=== PATIENT | female | born 1955 | race Two or more races ===

== ENCOUNTER 2024-12-07 12:51 | Inpatient (IN) | payer MEDICARE, MEDICAID, SELFPAY ==
[2024-12-07] VITALS (9 sets, daily range): BP systolic 133–169; BP diastolic 74–96; PULSE 74–108; RESP 17–24; TEMP 36.2–36.8; O2SAT 92–96
--- NOTE | 2024-12-07 13:01 | EKG_ITS ---
[facility] (Formerly [facility]) Test Date: 2024-12-07 Pat Name: ORESTES YEPEZ Department: Room: - Gender: Female Pediatric Physical Therapist: : 1955 Requested By: José Miguel العراقي Order Number: [id number] Reading MD: José Miguel العراقي Measurements Intervals Dexter Rate: 96 P: 35 IA: 149 QRS: 15 QRSD: 80 T: 29 QT: 346 QTc: 439 Interpretive Statements SINUS RHYTHM No previous ECG available for comparison /store/S0/[id number]/ecg/[id number].pdf
--- NOTE | 2024-12-07 13:01 | XR_ITS ---
Examination: AP chest single view Technique: AP portable semiupright chest single view Date and time: December 07, 2024 1325 hrs. Comparison November 24, 2024 Indications: Shortness of breath coughing beginning 2 days ago. Findings: Mild prominence left ventricle Ectatic thoracic aorta. Minor atelectasis right base. No pneumonia or pulmonary edema Tracheostomy tube tip 5 cm above cele Impression: No pneumonia or pulmonary edema
[2024-12-07] MEDS: SODIUM CHLORIDE 0.9% 1000 ML 1,000 ML 100 ML IV (13:11)
[2024-12-07 13:19] LABS: Basophils % (Auto) 0 % (0-2.5); Eosinophils # (Auto) 0.2 Thou/mm3 (0.0-0.5); Eosinophils % (Auto) 2 % (0-10); Hematocrit 31.1 % (36.0-46.0); Hemoglobin 10.7 g/dL (12.0-16.0); Immature Granulocytes % (Auto) 0 % (0-0); Immature Granulocytes Auto 0.02 Thou/mm3 (0.00-0.00); Lymphocytes % (Auto) 23 % (10-50); Mean Corpuscular HGB Conc 34.4 g/dl (31.0-37.0); Mean Corpuscular Hemoglobin 29.2 pg (25.0-35.0); Mean Corpuscular Volume 85 fL (80-100); Monocytes # (Auto) 0.9 Thou/mm3 (0.0-0.8); Monocytes % (Auto) 10 % (0-12); Neutrophils # (Auto) 5.7 Thou/mm3 (1.8-7.7); Neutrophils % (Auto) 65 % (37-80); Nucleated Red Blood Cell % 0 /100 WBC (0); Platelet Count 269 Thou/mm3 (140-440); RDW Standard Deviation 41.2 fL (36.4-46.3); Red Blood Count 3.67 Miln/mm3 (4.00-5.20); White Blood Count 8.8 Thou/mm3 (3.6-11.0)
[2024-12-07] MEDS: TRANEXAMIC ACID 1,000 MG IVPB 1,000 MG/100 ML BAG 200 MG IV ×2 (13:28→16:14)
--- NOTE | 2024-12-07 13:28 | PC.NURSE ---
Verified with Dr. Chappell to give Tranexamic now not as a PRN for trach bleed.
[2024-12-07 13:29] LABS: Partial Thromboplastin Time 21.4 Seconds (22.0-36.0); Prothrombin Time 11.3 Seconds (9.0-12.2)
[2024-12-07 13:30] LABS: Alanine Aminotransferase 40 U/L (10-49); Albumin/Globulin Ratio 1.3 (1.2-2.2); Alkaline Phosphatase 168 U/L (46-116); Anion Gap 8 (7-16); BUN/Creatinine Ratio 30 Ratio (12-20); Bilirubin,Total 0.3 mg/dL (0.3-1.2); Blood Urea Nitrogen 12 mg/dL (9-23); Calcium 9.5 mg/dL (8.3-10.6); Calcium (Corrected) 9.5 mg/dL (8.5-10.1); Carbon Dioxide 29.4 mMol/L (20.0-31.0); Chloride 97 mMol/L (98-107); Creatinine (Component) 0.4 mg/dL (0.6-1.3); Glucose 109 mg/dL (74-106); Osmolality,Calculated 268 (275-295); Potassium 4.3 mMol/L (3.4-5.1); Sodium 134 mMol/L (136-145); Troponin I < 0.020 ng/mL (0.0-0.045); eGFR > 60 See Note
--- NOTE | 2024-12-07 15:14 | PD.EDADULT ---
ED General RME/HPI General Chief complaint: General Adult/Misc Complain Stated complaint: BLEEDING FROM TRACH AREA SINCE LAST NIGHT Time Seen by Provider: 12/07/24 12:56 Arrival date/time: 12/07/24 12:51 Limitations: no limitations RME / HPI RME / HPI narrative: 69 year old female with history of ICH, seizures, hypertension, chronic respiratory failure, s/p tracheostomy and vent dependant, s/p PEG tube presents to the ED brought in by from the subacute unit within this facility for evaluation of bleeding from tracheostomy beginning last night. No other complaints reported. Related Data Home Medications ?Medication ?Instructions ?Recorded ?Confirmed acetaminophen 325 mg tablet 650 mg G-tube Q6HR PRN Pain 11/10/24 12/08/24 albuterol sulfate 90 mcg/actuation 3 puff INH Q4HRRT PRN Shortness Of 11/10/24 12/08/24 aerosol inhaler (Ventolin HFA) Breath Or Wheeze bisacodyl 10 mg rectal suppository 10 mg MN PRN PRN No BM Per Bowel 11/10/24 12/08/24 (Dulcolax (bisacodyl)) Management Protocol carbamide peroxide 6.5 % ear drops 5 drp otic (ear) Q60D 11/10/24 12/08/24 (Ear Wax Removal Drops) carbamide peroxide 6.5 % ear drops 5 drp otic (ear) Q60D 11/10/24 12/08/24 (Ear Wax Removal Drops) carbamide peroxide 6.5 % ear drops 5 drp otic (ear) Q61D 11/10/24 12/08/24 (Ear Wax Removal Drops) carbamide peroxide 6.5 % ear drops 5 drp otic (ear) Q61D 11/10/24 12/08/24 (Ear Wax Removal Drops) carbamide peroxide 6.5 % ear drops 5 drp otic (ear) Q61D 11/10/24 12/08/24 (Ear Wax Removal Drops) carbamide peroxide 6.5 % ear drops 5 drp otic (ear) Q61D 11/10/24 12/08/24 (Ear Wax Removal Drops) carbamide peroxide 6.5 % ear drops 5 drp otic (ear) Q61D 11/10/24 12/08/24 (Ear Wax Removal Drops) esomeprazole magnesium 40 mg 40 mg G-tube DAILY 11/10/24 12/08/24 capsule,delayed release ipratropium bromide 17 3 puff INH Q4HR PRN Shortness Of 11/10/24 12/08/24 mcg/actuation HFA aerosol inhaler Breath Or Wheeze (Atrovent HFA) lorazepam 2 mg/mL injection 2 mg IVP [id number] PRN Seizure 11/10/24 12/08/24 solution Activity losartan 100 mg tablet 100 mg G-tube HS 11/10/24 12/08/24 magnesium hydroxide 400 mg/5 mL 30 ml G-tube PRN PRN No Bowel 11/10/24 12/08/24 oral suspension (Milk of Magnesia) Movement [id number]-vatbqulr-[id number] 1 ea G-tube QDAY 11/10/24 12/08/24 fumarate 7.5 mg-folic acid 400 mcg tablet sennosides 8.6 mg tablet (Senna 17.2 mg G-tube HS 11/10/24 12/08/24 Laxative) sodium chloride 1,000 mg soluble 1,000 mg G-tube BID 11/10/24 12/08/24 tablet sodium di- and 250 mg G-tube QDAY 11/10/24 12/08/24 monophosphate-potassium phos monobasic 250 mg tablet (Phospha Neutral) sodium phosphates 19 gram-7 133 ml MN PER ORDER PRN Bowel 11/10/24 12/08/24 gram/118 mL enema (Fleet Enema) Management Proocol Previous Rx's ?Medication ?Instructions ?Recorded gentamicin 0.3 % eye drops 1 drp ophthalmic (eye) QID 11/22/24 irritation vs infection 30 days albuterol sulfate 2.5 mg/3 mL 2.5 mg (3 mL) INH Q8HRRT 365 days 11/30/24 (0.083 %) solution for nebulization #1,128 mL Allergies Allergy/AdvReac Type Severity Reaction Status Date / Time No Known Allergies Allergy Verified 10/04/20 09:14 Review of Systems Review of Systems ROS Unobtainable: unobtainable due to medical condition Past Medical History Past Medical History NEUROLOGIC: Positive Neurological Disorders, Cerebrovascular Accident and Seizures CARDIAC: Positive Cardiac Disorders and Hypertension GASTROINTESTINAL: Positive Gastrointestinal Disorders and Gastroesophageal Reflux Disease MUSCULOSKELETAL: Positive Musculoskeletal Disorders ENT: Positive Ear Infection (left otitis externa and mild left otitis media) OTHER HISTORY: Positive Hospitalization Surgical History SURGICAL: Positive Abdominal Surgery and Tracheostomy Social History SMOKING STATUS: Never smoker SECOND HAND EXPOSURE: No ED Exam General Limitations: Present no limitations General appearance: Present other (chronically ill appearing, contracted) Head Head exam: Present atraumatic, normocephalic and normal inspection Eye Eye exam: Present normal appearance, PERRL and EOMI ENT ENT exam: Present normal exam, normal oropharynx and mucous membranes moist Neck Neck exam: Present full ROM and other (tracheostomy in place ) Chest Chest inspection: Present normal inspection and symmetric chest wall rise Respiratory Respiratory exam: Present normal lung sounds bilaterally Cardiovascular Cardiovascular exam: Present regular rate, normal rhythm and normal heart sounds Abdominal Exam Abdominal exam: Present soft, normal bowel sounds and other (PEG in place ) Extremities Exam Extremities exam: Present other (contracted ) Back Exam Back exam: Present normal inspection and full ROM Skin Skin exam: Present warm, dry, intact and normal color Course Quality Measures none Orders Category Date Time Status COVID-19 Screening Questionnaire NOW Care 12/07/24 16:48 Active Superintendent Logging NOW Care 12/07/24 13:01 Active Continuous Pulse Oximetry NOW Care 12/07/24 13:01 Completed Decision to Admit X1 Care 12/07/24 16:48 Completed EKG (ED ONLY) *Do not use* NOW Care 12/07/24 13:01 Completed Insert IV NOW Care 12/07/24 13:01 Active Consult to Pulmonology Stat Cons 12/07/24 16:48 Ordered Referral Respiratory Therapy Stat Cons 12/07/24 13:01 Active EKG (ED Only) Stat Exams 12/07/24 13:01 Draft XR chest 1V portable Stat Exams 12/07/24 13:01 Completed CBC Stat Lab 12/07/24 13:00 Completed Comprehensive Metabolic Panel Stat Lab 12/07/24 13:00 Completed Partial Thromboplastin Time Stat Lab 12/07/24 13:00 Completed Prothrombin Time with INR Stat Lab 12/07/24 13:00 Completed Troponin I Stat Lab 12/07/24 13:00 Completed Urinalysis Stat Lab 12/07/24 17:45 Completed Sodium Chloride 0.9% 1000 ml [Ns] 1,000 ml Med 12/07/24 13:01 Discontinued IV 100 mls/hr Tranexamic Acid 1,000 mg Ivpb [Tranexamic Acid Ivpb] Med 12/07/24 13:02 Discontinued 1,000 mg in 100 ml IV [id number] Oxygen Delivery NOW RT 12/07/24 13:01 Active Vital Signs Vital signs: Vital Signs Temperature 97.9 F 12/07/24 12:53 Pulse Rate 108 H 12/07/24 12:53 Respiratory Rate 20 12/07/24 12:53 Blood Pressure 148/90 H 12/07/24 12:53 Pulse Oximetry (%) 95 12/07/24 12:53 Oxygen Delivery Method Blow-by 12/07/24 12:53 Critical Care Time Critical Care Time Critical Care Time: Yes Total Critical Care Time (min.): 60 Attestation: The high probability of sudden, clinically significant deterioration in the patient's condition required the highest level of my preparedness to intervene urgently. The services I provided to this patient were to treat and/or prevent clinically significant deterioration. Services included the following: chart data review, reviewing nursing notes and/or old charts, documentation time, clinical documentation consultant collaboration regarding findings and treatment options, medication orders and management, direct patient care, vital sign assessments and ordering, interpreting and reviewing diagnostic studies and lab tests. Aggregate critical care time includes only time during which I was engaged in work directly related to the patient's care, as described above, whether at bedside or elsewhere in the Emergency Department. It did not include time spent performing other reported procedures or the services of residents, students, nurses or physician assistants. Discharge Plan Plan Patient Disposition: Admit Acute Care w/in Hospital Problem List Clinical Impression: Hemoptysis, Chronic respiratory failure requiring continuous mechanical ventilation through tracheostomy [facility] Narrative [facility] hospital course: IMireya am scribing for and in the presence of Dr. Chappell. Clinical Information Provided by other: History obtained by nursing staff at [facility] Medical Records Reviewed [facility] (I reviewed progress note from Dr. Kenney at 12/03/2024 ) Meds/Rx Considered, not Ordered None Labs/Rad/Tests considered, not Ordered None Chronic Illness/Social Conditions which may negatively complicate care or outcome(s)-explain: Cognitively impaired and senior care/debilitated EKG Interpretation EKG #1: Date/time of EK12/07/24 13:59 EKG interpretation: Sinus rhythm, rate 96, no STEMI, MN 149ms, QRS 80ms, QT/QTc 346/400ms. Lab Interpretation Labs: interpreted by nc Lab(s) interpretation(s): No leukocytosis Imaging Imaging interpretation: interpreted by nc Radiology reports / interpretation(s): Ordering Physician: José Miguel Chappell MD Date of Service: 12/07/24 Procedure(s): XR chest 1V portable Accession Number(s): [id number] cc: José Miguel Chappell MD; Jose Antonio Proctor MD~ Examination: AP chest single view Technique: AP portable semiupright chest single view Date and time: December 07, 2024 1325 hrs. Comparison November 24, 2024 Indications: Shortness of breath coughing beginning 2 days ago. Findings: Mild prominence left ventricle Ectatic thoracic aorta. Minor atelectasis right base. No pneumonia or pulmonary edema Tracheostomy tube tip 5 cm above cele Impression: No pneumonia or pulmonary edema Dictated By: Jose Antonio Proctor MD Signed By: <Electronically signed by Jose Antonio Proctor MD in OV> 12/07/24 1524 Medication Administration(s) Medication Administration History Clotrimazole (Clotrimazole Cr 1% 30 Gm Tube) 0 gm TOP BID PENDING SALE TO [facility] Stop: 01/06/25 20:59 Last Admin: 12/08/24 08:11 Dose: 1 appln Documented By: Admin: 12/07/24 21:13 Dose: 1 gram Documented By: BD Comments: MULTI USE TOPICAL CREAM Sodium Chloride (Ns) 1,000 mls @ 75 mls/hr IV .[id number] POLLO Stop: 01/06/25 17:20 Last Admin: 12/08/24 02:16 Dose: 75 mls/hr Documented By: [facility] Admin: 12/07/24 21:09 Dose: Not Given Documented By: BD Non-Admin Reason: Duplicate Medication on eMAR Fluconazole (Diflucan/Ns Ivpb) 200 mg in 100 mls @ 100 mls/hr IV QDAY POLLO Stop: 12/14/24 17:21 Last Admin: 12/08/24 08:10 Dose: 100 mls/hr Documented By: Infusion: 12/07/24 21:08 Dose: Infused Documented By: Admin: 12/07/24 19:49 Dose: 100 mls/hr Documented By: BD Lorazepam (Lorazepam 2 Mg/Ml Vial) 2 mg IVP Q5MIN PRN PRN Reason: Seizure Activity Stop: 12/12/24 17:32 Losartan Potassium (Losartan Potassium 25 Mg Tablet) 100 mg GT DAILY PENDING SALE TO [facility] Stop: 01/06/25 17:29 Last Admin: 12/08/24 08:10 Dose: 100 mg Documented By: Admin: 12/07/24 19:49 Dose: 100 mg Documented By: BD Moxifloxacin HCl (Moxifloxacin Op Day 0.5% 3 Ml Btl) 1 drop BOTH EYES QID PENDING SALE TO [facility] Stop: 01/06/25 20:59 Last Admin: 12/08/24 05:06 Dose: 1 drop Documented By: Admin: 12/07/24 21:12 Dose: 1 drop Documented By: GUY Pantoprazole Sodium (Pantoprazole Inj 40 Mg Vial) 40 mg IVP QDAY PENDING SALE TO [facility] Stop: 01/07/25 08:59 Last Admin: 12/08/24 08:10 Dose: 40 mg Documented By: DEBRA Discontinued Medications Tranexamic Acid (Tranexamic Acid Ivpb) 1,000 mg in 100 mls @ 200 mls/hr IV PRNMRX1 PRN PRN Reason: BLEEDING Last Infusion: 12/07/24 16:44 Dose: Infused Documented By: Admin: 12/07/24 16:14 Dose: 200 mls/hr Documented By: Infusion: 12/07/24 15:27 Dose: Infused Documented By: Admin: 12/07/24 13:28 Dose: 200 mls/hr Documented By: SARKIS Sodium Chloride (Ns) 1,000 mls @ 100 mls/hr IV .Q10H ONE Stop: 12/07/24 23:00 Last Infusion: 12/08/24 02:21 Dose: Infused Documented By: Infusion: 12/07/24 19:37 Dose: 75 mls/hr Documented By: Admin: 12/07/24 13:11 Dose: 100 mls/hr Documented By: SARKIS See above Consultations/Discussions re: Management Consult #1: Date/time: 12/07/24 4:43 pm Physician, specialty, service, details: I spoke with link knitting machine operator Dr. Mullins. Discussed patients PMHx, HPI, ED course, exam findings, labs, and radiology results. States she will perform a bronchoscopy tomorrow and agrees to consult. Consult #2: Date/time: 12/07/24 4:48 pm Physician, specialty, service, details: I spoke with resident working with Dr. Rey. Discussed patients PMHx, HPI, ED course, exam findings, labs, and radiology results. The hospitalist agree to accept the patient for admission. Diagnosis Most likely dx, and/or detailed dx discussion: Hemoptysis Chronic respiratory failure Trach with ventilator dependance Dispositon Disposition: Admit
--- NOTE | 2024-12-07 16:17 | PC.NURSE ---
Verified with pharmacy and Dr. Chappell patient okay to receive second gram of Tranexamic for PRN order. Patient still having some bleeding to trach.
--- NOTE | 2024-12-07 17:29 | PD.RESHP ---
Documentation for date of: 12/07/24 HPI History of Present Illness History of present illness: 65-year-old female with past medical history of seizures, intracerebral hemorrhage, chronic respiratory failure s/p trach & PEG, hypertension who was brought to the ED from subacute facility after intermittent bleeding was noted through tracheostomy since yesterday. Today blood amount increased so she was brought to the ED. ED course: On arrival patients BP: 148/90, HR 108, Rest of vitals within normal limits. Patient's baseline hemoglobin appears to be around 13, today 10.7. Rest unremarkable. While on the ED patient had 100 cc of blood suctioned. She received 2gr of TXA and 1L NS. ED consulted auto wash buffer Dr Mullins, who recommended bronchoscopy tomorrow. Review of Systems Review of Systems ROS Unobtainable: unobtainable due to mental status Exam Vital Signs Temp Pulse Resp BP Pulse Ox O2 Del Method O2 Flow Rate 97.8 F 78 18 165/96 H 92 L Blow-by 8 12/07/24 15:04 12/07/24 16:19 12/07/24 16:19 12/07/24 15:04 12/07/24 16:19 12/07/24 13:00 12/07/24 16:19 FiO2 30 12/07/24 16:19 Narrative Exam GENERAL:Contracted, chronically ill appearing, trach/peg, in no acute distress HEENT: Normocephalic, edentulous, Entropion OD, OU conjunctival erythema and purulent discharge, OU cornal opacity NECK: Supple without adenopathy. Tracheostomy tube in place blood noted. Nontender, carotid pulse 2+ bilaterally without bruits, no JVD.? CHEST: Heart rate and rythm normal, no murmurs, gallops auscultated. S1 & 2 normal insensity. Nontender on palpation, no deformity and no crepitus. LUNGS: Coarse breath sounds bilaterally. No intercostal subcostal retraction. Blow by ABDOMEN: Soft,symmetric ,Gastric tube in place. No abnormal masses palpated.? No pulsatile masses or bruits.? Bowel sounds are normoactive in all 4 quadrants. EXTREMITIES: Contracted SKIN: erythematous rash noted on right nsolabial fold Results: Labs 12/08/24 05:15 12/08/24 05:15 Labs: Short CBC 12/07/24 Range/Units 13:00 WBC 8.8 (3.6-11.0) Thou/mm3 Hgb 10.7 L (12.0-16.0) g/dL Hct 31.1 L (36.0-46.0) % Plt Count 269 D (140-440) Thou/mm3 BMP 12/07/24 13:00 Sodium 134 L Potassium 4.3 Chloride 97 L Carbon Dioxide 29.4 BUN 12 Creatinine 0.4 L Glucose 109 H Calcium 9.5 Cardiac Enzymes 12/07/24 Range/Units 13:00 Troponin I < 0.020 (0.0-0.045) ng/mL Liver Function 12/07/24 Range/Units 13:00 Total Bilirubin 0.3 (0.3-1.2) mg/dL ALT 40 (10-49) U/L Alkaline Phosphatase 168 H (46-116) U/L Albumin 4.0 (3.4-4.8) gm/dL Quality Measures Quality Measures none Advance care planning discussed with:: other Medications Home Medications and Allergies Home Medications ?Medication ?Instructions ?Recorded ?Confirmed ?Type acetaminophen 325 mg tablet 650 mg G-tube Q6HR PRN Pain 11/10/24 12/08/24 History albuterol sulfate 90 mcg/actuation 3 puff INH Q4HRRT PRN Shortness Of 11/10/24 12/08/24 History aerosol inhaler (Ventolin HFA) Breath Or Wheeze bisacodyl 10 mg rectal suppository 10 mg MI PRN PRN No BM Per Bowel 11/10/24 12/08/24 History (Dulcolax (bisacodyl)) Management Protocol carbamide peroxide 6.5 % ear drops 5 drp otic (ear) Q60D 11/10/24 12/08/24 History (Ear Wax Removal Drops) carbamide peroxide 6.5 % ear drops 5 drp otic (ear) Q60D 11/10/24 12/08/24 History (Ear Wax Removal Drops) carbamide peroxide 6.5 % ear drops 5 drp otic (ear) Q61D 11/10/24 12/08/24 History (Ear Wax Removal Drops) carbamide peroxide 6.5 % ear drops 5 drp otic (ear) Q61D 11/10/24 12/08/24 History (Ear Wax Removal Drops) carbamide peroxide 6.5 % ear drops 5 drp otic (ear) Q61D 11/10/24 12/08/24 History (Ear Wax Removal Drops) carbamide peroxide 6.5 % ear drops 5 drp otic (ear) Q61D 11/10/24 12/08/24 History (Ear Wax Removal Drops) carbamide peroxide 6.5 % ear drops 5 drp otic (ear) Q61D 11/10/24 12/08/24 History (Ear Wax Removal Drops) esomeprazole magnesium 40 mg 40 mg G-tube DAILY 11/10/24 12/08/24 History capsule,delayed release ipratropium bromide 17 3 puff INH Q4HR PRN Shortness Of 11/10/24 12/08/24 History mcg/actuation HFA aerosol inhaler Breath Or Wheeze (Atrovent HFA) lorazepam 2 mg/mL injection 2 mg IVP PRNMRX1 PRN Seizure 11/10/24 12/08/24 History solution Activity losartan 100 mg tablet 100 mg G-tube HS 11/10/24 12/08/24 History magnesium hydroxide 400 mg/5 mL 30 ml G-tube PRN PRN No Bowel 11/10/24 12/08/24 History oral suspension (Milk of Magnesia) Movement vyzdazhnlkzy-ehuwcwyd-hzdj 1 ea G-tube QDAY 11/10/24 12/08/24 History fumarate 7.5 mg-folic acid 400 mcg tablet sennosides 8.6 mg tablet (Senna 17.2 mg G-tube HS 11/10/24 12/08/24 History Laxative) sodium chloride 1,000 mg soluble 1,000 mg G-tube BID 11/10/24 12/08/24 History tablet sodium di- and 250 mg G-tube QDAY 11/10/24 12/08/24 History monophosphate-potassium phos monobasic 250 mg tablet (Phospha Neutral) sodium phosphates 19 gram-7 133 ml MI PER ORDER PRN Bowel 11/10/24 12/08/24 History gram/118 mL enema (Fleet Enema) Management Proocol Allergies Allergy/AdvReac Type Severity Reaction Status Date / Time No Known Allergies Allergy Verified 10/04/20 09:14 Visit Medications Clotrimazole (Clotrimazole Cr 1% 30 Gm Tube) 0 gm TOP BID POLLO Stop: 01/06/25 20:59 Sodium Chloride (Ns) 1,000 mls @ 75 mls/hr IV .[id number] POLLO Stop: 01/06/25 17:20 Fluconazole (Diflucan/Ns Ivpb) 200 mg in 100 mls @ 100 mls/hr IV QDAY POLLO Stop: 12/14/24 17:21 Losartan Potassium (Losartan Potassium 25 Mg Tablet) 100 mg GT DAILY POLLO Stop: 01/06/25 17:29 Moxifloxacin HCl (Moxifloxacin Op Day 0.5% 3 Ml Btl) 1 drop BOTH EYES QID POLLO Stop: 01/06/25 20:59 Pantoprazole Sodium (Pantoprazole Inj 40 Mg Vial) 40 mg IVP QDAY POLLO Stop: 01/07/25 08:59 Discontinued Medications Tranexamic Acid (Tranexamic Acid Ivpb) 1,000 mg in 100 mls @ 200 mls/hr IV [id number] PRN PRN Reason: BLEEDING Last Infusion: 12/07/24 16:44 Dose: Infused Sodium Chloride (Ns) 1,000 mls @ 100 mls/hr IV .Q10H ONE Stop: 12/07/24 23:00 Last Admin: 12/07/24 13:11 Dose: 100 mls/hr Assessment & Plan Plan 65-year-old female with past medical history of seizures, intracerebral hemorrhage, chronic respiratory failure s/p trach & PEG, hypertension who was brought to the ED from subacute facility after intermittent bleeding was noted through tracheostomy since yesterday. Today blood amount increased so she was brought to the ED. ED course: On arrival patients BP: 148/90, HR 108, Rest of vitals within normal limits. Patient's baseline hemoglobin appears to be around 13, today 10.7. Rest unremarkable. While on the ED patient had 100 cc of blood suctioned. She received 2gr of TXA and 1L NS. ED consulted auto wash buffer Dr Mullins, who recommended bronchoscopy tomorrow. #Acute blood loss anemia #Bleeding through tracheostomy -Patient's baseline hemoglobin appears to be 13 (last august 2024), today 10.7 -Intermittent bleeding noted through tracheostomy -100 cc drainage while on the ED -Source unclear at this time -While on the ED, patient received 2gr TXA + 1L NS -ED consulted auto wash buffer Dr Mullins, who recommended bronchoscopy tomorrow #OU conjunctival erythema and purulent discharge #OD entroprion -Moxifloxacin OU QID #Facial fungal dermatitis -On nasolabial fold -Topical clotrimazole -IV Fluconazole 200 daily #Hypertension -Resumed patients losartan 100 mg daily GT #History of seizures -Only medication on file is lorazepam prn, we will obtain further records to clarify if patient is on antiseizure medications or just PRN Disposition: Patient admitted to telemetry fro management of acute blood loss anemia, bleeding though tracheostomy Diet and fluids:NPO. NS 75 cc/hr DVT prophylaxis:Holding chemical prophylaxis in the setting of acute blood loss GI prophylaxis:Pantoprazole CODE STATUS:FULL CODE Burt:N/A Lines:Peripheral Patient's care discussed with attending physician, Dr Krissy Sandoval MD PGY3 Attending Provider Attestation/Addendum I attest that I was physically present for the evaluation, physical examination, lab and imaging review of the patient with the residents. I discussed the case with the residents and agree with the findings and plans of care as documented above. Patient is a seizure, intracranial hemorrhage, chronic respiratory failure status post tracheostomy and PEG tube, hypertension who presented to the ED from subacute facility after having bleeding from tracheostomy site. In the ED, patient was mildly hypertensive, tachycardic but rest of the vitals were within normal limits. Saturating well on blow-by. She received 2 g of tranexamic acid and 1 L normal saline in the ED. suctioning was done, which had 100 cc of blood produced. On exam contracted, had blood-tinged fluid suctioned from the tracheostomy tube to low intermittent suction. Noted to have erythema and scaling around her face. ED had consulted with the auto wash buffer, who plans to perform bronchoscopy tomorrow. After examination of the patient and review of the clinical data I feel that this patient needs admission to the hospital for further treatment/evaluation of bleeding from the tracheostomy site, anemia. Stevan Rey MD
[2024-12-07 18:43] LABS: Collection Type, Urine Clean Catch; Squamous Epithelial Cell,Urine 0 /hpf (0-5)
[2024-12-07 18:54] LABS: Bacteria,Urine 2+; Bilirubin,Urine Negative (Negative); Blood,Urine Negative (Negative); Clarity,Urine Clear (Clear/Hazy); Color,Urine Lt-Yellow (Lt Yel-Yel); Glucose, Urine Negative (Negative); Ketones,Urine Negative (Negative); Leukocyte Esterase,Urine Positive (Negative); Nitrite,Urine Negative (Negative); PH,Urine 7.5 (5.0-7.0); Protein,Urine Negative (Neg - Trace); RBC,Urine 1 /hpf (0-3); Specific Gravity,Urine 1.011 (1.001-1.035); Urobilinogen,Urine Negative mg/dL (0.0-1.0); WBC,Urine 21 /hpf (0-5)
[2024-12-07] MEDS: LOSARTAN POTASSIUM 25 MG TABLET 100 MG GT (19:49)
[2024-12-07] MEDS: FLUCONAZOLE/NS 200 MG IVPB 200 MG/100 ML BAG 100 MG IV (19:49)
[2024-12-07] MEDS: MOXIFLOXACIN OP SOL 0.5% 3 ML BTL 1 DROP BOTH EYES (21:12)
[2024-12-07] MEDS: CLOTRIMAZOLE CR 1% 30 GM TUBE TOP (21:13)
[2024-12-08] VITALS (67 sets, daily range): BP systolic 101–180; BP diastolic 69–110; PULSE 71–143; RESP 16–150; TEMP 36–37.1; O2SAT 73–100; BMI 25.2
[2024-12-08] MEDS: SODIUM CHLORIDE 0.9% 1000 ML 1,000 ML 75 ML IV ×2 (02:16→17:42)
[2024-12-08] MEDS: MOXIFLOXACIN OP SOL 0.5% 3 ML BTL 1 DROP BOTH EYES ×4 (05:06→21:32)
[2024-12-08 05:53] LABS: Basophils % (Auto) 0 % (0-2.5); Eosinophils # (Auto) 0.1 Thou/mm3 (0.0-0.5); Eosinophils % (Auto) 2 % (0-10); Hematocrit 31.6 % (36.0-46.0); Hemoglobin 10.9 g/dL (12.0-16.0); Immature Granulocytes % (Auto) 0 % (0-0); Lymphocytes # (Auto) 1.4 Thou/mm3 (1.0-4.8); Lymphocytes % (Auto) 19 % (10-50); Mean Corpuscular HGB Conc 34.5 g/dl (31.0-37.0); Mean Corpuscular Hemoglobin 29.3 pg (25.0-35.0); Mean Corpuscular Volume 85 fL (80-100); Monocytes # (Auto) 0.7 Thou/mm3 (0.0-0.8); Monocytes % (Auto) 9 % (0-12); Neutrophils # (Auto) 5.2 Thou/mm3 (1.8-7.7); Neutrophils % (Auto) 70 % (37-80); Nucleated Red Blood Cell % 0 /100 WBC (0); Platelet Count 324 Thou/mm3 (140-440); RDW Standard Deviation 41.7 fL (36.4-46.3); Red Blood Count 3.72 Miln/mm3 (4.00-5.20); White Blood Count 7.5 Thou/mm3 (3.6-11.0)
[2024-12-08 06:21] LABS: Anion Gap 7 (7-16); BUN/Creatinine Ratio 20 Ratio (12-20); Blood Urea Nitrogen 8 mg/dL (9-23); Calcium 9.2 mg/dL (8.3-10.6); Carbon Dioxide 26.9 mMol/L (20.0-31.0); Chloride 97 mMol/L (98-107); Creatinine (Component) 0.4 mg/dL (0.6-1.3); Glucose 96 mg/dL (74-106); Magnesium 1.8 mg/dL (1.6-2.6); Osmolality,Calculated 260 (275-295); Phosphorous 3.3 mg/dL (2.4-5.1); Potassium 4.1 mMol/L (3.4-5.1); Sodium 131 mMol/L (136-145); Thyroid Stimulating Hormone 1.12 uIU/mL (0.55-4.78); eGFR > 60 See Note
[2024-12-08] MEDS: FLUCONAZOLE/NS 200 MG IVPB 200 MG/100 ML BAG 100 MG IV (08:10)
[2024-12-08] MEDS: LOSARTAN POTASSIUM 25 MG TABLET 100 MG GT (08:10)
[2024-12-08] MEDS: PANTOPRAZOLE INJ 40 MG VIAL IVP (08:10)
[2024-12-08] MEDS: CLOTRIMAZOLE CR 1% 30 GM TUBE TOP ×2 (08:11→21:33)
--- NOTE | 2024-12-08 09:44 | PD.RESPRO ---
Documentation for date of: 12/08/24 Subjective Subjective Interval history: No acute overnight events reported. Patient seen and examined at bedside this morning. Per daughter patient had a hemorrhagic stroke in 2012 which resulted in patient to be vent dependent and has been at [facility] subacute since 2012, per daughter patient was able to communicate and participate in activities at the subacute however late 2023 patient meningitis and since August 2024 patient is no longer able to communicate or respond to verbal stimuli. Patient underwent bronchoscopy which showed friable mucosa and large areas of submucosal hemorrhage and the bleeding stopped with cold saline. Morning labs showed sodium of 131 however patient's tube feeds were on hold due to scheduled bronchoscopy, will resume tube feeds and continue to monitor labs. Patient's daughter is at bedside and is updated with current management and plan. Patient will likely be discharged back to subacute tomorrow. Exam Vital Signs Temp Pulse Resp BP Pulse Ox O2 Del Method O2 Flow Rate 97.2 F 80 23 H 156/97 H 98 Blow-by 8 12/08/24 08:00 12/08/24 08:10 12/08/24 08:00 12/08/24 08:10 12/08/24 08:00 12/08/24 08:00 12/08/24 08:00 FiO2 30 12/07/24 18:39 Narrative Exam GENERAL:Contracted, chronically ill appearing, trach/peg, grimaces to painful stimuli only. HEENT: Normocephalic, edentulous, Entropion OD, OU conjunctiva erythema and purulent discharge, OU cornal opacity NECK: Supple without adenopathy. Tracheostomy tube with erythema noted on the skin around the trach tube. Nontender, carotid pulse 2+ bilaterally without bruits, no JVD.? CHEST: Heart rate and rythm normal, no murmurs, gallops auscultated. S1 & 2 normal insensity. Nontender on palpation, no deformity and no crepitus. LUNGS: Coarse breath sounds bilaterally. No intercostal subcostal retraction. Blow by ABDOMEN: Soft,symmetric ,Gastric tube in place. No abnormal masses palpated.? No pulsatile masses or bruits.? Bowel sounds are normoactive in all 4 quadrants. EXTREMITIES: Contracted upper and lower extremities SKIN: erythematous rash noted on right nasolabial fold Objective Labs 12/09/24 04:26 12/09/24 04:26 Labs: Laboratory Results - last 24 hr 12/07/24 12/07/24 12/08/24 13:00 17:45 05:15 WBC 8.8 7.5 RBC 3.67 L 3.72 L Hgb 10.7 L 10.9 L Hct 31.1 L 31.6 L MCV 85 85 MCH 29.2 29.3 MCHC 34.4 34.5 RDW Std Deviation 41.2 41.7 Plt Count 269 D 324 D Neut % (Auto) 65 70 Lymph % (Auto) 23 19 [place] % (Auto) 10 9 Eos % (Auto) 2 2 Baso % (Auto) 0 0 Neut # (Auto) 5.7 5.2 Lymph # (Auto) 2.0 1.4 [place] # (Auto) 0.9 H 0.7 Eos # (Auto) 0.2 0.1 Baso # (Auto) 0.0 0.0 Immature Gran # (Auto) 0.02 H 0.00 Absolute Nucleated RBC 0.00 0.00 Immature Gran % 0 0 Nucleated RBC % 0 0 PT 11.3 INR 1.0 APTT 21.4 L Sodium 134 L 131 L Potassium 4.3 4.1 Chloride 97 L 97 L Carbon Dioxide 29.4 26.9 Anion Gap 8 7 BUN 12 8 L Creatinine 0.4 L 0.4 L Estim Creat Clear Calc Not Performed. Not Performed. eGFR > 60 > 60 BUN/Creatinine Ratio 30 H 20 Glucose 109 H 96 Calculated Osmolality 268 L 260 L Calcium 9.5 9.2 Corrected Calcium 9.5 Phosphorus 3.3 Magnesium 1.8 Total Bilirubin 0.3 ALT 40 Alkaline Phosphatase 168 H Troponin I < 0.020 Total Protein 7.0 Albumin 4.0 Globulin 3.0 Albumin/Globulin Ratio 1.3 TSH 1.12 Ur Collection Type Clean Catch Urine Color Lt-Yellow Urine Clarity Clear Urine pH 7.5 H Ur Specific [place] 1.011 Urine Protein Negative Urine Glucose (UA) Negative Urine Ketones Negative Urine Blood Negative Urine Nitrite Negative Urine Bilirubin Negative Urine Urobilinogen (Auto) Negative Ur Leukocyte Esterase Positive Urine RBC 1 Urine WBC 21 H Ur Squamous Epith Cells 0 Urine Bacteria 2+ A Quality Measures Quality Measures none Advance care planning discussed with:: patient Assessment & Plan Assessment Current Active Medications: Generic Name Dose Route Start Last Admin Trade Name Freq PRN Reason Stop Dose Admin Clotrimazole 0 gm 12/07/24 21:00 12/08/24 08:11 Clotrimazole Cr 1% 30 Gm Tube TOP 01/06/25 20:59 1 appln BID POLLO Administration Sodium Chloride 1,000 mls @ 75 mls/hr 12/07/24 17:21 12/08/24 02:16 Ns IV 01/06/25 17:20 75 mls/hr .[id number] POLLO Administration Fluconazole 200 mg in 100 mls @ 100 mls/hr 12/07/24 17:22 12/08/24 08:10 Diflucan/Ns Ivpb IV 12/14/24 17:21 100 mls/hr QDAY POLLO Administration Lorazepam 2 mg 12/07/24 17:33 Lorazepam 2 Mg/Ml Vial IVP 12/12/24 17:32 Q5MIN PRN Seizure Activity Losartan Potassium 100 mg 12/07/24 17:30 12/08/24 08:10 Losartan Potassium 25 Mg Tablet GT 01/06/25 17:29 100 mg DAILY POLLO Administration Moxifloxacin HCl 1 drop 12/07/24 21:00 12/08/24 05:06 Moxifloxacin Op Day 0.5% 3 Ml Btl BOTH EYES 01/06/25 20:59 1 drop QID POLLO Administration Pantoprazole Sodium 40 mg 12/08/24 09:00 12/08/24 08:10 Pantoprazole Inj 40 Mg Vial IVP 01/07/25 08:59 40 mg QDAY POLLO Administration Plan 65-year-old female with past medical history of seizures, intracerebral hemorrhage, chronic respiratory failure s/p trach & PEG, hypertension who was brought to the ED from subacute facility after intermittent bleeding was noted through tracheostomy since yesterday. Today blood amount increased so she was brought to the ED. ED course: On arrival patients BP: 148/90, HR 108, Rest of vitals within normal limits. Patient's baseline hemoglobin appears to be around 13, today 10.7. Rest unremarkable. While on the ED patient had 100 cc of blood suctioned. She received 2gr of TXA and 1L NS. ED consulted aeronautics commission director Dr Mullins, who recommended bronchoscopy tomorrow. #Acute blood loss anemia #Bleeding through tracheostomy s/p broncoscopy -Patient's baseline hemoglobin appears to be 13 (last august 2024), today 10.7 -Intermittent bleeding noted through tracheostomy, there was 100cc of bloody output in the ED -100 cc drainage while on the ED -Source unclear at this time -While on the ED, patient received 2gr TXA + 1L NS -ED consulted aeronautics commission director Dr Mullins, Patient underwent bronchoscopy on 12/08 which showed friable mucosa with large areas of submucosal hemorrhage. The bleeding was stopped with cold saline. #OU conjunctival erythema and purulent discharge #OD entroprion -Moxifloxacin OU QID #Facial fungal dermatitis -On nasolabial fold -Topical clotrimazole -IV Fluconazole 200 daily #Pyuria #Bacteriuria - Unable to determine if patient is symptomatic or not due to patient's mental status -Will order urine cultures and inform the subacute if positive IV antibiotics can be given in the subacute. #Primary Hypertension -Resumed patients losartan 100 mg daily GT #History of seizures -Only medication on file is lorazepam prn -No record of antiepileptic medications Disposition: Patient admitted to telemetry for management of acute blood loss anemia, bleeding through tracheostomy Diet and fluids: tube feeds resumed DVT prophylaxis:Holding chemical prophylaxis in the setting of acute blood loss GI prophylaxis: Pantoprazole CODE STATUS:FULL CODE Assessment and plan discussed with my attending physician Dr. Krissy Saucedo (PGY-1)- Internal medicine resident Attending Provider Attestation/Addendum I attest that I was physically present for the evaluation, physical examination, lab and imaging review of the patient with the residents. I discussed the case with the residents and agree with the findings and plans of care as documented above. Stevan Rey MD
--- NOTE | 2024-12-08 09:52 | PC.SS ---
Follow up note: Pt is from [facility]. Pt has trach and peg. Dr. Mullins will be consulted. Possible Bronchoscopy.
[2024-12-08] MEDS: MIDAZOLAM INJ 1 MG/ML VIAL 2 ML 2 MG IVP (12:03)
--- NOTE | 2024-12-08 13:08 | ESCONSULT_ITS ---
HPI Data of Consult Patient: new to practice Requesting Physician: Stevan Rey MD Admitting Provider: Stevan Rey MD Attending Provider: Stevan Rey MD Primary Care Provider: Physician No Primary/Family Consult Narrative Reason for consult: bronchoscopy History of present illness: 65-year-old female with past medical history of seizures, intracerebral hemorrhage, chronic respiratory failure s/p trach & PEG, hypertension who was brought to the ED from subacute facility after intermittent bleeding was noted through tracheostomy for the past 2 days. In the ED, on arrival patients BP: 148/90, HR 108, Rest of vitals within normal limits. Patient's baseline hemoglobin appears to be around 13, today 10.7. Rest unremarkable. While on the ED patient had 100 cc of blood suctioned. She received 2gr of TXA and 1L NS. ED consulted tapper helper, who recommended bronchoscopy for today. 12/08/2024: Patient seen and examined. Patient's mentation is at baseline. Patient has tracheostomy in place. Patient is comfortable laying down. ET tube has residual blood. Labs and imaging were reviewed. Scheduled bronchoscopy for today. cc:: cc: Stevan Rey MD Exam Vital Signs Temp Pulse Resp BP Pulse Ox O2 Del Method O2 Flow Rate 96.8 F 76 16 130/96 H 98 Blow-by 11 12/08/24 12:00 12/08/24 12:12/08/24 12:12/08/24 12:00 12/08/24 12:00 12/08/24 12:00 12/08/24 12:00 FiO2 30 12/07/24 18:39 Narrative Exam GENERAL:Contracted, chronically ill appearing, trach/peg, grimaces to painful stimuli only. HEENT: Normocephalic, edentulous, eyelid discharge, OU cornal opacity NECK: Supple without adenopathy. Tracheostomy tube with erythema noted on the skin around the trach tube. Nontender, carotid pulse 2+ bilaterally without bruits, no JVD.? CHEST: Heart rate and rythm normal, no murmurs, gallops auscultated. S1 & 2 normal insensity. Nontender on palpation, no deformity and no crepitus. LUNGS: Coarse breath sounds bilaterally. No intercostal subcostal retraction. Blow by ABDOMEN: Soft,symmetric ,Gastric tube in place. No abnormal masses palpated.? No pulsatile masses or bruits.? Bowel sounds are normoactive in all 4 quadrants. EXTREMITIES: Contracted upper and lower extremities SKIN: erythematous rash noted on right nasolabial fold Results Labs 12/09/24 04:26 12/09/24 04:26 Labs: Short CBC 12/07/24 12/08/24 Range/Units 13:00 05:15 WBC 8.8 7.5 (3.6-11.0) Thou/mm3 Hgb 10.7 L 10.9 L (12.0-16.0) g/dL Hct 31.1 L 31.6 L (36.0-46.0) % Plt Count 269 D 324 D (140-440) Thou/mm3 BMP 12/07/24 12/08/24 13:00 05:15 Sodium 134 L 131 L Potassium 4.3 4.1 Chloride 97 L 97 L Carbon Dioxide 29.4 26.9 BUN 12 8 L Creatinine 0.4 L 0.4 L Glucose 109 H 96 Calcium 9.5 9.2 Cardiac Enzymes 12/07/24 Range/Units 13:00 Troponin I < 0.020 (0.0-0.045) ng/mL Liver Function 12/07/24 Range/Units 13:00 Total Bilirubin 0.3 (0.3-1.2) mg/dL ALT 40 (10-49) U/L Alkaline Phosphatase 168 H (46-116) U/L Albumin 4.0 (3.4-4.8) gm/dL Urine 12/07/24 Range/Units 17:45 Urine Color Lt-Yellow (Lt Yel-Yel) Urine Clarity Clear (Clear/Hazy) Urine pH 7.5 H (5.0-7.0) Ur Specific [place] 1.011 (1.001-1.035) Urine Protein Negative (Neg - Trace) Urine Glucose (UA) Negative (Negative) Quality Measures Quality Measures none Advance care planning discussed with:: other Medications Home Medications and Allergies Home Medications ?Medication ?Instructions ?Recorded ?Confirmed ?Type acetaminophen 325 mg tablet 650 mg G-tube Q6HR PRN Xavier n 11/10/24 12/08/24 History albuterol sulfate 90 mcg/actuation 3 puff INH Q4HRRT P RN Shortness Of 11/10/24 12/08/24 History aerosol inhaler (Ventolin HFA) Breath Or Wheeze bisacodyl 10 mg rectal suppository 10 mg AR PRN PRN No BM Per Bowel 11/10/24 12/08/24 History (Dulcolax (bisacodyl)) Management Protocol carbamide peroxide 6.5 % ear drops 5 drp otic (ear) Q6 0D 11/10/24 12/08/24 History (Ear Wax Removal Drops) carbamide peroxide 6.5 % ear drops 5 drp otic (ear) Q6 0D 11/10/24 12/08/24 History (Ear Wax Removal Drops) carbamide peroxide 6.5 % ear drops 5 drp otic (ear) Q6 1D 11/10/24 12/08/24 History (Ear Wax Removal Drops) carbamide peroxide 6.5 % ear drops 5 drp otic (ear) Q6 1D 11/10/24 12/08/24 History (Ear Wax Removal Drops) carbamide peroxide 6.5 % ear drops 5 drp otic (ear) Q6 1D 11/10/24 12/08/24 History (Ear Wax Removal Drops) carbamide peroxide 6.5 % ear drops 5 drp otic (ear) Q6 1D 11/10/24 12/08/24 History (Ear Wax Removal Drops) carbamide peroxide 6.5 % ear drops 5 drp otic (ear) Q6 1D 11/10/24 12/08/24 History (Ear Wax Removal Drops) esomeprazole magnesium 40 mg 40 mg G-tube DAILY 12/08/24 History capsule,delayed release ipratropium bromide 17 3 puff INH Q4HR PRN Shortnes s Of 11/10/24 12/08/24 History mcg/actuation HFA aerosol inhaler Breath Or Wheeze (Atrovent HFA) lorazepam 2 mg/mL injection 2 mg IVP [id number] PRN Seizu re 11/10/24 12/08/24 History solution Activity losartan 100 mg tablet 100 mg G-tube HS 11/10/24 History magnesium hydroxide 400 mg/5 mL 30 ml G-tube PRN PRN N o Bowel 11/10/24 12/08/24 History oral suspension (Milk of Magnesia) Movement okriggyyklre-kujlbbry-cucl 1 ea G-tube QDAY 11/10/24 0 12/08/24 History fumarate 7.5 mg-folic acid 400 mcg tablet sennosides 8.6 mg tablet (Senna 17.2 mg G-tube HS 10/3012/08/24 History Laxative) sodium chloride 1,000 mg soluble 1,000 mg G-tube BID 0 11/10/24 12/08/24 History tablet sodium di- and 250 mg G-tube QDAY 11/10/24 12/08/24 History monophosphate-potassium phos monobasic 250 mg tablet (Phospha Neutral) sodium phosphates 19 gram-7 133 ml AR PER ORDER PRN Jamie wel 11/10/24 12/08/24 History gram/118 mL enema (Fleet Enema) Management Proocol Allergies Allergy/AdvReac Type Severity Reaction Status Date / Time No Known Allergies Allergy Verified 10/04/20 09:14 Visit Medications Clotrimazole (Clotrimazole Cr 1% 30 Gm Tube) 0 gm TOP BID POLLO Stop: 01/06/25 20:59 Last Admin: 12/08/24 08:11 Dose: 1 appln Sodium Chloride (Ns) 1,000 mls @ 75 mls/hr IV .[id number] POLLO Stop: 01/06/25 17:20 Last Admin: 12/08/24 02:16 Dose: 75 mls/hr Fluconazole (Diflucan/Ns Ivpb) 200 mg in 100 mls @ 100 mls/hr IV QDAY POLLO Stop: 12/14/24 17:21 Last Admin: 12/08/24 08:10 Dose: 100 mls/hr Lorazepam (Lorazepam 2 Mg/Ml Vial) 2 mg IVP Q5MIN PRN PRN Reason: Seizure Activity Stop: 12/12/24 17:32 Losartan Potassium (Losartan Potassium 25 Mg Tablet) 100 mg GT DAILY POLLO Stop: 01/06/25 17:29 Last Admin: 12/08/24 08:10 Dose: 100 mg Moxifloxacin HCl (Moxifloxacin Op Day 0.5% 3 Ml Btl) 1 drop BOTH EYES QID POLLO Stop: 01/06/25 20:59 Last Admin: 12/08/24 12:17 Dose: 1 drop Pantoprazole Sodium (Pantoprazole Inj 40 Mg Vial) 40 mg IVP QDAY POLLO Stop: 01/07/25 08:59 Last Admin: 12/08/24 08:10 Dose: 40 mg Discontinued Medications Tranexamic Acid (Tranexamic Acid Ivpb) 1,000 mg in 100 mls @ 200 mls/hr IV [id number] PRN PRN Reason: BLEEDING Last Infusion: 12/07/24 16:44 Dose: Infused Sodium Chloride (Ns) 1,000 mls @ 100 mls/hr IV .Q10H ONE Stop: 12/07/24 23:00 Last Infusion: 12/08/24 02:21 Dose: Infused Lidocaine HCl (Lidocaine Hcl 1% 20 Ml Vial) 10 ml INFL X1 ONE Stop: 12/08/24 11:28 Midazolam HCl (Midazolam Inj 1 Mg/Ml Vial 2 Ml) 2 mg IVP X1 ONE Stop: 12/08/24 11:58 Last Admin: 12/08/24 12:03 Dose: 2 mg Assessment & Plan Plan Summary:65-year-old female with past medical history of seizures, intracerebral hemorrhage, chronic respiratory failure s/p trach & PEG, hypertension who was brought to the ED from subacute facility after intermittent bleeding was noted through tracheostomy. Tranfered to the ICU for bronchoscopy. Assessment and plan: LENS MOUNTER: #History of seizures Plan: Lorazepam as needed Cardio: No acute problems Pulm: #Acute hemoptysis #Chronic respiratory failure on mechanical ventilation via tracheostomy etiology of the hemoptysis remains unclear, from the initial bronchoscopy showed submucosal hemorrhage. Differential diagnoses include bronchiectasis which are known to cause submucosal plexus hemorrhages, mycetoma's which are usually due to Aspergillus, pneumonia is also a cause of submucosal hemorrhage specifically in the presence of staph. Etiology of patient's chronic ventilator is due to a intracranial hemorrhage. Patient came in due to bleeding through tracheostomy tube. Transferred to the ICU for bronchoscopy Plan: - Bronchoscopy planned - Please see bronchoscopy note for further details GI: PEG tube placement, no acute problems Renal: No acute problems Endo: No acute problems Heme: # Blood loss anemia, acute There is decrease in hemoglobin from baseline likely secondary to bleeding secondary to hemoptysis Plan: - Monitor CBC ID: #[id number] Urinalysis consistent with UTI unable to assess if the patient symptomatic due to mental status. Plan: Pending urine culture #Facial fungal dermatitis Plan: -Topical clotrimazole -IV Fluconazole 200 daily Skin/MSK: #Facial dermatitis Plan: See above ICU Health maintenance: Mechanical ventilation: ACVC Sedation: none FEN: PEG tube feeds DVT ppx: hold due to hemoptysis GI ppx: none Burt: yes IV lines: 2 Central line: 0 Arterial line:0 Code status: full code Dispo: upgraded to icu for hemoptysis - Patient's care was discussed with my attending physician, Dr. Harpreet Roy MD Internal Medicine PGY-3 Attending Provider Attestation/Addendum Patient seen and examined with resident, agree with above. In brief this is a 69-year-old female admitted from the ER for hemoptysis. ICU consult was requested for bronchoscopy. She has a history of chronic respiratory failure and is normally on blow-by. She has recently been noted to have some blood- tinged secretions and in the ER some frankly bloody sputum. On exam she appears chronically ill, contracted, trach in place, lungs are clear. Consent has been obtained for a bronchoscopy later in the day. case d/w ICU team d/w floor team labs, imaging, records reviewed ~45min required for eval, exam, review, intervention, discussion and formulation of POC for this pt
--- NOTE | 2024-12-08 13:21 | PC.DIETICIAN ---
Nutrition prescription Promote with Fiber at 25 ml/hr via PEG tube by pump. Advance 10 ml every 8 hrs to goal rate of 45 ml/hr x 24 hrs. If no IV fluids, water flushes of 30 ml/hr (or per MD).
[2024-12-08] MEDS: MIDAZOLAM INJ 1 MG/ML VIAL 2 ML IVP (13:41)
[2024-12-08] MEDS: METOPROLOL TARTRATE INJ 1 MG/ML AMP 5 ML 5 MG IVP (13:41)
[2024-12-08] MEDS: LIDOCAINE HCL 1% 20 ML VIAL 10 ML INFL (13:42)
--- NOTE | 2024-12-08 13:47 | PC.SS ---
Pt is from [facility]. Pt is lethargic. SS spoke to Naya from [facility] regarding patient's d/c plan. Patient's dtr, Homa Griffiths and son, Rick Jacobsen are patient's emergency contacts. Pt is total Care and bedbound. Pt has trach and peg. Pt will return to [facility] upon dc. Per Naya, pt is currently on bedhold and pt only requires a PASRR after 7 day bed hold. DC Plan: Return to [facility] Next of Kin: Homa Griffiths, dtr, phone# [phone] or Rick Jacobsen, son, phone# [phone] PCP: Dr. Gonsalez
--- NOTE | 2024-12-08 13:53 | PC.NURSE ---
Bedside bronch. done in the ICU. Pt tolerated well.
--- NOTE | 2024-12-08 13:57 | ESOP_ITS ---
Procedures Procedure Date / Time 12/08/24 3227 Bronchoscopy Bronscopy indication(s): hemoptysis Informed consent obtained from: surrogate Time out done and the following verified: correct patient, side and site, proc edure and patient position Oxygen delivery: 100% FIO2 Trachea: mid appears normal and distal appears normal Radha: sharp in angle RUL & subsegmental branches: other (scattered secretions streaked with blood, few scattered submucosal hemorrhage) RML & subsegmental branches: mucosa appears normal RLL & subsegmental branches: mucosa appears normal GINGER & subsegmental branches: other (tissue very friable in appearance, bleeding with lavage noted, cold saline used for vasoconstriction and bleeding stopped, large areas of submucosal hemorrhage) LLL & subsegmental branches: other (few petechiae noted) Patient tolerated procedure: other (pt initially on blow by and placed on 15lts for procedure however desatted to 88%. Pt was then transferred to ICU to be placed on vent with 100% FiO2 delivery for bronchoscopy, tolerated well at that point) Complications: No
--- NOTE | 2024-12-08 14:14 | PC.RT ---
dr Bennett started bronch around 12 but pts sats went down to 88% so we stopped and placed pt on vent and started bronch again on vent.
--- NOTE | 2024-12-08 16:00 | PC.NURSE ---
Pt having blood come out of trach. Dr. Wilkins and Dr. Rey at bedside. Consulted Dr. Mullins and repeat bronch done emergent. Pt desating oxygen 70s and bronch discontinued and pt transferred to icu for ventilation support and repeat bronch in morning.
--- NOTE | 2024-12-08 18:06 | EVENTNT_ITS ---
Documentation for date of: 12/08/24 Event Note Event Note: Patient had another episode of bleeding inside the tracheostomy tube. Patient is also tachypneic and appears in distress. Suctioning produced bright red blood in small amount. Discussed with the Diesel Power Mechanic, Patient received racemic Epinephrine, also underwent bronchoscopy, no bleeding source was identified. Patient will be transferred to ICU for close monitoring on mechanical ventilator. Stevan Rey MD
[2024-12-08] MEDS: EPINEPHrine RT SOL 0.5 ML NEBU INH (19:32)
[2024-12-08] MEDS: SODIUM CHLORIDE RT SOL 0.9% 3 ML NEBU INH (19:32)
[2024-12-09] VITALS (119 sets, daily range): BP systolic 91–174; BP diastolic 56–131; PULSE 76–107; RESP 3–36; TEMP 36.3–37; O2SAT 90–100; BMI 25.4
[2024-12-09 05:08] LABS: Basophils % (Auto) 0 % (0-2.5); Eosinophils % (Auto) 0 % (0-10); Hemoglobin 10.2 g/dL (12.0-16.0); Immature Granulocytes % (Auto) 1 % (0-0); Lymphocytes # (Auto) 1.3 Thou/mm3 (1.0-4.8); Lymphocytes % (Auto) 7 % (10-50); Mean Corpuscular HGB Conc 32.9 g/dl (31.0-37.0); Mean Corpuscular Volume 88 fL (80-100); Monocytes # (Auto) 0.8 Thou/mm3 (0.0-0.8); Monocytes % (Auto) 4 % (0-12); Neutrophils # (Auto) 16.7 Thou/mm3 (1.8-7.7); Neutrophils % (Auto) 88 % (37-80); Nucleated Red Blood Cell # 0.02 Thou/mm3 (0.00-0.00); Nucleated Red Blood Cell % 0 /100 WBC (0); Platelet Count 331 Thou/mm3 (140-440); RDW Standard Deviation 43.5 fL (36.4-46.3); Red Blood Count 3.52 Miln/mm3 (4.00-5.20)
[2024-12-09 05:24] LABS: Anion Gap 12 (7-16); BUN/Creatinine Ratio 26 Ratio (12-20); Blood Urea Nitrogen 13 mg/dL (9-23); Calcium 8.7 mg/dL (8.3-10.6); Carbon Dioxide 24.9 mMol/L (20.0-31.0); Chloride 98 mMol/L (98-107); Creatinine (Component) 0.5 mg/dL (0.6-1.3); Estimated Creatinine Clearance 77.5 mL/min (>60); Glucose 87 mg/dL (74-106); Magnesium 1.8 mg/dL (1.6-2.6); Osmolality,Calculated 269 (275-295); Phosphorous 3.5 mg/dL (2.4-5.1); Potassium 3.8 mMol/L (3.4-5.1); Sodium 135 mMol/L (136-145); eGFR > 60 See Note
[2024-12-09] MEDS: MOXIFLOXACIN OP SOL 0.5% 3 ML BTL 1 DROP BOTH EYES ×4 (05:42→20:07)
[2024-12-09] MEDS: EPINEPHrine INJ 0.1 MG/ML SYRINGE 10ML 0.2 MG IVP (07:10)
[2024-12-09] MEDS: MIDAZOLAM INJ 1 MG/ML VIAL 2 ML 2 MG IVP (07:31)
[2024-12-09] MEDS: LIDOCAINE INJ PF 2% 5 ML VIAL INFL (07:31)
--- NOTE | 2024-12-09 08:26 | ESPR_ITS ---
Documentation for date of: 12/09/24 Subjective Subjective Interval history: 65-year-old female with past medical history of seizures, intracerebral hemorrhage, chronic respiratory failure s/p trach & PEG, hypertension who was brought to the ED from subacute facility after intermittent bleeding was noted through tracheostomy for the past 2 days. In the ED, on arrival patients BP: 148/90, HR 108, Rest of vitals within normal limits. Patient's baseline hemoglobin appears to be around 13, today 10.7. Rest unremarkable. While on the ED patient had 100 cc of blood suctioned. She received 2gr of TXA and 1L NS. ED consulted sleeve maker, who recommended bronchoscopy for today. 12/08/2024: Patient seen and examined. Patient's mentation is at baseline. Patient has tracheostomy in place. Patient is comfortable laying down. ET tube has residual blood. Labs and imaging were reviewed. Scheduled bronchoscopy for today. 12/09/2024: Overnight patient got racemic epinephrine nebulized x 1. This morning patient nonverbal and on ventilator spontaneous 10/100%. She had repeat bronchoscopy which showed mild bleeding left upper lobe, cold saline and 2 mL liquid epinephrine were applied to achieve hemostasis. Hb decreased to 10.2 from 10.9, WBC increased to 19 from 7.5. Will wean patient off of vent today and switch to blow-by. Once no further episodes of hemoptysis will downgrade to telemetry later in the day. Exam Vital Signs Temp Pulse Resp BP Pulse Ox O2 Del Method O2 Flow Rate 98.4 F 100 27 H 174/80 H 100 Mechanical Ventilation 11 12/09/24 04:00 12/09/24 07:36 12/08/24 22:00 12/09/24 07:36 12/09/24 07:36 12/09/24 07:00 12/08/24 16:00 FiO2 100 12/09/24 07:36 Narrative Exam GENERAL:Contracted, chronically ill appearing, trach/peg, grimaces to painful stimuli only. HEENT: Normocephalic, edentulous, eyelid discharge, OU cornal opacity NECK: Supple without adenopathy. Tracheostomy tube with erythema noted on the skin around the trach tube. Nontender, carotid pulse 2+ bilaterally without bruits, no JVD.? CHEST: Heart rate and rythm normal, no murmurs, gallops auscultated. S1 & 2 normal insensity. Nontender on palpation, no deformity and no crepitus. LUNGS: Coarse breath sounds bilaterally. No intercostal subcostal retraction. Blow by ABDOMEN: Soft,symmetric ,Gastric tube in place. No abnormal masses palpated.? No pulsatile masses or bruits.? Bowel sounds are normoactive in all 4 quadrants. EXTREMITIES: Contracted upper and lower extremities SKIN: erythematous rash noted on right nasolabial fold Objective Labs 12/09/24 04:26 12/09/24 04:26 Labs: Laboratory Results - last 24 hr 12/09/24 04:26 WBC 19.0 H D RBC 3.52 L Hgb 10.2 L Hct 31.0 L MCV 88 MCH 29.0 MCHC 32.9 RDW Std Deviation 43.5 Plt Count 331 Neut % (Auto) 88 H Lymph % (Auto) 7 L [place] % (Auto) 4 Eos % (Auto) 0 Baso % (Auto) 0 Neut # (Auto) 16.7 H Lymph # (Auto) 1.3 [place] # (Auto) 0.8 Eos # (Auto) 0.0 Baso # (Auto) 0.0 Immature Gran # (Auto) 0.10 H Absolute Nucleated RBC 0.02 H Immature Gran % 1 H Nucleated RBC % 0 Sodium 135 L Potassium 3.8 Chloride 98 Carbon Dioxide 24.9 Anion Gap 12 BUN 13 Creatinine 0.5 L Estim Creat Clear Calc 77.5 eGFR > 60 BUN/Creatinine Ratio 26 H Glucose 87 Calculated Osmolality 269 L Calcium 8.7 Phosphorus 3.5 Magnesium 1.8 Quality Measures Quality Measures none Advance care planning discussed with:: other Assessment & Plan Assessment Current Active Medications: Generic Name Dose Route Start Last Admin Trade Name Freq PRN Reason Stop Dose Admin Clotrimazole 0 gm 12/07/24 21:00 12/08/24 21:33 Clotrimazole Cr 1% 30 Gm Tube TOP 01/06/25 20:59 1 appln BID POLLO Administration Sodium Chloride 1,000 mls @ 75 mls/hr 12/07/24 17:21 12/08/24 17:42 Ns IV 01/06/25 17:20 75 mls/hr .[id number] POLLO Administration Fluconazole 200 mg in 100 mls @ 100 mls/hr 12/07/24 17:22 12/08/24 08:10 Diflucan/Ns Ivpb IV 12/14/24 17:21 100 mls/hr QDAY POLLO Administration Lorazepam 2 mg 12/07/24 17:33 Lorazepam 2 Mg/Ml Vial IVP 12/12/24 17:32 Q5MIN PRN Seizure Activity Losartan Potassium 100 mg 12/07/24 17:30 12/08/24 08:10 Losartan Potassium 25 Mg Tablet GT 01/06/25 17:29 100 mg DAILY POLLO Administration Moxifloxacin HCl 1 drop 12/07/24 21:00 12/09/24 05:42 Moxifloxacin Op Day 0.5% 3 Ml Btl BOTH EYES 01/06/25 20:59 1 drop QID POLLO Administration Pantoprazole Sodium 40 mg 12/08/24 09:00 12/08/24 08:10 Pantoprazole Inj 40 Mg Vial IVP 01/07/25 08:59 40 mg QDAY POLLO Administration Sodium Chloride 3 ml 12/08/24 16:49 12/08/24 19:32 Sodium Chloride Rt Day 0.9% 3 Ml Nebu INH 01/07/25 16:48 3 ml PRN PRN Administration SOLN Plan Summary:65-year-old female with past medical history of seizures, intracerebral hemorrhage, chronic respiratory failure s/p trach & PEG, hypertension who was brought to the ED from subacute facility after intermittent bleeding was noted through tracheostomy. Tranfered to the ICU for bronchoscopy. 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 Rx: Will wean patient off of vent today and switch to blow-by. Once no further episodes of hemoptysis will downgrade to telemetry later in the day. GI: PEG tube placement, no acute problems Renal: No acute problems Endo: No acute problems Heme: # Blood loss anemia - stable, acute There is decrease in hemoglobin from baseline likely secondary to bleeding secondary to hemoptysis Plan: - Monitor CBC #Leukocytosis DDx : Likely reactive from bronchoscopy Dx : WBC 7.5 ---> 19 Rx: monitor cbc ID: #[id number] Urinalysis consistent with UTI unable to assess if the patient symptomatic due to mental status. Plan: Pending urine culture #Facial fungal dermatitis Plan: -Topical clotrimazole -IV Fluconazole 200 daily Skin/MSK: #Facial dermatitis Plan: See above ICU Health maintenance: Dispo: Once stable on blow-by for downgrade to telemetry today Diet: NPO DVT ppx: None GI ppx: Protonix 40mg qD Mechanical ventilattion: No Sedation: No IV lines: 2 pIV Central line: No Arterial line: No Burt: No Code status: FULL CODE Plan of care discussed with Attending Dr. Mullins and PGY 3 Dr. Kirill Robertson MD PGY 1 Disclaimer: This note was dictated by speech recognition. Minor errors in water resource engineer may be present due to voice recognition software.
[2024-12-09] MEDS: PANTOPRAZOLE INJ 40 MG VIAL IVP (09:41)
[2024-12-09] MEDS: FLUCONAZOLE/NS 200 MG IVPB 200 MG/100 ML BAG 100 MG IV (09:41)
[2024-12-09] MEDS: LOSARTAN POTASSIUM 25 MG TABLET 100 MG GT (09:41)
[2024-12-09] MEDS: CLOTRIMAZOLE CR 1% 30 GM TUBE TOP ×2 (09:46→20:08)
--- NOTE | 2024-12-09 13:45 | ESPR_ITS ---
Documentation for date of: 12/09/24 Subjective Subjective Interval history: This is a 69-year-old female with a history of ICH and seizures who is status post trach and PEG and a resident of [facility] admitted for evaluation of hemoptysis. On the floor yesterday she had 2 separate episodes with casie blood noted in her trach tubing as well as a few clots. After the first episode a bronchoscopy was performed and an area of bleed was noted on the left upper lobe which was lavaged with cold saline and stopped bleeding. However later in the afternoon she had a repeat episode at that time decision was made to bring her to the ICU for closer evaluation and monitoring. Overnight the patient received 1 round of racemic epi nebulized. She had no additional bleeding overnight. A repeat bronc was performed this morning. An area of submucosal hemorrhage was noted on the left upper lobe with a small amount of bleeding. Cold saline was used to lavage this and then 2 mL of epi were placed for hemostasis. No further bleeding was noted. Patient rosaura stable Critical Care Note Critical care time (min.): 0 Exam Vital Signs Temp Pulse Resp BP Pulse Ox O2 Del Method O2 Flow Rate 97.7 F 88 18 110/71 94 L Mechanical Ventilation 10 12/09/24 08:00 12/09/24 11:36 12/09/24 11:36 12/09/24 09:41 12/09/24 11:36 12/09/24 08:00 12/09/24 11:36 FiO2 35 12/09/24 11:36 Narrative Exam General-no acute distress, chronically ill, contracted, status post trach HEENT-bilateral crusting of her eyes, oral mucosa is hydrated, trach in place Chest-lungs clear to auscultations bilaterally, heart rate and rhythmic, no bruits murmurs Abdomen-soft, nontender, no rebound or guarding Extremities-minimal edema, contracted, no mottling, no clubbing, pulses present Physical Exam Completion Physical Exam Complete?: Yes Objective - Surgical Instrument Repair Specialist Labs 12/09/24 04:26 12/09/24 04:26 Labs: Laboratory Results - last 24 hr 12/09/24 04:26 WBC 19.0 H D RBC 3.52 L Hgb 10.2 L Hct 31.0 L MCV 88 MCH 29.0 MCHC 32.9 RDW Std Deviation 43.5 Plt Count 331 Neut % (Auto) 88 H Lymph % (Auto) 7 L [place] % (Auto) 4 Eos % (Auto) 0 Baso % (Auto) 0 Neut # (Auto) 16.7 H Lymph # (Auto) 1.3 [place] # (Auto) 0.8 Eos # (Auto) 0.0 Baso # (Auto) 0.0 Immature Gran # (Auto) 0.10 H Absolute Nucleated RBC 0.02 H Immature Gran % 1 H Nucleated RBC % 0 Sodium 135 L Potassium 3.8 Chloride 98 Carbon Dioxide 24.9 Anion Gap 12 BUN 13 Creatinine 0.5 L Estim Creat Clear Calc 77.5 eGFR > 60 BUN/Creatinine Ratio 26 H Glucose 87 Calculated Osmolality 269 L Calcium 8.7 Phosphorus 3.5 Magnesium 1.8 Assessment & Plan Additional Plan Additional Plan: In summary is a 69-year-old female admitted to the ICU for hemoptysis a/p Hemoptysis- found to have a small area of submucosal hemorrage on the L which was lavaged with cold saline and finally with 2ml of 1:[id number] epi with hemostasis achieved - check chest CT chronic resp failure- chronic trach on blow by at baseline - doing well - on vent for bronch and able to be taken off after Leukocytosis- likely reactive in nature Anemia- near baseline case d/w ICU Team d/w floor team labs, imaging, records reviewed ~38min required for eval, exam, review , intervention, discussion and formulation of POC for this pt Provider Notation Provider Notation: Although this document has been carefully reviewed, there may still be some phonetic and other typographical errors. These errors are purely grammatical due to imperfections in the software program and should not be construed in any way to compromise the substance of the patient's medical care during this visit. Thank you for the opportunity and privilege in assisting you with this patient's care and management.
--- NOTE | 2024-12-09 13:45 | ESOP_ITS ---
Procedures Procedure Date / Time 12/09/24 4927 Bronchoscopy Bronscopy indication(s): hemoptysis Informed consent obtained from: surrogate Time out done and the following verified: correct patient, side and site, proc edure and patient position Oxygen delivery: 100% FIO2 Trachea: mid appears normal and distal appears normal Radha: sharp in angle RUL & subsegmental branches: other RML & subsegmental branches: mucosa appears normal RLL & subsegmental branches: mucosa appears normal GINGER & subsegmental branches: other (Area of submucosal hemorrhage with some bleeding, this was again lavaged with iced saline, 2 mL of 1:10,000 concentration of epinephrine utilized for hemostasis) LLL & subsegmental branches: mucosa appears normal Patient tolerated procedure: well Complications: No
--- NOTE | 2024-12-09 14:23 | XR_ITS ---
Examination: CT chest, without intravenous contrast. Sagittal and coronal 2-D reconstructions. Exam date and time: December 09, 2024 at 2024 hours INDICATION: Hemoptysis today CTDI:vol (mGy) 18.32 DLP: (mGycm) 579 Technique: Multiple 3.0 mm axial sections of the chest to been obtained. Bone and lung density settings are obtained. Sagittal and coronal 2-D reconstructions have been obtained. Low dose protocols were performed. One or more of the following dose reduction techniques were used; automated exposure control, adjustment of the mA and/or KV according to patient size, use of iterative reconstruction technique. Findings: Tracheal tube tip 2.7 cm above cele Thoracic calcification no aneurysmal dilatation Pulmonary artery segments are not enlarged No paratracheal tracheobronchial or bronchopulmonary adenopathy Diffuse soft opacities throughout the lungs consistent with pneumonia, most prominent pneumonia right base No pulmonary edema No visualized liver or splenic lesion Contracted gallbladder with gallstones No pancreatic mass Bilateral 1 to 2 mm renal calculi Gastrostomy tube tip in the duodenum IMPRESSION: Diffuse bilateral pneumonia, most prominent at right base
--- NOTE | 2024-12-09 16:49 | PC.SS ---
Update: Patient in possession of Trach/PEG tube. Patient on blow-by. Plan is to resume feedings today. Patient is not receiving pressor support. Possible downgrade from ICU today to Tele floor.
--- NOTE | 2024-12-09 17:31 | PD.RESPRO ---
Documentation for date of: 12/09/24 Subjective Subjective Interval history: No acute overnight events reported however yesterday late in the evening patient had bleeding through the trach tube therefore french folder Dr. Mullins decided to upgrade the patient to ICU for closer monitoring and will repeat bronchoscopy this a.m. Patient underwent bronchoscopy this morning and received 2 racemic epinephrine. Close monitoring was provided in the ICU patient is stable to be downgraded to the floor team. Labs are reviewed. Will continue to monitor for any bloody output through the trach tube. Exam Vital Signs Temp Pulse Resp BP Pulse Ox O2 Del Method O2 Flow Rate 98.2 F 101 H 28 H 128/85 H 96 Blow-by 10 12/09/24 16:00 12/09/24 17:00 12/09/24 17:00 12/09/24 17:00 12/09/24 17:00 12/09/24 17:00 12/09/24 16:00 FiO2 35 12/09/24 12:00 Narrative Exam GENERAL:Contracted, chronically ill appearing, trach/peg, grimaces to painful stimuli only. HEENT: Normocephalic, edentulous, Entropion OD, OU conjunctiva erythema and purulent discharge, OU cornal opacity NECK: Supple without adenopathy. Tracheostomy tube with erythema noted on the skin around the trach tube. Nontender, carotid pulse 2+ bilaterally without bruits, no JVD.? CHEST: Heart rate and rythm normal, no murmurs, gallops auscultated. S1 & 2 normal insensity. Nontender on palpation, no deformity and no crepitus. LUNGS: Coarse breath sounds bilaterally. No intercostal subcostal retraction. Blow by ABDOMEN: Soft,symmetric ,Gastric tube in place. No abnormal masses palpated.? No pulsatile masses or bruits.? Bowel sounds are normoactive in all 4 quadrants. EXTREMITIES: Contracted upper and lower extremities SKIN: erythematous rash noted on right nasolabial fold Objective Labs 12/09/24 04:26 12/09/24 04:26 Labs: Laboratory Results - last 24 hr 12/09/24 04:26 WBC 19.0 H D RBC 3.52 L Hgb 10.2 L Hct 31.0 L MCV 88 MCH 29.0 MCHC 32.9 RDW Std Deviation 43.5 Plt Count 331 Neut % (Auto) 88 H Lymph % (Auto) 7 L [place] % (Auto) 4 Eos % (Auto) 0 Baso % (Auto) 0 Neut # (Auto) 16.7 H Lymph # (Auto) 1.3 [place] # (Auto) 0.8 Eos # (Auto) 0.0 Baso # (Auto) 0.0 Immature Gran # (Auto) 0.10 H Absolute Nucleated RBC 0.02 H Immature Gran % 1 H Nucleated RBC % 0 Sodium 135 L Potassium 3.8 Chloride 98 Carbon Dioxide 24.9 Anion Gap 12 BUN 13 Creatinine 0.5 L Estim Creat Clear Calc 77.5 eGFR > 60 BUN/Creatinine Ratio 26 H Glucose 87 Calculated Osmolality 269 L Calcium 8.7 Phosphorus 3.5 Magnesium 1.8 Quality Measures Quality Measures none Advance care planning discussed with:: other Assessment & Plan Assessment Current Active Medications: Generic Name Dose Route Start Last Admin Trade Name Freq PRN Reason Stop Dose Admin Clotrimazole 0 gm 12/07/24 21:00 12/09/24 09:46 Clotrimazole Cr 1% 30 Gm Tube TOP 01/06/25 20:59 1 appln BID POLLO Administration Sodium Chloride 1,000 mls @ 75 mls/hr 12/07/24 17:21 12/09/24 09:09 Ns IV 01/06/25 17:20 Not Given .[id number] POLLO Fluconazole 200 mg in 100 mls @ 100 mls/hr 12/07/24 17:22 12/09/24 09:41 Diflucan/Ns Ivpb IV 12/14/24 17:21 100 mls/hr QDAY POLLO Administration Lorazepam 2 mg 12/07/24 17:33 Lorazepam 2 Mg/Ml Vial IVP 12/12/24 17:32 Q5MIN PRN Seizure Activity Losartan Potassium 100 mg 12/07/24 17:30 12/09/24 09:41 Losartan Potassium 25 Mg Tablet GT 01/06/25 17:29 100 mg DAILY POLLO Administration Moxifloxacin HCl 1 drop 12/07/24 21:00 12/09/24 11:51 Moxifloxacin Op Day 0.5% 3 Ml Btl BOTH EYES 01/06/25 20:59 1 drop QID POLLO Administration Pantoprazole Sodium 40 mg 12/08/24 09:00 12/09/24 09:41 Pantoprazole Inj 40 Mg Vial IVP 01/07/25 08:59 40 mg QDAY POLLO Administration Sodium Chloride 3 ml 12/08/24 16:49 12/08/24 19:32 Sodium Chloride Rt Day 0.9% 3 Ml Nebu INH 01/07/25 16:48 3 ml PRN PRN Administration SOLN Plan 65-year-old female with past medical history of seizures, intracerebral hemorrhage, chronic respiratory failure s/p trach & PEG, hypertension who was brought to the ED from subacute facility after intermittent bleeding was noted through tracheostomy since yesterday. Today blood amount increased so she was brought to the ED. ED course: On arrival patients BP: 148/90, HR 108, Rest of vitals within normal limits. Patient's baseline hemoglobin appears to be around 13, today 10.7. Rest unremarkable. While on the ED patient had 100 cc of blood suctioned. She received 2gr of TXA and 1L NS. ED consulted french folder Dr Mullins, who recommended bronchoscopy tomorrow. #Acute blood loss anemia #Bleeding through tracheostomy s/p broncoscopy -Patient's baseline hemoglobin appears to be 13 (last august 2024), today 10.7 -Intermittent bleeding noted through tracheostomy, there was 100cc of bloody output in the ED -100 cc drainage while on the ED -Source unclear at this time -While on the ED, patient received 2gr TXA + 1L NS -ED consulted french folder Dr Mullins, Patient underwent bronchoscopy on 12/08 which showed friable mucosa with large areas of submucosal hemorrhage. The bleeding was stopped with cold saline. -Repeat bronchoscopy done 12/09, areas of submucosal hemorrhage with some bleeding notediced saline and epinephrine was used for hemostasis #OU conjunctival erythema and purulent discharge #OD entroprion -Moxifloxacin OU QID #Facial fungal dermatitis #vaginal Candidiasis -On nasolabial fold -Topical clotrimazole -IV Fluconazole 200 daily give 12/07-12/09 #Pyuria #Bacteriuria - Unable to determine if patient is symptomatic or not due to patient's mental status -Urine cultures ordered and will inform the subacute if positive IV antibiotics can be given in the subacute. #Primary Hypertension -Resumed patients losartan 100 mg daily GT #History of seizures -Only medication on file is lorazepam prn -No record of antiepileptic medications Disposition: Patient admitted to telemetry for management of acute blood loss anemia, bleeding through tracheostomy Diet and fluids: tube feeds resumed DVT prophylaxis:Holding chemical prophylaxis in the setting of acute blood loss GI prophylaxis: Pantoprazole CODE STATUS:FULL CODE Assessment and plan discussed with my attending physician Dr. Krissy Saucedo (PGY-1)- Internal medicine resident Attending Provider Attestation/Addendum I attest that I was physically present for the evaluation, physical examination, lab and imaging review of the patient with the residents. I discussed the case with the residents and agree with the findings and plans of care as documented above. Stevan Rey MD
[2024-12-10] VITALS (40 sets, daily range): BP systolic 98–194; BP diastolic 60–108; PULSE 70–120; RESP 15–42; TEMP 36.3–37.1; O2SAT 79–100; BMI 25.2
[2024-12-10] MEDS: MOXIFLOXACIN OP SOL 0.5% 3 ML BTL 1 DROP BOTH EYES ×4 (05:09→20:08)
[2024-12-10 06:00] LABS: Basophils % (Auto) 0 % (0-2.5); Eosinophils # (Auto) 0.2 Thou/mm3 (0.0-0.5); Eosinophils % (Auto) 2 % (0-10); Hematocrit 29.2 % (36.0-46.0); Hemoglobin 9.9 g/dL (12.0-16.0); Immature Granulocytes % (Auto) 0 % (0-0); Immature Granulocytes Auto 0.02 Thou/mm3 (0.00-0.00); Lymphocytes # (Auto) 1.2 Thou/mm3 (1.0-4.8); Lymphocytes % (Auto) 12 % (10-50); Mean Corpuscular HGB Conc 33.9 g/dl (31.0-37.0); Mean Corpuscular Hemoglobin 28.9 pg (25.0-35.0); Mean Corpuscular Volume 85 fL (80-100); Monocytes # (Auto) 0.7 Thou/mm3 (0.0-0.8); Monocytes % (Auto) 7 % (0-12); Neutrophils # (Auto) 7.9 Thou/mm3 (1.8-7.7); Neutrophils % (Auto) 79 % (37-80); Nucleated Red Blood Cell % 0 /100 WBC (0); Platelet Count 323 Thou/mm3 (140-440); RDW Standard Deviation 42.4 fL (36.4-46.3); Red Blood Count 3.42 Miln/mm3 (4.00-5.20); White Blood Count 10.1 Thou/mm3 (3.6-11.0)
[2024-12-10 06:17] LABS: Anion Gap 10 (7-16); BUN/Creatinine Ratio 33 Ratio (12-20); Blood Urea Nitrogen 13 mg/dL (9-23); Calcium 9.1 mg/dL (8.3-10.6); Carbon Dioxide 27.6 mMol/L (20.0-31.0); Chloride 96 mMol/L (98-107); Creatinine (Component) 0.4 mg/dL (0.6-1.3); Estimated Creatinine Clearance 96.8 mL/min (>60); Glucose 102 mg/dL (74-106); Magnesium 1.6 mg/dL (1.6-2.6); Osmolality,Calculated 268 (275-295); Phosphorous 2.7 mg/dL (2.4-5.1); Potassium 3.8 mMol/L (3.4-5.1); Sodium 134 mMol/L (136-145); eGFR > 60 See Note
[2024-12-10] MEDS: LOSARTAN POTASSIUM 25 MG TABLET 100 MG GT (08:39)
[2024-12-10] MEDS: POTASSIUM CHLORIDE 10% 20 MEQ/15 ML UDC GT (08:39)
[2024-12-10] MEDS: Magnesium Sulfate 4 GM Ivpb 4 GM/50 ML BAG IV (08:39)
[2024-12-10] MEDS: CLOTRIMAZOLE CR 1% 30 GM TUBE TOP ×2 (08:40→20:07)
[2024-12-10] MEDS: PANTOPRAZOLE INJ 40 MG VIAL IVP (08:40)
--- NOTE | 2024-12-10 10:11 | PC.SS ---
Addendum entered by Jing Smith 12/10/24 11:38: SS was informed by bedside nurse, Prerna pt was transferred to ICU. Original Note: Follow up note: SS has informed Jess from [facility] pt will be returning today and per Naya, Nurse Staff Industrial pt does not require PASRR assessment due to still bedhold (bedhold for 7 days)
--- NOTE | 2024-12-10 11:49 | PD.INTPROC ---
Procedures Procedure Date / Time 12/10/24 1149 Bronchoscopy Bronscopy indication(s): hemoptysis Informed consent obtained from: proc. done emergently Time out done and the following verified: correct patient, side and site, procedure and patient position Oxygen delivery: 100% FIO2 Trachea: mid appears normal and distal appears normal Radha: sharp in angle RUL & subsegmental branches: inflammation RML & subsegmental branches: mucosa appears normal RLL & subsegmental branches: mucosa appears normal GINGER & subsegmental branches: other (again noted area of submucosa hemorrhage and poss erosion but no active brisk bleeding at this time) LLL & subsegmental branches: mucosa appears normal Patient tolerated procedure: well Complications: No Procedure comment: blood suctioned from the airway however no brisk bleeding noted, no definite source however L side is suspected, mucosa is friable
--- NOTE | 2024-12-10 11:51 | ESCONSULT_ITS ---
HPI Data of Consult Patient: known to practice within the last 3 years Consult date: 12/10/24 Requesting Physician: Peter Buckley MD Admitting Provider: Stevan Rey MD Attending Provider: Peter Buckley MD Primary Care Provider: Physician No Primary/Family Consult Narrative Reason for consult: Hemoptysis History of present illness: 65-year-old female with past medical history of seizures, intracerebral hemorrhage, chronic respiratory failure s/p trach & PEG, hypertension who was brought to the ED from subacute facility after intermittent bleeding was noted through tracheostomy for the past 2 days. In the ED, on arrival patients BP: 148/90, HR 108, Rest of vitals within normal limits. Patient's baseline hemoglobin appears to be around 13, today 10.7. Rest unremarkable. While on the ED patient had 100 cc of blood suctioned. She received 2gr of TXA and 1L NS. ED consulted digital cartographic technician, who recommended bronchoscopy for today. 12/10/2024: Patient seen and examined. Patient's mentation is at baseline. Patient has tracheostomy in place. Patient is comfortable laying down. ET tube has residual blood and blood on suctioning. Labs and imaging were reviewed. Scheduled bronchoscopy for today. cc:: cc: Peter Buckley MD Review of Systems Review of Systems ROS Unobtainable: unobtainable due to medical condition Exam Vital Signs Temp Pulse Resp BP Pulse Ox O2 Del Method O2 Flow Rate 97.8 F 96 28 H 152/85 H 100 Blow-by 10 12/10/24 08:00 12/10/24 11:46 12/10/24 08:00 12/10/24 08:39 12/10/24 11:46 12/10/24 08:00 12/10/24 08:00 FiO2 50 12/10/24 11:46 Narrative Exam GENERAL:Contracted, chronically ill appearing, trach/peg, grimaces to painful stimuli only. HEENT: Normocephalic, edentulous, eyelid discharge, OU cornal opacity NECK: Supple without adenopathy. Tracheostomy tube with erythema noted on the skin around the trach tube. Nontender, carotid pulse 2+ bilaterally without bruits, no JVD.? CHEST: Heart rate and rythm normal, no murmurs, gallops auscultated. S1 & 2 normal insensity. Nontender on palpation, no deformity and no crepitus. LUNGS: Coarse breath sounds bilaterally. No intercostal subcostal retraction. Blow by ABDOMEN: Soft,symmetric ,Gastric tube in place. No abnormal masses palpated.? No pulsatile masses or bruits.? Bowel sounds are normoactive in all 4 quadrants. EXTREMITIES: Contracted upper and lower extremities SKIN: erythematous rash noted on right nasolabial fold Results Labs 12/10/24 04:49 12/10/24 04:49 Labs: Short CBC 12/10/24 Range/Units 04:49 WBC 10.1 D (3.6-11.0) Thou/mm3 Hgb 9.9 L (12.0-16.0) g/dL Hct 29.2 L (36.0-46.0) % Plt Count 323 (140-440) Thou/mm3 BMP 12/10/24 04:49 Sodium 134 L Potassium 3.8 Chloride 96 L Carbon Dioxide 27.6 BUN 13 Creatinine 0.4 L Glucose 102 Calcium 9.1 Quality Measures Quality Measures none Advance care planning discussed with:: patient Medications Home Medications and Allergies Home Medications ?Medication ?Instructions ?Recorded ?Confirmed ?Type acetaminophen 325 mg tablet 650 mg G-tube Q6HR PRN Xavier n 11/10/24 12/08/24 History albuterol sulfate 90 mcg/actuation 3 puff INH Q4HRRT P RN Shortness Of 11/10/24 12/08/24 History aerosol inhaler (Ventolin HFA) Breath Or Wheeze bisacodyl 10 mg rectal suppository 10 mg AR PRN PRN No BM Per Bowel 11/10/24 12/08/24 History (Dulcolax (bisacodyl)) Management Protocol carbamide peroxide 6.5 % ear drops 5 drp otic (ear) Q6 0D 11/10/24 12/08/24 History (Ear Wax Removal Drops) carbamide peroxide 6.5 % ear drops 5 drp otic (ear) Q6 0D 11/10/24 12/08/24 History (Ear Wax Removal Drops) carbamide peroxide 6.5 % ear drops 5 drp otic (ear) Q6 1D 11/10/24 12/08/24 History (Ear Wax Removal Drops) carbamide peroxide 6.5 % ear drops 5 drp otic (ear) Q6 1D 11/10/24 12/08/24 History (Ear Wax Removal Drops) carbamide peroxide 6.5 % ear drops 5 drp otic (ear) Q6 1D 11/10/24 12/08/24 History (Ear Wax Removal Drops) carbamide peroxide 6.5 % ear drops 5 drp otic (ear) Q6 1D 11/10/24 12/08/24 History (Ear Wax Removal Drops) carbamide peroxide 6.5 % ear drops 5 drp otic (ear) Q6 1D 11/10/24 12/08/24 History (Ear Wax Removal Drops) esomeprazole magnesium 40 mg 40 mg G-tube DAILY 12/08/24 History capsule,delayed release ipratropium bromide 17 3 puff INH Q4HR PRN Shortnes s Of 11/10/24 12/08/24 History mcg/actuation HFA aerosol inhaler Breath Or Wheeze (Atrovent HFA) lorazepam 2 mg/mL injection 2 mg IVP [id number] PRN Seizu re 11/10/24 12/08/24 History solution Activity losartan 100 mg tablet 100 mg G-tube HS 11/10/24 History magnesium hydroxide 400 mg/5 mL 30 ml G-tube PRN PRN N o Bowel 11/10/24 12/08/24 History oral suspension (Milk of Magnesia) Movement [id number] 1 ea G-tube QDAY 11/10/24 0 12/08/24 History fumarate 7.5 mg-folic acid 400 mcg tablet sennosides 8.6 mg tablet (Senna 17.2 mg G-tube HS 10/3012/08/24 History Laxative) sodium chloride 1,000 mg soluble 1,000 mg G-tube BID 0 11/10/24 12/08/24 History tablet sodium di- and 250 mg G-tube QDAY 11/10/24 12/08/24 History monophosphate-potassium phos monobasic 250 mg tablet (Phospha Neutral) sodium phosphates 19 gram-7 133 ml AR PER ORDER PRN Jamie wel 11/10/24 12/08/24 History gram/118 mL enema (Fleet Enema) Management Proocol Allergies Allergy/AdvReac Type Severity Reaction Status Date / Time No Known Allergies Allergy Verified 10/04/20 09:14 Visit Medications Clotrimazole (Clotrimazole Cr 1% 30 Gm Tube) 0 gm TOP BID [facility] Stop: 01/06/25 20:59 Last Admin: 12/10/24 08:40 Dose: 1 appln Lorazepam (Lorazepam 2 Mg/Ml Vial) 2 mg IVP Q5MIN PRN PRN Reason: Seizure Activity Stop: 12/12/24 17:32 Losartan Potassium (Losartan Potassium 25 Mg Tablet) 100 mg GT DAILY POLLO Stop: 01/06/25 17:29 Last Admin: 12/10/24 08:39 Dose: 100 mg Moxifloxacin HCl (Moxifloxacin Op Day 0.5% 3 Ml Btl) 1 drop BOTH EYES QID POLLO Stop: 01/06/25 20:59 Last Admin: 12/10/24 05:09 Dose: 1 drop Pantoprazole Sodium (Pantoprazole Inj 40 Mg Vial) 40 mg IVP QDAY POLLO Stop: 01/07/25 08:59 Last Admin: 12/10/24 08:40 Dose: 40 mg Sodium Chloride (Sodium Chloride Rt Day 0.9% 3 Ml Nebu) 3 ml INH PRN PRN PRN Reason: SOLN Stop: 01/07/25 16:48 Last Admin: 12/08/24 19:32 Dose: 3 ml Discontinued Medications Epinephrine (Epinephrine Rt Day 0.5 Ml Nebu) 0.5 ml INH X1 ONE Stop: 12/08/24 16:50 Last Admin: 12/08/24 19:32 Dose: 0.5 ml Epinephrine HCl (Epinephrine Inj 0.1 Mg/Ml Syringe 10ml) 2 mg IVP X1 ONE Stop: 12/09/24 08:52 Last Admin: 12/09/24 08:54 Dose: Not Given Epinephrine HCl (Epinephrine Inj 0.1 Mg/Ml Syringe 10ml) 0.2 mg IVP X1 ONE Stop: 12/09/24 08:54 Last Admin: 12/09/24 07:10 Dose: 0.2 mg Tranexamic Acid (Tranexamic Acid Ivpb) 1,000 mg in 100 mls @ 200 mls/hr IV PRNMRX1 PRN PRN Reason: BLEEDING Last Infusion: 12/07/24 16:44 Dose: Infused Sodium Chloride (Ns) 1,000 mls @ 100 mls/hr IV .Q10H ONE Stop: 12/07/24 23:00 Last Infusion: 12/08/24 02:21 Dose: Infused Sodium Chloride (Ns) 1,000 mls @ 75 mls/hr IV .[id number] [facility] Stop: 01/06/25 17:20 Last Admin: 12/09/24 09:09 Dose: Not Given Fluconazole (Diflucan/Ns Ivpb) 200 mg in 100 mls @ 100 mls/hr IV QDAY [facility] Stop: 12/14/24 17:21 Last Admin: 12/09/24 09:41 Dose: 100 mls/hr Magnesium Sulfate (Magnesium Sulfate Ivpb) 4 gm in 50 mls @ 12.5 mls/hr IV X1 ONE Stop: 12/10/24 11:47 Last Admin: 12/10/24 08:39 Dose: 12.5 mls/hr Labetalol HCl (Labetalol Inj 5 Mg/Ml Vial 20 Ml) 5 mg IVP X1 ONE Stop: 12/10/24 11:47 Lidocaine HCl (Lidocaine Hcl 1% 20 Ml Vial) 10 ml INFL X1 ONE Stop: 12/08/24 11:28 Last Admin: 12/08/24 13:42 Dose: 10 ml Lidocaine HCl (Lidocaine Inj Pf 2% 5 Ml Vial) 5 ml INFL X1 ONE Stop: 12/09/24 07:11 Last Admin: 12/09/24 07:31 Dose: 5 ml Lidocaine HCl (Lidocaine Inj Pf 2% 5 Ml Vial) 5 ml EPID X1 ONE Stop: 12/10/24 11:24 Lidocaine HCl (Lidocaine Inj Pf 2% 5 Ml Vial) 5 ml INFL X1 ONE Stop: 12/10/24 11:24 Lorazepam (Lorazepam 2 Mg/Ml Vial) 2 mg IVP X1 ONE Stop: 12/09/24 07:11 Last Admin: 12/09/24 07:33 Dose: Not Given Metoprolol Tartrate (Metoprolol Tartrate Inj 1 Mg/Ml Amp 5 Ml) 5 mg IVP X1 ONE Stop: 12/08/24 13:40 Last Admin: 12/08/24 13:41 Dose: 5 mg Midazolam HCl (Midazolam Inj 1 Mg/Ml Vial 2 Ml) 2 mg IVP X1 ONE Stop: 12/08/24 11:58 Last Admin: 12/08/24 12:03 Dose: 2 mg Midazolam HCl (Midazolam Inj 1 Mg/Ml Vial 2 Ml) 1 mg IVP X1 ONE Stop: 12/08/24 13:40 Last Admin: 12/08/24 13:41 Dose: 1 mg Midazolam HCl (Midazolam Inj 1 Mg/Ml Vial 2 Ml) 2 mg IVP X1 ONE Stop: 12/09/24 07:30 Last Admin: 12/09/24 07:31 Dose: 2 mg Potassium Chloride (Potassium Chloride 10% 20 Meq/15 Ml Udc) 20 meq GT X1 ONE Stop: 12/10/24 07:49 Last Admin: 12/10/24 08:39 Dose: 20 meq Tranexamic Acid (Tranexamic Acid Inj 1,000 Mg/10 Ml Vial) 500 mg INH X1 ONE Stop: 12/10/24 10:16 Assessment & Plan Plan Summary:65-year-old female with past medical history of seizures, intracerebral hemorrhage, chronic respiratory failure s/p trach & PEG, hypertension who was brought to the ED from subacute facility after intermittent bleeding was noted through tracheostomy. Tranfered to the ICU for bronchoscopy. 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 Rx: If any further episodes of bleeding for Nebulized racemic epinephrine x 1. ELMER screen, ANCA screen, antiphospholipid screen, C3, C4, IgA and immunoglobulin panel ordered. Rx: Follow-up on autoimmune and antibody screen. GI: PEG tub insitu Rx: Continue tube feeds as per risk control director instructions Renal: No acute problems Endo: No acute problems Heme: Blood loss anemia - stable, acute DDx:There is decrease in hemoglobin from baseline likely secondary to bleeding secondary to hemoptysis Dx: Hb 10.2 --> 9.9 Leukocytosis DDx : Likely reactive from bronchoscopy Dx : WBC 19 ---> 10.1 Rx: monitor cbc ID: UTI Urinalysis consistent with UTI unable to assess if the patient symptomatic due to mental status. Plan: Pending urine culture Facial fungal dermatitis Plan: -Topical clotrimazole Skin/MSK: Facial dermatitis Plan: See above ICU Health maintenance: Dispo: Admit to ICU for monitoring of hemoptysis and possible further bronchoscopy Diet: Tube Feeds DVT ppx: SCDs GI ppx: Protonix 40mg qD Mechanical ventilattion: Yes. Spont 10/35% Sedation: No IV lines: 2 pIV Central line: No Arterial line: No Burt: No Code status: FULL CODE Plan of care discussed with Attending Dr. Mullins and PGY 3 Dr. Kirill Robertson MD PGY 1
[2024-12-10] MEDS: LABETALOL INJ 5 MG/ML VIAL 20 ML IVP (12:02)
[2024-12-10] MEDS: LIDOCAINE HCL 1% 20 ML VIAL 10 ML INFL (12:06)
--- NOTE | 2024-12-10 13:48 | ESPR_ITS ---
<Statement entered by Peter Buckley MD - 12/19/24 14:58> I reviewed above note and agree with findings and plans. I have also personally examined the patient with medicine team and went over assessment and plan with medical team including grinder set up operator internal and resident physician. Documentation for date of: 12/10/24 Subjective Subjective Interval history: No acute overnight events reported. Patient seen and examined at bedside this morning, patient is on blow-by however there is 160 cc of bloody output noted in the canister. No blood is noted at the trach tube however when RT evaluated and suctioned no blood was expelled but few minutes later patient started having bloody output out of the trach tube. Chief Lock Tender Operator Dr. Mullins decided to upgrade the patient to ICU for repeat bronchoscopy and close monitoring. Exam Vital Signs Temp Pulse Resp BP Pulse Ox O2 Del Method O2 Flow Rate 97.8 F 103 H 28 H 153/93 H 100 Blow-by 10 12/10/24 08:00 12/10/24 12:02 12/10/24 08:00 12/10/24 12:02 12/10/24 11:46 12/10/24 08:00 12/10/24 08:00 FiO2 50 12/10/24 11:46 Narrative Exam GENERAL:Contracted, chronically ill appearing, trach/peg, grimaces to painful stimuli only. HEENT: Normocephalic, edentulous, Entropion OD, OU conjunctiva erythema and purulent discharge, OU cornal opacity NECK: Supple without adenopathy. Tracheostomy tube with erythema noted on the skin around the trach tube. Nontender, carotid pulse 2+ bilaterally without bruits, no JVD.? CHEST: Heart rate and rythm normal, no murmurs, gallops auscultated. S1 & 2 normal insensity. Nontender on palpation, no deformity and no crepitus. LUNGS: Coarse breath sounds bilaterally. No intercostal subcostal retraction. Blow by ABDOMEN: Soft,symmetric ,Gastric tube in place. No abnormal masses palpated.? No pulsatile masses or bruits.? Bowel sounds are normoactive in all 4 quadrants. EXTREMITIES: Contracted upper and lower extremities SKIN: erythematous rash noted on right nasolabial fold - improved Objective Labs 12/10/24 04:49 12/10/24 04:49 Labs: Laboratory Results - last 24 hr 12/10/24 04:49 WBC 10.1 D RBC 3.42 L Hgb 9.9 L Hct 29.2 L MCV 85 MCH 28.9 MCHC 33.9 RDW Std Deviation 42.4 Plt Count 323 Neut % (Auto) 79 Lymph % (Auto) 12 [place] % (Auto) 7 Eos % (Auto) 2 Baso % (Auto) 0 Neut # (Auto) 7.9 H Lymph # (Auto) 1.2 [place] # (Auto) 0.7 Eos # (Auto) 0.2 Baso # (Auto) 0.0 Immature Gran # (Auto) 0.02 H Absolute Nucleated RBC 0.00 Immature Gran % 0 Nucleated RBC % 0 Sodium 134 L Potassium 3.8 Chloride 96 L Carbon Dioxide 27.6 Anion Gap 10 BUN 13 Creatinine 0.4 L Estim Creat Clear Calc 96.8 eGFR > 60 BUN/Creatinine Ratio 33 H Glucose 102 Calculated Osmolality 268 L Calcium 9.1 Phosphorus 2.7 Magnesium 1.6 Quality Measures Quality Measures none Advance care planning discussed with:: patient Assessment & Plan Assessment Current Active Medications: Generic Name Dose Route Start Last Admin Trade Name Freq PRN Reason Stop Dose Admin Clotrimazole 0 gm 12/07/24 21:00 12/10/24 08:40 Clotrimazole Cr 1% 30 Gm Tube TOP 01/06/25 20:59 1 appln BID POLLO Administration Lorazepam 2 mg 12/07/24 17:33 Lorazepam 2 Mg/Ml Vial IVP 12/12/24 17:32 Q5MIN PRN Seizure Activity Losartan Potassium 100 mg 12/07/24 17:30 12/10/24 08:39 Losartan Potassium 25 Mg Tablet GT 01/06/25 17:29 100 mg DAILY POLLO Administration Moxifloxacin HCl 1 drop 12/07/24 21:00 12/10/24 12:03 Moxifloxacin Op Day 0.5% 3 Ml Btl BOTH EYES 01/06/25 20:59 1 drop QID POLLO Administration Pantoprazole Sodium 40 mg 12/08/24 09:00 12/10/24 08:40 Pantoprazole Inj 40 Mg Vial IVP 01/07/25 08:59 40 mg QDAY POLLO Administration Sodium Chloride 3 ml 12/08/24 16:49 12/08/24 19:32 Sodium Chloride Rt Day 0.9% 3 Ml Nebu INH 01/07/25 16:48 3 ml PRN PRN Administration SOLN Plan 65-year-old female with past medical history of seizures, intracerebral hemorrhage, chronic respiratory failure s/p trach & PEG, hypertension who was brought to the ED from subacute facility after intermittent bleeding was noted through tracheostomy since yesterday. Today blood amount increased so she was brought to the ED. ED course: On arrival patients BP: 148/90, HR 108, Rest of vitals within normal limits. Patient's baseline hemoglobin appears to be around 13, today 10.7. Rest unremarkable. While on the ED patient had 100 cc of blood suctioned. She received 2gr of TXA and 1L NS. ED consulted manager pool Dr Mullins, is consulted and following the patient closely. #Acute blood loss anemia #Bleeding through tracheostomy s/p broncoscopy -Patient's baseline hemoglobin appears to be 13 (last august 2024), today 10.7 -Intermittent bleeding noted through tracheostomy, there was 100cc of bloody output in the ED -100 cc drainage while on the ED -Source unclear at this time -While on the ED, patient received 2gr TXA + 1L NS -ED consulted manager pool Dr Mullins, Patient underwent bronchoscopy on 12/08 which showed friable mucosa with large areas of submucosal hemorrhage. The bleeding was stopped with cold saline. -Repeat bronchoscopy done on 12/09 & 12/10, areas of submucosal hemorrhage with some bleeding noted iced saline and epinephrine was used for homeostasis #OU conjunctival erythema and purulent discharge #OD entroprion -Moxifloxacin OU QID #Facial fungal dermatitis #vaginal Candidiasis -On nasolabial fold -Topical clotrimazole -IV Fluconazole 200 daily give 12/07-12/09 #Pyuria #Bacteriuria - Unable to determine if patient is symptomatic or not due to patient's mental status -Urine cultures ordered and will inform the subacute if positive IV antibiotics can be given in the subacute. #Primary Hypertension -Resumed patients losartan 100 mg daily GT #History of seizures -Only medication on file is lorazepam prn -No record of antiepileptic medications Disposition: Patient admitted to telemetry for management of acute blood loss anemia, bleeding through tracheostomy Diet and fluids: tube feeds resumed DVT prophylaxis:Holding chemical prophylaxis in the setting of acute blood loss GI prophylaxis: Pantoprazole CODE STATUS:FULL CODE Assessment and plan discussed with my attending physician Dr. Ina Saucedo (PGY-1)- Internal medicine resident
--- NOTE | 2024-12-10 16:55 | PD.RESDS ---
Planned Discharge Date 12/10/24 DS: Providers Provider Date of admission: 12/07/24 17:16 Primary care physician: Physician No Primary/Family Admitting Provider: Stevan Rey MD Attending Provider on Admission: Peter Buckley MD Consults: 12/07/24 13:01 Referral Respiratory Therapy Stat Comment: 12/07/24 16:48 Consult to Pulmonology Stat Comment: PT WITH BLEEDING IN TUBING FROM TRACH Consulting Provider: Columba Mullins 12/08/24 08:34 Consult to Christmas Bell Ringer Routine Comment: hemoptysis Consulting Provider: Columba Mullins Attending Provider on DC: Sal Saucedo MD Discharging Provider: Sal Saucedo MD DS: Diagnosis Problem List Completed Was Problem List Reviewed/Reconciled?: Yes Hospital Course Hospital Course Hospital course: No acute overnight events reported. Patient seen and examined at bedside this morning, patient is on blow-by however there is 160 cc of bloody output noted in the canister. No blood is noted at the trach tube however when RT evaluated and suctioned no blood was expelled but few minutes later patient started having bloody output out of the trach tube. Christmas Bell Ringer Dr. Mullins decided to upgrade the patient to ICU for repeat bronchoscopy and close monitoring. 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 acetaminophen 325 mg Tablet 650 mg G-tube Q6HR PRN (Reason: Pain) Label Comments: Not to exceed 3 grams of Tylenol in 24 hours from all sources lorazepam 2 mg/mL Solution 2 mg IVP PRNMRX1 PRN (Reason: Seizure Activity) Rx Instructions: Ativan 2mg/ml IM for seizure, if seizure persists admister second dose of Ativan 2mg/ml IM. If Ativan is not effective send resident to ER for further evaluation and notify MD. magnesium hydroxide [Milk of Magnesia] 400 mg/5 mL Suspension 30 ml G-tube PRN PRN (Reason: No Bowel Movement) Label Comments: CONC:400MG/5ML Rx Instructions: Give 2400mg/30ml PGT on the 5th shift if no BM bisacodyl [Dulcolax (bisacodyl)] 10 mg Suppository 10 mg IN PRN PRN (Reason: No BM Per Bowel Management Protocol) Rx Instructions: Administer as needed on 6th shift, if MOM ineffective. esomeprazole magnesium 40 mg Capsule,Delayed Release(Dr/Ec) 40 mg G-tube DAILY Label Comments: for GERD Fleet Enema 19-7 gram/118 mL Enema 133 ml IN PER ORDER PRN (Reason: Bowel Management Proocol) Label Comments: If Dulcolax is ineffective on 3rd day / 7th shift, give Fleets enema per Bowel Management Protocol. Notify MD if no results from Enema. Ear Wax Removal Drops 6.5 % Drops 5 drp otic (ear) Q61D Rx Instructions: 5 drops per ear at first med pass of shift. Then irrigate ears with NS at next med pass of each shift x 4 days for wax build up. *Start on the of the month, every two months. Ear Wax Removal Drops 6.5 % Drops 5 drp otic (ear) Q61D Rx Instructions: 5 drops per ear at first med pass of shift. Then irrigate ears with NS at next med pass of each shift x 4 days for wax build up. *Start on the of the month, every two months. Ear Wax Removal Drops 6.5 % Drops 5 drp otic (ear) Q61D Label Comments: 5 drops per ear at first med pass of shift. Then irrigate ears with NS at next med pass of each shift x 4 days for wax build up. *Start on the of the month, every two months. Ear Wax Removal Drops 6.5 % Drops 5 drp otic (ear) Q60D Rx Instructions: 5 drops per ear at first med pass of shift. Then irrigate ears with NS at next med pass of each shift x 4 days for wax build up. *Start on the of the month, every two months. Ear Wax Removal Drops 6.5 % Drops 5 drp otic (ear) Q60D Rx Instructions: 5 drops per ear at first med pass of shift. Then irrigate ears with NS at next med pass of each shift x 4 days for wax build up. *Start on the of the month, every two months. Ear Wax Removal Drops 6.5 % Drops 5 drp otic (ear) Q61D Label Comments: 5 drops per ear at first med pass of shift. Then irrigate ears with NS at next med pass of each shift x 4 days for wax build up. *Start on the of the month, every two months. Ear Wax Removal Drops 6.5 % Drops 5 drp otic (ear) Q61D Label Comments: 5 drops per ear at first med pass of shift. Then irrigate ears with NS at next med pass of each shift x 4 days for wax build up. *Start on the of the month, every two months. Phospha 250 Neutral 250 mg Tablet 250 mg G-tube QDAY Label Comments: for supplement albuterol sulfate [Ventolin HFA] 90 mcg/actuation Hfa Aerosol Inhaler 3 puff INH Q4HRRT PRN (Reason: Shortness Of Breath Or Wheeze) losartan 100 mg Tablet 100 mg G-tube HS Label Comments: for HTN BBW Rx Instructions: Hold if SBP<110 Atrovent HFA 17 mcg/actuation Hfa Aerosol Inhaler 3 puff INH Q4HR PRN (Reason: Shortness Of Breath Or Wheeze) sodium chloride 1,000 mg Tablet,Soluble 1,000 mg G-tube BID Label Comments: For Hyponatremia [id number] fum-folic ac 7.5 mg iron-400 mcg Tablet 1 ea G-tube QDAY Label Comments: for supplement gentamicin 0.3 % drops 1 drp ophthalmic (eye) QID 30 Days 0RF Label Comments: Gentamycin drops, one drop to each eye four times a day for irritation vs infection albuterol sulfate 2.5 mg /3 mL (0.083 %) solution for nebulization 2.5 mg INH Q8HRRT 376 Days Qty: 1128 0RF Referrals: No Primary/Family,Physician [Primary Care Provider] - Patient/Caregiver Discharge Instructions Print Language: Italian Stand Alone Forms: Sally Award Info., Patient Portal Info Letter
[2024-12-11] VITALS (29 sets, daily range): BP systolic 123–193; BP diastolic 65–117; PULSE 63–108; RESP 14–31; TEMP 36.1–37; O2SAT 91–100
[2024-12-11] MEDS: EPINEPHrine RT SOL 0.5 ML NEBU INH (05:37)
[2024-12-11] MEDS: SODIUM CHLORIDE RT SOL 0.9% 3 ML NEBU INH (05:37)
[2024-12-11] MEDS: MOXIFLOXACIN OP SOL 0.5% 3 ML BTL 1 DROP BOTH EYES ×3 (05:58→21:14)
--- NOTE | 2024-12-11 07:03 | ESPR_ITS ---
<Statement entered by Sania Guajardo MD - 12/12/24 09:15> TOTAL TIME: 45MINUTES ON DIRECT MEDICAL CARE, MANAGEMENT - COORDINATION AND COUNSELING > 50% OF TOTAL TIME I saw and evaluated the patient. I reviewed the resident?s note and agree with findings and plan as documented in the resident?s note. improved - no further sigificant hemoptysis no bronch indicated on trach collar no fevers okay to transfer to tele Documentation for date of: 12/11/24 Subjective Subjective Interval history: 65-year-old female with past medical history of seizures, intracerebral hemorrhage, chronic respiratory failure s/p trach & PEG, hypertension who was brought to the ED from subacute facility after intermittent bleeding was noted through tracheostomy for the past 2 days. In the ED, on arrival patients BP: 148/90, HR 108, Rest of vitals within normal limits. Patient's baseline hemoglobin appears to be around 13, today 10.7. Rest unremarkable. While on the ED patient had 100 cc of blood suctioned. She received 2gr of TXA and 1L NS. ED consulted photography instructor, who recommended bronchoscopy for today. 12/10/2024: Patient seen and examined. Patient's mentation is at baseline. Patient has tracheostomy in place. Patient is comfortable laying down. ET tube has residual blood and blood on suctioning. Labs and imaging were reviewed. Scheduled bronchoscopy for today. 12/11/2024: Overnight patient got one round of nebulized racemic epinephrine at 5:30 AM. Patient nonverbal at baseline, laying comfortably in bed. ET tube has clear secretions. Hb stable at 9.9, Na decreased to 134 from 135. Will hold off on repeat invasive procedures for now to give the bronchus time to heal. Patient clinically stable for downgrade to the floor. Exam Vital Signs Temp Pulse Resp BP Pulse Ox O2 Del Method O2 Flow Rate 97.8 F 79 20 150/78 H 94 L Blow-by 8 12/11/24 04:00 12/11/24 06:18 12/11/24 06:18 12/11/24 06:00 12/11/24 06:18 12/10/24 16:00 12/11/24 06:18 FiO2 30 12/11/24 06:18 Narrative Exam GENERAL:Contracted, chronically ill appearing, trach/peg, grimaces to painful stimuli only. HEENT: Normocephalic, edentulous, eyelid discharge, OU cornal opacity. injected sclera NECK: Supple without adenopathy. Tracheostomy tube with erythema noted on the skin around the trach tube. Nontender, carotid pulse 2+ bilaterally without bruits, no JVD.? CHEST: Heart rate and rythm normal, no murmurs, gallops auscultated. S1 & 2 normal insensity. Nontender on palpation, no deformity and no crepitus. LUNGS: Coarse breath sounds bilaterally. No intercostal subcostal retraction. Blow by ABDOMEN: Soft,symmetric ,Gastric tube in place. No abnormal masses palpated.? No pulsatile masses or bruits.? Bowel sounds are normoactive in all 4 quadrants. EXTREMITIES: Contracted upper and lower extremities SKIN: erythematous rash noted on right nasolabial fold Objective Labs 12/10/24 04:49 12/10/24 04:49 Quality Measures Quality Measures none Advance care planning discussed with:: other Assessment & Plan Assessment Current Active Medications: Generic Name Dose Route Start Last Admin Trade Name Freq PRN Reason Stop Dose Admin Clotrimazole 0 gm 12/07/24 21:00 12/10/24 20:07 Clotrimazole Cr 1% 30 Gm Tube TOP 01/06/25 20:59 1 appln BID POLLO Administration Lorazepam 2 mg 12/07/24 17:33 Lorazepam 2 Mg/Ml Vial IVP 12/12/24 17:32 Q5MIN PRN Seizure Activity Losartan Potassium 100 mg 12/07/24 17:30 12/10/24 08:39 Losartan Potassium 25 Mg Tablet GT 01/06/25 17:29 100 mg DAILY POLLO Administration Moxifloxacin HCl 1 drop 12/07/24 21:00 12/11/24 05:58 Moxifloxacin Op Day 0.5% 3 Ml Btl BOTH EYES 01/06/25 20:59 1 drop QID POLLO Administration Pantoprazole Sodium 40 mg 12/08/24 09:00 12/10/24 08:40 Pantoprazole Inj 40 Mg Vial IVP 01/07/25 08:59 40 mg QDAY POLLO Administration Sodium Chloride 3 ml 12/08/24 16:49 12/11/24 05:37 Sodium Chloride Rt Day 0.9% 3 Ml Nebu INH 01/07/25 16:48 3 ml PRN PRN Administration SOLN Sodium Chloride 3 ml 12/11/24 05:25 Sodium Chloride Rt Day 0.9% 3 Ml Nebu INH 01/10/25 05:24 PRN PRN SOLN Plan Summary:65-year-old female with past medical history of seizures, intracerebral hemorrhage, chronic respiratory failure s/p trach & PEG, hypertension who was brought to the ED from subacute facility after intermittent bleeding was noted through tracheostomy. Tranfered to the ICU for bronchoscopy. 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 Nebulized racemic epinephrine x1 at 5:30 Rx: To avoid any further invasive procedures at this point to give lungs time to heal. Clinically stable for downgrade to the floor RRx: Follow-up on autoimmune and antibody screen. GI: PEG tub insitu Rx: Continue tube feeds as per strip winder instructions Renal: No acute problems Endo: No acute problems Heme: Blood loss anemia - stable, acute DDx:There is decrease in hemoglobin from baseline likely secondary to bleeding secondary to hemoptysis Dx: Hb 9.9--> 9.9 ID: Asymptomatic Basteruria Urinalysis consistent with UTI unable to assess if the patient symptomatic due to mental status. Facial fungal dermatitis Plan: -Topical clotrimazole Ventilator associated Pneumonia RX: Completed course of antibiotics Skin/MSK: Facial dermatitis Plan: See above ICU Health maintenance: Dispo: Patient clinically stable for downgrade to the floor Diet: Tube Feeds DVT ppx: SCDs GI ppx: Protonix 40mg qD Mechanical ventilattion: No Sedation: No IV lines: 2 pIV Central line: No Arterial line: No Burt: No Code status: FULL CODE Plan of care discussed with Attending Dr. Guajardo and PGY 2 Dr. Austin Robertson MD PGY 1 Disclaimer: This note was dictated by speech recognition. Minor errors in stenographic court reporter may be present due to voice recognition software.
[2024-12-11] MEDS: LOSARTAN POTASSIUM 25 MG TABLET 100 MG GT (08:41)
[2024-12-11] MEDS: PANTOPRAZOLE INJ 40 MG VIAL IVP (08:41)
[2024-12-11] MEDS: CLOTRIMAZOLE CR 1% 30 GM TUBE TOP ×2 (08:42→21:07)
--- NOTE | 2024-12-11 11:40 | ESPR_ITS ---
<Statement entered by Peter Buckley MD - 12/23/24 08:53> I reviewed above note and agree with findings and plans. I have also personally examined the patient with medicine team and went over assessment and plan with medical team including technical internship and resident physician. Documentation for date of: 12/11/24 Subjective Subjective Interval history: Pt is ICU downgrade. Patient has undergone 3 bronchoscopies since admission. Per box packer recommendations include avoiding deep suctioning, no more bronchoscopies needed and if patient continues to bleed we will consider inhaled TXA. Patient tube feeds are resumed at goal rate. Vitals are stable and labs are reviewed patient is downgraded to telemetry. Exam Vital Signs Temp Pulse Resp BP Pulse Ox O2 Del Method O2 Flow Rate 98.2 F 84 25 H 168/90 H 98 Blow-by 8 12/11/24 08:00 12/11/24 09:00 12/11/24 09:00 12/11/24 09:00 12/11/24 09:00 12/10/24 16:00 12/11/24 06:18 FiO2 30 12/11/24 08:00 Narrative Exam GENERAL:Contracted, chronically ill appearing, trach/peg, grimaces to painful stimuli only. HEENT: Normocephalic, edentulous, Entropion OD, OU conjunctiva erythema and purulent discharge, OU cornal opacity NECK: Supple without adenopathy. Tracheostomy tube with erythema noted on the skin around the trach tube. Nontender, carotid pulse 2+ bilaterally without bruits, no JVD.? CHEST: Heart rate and rythm normal, no murmurs, gallops auscultated. S1 & 2 normal insensity. Nontender on palpation, no deformity and no crepitus. LUNGS: Coarse breath sounds bilaterally. No intercostal subcostal retraction. Blow by ABDOMEN: Soft,symmetric ,Gastric tube in place. No abnormal masses palpated.? No pulsatile masses or bruits.? Bowel sounds are normoactive in all 4 quadrants. EXTREMITIES: Contracted upper and lower extremities SKIN: erythematous rash noted on right nasolabial fold - improved Objective Labs 12/10/24 04:49 12/10/24 04:49 Quality Measures Quality Measures none Advance care planning discussed with:: child Assessment & Plan Assessment Current Active Medications: Generic Name Dose Route Start Last Admin Trade Name Freq PRN Reason Stop Dose Admin Clotrimazole 0 gm 12/07/24 21:00 12/11/24 08:42 Clotrimazole Cr 1% 30 Gm Tube TOP 01/06/25 20:59 1 appln BID POLLO Administration Lorazepam 2 mg 12/07/24 17:33 Lorazepam 2 Mg/Ml Vial IVP 12/12/24 17:32 Q5MIN PRN Seizure Activity Losartan Potassium 100 mg 12/07/24 17:30 12/11/24 08:41 Losartan Potassium 25 Mg Tablet GT 01/06/25 17:29 100 mg DAILY POLLO Administration Moxifloxacin HCl 1 drop 12/07/24 21:00 12/11/24 05:58 Moxifloxacin Op Day 0.5% 3 Ml Btl BOTH EYES 01/06/25 20:59 1 drop QID POLLO Administration Pantoprazole Sodium 40 mg 12/08/24 09:00 12/11/24 08:41 Pantoprazole Inj 40 Mg Vial IVP 01/07/25 08:59 40 mg QDAY POLLO Administration Sodium Chloride 3 ml 12/11/24 05:25 Sodium Chloride Rt Day 0.9% 3 Ml Nebu INH 01/10/25 05:24 PRN PRN SOLN Plan 65-year-old female with past medical history of seizures, intracerebral hemorrhage, chronic respiratory failure s/p trach & PEG, hypertension who was brought to the ED from subacute facility after intermittent bleeding was noted through tracheostomy since yesterday. Today blood amount increased so she was brought to the ED. ED course: On arrival patients BP: 148/90, HR 108, Rest of vitals within normal limits. Patient's baseline hemoglobin appears to be around 13, today 10.7. Rest unremarkable. While on the ED patient had 100 cc of blood suctioned. She received 2gr of TXA and 1L NS. ED consulted box packer Dr Mullins, is consulted and following the patient closely. #Acute blood loss anemia #Bleeding through tracheostomy s/p broncoscopy -Patient's baseline hemoglobin appears to be 13 (last august 2024), today 10.7 -Intermittent bleeding noted through tracheostomy, there was 100cc of bloody output in the ED -100 cc drainage while on the ED -Source unclear at this time -While on the ED, patient received 2gr TXA + 1L NS -ED consulted box packer Dr Mullins, Patient underwent bronchoscopy on 12/08 which showed friable mucosa with large areas of submucosal hemorrhage. The bleeding was stopped with cold saline. -Repeat bronchoscopy done on 12/09 & 12/10, areas of submucosal hemorrhage with some bleeding noted iced saline and epinephrine was used for homeostasis #OU conjunctival erythema and purulent discharge #OD entroprion -Moxifloxacin OU QID #Facial fungal dermatitis #vaginal Candidiasis -On nasolabial fold -Topical clotrimazole -IV Fluconazole 200 daily give 12/07-12/09 #Pyuria #Bacteriuria - Unable to determine if patient is symptomatic or not due to patient's mental status -Urine cultures ordered and will inform the subacute if positive IV antibiotics can be given in the subacute. #Primary Hypertension -Resumed patients losartan 100 mg daily GT #History of seizures -Only medication on file is lorazepam prn -No record of antiepileptic medications Disposition: Patient admitted to telemetry for management of acute blood loss anemia, bleeding through tracheostomy Diet and fluids: tube feeds resumed DVT prophylaxis:Holding chemical prophylaxis in the setting of acute blood loss GI prophylaxis: Pantoprazole CODE STATUS:FULL CODE Assessment and plan discussed with my attending physician Dr. Ina Saucedo (PGY-1)- Internal medicine resident
--- NOTE | 2024-12-11 15:18 | PC.SS ---
Goals of care discussion scheduled for 02:30 pm tomorrow. Discussion to be held via phone. TOWER LOADER OPERATOR spoke to patient's daughter, Homa Griffiths ([phone]). Daughter available after 02:30 pm tomorrow. TOWER LOADER OPERATOR informed resident of scheduled time for discussion.
--- NOTE | 2024-12-11 15:24 | PC.SS ---
Update: Patient Trach/PEG. Patient on blow by. Feedings in place. Patient not receiving pressor support. Patient is afebrile. Patient is not receiving any IV antibiotics. Goals of care to be scheduled.
[2024-12-11 15:56] LABS: Hematocrit 29.3 % (36.0-46.0)
[2024-12-11] MEDS: TRANEXAMIC ACID INJ 1,000 MG/10 ML VIAL 500 MG INH ×2 (17:09→21:30)
[2024-12-12] VITALS (12 sets, daily range): BP systolic 129–160; BP diastolic 87–98; PULSE 73–93; RESP 19–29; TEMP 35.9–36.8; O2SAT 91–100; BMI 24.0
[2024-12-12] MEDS: MOXIFLOXACIN OP SOL 0.5% 3 ML BTL 1 DROP BOTH EYES ×4 (05:34→20:40)
[2024-12-12] MEDS: TRANEXAMIC ACID INJ 1,000 MG/10 ML VIAL 500 MG INH ×3 (07:22→18:22)
[2024-12-12] MEDS: PANTOPRAZOLE INJ 40 MG VIAL IVP (08:40)
[2024-12-12] MEDS: LOSARTAN POTASSIUM 25 MG TABLET 100 MG GT (08:41)
[2024-12-12] MEDS: CLOTRIMAZOLE CR 1% 30 GM TUBE TOP ×2 (08:43→20:40)
--- NOTE | 2024-12-12 08:56 | PC.SS ---
Follow up note: Still bleeding for trach. Pt willl return to [facility] upon dc.
--- NOTE | 2024-12-12 09:06 | PD.RESPRO ---
Documentation for date of: 12/12/24 Subjective Subjective Interval history: It was reported patient had excessive bleeding through her trach tube yesterday evening and patient was given inhaled TXA. Patient seen and examined at bedside this morning. Patient was noted to have small amount of bleeding through her trach tube. Nursing staff is informed regarding avoiding excessive suctioning causing exacerbated bleeding. Will hold the goals of care discussion with daughter tomorrow. With patient's family request aggressive treatment patient may need transfer to tertiary center for interventional water quality tester to find source of bleeding. Will continue to monitor closely. Vitals are otherwise stable and hemoglobin is also stable. Exam Vital Signs Temp Pulse Resp BP Pulse Ox O2 Del Method O2 Flow Rate 98.3 F 78 26 H 152/92 H 94 L Blow-by 10 12/12/24 08:00 12/12/24 08:41 12/12/24 08:00 12/12/24 08:41 12/12/24 08:00 12/12/24 08:00 12/12/24 08:00 FiO2 50 12/12/24 08:00 Narrative Exam GENERAL:Contracted, chronically ill appearing, trach/peg, grimaces to painful stimuli only. HEENT: Normocephalic, edentulous, Entropion OD, OU conjunctiva erythema and purulent discharge, OU cornal opacity NECK: Supple without adenopathy. Tracheostomy tube with erythema noted on the skin around the trach tube. Nontender, carotid pulse 2+ bilaterally without bruits, no JVD.? CHEST: Heart rate and rythm normal, no murmurs, gallops auscultated. S1 & 2 normal insensity. Nontender on palpation, no deformity and no crepitus. LUNGS: Coarse breath sounds bilaterally. No intercostal subcostal retraction. Blow by ABDOMEN: Soft,symmetric ,Gastric tube in place. No abnormal masses palpated.? No pulsatile masses or bruits.? Bowel sounds are normoactive in all 4 quadrants. EXTREMITIES: Contracted upper and lower extremities SKIN: erythematous rash noted on right nasolabial fold - improved Objective Labs 12/13/24 08:57 12/13/24 08:57 Labs: Laboratory Results - last 24 hr 12/11/24 15:38 Hgb 10.0 L Hct 29.3 L Blood Type B Positive Antibody Screen NEGATIVE Blood Bank Wristband ID Yes Quality Measures Quality Measures none Advance care planning discussed with:: child Assessment & Plan Assessment Current Active Medications: Generic Name Dose Route Start Last Admin Trade Name Freq PRN Reason Stop Dose Admin Clotrimazole 0 gm 12/07/24 21:00 12/12/24 08:43 Clotrimazole Cr 1% 30 Gm Tube TOP 01/06/25 20:59 1 applicatio BID POLLO Administration Lorazepam 2 mg 12/07/24 17:33 Lorazepam 2 Mg/Ml Vial IVP 12/12/24 17:32 Q5MIN PRN Seizure Activity Losartan Potassium 100 mg 12/07/24 17:30 12/12/24 08:41 Losartan Potassium 25 Mg Tablet GT 01/06/25 17:29 100 mg DAILY POLLO Administration Moxifloxacin HCl 1 drop 12/07/24 21:00 12/12/24 05:34 Moxifloxacin Op Day 0.5% 3 Ml Btl BOTH EYES 01/06/25 20:59 1 drop QID POLLO Administration Pantoprazole Sodium 40 mg 12/08/24 09:00 12/12/24 08:40 Pantoprazole Inj 40 Mg Vial IVP 01/07/25 08:59 40 mg QDAY POLLO Administration Sodium Chloride 3 ml 12/11/24 05:25 Sodium Chloride Rt Day 0.9% 3 Ml Nebu INH 01/10/25 05:24 PRN PRN SOLN Tranexamic Acid 500 mg 12/11/24 15:30 12/12/24 07:22 Tranexamic Acid Inj 1,000 Mg/10 Ml Vial INH 12/14/24 15:29 500 mg TID POLLO Administration Plan 65-year-old female with past medical history of seizures, intracerebral hemorrhage, chronic respiratory failure s/p trach & PEG, hypertension who was brought to the ED from subacute facility after intermittent bleeding was noted through tracheostomy since yesterday. Today blood amount increased so she was brought to the ED. ED course: On arrival patients BP: 148/90, HR 108, Rest of vitals within normal limits. Patient's baseline hemoglobin appears to be around 13, today 10.7. Rest unremarkable. While on the ED patient had 100 cc of blood suctioned. She received 2gr of TXA and 1L NS. ED consulted human resources partner Dr Mullins, is consulted and following the patient closely. #Acute blood loss anemia #Bleeding through tracheostomy s/p broncoscopy -Patient's baseline hemoglobin appears to be 13 (last august 2024), today 10.7 -Intermittent bleeding noted through tracheostomy, there was 100cc of bloody output in the ED -100 cc drainage while on the ED -Source unclear at this time -While on the ED, patient received 2gr TXA + 1L NS -ED consulted human resources partner Dr Mullins, Patient underwent bronchoscopy on 12/08 which showed friable mucosa with large areas of submucosal hemorrhage. The bleeding was stopped with cold saline. -Repeat bronchoscopy done on 12/09 & 12/10, areas of submucosal hemorrhage with some bleeding noted iced saline and epinephrine was used for homeostasis #OU conjunctival erythema and purulent discharge #OD entroprion -Moxifloxacin OU QID #Facial fungal dermatitis #vaginal Candidiasis -On nasolabial fold -Topical clotrimazole -IV Fluconazole 200 daily give 12/07-12/09 #Pyuria #Bacteriuria - Unable to determine if patient is symptomatic or not due to patient's mental status -Urine cultures ordered and will inform the subacute if positive IV antibiotics can be given in the subacute. #Primary Hypertension -Resumed patients losartan 100 mg daily GT #History of seizures -Only medication on file is lorazepam prn -No record of antiepileptic medications Disposition: Patient admitted to telemetry for management of acute blood loss anemia, bleeding through tracheostomy Diet and fluids: tube feeds resumed DVT prophylaxis:Holding chemical prophylaxis in the setting of acute blood loss GI prophylaxis: Pantoprazole CODE STATUS:FULL CODE Assessment and plan discussed with my attending physician Dr. Juan Saucedo (PGY-1)- Internal medicine resident Attending Provider Attestation/Addendum Face to face evaluation was performed by me. I have personally seen and examined the patient. I discussed the assessment and plan with the entire medicine team. I reviewed available medical records, imaging studies, laboratory results. I agree with the above subjective data, objective findings, assessment and plan except as corrected by me or noted below #Acute blood loss anemia #Bleeding through tracheostomy s/p broncoscopy #OU conjunctival erythema and purulent discharge #OD entroprion - Continue supportive care, IV drop antibiotics. Discharge planning. Plan to meet with family further goals of care discussions. Continue inhaled tranexamic acid?total of less than 5 days course should be used at that time. Patient had few bronchoscopies in-house, if she rebleeds she will probably need to be transferred to outside facility unless family wants more comfort approach and no escalation of care. More than > 30 minutes spent on the encounter
[2024-12-12 09:41] LABS: Basophils % (Auto) 1 % (0-2.5); Eosinophils # (Auto) 0.2 Thou/mm3 (0.0-0.5); Eosinophils % (Auto) 3 % (0-10); Hematocrit 30.8 % (36.0-46.0); Hemoglobin 10.5 g/dL (12.0-16.0); Immature Granulocytes % (Auto) 0 % (0-0); Immature Granulocytes Auto 0.01 Thou/mm3 (0.00-0.00); Lymphocytes # (Auto) 1.5 Thou/mm3 (1.0-4.8); Lymphocytes % (Auto) 22 % (10-50); Mean Corpuscular HGB Conc 34.1 g/dl (31.0-37.0); Mean Corpuscular Hemoglobin 29.7 pg (25.0-35.0); Mean Corpuscular Volume 87 fL (80-100); Monocytes # (Auto) 0.9 Thou/mm3 (0.0-0.8); Monocytes % (Auto) 13 % (0-12); Neutrophils # (Auto) 4.4 Thou/mm3 (1.8-7.7); Neutrophils % (Auto) 62 % (37-80); Nucleated Red Blood Cell % 0 /100 WBC (0); Platelet Count 352 Thou/mm3 (140-440); RDW Standard Deviation 42.1 fL (36.4-46.3); Red Blood Count 3.54 Miln/mm3 (4.00-5.20); White Blood Count 7.1 Thou/mm3 (3.6-11.0)
--- NOTE | 2024-12-12 15:21 | PC.NURSE ---
Dr. Saucedo aware pt. has not had BM since 12/09/24. states i will order something.
[2024-12-13] VITALS (7 sets, daily range): BP systolic 122–149; BP diastolic 86–96; PULSE 88–123; RESP 22–26; TEMP 36.1–36.2; O2SAT 93–98; BMI 26.2
[2024-12-13] MEDS: MOXIFLOXACIN OP SOL 0.5% 3 ML BTL 1 DROP BOTH EYES ×2 (05:07→12:14)
[2024-12-13] MEDS: TRANEXAMIC ACID INJ 1,000 MG/10 ML VIAL 500 MG INH (06:28)
[2024-12-13] MEDS: SENNA/DOCUSATE SOD 1 TAB TABLET PO (09:17)
[2024-12-13] MEDS: LANSOPRAZOLE 30 MG TAB.RAP.DR GT (09:17)
[2024-12-13] MEDS: LOSARTAN POTASSIUM 25 MG TABLET 100 MG GT (09:17)
[2024-12-13] MEDS: CLOTRIMAZOLE CR 1% 30 GM TUBE TOP (09:18)
[2024-12-13 09:34] LABS: Basophils # (Auto) 0.1 Thou/mm3 (0.0-0.2); Basophils % (Auto) 1 % (0-2.5); Eosinophils # (Auto) 0.2 Thou/mm3 (0.0-0.5); Eosinophils % (Auto) 2 % (0-10); Hemoglobin 11.3 g/dL (12.0-16.0); Immature Granulocytes % (Auto) 0 % (0-0); Immature Granulocytes Auto 0.02 Thou/mm3 (0.00-0.00); Lymphocytes # (Auto) 1.5 Thou/mm3 (1.0-4.8); Lymphocytes % (Auto) 15 % (10-50); Mean Corpuscular HGB Conc 34.2 g/dl (31.0-37.0); Mean Corpuscular Hemoglobin 29.3 pg (25.0-35.0); Mean Corpuscular Volume 86 fL (80-100); Monocytes % (Auto) 10 % (0-12); Neutrophils # (Auto) 7.1 Thou/mm3 (1.8-7.7); Neutrophils % (Auto) 72 % (37-80); Nucleated Red Blood Cell % 0 /100 WBC (0); Platelet Count 399 Thou/mm3 (140-440); RDW Standard Deviation 40.2 fL (36.4-46.3); Red Blood Count 3.86 Miln/mm3 (4.00-5.20); White Blood Count 9.8 Thou/mm3 (3.6-11.0)
[2024-12-13 09:53] LABS: Anion Gap 8 (7-16); BUN/Creatinine Ratio 20 Ratio (12-20); Blood Urea Nitrogen 10 mg/dL (9-23); Calcium 9.5 mg/dL (8.3-10.6); Carbon Dioxide 29.6 mMol/L (20.0-31.0); Chloride 89 mMol/L (98-107); Creatinine (Component) 0.5 mg/dL (0.6-1.3); Estimated Creatinine Clearance 79.1 mL/min (>60); Glucose 130 mg/dL (74-106); Magnesium 1.7 mg/dL (1.6-2.6); Osmolality,Calculated 256 (275-295); Potassium 4.5 mMol/L (3.4-5.1); Sodium 127 mMol/L (136-145); eGFR > 60 See Note
--- NOTE | 2024-12-13 12:07 | PC.SS ---
SS informed by Dr. Wilkins patient will be ready for discharge today. SS contacted [facility] Subacute, TIFFANIE Moss stated patient can return as long as patient has not exceeded 7day bed hold. Patient was admitted 12/07/24. TIFFANIE Moss agreed patient can be accepted at 1400. Nurse to Nurse report ext. [phone] provided. TIFFANIE Reynolds and FANNY Felix informed.
--- NOTE | 2024-12-13 14:24 | ESDS_ITS ---
Planned Discharge Date 12/13/24 DS: Providers Provider Date of admission: 12/07/24 17:16 Primary care physician: Physician No Primary/Family Admitting Provider: Stevan Rey MD Attending Provider on Admission: Peter Buckley MD Consults: 12/07/24 13:01 Referral Respiratory Therapy Stat Comment: 12/07/24 16:48 Consult to Pulmonology Stat Comment: PT WITH BLEEDING IN TUBING FROM TRACH Consulting Provider: Columba Mullins 12/08/24 08:34 Consult to Sales And Marketing Manager Routine Comment: hemoptysis Consulting Provider: Columba Mullins Attending Provider on DC: James Martinez MD Discharging Provider: Socorro Wilkins MD DS: Diagnosis Problem List Completed Was Problem List Reviewed/Reconciled?: Yes Hospital Course Hospital Course Hospital course: Reason for hospitalization: Bleeding from tracheostomy 65-year-old female with past medical history of seizures, intracerebral hemorrhage, chronic respiratory failure s/p trach & PEG, hypertension who was brought to the ED from [facility] subacute after intermittent bleeding was noted through tracheostomy 12/07/2024. Patient's baseline hemoglobin appears to be around 13, on admission 10.7. She received TXA and bleed stopped for 18 hours, however recurred. ED consulted special education paraeducator Dr. Mullins, was consulted and followed the patient closely. Bronchoscopy was performed on 12/08, 12/09, and 12/10. Areas of submucosal hemorrhage were mostly noted in the left upper lobe, some in the right upper. Cold saline and epi solution was used to achieve hemostasis. Patient did not have any new bleeding for more than 24 hours. Goals of care discussion was held with patient's daughter and code status for changed from Full Code to DNR. Selective treatments in case of intervention needed, no transf er desired for higher level care should patient need surgical intervention. POLST form signed and placed in chart. Patient stable for discharge back to subacute. Discharge Recommendations: -Continue inhaled tranexamic acid 500 mg three times daily for 1 more day -Patient is confirmed to be DNR, POLST form has been signed and placed in chart Hospital Diagnoses: #Acute blood loss anemia #Bleeding through tracheostomy s/p bronchoscopy #OU conjunctival erythema and purulent discharge #OD entroprion #Facial fungal dermatitis #vaginal candidiasis #Pyuria #Bacteriuria #Primary hypertension #History of seizures Patient plan of care was discussed with the attending physician, Dr. Martinez. Socorro Wilkins, PGY-2 Time Spent with Patient Time attestation: Total time spent providing and/or coordinating discharge services: Time spent: Greater than 30 minutes Quality: Stroke Pt Provided Written Stroke Discharge Instructions: No (s/s) Exam Vital Signs Temp Pulse Resp BP Pulse Ox O2 Del Method O2 Flow Rate 97.2 F 113 H 24 H 149/96 H 95 Blow-by 8 12/13/24 08:00 12/13/24 09:17 12/13/24 08:00 12/13/24 09:17 12/13/24 08:00 12/13/24 08:00 12/13/24 08:00 FiO2 40 12/13/24 08:00 Narrative Exam GENERAL:Contracted, chronically ill appearing, trach/peg, grimaces to painful stimuli only. HEENT: Normocephalic, edentulous, Entropion OD, OU conjunctiva erythema and purulent discharge, OU cornal opacity NECK: Supple without adenopathy. Tracheostomy tube with erythema noted on the skin around the trach tube. Nontender, carotid pulse 2+ bilaterally without bruits, no JVD.? CHEST: Heart rate and rythm normal, no murmurs, gallops auscultated. S1 & 2 normal insensity. Nontender on palpation, no deformity and no crepitus. LUNGS: Coarse breath sounds bilaterally. No intercostal subcostal retraction. Blow by ABDOMEN: Soft,symmetric ,Gastric tube in place. No abnormal masses palpated.? No pulsatile masses or bruits.? Bowel sounds are normoactive in all 4 quadrants. EXTREMITIES: Contracted upper and lower extremities SKIN: erythematous rash noted on right nasolabial fold - improved Discharge Plan Plan Patient Disposition: Xfer [employer] Acute w/in Hosp Patient condition on transfer: Stable Care Plan Goals: Discharge Recommendations: -Continue inhaled tranexamic acid 500 mg three times daily for 1 more day -Patient is confirmed to be DNR, POLST form has been signed and placed in chart Prescriptions/Referrals Prescriptions/Med Rec: Continued sennosides [Senna Laxative] 8.6 mg Tablet 17.2 mg G-tube HS Label Comments: for constipation Rx Instructions: Hold for loose stools. acetaminophen 325 mg Tablet 650 mg G-tube Q6HR PRN (Reason: Pain) Label Comments: Not to exceed 3 grams of Tylenol in 24 hours from all sources magnesium hydroxide [Milk of Magnesia] 400 mg/5 mL Suspension 30 ml G-tube PRN PRN (Reason: No Bowel Movement) Label Comments: CONC:400MG/5ML Rx Instructions: Give 2400mg/30ml PGT on the 5th shift if no BM bisacodyl [Dulcolax (bisacodyl)] 10 mg Suppository [address] PRN PRN (Reason: No BM Per Bowel Management Protocol) Rx Instructions: Administer as needed on 6th shift, if MOM ineffective. esomeprazole magnesium 40 mg Capsule,Delayed Release(Dr/Ec) 40 mg G-tube DAILY Label Comments: for GERD Ear Wax Removal Drops 6.5 % Drops 5 drp otic (ear) Q60D Rx Instructions: 5 drops per ear at first med pass of shift. Then irrigate ears with NS at next med pass of each shift x 4 days for wax build up. *Start on the of the month, every two months. Phospha 250 Neutral 250 mg Tablet 250 mg G-tube QDAY Label Comments: for supplement losartan 100 mg Tablet 100 mg G-tube HS Label Comments: for HTN BBW Rx Instructions: Hold if SBP<110 Atrovent HFA 17 mcg/actuation Hfa Aerosol Inhaler 3 puff INH Q4HR PRN (Reason: Shortness Of Breath Or Wheeze) sodium chloride 1,000 mg Tablet,Soluble 1,000 mg G-tube BID Label Comments: For Hyponatremia hemcoxrl-[id number] fum-folic ac 7.5 mg iron-400 mcg Tablet 1 ea G-tube QDAY Label Comments: for supplement gentamicin 0.3 % drops 1 drp ophthalmic (eye) QID 30 Days 0RF Label Comments: Gentamycin drops, one drop to each eye four times a day for irritation vs infection Discontinued Fleet Enema 19-7 gram/118 mL Enema [address] PER ORDER PRN (Reason: Bowel Management Proocol) Label Comments: If Dulcolax is ineffective on 3rd day / 7th shift, give Fleets enema per Bowel Management Protocol. Notify MD if no results from Enema. Ear Wax Removal Drops 6.5 % Drops 5 drp otic (ear) Q61D Rx Instructions: 5 drops per ear at first med pass of shift. Then irrigate ears with NS at next med pass of each shift x 4 days for wax build up. *Start on the of the month, every two months. Ear Wax Removal Drops 6.5 % Drops 5 drp otic (ear) Q61D Rx Instructions: 5 drops per ear at first med pass of shift. Then irrigate ears with NS at next med pass of each shift x 4 days for wax build up. *Start on the of the month, every two months. Ear Wax Removal Drops 6.5 % Drops 5 drp otic (ear) Q61D Label Comments: 5 drops per ear at first med pass of shift. Then irrigate ears with NS at next med pass of each shift x 4 days for wax build up. *Start on the of the month, every two months. Ear Wax Removal Drops 6.5 % Drops 5 drp otic (ear) Q60D Rx Instructions: 5 drops per ear at first med pass of shift. Then irrigate ears with NS at next med pass of each shift x 4 days for wax build up. *Start on the of the month, every two months. Ear Wax Removal Drops 6.5 % Drops 5 drp otic (ear) Q61D Label Comments: 5 drops per ear at first med pass of shift. Then irrigate ears with NS at next med pass of each shift x 4 days for wax build up. *Start on the of the month, every two months. Ear Wax Removal Drops 6.5 % Drops 5 drp otic (ear) Q61D Label Comments: 5 drops per ear at first med pass of shift. Then irrigate ears with NS at next med pass of each shift x 4 days for wax build up. *Start on the of the month, every two months. No Action lorazepam 2 mg/mL solution 2 mg IM PRN PRN (Reason: Seizure Activity) 365 Days 0RF Rx Instructions: Ativan 2mg/ml IM for seizure, if seizure persists admister second dose of Ativan 2mg/ml IM. If Ativan is not effective send resident to ER for further evaluation and notify MD. albuterol sulfate 2.5 mg /3 mL (0.083 %) solution for nebulization 2.5 mg INH Q6HRRT PRN (Reason: SHORTNESS OF BREATH OR WHEEZE) 30 Days 0RF Referrals: No Primary/Family,Physician [Primary Care Provider] - Patient/Caregiver Discharge Instructions Print Language: Luxembourger Stand Alone Forms: Sally Award Info., Patient Portal Info Letter Discharge Order Discharge Orders: Discharge (Routine); Ordered 12/13/24 Ordered By: Socorro Wilkins Quality Discharge Quality Measures none MD Attestestation MD Attestation Face to face evaluation was performed by me. I have personally seen and examined the patient. I discussed the assessment and plan with the entire medicine team. I reviewed available medical records, imaging studies, laboratory results. I agree with the above subjective data, objective findings, assessment and plan except as corrected by me or noted below Discussed with family?daughter at bedside, who also communicated with her brother. Goals of care?CODE STATUS to be changed to DNR with selective therapy including continuation of tube feeds and okay with antibiotics blood draws and transfusion if needed. But overall leaning towards more comfort. I also briefly discussed with her hospice as well. #Acute blood loss anemia #Bleeding through tracheostomy s/p broncoscopy #OU conjunctival erythema and purulent discharge #OD entroprion More than > 30 minutes spent on the encounter
[2024-12-15 07:16] LABS: ANA Pattern CYTOPLASMIC; ANA Screen, IFA POSITIVE (NEGATIVE); ANA Titer 1:40 titer
[2024-12-18 23:33] LABS: Cardiolipin Ab IgA <2.0 APL-U/mL; Cardiolipin Ab IgG <2.0 GPL-U/mL; Immunoglobulin G 1626 mg/dL (600-1540)
[2024-12-19 06:06] LABS: ANCA Screen NEGATIVE (NEGATIVE); B2-Glycoprotein I Ab IgA <2.0 U/mL; B2-Glycoprotein I Ab IgG <2.0 U/mL; B2-Glycoprotein I Ab IgM <2.0 U/mL; Cardiolipin Ab IgM <2.0 MPL-U/mL; Complement Component C3* 153 mg/dL (83-193); Complement Component C4c* 22 mg/dL (15-57); Immunoglobulin M 72 mg/dL (50-300); Myeloperoxidase Ab <1.0 AI (<1.0); Phos.Serine Ab IgG <9 U (< OR = 30); Phos.Serine Ab IgM 10 U (< OR = 30); Proteinase-3 Ab <1.0 AI (<1.0)
[2024-12-24 08:18] LABS: Immunoglobulin A SEE SEP RPT
== END 2024-12-13 14:38 | disposition skilled nursing facility (03) | DRG 205 ==
LOC: SERX 17:14 → SERHOLD 17:27 → S2NX 22:09 → S2SX 12-08 18:20 → S2NX 12-10 08:44 → S2SX 12-10 13:59 → S2NX 12-10 14:00
PROVIDERS: Student in an Organized Health Care Education/Training Program; Admitting Provider Student in an Organized Health Care Education/Training Program; Emergency Provider Family Medicine; Visit Provider Internal Medicine
DX: J95.01 Hemorrhage from tracheostomy stoma (principal); G03.9 Meningitis, unspecified; D62 Acute posthemorrhagic anemia; J95.851 Ventilator associated pneumonia; J96.10 Chronic respiratory failure, unspecified whether with hypoxia or hypercapnia; N39.0 Urinary tract infection, site not specified; R04.2 Hemoptysis; Z99.11 Dependence on respirator [ventilator] status; I10 Essential (primary) hypertension; Z93.1 Gastrostomy status; B36.9 Superficial mycosis, unspecified; G40.909 Epilepsy, unspecified, not intractable, without status epilepticus; B37.31 Acute candidiasis of vulva and vagina; Y84.8 Other medical procedures as the cause of abnormal reaction of the patient, or of later complication, without mention of misadventure at the time of the procedure; Z93.0 Tracheostomy status; L30.9 Dermatitis, unspecified; Z79.899 Other long term (current) drug therapy
CPT/HCPCS: 36415; 71045; 71250; 80048; 80053; 81001; 82784; 83735; 84100; 84443; 84484; 85014; 85018; 85025; 85610; 85730; 86021; 86036; 86038; 86039; 86146; 86147; 86148; 86160; 86850; 86900; 86901; 87081; 87086; 93005; 94002; 94003; 94640; 94664; 96365; 96366; 96367; 99291; J0171; J1450; J2250; J2470; J3475; J3490; J7030; A9270; J1920

== ENCOUNTER 2025-03-27 12:47 | Inpatient (IN) | payer MEDICARE, MEDICAID, SELFPAY ==
[2025-03-27] VITALS (11 sets, daily range): BP systolic 75–158; BP diastolic 50–96; PULSE 74–126; RESP 20–35; TEMP 37.3–38; O2SAT 89–100; BMI 22.2
--- NOTE | 2025-03-27 13:05 | PC.NURSE ---
Patient presents to ED with gurney from subacute area with c/o desat to 50% and placed on BVM, SOB x3 days, patient is nonverbal with tracheostomy on blow by 15L with sat at 89%, ST 115 on CM. Per staff software engineer CXR is pna. Call light is within reach. MD at bedside evaluating patient.
--- NOTE | 2025-03-27 13:16 | XR_ITS ---
Examination: AP chest single view Technique one AP portable semiupright chest single view Date and time: March 27, 2025, 1339 hours, comparison 03/26/2025 INDICATIONS: Sepsis alert FINDINGS: Significant diffuse left lung and right lung pneumonia Normal heart size Tracheostomy tube 4.6 cm above cele Normal heart size IMPRESSION: Significant bilateral pneumonia
--- NOTE | 2025-03-27 13:16 | EKG_ITS ---
[facility] Test Date: 2025-03-27 Pat Name: ORESTES YEPEZ Department: Room: - Gender: Female Atmospheric Technician: : 1955 Requested By: Lisa Reyes Order Number: [id number] Reading MD: Lisa Reyes Measurements Intervals [place] Rate: 112 P: MS: QRS: 5 QRSD: 67 T: 0 QT: 320 QTc: 438 Interpretive Statements SUPRAVENTRICULAR TACHYCARDIA MODERATE ST DEPRESSION [0.05+ mV ST DEPRESSION] Compared to ECG 12/07/2024 13:59:53 ST (T wave) deviation now present Sinus rhythm no longer present /store/S0/[id number].pdf
[2025-03-27 13:25] LABS: Basophils # (Auto) 0.0 Thou/mm3 (0.0-0.2); Basophils % (Auto) 0 % (0-2.5); Eosinophils # (Auto) 0.1 Thou/mm3 (0.0-0.5); Eosinophils % (Auto) 1 % (0-10); Hematocrit 35.2 % (36.0-46.0); Hemoglobin 10.5 g/dL (12.0-16.0); Immature Granulocytes Auto 0.03 Thou/mm3 (0.00-0.00); Lymphocytes # (Auto) 1.8 Thou/mm3 (1.0-4.8); Lymphocytes % (Auto) 19 % (10-50); Mean Corpuscular HGB Conc 29.8 g/dl (31.0-37.0); Mean Corpuscular Hemoglobin 26.4 pg (25.0-35.0); Mean Corpuscular Volume 88 fL (80-100); Monocytes # (Auto) 0.8 Thou/mm3 (0.0-0.8); Monocytes % (Auto) 8 % (0-12); Neutrophils # (Auto) 7.0 Thou/mm3 (1.8-7.7); Neutrophils % (Auto) 72 % (37-80); Nucleated Red Blood Cell # 0.00 Thou/mm3 (0.00-0.00); Nucleated Red Blood Cell % 0 /100 WBC (0); Platelet Count 260 Thou/mm3 (140-440); RDW Standard Deviation 51.3 fL (36.4-46.3); Red Blood Count 3.98 Miln/mm3 (4.00-5.20); White Blood Count 9.7 Thou/mm3 (3.6-11.0)
[2025-03-27 13:31] LABS: Lactate (Lactic Acid) 1.1 mMol/L (0.4-2.0)
[2025-03-27 13:42] LABS: INR 1.0 (0.9-1.3); Partial Thromboplastin Time 25.2 Seconds (22.0-36.0); Prothrombin Time 11.3 Seconds (9.0-12.2)
[2025-03-27 13:53] LABS: Alanine Aminotransferase 47 U/L (10-49); Albumin, Serum 3.9 gm/dL (3.4-4.8); Albumin/Globulin Ratio 1.1 (1.2-2.2); Alkaline Phosphatase 191 U/L (46-116); Anion Gap 11 (7-16); Aspartate Amino Transferase 36 U/L (0-34); BUN/Creatinine Ratio 28 Ratio (12-20); Bilirubin,Total 0.4 mg/dL (0.3-1.2); Blood Urea Nitrogen 17 mg/dL (9-23); Calcium 9.3 mg/dL (8.3-10.6); Calcium (Corrected) 9.4 mg/dL (8.5-10.1); Carbon Dioxide 35.4 mMol/L (20.0-31.0); Chloride 109 mMol/L (98-107); Creatinine (Component) 0.6 mg/dL (0.6-1.3); Estimated Creatinine Clearance 78.6 mL/min (>60); Globulin 3.5 gm/dL (2.3-3.5); Glucose 165 mg/dL (74-106); Osmolality,Calculated 312 (275-295); Potassium 3.0 mMol/L (3.4-5.1); Procalcitonin 0.10 ng/ml (0.0-0.49); Sodium 155 mMol/L (136-145); Total Protein 7.4 gm/dL (5.7-8.2); eGFR > 60 See Note
[2025-03-27] MEDS: cefTRIAXone/D5w 1gm IV premix 1 GM/50 ML BAG IV (13:56)
--- NOTE | 2025-03-27 14:10 | PD.EDSOB ---
ED SOB =RME/HPI General Chief Complaint: Shortness of Breath/Dyspnea Stated Complaint: SHORTNESS OF BREATH Time Seen by Provider: 03/27/25 13:06 Arrival date/time: 03/27/25 12:47 Limitations: no limitations RME / HPI RME / HPI Narrative: 69 year old female with history of seizures, intracerebral hemorrhage, hypertension, chronic respiratory failure, s/p tracheostomy, failure to thrive, s/p PEG presents to the ED brought from subacute unit within this facility for evaluation of shortness of breath and increased secretions beginning yesterday and worsening today. Per RN, patient had a chest xray performed yesterday showing pneumonia. However, has yet to be started on antibiotics. No fevers reported. Related Data Previous Rx's ?Medication ?Instructions ?Recorded acetaminophen 325 mg tablet 650 mg (2 x 325 mg) G-tube Q6HR 02/17/25 PRN Pain 713 days bisacodyl 10 mg rectal suppository 10 mg MN PRN PRN No BM Per Bowel 02/17/25 (Dulcolax (bisacodyl)) Management Protocol 943 days esomeprazole magnesium 40 mg 40 mg G-tube DAILY 940 days #940 02/17/25 capsule,delayed release caps ipratropium bromide 17 3 puff INH Q4HR PRN Shortness Of 02/17/25 mcg/actuation HFA aerosol inhaler Breath Or Wheeze 750 days (Atrovent HFA) losartan 100 mg tablet 100 mg G-tube HS 942 days #943 tabs 02/17/25 magnesium hydroxide 400 mg/5 mL 30 ml G-tube PRN PRN No Bowel 02/17/25 oral suspension (Milk of Magnesia) Movement 941 days [id number] 1 ea G-tube QDAY 943 days #943 tabs 02/17/25 fumarate 7.5 mg-folic acid 400 mcg tablet sennosides 8.6 mg tablet (Senna 17.2 mg (2 x 8.6 mg) G-tube HS 942 02/17/25 Laxative) days #1,886 tabs sodium chloride 1,000 mg soluble 1,000 mg G-tube BID 942 days #943 02/17/25 tablet tabs sodium di- and 250 mg G-tube QDAY 943 days 02/17/25 monophosphate-potassium phos monobasic 250 mg tablet (Phospha Neutral) fludrocortisone 0.1 mg tablet 0.1 mg G-tube 2100 Hyponatremia 30 02/22/25 days #228 tabs carbamide peroxide 6.5 % ear drops 5 drp otic (ear) Q61D 343 days 03/01/25 (Ear Wax Removal Drops) carbamide peroxide 6.5 % ear drops 5 drp otic (ear) Q61D 343 days 03/01/25 (Ear Wax Removal Drops) carbamide peroxide 6.5 % ear drops 5 drp otic (ear) Q61D 344 days 03/01/25 (Ear Wax Removal Drops) carbamide peroxide 6.5 % ear drops 5 drp otic (ear) Q61D 344 days 03/01/25 (Ear Wax Removal Drops) carbamide peroxide 6.5 % ear drops 5 drp otic (ear) Q61D 345 days 03/01/25 (Ear Wax Removal Drops) carbamide peroxide 6.5 % ear drops 5 drp otic (ear) Q61D 345 days 03/01/25 (Ear Wax Removal Drops) carbamide peroxide 6.5 % ear drops 5 drp otic (ear) Q61D 346 days 03/01/25 (Ear Wax Removal Drops) carbamide peroxide 6.5 % ear drops 5 drp otic (ear) Q61D 346 days 03/01/25 (Ear Wax Removal Drops) lorazepam 2 mg/mL injection 2 mg IM PRN PRN Seizure Activity 03/14/25 solution 365 days #1 vial albuterol sulfate 2.5 mg/3 mL 2.5 mg (3 mL) INH Q6HRRT PRN 03/21/25 (0.083 %) solution for nebulization Wheezing/SOB 345 days Allergies Allergy/AdvReac Type Severity Reaction Status Date / Time No Known Allergies Allergy Verified 03/27/25 13:04 Review of Systems Review of Systems ROS Unobtainable: unobtainable due to medical condition Past Medical History Past Medical History NEUROLOGIC: Positive Neurological Disorders, Cerebrovascular Accident, Seizures and Epilepsy CARDIAC: Positive Cardiac Disorders and Hypertension RESPIRATORY: Positive Respiratory Disorders GASTROINTESTINAL: Positive Gastrointestinal Disorders and Gastroesophageal Reflux Disease MUSCULOSKELETAL: Positive Musculoskeletal Disorders OTHER HISTORY: Positive Hospitalization Surgical History SURGICAL: Positive Abdominal Surgery and Tracheostomy Social History SMOKING STATUS: Unknown if ever smoked SECOND HAND EXPOSURE: No ED Exam General Limitations: Present no limitations General appearance: Present other (chronically ill appearing with acute decompensation, tachypneic, responds to painful stimuli, does not follow commands ) Head Head exam: Present atraumatic Eye Eye exam: Present normal appearance ENT ENT exam: Present normal exam, normal oropharynx and mucous membranes moist Neck Neck exam: Present full ROM and other (tracheostomy noted ) Chest Chest inspection: Present normal inspection and symmetric chest wall rise Respiratory Respiratory exam: Present normal lung sounds bilaterally Cardiovascular Cardiovascular exam: Present regular rate, normal rhythm and normal heart sounds Abdominal Exam Abdominal exam: Present soft, normal bowel sounds and other (PEG tube noted ) Extremities Exam Extremities exam: Absent pedal edema Neurological Exam Neurological exam: Present other ( responds to painful stimuli, does not follow commands ) Psychiatric Psychiatric exam: Present normal affect and normal mood Skin Skin exam: Present warm, dry, intact and normal color Course Quality Measures Current suspected stage: sepsis Possible source: pulmonary Blood cultures ordered: completed in ED Antibiotic ordered: Yes Pertinent labs: 03/27/25 12:55 Lactic Acid 1.1 mMol/L (0.4-2.0) Procalcitonin 0.10 ng/ml (0.0-0.49) sepsis Orders Category Date Time Status Bedside Blood Glucose NOW Care 03/27/25 13:16 Active Funding Coordinator Q4H START 00 Care 03/27/25 13:16 Active Insert IV NOW Care 03/27/25 13:16 Active Strict Intake and Output Routine Care 03/27/25 13:16 Ordered XR chest 1V SEPSIS PROTOCOL Stat Exams 03/27/25 13:16 Completed Blood Culture (Lab) Stat Lab 03/27/25 12:55 Received CBC Stat Lab 03/27/25 12:55 Completed Comprehensive Metabolic Panel Stat Lab 03/27/25 12:55 Completed Lactate (Lactic Acid) Stat Lab 03/27/25 12:55 Completed Partial Thromboplastin Time Stat Lab 03/27/25 12:55 Completed Procalcitonin Stat Lab 03/27/25 12:55 Completed Prothrombin Time with INR Stat Lab 03/27/25 12:55 Completed Urinalysis Stat Lab 03/27/25 14:02 Completed Urine Culture Stat Lab 03/27/25 14:02 Received Azithromycin Inj [Zithromax Inj] 500 mg Med 03/27/25 13:22 Discontinued Sodium Chloride 0.9% 250 ml [Ns] 250 ml IV STAT Cefepime Inj [Maxipime Inj] 1 gm Med 03/28/25 06:00 Discontinued SODIUM CHLORIDE 0.9% (Popper) [Ns 0.9% (P)] 50 ml IV Q8HR Potassium Chloride [K-Dur] Med 03/27/25 14:35 Discontinued 40 meq PO X1 ONE Ringers Lactated 1000 ml [Lactated Ringers] 1,000 ml Med 03/27/25 14:34 Discontinued IV 999 mls/hr cefTRIAXone/D5w 1gm IV premix [Rocephin/D5w 1gm IV Med 03/27/25 13:16 Discontinued premix] 1 gm in 50 ml IV STAT EKG (RT) Stat RT 03/27/25 13:16 Draft Oxygen Delivery NOW RT 03/27/25 13:16 Active Tracheostomy Tube Management NEEDED RT 03/27/25 13:23 Active Vital Signs Vital signs: Vital Signs Temperature 100.4 F 03/27/25 13:23 Pulse Rate 110 H 03/27/25 13:23 Respiratory Rate 34 H 03/27/25 13:23 Blood Pressure 158/96 H 03/27/25 13:23 Pulse Oximetry (%) 89 L 03/27/25 13:23 Oxygen Delivery Method Blow-by 03/27/25 13:23 Oxygen Flow Rate 10 03/27/25 13:23 Shortness of Breath / Dyspnea MDM Narrative MDM Narrative:: Patient is a 69-year-old female is in the emergency department with concerns for increased work of breathing. Patient is coming from postacute, she is trach and PEG tube dependent. Presented febrile tachycardic and tachypneic. Ordered sepsis order set provided broad-spectrum antibiotics. Will be judicious with fluids given concern for possible fluid overload. Labs with evidence of hemoglobin 10.5, appears to be at patient's baseline. Patient with hyponatremia sodium 155, potassium 3 will replete. Patient chloride 109, bicarb is 35.4. Patient without any significant transaminitis procalcitonin not elevated. Urinalysis without clear evidence of infection. Per chart review patient has a history of intracranial hemorrhage, chronic hyponatremia and epilepsy. Chest x-ray with significant bilateral pneumonia. Given patient with pneumonia, and sepsis will consult the hospital service for admission. Patient data External records reviewed:: [facility] previous records Clinical information provided by:: patient Social determinants that could affect healthcare access:: other (specify) (trache/peg) Patient has the following chronic illnesses:: see mdm How is presenting disease/condition affected by chronic disease/condition?: exacerbated by Evaluation data The following diagnostics were reviewed and interpreted by me:: lab results, radiology exam(s) and EKG tracing(s) Lab and/or radiology exams considered but not ordered:: None Interpretation Summary: See MDM Medications / Prescriptions Medications or Prescriptions considered but not ordered:: None Medication administrations:: Medication Administration History Acetaminophen (Acetaminophen 325 Mg Tablet) 650 mg PO Q6H PRN PRN Reason: Fever >101.5 Stop: 04/26/25 15:01 Acetaminophen (Acetaminophen 325 Mg Tablet) 650 mg PO Q6H PRN PRN Reason: PAIN SCALE 1-3 (mild Stop: 04/26/25 15:01 Albuterol/Ipratropium (Albuterol/Ipratropium (Duoneb) Rt Day 3 Ml Nebu) 3 ml INH Q4HR PRN PRN Reason: Resp distress Stop: 04/26/25 15:42 Dextrose (Dextrose 50%-Water Inj 50 Ml Syringe) 25 ml IV Q15MIN PRN PRN Reason: BG 50-70 responsive npo pt Stop: 04/26/25 16:52 Dextrose (Dextrose 50%-Water Inj 50 Ml Syringe) 50 ml IV Q15MIN PRN PRN Reason: BG <50 OR BG <70 & pt unresponsive Stop: 04/26/25 16:52 Glucagon (Glucagon Inj 1 Mg Vial) 1 mg IM Q15MIN PRN PRN Reason: BG <70, and no IV access Heparin Sodium (Porcine) (Heparin Sod Inj 5000 Unit/Ml Vial) 5,000 unit SC Q12HR [facility] Stop: 04/10/25 20:59 Cefepime HCl 2 gm/ Sodium (Chloride) 50 mls @ 100 mls/hr IV Q8HR [facility] Stop: 04/04/25 05:59 Dextrose/Sodium Chloride (D5-1/4ns) 500 mls @ 85 mls/hr IV .Q5H53M POLLO Stop: 04/26/25 15:53 Ondansetron HCl (Ondansetron Inj 2 Mg/Ml Inj 2 Ml) 4 mg IVP Q6H PRN; Protocol PRN Reason: NAUSEA OR VOMITING Stop: 04/26/25 15:01 Oxycodone/Acetaminophen (Oxycodone/Apap 5/325 Tablet) 1 tab PO Q6H PRN PRN Reason: PAIN SCALE 4-6 (Moderate Stop: 04/01/25 15:01 Pantoprazole Sodium (Pantoprazole 40 Mg Tablet) 40 mg PO DAILY POLLO Stop: 04/27/25 08:59 Sennosides (Sennosides Syrup 8.8 Mg/5 Ml Udc) 8.8 mg GT HS POLLO; Protocol Stop: 04/26/25 20:59 Discontinued Medications Ceftriaxone Sodium/Dextrose (Rocephin/D5w 1gm Iv Premix) 1 gm in 50 mls @ 100 mls/hr IV STAT STA Stop: 03/27/25 13:45 Last Infusion: 03/27/25 14:20 Dose: Infused Documented By: Admin: 03/27/25 13:56 Dose: 100 mls/hr Documented By: CULLEN Azithromycin 500 mg/ Sodium (Chloride) 250 mls @ 250 mls/hr IV STAT STA Stop: 03/27/25 14:21 Last Infusion: 03/27/25 15:50 Dose: Infused Documented By: Admin: 03/27/25 14:23 Dose: 250 mls/hr Documented By: CULLEN Lactated Ringer's (Lactated Ringers) 1,000 mls @ 999 mls/hr IV .Q1H1M ONE Stop: 03/27/25 15:34 Last Infusion: 03/27/25 15:54 Dose: Infused Documented By: Admin: 03/27/25 14:51 Dose: 999 mls/hr Documented By: LEXI Cefepime HCl 1 gm/ Sodium (Chloride) 50 mls @ 100 mls/hr IV Q8HR POLLO Stop: 04/04/25 05:59 Dextrose/Sodium Chloride (D5-1/4ns) 500 mls @ 100 mls/hr IV .Q5H POLLO Stop: 04/26/25 15:29 Lactated Ringer's (Lactated Ringers) 1,000 mls @ 999 mls/hr IV .Q1H1M ONE Stop: 03/27/25 18:23 Last Admin: 03/27/25 18:25 Dose: 999 mls/hr Documented By: CULLEN Lactated Ringer's (Lactated Ringers) 1,000 mls @ 999 mls/hr IV .Q1H1M ONE Stop: 03/27/25 18:23 Last Admin: 03/27/25 18:29 Dose: 999 mls/hr Documented By: CULLEN Potassium Chloride (Potassium Chloride 20 Meq Tabcr) 40 meq PO X1 ONE Stop: 03/27/25 14:36 Potassium Chloride (Potassium Chloride 20 Meq Tabcr) 40 meq PO X1 ONE Stop: 03/27/25 15:59 Sodium Chloride (Sodium Chloride Rt 10% 15 Ml Nebu) 5 ml INH X1 ONE Stop: 03/27/25 16:38 See above Consultations Consultation(s) initiated? (list below): Yes Consultation #1 (Physician, Specialty, Details): See MDM Diagnosis Shortness of Breath Differential Diagnosis: other (See MDM ) Most likely diagnosis given after review of the tests above:: Pneumonia sepsis Admission Indicated Admission indicated?: indicated Admission Request Was there a request for admission?: Yes Admission Attestation Admission request attestation: Discussed case with [] from Hospitalist service regarding admission. Discussed patients ED course, exam findings, labs, and radiology results. The Hospitalist [agrees,declines] to accept the patient for admission. Disposition Plan Disposition Plan: Admit Critical Care Time Critical Care Time Critical Care Time: Yes Total Critical Care Time (min.): 35 Attestation: The high probability of sudden, clinically significant deterioration in the patient's condition required the highest level of my preparedness to intervene urgently. The services I provided to this patient were to treat and/or prevent clinically significant deterioration. Services included the following: chart data review, reviewing nursing notes and/or old charts, documentation time, territory sales consultant collaboration regarding findings and treatment options, medication orders and management, direct patient care, vital sign assessments and ordering, interpreting and reviewing diagnostic studies and lab tests. Aggregate critical care time includes only time during which I was engaged in work directly related to the patient's care, as described above, whether at bedside or elsewhere in the Emergency Department. It did not include time spent performing other reported procedures or the services of residents, students, nurses or physician assistants. Discharge Plan Plan Patient Disposition: Admit Acute Care w/in Hospital Problem List Clinical Impression: Pneumonia, Sepsis
[2025-03-27 14:11] LABS: Collection Type, Urine Clean Catch; Squamous Epithelial Cell,Urine 0 /hpf (0-5)
[2025-03-27] MEDS: AZITHROMYCIN INJ 500 MG in SODIUM CHLORIDE 0.9% 250 ML 250 ML 250 MG IV (14:23)
[2025-03-27 14:24] LABS: Bacteria,Urine 1+; Bilirubin,Urine Negative (Negative); Blood,Urine Negative (Negative); Clarity,Urine Clear (Clear/Hazy); Color,Urine Yellow (Lt Yel-Yel); Glucose, Urine Negative (Negative); Ketones,Urine Negative (Negative); Leukocyte Esterase,Urine Negative (Negative); Nitrite,Urine Negative (Negative); PH,Urine 7.0 (5.0-7.0); Protein,Urine Trace (Neg - Trace); RBC,Urine 4 /hpf (0-3); Specific Gravity,Urine 1.014 (1.001-1.035); Urobilinogen,Urine Negative mg/dL (0.0-1.0); WBC,Urine 2 /hpf (0-5)
[2025-03-27] MEDS: RINGERS LACTATED 1000 ML 1,000 ML 999 ML IV ×3 (14:51→18:29)
--- NOTE | 2025-03-27 15:58 | PD.HHHP ---
Documentation for date of: 03/27/25 HPI - Hospitalist History of Present Illness History of present illness: CC: Increased work of breathing HPI: Patient is a 69-year-old female with significant past medical history of chronic respiratory failure with trach and PEG and G-tube, ICH, TBI, essential hypertension, seizure disorder, GERD, chronic hyponatremia who presented to the ED with reports of respiratory distress. All reports were from nursing staff and subacute as well as from ED staff as the patient was not able to convey her symptomatology or subjective complaints. Of note the patient does have a POLST form limiting treatment options, the patient is DNR In the ED, patient was hypertensive with initial BP of 158/96, tachycardic with a rate of 110, tachypneic with a respiratory rate of 34, febrile with a Tmax of 100.4 and hypoxic, patient's SpO2 was 87% at the time of my visit on blow-by. Significant labs include a normal WBC, hemoglobin 10.5, sodium of 155, potassium 3, chloride 109, bicarb 35.4, glucose 165, calculated osmolality at 312, AST of 36, other liver enzymes normal, alk phos 191, Pro-Singh negative, UA demonstrating 4+ RBCs and 1+ bacteria although WBCs are 8 2. EKG was a poor study, per my read appears sinus tachycardia with a rate of approximately 112. Chest x-ray demonstrating bilateral pneumonia. ROS: Unable to obtain PAST MEDICAL HISTORY: See HPI ALLERGIES none documented MEDICATIONS: Per subacute records however pending final reconciliation Acetaminophen 650 mg G-tube every 6 hours as needed Dulcolax 10 mg TN as needed Esomeprazole 40 mg capsule 40 mg G-tube daily Ipratropium bromide 3 puffs inhaled every 4 hours as needed K-Phos 250 mg G-tube daily Losartan 100 mg G-tube nightly Milk of mag 30 mL G-tube as needed Multivitamin per G-tube, 1 daily Senna 17.2 mg G-tube nightly Sodium chloride tablets 1000 mg G-tube twice daily FAMILY HISTORY: Noncontributory SOCIAL HISTORY: From [facility] subacute facility, Dr. Kenney is the overseeing physician. Meds Home Medications and Allergies Allergies Allergy/AdvReac Type Severity Reaction Status Date / Time No Known Allergies Allergy Verified 03/27/25 13:04 Exam Vital Signs Temp Pulse Resp BP Pulse Ox O2 Del Method O2 Flow Rate 100.4 F 112 H 34 H 158/96 H 93 L Blow-by 10 03/27/25 13:23 03/27/25 13:24 03/27/25 13:24 03/27/25 13:23 03/27/25 13:24 03/27/25 13:23 03/27/25 13:24 FiO2 50 03/27/25 13:24 Narrative GENERAL APPEARANCE: Some respiratory distress, discomfort HEENT: Normocephalic, atraumatic, extraocular movements intact. Pupils: Equal reacting to light and accommodation NECK: Supple, trach collar in place, copious secretions in tracheostomy tube CARDIOVASULAR: Tachycardic, rate 128 time of bedside visit LUNGS/CHEST: Coarse bilaterally ABDOMEN: G-tube in place, soft, nontender x 4 quadrants no pulsatile masses. No rebound, rigidity, or guarding. EXTREMITIES: Normal inspection and palpation. No edema, clubbing or cyanosis. SKIN: Warm and dry without rashes. Normal inspection. MUSCULOSKELETAL: No cervical, thoracic, lumbar or midline bony tenderness. Normal inspection. NEURO: Alert, awake, in moderate distress, not able to answer specific questions Results - Hospitalist Labs Diagrams: 03/27/25 12:55 03/27/25 12:55 Labs: Short CBC 03/27/25 Range/Units 12:55 WBC 9.7 (3.6-11.0) Thou/mm3 Hgb 10.5 L (12.0-16.0) g/dL Hct 35.2 L (36.0-46.0) % Plt Count 260 D (140-440) Thou/mm3 BMP 03/27/25 12:55 Sodium 155 H Potassium 3.0 L Chloride 109 H Carbon Dioxide 35.4 H BUN 17 Creatinine 0.6 Glucose 165 H Calcium 9.3 Liver Function 03/27/25 Range/Units 12:55 Total Bilirubin 0.4 (0.3-1.2) mg/dL AST 36 H (0-34) U/L ALT 47 (10-49) U/L Alkaline Phosphatase 191 H (46-116) U/L Albumin 3.9 (3.4-4.8) gm/dL Urine 03/27/25 Range/Units 14:02 Urine Color Yellow (Lt Yel-Yel) Urine Clarity Clear (Clear/Hazy) Urine pH 7.0 (5.0-7.0) Ur Specific [place] 1.014 (1.001-1.035) Urine Protein Trace (Neg - Trace) Urine Glucose (UA) Negative (Negative) Assessment & Plan -Hospitalist Patient Synopsis The patient is a six 9-year-old female with a significant past medical history of chronic respiratory failure, trach, PEG and G-tube, intracranial hemorrhage, TBI, essential hypertension, seizure disorder, GERD, chronic hyponatremia on salt tabs and fludrocortisone who presented to the ED with reports of increased work of breathing and respiratory distress. Patient is from [facility] subacute, Dr. Kenney oversees this patient. ASSESSMENT: #Sepsis secondary to HAP/VAP, likely secondary to gram-negative organisms, recent history of MDR flavobacte odoratu in 10/2024, and Pseudomonas in 08/2024, both sensitive to cefepime #Acute hypoxic respiratory failure, SpO2 87% on blow-by #Bilateral pneumonia, HAP/VAP as stated above #Hypernatremia, sodium 155 on admission, free water deficit 2.8 L #Anemia, etiology unknown likely chronic disease #Metabolic alkalosis #Sinus tachycardia in setting of infection #Hypokalemia, potassium 3 on arrival #Mild elevated liver enzyme, AST 36 Chronic: #trach/PEG dependent #G-tube, per subacute on Jevity 1.5, 35 mL/h for 22 hours/day. Due to patient's chronic hyponatremia, the facility does not give more than 500 mL of NS via the G-tube per day. #History of ICH and TBI #Essential hypertension #Seizure disorder, unspecified #GERD on PPI #Chronic hyponatremia on fludrocortisone 0.1 mg daily and salt tabs 1000 mg twice daily #Elevated Alk Phos PLAN: - Start broad-spectrum antibiotics, cefepime 2 g every 8 hours for HAP/VAP - Sputum cultures from ET tube ordered - Start D51/4NS at 80 mL/h for hypernatremia, may convert to FWF tomorrow, Na check q4h - ABG ordered - Blood cultures drawn and pending in ED - Iron panel ordered - Cocci/Legionella ordered although lower suspicion for these - Daily labs ordered - Pain control on board with acetaminophen as needed - Replete electrolytes as needed - Restart home meds as appropriate Antimicrobials: Cefepime 2 g every 8 hours: start 03/27 Fluids: D51/4NS 80ml/hr Feeding: G-tube, Jevity 1.5, 35 mL/h for 22 hours/day Analgesic: Tylenol Sedation: None Thromboprophylaxis: Heparin 5000u q12 Ulcer PPx: Protonix 40 mg daily GT Glycemic Cntrl: None for now, Accu-Cheks every 6 hours Bowel Regime: Senna via GT Indwelling Catheter: None CODE STAUS: DNR per POLST form DISPO: Likely in 2 to 3 days pending clinical improvement back to [facility] subacute facility Quality Measures Quality Measures VTE prophylaxis Advance care planning discussed with:: other (POLST FORM)
[2025-03-27 16:23] LABS: Base Excess 5 (-3-3); HCO3 35 mEq/L (20-26); Inspired Oxygen, FIO2 70 %; O2 Saturation 93 % (91-98); PCO2 85 mmHg (32.0-48.0); PO2 79 mmHg (83-108); pH, Arterial 7.23 (7.35-7.45)
[2025-03-27 16:24] LABS: Allen Test Performed/OK; Puncture Site Right Radial
[2025-03-27 17:15] LABS: Iron 59 mcg/dL (50-170); Percent Iron Saturation 19 % (20-55); Total Iron Binding Capacity 297 mcg/dL (250-425); Unsaturated Iron Binding 238 (225-295)
--- NOTE | 2025-03-27 17:26 | PC.NURSE ---
DR GAINES AT BEDSIDE EVALUATING PATIENT, NOTED BP 73/50 VERBAL ORDER FOR LR 1000ML BOLUS TO BE GIVEN.
[2025-03-27 18:18] LABS: Sodium 154 mMol/L (136-145)
[2025-03-27 18:42] LABS: Base Excess, Venous 11 (-3-3); O2 Saturation, Venous 96 % (96-97); PCO2, Venous 37 mmHg (36-56); PO2, Venous 60 mmHg (15-58); pH, Venous 7.57 (7.33-7.66)
[2025-03-27] MEDS: HEPARIN SOD INJ 5000 UNIT/ML VIAL SC (22:41)
[2025-03-28] VITALS (12 sets, daily range): BP systolic 75–161; BP diastolic 50–96; PULSE 56–110; RESP 17–30; TEMP 36.1–36.3; O2SAT 92–100; BMI 21.5
[2025-03-28 06:20] LABS: Basophils # (Auto) 0.0 Thou/mm3 (0.0-0.2); Basophils % (Auto) 1 % (0-2.5); Eosinophils # (Auto) 0.2 Thou/mm3 (0.0-0.5); Eosinophils % (Auto) 3 % (0-10); Hematocrit 28.3 % (36.0-46.0); Immature Granulocytes Auto 0.01 Thou/mm3 (0.00-0.00); Lymphocytes # (Auto) 2.3 Thou/mm3 (1.0-4.8); Lymphocytes % (Auto) 36 % (10-50); Mean Corpuscular HGB Conc 30.4 g/dl (31.0-37.0); Mean Corpuscular Hemoglobin 26.8 pg (25.0-35.0); Mean Corpuscular Volume 88 fL (80-100); Monocytes # (Auto) 0.6 Thou/mm3 (0.0-0.8); Monocytes % (Auto) 10 % (0-12); Neutrophils # (Auto) 3.2 Thou/mm3 (1.8-7.7); Neutrophils % (Auto) 51 % (37-80); Nucleated Red Blood Cell # 0.00 Thou/mm3 (0.00-0.00); Nucleated Red Blood Cell % 0 /100 WBC (0); Platelet Count 209 Thou/mm3 (140-440); RDW Standard Deviation 51.6 fL (36.4-46.3); Red Blood Count 3.21 Miln/mm3 (4.00-5.20); White Blood Count 6.4 Thou/mm3 (3.6-11.0)
[2025-03-28 06:21] LABS: Hemoglobin 8.6 g/dL (12.0-16.0)
[2025-03-28 06:36] LABS: Anion Gap 7 (7-16); BUN/Creatinine Ratio 28 Ratio (12-20); Blood Urea Nitrogen 14 mg/dL (9-23); Calcium 8.8 mg/dL (8.3-10.6); Carbon Dioxide 30.9 mMol/L (20.0-31.0); Chloride 110 mMol/L (98-107); Creatinine (Component) 0.5 mg/dL (0.6-1.3); Estimated Creatinine Clearance 94.3 mL/min (>60); Glucose 108 mg/dL (74-106); Magnesium 2.2 mg/dL (1.6-2.6); Osmolality,Calculated 295 (275-295); Potassium 3.7 mMol/L (3.4-5.1); Sodium 148 mMol/L (136-145); eGFR > 60 See Note
[2025-03-28] MEDS: CEFEPIME INJ 2 GM in SODIUM CHLORIDE 0.9% (Popper) 50 ML IV ×3 (08:33→21:47)
[2025-03-28] MEDS: HEPARIN SOD INJ 5000 UNIT/ML VIAL SC ×2 (08:35→20:35)
--- NOTE | 2025-03-28 09:27 | PD.RESPRO ---
Documentation for date of: 03/28/25 Subjective Subjective Interval history: Overnight events: No acute events overnight. Patient was seen and examined at bedside. AM vitals and labs reviewed. Patient appears to be doing much better today. Continues to be on mechanical ventilation. Discussed with daughter regarding the patient's history, the daughter noted that the patient had a possible intracerebral hemorrhage while using the bathroom in 2012, which resulted in the patient falling and hitting her head, which led to her traumatic brain injury. This event resulted in the patient requiring tracheostomy tube. Since then, the patient has been requiring subacute care. When she was first placed at subacute, the patient was doing much better and much more interactive, however this has since slowly worsened over time. Hemoglobin 8.6, sodium 148, potassium 3.7 Continue cefepime for suspected pneumonia. Sputum culture is pending. Dietitian referral ordered. Repeat VBG ordered. Will continue with 1 more liter of D5 quarter NS, reevaluate sodium afterwards, and then potentially resume free water flushes. Review of systems otherwise negative except for what is mentioned above. Exam Vital Signs Temp Pulse Resp BP Pulse Ox O2 Del Method O2 Flow Rate 96.9 F 110 H 21 H 117/96 H 92 L Mechanical Ventilation 10 03/28/25 08:00 03/28/25 08:00 03/28/25 08:00 03/28/25 08:00 03/28/25 08:00 03/28/25 08:00 03/28/25 08:00 FiO2 30 03/28/25 08:00 Narrative Exam Physical Exam: General: Awake, no acute distress. Mostly non-interactive. On mechanical ventilation. Skin: Warm, dry, intact. Head: Normocephalic, atraumatic. Eye: Normal conjunctiva, PERRL. Cardiovascular: Regular rate and rhythm, no murmur, +S1/S2. Respiratory: Mechanical breath sounds on auscultation, respirations unlabored, no crackles, no wheezing. Gastrointestinal: Soft, nontender, non-distended. No guarding or rebound tenderness. GT in place. Extremities: No edema, no cyanosis, no clubbing. Toes contractured bilaterally. Neuro: Non-verbal, minimal movement of upper extremities, no movement lower extremities. No overt cerebellar signs/incoordination. Objective Labs 03/28/25 05:12 03/28/25 14:03 Labs: Laboratory Results - last 24 hr 03/27/25 03/27/25 03/27/25 12:55 14:02 16:17 WBC 9.7 RBC 3.98 L Hgb 10.5 L Hct 35.2 L MCV 88 MCH 26.4 MCHC 29.8 L RDW Std Deviation 51.3 H Plt Count 260 D Neut % (Auto) 72 Lymph % (Auto) 19 [place] % (Auto) 8 Eos % (Auto) 1 Baso % (Auto) 0 Neut # (Auto) 7.0 Lymph # (Auto) 1.8 [place] # (Auto) 0.8 Eos # (Auto) 0.1 Baso # (Auto) 0.0 Immature Gran # (Auto) 0.03 H Absolute Nucleated RBC 0.00 Immature Gran % 0 Nucleated RBC % 0 PT 11.3 INR 1.0 APTT 25.2 Puncture Site Right Radial ABG pH 7.23 L ABG pCO2 85 H* ABG pO2 79 L ABG HCO3 35 H ABG O2 Saturation 93 ABG Base Excess 5 H VBG pH VBG pCO2 VBG pO2 VBG O2 Sat (Ale[place]) VBG Base Excess FiO2 70 Sodium 155 H Potassium 3.0 L Chloride 109 H Carbon Dioxide 35.4 H Anion Gap 11 BUN 17 Creatinine 0.6 Estim Creat Clear Calc 78.6 eGFR > 60 BUN/Creatinine Ratio 28 H Glucose 165 H Calculated Osmolality 312 H Lactic Acid 1.1 Calcium 9.3 Corrected Calcium 9.4 Magnesium Iron 59 TIBC 297 Iron Saturation 19 L Unsat Iron Binding 238 Total Bilirubin 0.4 AST 36 H ALT 47 Alkaline Phosphatase 191 H Total Protein 7.4 Albumin 3.9 Globulin 3.5 Albumin/Globulin Ratio 1.1 L Procalcitonin 0.10 Ur Collection Type Clean Catch Urine Color Yellow Urine Clarity Clear Urine pH 7.0 Ur Specific [place] 1.014 Urine Protein Trace Urine Glucose (UA) Negative Urine Ketones Negative Urine Blood Negative Urine Nitrite Negative Urine Bilirubin Negative Urine Urobilinogen (Auto) Negative Ur Leukocyte Esterase Negative Urine RBC 4 H Urine WBC 2 Ur Squamous Epith Cells 0 Urine Bacteria 1+ A 03/27/25 03/28/25 17:21 05:12 WBC 6.4 RBC 3.21 L Hgb 8.6 L Hct 28.3 L MCV 88 MCH 26.8 MCHC 30.4 L RDW Std Deviation 51.6 H Plt Count 209 D Neut % (Auto) 51 Lymph % (Auto) 36 [place] % (Auto) 10 Eos % (Auto) 3 Baso % (Auto) 1 Neut # (Auto) 3.2 Lymph # (Auto) 2.3 [place] # (Auto) 0.6 Eos # (Auto) 0.2 Baso # (Auto) 0.0 Immature Gran # (Auto) 0.01 H Absolute Nucleated RBC 0.00 Immature Gran % 0 Nucleated RBC % 0 PT INR APTT Puncture Site ABG pH ABG pCO2 ABG pO2 ABG HCO3 ABG O2 Saturation ABG Base Excess VBG pH 7.57 VBG pCO2 37 VBG pO2 60 H VBG O2 Sat (Ale[place]) 96 VBG Base Excess 11 H FiO2 Sodium 154 H 148 H Potassium 3.7 D Chloride 110 H Carbon Dioxide 30.9 Anion Gap 7 BUN 14 Creatinine 0.5 L Estim Creat Clear Calc 94.3 eGFR > 60 BUN/Creatinine Ratio 28 H Glucose 108 H D Calculated Osmolality 295 Lactic Acid Calcium 8.8 Corrected Calcium Magnesium 2.2 Iron TIBC Iron Saturation Unsat Iron Binding Total Bilirubin AST ALT Alkaline Phosphatase Total Protein Albumin Globulin Albumin/Globulin Ratio Procalcitonin Ur Collection Type Urine Color Urine Clarity Urine pH Ur Specific [place] Urine Protein Urine Glucose (UA) Urine Ketones Urine Blood Urine Nitrite Urine Bilirubin Urine Urobilinogen (Auto) Ur Leukocyte Esterase Urine RBC Urine WBC Ur Squamous Epith Cells Urine Bacteria ABG Interpretation ABG results: 03/27/25 03/27/25 16:17 17:21 ABG pH 7.23 L ABG pCO2 85 H* ABG pO2 79 L ABG HCO3 35 H ABG O2 Saturation 93 ABG Base Excess 5 H VBG pH 7.57 VBG pCO2 37 VBG pO2 60 H VBG Base Excess 11 H Quality Measures Quality Measures sepsis Current suspected stage: ruled out (Sepsis suspected initially, but ruled out due to no end organ damage) Possible source: pulmonary Blood cultures ordered: completed in ED Antibiotic ordered: Yes Advance care planning discussed with:: patient and child Assessment & Plan Assessment Current Active Medications: Generic Name Dose Route Start Last Admin Trade Name Freq PRN Reason Stop Dose Admin Acetaminophen 650 mg 03/27/25 15:02 Acetaminophen 325 Mg Tablet PO 04/26/25 15:01 Q6H PRN Fever >101.5 Acetaminophen 650 mg 03/27/25 15:02 Acetaminophen 325 Mg Tablet PO 04/26/25 15:01 Q6H PRN PAIN SCALE 1-3 (mild Albuterol/Ipratropium 3 ml 03/27/25 15:43 Albuterol/Ipratropium (Duoneb) Rt Day 3 Ml Nebu INH 04/26/25 15:42 Q4HR PRN Resp distress Dextrose 25 ml 03/27/25 16:53 Dextrose 50%-Water Inj 50 Ml Syringe IV 04/26/25 16:52 Q15MIN PRN BG 50-70 responsive npo pt Dextrose 50 ml 03/27/25 16:53 Dextrose 50%-Water Inj 50 Ml Syringe IV 04/26/25 16:52 Q15MIN PRN BG <50 OR BG <70 & pt unresponsive Glucagon 1 mg 03/27/25 16:53 Glucagon Inj 1 Mg Vial IM Q15MIN PRN BG <70, and no IV access Heparin Sodium (Porcine) 5,000 unit 03/27/25 21:00 03/28/25 08:35 Heparin Sod Inj 5000 Unit/Ml Vial SC 04/10/25 20:59 5,000 unit Q12HR POLLO Administration Dextrose/Sodium Chloride 1,000 mls @ 85 mls/hr 03/27/25 20:15 03/28/25 09:24 D5-1/4ns IV 04/26/25 20:14 Not Given .[id number] POLLO Cefepime HCl 2 gm/ Sodium 50 mls @ 100 mls/hr 03/28/25 08:15 03/28/25 08:33 Chloride IV 04/04/25 08:14 100 mls/hr Q8HR POLLO Administration Ondansetron HCl 4 mg 03/27/25 15:02 Ondansetron Inj 2 Mg/Ml Inj 2 Ml IVP 04/26/25 15:01 Q6H PRN NAUSEA OR VOMITING Protocol Oxycodone/Acetaminophen 1 tab 03/27/25 15:02 Oxycodone/Apap 5/325 Tablet PO 04/01/25 15:01 Q6H PRN PAIN SCALE 4-6 (Moderate Pantoprazole Sodium 40 mg 03/28/25 09:00 Pantoprazole Inj 40 Mg Vial IVP 04/27/25 08:59 QDAY POLLO Sennosides 8.8 mg 03/27/25 21:00 03/27/25 21:00 Sennosides Syrup 8.8 Mg/5 Ml [facility] [place] 04/26/25 20:59 Not Given HS [facility] Protocol Plan This patient is a 69-year-old female with past medical history of chronic respiratory failure s/p trach, s/p PEG tube and G-tube, ICH in 2012 which led to a fall back resulted in TBI, seizure disorder, GERD, and chronic hyponatremia on salt tablets and fludrocortisone who presented to [facility] ED from subacute on 03/27 due to increased work of breathing and respiratory distress. Patient was admitted for management of acute hypercapnic and hypoxic respiratory failure. #Acute hypercapnic respiratory failure and #Acute hypoxic respiratory failure 2/2 #HAP/VAP, bilateral Patient presented with increased work of breathing and was found to have SpO2 of 87% on blow-by during admission. Initial ABG showed pCO2 85, which quickly corrected on repeat VBG to 37 after starting the patient on mechanical ventilation. This respiratory failure is likely secondary to hospital/ventilator associated pneumonia as she was found to have significant bilateral pneumonia on chest x-ray 03/27. Sepsis is ruled out given lack of endorgan damage. Plan: Continue cefepime 2 g every 8 hours (03/28??) Blood cultures collected 03/27, pending Sputum culture collected 03/27, pending Cocci serology ordered, pending Legionella urine antigen ordered, pending Repeat VBG ordered 03/28, resulted as pCO2 32 #Hypernatremia, resolving #Chronic hyponatremia Patient had sodium of 135 on admission with a free water deficit of 2.8 L. The patient is normally in chronic hyponatremia as she is very sensitive to free water flushes. Exact etiology of her hyponatremia is unclear, however it is likely related to her HAP/VAP. Possible infection related SIADH. Patient responded well with 3 L of LR in the ED followed by 1 L D5W, lowering sodium to 148. Plan: Additional 1 L of D5W, will reassess sodium afterwards to potentially resume free water flushes Sodium check every 4 hours Continue to monitor, replete as necessary #History of ICH, leading to TBI #Chronic respiratory failure s/p trach Patient has a history of intracerebral hemorrhage back in 2012, which led to a fall, resulting in a traumatic brain injury. The traumatic brain injury resulted in chronic respiratory failure, requiring the patient to be status post tracheostomy tube. Patient is managed in subacute since. Plan: Continue to monitor Continue mechanical ventilation, transition to blow-by as tolerated #History of seizure disorder, unspecified Patient is noted to have a history of seizure disorder per chart review. Patient has been prescribed breakthrough seizure medication, however does not seem to be on any sort of antiseizure medication. Plan: Pending official med rec #GERD, on PPI Patient is noted to have a history of GERD and takes esomeprazole in subacute. Plan: Pantoprazole 40 mg IVP daily DVT Prophylaxis: Heparin GI Prophylaxis: Protonix Bowel: Senna syrup Diet: Jevity Burt: Yes Lines: Peripheral IV, Trach, PEG, GT Antibiotics: Cefepime Code Status: FULL Reason for Hospitalization: AHRF Other Barriers to Discharge: Hypernatremia Patient plan of care was discussed with attending physician Dr. Lala Ram, PGY1 Attending Provider Attestation/Addendum I have discussed and was present for the essential components of the history, physical examination, diagnosis, and treatment plan with the resident. I agree with the patient's care as documented by the resident and amended herein by me. Zachariah Reeves DO. Although this document has been carefully reviewed, there may still be some phonetic and other typographical errors. These errors are purely grammatical due to imperfections in the software program and should not be construed in any way to compromise the substance of the patient's medical care during this visit.
[2025-03-28] MEDS: ACETAMINOPHEN 325 MG TABLET 650 MG PO (10:36)
[2025-03-28 10:54] LABS: Base Excess, Venous 6 (-3-3); O2 Saturation, Venous 101 % (96-97); PCO2, Venous 32 mmHg (36-56); PO2, Venous 171 mmHg (15-58); pH, Venous 7.55 (7.33-7.66)
[2025-03-28 14:34] LABS: Sodium 143 mMol/L (136-145)
[2025-03-28 15:03] LABS: Cocci Serology, IgM Negative (Negative)
[2025-03-28 17:39] LABS: Sodium 144 mMol/L (136-145)
[2025-03-29] VITALS (14 sets, daily range): BP systolic 123–161; BP diastolic 85–98; PULSE 62–91; RESP 18–20; TEMP 36–36.2; O2SAT 95–99
[2025-03-29] MEDS: CEFEPIME INJ 2 GM in SODIUM CHLORIDE 0.9% (Popper) 50 ML IV ×3 (05:03→22:11)
[2025-03-29 05:19] LABS: Basophils # (Auto) 0.0 Thou/mm3 (0.0-0.2); Basophils % (Auto) 1 % (0-2.5); Eosinophils # (Auto) 0.2 Thou/mm3 (0.0-0.5); Eosinophils % (Auto) 3 % (0-10); Hematocrit 31.2 % (36.0-46.0); Hemoglobin 9.6 g/dL (12.0-16.0); Immature Granulocytes Auto 0.02 Thou/mm3 (0.00-0.00); Lymphocytes # (Auto) 1.6 Thou/mm3 (1.0-4.8); Lymphocytes % (Auto) 24 % (10-50); Mean Corpuscular HGB Conc 30.8 g/dl (31.0-37.0); Mean Corpuscular Hemoglobin 26.6 pg (25.0-35.0); Mean Corpuscular Volume 86 fL (80-100); Monocytes # (Auto) 0.7 Thou/mm3 (0.0-0.8); Monocytes % (Auto) 10 % (0-12); Neutrophils # (Auto) 4.2 Thou/mm3 (1.8-7.7); Neutrophils % (Auto) 62 % (37-80); Nucleated Red Blood Cell # 0.00 Thou/mm3 (0.00-0.00); Nucleated Red Blood Cell % 0 /100 WBC (0); Platelet Count 226 Thou/mm3 (140-440); RDW Standard Deviation 50.8 fL (36.4-46.3); Red Blood Count 3.61 Miln/mm3 (4.00-5.20); White Blood Count 6.7 Thou/mm3 (3.6-11.0)
[2025-03-29 05:40] LABS: Anion Gap 12 (7-16); BUN/Creatinine Ratio 20 Ratio (12-20); Blood Urea Nitrogen 10 mg/dL (9-23); Calcium 9.4 mg/dL (8.3-10.6); Carbon Dioxide 26.9 mMol/L (20.0-31.0); Chloride 106 mMol/L (98-107); Creatinine (Component) 0.5 mg/dL (0.6-1.3); Estimated Creatinine Clearance 94.3 mL/min (>60); Glucose 112 mg/dL (74-106); Osmolality,Calculated 288 (275-295); Potassium 3.4 mMol/L (3.4-5.1); Sodium 145 mMol/L (136-145); eGFR > 60 See Note
[2025-03-29] MEDS: HEPARIN SOD INJ 5000 UNIT/ML VIAL SC ×2 (08:05→22:12)
--- NOTE | 2025-03-29 11:58 | PD.RESPRO ---
Documentation for date of: 03/29/25 Subjective Subjective Interval history: Overnight events: No acute events overnight. Patient was seen and examined at bedside. AM vitals and labs reviewed. Patient did not appear to be in any acute distress at this time. Patient not very interactive today. Respiratory status continues to be well on mechanical ventilation. Hemoglobin 9.6, sodium 145 Urine cultures grew Klebsiella, pending sputum culture. Continue cefepime as Klebsiella in urine is sensitive, and still pending sputum culture. Will discuss with dietary regarding potential free water flushes for the patient tomorrow. Will hold off on frequent sodium checks for now. Review of systems otherwise negative except for what is mentioned above. Exam Vital Signs Temp Pulse Resp BP Pulse Ox O2 Del Method O2 Flow Rate 97.1 F 87 20 152/97 H 98 Mechanical Ventilation 10 03/29/25 08:00 03/29/25 11:50 03/29/25 08:00 03/29/25 08:00 03/29/25 11:50 03/29/25 08:00 03/29/25 08:00 FiO2 30 03/29/25 11:50 Narrative Exam Physical Exam: General: Asleep, no acute distress. Non-interactive. On mechanical ventilation. Skin: Warm, dry, intact. Head: Normocephalic, atraumatic. Eye: Normal conjunctiva, PERRL. Cardiovascular: Regular rate and rhythm, no murmur, +S1/S2. Respiratory: Mechanical breath sounds on auscultation, respirations unlabored, no crackles, no wheezing. Gastrointestinal: Soft, nontender, non-distended. No guarding or rebound tenderness. GT in place. Extremities: No edema, no cyanosis, no clubbing. Toes contractured bilaterally. Neuro: Non-verbal, minimal movement of upper extremities, no movement lower extremities. No overt cerebellar signs/incoordination. Objective Labs 03/29/25 04:41 03/29/25 04:41 Labs: Laboratory Results - last 24 hr 03/27/25 03/28/25 03/28/25 17:21 14:03 17:12 WBC RBC Hgb Hct MCV MCH MCHC RDW Std Deviation Plt Count Neut % (Auto) Lymph % (Auto) [place] % (Auto) Eos % (Auto) Baso % (Auto) Neut # (Auto) Lymph # (Auto) [place] # (Auto) Eos # (Auto) Baso # (Auto) Immature Gran # (Auto) Absolute Nucleated RBC Immature Gran % Nucleated RBC % Sodium 143 144 Potassium Chloride Carbon Dioxide Anion Gap BUN Creatinine Estim Creat Clear Calc eGFR BUN/Creatinine Ratio Glucose Calculated Osmolality Calcium Coccidioides IgM Ab Negative 03/29/25 04:41 WBC 6.7 RBC 3.61 L Hgb 9.6 L Hct 31.2 L MCV 86 MCH 26.6 MCHC 30.8 L RDW Std Deviation 50.8 H Plt Count 226 Neut % (Auto) 62 Lymph % (Auto) 24 [place] % (Auto) 10 Eos % (Auto) 3 Baso % (Auto) 1 Neut # (Auto) 4.2 Lymph # (Auto) 1.6 [place] # (Auto) 0.7 Eos # (Auto) 0.2 Baso # (Auto) 0.0 Immature Gran # (Auto) 0.02 H Absolute Nucleated RBC 0.00 Immature Gran % 0 Nucleated RBC % 0 Sodium 145 Potassium 3.4 Chloride 106 Carbon Dioxide 26.9 Anion Gap 12 BUN 10 Creatinine 0.5 L Estim Creat Clear Calc 94.3 eGFR > 60 BUN/Creatinine Ratio 20 Glucose 112 H Calculated Osmolality 288 Calcium 9.4 Coccidioides IgM Ab ABG Interpretation ABG results: 03/27/25 03/27/25 03/28/25 16:17 17:21 10:45 ABG pH 7.23 L ABG pCO2 85 H* ABG pO2 79 L ABG HCO3 35 H ABG O2 Saturation 93 ABG Base Excess 5 H VBG pH 7.57 7.55 VBG pCO2 37 32 L VBG pO2 60 H 171 H D VBG Base Excess 11 H 6 H Quality Measures Quality Measures sepsis Current suspected stage: ruled out Possible source: pulmonary Blood cultures ordered: completed in ED Antibiotic ordered: Yes Advance care planning discussed with:: patient Assessment & Plan Assessment Current Active Medications: Generic Name Dose Route Start Last Admin Trade Name Freq PRN Reason Stop Dose Admin Acetaminophen 650 mg 03/27/25 15:02 Acetaminophen 325 Mg Tablet PO 04/26/25 15:01 Q6H PRN Fever >101.5 Acetaminophen 650 mg 03/27/25 15:02 03/28/25 10:36 Acetaminophen 325 Mg Tablet PO 04/26/25 15:01 650 mg Q6H PRN Administration PAIN SCALE 1-3 (mild Albuterol/Ipratropium 3 ml 03/27/25 15:43 Albuterol/Ipratropium (Duoneb) Rt Day 3 Ml Nebu INH 04/26/25 15:42 Q4HR PRN Resp distress Dextrose 25 ml 03/27/25 16:53 Dextrose 50%-Water Inj 50 Ml Syringe IV 04/26/25 16:52 Q15MIN PRN BG 50-70 responsive npo pt Dextrose 50 ml 03/27/25 16:53 Dextrose 50%-Water Inj 50 Ml Syringe IV 04/26/25 16:52 Q15MIN PRN BG <50 OR BG <70 & pt unresponsive Glucagon 1 mg 03/27/25 16:53 Glucagon Inj 1 Mg Vial IM Q15MIN PRN BG <70, and no IV access Heparin Sodium (Porcine) 5,000 unit 03/27/25 21:00 03/29/25 08:05 Heparin Sod Inj 5000 Unit/Ml Vial SC 04/10/25 20:59 5,000 unit Q12HR POLLO Administration Cefepime HCl 2 gm/ Sodium 50 mls @ 100 mls/hr 03/28/25 08:15 03/29/25 05:03 Chloride IV 04/04/25 08:14 100 mls/hr Q8HR POLLO Administration Ondansetron HCl 4 mg 03/27/25 15:02 Ondansetron Inj 2 Mg/Ml Inj 2 Ml IVP 04/26/25 15:01 Q6H PRN NAUSEA OR VOMITING Protocol Oxycodone/Acetaminophen 1 tab 03/27/25 15:02 Oxycodone/Apap 5/325 Tablet PO 04/01/25 15:01 Q6H PRN PAIN SCALE 4-6 (Moderate Pantoprazole Sodium 40 mg 03/28/25 09:00 03/29/25 08:05 Pantoprazole Inj 40 Mg Vial IVP 04/27/25 08:59 40 mg QDAY POLLO Administration Sennosides 8.8 mg 03/27/25 21:00 03/28/25 20:34 Sennosides Syrup 8.8 Mg/5 Ml Udc GT 04/26/25 20:59 Not Given HS POLLO Protocol Plan This patient is a 69-year-old female with past medical history of chronic respiratory failure s/p trach, s/p PEG tube and G-tube, ICH in 2012 which 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 Patient was admitted for management of acute hypercapnic and hypoxic respiratory failure. #Acute hypercapnic respiratory failure and #Acute hypoxic respiratory failure 2/2 #HAP/VAP, bilateral #Urinary tract infection, Klebsiella Patient presented with increased work of breathing and was found to have SpO2 of 87% on blow-by during admission. Initial ABG showed pCO2 85, which quickly corrected on repeat VBG to 37 after starting the patient on mechanical ventilation. This respiratory failure is likely secondary to hospital/ventilator associated pneumonia as she was found to have significant bilateral pneumonia on chest x-ray 03/27. Sepsis is ruled out given lack of endorgan damage. Diagnostics: Urine culture collected 03/27, grew Klebsiella pneumonia Blood cultures collected 03/27, no growth after 48 hours Repeat VBG ordered 03/28, resulted as pCO2 32 Plan: Continue cefepime 2 g every 8 hours (03/28??) Sputum culture collected 03/27, pending Cocci serology ordered, pending Legionella urine antigen ordered, pending #Hypernatremia, resolved #Chronic hyponatremia Patient had sodium of 135 on admission with a free water deficit of 2.8 L. The patient is normally in chronic hyponatremia as she is very sensitive to free water flushes. Exact etiology of her hyponatremia is unclear, however it is likely related to her HAP/VAP. Possible infection related SIADH. Patient responded well with 3 L of LR in the ED followed by 1 L D5W, lowering sodium to 148. Patient noted to have sodium within normal limits on 03/29. Plan: Will discuss with dietary regarding free water flushes with tube feeds as patient does have history of chronic hyponatremia with free water flushes in subacute Continue to monitor, replete as necessary #History of ICH, leading to TBI #Chronic respiratory failure s/p trach Patient has a history of intracerebral hemorrhage back in 2012, which led to a fall, resulting in a traumatic brain injury. The traumatic brain injury resulted in chronic respiratory failure, requiring the patient to be status post tracheostomy tube. Patient is managed in subacute since. Plan: Continue to monitor Continue mechanical ventilation, transition to blow-by as tolerated #History of seizure disorder, unspecified Patient is noted to have a history of seizure disorder per chart review. Patient has been prescribed breakthrough seizure medication, however does not seem to be on any sort of antiseizure medication. Plan: Pending official med rec #GERD, on PPI Patient is noted to have a history of GERD and takes esomeprazole in subacute. Plan: Pantoprazole 40 mg IVP daily DVT Prophylaxis: Heparin GI Prophylaxis: Protonix Bowel: Senna syrup Diet: Jevity Burt: Yes Lines: Peripheral IV, Trach, PEG, GT Antibiotics: Cefepime Code Status: FULL Reason for Hospitalization: AHRF Other Barriers to Discharge: Sputum culture Patient plan of care was discussed with attending physician Dr. Lala Ram, PGY1 Attending Provider Attestation/Addendum I have discussed and was present for the essential components of the history, physical examination, diagnosis, and treatment plan with the resident. I agree with the patient's care as documented by the resident and amended herein by me. Zachariah Reeves DO. Although this document has been carefully reviewed, there may still be some phonetic and other typographical errors. These errors are purely grammatical due to imperfections in the software program and should not be construed in any way to compromise the substance of the patient's medical care during this visit.
[2025-03-29] MEDS: ACETAMINOPHEN 325 MG TABLET 650 MG PO (16:32)
[2025-03-29] MEDS: LOSARTAN POTASSIUM 25 MG TABLET 100 MG GT (18:23)
[2025-03-29] MEDS: SENNOSIDES SYRUP 8.8 MG/5 ML UDC GT (22:11)
[2025-03-30] VITALS (14 sets, daily range): BP systolic 111–145; BP diastolic 77–92; PULSE 62–92; RESP 18–21; TEMP 36.1–36.7; O2SAT 97–99
[2025-03-30] MEDS: CEFEPIME INJ 2 GM in SODIUM CHLORIDE 0.9% (Popper) 50 ML IV ×3 (05:16→21:01)
[2025-03-30 05:51] LABS: Basophils # (Auto) 0.1 Thou/mm3 (0.0-0.2); Basophils % (Auto) 1 % (0-2.5); Eosinophils # (Auto) 0.2 Thou/mm3 (0.0-0.5); Eosinophils % (Auto) 3 % (0-10); Hematocrit 30.4 % (36.0-46.0); Hemoglobin 9.7 g/dL (12.0-16.0); Immature Granulocytes Auto 0.01 Thou/mm3 (0.00-0.00); Lymphocytes # (Auto) 1.4 Thou/mm3 (1.0-4.8); Lymphocytes % (Auto) 24 % (10-50); Mean Corpuscular HGB Conc 31.9 g/dl (31.0-37.0); Mean Corpuscular Hemoglobin 26.9 pg (25.0-35.0); Mean Corpuscular Volume 84 fL (80-100); Monocytes # (Auto) 0.5 Thou/mm3 (0.0-0.8); Monocytes % (Auto) 9 % (0-12); Neutrophils # (Auto) 3.7 Thou/mm3 (1.8-7.7); Neutrophils % (Auto) 63 % (37-80); Nucleated Red Blood Cell # 0.00 Thou/mm3 (0.00-0.00); Nucleated Red Blood Cell % 0 /100 WBC (0); Platelet Count 215 Thou/mm3 (140-440); RDW Standard Deviation 49.4 fL (36.4-46.3); Red Blood Count 3.60 Miln/mm3 (4.00-5.20); White Blood Count 5.9 Thou/mm3 (3.6-11.0)
[2025-03-30 06:11] LABS: Anion Gap 11 (7-16); BUN/Creatinine Ratio 25 Ratio (12-20); Blood Urea Nitrogen 15 mg/dL (9-23); Calcium 9.3 mg/dL (8.3-10.6); Carbon Dioxide 27.7 mMol/L (20.0-31.0); Chloride 106 mMol/L (98-107); Creatinine (Component) 0.6 mg/dL (0.6-1.3); Estimated Creatinine Clearance 78.6 mL/min (>60); Glucose 127 mg/dL (74-106); Osmolality,Calculated 291 (275-295); Potassium 2.9 mMol/L (3.4-5.1); Sodium 145 mMol/L (136-145); eGFR > 60 See Note
[2025-03-30] MEDS: POTASSIUM CHLORIDE 10% 20 MEQ/15 ML UDC 40 MEQ GT (08:06)
[2025-03-30] MEDS: HEPARIN SOD INJ 5000 UNIT/ML VIAL SC ×2 (08:06→21:02)
--- NOTE | 2025-03-30 09:12 | PC.SS ---
Follow up note: On ventilator. On IV antibiotic. Pt will return to [facility] upon dc.
[2025-03-30] MEDS: POTASSIUM CHLORIDE 10% 20 MEQ/15 ML UDC GT (10:18)
--- NOTE | 2025-03-30 11:32 | ESPR_ITS ---
<Statement entered by Scot Mendoza MD - 03/31/25 17:09> I have personally seen and examined the patient, agree with residents assessment and plan Patient plan of care was discussed with the attending physician, Dr. Lala Mendoza, PGY2 Documentation for date of: 03/30/25 Subjective Subjective Interval history: Overnight events: No acute events overnight. Patient was seen and examined at bedside. AM vitals and labs reviewed. Patient did not appear to be in any acute distress at this time. Continuing to breathe comfortably on mechanical ventilation. Losartan 100 mg daily was resumed overnight. Potassium 2.9 Pending sputum culture results. Continue cefepime until 04/03 to complete 7-day course. Will discuss with dietary regarding free water flushes. Will attempt to wean off mechanical ventilation to resume blow-by. Expected discharge within the next 24 hours. Review of systems otherwise negative except for what is mentioned above. Exam Vital Signs Temp Pulse Resp BP Pulse Ox O2 Del Method O2 Flow Rate 97.5 F 71 20 111/79 99 Mechanical Ventilation 10 03/30/25 08:00 03/30/25 08:00 03/30/25 08:00 03/30/25 08:00 03/30/25 08:00 03/30/25 08:00 03/29/25 16:00 FiO2 30 03/30/25 08:00 Narrative Exam Physical Exam: General: Asleep, no acute distress. Non-interactive. On mechanical ventilation. Skin: Warm, dry, intact. Head: Normocephalic, atraumatic. Eye: Normal conjunctiva, PERRL. Cardiovascular: Regular rate and rhythm, no murmur, +S1/S2. Respiratory: Mechanical breath sounds on auscultation, respirations unlabored, no crackles, no wheezing. Gastrointestinal: Soft, nontender, non-distended. No guarding or rebound tenderness. GT in place. Extremities: No edema, no cyanosis, no clubbing. Toes contractured bilaterally. Neuro: Non-verbal, minimal movement of upper extremities, no movement lower extremities. No overt cerebellar signs/incoordination. Objective Labs 03/31/25 04:35 03/31/25 04:35 Labs: Laboratory Results - last 24 hr 03/30/25 04:30 WBC 5.9 RBC 3.60 L Hgb 9.7 L Hct 30.4 L MCV 84 MCH 26.9 MCHC 31.9 RDW Std Deviation 49.4 H Plt Count 215 Neut % (Auto) 63 Lymph % (Auto) 24 [place] % (Auto) 9 Eos % (Auto) 3 Baso % (Auto) 1 Neut # (Auto) 3.7 Lymph # (Auto) 1.4 [place] # (Auto) 0.5 Eos # (Auto) 0.2 Baso # (Auto) 0.1 Immature Gran # (Auto) 0.01 H Absolute Nucleated RBC 0.00 Immature Gran % 0 Nucleated RBC % 0 Sodium 145 Potassium 2.9 L D Chloride 106 Carbon Dioxide 27.7 Anion Gap 11 BUN 15 Creatinine 0.6 Estim Creat Clear Calc 78.6 eGFR > 60 BUN/Creatinine Ratio 25 H Glucose 127 H Calculated Osmolality 291 Calcium 9.3 ABG Interpretation ABG results: 03/27/25 03/27/25 03/28/25 16:17 17:21 10:45 ABG pH 7.23 L ABG pCO2 85 H* ABG pO2 79 L ABG HCO3 35 H ABG O2 Saturation 93 ABG Base Excess 5 H VBG pH 7.57 7.55 VBG pCO2 37 32 L VBG pO2 60 H 171 H D VBG Base Excess 11 H 6 H Quality Measures Quality Measures sepsis Current suspected stage: ruled out Possible source: pulmonary Blood cultures ordered: completed in ED Antibiotic ordered: Yes Advance care planning discussed with:: patient Assessment & Plan Assessment Current Active Medications: Generic Name Dose Route Start Last Admin Trade Name Freq PRN Reason Stop Dose Admin Acetaminophen 650 mg 03/27/25 15:02 Acetaminophen 325 Mg Tablet PO 04/26/25 15:01 Q6H PRN Fever >101.5 Acetaminophen 650 mg 03/27/25 15:02 03/29/25 16:32 Acetaminophen 325 Mg Tablet PO 04/26/25 15:01 650 mg Q6H PRN Administration PAIN SCALE 1-3 (mild Albuterol/Ipratropium 3 ml 03/27/25 15:43 Albuterol/Ipratropium (Duoneb) Rt Day 3 Ml Nebu INH 04/26/25 15:42 Q4HR PRN Resp distress Dextrose 25 ml 03/27/25 16:53 Dextrose 50%-Water Inj 50 Ml Syringe IV 04/26/25 16:52 Q15MIN PRN BG 50-70 responsive npo pt Dextrose 50 ml 03/27/25 16:53 Dextrose 50%-Water Inj 50 Ml Syringe IV 04/26/25 16:52 Q15MIN PRN BG <50 OR BG <70 & pt unresponsive Glucagon 1 mg 03/27/25 16:53 Glucagon Inj 1 Mg Vial IM Q15MIN PRN BG <70, and no IV access Heparin Sodium (Porcine) 5,000 unit 03/27/25 21:00 03/30/25 08:06 Heparin Sod Inj 5000 Unit/Ml Vial SC 04/10/25 20:59 5,000 unit Q12HR POLLO Administration Cefepime HCl 2 gm/ Sodium 50 mls @ 100 mls/hr 03/28/25 08:15 03/30/25 05:16 Chloride IV 04/04/25 08:14 100 mls/hr Q8HR POLLO Administration Losartan Potassium 100 mg 03/30/25 21:00 Losartan Potassium 25 Mg Tablet GT 04/29/25 20:59 HS POLLO Ondansetron HCl 4 mg 03/27/25 15:02 Ondansetron Inj 2 Mg/Ml Inj 2 Ml IVP 04/26/25 15:01 Q6H PRN NAUSEA OR VOMITING Protocol Oxycodone/Acetaminophen 1 tab 03/27/25 15:02 Oxycodone/Apap 5/325 Tablet PO 04/01/25 15:01 Q6H PRN PAIN SCALE 4-6 (Moderate Pantoprazole Sodium 40 mg 03/28/25 09:00 03/30/25 08:06 Pantoprazole Inj 40 Mg Vial IVP 04/27/25 08:59 40 mg QDAY POLLO Administration Sennosides 8.8 mg 03/27/25 21:00 03/29/25 22:11 Sennosides Syrup 8.8 Mg/5 Ml Udc GT 04/26/25 20:59 8.8 mg HS POLLO Administration Protocol Plan This patient is a 69-year-old female with past medical history of chronic respiratory failure s/p trach, s/p PEG tube and G-tube, ICH in 2012 which led to a fall back resulted in TBI, seizure disorder, GERD, and chronic hyponatremia on salt tablets and fludrocortisone who presented to [facility] ED from subacute on 03/27 due to increased work of breathing and respiratory distress. Patient was admitted for management of acute hypercapnic and hypoxic respiratory failure. #HAP/VAP, bilateral #Acute hypoxic & hypercapnic respiratory failure and #Urinary tract infection, Klebsiella Patient presented with increased work of breathing and was found to have SpO2 of 87% on blow-by during admission. Initial ABG showed pCO2 85, which quickly corrected on repeat VBG to 37 after starting the patient on mechanical ventilation. This respiratory failure is likely secondary to hospital/ventilator associated pneumonia as she was found to have significant bilateral pneumonia on chest x-ray 03/27. Sepsis is ruled out given lack of endorgan damage. Diagnostics: Urine culture collected 03/27, grew Klebsiella pneumonia Blood cultures collected 03/27, no growth after 48 hours Repeat VBG ordered 03/28, resulted as pCO2 32 Plan: Continue cefepime 2 g every 8 hours (03/28?04/03) Sputum culture collected 03/27, pending Cocci serology ordered, pending Legionella urine antigen ordered, pending #Hypernatremia, resolved #Chronic hyponatremia Patient had sodium of 135 on admission with a free water deficit of 2.8 L. The patient is normally in chronic hyponatremia as she is very sensitive to free water flushes. Exact etiology of her hyponatremia is unclear, however it is likely related to her HAP/VAP. Possible infection related SIADH. Patient responded well with 3 L of LR in the ED followed by 1 L D5W, lowering sodium to 148. Patient noted to have sodium within normal limits on 03/29. Plan: Will discuss with dietary regarding free water flushes with tube feeds as patient does have history of chronic hyponatremia with free water flushes in subacute Continue to monitor, replete as necessary #History of ICH, leading to TBI #Chronic respiratory failure s/p trach Patient has a history of intracerebral hemorrhage back in 2012, which led to a fall, resulting in a traumatic brain injury. The traumatic brain injury resulted in chronic respiratory failure, requiring the patient to be status post tracheostomy tube. Patient is managed in subacute since. Plan: Continue to monitor Continue mechanical ventilation, transition to blow-by as tolerated #History of seizure disorder, unspecified Patient is noted to have a history of seizure disorder per chart review. Patient has been prescribed breakthrough seizure medication, however does not seem to be on any sort of antiseizure medication. Plan: Patient to follow up with outpatient neurology #GERD, on PPI Patient is noted to have a history of GERD and takes esomeprazole in subacute. Plan: Pantoprazole 40 mg IVP daily DVT Prophylaxis: Heparin GI Prophylaxis: Protonix Bowel: Senna syrup Diet: Jevity Burt: Yes Lines: Peripheral IV, Trach, PEG, GT Antibiotics: Cefepime Code Status: FULL Reason for Hospitalization: AHRF Other Barriers to Discharge: Sputum culture Patient plan of care was discussed with attending physician Dr. Reeves and senior resident Dr. Mendoza (PGY-2) Steve Ram, PGY1 Attending Provider Attestation/Addendum I have discussed and was present for the essential components of the history, physical examination, diagnosis, and treatment plan with the resident. I agree with the patient's care as documented by the resident and amended herein by me. Zachariah Reeves DO. Although this document has been carefully reviewed, there may still be some phonetic and other typographical errors. These errors are purely grammatical due to imperfections in the software program and should not be construed in any way to compromise the substance of the patient's medical care during this visit.
[2025-03-30 14:49] LABS: Cocci Serology, IgG Negative (Negative)
--- NOTE | 2025-03-30 16:11 | PC.SS ---
Pt is from [facility]. SS spoke to Mark from [facility] regarding patient's d/c plan. Pt is alert/peg/trach. Pt was admitted for VAP. Pt is bedbound. Pt is total care and maximum assists. Per Jess, patient's dtr, Homa Griffiths is her medical decision maker. Per Jess, pt is not on ventilator in subacute. Pt will return to [facility] upon dc. Pt is followed by Dr. Gonsalez. D/C plan: Return to [facility] Next of Kin: Homa Griffiths, daughter, phone# [phone] PCP: Dr. Gonsalez Address: Correct on facesheet
[2025-03-30] MEDS: SENNOSIDES SYRUP 8.8 MG/5 ML UDC GT (21:01)
[2025-03-30] MEDS: LOSARTAN POTASSIUM 25 MG TABLET 100 MG GT (21:01)
[2025-03-31] VITALS (15 sets, daily range): BP systolic 115–156; BP diastolic 76–98; PULSE 66–94; RESP 14–22; TEMP 35.9–36.9; O2SAT 94–99; BMI 21.4
[2025-03-31] MEDS: CEFEPIME INJ 2 GM in SODIUM CHLORIDE 0.9% (Popper) 50 ML IV ×3 (05:00→21:02)
[2025-03-31 05:37] LABS: Basophils # (Auto) 0.0 Thou/mm3 (0.0-0.2); Basophils % (Auto) 1 % (0-2.5); Eosinophils # (Auto) 0.2 Thou/mm3 (0.0-0.5); Eosinophils % (Auto) 4 % (0-10); Hematocrit 30.6 % (36.0-46.0); Hemoglobin 9.5 g/dL (12.0-16.0); Immature Granulocytes Auto 0.02 Thou/mm3 (0.00-0.00); Lymphocytes # (Auto) 1.3 Thou/mm3 (1.0-4.8); Lymphocytes % (Auto) 23 % (10-50); Mean Corpuscular HGB Conc 31.0 g/dl (31.0-37.0); Mean Corpuscular Hemoglobin 26.9 pg (25.0-35.0); Mean Corpuscular Volume 87 fL (80-100); Monocytes # (Auto) 0.6 Thou/mm3 (0.0-0.8); Monocytes % (Auto) 10 % (0-12); Neutrophils # (Auto) 3.7 Thou/mm3 (1.8-7.7); Neutrophils % (Auto) 62 % (37-80); Nucleated Red Blood Cell # 0.00 Thou/mm3 (0.00-0.00); Nucleated Red Blood Cell % 0 /100 WBC (0); Platelet Count 193 Thou/mm3 (140-440); RDW Standard Deviation 50.9 fL (36.4-46.3); Red Blood Count 3.53 Miln/mm3 (4.00-5.20); White Blood Count 5.9 Thou/mm3 (3.6-11.0)
[2025-03-31 06:04] LABS: Anion Gap 9 (7-16); BUN/Creatinine Ratio 34 Ratio (12-20); Blood Urea Nitrogen 17 mg/dL (9-23); Calcium 9.3 mg/dL (8.3-10.6); Carbon Dioxide 25.8 mMol/L (20.0-31.0); Chloride 107 mMol/L (98-107); Creatinine (Component) 0.5 mg/dL (0.6-1.3); Estimated Creatinine Clearance 94.3 mL/min (>60); Glucose 98 mg/dL (74-106); Osmolality,Calculated 284 (275-295); Potassium 4.1 mMol/L (3.4-5.1); Sodium 142 mMol/L (136-145); eGFR > 60 See Note
[2025-03-31] MEDS: HEPARIN SOD INJ 5000 UNIT/ML VIAL SC ×2 (08:00→20:57)
--- NOTE | 2025-03-31 09:43 | PC.SS ---
SS has communicated with Jess from [facility] to inform her pt is returning to Subacute today. Jess provided Oralia's ext [phone] for report. Bedside nurseMitzi is aware and ext provided. SNF packet has been prepared and is on patient's chart. [facility]aseebr[facility]oma is aware. Resident team is aware to contact Dr. Gonsalez about pt returning to [facility] and if he is ok with returning then [facility] will accept pt back.
--- NOTE | 2025-03-31 11:32 | ESPR_ITS ---
<Statement entered by Scot Mendoza MD - 03/31/25 18:45> I have personally seen and examined the patient, agree with residents assessment and plan Patient plan of care was discussed with the attending physician, Dr. Lala Mendoza, PGY2 Documentation for date of: 03/31/25 Subjective Subjective Interval history: Overnight events: No acute events overnight. Patient was seen and examined at bedside. AM vitals and labs reviewed. Patient was transition to blow-by yesterday. Patient seems to be in significant respiratory distress this morning on blow-by. However, patient was saturating well on blow-by. RT was called and patient was transition back to mechanical ventilation, which significantly improved her overall presentation. Hemoglobin 9.5, sodium 142 Sputum culture collected 03/27, grew Klebsiella pneumonia, Providencia stuartii, and Group g streptococcus Will continue patient on mechanical ventilation with goals of transitioning patient back to blow-by as tolerated. Will continue cefepime for now. Patient started on 35 cc/h of free water flushes. Will continue to monitor sodium, possibly transition to 35 cc/h of normal saline if sodium drops too low. Expected to discharge within the next 24 hours. Review of systems otherwise negative except for what is mentioned above. Exam Vital Signs Temp Pulse Resp BP Pulse Ox O2 Del Method O2 Flow Rate 97.0 F 66 16 136/80 H 98 Mechanical Ventilation 8 03/31/25 08:00 03/31/25 08:00 03/31/25 08:00 03/31/25 08:00 03/31/25 08:00 03/31/25 08:00 03/31/25 08:00 FiO2 30 03/31/25 08:00 Narrative Exam Physical Exam: General: Acute distress. Non-interactive. On blow-by ventilation. Skin: Warm, dry, intact. Head: Normocephalic, atraumatic. Eye: Normal conjunctiva, PERRL. Cardiovascular: Regular rate and rhythm, no murmur, +S1/S2. Respiratory: Harsh breath sounds on auscultation, respirations labored, no crackles, no wheezing. Gastrointestinal: Soft, nontender, non-distended. No guarding or rebound tenderness. GT in place. Extremities: No edema, no cyanosis, no clubbing. Toes contractured bilaterally. Neuro: Non-verbal, minimal movement of upper extremities, no movement lower extremities. No overt cerebellar signs/incoordination. Objective Labs 04/01/25 08:58 04/01/25 08:58 Labs: Laboratory Results - last 24 hr 03/27/25 03/31/25 17:21 04:35 WBC 5.9 RBC 3.53 L Hgb 9.5 L Hct 30.6 L MCV 87 MCH 26.9 MCHC 31.0 RDW Std Deviation 50.9 H Plt Count 193 Neut % (Auto) 62 Lymph % (Auto) 23 [place] % (Auto) 10 Eos % (Auto) 4 Baso % (Auto) 1 Neut # (Auto) 3.7 Lymph # (Auto) 1.3 [place] # (Auto) 0.6 Eos # (Auto) 0.2 Baso # (Auto) 0.0 Immature Gran # (Auto) 0.02 H Absolute Nucleated RBC 0.00 Immature Gran % 0 Nucleated RBC % 0 Sodium 142 Potassium 4.1 D Chloride 107 Carbon Dioxide 25.8 Anion Gap 9 BUN 17 Creatinine 0.5 L Estim Creat Clear Calc 94.3 eGFR > 60 BUN/Creatinine Ratio 34 H Glucose 98 Calculated Osmolality 284 Calcium 9.3 Coccidioides IgG Ab Negative ABG Interpretation ABG results: 03/27/25 03/27/25 03/28/25 16:17 17:21 10:45 ABG pH 7.23 L ABG pCO2 85 H* ABG pO2 79 L ABG HCO3 35 H ABG O2 Saturation 93 ABG Base Excess 5 H VBG pH 7.57 7.55 VBG pCO2 37 32 L VBG pO2 60 H 171 H D VBG Base Excess 11 H 6 H Quality Measures Quality Measures sepsis Current suspected stage: ruled out Possible source: pulmonary Blood cultures ordered: completed in ED Antibiotic ordered: Yes Advance care planning discussed with:: patient Assessment & Plan Assessment Current Active Medications: Generic Name Dose Route Start Last Admin Trade Name Freq PRN Reason Stop Dose Admin Acetaminophen 650 mg 03/27/25 15:02 Acetaminophen 325 Mg Tablet PO 04/26/25 15:01 Q6H PRN Fever >101.5 Acetaminophen 650 mg 03/27/25 15:02 03/29/25 16:32 Acetaminophen 325 Mg Tablet PO 04/26/25 15:01 650 mg Q6H PRN Administration PAIN SCALE 1-3 (mild Albuterol/Ipratropium 3 ml 03/27/25 15:43 Albuterol/Ipratropium (Duoneb) Rt Day 3 Ml Nebu INH 04/26/25 15:42 Q4HR PRN Resp distress Dextrose 25 ml 03/27/25 16:53 Dextrose 50%-Water Inj 50 Ml Syringe IV 04/26/25 16:52 Q15MIN PRN BG 50-70 responsive npo pt Dextrose 50 ml 03/27/25 16:53 Dextrose 50%-Water Inj 50 Ml Syringe IV 04/26/25 16:52 Q15MIN PRN BG <50 OR BG <70 & pt unresponsive Glucagon 1 mg 03/27/25 16:53 Glucagon Inj 1 Mg Vial IM Q15MIN PRN BG <70, and no IV access Heparin Sodium (Porcine) 5,000 unit 03/27/25 21:00 03/31/25 08:00 Heparin Sod Inj 5000 Unit/Ml Vial SC 04/10/25 20:59 5,000 unit Q12HR POLLO Administration Cefepime HCl 2 gm/ Sodium 50 mls @ 100 mls/hr 03/28/25 08:15 03/31/25 05:00 Chloride IV 04/04/25 08:14 100 mls/hr Q8HR POLLO Administration Losartan Potassium 100 mg 03/30/25 21:00 03/30/25 21:01 Losartan Potassium 25 Mg Tablet GT 04/29/25 20:59 100 mg HS POLLO Administration Ondansetron HCl 4 mg 03/27/25 15:02 Ondansetron Inj 2 Mg/Ml Inj 2 Ml IVP 04/26/25 15:01 Q6H PRN NAUSEA OR VOMITING Protocol Oxycodone/Acetaminophen 1 tab 03/27/25 15:02 Oxycodone/Apap 5/325 Tablet PO 04/01/25 15:01 Q6H PRN PAIN SCALE 4-6 (Moderate Pantoprazole Sodium 40 mg 03/28/25 09:00 03/31/25 08:00 Pantoprazole Inj 40 Mg Vial IVP 04/27/25 08:59 40 mg QDAY POLLO Administration Sennosides 8.8 mg 03/27/25 21:00 03/30/25 21:01 Sennosides Syrup 8.8 Mg/5 Ml Udc GT 04/26/25 20:59 8.8 mg HS POLLO Administration Protocol Plan This patient is a 69-year-old female with past medical history of chronic respiratory failure s/p trach, s/p PEG tube and G-tube, ICH in 2012 which 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 Patient was admitted for management of acute hypercapnic and hypoxic respiratory failure. #Acute hypercapnic respiratory failure and #Acute hypoxic respiratory failure 2/2 #HAP/VAP, bilateral #Urinary tract infection, Klebsiella Patient presented with increased work of breathing and was found to have SpO2 of 87% on blow-by during admission. Initial ABG showed pCO2 85, which quickly corrected on repeat VBG to 37 after starting the patient on mechanical ventilation. This respiratory failure is likely secondary to hospital/ventilator associated pneumonia as she was found to have significant bilateral pneumonia on chest x-ray 03/27. Sepsis is ruled out given lack of endorgan damage. Diagnostics: Urine culture collected 03/27, grew Klebsiella pneumonia Blood cultures collected 03/27, no growth after 48 hours Repeat VBG ordered 03/28, resulted as pCO2 32 Cocci serology ordered, negative Sputum culture collected 03/27, grew Klebsiella pneumonia, Providencia stuartii, and Group g streptococcus Plan: Continue cefepime 2 g every 8 hours (03/28?04/03) Legionella urine antigen ordered, pending #Hypernatremia, resolved #Chronic hyponatremia Patient had sodium of 135 on admission with a free water deficit of 2.8 L. The patient is normally in chronic hyponatremia as she is very sensitive to free water flushes. Exact etiology of her hyponatremia is unclear, however it is likely related to her HAP/VAP. Possible infection related SIADH. Patient responded well with 3 L of LR in the ED followed by 1 L D5W, lowering sodium to 148. Patient noted to have sodium within normal limits on 03/29. Plan: Patient started on 35 cc/h of free water flushes, will continue to monitor sodium, possibly transition to 35 cc/h of normal saline if sodium drops too low Continue to monitor, replete as necessary #History of ICH, leading to TBI #Chronic respiratory failure s/p trach Patient has a history of intracerebral hemorrhage back in 2012, which led to a fall, resulting in a traumatic brain injury. The traumatic brain injury resulted in chronic respiratory failure, requiring the patient to be status post tracheostomy tube. Patient is managed in subacute since. Plan: Continue to monitor Continue mechanical ventilation, transition to blow-by as tolerated #History of seizure disorder, unspecified Patient is noted to have a history of seizure disorder per chart review. Patient has been prescribed breakthrough seizure medication, however does not seem to be on any sort of antiseizure medication. Plan: Patient to follow up with outpatient neurology #GERD, on PPI Patient is noted to have a history of GERD and takes esomeprazole in subacute. Plan: Pantoprazole 40 mg IVP daily DVT Prophylaxis: Heparin GI Prophylaxis: Protonix Bowel: Senna syrup Diet: Jevity Burt: Yes Lines: Peripheral IV, Trach, PEG, GT Antibiotics: Cefepime Code Status: FULL Reason for Hospitalization: AHRF Other Barriers to Discharge: Sputum culture Patient plan of care was discussed with attending physician Dr. Reeves and senior resident Dr. Mendoza (PGY-2) Steve Ram, PGY1 Attending Provider Attestation/Addendum I have discussed and was present for the essential components of the history, physical examination, diagnosis, and treatment plan with the resident. I agree with the patient's care as documented by the resident and amended herein by me. Zachariah Reeves DO. Although this document has been carefully reviewed, there may still be some phonetic and other typographical errors. These errors are purely grammatical due to imperfections in the software program and should not be construed in any way to compromise the substance of the patient's medical care during this visit.
[2025-03-31] MEDS: LOSARTAN POTASSIUM 25 MG TABLET 100 MG GT (20:57)
[2025-04-01] VITALS (8 sets, daily range): BP systolic 113–138; BP diastolic 73–88; PULSE 59–84; RESP 13–18; TEMP 36–36.4; O2SAT 97–99; BMI 22.5
--- NOTE | 2025-04-01 02:36 | PC.NURSE ---
[facility] downtime occurred on 04/01/25 from 0200 to 0235.
[2025-04-01] MEDS: CEFEPIME INJ 2 GM in SODIUM CHLORIDE 0.9% (Popper) 50 ML IV ×2 (05:20→14:02)
[2025-04-01] MEDS: HEPARIN SOD INJ 5000 UNIT/ML VIAL SC (09:01)
--- NOTE | 2025-04-01 09:23 | PC.SS ---
Follow up note: Pt is on ventilator. On IV antibiotic. Pt is on 1 mitten restraint. SS has spoke to Jess from [facility] to inform her pt possibly will be returning to Subacute today. Physician residents are aware to speak with Dr. Gonsalez before sending pt to [facility].
[2025-04-01 09:33] LABS: Basophils # (Auto) 0.0 Thou/mm3 (0.0-0.2); Basophils % (Auto) 1 % (0-2.5); Eosinophils # (Auto) 0.2 Thou/mm3 (0.0-0.5); Eosinophils % (Auto) 4 % (0-10); Hematocrit 28.4 % (36.0-46.0); Hemoglobin 8.9 g/dL (12.0-16.0); Immature Granulocytes Auto 0.01 Thou/mm3 (0.00-0.00); Lymphocytes # (Auto) 1.2 Thou/mm3 (1.0-4.8); Lymphocytes % (Auto) 20 % (10-50); Mean Corpuscular HGB Conc 31.3 g/dl (31.0-37.0); Mean Corpuscular Hemoglobin 27.0 pg (25.0-35.0); Mean Corpuscular Volume 86 fL (80-100); Monocytes # (Auto) 0.6 Thou/mm3 (0.0-0.8); Monocytes % (Auto) 11 % (0-12); Neutrophils # (Auto) 3.8 Thou/mm3 (1.8-7.7); Neutrophils % (Auto) 64 % (37-80); Nucleated Red Blood Cell # 0.00 Thou/mm3 (0.00-0.00); Nucleated Red Blood Cell % 0 /100 WBC (0); Platelet Count 211 Thou/mm3 (140-440); RDW Standard Deviation 52.4 fL (36.4-46.3); Red Blood Count 3.30 Miln/mm3 (4.00-5.20); White Blood Count 5.9 Thou/mm3 (3.6-11.0)
[2025-04-01 10:03] LABS: Alanine Aminotransferase 31 U/L (10-49); Albumin, Serum 3.4 gm/dL (3.4-4.8); Albumin/Globulin Ratio 1.1 (1.2-2.2); Alkaline Phosphatase 161 U/L (46-116); Anion Gap 8 (7-16); Aspartate Amino Transferase 14 U/L (0-34); BUN/Creatinine Ratio 33 Ratio (12-20); Bilirubin,Total 0.3 mg/dL (0.3-1.2); Blood Urea Nitrogen 13 mg/dL (9-23); Calcium 9.1 mg/dL (8.3-10.6); Calcium (Corrected) 9.6 mg/dL (8.5-10.1); Carbon Dioxide 27.3 mMol/L (20.0-31.0); Chloride 104 mMol/L (98-107); Creatinine (Component) 0.4 mg/dL (0.6-1.3); Estimated Creatinine Clearance 117.9 mL/min (>60); Globulin 3.0 gm/dL (2.3-3.5); Glucose 129 mg/dL (74-106); Osmolality,Calculated 279 (275-295); Potassium 4.2 mMol/L (3.4-5.1); Sodium 139 mMol/L (136-145); Total Protein 6.4 gm/dL (5.7-8.2); eGFR > 60 See Note
--- NOTE | 2025-04-01 13:51 | ESDS_ITS ---
Planned Discharge Date 04/01/25 DS: Providers Provider Date of admission: 03/27/25 15:02 Primary care physician: Physician No Primary/Family Admitting Provider: Jake Reeves DO Attending Provider on Admission: Jake Reeves DO Consults: 03/28/25 08:00 Referral Registered Dietitian Routine Comment: Attending Provider on DC: Peter Buckley MD Discharging Provider: Peter Buckley MD DS: Diagnosis Problem List Completed Was Problem List Reviewed/Reconciled?: Yes Hospital Course Hospital Course Hospital course: 69-year-old female with a significant past medical history of chronic respiratory failure, trach, PEG and G-tube, intracranial hemorrhage, TBI, essential hypertension, seizure disorder, GERD, chronic hyponatremia on salt tabs and fludrocortisone who presented to the ED with reports of increased work of breathing and respiratory distress. Patient was admitted for management of acute hypercapnic and hypoxic respiratory failure secondary to HAP/VAP. In the ED, patient was hypertensive with initial BP of 158/96, tachycardic with a rate of 110, tachypneic with a respiratory rate of 34, febrile with a T of 100.4 and hypoxic, SpO2 87%. Significant labs include a normal WBC, hemoglobin 10.5, sodium of 155, potassium 3, chloride 109, bicarb 35.4, glucose 165, calculated osmolality at 312, AST of 36, other liver enzymes normal, alk phos 19 1, Pro-Singh negative, UA demonstrating 4+ RBCs and 1+ bacteria although WBCs are 8 2. Chest x-ray demonstrated bilateral pneumonia. Hospital course: Sepsis was ruled out given lack of endorgan damage. Urine culture collected 03/27, grew Klebsiella pneumonia, blood cultures negative, sputum culture collected 03/27, grew Klebsiella pneumonia, Providencia stuartii, and Group g streptococcus. Patient was on cefepime 2 g every 8 hours (03/28?04/03). Legionella urine antigen ordered, pending at time of discharge. At time of discharge to subacute, patient was stable and continued on mechanical vent ilator. Discharge instructions: - Please continue IV cefepime 2 g every 8 hours for ventilator associated pneumonia for 2 days, ending 04/03/25. - Please leave patient on mechanical ventilation and wean off to blow-by after completion of antibiotic regimen - Please continue all other home medications - If symptoms worsen or if patient develops new desaturation event, fever greater than 101.5 ?F - please refer back to the ED immediately Admission diagnoses: #Acute hypoxic and hypercapnic respiratory failure 2/2 #HAP/VAP, bilateral #Urinary tract infection, Klebsiella #Hypernatremia, resolved #Hx of Chronic hyponatremia #History of ICH, leading to TBI #Hx of chronic respiratory failure s/p trach #History of seizure disorder, unspecified #GERD, on PPI Case discussed with my attending Dr. Ina Ruby MD PGY-1 Time Spent with Patient Time attestation: Total time spent providing and/or coordinating discharge services: Time spent: Greater than 30 minutes Exam Vital Signs Temp Pulse Resp BP Pulse Ox O2 Del Method O2 Flow Rate 97.3 F 62 16 135/73 H 98 Mechanical Ventilation 8 04/01/25 12:00 04/01/25 12:59 04/01/25 12:00 04/01/25 12:00 04/01/25 12:59 04/01/25 12:00 04/01/25 12:00 FiO2 30 04/01/25 12:59 Narrative Exam General: Not in acute distress. Non-interactive. On mechanical vent. Skin: Warm, dry, intact. Head: Normocephalic, atraumatic. Eye: Normal conjunctiva, PERRL. CVS: Regular rate and rhythm, no murmur, +S1/S2. RESP: Decreased air entry bilat. No crackles, no wheezing. GI: Soft, nontender, non-distended. No guarding or rebound tenderness. GT in place. Extremities: No edema, no cyanosis, no clubbing. Toes contractured bilaterally. Neuro: Non-verbal, minimal movement of upper extremities, no movement lower extremities. No overt cerebellar signs/incoordination. Discharge Plan Plan Patient Disposition: Xfer Other Disposition Comment: Subacute Care Plan Goals: Please continue IV cefepime 2 g every 8 hours for ventilator associated pneumonia for 2 days, ending 04/03/25. Please leave patient on mechanical ventilation and wean off to blow-by after completion of antibiotic regimen Please continue all other home medications If symptoms worsen or if patient develops new desaturation event, fever greater than 101.5 ?F - please refer back to the ED immediately Prescriptions/Referrals Prescriptions/Med Rec: New cefepime 2 gram recon soln 2 g IV Q8H 2 Days Continued sennosides [Senna Laxative] 8.6 mg tablet 17.2 mg G-tube HS 942 Days Qty: 1886 0RF Label Comments: for constipation Rx Instructions: Hold for loose stools. acetaminophen 325 mg tablet 650 mg G-tube Q6HR PRN (Reason: Pain) 713 Days 0RF Label Comments: Not to exceed 3 grams of Tylenol in 24 hours from all sources magnesium hydroxide [Milk of Magnesia] 400 mg/5 mL suspension 30 ml G-tube PRN PRN (Reason: No Bowel Movement) 941 Days 0RF Label Comments: CONC:400MG/5ML Rx Instructions: Give 2400mg/30ml PGT on the 5th shift if no BM bisacodyl [Dulcolax (bisacodyl)] 10 mg suppository 10 mg CA PRN PRN (Reason: No BM Per Bowel Management Protocol) 943 Days 0RF Rx Instructions: Administer as needed on 6th shift, if MOM ineffective. esomeprazole magnesium 40 mg capsule,delayed release(DR/EC) 40 mg G-tube DAILY 940 Days Qty: 940 0RF Label Comments: for GERD Phospha 250 Neutral 250 mg tablet 250 mg G-tube QDAY 943 Days 0RF Label Comments: for supplement losartan 100 mg tablet 100 mg G-tube HS 942 Days Qty: 943 0RF Label Comments: for HTN BBW Rx Instructions: Hold if SBP<110 Atrovent HFA 17 mcg/actuation HFA aerosol inhaler 3 puff INH Q4HR PRN (Reason: Shortness Of Breath Or Wheeze) 750 Days 0RF sodium chloride 1,000 mg tablet,soluble 1,000 mg G-tube BID 942 Days Qty: 943 0RF Label Comments: For Hyponatremia [id number] fum-folic ac 7.5 mg iron-400 mcg tablet 1 ea G-tube QDAY 943 Days Qty: 943 0RF Label Comments: for supplement Ear Wax Removal Drops 6.5 % drops 5 drp otic (ear) Q61D 346 Days 11RF Label Comments: 5 drops per ear at first med pass of shift. Then irrigate ears with NS at next med pass of each shift x 4 days for wax build up. fludrocortisone 0.1 mg tablet 0.1 mg G-tube 2100 225 Days Qty: 228 12RF Label Comments: Give one tab PGT daily. at night time no re-eval needed lorazepam 2 mg/mL solution 2 mg IM PRN PRN (Reason: Seizure Activity) 30 Days Qty: 1 0RF Rx Instructions: Ativan 2mg/ml IM for seizure, if seizure persists admister second dose of Ativan 2mg/ml IM. If Ativan is not effective send resident to ER for further evaluation and notify MD. albuterol sulfate 2.5 mg /3 mL (0.083 %) solution for nebulization 2.5 mg INH Q6HRRT PRN (Reason: Wheezing/SOB) 345 Days 0RF Discontinued Ear Wax Removal Drops 6.5 % drops 5 drp otic (ear) Q61D 346 Days 11RF Rx Instructions: 5 drops per ear at first med pass of shift. Then irrigate ears with NS at next med pass of each shift x 4 days for wax build up. *Start on the of the month, every two months. Ear Wax Removal Drops 6.5 % drops 5 drp otic (ear) Q61D 345 Days 11RF Label Comments: 5 drops per ear at first med pass of shift. Then irrigate ears with NS at next med pass of each shift x 4 days for wax build up. Ear Wax Removal Drops 6.5 % drops 5 drp otic (ear) Q61D 345 Days 11RF Rx Instructions: 5 drops per ear at first med pass of shift. Then irrigate ears with NS at next med pass of each shift x 4 days for wax build up. *Start on the of the month, every two months. Ear Wax Removal Drops 6.5 % drops 5 drp otic (ear) Q61D 344 Days 11RF Label Comments: 5 drops per ear at first med pass of shift. Then irrigate ears with NS at next med pass of each shift x 4 days for wax build up. Ear Wax Removal Drops 6.5 % drops 5 drp otic (ear) Q61D 344 Days 11RF Rx Instructions: 5 drops per ear at first med pass of shift. Then irrigate ears with NS at next med pass of each shift x 4 days for wax build up. *Start on the of the month, every two months. Ear Wax Removal Drops 6.5 % drops 5 drp otic (ear) Q61D 343 Days 11RF Label Comments: 5 drops per ear at first med pass of shift. Then irrigate ears with NS at next med pass of each shift x 4 days for wax build up. Ear Wax Removal Drops 6.5 % drops 5 drp otic (ear) Q61D 343 Days 11RF Label Comments: 5 drops per ear at first med pass of shift. Then irrigate ears with NS at next med pass of each shift x 4 days for wax build up. No Action cefepime 1 gram recon soln 2 g IV Q8HR 2 Days Qty: 6 0RF Rx Instructions: x 2 days for Pneumonia Referrals: No Primary/Family,Physician [Primary Care Provider] Patient/Caregiver Discharge Instructions Print Language: Lithuanian Stand Alone Forms: Sally Award Info., Patient Portal Info Letter Discharge Order Discharge Orders: Discharge (Routine); Ordered 04/01/25 Ordered By: Manuel Ruby Quality Discharge Quality Measures VTE prophylaxis
--- NOTE | 2025-04-01 14:13 | PC.NURSE ---
Report given to Sol in subacute.
== END 2025-04-01 15:45 | disposition skilled nursing facility (03) | DRG 208 ==
LOC: SERX 15:02 → SERHOLD 15:44 → S2NX 23:36
PROVIDERS: Admitting Provider Student in an Organized Health Care Education/Training Program; Emergency Provider Emergency Medicine; Visit Provider Student in an Organized Health Care Education/Training Program
DX: J95.851 Ventilator associated pneumonia (principal); J96.21 Acute and chronic respiratory failure with hypoxia; J96.22 Acute and chronic respiratory failure with hypercapnia; E87.0 Hyperosmolality and hypernatremia; E87.3 Alkalosis; E87.1 Hypo-osmolality and hyponatremia; N39.0 Urinary tract infection, site not specified; D63.8 Anemia in other chronic diseases classified elsewhere; E87.6 Hypokalemia; R74.8 Abnormal levels of other serum enzymes; I10 Essential (primary) hypertension; K21.9 Gastro-esophageal reflux disease without esophagitis; G40.909 Epilepsy, unspecified, not intractable, without status epilepticus; Y95 Nosocomial condition; Z93.1 Gastrostomy status; B96.1 Klebsiella pneumoniae [K. pneumoniae] as the cause of diseases classified elsewhere; Z66 Do not resuscitate; Z79.899 Other long term (current) drug therapy; Z93.0 Tracheostomy status; Z79.52 Long term (current) use of systemic steroids; Y84.8 Other medical procedures as the cause of abnormal reaction of the patient, or of later complication, without mention of misadventure at the time of the procedure
CPT/HCPCS: 36415; 36600; 71045; 80048; 80053; 81001; 82803; 83540; 83550; 83605; 83735; 84145; 84295; 85025; 85610; 85730; 86331; 86635; 87040; 87077; 87081; 87086; 87186; 87205; 87449; 93005; 94002; 94003; 94664; 96361; 96365; 96366; 99285; J0456; J0692; J0696; J1644; J2470; J7042; J7050; J7120; A9270

== ENCOUNTER 2025-04-02 07:25 | Inpatient (IN) | payer MEDICARE, MEDICAID, SELFPAY ==
[2025-04-02] VITALS (14 sets, daily range): BP systolic 97–200; BP diastolic 51–146; PULSE 67–134; RESP 25–45; TEMP 35.9–36.9; O2SAT 100
--- NOTE | 2025-04-02 07:36 | PC.NURSE ---
Pt. here to room 4 from sub acute, pt. RR 44, RT bedside and states that in report pt. has been breathing this rapidly since the evening. Pt. is trached and on a vent. Pt. has a feeding tube that is turned off at this time. 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 was sent to subacute from floor yesterday after being admitted for PNA. Rectal temp done, pt. cleaned, brief changed, pt. had loose brown BM in brief. Partial linen change done. Pt. breathing shallow and fast.
--- NOTE | 2025-04-02 07:42 | PC.NURSE ---
Pt brought in from subacute due to increased: RR, work of breathing, and heart rate. PT was discharged from acute care yesterday after being treated for bilat pneumonia. Pt currently on ventilator, with excessive saliva coming from mouth, suctioning mouth frequently to keep clear
--- NOTE | 2025-04-02 07:43 | EKG_ITS ---
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
--- NOTE | 2025-04-02 07:43 | XR_ITS ---
Examination: AP chest single view TECHNIQUE: AP portable semiupright chest single view Date and time: April 02, 2025 0816 hours, comparison March 27, 2025. INDICATION: Shortness of breath today. FINDINGS: Atelectasis versus early pneumonia both lung bases Normal heart size Prominent osteopenia. Tracheostomy tube tip 5.6 cm above cele IMPRESSION: Atelectasis versus early pneumonia both bases, clinical correlation advised
--- NOTE | 2025-04-02 07:49 | PD.EDSOB ---
ED SOB =RME/HPI General Chief Complaint: Shortness of Breath/Dyspnea Stated Complaint: INCREASED RESPIRATORY Time Seen by Provider: 04/02/25 07:39 Arrival date/time: 04/02/25 07:25 RME / HPI RME / HPI Narrative: 69-year-old female brought in from subacute to emergency department for further evaluation of respiratory distress noted this morning. Patient was recently on hospital for pneumonia and respiratory distress. Was discharged on mechanical ventilator to trach to be weaned off to blow-by. No other information available from patient at this time. Related Data Previous Rx's ?Medication ?Instructions ?Recorded acetaminophen 325 mg tablet 650 mg (2 x 325 mg) G-tube Q6HR 02/17/25 PRN Pain 713 days bisacodyl 10 mg rectal suppository 10 mg SD PRN PRN No BM Per Bowel 02/17/25 (Dulcolax (bisacodyl)) Management Protocol 943 days esomeprazole magnesium 40 mg 40 mg G-tube DAILY 940 days #940 02/17/25 capsule,delayed release caps ipratropium bromide 17 3 puff INH Q4HR PRN Shortness Of 02/17/25 mcg/actuation HFA aerosol inhaler Breath Or Wheeze 750 days (Atrovent HFA) losartan 100 mg tablet 100 mg G-tube HS 942 days #943 tabs 02/17/25 magnesium hydroxide 400 mg/5 mL 30 ml G-tube PRN PRN No Bowel 02/17/25 oral suspension (Milk of Magnesia) Movement 941 days ofzuwlovlmxn-[id number]-fett 1 ea G-tube QDAY 943 days #943 tabs 02/17/25 fumarate 7.5 mg-folic acid 400 mcg tablet sennosides 8.6 mg tablet (Senna 17.2 mg (2 x 8.6 mg) G-tube HS 942 02/17/25 Laxative) days #1,886 tabs sodium chloride 1,000 mg soluble 1,000 mg G-tube BID 942 days #943 02/17/25 tablet tabs sodium di- and 250 mg G-tube QDAY 943 days 02/17/25 monophosphate-potassium phos monobasic 250 mg tablet (Phospha Neutral) fludrocortisone 0.1 mg tablet 0.1 mg G-tube 2100 Hyponatremia 30 02/22/25 days #228 tabs lorazepam 2 mg/mL injection 2 mg IM PRN PRN Seizure Activity 03/14/25 solution 365 days #1 vial carbamide peroxide 6.5 % ear drops 5 drp otic (ear) Q61D 346 days 03/20/25 (Ear Wax Removal Drops) albuterol sulfate 2.5 mg/3 mL 2.5 mg (3 mL) INH Q6HRRT PRN 03/21/25 (0.083 %) solution for nebulization Wheezing/SOB 345 days cefepime 1 gram solution for 2 g IV Q8HR for Pneumonia 2 days 04/01/25 injection #6 ea cefepime 2 gram solution for 2 g IV Q8H 2 days 04/01/25 injection Allergies Allergy/AdvReac Type Severity Reaction Status Date / Time No Known Allergies Allergy Verified 03/27/25 13:04 Review of Systems Review of Systems ROS Unobtainable: unobtainable due to medical condition Past Medical History Past Medical History NEUROLOGIC: Positive Neurological Disorders, Cerebrovascular Accident, Seizures and Epilepsy CARDIAC: Positive Cardiac Disorders and Hypertension GASTROINTESTINAL: Positive Gastrointestinal Disorders and Gastroesophageal Reflux Disease MUSCULOSKELETAL: Positive Musculoskeletal Disorders ENT: Positive Ear Infection OTHER HISTORY: Positive Hospitalization Surgical History SURGICAL: Positive Abdominal Surgery and Tracheostomy Social History SMOKING STATUS: Unknown if ever smoked SECOND HAND EXPOSURE: No ED Exam Narrative Physical exam: Constitutional: Awake, lethargic, chronically ill-appearing, in acute distress. HEENT: Normocephalic, atraumatic Neck: Supple, trach in place. CV: Tachycardic rate and regular rhythm Lungs: Generally clear though diminished bilaterally, significant respiratory distress with tachypnea?respiratory rate in the 30s. Sats in the high 90s. Abd: Soft, NT, ND, no HSM noted to palpation Skin: Warm, dry, intact Course Course Course Narrative: 1126h: I spoke with hospitalist team B for admission. Quality Measures Current suspected stage: sepsis Possible source: pulmonary Blood cultures ordered: completed in ED Antibiotic ordered: Yes sepsis Orders Category Date Time Status CT Screening NOW Care 04/02/25 09:08 Active Sed [employer] NOW Care 04/02/25 07:43 Active Continuous Pulse Oximetry NOW Care 04/02/25 07:43 Completed EKG (ED ONLY) *Do not use* NOW Care 04/02/25 07:43 Completed Insert IV STAT Care 04/02/25 07:[address] angio chest Stat Exams 04/02/25 09:08 Completed EKG (ED Only) Stat Exams 04/02/25 07:43 Draft XR chest 1V portable Stat Exams 04/02/25 07:43 Completed Arterial Blood Gas Stat Lab 04/02/25 08:05 Completed B-Type Natriuretic Peptide Stat Lab 04/02/25 07:45 Completed Blood Culture (Lab) Stat Lab 04/02/25 07:40 Received CBC Stat Lab 04/02/25 08:37 Completed Comprehensive Metabolic Panel Stat Lab 04/02/25 07:45 Completed D-Dimer Stat Lab 04/02/25 07:45 Completed Magnesium Stat Lab 04/02/25 07:45 Completed Partial Thromboplastin Time Stat Lab 04/02/25 07:45 Completed Prothrombin Time with INR Stat Lab 04/02/25 07:45 Completed Troponin I Stat Lab 04/02/25 07:45 Completed Urinalysis Stat Lab 04/02/25 07:51 Completed Labetalol IV [Trandate IV] Med 04/02/25 07:47 Discontinued 20 mg IVP X1 ONE Midazolam Inj [Versed Inj] Med 04/02/25 07:57 Discontinued 1 mg IVP X1 ONE Ringers Lactated 1000 ml [Lactated Ringers] 1,000 ml Med 04/02/25 07:47 Discontinued IV 999 mls/hr fentaNYL INJ [Sublimaze Inj] Med 04/02/25 07:57 Discontinued 50 mcg IVP X1 ONE Oxygen Delivery NOW RT 04/02/25 07:43 Active Vital Signs Vital signs: Vital Signs Temperature 98.4 F 04/02/25 07:29 Pulse Rate 133 H 04/02/25 07:29 Respiratory Rate 39 H 04/02/25 07:29 Blood Pressure 200/112 H 04/02/25 07:29 Pulse Oximetry (%) 100 04/02/25 07:29 Oxygen Delivery Method Mechanical Ventilation 04/02/25 07:29 Fraction of Inspired Oxygen 44 04/02/25 07:29 Shortness of Breath / Dyspnea Patient data External records reviewed:: [facility] previous records Clinical information provided by:: other (specify) (RN) Social determinants that could affect healthcare access:: housing (subacute resident ) Patient has the following chronic illnesses:: seizures, intracerebral hemorrhage, hypertension, chronic respiratory failure, s/p tracheostomy, failure to thrive, s/p PEG How is presenting disease/condition affected by chronic disease/condition?: exacerbated by Evaluation data The following diagnostics were reviewed and interpreted by me:: lab results, radiology exam(s) and EKG tracing(s) Lab and/or radiology exams considered but not ordered:: None Interpretation Summary: Ordering Physician: Sanna Mullins MD Date of Service: 04/02/25 Procedure(s): XR chest 1V portable Accession Number(s): [id number] cc: Jose Antonio Procotr MD; Sanna Mullins MD; Ra Gonsalez MD~ Examination: AP chest single view TECHNIQUE: AP portable semiupright chest single view Date and time: April 02, 2025 0816 hours, comparison March 27, 2025. INDICATION: Shortness of breath today. FINDINGS: Atelectasis versus early pneumonia both lung bases Normal heart size Prominent osteopenia. Tracheostomy tube tip 5.6 cm above cele IMPRESSION: Atelectasis versus early pneumonia both bases, clinical correlation advised Dictated By: Jose Antonio Proctor MD Signed By: <Electronically signed by Jose Antonio Proctor MD in OV> 04/02/25 0858 Medications / Prescriptions Medications or Prescriptions considered but not ordered:: None Medication administrations:: Medication Administration History Acetaminophen (Acetaminophen 325 Mg Tablet) 650 mg NG Q6HR PRN PRN Reason: Pain 1-3 and/or Fever >100.1 Stop: 05/02/25 15:54 Albuterol/Ipratropium (Albuterol/Ipratropium (Duoneb) Rt Day 3 Ml Nebu) 3 ml INH Q6HRRT PRN PRN Reason: Respiratory Distress Stop: 05/02/25 18:59 Diazepam (Diazepam Inj 5 Mg/Ml Vial 2 Ml) 5 mg IV PRN PRN PRN Reason: Seizure Activity Stop: 04/07/25 16:11 Fludrocortisone Acetate (Fludrocortisone Acetate 0.1 Mg Tablet) 0.1 mg GT 2100 POLLO Stop: 05/02/25 20:59 Heparin Sodium (Porcine) (Heparin Sod Inj 5000 Unit/Ml Vial) 5,000 unit SC Q12HR POLLO Stop: 04/16/25 20:59 Cefepime HCl 2 gm/ Sodium (Chloride) 50 mls @ 100 mls/hr IV Q8HR POLLO Stop: 04/09/25 15:53 Last Admin: 04/02/25 16:44 Dose: 100 mls/hr Documented By: SC Lansoprazole (Lansoprazole 30 Mg Tab.Rap.Dr) 30 mg GT DAILY POLLO Stop: 05/03/25 08:59 Losartan Potassium (Losartan Potassium 25 Mg Tablet) 100 mg GT HS [facility] Stop: 05/02/25 20:59 Multivitamins/Minerals (Multivitamin 15 Ml Udc) 15 ml GT QDAY POLLO Stop: 05/03/25 08:59 Ondansetron HCl (Ondansetron Inj 2 Mg/Ml Inj 2 Ml) 4 mg IVP Q6HR PRN; Protocol PRN Reason: NAUSEA OR VOMITING Stop: 05/02/25 15:53 Sennosides (Senna Tablet) 1 tab GT HS [facility]; Protocol Stop: 05/02/25 20:59 Discontinued Medications Albuterol (Albuterol Rt 2.5 Mg/3 Ml Nebu) 2.5 mg INH Q6HRRT PRN PRN Reason: Wheezing/SOB Stop: 05/02/25 15:54 Albuterol (Albuterol Rt 2.5 Mg/0.5 Ml Nebu) 2.5 mg INH Q6HRRT PRN PRN Reason: Wheezing/SOB Stop: 05/02/25 15:54 Fentanyl Citrate (Fentanyl Cit Inj 50 Mcg/Ml Amp 2ml) 50 mcg IVP X1 ONE Stop: 04/02/25 07:58 Last Admin: 04/02/25 09:15 Dose: 50 mcg Documented By: ED Lactated Ringer's (Lactated Ringers) 1,000 mls @ 999 mls/hr IV .Q1H1M ONE Stop: 04/02/25 08:47 Last Infusion: 04/02/25 10:00 Dose: Infused Documented By: Admin: 04/02/25 07:54 Dose: 999 mls/hr Documented By: CS Ipratropium Kila (Ipratropium Kila Hfa 12.9 Gm Inh) 3 puff INH Q4HR PRN PRN Reason: SHORTNESS OF BREATH OR WHEEZE Stop: 05/02/25 15:54 Labetalol HCl (Labetalol Inj 5 Mg/Ml Vial 20 Ml) 20 mg IVP X1 ONE Stop: 04/02/25 07:48 Last Admin: 04/02/25 07:56 Dose: 20 mg Documented By: CS Midazolam HCl (Midazolam Inj 1 Mg/Ml Vial 2 Ml) 1 mg IVP X1 ONE Stop: 04/02/25 07:58 Last Admin: 04/02/25 09:18 Dose: 1 mg Documented By: ED Sodium Chloride (Sodium Chloride 1 Gm Tablet) 1 gm GT BID POLLO Stop: 05/02/25 20:59 See above Consultations Consultation(s) initiated? (list below): Yes Consultation #1 (Physician, Specialty, Details): See course note Diagnosis Shortness of Breath Differential Diagnosis: acute exacerbation of chronic obstructive airways disease, congestive heart failure and community acquired pneumonia Most likely diagnosis given after review of the tests above:: Hypercapnic respiratory failure Admission Indicated Admission indicated?: indicated Admission Request Was there a request for admission?: Yes Admission Attestation Admission request attestation: Discussed case with [] from Hospitalist service regarding admission. Discussed patients ED course, exam findings, labs, and radiology results. The Hospitalist [agrees,declines] to accept the patient for admission. Disposition Plan Disposition Plan: Admit Discharge Plan Plan Patient Disposition: Admit Acute Care w/in Hospital Problem List Clinical Impression: Hypercapnic respiratory failure
[2025-04-02] MEDS: RINGERS LACTATED 1000 ML 1,000 ML 999 ML IV (07:54)
[2025-04-02] MEDS: LABETALOL INJ 5 MG/ML VIAL 20 ML 20 MG IVP (07:56)
[2025-04-02 07:57] LABS: Collection Type, Urine Clean Catch
[2025-04-02 08:12] LABS: Base Excess -1 (-3-3); HCO3 31 mEq/L (20-26); Inspired Oxygen, FIO2 45 %; O2 Saturation 92 % (91-98); PO2 84 mmHg (83-108)
[2025-04-02 08:13] LABS: Bilirubin,Urine Negative (Negative); Blood,Urine Negative (Negative); Clarity,Urine Clear (Clear/Hazy); Color,Urine Colorless (Lt Yel-Yel); Glucose, Urine Trace (Negative); Ketones,Urine Negative (Negative); Leukocyte Esterase,Urine Negative (Negative); Nitrite,Urine Negative (Negative); PH,Urine 6.5 (5.0-7.0); Protein,Urine Negative (Neg - Trace); RBC,Urine < 1 /hpf (0-3); Specific Gravity,Urine 1.009 (1.001-1.035); Squamous Epithelial Cell,Urine < 1 /hpf (0-5); Urobilinogen,Urine Negative mg/dL (0.0-1.0); WBC,Urine < 1 /hpf (0-5)
[2025-04-02 08:15] LABS: PCO2 100 mmHg (32.0-48.0); Puncture Site Right Radial; pH, Arterial 7.10 (7.35-7.45)
[2025-04-02 08:16] LABS: Allen Test Performed/OK
[2025-04-02 08:17] LABS: B-Type Natriuretic Peptide 181 pg/mL (0-100)
[2025-04-02 08:20] LABS: Alanine Aminotransferase 41 U/L (10-49); Albumin, Serum 4.5 gm/dL (3.4-4.8); Albumin/Globulin Ratio 1.2 (1.2-2.2); Alkaline Phosphatase 209 U/L (46-116); Anion Gap 6 (7-16); Aspartate Amino Transferase 41 U/L (0-34); BUN/Creatinine Ratio 24 Ratio (12-20); Bilirubin,Total 0.2 mg/dL (0.3-1.2); Blood Urea Nitrogen 12 mg/dL (9-23); Calcium 8.6 mg/dL (8.3-10.6); Calcium (Corrected) 8.6 mg/dL (8.5-10.1); Carbon Dioxide 29.2 mMol/L (20.0-31.0); Chloride 101 mMol/L (98-107); Creatinine (Component) 0.5 mg/dL (0.6-1.3); Globulin 3.8 gm/dL (2.3-3.5); Glucose 193 mg/dL (74-106); Magnesium 1.9 mg/dL (1.6-2.6); Osmolality,Calculated 276 (275-295); Potassium 4.6 mMol/L (3.4-5.1); Sodium 136 mMol/L (136-145); Total Protein 8.3 gm/dL (5.7-8.2); Troponin I 0.021 ng/mL (0.0-0.045); eGFR > 60 See Note
[2025-04-02 08:31] LABS: INR 1.0 (0.9-1.3); Partial Thromboplastin Time 25.0 Seconds (22.0-36.0); Prothrombin Time 10.5 Seconds (9.0-12.2)
[2025-04-02 08:44] LABS: Basophils # (Auto) 0.0 Thou/mm3 (0.0-0.2); Basophils % (Auto) 0 % (0-2.5); Eosinophils # (Auto) 0.1 Thou/mm3 (0.0-0.5); Eosinophils % (Auto) 0 % (0-10); Hematocrit 30.8 % (36.0-46.0); Hemoglobin 9.7 g/dL (12.0-16.0); Immature Granulocytes Auto 0.05 Thou/mm3 (0.00-0.00); Lymphocytes # (Auto) 0.4 Thou/mm3 (1.0-4.8); Lymphocytes % (Auto) 3 % (10-50); Mean Corpuscular HGB Conc 31.5 g/dl (31.0-37.0); Mean Corpuscular Hemoglobin 27.5 pg (25.0-35.0); Mean Corpuscular Volume 87 fL (80-100); Monocytes # (Auto) 1.0 Thou/mm3 (0.0-0.8); Monocytes % (Auto) 8 % (0-12); Neutrophils # (Auto) 11.2 Thou/mm3 (1.8-7.7); Neutrophils % (Auto) 88 % (37-80); Nucleated Red Blood Cell # 0.00 Thou/mm3 (0.00-0.00); Nucleated Red Blood Cell % 0 /100 WBC (0); Platelet Count 250 Thou/mm3 (140-440); RDW Standard Deviation 51.8 fL (36.4-46.3); Red Blood Count 3.53 Miln/mm3 (4.00-5.20); White Blood Count 12.7 Thou/mm3 (3.6-11.0)
[2025-04-02 09:05] LABS: D-Dimer 2070 ng/mL (<600)
--- NOTE | 2025-04-02 09:08 | XR_ITS ---
Examination: CTA chest with intravenous contrast 2-D reconstructions 3-D reconstructions, vascular Date and time of exam: April 02, 2025, 1251 hours INDICATIONS: Tachycardia tachypnea shortness of breath today CTDI: vol (mGy) 24.8 DLP: (mGycm) 549 Technique: Multiple axial sections of the thorax have been obtained. 3 mm slice thickness, from below the hemidiaphragms to above the apices of the lungs. Mediastinal and lung density settings have been obtained. 2-D sagittal and coronal reconstructions. 3-D angiographic renderings, 3-D volume renderings, 3D post processing, vascular maximum intensity projections obtained. Contrast administered is 100 cc Isovue-370. Low dose protocols were performed. One or more of the following dose reduction techniques were used; automated exposure control, adjustment of the mA and/or KV according to patient size, use of iterative reconstruction technique. Findings: Endotracheal tube satisfactory position Thoracic aortic calcification No pulmonary artery filling defects Prominent pneumonia in the right lower lobe No visualized liver or splenic lesion Liver is irregular in contour Contracted gallbladder Gastrostomy tube in the duodenum No bowel obstruction IMPRESSION: Negative for pulmonary artery emboli Prominent pneumonia right lower lobe
[2025-04-02] MEDS: fentaNYL CIT INJ 50 mCg/ML AMP 2ML IVP (09:15)
[2025-04-02] MEDS: MIDAZOLAM INJ 1 MG/ML VIAL 2 ML IVP (09:18)
--- NOTE | 2025-04-02 10:00 | PC.NURSE ---
Pt.'s daughter Homa Griffiths is bedside talking with pt.
--- NOTE | 2025-04-02 11:35 | ECHO_ITS ---
Transthoracic Echo Report Ht (in): 60 Wt (lb): 138 Exam Location: [facility] Status: Emergency Rn Clinical Resource: Nicole Breaux Indications: Procedure Performed: BP: 139 / 84 HR: 82 MEASUREMENTS (Male / Female) Normal Values 2D ECHO LV Diastolic Diameter PLAX 4.3 cm 4.2 - 5.9 / 3.9 - 5.3 cm LV Systolic Diameter PLAX 3.4 cm IVS Diastolic Thickness 0.8 cm 0.6 - 1.0 / 0.6 - 0.9 cm LVPW Diastolic Thickness 1.0 cm 0.6 - 1.0 / 0.6 - 0.9 cm LV Relative Wall Thickness 0.4 LVOT Diameter 1.8 cm LA Volume Index 31.6 cm?/m? 16 - 28 cm?/m? Ascending Aorta Diameter 2.6 cm M-MODE AV Cusp Separation MM 1.1 cm DOPPLER AV Peak Velocity 136.0 cm/s AV Peak Gradient 7.4 mmHg AV Mean Gradient 3.0 mmHg AV Velocity Time Integral 28.4 cm LVOT Peak Velocity 91.6 cm/s LVOT Peak Gradient 3.4 mmHg LVOT Velocity Time Integral 19.8 cm LVOT Cardiac Index 2509.7 cm?/min?m? AV Area Cont Eq vti 1.8 cm? AV Area Cont Eq pk 1.7 cm? MV Area PHT 4.4 cm? Mitral E Point Velocity 82.0 cm/s Mitral A Point Velocity 81.5 cm/s Mitral E to A Ratio 1.0 LV E' Lateral Velocity 6.0 cm/s Mitral E to LV E' Lateral Ratio 13.7 LV E' Septal Velocity 3.6 cm/s Mitral E to LV E' Septal Ratio 22.8 TR Peak Velocity 214.0 cm/s TR Peak Gradient 18.3 mmHg PV Peak Velocity 70.6 cm/s PV Peak Gradient 2.0 mmHg FINDINGS Left Ventricle Mild LVH. Normal left ventricular size, systolic function with no obvious regional wall motion abnormalities. Normal left ventricular diastolic filling pattern for age. The ejection fraction is visually estimated at 50-55 %. Right Ventricle The right ventricle is normal in size and systolic function. The estimated right ventricular systolic pressure,33 mmHg with RAP 8. Mild HTN Left Atrium The left atrial cavity size is mildly increased. Right Atrium The right atrium is normal by two-dimensional imaging, color flow and Doppler imaging with no structural abnormalities, no thrombus formation present. Atrial Septum The interatrial septum appears normal with no evidence of a shunt. Aorta The aorta is normal by two-dimensional, color flow and Doppler interrogation. Mitral Valve The mitral valve is normal by two-dimensional, color flow and Doppler interrogation. There is no significant mitral valve regurgitation, stenosis or prolapse. Moderate mitral regurgitation. Aortic Valve The aortic valve is trileaflet and normal by two-dimensional, color flow and Doppler interrogation. There is no significant aortic valve regurgitation. Tricuspid Valve The tricuspid valve is normal by two-dimensional, color flow and Doppler interrogation. There is mild tricuspid valve regurgitation. Pulmonic Valve The pulmonic valve is not well visualized. There is no significant pulmonic valve regurgitation. Vessels IVC not well visualized Pericardium The pericardium is normal by two-dimensional imaging. There is no significant pericardial effusion. Other Findings TDS due to trachea tube and patient crying. CONCLUSIONS TDS due to trachea tube and patient crying. Indication: AHRF Mid LVH. Normal left ventricular size and function. Normal diastology. EF estimated 50-55% Normal right ventricular size and function. Mild dilated LA Mild mitral regurgitation. Mild tricuspid regurgitation Katelyn Menezes (Electronically Signed) Final Date: 03 April 2025 17:49
[2025-04-02 12:03] LABS: Allen Test Performed/OK; Base Excess 2 (-3-3); HCO3 29 mEq/L (20-26); Inspired Oxygen, FIO2 45 %; O2 Saturation 101 % (91-98); PCO2 54 mmHg (32.0-48.0); PO2 182 mmHg (83-108); Puncture Site Right Radial; pH, Arterial 7.33 (7.35-7.45)
--- NOTE | 2025-04-02 13:30 | ESHP_ITS ---
<Statement entered by Peter Buckley MD - 04/10/25 08:17> I reviewed above note and agree with findings and plans. I have also personally examined the patient with medicine team and went over assessment and plan with medical team including internal medicine specialist and resident physician. <Statement entered by Marino Norton MD - 04/02/25 16:00> Patient seen and assessed in hospital bed at this current baseline; moreover, repeat ABGs show improvement in pCO2 and pH levels. Patient is coming back from subacute due to episode of hypertensive urgency, tachypnea, tachycardia and a desaturation event as per ED provider. CTA of the chest was ordered to rule out secondary condition and there is no sign of PE at this time. Patient does have pneumonia which she was discharged back to subacute to complete IV cefepime course. CT of the chest shows persistent pneumonia but chest x-ray shows improvement from prior discharge. Will continue IV cefepime and monitor patient for any acute changes. I have personally seen and examined the patient. I agree with the resident's assessment and plan as documented below. Marino Norton DO PGY-2 Internal Medicine - [facility] Documentation for date of: 04/02/25 HPI History of Present Illness History of present illness: 69-year-old female with PHx of chronic respiratory failure with tracheotomy and PEG and G-tube, ICH, TBI, essential hypertension, seizure disorder, GERD, chronic hyponatremia who presented to the ED with reports of respiratory distress noted this morning. All reports were from nursing staff and subacute as well as from ED staff as the patient not able to verbalize. Patient was recently admitted acute hypoxic hypercapnic respiratory failure secondary to HAP/VAP and was discharged yesterday. In the ED, patient was hypertensive with initial BP of 200/11, tachycardic with a rate of 133, tachypneic with a respiratory rate of 39, afebrile with T 98.4, SpO2 was 100% on mechanical vent. Significant labs include a leukocytosis 12.7, hemoglobin 9.7, sodium of 136, potassium 4.6, chloride 101, bicarb 29.2, glucose 193, T bili 0.2, AST of 41, alk phos 209, UA neg. EKG sinus tachycardia with a rate of approximately 112. Chest x-ray shows stelectasis versus early pneumonia both lung bases. CTA ruled out PE showed prominent pneumonia right lower lobe. UA negative. Initial ABG showed pH 7.1, pCO2 100, PaO2 84 however repeat ABG showed pH 7.3, pCO2 54, pO2 182 on FiO2 45. In ED patient received 1 L of LR, labetalol 20 mg x 1, fentanyl 50 mcg x 1, midazolam 1 mg x 1. PHx: As stated above. Allergies: No known drug allergies Social history: [facility] subacute facility, Dr Gonsalez is the overseeing physician Family history: Noncontributory Patient admitted for acute hypoxic hypercapnic respiratory failure secondary to ongoing ventilator associated pneumonia and hypertensive urgency. Review of Systems Review of Systems Narrative Review of Systems: All systems reviewed negative unless stated otherwise above. Exam Vital Signs Temp Pulse Resp BP Pulse Ox O2 Del Method FiO2 98.4 F 82 31 H 107/51 L 100 Mechanical Ventilation 45 04/02/25 07:29 04/02/25 10:15 04/02/25 10:15 04/02/25 09:15 04/02/25 10:15 04/02/25 10:15 04/02/25 10:15 Narrative Exam General: Not in acute distress. Non-interactive. On mechanical vent. Skin: Warm, dry, intact. Head: Normocephalic, atraumatic. Eye: Normal conjunctiva, PERRL. CVS: Regular rate and rhythm, no murmur, +S1/S2. RESP: Decreased air entry bilat. No crackles, no wheezing. GI: Soft, nontender, non-distended. No guarding or rebound tenderness. GT in place. Extremities: No edema, no cyanosis, no clubbing. Toes contractured bilaterally. Neuro: Non-verbal, minimal movement of upper extremities, no movement lower extremities. No overt cerebellar signs/incoordination. Results: Labs 04/02/25 08:37 04/02/25 07:45 Labs: Short CBC 04/02/25 Range/Units 08:37 WBC 12.7 H D (3.6-11.0) Thou/mm3 Hgb 9.7 L (12.0-16.0) g/dL Hct 30.8 L (36.0-46.0) % Plt Count 250 D (140-440) Thou/mm3 BMP 04/02/25 07:45 Sodium 136 Potassium 4.6 Chloride 101 Carbon Dioxide 29.2 BUN 12 Creatinine 0.5 L Glucose 193 H D Calcium 8.6 Cardiac Enzymes 04/02/25 Range/Units 07:45 Troponin I 0.021 (0.0-0.045) ng/mL Liver Function 04/02/25 Range/Units 07:45 Total Bilirubin 0.2 L (0.3-1.2) mg/dL AST 41 H (0-34) U/L ALT 41 (10-49) U/L Alkaline Phosphatase 209 H D (46-116) U/L Albumin 4.5 D (3.4-4.8) gm/dL Urine 04/02/25 Range/Units 07:51 Urine Color Colorless A (Lt Yel-Yel) Urine Clarity Clear (Clear/Hazy) Urine pH 6.5 (5.0-7.0) Ur Specific Jewell 1.009 (1.001-1.035) Urine Protein Negative (Neg - Trace) Urine Glucose (UA) Trace (Negative) ABG Interpretation ABG results: 04/02/25 04/02/25 08:05 11:57 ABG pH 7.10 L* 7.33 L D ABG pCO2 100 H* 54 H D ABG pO2 84 182 H D ABG HCO3 31 H 29 H ABG O2 Saturation 92 101 H ABG Base Excess -1 2 Quality Measures Quality Measures VTE prophylaxis Advance care planning discussed with:: patient Medications Home Medications and Allergies Allergies Allergy/AdvReac Type Severity Reaction Status Date / Time No Known Allergies Allergy Verified 03/27/25 13:04 Visit Medications Heparin Sodium (Porcine) (Heparin Sod Inj 5000 Unit/Ml Vial) 5,000 unit SC Q12HR POLLO Stop: 04/16/25 20:59 Discontinued Medications Fentanyl Citrate (Fentanyl Cit Inj 50 Mcg/Ml Amp 2ml) 50 mcg IVP X1 ONE Stop: 04/02/25 07:58 Last Admin: 04/02/25 09:15 Dose: 50 mcg Lactated Ringer's (Lactated Ringers) 1,000 mls @ 999 mls/hr IV .Q1H1M ONE Stop: 04/02/25 08:47 Last Infusion: 04/02/25 10:00 Dose: Infused Labetalol HCl (Labetalol Inj 5 Mg/Ml Vial 20 Ml) 20 mg IVP X1 ONE Stop: 04/02/25 07:48 Last Admin: 04/02/25 07:56 Dose: 20 mg Midazolam HCl (Midazolam Inj 1 Mg/Ml Vial 2 Ml) 1 mg IVP X1 ONE Stop: 04/02/25 07:58 Last Admin: 04/02/25 09:18 Dose: 1 mg Assessment & Plan Plan 69-year-old female with PHx of chronic respiratory failure with tracheotomy and PEG and G-tube, ICH, TBI, essential hypertension, seizure disorder, GERD, chronic hyponatremia who presented to the ED from subacute with reports of respiratory distress noted this morning. All reports were from nursing staff and subacute as well as from ED staff as the patient not able to verbalize. Patient admitted due to acute hypoxic hypercapnic respiratory failure secondary to ongoing VAP and hypertensive urgency. #Acute hypoxic hypercapnic respiratory failure 2/2 to VAP #PE ruled out Patient has pneumonia which she was discharged with on cefepime course yesterday. However chest x-ray today shows improvement from discharge CTA was negative for PE Initial ABG showed pH 7.1, pCO2 100, PaO2 84 however repeat ABG showed pH 7.3, pCO2 54, pO2 182 on FiO2 45 WBC 12.7 Temperature 98.4 on admission Plan ? Continue cefepime IV every 8 hours ? Patient continues to be on mechanical ventilation ? Follow blood cultures #Hypertensive urgency #History of essential hypertension Patient presented with blood pressure of 200/112 Patient has history of hypertension, losartan home dose 100 mg daily via G-tube Patient received labetalol 20 mg IV x 1 in ED and BP improved Plan ?Continue home medication #History of ICH, leading to TBI #Chronic respiratory failure s/p trach Patient has a history of intracerebral hemorrhage back in 2012, which led to a fall, resulting in a traumatic brain injury. The traumatic brain injury resulted in chronic respiratory failure, requiring the patient to be status post tracheostomy tube. Patient is managed in subacute since. Plan: Continue to monitor Continue mechanical ventilation, transition to blow-by as tolerated #History of seizure disorder, unspecified Patient is noted to have a history of seizure disorder per chart review. Patient has been prescribed breakthrough seizure medication, however does not seem to be on any sort of antiseizure medication. Plan: - Patient to follow up with outpatient neurology - Diazepam 5 mg IV as needed #GERD, on PPI Patient is noted to have a history of GERD and takes esomeprazole in subacute. Plan: - Lansoprazole 30 mg GT daily Health Maintenance: Diet: Promote 1.0 Singh with fiber GI prophylaxis: Lansoprazole 30 mg GT DVT prophylaxis: Heparin 5000 units every 12 hours Antibiotics: Cefepime CODE STATUS: FULL Disposition: TELE Case discussed with my attending Dr. Buckley , and senior resident, Dr. Errol Ruby MD PGY-1
--- NOTE | 2025-04-02 14:29 | PC.NURSE ---
pt arrived to floor
[2025-04-02] MEDS: CEFEPIME INJ 2 GM in SODIUM CHLORIDE 0.9% (Popper) 50 ML IV ×2 (16:44→21:46)
--- NOTE | 2025-04-02 17:40 | PC.NURSE ---
Called Md Rendon to notify that promote feeding with fiber not available, per change order to just promote
[2025-04-02] MEDS: ACETAMINOPHEN 325 MG TABLET 650 MG NG (21:47)
[2025-04-02] MEDS: LOSARTAN POTASSIUM 25 MG TABLET 100 MG GT (21:47)
[2025-04-02] MEDS: FLUDROCORTISONE ACETATE 0.1 MG TABLET GT (21:47)
[2025-04-02] MEDS: HEPARIN SOD INJ 5000 UNIT/ML VIAL SC (21:49)
[2025-04-02] MEDS: ALBUTEROL/IPRATROPIUM (Duoneb) RT SOL 3 ML NEBU INH (23:00)
[2025-04-03] VITALS (15 sets, daily range): BP systolic 117–152; BP diastolic 70–100; PULSE 54–84; RESP 17–40; TEMP 35.9–36.4; O2SAT 100; BMI 20.4
[2025-04-03] MEDS: CEFEPIME INJ 2 GM in SODIUM CHLORIDE 0.9% (Popper) 50 ML IV ×3 (05:37→22:02)
[2025-04-03] MEDS: ACETAMINOPHEN 325 MG TABLET 650 MG NG (05:37)
[2025-04-03 05:58] LABS: Basophils # (Auto) 0.0 Thou/mm3 (0.0-0.2); Basophils % (Auto) 1 % (0-2.5); Eosinophils # (Auto) 0.2 Thou/mm3 (0.0-0.5); Eosinophils % (Auto) 4 % (0-10); Hematocrit 27.6 % (36.0-46.0); Immature Granulocytes Auto 0.02 Thou/mm3 (0.00-0.00); Lymphocytes # (Auto) 1.2 Thou/mm3 (1.0-4.8); Lymphocytes % (Auto) 20 % (10-50); Mean Corpuscular HGB Conc 30.8 g/dl (31.0-37.0); Mean Corpuscular Hemoglobin 27.0 pg (25.0-35.0); Mean Corpuscular Volume 88 fL (80-100); Monocytes # (Auto) 0.7 Thou/mm3 (0.0-0.8); Monocytes % (Auto) 11 % (0-12); Neutrophils # (Auto) 4.0 Thou/mm3 (1.8-7.7); Neutrophils % (Auto) 65 % (37-80); Nucleated Red Blood Cell # 0.00 Thou/mm3 (0.00-0.00); Nucleated Red Blood Cell % 0 /100 WBC (0); Platelet Count 220 Thou/mm3 (140-440); RDW Standard Deviation 52.9 fL (36.4-46.3); Red Blood Count 3.15 Miln/mm3 (4.00-5.20); White Blood Count 6.2 Thou/mm3 (3.6-11.0)
[2025-04-03 06:02] LABS: Hemoglobin 8.5 g/dL (12.0-16.0)
[2025-04-03 06:16] LABS: Anion Gap 7 (7-16); BUN/Creatinine Ratio 40 Ratio (12-20); Blood Urea Nitrogen 16 mg/dL (9-23); Calcium 8.9 mg/dL (8.3-10.6); Carbon Dioxide 30.1 mMol/L (20.0-31.0); Chloride 101 mMol/L (98-107); Creatinine (Component) 0.4 mg/dL (0.6-1.3); Glucose 98 mg/dL (74-106); Magnesium 2.2 mg/dL (1.6-2.6); Osmolality,Calculated 276 (275-295); Phosphorous 3.7 mg/dL (2.4-5.1); Potassium 4.5 mMol/L (3.4-5.1); Sodium 138 mMol/L (136-145); eGFR > 60 See Note
--- NOTE | 2025-04-03 08:55 | PC.SS ---
Follow up note: Pending ECHO. On IV antibiotic. Pt will return home upon dc.
[2025-04-03] MEDS: HEPARIN SOD INJ 5000 UNIT/ML VIAL SC ×2 (09:44→22:00)
[2025-04-03] MEDS: LANSOPRAZOLE 30 MG TAB.RAP.DR GT (09:44)
[2025-04-03] MEDS: MULTIVITAMIN 15 ML UDC GT (09:44)
--- NOTE | 2025-04-03 10:15 | CHAP ---
Patient was visited by the Spiritual Care Volunteer who prayed for them. (Volunteer was in the hospital from 09:30-10:15).
[2025-04-03 10:19] LABS: Base Excess 4 (-3-3); HCO3 30 mEq/L (20-26); Inspired Oxygen, FIO2 40 %; O2 Saturation 100 % (91-98); PCO2 56 mmHg (32.0-48.0); PO2 172 mmHg (83-108); pH, Arterial 7.34 (7.35-7.45)
[2025-04-03 10:20] LABS: Allen Test Performed/OK; Puncture Site Left Radial
--- NOTE | 2025-04-03 11:51 | XR_ITS ---
Examination: AP chest single view TECHNIQUE: AP portable semiupright chest single view Date and time: April 03, 2025, 1158 hours, comparison April 02, 2025 INDICATIONS: Tachypnea today FINDINGS: Reduced inspiratory. Normal heart size Atelectasis versus early pneumonia left base No pulmonary edema Tracheostomy tube tip 3.8 cm above cele IMPRESSION: Atelectasis versus early pneumonia left base
[2025-04-03] MEDS: HYDROmorphone INJ 2 MG/ML VIAL 0.25 MG IVP (12:41)
--- NOTE | 2025-04-03 13:22 | ESPR_ITS ---
<Statement entered by Peter Buckley MD - 04/10/25 08:18> I reviewed above note and agree with findings and plans. I have also personally examined the patient with medicine team and went over assessment and plan with medical team including international marketing specialist and resident physician. <Statement entered by Marino Norton MD - 04/03/25 15:36> Patient seen and examined in hospital bed exhibiting signs of respiratory distress. Patient continues to be treated with IV cefepime for ventilator associated pneumonia; however, initial desaturation event in the ED which showed signs of acidemia secondary to respiratory acidosis has largely been resolved. Repeat ABG shows a pH of 7.34 with a pCO2 of mildly elevated. Will initiate increased chest physiotherapy, mucolytics and frequent suctioning as the patient's condition is likely secondary to mucous plugging and high burden of secretions from being on ventilator. Repeat chest x-ray did not show any new findings other than the left base pneumonia. Will continue monitoring overnight but expect discharge within the next 24 hours back to subacute center. I have personally seen and examined the patient. I agree with the resident's assessment and plan as documented below. Marino Norton DO PGY-2 Internal Medicine - [facility] Documentation for date of: 04/03/25 Subjective Subjective Interval history: Patient seen at bedside. No acute overnight events. Patient was agitated overnight. He came to the daughter today she feels that the patient is at her baseline of interaction. Exam Vital Signs Temp Pulse Resp BP Pulse Ox O2 Del Method FiO2 96.9 F 84 40 H 148/93 H 100 Mechanical Ventilation 40 04/03/25 08:00 04/03/25 12:38 04/03/25 08:00 04/03/25 08:00 04/03/25 12:38 04/03/25 08:00 04/03/25 12:38 Narrative Exam General: Not in acute distress. Non-interactive. On mechanical vent. Skin: Warm, dry, intact. Head: Normocephalic, atraumatic. Eye: Normal conjunctiva, PERRL. CVS: Regular rate and rhythm, no murmur, +S1/S2. RESP: Decreased air entry bilat. No crackles, no wheezing. GI: Soft, nontender, non-distended. No guarding or rebound tenderness. GT in place. Extremities: No edema, no cyanosis, no clubbing. Toes contractured bilaterally. Neuro: Non-verbal, minimal movement of upper extremities, no movement lower extremities. No overt cerebellar signs/incoordination. Objective Labs 04/03/25 05:23 04/03/25 05:23 Labs: Laboratory Results - last 24 hr 04/03/25 04/03/25 05:23 10:12 WBC 6.2 D RBC 3.15 L Hgb 8.5 L Hct 27.6 L MCV 88 MCH 27.0 MCHC 30.8 L RDW Std Deviation 52.9 H Plt Count 220 D Neut % (Auto) 65 Lymph % (Auto) 20 Edmunds % (Auto) 11 Eos % (Auto) 4 Baso % (Auto) 1 Neut # (Auto) 4.0 Lymph # (Auto) 1.2 Edmunds # (Auto) 0.7 Eos # (Auto) 0.2 Baso # (Auto) 0.0 Immature Gran # (Auto) 0.02 H Absolute Nucleated RBC 0.00 Immature Gran % 0 Nucleated RBC % 0 Puncture Site Left Radial ABG pH 7.34 L ABG pCO2 56 H ABG pO2 172 H ABG HCO3 30 H ABG O2 Saturation 100 H ABG Base Excess 4 H FiO2 40 Sodium 138 Potassium 4.5 Chloride 101 Carbon Dioxide 30.1 Anion Gap 7 BUN 16 Creatinine 0.4 L Estim Creat Clear Calc Not Performed. eGFR > 60 BUN/Creatinine Ratio 40 H Glucose 98 D Calculated Osmolality 276 Calcium 8.9 Phosphorus 3.7 Magnesium 2.2 ABG Interpretation ABG results: 04/02/25 04/02/25 04/03/25 08:05 11:57 10:12 ABG pH 7.10 L* 7.33 L D 7.34 L ABG pCO2 100 H* 54 H D 56 H ABG pO2 84 182 H D 172 H ABG HCO3 31 H 29 H 30 H ABG O2 Saturation 92 101 H 100 H ABG Base Excess -1 2 4 H Quality Measures Quality Measures VTE prophylaxis Advance care planning discussed with:: patient Assessment & Plan Assessment Current Active Medications: Generic Name Dose Route Start Last Admin Trade Name Freq PRN Reason Stop Dose Admin Acetaminophen 650 mg 04/02/25 15:55 04/03/25 05:37 Acetaminophen 325 Mg Tablet NG 05/02/25 15:54 650 mg Q6HR PRN Administration Pain 1-3 and/or Fever >100.1 Acetylcysteine 3 ml 04/03/25 15:00 Acetylcysteine Rt Day 10% 4 Ml Nebu INH 05/03/25 14:59 Q4HRRT POLLO Albuterol/Ipratropium 3 ml 04/03/25 15:00 Albuterol/Ipratropium (Duoneb) Rt Day 3 Ml Nebu INH 05/03/25 14:59 Q4HRRT POLLO Diazepam 5 mg 04/02/25 16:12 Diazepam Inj 5 Mg/Ml Vial 2 Ml IV 04/07/25 16:11 PRN PRN Seizure Activity Fludrocortisone Acetate 0.1 mg 04/02/25 21:00 04/02/25 21:47 Fludrocortisone Acetate 0.1 Mg Tablet GT 05/02/25 20:59 0.1 mg 2100 POLLO Administration Gabapentin 300 mg 04/03/25 10:00 Gabapentin 300 Mg Capsule PO 05/03/25 09:59 TID POLLO Heparin Sodium (Porcine) 5,000 unit 04/02/25 21:00 04/03/25 09:44 Heparin Sod Inj 5000 Unit/Ml Vial SC 04/16/25 20:59 5,000 unit Q12HR POLLO Administration Cefepime HCl 2 gm/ Sodium 50 mls @ 100 mls/hr 04/02/25 15:54 04/03/25 05:37 Chloride IV 04/09/25 15:53 100 mls/hr Q8HR POLLO Administration Lansoprazole 30 mg 04/03/25 09:00 04/03/25 09:44 Lansoprazole 30 Mg Tab. GT 05/03/25 08:59 30 mg DAILY POLLO Administration Losartan Potassium 100 mg 04/02/25 21:00 04/02/25 21:47 Losartan Potassium 25 Mg Tablet GT 05/02/25 20:59 100 mg HS POLLO Administration Multivitamins/Minerals 15 ml 04/03/25 09:00 04/03/25 09:44 Multivitamin 15 Ml Udc GT 05/03/25 08:59 15 ml QDAY POLLO Administration Ondansetron HCl 4 mg 04/02/25 15:54 Ondansetron Inj 2 Mg/Ml Inj 2 Ml IVP 05/02/25 15:53 Q6HR PRN NAUSEA OR VOMITING Protocol Sennosides 1 tab 04/02/25 21:00 04/02/25 21:47 Senna Tablet GT 05/02/25 20:59 1 tab HS POLLO Administration Protocol Plan 69-year-old female with PHx of chronic respiratory failure with tracheotomy and PEG and G-tube, ICH, TBI, essential hypertension, seizure disorder, GERD, chronic hyponatremia who presented to the ED from subacute with reports of respiratory distress noted this morning. All reports were from nursing staff and subacute as well as from ED staff as the patient not able to verbalize. Patient admitted due to acute hypoxic hypercapnic respiratory failure secondary to ongoing VAP and hypertensive urgency. #Acute hypoxic hypercapnic respiratory failure 2/ to VAP #PE ruled out Patient has pneumonia which she was discharged with on cefepime course yesterday. Repeat chest x-ray today unchanged from yesterday ABG today showed pH 7.34, pCO2 56, pO2 172 on FiO2 40 WBC improved to 6.2 BNP mildly elevated at 182, no pedal edema on physical exam, JVP difficult to assess Patient could have had a mucous plug that might explain the elevated pCO2, as no hx of COPD Plan ? Continue cefepime IV every 8 hours (03/27 - ? Acetylcysteine 10% solution every 4 hours to thin mucus in the lungs ? Patient continues to be on mechanical ventilation, RT following ? Follow blood cultures ? Echo taken today to rule out cardiac cause ? Nursing to continue doing suctioning ? Chest physiotherapy to aid with mucus clearance #Tachypnea May be related to underlying uncontrolled pain, anxiety Respiratory rate has been in the 30s and 40s Plan ?Started on gabapentin 300 mg 3 times daily ?Hydromorphone IV 0.25 mg x 1 given #Hypertensive urgency, resolved #History of essential hypertension Patient presented with blood pressure of 200/112. Patient has history of hypertension, losartan home dose 100 mg daily via G-tube Patient received labetalol 20 mg IV x 1 in ED and BP improved Plan ?Continue home medication #History of ICH, leading to TBI #Chronic respiratory failure s/p trach Patient has a history of intracerebral hemorrhage back in 2012, which led to a fall, resulting in a traumatic brain injury. The traumatic brain injury resulted in chronic respiratory failure, requiring the patient to be status post tracheostomy tube. Patient is managed in subacute since. Plan: Continue to monitor Continue mechanical ventilation, transition to blow-by as tolerated #History of seizure disorder, unspecified Patient is noted to have a history of seizure disorder per chart review. Patient has been prescribed breakthrough seizure medication, however does not seem to be on any sort of antiseizure medication. Plan: - Patient to follow up with outpatient neurology - Diazepam 5 mg IV as needed #GERD, on PPI Patient is noted to have a history of GERD and takes esomeprazole in subacute. Plan: - Lansoprazole 30 mg GT daily Health Maintenance: Diet: Jevity 1.5 GI prophylaxis: Lansoprazole 30 mg GT DVT prophylaxis: Heparin 5000 units every 12 hours Antibiotics: Cefepime CODE STATUS: FULL Disposition: TELE Case discussed with my attending Dr. Buckley, and senior resident, Dr. Errol Ruby MD PGY-1
[2025-04-03] MEDS: GABAPENTIN 300 MG CAPSULE PO ×2 (14:10→22:03)
[2025-04-03] MEDS: ACETYLCYSTEINE RT SOL 10% 4 ML NEBU 3 ML INH ×3 (14:35→22:22)
[2025-04-03] MEDS: ALBUTEROL/IPRATROPIUM (Duoneb) RT SOL 3 ML NEBU INH ×3 (14:35→22:22)
--- NOTE | 2025-04-03 14:59 | PC.DIETICIAN ---
Nutrition prescription Jevity 1.5 at 25 ml/hr via PEG tube by pump. Advance to goal rate of 32 ml/hr x 24 hrs if tolerated for 8 hrs. If no IV fluids, water flushes of 30 ml/hr (or per MD).
--- NOTE | 2025-04-03 15:11 | PC.SS ---
Pt is from [facility]. Pt is alert but unresponsive. Pt was admitted for AHRF. SS spoke to Zee from [facility] who states patient's medical decision maker is her daughter, Homa Griffiths. Patient's contact formation is correct on facesheet. Pt is on peg/trach/ventilator. Pt is total care and transfers with lift into a Kaleigh chair. Pt will return to [facility] upon dc. D/C plan: Return [facility] Next of Kin: Homa Griffiths, dtr, phone# [phone] PCP: Dr. Gonsalez Address: Correct on facesheet
[2025-04-03] MEDS: FLUDROCORTISONE ACETATE 0.1 MG TABLET GT (22:00)
[2025-04-03] MEDS: DIAZEPAM INJ 5 MG/ML VIAL 2 ML IV (22:03)
[2025-04-04] VITALS (19 sets, daily range): BP systolic 72–150; BP diastolic 44–102; PULSE 77–135; RESP 16–47; TEMP 35.9–36.4; O2SAT 93–100; BMI 21.4
[2025-04-04] MEDS: ALBUTEROL/IPRATROPIUM (Duoneb) RT SOL 3 ML NEBU INH ×6 (02:12→22:22)
[2025-04-04] MEDS: ACETYLCYSTEINE RT SOL 10% 4 ML NEBU 3 ML INH ×6 (02:12→22:21)
[2025-04-04] MEDS: CEFEPIME INJ 2 GM in SODIUM CHLORIDE 0.9% (Popper) 50 ML IV ×3 (05:28→22:12)
[2025-04-04] MEDS: GABAPENTIN 300 MG CAPSULE PO ×3 (05:30→22:12)
[2025-04-04 05:44] LABS: Basophils # (Auto) 0.0 Thou/mm3 (0.0-0.2); Basophils % (Auto) 1 % (0-2.5); Eosinophils # (Auto) 0.2 Thou/mm3 (0.0-0.5); Eosinophils % (Auto) 2 % (0-10); Hematocrit 29.3 % (36.0-46.0); Hemoglobin 9.1 g/dL (12.0-16.0); Immature Granulocytes Auto 0.01 Thou/mm3 (0.00-0.00); Lymphocytes # (Auto) 1.2 Thou/mm3 (1.0-4.8); Lymphocytes % (Auto) 19 % (10-50); Mean Corpuscular HGB Conc 31.1 g/dl (31.0-37.0); Mean Corpuscular Hemoglobin 27.4 pg (25.0-35.0); Mean Corpuscular Volume 88 fL (80-100); Monocytes # (Auto) 0.7 Thou/mm3 (0.0-0.8); Monocytes % (Auto) 10 % (0-12); Neutrophils # (Auto) 4.4 Thou/mm3 (1.8-7.7); Neutrophils % (Auto) 68 % (37-80); Nucleated Red Blood Cell # 0.00 Thou/mm3 (0.00-0.00); Nucleated Red Blood Cell % 0 /100 WBC (0); Platelet Count 219 Thou/mm3 (140-440); RDW Standard Deviation 53.9 fL (36.4-46.3); Red Blood Count 3.32 Miln/mm3 (4.00-5.20); White Blood Count 6.5 Thou/mm3 (3.6-11.0)
[2025-04-04 06:19] LABS: Anion Gap 9 (7-16); BUN/Creatinine Ratio 35 Ratio (12-20); Blood Urea Nitrogen 14 mg/dL (9-23); Calcium 8.8 mg/dL (8.3-10.6); Carbon Dioxide 30.4 mMol/L (20.0-31.0); Chloride 100 mMol/L (98-107); Creatinine (Component) 0.4 mg/dL (0.6-1.3); Estimated Creatinine Clearance 117.9 mL/min (>60); Glucose 129 mg/dL (74-106); Osmolality,Calculated 280 (275-295); Potassium 4.4 mMol/L (3.4-5.1); Sodium 139 mMol/L (136-145); eGFR > 60 See Note
[2025-04-04] MEDS: MULTIVITAMIN 15 ML UDC GT (08:11)
[2025-04-04] MEDS: HEPARIN SOD INJ 5000 UNIT/ML VIAL SC ×2 (08:11→20:27)
[2025-04-04] MEDS: LANSOPRAZOLE 30 MG TAB.RAP.DR GT (08:11)
--- NOTE | 2025-04-04 12:07 | ESPR_ITS ---
<Statement entered by Patsy Sears MD - 04/04/25 12:18> I discussed with and supervised the policy intern physician who took care of this patient. I personally saw and examined the patient and discussed the assessment and plan with the entire medicine team, including my attending , I agree with the assessment and plan as documented below Patsy Sears M.D. PGY-3 Disclaimer: Despite multiple revisions, due to the dictation software being used, the document bellow may not be free of grammatical errors including phonetic/typographic errors. However, this does not deter from our commitment to providing health care in the patient's best interest in mind. Documentation for date of: 04/04/25 Subjective Subjective Interval history: Patient seen at bedside. No acute overnight events. Patient was agitated overnight and settled with TV being turned on. No concerns from nursing staff regarding worsening resp status, or any new symptoms. Exam Vital Signs Temp Pulse Resp BP Pulse Ox O2 Del Method FiO2 97.4 F 100 36 H 128/76 100 Mechanical Ventilation 40 04/04/25 12:00 04/04/25 12:00 04/04/25 12:00 04/04/25 12:00 04/04/25 12:00 04/04/25 12:00 04/04/25 10:34 Narrative Exam General: Not in acute distress. Non-interactive. On mechanical vent. Skin: Warm, dry, intact. Head: Normocephalic, atraumatic. Eye: Normal conjunctiva, PERRL. CVS: Regular rate and rhythm, no murmur, +S1/S2. RESP: Decreased air entry bilat. No crackles, no wheezing. GI: Soft, nontender, non-distended. No guarding or rebound tenderness. GT in place. Extremities: No edema, no cyanosis, no clubbing. Toes contractured bilaterally. Neuro: Non-verbal, minimal movement of upper extremities, no movement lower extremities. No overt cerebellar signs/incoordination. Objective Labs 04/04/25 05:05 04/04/25 05:05 Labs: Laboratory Results - last 24 hr 04/04/25 05:05 WBC 6.5 RBC 3.32 L Hgb 9.1 L Hct 29.3 L MCV 88 MCH 27.4 MCHC 31.1 RDW Std Deviation 53.9 H Plt Count 219 Neut % (Auto) 68 Lymph % (Auto) 19 [place] % (Auto) 10 Eos % (Auto) 2 Baso % (Auto) 1 Neut # (Auto) 4.4 Lymph # (Auto) 1.2 [place] # (Auto) 0.7 Eos # (Auto) 0.2 Baso # (Auto) 0.0 Immature Gran # (Auto) 0.01 H Absolute Nucleated RBC 0.00 Immature Gran % 0 Nucleated RBC % 0 Sodium 139 Potassium 4.4 Chloride 100 Carbon Dioxide 30.4 Anion Gap 9 BUN 14 Creatinine 0.4 L Estim Creat Clear Calc 117.9 eGFR > 60 BUN/Creatinine Ratio 35 H Glucose 129 H Calculated Osmolality 280 Calcium 8.8 ABG Interpretation ABG results: 04/02/25 04/02/25 04/03/25 08:05 11:57 10:12 ABG pH 7.10 L* 7.33 L D 7.34 L ABG pCO2 100 H* 54 H D 56 H ABG pO2 84 182 H D 172 H ABG HCO3 31 H 29 H 30 H ABG O2 Saturation 92 101 H 100 H ABG Base Excess -1 2 4 H Quality Measures Quality Measures VTE prophylaxis Advance care planning discussed with:: patient Assessment & Plan Assessment Current Active Medications: Generic Name Dose Route Start Last Admin Trade Name Freq PRN Reason Stop Dose Admin Acetaminophen 650 mg 04/02/25 15:55 04/03/25 05:37 Acetaminophen 325 Mg Tablet NG 05/02/25 15:54 650 mg Q6HR PRN Administration Pain 1-3 and/or Fever >100.1 Acetylcysteine 3 ml 04/03/25 15:00 04/04/25 10:30 Acetylcysteine Rt Day 10% 4 Ml Nebu INH 05/03/25 14:59 3 ml Q4HRRT POLLO Administration Albuterol/Ipratropium 3 ml 04/03/25 15:00 04/04/25 10:30 Albuterol/Ipratropium (Duoneb) Rt Day 3 Ml Nebu INH 05/03/25 14:59 3 ml Q4HRRT POLLO Administration Diazepam 5 mg 04/02/25 16:12 04/03/25 22:03 Diazepam Inj 5 Mg/Ml Vial 2 Ml IV 04/07/25 16:11 5 mg PRN PRN Administration Seizure Activity Fludrocortisone Acetate 0.1 mg 04/02/25 21:00 04/03/25 22:00 Fludrocortisone Acetate 0.1 Mg Tablet GT 05/02/25 20:59 0.1 mg 2100 POLLO Administration Gabapentin 300 mg 04/03/25 10:00 04/04/25 05:30 Gabapentin 300 Mg Capsule PO 05/03/25 09:59 300 mg TID POLLO Administration Heparin Sodium (Porcine) 5,000 unit 04/02/25 21:00 04/04/25 08:11 Heparin Sod Inj 5000 Unit/Ml Vial SC 04/16/25 20:59 5,000 unit Q12HR POLLO Administration Cefepime HCl 2 gm/ Sodium 50 mls @ 100 mls/hr 04/02/25 15:54 04/04/25 05:28 Chloride IV 04/09/25 15:53 100 mls/hr Q8HR POLLO Administration Lansoprazole 30 mg 04/03/25 09:00 04/04/25 08:11 Lansoprazole 30 Mg Tab. GT 05/03/25 08:59 30 mg DAILY POLLO Administration Losartan Potassium 100 mg 04/02/25 21:00 04/03/25 22:02 Losartan Potassium 25 Mg Tablet GT 05/02/25 20:59 Not Given HS POLLO Multivitamins/Minerals 15 ml 04/03/25 09:00 04/04/25 08:11 Multivitamin 15 Ml Udc GT 05/03/25 08:59 15 ml QDAY POLLO Administration Ondansetron HCl 4 mg 04/02/25 15:54 Ondansetron Inj 2 Mg/Ml Inj 2 Ml IVP 05/02/25 15:53 Q6HR PRN NAUSEA OR VOMITING Protocol Sennosides 1 tab 04/02/25 21:00 04/03/25 22:02 Senna Tablet GT 05/02/25 20:59 1 tab HS POLLO Administration Protocol Plan 69-year-old female with PHx of chronic respiratory failure with tracheotomy and PEG and G-tube, ICH, TBI, essential hypertension, seizure disorder, GERD, chronic hyponatremia who presented to the ED from subacute with reports of respiratory distress noted this morning. All reports were from nursing staff and subacute as well as from ED staff as the patient not able to verbalize. Patient admitted due to acute hypoxic hypercapnic respiratory failure secondary to ongoing VAP and hypertensive urgency. #Acute hypoxic hypercapnic respiratory failure 2/2 to VAP, improving #PE ruled out Patient has pneumonia which she was discharged with on cefepime course 04/01 Repeat chest x-ray 04/03 unchanged from 04/02 ABG 04/03 showed pH 7.34, pCO2 56, pO2 172 on FiO2 40 WBC WNL BNP mildly elevated at 182, no pedal edema on physical exam, JVP difficult to assess Patient could have had a mucous plug that might explain the elevated pCO2, as no hx of COPD Blood cultures neg after 48 hrs ECHO 04/03 shows normal LVF with EF 50-55% Plan ? Continue cefepime IV every 8 hours (03/27 - 04/04) - 10-day course ? Acetylcysteine 10% solution every 4 hours to thin mucus in the lungs ? Patient continues to be on mechanical ventilation, RT following ? Nursing to continue doing suctioning ? Chest physiotherapy to aid with mucus clearance #Tachypnea May be related to underlying uncontrolled pain, anxiety Respiratory rate has been in the 30s and 40s Plan ? Started on gabapentin 300 mg 3 times daily #Hypertensive urgency, resolved #History of essential hypertension Patient presented with blood pressure of 200/112. Patient has history of hypertension, losartan home dose 100 mg daily via G-tube Patient received labetalol 20 mg IV x 1 in ED and BP improved Plan ? Continue home medication #History of ICH, leading to TBI #Chronic respiratory failure s/p trach Patient has a history of intracerebral hemorrhage back in 2012, which led to a fall, resulting in a traumatic brain injury. The traumatic brain injury resulted in chronic respiratory failure, requiring the patient to be status post tracheostomy tube. Patient is managed in subacute since. Plan: Continue to monitor Continue mechanical ventilation, transition to blow-by as tolerated #History of seizure disorder, unspecified Patient is noted to have a history of seizure disorder per chart review. Patient has been prescribed breakthrough seizure medication, however does not seem to be on any sort of antiseizure medication. Plan: - Patient to follow up with outpatient neurology - Diazepam 5 mg IV as needed #GERD, on PPI Patient is noted to have a history of GERD and takes esomeprazole in subacute. Plan: - Lansoprazole 30 mg GT daily Health Maintenance: Diet: Jevity 1.5 GI prophylaxis: Lansoprazole 30 mg GT DVT prophylaxis: Heparin 5000 units every 12 hours Antibiotics: Cefepime CODE STATUS: FULL Disposition: TELE Case discussed with my attending Dr. Rey, and senior resident, Dr. Lanny Ruby MD PGY-1 Attending Provider Attestation/Addendum I attest that I was physically present for the evaluation, physical examination, lab and imaging review of the patient with the residents. I discussed the case with the residents and agree with the findings and plans of care as documented above. Patient seen and examined at bedside this morning. Appears comfortable. Vitals are stable except for tachypnea which seem to be improving compared to yesterday. WBC count has been stable. Rest of the labs are also stable. Blood culture has been negative for more than 48 hours. Continues to be on Mucomyst and chest physiotherapy along with IV cefepime. Awaiting placement back to subacute. Stevan Rey MD
[2025-04-04] MEDS: ACETAMINOPHEN 325 MG TABLET 650 MG NG ×2 (13:30→23:45)
[2025-04-04] MEDS: HYDROmorphone INJ 2 MG/ML VIAL 0.25 MG IVP (14:26)
[2025-04-04] MEDS: SODIUM CHLORIDE 0.9% 500 ML 500 ML 999 ML IV (16:24)
[2025-04-04] MEDS: NALOXONE INJ 1 MG/ML SYRINGE 2 ML IV (16:25)
--- NOTE | 2025-04-04 16:28 | PD.RESEVENT ---
Documentation for date of: 04/04/25 Event Note Event Note: Rapid Response was called to room 264 at for hypotension (72/45 mmHg) and unresponsiveness. The patient was assessed and found to be sedated, difficult to arouse, and displayed constricted pupils, consistent with opioid-induced respiratory depression following the administration of Dilaudid (0.25 mg IV) at approximately 14:30 for pain; heart and lung sounds were normal, and capillary refill was prompt. The patient was immediately given Narcan 1 mg IV push, resulting in an improvement in blood pressure to 104/63 mmHg and a gradual return to baseline mental status and activity. A 250 mL normal saline bolus was administered, followed by an order for 250 mL NS to run at 75 mL/hr, and labs (CMP and Lactate) were ordered. Patient was assessed with my attending Dr. Krissy Ruby MD PGY-1
[2025-04-04 16:35] LABS: Lactate (Lactic Acid) 1.5 mMol/L (0.4-2.0)
--- NOTE | 2025-04-04 17:10 | XR_ITS ---
Examination: AP chest single view Technique one AP portable semiupright chest single view Date and time: April 04, 2025, 1714 hrs., Comparison April 03, 2025 Indications: Respiratory distress today. Findings: Mild enlargement cardiac contour Moderate vascular congestion. Atelectasis versus pneumonia right base Tracheostomy tube tip 4.7 cm above cele Impression: Early heart failure Atelectasis versus pneumonia right base, clinical correlation advised.
[2025-04-04 17:25] LABS: Alanine Aminotransferase 23 U/L (10-49); Albumin, Serum 3.6 gm/dL (3.4-4.8); Albumin/Globulin Ratio 1.2 (1.2-2.2); Alkaline Phosphatase 164 U/L (46-116); Anion Gap 7 (7-16); Aspartate Amino Transferase 28 U/L (0-34); BUN/Creatinine Ratio 24 Ratio (12-20); Bilirubin,Total 0.2 mg/dL (0.3-1.2); Blood Urea Nitrogen 12 mg/dL (9-23); Calcium 8.6 mg/dL (8.3-10.6); Calcium (Corrected) 8.9 mg/dL (8.5-10.1); Carbon Dioxide 30.2 mMol/L (20.0-31.0); Chloride 102 mMol/L (98-107); Creatinine (Component) 0.5 mg/dL (0.6-1.3); Estimated Creatinine Clearance 94.3 mL/min (>60); Globulin 3.1 gm/dL (2.3-3.5); Glucose 137 mg/dL (74-106); Osmolality,Calculated 279 (275-295); Potassium 4.8 mMol/L (3.4-5.1); Sodium 139 mMol/L (136-145); Total Protein 6.7 gm/dL (5.7-8.2); eGFR > 60 See Note
[2025-04-04] MEDS: DIAZEPAM INJ 5 MG/ML VIAL 2 ML 2.5 MG IV (17:56)
[2025-04-04] MEDS: VANCOMYCIN/WATER 1250 MG IVPB 250 ML 120 MG IV (18:37)
--- NOTE | 2025-04-04 20:11 | PD.RESEVENT ---
Documentation for date of: 04/04/25 Event Note Event Note: Rapid response was called at 20:04 for tachycardia. Vital signs: Afebrile, BP 146/95, RR 30, 100% spO2 on AC/VC RR 25, PEEP 5, FiO2 40, Ppeak 47.6, Pplat 33.8. Blood glucose 159. Given Valium 2.5 mg PO IV x1. Magnesium sulfate 2 gm IV x1. Ordered CBC, CMP, lactic, VBG, CXR. Changed vent settings to SMV, RR 12, PEEP 5, PS 16, FiO2 40. Plan discussed with Dr. Dumont, Dr. Avila, and Dr. Feliciano. Steffi Harrell MD PGY1
--- NOTE | 2025-04-04 20:13 | XR_ITS ---
Examination: AP chest single view Technique one AP portable upright chest single view Date and time: April 04, 2025, 2019 hrs., Comparison April 04, [id number] hrs. Indications: Rule out mucous plug, congestion today. Findings: Pneumonia right base obscuring detail right hemidiaphragm The film is rotated RPO with the tracheal tube projecting over the right lung Normal heart size Mild vascular congestion Prominent osteopenia Impression: Right base pneumonia
[2025-04-04] MEDS: DIAZEPAM INJ 5 MG/ML VIAL 2 ML 2.5 MG IVP ×2 (20:19→23:26)
[2025-04-04] MEDS: Magnesium Sulfate 2 GM Ivpb 2 GM/50 ML BAG IV (20:20)
[2025-04-04] MEDS: FLUDROCORTISONE ACETATE 0.1 MG TABLET GT (20:27)
[2025-04-04] MEDS: LOSARTAN POTASSIUM 25 MG TABLET 100 MG GT (20:27)
[2025-04-04 20:33] LABS: Basophils # (Auto) 0.0 Thou/mm3 (0.0-0.2); Basophils % (Auto) 0 % (0-2.5); Eosinophils # (Auto) 0.1 Thou/mm3 (0.0-0.5); Eosinophils % (Auto) 1 % (0-10); Hematocrit 31.2 % (36.0-46.0); Hemoglobin 9.4 g/dL (12.0-16.0); Immature Granulocytes Auto 0.05 Thou/mm3 (0.00-0.00); Lactate (Lactic Acid) 1.1 mMol/L (0.4-2.0); Lymphocytes # (Auto) 0.9 Thou/mm3 (1.0-4.8); Lymphocytes % (Auto) 8 % (10-50); Mean Corpuscular HGB Conc 30.1 g/dl (31.0-37.0); Mean Corpuscular Hemoglobin 26.8 pg (25.0-35.0); Mean Corpuscular Volume 89 fL (80-100); Monocytes # (Auto) 0.9 Thou/mm3 (0.0-0.8); Monocytes % (Auto) 8 % (0-12); Neutrophils # (Auto) 9.6 Thou/mm3 (1.8-7.7); Neutrophils % (Auto) 83 % (37-80); Nucleated Red Blood Cell # 0.00 Thou/mm3 (0.00-0.00); Nucleated Red Blood Cell % 0 /100 WBC (0); Platelet Count 86 Thou/mm3 (140-440); RDW Standard Deviation 54.9 fL (36.4-46.3); Red Blood Count 3.51 Miln/mm3 (4.00-5.20); White Blood Count 11.5 Thou/mm3 (3.6-11.0)
[2025-04-04 20:34] LABS: Base Excess, Venous 4 (-3-3); O2 Saturation, Venous 100 % (96-97); PCO2, Venous 43 mmHg (36-56); PO2, Venous 123 mmHg (15-58); pH, Venous 7.43 (7.33-7.66)
[2025-04-04 20:55] LABS: Alanine Aminotransferase 25 U/L (10-49); Albumin, Serum 4.1 gm/dL (3.4-4.8); Albumin/Globulin Ratio 1.2 (1.2-2.2); Alkaline Phosphatase 183 U/L (46-116); Anion Gap 10 (7-16); Aspartate Amino Transferase 37 U/L (0-34); BUN/Creatinine Ratio 14 Ratio (12-20); Bilirubin,Total 0.2 mg/dL (0.3-1.2); Blood Urea Nitrogen 7 mg/dL (9-23); Calcium 9.1 mg/dL (8.3-10.6); Calcium (Corrected) 9.1 mg/dL (8.5-10.1); Carbon Dioxide 23.6 mMol/L (20.0-31.0); Chloride 101 mMol/L (98-107); Creatinine (Component) 0.5 mg/dL (0.6-1.3); Estimated Creatinine Clearance 94.3 mL/min (>60); Globulin 3.5 gm/dL (2.3-3.5); Glucose 138 mg/dL (74-106); Osmolality,Calculated 270 (275-295); Potassium 5.2 mMol/L (3.4-5.1); Sodium 135 mMol/L (136-145); Total Protein 7.6 gm/dL (5.7-8.2); eGFR > 60 See Note
--- NOTE | 2025-04-04 21:19 | PC.RT ---
Responded to rapid pt RR 40s, DR. Tim Cline at bedside assessing pt, vent settings change to ps 15/5 fio2 40% RR not improving at 20:28 vent settings were changed to AC SIMV 450, RR12, 5+ ps 16, fio2 40% RR in the 40s labored, abd breathing, Per DR. cline okay with settings post pt given meds RR improved to 20s RR23, vt 430, ve 11.3 1:2.8 pip 18, mean 10 pt tolerating settings.
[2025-04-05] VITALS (16 sets, daily range): BP systolic 86–116; BP diastolic 57–69; PULSE 65–131; RESP 13–29; TEMP 35.8–36.1; O2SAT 98–100
--- NOTE | 2025-04-05 01:28 | PC.RT ---
Pt placed on PS per dr dumont. pt bucking vent and r/r 45 and climbing. pt placed on PS and r/r dropped to 18/20 and HR also decreased. Pt shu mode well. RT will cont to monitor pt t/o the rest of the night and make vent changes as tolerated and ok'd by Dr Dumont. RN Hope aware of changes.
[2025-04-05] MEDS: ALBUTEROL/IPRATROPIUM (Duoneb) RT SOL 3 ML NEBU INH ×7 (02:41→23:41)
[2025-04-05] MEDS: ACETYLCYSTEINE RT SOL 10% 4 ML NEBU 3 ML INH ×4 (02:41→23:40)
[2025-04-05 05:50] LABS: Basophils # (Auto) 0.0 Thou/mm3 (0.0-0.2); Basophils % (Auto) 0 % (0-2.5); Eosinophils # (Auto) 0.1 Thou/mm3 (0.0-0.5); Eosinophils % (Auto) 1 % (0-10); Hematocrit 28.1 % (36.0-46.0); Immature Granulocytes Auto 0.04 Thou/mm3 (0.00-0.00); Lymphocytes # (Auto) 1.3 Thou/mm3 (1.0-4.8); Lymphocytes % (Auto) 12 % (10-50); Mean Corpuscular HGB Conc 30.6 g/dl (31.0-37.0); Mean Corpuscular Hemoglobin 26.8 pg (25.0-35.0); Mean Corpuscular Volume 88 fL (80-100); Monocytes # (Auto) 0.9 Thou/mm3 (0.0-0.8); Monocytes % (Auto) 8 % (0-12); Neutrophils # (Auto) 9.1 Thou/mm3 (1.8-7.7); Neutrophils % (Auto) 80 % (37-80); Nucleated Red Blood Cell # 0.00 Thou/mm3 (0.00-0.00); Nucleated Red Blood Cell % 0 /100 WBC (0); Platelet Count 176 Thou/mm3 (140-440); RDW Standard Deviation 54.3 fL (36.4-46.3); Red Blood Count 3.21 Miln/mm3 (4.00-5.20); White Blood Count 11.4 Thou/mm3 (3.6-11.0)
[2025-04-05 05:51] LABS: Hemoglobin 8.6 g/dL (12.0-16.0)
[2025-04-05 06:04] LABS: Anion Gap 6 (7-16); BUN/Creatinine Ratio 22 Ratio (12-20); Blood Urea Nitrogen 11 mg/dL (9-23); Calcium 8.7 mg/dL (8.3-10.6); Carbon Dioxide 29.7 mMol/L (20.0-31.0); Chloride 101 mMol/L (98-107); Creatinine (Component) 0.5 mg/dL (0.6-1.3); Estimated Creatinine Clearance 94.3 mL/min (>60); Glucose 98 mg/dL (74-106); Osmolality,Calculated 273 (275-295); Potassium 4.6 mMol/L (3.4-5.1); Sodium 137 mMol/L (136-145); eGFR > 60 See Note
[2025-04-05] MEDS: GABAPENTIN 300 MG CAPSULE PO ×3 (06:17→21:38)
[2025-04-05] MEDS: CEFEPIME INJ 2 GM in SODIUM CHLORIDE 0.9% (Popper) 50 ML IV (06:17)
[2025-04-05] MEDS: SODIUM CHLORIDE 0.9% 500 ML 500 ML 999 ML IV (08:11)
[2025-04-05] MEDS: LANSOPRAZOLE 30 MG TAB.RAP.DR GT (08:12)
[2025-04-05] MEDS: MULTIVITAMIN 15 ML UDC GT (08:12)
[2025-04-05] MEDS: HEPARIN SOD INJ 5000 UNIT/ML VIAL SC ×2 (08:12→21:38)
[2025-04-05] MEDS: VANCOMYCIN/D5W 1,250 MG IVPB 250 ML 120 MG IV ×2 (09:16→21:38)
[2025-04-05] MEDS: PIPER/TAZO 3.375 GM PREMIX 3.375 GM/50 ML BAG IV ×3 (10:38→21:38)
[2025-04-05] MEDS: POLYETHYLENE GLYCOL 17 GM PACKET GT (10:39)
--- NOTE | 2025-04-05 12:15 | EVENTNT_ITS ---
Documentation for date of: 04/05/25 Event Note Event Note: A Goals of Care discussion was held with the patient's daughter at 2 PM in Room 264. The daughter expressed understanding of the patient's complex medical history, including the tracheostomy, PEG, and G-tube, and the resulting high risk for recurrent aspiration and severe pneumonia. The daughter was informed about the patient's increased clinical instability, specifically noting two Rapid Response Team calls in the last 24 hours. When asked about preferences for future deterioration, she explicitly stated that the patient is not to receive ICU-level care and that she would decline intubation. She voiced agreement with the medical team's current plan and confirmed she will defer to the team's judgment regarding all subsequent management decisions. She will speak with Dr. Gonsalez[facility] about the patient's care. Case discussed with my attending Dr. Rey, and senior resident, Dr. Orion Ruby MD PGY-1
--- NOTE | 2025-04-05 12:15 | ESPR_ITS ---
<Statement entered by Patsy Sears MD - 04/05/25 16:01> Rapid Response was called overnight due to the patient being tachypneic, agitated, and breathing over the ventilator. Vent settings were adjusted. Repeat chest X-ray showed right lower lobe pneumonia. Antibiotics were broadened to Zosyn. Blood culture grew GPC in 1 of 2 bottles. Vancomycin was added. Repeat blood cultures have been sent. Losartan was held due to low blood pressure. Patient received 500 mL normal saline bolus. Continue Zosyn and vancomycin. Goals of Care: Team Spoke with patient?s daughter regarding poor prognosis. She does not want ICU care or aggressive treatment, but wants to continue pneumonia treatment, chest physiotherapy, and breathing treatments. Plan: Continue current treatment Follow up blood cultures Respect goals of care I discussed with and supervised the improvement intern physician who took care of this patient. I personally saw and examined the patient and discussed the assessment and plan with the entire medicine team, including my attending , I agree with the assessment and plan as documented below Patsy Sears M.D. PGY-3 Disclaimer: Despite multiple revisions, due to the dictation software being used, the document bellow may not be free of grammatical errors including phonetic/typographic errors. However, this does not deter from our commitment to providing health care in the patient's best interest in mind. Documentation for date of: 04/05/25 Subjective Subjective Interval history: Patient seen at bedside. Patient had 2 rapid response calls in past 24hrs, see relevant event notes. Goals of care discussion was had with family today regarding patient's poor prognosis and daughter mention they would not like would not want ICU level care but wants to continue with pneumonia treatment chest physiotherapy and breathing treatment. Exam Vital Signs Temp Pulse Resp BP Pulse Ox O2 Del Method FiO2 96.8 F 71 13 98/69 100 Mechanical Ventilation 35 04/05/25 08:00 04/05/25 10:40 04/05/25 10:40 04/05/25 08:00 04/05/25 10:40 04/05/25 08:00 04/05/25 10:40 Narrative Exam General: Not in acute distress. Non-interactive. On mechanical vent. Skin: Warm, dry, intact. Head: Normocephalic, atraumatic. Eye: Normal conjunctiva, PERRL. CVS: Regular rate and rhythm, no murmur, +S1/S2. RESP: Decreased air entry bilat. No crackles, no wheezing. GI: Soft, nontender, non-distended. No guarding or rebound tenderness. GT in place. Extremities: No edema, no cyanosis, no clubbing. Toes contractured bilaterally. Neuro: Non-verbal, minimal movement of upper extremities, no movement lower extremities. No overt cerebellar signs/incoordination. Objective Labs 04/05/25 05:35 04/05/25 05:35 Labs: Laboratory Results - last 24 hr 04/04/25 04/04/25 04/04/25 16:15 16:45 20:20 WBC 11.5 H D RBC 3.51 L Hgb 9.4 L Hct 31.2 L MCV 89 MCH 26.8 MCHC 30.1 L RDW Std Deviation 54.9 H Plt Count 86 L D Neut % (Auto) 83 H Lymph % (Auto) 8 L [place] % (Auto) 8 Eos % (Auto) 1 Baso % (Auto) 0 Neut # (Auto) 9.6 H Lymph # (Auto) 0.9 L [place] # (Auto) 0.9 H Eos # (Auto) 0.1 Baso # (Auto) 0.0 Immature Gran # (Auto) 0.05 H Absolute Nucleated RBC 0.00 Immature Gran % 0 Nucleated RBC % 0 VBG pH 7.43 VBG pCO2 43 VBG pO2 123 H VBG O2 Sat ([place]) 100 H VBG Base Excess 4 H Sodium 139 135 L Potassium 4.8 5.2 H Chloride 102 101 Carbon Dioxide 30.2 23.6 Anion Gap 7 10 BUN 12 7 L Creatinine 0.5 L 0.5 L Estim Creat Clear Calc 94.3 94.3 eGFR > 60 > 60 BUN/Creatinine Ratio 24 H 14 Glucose 137 H 138 H Calculated Osmolality 279 270 L Lactic Acid 1.5 1.1 Calcium 8.6 9.1 Corrected Calcium 8.9 9.1 Total Bilirubin 0.2 L 0.2 L AST 28 37 H ALT 23 25 Alkaline Phosphatase 164 H D 183 H Total Protein 6.7 7.6 Albumin 3.6 D 4.1 D Globulin 3.1 3.5 Albumin/Globulin Ratio 1.2 1.2 04/05/25 05:35 WBC 11.4 H RBC 3.21 L Hgb 8.6 L Hct 28.1 L MCV 88 MCH 26.8 MCHC 30.6 L RDW Std Deviation 54.3 H Plt Count 176 D Neut % (Auto) 80 Lymph % (Auto) 12 [place] % (Auto) 8 Eos % (Auto) 1 Baso % (Auto) 0 Neut # (Auto) 9.1 H Lymph # (Auto) 1.3 [place] # (Auto) 0.9 H Eos # (Auto) 0.1 Baso # (Auto) 0.0 Immature Gran # (Auto) 0.04 H Absolute Nucleated RBC 0.00 Immature Gran % 0 Nucleated RBC % 0 VBG pH VBG pCO2 VBG pO2 VBG O2 Sat ([place]) VBG Base Excess Sodium 137 Potassium 4.6 D Chloride 101 Carbon Dioxide 29.7 Anion Gap 6 L BUN 11 Creatinine 0.5 L Estim Creat Clear Calc 94.3 eGFR > 60 BUN/Creatinine Ratio 22 H Glucose 98 Calculated Osmolality 273 L Lactic Acid Calcium 8.7 Corrected Calcium Total Bilirubin AST ALT Alkaline Phosphatase Total Protein Albumin Globulin Albumin/Globulin Ratio ABG Interpretation ABG results: 04/02/25 04/02/25 04/03/25 08:05 11:57 10:12 ABG pH 7.10 L* 7.33 L D 7.34 L ABG pCO2 100 H* 54 H D 56 H ABG pO2 84 182 H D 172 H ABG HCO3 31 H 29 H 30 H ABG O2 Saturation 92 101 H 100 H ABG Base Excess -1 2 4 H VBG pH VBG pCO2 VBG pO2 VBG Base Excess 04/04/25 20:20 ABG pH ABG pCO2 ABG pO2 ABG HCO3 ABG O2 Saturation ABG Base Excess VBG pH 7.43 VBG pCO2 43 VBG pO2 123 H VBG Base Excess 4 H Quality Measures Quality Measures VTE prophylaxis Advance care planning discussed with:: patient Assessment & Plan Assessment Current Active Medications: Generic Name Dose Route Start Last Admin Trade Name Freq PRN Reason Stop Dose Admin Acetaminophen 650 mg 04/02/25 15:55 04/04/25 23:45 Acetaminophen 325 Mg Tablet NG 05/02/25 15:54 650 mg Q6HR PRN Administration Pain 1-3 and/or Fever >100.1 Acetylcysteine 3 ml 04/05/25 15:00 Acetylcysteine Rt Day 10% 4 Ml Nebu INH 05/05/25 14:59 Q8HRRT POLLO Albuterol/Ipratropium 3 ml 04/03/25 15:00 04/05/25 10:39 Albuterol/Ipratropium (Duoneb) Rt Day 3 Ml Nebu INH 05/03/25 14:59 3 ml Q4HRRT POLLO Administration Albuterol/Ipratropium 3 ml 04/05/25 01:12 Albuterol/Ipratropium (Duoneb) Rt Day 3 Ml Nebu INH 05/05/25 01:11 Q2HR PRN SHORTNESS OF BREATH OR WHEEZE Diazepam 5 mg 04/02/25 16:12 04/03/25 22:03 Diazepam Inj 5 Mg/Ml Vial 2 Ml IV 04/07/25 16:11 5 mg PRN PRN Administration Seizure Activity Fludrocortisone Acetate 0.1 mg 04/02/25 21:00 04/04/25 20:27 Fludrocortisone Acetate 0.1 Mg Tablet GT 05/02/25 20:59 0.1 mg 2100 POLLO Administration Gabapentin 300 mg 04/03/25 10:00 04/05/25 06:17 Gabapentin 300 Mg Capsule PO 05/03/25 09:59 300 mg TID POLLO Administration Heparin Sodium (Porcine) 5,000 unit 04/02/25 21:00 04/05/25 08:12 Heparin Sod Inj 5000 Unit/Ml Vial SC 04/16/25 20:59 5,000 unit Q12HR POLLO Administration Vancomycin HCl/Dextrose 250 mls @ 120 mls/hr 04/05/25 10:00 04/05/25 09:16 Vancomycin/D5w 1,250 Mg Ivpb IV 04/12/25 09:59 120 mls/hr Q12H POLLO Administration Protocol Piperacillin/Tazobactam/Dextrose 3.375 gm in 50 mls @ 12.5 mls/hr 04/05/25 14:00 Zosyn IV 04/12/25 13:59 Q8HR POLLO Protocol Lansoprazole 30 mg 04/03/25 09:00 04/05/25 08:12 Lansoprazole 30 Mg Tab.Rap.Dr [place] 05/03/25 08:59 30 mg DAILY POLLO Administration Losartan Potassium 100 mg 04/02/25 21:00 04/04/25 20:27 Losartan Potassium 25 Mg Tablet GT 05/02/25 20:59 100 mg On Hold: 04/05/25 07:34 HS POLLO Administration Magnesium Hydroxide 30 ml 04/05/25 09:37 Milk Of Magnesia Susp 30 Ml Udc GT 05/05/25 09:36 PRN PRN NO BOWEL MOVEMENT Protocol Multivitamins/Minerals 15 ml 04/03/25 09:00 04/05/25 08:12 Multivitamin 15 Ml Udc GT 05/03/25 08:59 15 ml QDAY POLLO Administration Ondansetron HCl 4 mg 04/02/25 15:54 Ondansetron Inj 2 Mg/Ml Inj 2 Ml IVP 05/02/25 15:53 Q6HR PRN NAUSEA OR VOMITING Protocol Pharmacy Consult 1 each 04/04/25 17:30 Vancomycin Pharmacy To Dose 1 Each Each IV 05/04/25 17:29 QDAY PRN PROTOCOL Quetiapine Fumarate 25 mg 04/05/25 09:00 04/05/25 08:12 Quetiapine Fumarate 25 Mg Tablet GT 05/05/25 08:59 25 mg QDAY POLLO Administration Sennosides 1 tab 04/02/25 21:00 04/04/25 20:28 Senna Tablet GT 05/02/25 20:59 1 tab HS POLLO Administration Protocol Plan 69-year-old female with PHx of chronic respiratory failure with tracheotomy and PEG and G-tube, ICH, TBI, essential hypertension, seizure disorder, GERD, chronic hyponatremia who presented to the ED from subacute with reports of respiratory distress noted this morning. All reports were from nursing staff and subacute as well as from ED staff as the patient not able to verbalize. Patient admitted due to acute hypoxic hypercapnic respiratory failure secondary to ongoing VAP and hypertensive urgency. #Acute hypoxic hypercapnic respiratory failure 2/2 to VAP #PE ruled out ABG 04/03 showed pH 7.34, pCO2 56, pO2 172 on FiO2 40 Patient likely has mucous plug that might explain the elevated pCO2, as no hx of COPD Patient has ventilator assoc pneumonia which she was discharged with on cefepime course on 04/01 Repeat chest x-ray 04/04 shows right base pneumonia (from prev L base pneumonia) WBC elevated to 11.4 Blood cultures 04/02 show 1/2 GPC bacteremia, pending speciation Plan ? Abx switched to Vancomycin and Zosyn ? Acetylcysteine 10% solution every 4 hours to thin mucus in the lungs ? Patient continues to be on mechanical ventilation, RT following ? Nursing to continue doing suctioning ? Chest physiotherapy to aid with mucus clearance #Agitation May be related to underlying uncontrolled pain, anxiety Plan ? Started on gabapentin 300 mg 3 times daily ?Started on Seroquel 25 mg daily #Hypertensive urgency, resolved #History of essential hypertension Patient presented with blood pressure of 200/112. Patient has history of hypertension, losartan home dose 100 mg daily via G-tube Patient received labetalol 20 mg IV x 1 in ED and BP improved Plan ? Blood pressure low today so holding home losartan #History of ICH, leading to TBI #Chronic respiratory failure s/p trach Patient has a history of intracerebral hemorrhage back in 2012, which led to a fall, resulting in a traumatic brain injury. The traumatic brain injury resulted in chronic respiratory failure, requiring the patient to be status post tracheostomy tube. Patient is managed in subacute since. Plan: Continue to monitor Continue mechanical ventilation, transition to blow-by as tolerated #History of seizure disorder, unspecified Patient is noted to have a history of seizure disorder per chart review. Patient has been prescribed breakthrough seizure medication, however does not seem to be on any sort of antiseizure medication. Plan: - Patient to follow up with outpatient neurology - Diazepam 5 mg IV as needed #GERD, on PPI Patient is noted to have a history of GERD and takes esomeprazole in subacute. Plan: - Lansoprazole 30 mg GT daily Health Maintenance: Diet: Jevity 1.5 GI prophylaxis: Lansoprazole 30 mg GT DVT prophylaxis: Heparin 5000 units every 12 hours Antibiotics: Cefepime CODE STATUS: FULL Disposition: TELE Case discussed with my attending Dr. Rey, and senior resident, Dr. Lanny Ruby MD PGY-1 Attending Provider Attestation/Addendum I attest that I was physically present for the evaluation, physical examination, lab and imaging review of the patient with the residents. I discussed the case with the residents and agree with the findings and plans of care as documented above. Patient seen and examined at bedside she had a rapid called overnight due to agitation, tachycardia. Received multiple doses of benzodiazepines. Also noted to have uptrending WBC. With worsening tachycardia, tachypnea and WBC count along with new right base pneumonia on chest x-ray, suspicion for new hospital- acquired pneumonia, possible aspiration event. Also grew GPC on blood culture. We will broaden her antibiotics with IV vancomycin and Zosyn. Obtain new blood culture and continue to monitor closely. Stevan Rey MD
--- NOTE | 2025-04-05 13:51 | PC.SS ---
SS follow up note: Patient will discharge back to [facility]Subacute.
[2025-04-05] MEDS: FLUDROCORTISONE ACETATE 0.1 MG TABLET GT (21:38)
[2025-04-05] MEDS: DIAZEPAM INJ 5 MG/ML VIAL 2 ML IV (22:49)
[2025-04-06] VITALS (15 sets, daily range): BP systolic 94–171; BP diastolic 62–89; PULSE 66–120; RESP 17–32; TEMP 35.9–36.1; O2SAT 95–100; BMI 21.7
--- NOTE | 2025-04-06 00:26 | XR_ITS ---
Examination: AP chest single view Technique one AP portable semiupright chest single view Date and time: April 06, 2025, 0044 hrs., Comparison April 04, 2025 Indications: Respiratory distress today. Findings: Significant bibasilar pneumonia with moderate to large bilateral pleural effusions Mild enlargement left ventricle with prominent vascular congestion Tracheostomy tube tip 20 mm above cele Impression: Significant bibasilar pneumonia Mild heart failure
[2025-04-06 00:50] LABS: Base Excess 0 (-3-3); HCO3 31 mEq/L (20-26); O2 Saturation 99 % (91-98); PCO2 90 mmHg (32.0-48.0); PO2 144 mmHg (83-108)
[2025-04-06 00:53] LABS: Allen Test Not Performed; Inspired Oxygen, FIO2 50 %; Puncture Site Left Radial; pH, Arterial 7.14 (7.35-7.45)
[2025-04-06] MEDS: ACETAMINOPHEN 325 MG TABLET 650 MG NG (01:14)
[2025-04-06] MEDS: ALBUTEROL/IPRATROPIUM (Duoneb) RT SOL 3 ML NEBU INH ×7 (02:42→22:55)
[2025-04-06 02:53] LABS: Base Excess 2 (-3-3); HCO3 30 mEq/L (20-26); Inspired Oxygen, FIO2 50 %; O2 Saturation 101 % (91-98); PCO2 65 mmHg (32.0-48.0); PO2 392 mmHg (83-108); pH, Arterial 7.27 (7.35-7.45)
[2025-04-06 02:54] LABS: Allen Test Performed/OK; Puncture Site Left Radial
[2025-04-06] MEDS: DIAZEPAM INJ 5 MG/ML VIAL 2 ML IVP (03:45)
--- NOTE | 2025-04-06 04:05 | XR_ITS ---
Examination: Abdomen AP single view Technique: AP portable supine abdomen, single view Exam date and time: April 06, 2025, 0501 hrs. Indications: Constipation this week. Findings: Moderate to large amounts of stool throughout the colon. No obstruction Tube overlies the gastric contour No free air Severe osteopenia Heavy soft tissue vascular calcification Impression: Moderate to large amounts of stool throughout the colon
[2025-04-06] MEDS: PIPER/TAZO 3.375 GM PREMIX 3.375 GM/50 ML BAG IV ×3 (05:01→22:12)
[2025-04-06] MEDS: GABAPENTIN 300 MG CAPSULE PO ×3 (05:01→22:12)
[2025-04-06 05:42] LABS: Basophils # (Auto) 0.0 Thou/mm3 (0.0-0.2); Basophils % (Auto) 0 % (0-2.5); Eosinophils # (Auto) 0.0 Thou/mm3 (0.0-0.5); Eosinophils % (Auto) 0 % (0-10); Hematocrit 26.1 % (36.0-46.0); Immature Granulocytes Auto 0.04 Thou/mm3 (0.00-0.00); Lymphocytes # (Auto) 0.6 Thou/mm3 (1.0-4.8); Lymphocytes % (Auto) 7 % (10-50); Mean Corpuscular HGB Conc 31.0 g/dl (31.0-37.0); Mean Corpuscular Hemoglobin 27.1 pg (25.0-35.0); Mean Corpuscular Volume 87 fL (80-100); Monocytes # (Auto) 0.6 Thou/mm3 (0.0-0.8); Monocytes % (Auto) 7 % (0-12); Neutrophils # (Auto) 7.0 Thou/mm3 (1.8-7.7); Neutrophils % (Auto) 85 % (37-80); Nucleated Red Blood Cell # 0.00 Thou/mm3 (0.00-0.00); Nucleated Red Blood Cell % 0 /100 WBC (0); Platelet Count 206 Thou/mm3 (140-440); RDW Standard Deviation 52.8 fL (36.4-46.3); Red Blood Count 2.99 Miln/mm3 (4.00-5.20); White Blood Count 8.2 Thou/mm3 (3.6-11.0)
[2025-04-06 06:08] LABS: Hemoglobin 8.1 g/dL (12.0-16.0)
[2025-04-06 06:23] LABS: Alanine Aminotransferase 18 U/L (10-49); Albumin, Serum 3.3 gm/dL (3.4-4.8); Albumin/Globulin Ratio 1.1 (1.2-2.2); Alkaline Phosphatase 155 U/L (46-116); Anion Gap 7 (7-16); Aspartate Amino Transferase 22 U/L (0-34); BUN/Creatinine Ratio 16 Ratio (12-20); Bilirubin,Total 0.2 mg/dL (0.3-1.2); Blood Urea Nitrogen 8 mg/dL (9-23); Calcium 8.6 mg/dL (8.3-10.6); Calcium (Corrected) 9.2 mg/dL (8.5-10.1); Carbon Dioxide 29.5 mMol/L (20.0-31.0); Chloride 99 mMol/L (98-107); Creatinine (Component) 0.5 mg/dL (0.6-1.3); Estimated Creatinine Clearance 94.3 mL/min (>60); Globulin 3.0 gm/dL (2.3-3.5); Glucose 152 mg/dL (74-106); Osmolality,Calculated 271 (275-295); Potassium 4.6 mMol/L (3.4-5.1); Sodium 135 mMol/L (136-145); Total Protein 6.3 gm/dL (5.7-8.2); eGFR > 60 See Note
[2025-04-06] MEDS: ACETYLCYSTEINE RT SOL 10% 4 ML NEBU 3 ML INH ×3 (08:46→22:55)
--- NOTE | 2025-04-06 09:12 | PC.SS ---
Follow up note: On IV antibiotic. Still treating pneumonia. Pt will return to [facility] upon dc.
[2025-04-06] MEDS: LANSOPRAZOLE 30 MG TAB.RAP.DR GT (09:24)
[2025-04-06] MEDS: MULTIVITAMIN 15 ML UDC GT (09:24)
[2025-04-06] MEDS: HEPARIN SOD INJ 5000 UNIT/ML VIAL SC ×2 (09:24→20:33)
--- NOTE | 2025-04-06 09:36 | XR_ITS ---
Examination: CT chest, without intravenous contrast. Sagittal and coronal 2-D reconstructions. Exam date and time: April 06, 2025, 1449 hours, comparison April 02, 2025 INDICATIONS: Worsening respiratory distress arrhythmia today CTDI:vol (mGy) 18.8 DLP: (mGycm) 552 Technique: Multiple 3.0 mm axial sections of the chest to been obtained. Bone and lung density settings are obtained. Sagittal and coronal 2-D reconstructions have been obtained. Low dose protocols were performed. One or more of the following dose reduction techniques were used; automated exposure control, adjustment of the mA and/or KV according to patient size, use of iterative reconstruction technique. Findings: Tracheostomy tube tip 4 cm above cele Thoracic aortic calcification no aneurysmal dilatation Pulmonary artery segments are not enlarged. Mild enlargement left ventricle left atrium Prominent pneumonia right lower lobe No visualized liver or splenic lesion Tiny 1 to 2 mm bilateral renal calculi IMPRESSION: Prominent right lower lobe pneumonia
[2025-04-06 09:54] LABS: Vancomycin,Trough 24.2 mcg/mL (5.0-10.0)
[2025-04-06 10:17] LABS: Base Excess 5 (-3-3); HCO3 32 mEq/L (20-26); Inspired Oxygen, FIO2 70 %; O2 Saturation 101 % (91-98); PCO2 67 mmHg (32.0-48.0); PO2 317 mmHg (83-108); pH, Arterial 7.29 (7.35-7.45)
[2025-04-06 10:19] LABS: Allen Test Performed/OK; Puncture Site Right Radial
--- NOTE | 2025-04-06 10:46 | PD.RESHP ---
Documentation for date of: 04/06/25 HPI History of Present Illness History of present illness: General [facility] GI Exam Vital Signs Temp Pulse Resp BP Pulse Ox O2 Del Method FiO2 96.6 F L 66 30 H 116/68 95 Mechanical Ventilation 70 04/06/25 08:00 04/06/25 08:47 04/06/25 08:47 04/06/25 08:00 04/06/25 08:47 04/06/25 08:00 04/06/25 08:47 Results: Labs 04/06/25 05:22 04/06/25 05:22 Labs: Short CBC 04/06/25 Range/Units 05:22 WBC 8.2 (3.6-11.0) Thou/mm3 Hgb 8.1 L (12.0-16.0) g/dL Hct 26.1 L (36.0-46.0) % Plt Count 206 D (140-440) Thou/mm3 BMP 04/06/25 05:22 Sodium 135 L Potassium 4.6 Chloride 99 Carbon Dioxide 29.5 BUN 8 L Creatinine 0.5 L Glucose 152 H D Calcium 8.6 Liver Function 04/06/25 Range/Units 05:22 Total Bilirubin 0.2 L (0.3-1.2) mg/dL AST 22 (0-34) U/L ALT 18 (10-49) U/L Alkaline Phosphatase 155 H D (46-116) U/L Albumin 3.3 L D (3.4-4.8) gm/dL ABG Interpretation ABG results: 04/02/25 04/02/25 04/03/25 08:05 11:57 10:12 ABG pH 7.10 L* 7.33 L D 7.34 L ABG pCO2 100 H* 54 H D 56 H ABG pO2 84 182 H D 172 H ABG HCO3 31 H 29 H 30 H ABG O2 Saturation 92 101 H 100 H ABG Base Excess -1 2 4 H VBG pH VBG pCO2 VBG pO2 VBG Base Excess 04/04/25 04/06/25 04/06/25 20:20 00:44 02:47 ABG pH 7.14 L* D 7.27 L D ABG pCO2 90 H* D 65 H D ABG pO2 144 H D 392 H D ABG HCO3 31 H 30 H ABG O2 Saturation 99 H 101 H ABG Base Excess 0 2 VBG pH 7.43 VBG pCO2 43 VBG pO2 123 H VBG Base Excess 4 H 04/06/25 10:05 ABG pH 7.29 L ABG pCO2 67 H ABG pO2 317 H D ABG HCO3 32 H ABG O2 Saturation 101 H ABG Base Excess 5 H VBG pH VBG pCO2 VBG pO2 VBG Base Excess Quality Measures Quality Measures VTE prophylaxis Medications Home Medications and Allergies Home Medications ?Medication ?Instructions ?Recorded ?Confirmed ?Type cefepime 1 gram solution for 2 g IV Q8HR for Pneumonia 04/03/25 04/02/25 History injection Allergies Allergy/AdvReac Type Severity Reaction Status Date / Time No Known Allergies Allergy Verified 03/27/25 13:04 Visit Medications Acetaminophen (Acetaminophen 325 Mg Tablet) 650 mg NG Q6HR PRN PRN Reason: Pain 1-3 and/or Fever >100.1 Stop: 05/02/25 15:54 Last Admin: 04/06/25 01:14 Dose: 650 mg Acetylcysteine (Acetylcysteine Rt Day 10% 4 Ml Nebu) 3 ml INH Q8HRRT [facility] Stop: 05/05/25 14:59 Last Admin: 04/06/25 08:46 Dose: 3 ml Albuterol/Ipratropium (Albuterol/Ipratropium (Duoneb) Rt Day 3 Ml Nebu) 3 ml INH Q4HRRT [facility] Stop: 05/03/25 14:59 Last Admin: 04/06/25 06:14 Dose: 3 ml Albuterol/Ipratropium (Albuterol/Ipratropium (Duoneb) Rt Day 3 Ml Nebu) 3 ml INH Q2HR PRN PRN Reason: SHORTNESS OF BREATH OR WHEEZE Stop: 05/05/25 01:11 Last Admin: 04/06/25 08:46 Dose: 3 ml Bisacodyl (Bisacodyl 10 Mg Supp) 10 mg RI PRN PRN; Protocol PRN Reason: No BM Per Bowel Management Protocol Fludrocortisone Acetate (Fludrocortisone Acetate 0.1 Mg Tablet) 0.1 mg GT 2100 [facility] Stop: 05/02/25 20:59 Last Admin: 04/05/25 21:38 Dose: 0.1 mg Gabapentin (Gabapentin 300 Mg Capsule) 300 mg PO TID [facility] Stop: 05/03/25 09:59 Last Admin: 04/06/25 05:01 Dose: 300 mg Heparin Sodium (Porcine) (Heparin Sod Inj 5000 Unit/Ml Vial) 5,000 unit SC Q12HR POLLO Stop: 04/16/25 20:59 Last Admin: 04/06/25 09:24 Dose: 5,000 unit Piperacillin/Tazobactam/Dextrose (Zosyn) 3.375 gm in 50 mls @ 12.5 mls/hr IV Q8HR [facility]; Protocol Stop: 04/12/25 13:59 Last Admin: 04/06/25 05:01 Dose: 12.5 mls/hr Vancomycin/Sodium Chloride (Vancomycin/Ns 1 Gm Ivpb) 200 mls @ 120 mls/hr IV BID@1000,2200 [facility]; Protocol Stop: 04/13/25 21:59 Lansoprazole (Lansoprazole 30 Mg Tab.Rap.Dr) 30 mg GT DAILY [facility] Stop: 05/03/25 08:59 Last Admin: 04/06/25 09:24 Dose: 30 mg Losartan Potassium (Losartan Potassium 25 Mg Tablet) 100 mg GT [facility] On Hold: 04/05/25 07:34 Stop: 05/02/25 20:59 Last Admin: 04/04/25 20:27 Dose: 100 mg Magnesium Hydroxide (Milk Of Magnesia Susp 30 Ml Udc) 30 ml GT PRN PRN; Protocol PRN Reason: NO BOWEL MOVEMENT Stop: 05/05/25 09:36 Multivitamins/Minerals (Multivitamin 15 Ml Udc) 15 ml GT QDAY [facility] Stop: 05/03/25 08:59 Last Admin: 04/06/25 09:24 Dose: 15 ml Ondansetron HCl (Ondansetron Inj 2 Mg/Ml Inj 2 Ml) 4 mg IVP Q6HR PRN; Protocol PRN Reason: NAUSEA OR VOMITING Stop: 05/02/25 15:53 Pharmacy Consult (Vancomycin Pharmacy To Dose 1 Each Each) 1 each IV QDAY PRN PRN Reason: PROTOCOL Stop: 05/04/25 17:29 Quetiapine Fumarate (Quetiapine Fumarate 25 Mg Tablet) 25 mg GT BID [facility] Stop: 05/06/25 20:59 Sennosides (Senna Tablet) 1 tab GT [facility]; Protocol Stop: 05/02/25 20:59 Last Admin: 04/05/25 21:38 Dose: 1 tab Discontinued Medications Acetylcysteine (Acetylcysteine Rt Day 10% 4 Ml Nebu) 3 ml INH Q4HRRT POLLO Stop: 05/03/25 14:59 Last Admin: 04/05/25 06:53 Dose: 3 ml Albuterol (Albuterol Rt 2.5 Mg/3 Ml Nebu) 2.5 mg INH Q6HRRT PRN PRN Reason: Wheezing/SOB Stop: 05/02/25 15:54 Albuterol (Albuterol Rt 2.5 Mg/0.5 Ml Nebu) 2.5 mg INH Q6HRRT PRN PRN Reason: Wheezing/SOB Stop: 05/02/25 15:54 Albuterol/Ipratropium (Albuterol/Ipratropium (Duoneb) Rt Day 3 Ml Nebu) 3 ml INH Q6HRRT PRN PRN Reason: Respiratory Distress Stop: 05/02/25 18:59 Last Admin: 04/02/25 23:00 Dose: 3 ml Diazepam (Diazepam Inj 5 Mg/Ml Vial 2 Ml) 5 mg IV PRN PRN PRN Reason: Seizure Activity Stop: 04/07/25 16:11 Last Admin: 04/03/25 22:03 Dose: 5 mg Diazepam (Diazepam Inj 5 Mg/Ml Vial 2 Ml) 5 mg IV X1 ONE Stop: 04/04/25 17:24 Last Admin: 04/04/25 17:51 Dose: Not Given Diazepam (Diazepam Inj 5 Mg/Ml Vial 2 Ml) 2.5 mg IV X1 ONE Stop: 04/04/25 17:46 Last Admin: 04/04/25 17:56 Dose: 2.5 mg Diazepam (Diazepam Inj 5 Mg/Ml Vial 2 Ml) 2.5 mg IVP X1 ONE Stop: 04/04/25 20:10 Last Admin: 04/04/25 20:19 Dose: 2.5 mg Diazepam (Diazepam Inj 5 Mg/Ml Vial 2 Ml) 2.5 mg IVP X1 ONE Stop: 04/04/25 22:57 Last Admin: 04/04/25 23:26 Dose: 2.5 mg Diazepam (Diazepam Inj 5 Mg/Ml Vial 2 Ml) 5 mg IV PRN PRN PRN Reason: AGITATION Stop: 04/07/25 16:11 Diazepam (Diazepam Inj 5 Mg/Ml Vial 2 Ml) 5 mg IV X1 ONE Stop: 04/05/25 22:31 Last Admin: 04/05/25 22:49 Dose: 5 mg Diazepam (Diazepam Inj 5 Mg/Ml Vial 2 Ml) 5 mg IVP X1 ONE Stop: 04/06/25 03:40 Last Admin: 04/06/25 03:45 Dose: 5 mg Fentanyl Citrate (Fentanyl Cit Inj 50 Mcg/Ml Amp 2ml) 50 mcg IVP X1 ONE Stop: 04/02/25 07:58 Last Admin: 04/02/25 09:15 Dose: 50 mcg Hydromorphone HCl (Hydromorphone Inj 2 Mg/Ml Vial) 0.25 mg IVP X1 ONE Stop: 04/03/25 11:52 Last Admin: 04/03/25 12:41 Dose: 0.25 mg Hydromorphone HCl (Hydromorphone Inj 2 Mg/Ml Vial) 0.25 mg IVP X1 ONE Stop: 04/04/25 14:21 Last Admin: 04/04/25 14:26 Dose: 0.25 mg Lactated Ringer's (Lactated Ringers) 1,000 mls @ 999 mls/hr IV .Q1H1M ONE Stop: 04/02/25 08:47 Last Infusion: 04/02/25 10:00 Dose: Infused Cefepime HCl 2 gm/ Sodium (Chloride) 50 mls @ 100 mls/hr IV Q8HR POLLO Stop: 04/09/25 15:53 Last Admin: 04/05/25 06:17 Dose: 100 mls/hr Sodium Chloride (Ns) 500 mls @ 999 mls/hr IV .Q31M ONE Stop: 04/04/25 16:36 Last Admin: 04/04/25 16:24 Dose: 999 mls/hr Vancomycin HCl/Dextrose (Vancomycin/D5w 1,250 Mg Ivpb) 250 mls @ 120 mls/hr IV X1 ONE Stop: 04/04/25 20:04 Vancomycin HCl/Dextrose (Vancomycin/D5w 1,250 Mg Ivpb) 250 mls @ 120 mls/hr IV Q12H POLLO; Protocol Stop: 04/12/25 09:59 Last Admin: 04/05/25 21:38 Dose: 120 mls/hr Vancomycin HCl (Vancomycin/Water 1250 Mg Ivpb) 250 mls @ 120 mls/hr IV X1 ONE Stop: 04/04/25 20:04 Last Admin: 04/04/25 18:37 Dose: 120 mls/hr Magnesium Sulfate (Magnesium Sulfate Ivpb) 2 gm in 50 mls @ 25 mls/hr IV X1 ONE Stop: 04/04/25 22:09 Last Admin: 04/04/25 20:20 Dose: 25 mls/hr Sodium Chloride (Ns) 500 mls @ 999 mls/hr IV .Q31M ONE Stop: 04/05/25 08:04 Last Admin: 04/05/25 08:11 Dose: 999 mls/hr Piperacillin/Tazobactam/Dextrose (Zosyn) 3.375 gm in 50 mls @ 100 mls/hr IV X1 ONE; Protocol Stop: 04/05/25 10:14 Last Admin: 04/05/25 10:38 Dose: 100 mls/hr Ipratropium [place] (Ipratropium [place] Hfa 12.9 Gm Inh) 3 puff INH Q4HR PRN PRN Reason: SHORTNESS OF BREATH OR WHEEZE Stop: 05/02/25 15:54 Labetalol HCl (Labetalol Inj 5 Mg/Ml Vial 20 Ml) 20 mg IVP X1 ONE Stop: 04/02/25 07:48 Last Admin: 04/02/25 07:56 Dose: 20 mg Midazolam HCl (Midazolam Inj 1 Mg/Ml Vial 2 Ml) 1 mg IVP X1 ONE Stop: 04/02/25 07:58 Last Admin: 04/02/25 09:18 Dose: 1 mg Naloxone HCl (Naloxone Inj 1 Mg/Ml Syringe 2 Ml) 1 mg IV X1 ONE Stop: 04/04/25 16:10 Last Admin: 04/04/25 16:25 Dose: 1 mg Polyethylene Glycol (Polyethylene Glycol 17 Gm Packet) 17 gm GT X1 ONE Stop: 04/05/25 09:38 Last Admin: 04/05/25 10:39 Dose: 17 gm Quetiapine Fumarate (Quetiapine Fumarate 25 Mg Tablet) 25 mg GT QDAY POLLO Stop: 05/05/25 08:59 Last Admin: 04/06/25 09:24 Dose: 25 mg Quetiapine Fumarate (Quetiapine Fumarate 25 Mg Tablet) 25 mg PO X1 ONE Stop: 04/06/25 00:44 Last Admin: 04/06/25 01:14 Dose: 25 mg Sodium Chloride (Sodium Chloride 1 Gm Tablet) 1 gm GT BID POLLO Stop: 05/02/25 20:59
--- NOTE | 2025-04-06 11:50 | PD.RESPRO ---
Documentation for date of: 04/06/25 Subjective Subjective Interval history: Patient seen at bedside. Patient was agitated overnight and fighting the vent per night residents. Seroquel 25mg x1 was given and diazepam 5mg x2 were given and patient settled down. Water enema given and patient had a bowel movement overnight. Exam Vital Signs Temp Pulse Resp BP Pulse Ox O2 Del Method FiO2 96.6 F L 66 30 H 116/68 95 Mechanical Ventilation 70 04/06/25 08:00 04/06/25 08:47 04/06/25 08:47 04/06/25 08:00 04/06/25 08:47 04/06/25 08:00 04/06/25 08:47 Narrative Exam General: Not in acute distress. Non-interactive. On mechanical vent. Skin: Warm, dry, intact. Head: Normocephalic, atraumatic. Eye: Normal conjunctiva, PERRL. CVS: Regular rate and rhythm, no murmur, +S1/S2. RESP: Decreased air entry bilat. No crackles, Wheezing present. GI: Soft, nontender, non-distended. No guarding or rebound tenderness. GT in place. Extremities: No edema, no cyanosis, no clubbing. Toes contractured bilaterally. Neuro: Non-verbal, minimal movement of upper extremities, no movement lower extremities. No overt cerebellar signs/incoordination. Objective Labs 04/06/25 05:22 04/06/25 05:22 Labs: Laboratory Results - last 24 hr 04/06/25 04/06/25 04/06/25 00:44 02:47 05:22 WBC 8.2 RBC 2.99 L Hgb 8.1 L Hct 26.1 L MCV 87 MCH 27.1 MCHC 31.0 RDW Std Deviation 52.8 H Plt Count 206 D Neut % (Auto) 85 H Lymph % (Auto) 7 L [place] % (Auto) 7 Eos % (Auto) 0 Baso % (Auto) 0 Neut # (Auto) 7.0 Lymph # (Auto) 0.6 L [place] # (Auto) 0.6 Eos # (Auto) 0.0 Baso # (Auto) 0.0 Immature Gran # (Auto) 0.04 H Absolute Nucleated RBC 0.00 Immature Gran % 1 H Nucleated RBC % 0 Puncture Site Left Radial Left Radial ABG pH 7.14 L* D 7.27 L D ABG pCO2 90 H* D 65 H D ABG pO2 144 H D 392 H D ABG HCO3 31 H 30 H ABG O2 Saturation 99 H 101 H ABG Base Excess 0 2 FiO2 50 50 Sodium 135 L Potassium 4.6 Chloride 99 Carbon Dioxide 29.5 Anion Gap 7 BUN 8 L Creatinine 0.5 L Estim Creat Clear Calc 94.3 eGFR > 60 BUN/Creatinine Ratio 16 Glucose 152 H D Calculated Osmolality 271 L Calcium 8.6 Corrected Calcium 9.2 Total Bilirubin 0.2 L AST 22 ALT 18 Alkaline Phosphatase 155 H D Total Protein 6.3 Albumin 3.3 L D Globulin 3.0 Albumin/Globulin Ratio 1.1 L Vancomycin Trough 04/06/25 04/06/25 09:18 10:05 WBC RBC Hgb Hct MCV MCH MCHC RDW Std Deviation Plt Count Neut % (Auto) Lymph % (Auto) [place] % (Auto) Eos % (Auto) Baso % (Auto) Neut # (Auto) Lymph # (Auto) [place] # (Auto) Eos # (Auto) Baso # (Auto) Immature Gran # (Auto) Absolute Nucleated RBC Immature Gran % Nucleated RBC % Puncture Site Right Radial ABG pH 7.29 L ABG pCO2 67 H ABG pO2 317 H D ABG HCO3 32 H ABG O2 Saturation 101 H ABG Base Excess 5 H FiO2 70 Sodium Potassium Chloride Carbon Dioxide Anion Gap BUN Creatinine Estim Creat Clear Calc eGFR BUN/Creatinine Ratio Glucose Calculated Osmolality Calcium Corrected Calcium Total Bilirubin AST ALT Alkaline Phosphatase Total Protein Albumin Globulin Albumin/Globulin Ratio Vancomycin Trough 24.2 H* ABG Interpretation ABG results: 04/02/25 04/02/25 04/03/25 08:05 11:57 10:12 ABG pH 7.10 L* 7.33 L D 7.34 L ABG pCO2 100 H* 54 H D 56 H ABG pO2 84 182 H D 172 H ABG HCO3 31 H 29 H 30 H ABG O2 Saturation 92 101 H 100 H ABG Base Excess -1 2 4 H VBG pH VBG pCO2 VBG pO2 VBG Base Excess 04/04/25 04/06/25 04/06/25 20:20 00:44 02:47 ABG pH 7.14 L* D 7.27 L D ABG pCO2 90 H* D 65 H D ABG pO2 144 H D 392 H D ABG HCO3 31 H 30 H ABG O2 Saturation 99 H 101 H ABG Base Excess 0 2 VBG pH 7.43 VBG pCO2 43 VBG pO2 123 H VBG Base Excess 4 H 04/06/25 10:05 ABG pH 7.29 L ABG pCO2 67 H ABG pO2 317 H D ABG HCO3 32 H ABG O2 Saturation 101 H ABG Base Excess 5 H VBG pH VBG pCO2 VBG pO2 VBG Base Excess Quality Measures Quality Measures VTE prophylaxis Advance care planning discussed with:: patient Assessment & Plan Assessment Current Active Medications: Generic Name Dose Route Start Last Admin Trade Name Freq PRN Reason Stop Dose Admin Acetaminophen 650 mg 04/02/25 15:55 04/06/25 01:14 Acetaminophen 325 Mg Tablet NG 05/02/25 15:54 650 mg Q6HR PRN Administration Pain 1-3 and/or Fever >100.1 Acetylcysteine 3 ml 04/05/25 15:00 04/06/25 08:46 Acetylcysteine Rt Day 10% 4 Ml Nebu INH 05/05/25 14:59 3 ml Q8HRRT POLLO Administration Albuterol/Ipratropium 3 ml 04/03/25 15:00 04/06/25 11:45 Albuterol/Ipratropium (Duoneb) Rt Day 3 Ml Nebu INH 05/03/25 14:59 3 ml Q4HRRT POLLO Administration Albuterol/Ipratropium 3 ml 04/05/25 01:12 04/06/25 08:46 Albuterol/Ipratropium (Duoneb) Rt Day 3 Ml Nebu INH 05/05/25 01:11 3 ml Q2HR PRN Administration SHORTNESS OF BREATH OR WHEEZE Bisacodyl 10 mg 04/06/25 09:58 Bisacodyl 10 Mg Supp WI PRN PRN No BM Per Bowel Management Protocol Protocol Fludrocortisone Acetate 0.1 mg 04/02/25 21:00 04/05/25 21:38 Fludrocortisone Acetate 0.1 Mg Tablet GT 05/02/25 20:59 0.1 mg 2100 POLLO Administration Gabapentin 300 mg 04/03/25 10:00 04/06/25 05:01 Gabapentin 300 Mg Capsule PO 05/03/25 09:59 300 mg TID POLLO Administration Heparin Sodium (Porcine) 5,000 unit 04/02/25 21:00 04/06/25 09:24 Heparin Sod Inj 5000 Unit/Ml Vial SC 04/16/25 20:59 5,000 unit Q12HR POLLO Administration Piperacillin/Tazobactam/Dextrose 3.375 gm in 50 mls @ 12.5 mls/hr 04/05/25 14:00 04/06/25 05:01 Zosyn IV 04/12/25 13:59 12.5 mls/hr Q8HR POLLO Administration Protocol Vancomycin/Sodium Chloride 200 mls @ 120 mls/hr 04/06/25 22:00 Vancomycin/Ns 1 Gm Ivpb IV 04/13/25 21:59 BID@1000,2200 POLLO Protocol Lansoprazole 30 mg 04/03/25 09:00 04/06/25 09:24 Lansoprazole 30 Mg Tab GT 05/03/25 08:59 30 mg DAILY POLLO Administration Losartan Potassium 100 mg 04/02/25 21:00 04/04/25 20:27 Losartan Potassium 25 Mg Tablet GT 05/02/25 20:59 100 mg On Hold: 04/05/25 07:34 HS POLLO Administration Magnesium Hydroxide 30 ml 04/05/25 09:37 Milk Of Magnesia Susp 30 Ml Udc GT 05/05/25 09:36 PRN PRN NO BOWEL MOVEMENT Protocol Multivitamins/Minerals 15 ml 04/03/25 09:00 04/06/25 09:24 Multivitamin 15 Ml Udc GT 05/03/25 08:59 15 ml QDAY POLLO Administration Ondansetron HCl 4 mg 04/02/25 15:54 Ondansetron Inj 2 Mg/Ml Inj 2 Ml IVP 05/02/25 15:53 Q6HR PRN NAUSEA OR VOMITING Protocol Pharmacy Consult 1 each 04/04/25 17:30 Vancomycin Pharmacy To Dose 1 Each Each IV 05/04/25 17:29 QDAY PRN PROTOCOL Quetiapine Fumarate 25 mg 04/06/25 21:00 Quetiapine Fumarate 25 Mg Tablet GT 05/06/25 20:59 BID POLLO Sennosides 1 tab 04/02/25 21:00 04/05/25 21:38 Senna Tablet GT 05/02/25 20:59 1 tab HS POLLO Administration Protocol Plan 69-year-old female with PHx of chronic respiratory failure with tracheotomy and PEG and G-tube, ICH, TBI, essential hypertension, seizure disorder, GERD, chronic hyponatremia who presented to the ED from subacute with reports of respiratory distress noted this morning. All reports were from nursing staff and subacute as well as from ED staff as the patient not able to verbalize. Patient admitted due to acute hypoxic hypercapnic respiratory failure secondary to ongoing VAP and hypertensive urgency. #Acute hypoxic hypercapnic respiratory failure 2/2 to VAP #PE ruled out ABG 04/03 showed pH 7.34, pCO2 56, pO2 172 on FiO2 40 Patient likely has mucous plug that might explain the elevated pCO2, as no hx of COPD Patient has ventilator assoc pneumonia which she was discharged with on cefepime course on 04/01 Repeat chest x-ray 04/04 shows right base pneumonia (from prev L base pneumonia) WBC elevated to 11.4 Blood cultures 04/02 show 1/2 GPC bacteremia, pending speciation Blood cultures 04/05 neg after 24hrs Plan ? Ordered chest CT ? Cont'd Vancomycin and Zosyn (04/05- ? Acetylcysteine 10% solution every 4 hours to thin mucus in the lungs ? Patient continues to be on mechanical ventilation, RT following ? Nursing to continue doing suctioning ? Chest physiotherapy to aid with mucus clearance #Agitation May be related to underlying uncontrolled pain, anxiety Plan ? Started on gabapentin 300 mg 3 times daily ? Changed to Seroquel 25 mg BID #Constipation ?Start bowel regimen #Hypertensive urgency, resolved #History of essential hypertension Patient presented with blood pressure of 200/112. Patient has history of hypertension, losartan home dose 100 mg daily via G-tube Patient received labetalol 20 mg IV x 1 in ED and BP improved Plan ? Blood pressure labile so continue holding home losartan #History of ICH, leading to TBI #Chronic respiratory failure s/p trach Patient has a history of intracerebral hemorrhage back in 2012, which led to a fall, resulting in a traumatic brain injury. The traumatic brain injury resulted in chronic respiratory failure, requiring the patient to be status post tracheostomy tube. Patient is managed in subacute since. Plan: Continue to monitor Continue mechanical ventilation, transition to blow-by as tolerated #History of seizure disorder, unspecified Patient is noted to have a history of seizure disorder per chart review. Patient has been prescribed breakthrough seizure medication, however does not seem to be on any sort of antiseizure medication. Plan: - Patient to follow up with outpatient neurology - Diazepam 5 mg IV as needed #GERD, on PPI Patient is noted to have a history of GERD and takes esomeprazole in subacute. Plan: - Lansoprazole 30 mg GT daily Health Maintenance: Diet: Jevity 1.5 GI prophylaxis: Lansoprazole 30 mg GT DVT prophylaxis: Heparin 5000 units every 12 hours Antibiotics: Cefepime CODE STATUS: FULL Disposition: TELE Case discussed with my attending Dr. Rey, and senior resident, Dr. Catarina Ruby MD PGY-1 Attending Provider Attestation/Addendum I attest that I was physically present for the evaluation, physical examination, lab and imaging review of the patient with the residents. I discussed the case with the residents and agree with the findings and plans of care as documented above. Patient seen and examined at bedside this morning. Appears comfortable. Noted to have improvement in tachycardia but continues to be mildly tachypneic. Continues to be on mechanical ventilator. WBC count has improved compared to yesterday, 8.2 today. Rest of the lab results are also stable. Blood culture grew GPC resembling staph, awaiting final culture results and sensitivity. Follow-up blood culture from 04/05/2025 has been negative for 24 hours. Overnight, patient became agitated and received extra dose of Seroquel along with diazepam. We will increase her Seroquel dosing to 25 mg twice daily. Patient also received enema yesterday with a bowel movement following. We will adjust her bowel regimen. Obtained bladder scan, patient had 459 cc of urine, evacuated with In-N-Out catheter. We will continue with broad-spectrum IV antibiotic and obtain chest CT. Stevan Rey MD
[2025-04-06] MEDS: Milk Of Magnesia Susp 30 ML UDC GT (13:56)
--- NOTE | 2025-04-06 15:10 | PC.CC ---
Request from Dr. Miles for DM education on this IDDM patient with knowledge gaps. Met w/ patient and friends/family at bedside. Patient states she uses 20 units of a long-acting insulin pen every morning as well as metformin. She states that prior to this hospitalization she was avoiding sugary drinks per the advice of friends but did not receive any education on DM nutrition. She did s/w RD earlier and has no outstanding questions on nutrition. She reports that the RN at her MD's office applies a CGM every 2 weeks, but the one she was recently wearing fell off and she did not go into the office due to not feeling well. She reports she does not have a fingerstick glucometer but would like one, as her CGM often reads high . Her son has helped her apply a CGM once, but it did not stay on, and she is strongly prefers to continue having her MD's office apply them. She is not interested in learning how to apply her own CGM and declines PharmD assisting her. Discussed the addition of mealtime insulin to her DM plan and patient was amenable. Advised patient not to use mealtime insulin at breakfast as patient reported she typically does not eat much. Strongly advised patient to prime her insulin pen as her mealtime insulin dose is small to ensure correct dosing. Emphasized importance of adherence to long acting insulin. Discussed S/Sx hypoglycemia, CGM alarms and next steps. Recommended patient contact MD to discuss and adjust her insulin regimen if she receives more than one hypoglycemia alarm or high sugar alert. Discussed next steps for high blood sugar readings. Encouraged patient to incorporate productive physical activity and strength training to better improve glucose control. Pertinent questions were asked and answered. Discussed w/ Dr. Ru Christianson and requested glucometer, test strips, lancets and pen needles reflecting QID injections.
[2025-04-06] MEDS: FLUDROCORTISONE ACETATE 0.1 MG TABLET GT (20:34)
[2025-04-06] MEDS: VANCOMYCIN/NS 1 GM IVPB 200 ML IV (22:12)
[2025-04-07] VITALS (14 sets, daily range): BP systolic 75–109; BP diastolic 46–78; PULSE 68–82; RESP 14–30; TEMP 35.9–36.1; O2SAT 100
[2025-04-07] MEDS: ALBUTEROL/IPRATROPIUM (Duoneb) RT SOL 3 ML NEBU INH ×6 (03:02→22:14)
[2025-04-07] MEDS: PIPER/TAZO 3.375 GM PREMIX 3.375 GM/50 ML BAG IV ×2 (05:21→21:46)
[2025-04-07] MEDS: GABAPENTIN 300 MG CAPSULE PO ×3 (05:22→21:47)
[2025-04-07 05:26] LABS: Basophils # (Auto) 0.0 Thou/mm3 (0.0-0.2); Basophils % (Auto) 0 % (0-2.5); Eosinophils # (Auto) 0.1 Thou/mm3 (0.0-0.5); Eosinophils % (Auto) 2 % (0-10); Hematocrit 24.1 % (36.0-46.0); Immature Granulocytes Auto 0.01 Thou/mm3 (0.00-0.00); Lymphocytes # (Auto) 0.9 Thou/mm3 (1.0-4.8); Lymphocytes % (Auto) 19 % (10-50); Mean Corpuscular HGB Conc 32.0 g/dl (31.0-37.0); Mean Corpuscular Hemoglobin 27.7 pg (25.0-35.0); Mean Corpuscular Volume 87 fL (80-100); Monocytes # (Auto) 0.4 Thou/mm3 (0.0-0.8); Monocytes % (Auto) 10 % (0-12); Neutrophils # (Auto) 3.1 Thou/mm3 (1.8-7.7); Neutrophils % (Auto) 69 % (37-80); Nucleated Red Blood Cell # 0.00 Thou/mm3 (0.00-0.00); Nucleated Red Blood Cell % 0 /100 WBC (0); Platelet Count 185 Thou/mm3 (140-440); RDW Standard Deviation 52.6 fL (36.4-46.3); Red Blood Count 2.78 Miln/mm3 (4.00-5.20); White Blood Count 4.5 Thou/mm3 (3.6-11.0)
[2025-04-07 06:02] LABS: Alanine Aminotransferase 19 U/L (10-49); Albumin, Serum 3.1 gm/dL (3.4-4.8); Albumin/Globulin Ratio 1.1 (1.2-2.2); Alkaline Phosphatase 132 U/L (46-116); Anion Gap 6 (7-16); Aspartate Amino Transferase 19 U/L (0-34); BUN/Creatinine Ratio 20 Ratio (12-20); Bilirubin,Total 0.2 mg/dL (0.3-1.2); Blood Urea Nitrogen 8 mg/dL (9-23); Calcium 8.9 mg/dL (8.3-10.6); Calcium (Corrected) 9.6 mg/dL (8.5-10.1); Carbon Dioxide 33.2 mMol/L (20.0-31.0); Chloride 100 mMol/L (98-107); Creatinine (Component) 0.4 mg/dL (0.6-1.3); Estimated Creatinine Clearance 117.9 mL/min (>60); Globulin 2.9 gm/dL (2.3-3.5); Glucose 101 mg/dL (74-106); Osmolality,Calculated 275 (275-295); Potassium 4.2 mMol/L (3.4-5.1); Sodium 139 mMol/L (136-145); Total Protein 6.0 gm/dL (5.7-8.2); eGFR > 60 See Note
[2025-04-07 06:03] LABS: Hemoglobin 7.7 g/dL (12.0-16.0)
[2025-04-07] MEDS: ACETYLCYSTEINE RT SOL 10% 4 ML NEBU 3 ML INH ×3 (07:18→22:14)
[2025-04-07] MEDS: MULTIVITAMIN 15 ML UDC GT (09:17)
[2025-04-07] MEDS: VANCOMYCIN/NS 1 GM IVPB 200 ML IV (09:17)
[2025-04-07] MEDS: LANSOPRAZOLE 30 MG TAB.RAP.DR GT (09:17)
[2025-04-07] MEDS: HEPARIN SOD INJ 5000 UNIT/ML VIAL SC ×2 (09:25→21:55)
--- NOTE | 2025-04-07 11:47 | PC.SS ---
SS spoke to Zee from [facility] who states she has contacted Dr. Gonsalez and they can receive pt today. has provided bedside nurseNikki with ext [phone] to give report. SNF has been prepared and placed on chart. Bedside nurseNikki is aware. Migration Agent is aware. [facility] is aware. Bedside nurse is aware [facility] is ready to receive pt as soon as possible.
--- NOTE | 2025-04-07 12:16 | ESDS_ITS ---
Planned Discharge Date 04/07/25 DS: Providers Provider Date of admission: 04/02/25 11:34 Primary care physician: Ra Gonsalez MD Admitting Provider: Peter Buckley MD Attending Provider on Admission: Stevan Rey MD Attending Provider on DC: Marino Norton MD Discharging Provider: Marino Norton MD DS: Diagnosis Problem List Completed Was Problem List Reviewed/Reconciled?: Yes Hospital Course Hospital Course Hospital course: 69-year-old female with past medical history of chronic respiratory failure with tracheotomy, PEG tube placement secondary to intracranial hemorrhage, TBI and essential hypertension, seizure disorder presented to the ED from subacute on 04/02 with respiratory distress. In the ED, patient was hypertensive urgency with tachycardia, tachypnea with a respiratory rate of 39, afebrile satting 100 on mechanical ventilation with increased need of FiO2. Labs are significant for mild leukocytosis, normocytic anemia. EKG showed sinus tachycardia, chest x-ray showed atelectasis versus early pneumonia. CTA of the chest ordered to rule out PE did not show any PE but did show prominent pneumonia in the right lower lobe. Initial ABG showed a pH of 7.1 which improved to a pH of 7.3 without any changes made to the ventilator settings. Patient was admitted for acute on chronic hypoxic/hypercapnic respiratory failure secondary to ventilator associated pneumonia, aspirations and hypertensive urgency. During hospitalization, patient had multiple rapid responses with the first being for hypotension which was secondary to administration of Dilaudid for pain management, which was reversed with Narcan. Patient also had a rapid response for tachycardia likely secondary to vent asynchrony but which changed the vent settings improved. Goals of care discussions were had with the patient's family who deferred discussions with head of subacute. Patient's family is understanding that patient's condition is poor and they would want to avoid invasive treatment modalities such as upgrading patient to ICU. Patient will be discharged back to subacute with further goals of care discussions to be had with subacute facility head. Continue home medication as prescribed Continue IV Zosyn 3.375g Q8H for an additional 7 additional days for ventilator- associated pneumonia and chronic aspiration Patient started on gabapentin 300 3 times daily We would recommend to continue chest physiotherapy due to high burden of hypersecretion, as may be Mucomyst treatment and subacute Follow-up with primary care physician in 1 to 2 weeks Return to ED if symptoms worsens Hospital Diagnosis: #Acute hypoxic hypercapnic respiratory failure 2/2 to VAP #Constipation #Hypertensive urgency, resolved #History of essential hypertension #History of ICH, leading to TBI #Chronic respiratory failure s/p trach #History of seizure disorder, unspecified #GERD, on PPI Marino Norton DO PGY-2 Internal Medicine - [facility] Status at Discharge Overall status at discharge: patient is progressing back to baseline Time Spent with Patient Time attestation: Total time spent providing and/or coordinating discharge services: 45 minutes Time spent: Greater than 30 minutes Exam Vital Signs Temp Pulse Resp BP Pulse Ox O2 Del Method FiO2 96.8 F 77 30 H 104/78 100 Mechanical Ventilation 40 04/07/25 08:00 04/07/25 11:01 04/07/25 11:01 04/07/25 08:00 04/07/25 11:01 04/07/25 08:00 04/07/25 11:01 Narrative Exam General: Not in acute distress. Non-interactive. On mechanical vent. Skin: Warm, dry, intact. Head: Normocephalic, atraumatic. Eye: Normal conjunctiva, PERRL. CVS: Regular rate and rhythm, no murmur, +S1/S2. RESP: Decreased air entry bilat. No crackles GI: Soft, nontender, non-distended. No guarding or rebound tenderness. GT in place. Extremities: No edema, no cyanosis, no clubbing. Toes contractured bilaterally. Neuro: Non-verbal, minimal movement of upper extremities, no movement lower extremities. No overt cerebellar signs/incoordination. Discharge Plan Plan Patient Disposition: Xfer Skilled Nsg Fac (SNF) Care Plan Goals: Continue home medication as prescribed Continue IV Zosyn 3.375g Q8H for an additional 7 additional days for ventilator- associated pneumonia and chronic aspiration Patient started on gabapentin 300 3 times daily We would recommend to continue chest physiotherapy due to high burden of hypersecretion, as may be Mucomyst treatment and subacute Follow-up with primary care physician in 1 to 2 weeks Return to ED if symptoms worsens Prescriptions/Referrals Prescriptions/Med Rec: New gabapentin 300 mg Capsule 300 mg PO TID 14 Days Qty: 42 0RF quetiapine 25 mg Tablet 25 mg G-tube BID 30 Days Qty: 60 0RF Zosyn in dextrose (iso-osm) 3.375 gram/50 mL Piggyback 3.375 g IV Q8HR 7 Days Qty: 1200 0RF Continued sennosides [Senna Laxative] 8.6 mg tablet 17.2 mg G-tube HS 942 Days Qty: 1886 0RF Label Comments: for constipation Rx Instructions: Hold for loose stools. acetaminophen 325 mg tablet 650 mg G-tube Q6HR PRN (Reason: Pain) 713 Days 0RF Label Comments: Not to exceed 3 grams of Tylenol in 24 hours from all sources magnesium hydroxide [Milk of Magnesia] 400 mg/5 mL suspension 30 ml G-tube PRN PRN (Reason: No Bowel Movement) 941 Days 0RF Label Comments: CONC:400MG/5ML Rx Instructions: Give 2400mg/30ml PGT on the 5th shift if no BM bisacodyl [Dulcolax (bisacodyl)] 10 mg suppository [address] PRN PRN (Reason: No BM Per Bowel Management Protocol) 943 Days 0RF Rx Instructions: Administer as needed on 6th shift, if MOM ineffective. esomeprazole magnesium 40 mg capsule,delayed release(DR/EC) 40 mg G-tube DAILY 940 Days Qty: 940 0RF Label Comments: for GERD Phospha 250 Neutral 250 mg tablet 250 mg G-tube QDAY 943 Days 0RF Label Comments: for supplement losartan 100 mg tablet 100 mg G-tube HS 942 Days Qty: 943 0RF Label Comments: for HTN BBW Rx Instructions: Hold if SBP<110 Atrovent HFA 17 mcg/actuation HFA aerosol inhaler 3 puff INH Q4HR PRN (Reason: Shortness Of Breath Or Wheeze) 750 Days 0RF sodium chloride 1,000 mg tablet,soluble 1,000 mg G-tube BID 942 Days Qty: 943 0RF Label Comments: For Hyponatremia [id number] fum-folic ac 7.5 mg iron-400 mcg tablet 1 ea G-tube QDAY 943 Days Qty: 943 0RF Label Comments: for supplement Ear Wax Removal Drops 6.5 % drops 5 drp otic (ear) Q61D 346 Days 11RF Label Comments: 5 drops per ear at first med pass of shift. Then irrigate ears with NS at next med pass of each shift x 4 days for wax build up. fludrocortisone 0.1 mg tablet 0.1 mg G-tube 2100 225 Days Qty: 228 12RF Label Comments: Give one tab PGT daily. at night time no re-eval needed lorazepam 2 mg/mL solution 2 mg IM PRN PRN (Reason: Seizure Activity) 30 Days Qty: 1 0RF Rx Instructions: Ativan 2mg/ml IM for seizure, if seizure persists admister second dose of Ativan 2mg/ml IM. If Ativan is not effective send resident to ER for further evaluation and notify MD. albuterol sulfate 2.5 mg /3 mL (0.083 %) solution for nebulization 2.5 mg INH Q6HRRT PRN (Reason: Wheezing/SOB) 345 Days 0RF Discontinued cefepime 1 gram Recon Soln 2 g IV Q8HR Rx Instructions: x 2 days for Pneumonia cefepime 2 gram recon soln 2 g IV Q8H 2 Days Referrals: Ra Gonsalez MD [Primary Care Provider, Pulmonology] Patient/Caregiver Discharge Instructions Print Language: Botswanan Stand Alone Forms: Sally Award Info., Patient Portal Info Letter Discharge Order Discharge Orders: Discharge (Routine); Ordered 04/07/25 Ordered By: Marino Norton Quality Discharge Quality Measures VTE prophylaxis Attestestation Attestation I attest that I was physically present for the evaluation, physical examination, lab and imaging review of the patient with the residents. I discussed the case with the residents and agree with the findings and plans of care as documented above. Patient seen and examined at bedside this morning. Appears comfortable, saturating well on mechanical ventilator, FiO2 40. Vital signs are stable except for tachypnea. Lab results are stable as well. Family at bedside updated about patient's current condition and management plans. Stevan Rey MD
[2025-04-07] MEDS: Milk Of Magnesia Susp 30 ML UDC GT (12:46)
--- NOTE | 2025-04-07 15:00 | XR_ITS ---
Examination: Abdomen AP single view Technique: AP portable supine abdomen, single view Exam date and time: April 07, 2025, 1511 hours, comparison April 06, 2025 INDICATIONS: Abdominal distention today. FINDINGS: A tube overlies the gastric air bubble Nonobstructive bowel gas pattern. No free air. Severe osteopenia Mild narrowing hip joints IMPRESSION: Nonobstructive bowel gas pattern
--- NOTE | 2025-04-07 15:11 | PC.SS ---
Pt is waiting for bowel movement.
[2025-04-07] MEDS: FLUDROCORTISONE ACETATE 0.1 MG TABLET GT (21:47)
[2025-04-08] VITALS (8 sets, daily range): BP systolic 97–138; BP diastolic 63–98; PULSE 56–89; RESP 9–30; TEMP 36.1–37; O2SAT 99–100
[2025-04-08] MEDS: ALBUTEROL/IPRATROPIUM (Duoneb) RT SOL 3 ML NEBU INH ×3 (02:07→11:08)
[2025-04-08] MEDS: PIPER/TAZO 3.375 GM PREMIX 3.375 GM/50 ML BAG IV (05:08)
[2025-04-08] MEDS: GABAPENTIN 300 MG CAPSULE PO (05:08)
[2025-04-08 06:06] LABS: Basophils # (Auto) 0.0 Thou/mm3 (0.0-0.2); Basophils % (Auto) 1 % (0-2.5); Eosinophils # (Auto) 0.1 Thou/mm3 (0.0-0.5); Eosinophils % (Auto) 2 % (0-10); Hematocrit 27.6 % (36.0-46.0); Immature Granulocytes Auto 0.00 Thou/mm3 (0.00-0.00); Lymphocytes # (Auto) 0.7 Thou/mm3 (1.0-4.8); Lymphocytes % (Auto) 19 % (10-50); Mean Corpuscular HGB Conc 31.5 g/dl (31.0-37.0); Mean Corpuscular Hemoglobin 27.4 pg (25.0-35.0); Mean Corpuscular Volume 87 fL (80-100); Monocytes # (Auto) 0.4 Thou/mm3 (0.0-0.8); Monocytes % (Auto) 10 % (0-12); Neutrophils # (Auto) 2.6 Thou/mm3 (1.8-7.7); Neutrophils % (Auto) 69 % (37-80); Nucleated Red Blood Cell # 0.00 Thou/mm3 (0.00-0.00); Nucleated Red Blood Cell % 0 /100 WBC (0); Platelet Count 183 Thou/mm3 (140-440); RDW Standard Deviation 54.4 fL (36.4-46.3); Red Blood Count 3.17 Miln/mm3 (4.00-5.20); White Blood Count 3.8 Thou/mm3 (3.6-11.0)
[2025-04-08 06:23] LABS: Hemoglobin 8.7 g/dL (12.0-16.0)
[2025-04-08] MEDS: ACETYLCYSTEINE RT SOL 10% 4 ML NEBU 3 ML INH (06:24)
[2025-04-08] MEDS: Milk Of Magnesia Susp 30 ML UDC GT (06:24)
[2025-04-08 06:30] LABS: Alanine Aminotransferase 22 U/L (10-49); Albumin, Serum 3.4 gm/dL (3.4-4.8); Albumin/Globulin Ratio 1.1 (1.2-2.2); Alkaline Phosphatase 138 U/L (46-116); Anion Gap 8 (7-16); Aspartate Amino Transferase 30 U/L (0-34); BUN/Creatinine Ratio 16 Ratio (12-20); Bilirubin,Total 0.2 mg/dL (0.3-1.2); Blood Urea Nitrogen 8 mg/dL (9-23); Calcium 9.1 mg/dL (8.3-10.6); Calcium (Corrected) 9.6 mg/dL (8.5-10.1); Carbon Dioxide 34.2 mMol/L (20.0-31.0); Chloride 102 mMol/L (98-107); Creatinine (Component) 0.5 mg/dL (0.6-1.3); Estimated Creatinine Clearance 94.3 mL/min (>60); Globulin 3.0 gm/dL (2.3-3.5); Glucose 81 mg/dL (74-106); Osmolality,Calculated 284 (275-295); Potassium 4.2 mMol/L (3.4-5.1); Sodium 144 mMol/L (136-145); Total Protein 6.4 gm/dL (5.7-8.2); eGFR > 60 See Note
[2025-04-08] MEDS: LANSOPRAZOLE 30 MG TAB.RAP.DR GT (08:13)
[2025-04-08] MEDS: MULTIVITAMIN 15 ML UDC GT (08:13)
[2025-04-08] MEDS: HEPARIN SOD INJ 5000 UNIT/ML VIAL SC (08:13)
--- NOTE | 2025-04-08 08:38 | PC.SS ---
Follow up note: Pt is waiting for bowel movement. SS spoke to Zee from [facility] who provided number for report ext [phone], Bakari Horton. SS provided number to bedside nurse, Nikki. Pt will return to [facility] upon dc.
--- NOTE | 2025-04-08 11:15 | PC.NURSE ---
REPORT GIVEN TO MURALI MORENO AT 1105 FOR DISCHARGE TO SNF/SUBACUTE. RN INFORMED IV LEFT IN RIGHT UPPER ARM FOR IV ABX PRESCRIBED. QUESTIONS AND CONCERNS ADDRESSED.RN CALLING DR. MARY FOR FURTHER QUESTIONS AND CONCERNS. 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
--- NOTE | 2025-04-08 11:25 | ESPR_ITS ---
Documentation for date of: 04/08/25 Subjective Subjective Interval history: Patient was discharged to subacute facility today Exam Vital Signs Temp Pulse Resp BP Pulse Ox O2 Del Method FiO2 96.9 F 67 30 H 138/98 H 100 Mechanical Ventilation 40 04/08/25 08:00 04/08/25 11:09 04/08/25 11:09 04/08/25 08:00 04/08/25 11:09 04/08/25 08:00 04/08/25 11:09 Narrative Exam General: Not in acute distress. Non-interactive. On mechanical vent. Skin: Warm, dry, intact. Head: Normocephalic, atraumatic. Eye: Normal conjunctiva, PERRL. CVS: Regular rate and rhythm, no murmur, +S1/S2. RESP: Decreased air entry bilat. No crackles GI: Soft, nontender, non-distended. No guarding or rebound tenderness. GT in place. Extremities: No edema, no cyanosis, no clubbing. Toes contractured bilaterally. Neuro: Non-verbal, minimal movement of upper extremities, no movement lower extremities. No overt cerebellar signs/incoordination. Objective Labs 04/08/25 05:25 04/08/25 05:25 Labs: Laboratory Results - last 24 hr 04/08/25 05:25 WBC 3.8 RBC 3.17 L Hgb 8.7 L Hct 27.6 L MCV 87 MCH 27.4 MCHC 31.5 RDW Std Deviation 54.4 H Plt Count 183 Neut % (Auto) 69 Lymph % (Auto) 19 Bowman % (Auto) 10 Eos % (Auto) 2 Baso % (Auto) 1 Neut # (Auto) 2.6 Lymph # (Auto) 0.7 L Bowman # (Auto) 0.4 Eos # (Auto) 0.1 Baso # (Auto) 0.0 Immature Gran # (Auto) 0.00 Absolute Nucleated RBC 0.00 Immature Gran % 0 Nucleated RBC % 0 Sodium 144 Potassium 4.2 Chloride 102 Carbon Dioxide 34.2 H Anion Gap 8 BUN 8 L Creatinine 0.5 L Estim Creat Clear Calc 94.3 eGFR > 60 BUN/Creatinine Ratio 16 Glucose 81 Calculated Osmolality 284 Calcium 9.1 Corrected Calcium 9.6 Total Bilirubin 0.2 L AST 30 ALT 22 Alkaline Phosphatase 138 H Total Protein 6.4 Albumin 3.4 Globulin 3.0 Albumin/Globulin Ratio 1.1 L ABG Interpretation ABG results: 04/02/25 04/02/25 04/03/25 08:05 11:57 10:12 ABG pH 7.10 L* 7.33 L D 7.34 L ABG pCO2 100 H* 54 H D 56 H ABG pO2 84 182 H D 172 H ABG HCO3 31 H 29 H 30 H ABG O2 Saturation 92 101 H 100 H ABG Base Excess -1 2 4 H VBG pH VBG pCO2 VBG pO2 VBG Base Excess 04/04/25 04/06/25 04/06/25 20:20 00:44 02:47 ABG pH 7.14 L* D 7.27 L D ABG pCO2 90 H* D 65 H D ABG pO2 144 H D 392 H D ABG HCO3 31 H 30 H ABG O2 Saturation 99 H 101 H ABG Base Excess 0 2 VBG pH 7.43 VBG pCO2 43 VBG pO2 123 H VBG Base Excess 4 H 04/06/25 10:05 ABG pH 7.29 L ABG pCO2 67 H ABG pO2 317 H D ABG HCO3 32 H ABG O2 Saturation 101 H ABG Base Excess 5 H VBG pH VBG pCO2 VBG pO2 VBG Base Excess Quality Measures Quality Measures VTE prophylaxis Advance care planning discussed with:: child Assessment & Plan Assessment Current Active Medications: Generic Name Dose Route Start Last Admin Trade Name Freq PRN Reason Stop Dose Admin Acetaminophen 650 mg 04/02/25 15:55 04/06/25 01:14 Acetaminophen 325 Mg Tablet NG 05/02/25 15:54 650 mg Q6HR PRN Administration Pain 1-3 and/or Fever >100.1 Acetylcysteine 3 ml 04/05/25 15:00 04/08/25 06:24 Acetylcysteine Rt Day 10% 4 Ml Nebu INH 05/05/25 14:59 3 ml Q8HRRT POLLO Administration Albuterol/Ipratropium 3 ml 04/03/25 15:00 04/08/25 11:08 Albuterol/Ipratropium (Duoneb) Rt Day 3 Ml Nebu INH 05/03/25 14:59 3 ml Q4HRRT POLLO Administration Albuterol/Ipratropium 3 ml 04/05/25 01:12 04/06/25 08:46 Albuterol/Ipratropium (Duoneb) Rt Day 3 Ml Nebu INH 05/05/25 01:11 3 ml Q2HR PRN Administration SHORTNESS OF BREATH OR WHEEZE Fludrocortisone Acetate 0.1 mg 04/02/25 21:00 04/07/25 21:47 Fludrocortisone Acetate 0.1 Mg Tablet GT 05/02/25 20:59 0.1 mg 2100 POLLO Administration Gabapentin 300 mg 04/03/25 10:00 04/08/25 05:08 Gabapentin 300 Mg Capsule PO 05/03/25 09:59 300 mg TID POLLO Administration Heparin Sodium (Porcine) 5,000 unit 04/02/25 21:00 04/08/25 08:13 Heparin Sod Inj 5000 Unit/Ml Vial SC 04/16/25 20:59 5,000 unit Q12HR POLLO Administration Piperacillin/Tazobactam/Dextrose 3.375 gm in 50 mls @ 12.5 mls/hr 04/05/25 14:00 04/08/25 05:08 Zosyn IV 04/12/25 13:59 12.5 mls/hr Q8HR POLLO Administration Protocol Lansoprazole 30 mg 04/03/25 09:00 04/08/25 08:13 Lansoprazole 30 Mg Tab.Rap. GT 05/03/25 08:59 30 mg DAILY POLLO Administration Losartan Potassium 100 mg 04/02/25 21:00 04/04/25 20:27 Losartan Potassium 25 Mg Tablet GT 05/02/25 20:59 100 mg On Hold: 04/05/25 07:34 HS POLLO Administration Magnesium Hydroxide 30 ml 04/07/25 09:20 04/08/25 06:24 Milk Of Magnesia Susp 30 Ml Udc GT 05/05/25 09:36 30 ml Q2D PRN Administration NO BOWEL MOVEMENT Protocol Multivitamins/Minerals 15 ml 04/03/25 09:00 04/08/25 08:13 Multivitamin 15 Ml Udc GT 05/03/25 08:59 15 ml QDAY POLLO Administration Ondansetron HCl 4 mg 04/02/25 15:54 Ondansetron Inj 2 Mg/Ml Inj 2 Ml IVP 05/02/25 15:53 Q6HR PRN NAUSEA OR VOMITING Protocol Quetiapine Fumarate 25 mg 04/06/25 21:00 04/08/25 08:13 Quetiapine Fumarate 25 Mg Tablet GT 05/06/25 20:59 25 mg BID POLLO Administration Sennosides 1 tab 04/02/25 21:00 04/07/25 21:47 Senna Tablet GT 05/02/25 20:59 1 tab HS POLLO Administration Protocol Plan Patient was discharged to subacute facility today Hospital course: 69-year-old female with past medical history of chronic respiratory failure with tracheotomy, PEG tube placement secondary to intracranial hemorrhage, TBI and essential hypertension, seizure disorder presented to the ED from subacute on 04/02 with respiratory distress. In the ED, patient was hypertensive urgency with tachycardia, tachypnea with a respiratory rate of 39, afebrile satting 100 on mechanical ventilation with increased need of FiO2. Labs are significant for mild leukocytosis, normocytic anemia. EKG showed sinus tachycardia, chest x-ray showed atelectasis versus early pneumonia. CTA of the chest ordered to rule out PE did not show any PE but did show prominent pneumonia in the right lower lobe. Initial ABG showed a pH of 7.1 which improved to a pH of 7.3 without any changes made to the ventilator settings. Patient was admitted for acute on chronic hypoxic/hypercapnic respiratory failure secondary to ventilator associated pneumonia, aspirations and hypertensive urgency. During hospitalization, patient had multiple rapid responses with the first being for hypotension which was secondary to administration of Dilaudid for pain management, which was reversed with Narcan. Patient also had a rapid response for tachycardia likely secondary to vent asynchrony but which changed the vent settings improved. Goals of care discussions were had with the patient's family who deferred discussions with head of subacute. Patient's family is understanding that patient's condition is poor and they would want to avoid invasive treatment modalities such as upgrading patient to ICU. Patient will be discharged back to subacute with further goals of care discussions to be had with subacute facility head. Continue home medication as prescribed Continue IV Zosyn 3.375g Q8H for an additional 7 additional days for ventilator- associated pneumonia and chronic aspiration Patient started on gabapentin 300 3 times daily We would recommend to continue chest physiotherapy due to high burden of hypersecretion, as may be Mucomyst treatment and subacute Follow-up with primary care physician in 1 to 2 weeks Return to ED if symptoms worsens Hospital Diagnosis: #Acute hypoxic hypercapnic respiratory failure 2/2 to VAP #Constipation #Hypertensive urgency, resolved #History of essential hypertension #History of ICH, 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 Krissy Ruby MD PGY-1 Attending Provider Attestation/Addendum I attest that I was physically present for the evaluation, physical examination, lab and imaging review of the patient with the residents. I discussed the case with the residents and agree with the findings and plans of care as documented above. Stevan Rey MD
--- NOTE | 2025-04-08 12:28 | PC.NURSE ---
RECONCILIATION ACCOUNTANT CALLED MURALI RN AT 1225 TO CHECK STATUS OF TRANSFER. RN WAITING FOR CALL BACK FROM DR. MARY BEFORE ACCEPTING PT BACK TO SNF/SUBACUTE
== END 2025-04-08 13:53 | disposition skilled nursing facility (03) | DRG 208 ==
LOC: SERX 08:01 → SERHOLD 12:15 → S2NX 04-03 05:53
PROVIDERS: Student in an Organized Health Care Education/Training Program; Admitting Provider Internal Medicine; Emergency Provider Family Medicine; PCP Specialist; Visit Provider Student in an Organized Health Care Education/Training Program
DX: J95.851 Ventilator associated pneumonia (principal); J96.21 Acute and chronic respiratory failure with hypoxia; J96.22 Acute and chronic respiratory failure with hypercapnia; E87.1 Hypo-osmolality and hyponatremia; K21.9 Gastro-esophageal reflux disease without esophagitis; I10 Essential (primary) hypertension; G40.909 Epilepsy, unspecified, not intractable, without status epilepticus; Z93.0 Tracheostomy status; Z93.1 Gastrostomy status; I16.0 Hypertensive urgency; I95.9 Hypotension, unspecified; K59.00 Constipation, unspecified; R00.0 Tachycardia, unspecified; T40.2X5A Adverse effect of other opioids, initial encounter; Z79.899 Other long term (current) drug therapy; Y84.8 Other medical procedures as the cause of abnormal reaction of the patient, or of later complication, without mention of misadventure at the time of the procedure; Z88.8 Allergy status to other drugs, medicaments and biological substances
CPT/HCPCS: 36415; 36600; 71045; 71250; 71275; 74018; 80048; 80053; 80202; 81001; 82803; 83605; 83735; 83880; 84100; 84484; 85025; 85379; 85610; 85730; 87040; 87077; 87081; 87811; 93005; 93306; 94003; 94640; 94667; 94762; 96361; 96372; 96374; 96375; 99284; A4649; A9270; J0692; J1171; J1644; J2250; J2312; J2543; J3010; J3360; J3372; J3373; J3475; J3490; J7050; J7120; J7999; Q9967; J1920

== ENCOUNTER → 2025-04-27 13:54 | Inpatient (IN) | payer MEDICARE, MEDICAID, SELFPAY ==
[2023-03-02] VITALS (7 sets, daily range): BP systolic 99–151; BP diastolic 60–92; PULSE 57–79; RESP 18–20; TEMP 36–36.1; O2SAT 92–96
[2023-03-02 07:05] LABS: Albumin, Serum 4.4 gm/dL (3.4-4.8); Anion Gap 8 (7-16); BUN/Creatinine Ratio 43 Ratio (12-20); Blood Urea Nitrogen 17 mg/dL (9-23); Calcium 9.6 mg/dL (8.3-10.6); Calcium (Corrected) 9.6 mg/dL (8.5-10.1); Carbon Dioxide 27.1 mMol/L (20.0-31.0); Chloride 96 mMol/L (98-107); Creatinine (Component) 0.4 mg/dL (0.6-1.3); Estimated Creatinine Clearance 104.6 mL/min (>60); Glucose 82 mg/dL (74-106); Osmolality,Calculated 263 (275-295); Phosphorous 3.7 mg/dL (2.4-5.1); Potassium 4.4 mMol/L (3.4-5.1); Sodium 131 mMol/L (136-145); eGFR > 60 See Note
[2023-03-02] MEDS: SOD PHOS DI, MONO/K PHOS MONO 250 MG TABLET GT (09:29)
[2023-03-02] MEDS: MULTIVIT-MIN/IRON FUM/FOLIC AC 1 EACH TABLET GT (09:30)
[2023-03-02] MEDS: SODIUM CHLORIDE TAB 1,000 MG TABLET.SOL 1000 MG GT ×2 (09:31→21:05)
--- NOTE | 2023-03-02 13:45 | PC.NURSE ---
Called Dr Gonsalez, verbally reported resident's Renal panel result. Sodium level 131, currently on sodium chloride 1 gram BID and NS flush 450ml q shift. Order received from Dr Gonsalez to increase Gtube flush to 500 ml NS q shift noted and carried out.
--- NOTE | 2023-03-02 14:28 | PC.SS ---
Room visit: Resident is laying in bed with TV on with head of the bed elevated with call light properly placed. Resident is well groomed not showing any signs of distress. Resident has no changes in mood or behavior, resident to remain in current care as there is no changes in care or condition. Resident will continue to receive daily room visits from [facility] and will be offered any support needed.
[2023-03-02] MEDS: SENNOSIDES 8.6 MG TABLET 17.2 MG GT (21:05)
[2023-03-03] VITALS (7 sets, daily range): BP systolic 111–152; BP diastolic 76–86; PULSE 60–68; RESP 18; TEMP 36–36.3; O2SAT 93–97
[2023-03-03 06:09] LABS: Basophils # (Auto) 0.0 Thou/mm3 (0.0-0.2); Basophils % (Auto) 0 % (0-2.5); Eosinophils # (Auto) 0.1 Thou/mm3 (0.0-0.5); Eosinophils % (Auto) 1 % (0-10); Hematocrit 34.6 % (36.0-46.0); Hemoglobin 12.1 g/dL (12.0-16.0); Immature Granulocytes Auto 0.01 Thou/mm3 (0.00-0.00); Lymphocytes # (Auto) 1.9 Thou/mm3 (1.0-4.8); Lymphocytes % (Auto) 22 % (10-50); Mean Corpuscular HGB Conc 35.0 g/dl (31.0-37.0); Mean Corpuscular Hemoglobin 30.2 pg (25.0-35.0); Mean Corpuscular Volume 86 fL (80-100); Monocytes # (Auto) 0.8 Thou/mm3 (0.0-0.8); Monocytes % (Auto) 9 % (0-12); Neutrophils # (Auto) 6.2 Thou/mm3 (1.8-7.7); Neutrophils % (Auto) 69 % (37-80); Nucleated Red Blood Cell # 0.00 Thou/mm3 (0.00-0.00); Nucleated Red Blood Cell % 0 /100 WBC (0); Platelet Count 176 Thou/mm3 (140-440); RDW Standard Deviation 41.9 fL (36.4-46.3); Red Blood Count 4.01 Miln/mm3 (4.00-5.20); White Blood Count 9.0 Thou/mm3 (3.6-11.0)
[2023-03-03] MEDS: SODIUM CHLORIDE TAB 1,000 MG TABLET.SOL 1000 MG GT ×2 (09:03→20:10)
[2023-03-03] MEDS: MULTIVIT-MIN/IRON FUM/FOLIC AC 1 EACH TABLET GT (09:03)
[2023-03-03] MEDS: SOD PHOS DI, MONO/K PHOS MONO 250 MG TABLET GT (09:04)
[2023-03-03] MEDS: LOSARTAN 100 MG TABLET GT (20:09)
[2023-03-03] MEDS: SENNOSIDES 8.6 MG TABLET 17.2 MG GT (20:10)
[2023-03-04] VITALS: BP 134/86; PULSE 60; RESP 20; TEMP 36.1
[2023-03-04 06:00] VITALS: BP 138/81; PULSE 63; RESP 18; TEMP 36.3; O2SAT 95
[2023-03-04 06:43] VITALS: PULSE 63; RESP 18; O2SAT 97
[2023-03-04] MEDS: SOD PHOS DI, MONO/K PHOS MONO 250 MG TABLET GT (09:19)
[2023-03-04] MEDS: MULTIVIT-MIN/IRON FUM/FOLIC AC 1 EACH TABLET GT (09:19)
[2023-03-04] MEDS: SODIUM CHLORIDE TAB 1,000 MG TABLET.SOL 1000 MG GT ×2 (09:20→20:23)
[2023-03-04 12:00] VITALS: BP 120/80; PULSE 77; RESP 19; TEMP 36.3; O2SAT 97
[2023-03-04 17:59] VITALS: BP 169/78; PULSE 80; RESP 19; TEMP 36.2
[2023-03-04 20:22] VITALS: BP 155/83; PULSE 87
[2023-03-04] MEDS: LOSARTAN 100 MG TABLET GT (20:22)
[2023-03-04] MEDS: SENNOSIDES 8.6 MG TABLET 17.2 MG GT (20:23)
[2023-03-05] VITALS (7 sets, daily range): BP systolic 140–158; BP diastolic 79–93; PULSE 55–70; RESP 16–20; TEMP 36.1–36.4; O2SAT 95–98
[2023-03-05] MEDS: SOD PHOS DI, MONO/K PHOS MONO 250 MG TABLET GT (09:16)
[2023-03-05] MEDS: ESOMEPRAZOLE 40 MG GT (09:16)
[2023-03-05] MEDS: MULTIVIT-MIN/IRON FUM/FOLIC AC 1 EACH TABLET GT (09:17)
[2023-03-05] MEDS: SODIUM CHLORIDE TAB 1,000 MG TABLET.SOL 1000 MG GT ×2 (09:17→21:26)
--- NOTE | 2023-03-05 09:20 | PD.SAPROG ---
Progress Note - SubAcute SUBJECTIVE Fever:: none GI:: none Shortness of Breath:: none GI:: no complaints Pain:: none OBJECTIVE Most recent vital signs: Last Vital Signs Temp 96.9 F 03/11/23 05:51 Pulse 67 03/11/23 05:51 Resp 18 03/11/23 05:51 BP 128/89 H 03/11/23 05:51 Pulse Ox 96 03/11/23 05:51 O2 Del Method Blow-by 03/07/23 17:39 O2 Flow Rate 6 03/10/23 18:30 FiO2 28 03/10/23 18:30 Neurological:: alert Speech:: nods head, mouths words (sometimes) and appropriate Answers questions:: sometimes Respiratory:: shallow breathing Cardiovascular: RRR Abdomen: soft and nontender Extremities:: deformities Decubitus:: none Tracheostomy:: to blow by Feeding per:: G tube Complaints:: none ASSESSMENT & PLAN Assessment: pt comfortable, dependant for care; Diagnosis and treatment reviewed and continued Plan: Current treatment to continue
[2023-03-05] MEDS: LOSARTAN 100 MG TABLET GT (21:10)
[2023-03-05] MEDS: SENNOSIDES 8.6 MG TABLET 17.2 MG GT (21:24)
[2023-03-06] VITALS (7 sets, daily range): BP systolic 115–167; BP diastolic 70–92; PULSE 50–61; RESP 16–20; TEMP 36.2–36.3; O2SAT 95–96
[2023-03-06] MEDS: ESOMEPRAZOLE 40 MG GT (09:14)
[2023-03-06] MEDS: SODIUM CHLORIDE TAB 1,000 MG TABLET.SOL 1000 MG GT ×2 (09:15→20:29)
[2023-03-06] MEDS: MULTIVIT-MIN/IRON FUM/FOLIC AC 1 EACH TABLET GT (09:15)
[2023-03-06] MEDS: SOD PHOS DI, MONO/K PHOS MONO 250 MG TABLET GT (09:15)
[2023-03-06] MEDS: LOSARTAN 100 MG TABLET GT (20:28)
[2023-03-06] MEDS: SENNOSIDES 8.6 MG TABLET 17.2 MG GT (20:28)
[2023-03-07] VITALS (8 sets, daily range): BP systolic 94–172; BP diastolic 68–80; PULSE 55–67; RESP 16–18; TEMP 36–36.2; O2SAT 96–98
[2023-03-07] MEDS: SOD PHOS DI, MONO/K PHOS MONO 250 MG TABLET GT (09:28)
[2023-03-07] MEDS: ESOMEPRAZOLE 40 MG GT (09:28)
[2023-03-07] MEDS: MULTIVIT-MIN/IRON FUM/FOLIC AC 1 EACH TABLET GT (09:28)
[2023-03-07] MEDS: SODIUM CHLORIDE TAB 1,000 MG TABLET.SOL 1000 MG GT ×2 (09:28→20:17)
[2023-03-07] MEDS: SENNOSIDES 8.6 MG TABLET 17.2 MG GT (20:17)
[2023-03-07] MEDS: LOSARTAN 100 MG TABLET GT (20:17)
[2023-03-08] VITALS (8 sets, daily range): BP systolic 113–162; BP diastolic 79–86; PULSE 55–71; RESP 16–20; TEMP 36.1; O2SAT 95–98
[2023-03-08] MEDS: ESOMEPRAZOLE 40 MG GT (08:01)
[2023-03-08] MEDS: SOD PHOS DI, MONO/K PHOS MONO 250 MG TABLET GT (08:01)
[2023-03-08] MEDS: MULTIVIT-MIN/IRON FUM/FOLIC AC 1 EACH TABLET GT (08:02)
[2023-03-08] MEDS: SODIUM CHLORIDE TAB 1,000 MG TABLET.SOL 1000 MG GT ×2 (08:02→20:30)
[2023-03-08] MEDS: LOSARTAN 100 MG TABLET GT (20:29)
[2023-03-08] MEDS: SENNOSIDES 8.6 MG TABLET 17.2 MG GT (20:30)
[2023-03-09] VITALS (7 sets, daily range): BP systolic 118–166; BP diastolic 74–86; PULSE 55–93; RESP 16–20; TEMP 36.1–36.2; O2SAT 95–98
[2023-03-09] MEDS: ESOMEPRAZOLE 40 MG GT (09:10)
[2023-03-09] MEDS: SODIUM CHLORIDE TAB 1,000 MG TABLET.SOL 1000 MG GT ×2 (09:11→20:28)
[2023-03-09] MEDS: SOD PHOS DI, MONO/K PHOS MONO 250 MG TABLET GT (09:11)
[2023-03-09] MEDS: MULTIVIT-MIN/IRON FUM/FOLIC AC 1 EACH TABLET GT (09:11)
--- NOTE | 2023-03-09 15:55 | PC.SS ---
Room visit: Resident is laying in bed with head of the bed elevated with call light properly placed. Resident is well groomed not showing any signs of distress. Resident continues to receive daily room visit from this SSD. Resident has no changes in mood or behavior, resident to remain in current care as there is no changes in care or condition.
[2023-03-09] MEDS: LOSARTAN 100 MG TABLET GT (20:26)
[2023-03-09] MEDS: SENNOSIDES 8.6 MG TABLET 17.2 MG GT (20:28)
[2023-03-10] VITALS (8 sets, daily range): BP systolic 121–176; BP diastolic 78–83; PULSE 52–61; RESP 16–19; TEMP 36.1; O2SAT 92–98
[2023-03-10] MEDS: SOD PHOS DI, MONO/K PHOS MONO 250 MG TABLET GT (08:07)
[2023-03-10] MEDS: SODIUM CHLORIDE TAB 1,000 MG TABLET.SOL 1000 MG GT ×2 (08:07→20:14)
[2023-03-10] MEDS: ESOMEPRAZOLE 40 MG GT (08:07)
[2023-03-10] MEDS: MULTIVIT-MIN/IRON FUM/FOLIC AC 1 EACH TABLET GT (08:07)
[2023-03-10] MEDS: SENNOSIDES 8.6 MG TABLET 17.2 MG GT (20:13)
[2023-03-10] MEDS: LOSARTAN 100 MG TABLET GT (20:13)
[2023-03-11] VITALS (8 sets, daily range): BP systolic 128–162; BP diastolic 81–95; PULSE 49–69; RESP 18; TEMP 36.1; O2SAT 96–98
[2023-03-11] MEDS: ESOMEPRAZOLE 40 MG GT (08:24)
[2023-03-11] MEDS: SODIUM CHLORIDE TAB 1,000 MG TABLET.SOL 1000 MG GT ×2 (08:25→20:51)
[2023-03-11] MEDS: MULTIVIT-MIN/IRON FUM/FOLIC AC 1 EACH TABLET GT (08:25)
[2023-03-11] MEDS: SOD PHOS DI, MONO/K PHOS MONO 250 MG TABLET GT (08:25)
[2023-03-11] MEDS: LOSARTAN 100 MG TABLET GT (20:50)
[2023-03-11] MEDS: SENNOSIDES 8.6 MG TABLET 17.2 MG GT (20:51)
[2023-03-11] MEDS: MAGNESIUM HYDROXIDE 30 ML ORAL SUSP ML GT (20:52)
[2023-03-12] VITALS (7 sets, daily range): BP systolic 131–146; BP diastolic 78–92; PULSE 51–64; RESP 17–18; TEMP 35.9–36.2; O2SAT 92–97
[2023-03-12] MEDS: SODIUM CHLORIDE TAB 1,000 MG TABLET.SOL 1000 MG GT ×2 (08:36→20:31)
[2023-03-12] MEDS: ESOMEPRAZOLE 40 MG GT (08:36)
[2023-03-12] MEDS: MULTIVIT-MIN/IRON FUM/FOLIC AC 1 EACH TABLET GT (08:36)
[2023-03-12] MEDS: SOD PHOS DI, MONO/K PHOS MONO 250 MG TABLET GT (08:36)
[2023-03-12] MEDS: LOSARTAN 100 MG TABLET GT (20:28)
[2023-03-12] MEDS: SENNOSIDES 8.6 MG TABLET 17.2 MG GT (20:31)
[2023-03-13] VITALS (12 sets, daily range): BP systolic 113–151; BP diastolic 60–87; PULSE 58–91; RESP 16–20; TEMP 36–36.2; O2SAT 93–98
[2023-03-13] MEDS: MULTIVIT-MIN/IRON FUM/FOLIC AC 1 EACH TABLET GT (08:37)
[2023-03-13] MEDS: SOD PHOS DI, MONO/K PHOS MONO 250 MG TABLET GT (08:37)
[2023-03-13] MEDS: ESOMEPRAZOLE 40 MG GT (08:37)
[2023-03-13] MEDS: SODIUM CHLORIDE TAB 1,000 MG TABLET.SOL 1000 MG GT ×2 (08:38→20:19)
[2023-03-13] MEDS: SENNOSIDES 8.6 MG TABLET 17.2 MG GT (20:18)
[2023-03-13] MEDS: LOSARTAN 100 MG TABLET GT (20:18)
--- NOTE | 2023-03-13 22:12 | PD.SAPROG ---
Progress Note - SubAcute SUBJECTIVE Fever:: none GI:: none Shortness of Breath:: none GI:: no complaints Pain:: none OBJECTIVE Most recent vital signs: Last Vital Signs Temp 96.8 F 03/13/23 17:30 Pulse 80 03/13/23 20:18 Resp 18 03/13/23 17:30 BP 141/84 H 03/13/23 20:18 Pulse Ox 93 L 03/13/23 17:30 O2 Del Method Blow-by 03/11/23 17:49 O2 Flow Rate 6 03/13/23 14:03 FiO2 28 03/13/23 14:03 Neurological:: alert Speech:: nods head, mouths words (sometimes) and appropriate Answers questions:: sometimes Respiratory:: shallow breathing Cardiovascular: RRR Abdomen: soft and nontender Extremities:: deformities Decubitus:: none Tracheostomy:: to blow by Feeding per:: G tube Complaints:: none ASSESSMENT & PLAN Assessment: pt comfortable, dependant for care; Diagnosis and treatment reviewed and continued Plan: Current treatment to continue
[2023-03-14] VITALS (7 sets, daily range): BP systolic 132–180; BP diastolic 77–97; PULSE 57–75; RESP 16–20; TEMP 36.1–36.6; O2SAT 95–99
[2023-03-14] MEDS: SOD PHOS DI, MONO/K PHOS MONO 250 MG TABLET GT (08:04)
[2023-03-14] MEDS: SODIUM CHLORIDE TAB 1,000 MG TABLET.SOL 1000 MG GT ×2 (08:04→20:39)
[2023-03-14] MEDS: ESOMEPRAZOLE 40 MG GT (08:04)
[2023-03-14] MEDS: MULTIVIT-MIN/IRON FUM/FOLIC AC 1 EACH TABLET GT (08:05)
[2023-03-14] MEDS: LOSARTAN 100 MG TABLET GT (20:38)
[2023-03-14] MEDS: SENNOSIDES 8.6 MG TABLET 17.2 MG GT (20:39)
[2023-03-15] VITALS (7 sets, daily range): BP systolic 124–180; BP diastolic 75–92; PULSE 64–105; RESP 16–19; TEMP 36.1–36.4; O2SAT 92–100
[2023-03-15] MEDS: MULTIVIT-MIN/IRON FUM/FOLIC AC 1 EACH TABLET GT (08:25)
[2023-03-15] MEDS: SOD PHOS DI, MONO/K PHOS MONO 250 MG TABLET GT (08:25)
[2023-03-15] MEDS: ESOMEPRAZOLE 40 MG GT (08:25)
[2023-03-15] MEDS: SODIUM CHLORIDE TAB 1,000 MG TABLET.SOL 1000 MG GT ×2 (08:25→20:34)
--- NOTE | 2023-03-15 12:07 | CHAP ---
11:00 AM Visited by spiritual care volunteer Provided prayer for Patient.
--- NOTE | 2023-03-15 12:34 | PC.SS ---
Room visit: Resident is laying in bed with head of the bed elevated. Resident has TV on with call light properly placed, showing no signs of distress or changes in mood or behavior. Resident has no changes in care or condition, resident will remain in current care and will continue to be evaluated as appropriate fro DC to lower level of care. Resident will continue to receive daily room visits from staff.
[2023-03-15] MEDS: LOSARTAN 100 MG TABLET GT (20:34)
[2023-03-15] MEDS: SENNOSIDES 8.6 MG TABLET 17.2 MG GT (20:34)
[2023-03-16] VITALS (7 sets, daily range): BP systolic 91–123; BP diastolic 65–85; PULSE 51–65; RESP 16–18; TEMP 36.1; O2SAT 95–99
[2023-03-16] MEDS: ESOMEPRAZOLE 40 MG GT (08:03)
[2023-03-16] MEDS: SOD PHOS DI, MONO/K PHOS MONO 250 MG TABLET GT (08:04)
[2023-03-16] MEDS: MULTIVIT-MIN/IRON FUM/FOLIC AC 1 EACH TABLET GT (08:04)
[2023-03-16] MEDS: SODIUM CHLORIDE TAB 1,000 MG TABLET.SOL 1000 MG GT ×2 (08:05→20:10)
--- NOTE | 2023-03-16 14:05 | PC.NURSE ---
Received bed bath this shift. Shu well. Eucerin cream applied per md order. Trach care performed, shu well.
--- NOTE | 2023-03-16 14:08 | PC.NURSE ---
Received bed bath this shift. Shu well. Lubiderm cream applied per md order. Trach care performed, shu well.
[2023-03-16] MEDS: LOSARTAN 100 MG TABLET GT (20:09)
[2023-03-16] MEDS: SENNOSIDES 8.6 MG TABLET 17.2 MG GT (20:10)
[2023-03-17] VITALS: BP 160/74; PULSE 56; RESP 18; TEMP 36.1
[2023-03-17 06:15] VITALS: PULSE 49; RESP 16; O2SAT 99
[2023-03-17] MEDS: MAGNESIUM HYDROXIDE 30 ML ORAL SUSP ML GT (06:28)
[2023-03-17] MEDS: ESOMEPRAZOLE 40 MG GT (08:34)
[2023-03-17] MEDS: SODIUM CHLORIDE TAB 1,000 MG TABLET.SOL 1000 MG GT ×2 (08:35→20:29)
[2023-03-17] MEDS: SOD PHOS DI, MONO/K PHOS MONO 250 MG TABLET GT (08:35)
[2023-03-17] MEDS: MULTIVIT-MIN/IRON FUM/FOLIC AC 1 EACH TABLET GT (08:35)
[2023-03-17 11:47] VITALS: BP 100/68; PULSE 51; RESP 18; TEMP 35.9
[2023-03-17 17:54] VITALS: BP 142/94; PULSE 69; RESP 17; TEMP 36.3; O2SAT 100
[2023-03-17 19:14] VITALS: PULSE 52; RESP 16; O2SAT 96
[2023-03-17 20:28] VITALS: BP 132/82; PULSE 61
[2023-03-17] MEDS: LOSARTAN 100 MG TABLET GT (20:28)
[2023-03-17] MEDS: SENNOSIDES 8.6 MG TABLET 17.2 MG GT (20:29)
--- NOTE | 2023-03-17 22:23 | PD.SAPROG ---
Progress Note - SubAcute SUBJECTIVE Fever:: none GI:: none Shortness of Breath:: none GI:: no complaints Pain:: none OBJECTIVE Most recent vital signs: Last Vital Signs Temp 97.3 F 03/17/23 17:54 Pulse 61 03/17/23 20:28 Resp 16 03/17/23 19:14 BP 132/82 H 03/17/23 20:28 Pulse Ox 96 03/17/23 19:14 O2 Del Method Blow-by 03/15/23 00:00 O2 Flow Rate 6 03/17/23 19:14 FiO2 28 03/17/23 19:14 Neurological:: alert Speech:: nods head, mouths words (sometimes) and appropriate Answers questions:: sometimes Respiratory:: shallow breathing Cardiovascular: RRR Abdomen: soft and nontender Extremities:: deformities Decubitus:: none Tracheostomy:: to blow by Feeding per:: G tube Complaints:: none ASSESSMENT & PLAN Assessment: pt comfortable, dependant for care; Diagnosis and treatment reviewed and continued Plan: Current treatment to continue
[2023-03-18] VITALS (7 sets, daily range): BP systolic 104–160; BP diastolic 77–92; PULSE 45–68; RESP 16–22; TEMP 36–36.3; O2SAT 96–98
[2023-03-18] MEDS: ESOMEPRAZOLE 40 MG GT (08:19)
[2023-03-18] MEDS: SOD PHOS DI, MONO/K PHOS MONO 250 MG TABLET GT (08:20)
[2023-03-18] MEDS: SODIUM CHLORIDE TAB 1,000 MG TABLET.SOL 1000 MG GT ×2 (08:20→21:09)
[2023-03-18] MEDS: MULTIVIT-MIN/IRON FUM/FOLIC AC 1 EACH TABLET GT (08:20)
--- NOTE | 2023-03-18 10:23 | CHAP ---
Patient was visited by the Spiritual Care Volunteer who also prayed with them. (Volunteer was in the hospital from 09:12-10:30).
[2023-03-18] MEDS: LOSARTAN 100 MG TABLET GT (21:08)
[2023-03-18] MEDS: SENNOSIDES 8.6 MG TABLET 17.2 MG GT (21:09)
[2023-03-19] VITALS (8 sets, daily range): BP systolic 115–179; BP diastolic 76–98; PULSE 52–80; RESP 16–24; TEMP 36.1–36.4; O2SAT 93–100
[2023-03-19] MEDS: SOD PHOS DI, MONO/K PHOS MONO 250 MG TABLET GT (08:20)
[2023-03-19] MEDS: SODIUM CHLORIDE TAB 1,000 MG TABLET.SOL 1000 MG GT ×2 (08:20→20:31)
[2023-03-19] MEDS: ESOMEPRAZOLE 40 MG GT (08:20)
[2023-03-19] MEDS: MULTIVIT-MIN/IRON FUM/FOLIC AC 1 EACH TABLET GT (08:20)
[2023-03-19] MEDS: LOSARTAN 100 MG TABLET GT (20:30)
[2023-03-19] MEDS: SENNOSIDES 8.6 MG TABLET 17.2 MG GT (20:31)
[2023-03-20] VITALS (7 sets, daily range): BP systolic 122–172; BP diastolic 70–97; PULSE 58–83; RESP 18–20; TEMP 35.6–36.4; O2SAT 94–97
[2023-03-20] MEDS: ESOMEPRAZOLE 40 MG GT (08:31)
[2023-03-20] MEDS: SOD PHOS DI, MONO/K PHOS MONO 250 MG TABLET GT (08:32)
[2023-03-20] MEDS: MULTIVIT-MIN/IRON FUM/FOLIC AC 1 EACH TABLET GT (08:32)
[2023-03-20] MEDS: SODIUM CHLORIDE TAB 1,000 MG TABLET.SOL 1000 MG GT ×2 (08:33→20:36)
[2023-03-20] MEDS: SENNOSIDES 8.6 MG TABLET 17.2 MG GT (20:36)
[2023-03-20] MEDS: LOSARTAN 100 MG TABLET GT (20:36)
[2023-03-21] VITALS (7 sets, daily range): BP systolic 99–162; BP diastolic 61–85; PULSE 51–70; RESP 16–18; TEMP 35.9–36.3; O2SAT 96–99
[2023-03-21] MEDS: MULTIVIT-MIN/IRON FUM/FOLIC AC 1 EACH TABLET GT (08:39)
[2023-03-21] MEDS: ESOMEPRAZOLE 40 MG GT (08:39)
[2023-03-21] MEDS: CARBAMIDE PEROXIDE OTIC SOL 15 ML BTL 5 DROP BOTH EARS (08:39)
[2023-03-21] MEDS: SOD PHOS DI, MONO/K PHOS MONO 250 MG TABLET GT (08:39)
[2023-03-21] MEDS: SODIUM CHLORIDE TAB 1,000 MG TABLET.SOL 1000 MG GT ×2 (08:40→21:14)
--- NOTE | 2023-03-21 11:15 | PD.SAPROG ---
Progress Note - SubAcute SUBJECTIVE Fever:: none GI:: none Shortness of Breath:: none GI:: no complaints Pain:: none OBJECTIVE Most recent vital signs: Last Vital Signs Temp 96.7 F L 03/23/23 06:00 Pulse 58 L 03/23/23 06:00 Resp 18 03/23/23 06:00 BP 133/89 H 03/23/23 06:00 Pulse Ox 97 03/23/23 06:00 O2 Del Method Blow-by 03/21/23 18:00 O2 Flow Rate 6 03/22/23 18:15 FiO2 28 03/22/23 18:15 Neurological:: alert Speech:: nods head, mouths words (sometimes) and appropriate Answers questions:: sometimes Respiratory:: shallow breathing Cardiovascular: RRR Abdomen: soft and nontender Extremities:: deformities Decubitus:: none Tracheostomy:: to blow by Feeding per:: G tube Complaints:: none ASSESSMENT & PLAN Assessment: pt comfortable, dependant for care; Diagnosis and treatment reviewed and continued Plan: Current treatment to continue
[2023-03-21] MEDS: LOSARTAN 100 MG TABLET GT (21:14)
[2023-03-21] MEDS: SENNOSIDES 8.6 MG TABLET 17.2 MG GT (21:14)
[2023-03-22] VITALS (7 sets, daily range): BP systolic 97–156; BP diastolic 52–92; PULSE 55–70; RESP 16–18; TEMP 36.1–36.3; O2SAT 95–99
[2023-03-22] MEDS: MULTIVIT-MIN/IRON FUM/FOLIC AC 1 EACH TABLET GT (08:40)
[2023-03-22] MEDS: ESOMEPRAZOLE 40 MG GT (08:40)
[2023-03-22] MEDS: CARBAMIDE PEROXIDE OTIC SOL 15 ML BTL 5 DROP BOTH EARS (08:40)
[2023-03-22] MEDS: SOD PHOS DI, MONO/K PHOS MONO 250 MG TABLET GT (08:40)
[2023-03-22] MEDS: SODIUM CHLORIDE TAB 1,000 MG TABLET.SOL 1000 MG GT ×2 (08:41→21:15)
--- NOTE | 2023-03-22 18:01 | CHAP ---
11:30 AM Visited by spiritual care volunteer Provided prayer for Patient.
[2023-03-22] MEDS: LOSARTAN 100 MG TABLET GT (21:14)
[2023-03-22] MEDS: SENNOSIDES 8.6 MG TABLET 17.2 MG GT (21:14)
[2023-03-22] MEDS: MAGNESIUM HYDROXIDE 30 ML ORAL SUSP ML GT (21:15)
[2023-03-23] VITALS (8 sets, daily range): BP systolic 123–139; BP diastolic 73–98; PULSE 58–85; RESP 16–20; TEMP 35.9–36.2; O2SAT 95–98
[2023-03-23] MEDS: CARBAMIDE PEROXIDE OTIC SOL 15 ML BTL 5 DROP BOTH EARS (08:17)
[2023-03-23] MEDS: ESOMEPRAZOLE 40 MG GT (08:18)
[2023-03-23] MEDS: SOD PHOS DI, MONO/K PHOS MONO 250 MG TABLET GT (08:18)
[2023-03-23] MEDS: MULTIVIT-MIN/IRON FUM/FOLIC AC 1 EACH TABLET GT (08:18)
[2023-03-23] MEDS: SODIUM CHLORIDE TAB 1,000 MG TABLET.SOL 1000 MG GT ×2 (08:19→21:21)
--- NOTE | 2023-03-23 14:38 | PC.SS ---
Room visit: Resident is seen laying in bed with head of the bed elevated, resident has call light properly placed with no signs of distress. Resident is well groomed and appears comfortable. Resident continues to receive daily room visits, she is not showing any changes in mood or behavior. Resident will continue to receive room visits from staff and be offered support as she will accept.
[2023-03-23] MEDS: LOSARTAN 100 MG TABLET GT (21:20)
[2023-03-23] MEDS: SENNOSIDES 8.6 MG TABLET 17.2 MG GT (21:21)
[2023-03-24] VITALS (7 sets, daily range): BP systolic 109–177; BP diastolic 69–94; PULSE 54–90; RESP 17–20; TEMP 36.1–36.2; O2SAT 96–97
[2023-03-24] MEDS: ACETAMINOPHEN 325 MG TABLET 650 MG GT ×2 (06:00→21:30)
[2023-03-24] MEDS: CARBAMIDE PEROXIDE OTIC SOL 15 ML BTL 5 DROP BOTH EARS (09:33)
[2023-03-24] MEDS: ESOMEPRAZOLE 40 MG GT (09:34)
[2023-03-24] MEDS: SOD PHOS DI, MONO/K PHOS MONO 250 MG TABLET GT (09:34)
[2023-03-24] MEDS: SODIUM CHLORIDE TAB 1,000 MG TABLET.SOL 1000 MG GT ×2 (09:35→21:30)
[2023-03-24] MEDS: MULTIVIT-MIN/IRON FUM/FOLIC AC 1 EACH TABLET GT (09:35)
[2023-03-24] MEDS: LOSARTAN 100 MG TABLET GT (21:30)
[2023-03-24] MEDS: SENNOSIDES 8.6 MG TABLET 17.2 MG GT (21:30)
[2023-03-25] VITALS (8 sets, daily range): BP systolic 131–176; BP diastolic 84–92; PULSE 55–68; RESP 16–22; TEMP 35.9–36.6; O2SAT 94–99
[2023-03-25] MEDS: SODIUM CHLORIDE TAB 1,000 MG TABLET.SOL 1000 MG GT ×2 (08:40→20:33)
[2023-03-25] MEDS: SOD PHOS DI, MONO/K PHOS MONO 250 MG TABLET GT (08:40)
[2023-03-25] MEDS: MULTIVIT-MIN/IRON FUM/FOLIC AC 1 EACH TABLET GT (08:40)
[2023-03-25] MEDS: ESOMEPRAZOLE 40 MG GT (08:40)
--- NOTE | 2023-03-25 10:20 | CHAP ---
Patient was visited by the Spiritual Care Volunteer who prayed for them. (Volunteer was in the hospital from 08:36-10:20)
[2023-03-25] MEDS: LOSARTAN 100 MG TABLET GT (20:32)
[2023-03-25] MEDS: SENNOSIDES 8.6 MG TABLET 17.2 MG GT (20:33)
--- NOTE | 2023-03-25 23:02 | PD.SAPROG ---
Progress Note - SubAcute SUBJECTIVE Fever:: none GI:: none Shortness of Breath:: none GI:: no complaints Pain:: none OBJECTIVE Most recent vital signs: Last Vital Signs Temp 97.6 F 03/25/23 17:52 Pulse 68 03/25/23 20:32 Resp 20 03/25/23 17:52 BP 145/89 H 03/25/23 20:32 Pulse Ox 94 L 03/25/23 17:52 O2 Del Method Blow-by 03/25/23 17:52 O2 Flow Rate 6 03/25/23 09:00 FiO2 28 03/25/23 09:00 Neurological:: alert Speech:: nods head, mouths words (sometimes) and appropriate Answers questions:: sometimes Respiratory:: shallow breathing Cardiovascular: RRR Abdomen: soft and nontender Extremities:: deformities Decubitus:: none Tracheostomy:: to blow by Feeding per:: G tube Complaints:: none ASSESSMENT & PLAN Assessment: pt comfortable, dependant for care; Diagnosis and treatment reviewed and continued Plan: Current treatment to continue
[2023-03-26] VITALS (7 sets, daily range): BP systolic 126–164; BP diastolic 67–85; PULSE 55–71; RESP 16–20; TEMP 36.1; O2SAT 97–99
[2023-03-26] MEDS: SOD PHOS DI, MONO/K PHOS MONO 250 MG TABLET GT (08:46)
[2023-03-26] MEDS: ESOMEPRAZOLE 40 MG GT (08:46)
[2023-03-26] MEDS: MULTIVIT-MIN/IRON FUM/FOLIC AC 1 EACH TABLET GT (08:46)
[2023-03-26] MEDS: SODIUM CHLORIDE TAB 1,000 MG TABLET.SOL 1000 MG GT ×2 (08:47→21:11)
[2023-03-26] MEDS: LOSARTAN 100 MG TABLET GT (21:11)
[2023-03-26] MEDS: SENNOSIDES 8.6 MG TABLET 17.2 MG GT (21:11)
[2023-03-27] VITALS (7 sets, daily range): BP systolic 113–150; BP diastolic 69–85; PULSE 53–71; RESP 16–18; TEMP 36.1–36.2; O2SAT 93–98
[2023-03-27] MEDS: ESOMEPRAZOLE 40 MG GT (08:43)
[2023-03-27] MEDS: SODIUM CHLORIDE TAB 1,000 MG TABLET.SOL 1000 MG GT ×2 (08:44→21:17)
[2023-03-27] MEDS: MULTIVIT-MIN/IRON FUM/FOLIC AC 1 EACH TABLET GT (08:44)
[2023-03-27] MEDS: SOD PHOS DI, MONO/K PHOS MONO 250 MG TABLET GT (08:44)
[2023-03-27] MEDS: LOSARTAN 100 MG TABLET GT (21:16)
[2023-03-27] MEDS: SENNOSIDES 8.6 MG TABLET 17.2 MG GT (21:17)
[2023-03-28] VITALS (8 sets, daily range): BP systolic 121–162; BP diastolic 73–91; PULSE 46–66; RESP 16–21; TEMP 36.1–36.4; O2SAT 95–99
[2023-03-28] MEDS: MULTIVIT-MIN/IRON FUM/FOLIC AC 1 EACH TABLET GT (08:54)
[2023-03-28] MEDS: SODIUM CHLORIDE TAB 1,000 MG TABLET.SOL 1000 MG GT ×2 (08:54→20:55)
[2023-03-28] MEDS: SOD PHOS DI, MONO/K PHOS MONO 250 MG TABLET GT (08:54)
[2023-03-28] MEDS: ESOMEPRAZOLE 40 MG GT (08:54)
[2023-03-28] MEDS: SENNOSIDES 8.6 MG TABLET 17.2 MG GT (20:54)
[2023-03-28] MEDS: LOSARTAN 100 MG TABLET GT (20:54)
[2023-03-29] VITALS (9 sets, daily range): BP systolic 109–165; BP diastolic 74–90; PULSE 53–70; RESP 16–19; TEMP 36.1–36.3; O2SAT 96–99
[2023-03-29] MEDS: ESOMEPRAZOLE 40 MG GT (08:28)
[2023-03-29] MEDS: SODIUM CHLORIDE TAB 1,000 MG TABLET.SOL 1000 MG GT ×2 (08:29→08:40)
[2023-03-29] MEDS: SOD PHOS DI, MONO/K PHOS MONO 250 MG TABLET GT (08:29)
[2023-03-29] MEDS: MULTIVIT-MIN/IRON FUM/FOLIC AC 1 EACH TABLET GT (08:29)
--- NOTE | 2023-03-29 12:05 | PD.SAPROG ---
Progress Note - SubAcute SUBJECTIVE Fever:: none GI:: none Shortness of Breath:: none GI:: no complaints Pain:: none OBJECTIVE Most recent vital signs: Last Vital Signs Temp 96.7 F L 04/01/23 11:44 Pulse 78 04/01/23 11:44 Resp 17 04/01/23 11:44 BP 124/85 H 04/01/23 11:44 Pulse Ox 96 04/01/23 06:23 O2 Del Method Blow-by 03/31/23 18:00 O2 Flow Rate 6 04/01/23 06:23 FiO2 28 04/01/23 06:23 Neurological:: alert Speech:: nods head, mouths words (sometimes) and appropriate Answers questions:: sometimes Respiratory:: shallow breathing Cardiovascular: RRR Abdomen: soft and nontender Extremities:: deformities Decubitus:: none Tracheostomy:: to blow by Feeding per:: G tube Complaints:: none ASSESSMENT & PLAN Assessment: pt comfortable, dependant for care; Diagnosis and treatment reviewed and continued Plan: Current treatment to continue
--- NOTE | 2023-03-29 13:51 | CHAP ---
11:00 AM Visited by spiritual care volunteer Provided prayer for Patient.
[2023-03-29] MEDS: LOSARTAN 100 MG TABLET GT (20:14)
[2023-03-29] MEDS: SENNOSIDES 8.6 MG TABLET 17.2 MG GT (20:15)
[2023-03-30 05:55] VITALS: PULSE 62; RESP 18; O2SAT 98
[2023-03-30 05:57] VITALS: BP 128/87; PULSE 54; RESP 16; TEMP 36.1; O2SAT 96
[2023-03-30] MEDS: SOD PHOS DI, MONO/K PHOS MONO 250 MG TABLET GT (08:50)
[2023-03-30] MEDS: ESOMEPRAZOLE 40 MG GT (08:50)
[2023-03-30] MEDS: SODIUM CHLORIDE TAB 1,000 MG TABLET.SOL 1000 MG GT ×2 (08:51→20:34)
[2023-03-30] MEDS: MULTIVIT-MIN/IRON FUM/FOLIC AC 1 EACH TABLET GT (08:51)
[2023-03-30 12:00] VITALS: BP 175/87; PULSE 57; RESP 18; TEMP 36.1
--- NOTE | 2023-03-30 15:46 | PC.SS ---
Room visit: Resident is laying in bed with head of the bed elevated light properly placed. Resident is well groomed with no signs of distress. Resident currently has no changes in care or condition, resident will remain in current care as resident is not ready to DC to SNF or lower level of care. Resident will have daily room visits from [facility].
--- NOTE | 2023-03-30 15:57 | PC.NURSE ---
Resident received shower and tolerated well. Trach care provided. Redness/MAD noted to right abdominal fold. RN made aware. No s/s of pain or discomfort noted.
[2023-03-30 17:46] VITALS: BP 179/84; PULSE 65; RESP 18; TEMP 36; O2SAT 96
[2023-03-30 18:45] VITALS: PULSE 65; RESP 18; O2SAT 97
[2023-03-30 20:33] VITALS: BP 156/83; PULSE 74
[2023-03-30] MEDS: LOSARTAN 100 MG TABLET GT (20:33)
[2023-03-30] MEDS: SENNOSIDES 8.6 MG TABLET 17.2 MG GT (20:33)
[2023-03-31] VITALS (7 sets, daily range): BP systolic 123–157; BP diastolic 84–103; PULSE 59–80; RESP 18; TEMP 36–36.1; O2SAT 94–98
[2023-03-31] MEDS: SOD PHOS DI, MONO/K PHOS MONO 250 MG TABLET GT (09:24)
[2023-03-31] MEDS: SODIUM CHLORIDE TAB 1,000 MG TABLET.SOL 1000 MG GT ×2 (09:24→20:28)
[2023-03-31] MEDS: ESOMEPRAZOLE 40 MG GT (09:24)
[2023-03-31] MEDS: MULTIVIT-MIN/IRON FUM/FOLIC AC 1 EACH TABLET GT (09:24)
[2023-03-31] MEDS: SENNOSIDES 8.6 MG TABLET 17.2 MG GT (20:28)
[2023-03-31] MEDS: LOSARTAN 100 MG TABLET GT (20:28)
[2023-04-01] VITALS (7 sets, daily range): BP systolic 106–170; BP diastolic 63–90; PULSE 56–90; RESP 17–20; TEMP 35.9–36.4; O2SAT 95–96
[2023-04-01 06:18] LABS: Albumin, Serum 4.3 gm/dL (3.4-4.8); Anion Gap 5 (7-16); BUN/Creatinine Ratio 43 Ratio (12-20); Blood Urea Nitrogen 13 mg/dL (9-23); Calcium 9.8 mg/dL (8.3-10.6); Calcium (Corrected) 9.8 mg/dL (8.5-10.1); Carbon Dioxide 29.7 mMol/L (20.0-31.0); Chloride 93 mMol/L (98-107); Creatinine (Component) 0.3 mg/dL (0.6-1.3); Estimated Creatinine Clearance 138.0 mL/min (>60); Glucose 87 mg/dL (74-106); Osmolality,Calculated 256 (275-295); Phosphorous 3.2 mg/dL (2.4-5.1); Potassium 4.2 mMol/L (3.4-5.1); Sodium 128 mMol/L (136-145); eGFR > 60 See Note
[2023-04-01] MEDS: MULTIVIT-MIN/IRON FUM/FOLIC AC 1 EACH TABLET GT (09:21)
[2023-04-01] MEDS: SOD PHOS DI, MONO/K PHOS MONO 250 MG TABLET GT (09:21)
[2023-04-01] MEDS: ESOMEPRAZOLE 40 MG GT (09:21)
[2023-04-01] MEDS: SODIUM CHLORIDE TAB 1,000 MG TABLET.SOL 1000 MG GT ×2 (09:22→21:26)
--- NOTE | 2023-04-01 10:15 | CHAP ---
Patient was visited by the Spiritual Care Volunteers who also prayed for them. (Volunteers were in the hospital from 09:20-10:15).
--- NOTE | 2023-04-01 13:19 | PC.NURSE ---
Notified and read report to MD regarding resident low sodium levels. Patient currently on sodium supplements and strict intake and out put. receiving NS flushes only. Instruction is for pt to received strictly NS no water. Will carry out order. Pt remains with no appearent distress. Will continue to monitor.
[2023-04-01] MEDS: MAGNESIUM HYDROXIDE 30 ML ORAL SUSP ML GT (17:48)
[2023-04-01] MEDS: LOSARTAN 100 MG TABLET GT (21:25)
[2023-04-01] MEDS: SENNOSIDES 8.6 MG TABLET 17.2 MG GT (21:26)
[2023-04-02] VITALS (10 sets, daily range): BP systolic 109–153; BP diastolic 63–86; PULSE 72–84; RESP 16–20; TEMP 35.8–36.1; O2SAT 94–98
[2023-04-02] MEDS: MULTIVIT-MIN/IRON FUM/FOLIC AC 1 EACH TABLET GT (09:00)
[2023-04-02] MEDS: SODIUM CHLORIDE TAB 1,000 MG TABLET.SOL 1000 MG GT ×2 (09:00→21:40)
[2023-04-02] MEDS: ESOMEPRAZOLE 40 MG GT (10:00)
[2023-04-02] MEDS: SOD PHOS DI, MONO/K PHOS MONO 250 MG TABLET GT (10:00)
[2023-04-02] MEDS: SENNOSIDES 8.6 MG TABLET 17.2 MG GT (21:40)
[2023-04-02] MEDS: LOSARTAN 100 MG TABLET GT (21:41)
[2023-04-03] VITALS: BP 115/74; PULSE 67; RESP 19; TEMP 36.1
[2023-04-03 06:00] VITALS: BP 176/84; PULSE 67; RESP 20; TEMP 36.3; O2SAT 97
[2023-04-03 07:19] VITALS: PULSE 62; RESP 18; O2SAT 95
[2023-04-03] MEDS: MULTIVIT-MIN/IRON FUM/FOLIC AC 1 EACH TABLET GT (09:33)
[2023-04-03] MEDS: SOD PHOS DI, MONO/K PHOS MONO 250 MG TABLET GT (09:33)
[2023-04-03] MEDS: SODIUM CHLORIDE TAB 1,000 MG TABLET.SOL 1000 MG GT ×2 (09:33→21:27)
[2023-04-03] MEDS: ESOMEPRAZOLE 40 MG GT (09:33)
[2023-04-03 12:00] VITALS: BP 148/78; PULSE 52; RESP 20; TEMP 36
[2023-04-03 18:00] VITALS: BP 154/78; PULSE 51; RESP 19; TEMP 36.1; O2SAT 100
[2023-04-03 21:26] VITALS: BP 152/79; PULSE 60
[2023-04-03] MEDS: LOSARTAN 100 MG TABLET GT (21:26)
[2023-04-03] MEDS: SENNOSIDES 8.6 MG TABLET 17.2 MG GT (21:27)
[2023-04-04] VITALS (7 sets, daily range): BP systolic 103–164; BP diastolic 76–94; PULSE 55–76; RESP 16–19; TEMP 35.9–36.3; O2SAT 95–99
[2023-04-04] MEDS: ESOMEPRAZOLE 40 MG GT (09:54)
[2023-04-04] MEDS: MULTIVIT-MIN/IRON FUM/FOLIC AC 1 EACH TABLET GT (09:55)
[2023-04-04] MEDS: SODIUM CHLORIDE TAB 1,000 MG TABLET.SOL 1000 MG GT ×2 (09:55→20:48)
[2023-04-04] MEDS: SOD PHOS DI, MONO/K PHOS MONO 250 MG TABLET GT (09:55)
[2023-04-04] MEDS: LOSARTAN 100 MG TABLET GT (20:47)
[2023-04-04] MEDS: SENNOSIDES 8.6 MG TABLET 17.2 MG GT (21:59)
--- NOTE | 2023-04-04 22:51 | PD.SAPROG ---
Progress Note - SubAcute SUBJECTIVE Fever:: none GI:: none Shortness of Breath:: none GI:: no complaints Pain:: none OBJECTIVE Most recent vital signs: Last Vital Signs Temp 97.0 F 04/08/23 18:00 Pulse 64 04/08/23 21:14 Resp 18 04/08/23 18:00 BP 167/94 H 04/08/23 21:14 Pulse Ox 96 04/08/23 18:00 O2 Del Method Blow-by 04/08/23 06:00 O2 Flow Rate 6 04/08/23 09:00 FiO2 28 04/08/23 09:00 Neurological:: alert Speech:: nods head, mouths words (sometimes) and appropriate Answers questions:: sometimes Respiratory:: shallow breathing Cardiovascular: RRR Abdomen: soft and nontender Extremities:: deformities Decubitus:: none Tracheostomy:: to blow by Feeding per:: G tube Complaints:: none ASSESSMENT & PLAN Assessment: pt comfortable, dependant for care; Diagnosis and treatment reviewed and continued Plan: Current treatment to continue
[2023-04-05] VITALS (7 sets, daily range): BP systolic 135–162; BP diastolic 78–90; PULSE 62–81; RESP 17–18; TEMP 35.9–36.2; O2SAT 95–98
[2023-04-05] MEDS: ESOMEPRAZOLE 40 MG GT (08:57)
[2023-04-05] MEDS: MULTIVIT-MIN/IRON FUM/FOLIC AC 1 EACH TABLET GT (08:58)
[2023-04-05] MEDS: SOD PHOS DI, MONO/K PHOS MONO 250 MG TABLET GT (08:58)
[2023-04-05] MEDS: SODIUM CHLORIDE TAB 1,000 MG TABLET.SOL 1000 MG GT ×2 (08:58→20:43)
[2023-04-05] MEDS: MAGNESIUM HYDROXIDE 30 ML ORAL SUSP ML GT (10:21)
[2023-04-05] MEDS: LOSARTAN 100 MG TABLET GT (20:42)
[2023-04-05] MEDS: SENNOSIDES 8.6 MG TABLET 17.2 MG GT (20:43)
[2023-04-06] VITALS (7 sets, daily range): BP systolic 131–184; BP diastolic 60–97; PULSE 58–67; RESP 15–20; TEMP 36–36.6; O2SAT 94–98
[2023-04-06] MEDS: ESOMEPRAZOLE 40 MG GT (08:17)
[2023-04-06] MEDS: MULTIVIT-MIN/IRON FUM/FOLIC AC 1 EACH TABLET GT (08:20)
[2023-04-06] MEDS: SOD PHOS DI, MONO/K PHOS MONO 250 MG TABLET GT (08:20)
[2023-04-06] MEDS: SODIUM CHLORIDE TAB 1,000 MG TABLET.SOL 1000 MG GT ×2 (08:21→20:39)
--- NOTE | 2023-04-06 15:46 | PC.SS ---
Room visit: Resident is laying in bed with head of the bed elevated with call light properly placed. Resident is well groomed with no signs of distress. Resident continues to get daily room visits, not showing any changes in mood or behavior. Resident will remain in current care as there are no changes in care or condition. Resident will continue to be evaluated as appropriate for DC to lower level of care.
[2023-04-06] MEDS: LOSARTAN 100 MG TABLET GT (20:38)
[2023-04-06] MEDS: SENNOSIDES 8.6 MG TABLET 17.2 MG GT (20:38)
[2023-04-07] VITALS (7 sets, daily range): BP systolic 120–169; BP diastolic 80–92; PULSE 62–80; RESP 16–20; TEMP 36–36.1; O2SAT 97–99
[2023-04-07] MEDS: MULTIVIT-MIN/IRON FUM/FOLIC AC 1 EACH TABLET GT (10:08)
[2023-04-07] MEDS: SOD PHOS DI, MONO/K PHOS MONO 250 MG TABLET GT (10:08)
[2023-04-07] MEDS: SODIUM CHLORIDE TAB 1,000 MG TABLET.SOL 1000 MG GT ×2 (10:08→20:54)
[2023-04-07] MEDS: ESOMEPRAZOLE 40 MG GT (10:08)
[2023-04-07] MEDS: LOSARTAN 100 MG TABLET GT (20:53)
[2023-04-07] MEDS: SENNOSIDES 8.6 MG TABLET 17.2 MG GT (20:54)
[2023-04-08] VITALS (9 sets, daily range): BP systolic 127–167; BP diastolic 81–94; PULSE 60–66; RESP 18–20; TEMP 36–36.2; O2SAT 96–98
[2023-04-08] MEDS: SOD PHOS DI, MONO/K PHOS MONO 250 MG TABLET GT (09:38)
[2023-04-08] MEDS: ESOMEPRAZOLE 40 MG GT (09:38)
[2023-04-08] MEDS: MULTIVIT-MIN/IRON FUM/FOLIC AC 1 EACH TABLET GT (09:39)
[2023-04-08] MEDS: SODIUM CHLORIDE TAB 1,000 MG TABLET.SOL 1000 MG GT ×2 (09:39→21:15)
[2023-04-08] MEDS: LOSARTAN 100 MG TABLET GT (21:14)
[2023-04-08] MEDS: SENNOSIDES 8.6 MG TABLET 17.2 MG GT (21:15)
[2023-04-09] VITALS (7 sets, daily range): BP systolic 104–133; BP diastolic 69–83; PULSE 59–72; RESP 16–18; TEMP 35.9–36.2; O2SAT 94–99
[2023-04-09] MEDS: SOD PHOS DI, MONO/K PHOS MONO 250 MG TABLET GT (09:44)
[2023-04-09] MEDS: ESOMEPRAZOLE 40 MG GT (09:44)
[2023-04-09] MEDS: MULTIVIT-MIN/IRON FUM/FOLIC AC 1 EACH TABLET GT (09:44)
[2023-04-09] MEDS: SODIUM CHLORIDE TAB 1,000 MG TABLET.SOL 1000 MG GT ×2 (09:45→20:59)
[2023-04-09] MEDS: SENNOSIDES 8.6 MG TABLET 17.2 MG GT (20:58)
[2023-04-09] MEDS: LOSARTAN 100 MG TABLET GT (20:58)
[2023-04-10] VITALS (7 sets, daily range): BP systolic 97–153; BP diastolic 62–92; PULSE 47–76; RESP 16–18; TEMP 35.7–35.8; O2SAT 92–97
[2023-04-10] MEDS: ESOMEPRAZOLE 40 MG GT (08:55)
[2023-04-10] MEDS: MULTIVIT-MIN/IRON FUM/FOLIC AC 1 EACH TABLET GT (08:56)
[2023-04-10] MEDS: SOD PHOS DI, MONO/K PHOS MONO 250 MG TABLET GT (08:56)
[2023-04-10] MEDS: SODIUM CHLORIDE TAB 1,000 MG TABLET.SOL 1000 MG GT ×2 (08:56→20:30)
[2023-04-10] MEDS: LOSARTAN 100 MG TABLET GT (20:29)
[2023-04-10] MEDS: SENNOSIDES 8.6 MG TABLET 17.2 MG GT (20:30)
[2023-04-11] VITALS (7 sets, daily range): BP systolic 142–161; BP diastolic 78–95; PULSE 57–78; RESP 16–19; TEMP 35.6–36.1; O2SAT 96–98
[2023-04-11] MEDS: SOD PHOS DI, MONO/K PHOS MONO 250 MG TABLET GT (08:45)
[2023-04-11] MEDS: ESOMEPRAZOLE 40 MG GT (08:45)
[2023-04-11] MEDS: SODIUM CHLORIDE TAB 1,000 MG TABLET.SOL 1000 MG GT ×2 (08:45→21:07)
--- NOTE | 2023-04-11 11:59 | PC.SS ---
Room visit: Resident is laying in bed with head of the bed elevated with call light properly placed with no signs of distress. Resident is well groomed and appears comfortable. Resident will continue to receive daily room visits as there are no changes in care or condition.
[2023-04-11] MEDS: LOSARTAN 100 MG TABLET GT (21:06)
[2023-04-11] MEDS: SENNOSIDES 8.6 MG TABLET 17.2 MG GT (21:07)
[2023-04-12] VITALS: BP 183/77; PULSE 72; RESP 17; TEMP 36.1
[2023-04-12 06:00] VITALS: BP 179/78; PULSE 78; RESP 18; TEMP 36.1; O2SAT 97
[2023-04-12] MEDS: SOD PHOS DI, MONO/K PHOS MONO 250 MG TABLET GT (09:46)
[2023-04-12] MEDS: ESOMEPRAZOLE 40 MG GT (09:46)
[2023-04-12] MEDS: MULTIVIT-MIN/IRON FUM/FOLIC AC 1 EACH TABLET GT (09:46)
[2023-04-12] MEDS: SODIUM CHLORIDE TAB 1,000 MG TABLET.SOL 1000 MG GT ×2 (09:47→21:20)
[2023-04-12 12:00] VITALS: BP 161/78; PULSE 72; PULSE 83; RESP 16; RESP 20; TEMP 36.1; O2SAT 95
--- NOTE | 2023-04-12 12:46 | CHAP ---
The Spiritual Care Volunteer prayed a silent prayer for her. (Volunteer was in the hospital from 10:30-12:46).
[2023-04-12 17:47] VITALS: BP 165/85; PULSE 83; RESP 18; TEMP 36.1; O2SAT 98
[2023-04-12 20:19] VITALS: PULSE 59; RESP 16; RESP 18; O2SAT 95
[2023-04-12 21:20] VITALS: BP 148/86; PULSE 80
[2023-04-12] MEDS: SENNOSIDES 8.6 MG TABLET 17.2 MG GT (21:20)
[2023-04-12] MEDS: LOSARTAN 100 MG TABLET GT (21:20)
--- NOTE | 2023-04-12 21:37 | PD.SAPROG ---
Progress Note - SubAcute SUBJECTIVE Fever:: none GI:: none Shortness of Breath:: none GI:: no complaints Pain:: none OBJECTIVE Most recent vital signs: Last Vital Signs Temp 96.9 F 04/12/23 17:47 Pulse 80 04/12/23 21:20 Resp 18 04/12/23 17:47 BP 148/86 H 04/12/23 21:20 Pulse Ox 98 04/12/23 17:47 O2 Del Method Blow-by 04/12/23 17:47 O2 Flow Rate 6 04/12/23 12:00 FiO2 28 04/12/23 12:00 Neurological:: alert Speech:: nods head, mouths words (sometimes) and appropriate Answers questions:: sometimes Respiratory:: shallow breathing Cardiovascular: RRR Abdomen: soft and nontender Extremities:: deformities Decubitus:: none Tracheostomy:: to blow by Feeding per:: G tube Complaints:: none ASSESSMENT & PLAN Assessment: pt comfortable, dependant for care; Diagnosis and treatment reviewed and continued Plan: Current treatment to continue
[2023-04-13] VITALS (7 sets, daily range): BP systolic 129–167; BP diastolic 77–98; PULSE 68–86; RESP 16–118; TEMP 36–36.4; O2SAT 93–98
[2023-04-13] MEDS: ESOMEPRAZOLE 40 MG GT (09:19)
[2023-04-13] MEDS: MULTIVIT-MIN/IRON FUM/FOLIC AC 1 EACH TABLET GT (09:19)
[2023-04-13] MEDS: SODIUM CHLORIDE TAB 1,000 MG TABLET.SOL 1000 MG GT ×2 (09:19→20:49)
[2023-04-13] MEDS: SOD PHOS DI, MONO/K PHOS MONO 250 MG TABLET GT (09:19)
[2023-04-13 10:34] LABS: Anion Gap 5 (7-16); BUN/Creatinine Ratio 38 Ratio (12-20); Blood Urea Nitrogen 15 mg/dL (9-23); Calcium 10.0 mg/dL (8.3-10.6); Carbon Dioxide 29.7 mMol/L (20.0-31.0); Chloride 98 mMol/L (98-107); Creatinine (Component) 0.4 mg/dL (0.6-1.3); Estimated Creatinine Clearance 103.5 mL/min (>60); Glucose 110 mg/dL (74-106); Osmolality,Calculated 268 (275-295); Potassium 4.1 mMol/L (3.4-5.1); Sodium 133 mMol/L (136-145); eGFR > 60 See Note
--- NOTE | 2023-04-13 13:10 | PC.NURSE ---
Called Dr triana , verbally reported resident's BMP results. Sodium level 33, currently on sodium chloride 1 gm BID and NS 500 ml max q shift. Order received to repeat BMP in one week
[2023-04-13] MEDS: LOSARTAN 100 MG TABLET GT (20:48)
[2023-04-13] MEDS: SENNOSIDES 8.6 MG TABLET 17.2 MG GT (20:49)
[2023-04-13] MEDS: MAGNESIUM HYDROXIDE 30 ML ORAL SUSP ML GT (21:01)
[2023-04-14] VITALS (7 sets, daily range): BP systolic 119–168; BP diastolic 70–88; PULSE 60–82; RESP 16–20; TEMP 35–36.3; O2SAT 92–97
[2023-04-14] MEDS: ESOMEPRAZOLE 40 MG GT (09:49)
[2023-04-14] MEDS: MULTIVIT-MIN/IRON FUM/FOLIC AC 1 EACH TABLET GT (09:49)
[2023-04-14] MEDS: SOD PHOS DI, MONO/K PHOS MONO 250 MG TABLET GT (09:49)
[2023-04-14] MEDS: SODIUM CHLORIDE TAB 1,000 MG TABLET.SOL 1000 MG GT ×2 (09:50→21:12)
[2023-04-14] MEDS: LOSARTAN 100 MG TABLET GT (21:11)
[2023-04-14] MEDS: SENNOSIDES 8.6 MG TABLET 17.2 MG GT (21:12)
[2023-04-15] VITALS (7 sets, daily range): BP systolic 114–159; BP diastolic 77–89; PULSE 65–95; RESP 16–18; TEMP 35.9–36.2; O2SAT 94–97
[2023-04-15] MEDS: SOD PHOS DI, MONO/K PHOS MONO 250 MG TABLET GT (08:24)
[2023-04-15] MEDS: ESOMEPRAZOLE 40 MG GT (08:24)
[2023-04-15] MEDS: MULTIVIT-MIN/IRON FUM/FOLIC AC 1 EACH TABLET GT (08:24)
[2023-04-15] MEDS: SODIUM CHLORIDE TAB 1,000 MG TABLET.SOL 1000 MG GT ×2 (08:25→21:14)
--- NOTE | 2023-04-15 10:18 | CHAP ---
Patient was visited by the Spiritual Care Volunteer who prayed for them. (Volunteer was in the hospital from 09:04-10:18).
[2023-04-15] MEDS: LOSARTAN 100 MG TABLET GT (21:14)
[2023-04-15] MEDS: SENNOSIDES 8.6 MG TABLET 17.2 MG GT (21:14)
[2023-04-16] VITALS (8 sets, daily range): BP systolic 103–149; BP diastolic 73–91; PULSE 70–87; RESP 16–20; TEMP 35.8–36.6; O2SAT 94–97
[2023-04-16] MEDS: ESOMEPRAZOLE 40 MG GT (09:52)
[2023-04-16] MEDS: MULTIVIT-MIN/IRON FUM/FOLIC AC 1 EACH TABLET GT (09:52)
[2023-04-16] MEDS: SOD PHOS DI, MONO/K PHOS MONO 250 MG TABLET GT (09:52)
[2023-04-16] MEDS: SODIUM CHLORIDE TAB 1,000 MG TABLET.SOL 1000 MG GT ×2 (09:53→21:10)
--- NOTE | 2023-04-16 11:45 | PD.SAPROG ---
Progress Note - SubAcute SUBJECTIVE Fever:: none GI:: none Shortness of Breath:: none GI:: no complaints Pain:: none OBJECTIVE Most recent vital signs: Last Vital Signs Temp 96.8 F 04/17/23 00:00 Pulse 79 04/17/23 00:00 Resp 18 04/17/23 00:00 BP 154/83 H 04/17/23 00:00 Pulse Ox 94 L 04/16/23 19:45 O2 Del Method Blow-by 04/15/23 06:00 O2 Flow Rate 6 04/16/23 19:45 FiO2 28 04/16/23 19:45 Neurological:: alert Speech:: nods head, mouths words (sometimes) and appropriate Answers questions:: sometimes Respiratory:: shallow breathing Cardiovascular: RRR Abdomen: soft and nontender Extremities:: deformities Decubitus:: none Tracheostomy:: to blow by Feeding per:: G tube Complaints:: none ASSESSMENT & PLAN Assessment: pt comfortable, dependant for care; Diagnosis and treatment reviewed and continued Plan: Current treatment to continue
[2023-04-16] MEDS: LOSARTAN 100 MG TABLET GT (20:21)
[2023-04-16] MEDS: SENNOSIDES 8.6 MG TABLET 17.2 MG GT (20:21)
[2023-04-17] VITALS (9 sets, daily range): BP systolic 123–154; BP diastolic 75–97; PULSE 72–86; RESP 16–20; TEMP 36–36.5; O2SAT 94–96
[2023-04-17] MEDS: ESOMEPRAZOLE 40 MG GT (08:46)
[2023-04-17] MEDS: MULTIVIT-MIN/IRON FUM/FOLIC AC 1 EACH TABLET GT (08:46)
[2023-04-17] MEDS: SOD PHOS DI, MONO/K PHOS MONO 250 MG TABLET GT (08:46)
[2023-04-17] MEDS: SODIUM CHLORIDE TAB 1,000 MG TABLET.SOL 1000 MG GT ×2 (08:46→20:45)
[2023-04-17] MEDS: LOSARTAN 100 MG TABLET GT (20:44)
[2023-04-17] MEDS: SENNOSIDES 8.6 MG TABLET 17.2 MG GT (20:44)
[2023-04-17] MEDS: MAGNESIUM HYDROXIDE 30 ML ORAL SUSP ML GT (23:00)
[2023-04-18] VITALS (7 sets, daily range): BP systolic 126–181; BP diastolic 75–93; PULSE 60–85; RESP 16–20; TEMP 36–36.7; O2SAT 93–97
[2023-04-18] MEDS: MULTIVIT-MIN/IRON FUM/FOLIC AC 1 EACH TABLET GT (09:14)
[2023-04-18] MEDS: ESOMEPRAZOLE 40 MG GT (09:14)
[2023-04-18] MEDS: SOD PHOS DI, MONO/K PHOS MONO 250 MG TABLET GT (09:14)
[2023-04-18] MEDS: SODIUM CHLORIDE TAB 1,000 MG TABLET.SOL 1000 MG GT ×2 (09:15→20:51)
[2023-04-18] MEDS: SENNOSIDES 8.6 MG TABLET 17.2 MG GT (20:51)
[2023-04-18] MEDS: LOSARTAN 100 MG TABLET GT (20:51)
[2023-04-19] VITALS (7 sets, daily range): BP systolic 134–181; BP diastolic 84–94; PULSE 63–80; RESP 16–21; TEMP 36.1–36.4; O2SAT 94–97
[2023-04-19] MEDS: ESOMEPRAZOLE 40 MG GT (09:15)
[2023-04-19] MEDS: SOD PHOS DI, MONO/K PHOS MONO 250 MG TABLET GT (09:16)
[2023-04-19] MEDS: SODIUM CHLORIDE TAB 1,000 MG TABLET.SOL 1000 MG GT ×2 (09:16→20:44)
[2023-04-19] MEDS: MULTIVIT-MIN/IRON FUM/FOLIC AC 1 EACH TABLET GT (09:16)
[2023-04-19] MEDS: LOSARTAN 100 MG TABLET GT (20:43)
[2023-04-19] MEDS: SENNOSIDES 8.6 MG TABLET 17.2 MG GT (20:44)
[2023-04-20] VITALS (7 sets, daily range): BP systolic 122–193; BP diastolic 74–94; PULSE 66–93; RESP 16–20; TEMP 36.1–36.6; O2SAT 93–98
[2023-04-20 09:08] LABS: Anion Gap 4 (7-16); BUN/Creatinine Ratio 45 Ratio (12-20); Blood Urea Nitrogen 18 mg/dL (9-23); Calcium 9.8 mg/dL (8.3-10.6); Carbon Dioxide 28.3 mMol/L (20.0-31.0); Chloride 101 mMol/L (98-107); Creatinine (Component) 0.4 mg/dL (0.6-1.3); Estimated Creatinine Clearance 104.0 mL/min (>60); Glucose 111 mg/dL (74-106); Osmolality,Calculated 269 (275-295); Potassium 4.1 mMol/L (3.4-5.1); Sodium 133 mMol/L (136-145); eGFR > 60 See Note
[2023-04-20] MEDS: ESOMEPRAZOLE 40 MG GT (09:08)
[2023-04-20] MEDS: SOD PHOS DI, MONO/K PHOS MONO 250 MG TABLET GT (09:08)
[2023-04-20] MEDS: SODIUM CHLORIDE TAB 1,000 MG TABLET.SOL 1000 MG GT ×2 (09:09→20:41)
[2023-04-20] MEDS: MULTIVIT-MIN/IRON FUM/FOLIC AC 1 EACH TABLET GT (09:09)
--- NOTE | 2023-04-20 10:22 | PC.NURSE ---
Addendum entered by oSl Caldwell RN 04/20/23 11:08: Dr gonsalez called back made aware of the BVMP results, with order received to repeat BMP in 3 days. Original Note: BMP was done today. No changes on resident's sodium level still at 133. Resident remains stable. On NS GT flush of 500 ml max q shift and on NaCl 1 gm BID. Tried to call Dr Gonsalez but unable to get hold of him. Let message on his voicemail to call us back.
--- NOTE | 2023-04-20 13:54 | PC.SS ---
Room visit: Resident is laying in bed with head of the bed elevated with call light properly placed. Resident is well groomed with no signs of distress. Resident mood is adequate with no changes. Resident continues to receive daily room visits and will be monitored for any changes in care or condition. Plan is for resident to remain in current care as resident remains total care unable to make needs known.
--- NOTE | 2023-04-20 13:55 | CHAP ---
Patient was visited by the Spiritual Care Volunteer who prayed for him. (Volunteer was in the hospital from 10:20-11:20; 12:45-13:55).
[2023-04-20] MEDS: LOSARTAN 100 MG TABLET GT (20:40)
[2023-04-20] MEDS: SENNOSIDES 8.6 MG TABLET 17.2 MG GT (20:41)
--- NOTE | 2023-04-20 22:57 | PD.SAPROG ---
Progress Note - SubAcute SUBJECTIVE Fever:: none GI:: none Shortness of Breath:: none GI:: no complaints Pain:: none OBJECTIVE Most recent vital signs: Last Vital Signs Temp 96.9 F 04/20/23 17:34 Pulse 81 04/20/23 21:12 Resp 18 04/20/23 21:12 BP 169/76 H 04/20/23 20:40 Pulse Ox 93 L 04/20/23 21:12 O2 Del Method Blow-by 04/15/23 06:00 O2 Flow Rate 6 04/20/23 21:12 FiO2 28 04/20/23 21:12 Neurological:: alert Speech:: nods head, mouths words (sometimes) and appropriate Answers questions:: sometimes Respiratory:: shallow breathing Cardiovascular: RRR Abdomen: soft and nontender Extremities:: deformities Decubitus:: none Tracheostomy:: to blow by Feeding per:: G tube Complaints:: none ASSESSMENT & PLAN Assessment: pt comfortable, dependant for care; Diagnosis and treatment reviewed and continued Plan: Current treatment to continue
[2023-04-21] VITALS (7 sets, daily range): BP systolic 120–170; BP diastolic 86–92; PULSE 61–87; RESP 16–18; TEMP 36–36.3; O2SAT 94–96
[2023-04-21] MEDS: MULTIVIT-MIN/IRON FUM/FOLIC AC 1 EACH TABLET GT (09:20)
[2023-04-21] MEDS: SOD PHOS DI, MONO/K PHOS MONO 250 MG TABLET GT (09:20)
[2023-04-21] MEDS: ESOMEPRAZOLE 40 MG GT (09:20)
[2023-04-21] MEDS: SODIUM CHLORIDE TAB 1,000 MG TABLET.SOL 1000 MG GT ×2 (09:21→20:45)
[2023-04-21] MEDS: MAGNESIUM HYDROXIDE 30 ML ORAL SUSP ML GT (09:21)
[2023-04-21] MEDS: SENNOSIDES 8.6 MG TABLET 17.2 MG GT (20:44)
[2023-04-21] MEDS: LOSARTAN 100 MG TABLET GT (20:44)
[2023-04-21] MEDS: ACETAMINOPHEN 325 MG TABLET 650 MG GT (20:45)
[2023-04-22] VITALS (9 sets, daily range): BP systolic 107–174; BP diastolic 68–97; PULSE 74–98; RESP 18–22; TEMP 35.8–36.2; O2SAT 92–95
[2023-04-22] MEDS: SODIUM CHLORIDE TAB 1,000 MG TABLET.SOL 1000 MG GT ×2 (09:20→20:45)
[2023-04-22] MEDS: SOD PHOS DI, MONO/K PHOS MONO 250 MG TABLET GT (09:20)
[2023-04-22] MEDS: ESOMEPRAZOLE 40 MG GT (09:20)
[2023-04-22] MEDS: MULTIVIT-MIN/IRON FUM/FOLIC AC 1 EACH TABLET GT (09:20)
[2023-04-22] MEDS: SENNOSIDES 8.6 MG TABLET 17.2 MG GT (20:45)
[2023-04-22] MEDS: LOSARTAN 100 MG TABLET GT (20:45)
[2023-04-23] VITALS (9 sets, daily range): BP systolic 122–173; BP diastolic 72–89; PULSE 72–103; RESP 18–20; TEMP 35.9–36.6; O2SAT 93–96
[2023-04-23] MEDS: SOD PHOS DI, MONO/K PHOS MONO 250 MG TABLET GT (08:48)
[2023-04-23] MEDS: ESOMEPRAZOLE 40 MG GT (08:48)
[2023-04-23] MEDS: SODIUM CHLORIDE TAB 1,000 MG TABLET.SOL 1000 MG GT ×2 (08:49→20:16)
[2023-04-23] MEDS: MULTIVIT-MIN/IRON FUM/FOLIC AC 1 EACH TABLET GT (08:49)
[2023-04-23 11:16] LABS: Anion Gap 7 (7-16); BUN/Creatinine Ratio 40 Ratio (12-20); Blood Urea Nitrogen 16 mg/dL (9-23); Calcium 9.7 mg/dL (8.3-10.6); Carbon Dioxide 27.8 mMol/L (20.0-31.0); Chloride 101 mMol/L (98-107); Creatinine (Component) 0.4 mg/dL (0.6-1.3); Estimated Creatinine Clearance 104.0 mL/min (>60); Glucose 110 mg/dL (74-106); Osmolality,Calculated 274 (275-295); Potassium 4.4 mMol/L (3.4-5.1); Sodium 136 mMol/L (136-145); eGFR > 60 See Note
[2023-04-23] MEDS: LOSARTAN 100 MG TABLET GT (20:16)
[2023-04-23] MEDS: SENNOSIDES 8.6 MG TABLET 17.2 MG GT (20:16)
[2023-04-23] MEDS: ACETAMINOPHEN 325 MG TABLET 650 MG GT (23:40)
[2023-04-24] VITALS (8 sets, daily range): BP systolic 129–160; BP diastolic 68–90; PULSE 53–108; RESP 17–20; TEMP 36.1–36.4; O2SAT 92–97
[2023-04-24] MEDS: MULTIVIT-MIN/IRON FUM/FOLIC AC 1 EACH TABLET GT (08:08)
[2023-04-24] MEDS: SOD PHOS DI, MONO/K PHOS MONO 250 MG TABLET GT (08:08)
[2023-04-24] MEDS: SODIUM CHLORIDE TAB 1,000 MG TABLET.SOL 1000 MG GT ×2 (08:08→20:43)
[2023-04-24] MEDS: ACETAMINOPHEN 325 MG TABLET 650 MG GT (08:08)
[2023-04-24] MEDS: ESOMEPRAZOLE 40 MG GT (08:08)
[2023-04-24] MEDS: LOSARTAN 100 MG TABLET GT (20:42)
[2023-04-24] MEDS: SENNOSIDES 8.6 MG TABLET 17.2 MG GT (20:43)
--- NOTE | 2023-04-24 22:26 | PD.SAPROG ---
Progress Note - SubAcute SUBJECTIVE Fever:: none GI:: none Shortness of Breath:: none GI:: no complaints Pain:: none OBJECTIVE Most recent vital signs: Last Vital Signs Temp 97.4 F 04/24/23 22:00 Pulse 90 04/24/23 22:00 Resp 20 04/24/23 22:00 BP 135/90 H 04/24/23 22:00 Pulse Ox 94 L 04/24/23 19:03 O2 Del Method Blow-by 04/23/23 17:43 O2 Flow Rate 6 04/24/23 19:03 FiO2 28 04/24/23 19:03 Neurological:: alert Speech:: nods head, mouths words (sometimes) and appropriate Answers questions:: sometimes Respiratory:: shallow breathing Cardiovascular: RRR Abdomen: soft and nontender Extremities:: deformities Decubitus:: none Tracheostomy:: to blow by Feeding per:: G tube Complaints:: none ASSESSMENT & PLAN Assessment: pt comfortable, dependant for care; Diagnosis and treatment reviewed and continued Plan: Current treatment to continue
[2023-04-25] VITALS (9 sets, daily range): BP systolic 107–177; BP diastolic 59–95; PULSE 68–90; RESP 17–22; TEMP 35.9–36.6; O2SAT 94–98
[2023-04-25] MEDS: ESOMEPRAZOLE 40 MG GT (09:26)
[2023-04-25] MEDS: MULTIVIT-MIN/IRON FUM/FOLIC AC 1 EACH TABLET GT (09:26)
[2023-04-25] MEDS: SODIUM CHLORIDE TAB 1,000 MG TABLET.SOL 1000 MG GT ×2 (09:26→20:39)
[2023-04-25] MEDS: SOD PHOS DI, MONO/K PHOS MONO 250 MG TABLET GT (09:26)
--- NOTE | 2023-04-25 17:42 | PC.CWCCOMPLE ---
Glass Calibrator Pharmacist MRR
[2023-04-25] MEDS: LOSARTAN 100 MG TABLET GT (20:37)
[2023-04-25] MEDS: SENNOSIDES 8.6 MG TABLET 17.2 MG GT (20:38)
[2023-04-25] MEDS: ACETAMINOPHEN 325 MG TABLET 650 MG GT (23:13)
[2023-04-26] VITALS (8 sets, daily range): BP systolic 123–158; BP diastolic 80–88; PULSE 54–79; RESP 16–19; TEMP 36–36.4; O2SAT 96–99
[2023-04-26] MEDS: ESOMEPRAZOLE 40 MG GT (08:41)
[2023-04-26] MEDS: MULTIVIT-MIN/IRON FUM/FOLIC AC 1 EACH TABLET GT (08:41)
[2023-04-26] MEDS: SODIUM CHLORIDE TAB 1,000 MG TABLET.SOL 1000 MG GT ×2 (08:41→20:41)
[2023-04-26] MEDS: SOD PHOS DI, MONO/K PHOS MONO 250 MG TABLET GT (08:41)
--- NOTE | 2023-04-26 14:39 | CHAP ---
11:00 AM visited by spiritual care volunteer. Patient sleeping peacefully. She provided a silent prayer by patient bed .
[2023-04-26] MEDS: SENNOSIDES 8.6 MG TABLET 17.2 MG GT (20:40)
[2023-04-26] MEDS: LOSARTAN 100 MG TABLET GT (20:40)
[2023-04-27] VITALS (10 sets, daily range): BP systolic 116–178; BP diastolic 65–90; PULSE 64–106; RESP 16–19; TEMP 36–36.3; O2SAT 93–99
[2023-04-27] MEDS: ESOMEPRAZOLE 40 MG GT (08:54)
[2023-04-27] MEDS: MULTIVIT-MIN/IRON FUM/FOLIC AC 1 EACH TABLET GT (08:54)
[2023-04-27] MEDS: SOD PHOS DI, MONO/K PHOS MONO 250 MG TABLET GT (08:54)
[2023-04-27] MEDS: SODIUM CHLORIDE TAB 1,000 MG TABLET.SOL 1000 MG GT ×2 (08:54→20:11)
--- NOTE | 2023-04-27 14:29 | PC.SS ---
Room change: Resident was seen in activities via bed. Resident is well groomed showing no signs of distress. Resident enjoys engaging with staff, she is showing no changes in mood or behavior. Resident will remain in current care as she has no changes in care or condition. She will continue have daily room visits and will be monitored for any changes.
--- NOTE | 2023-04-27 15:15 | PC.SS ---
Room visit: Resident is laying in bed with head of the bed elevated with call light properly placed. Resident is not showing any changes in mood or behavior. Resident will remain in current care as there are no changes in care or condition, resident will continue to be evaluated as appropriate for DC to lower level of care. This SSD will continue to make daily contact and offer support as needed.
--- NOTE | 2023-04-27 15:15 | PC.SS ---
Room Change: Resident moved from room 119B to room 117B, this SSD called and notified resident daughter. No questions or concerns at this time.
[2023-04-27] MEDS: LOSARTAN 100 MG TABLET GT (20:10)
[2023-04-27] MEDS: SENNOSIDES 8.6 MG TABLET 17.2 MG GT (20:11)
[2023-04-28] VITALS (7 sets, daily range): BP systolic 119–164; BP diastolic 74–84; PULSE 66–71; RESP 18–19; TEMP 35.6–36.5; O2SAT 96–98
[2023-04-28] MEDS: ESOMEPRAZOLE 40 MG GT (09:26)
[2023-04-28] MEDS: SOD PHOS DI, MONO/K PHOS MONO 250 MG TABLET GT (09:26)
[2023-04-28] MEDS: MULTIVIT-MIN/IRON FUM/FOLIC AC 1 EACH TABLET GT (09:26)
[2023-04-28] MEDS: SODIUM CHLORIDE TAB 1,000 MG TABLET.SOL 1000 MG GT ×2 (09:27→20:18)
[2023-04-28] MEDS: LOSARTAN 100 MG TABLET GT (20:17)
[2023-04-28] MEDS: SENNOSIDES 8.6 MG TABLET 17.2 MG GT (20:18)
--- NOTE | 2023-04-28 22:53 | PD.SAPROG ---
Progress Note - SubAcute SUBJECTIVE Fever:: none GI:: none Shortness of Breath:: none GI:: no complaints Pain:: none OBJECTIVE Most recent vital signs: Last Vital Signs Temp 97.6 F 04/30/23 22:00 Pulse 78 04/30/23 22:00 Resp 20 04/30/23 22:00 BP 128/78 04/30/23 22:00 Pulse Ox 95 04/30/23 17:49 O2 Del Method Blow-by 04/30/23 17:49 O2 Flow Rate 6 04/30/23 19:20 FiO2 28 04/30/23 19:20 Neurological:: alert Speech:: nods head, mouths words (sometimes) and appropriate Answers questions:: sometimes Respiratory:: shallow breathing Cardiovascular: RRR Abdomen: soft and nontender Extremities:: deformities Decubitus:: none Tracheostomy:: to blow by Feeding per:: G tube Complaints:: none ASSESSMENT & PLAN Assessment: pt comfortable, dependant for care; Diagnosis and treatment reviewed and continued Plan: Current treatment to continue
[2023-04-29] VITALS (11 sets, daily range): BP systolic 116–156; BP diastolic 77–91; PULSE 60–116; RESP 17–22; TEMP 35.7–37.7; O2SAT 97–99
[2023-04-29] MEDS: SODIUM CHLORIDE TAB 1,000 MG TABLET.SOL 1000 MG GT ×2 (09:50→20:20)
[2023-04-29] MEDS: SOD PHOS DI, MONO/K PHOS MONO 250 MG TABLET GT (09:51)
[2023-04-29] MEDS: ESOMEPRAZOLE 40 MG GT (09:51)
[2023-04-29] MEDS: MULTIVIT-MIN/IRON FUM/FOLIC AC 1 EACH TABLET GT (09:51)
[2023-04-29] MEDS: ACETAMINOPHEN 325 MG TABLET 650 MG GT (09:52)
[2023-04-29] MEDS: SENNOSIDES 8.6 MG TABLET 17.2 MG GT (20:20)
[2023-04-29] MEDS: LOSARTAN 100 MG TABLET GT (20:20)
[2023-04-30] VITALS (8 sets, daily range): BP systolic 126–150; BP diastolic 67–86; PULSE 78–95; RESP 17–20; TEMP 35.9–36.4; O2SAT 95–99
[2023-04-30] MEDS: SOD PHOS DI, MONO/K PHOS MONO 250 MG TABLET GT (09:41)
[2023-04-30] MEDS: ESOMEPRAZOLE 40 MG GT (09:41)
[2023-04-30] MEDS: MULTIVIT-MIN/IRON FUM/FOLIC AC 1 EACH TABLET GT (09:42)
[2023-04-30] MEDS: SODIUM CHLORIDE TAB 1,000 MG TABLET.SOL 1000 MG GT ×2 (09:42→20:04)
--- NOTE | 2023-04-30 11:03 | PC.SS ---
Room visit: This SSD followed up with resident regarding room change, resident is able to answer with head nod to simple yes/no questions. Resident asked if she was ok in new room with a new roommate, she nodded her head yes. Resident and previous roommate both moved in 117 with a new roommate. Resident is not showing any changes in mood or behavior. She continues to come out of room for activities and continues to get room visits. No concerns from [facility] regarding room change.
--- NOTE | 2023-04-30 17:30 | PC.NURSE ---
Staffs went to resident's room at around 14:20 for the afternoon rounds and noted that resident's trach was out still attached to trach collar. Resident remains stable, alert and responsive. Respiration even and unlabored. RT was called and inserted resident's trach without difficulty and suctioned PRN. Denies any pain or discomfort. V/S as follows: 127/76, 83, 18, 97.6, O2 sat 95%. Notified Dr Gonsalez , no new orders made. Tried to call resident's son Rick but unable to get hold of him. Left message on his voicemail.
--- NOTE | 2023-04-30 17:54 | PC.NURSE ---
Staffs went to resident's room at around 16:20 for the afternoon rounds and noted that resident's trach was out, still connected to trach collar. Resident remains stable, alert and responsive. Respiration even and unlabored. RT was called and inserted resident's trach without difficulty and suctioned PRN. Denies any pain or discomfort. V/S as follows: 127/76, 83, 18, 97.6, O2 sat 95%. Notified Dr triana, no new orders made. Tried to call resident's son Rick but unable to get hold of him. Left message on his voice mail
[2023-04-30] MEDS: LOSARTAN 100 MG TABLET GT (20:03)
[2023-04-30] MEDS: SENNOSIDES 8.6 MG TABLET 17.2 MG GT (20:04)
--- NOTE | 2023-04-30 22:53 | ESPR_ITS ---
Progress Note - SubAcute SUBJECTIVE Fever:: none GI:: none Shortness of Breath:: none GI:: no complaints Pain:: none OBJECTIVE Most recent vital signs: Last Vital Signs Temp 97.6 F 04/30/23 22:00 Pulse 78 04/30/23 22:00 Resp 20 04/30/23 22:00 BP 128/78 04/30/23 22:00 Pulse Ox 95 04/30/23 17:49 O2 Del Method Blow-by 04/30/23 17:49 O2 Flow Rate 6 04/30/23 19:20 FiO2 28 04/30/23 19:20 Neurological:: alert Speech:: nods head, mouths words (sometimes) and appropriate Answers questions:: sometimes Respiratory:: shallow breathing Cardiovascular: RRR Abdomen: soft and nontender Extremities:: deformities Decubitus:: none Tracheostomy:: to blow by Feeding per:: G tube Complaints:: none ASSESSMENT & PLAN Assessment: pt comfortable, dependant for care; Tracheostomy was displaced accidently by pt and was successfully replaced by management technician. Diagnosis and treatment reviewed and continued Plan: Current treatment to continue
[2023-05-01] VITALS (8 sets, daily range): BP systolic 109–156; BP diastolic 67–90; PULSE 66–86; RESP 18–20; TEMP 36.1–36.6; O2SAT 96–98
[2023-05-01 06:31] LABS: Albumin, Serum 4.0 gm/dL (3.4-4.8); Anion Gap 6 (7-16); BUN/Creatinine Ratio 40 Ratio (12-20); Blood Urea Nitrogen 20 mg/dL (9-23); Calcium 9.6 mg/dL (8.3-10.6); Calcium (Corrected) 9.6 mg/dL (8.5-10.1); Carbon Dioxide 28.0 mMol/L (20.0-31.0); Chloride 105 mMol/L (98-107); Creatinine (Component) 0.5 mg/dL (0.6-1.3); Estimated Creatinine Clearance 83.2 mL/min (>60); Glucose 120 mg/dL (74-106); Osmolality,Calculated 281 (275-295); Phosphorous 4.1 mg/dL (2.4-5.1); Potassium 4.5 mMol/L (3.4-5.1); Sodium 139 mMol/L (136-145); eGFR > 60 See Note
[2023-05-01] MEDS: MULTIVIT-MIN/IRON FUM/FOLIC AC 1 EACH TABLET GT (09:23)
[2023-05-01] MEDS: SOD PHOS DI, MONO/K PHOS MONO 250 MG TABLET GT (09:23)
[2023-05-01] MEDS: ESOMEPRAZOLE 40 MG GT (09:23)
[2023-05-01] MEDS: SODIUM CHLORIDE TAB 1,000 MG TABLET.SOL 1000 MG GT ×2 (09:24→20:05)
--- NOTE | 2023-05-01 11:13 | PC.SS ---
This SSD follow up with resident regarding room change, Lic nurse and TICKET WORKER both in room during follow up. Both deny resident being unhappy or sad with room change. Lic stated she asked resident if she is happy and like the room she said resident nodded head yes. Both lic and TICKET WORKER said both resident and her previous roommate are in the same room together and still see each other and and both attend activities together. Resident currently is asleep, she appears comfortable and is well groomed showing no changes in mood or behavior. This SSD will follow up with resident and continue to monitor any changes in mood or behavior related to room change.
[2023-05-01] MEDS: LOSARTAN 100 MG TABLET GT (20:05)
[2023-05-01] MEDS: SENNOSIDES 8.6 MG TABLET 17.2 MG GT (20:05)
[2023-05-02] VITALS (8 sets, daily range): BP systolic 138–177; BP diastolic 75–90; PULSE 71–82; RESP 18–20; TEMP 36.1–36.6; O2SAT 97–98
[2023-05-02] MEDS: ESOMEPRAZOLE 40 MG GT (09:24)
[2023-05-02] MEDS: SOD PHOS DI, MONO/K PHOS MONO 250 MG TABLET GT (09:24)
[2023-05-02] MEDS: SODIUM CHLORIDE TAB 1,000 MG TABLET.SOL 1000 MG GT ×2 (09:25→20:30)
[2023-05-02] MEDS: MULTIVIT-MIN/IRON FUM/FOLIC AC 1 EACH TABLET GT (09:25)
[2023-05-02] MEDS: LOSARTAN 100 MG TABLET GT (20:27)
[2023-05-02] MEDS: SENNOSIDES 8.6 MG TABLET 17.2 MG GT (20:30)
[2023-05-03] VITALS (7 sets, daily range): BP systolic 114–161; BP diastolic 74–89; PULSE 66–85; RESP 14–20; TEMP 36–36.5; O2SAT 94–99
[2023-05-03] MEDS: SODIUM CHLORIDE TAB 1,000 MG TABLET.SOL 1000 MG GT ×2 (09:11→20:25)
[2023-05-03] MEDS: ESOMEPRAZOLE 40 MG GT (09:11)
[2023-05-03] MEDS: MULTIVIT-MIN/IRON FUM/FOLIC AC 1 EACH TABLET GT (09:11)
[2023-05-03] MEDS: SOD PHOS DI, MONO/K PHOS MONO 250 MG TABLET GT (09:11)
--- NOTE | 2023-05-03 14:03 | CHAP ---
11:00 AM Visited by spiritual care volunteer Provided prayer for Patient.
[2023-05-03] MEDS: LOSARTAN 100 MG TABLET GT (20:24)
[2023-05-03] MEDS: SENNOSIDES 8.6 MG TABLET 17.2 MG GT (20:24)
[2023-05-04 06:00] VITALS: BP 128/84; PULSE 77; RESP 19; TEMP 36.3; O2SAT 95
[2023-05-04 07:40] VITALS: PULSE 72; RESP 18; O2SAT 95
[2023-05-04] MEDS: SODIUM CHLORIDE TAB 1,000 MG TABLET.SOL 1000 MG GT ×2 (08:07→21:30)
[2023-05-04] MEDS: MULTIVIT-MIN/IRON FUM/FOLIC AC 1 EACH TABLET GT (08:07)
[2023-05-04] MEDS: SOD PHOS DI, MONO/K PHOS MONO 250 MG TABLET GT (08:07)
[2023-05-04] MEDS: ESOMEPRAZOLE 40 MG GT (08:07)
[2023-05-04 12:00] VITALS: BP 158/58; PULSE 68; RESP 17; TEMP 36.5
--- NOTE | 2023-05-04 14:34 | PC.SS ---
Resident is laying in bed with head of the bed elevated with call light properly placed. Resident is well groomed showing no signs of distress. Resident will remain in current care as there are no changes in care or condition. Resident will continue to receive daily room visits to monitor moods and behavior.
[2023-05-04 18:00] VITALS: BP 136/81; PULSE 80; RESP 18; TEMP 36.2
[2023-05-04 19:11] VITALS: PULSE 61; RESP 18; O2SAT 96
[2023-05-04 21:29] VITALS: BP 138/79; PULSE 82
[2023-05-04] MEDS: LOSARTAN 100 MG TABLET GT (21:29)
[2023-05-04] MEDS: SENNOSIDES 8.6 MG TABLET 17.2 MG GT (21:30)
[2023-05-04] MEDS: MAGNESIUM HYDROXIDE 30 ML ORAL SUSP ML GT (21:32)
[2023-05-05] VITALS (7 sets, daily range): BP systolic 136–181; BP diastolic 76–89; PULSE 68–86; RESP 16–20; TEMP 36–36.4; O2SAT 94–97
[2023-05-05] MEDS: ESOMEPRAZOLE 40 MG GT (08:59)
[2023-05-05] MEDS: SOD PHOS DI, MONO/K PHOS MONO 250 MG TABLET GT (08:59)
[2023-05-05] MEDS: SODIUM CHLORIDE TAB 1,000 MG TABLET.SOL 1000 MG GT ×2 (08:59→20:12)
[2023-05-05] MEDS: MULTIVIT-MIN/IRON FUM/FOLIC AC 1 EACH TABLET GT (08:59)
[2023-05-05] MEDS: LOSARTAN 100 MG TABLET GT (20:12)
[2023-05-05] MEDS: SENNOSIDES 8.6 MG TABLET 17.2 MG GT (20:12)
--- NOTE | 2023-05-05 20:37 | PD.SAPROG ---
Progress Note - SubAcute SUBJECTIVE Fever:: none GI:: none Shortness of Breath:: none GI:: no complaints Pain:: none OBJECTIVE Most recent vital signs: Last Vital Signs Temp 96.8 F 05/05/23 18:00 Pulse 77 05/05/23 20:12 Resp 16 05/05/23 18:00 BP 158/89 H 05/05/23 20:12 Pulse Ox 94 L 05/05/23 18:00 O2 Del Method Blow-by 05/03/23 05:30 O2 Flow Rate 6 05/05/23 07:43 FiO2 28 05/05/23 07:43 Neurological:: alert Speech:: nods head, mouths words (sometimes) and appropriate Answers questions:: sometimes Respiratory:: shallow breathing Cardiovascular: RRR Abdomen: soft and nontender Extremities:: deformities Decubitus:: none Tracheostomy:: to blow by Feeding per:: G tube Complaints:: none ASSESSMENT & PLAN Assessment: pt comfortable, dependant for care; treatment reviewed and continued Plan: Current treatment to continue
[2023-05-06] VITALS (7 sets, daily range): BP systolic 116–178; BP diastolic 71–87; PULSE 60–72; RESP 17–19; TEMP 35.8–36.4; O2SAT 93–97
[2023-05-06] MEDS: MULTIVIT-MIN/IRON FUM/FOLIC AC 1 EACH TABLET GT (09:18)
[2023-05-06] MEDS: SOD PHOS DI, MONO/K PHOS MONO 250 MG TABLET GT (09:18)
[2023-05-06] MEDS: SODIUM CHLORIDE TAB 1,000 MG TABLET.SOL 1000 MG GT ×2 (09:18→20:28)
[2023-05-06] MEDS: ESOMEPRAZOLE 40 MG GT (09:18)
--- NOTE | 2023-05-06 12:43 | CHAP ---
Patient was visited by the Spiritual Care Volunteer who prayed for them outside of room. (Volunteer was in the hospital from 11:05-12:43)
[2023-05-06] MEDS: LOSARTAN 100 MG TABLET GT (20:26)
[2023-05-06] MEDS: SENNOSIDES 8.6 MG TABLET 17.2 MG GT (20:28)
[2023-05-07] VITALS: BP 156/86; PULSE 74; RESP 19; TEMP 36
[2023-05-07 06:00] VITALS: BP 146/85; PULSE 65; RESP 20; TEMP 36.1; O2SAT 97
[2023-05-07 08:10] VITALS: PULSE 61; RESP 18; O2SAT 98
[2023-05-07] MEDS: ESOMEPRAZOLE 40 MG GT (08:18)
[2023-05-07] MEDS: MULTIVIT-MIN/IRON FUM/FOLIC AC 1 EACH TABLET GT (08:19)
[2023-05-07] MEDS: SOD PHOS DI, MONO/K PHOS MONO 250 MG TABLET GT (08:19)
[2023-05-07] MEDS: SODIUM CHLORIDE TAB 1,000 MG TABLET.SOL 1000 MG GT ×2 (08:20→20:38)
[2023-05-07 12:00] VITALS: BP 131/75; PULSE 65; RESP 16; TEMP 36
[2023-05-07] MEDS: FLU VACC QS 2023-24 (6 MOS UP) 60 MCG/0.5 ML VIAL IMi (12:32)
[2023-05-07 17:00] VITALS: BP 130/80; PULSE 58; RESP 16; TEMP 36.1
[2023-05-07 20:38] VITALS: BP 148/83; PULSE 65
[2023-05-07] MEDS: LOSARTAN 100 MG TABLET GT (20:38)
[2023-05-07] MEDS: SENNOSIDES 8.6 MG TABLET 17.2 MG GT (20:38)
[2023-05-08] VITALS (8 sets, daily range): BP systolic 106–130; BP diastolic 66–88; PULSE 58–82; RESP 18–19; TEMP 35.9–36.3; O2SAT 93–98
--- NOTE | 2023-05-08 06:06 | PC.NURSE ---
S/p influenza vaccine, no dealyed adverse reactions noted.
[2023-05-08] MEDS: ESOMEPRAZOLE 40 MG GT (08:34)
[2023-05-08] MEDS: SODIUM CHLORIDE TAB 1,000 MG TABLET.SOL 1000 MG GT ×2 (08:34→20:38)
[2023-05-08] MEDS: MULTIVIT-MIN/IRON FUM/FOLIC AC 1 EACH TABLET GT (08:34)
[2023-05-08] MEDS: SOD PHOS DI, MONO/K PHOS MONO 250 MG TABLET GT (08:34)
[2023-05-08] MEDS: LOSARTAN 100 MG TABLET GT (20:37)
[2023-05-08] MEDS: SENNOSIDES 8.6 MG TABLET 17.2 MG GT (20:38)
[2023-05-09] VITALS (8 sets, daily range): BP systolic 123–150; BP diastolic 72–86; PULSE 51–84; RESP 16–19; TEMP 36.1–36.4; O2SAT 97–98
[2023-05-09] MEDS: SODIUM CHLORIDE TAB 1,000 MG TABLET.SOL 1000 MG GT ×2 (08:15→20:45)
[2023-05-09] MEDS: SOD PHOS DI, MONO/K PHOS MONO 250 MG TABLET GT (08:15)
[2023-05-09] MEDS: MULTIVIT-MIN/IRON FUM/FOLIC AC 1 EACH TABLET GT (08:15)
[2023-05-09] MEDS: ESOMEPRAZOLE 40 MG GT (08:15)
[2023-05-09] MEDS: LOSARTAN 100 MG TABLET GT (20:44)
[2023-05-09] MEDS: SENNOSIDES 8.6 MG TABLET 17.2 MG GT (20:45)
--- NOTE | 2023-05-09 22:34 | PD.SAPROG ---
Progress Note - SubAcute SUBJECTIVE Fever:: none GI:: none Shortness of Breath:: none GI:: no complaints Pain:: none OBJECTIVE Most recent vital signs: Last Vital Signs Temp 97.1 F 05/09/23 17:54 Pulse 65 05/09/23 20:44 Resp 18 05/09/23 19:20 BP 123/84 05/09/23 20:44 Pulse Ox 98 05/09/23 19:20 O2 Del Method Blow-by 05/09/23 05:23 O2 Flow Rate 6 05/09/23 19:20 FiO2 28 05/09/23 19:20 Neurological:: alert Speech:: nods head, mouths words (sometimes) and appropriate Answers questions:: sometimes Respiratory:: shallow breathing Cardiovascular: RRR Abdomen: soft and nontender Extremities:: deformities Decubitus:: none Tracheostomy:: to blow by Feeding per:: G tube Complaints:: none ASSESSMENT & PLAN Assessment: pt comfortable, dependant for care; treatment reviewed and continued Plan: Current treatment to continue
[2023-05-10 05:32] VITALS: BP 117/71; PULSE 57; RESP 18; TEMP 36.5; O2SAT 98
[2023-05-10] MEDS: MULTIVIT-MIN/IRON FUM/FOLIC AC 1 EACH TABLET GT (08:06)
[2023-05-10] MEDS: SODIUM CHLORIDE TAB 1,000 MG TABLET.SOL 1000 MG GT ×2 (08:06→20:46)
[2023-05-10] MEDS: SOD PHOS DI, MONO/K PHOS MONO 250 MG TABLET GT (08:06)
[2023-05-10] MEDS: ESOMEPRAZOLE 40 MG GT (08:06)
[2023-05-10 12:00] VITALS: BP 162/81; PULSE 64; RESP 20; TEMP 35.9
--- NOTE | 2023-05-10 13:47 | CHAP ---
11:00 AM Visited by spiritual care volunteer Provided prayer for Patient.
[2023-05-10 18:00] VITALS: BP 152/87; PULSE 92; RESP 18; TEMP 36.1; O2SAT 93
[2023-05-10 20:45] VITALS: BP 141/86; PULSE 80
[2023-05-10] MEDS: LOSARTAN 100 MG TABLET GT (20:45)
[2023-05-10] MEDS: SENNOSIDES 8.6 MG TABLET 17.2 MG GT (20:46)
[2023-05-11] VITALS (7 sets, daily range): BP systolic 114–144; BP diastolic 62–83; PULSE 55–72; RESP 16–20; TEMP 36.1–36.5; O2SAT 94–98
[2023-05-11] MEDS: MULTIVIT-MIN/IRON FUM/FOLIC AC 1 EACH TABLET GT (08:01)
[2023-05-11] MEDS: SODIUM CHLORIDE TAB 1,000 MG TABLET.SOL 1000 MG GT ×2 (08:01→20:48)
[2023-05-11] MEDS: SOD PHOS DI, MONO/K PHOS MONO 250 MG TABLET GT (08:01)
[2023-05-11] MEDS: ESOMEPRAZOLE 40 MG GT (08:01)
[2023-05-11] MEDS: LOSARTAN 100 MG TABLET GT (20:22)
[2023-05-11] MEDS: SENNOSIDES 8.6 MG TABLET 17.2 MG GT (20:43)
[2023-05-12] VITALS (8 sets, daily range): BP systolic 99–163; BP diastolic 69–84; PULSE 56–82; RESP 16–20; TEMP 36.2–36.4; O2SAT 95–99
[2023-05-12] MEDS: MULTIVIT-MIN/IRON FUM/FOLIC AC 1 EACH TABLET GT (09:44)
[2023-05-12] MEDS: SODIUM CHLORIDE TAB 1,000 MG TABLET.SOL 1000 MG GT ×2 (09:44→20:18)
[2023-05-12] MEDS: ESOMEPRAZOLE 40 MG GT (09:44)
[2023-05-12] MEDS: SOD PHOS DI, MONO/K PHOS MONO 250 MG TABLET GT (09:44)
[2023-05-12] MEDS: LOSARTAN 100 MG TABLET GT (20:17)
[2023-05-12] MEDS: SENNOSIDES 8.6 MG TABLET 17.2 MG GT (20:18)
[2023-05-13 05:23] VITALS: BP 101/71; PULSE 64; RESP 18; TEMP 36.4; O2SAT 97
[2023-05-13 05:50] VITALS: PULSE 76; RESP 20; O2SAT 95
[2023-05-13] MEDS: MULTIVIT-MIN/IRON FUM/FOLIC AC 1 EACH TABLET GT (09:50)
[2023-05-13] MEDS: SODIUM CHLORIDE TAB 1,000 MG TABLET.SOL 1000 MG GT ×2 (09:50→20:08)
[2023-05-13] MEDS: ESOMEPRAZOLE 40 MG GT (09:50)
[2023-05-13] MEDS: SOD PHOS DI, MONO/K PHOS MONO 250 MG TABLET GT (09:50)
--- NOTE | 2023-05-13 10:45 | CHAP ---
Patient was visited by the Spiritual Care Volunteer who prayed for them outside the room. (Volunteer was in the hospital 09:50-10:45)
[2023-05-13 12:00] VITALS: BP 155/68; PULSE 59; RESP 16; TEMP 35.7
--- NOTE | 2023-05-13 17:13 | PD.SAPROG ---
Progress Note - SubAcute SUBJECTIVE Fever:: none GI:: none Shortness of Breath:: none GI:: no complaints Pain:: none OBJECTIVE Most recent vital signs: Last Vital Signs Temp 96.3 F L 05/13/23 12:00 Pulse 59 L 05/13/23 12:00 Resp 16 05/13/23 12:00 BP 155/68 H 05/13/23 12:00 Pulse Ox 95 05/13/23 05:50 O2 Del Method Blow-by 05/13/23 05:23 O2 Flow Rate 6 05/13/23 05:50 FiO2 28 05/13/23 05:50 Neurological:: alert Speech:: nods head, mouths words (sometimes) and appropriate Answers questions:: sometimes Respiratory:: shallow breathing Cardiovascular: RRR Abdomen: soft and nontender Extremities:: deformities Decubitus:: none Tracheostomy:: to blow by Feeding per:: G tube Complaints:: none ASSESSMENT & PLAN Assessment: pt comfortable, dependant for care; treatment reviewed and continued Plan: Current treatment to continue
[2023-05-13 18:00] VITALS: BP 171/79; PULSE 59; RESP 17; TEMP 35.7; O2SAT 100
[2023-05-13 20:07] VITALS: BP 139/80; PULSE 64
[2023-05-13] MEDS: LOSARTAN 100 MG TABLET GT (20:07)
[2023-05-13] MEDS: SENNOSIDES 8.6 MG TABLET 17.2 MG GT (20:08)
[2023-05-13 21:35] VITALS: PULSE 89; RESP 20; O2SAT 98
[2023-05-14] VITALS (9 sets, daily range): BP systolic 99–150; BP diastolic 60–88; PULSE 61–77; RESP 16–20; TEMP 35.9–36.2; O2SAT 95–99
[2023-05-14] MEDS: ESOMEPRAZOLE 40 MG GT (08:18)
[2023-05-14] MEDS: SOD PHOS DI, MONO/K PHOS MONO 250 MG TABLET GT (08:18)
[2023-05-14] MEDS: MULTIVIT-MIN/IRON FUM/FOLIC AC 1 EACH TABLET GT (08:18)
[2023-05-14] MEDS: SODIUM CHLORIDE TAB 1,000 MG TABLET.SOL 1000 MG GT ×2 (08:18→20:27)
[2023-05-14] MEDS: MAGNESIUM HYDROXIDE 30 ML ORAL SUSP ML GT (09:30)
[2023-05-14] MEDS: LOSARTAN 100 MG TABLET GT (20:26)
[2023-05-14] MEDS: SENNOSIDES 8.6 MG TABLET 17.2 MG GT (20:27)
[2023-05-15 06:00] VITALS: BP 147/78; PULSE 68; PULSE 72; RESP 16; RESP 20; TEMP 36; O2SAT 97; O2SAT 98
[2023-05-15] MEDS: SOD PHOS DI, MONO/K PHOS MONO 250 MG TABLET GT (09:32)
[2023-05-15] MEDS: ESOMEPRAZOLE 40 MG GT (09:32)
[2023-05-15] MEDS: MULTIVIT-MIN/IRON FUM/FOLIC AC 1 EACH TABLET GT (09:32)
[2023-05-15] MEDS: SODIUM CHLORIDE TAB 1,000 MG TABLET.SOL 1000 MG GT ×2 (09:32→21:15)
[2023-05-15 12:00] VITALS: BP 167/79; PULSE 68; RESP 18; TEMP 36.2
[2023-05-15 18:00] VITALS: BP 169/95; PULSE 70; RESP 18; TEMP 35.9; O2SAT 95
[2023-05-15 19:30] VITALS: PULSE 64; RESP 20; O2SAT 95
[2023-05-15 20:00] VITALS: PULSE 68; RESP 17; O2SAT 95
[2023-05-15 21:14] VITALS: BP 113/71; PULSE 68
[2023-05-15] MEDS: LOSARTAN 100 MG TABLET GT (21:14)
[2023-05-16] VITALS: BP 162/82; PULSE 72; RESP 17; TEMP 36.1
[2023-05-16 05:59] VITALS: BP 144/75; PULSE 63; RESP 17; TEMP 35.7; O2SAT 93
[2023-05-16 08:05] VITALS: PULSE 77; RESP 18; RESP 20; O2SAT 96
[2023-05-16] MEDS: MULTIVIT-MIN/IRON FUM/FOLIC AC 1 EACH TABLET GT (09:03)
[2023-05-16] MEDS: SODIUM CHLORIDE TAB 1,000 MG TABLET.SOL 1000 MG GT ×2 (09:03→20:21)
[2023-05-16] MEDS: ESOMEPRAZOLE 40 MG GT (09:03)
[2023-05-16] MEDS: SOD PHOS DI, MONO/K PHOS MONO 250 MG TABLET GT (09:03)
[2023-05-16] MEDS: ACETAMINOPHEN 325 MG TABLET 650 MG GT (09:05)
--- NOTE | 2023-05-16 10:30 | PC.SS ---
This SSD witnessed resident using her right hand on her left wrist, she was seen twisting her L wrist then seen with her R index finger pulling her L hand fingers open and scratching her L palm. Resident was asked if she had pain, she nodded her head yes. This SSD informed community relations representative and charge nurse of the observation and resident nodding head yes to pain on L hand and wrist.
[2023-05-16 12:00] VITALS: BP 144/87; PULSE 61; RESP 18; TEMP 36.1
[2023-05-16 18:00] VITALS: BP 152/88; PULSE 72; RESP 19; TEMP 36.2
[2023-05-16 20:21] VITALS: BP 145/87; PULSE 56
[2023-05-16] MEDS: SENNOSIDES 8.6 MG TABLET 17.2 MG GT (20:21)
[2023-05-16] MEDS: LOSARTAN 100 MG TABLET GT (20:21)
[2023-05-17] VITALS (7 sets, daily range): BP systolic 98–151; BP diastolic 72–83; PULSE 55–79; RESP 17–20; TEMP 36–36.3; O2SAT 97–99
[2023-05-17] MEDS: ACETAMINOPHEN 325 MG TABLET 650 MG GT (00:21)
[2023-05-17] MEDS: ESOMEPRAZOLE 40 MG GT (09:22)
[2023-05-17] MEDS: SOD PHOS DI, MONO/K PHOS MONO 250 MG TABLET GT (09:22)
[2023-05-17] MEDS: MULTIVIT-MIN/IRON FUM/FOLIC AC 1 EACH TABLET GT (09:23)
[2023-05-17] MEDS: SODIUM CHLORIDE TAB 1,000 MG TABLET.SOL 1000 MG GT ×2 (09:23→20:16)
--- NOTE | 2023-05-17 13:21 | CHAP ---
10:30 AM Visited by spiritual care volunteer provided prayer for Patient
[2023-05-17] MEDS: LOSARTAN 100 MG TABLET GT (20:15)
[2023-05-17] MEDS: SENNOSIDES 8.6 MG TABLET 17.2 MG GT (20:16)
--- NOTE | 2023-05-17 21:52 | PD.SAPROG ---
Progress Note - SubAcute SUBJECTIVE Fever:: none GI:: none Shortness of Breath:: none GI:: no complaints Pain:: none OBJECTIVE Most recent vital signs: Last Vital Signs Temp 97 F 05/17/23 17:39 Pulse 60 05/17/23 20:15 Resp 19 05/17/23 17:39 BP 149/82 H 05/17/23 20:15 Pulse Ox 98 05/17/23 17:39 O2 Del Method Blow-by 05/17/23 05:57 O2 Flow Rate 6 05/17/23 06:00 FiO2 28 05/17/23 06:00 Neurological:: alert Speech:: nods head, mouths words (sometimes) and appropriate Answers questions:: sometimes Respiratory:: shallow breathing Cardiovascular: RRR Abdomen: soft and nontender Extremities:: deformities Decubitus:: none Tracheostomy:: to blow by Feeding per:: G tube Complaints:: none ASSESSMENT & PLAN Assessment: pt comfortable, dependant for care; treatment reviewed and continued Plan: Current treatment to continue
[2023-05-18] VITALS: BP 157/87; PULSE 66; PULSE 76; RESP 19; RESP 20; TEMP 36.8; O2SAT 97
[2023-05-18 06:00] VITALS: PULSE 55; RESP 18; O2SAT 95
[2023-05-18] MEDS: ESOMEPRAZOLE 40 MG GT (09:26)
[2023-05-18] MEDS: MULTIVIT-MIN/IRON FUM/FOLIC AC 1 EACH TABLET GT (09:28)
[2023-05-18] MEDS: SOD PHOS DI, MONO/K PHOS MONO 250 MG TABLET GT (09:28)
[2023-05-18] MEDS: SODIUM CHLORIDE TAB 1,000 MG TABLET.SOL 1000 MG GT ×2 (09:28→20:51)
[2023-05-18 11:54] VITALS: BP 130/82; PULSE 59; RESP 20; TEMP 35.9
--- NOTE | 2023-05-18 12:08 | PC.SS ---
Room visit: Resident has no changes in care or condition, she remains in current care as she is not appropriate for DC to lower level of care. Resident has a heavy and complicate care regimen requires 24 hour care with max assist, [place] and family is unable to care for her at home. All needs for LTC to be met in facility. Resident will have daily room support visits.
--- NOTE | 2023-05-18 16:53 | PC.SS ---
Room visit: Resident is laying in bed with head of the bed elevated with call light properly placed with no signs of distress. Resident mood and behavior is adequate, no changes. Resident will remain in current care as this resident is total care and requires 24 hour care. Resident will have all needs met by staff and will be offered daily room visits for any support needed.
[2023-05-18 17:51] VITALS: BP 157/89; PULSE 62; RESP 18; TEMP 35.9; O2SAT 95
[2023-05-18 19:30] VITALS: PULSE 62; RESP 18; O2SAT 96
[2023-05-18 20:50] VITALS: BP 104/57; PULSE 61
[2023-05-18] MEDS: SENNOSIDES 8.6 MG TABLET 17.2 MG GT (20:50)
[2023-05-19] VITALS (7 sets, daily range): BP systolic 124–151; BP diastolic 71–87; PULSE 48–68; RESP 17–20; TEMP 35.9–36.1; O2SAT 96–98
[2023-05-19] MEDS: ESOMEPRAZOLE 40 MG GT (09:30)
[2023-05-19] MEDS: SOD PHOS DI, MONO/K PHOS MONO 250 MG TABLET GT (09:30)
[2023-05-19] MEDS: SODIUM CHLORIDE TAB 1,000 MG TABLET.SOL 1000 MG GT ×2 (09:31→20:19)
[2023-05-19] MEDS: MULTIVIT-MIN/IRON FUM/FOLIC AC 1 EACH TABLET GT (09:31)
[2023-05-19] MEDS: LOSARTAN 100 MG TABLET GT (20:18)
[2023-05-19] MEDS: SENNOSIDES 8.6 MG TABLET 17.2 MG GT (20:19)
[2023-05-20] VITALS: BP 150/67; PULSE 55; RESP 20; TEMP 36.2
[2023-05-20 06:00] VITALS: BP 155/64; PULSE 60; PULSE 64; RESP 16; RESP 18; TEMP 36.1; O2SAT 95; O2SAT 97
[2023-05-20] MEDS: MULTIVIT-MIN/IRON FUM/FOLIC AC 1 EACH TABLET GT (09:00)
[2023-05-20] MEDS: SOD PHOS DI, MONO/K PHOS MONO 250 MG TABLET GT (09:00)
[2023-05-20] MEDS: SODIUM CHLORIDE TAB 1,000 MG TABLET.SOL 1000 MG GT ×2 (09:00→21:17)
[2023-05-20] MEDS: ESOMEPRAZOLE 40 MG GT (09:00)
[2023-05-20 11:21] VITALS: BP 137/80; PULSE 60; RESP 19; TEMP 35.9
--- NOTE | 2023-05-20 11:45 | CHAP ---
Patient was prayed for outside of room by the Spiritual Care Volunteer. (Volunteer was in the hospital from 10:24-11:45).
[2023-05-20 17:38] VITALS: BP 129/78; PULSE 67; RESP 18; TEMP 35.9; O2SAT 96
[2023-05-20 21:17] VITALS: BP 148/78; PULSE 72
[2023-05-20] MEDS: LOSARTAN 100 MG TABLET GT (21:17)
[2023-05-20] MEDS: SENNOSIDES 8.6 MG TABLET 17.2 MG GT (21:17)
[2023-05-21] VITALS: BP 145/68; PULSE 66; PULSE 78; RESP 18; TEMP 36.1; O2SAT 97
[2023-05-21 06:00] VITALS: BP 140/83; PULSE 62; PULSE 66; RESP 18; RESP 19; TEMP 36; O2SAT 97; O2SAT 98
[2023-05-21] MEDS: SODIUM CHLORIDE TAB 1,000 MG TABLET.SOL 1000 MG GT ×2 (08:05→20:22)
[2023-05-21] MEDS: ESOMEPRAZOLE 40 MG GT (08:05)
[2023-05-21] MEDS: MULTIVIT-MIN/IRON FUM/FOLIC AC 1 EACH TABLET GT (08:05)
[2023-05-21] MEDS: SOD PHOS DI, MONO/K PHOS MONO 250 MG TABLET GT (08:05)
[2023-05-21] MEDS: CARBAMIDE PEROXIDE OTIC SOL 15 ML BTL 5 DROP BOTH EARS ×2 (09:00→20:21)
[2023-05-21 12:00] VITALS: BP 159/91; PULSE 74; RESP 19; TEMP 36
--- NOTE | 2023-05-21 16:35 | PD.SAPROG ---
Progress Note - SubAcute SUBJECTIVE Fever:: none GI:: none Shortness of Breath:: none GI:: no complaints Pain:: none OBJECTIVE Most recent vital signs: Last Vital Signs Temp 97.4 F 05/22/23 06:00 Pulse 79 05/22/23 06:00 Resp 19 05/22/23 06:00 BP 130/84 05/22/23 06:00 Pulse Ox 96 05/22/23 06:00 O2 Del Method Blow-by 05/21/23 18:00 O2 Flow Rate 6 05/21/23 19:40 FiO2 28 05/21/23 19:40 Neurological:: alert Speech:: nods head, mouths words (sometimes) and appropriate Answers questions:: sometimes Respiratory:: shallow breathing Cardiovascular: RRR Abdomen: soft and nontender Extremities:: deformities Decubitus:: none Tracheostomy:: to blow by Feeding per:: G tube Complaints:: none ASSESSMENT & PLAN Assessment: pt comfortable, dependant for care; treatment reviewed and continued Plan: Current treatment to continue
[2023-05-21 18:00] VITALS: BP 159/83; PULSE 73; RESP 16; TEMP 36.1; O2SAT 95
[2023-05-21 19:40] VITALS: PULSE 89; RESP 18; O2SAT 92
[2023-05-21 20:22] VITALS: BP 160/70; PULSE 59
[2023-05-21] MEDS: LOSARTAN 100 MG TABLET GT (20:22)
[2023-05-21] MEDS: SENNOSIDES 8.6 MG TABLET 17.2 MG GT (20:22)
[2023-05-22] VITALS (8 sets, daily range): BP systolic 126–164; BP diastolic 75–86; PULSE 59–79; RESP 18–19; TEMP 36–36.3; O2SAT 94–96
[2023-05-22] MEDS: CARBAMIDE PEROXIDE OTIC SOL 15 ML BTL 5 DROP BOTH EARS ×2 (09:28→21:09)
[2023-05-22] MEDS: SOD PHOS DI, MONO/K PHOS MONO 250 MG TABLET GT (09:30)
[2023-05-22] MEDS: ESOMEPRAZOLE 40 MG GT (09:30)
[2023-05-22] MEDS: MULTIVIT-MIN/IRON FUM/FOLIC AC 1 EACH TABLET GT (09:30)
[2023-05-22] MEDS: SODIUM CHLORIDE TAB 1,000 MG TABLET.SOL 1000 MG GT ×2 (09:30→21:10)
[2023-05-22] MEDS: LOSARTAN 100 MG TABLET GT (21:09)
[2023-05-22] MEDS: SENNOSIDES 8.6 MG TABLET 17.2 MG GT (21:10)
[2023-05-23] VITALS (8 sets, daily range): BP systolic 112–147; BP diastolic 74–84; PULSE 52–62; RESP 16–20; TEMP 36.1–36.4; O2SAT 93–97
[2023-05-23] MEDS: ESOMEPRAZOLE 40 MG GT (09:53)
[2023-05-23] MEDS: SOD PHOS DI, MONO/K PHOS MONO 250 MG TABLET GT (09:53)
[2023-05-23] MEDS: SODIUM CHLORIDE TAB 1,000 MG TABLET.SOL 1000 MG GT ×2 (09:53→21:00)
[2023-05-23] MEDS: MULTIVIT-MIN/IRON FUM/FOLIC AC 1 EACH TABLET GT (09:53)
[2023-05-23] MEDS: CARBAMIDE PEROXIDE OTIC SOL 15 ML BTL 5 DROP BOTH EARS (09:53)
--- NOTE | 2023-05-23 14:18 | PC.SS ---
Room visit: Resident is laying in bed with head of the bed elevated, resident has call light properly placed with no no signs of distress. Resident will remain in current care as there are no changes in care or condition. Resident is total care, all needs to be met in facility for LTC. Resident is unable to return home due to family unable to care for at home. Resident will continue to have daily room visit and will be offered support visit as needed.
[2023-05-23] MEDS: LOSARTAN 100 MG TABLET GT (21:00)
[2023-05-23] MEDS: SENNOSIDES 8.6 MG TABLET 17.2 MG GT (21:00)
[2023-05-24 05:40] VITALS: BP 127/87; PULSE 47; RESP 18; TEMP 36.3; O2SAT 99
[2023-05-24 07:33] VITALS: PULSE 47; RESP 18; O2SAT 98
[2023-05-24] MEDS: ESOMEPRAZOLE 40 MG GT (09:31)
[2023-05-24] MEDS: SODIUM CHLORIDE TAB 1,000 MG TABLET.SOL 1000 MG GT ×2 (09:32→20:22)
[2023-05-24] MEDS: MULTIVIT-MIN/IRON FUM/FOLIC AC 1 EACH TABLET GT (09:32)
[2023-05-24] MEDS: SOD PHOS DI, MONO/K PHOS MONO 250 MG TABLET GT (09:32)
[2023-05-24 12:00] VITALS: BP 160/77; PULSE 55; RESP 18; TEMP 36
[2023-05-24 17:39] VITALS: BP 169/79; PULSE 54; RESP 17; TEMP 36.3; O2SAT 94
--- NOTE | 2023-05-24 18:10 | PC.NURSE ---
1650 found trach out, RN notified who inserted trach without difficulty, no resp distress noted, VS BP169/79, P 54,Resp 17, Temp 97.4, O2 sat 94% on 6L 28%, mitten restraint reapplied to right hand, continue to monitor
--- NOTE | 2023-05-24 18:25 | PC.NURSE ---
Notified Dr hudson made him aware out. No new orders made. called resident's daughter Luis Manuel and made aware. Resident remains stable and alert.
[2023-05-24 20:11] VITALS: BP 169/79; PULSE 51
[2023-05-24] MEDS: LOSARTAN 100 MG TABLET GT (20:11)
[2023-05-24] MEDS: SENNOSIDES 8.6 MG TABLET 17.2 MG GT (20:22)
[2023-05-24 20:45] VITALS: PULSE 58; RESP 16; O2SAT 96
[2023-05-25] VITALS (8 sets, daily range): BP systolic 119–161; BP diastolic 77–91; PULSE 53–83; RESP 16–20; TEMP 36–36.4; O2SAT 94–97
[2023-05-25] MEDS: CARBAMIDE PEROXIDE OTIC SOL 15 ML BTL 5 DROP BOTH EARS (00:51)
[2023-05-25] MEDS: ESOMEPRAZOLE 40 MG GT (08:02)
[2023-05-25] MEDS: SODIUM CHLORIDE TAB 1,000 MG TABLET.SOL 1000 MG GT ×2 (08:02→20:35)
[2023-05-25] MEDS: SOD PHOS DI, MONO/K PHOS MONO 250 MG TABLET GT (08:02)
[2023-05-25] MEDS: MULTIVIT-MIN/IRON FUM/FOLIC AC 1 EACH TABLET GT (08:02)
--- NOTE | 2023-05-25 14:00 | PD.SAPROG ---
Progress Note - SubAcute SUBJECTIVE Fever:: none GI:: none Shortness of Breath:: none GI:: no complaints Pain:: none OBJECTIVE Most recent vital signs: Last Vital Signs Temp 96.9 F 05/27/23 05:50 Pulse 66 05/27/23 06:20 Resp 16 05/27/23 06:20 BP 139/89 H 05/27/23 05:50 Pulse Ox 96 05/27/23 06:20 O2 Del Method Blow-by 05/27/23 05:50 O2 Flow Rate 6 05/27/23 06:20 FiO2 28 05/27/23 06:20 Neurological:: alert Speech:: nods head, mouths words (sometimes) and appropriate Answers questions:: sometimes Respiratory:: shallow breathing Cardiovascular: RRR Abdomen: soft and nontender Extremities:: deformities Decubitus:: none Tracheostomy:: to blow by Feeding per:: G tube Complaints:: none ASSESSMENT & PLAN Assessment: pt comfortable, dependant for care; treatment reviewed and continued Plan: Current treatment to continue
[2023-05-25] MEDS: LOSARTAN 100 MG TABLET GT (20:34)
[2023-05-25] MEDS: SENNOSIDES 8.6 MG TABLET 17.2 MG GT (20:35)
[2023-05-26 05:54] VITALS: BP 129/82; PULSE 77; RESP 19; TEMP 36.1; O2SAT 95
[2023-05-26 06:10] VITALS: PULSE 59; RESP 16; O2SAT 96
[2023-05-26] MEDS: ESOMEPRAZOLE 40 MG GT (08:00)
[2023-05-26] MEDS: SOD PHOS DI, MONO/K PHOS MONO 250 MG TABLET GT (08:00)
[2023-05-26] MEDS: MULTIVIT-MIN/IRON FUM/FOLIC AC 1 EACH TABLET GT (08:00)
[2023-05-26] MEDS: SODIUM CHLORIDE TAB 1,000 MG TABLET.SOL 1000 MG GT ×2 (08:01→20:55)
[2023-05-26 11:38] VITALS: BP 156/81; PULSE 59; RESP 18; TEMP 36.3
[2023-05-26 17:39] VITALS: BP 175/80; PULSE 60; RESP 19; TEMP 36.4; O2SAT 98
[2023-05-26 20:30] VITALS: PULSE 75; RESP 16; O2SAT 95
[2023-05-26 20:55] VITALS: BP 184/93; PULSE 69
[2023-05-26] MEDS: SENNOSIDES 8.6 MG TABLET 17.2 MG GT (20:55)
[2023-05-26] MEDS: LOSARTAN 100 MG TABLET GT (20:55)
[2023-05-27] VITALS (7 sets, daily range): BP systolic 128–152; BP diastolic 81–89; PULSE 59–87; RESP 16–20; TEMP 36.1–36.2; O2SAT 71–99
[2023-05-27] MEDS: SOD PHOS DI, MONO/K PHOS MONO 250 MG TABLET GT (07:43)
[2023-05-27] MEDS: ESOMEPRAZOLE 40 MG GT (07:43)
[2023-05-27] MEDS: SODIUM CHLORIDE TAB 1,000 MG TABLET.SOL 1000 MG GT ×2 (07:44→20:13)
[2023-05-27] MEDS: MULTIVIT-MIN/IRON FUM/FOLIC AC 1 EACH TABLET GT (07:44)
--- NOTE | 2023-05-27 10:29 | CHAP ---
Patient was visited by the Spiritual Care Volunteer who prayed for them. (Volunteer was in the hospital from 09:00-10:29).
[2023-05-27] MEDS: SENNOSIDES 8.6 MG TABLET 17.2 MG GT (20:13)
[2023-05-27] MEDS: LOSARTAN 100 MG TABLET GT (20:13)
[2023-05-28] VITALS (7 sets, daily range): BP systolic 107–160; BP diastolic 69–90; PULSE 59–83; RESP 17–20; TEMP 36.1–36.4; O2SAT 96–98
[2023-05-28] MEDS: MULTIVIT-MIN/IRON FUM/FOLIC AC 1 EACH TABLET GT (08:10)
[2023-05-28] MEDS: ESOMEPRAZOLE 40 MG GT (08:10)
[2023-05-28] MEDS: SOD PHOS DI, MONO/K PHOS MONO 250 MG TABLET GT (08:10)
[2023-05-28] MEDS: SODIUM CHLORIDE TAB 1,000 MG TABLET.SOL 1000 MG GT ×2 (08:10→20:22)
[2023-05-28] MEDS: MAGNESIUM HYDROXIDE 30 ML ORAL SUSP ML GT (13:21)
[2023-05-28] MEDS: SENNOSIDES 8.6 MG TABLET 17.2 MG GT (20:22)
[2023-05-28] MEDS: LOSARTAN 100 MG TABLET GT (20:22)
[2023-05-29] VITALS (7 sets, daily range): BP systolic 108–136; BP diastolic 67–82; PULSE 64–79; RESP 17–19; TEMP 36.1–36.7; O2SAT 96–98
[2023-05-29] MEDS: MULTIVIT-MIN/IRON FUM/FOLIC AC 1 EACH TABLET GT (09:00)
[2023-05-29] MEDS: ESOMEPRAZOLE 40 MG GT (09:00)
[2023-05-29] MEDS: SOD PHOS DI, MONO/K PHOS MONO 250 MG TABLET GT (09:00)
[2023-05-29] MEDS: SODIUM CHLORIDE TAB 1,000 MG TABLET.SOL 1000 MG GT ×2 (09:00→20:29)
--- NOTE | 2023-05-29 16:15 | PD.SAPROG ---
Progress Note - SubAcute SUBJECTIVE Fever:: none GI:: none Shortness of Breath:: none GI:: no complaints Pain:: none OBJECTIVE Most recent vital signs: Last Vital Signs Temp 97.0 F 05/29/23 12:00 Pulse 69 05/29/23 12:00 Resp 19 05/29/23 12:00 BP 122/73 05/29/23 12:00 Pulse Ox 98 05/29/23 06:10 O2 Del Method Blow-by 05/28/23 17:17 O2 Flow Rate 6 05/29/23 06:10 FiO2 28 05/29/23 06:10 Neurological:: alert Speech:: nods head, mouths words (sometimes) and appropriate Answers questions:: sometimes Respiratory:: shallow breathing Cardiovascular: RRR Abdomen: soft and nontender Extremities:: deformities Decubitus:: none Tracheostomy:: to blow by Feeding per:: G tube Complaints:: none ASSESSMENT & PLAN Assessment: pt comfortable, dependant for care; treatment reviewed and continued Plan: Current treatment to continue
[2023-05-29] MEDS: LOSARTAN 100 MG TABLET GT (20:28)
[2023-05-29] MEDS: SENNOSIDES 8.6 MG TABLET 17.2 MG GT (20:29)
[2023-05-30] VITALS (7 sets, daily range): BP systolic 94–171; BP diastolic 59–92; PULSE 45–81; RESP 16–20; TEMP 36.1–36.3; O2SAT 96–98
[2023-05-30] MEDS: ESOMEPRAZOLE 40 MG GT (09:41)
[2023-05-30] MEDS: MULTIVIT-MIN/IRON FUM/FOLIC AC 1 EACH TABLET GT (09:41)
[2023-05-30] MEDS: SODIUM CHLORIDE TAB 1,000 MG TABLET.SOL 1000 MG GT ×2 (09:41→20:06)
[2023-05-30] MEDS: SOD PHOS DI, MONO/K PHOS MONO 250 MG TABLET GT (09:41)
[2023-05-30] MEDS: LOSARTAN 100 MG TABLET GT (20:05)
[2023-05-30] MEDS: SENNOSIDES 8.6 MG TABLET 17.2 MG GT (20:06)
--- NOTE | 2023-05-30 22:05 | PC.CWCCOMPLE ---
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
[2023-05-31 05:53] VITALS: BP 164/77; PULSE 50; RESP 18; TEMP 36.1; O2SAT 91
[2023-05-31 06:00] VITALS: PULSE 77; PULSE 78; RESP 18; O2SAT 96; O2SAT 97
[2023-05-31 07:51] LABS: Albumin, Serum 4.1 gm/dL (3.4-4.8); Anion Gap 7 (7-16); BUN/Creatinine Ratio 45 Ratio (12-20); Blood Urea Nitrogen 18 mg/dL (9-23); Calcium 9.8 mg/dL (8.3-10.6); Calcium (Corrected) 9.8 mg/dL (8.5-10.1); Carbon Dioxide 28.5 mMol/L (20.0-31.0); Chloride 101 mMol/L (98-107); Creatinine (Component) 0.4 mg/dL (0.6-1.3); Estimated Creatinine Clearance 102.3 mL/min (>60); Glucose 89 mg/dL (74-106); Osmolality,Calculated 272 (275-295); Phosphorous 4.0 mg/dL (2.4-5.1); Potassium 4.3 mMol/L (3.4-5.1); Sodium 136 mMol/L (136-145); eGFR > 60 See Note
--- NOTE | 2023-05-31 09:51 | PD.SAPROG ---
Progress Note - SubAcute SUBJECTIVE Fever:: none GI:: none Shortness of Breath:: none GI:: no complaints Pain:: none OBJECTIVE Most recent vital signs: Last Vital Signs Temp 97.0 F 05/31/23 05:53 Pulse 77 05/31/23 06:00 Resp 18 05/31/23 06:00 BP 164/77 H 05/31/23 05:53 Pulse Ox 96 05/31/23 06:00 O2 Del Method Blow-by 05/30/23 06:00 O2 Flow Rate 6 05/31/23 06:00 FiO2 28 05/31/23 06:00 Neurological:: alert Speech:: nods head, mouths words (sometimes) and appropriate Answers questions:: sometimes Respiratory:: shallow breathing Cardiovascular: RRR Abdomen: soft and nontender Extremities:: deformities Decubitus:: none Tracheostomy:: to blow by Feeding per:: G tube Complaints:: none ASSESSMENT & PLAN Assessment: pt comfortable, dependant for care; treatment reviewed and continued Plan: Current treatment to continue
[2023-05-31] MEDS: ESOMEPRAZOLE 40 MG GT (10:34)
[2023-05-31] MEDS: MULTIVIT-MIN/IRON FUM/FOLIC AC 1 EACH TABLET GT (10:35)
[2023-05-31] MEDS: SOD PHOS DI, MONO/K PHOS MONO 250 MG TABLET GT (10:35)
[2023-05-31] MEDS: SODIUM CHLORIDE TAB 1,000 MG TABLET.SOL 1000 MG GT ×2 (10:36→20:22)
[2023-05-31 12:00] VITALS: BP 134/76; PULSE 72; RESP 19; TEMP 36.1
--- NOTE | 2023-05-31 14:41 | PC.NURSE ---
CMP results are in, made aware, no new orders at this time.
[2023-05-31 18:00] VITALS: BP 138/78; PULSE 74; RESP 19; TEMP 36.1
[2023-05-31 19:00] VITALS: PULSE 69; RESP 18; RESP 20; O2SAT 96
[2023-05-31 20:21] VITALS: BP 166/79; PULSE 61
[2023-05-31] MEDS: LOSARTAN 100 MG TABLET GT (20:21)
[2023-05-31] MEDS: SENNOSIDES 8.6 MG TABLET 17.2 MG GT (20:22)
[2023-05-31] MEDS: MAGNESIUM HYDROXIDE 30 ML ORAL SUSP ML GT (23:10)
[2023-06-01] VITALS (8 sets, daily range): BP systolic 113–173; BP diastolic 67–92; PULSE 55–67; RESP 16–19; TEMP 36.1–36.4; O2SAT 96–97
[2023-06-01] MEDS: SODIUM CHLORIDE TAB 1,000 MG TABLET.SOL 1000 MG GT ×2 (09:00→20:11)
[2023-06-01] MEDS: MULTIVIT-MIN/IRON FUM/FOLIC AC 1 EACH TABLET GT (09:00)
[2023-06-01] MEDS: ESOMEPRAZOLE 40 MG GT (09:00)
[2023-06-01] MEDS: SOD PHOS DI, MONO/K PHOS MONO 250 MG TABLET GT (09:00)
--- NOTE | 2023-06-01 15:01 | PC.SS ---
Resident is laying in bed with head of the bed elevated with call light properly placed with no signs of distress. Resident is well groomed and appears comfortable. Resident is total care unable to make needs known, due to heavy care regimen family is unable to care for resident at home. Resident has no changes in care or condition, resident to remain in current care and continue to be evaluated as appropriate for DC to lower level of care.
[2023-06-01] MEDS: LOSARTAN 100 MG TABLET GT (20:10)
[2023-06-01] MEDS: SENNOSIDES 8.6 MG TABLET 17.2 MG GT (20:11)
[2023-06-02] VITALS (7 sets, daily range): BP systolic 120–143; BP diastolic 74–90; PULSE 53–68; RESP 16–18; TEMP 35.9–36.1; O2SAT 96–98
[2023-06-02] MEDS: ESOMEPRAZOLE 40 MG GT (08:28)
[2023-06-02] MEDS: SODIUM CHLORIDE TAB 1,000 MG TABLET.SOL 1000 MG GT ×2 (08:29→20:54)
[2023-06-02] MEDS: SOD PHOS DI, MONO/K PHOS MONO 250 MG TABLET GT (08:29)
[2023-06-02] MEDS: MULTIVIT-MIN/IRON FUM/FOLIC AC 1 EACH TABLET GT (08:29)
[2023-06-02] MEDS: LOSARTAN 100 MG TABLET GT (20:52)
[2023-06-02] MEDS: SENNOSIDES 8.6 MG TABLET 17.2 MG GT (20:53)
[2023-06-03 05:48] VITALS: BP 145/90; PULSE 57; RESP 18; TEMP 36.2; O2SAT 96
[2023-06-03 06:50] VITALS: PULSE 50; PULSE 51; RESP 18; O2SAT 96; O2SAT 98
[2023-06-03] MEDS: SOD PHOS DI, MONO/K PHOS MONO 250 MG TABLET GT (09:01)
[2023-06-03] MEDS: MULTIVIT-MIN/IRON FUM/FOLIC AC 1 EACH TABLET GT (09:01)
[2023-06-03] MEDS: ESOMEPRAZOLE 40 MG GT (09:01)
[2023-06-03] MEDS: SODIUM CHLORIDE TAB 1,000 MG TABLET.SOL 1000 MG GT ×2 (09:01→20:08)
--- NOTE | 2023-06-03 10:44 | CHAP ---
Patient was visited by the Spiritual Care Volunteer who prayed for them. (Volunteer was in [facility] from 9:35-10:44).
[2023-06-03 12:00] VITALS: BP 156/84; PULSE 53; RESP 18; TEMP 36.2
--- NOTE | 2023-06-03 12:55 | CHAP ---
Patient was visited by the Spiritual Care Volunteer who prayed for them. (Volunteer was in [facility] from 10:15-12:55).
[2023-06-03 17:22] VITALS: BP 167/60; PULSE 63; RESP 18; TEMP 36.2; O2SAT 96
[2023-06-03 20:07] VITALS: BP 143/79; PULSE 65
[2023-06-03] MEDS: LOSARTAN 100 MG TABLET GT (20:07)
[2023-06-03] MEDS: SENNOSIDES 8.6 MG TABLET 17.2 MG GT (20:07)
[2023-06-04] VITALS (7 sets, daily range): BP systolic 105–163; BP diastolic 70–88; PULSE 48–63; RESP 17–20; TEMP 36.1–36.2; O2SAT 95–97
[2023-06-04] MEDS: SOD PHOS DI, MONO/K PHOS MONO 250 MG TABLET GT (09:07)
[2023-06-04] MEDS: ESOMEPRAZOLE 40 MG GT (09:07)
[2023-06-04] MEDS: MULTIVIT-MIN/IRON FUM/FOLIC AC 1 EACH TABLET GT (09:08)
[2023-06-04] MEDS: SODIUM CHLORIDE TAB 1,000 MG TABLET.SOL 1000 MG GT ×2 (09:08→20:19)
--- NOTE | 2023-06-04 18:21 | PD.SAPROG ---
Progress Note - SubAcute SUBJECTIVE Fever:: none GI:: none Shortness of Breath:: none GI:: no complaints Pain:: none OBJECTIVE Most recent vital signs: Last Vital Signs Temp 96.9 F 06/04/23 17:39 Pulse 62 06/04/23 17:39 Resp 18 06/04/23 17:39 BP 159/88 H 06/04/23 17:39 Pulse Ox 97 06/04/23 17:39 O2 Del Method Blow-by 06/04/23 06:00 O2 Flow Rate 6 06/04/23 07:50 FiO2 28 06/04/23 07:50 Neurological:: alert Speech:: nods head, mouths words (sometimes) and appropriate Answers questions:: sometimes Respiratory:: shallow breathing Cardiovascular: RRR Abdomen: soft and nontender Extremities:: deformities Decubitus:: none Tracheostomy:: to blow by Feeding per:: G tube Complaints:: none ASSESSMENT & PLAN Assessment: pt comfortable, dependant for care; treatment reviewed and continued Plan: Current treatment to continue
[2023-06-04] MEDS: SENNOSIDES 8.6 MG TABLET 17.2 MG GT (20:18)
[2023-06-04] MEDS: LOSARTAN 100 MG TABLET GT (20:18)
[2023-06-05] VITALS (7 sets, daily range): BP systolic 106–128; BP diastolic 75–89; PULSE 51–77; RESP 18–20; TEMP 36.1–36.3; O2SAT 95–98
[2023-06-05] MEDS: SODIUM CHLORIDE TAB 1,000 MG TABLET.SOL 1000 MG GT ×2 (09:49→20:03)
[2023-06-05] MEDS: MULTIVIT-MIN/IRON FUM/FOLIC AC 1 EACH TABLET GT (09:49)
[2023-06-05] MEDS: SOD PHOS DI, MONO/K PHOS MONO 250 MG TABLET GT (09:49)
[2023-06-05] MEDS: ESOMEPRAZOLE 40 MG GT (09:49)
[2023-06-05] MEDS: LOSARTAN 100 MG TABLET GT (20:01)
[2023-06-05] MEDS: SENNOSIDES 8.6 MG TABLET 17.2 MG GT (20:02)
[2023-06-06] VITALS (7 sets, daily range): BP systolic 99–168; BP diastolic 55–83; PULSE 50–65; RESP 16–20; TEMP 36–36.3; O2SAT 95–99
[2023-06-06] MEDS: MULTIVIT-MIN/IRON FUM/FOLIC AC 1 EACH TABLET GT (09:00)
[2023-06-06] MEDS: ESOMEPRAZOLE 40 MG GT (09:00)
[2023-06-06] MEDS: SOD PHOS DI, MONO/K PHOS MONO 250 MG TABLET GT (09:00)
[2023-06-06] MEDS: SODIUM CHLORIDE TAB 1,000 MG TABLET.SOL 1000 MG GT ×2 (09:20→20:43)
[2023-06-06] MEDS: MAGNESIUM HYDROXIDE 30 ML ORAL SUSP ML GT (10:00)
[2023-06-06] MEDS: SENNOSIDES 8.6 MG TABLET 17.2 MG GT (20:43)
[2023-06-06] MEDS: LOSARTAN 100 MG TABLET GT (20:43)
[2023-06-07] VITALS (8 sets, daily range): BP systolic 112–127; BP diastolic 67–88; PULSE 58–76; RESP 17–19; TEMP 36.1; O2SAT 93–97
--- NOTE | 2023-06-07 14:38 | CHAP ---
10:30 AM Visited by spiritual care volunteer Provided prayer for Patient.
[2023-06-07] MEDS: SODIUM CHLORIDE TAB 1,000 MG TABLET.SOL 1000 MG GT (20:18)
[2023-06-07] MEDS: SENNOSIDES 8.6 MG TABLET 17.2 MG GT (21:14)
[2023-06-07] MEDS: LOSARTAN 100 MG TABLET GT (21:14)
[2023-06-08] VITALS: BP 117/77; PULSE 67; RESP 18; TEMP 36.1
[2023-06-08 06:00] VITALS: BP 132/82; PULSE 53; PULSE 57; RESP 18; TEMP 36.1; O2SAT 95; O2SAT 97
[2023-06-08] MEDS: MULTIVIT-MIN/IRON FUM/FOLIC AC 1 EACH TABLET GT (09:40)
[2023-06-08] MEDS: SODIUM CHLORIDE TAB 1,000 MG TABLET.SOL 1000 MG GT ×2 (09:40→20:18)
[2023-06-08] MEDS: ESOMEPRAZOLE 40 MG GT (09:40)
[2023-06-08] MEDS: SOD PHOS DI, MONO/K PHOS MONO 250 MG TABLET GT (09:40)
--- NOTE | 2023-06-08 16:23 | PC.SS ---
Room visit: Resident is laying in bed with head of the bed elevated with call light properly placed with no stefani of distress. Resident has no changes in care or condition, resident will remain in current care due to heavy and complicated care regimen. Family visits but unable to care for resident at home. SSD will continue to monitor resident for any changes in mood or behavior.
[2023-06-08 17:51] VITALS: BP 153/81; PULSE 54; RESP 20; TEMP 36.1; O2SAT 98
[2023-06-08 19:36] VITALS: PULSE 59; RESP 18; O2SAT 96
[2023-06-08 20:19] VITALS: BP 153/81; PULSE 66
[2023-06-08] MEDS: LOSARTAN 100 MG TABLET GT (20:19)
[2023-06-08] MEDS: SENNOSIDES 8.6 MG TABLET 17.2 MG GT (20:19)
[2023-06-08] MEDS: MAGNESIUM HYDROXIDE 30 ML ORAL SUSP ML GT (21:35)
--- NOTE | 2023-06-08 21:41 | PD.SAPROG ---
Progress Note - SubAcute SUBJECTIVE Fever:: none GI:: none Shortness of Breath:: none GI:: no complaints Pain:: none OBJECTIVE Most recent vital signs: Last Vital Signs Temp 97.0 F 06/08/23 17:51 Pulse 66 06/08/23 20:19 Resp 20 06/08/23 17:51 BP 153/81 H 06/08/23 20:19 Pulse Ox 98 06/08/23 17:51 O2 Del Method Blow-by 06/08/23 06:00 O2 Flow Rate 6 06/08/23 06:00 FiO2 28 06/08/23 06:00 Neurological:: alert Speech:: nods head, mouths words (sometimes) and appropriate Answers questions:: sometimes Respiratory:: shallow breathing Cardiovascular: RRR Abdomen: soft and nontender Extremities:: deformities Decubitus:: none Tracheostomy:: to blow by Feeding per:: G tube Complaints:: none ASSESSMENT & PLAN Assessment: pt comfortable, dependant for care; treatment reviewed and continued Plan: Current treatment to continue
[2023-06-09] VITALS (8 sets, daily range): BP systolic 122–171; BP diastolic 71–84; PULSE 55–73; RESP 17–19; TEMP 36–36.6; O2SAT 96–98
[2023-06-09] MEDS: MULTIVIT-MIN/IRON FUM/FOLIC AC 1 EACH TABLET GT (09:18)
[2023-06-09] MEDS: SODIUM CHLORIDE TAB 1,000 MG TABLET.SOL 1000 MG GT ×2 (09:18→20:54)
[2023-06-09] MEDS: ESOMEPRAZOLE 40 MG GT (09:18)
[2023-06-09] MEDS: SOD PHOS DI, MONO/K PHOS MONO 250 MG TABLET GT (09:18)
[2023-06-09] MEDS: LOSARTAN 100 MG TABLET GT (20:54)
[2023-06-09] MEDS: SENNOSIDES 8.6 MG TABLET 17.2 MG GT (20:55)
[2023-06-10] VITALS: BP 100/58; PULSE 88; RESP 18; TEMP 36.6
[2023-06-10 06:00] VITALS: BP 106/68; PULSE 75; RESP 18; TEMP 36.6; O2SAT 94
[2023-06-10 08:11] VITALS: PULSE 57; RESP 18; O2SAT 96
[2023-06-10] MEDS: ESOMEPRAZOLE 40 MG GT (08:12)
[2023-06-10] MEDS: MULTIVIT-MIN/IRON FUM/FOLIC AC 1 EACH TABLET GT (08:13)
[2023-06-10] MEDS: SODIUM CHLORIDE TAB 1,000 MG TABLET.SOL 1000 MG GT ×2 (08:13→21:54)
[2023-06-10] MEDS: SOD PHOS DI, MONO/K PHOS MONO 250 MG TABLET GT (08:13)
[2023-06-10 12:00] VITALS: BP 146/80; PULSE 56; RESP 17; TEMP 36.3; O2SAT 98
[2023-06-10 18:00] VITALS: BP 130/82; PULSE 59; RESP 17; TEMP 36.1
[2023-06-10 21:54] VITALS: BP 132/77; PULSE 78
[2023-06-10] MEDS: SENNOSIDES 8.6 MG TABLET 17.2 MG GT (21:54)
[2023-06-10] MEDS: LOSARTAN 100 MG TABLET GT (21:54)
[2023-06-11] VITALS (8 sets, daily range): BP systolic 104–135; BP diastolic 69–78; PULSE 56–64; RESP 18–19; TEMP 36.1–36.4; O2SAT 95–97
[2023-06-11] MEDS: ESOMEPRAZOLE 40 MG GT (09:05)
[2023-06-11] MEDS: SOD PHOS DI, MONO/K PHOS MONO 250 MG TABLET GT (09:05)
[2023-06-11] MEDS: MULTIVIT-MIN/IRON FUM/FOLIC AC 1 EACH TABLET GT (09:06)
[2023-06-11] MEDS: SODIUM CHLORIDE TAB 1,000 MG TABLET.SOL 1000 MG GT ×2 (09:06→20:15)
[2023-06-11] MEDS: MAGNESIUM HYDROXIDE 30 ML ORAL SUSP ML GT (20:14)
[2023-06-11] MEDS: LOSARTAN 100 MG TABLET GT (20:15)
[2023-06-11] MEDS: SENNOSIDES 8.6 MG TABLET 17.2 MG GT (20:15)
[2023-06-12] VITALS (7 sets, daily range): BP systolic 116–136; BP diastolic 76–92; PULSE 50–79; RESP 18–19; TEMP 36.1–36.3; O2SAT 94–98
[2023-06-12] MEDS: MULTIVIT-MIN/IRON FUM/FOLIC AC 1 EACH TABLET GT (08:06)
[2023-06-12] MEDS: SODIUM CHLORIDE TAB 1,000 MG TABLET.SOL 1000 MG GT ×2 (08:06→20:13)
[2023-06-12] MEDS: ESOMEPRAZOLE 40 MG GT (08:06)
[2023-06-12] MEDS: SOD PHOS DI, MONO/K PHOS MONO 250 MG TABLET GT (08:06)
[2023-06-12] MEDS: LOSARTAN 100 MG TABLET GT (20:12)
[2023-06-12] MEDS: SENNOSIDES 8.6 MG TABLET 17.2 MG GT (20:13)
--- NOTE | 2023-06-12 21:14 | PD.SAPROG ---
Progress Note - SubAcute SUBJECTIVE Fever:: none GI:: none Shortness of Breath:: none GI:: no complaints Pain:: none OBJECTIVE Most recent vital signs: Last Vital Signs Temp 96.9 F 06/12/23 18:00 Pulse 77 06/12/23 20:12 Resp 18 06/12/23 18:00 BP 133/84 H 06/12/23 20:12 Pulse Ox 97 06/12/23 18:00 O2 Del Method Blow-by 06/12/23 04:51 O2 Flow Rate 6 06/12/23 13:39 FiO2 28 06/12/23 13:39 Neurological:: alert Speech:: nods head, mouths words (sometimes) and appropriate Answers questions:: sometimes Respiratory:: shallow breathing Cardiovascular: RRR Abdomen: soft and nontender Extremities:: deformities Decubitus:: none Tracheostomy:: to blow by Feeding per:: G tube Complaints:: none ASSESSMENT & PLAN Assessment: pt comfortable, dependant for care; treatment reviewed and continued Plan: Current treatment to continue
[2023-06-13] VITALS (8 sets, daily range): BP systolic 104–126; BP diastolic 59–86; PULSE 51–63; RESP 18–20; TEMP 36–36.3; O2SAT 96–97
[2023-06-13] MEDS: SOD PHOS DI, MONO/K PHOS MONO 250 MG TABLET GT (08:04)
[2023-06-13] MEDS: MULTIVIT-MIN/IRON FUM/FOLIC AC 1 EACH TABLET GT (08:04)
[2023-06-13] MEDS: SODIUM CHLORIDE TAB 1,000 MG TABLET.SOL 1000 MG GT ×2 (08:04→21:16)
[2023-06-13] MEDS: ESOMEPRAZOLE 40 MG GT (08:04)
--- NOTE | 2023-06-13 13:19 | CHAP ---
During my visit I Prayed and talk with patient.
[2023-06-13] MEDS: LOSARTAN 100 MG TABLET GT (21:15)
[2023-06-13] MEDS: SENNOSIDES 8.6 MG TABLET 17.2 MG GT (21:16)
[2023-06-14] VITALS (7 sets, daily range): BP systolic 90–155; BP diastolic 65–81; PULSE 47–81; RESP 16–19; TEMP 36–36.4; O2SAT 95–97
[2023-06-14] MEDS: SOD PHOS DI, MONO/K PHOS MONO 250 MG TABLET GT (09:34)
[2023-06-14] MEDS: ESOMEPRAZOLE 40 MG GT (09:34)
[2023-06-14] MEDS: SODIUM CHLORIDE TAB 1,000 MG TABLET.SOL 1000 MG GT (09:35)
[2023-06-14] MEDS: MULTIVIT-MIN/IRON FUM/FOLIC AC 1 EACH TABLET GT (09:35)
--- NOTE | 2023-06-14 13:41 | CHAP ---
11:00 AM Visited by spiritual care volunteer Provided prayer for Patient.
[2023-06-14] MEDS: LOSARTAN 100 MG TABLET GT (21:31)
[2023-06-14] MEDS: SENNOSIDES 8.6 MG TABLET 17.2 MG GT (21:32)
[2023-06-14] MEDS: MAGNESIUM HYDROXIDE 30 ML ORAL SUSP ML GT (21:33)
[2023-06-15] VITALS (7 sets, daily range): BP systolic 110–148; BP diastolic 71–97; PULSE 53–78; RESP 18–19; TEMP 36.1; O2SAT 95–97
[2023-06-15] MEDS: ESOMEPRAZOLE 40 MG GT (08:04)
[2023-06-15] MEDS: SOD PHOS DI, MONO/K PHOS MONO 250 MG TABLET GT (08:04)
[2023-06-15] MEDS: MULTIVIT-MIN/IRON FUM/FOLIC AC 1 EACH TABLET GT (08:04)
[2023-06-15] MEDS: SODIUM CHLORIDE TAB 1,000 MG TABLET.SOL 1000 MG GT ×2 (08:05→20:37)
--- NOTE | 2023-06-15 10:44 | PC.SS ---
Room visit: Resident is laying in bed with head of the bed elevated with call light properly placed with no signs of distress. Resident will remain in current care as there are no changes in care or condition. This SSD will continue to make daily contact with resident and offer emotional support.
[2023-06-15] MEDS: LOSARTAN 100 MG TABLET GT (20:37)
[2023-06-15] MEDS: SENNOSIDES 8.6 MG TABLET 17.2 MG GT (20:38)
[2023-06-16] VITALS (7 sets, daily range): BP systolic 104–139; BP diastolic 68–86; PULSE 52–63; RESP 16–22; TEMP 36–36.1; O2SAT 96–97
[2023-06-16] MEDS: ESOMEPRAZOLE 40 MG GT (08:09)
[2023-06-16] MEDS: SOD PHOS DI, MONO/K PHOS MONO 250 MG TABLET GT (08:09)
[2023-06-16] MEDS: MULTIVIT-MIN/IRON FUM/FOLIC AC 1 EACH TABLET GT (08:09)
[2023-06-16] MEDS: SODIUM CHLORIDE TAB 1,000 MG TABLET.SOL 1000 MG GT ×2 (08:10→20:09)
[2023-06-16] MEDS: LOSARTAN 100 MG TABLET GT (20:09)
[2023-06-16] MEDS: SENNOSIDES 8.6 MG TABLET 17.2 MG GT (20:10)
--- NOTE | 2023-06-16 20:44 | PD.SAPROG ---
Progress Note - SubAcute SUBJECTIVE Fever:: none GI:: none Shortness of Breath:: none GI:: no complaints Pain:: none OBJECTIVE Most recent vital signs: Last Vital Signs Temp 96.8 F 06/16/23 17:43 Pulse 63 06/16/23 20:09 Resp 16 06/16/23 19:30 BP 136/79 H 06/16/23 20:09 Pulse Ox 96 06/16/23 19:30 O2 Del Method Blow-by 06/16/23 06:00 O2 Flow Rate 6 06/16/23 19:30 FiO2 28 06/16/23 19:30 Neurological:: alert Speech:: nods head, mouths words (sometimes) and appropriate Answers questions:: sometimes Respiratory:: shallow breathing Cardiovascular: RRR Abdomen: soft and nontender Extremities:: deformities Decubitus:: none Tracheostomy:: to blow by Feeding per:: G tube Complaints:: none ASSESSMENT & PLAN Assessment: pt comfortable, dependant for care; treatment reviewed and continued Plan: Current treatment to continue
[2023-06-17] VITALS: BP 116/70; PULSE 61; RESP 20; TEMP 36.1
[2023-06-17 06:00] VITALS: BP 129/85; PULSE 64; RESP 20; TEMP 36.3; O2SAT 96
[2023-06-17 06:50] VITALS: PULSE 57; RESP 18; O2SAT 96
[2023-06-17] MEDS: SOD PHOS DI, MONO/K PHOS MONO 250 MG TABLET GT (08:15)
[2023-06-17] MEDS: SODIUM CHLORIDE TAB 1,000 MG TABLET.SOL 1000 MG GT ×2 (08:15→20:06)
[2023-06-17] MEDS: MULTIVIT-MIN/IRON FUM/FOLIC AC 1 EACH TABLET GT (08:15)
[2023-06-17] MEDS: ESOMEPRAZOLE 40 MG GT (08:15)
[2023-06-17 11:45] VITALS: BP 124/82; PULSE 68; RESP 18; TEMP 36
--- NOTE | 2023-06-17 12:51 | CHAP ---
Patient was visited by the Spiritual Care Volunteer who prayed outside room. (Volunteer was in the hospital from 10:32-12:51)
[2023-06-17 17:27] VITALS: BP 137/85; PULSE 65; RESP 19; TEMP 36.2; O2SAT 96
[2023-06-17 20:06] VITALS: BP 163/90; PULSE 63
[2023-06-17] MEDS: SENNOSIDES 8.6 MG TABLET 17.2 MG GT (20:06)
[2023-06-17] MEDS: LOSARTAN 100 MG TABLET GT (20:06)
[2023-06-18] VITALS (7 sets, daily range): BP systolic 119–151; BP diastolic 69–89; PULSE 52–93; RESP 18–20; TEMP 36.1–36.4; O2SAT 96–98
[2023-06-18] MEDS: ESOMEPRAZOLE 40 MG GT (08:04)
[2023-06-18] MEDS: SOD PHOS DI, MONO/K PHOS MONO 250 MG TABLET GT (08:04)
[2023-06-18] MEDS: MULTIVIT-MIN/IRON FUM/FOLIC AC 1 EACH TABLET GT (08:05)
[2023-06-18] MEDS: SODIUM CHLORIDE TAB 1,000 MG TABLET.SOL 1000 MG GT ×2 (08:05→20:16)
[2023-06-18] MEDS: LOSARTAN 100 MG TABLET GT (20:14)
[2023-06-18] MEDS: SENNOSIDES 8.6 MG TABLET 17.2 MG GT (20:15)
[2023-06-19] VITALS: BP 125/79; PULSE 58; RESP 18; TEMP 36.3
[2023-06-19 06:00] VITALS: BP 101/67; PULSE 61; RESP 20; TEMP 36.2; O2SAT 96
[2023-06-19 06:40] VITALS: PULSE 68; RESP 20; O2SAT 98
[2023-06-19] MEDS: MULTIVIT-MIN/IRON FUM/FOLIC AC 1 EACH TABLET GT (08:10)
[2023-06-19] MEDS: ESOMEPRAZOLE 40 MG GT (08:10)
[2023-06-19] MEDS: SOD PHOS DI, MONO/K PHOS MONO 250 MG TABLET GT (08:10)
[2023-06-19] MEDS: SODIUM CHLORIDE TAB 1,000 MG TABLET.SOL 1000 MG GT ×2 (08:11→20:49)
[2023-06-19 12:00] VITALS: BP 164/66; PULSE 57; RESP 17; TEMP 36.2; O2SAT 97
[2023-06-19 18:00] VITALS: BP 116/79; PULSE 59; RESP 19; TEMP 36.5; O2SAT 97
[2023-06-19 20:48] VITALS: BP 155/80; PULSE 58
[2023-06-19] MEDS: LOSARTAN 100 MG TABLET GT (20:48)
[2023-06-19] MEDS: SENNOSIDES 8.6 MG TABLET 17.2 MG GT (20:48)
--- NOTE | 2023-06-19 22:39 | PC.NURSE ---
Been changed last sunday and sunday. - as referred to senior RN.
[2023-06-20] VITALS (8 sets, daily range): BP systolic 101–155; BP diastolic 67–89; PULSE 55–68; RESP 17–20; TEMP 36.2–36.5; O2SAT 95–99
[2023-06-20] MEDS: SOD PHOS DI, MONO/K PHOS MONO 250 MG TABLET GT (08:07)
[2023-06-20] MEDS: ESOMEPRAZOLE 40 MG GT (08:07)
[2023-06-20] MEDS: MULTIVIT-MIN/IRON FUM/FOLIC AC 1 EACH TABLET GT (08:07)
[2023-06-20] MEDS: SODIUM CHLORIDE TAB 1,000 MG TABLET.SOL 1000 MG GT ×2 (08:07→20:24)
[2023-06-20] MEDS: LOSARTAN 100 MG TABLET GT (20:23)
[2023-06-20] MEDS: SENNOSIDES 8.6 MG TABLET 17.2 MG GT (20:24)
--- NOTE | 2023-06-20 21:54 | PD.SAPROG ---
Progress Note - SubAcute SUBJECTIVE Fever:: none GI:: none Shortness of Breath:: none GI:: no complaints Pain:: none OBJECTIVE Most recent vital signs: Last Vital Signs Temp 97.1 F 06/20/23 17:34 Pulse 55 L 06/20/23 20:23 Resp 20 06/20/23 17:35 BP 155/73 H 06/20/23 20:23 Pulse Ox 95 06/20/23 17:35 O2 Del Method Blow-by 06/20/23 06:00 O2 Flow Rate 6 06/20/23 17:35 FiO2 28 06/20/23 17:35 Neurological:: alert Speech:: nods head, mouths words (sometimes) and appropriate Answers questions:: sometimes Respiratory:: shallow breathing Cardiovascular: RRR Abdomen: soft and nontender Extremities:: deformities Decubitus:: none Tracheostomy:: to blow by Feeding per:: G tube Complaints:: none ASSESSMENT & PLAN Assessment: pt comfortable, dependant for care; treatment reviewed and continued Plan: Current treatment to continue
[2023-06-21] VITALS (7 sets, daily range): BP systolic 100–142; BP diastolic 69–86; PULSE 52–66; RESP 17–20; TEMP 36.1–36.6; O2SAT 96–98
[2023-06-21] MEDS: SOD PHOS DI, MONO/K PHOS MONO 250 MG TABLET GT (08:03)
[2023-06-21] MEDS: MULTIVIT-MIN/IRON FUM/FOLIC AC 1 EACH TABLET GT (08:03)
[2023-06-21] MEDS: ESOMEPRAZOLE 40 MG GT (08:03)
[2023-06-21] MEDS: SODIUM CHLORIDE TAB 1,000 MG TABLET.SOL 1000 MG GT ×2 (08:04→20:13)
--- NOTE | 2023-06-21 14:33 | CHAP ---
10:00 AM Visited by spiritual care volunteer Provided prayer for Patient.
[2023-06-21] MEDS: LOSARTAN 100 MG TABLET GT (20:12)
[2023-06-21] MEDS: SENNOSIDES 8.6 MG TABLET 17.2 MG GT (20:13)
[2023-06-22] VITALS (7 sets, daily range): BP systolic 121–150; BP diastolic 79–93; PULSE 53–81; RESP 18–20; TEMP 36–36.3; O2SAT 94–100
[2023-06-22] MEDS: MULTIVIT-MIN/IRON FUM/FOLIC AC 1 EACH TABLET GT (08:11)
[2023-06-22] MEDS: SOD PHOS DI, MONO/K PHOS MONO 250 MG TABLET GT (08:11)
[2023-06-22] MEDS: ESOMEPRAZOLE 40 MG GT (08:11)
[2023-06-22] MEDS: SODIUM CHLORIDE TAB 1,000 MG TABLET.SOL 1000 MG GT ×2 (08:12→20:51)
--- NOTE | 2023-06-22 12:29 | PC.SS ---
Room visit: Resident is laying in bed watching TV with call light properly placed with no signs of distress. Resident is well groomed appears to be in good spirits with no changes in mood or behavior. Resident will remain in current care as there are no changes in care or condition. SSD will continue to make daily contact with resident and offer support as needed.
[2023-06-22] MEDS: LOSARTAN 100 MG TABLET GT (20:50)
[2023-06-22] MEDS: SENNOSIDES 8.6 MG TABLET 17.2 MG GT (20:51)
[2023-06-23] VITALS: BP 138/90; PULSE 67; RESP 18; TEMP 36.4
[2023-06-23 05:45] VITALS: PULSE 67; RESP 18; O2SAT 97
[2023-06-23 05:50] VITALS: BP 140/83; PULSE 65; RESP 18; TEMP 36.1
[2023-06-23] MEDS: SODIUM CHLORIDE TAB 1,000 MG TABLET.SOL 1000 MG GT ×2 (08:11→21:15)
[2023-06-23] MEDS: SOD PHOS DI, MONO/K PHOS MONO 250 MG TABLET GT (08:11)
[2023-06-23] MEDS: ESOMEPRAZOLE 40 MG GT (08:11)
[2023-06-23] MEDS: MULTIVIT-MIN/IRON FUM/FOLIC AC 1 EACH TABLET GT (08:11)
[2023-06-23] MEDS: MAGNESIUM HYDROXIDE 30 ML ORAL SUSP ML GT (08:18)
[2023-06-23 12:00] VITALS: BP 149/80; PULSE 60; RESP 18; TEMP 36.2; O2SAT 100
[2023-06-23 18:00] VITALS: BP 138/68; PULSE 68; PULSE 73; RESP 18; TEMP 36.5; O2SAT 96
[2023-06-23 21:15] VITALS: BP 131/81; PULSE 69
[2023-06-23] MEDS: LOSARTAN 100 MG TABLET GT (21:15)
[2023-06-23] MEDS: SENNOSIDES 8.6 MG TABLET 17.2 MG GT (21:15)
[2023-06-24] VITALS: BP 99/70; PULSE 55; RESP 18; TEMP 36.1
[2023-06-24 06:00] VITALS: BP 116/81; PULSE 58; RESP 18; TEMP 36.2; O2SAT 98
[2023-06-24 07:15] VITALS: PULSE 70; RESP 18; O2SAT 97
[2023-06-24] MEDS: ESOMEPRAZOLE 40 MG GT (08:12)
[2023-06-24] MEDS: SOD PHOS DI, MONO/K PHOS MONO 250 MG TABLET GT (08:12)
[2023-06-24] MEDS: MULTIVIT-MIN/IRON FUM/FOLIC AC 1 EACH TABLET GT (08:13)
[2023-06-24] MEDS: SODIUM CHLORIDE TAB 1,000 MG TABLET.SOL 1000 MG GT ×2 (08:13→20:10)
[2023-06-24 12:00] VITALS: BP 136/84; PULSE 50; RESP 18; TEMP 36.1
[2023-06-24 17:12] VITALS: BP 137/86; PULSE 56; RESP 18; TEMP 36; O2SAT 95
[2023-06-24 20:10] VITALS: BP 141/80; PULSE 60
[2023-06-24] MEDS: SENNOSIDES 8.6 MG TABLET 17.2 MG GT (20:10)
[2023-06-24] MEDS: LOSARTAN 100 MG TABLET GT (20:10)
--- NOTE | 2023-06-24 22:19 | PD.SAPROG ---
Progress Note - SubAcute SUBJECTIVE Fever:: none GI:: none Shortness of Breath:: none GI:: no complaints Pain:: none OBJECTIVE Most recent vital signs: Last Vital Signs Temp 96.8 F 06/24/23 17:12 Pulse 60 06/24/23 20:10 Resp 18 06/24/23 17:12 BP 141/80 H 06/24/23 20:10 Pulse Ox 95 06/24/23 17:12 O2 Del Method Blow-by 06/24/23 06:00 O2 Flow Rate 6 06/24/23 07:15 FiO2 28 06/24/23 07:15 Neurological:: alert Speech:: nods head, mouths words (sometimes) and appropriate Answers questions:: sometimes Respiratory:: shallow breathing Cardiovascular: RRR Abdomen: soft and nontender Extremities:: deformities Decubitus:: none Tracheostomy:: to blow by Feeding per:: G tube Complaints:: none ASSESSMENT & PLAN Assessment: pt comfortable, dependant for care; treatment reviewed and continued Plan: Current treatment to continue
[2023-06-25] VITALS: BP 148/84; PULSE 64; RESP 18; TEMP 36.3
[2023-06-25 06:00] VITALS: BP 142/83; PULSE 59; PULSE 66; RESP 18; TEMP 36.4; O2SAT 97; O2SAT 98
[2023-06-25] MEDS: SOD PHOS DI, MONO/K PHOS MONO 250 MG TABLET GT (09:34)
[2023-06-25] MEDS: ESOMEPRAZOLE 40 MG GT (09:34)
[2023-06-25] MEDS: MULTIVIT-MIN/IRON FUM/FOLIC AC 1 EACH TABLET GT (09:35)
[2023-06-25] MEDS: SODIUM CHLORIDE TAB 1,000 MG TABLET.SOL 1000 MG GT ×2 (09:35→20:08)
[2023-06-25 12:00] VITALS: BP 123/82; PULSE 58; RESP 19; TEMP 36.4; O2SAT 98
[2023-06-25 18:00] VITALS: BP 166/83; PULSE 60; RESP 18; TEMP 36.6
[2023-06-25 20:07] VITALS: BP 143/86; PULSE 62
[2023-06-25] MEDS: SENNOSIDES 8.6 MG TABLET 17.2 MG GT (20:07)
[2023-06-25] MEDS: LOSARTAN 100 MG TABLET GT (20:07)
[2023-06-26] VITALS (7 sets, daily range): BP systolic 98–143; BP diastolic 63–90; PULSE 51–73; RESP 18–20; TEMP 36.2–36.3; O2SAT 95–98
[2023-06-26] MEDS: ESOMEPRAZOLE 40 MG GT (08:07)
[2023-06-26] MEDS: SODIUM CHLORIDE TAB 1,000 MG TABLET.SOL 1000 MG GT ×2 (08:07→20:07)
[2023-06-26] MEDS: SOD PHOS DI, MONO/K PHOS MONO 250 MG TABLET GT (08:07)
[2023-06-26] MEDS: MULTIVIT-MIN/IRON FUM/FOLIC AC 1 EACH TABLET GT (08:07)
[2023-06-26] MEDS: MAGNESIUM HYDROXIDE 30 ML ORAL SUSP ML GT (18:59)
[2023-06-26] MEDS: LOSARTAN 100 MG TABLET GT (20:06)
[2023-06-26] MEDS: SENNOSIDES 8.6 MG TABLET 17.2 MG GT (20:06)
[2023-06-27] VITALS (7 sets, daily range): BP systolic 120–169; BP diastolic 77–90; PULSE 54–69; RESP 18–20; TEMP 36.2–36.6; O2SAT 96–98
[2023-06-27] MEDS: ESOMEPRAZOLE 40 MG GT (08:08)
[2023-06-27] MEDS: MULTIVIT-MIN/IRON FUM/FOLIC AC 1 EACH TABLET GT (08:08)
[2023-06-27] MEDS: SODIUM CHLORIDE TAB 1,000 MG TABLET.SOL 1000 MG GT ×2 (08:08→20:25)
[2023-06-27] MEDS: SOD PHOS DI, MONO/K PHOS MONO 250 MG TABLET GT (08:08)
[2023-06-27] MEDS: LOSARTAN 100 MG TABLET GT (20:23)
[2023-06-27] MEDS: SENNOSIDES 8.6 MG TABLET 17.2 MG GT (20:25)
[2023-06-28] VITALS (7 sets, daily range): BP systolic 134–179; BP diastolic 61–93; PULSE 59–78; RESP 18; TEMP 36.1–36.4; O2SAT 96–99
[2023-06-28] MEDS: SODIUM CHLORIDE TAB 1,000 MG TABLET.SOL 1000 MG GT ×2 (08:02→21:18)
[2023-06-28] MEDS: MULTIVIT-MIN/IRON FUM/FOLIC AC 1 EACH TABLET GT (08:02)
[2023-06-28] MEDS: SOD PHOS DI, MONO/K PHOS MONO 250 MG TABLET GT (08:02)
[2023-06-28] MEDS: ESOMEPRAZOLE 40 MG GT (08:02)
--- NOTE | 2023-06-28 15:00 | PD.SAPROG ---
Progress Note - SubAcute SUBJECTIVE Fever:: none GI:: none Shortness of Breath:: none GI:: no complaints Pain:: none OBJECTIVE Most recent vital signs: Last Vital Signs Temp 97.0 F 07/02/23 05:46 Pulse 66 07/02/23 05:46 Resp 18 07/02/23 05:46 BP 104/65 07/02/23 05:46 Pulse Ox 96 07/02/23 04:10 O2 Del Method Blow-by 07/01/23 06:00 O2 Flow Rate 6 07/02/23 04:10 FiO2 28 07/02/23 04:10 Neurological:: alert Speech:: nods head, mouths words (sometimes) and appropriate Answers questions:: sometimes Respiratory:: shallow breathing Cardiovascular: RRR Abdomen: soft and nontender Extremities:: deformities Decubitus:: none Tracheostomy:: to blow by Feeding per:: G tube Complaints:: none ASSESSMENT & PLAN Assessment: pt comfortable, dependant for care; treatment reviewed and continued Plan: Current treatment to continue
[2023-06-28] MEDS: SENNOSIDES 8.6 MG TABLET 17.2 MG GT (21:18)
[2023-06-28] MEDS: LOSARTAN 100 MG TABLET GT (21:18)
[2023-06-29] VITALS (7 sets, daily range): BP systolic 107–155; BP diastolic 71–93; PULSE 63–93; RESP 16–20; TEMP 36.2–36.4; O2SAT 94–99
[2023-06-29] MEDS: ESOMEPRAZOLE 40 MG GT (07:59)
[2023-06-29] MEDS: SODIUM CHLORIDE TAB 1,000 MG TABLET.SOL 1000 MG GT ×2 (08:00→20:13)
[2023-06-29] MEDS: MULTIVIT-MIN/IRON FUM/FOLIC AC 1 EACH TABLET GT (08:00)
[2023-06-29] MEDS: SOD PHOS DI, MONO/K PHOS MONO 250 MG TABLET GT (08:00)
--- NOTE | 2023-06-29 14:44 | PC.SS ---
Room visit: Resident is laying in bed with head of the bed elevated with call light properly placed. Resident has no changes in care or condition she will remain in current care and will have all needs met for subacute care. This SSD will make daily contact with resident and will monitor for any changes in care or condition.
[2023-06-29] MEDS: SENNOSIDES 8.6 MG TABLET 17.2 MG GT (20:13)
[2023-06-30] VITALS (7 sets, daily range): BP systolic 110–149; BP diastolic 77–82; PULSE 60–85; RESP 18; TEMP 36.1–36.2; O2SAT 95–97
[2023-06-30] MEDS: MULTIVIT-MIN/IRON FUM/FOLIC AC 1 EACH TABLET GT (08:19)
[2023-06-30] MEDS: ESOMEPRAZOLE 40 MG GT (08:19)
[2023-06-30] MEDS: SOD PHOS DI, MONO/K PHOS MONO 250 MG TABLET GT (08:19)
[2023-06-30] MEDS: SODIUM CHLORIDE TAB 1,000 MG TABLET.SOL 1000 MG GT ×2 (08:19→20:54)
[2023-06-30] MEDS: LOSARTAN 100 MG TABLET GT (20:53)
[2023-06-30] MEDS: SENNOSIDES 8.6 MG TABLET 17.2 MG GT (20:54)
[2023-07-01] VITALS: BP 138/76; PULSE 71; RESP 18; TEMP 36
[2023-07-01 06:00] VITALS: BP 138/68; PULSE 69; RESP 19; TEMP 35.9; O2SAT 95
[2023-07-01 06:45] VITALS: PULSE 74; RESP 18; O2SAT 96
[2023-07-01] MEDS: ESOMEPRAZOLE 40 MG GT (08:13)
[2023-07-01] MEDS: SODIUM CHLORIDE TAB 1,000 MG TABLET.SOL 1000 MG GT ×2 (08:14→20:18)
[2023-07-01] MEDS: SOD PHOS DI, MONO/K PHOS MONO 250 MG TABLET GT (08:14)
[2023-07-01] MEDS: MULTIVIT-MIN/IRON FUM/FOLIC AC 1 EACH TABLET GT (08:14)
[2023-07-01 11:21] VITALS: BP 135/88; PULSE 75; RESP 19; TEMP 36.4; O2SAT 99
[2023-07-01 16:43] VITALS: BP 148/91; PULSE 76; RESP 19; TEMP 36.3
[2023-07-01 20:17] VITALS: BP 146/89; PULSE 76
[2023-07-01] MEDS: LOSARTAN 100 MG TABLET GT (20:17)
[2023-07-01] MEDS: SENNOSIDES 8.6 MG TABLET 17.2 MG GT (20:18)
[2023-07-02 04:10] VITALS: PULSE 78; RESP 18; O2SAT 96
[2023-07-02 05:46] VITALS: BP 104/65; PULSE 66; RESP 18; TEMP 36.1
[2023-07-02 05:55] VITALS: PULSE 68; RESP 18; O2SAT 97
[2023-07-02] MEDS: SOD PHOS DI, MONO/K PHOS MONO 250 MG TABLET GT (08:04)
[2023-07-02] MEDS: ESOMEPRAZOLE 40 MG GT (08:04)
[2023-07-02] MEDS: MULTIVIT-MIN/IRON FUM/FOLIC AC 1 EACH TABLET GT (08:05)
[2023-07-02] MEDS: SODIUM CHLORIDE TAB 1,000 MG TABLET.SOL 1000 MG GT ×2 (08:05→20:05)
[2023-07-02 12:00] VITALS: BP 145/83; PULSE 79; RESP 20; TEMP 36.3; O2SAT 99
[2023-07-02 17:39] VITALS: BP 127/75; PULSE 59; RESP 19; TEMP 36.3
[2023-07-02 20:04] VITALS: BP 133/81; PULSE 60
[2023-07-02] MEDS: LOSARTAN 100 MG TABLET GT (20:04)
[2023-07-02] MEDS: SENNOSIDES 8.6 MG TABLET 17.2 MG GT (20:05)
[2023-07-03] VITALS (7 sets, daily range): BP systolic 103–130; BP diastolic 75–84; PULSE 52–74; RESP 16–19; TEMP 36.1; O2SAT 96–99
[2023-07-03 07:24] LABS: Albumin, Serum 4.2 gm/dL (3.4-4.8); Anion Gap 6 (7-16); BUN/Creatinine Ratio 40 Ratio (12-20); Blood Urea Nitrogen 16 mg/dL (9-23); Calcium 9.8 mg/dL (8.3-10.6); Calcium (Corrected) 9.8 mg/dL (8.5-10.1); Carbon Dioxide 27.1 mMol/L (20.0-31.0); Chloride 102 mMol/L (98-107); Creatinine (Component) 0.4 mg/dL (0.6-1.3); Estimated Creatinine Clearance 102.9 mL/min (>60); Glucose 90 mg/dL (74-106); Osmolality,Calculated 271 (275-295); Phosphorous 4.7 mg/dL (2.4-5.1); Potassium 4.2 mMol/L (3.4-5.1); Sodium 135 mMol/L (136-145); eGFR > 60 See Note
[2023-07-03] MEDS: MULTIVIT-MIN/IRON FUM/FOLIC AC 1 EACH TABLET GT (08:12)
[2023-07-03] MEDS: ESOMEPRAZOLE 40 MG GT (08:12)
[2023-07-03] MEDS: SOD PHOS DI, MONO/K PHOS MONO 250 MG TABLET GT (08:12)
[2023-07-03] MEDS: SODIUM CHLORIDE TAB 1,000 MG TABLET.SOL 1000 MG GT ×2 (08:12→20:15)
--- NOTE | 2023-07-03 14:23 | PC.NURSE ---
Received renal panel result, sodium level was 135 no new order received.
[2023-07-03] MEDS: LOSARTAN 100 MG TABLET GT (20:14)
[2023-07-03] MEDS: SENNOSIDES 8.6 MG TABLET 17.2 MG GT (20:15)
[2023-07-03] MEDS: MAGNESIUM HYDROXIDE 30 ML ORAL SUSP ML GT (20:15)
[2023-07-04] VITALS (7 sets, daily range): BP systolic 103–164; BP diastolic 71–87; PULSE 52–64; RESP 18–20; TEMP 36–36.7; O2SAT 95–98
[2023-07-04] MEDS: SODIUM CHLORIDE TAB 1,000 MG TABLET.SOL 1000 MG GT ×2 (08:29→20:47)
[2023-07-04] MEDS: SOD PHOS DI, MONO/K PHOS MONO 250 MG TABLET GT (08:29)
[2023-07-04] MEDS: ESOMEPRAZOLE 40 MG GT (08:29)
[2023-07-04] MEDS: MULTIVIT-MIN/IRON FUM/FOLIC AC 1 EACH TABLET GT (08:29)
[2023-07-04] MEDS: LOSARTAN 100 MG TABLET GT (20:46)
[2023-07-04] MEDS: SENNOSIDES 8.6 MG TABLET 17.2 MG GT (20:47)
[2023-07-05] VITALS: BP 111/72; PULSE 59; RESP 18; TEMP 36.3; O2SAT 96
[2023-07-05 06:00] VITALS: BP 134/84; PULSE 59; PULSE 70; RESP 18; RESP 20; TEMP 36.4; O2SAT 96; O2SAT 98
[2023-07-05] MEDS: MULTIVIT-MIN/IRON FUM/FOLIC AC 1 EACH TABLET GT (09:00)
[2023-07-05] MEDS: SOD PHOS DI, MONO/K PHOS MONO 250 MG TABLET GT (09:00)
[2023-07-05] MEDS: ESOMEPRAZOLE 40 MG GT (09:00)
[2023-07-05] MEDS: SODIUM CHLORIDE TAB 1,000 MG TABLET.SOL 1000 MG GT ×2 (09:00→20:31)
[2023-07-05 11:38] VITALS: BP 139/72; PULSE 60; RESP 18; TEMP 36.5
--- NOTE | 2023-07-05 13:24 | CHAP ---
11:00 AM Visited by spiritual care volunteer Provided prayer for Patient.
--- NOTE | 2023-07-05 14:25 | PD.SAPROG ---
Progress Note - SubAcute SUBJECTIVE Fever:: none GI:: none Shortness of Breath:: none GI:: no complaints Pain:: none OBJECTIVE Most recent vital signs: Last Vital Signs Temp 97.4 F 07/06/23 00:00 Pulse 65 07/06/23 00:00 Resp 18 07/06/23 00:00 BP 114/70 07/06/23 00:00 Pulse Ox 98 07/05/23 06:00 O2 Del Method Blow-by 07/05/23 06:00 O2 Flow Rate 6 07/05/23 06:00 FiO2 28 07/05/23 06:00 Neurological:: alert Speech:: nods head, mouths words (sometimes) and appropriate Answers questions:: sometimes Respiratory:: shallow breathing Cardiovascular: RRR Abdomen: soft and nontender Extremities:: deformities Decubitus:: none Tracheostomy:: to blow by Feeding per:: G tube Complaints:: none ASSESSMENT & PLAN Assessment: pt comfortable, dependant for care; treatment reviewed and continued Plan: Current treatment to continue
[2023-07-05 17:47] VITALS: BP 149/88; PULSE 77; RESP 19; TEMP 36.3
[2023-07-05 20:30] VITALS: BP 149/88; PULSE 77
[2023-07-05] MEDS: LOSARTAN 100 MG TABLET GT (20:30)
[2023-07-05] MEDS: SENNOSIDES 8.6 MG TABLET 17.2 MG GT (20:31)
[2023-07-06] VITALS (8 sets, daily range): BP systolic 114–169; BP diastolic 70–83; PULSE 55–74; RESP 18–19; TEMP 36.2–36.6; O2SAT 94–96
[2023-07-06] MEDS: SOD PHOS DI, MONO/K PHOS MONO 250 MG TABLET GT (08:14)
[2023-07-06] MEDS: MULTIVIT-MIN/IRON FUM/FOLIC AC 1 EACH TABLET GT (08:14)
[2023-07-06] MEDS: SODIUM CHLORIDE TAB 1,000 MG TABLET.SOL 1000 MG GT ×2 (08:14→20:15)
[2023-07-06] MEDS: ESOMEPRAZOLE 40 MG GT (08:14)
[2023-07-06] MEDS: LOSARTAN 100 MG TABLET GT (20:15)
[2023-07-06] MEDS: SENNOSIDES 8.6 MG TABLET 17.2 MG GT (20:15)
[2023-07-07] VITALS (8 sets, daily range): BP systolic 118–160; BP diastolic 67–93; PULSE 51–74; RESP 16–20; TEMP 36.1–36.6; O2SAT 94–96
[2023-07-07] MEDS: MULTIVIT-MIN/IRON FUM/FOLIC AC 1 EACH TABLET GT (08:08)
[2023-07-07] MEDS: SOD PHOS DI, MONO/K PHOS MONO 250 MG TABLET GT (08:08)
[2023-07-07] MEDS: ESOMEPRAZOLE 40 MG GT (08:08)
[2023-07-07] MEDS: SODIUM CHLORIDE TAB 1,000 MG TABLET.SOL 1000 MG GT ×2 (08:08→20:32)
[2023-07-07] MEDS: SENNOSIDES 8.6 MG TABLET 17.2 MG GT (20:32)
[2023-07-07] MEDS: LOSARTAN 100 MG TABLET GT (20:32)
[2023-07-08] VITALS (9 sets, daily range): BP systolic 110–141; BP diastolic 62–88; PULSE 60–84; RESP 18–20; TEMP 36.2–36.6; O2SAT 94–96
[2023-07-08] MEDS: MAGNESIUM HYDROXIDE 30 ML ORAL SUSP ML GT (08:11)
[2023-07-08] MEDS: SOD PHOS DI, MONO/K PHOS MONO 250 MG TABLET GT (08:12)
[2023-07-08] MEDS: ESOMEPRAZOLE 40 MG GT (08:12)
[2023-07-08] MEDS: MULTIVIT-MIN/IRON FUM/FOLIC AC 1 EACH TABLET GT (08:12)
[2023-07-08] MEDS: SODIUM CHLORIDE TAB 1,000 MG TABLET.SOL 1000 MG GT ×2 (08:12→21:31)
[2023-07-08] MEDS: LOSARTAN 100 MG TABLET GT (21:31)
[2023-07-08] MEDS: SENNOSIDES 8.6 MG TABLET 17.2 MG GT (21:31)
[2023-07-09] VITALS (7 sets, daily range): BP systolic 125–140; BP diastolic 78–86; PULSE 55–64; RESP 18–20; TEMP 36.1–36.4; O2SAT 94–96
[2023-07-09] MEDS: SOD PHOS DI, MONO/K PHOS MONO 250 MG TABLET GT (08:04)
[2023-07-09] MEDS: MULTIVIT-MIN/IRON FUM/FOLIC AC 1 EACH TABLET GT (08:04)
[2023-07-09] MEDS: ESOMEPRAZOLE 40 MG GT (08:04)
[2023-07-09] MEDS: SODIUM CHLORIDE TAB 1,000 MG TABLET.SOL 1000 MG GT ×2 (08:04→20:29)
--- NOTE | 2023-07-09 11:44 | PD.SAPROG ---
Progress Note - SubAcute SUBJECTIVE Fever:: none GI:: none Shortness of Breath:: none GI:: no complaints Pain:: none OBJECTIVE Most recent vital signs: Last Vital Signs Temp 97.6 F 07/09/23 11:36 Pulse 55 L 07/09/23 11:36 Resp 18 07/09/23 11:36 BP 135/80 H 07/09/23 11:36 Pulse Ox 96 07/09/23 07:25 O2 Del Method Blow-by 07/07/23 17:35 O2 Flow Rate 6 07/09/23 07:25 FiO2 28 07/09/23 07:25 Neurological:: alert Speech:: nods head, mouths words (sometimes) and appropriate Answers questions:: sometimes Respiratory:: shallow breathing Cardiovascular: RRR Abdomen: soft and nontender Extremities:: deformities Decubitus:: none Tracheostomy:: to blow by Feeding per:: G tube Complaints:: none ASSESSMENT & PLAN Assessment: pt comfortable, dependant for care; treatment reviewed and continued Plan: Current treatment to continue
[2023-07-09] MEDS: LOSARTAN 100 MG TABLET GT (20:28)
[2023-07-09] MEDS: SENNOSIDES 8.6 MG TABLET 17.2 MG GT (20:29)
[2023-07-10] VITALS (7 sets, daily range): BP systolic 121–162; BP diastolic 76–87; PULSE 53–69; RESP 16–20; TEMP 36–36.6; O2SAT 95–98
[2023-07-10] MEDS: ESOMEPRAZOLE 40 MG GT (08:21)
[2023-07-10] MEDS: SOD PHOS DI, MONO/K PHOS MONO 250 MG TABLET GT (08:21)
[2023-07-10] MEDS: MULTIVIT-MIN/IRON FUM/FOLIC AC 1 EACH TABLET GT (08:21)
[2023-07-10] MEDS: SODIUM CHLORIDE TAB 1,000 MG TABLET.SOL 1000 MG GT ×2 (08:21→21:14)
[2023-07-10] MEDS: LOSARTAN 100 MG TABLET GT (21:14)
[2023-07-10] MEDS: SENNOSIDES 8.6 MG TABLET 17.2 MG GT (21:14)
[2023-07-11] VITALS (7 sets, daily range): BP systolic 99–155; BP diastolic 67–90; PULSE 54–95; RESP 14–19; TEMP 36.1–36.3; O2SAT 95–99
[2023-07-11] MEDS: ESOMEPRAZOLE 40 MG GT (08:34)
[2023-07-11] MEDS: MULTIVIT-MIN/IRON FUM/FOLIC AC 1 EACH TABLET GT (08:35)
[2023-07-11] MEDS: SOD PHOS DI, MONO/K PHOS MONO 250 MG TABLET GT (08:35)
[2023-07-11] MEDS: SODIUM CHLORIDE TAB 1,000 MG TABLET.SOL 1000 MG GT ×2 (08:36→21:14)
[2023-07-11] MEDS: MAGNESIUM HYDROXIDE 30 ML ORAL SUSP ML GT (09:08)
[2023-07-11] MEDS: LOSARTAN 100 MG TABLET GT (21:14)
[2023-07-11] MEDS: SENNOSIDES 8.6 MG TABLET 17.2 MG GT (21:15)
[2023-07-12] VITALS (7 sets, daily range): BP systolic 104–145; BP diastolic 73–89; PULSE 60–79; RESP 16–18; TEMP 36.3–36.4; O2SAT 96–98
[2023-07-12] MEDS: SOD PHOS DI, MONO/K PHOS MONO 250 MG TABLET GT (08:08)
[2023-07-12] MEDS: ESOMEPRAZOLE 40 MG GT (08:08)
[2023-07-12] MEDS: SODIUM CHLORIDE TAB 1,000 MG TABLET.SOL 1000 MG GT ×2 (08:09→20:45)
[2023-07-12] MEDS: MULTIVIT-MIN/IRON FUM/FOLIC AC 1 EACH TABLET GT (08:09)
--- NOTE | 2023-07-12 13:08 | CHAP ---
11:00 AM Visited by spiritual care volunteer Provided prayer for Patient.
[2023-07-12] MEDS: SENNOSIDES 8.6 MG TABLET 17.2 MG GT (20:44)
[2023-07-12] MEDS: LOSARTAN 100 MG TABLET GT (20:45)
[2023-07-13] VITALS (7 sets, daily range): BP systolic 117–156; BP diastolic 79–90; PULSE 59–75; RESP 16–19; TEMP 36.2–36.8; O2SAT 94–98
[2023-07-13] MEDS: ESOMEPRAZOLE 40 MG GT (08:01)
[2023-07-13] MEDS: MULTIVIT-MIN/IRON FUM/FOLIC AC 1 EACH TABLET GT (08:01)
[2023-07-13] MEDS: SOD PHOS DI, MONO/K PHOS MONO 250 MG TABLET GT (08:01)
[2023-07-13] MEDS: SODIUM CHLORIDE TAB 1,000 MG TABLET.SOL 1000 MG GT ×2 (08:01→20:05)
--- NOTE | 2023-07-13 11:25 | CHAP ---
Patient was visited by the Spiritual Care Volunteer who prayed for them. (Volunteer was in the hospital from 9:40-11:25).
--- NOTE | 2023-07-13 13:50 | PD.SAPROG ---
Progress Note - SubAcute SUBJECTIVE Fever:: none GI:: none Shortness of Breath:: none GI:: no complaints Pain:: none OBJECTIVE Most recent vital signs: Last Vital Signs Temp 97.6 F 07/17/23 06:00 Pulse 73 07/17/23 06:00 Resp 19 07/17/23 06:00 BP 141/83 H 07/17/23 06:00 Pulse Ox 96 07/17/23 06:00 O2 Del Method Blow-by 07/17/23 06:00 O2 Flow Rate 6 07/17/23 06:00 FiO2 28 07/17/23 06:00 Neurological:: alert Speech:: nods head, mouths words (sometimes) and appropriate Answers questions:: sometimes Respiratory:: shallow breathing Cardiovascular: RRR Abdomen: soft and nontender Extremities:: deformities Decubitus:: none Tracheostomy:: to blow by Feeding per:: G tube Complaints:: none ASSESSMENT & PLAN Assessment: pt comfortable, dependant for care; treatment reviewed and continued Plan: Current treatment to continue
--- NOTE | 2023-07-13 14:51 | PC.SS ---
Room Visit: Resident is laying in bed with head of the bed elevated with call light properly placed. Resident is well groomed, in good spirits showing no changes in mood or behavior. Resident will remain in current care as she is total care unable to makes needs known. Resident will remain in current care and will have all needs met for subacute care.
[2023-07-13] MEDS: LOSARTAN 100 MG TABLET GT (20:05)
[2023-07-13] MEDS: SENNOSIDES 8.6 MG TABLET 17.2 MG GT (20:05)
[2023-07-14] VITALS (7 sets, daily range): BP systolic 101–152; BP diastolic 65–87; PULSE 54–83; RESP 18–20; TEMP 36.3–36.9; O2SAT 97–100
[2023-07-14] MEDS: MULTIVIT-MIN/IRON FUM/FOLIC AC 1 EACH TABLET GT (08:09)
[2023-07-14] MEDS: SOD PHOS DI, MONO/K PHOS MONO 250 MG TABLET GT (08:09)
[2023-07-14] MEDS: ESOMEPRAZOLE 40 MG GT (08:09)
[2023-07-14] MEDS: SODIUM CHLORIDE TAB 1,000 MG TABLET.SOL 1000 MG GT ×2 (08:09→20:49)
[2023-07-14] MEDS: SENNOSIDES 8.6 MG TABLET 17.2 MG GT (20:49)
[2023-07-14] MEDS: LOSARTAN 100 MG TABLET GT (20:49)
[2023-07-15] VITALS (7 sets, daily range): BP systolic 105–168; BP diastolic 68–87; PULSE 55–77; RESP 18; TEMP 36.3–36.5; O2SAT 96–98
[2023-07-15] MEDS: SODIUM CHLORIDE TAB 1,000 MG TABLET.SOL 1000 MG GT ×2 (08:02→21:44)
[2023-07-15] MEDS: ESOMEPRAZOLE 40 MG GT (08:02)
[2023-07-15] MEDS: SOD PHOS DI, MONO/K PHOS MONO 250 MG TABLET GT (08:02)
[2023-07-15] MEDS: MULTIVIT-MIN/IRON FUM/FOLIC AC 1 EACH TABLET GT (08:02)
[2023-07-15] MEDS: SENNOSIDES 8.6 MG TABLET 17.2 MG GT (21:43)
[2023-07-15] MEDS: LOSARTAN 100 MG TABLET GT (21:47)
[2023-07-15] MEDS: MAGNESIUM HYDROXIDE 30 ML ORAL SUSP ML GT (21:48)
[2023-07-16] VITALS (7 sets, daily range): BP systolic 108–145; BP diastolic 71–93; PULSE 61–81; RESP 18; TEMP 36.3–36.6; O2SAT 94–99
[2023-07-16] MEDS: SOD PHOS DI, MONO/K PHOS MONO 250 MG TABLET GT (08:28)
[2023-07-16] MEDS: MULTIVIT-MIN/IRON FUM/FOLIC AC 1 EACH TABLET GT (08:28)
[2023-07-16] MEDS: ESOMEPRAZOLE 40 MG GT (08:28)
[2023-07-16] MEDS: SODIUM CHLORIDE TAB 1,000 MG TABLET.SOL 1000 MG GT ×2 (08:28→20:33)
[2023-07-16] MEDS: LOSARTAN 100 MG TABLET GT (20:32)
[2023-07-16] MEDS: SENNOSIDES 8.6 MG TABLET 17.2 MG GT (20:32)
[2023-07-17] VITALS (9 sets, daily range): BP systolic 123–160; BP diastolic 68–92; PULSE 57–81; RESP 14–19; TEMP 36.1–36.4; O2SAT 95–97
[2023-07-17] MEDS: ESOMEPRAZOLE 40 MG GT (09:25)
[2023-07-17] MEDS: SODIUM CHLORIDE TAB 1,000 MG TABLET.SOL 1000 MG GT ×2 (09:25→20:19)
[2023-07-17] MEDS: MULTIVIT-MIN/IRON FUM/FOLIC AC 1 EACH TABLET GT (09:25)
[2023-07-17] MEDS: SOD PHOS DI, MONO/K PHOS MONO 250 MG TABLET GT (09:25)
--- NOTE | 2023-07-17 11:53 | PC.SS ---
Resident seen by public health registrar/Dr. Berry for routine toe nail care, no new orders or recommendations at this time. Resident will continue current care.
[2023-07-17] MEDS: LOSARTAN 100 MG TABLET GT (20:17)
[2023-07-17] MEDS: SENNOSIDES 8.6 MG TABLET 17.2 MG GT (20:19)
[2023-07-18] VITALS (7 sets, daily range): BP systolic 122–169; BP diastolic 74–83; PULSE 60–72; RESP 16–20; TEMP 36.3–36.6; O2SAT 96–97
[2023-07-18] MEDS: ESOMEPRAZOLE 40 MG GT (08:29)
[2023-07-18] MEDS: SOD PHOS DI, MONO/K PHOS MONO 250 MG TABLET GT (08:29)
[2023-07-18] MEDS: MULTIVIT-MIN/IRON FUM/FOLIC AC 1 EACH TABLET GT (08:29)
[2023-07-18] MEDS: SODIUM CHLORIDE TAB 1,000 MG TABLET.SOL 1000 MG GT ×2 (08:29→20:30)
--- NOTE | 2023-07-18 15:57 | PC.NURSE ---
Resident received complete bed bath with linen change provided. Resident tolerated well.
[2023-07-18] MEDS: LOSARTAN 100 MG TABLET GT (20:29)
[2023-07-18] MEDS: SENNOSIDES 8.6 MG TABLET 17.2 MG GT (20:30)
[2023-07-19] VITALS (7 sets, daily range): BP systolic 101–164; BP diastolic 64–87; PULSE 60–66; RESP 18–20; TEMP 36.2–36.4; O2SAT 96–98
[2023-07-19] MEDS: ESOMEPRAZOLE 40 MG GT (08:18)
[2023-07-19] MEDS: SODIUM CHLORIDE TAB 1,000 MG TABLET.SOL 1000 MG GT ×2 (08:18→20:20)
[2023-07-19] MEDS: MULTIVIT-MIN/IRON FUM/FOLIC AC 1 EACH TABLET GT (08:18)
[2023-07-19] MEDS: SOD PHOS DI, MONO/K PHOS MONO 250 MG TABLET GT (08:18)
--- NOTE | 2023-07-19 12:56 | CHAP ---
11:00 AM Visited by spiritual care volunteer Provided prayer for Patient.
[2023-07-19] MEDS: LOSARTAN 100 MG TABLET GT (20:18)
[2023-07-19] MEDS: SENNOSIDES 8.6 MG TABLET 17.2 MG GT (20:19)
[2023-07-20] VITALS (7 sets, daily range): BP systolic 117–161; BP diastolic 75–89; PULSE 56–98; RESP 16–20; TEMP 36.4–36.9; O2SAT 95–97
[2023-07-20] MEDS: MULTIVIT-MIN/IRON FUM/FOLIC AC 1 EACH TABLET GT (08:29)
[2023-07-20] MEDS: SOD PHOS DI, MONO/K PHOS MONO 250 MG TABLET GT (08:29)
[2023-07-20] MEDS: SODIUM CHLORIDE TAB 1,000 MG TABLET.SOL 1000 MG GT ×2 (08:29→22:29)
[2023-07-20] MEDS: ESOMEPRAZOLE 40 MG GT (08:29)
--- NOTE | 2023-07-20 10:54 | CHAP ---
Spiritual Care Volunteer prayed for patient. (Volunteer was in the hospital from 09:38-12:50).
--- NOTE | 2023-07-20 15:13 | PC.SS ---
Room visit: Resident is laying in bed with head of the bed elevated, resident is well groomed with call light properly placed with no signs of distress. Resident currently does not have any care or condition, resident will remain in current care. SSD to continue to make daily contact with resident and monitor mood and behavior for any changes.
[2023-07-20] MEDS: LOSARTAN 100 MG TABLET GT (22:28)
[2023-07-20] MEDS: SENNOSIDES 8.6 MG TABLET 17.2 MG GT (22:29)
[2023-07-21] VITALS (7 sets, daily range): BP systolic 107–124; BP diastolic 70–78; PULSE 59–89; RESP 17–20; TEMP 35.9–37; O2SAT 93–99
[2023-07-21] MEDS: ESOMEPRAZOLE 40 MG GT (09:46)
[2023-07-21] MEDS: MULTIVIT-MIN/IRON FUM/FOLIC AC 1 EACH TABLET GT (09:47)
[2023-07-21] MEDS: SODIUM CHLORIDE TAB 1,000 MG TABLET.SOL 1000 MG GT ×2 (09:47→20:08)
[2023-07-21] MEDS: SOD PHOS DI, MONO/K PHOS MONO 250 MG TABLET GT (09:47)
[2023-07-21] MEDS: LOSARTAN 100 MG TABLET GT (20:07)
[2023-07-21] MEDS: SENNOSIDES 8.6 MG TABLET 17.2 MG GT (20:08)
--- NOTE | 2023-07-21 23:41 | PD.SAPROG ---
Progress Note - SubAcute SUBJECTIVE Fever:: none GI:: none Shortness of Breath:: none GI:: no complaints Pain:: none OBJECTIVE Most recent vital signs: Last Vital Signs Temp 96.6 F L 07/21/23 18:00 Pulse 74 07/21/23 20:07 Resp 18 07/21/23 18:00 BP 120/74 07/21/23 20:07 Pulse Ox 94 L 07/21/23 18:00 O2 Del Method Blow-by 07/20/23 17:49 O2 Flow Rate 6 07/21/23 07:55 FiO2 28 07/21/23 07:55 Neurological:: alert Speech:: nods head, mouths words (sometimes) and appropriate Answers questions:: sometimes Respiratory:: shallow breathing Cardiovascular: RRR Abdomen: soft and nontender Extremities:: deformities Decubitus:: none Tracheostomy:: to blow by Feeding per:: G tube Complaints:: none ASSESSMENT & PLAN Assessment: pt comfortable, dependant for care; treatment reviewed and continued Plan: Current treatment to continue
[2023-07-22] VITALS (8 sets, daily range): BP systolic 118–153; BP diastolic 69–82; PULSE 66–80; RESP 18–20; TEMP 36.1–36.6; O2SAT 94–97
[2023-07-22] MEDS: CARBAMIDE PEROXIDE OTIC SOL 15 ML BTL 5 DROP BOTH EARS (08:47)
[2023-07-22] MEDS: SODIUM CHLORIDE TAB 1,000 MG TABLET.SOL 1000 MG GT ×2 (08:47→20:19)
[2023-07-22] MEDS: SOD PHOS DI, MONO/K PHOS MONO 250 MG TABLET GT (08:47)
[2023-07-22] MEDS: MULTIVIT-MIN/IRON FUM/FOLIC AC 1 EACH TABLET GT (08:47)
[2023-07-22] MEDS: ESOMEPRAZOLE 40 MG GT (08:47)
[2023-07-22] MEDS: LOSARTAN 100 MG TABLET GT (20:17)
[2023-07-22] MEDS: SENNOSIDES 8.6 MG TABLET 17.2 MG GT (20:18)
[2023-07-23 05:48] VITALS: BP 124/74; PULSE 71; RESP 18; TEMP 36.2; O2SAT 98
[2023-07-23 07:51] VITALS: PULSE 62; RESP 18; O2SAT 94; O2SAT 95
[2023-07-23] MEDS: MULTIVIT-MIN/IRON FUM/FOLIC AC 1 EACH TABLET GT (08:20)
[2023-07-23] MEDS: ESOMEPRAZOLE 40 MG GT (08:20)
[2023-07-23] MEDS: SOD PHOS DI, MONO/K PHOS MONO 250 MG TABLET GT (08:20)
[2023-07-23] MEDS: SODIUM CHLORIDE TAB 1,000 MG TABLET.SOL 1000 MG GT ×2 (08:20→20:38)
[2023-07-23 12:00] VITALS: BP 169/98; PULSE 73; RESP 16; TEMP 36.1
[2023-07-23 17:25] VITALS: BP 101/68; PULSE 60; RESP 18; TEMP 36
[2023-07-23 19:10] VITALS: PULSE 74; RESP 18; O2SAT 95
[2023-07-23 20:37] VITALS: BP 139/84; PULSE 78
[2023-07-23] MEDS: LOSARTAN 100 MG TABLET GT (20:37)
[2023-07-23] MEDS: SENNOSIDES 8.6 MG TABLET 17.2 MG GT (20:38)
[2023-07-24] VITALS (7 sets, daily range): BP systolic 135–169; BP diastolic 69–83; PULSE 41–61; RESP 18–19; TEMP 36.1; O2SAT 97–98
[2023-07-24] MEDS: ESOMEPRAZOLE 40 MG GT (09:24)
[2023-07-24] MEDS: MULTIVIT-MIN/IRON FUM/FOLIC AC 1 EACH TABLET GT (09:25)
[2023-07-24] MEDS: SODIUM CHLORIDE TAB 1,000 MG TABLET.SOL 1000 MG GT ×2 (09:25→20:08)
[2023-07-24] MEDS: SOD PHOS DI, MONO/K PHOS MONO 250 MG TABLET GT (09:25)
--- NOTE | 2023-07-24 10:30 | PC.NURSE ---
Resident did not go to tank processor activities as it was cancelled by Manager [employer].
[2023-07-24] MEDS: LOSARTAN 100 MG TABLET GT (20:07)
[2023-07-24] MEDS: SENNOSIDES 8.6 MG TABLET 17.2 MG GT (20:08)
[2023-07-25] VITALS (7 sets, daily range): BP systolic 118–142; BP diastolic 69–82; PULSE 59–84; RESP 16–20; TEMP 35.8–36.4; O2SAT 92–99
[2023-07-25] MEDS: ESOMEPRAZOLE 40 MG GT (09:31)
[2023-07-25] MEDS: SOD PHOS DI, MONO/K PHOS MONO 250 MG TABLET GT (09:32)
[2023-07-25] MEDS: SODIUM CHLORIDE TAB 1,000 MG TABLET.SOL 1000 MG GT (09:33)
[2023-07-25] MEDS: MULTIVIT-MIN/IRON FUM/FOLIC AC 1 EACH TABLET GT (09:33)
--- NOTE | 2023-07-25 20:47 | PD.SAPROG ---
Progress Note - SubAcute SUBJECTIVE Fever:: none GI:: none Shortness of Breath:: none GI:: no complaints Pain:: none OBJECTIVE Most recent vital signs: Last Vital Signs Temp 96.4 F L 07/25/23 05:55 Pulse 68 07/25/23 06:00 Resp 16 07/25/23 06:00 BP 129/80 07/25/23 05:55 Pulse Ox 92 L 07/25/23 06:00 O2 Del Method Blow-by 07/25/23 05:55 O2 Flow Rate 6 07/25/23 06:00 FiO2 28 07/25/23 06:00 Neurological:: alert Speech:: nods head, mouths words (sometimes) and appropriate Answers questions:: sometimes Respiratory:: shallow breathing Cardiovascular: RRR Abdomen: soft and nontender Extremities:: deformities Decubitus:: none Tracheostomy:: to blow by Feeding per:: G tube Complaints:: none ASSESSMENT & PLAN Assessment: pt comfortable, dependant for care; treatment reviewed and continued Plan: Current treatment to continue
[2023-07-26] VITALS (7 sets, daily range): BP systolic 118–148; BP diastolic 75–83; PULSE 66–89; RESP 16–18; TEMP 36.2–36.7; O2SAT 95–99
[2023-07-26] MEDS: SODIUM CHLORIDE TAB 1,000 MG TABLET.SOL 1000 MG GT ×2 (09:57→21:33)
[2023-07-26] MEDS: MULTIVIT-MIN/IRON FUM/FOLIC AC 1 EACH TABLET GT (09:58)
[2023-07-26] MEDS: SOD PHOS DI, MONO/K PHOS MONO 250 MG TABLET GT (09:58)
[2023-07-26] MEDS: ESOMEPRAZOLE 40 MG GT (09:58)
--- NOTE | 2023-07-26 13:29 | CHAP ---
11:00 AM Visited by spiritual care volunteer Provided prayer for Patient.
[2023-07-26] MEDS: LOSARTAN 100 MG TABLET GT (21:32)
[2023-07-26] MEDS: SENNOSIDES 8.6 MG TABLET 17.2 MG GT (21:33)
[2023-07-27] VITALS: BP 121/79; PULSE 80; RESP 20; TEMP 36.6
[2023-07-27 05:54] VITALS: BP 128/74; PULSE 80; RESP 18; TEMP 36.5; O2SAT 97
[2023-07-27 06:00] VITALS: PULSE 61; RESP 18; O2SAT 98
[2023-07-27] MEDS: SODIUM CHLORIDE TAB 1,000 MG TABLET.SOL 1000 MG GT ×2 (08:04→21:07)
[2023-07-27] MEDS: ESOMEPRAZOLE 40 MG GT (08:05)
[2023-07-27] MEDS: MULTIVIT-MIN/IRON FUM/FOLIC AC 1 EACH TABLET GT (08:05)
[2023-07-27] MEDS: SOD PHOS DI, MONO/K PHOS MONO 250 MG TABLET GT (08:05)
[2023-07-27 11:58] VITALS: BP 156/95; PULSE 70; RESP 18; TEMP 36.5
[2023-07-27 17:38] VITALS: BP 144/73; PULSE 54; RESP 18; TEMP 36.5; O2SAT 97
[2023-07-27 21:06] VITALS: BP 139/78; PULSE 74
[2023-07-27] MEDS: LOSARTAN 100 MG TABLET GT (21:06)
[2023-07-27] MEDS: SENNOSIDES 8.6 MG TABLET 17.2 MG GT (21:07)
[2023-07-27] MEDS: MAGNESIUM HYDROXIDE 30 ML ORAL SUSP ML GT (21:14)
[2023-07-28] VITALS (7 sets, daily range): BP systolic 112–151; BP diastolic 74–81; PULSE 52–69; RESP 16–18; TEMP 36.2–36.3; O2SAT 94–97
[2023-07-28] MEDS: SODIUM CHLORIDE TAB 1,000 MG TABLET.SOL 1000 MG GT ×2 (08:02→21:23)
[2023-07-28] MEDS: SOD PHOS DI, MONO/K PHOS MONO 250 MG TABLET GT (08:02)
[2023-07-28] MEDS: MULTIVIT-MIN/IRON FUM/FOLIC AC 1 EACH TABLET GT (08:02)
[2023-07-28] MEDS: ESOMEPRAZOLE 40 MG GT (08:02)
[2023-07-28] MEDS: LOSARTAN 100 MG TABLET GT (21:22)
[2023-07-28] MEDS: SENNOSIDES 8.6 MG TABLET 17.2 MG GT (21:23)
[2023-07-28] MEDS: MAGNESIUM HYDROXIDE 30 ML ORAL SUSP ML GT (21:23)
[2023-07-29] VITALS (8 sets, daily range): BP systolic 109–163; BP diastolic 72–86; PULSE 19–65; RESP 16–24; TEMP 36.1–36.4; O2SAT 94–98
[2023-07-29] MEDS: ESOMEPRAZOLE 40 MG GT (08:07)
[2023-07-29] MEDS: SODIUM CHLORIDE TAB 1,000 MG TABLET.SOL 1000 MG GT ×2 (08:07→20:10)
[2023-07-29] MEDS: MULTIVIT-MIN/IRON FUM/FOLIC AC 1 EACH TABLET GT (08:08)
[2023-07-29] MEDS: SOD PHOS DI, MONO/K PHOS MONO 250 MG TABLET GT (08:08)
--- NOTE | 2023-07-29 15:48 | PD.SAPROG ---
Progress Note - SubAcute SUBJECTIVE Fever:: none GI:: none Shortness of Breath:: none GI:: no complaints Pain:: none OBJECTIVE Most recent vital signs: Last Vital Signs Temp 97.5 F 07/29/23 11:27 Pulse 19 L 07/29/23 11:27 Resp 19 07/29/23 11:27 BP 163/86 H 07/29/23 11:27 Pulse Ox 94 L 07/29/23 07:07 O2 Del Method Blow-by 07/26/23 17:26 O2 Flow Rate 6 07/29/23 07:07 FiO2 07/29/23 07:07 Neurological:: alert Speech:: nods head, mouths words (sometimes) and appropriate Answers questions:: sometimes Respiratory:: shallow breathing Cardiovascular: RRR Abdomen: soft and nontender Extremities:: deformities Decubitus:: none Tracheostomy:: to blow by Feeding per:: G tube Complaints:: none ASSESSMENT & PLAN Assessment: pt comfortable, dependant for care; treatment reviewed and continued Plan: Current treatment to continue
[2023-07-29] MEDS: LOSARTAN 100 MG TABLET GT (20:09)
[2023-07-29] MEDS: SENNOSIDES 8.6 MG TABLET 17.2 MG GT (20:10)
[2023-07-30] VITALS: BP 120/77; PULSE 53; RESP 16; TEMP 36.4
[2023-07-30 05:50] VITALS: BP 135/84; PULSE 64; RESP 18; TEMP 36.3; O2SAT 95
[2023-07-30 07:10] VITALS: PULSE 59; RESP 16; O2SAT 96
[2023-07-30] MEDS: ESOMEPRAZOLE 40 MG GT (09:34)
[2023-07-30] MEDS: SODIUM CHLORIDE TAB 1,000 MG TABLET.SOL 1000 MG GT ×2 (09:34→21:34)
[2023-07-30] MEDS: SOD PHOS DI, MONO/K PHOS MONO 250 MG TABLET GT (09:34)
[2023-07-30] MEDS: MULTIVIT-MIN/IRON FUM/FOLIC AC 1 EACH TABLET GT (09:35)
--- NOTE | 2023-07-30 10:51 | CHAP ---
Addendum entered by Steve Vázquez 07/30/23 10:52: [Patient was visited by the Spiritual [employer] Volunteer on 07/27/23 (not the ) Original Note: Patient was visited by the Spiritual Care Volunteer who prayed for them. (Volunteer was in the sub acute C 10:00-11:00)
--- NOTE | 2023-07-30 11:09 | PC.CWCCOMPLE ---
Hog Worker Pharmacist monthly MRR
[2023-07-30 11:54] VITALS: BP 181/83; PULSE 78; RESP 18; TEMP 36.3
[2023-07-30 18:00] VITALS: BP 160/83; PULSE 63; RESP 18; TEMP 36.1; O2SAT 97
[2023-07-30 21:34] VITALS: BP 138/79; PULSE 87
[2023-07-30] MEDS: SENNOSIDES 8.6 MG TABLET 17.2 MG GT (21:34)
[2023-07-30] MEDS: LOSARTAN 100 MG TABLET GT (21:34)
[2023-07-31] VITALS (7 sets, daily range): BP systolic 121–143; BP diastolic 84–95; PULSE 56–88; RESP 16–20; TEMP 36.1–36.4; O2SAT 93–98
[2023-07-31] MEDS: SODIUM CHLORIDE TAB 1,000 MG TABLET.SOL 1000 MG GT ×2 (08:05→20:24)
[2023-07-31] MEDS: MULTIVIT-MIN/IRON FUM/FOLIC AC 1 EACH TABLET GT (08:06)
[2023-07-31] MEDS: SOD PHOS DI, MONO/K PHOS MONO 250 MG TABLET GT (08:06)
[2023-07-31] MEDS: ESOMEPRAZOLE 40 MG GT (08:06)
--- NOTE | 2023-07-31 08:51 | PC.NURSE ---
Addendum entered by Julianne Coe RN 07/31/23 12:32: PATIENT HAD ANOTHER EMESIS AT ABOUT 10AM. FEEDING N HELD FOR 4 HRS NO FURTHER EMESIS. FEEDING RESUMED AND WILL MONITOR CLOSELY FOR ANY FURTHER EMESIS Original Note: PATIENT HAS HAD A COUPLE OF EMESIS, PEG FEEDING HELD AT THIS TIME. NO ANTIEMETIC ON MED PROFILE. V/S 97.9, 88, 20 92% 131/97. DR MARY CALLED AND INFORMED. STATED TO KEEP HER NPO FOR 4HRS AND WILL REEVALUATE THIS AFTERNOON WHEN HE COMES IN.
--- NOTE | 2023-07-31 13:50 | PD.SAPROG ---
Progress Note - SubAcute SUBJECTIVE Fever:: none GI:: none Shortness of Breath:: none GI:: no complaints Pain:: none OBJECTIVE Most recent vital signs: Last Vital Signs Temp 97.1 F 08/05/23 17:41 Pulse 72 08/05/23 17:41 Resp 18 08/05/23 17:41 BP 127/98 H 08/05/23 17:41 Pulse Ox 93 L 08/05/23 17:41 O2 Del Method Blow-by 08/05/23 06:00 O2 Flow Rate 6 08/05/23 06:42 FiO2 28 08/05/23 06:42 Neurological:: alert Speech:: nods head, mouths words (sometimes) and appropriate Answers questions:: sometimes Respiratory:: shallow breathing Cardiovascular: RRR Abdomen: soft and nontender Extremities:: deformities Decubitus:: none Tracheostomy:: to blow by Feeding per:: G tube Complaints:: none ASSESSMENT & PLAN Assessment: pt comfortable, dependant for care; treatment reviewed and continued Plan: Current treatment to continue
[2023-07-31] MEDS: COVID VAC 23-24(12UP)(ANDU)/PF 50 MCG/0.5 ML SYRINGE IMi (16:20)
--- NOTE | 2023-07-31 18:42 | PC.NURSE ---
Resident tube feeding resumed at about 1230, no residuals noted and tolerating tube feeding well. Notified RN about resident being stable with tube feeding and no s/s of emesis noted. Also resident didn't dose complete, only had 343 of tube feeding. Call light within reach and will monitor closely.
[2023-07-31] MEDS: LOSARTAN 100 MG TABLET GT (20:23)
[2023-07-31] MEDS: SENNOSIDES 8.6 MG TABLET 17.2 MG GT (20:24)
[2023-07-31] MEDS: MAGNESIUM HYDROXIDE 30 ML ORAL SUSP ML GT (21:42)
[2023-08-01] VITALS (7 sets, daily range): BP systolic 122–153; BP diastolic 77–94; PULSE 64–86; RESP 18–19; TEMP 36.1–36.5; O2SAT 96–97
[2023-08-01] MEDS: SODIUM CHLORIDE TAB 1,000 MG TABLET.SOL 1000 MG GT ×2 (09:38→21:28)
[2023-08-01] MEDS: SOD PHOS DI, MONO/K PHOS MONO 250 MG TABLET GT (09:39)
[2023-08-01] MEDS: MULTIVIT-MIN/IRON FUM/FOLIC AC 1 EACH TABLET GT (09:39)
[2023-08-01] MEDS: ESOMEPRAZOLE 40 MG GT (09:39)
--- NOTE | 2023-08-01 13:52 | PC.NURSE ---
See EMR Summary for further Immunization charting. Resident received Covid-19 Spikevax booster for -24 after informed consent received by RP. Left deltoid Moderna Spikevax Lot [id number] Exp: 10/24/23.
[2023-08-01] MEDS: SENNOSIDES 8.6 MG TABLET 17.2 MG GT (21:28)
[2023-08-01] MEDS: LOSARTAN 100 MG TABLET GT (21:28)
[2023-08-02] VITALS (8 sets, daily range): BP systolic 112–156; BP diastolic 60–87; PULSE 66–79; RESP 18; TEMP 36.1–36.4; O2SAT 93–98
[2023-08-02 07:33] LABS: Albumin, Serum 4.3 gm/dL (3.4-4.8); Anion Gap 7 (7-16); BUN/Creatinine Ratio 30 Ratio (12-20); Blood Urea Nitrogen 15 mg/dL (9-23); Calcium 9.9 mg/dL (8.3-10.6); Calcium (Corrected) 9.9 mg/dL (8.5-10.1); Carbon Dioxide 26.6 mMol/L (20.0-31.0); Chloride 102 mMol/L (98-107); Creatinine (Component) 0.5 mg/dL (0.6-1.3); Estimated Creatinine Clearance 82.4 mL/min (>60); Glucose 86 mg/dL (74-106); Osmolality,Calculated 271 (275-295); Phosphorous 4.2 mg/dL (2.4-5.1); Potassium 4.6 mMol/L (3.4-5.1); Sodium 136 mMol/L (136-145); eGFR > 60 See Note
[2023-08-02] MEDS: SODIUM CHLORIDE TAB 1,000 MG TABLET.SOL 1000 MG GT ×3 (09:43→21:29)
[2023-08-02] MEDS: SOD PHOS DI, MONO/K PHOS MONO 250 MG TABLET GT (09:44)
[2023-08-02] MEDS: MULTIVIT-MIN/IRON FUM/FOLIC AC 1 EACH TABLET GT (09:44)
[2023-08-02] MEDS: ESOMEPRAZOLE 40 MG GT (09:44)
--- NOTE | 2023-08-02 13:34 | CHAP ---
11:30 AM Visited by spiritual care volunteer Provided prayer for Patient.
[2023-08-02] MEDS: SENNOSIDES 8.6 MG TABLET 17.2 MG GT (21:29)
[2023-08-02] MEDS: LOSARTAN 100 MG TABLET GT (21:29)
[2023-08-03] VITALS (7 sets, daily range): BP systolic 130–156; BP diastolic 81–88; PULSE 62–75; RESP 16–18; TEMP 36.2; O2SAT 94–97
[2023-08-03] MEDS: SOD PHOS DI, MONO/K PHOS MONO 250 MG TABLET GT (08:24)
[2023-08-03] MEDS: SODIUM CHLORIDE TAB 1,000 MG TABLET.SOL 1000 MG GT ×2 (08:24→20:05)
[2023-08-03] MEDS: MULTIVIT-MIN/IRON FUM/FOLIC AC 1 EACH TABLET GT (08:24)
[2023-08-03] MEDS: ESOMEPRAZOLE 40 MG GT (08:24)
[2023-08-03] MEDS: LOSARTAN 100 MG TABLET GT (20:05)
[2023-08-03] MEDS: SENNOSIDES 8.6 MG TABLET 17.2 MG GT (20:05)
[2023-08-03] MEDS: MAGNESIUM HYDROXIDE 30 ML ORAL SUSP ML GT (20:24)
[2023-08-04] VITALS (7 sets, daily range): BP systolic 107–173; BP diastolic 69–84; PULSE 66–77; RESP 16–20; TEMP 36.1–36.4; O2SAT 95–97
[2023-08-04] MEDS: MULTIVIT-MIN/IRON FUM/FOLIC AC 1 EACH TABLET GT (08:12)
[2023-08-04] MEDS: SOD PHOS DI, MONO/K PHOS MONO 250 MG TABLET GT (08:12)
[2023-08-04] MEDS: ESOMEPRAZOLE 40 MG GT (08:12)
[2023-08-04] MEDS: SODIUM CHLORIDE TAB 1,000 MG TABLET.SOL 1000 MG GT ×2 (08:12→20:04)
[2023-08-04] MEDS: LOSARTAN 100 MG TABLET GT (20:03)
[2023-08-04] MEDS: SENNOSIDES 8.6 MG TABLET 17.2 MG GT (20:04)
[2023-08-05] VITALS (7 sets, daily range): BP systolic 127–160; BP diastolic 88–98; PULSE 63–81; RESP 17–18; TEMP 36.1–36.3; O2SAT 93–97
[2023-08-05] MEDS: ESOMEPRAZOLE 40 MG GT (08:22)
[2023-08-05] MEDS: MULTIVIT-MIN/IRON FUM/FOLIC AC 1 EACH TABLET GT (08:22)
[2023-08-05] MEDS: SOD PHOS DI, MONO/K PHOS MONO 250 MG TABLET GT (08:22)
[2023-08-05] MEDS: SODIUM CHLORIDE TAB 1,000 MG TABLET.SOL 1000 MG GT ×2 (08:23→21:04)
[2023-08-05] MEDS: LOSARTAN 100 MG TABLET GT (21:03)
[2023-08-05] MEDS: SENNOSIDES 8.6 MG TABLET 17.2 MG GT (21:04)
[2023-08-06] VITALS (7 sets, daily range): BP systolic 123–156; BP diastolic 79–92; PULSE 69–85; RESP 18; TEMP 36.1–36.2; O2SAT 93–97
[2023-08-06] MEDS: MULTIVIT-MIN/IRON FUM/FOLIC AC 1 EACH TABLET GT (08:22)
[2023-08-06] MEDS: ESOMEPRAZOLE 40 MG GT (08:22)
[2023-08-06] MEDS: SODIUM CHLORIDE TAB 1,000 MG TABLET.SOL 1000 MG GT ×2 (08:22→20:31)
[2023-08-06] MEDS: SOD PHOS DI, MONO/K PHOS MONO 250 MG TABLET GT (08:22)
[2023-08-06] MEDS: SENNOSIDES 8.6 MG TABLET 17.2 MG GT (20:31)
[2023-08-06] MEDS: LOSARTAN 100 MG TABLET GT (20:31)
[2023-08-07] VITALS (8 sets, daily range): BP systolic 99–141; BP diastolic 73–89; PULSE 66–78; RESP 18–21; TEMP 36.2–36.6; O2SAT 95–96
[2023-08-07] MEDS: ESOMEPRAZOLE 40 MG GT (09:40)
[2023-08-07] MEDS: SOD PHOS DI, MONO/K PHOS MONO 250 MG TABLET GT (09:41)
[2023-08-07] MEDS: MULTIVIT-MIN/IRON FUM/FOLIC AC 1 EACH TABLET GT (09:41)
[2023-08-07] MEDS: SODIUM CHLORIDE TAB 1,000 MG TABLET.SOL 1000 MG GT ×2 (09:41→21:35)
[2023-08-07] MEDS: SENNOSIDES 8.6 MG TABLET 17.2 MG GT (21:35)
[2023-08-08] VITALS (8 sets, daily range): BP systolic 120–178; BP diastolic 73–91; PULSE 53–76; RESP 16–20; TEMP 35.8–36.3; O2SAT 95–98
[2023-08-08] MEDS: SODIUM CHLORIDE TAB 1,000 MG TABLET.SOL 1000 MG GT ×2 (09:32→20:17)
[2023-08-08] MEDS: SOD PHOS DI, MONO/K PHOS MONO 250 MG TABLET GT (09:32)
[2023-08-08] MEDS: ESOMEPRAZOLE 40 MG GT (09:32)
[2023-08-08] MEDS: MULTIVIT-MIN/IRON FUM/FOLIC AC 1 EACH TABLET GT (09:32)
[2023-08-08] MEDS: LOSARTAN 100 MG TABLET GT (20:16)
[2023-08-08] MEDS: SENNOSIDES 8.6 MG TABLET 17.2 MG GT (20:17)
[2023-08-09] VITALS: BP 149/78; PULSE 66; RESP 16; TEMP 36.3
[2023-08-09 06:00] VITALS: BP 136/78; PULSE 63; RESP 18; O2SAT 97
--- NOTE | 2023-08-09 08:00 | PC.NURSE ---
pt not in restraints at this time. pt not pulling at life sustaining tubing, confused, or altered at this time. pall light placed within reach, bed at lowest position, will continue to monitor.
[2023-08-09] MEDS: MULTIVIT-MIN/IRON FUM/FOLIC AC 1 EACH TABLET GT (09:16)
[2023-08-09] MEDS: ESOMEPRAZOLE 40 MG GT (09:16)
[2023-08-09] MEDS: SODIUM CHLORIDE TAB 1,000 MG TABLET.SOL 1000 MG GT ×2 (09:16→20:52)
[2023-08-09] MEDS: SOD PHOS DI, MONO/K PHOS MONO 250 MG TABLET GT (09:16)
[2023-08-09 11:56] VITALS: BP 133/93; PULSE 65; RESP 18; TEMP 36.2
--- NOTE | 2023-08-09 13:50 | PD.SAPROG ---
Progress Note - SubAcute SUBJECTIVE Fever:: none GI:: none Shortness of Breath:: none GI:: no complaints Pain:: none OBJECTIVE Most recent vital signs: Last Vital Signs Temp 97.5 F 08/13/23 17:47 Pulse 65 08/13/23 20:00 Resp 18 08/13/23 17:47 BP 137/84 H 08/13/23 20:00 Pulse Ox 96 08/13/23 17:47 O2 Del Method Blow-by 08/13/23 06:00 O2 Flow Rate 6 08/13/23 08:00 FiO2 28 08/13/23 08:00 Neurological:: alert Speech:: nods head, mouths words (sometimes) and appropriate Answers questions:: sometimes Respiratory:: shallow breathing Cardiovascular: RRR Abdomen: soft and nontender Extremities:: deformities Decubitus:: none Tracheostomy:: to blow by Feeding per:: G tube Complaints:: none ASSESSMENT & PLAN Assessment: pt comfortable, dependant for care; treatment reviewed and continued Plan: Current treatment to continue
--- NOTE | 2023-08-09 13:51 | CHAP ---
11:30 AM Visited by spiritual care volunteer Provided prayer for Patient.
--- NOTE | 2023-08-09 14:00 | PC.NURSE ---
pt not in restraints at this time. pt not pulling at life sustaining tubing, confused, or altered at this time. call light placed appropriately, bed at lowest position, will continue to monitor.
[2023-08-09 17:41] VITALS: BP 139/89; PULSE 70; RESP 18; TEMP 36.3; O2SAT 98
[2023-08-09 20:31] VITALS: PULSE 65; PULSE 66; RESP 18; O2SAT 96
[2023-08-09 20:50] VITALS: BP 156/93; PULSE 64
[2023-08-09] MEDS: LOSARTAN 100 MG TABLET GT (20:50)
[2023-08-09] MEDS: SENNOSIDES 8.6 MG TABLET 17.2 MG GT (20:52)
[2023-08-10] VITALS (7 sets, daily range): BP systolic 117–156; BP diastolic 74–84; PULSE 59–68; RESP 16–19; TEMP 36.1–36.4; O2SAT 95–98
[2023-08-10] MEDS: ESOMEPRAZOLE 40 MG GT (08:10)
[2023-08-10] MEDS: SOD PHOS DI, MONO/K PHOS MONO 250 MG TABLET GT (08:10)
[2023-08-10] MEDS: SODIUM CHLORIDE TAB 1,000 MG TABLET.SOL 1000 MG GT ×2 (08:11→20:14)
[2023-08-10] MEDS: MULTIVIT-MIN/IRON FUM/FOLIC AC 1 EACH TABLET GT (08:11)
--- NOTE | 2023-08-10 11:35 | PC.SS ---
Room visit: Resident is laying in bed with head of the bed elevated with call light properly placed with no signs of distress. Resident is sitting in Kaleigh chair with call light within reach. resident will remain in current care as she remains total care, unable to make needs known. Resident will continue to have all needs met for subacute.
--- NOTE | 2023-08-10 11:52 | CHAP ---
Patient was visited by the Spiritual Care Volunteer who prayed for them. (Volunteer was in the hospital 10:33-11:52)
[2023-08-10] MEDS: LOSARTAN 100 MG TABLET GT (20:14)
[2023-08-10] MEDS: SENNOSIDES 8.6 MG TABLET 17.2 MG GT (20:14)
[2023-08-11] VITALS (10 sets, daily range): BP systolic 115–156; BP diastolic 72–91; PULSE 58–80; RESP 18; TEMP 35.8–36.3; O2SAT 95–97
[2023-08-11] MEDS: MULTIVIT-MIN/IRON FUM/FOLIC AC 1 EACH TABLET GT (08:07)
[2023-08-11] MEDS: ESOMEPRAZOLE 40 MG GT (08:07)
[2023-08-11] MEDS: SOD PHOS DI, MONO/K PHOS MONO 250 MG TABLET GT (08:07)
[2023-08-11] MEDS: SODIUM CHLORIDE TAB 1,000 MG TABLET.SOL 1000 MG GT ×2 (08:07→20:11)
--- NOTE | 2023-08-11 18:12 | PC.NURSE ---
Resident noted with trach out at around 16:30 when staff went to resident's room to do the afternoon rounds .Resident alert and awake , no s/s of respiratory distress noted. Inserted trach without difficulty, no bleeding noted. Resident tolerated the procedure. Denies any pain or discomfort. V/S as follows: 156/89, 97.4, 71, 18, 96%. Right hand mitten re-applied . Dr Gonsalez was made aware, no new orders made.
[2023-08-11] MEDS: SENNOSIDES 8.6 MG TABLET 17.2 MG GT (20:11)
[2023-08-11] MEDS: LOSARTAN 100 MG TABLET GT (20:11)
[2023-08-12 05:51] VITALS: BP 139/86; PULSE 75; RESP 17; TEMP 36.3; O2SAT 95
[2023-08-12 06:00] VITALS: PULSE 66; RESP 18; O2SAT 97
[2023-08-12] MEDS: MULTIVIT-MIN/IRON FUM/FOLIC AC 1 EACH TABLET GT (08:00)
[2023-08-12] MEDS: ESOMEPRAZOLE 40 MG GT (08:00)
[2023-08-12] MEDS: SODIUM CHLORIDE TAB 1,000 MG TABLET.SOL 1000 MG GT ×2 (08:00→20:00)
[2023-08-12] MEDS: SOD PHOS DI, MONO/K PHOS MONO 250 MG TABLET GT (08:00)
--- NOTE | 2023-08-12 10:15 | CHAP ---
Patient was visited by the Spiritual Care Volunteer who prayed for them. (Volunteer was in the hospital 09:25-10:15)
[2023-08-12 12:00] VITALS: BP 148/90; PULSE 66; RESP 18; TEMP 36.1; O2SAT 96
[2023-08-12 18:00] VITALS: BP 112/68; PULSE 64; RESP 16; TEMP 36.1; O2SAT 97
[2023-08-12 20:00] VITALS: BP 119/69; PULSE 59
[2023-08-12] MEDS: LOSARTAN 100 MG TABLET GT (20:00)
[2023-08-12] MEDS: SENNOSIDES 8.6 MG TABLET 17.2 MG GT (20:00)
[2023-08-13] VITALS (8 sets, daily range): BP systolic 113–146; BP diastolic 75–86; PULSE 59–72; RESP 16–20; TEMP 36.1–36.4; O2SAT 95–98
[2023-08-13] MEDS: MULTIVIT-MIN/IRON FUM/FOLIC AC 1 EACH TABLET GT (07:59)
[2023-08-13] MEDS: SOD PHOS DI, MONO/K PHOS MONO 250 MG TABLET GT (07:59)
[2023-08-13] MEDS: SODIUM CHLORIDE TAB 1,000 MG TABLET.SOL 1000 MG GT ×2 (07:59→20:00)
[2023-08-13] MEDS: ESOMEPRAZOLE 40 MG GT (07:59)
[2023-08-13] MEDS: SENNOSIDES 8.6 MG TABLET 17.2 MG GT (20:00)
[2023-08-13] MEDS: LOSARTAN 100 MG TABLET GT (20:00)
--- NOTE | 2023-08-13 20:00 | PD.SAPROG ---
Progress Note - SubAcute SUBJECTIVE Fever:: none GI:: none Shortness of Breath:: none GI:: no complaints Pain:: none OBJECTIVE Most recent vital signs: Last Vital Signs Temp 97.5 F 08/13/23 17:47 Pulse 68 08/13/23 17:47 Resp 18 08/13/23 17:47 BP 138/84 H 08/13/23 17:47 Pulse Ox 96 08/13/23 17:47 O2 Del Method Blow-by 08/13/23 06:00 O2 Flow Rate 6 08/13/23 08:00 FiO2 28 08/13/23 08:00 Neurological:: alert Speech:: nods head, mouths words (sometimes) and appropriate Answers questions:: sometimes Respiratory:: shallow breathing Cardiovascular: RRR Abdomen: soft and nontender Extremities:: deformities Decubitus:: none Tracheostomy:: to blow by Feeding per:: G tube Complaints:: none ASSESSMENT & PLAN Assessment: pt comfortable, dependant for care; treatment reviewed and continued Plan: Current treatment to continue
[2023-08-14 02:42] VITALS: PULSE 56; RESP 16; O2SAT 94
[2023-08-14 06:00] VITALS: BP 157/90; PULSE 63; RESP 18; TEMP 36.2; O2SAT 95
[2023-08-14 07:50] VITALS: PULSE 59; RESP 16; O2SAT 97
[2023-08-14] MEDS: ESOMEPRAZOLE 40 MG GT (09:34)
[2023-08-14] MEDS: MULTIVIT-MIN/IRON FUM/FOLIC AC 1 EACH TABLET GT (09:35)
[2023-08-14] MEDS: SODIUM CHLORIDE TAB 1,000 MG TABLET.SOL 1000 MG GT ×2 (09:35→20:31)
[2023-08-14] MEDS: SOD PHOS DI, MONO/K PHOS MONO 250 MG TABLET GT (09:35)
[2023-08-14 11:44] VITALS: BP 147/96; PULSE 66; RESP 18; TEMP 36.4
[2023-08-14 17:38] VITALS: BP 127/85; PULSE 59; RESP 17; TEMP 36.4; O2SAT 98
[2023-08-14 20:30] VITALS: BP 171/92; PULSE 69
[2023-08-14] MEDS: LOSARTAN 100 MG TABLET GT (20:30)
[2023-08-14] MEDS: SENNOSIDES 8.6 MG TABLET 17.2 MG GT (20:30)
[2023-08-15] VITALS: BP 127/82; BP 147/96; BP 156/89; PULSE 67; RESP 20; TEMP 36.3; O2SAT 98
[2023-08-15 06:00] VITALS: BP 122/78; BP 147/96; BP 156/89; PULSE 66; RESP 18; TEMP 36.2; O2SAT 97
[2023-08-15 06:10] VITALS: PULSE 62; RESP 18; O2SAT 97
[2023-08-15] MEDS: ESOMEPRAZOLE 40 MG GT (09:11)
[2023-08-15] MEDS: MULTIVIT-MIN/IRON FUM/FOLIC AC 1 EACH TABLET GT (09:12)
[2023-08-15] MEDS: SOD PHOS DI, MONO/K PHOS MONO 250 MG TABLET GT (09:12)
[2023-08-15] MEDS: SODIUM CHLORIDE TAB 1,000 MG TABLET.SOL 1000 MG GT ×2 (09:12→21:27)
[2023-08-15 12:00] VITALS: BP 155/81; RESP 17; TEMP 36.1
--- NOTE | 2023-08-15 14:52 | CHAP ---
11:15 AM visited by Spiritual Care Volunteer from [facility]. She provided gael to patient.
--- NOTE | 2023-08-15 15:10 | PC.NURSE ---
Resident received bed bath where trach care was provided and Lubriderm waws applied. Linens were all changed and resident was repositioned. Resident tolerated well with no sob or s/s of pain or discomfort noted. Call light in reach.
[2023-08-15 18:00] VITALS: PULSE 73; RESP 18; O2SAT 95
[2023-08-15 21:26] VITALS: BP 150/89; PULSE 75
[2023-08-15] MEDS: LOSARTAN 100 MG TABLET GT (21:26)
[2023-08-16] VITALS (9 sets, daily range): BP systolic 121–160; BP diastolic 78–91; PULSE 62–81; RESP 16–18; TEMP 36.1–36.4; O2SAT 96–98
[2023-08-16] MEDS: ACETAMINOPHEN 325 MG TABLET 650 MG GT ×2 (07:45→16:08)
[2023-08-16] MEDS: ESOMEPRAZOLE 40 MG GT (08:29)
[2023-08-16] MEDS: SOD PHOS DI, MONO/K PHOS MONO 250 MG TABLET GT (08:29)
[2023-08-16] MEDS: MULTIVIT-MIN/IRON FUM/FOLIC AC 1 EACH TABLET GT (08:29)
[2023-08-16] MEDS: SODIUM CHLORIDE TAB 1,000 MG TABLET.SOL 1000 MG GT ×2 (08:30→21:04)
--- NOTE | 2023-08-16 13:41 | PC.SS ---
Room visit: Resident is laying in bed with head of the bed elevated with call light properly placed with no signs of distress. Resident will remain in current care as she has no changes in care or condition. Resident remains on blow by with GT in place with no signs of distress. She is total care unable to make needs known. Staff will continue to provide all subacute care needs. Resident is not ready to DC to lower level of care as she has a heavy care regimen family unable to provide care at home. This SSD will continue to make daily contact with resident and monitor for changes in mood or behavior, SSD will offer emotional support as he may needs.
--- NOTE | 2023-08-16 14:24 | CHAP ---
11:30 AM Visited by spiritual care volunteer Provided prayer for Patient.
[2023-08-16] MEDS: SENNOSIDES 8.6 MG TABLET 17.2 MG GT (21:04)
[2023-08-16] MEDS: LOSARTAN 100 MG TABLET GT (21:04)
[2023-08-17] VITALS (7 sets, daily range): BP systolic 130–173; BP diastolic 79–91; PULSE 56–77; RESP 16–20; TEMP 36.1–36.2; O2SAT 93–97
[2023-08-17] MEDS: SOD PHOS DI, MONO/K PHOS MONO 250 MG TABLET GT (07:51)
[2023-08-17] MEDS: ESOMEPRAZOLE 40 MG GT (07:51)
[2023-08-17] MEDS: MULTIVIT-MIN/IRON FUM/FOLIC AC 1 EACH TABLET GT (07:52)
[2023-08-17] MEDS: SODIUM CHLORIDE TAB 1,000 MG TABLET.SOL 1000 MG GT ×2 (07:52→20:51)
--- NOTE | 2023-08-17 18:40 | PD.SAPROG ---
Progress Note - SubAcute SUBJECTIVE Fever:: none GI:: none Shortness of Breath:: none GI:: no complaints Pain:: none OBJECTIVE Most recent vital signs: Last Vital Signs Temp 97.0 F 08/17/23 17:42 Pulse 63 08/17/23 17:42 Resp 18 08/17/23 17:42 BP 136/79 H 08/17/23 17:42 Pulse Ox 96 08/17/23 17:42 O2 Del Method Blow-by 08/17/23 17:42 O2 Flow Rate 6 08/17/23 09:00 FiO2 28 08/17/23 09:00 Neurological:: alert Speech:: nods head, mouths words (sometimes) and appropriate Answers questions:: sometimes Respiratory:: shallow breathing Cardiovascular: RRR Abdomen: soft and nontender Extremities:: deformities Decubitus:: none Tracheostomy:: to blow by Feeding per:: G tube Complaints:: none ASSESSMENT & PLAN Assessment: pt comfortable, dependant for care; treatment reviewed and continued Plan: Current treatment to continue
--- NOTE | 2023-08-17 18:45 | PC.RT ---
RT student made pt assessment while I was in the room, student able to suction pt no prn needed, pt on same settings 6L, 28%, no changes made, pt refused trach care at this time, no distress noted.
[2023-08-17] MEDS: LOSARTAN 100 MG TABLET GT (20:50)
[2023-08-17] MEDS: SENNOSIDES 8.6 MG TABLET 17.2 MG GT (20:50)
[2023-08-18] VITALS (7 sets, daily range): BP systolic 127–166; BP diastolic 74–85; PULSE 61–74; RESP 18–20; TEMP 36.1; O2SAT 18–98
[2023-08-18] MEDS: MAGNESIUM HYDROXIDE 30 ML ORAL SUSP ML GT (05:10)
[2023-08-18] MEDS: MULTIVIT-MIN/IRON FUM/FOLIC AC 1 EACH TABLET GT (09:43)
[2023-08-18] MEDS: SODIUM CHLORIDE TAB 1,000 MG TABLET.SOL 1000 MG GT ×2 (09:43→20:14)
[2023-08-18] MEDS: SOD PHOS DI, MONO/K PHOS MONO 250 MG TABLET GT (09:43)
[2023-08-18] MEDS: ESOMEPRAZOLE 40 MG GT (09:43)
[2023-08-18] MEDS: SENNOSIDES 8.6 MG TABLET 17.2 MG GT (20:14)
[2023-08-18] MEDS: LOSARTAN 100 MG TABLET GT (20:14)
[2023-08-19] VITALS (7 sets, daily range): BP systolic 111–159; BP diastolic 73–84; PULSE 53–74; RESP 18–19; TEMP 36.1–36.3; O2SAT 95–98
[2023-08-19] MEDS: ESOMEPRAZOLE 40 MG GT (09:45)
[2023-08-19] MEDS: SOD PHOS DI, MONO/K PHOS MONO 250 MG TABLET GT (09:45)
[2023-08-19] MEDS: SODIUM CHLORIDE TAB 1,000 MG TABLET.SOL 1000 MG GT ×2 (09:46→20:42)
[2023-08-19] MEDS: MULTIVIT-MIN/IRON FUM/FOLIC AC 1 EACH TABLET GT (09:46)
[2023-08-19] MEDS: SENNOSIDES 8.6 MG TABLET 17.2 MG GT (20:41)
[2023-08-19] MEDS: LOSARTAN 100 MG TABLET GT (20:41)
[2023-08-20] VITALS (7 sets, daily range): BP systolic 95–176; BP diastolic 72–96; PULSE 60–86; RESP 17–20; TEMP 36–36.3; O2SAT 95–99
[2023-08-20] MEDS: MULTIVIT-MIN/IRON FUM/FOLIC AC 1 EACH TABLET GT (08:43)
[2023-08-20] MEDS: SOD PHOS DI, MONO/K PHOS MONO 250 MG TABLET GT (08:43)
[2023-08-20] MEDS: ESOMEPRAZOLE 40 MG GT (08:43)
[2023-08-20] MEDS: SODIUM CHLORIDE TAB 1,000 MG TABLET.SOL 1000 MG GT ×2 (08:43→20:21)
[2023-08-20] MEDS: SENNOSIDES 8.6 MG TABLET 17.2 MG GT (20:20)
[2023-08-21] VITALS: BP 100/87; PULSE 71; RESP 18; TEMP 36.1
[2023-08-21 05:53] VITALS: BP 146/89; PULSE 74; RESP 19; TEMP 36.3; O2SAT 97
[2023-08-21 06:20] VITALS: PULSE 62; RESP 18; RESP 20; O2SAT 97
--- NOTE | 2023-08-21 09:24 | CHAP ---
Patient was visited on 08/19/2023 between 0932 and 1115 by a [facility] Spiritual Care Volunteer and received prayer.
[2023-08-21] MEDS: MULTIVIT-MIN/IRON FUM/FOLIC AC 1 EACH TABLET GT (09:39)
[2023-08-21] MEDS: SODIUM CHLORIDE TAB 1,000 MG TABLET.SOL 1000 MG GT ×2 (09:39→20:19)
[2023-08-21] MEDS: SOD PHOS DI, MONO/K PHOS MONO 250 MG TABLET GT (09:39)
[2023-08-21] MEDS: ESOMEPRAZOLE 40 MG GT (09:39)
[2023-08-21] MEDS: MAGNESIUM HYDROXIDE 30 ML ORAL SUSP ML GT (10:44)
--- NOTE | 2023-08-21 11:00 | CHAP ---
Patient was visited by a [facility] Spiritual Care Volunteer on 08/17/2023 between 1050 and 1203 and received encouragement and prayer.
[2023-08-21 12:00] VITALS: BP 160/94; PULSE 74; RESP 16; TEMP 36.1; O2SAT 96
[2023-08-21 17:31] VITALS: BP 144/82; PULSE 60; RESP 19; TEMP 36.3
--- NOTE | 2023-08-21 20:07 | PD.SAPROG ---
Progress Note - SubAcute SUBJECTIVE Fever:: none GI:: none Shortness of Breath:: none GI:: no complaints Pain:: none OBJECTIVE Most recent vital signs: Last Vital Signs Temp 97.4 F 08/21/23 17:31 Pulse 60 08/21/23 17:31 Resp 19 08/21/23 17:31 BP 144/82 H 08/21/23 17:31 Pulse Ox 96 08/21/23 12:00 O2 Del Method Blow-by 08/20/23 18:00 O2 Flow Rate 6 08/21/23 06:20 FiO2 28 08/21/23 06:20 Neurological:: alert Speech:: nods head, mouths words (sometimes) and appropriate Answers questions:: sometimes Respiratory:: shallow breathing Cardiovascular: RRR Abdomen: soft and nontender Extremities:: deformities Decubitus:: none Tracheostomy:: to blow by Feeding per:: G tube Complaints:: none ASSESSMENT & PLAN Assessment: pt comfortable, dependant for care; treatment reviewed and continued Plan: Current treatment to continue
[2023-08-21 20:18] VITALS: BP 122/79; PULSE 66
[2023-08-21] MEDS: LOSARTAN 100 MG TABLET GT (20:18)
[2023-08-21] MEDS: SENNOSIDES 8.6 MG TABLET 17.2 MG GT (20:18)
[2023-08-22] VITALS (8 sets, daily range): BP systolic 96–166; BP diastolic 61–96; PULSE 52–80; RESP 17–18; TEMP 36.1–36.3; O2SAT 96–100
[2023-08-22] MEDS: ESOMEPRAZOLE 40 MG GT (09:31)
[2023-08-22] MEDS: SOD PHOS DI, MONO/K PHOS MONO 250 MG TABLET GT (09:31)
[2023-08-22] MEDS: SODIUM CHLORIDE TAB 1,000 MG TABLET.SOL 1000 MG GT ×2 (09:32→20:19)
[2023-08-22] MEDS: MULTIVIT-MIN/IRON FUM/FOLIC AC 1 EACH TABLET GT (09:32)
[2023-08-22] MEDS: LOSARTAN 100 MG TABLET GT (20:18)
[2023-08-22] MEDS: SENNOSIDES 8.6 MG TABLET 17.2 MG GT (20:18)
[2023-08-23] VITALS (8 sets, daily range): BP systolic 110–160; BP diastolic 73–93; PULSE 57–95; RESP 16–18; TEMP 36.1–36.3; O2SAT 94–97
[2023-08-23] MEDS: MULTIVIT-MIN/IRON FUM/FOLIC AC 1 EACH TABLET GT (08:04)
[2023-08-23] MEDS: SOD PHOS DI, MONO/K PHOS MONO 250 MG TABLET GT (08:04)
[2023-08-23] MEDS: SODIUM CHLORIDE TAB 1,000 MG TABLET.SOL 1000 MG GT ×2 (08:04→20:36)
[2023-08-23] MEDS: ESOMEPRAZOLE 40 MG GT (08:04)
[2023-08-23] MEDS: SENNOSIDES 8.6 MG TABLET 17.2 MG GT (20:35)
[2023-08-23] MEDS: LOSARTAN 100 MG TABLET GT (20:35)
[2023-08-24 06:12] VITALS: PULSE 90; RESP 18; O2SAT 95
[2023-08-24] MEDS: ESOMEPRAZOLE 40 MG GT (08:05)
[2023-08-24] MEDS: SOD PHOS DI, MONO/K PHOS MONO 250 MG TABLET GT (08:05)
[2023-08-24] MEDS: SODIUM CHLORIDE TAB 1,000 MG TABLET.SOL 1000 MG GT ×2 (08:05→20:11)
[2023-08-24] MEDS: MULTIVIT-MIN/IRON FUM/FOLIC AC 1 EACH TABLET GT (08:05)
--- NOTE | 2023-08-24 11:35 | CHAP ---
Patient was visited by the Spiritual Care Volunteer who prayed for them. (Volunteer was in the hospital from 09:58-11:35).
[2023-08-24 12:00] VITALS: BP 141/65; PULSE 64; RESP 18; TEMP 36.1
[2023-08-24 17:46] VITALS: BP 157/87; PULSE 66; RESP 18; TEMP 36.4
[2023-08-24 19:15] VITALS: PULSE 65; RESP 16; O2SAT 95
[2023-08-24 20:10] VITALS: BP 142/74; PULSE 65
[2023-08-24] MEDS: SENNOSIDES 8.6 MG TABLET 17.2 MG GT (20:10)
[2023-08-24] MEDS: LOSARTAN 100 MG TABLET GT (20:10)
[2023-08-24 23:32] VITALS: BP 109/73; PULSE 59; RESP 16; TEMP 36.1; O2SAT 95
[2023-08-25 06:18] VITALS: PULSE 70; RESP 18; O2SAT 97
[2023-08-25] MEDS: SOD PHOS DI, MONO/K PHOS MONO 250 MG TABLET GT (08:02)
[2023-08-25] MEDS: MULTIVIT-MIN/IRON FUM/FOLIC AC 1 EACH TABLET GT (08:02)
[2023-08-25] MEDS: ESOMEPRAZOLE 40 MG GT (08:02)
[2023-08-25] MEDS: SODIUM CHLORIDE TAB 1,000 MG TABLET.SOL 1000 MG GT ×2 (08:02→20:08)
[2023-08-25 11:46] VITALS: BP 135/84; PULSE 80; RESP 18; TEMP 36.1
--- NOTE | 2023-08-25 17:03 | PD.SAPROG ---
Progress Note - SubAcute SUBJECTIVE Fever:: none GI:: none Shortness of Breath:: none GI:: no complaints Pain:: none OBJECTIVE Most recent vital signs: Last Vital Signs Temp 97 F 08/25/23 11:46 Pulse 80 08/25/23 11:46 Resp 18 08/25/23 11:46 BP 135/84 H 08/25/23 11:46 Pulse Ox 97 08/25/23 06:18 O2 Del Method Blow-by 08/24/23 23:32 O2 Flow Rate 6 08/25/23 06:18 FiO2 28 08/25/23 06:18 Neurological:: alert Speech:: nods head, mouths words (sometimes) and appropriate Answers questions:: sometimes Respiratory:: shallow breathing Cardiovascular: RRR Abdomen: soft and nontender Extremities:: deformities Decubitus:: none Tracheostomy:: to blow by Feeding per:: G tube Complaints:: none ASSESSMENT & PLAN Assessment: pt comfortable, dependant for care; treatment reviewed and continued Plan: Current treatment to continue
[2023-08-25 17:41] VITALS: BP 136/83; PULSE 69; RESP 18; TEMP 36.2; O2SAT 99
[2023-08-25 20:08] VITALS: BP 139/87; PULSE 73
[2023-08-25] MEDS: LOSARTAN 100 MG TABLET GT (20:08)
[2023-08-25] MEDS: SENNOSIDES 8.6 MG TABLET 17.2 MG GT (20:08)
[2023-08-25 21:10] VITALS: PULSE 69; RESP 16; O2SAT 98
[2023-08-26] VITALS: BP 108/74; PULSE 68; RESP 18; TEMP 36.2
[2023-08-26 05:56] VITALS: BP 125/79; PULSE 71; RESP 20; TEMP 36.2
[2023-08-26 07:15] VITALS: PULSE 63; RESP 17; O2SAT 96
[2023-08-26] MEDS: MULTIVIT-MIN/IRON FUM/FOLIC AC 1 EACH TABLET GT (09:00)
[2023-08-26] MEDS: SOD PHOS DI, MONO/K PHOS MONO 250 MG TABLET GT (09:00)
[2023-08-26] MEDS: SODIUM CHLORIDE TAB 1,000 MG TABLET.SOL 1000 MG GT ×2 (09:00→20:36)
[2023-08-26] MEDS: ESOMEPRAZOLE 40 MG GT (09:00)
[2023-08-26 11:44] VITALS: BP 132/75; PULSE 63; RESP 17; TEMP 36.1
[2023-08-26 17:24] VITALS: BP 107/59; PULSE 74; RESP 18; TEMP 36.2; O2SAT 97
[2023-08-26 20:36] VITALS: BP 102/65; PULSE 83
[2023-08-26] MEDS: SENNOSIDES 8.6 MG TABLET 17.2 MG GT (20:36)
[2023-08-27] VITALS (7 sets, daily range): BP systolic 103–157; BP diastolic 73–83; PULSE 59–82; RESP 16–18; TEMP 36.2–36.3; O2SAT 96–99
[2023-08-27] MEDS: SOD PHOS DI, MONO/K PHOS MONO 250 MG TABLET GT (08:09)
[2023-08-27] MEDS: MULTIVIT-MIN/IRON FUM/FOLIC AC 1 EACH TABLET GT (08:09)
[2023-08-27] MEDS: ESOMEPRAZOLE 40 MG GT (08:09)
[2023-08-27] MEDS: SODIUM CHLORIDE TAB 1,000 MG TABLET.SOL 1000 MG GT ×2 (08:09→20:07)
[2023-08-27] MEDS: SENNOSIDES 8.6 MG TABLET 17.2 MG GT (20:07)
[2023-08-27] MEDS: LOSARTAN 100 MG TABLET GT (20:07)
[2023-08-27] MEDS: MAGNESIUM HYDROXIDE 30 ML ORAL SUSP ML GT (20:09)
[2023-08-28] VITALS (9 sets, daily range): BP systolic 111–168; BP diastolic 60–84; PULSE 63–88; RESP 17–20; TEMP 35.9–36.3; O2SAT 93–98
[2023-08-28] MEDS: SOD PHOS DI, MONO/K PHOS MONO 250 MG TABLET GT (08:20)
[2023-08-28] MEDS: MULTIVIT-MIN/IRON FUM/FOLIC AC 1 EACH TABLET GT (08:20)
[2023-08-28] MEDS: ESOMEPRAZOLE 40 MG GT (08:20)
[2023-08-28] MEDS: SODIUM CHLORIDE TAB 1,000 MG TABLET.SOL 1000 MG GT ×2 (08:20→20:28)
[2023-08-28] MEDS: LOSARTAN 100 MG TABLET GT (20:28)
[2023-08-28] MEDS: SENNOSIDES 8.6 MG TABLET 17.2 MG GT (20:28)
[2023-08-29 05:14] VITALS: BP 144/86; PULSE 74; RESP 20; TEMP 35.9; O2SAT 95
[2023-08-29 07:20] VITALS: PULSE 69; RESP 19; O2SAT 99
[2023-08-29] MEDS: ESOMEPRAZOLE 40 MG GT (08:25)
[2023-08-29] MEDS: SOD PHOS DI, MONO/K PHOS MONO 250 MG TABLET GT (08:25)
[2023-08-29] MEDS: MULTIVIT-MIN/IRON FUM/FOLIC AC 1 EACH TABLET GT (08:25)
[2023-08-29] MEDS: SODIUM CHLORIDE TAB 1,000 MG TABLET.SOL 1000 MG GT ×2 (08:25→20:03)
[2023-08-29 12:00] VITALS: BP 126/82; PULSE 65; RESP 18; TEMP 36.1
--- NOTE | 2023-08-29 15:41 | PC.CWCCOMPLE ---
Wallpaperer Pharmacist monthly MRR
[2023-08-29 17:56] VITALS: BP 174/83; PULSE 57; RESP 18; TEMP 36.1; O2SAT 96
[2023-08-29 20:02] VITALS: BP 130/81; PULSE 58
[2023-08-29] MEDS: LOSARTAN 100 MG TABLET GT (20:02)
[2023-08-29] MEDS: SENNOSIDES 8.6 MG TABLET 17.2 MG GT (20:03)
[2023-08-29 20:05] VITALS: PULSE 77; RESP 18; O2SAT 96
--- NOTE | 2023-08-29 23:21 | PD.SAPROG ---
Progress Note - SubAcute SUBJECTIVE Fever:: none GI:: none Shortness of Breath:: none GI:: no complaints Pain:: none OBJECTIVE Most recent vital signs: Last Vital Signs Temp 97.0 F 08/29/23 17:56 Pulse 58 L 08/29/23 20:02 Resp 18 08/29/23 17:56 BP 130/81 08/29/23 20:02 Pulse Ox 96 08/29/23 17:56 O2 Del Method Blow-by 08/29/23 05:14 O2 Flow Rate 6 08/29/23 07:20 FiO2 08/29/23 07:20 Neurological:: alert Speech:: nods head, mouths words (sometimes) and appropriate Answers questions:: sometimes Respiratory:: shallow breathing Cardiovascular: RRR Abdomen: soft and nontender Extremities:: deformities Decubitus:: none Tracheostomy:: to blow by Feeding per:: G tube Complaints:: none ASSESSMENT & PLAN Assessment: pt comfortable, dependant for care; treatment reviewed and continued Plan: Current treatment to continue
[2023-08-30] VITALS (8 sets, daily range): BP systolic 95–159; BP diastolic 68–86; PULSE 56–78; RESP 17–20; TEMP 36–37.1; O2SAT 93–99
[2023-08-30] MEDS: SOD PHOS DI, MONO/K PHOS MONO 250 MG TABLET GT (08:03)
[2023-08-30] MEDS: ESOMEPRAZOLE 40 MG GT (08:03)
[2023-08-30] MEDS: MULTIVIT-MIN/IRON FUM/FOLIC AC 1 EACH TABLET GT (08:04)
[2023-08-30] MEDS: SODIUM CHLORIDE TAB 1,000 MG TABLET.SOL 1000 MG GT ×2 (08:04→20:18)
--- NOTE | 2023-08-30 15:16 | CHAP ---
11:00 AM Visited by spiritual care volunteer Provided prayer for Patient.
[2023-08-30] MEDS: SENNOSIDES 8.6 MG TABLET 17.2 MG GT (20:17)
[2023-08-30] MEDS: LOSARTAN 100 MG TABLET GT (20:17)
[2023-08-30] MEDS: MAGNESIUM HYDROXIDE 30 ML ORAL SUSP ML GT (20:18)
[2023-08-31] VITALS (7 sets, daily range): BP systolic 134–163; BP diastolic 82–97; PULSE 65–76; RESP 18–19; TEMP 36.1–36.2; O2SAT 96–98
[2023-08-31 07:15] LABS: Basophils # (Auto) 0.1 Thou/mm3 (0.0-0.2); Basophils % (Auto) 1 % (0-2.5); Eosinophils # (Auto) 0.1 Thou/mm3 (0.0-0.5); Eosinophils % (Auto) 1 % (0-10); Hematocrit 41.4 % (36.0-46.0); Hemoglobin 13.8 g/dL (12.0-16.0); Immature Granulocytes Auto 0.01 Thou/mm3 (0.00-0.00); Lymphocytes # (Auto) 2.3 Thou/mm3 (1.0-4.8); Lymphocytes % (Auto) 22 % (10-50); Mean Corpuscular HGB Conc 33.3 g/dl (31.0-37.0); Mean Corpuscular Hemoglobin 30.1 pg (25.0-35.0); Mean Corpuscular Volume 90 fL (80-100); Monocytes # (Auto) 0.8 Thou/mm3 (0.0-0.8); Monocytes % (Auto) 7 % (0-12); Neutrophils # (Auto) 7.3 Thou/mm3 (1.8-7.7); Neutrophils % (Auto) 69 % (37-80); Nucleated Red Blood Cell # 0.00 Thou/mm3 (0.00-0.00); Nucleated Red Blood Cell % 0 /100 WBC (0); Platelet Count 256 Thou/mm3 (140-440); RDW Standard Deviation 41.8 fL (36.4-46.3); Red Blood Count 4.59 Miln/mm3 (4.00-5.20); White Blood Count 10.5 Thou/mm3 (3.6-11.0)
[2023-08-31 07:31] LABS: Albumin, Serum 4.6 gm/dL (3.4-4.8); Anion Gap 6 (7-16); BUN/Creatinine Ratio 28 Ratio (12-20); Blood Urea Nitrogen 14 mg/dL (9-23); Calcium 10.2 mg/dL (8.3-10.6); Calcium (Corrected) 10.2 mg/dL (8.5-10.1); Carbon Dioxide 28.5 mMol/L (20.0-31.0); Chloride 100 mMol/L (98-107); Creatinine (Component) 0.5 mg/dL (0.6-1.3); Estimated Creatinine Clearance 82.4 mL/min (>60); Glucose 91 mg/dL (74-106); Osmolality,Calculated 268 (275-295); Phosphorous 4.2 mg/dL (2.4-5.1); Potassium 4.2 mMol/L (3.4-5.1); Sodium 134 mMol/L (136-145); eGFR > 60 See Note
[2023-08-31] MEDS: SOD PHOS DI, MONO/K PHOS MONO 250 MG TABLET GT (09:52)
[2023-08-31] MEDS: MULTIVIT-MIN/IRON FUM/FOLIC AC 1 EACH TABLET GT (09:52)
[2023-08-31] MEDS: ESOMEPRAZOLE 40 MG GT (09:52)
[2023-08-31] MEDS: SODIUM CHLORIDE TAB 1,000 MG TABLET.SOL 1000 MG GT ×2 (09:53→20:26)
--- NOTE | 2023-08-31 12:54 | PC.NURSE ---
Dr Gonsalez reviewed Renal panel result, Na+ level 134, currently on NaCl 1 gm BID and NS 500 ml flush max q shift, no new orders made
--- NOTE | 2023-08-31 13:53 | PC.NURSE ---
See by Dr Gonsalez, no new orders made
[2023-08-31] MEDS: SENNOSIDES 8.6 MG TABLET 17.2 MG GT (20:26)
[2023-08-31] MEDS: LOSARTAN 100 MG TABLET GT (20:26)
[2023-09-01] VITALS (7 sets, daily range): BP systolic 118–154; BP diastolic 71–86; PULSE 57–74; RESP 17–19; TEMP 35.9–36.4; O2SAT 97–98
[2023-09-01] MEDS: ESOMEPRAZOLE 40 MG GT (08:04)
[2023-09-01] MEDS: SODIUM CHLORIDE TAB 1,000 MG TABLET.SOL 1000 MG GT ×2 (08:04→22:34)
[2023-09-01] MEDS: MULTIVIT-MIN/IRON FUM/FOLIC AC 1 EACH TABLET GT (08:04)
[2023-09-01] MEDS: SOD PHOS DI, MONO/K PHOS MONO 250 MG TABLET GT (08:04)
[2023-09-01] MEDS: LOSARTAN 100 MG TABLET GT (22:33)
[2023-09-01] MEDS: SENNOSIDES 8.6 MG TABLET 17.2 MG GT (22:33)
[2023-09-02] VITALS: BP 127/82; PULSE 72; RESP 18; TEMP 36.2
[2023-09-02 05:45] VITALS: PULSE 64; RESP 18; O2SAT 99
[2023-09-02 05:47] VITALS: BP 138/78; PULSE 73; RESP 18; TEMP 36.1; O2SAT 97
[2023-09-02] MEDS: ESOMEPRAZOLE 40 MG GT (09:23)
[2023-09-02] MEDS: SOD PHOS DI, MONO/K PHOS MONO 250 MG TABLET GT (09:23)
[2023-09-02] MEDS: SODIUM CHLORIDE TAB 1,000 MG TABLET.SOL 1000 MG GT ×2 (09:23→20:58)
[2023-09-02] MEDS: MULTIVIT-MIN/IRON FUM/FOLIC AC 1 EACH TABLET GT (09:23)
[2023-09-02 11:40] VITALS: BP 154/86; PULSE 71; RESP 17; TEMP 36.1; O2SAT 97
[2023-09-02 17:05] VITALS: BP 163/91; PULSE 66; RESP 16; TEMP 36.2; O2SAT 95
[2023-09-02 20:57] VITALS: BP 139/78; PULSE 78
[2023-09-02] MEDS: LOSARTAN 100 MG TABLET GT (20:57)
[2023-09-02] MEDS: SENNOSIDES 8.6 MG TABLET 17.2 MG GT (20:58)
[2023-09-03] VITALS (7 sets, daily range): BP systolic 103–155; BP diastolic 75–82; PULSE 55–62; RESP 16–18; TEMP 35.9–36.1; O2SAT 97–99
[2023-09-03] MEDS: SOD PHOS DI, MONO/K PHOS MONO 250 MG TABLET GT (08:06)
[2023-09-03] MEDS: MULTIVIT-MIN/IRON FUM/FOLIC AC 1 EACH TABLET GT (08:06)
[2023-09-03] MEDS: ESOMEPRAZOLE 40 MG GT (08:06)
[2023-09-03] MEDS: SODIUM CHLORIDE TAB 1,000 MG TABLET.SOL 1000 MG GT ×2 (08:07→20:17)
[2023-09-03] MEDS: SENNOSIDES 8.6 MG TABLET 17.2 MG GT (20:17)
[2023-09-03] MEDS: LOSARTAN 100 MG TABLET GT (20:18)
--- NOTE | 2023-09-03 22:05 | PD.SAPROG ---
Progress Note - SubAcute SUBJECTIVE Fever:: none GI:: none Shortness of Breath:: none GI:: no complaints Pain:: none OBJECTIVE Most recent vital signs: Last Vital Signs Temp 96.9 F 09/03/23 17:07 Pulse 62 09/03/23 20:18 Resp 17 09/03/23 17:07 BP 111/78 09/03/23 20:18 Pulse Ox 97 09/03/23 17:07 O2 Del Method Blow-by 08/31/23 05:34 O2 Flow Rate 6 09/03/23 05:40 FiO2 28 09/03/23 05:40 Neurological:: alert Speech:: nods head, mouths words (sometimes) and appropriate Answers questions:: sometimes Respiratory:: shallow breathing Cardiovascular: RRR Abdomen: soft and nontender Extremities:: deformities Decubitus:: none Tracheostomy:: to blow by Feeding per:: G tube Complaints:: none ASSESSMENT & PLAN Assessment: pt comfortable, dependant for care; treatment reviewed and continued Plan: Current treatment to continue
[2023-09-04] VITALS (9 sets, daily range): BP systolic 116–158; BP diastolic 66–94; PULSE 59–74; RESP 16–22; TEMP 36.1–36.6; O2SAT 96–99
[2023-09-04] MEDS: MULTIVIT-MIN/IRON FUM/FOLIC AC 1 EACH TABLET GT (07:52)
[2023-09-04] MEDS: SOD PHOS DI, MONO/K PHOS MONO 250 MG TABLET GT (07:52)
[2023-09-04] MEDS: SODIUM CHLORIDE TAB 1,000 MG TABLET.SOL 1000 MG GT ×2 (07:52→20:04)
[2023-09-04] MEDS: ESOMEPRAZOLE 40 MG GT (07:52)
[2023-09-04] MEDS: LOSARTAN 100 MG TABLET GT (20:04)
[2023-09-04] MEDS: SENNOSIDES 8.6 MG TABLET 17.2 MG GT (20:07)
[2023-09-05] VITALS (7 sets, daily range): BP systolic 142–188; BP diastolic 79–95; PULSE 57–75; RESP 16–22; TEMP 36.1–36.2; O2SAT 96–99
[2023-09-05] MEDS: SODIUM CHLORIDE TAB 1,000 MG TABLET.SOL 1000 MG GT ×2 (07:53→20:17)
[2023-09-05] MEDS: ESOMEPRAZOLE 40 MG GT (07:53)
[2023-09-05] MEDS: SOD PHOS DI, MONO/K PHOS MONO 250 MG TABLET GT (07:53)
[2023-09-05] MEDS: MULTIVIT-MIN/IRON FUM/FOLIC AC 1 EACH TABLET GT (07:53)
[2023-09-05] MEDS: LOSARTAN 100 MG TABLET GT (20:17)
[2023-09-05] MEDS: SENNOSIDES 8.6 MG TABLET 17.2 MG GT (20:17)
[2023-09-06] VITALS (7 sets, daily range): BP systolic 130–160; BP diastolic 71–84; PULSE 58–90; RESP 16–20; TEMP 36.2–36.4; O2SAT 96–99
[2023-09-06] MEDS: MULTIVIT-MIN/IRON FUM/FOLIC AC 1 EACH TABLET GT (08:01)
[2023-09-06] MEDS: SOD PHOS DI, MONO/K PHOS MONO 250 MG TABLET GT (08:01)
[2023-09-06] MEDS: ESOMEPRAZOLE 40 MG GT (08:01)
[2023-09-06] MEDS: SODIUM CHLORIDE TAB 1,000 MG TABLET.SOL 1000 MG GT ×2 (08:01→20:51)
[2023-09-06] MEDS: MAGNESIUM HYDROXIDE 30 ML ORAL SUSP ML GT (08:16)
[2023-09-06] MEDS: LOSARTAN 100 MG TABLET GT (20:51)
[2023-09-06] MEDS: SENNOSIDES 8.6 MG TABLET 17.2 MG GT (20:51)
[2023-09-07] VITALS (7 sets, daily range): BP systolic 101–168; BP diastolic 65–92; PULSE 60–84; RESP 15–18; TEMP 36.1–36.7; O2SAT 95–98
[2023-09-07] MEDS: SODIUM CHLORIDE TAB 1,000 MG TABLET.SOL 1000 MG GT ×2 (09:50→20:10)
[2023-09-07] MEDS: SOD PHOS DI, MONO/K PHOS MONO 250 MG TABLET GT (09:50)
[2023-09-07] MEDS: ESOMEPRAZOLE 40 MG GT (09:50)
[2023-09-07] MEDS: MULTIVIT-MIN/IRON FUM/FOLIC AC 1 EACH TABLET GT (09:50)
--- NOTE | 2023-09-07 11:28 | CHAP ---
Patient was visited by the Spiritual Care Volunteer who prayed for them. (Volunteer was in the hospital from 10:02-11:28).
--- NOTE | 2023-09-07 15:30 | PC.SS ---
Room visit: Resident is laying in bed with head of the bed elevated with call light properly placed with no signs of distress. Resident is well groomed, with call light in place. Resident will remain in current care as there are no changes in care or condition, staff to continue to meet all subacute care needs. Resident remains on blow by with trach in place and GT for nutrition and medications. SSD to make daily contact with resident and monitor for any changes in mood or behavior.
[2023-09-07] MEDS: LOSARTAN 100 MG TABLET GT (20:10)
[2023-09-07] MEDS: SENNOSIDES 8.6 MG TABLET 17.2 MG GT (20:10)
--- NOTE | 2023-09-07 22:57 | ESPR_ITS ---
Progress Note - SubAcute SUBJECTIVE Fever:: none GI:: none Shortness of Breath:: none GI:: no complaints Pain:: none OBJECTIVE Most recent vital signs: Last Vital Signs Temp 97.8 F 09/07/23 18:00 Pulse 84 09/07/23 20:10 Resp 18 09/07/23 18:00 BP 147/85 H 09/07/23 20:10 Pulse Ox 95 09/07/23 18:00 O2 Del Method Blow-by 09/07/23 05:35 O2 Flow Rate 6 09/07/23 06:10 FiO2 28 09/07/23 06:10 Neurological:: alert Speech:: nods head, mouths words (sometimes) and appropriate Answers questions:: sometimes Respiratory:: shallow breathing Cardiovascular: RRR Abdomen: soft and nontender Extremities:: deformities Decubitus:: none Tracheostomy:: to blow by Feeding per:: G tube Complaints:: none ASSESSMENT & PLAN Assessment: 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 Plan: All treatment reviewed and continued.
[2023-09-08] VITALS (7 sets, daily range): BP systolic 105–135; BP diastolic 66–86; PULSE 60–82; RESP 16–20; TEMP 36.1–37; O2SAT 95–98
[2023-09-08] MEDS: SODIUM CHLORIDE TAB 1,000 MG TABLET.SOL 1000 MG GT ×2 (08:01→20:15)
[2023-09-08] MEDS: ESOMEPRAZOLE 40 MG GT (08:01)
[2023-09-08] MEDS: MULTIVIT-MIN/IRON FUM/FOLIC AC 1 EACH TABLET GT (08:01)
[2023-09-08] MEDS: SOD PHOS DI, MONO/K PHOS MONO 250 MG TABLET GT (08:01)
[2023-09-08] MEDS: LOSARTAN 100 MG TABLET GT (20:15)
[2023-09-08] MEDS: SENNOSIDES 8.6 MG TABLET 17.2 MG GT (20:15)
[2023-09-09] VITALS (7 sets, daily range): BP systolic 110–163; BP diastolic 73–89; PULSE 59–96; RESP 16–20; TEMP 36–36.2; O2SAT 96–98
[2023-09-09] MEDS: SOD PHOS DI, MONO/K PHOS MONO 250 MG TABLET GT (08:00)
[2023-09-09] MEDS: ESOMEPRAZOLE 40 MG GT (08:00)
[2023-09-09] MEDS: MULTIVIT-MIN/IRON FUM/FOLIC AC 1 EACH TABLET GT (08:00)
[2023-09-09] MEDS: SODIUM CHLORIDE TAB 1,000 MG TABLET.SOL 1000 MG GT ×2 (08:00→20:07)
[2023-09-09] MEDS: LOSARTAN 100 MG TABLET GT (20:07)
[2023-09-09] MEDS: SENNOSIDES 8.6 MG TABLET 17.2 MG GT (20:07)
[2023-09-10] VITALS (8 sets, daily range): BP systolic 110–152; BP diastolic 71–86; PULSE 58–78; RESP 16–18; TEMP 35.7–36.2; O2SAT 95–99
[2023-09-10] MEDS: ESOMEPRAZOLE 40 MG GT (09:23)
[2023-09-10] MEDS: MULTIVIT-MIN/IRON FUM/FOLIC AC 1 EACH TABLET GT (09:24)
[2023-09-10] MEDS: SODIUM CHLORIDE TAB 1,000 MG TABLET.SOL 1000 MG GT ×2 (09:24→20:05)
[2023-09-10] MEDS: SOD PHOS DI, MONO/K PHOS MONO 250 MG TABLET GT (09:24)
[2023-09-10] MEDS: LOSARTAN 100 MG TABLET GT (20:02)
[2023-09-10] MEDS: SENNOSIDES 8.6 MG TABLET 17.2 MG GT (20:04)
[2023-09-11] VITALS: BP 125/71; PULSE 69; RESP 18; TEMP 36.2
[2023-09-11 06:00] VITALS: BP 135/84; PULSE 58; RESP 18; TEMP 36.3; O2SAT 96
[2023-09-11] MEDS: ESOMEPRAZOLE 40 MG GT (08:01)
[2023-09-11] MEDS: MULTIVIT-MIN/IRON FUM/FOLIC AC 1 EACH TABLET GT (08:01)
[2023-09-11] MEDS: SOD PHOS DI, MONO/K PHOS MONO 250 MG TABLET GT (08:01)
[2023-09-11] MEDS: SODIUM CHLORIDE TAB 1,000 MG TABLET.SOL 1000 MG GT ×2 (08:02→20:01)
[2023-09-11 11:42] VITALS: BP 114/65; PULSE 53; RESP 17; TEMP 36.3
[2023-09-11 17:37] VITALS: BP 141/86; PULSE 57; RESP 17; TEMP 36.2; O2SAT 97
[2023-09-11 18:00] VITALS: PULSE 56; RESP 18; O2SAT 96
[2023-09-11 20:00] VITALS: BP 134/83; PULSE 61
[2023-09-11] MEDS: LOSARTAN 100 MG TABLET GT (20:00)
[2023-09-11] MEDS: SENNOSIDES 8.6 MG TABLET 17.2 MG GT (20:00)
[2023-09-11] MEDS: MAGNESIUM HYDROXIDE 30 ML ORAL SUSP ML GT (20:01)
--- NOTE | 2023-09-11 22:40 | ESPR_ITS ---
Progress Note - SubAcute SUBJECTIVE Fever:: none GI:: none Shortness of Breath:: none GI:: no complaints Pain:: none OBJECTIVE Most recent vital signs: Last Vital Signs Temp 97.1 F 09/11/23 17:37 Pulse 61 09/11/23 20:00 Resp 18 09/11/23 18:00 BP 134/83 H 09/11/23 20:00 Pulse Ox 96 09/11/23 18:00 O2 Del Method Blow-by 09/09/23 18:00 O2 Flow Rate 6 09/11/23 18:00 FiO2 28 09/11/23 18:00 Neurological:: alert Speech:: nods head, mouths words (sometimes) and appropriate Answers questions:: sometimes Respiratory:: shallow breathing Cardiovascular: RRR Abdomen: soft and nontender Extremities:: deformities Decubitus:: none Tracheostomy:: to blow by Feeding per:: G tube Complaints:: none ASSESSMENT & PLAN Assessment: 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 Plan: All treatment reviewed and continued.
[2023-09-12] VITALS: BP 127/77; PULSE 65; RESP 18; TEMP 36.1
[2023-09-12 06:00] VITALS: BP 106/75; PULSE 51; PULSE 64; RESP 18; TEMP 35.9; O2SAT 95
[2023-09-12] MEDS: SODIUM CHLORIDE TAB 1,000 MG TABLET.SOL 1000 MG GT ×2 (08:33→20:41)
[2023-09-12] MEDS: MULTIVIT-MIN/IRON FUM/FOLIC AC 1 EACH TABLET GT (08:33)
[2023-09-12] MEDS: SOD PHOS DI, MONO/K PHOS MONO 250 MG TABLET GT (08:33)
[2023-09-12] MEDS: ESOMEPRAZOLE 40 MG GT (08:33)
[2023-09-12 12:00] VITALS: BP 125/81; PULSE 53; RESP 20; TEMP 36.1
--- NOTE | 2023-09-12 15:42 | PC.SS ---
Room visit resident is laying in bed with head of the bed elevated with call light properly placed with no signs of distress. Resident is well groomed appears comfortable. Resident remains on blow by with trach in place, no changes in care or condition. She will remain in current care, staff will continue to meet all subacute care needs. This SSD to make daily contact with resident and monitor for changes in mood or behavior.
[2023-09-12 18:00] VITALS: BP 171/87; PULSE 86; RESP 19; TEMP 36.2; O2SAT 98
[2023-09-12 20:40] VITALS: BP 131/81; PULSE 92
[2023-09-12] MEDS: LOSARTAN 100 MG TABLET GT (20:40)
[2023-09-12] MEDS: SENNOSIDES 8.6 MG TABLET 17.2 MG GT (20:41)
[2023-09-13] VITALS (7 sets, daily range): BP systolic 130–138; BP diastolic 80–85; PULSE 59–86; RESP 14–20; TEMP 36.1–36.4; O2SAT 96–98
[2023-09-13] MEDS: ESOMEPRAZOLE 40 MG GT (08:02)
[2023-09-13] MEDS: SOD PHOS DI, MONO/K PHOS MONO 250 MG TABLET GT (08:02)
[2023-09-13] MEDS: MULTIVIT-MIN/IRON FUM/FOLIC AC 1 EACH TABLET GT (08:03)
[2023-09-13] MEDS: SODIUM CHLORIDE TAB 1,000 MG TABLET.SOL 1000 MG GT ×2 (08:04→20:29)
--- NOTE | 2023-09-13 10:44 | CHAP ---
Patient was visited by the Spiritual Care Volunteer who prayed for them. (Volunteer was in the hospital from 10:12-10:44).
[2023-09-13] MEDS: LOSARTAN 100 MG TABLET GT (20:27)
[2023-09-13] MEDS: SENNOSIDES 8.6 MG TABLET 17.2 MG GT (20:28)
[2023-09-14] VITALS (7 sets, daily range): BP systolic 113–129; BP diastolic 64–95; PULSE 52–73; RESP 16–18; TEMP 35.8–36.2; O2SAT 95–98
[2023-09-14] MEDS: MULTIVIT-MIN/IRON FUM/FOLIC AC 1 EACH TABLET GT (08:09)
[2023-09-14] MEDS: SODIUM CHLORIDE TAB 1,000 MG TABLET.SOL 1000 MG GT ×2 (08:09→21:34)
[2023-09-14] MEDS: SOD PHOS DI, MONO/K PHOS MONO 250 MG TABLET GT (08:09)
[2023-09-14] MEDS: ESOMEPRAZOLE 40 MG GT (08:09)
--- NOTE | 2023-09-14 13:00 | CHAP ---
Patient was visited by the Spiritual Care Volunteer who prayed for them outside room. (Volunteer was in hospital from 09:20-13:00)
[2023-09-14] MEDS: SENNOSIDES 8.6 MG TABLET 17.2 MG GT (21:33)
[2023-09-14] MEDS: LOSARTAN 100 MG TABLET GT (21:41)
[2023-09-15] VITALS (8 sets, daily range): BP systolic 134–162; BP diastolic 60–88; PULSE 55–80; RESP 18–19; TEMP 36.2–36.8; O2SAT 94–99
[2023-09-15] MEDS: MULTIVIT-MIN/IRON FUM/FOLIC AC 1 EACH TABLET GT (08:02)
[2023-09-15] MEDS: ESOMEPRAZOLE 40 MG GT (08:02)
[2023-09-15] MEDS: MAGNESIUM HYDROXIDE 30 ML ORAL SUSP ML GT (08:02)
[2023-09-15] MEDS: SOD PHOS DI, MONO/K PHOS MONO 250 MG TABLET GT (08:02)
[2023-09-15] MEDS: SODIUM CHLORIDE TAB 1,000 MG TABLET.SOL 1000 MG GT ×2 (08:02→20:02)
[2023-09-15] MEDS: LOSARTAN 100 MG TABLET GT (20:01)
[2023-09-15] MEDS: SENNOSIDES 8.6 MG TABLET 17.2 MG GT (20:02)
--- NOTE | 2023-09-15 22:40 | PD.SAPROG ---
Progress Note - SubAcute SUBJECTIVE Fever:: none GI:: none Shortness of Breath:: none GI:: no complaints Pain:: none OBJECTIVE Most recent vital signs: Last Vital Signs Temp 97.2 F 09/15/23 18:00 Pulse 61 09/15/23 20:01 Resp 18 09/15/23 18:00 BP 152/82 H 09/15/23 20:01 Pulse Ox 97 09/15/23 07:22 O2 Del Method Trach Collar 09/14/23 12:00 O2 Flow Rate 6 09/15/23 07:22 FiO2 28 09/15/23 07:22 Neurological:: alert Speech:: nods head, mouths words (sometimes) and appropriate Answers questions:: sometimes Respiratory:: shallow breathing Cardiovascular: RRR Abdomen: soft and nontender Extremities:: deformities Decubitus:: none Tracheostomy:: to blow by Feeding per:: G tube Complaints:: none ASSESSMENT & PLAN Assessment: Pt fully dependent for custodial care. Plan: All treatment reviewed and continued.
[2023-09-16] VITALS (9 sets, daily range): BP systolic 132–159; BP diastolic 71–85; PULSE 54–80; RESP 16–18; TEMP 36–36.8; O2SAT 94–97
[2023-09-16] MEDS: SOD PHOS DI, MONO/K PHOS MONO 250 MG TABLET GT (09:11)
[2023-09-16] MEDS: ESOMEPRAZOLE 40 MG GT (09:11)
[2023-09-16] MEDS: MULTIVIT-MIN/IRON FUM/FOLIC AC 1 EACH TABLET GT (09:12)
[2023-09-16] MEDS: SODIUM CHLORIDE TAB 1,000 MG TABLET.SOL 1000 MG GT ×2 (09:12→20:05)
[2023-09-16] MEDS: LOSARTAN 100 MG TABLET GT (20:04)
[2023-09-16] MEDS: SENNOSIDES 8.6 MG TABLET 17.2 MG GT (20:05)
[2023-09-17 05:53] VITALS: BP 124/87; PULSE 71; RESP 19; TEMP 36.2
[2023-09-17 06:50] VITALS: PULSE 77; RESP 18; RESP 20; O2SAT 98
[2023-09-17] MEDS: ESOMEPRAZOLE 40 MG GT (08:07)
[2023-09-17] MEDS: MULTIVIT-MIN/IRON FUM/FOLIC AC 1 EACH TABLET GT (08:08)
[2023-09-17] MEDS: SODIUM CHLORIDE TAB 1,000 MG TABLET.SOL 1000 MG GT ×2 (08:08→20:24)
[2023-09-17] MEDS: SOD PHOS DI, MONO/K PHOS MONO 250 MG TABLET GT (08:08)
[2023-09-17 12:00] VITALS: BP 129/81; PULSE 66; RESP 18; TEMP 36.4
[2023-09-17 17:59] VITALS: BP 183/89; PULSE 71; RESP 19; TEMP 35.9
[2023-09-17 20:03] VITALS: PULSE 69; RESP 18; O2SAT 96
[2023-09-17 20:22] VITALS: BP 150/90; PULSE 76
[2023-09-17] MEDS: LOSARTAN 100 MG TABLET GT (20:22)
[2023-09-17] MEDS: SENNOSIDES 8.6 MG TABLET 17.2 MG GT (20:24)
[2023-09-18] VITALS (7 sets, daily range): BP systolic 130–142; BP diastolic 80–91; PULSE 68–88; RESP 18–20; TEMP 36.1–36.3; O2SAT 95–97
[2023-09-18] MEDS: MAGNESIUM HYDROXIDE 30 ML ORAL SUSP ML GT (06:15)
[2023-09-18] MEDS: SODIUM CHLORIDE TAB 1,000 MG TABLET.SOL 1000 MG GT ×2 (07:59→20:27)
[2023-09-18] MEDS: ESOMEPRAZOLE 40 MG GT (07:59)
[2023-09-18] MEDS: MULTIVIT-MIN/IRON FUM/FOLIC AC 1 EACH TABLET GT (07:59)
[2023-09-18] MEDS: SOD PHOS DI, MONO/K PHOS MONO 250 MG TABLET GT (07:59)
[2023-09-18] MEDS: LOSARTAN 100 MG TABLET GT (20:26)
[2023-09-18] MEDS: SENNOSIDES 8.6 MG TABLET 17.2 MG GT (20:26)
[2023-09-19] VITALS (7 sets, daily range): BP systolic 133–154; BP diastolic 74–91; PULSE 69–79; RESP 18–20; TEMP 35.8–36.4; O2SAT 95–97
[2023-09-19] MEDS: ESOMEPRAZOLE 40 MG GT (07:59)
[2023-09-19] MEDS: SOD PHOS DI, MONO/K PHOS MONO 250 MG TABLET GT (08:00)
[2023-09-19] MEDS: MULTIVIT-MIN/IRON FUM/FOLIC AC 1 EACH TABLET GT (08:00)
[2023-09-19] MEDS: SODIUM CHLORIDE TAB 1,000 MG TABLET.SOL 1000 MG GT ×2 (08:00→21:20)
[2023-09-19] MEDS: SENNOSIDES 8.6 MG TABLET 17.2 MG GT (21:20)
[2023-09-19] MEDS: LOSARTAN 100 MG TABLET GT (21:20)
--- NOTE | 2023-09-19 21:22 | ESPR_ITS ---
Progress Note - SubAcute SUBJECTIVE Fever:: none GI:: none Shortness of Breath:: none GI:: no complaints Pain:: none OBJECTIVE Most recent vital signs: Last Vital Signs Temp 97.6 F 09/19/23 18:00 Pulse 76 09/19/23 21:20 Resp 18 09/19/23 18:00 BP 140/89 H 09/19/23 21:20 Pulse Ox 95 09/19/23 06:00 O2 Del Method Blow-by 09/19/23 06:00 O2 Flow Rate 6 09/19/23 05:55 FiO2 28 09/19/23 05:55 Neurological:: alert Speech:: nods head, mouths words (sometimes) and appropriate Answers questions:: sometimes Respiratory:: shallow breathing Cardiovascular: RRR Abdomen: soft and nontender Extremities:: deformities Decubitus:: none Tracheostomy:: to blow by Feeding per:: G tube Complaints:: none ASSESSMENT & PLAN Assessment: 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 Plan: All treatment reviewed and continued.
[2023-09-20] VITALS: BP 154/88; PULSE 75; RESP 18; TEMP 36.3
[2023-09-20 05:55] VITALS: PULSE 67; RESP 20; O2SAT 97
[2023-09-20 06:00] VITALS: BP 125/76; PULSE 67; RESP 20; TEMP 36.2; O2SAT 97
[2023-09-20] MEDS: SOD PHOS DI, MONO/K PHOS MONO 250 MG TABLET GT (09:50)
[2023-09-20] MEDS: ESOMEPRAZOLE 40 MG GT (09:50)
[2023-09-20] MEDS: SODIUM CHLORIDE TAB 1,000 MG TABLET.SOL 1000 MG GT ×2 (09:50→20:10)
[2023-09-20] MEDS: MULTIVIT-MIN/IRON FUM/FOLIC AC 1 EACH TABLET GT (09:50)
[2023-09-20] MEDS: CARBAMIDE PEROXIDE OTIC SOL 15 ML BTL 5 DROP BOTH EARS (09:50)
[2023-09-20 12:00] VITALS: BP 130/88; PULSE 72; RESP 18; TEMP 36.2
--- NOTE | 2023-09-20 13:54 | CHAP ---
10:30 AM Visited by spiritual care volunteer Provided prayer for Patient.
[2023-09-20 17:53] VITALS: BP 126/86; PULSE 75; RESP 17; TEMP 36.1; O2SAT 97
[2023-09-20 20:08] VITALS: BP 132/86; PULSE 72
[2023-09-20] MEDS: LOSARTAN 100 MG TABLET GT (20:08)
[2023-09-20] MEDS: SENNOSIDES 8.6 MG TABLET 17.2 MG GT (20:08)
[2023-09-20] MEDS: MAGNESIUM HYDROXIDE 30 ML ORAL SUSP ML GT (21:33)
[2023-09-21] VITALS (7 sets, daily range): BP systolic 110–163; BP diastolic 68–87; PULSE 52–73; RESP 16–18; TEMP 36.1–36.4; O2SAT 95–98
[2023-09-21] MEDS: SODIUM CHLORIDE TAB 1,000 MG TABLET.SOL 1000 MG GT ×2 (08:02→20:04)
[2023-09-21] MEDS: CARBAMIDE PEROXIDE OTIC SOL 15 ML BTL 5 DROP BOTH EARS ×3 (08:02→20:02)
[2023-09-21] MEDS: MULTIVIT-MIN/IRON FUM/FOLIC AC 1 EACH TABLET GT (08:02)
[2023-09-21] MEDS: SOD PHOS DI, MONO/K PHOS MONO 250 MG TABLET GT (08:02)
[2023-09-21] MEDS: ESOMEPRAZOLE 40 MG GT (08:02)
--- NOTE | 2023-09-21 13:35 | CHAP ---
Patient was visited by the Spiritual Care Volunteer who prayed for them. (Volunteer was in the hospital from 11:30 -1:35).
--- NOTE | 2023-09-21 14:45 | PC.SS ---
Room visit: Resident is laying in bed with head of the bed elevated with call light properly laced. Resident remains on blow by with trach and GT in place for medication and nutrition. Resident has no changes in care or condition, resident will remain in current care. Resident will continue to have all needs met for subacute care. SSD will make daily contact with resident and will monitor for changes in care or condition.
[2023-09-21] MEDS: LOSARTAN 100 MG TABLET GT (20:02)
[2023-09-21] MEDS: SENNOSIDES 8.6 MG TABLET 17.2 MG GT (20:04)
[2023-09-22] VITALS (7 sets, daily range): BP systolic 126–162; BP diastolic 74–90; PULSE 53–63; RESP 16–19; TEMP 36.1–36.4; O2SAT 97–100
[2023-09-22] MEDS: ESOMEPRAZOLE 40 MG GT (08:29)
[2023-09-22] MEDS: MULTIVIT-MIN/IRON FUM/FOLIC AC 1 EACH TABLET GT (08:30)
[2023-09-22] MEDS: SOD PHOS DI, MONO/K PHOS MONO 250 MG TABLET GT (08:30)
[2023-09-22] MEDS: SODIUM CHLORIDE TAB 1,000 MG TABLET.SOL 1000 MG GT ×2 (08:31→20:10)
[2023-09-22] MEDS: CARBAMIDE PEROXIDE OTIC SOL 15 ML BTL 5 DROP BOTH EARS (09:00)
[2023-09-22] MEDS: LOSARTAN 100 MG TABLET GT (20:09)
[2023-09-22] MEDS: SENNOSIDES 8.6 MG TABLET 17.2 MG GT (20:10)
[2023-09-23] VITALS (7 sets, daily range): BP systolic 128–158; BP diastolic 77–83; PULSE 56–78; RESP 18–20; TEMP 35.5–36.3; O2SAT 96–98
[2023-09-23] MEDS: ESOMEPRAZOLE 40 MG GT (10:09)
[2023-09-23] MEDS: SOD PHOS DI, MONO/K PHOS MONO 250 MG TABLET GT (10:09)
[2023-09-23] MEDS: MULTIVIT-MIN/IRON FUM/FOLIC AC 1 EACH TABLET GT (10:09)
[2023-09-23] MEDS: SODIUM CHLORIDE TAB 1,000 MG TABLET.SOL 1000 MG GT ×2 (10:10→20:07)
--- NOTE | 2023-09-23 18:40 | PD.SAPROG ---
Progress Note - SubAcute SUBJECTIVE Fever:: none GI:: none Shortness of Breath:: none GI:: no complaints Pain:: none OBJECTIVE Most recent vital signs: Last Vital Signs Temp 96.9 F 09/25/23 00:00 Pulse 67 09/25/23 00:00 Resp 18 09/25/23 00:00 BP 108/69 09/25/23 00:00 Pulse Ox 96 09/24/23 20:32 O2 Del Method Blow-by 09/23/23 17:53 O2 Flow Rate 6 09/24/23 20:32 FiO2 28 09/24/23 20:32 Neurological:: alert Speech:: nods head, mouths words (sometimes) and appropriate Answers questions:: sometimes Respiratory:: shallow breathing Cardiovascular: RRR Abdomen: soft and nontender Extremities:: deformities Decubitus:: none Tracheostomy:: to blow by Feeding per:: G tube Complaints:: none ASSESSMENT & PLAN Assessment: 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 Plan: All treatment reviewed and continued.
[2023-09-23] MEDS: LOSARTAN 100 MG TABLET GT (20:05)
[2023-09-23] MEDS: CARBAMIDE PEROXIDE OTIC SOL 15 ML BTL 5 DROP BOTH EARS (20:05)
[2023-09-23] MEDS: SENNOSIDES 8.6 MG TABLET 17.2 MG GT (20:07)
[2023-09-23] MEDS: MAGNESIUM HYDROXIDE 30 ML ORAL SUSP ML GT (20:07)
[2023-09-24] VITALS (7 sets, daily range): BP systolic 106–164; BP diastolic 73–90; PULSE 62–90; RESP 18–22; TEMP 36.1–36.4; O2SAT 96–98
[2023-09-24] MEDS: SOD PHOS DI, MONO/K PHOS MONO 250 MG TABLET GT (08:01)
[2023-09-24] MEDS: SODIUM CHLORIDE TAB 1,000 MG TABLET.SOL 1000 MG GT ×2 (08:01→20:09)
[2023-09-24] MEDS: ESOMEPRAZOLE 40 MG GT (08:01)
[2023-09-24] MEDS: MULTIVIT-MIN/IRON FUM/FOLIC AC 1 EACH TABLET GT (08:01)
[2023-09-24] MEDS: LOSARTAN 100 MG TABLET GT (20:08)
[2023-09-24] MEDS: SENNOSIDES 8.6 MG TABLET 17.2 MG GT (20:09)
[2023-09-25] VITALS (7 sets, daily range): BP systolic 103–151; BP diastolic 69–84; PULSE 56–82; RESP 17–18; TEMP 35.9–36.1; O2SAT 95–98
--- NOTE | 2023-09-25 08:40 | CHAP ---
Patient was visited by a [facility] Spiritual Care Volunteer on 09/23/2023 between 1432 and 1512 and received comfort, encouragement and/or prayer.
[2023-09-25] MEDS: SOD PHOS DI, MONO/K PHOS MONO 250 MG TABLET GT (09:57)
[2023-09-25] MEDS: SODIUM CHLORIDE TAB 1,000 MG TABLET.SOL 1000 MG GT ×2 (09:57→21:00)
[2023-09-25] MEDS: MULTIVIT-MIN/IRON FUM/FOLIC AC 1 EACH TABLET GT (09:57)
[2023-09-25] MEDS: ESOMEPRAZOLE 40 MG GT (09:57)
[2023-09-25] MEDS: LOSARTAN 100 MG TABLET GT (20:59)
[2023-09-25] MEDS: SENNOSIDES 8.6 MG TABLET 17.2 MG GT (21:00)
[2023-09-26] VITALS: BP 131/88; PULSE 93; RESP 18; TEMP 36.7
[2023-09-26 06:00] VITALS: BP 127/80; PULSE 69; RESP 20; TEMP 36.6; O2SAT 97
[2023-09-26 07:14] VITALS: PULSE 67; RESP 18; O2SAT 98
[2023-09-26] MEDS: SOD PHOS DI, MONO/K PHOS MONO 250 MG TABLET GT (08:00)
[2023-09-26] MEDS: ESOMEPRAZOLE 40 MG GT (08:00)
[2023-09-26] MEDS: MULTIVIT-MIN/IRON FUM/FOLIC AC 1 EACH TABLET GT (08:00)
[2023-09-26] MEDS: SODIUM CHLORIDE TAB 1,000 MG TABLET.SOL 1000 MG GT ×2 (08:00→21:00)
[2023-09-26 12:00] VITALS: BP 129/84; PULSE 52; RESP 17; TEMP 36.1
[2023-09-26 17:49] VITALS: BP 134/82; PULSE 70; RESP 19; TEMP 36.1; O2SAT 98
[2023-09-26 21:00] VITALS: BP 136/72; PULSE 82
[2023-09-26] MEDS: SENNOSIDES 8.6 MG TABLET 17.2 MG GT (21:00)
[2023-09-26] MEDS: LOSARTAN 100 MG TABLET GT (21:00)
[2023-09-26] MEDS: MAGNESIUM HYDROXIDE 30 ML ORAL SUSP ML GT (21:00)
[2023-09-27] VITALS: BP 145/79; PULSE 64; RESP 18; TEMP 36.2
[2023-09-27 06:00] VITALS: BP 148/77; PULSE 54; PULSE 65; RESP 18; TEMP 36.3; O2SAT 97; O2SAT 99
[2023-09-27] MEDS: SODIUM CHLORIDE TAB 1,000 MG TABLET.SOL 1000 MG GT ×2 (08:10→20:25)
[2023-09-27] MEDS: SOD PHOS DI, MONO/K PHOS MONO 250 MG TABLET GT (08:10)
[2023-09-27] MEDS: ESOMEPRAZOLE 40 MG GT (08:10)
[2023-09-27] MEDS: MULTIVIT-MIN/IRON FUM/FOLIC AC 1 EACH TABLET GT (08:10)
[2023-09-27 12:00] VITALS: BP 167/90; PULSE 70; RESP 19; TEMP 36.1
[2023-09-27 17:47] VITALS: BP 169/86; PULSE 93; RESP 18; TEMP 36.2; O2SAT 95
[2023-09-27 20:23] VITALS: BP 157/88; PULSE 73
[2023-09-27] MEDS: LOSARTAN 100 MG TABLET GT (20:23)
[2023-09-27] MEDS: SENNOSIDES 8.6 MG TABLET 17.2 MG GT (20:24)
--- NOTE | 2023-09-27 22:55 | PD.SAPROG ---
Progress Note - SubAcute SUBJECTIVE Fever:: none GI:: none Shortness of Breath:: none GI:: no complaints Pain:: none OBJECTIVE Most recent vital signs: Last Vital Signs Temp 97.2 F 09/27/23 17:47 Pulse 73 09/27/23 20:23 Resp 18 09/27/23 17:47 BP 157/88 H 09/27/23 20:23 Pulse Ox 95 09/27/23 17:47 O2 Del Method Blow-by 09/25/23 06:00 O2 Flow Rate 6 09/27/23 06:00 FiO2 28 09/27/23 06:00 Neurological:: alert Speech:: nods head, mouths words (sometimes) and appropriate Answers questions:: sometimes Respiratory:: shallow breathing Cardiovascular: RRR Abdomen: soft and nontender Extremities:: deformities Decubitus:: none Tracheostomy:: to blow by Feeding per:: G tube Complaints:: none ASSESSMENT & PLAN Assessment: 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 Plan: All treatment reviewed and continued.
[2023-09-28] VITALS (8 sets, daily range): BP systolic 122–154; BP diastolic 62–87; PULSE 62–97; RESP 18–19; TEMP 36.1–36.2; O2SAT 95–99
[2023-09-28] MEDS: SODIUM PHOSPHATE,MONO-DIBASIC 133 ML ENEMA PR (00:48)
[2023-09-28] MEDS: SOD PHOS DI, MONO/K PHOS MONO 250 MG TABLET GT (07:59)
[2023-09-28] MEDS: ESOMEPRAZOLE 40 MG GT (07:59)
[2023-09-28] MEDS: MULTIVIT-MIN/IRON FUM/FOLIC AC 1 EACH TABLET GT (07:59)
[2023-09-28] MEDS: SODIUM CHLORIDE TAB 1,000 MG TABLET.SOL 1000 MG GT ×2 (07:59→21:32)
[2023-09-28] MEDS: MAGNESIUM HYDROXIDE 30 ML ORAL SUSP ML GT (14:00)
[2023-09-28] MEDS: LOSARTAN 100 MG TABLET GT (21:32)
[2023-09-28] MEDS: SENNOSIDES 8.6 MG TABLET 17.2 MG GT (21:32)
[2023-09-29] VITALS: BP 126/64; PULSE 62; RESP 18; TEMP 36.2
[2023-09-29 06:00] VITALS: BP 142/89; PULSE 60; PULSE 65; PULSE 68; RESP 18; TEMP 36.2; O2SAT 93; O2SAT 96; O2SAT 97
[2023-09-29] MEDS: SOD PHOS DI, MONO/K PHOS MONO 250 MG TABLET GT (08:10)
[2023-09-29] MEDS: ESOMEPRAZOLE 40 MG GT (08:10)
[2023-09-29] MEDS: SODIUM CHLORIDE TAB 1,000 MG TABLET.SOL 1000 MG GT ×2 (08:11→20:07)
[2023-09-29] MEDS: MULTIVIT-MIN/IRON FUM/FOLIC AC 1 EACH TABLET GT (08:11)
[2023-09-29 11:44] VITALS: BP 112/66; PULSE 51; RESP 17; TEMP 36.1
[2023-09-29 17:55] VITALS: BP 147/91; PULSE 71; RESP 17; TEMP 36.1; O2SAT 98
[2023-09-29 18:00] VITALS: PULSE 88; RESP 18; O2SAT 96
[2023-09-29 20:07] VITALS: BP 138/84; PULSE 69
[2023-09-29] MEDS: LOSARTAN 100 MG TABLET GT (20:07)
[2023-09-29] MEDS: SENNOSIDES 8.6 MG TABLET 17.2 MG GT (20:07)
--- NOTE | 2023-09-29 21:07 | PD.SAPROG ---
Progress Note - SubAcute SUBJECTIVE Fever:: none GI:: none Shortness of Breath:: none GI:: no complaints Pain:: none OBJECTIVE Most recent vital signs: Last Vital Signs Temp 96.9 F 09/29/23 17:55 Pulse 69 09/29/23 20:07 Resp 17 09/29/23 17:55 BP 138/84 H 09/29/23 20:07 Pulse Ox 98 09/29/23 17:55 O2 Del Method Blow-by 09/28/23 05:46 O2 Flow Rate 6 09/29/23 06:00 FiO2 28 09/29/23 06:00 Neurological:: alert Speech:: nods head, mouths words (sometimes) and appropriate Answers questions:: sometimes Respiratory:: shallow breathing Cardiovascular: RRR Abdomen: soft and nontender Extremities:: deformities Decubitus:: none Tracheostomy:: to blow by Feeding per:: G tube Complaints:: none ASSESSMENT & PLAN Assessment: 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 Plan: All treatment reviewed and continued.
[2023-09-29] MEDS: SODIUM PHOSPHATE,MONO-DIBASIC 133 ML ENEMA PR (21:31)
[2023-09-30] VITALS: BP 128/84; PULSE 80; RESP 18; TEMP 36.4
[2023-09-30 06:00] VITALS: BP 145/82; PULSE 84; PULSE 85; RESP 18; TEMP 36.2; O2SAT 95; O2SAT 97
[2023-09-30] MEDS: ESOMEPRAZOLE 40 MG GT (07:55)
[2023-09-30] MEDS: SOD PHOS DI, MONO/K PHOS MONO 250 MG TABLET GT (07:55)
[2023-09-30] MEDS: MULTIVIT-MIN/IRON FUM/FOLIC AC 1 EACH TABLET GT (07:56)
[2023-09-30] MEDS: SODIUM CHLORIDE TAB 1,000 MG TABLET.SOL 1000 MG GT ×2 (07:58→21:22)
[2023-09-30 09:00] VITALS: PULSE 80; RESP 18; O2SAT 96
[2023-09-30 12:00] VITALS: BP 111/76; PULSE 85; RESP 18; TEMP 36.3
[2023-09-30 18:00] VITALS: BP 111/76; PULSE 65; PULSE 81; RESP 18; TEMP 36.3; O2SAT 97; O2SAT 98
[2023-09-30 21:22] VITALS: BP 126/79; PULSE 80
[2023-09-30] MEDS: SENNOSIDES 8.6 MG TABLET 17.2 MG GT (21:22)
[2023-09-30] MEDS: LOSARTAN 100 MG TABLET GT (21:22)
[2023-10-01] VITALS (8 sets, daily range): BP systolic 146–169; BP diastolic 73–87; PULSE 56–88; RESP 16–20; TEMP 35.9–36.4; O2SAT 96–97
[2023-10-01] MEDS: ESOMEPRAZOLE 40 MG GT (08:08)
[2023-10-01] MEDS: SOD PHOS DI, MONO/K PHOS MONO 250 MG TABLET GT (08:09)
[2023-10-01] MEDS: MULTIVIT-MIN/IRON FUM/FOLIC AC 1 EACH TABLET GT (08:10)
[2023-10-01] MEDS: SODIUM CHLORIDE TAB 1,000 MG TABLET.SOL 1000 MG GT ×2 (08:10→20:12)
[2023-10-01 08:14] LABS: Albumin, Serum 4.0 gm/dL (3.4-4.8); Anion Gap 6 (7-16); BUN/Creatinine Ratio 48 Ratio (12-20); Blood Urea Nitrogen 19 mg/dL (9-23); Calcium 9.4 mg/dL (8.3-10.6); Calcium (Corrected) 9.4 mg/dL (8.5-10.1); Carbon Dioxide 27.1 mMol/L (20.0-31.0); Chloride 105 mMol/L (98-107); Creatinine (Component) 0.4 mg/dL (0.6-1.3); Estimated Creatinine Clearance 103.0 mL/min (>60); Glucose 82 mg/dL (74-106); Osmolality,Calculated 276 (275-295); Phosphorous 4.0 mg/dL (2.4-5.1); Potassium 4.0 mMol/L (3.4-5.1); Sodium 138 mMol/L (136-145); eGFR > 60 See Note
[2023-10-01] MEDS: LOSARTAN 100 MG TABLET GT (20:11)
[2023-10-01] MEDS: SENNOSIDES 8.6 MG TABLET 17.2 MG GT (20:12)
[2023-10-02] VITALS (7 sets, daily range): BP systolic 126–170; BP diastolic 74–88; PULSE 64–79; RESP 18–20; TEMP 36.1–36.3; O2SAT 97–98
[2023-10-02] MEDS: ESOMEPRAZOLE 40 MG GT (08:01)
[2023-10-02] MEDS: MULTIVIT-MIN/IRON FUM/FOLIC AC 1 EACH TABLET GT (08:01)
[2023-10-02] MEDS: SOD PHOS DI, MONO/K PHOS MONO 250 MG TABLET GT (08:01)
[2023-10-02] MEDS: SODIUM CHLORIDE TAB 1,000 MG TABLET.SOL 1000 MG GT ×2 (08:02→20:04)
--- NOTE | 2023-10-02 15:35 | PC.NURSE ---
IDT was done today. Resident on max fluid NS [address] recommended to increase it to 700 ml max q shift due to constipation. On Renal panel q monthly due to hyponatremia with stable sodium level. Dr Gonsalez was made aware and agreed. New orders received
[2023-10-02] MEDS: LOSARTAN 100 MG TABLET GT (20:02)
[2023-10-02] MEDS: SENNOSIDES 8.6 MG TABLET 17.2 MG GT (20:03)
[2023-10-03] VITALS (7 sets, daily range): BP systolic 148–164; BP diastolic 83–97; PULSE 56–73; RESP 18–20; TEMP 36.1–36.2; O2SAT 95–97
[2023-10-03] MEDS: SOD PHOS DI, MONO/K PHOS MONO 250 MG TABLET GT (08:00)
[2023-10-03] MEDS: SODIUM CHLORIDE TAB 1,000 MG TABLET.SOL 1000 MG GT ×2 (08:00→20:12)
[2023-10-03] MEDS: ESOMEPRAZOLE 40 MG GT (08:00)
[2023-10-03] MEDS: MULTIVIT-MIN/IRON FUM/FOLIC AC 1 EACH TABLET GT (08:00)
[2023-10-03] MEDS: LOSARTAN 100 MG TABLET GT (20:11)
[2023-10-03] MEDS: SENNOSIDES 8.6 MG TABLET 17.2 MG GT (20:11)
[2023-10-04] VITALS (7 sets, daily range): BP systolic 146–173; BP diastolic 75–93; PULSE 60–78; RESP 18; TEMP 36.1–36.7; O2SAT 95–97
[2023-10-04] MEDS: MULTIVIT-MIN/IRON FUM/FOLIC AC 1 EACH TABLET GT (09:16)
[2023-10-04] MEDS: SOD PHOS DI, MONO/K PHOS MONO 250 MG TABLET GT (09:16)
[2023-10-04] MEDS: SODIUM CHLORIDE TAB 1,000 MG TABLET.SOL 1000 MG GT ×2 (09:16→20:00)
[2023-10-04] MEDS: ESOMEPRAZOLE 40 MG GT (09:16)
--- NOTE | 2023-10-04 10:40 | CHAP ---
Patient was visited by the Spiritual Care Volunteer who prayed for them. (Volunteer was in the hospital from 10:15-10:40).
--- NOTE | 2023-10-04 12:02 | PC.NURSE ---
Department Store Manager Pharmacist MRR
--- NOTE | 2023-10-04 13:25 | PD.SAPROG ---
Progress Note - SubAcute SUBJECTIVE Fever:: none GI:: none Shortness of Breath:: none GI:: no complaints Pain:: none OBJECTIVE Most recent vital signs: Last Vital Signs Temp 96.6 F L 10/08/23 17:58 Pulse 70 10/08/23 20:28 Resp 19 10/08/23 17:58 BP 132/80 H 10/08/23 20:28 Pulse Ox 97 10/08/23 17:58 O2 Del Method Blow-by 10/08/23 17:58 O2 Flow Rate 6 10/08/23 06:31 FiO2 28 10/08/23 06:31 Neurological:: alert Speech:: nods head, mouths words (sometimes) and appropriate Answers questions:: sometimes Respiratory:: shallow breathing Cardiovascular: RRR Abdomen: soft and nontender Extremities:: deformities Decubitus:: none Tracheostomy:: to blow by Feeding per:: G tube Complaints:: none ASSESSMENT & PLAN Assessment: 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 Plan: All treatment reviewed and continued.
[2023-10-04] MEDS: LOSARTAN 100 MG TABLET GT (20:00)
[2023-10-04] MEDS: SENNOSIDES 8.6 MG TABLET 17.2 MG GT (20:00)
[2023-10-04] MEDS: MAGNESIUM HYDROXIDE 30 ML ORAL SUSP ML GT (20:01)
[2023-10-05] VITALS (7 sets, daily range): BP systolic 130–143; BP diastolic 79–95; PULSE 68–77; RESP 16–18; TEMP 36.1–36.3; O2SAT 95–96
[2023-10-05] MEDS: MULTIVIT-MIN/IRON FUM/FOLIC AC 1 EACH TABLET GT (09:47)
[2023-10-05] MEDS: SOD PHOS DI, MONO/K PHOS MONO 250 MG TABLET GT (09:47)
[2023-10-05] MEDS: SODIUM CHLORIDE TAB 1,000 MG TABLET.SOL 1000 MG GT ×2 (09:47→20:06)
[2023-10-05] MEDS: ESOMEPRAZOLE 40 MG GT (09:47)
[2023-10-05] MEDS: LOSARTAN 100 MG TABLET GT (20:05)
[2023-10-05] MEDS: SENNOSIDES 8.6 MG TABLET 17.2 MG GT (20:05)
[2023-10-06] VITALS (7 sets, daily range): BP systolic 136–173; BP diastolic 78–94; PULSE 54–84; RESP 16–19; TEMP 36.1–36.2; O2SAT 95–99
[2023-10-06] MEDS: SOD PHOS DI, MONO/K PHOS MONO 250 MG TABLET GT (08:03)
[2023-10-06] MEDS: MULTIVIT-MIN/IRON FUM/FOLIC AC 1 EACH TABLET GT (08:03)
[2023-10-06] MEDS: ESOMEPRAZOLE 40 MG GT (08:03)
[2023-10-06] MEDS: SODIUM CHLORIDE TAB 1,000 MG TABLET.SOL 1000 MG GT ×2 (08:03→21:10)
[2023-10-06] MEDS: SENNOSIDES 8.6 MG TABLET 17.2 MG GT (21:09)
[2023-10-06] MEDS: LOSARTAN 100 MG TABLET GT (21:09)
[2023-10-07] VITALS (9 sets, daily range): BP systolic 123–160; BP diastolic 73–88; PULSE 58–79; RESP 18–20; TEMP 36.1; O2SAT 98–99
[2023-10-07] MEDS: ESOMEPRAZOLE 40 MG GT (08:01)
[2023-10-07] MEDS: SOD PHOS DI, MONO/K PHOS MONO 250 MG TABLET GT (08:02)
[2023-10-07] MEDS: SODIUM CHLORIDE TAB 1,000 MG TABLET.SOL 1000 MG GT ×2 (08:02→21:04)
[2023-10-07] MEDS: MULTIVIT-MIN/IRON FUM/FOLIC AC 1 EACH TABLET GT (08:02)
[2023-10-07] MEDS: LOSARTAN 100 MG TABLET GT (21:03)
[2023-10-07] MEDS: SENNOSIDES 8.6 MG TABLET 17.2 MG GT (21:04)
--- NOTE | 2023-10-07 21:20 | PC.NURSE ---
TRACH OUT FOUND BY NATY BROOKS. RESIDENT WAS HOLDING TRACH TUBE. NO S/S RESPIRATORY DISTRESS. RESIDENT AWAKE, ALERT, NO C/O DISCOMFORT. O2 SAT 97% ON BB 6L 28%. NEW TRACH TUBE INSERTED BY AUDREY MORENO. TOLERATED WELL, NO BLEEDING NOTED. RTs VINCENT AND RHEA AT BEDSIDE.
[2023-10-08] VITALS (8 sets, daily range): BP systolic 110–157; BP diastolic 70–84; PULSE 59–73; RESP 16–20; TEMP 35.9–36.2; O2SAT 97–99
[2023-10-08] MEDS: MAGNESIUM HYDROXIDE 30 ML ORAL SUSP ML GT (05:30)
[2023-10-08] MEDS: ESOMEPRAZOLE 40 MG GT (08:05)
[2023-10-08] MEDS: MULTIVIT-MIN/IRON FUM/FOLIC AC 1 EACH TABLET GT (08:05)
[2023-10-08] MEDS: SODIUM CHLORIDE TAB 1,000 MG TABLET.SOL 1000 MG GT ×2 (08:05→20:29)
[2023-10-08] MEDS: SOD PHOS DI, MONO/K PHOS MONO 250 MG TABLET GT (08:05)
[2023-10-08] MEDS: SENNOSIDES 8.6 MG TABLET 17.2 MG GT (20:28)
[2023-10-08] MEDS: LOSARTAN 100 MG TABLET GT (20:28)
--- NOTE | 2023-10-08 21:33 | ESPR_ITS ---
Progress Note - SubAcute SUBJECTIVE Fever:: none GI:: none Shortness of Breath:: none GI:: no complaints Pain:: none OBJECTIVE Most recent vital signs: Last Vital Signs Temp 96.6 F L 10/08/23 17:58 Pulse 70 10/08/23 20:28 Resp 19 10/08/23 17:58 BP 132/80 H 10/08/23 20:28 Pulse Ox 97 10/08/23 17:58 O2 Del Method Blow-by 10/08/23 17:58 O2 Flow Rate 6 10/08/23 06:31 FiO2 28 10/08/23 06:31 Neurological:: alert Speech:: nods head, mouths words (sometimes) and appropriate Answers questions:: sometimes Respiratory:: shallow breathing Cardiovascular: RRR Abdomen: soft and nontender Extremities:: deformities Decubitus:: none Tracheostomy:: to blow by Feeding per:: G tube Complaints:: none ASSESSMENT & PLAN Assessment: 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 Plan: All treatment reviewed and continued.
[2023-10-09] VITALS (7 sets, daily range): BP systolic 107–158; BP diastolic 72–89; PULSE 58–70; RESP 16–20; TEMP 36.1–36.4; O2SAT 92–98
[2023-10-09] MEDS: SOD PHOS DI, MONO/K PHOS MONO 250 MG TABLET GT (08:00)
[2023-10-09] MEDS: ESOMEPRAZOLE 40 MG GT (08:00)
[2023-10-09] MEDS: MULTIVIT-MIN/IRON FUM/FOLIC AC 1 EACH TABLET GT (08:00)
[2023-10-09] MEDS: SODIUM CHLORIDE TAB 1,000 MG TABLET.SOL 1000 MG GT ×2 (08:01→20:10)
[2023-10-09] MEDS: LOSARTAN 100 MG TABLET GT (20:09)
[2023-10-09] MEDS: SENNOSIDES 8.6 MG TABLET 17.2 MG GT (20:10)
[2023-10-10 05:44] VITALS: BP 139/80; PULSE 62; RESP 18; TEMP 36.2; O2SAT 95
[2023-10-10 07:20] VITALS: PULSE 61; RESP 16; O2SAT 98
[2023-10-10] MEDS: MULTIVIT-MIN/IRON FUM/FOLIC AC 1 EACH TABLET GT (09:13)
[2023-10-10] MEDS: ESOMEPRAZOLE 40 MG GT (09:13)
[2023-10-10] MEDS: SODIUM CHLORIDE TAB 1,000 MG TABLET.SOL 1000 MG GT ×2 (09:13→20:49)
[2023-10-10] MEDS: SOD PHOS DI, MONO/K PHOS MONO 250 MG TABLET GT (09:13)
[2023-10-10 12:00] VITALS: BP 137/78; PULSE 56; RESP 19; TEMP 36.3
[2023-10-10 18:00] VITALS: BP 151/51; PULSE 88; RESP 19; TEMP 36.2; O2SAT 95
[2023-10-10 20:46] VITALS: BP 116/80; PULSE 60
[2023-10-10] MEDS: LOSARTAN 100 MG TABLET GT (20:46)
[2023-10-10] MEDS: SENNOSIDES 8.6 MG TABLET 17.2 MG GT (20:48)
[2023-10-10 21:25] VITALS: PULSE 66; RESP 16; O2SAT 97
[2023-10-11] VITALS (8 sets, daily range): BP systolic 136–164; BP diastolic 71–82; PULSE 54–67; RESP 16–20; TEMP 35.9–36.2; O2SAT 97–99
[2023-10-11] MEDS: MAGNESIUM HYDROXIDE 30 ML ORAL SUSP ML GT (02:21)
[2023-10-11] MEDS: SOD PHOS DI, MONO/K PHOS MONO 250 MG TABLET GT (08:13)
[2023-10-11] MEDS: SODIUM CHLORIDE TAB 1,000 MG TABLET.SOL 1000 MG GT ×2 (08:13→20:55)
[2023-10-11] MEDS: ESOMEPRAZOLE 40 MG GT (08:13)
[2023-10-11] MEDS: MULTIVIT-MIN/IRON FUM/FOLIC AC 1 EACH TABLET GT (08:13)
[2023-10-11] MEDS: LOSARTAN 100 MG TABLET GT (20:54)
[2023-10-11] MEDS: SENNOSIDES 8.6 MG TABLET 17.2 MG GT (20:54)
[2023-10-12 05:47] VITALS: BP 126/90; PULSE 54; RESP 20; TEMP 36.3; O2SAT 97
[2023-10-12] MEDS: SOD PHOS DI, MONO/K PHOS MONO 250 MG TABLET GT (09:38)
[2023-10-12] MEDS: ESOMEPRAZOLE 40 MG GT (09:38)
[2023-10-12] MEDS: SODIUM CHLORIDE TAB 1,000 MG TABLET.SOL 1000 MG GT ×2 (09:39→21:54)
[2023-10-12] MEDS: MULTIVIT-MIN/IRON FUM/FOLIC AC 1 EACH TABLET GT (09:39)
[2023-10-12 11:30] VITALS: PULSE 55; RESP 16; O2SAT 97
--- NOTE | 2023-10-12 11:45 | CHAP ---
Patient was visited by the Spiritual Care Volunteer who prayed for them. (Volunteer was in the hospital from 10:10-11:45).
[2023-10-12 12:00] VITALS: BP 127/90; PULSE 54; RESP 16; TEMP 35.7
[2023-10-12 18:00] VITALS: BP 155/91; PULSE 61; RESP 18; TEMP 35.7; O2SAT 100
[2023-10-12 19:33] VITALS: PULSE 62; RESP 18; O2SAT 94
[2023-10-12 21:53] VITALS: BP 131/90; PULSE 54
[2023-10-12] MEDS: SENNOSIDES 8.6 MG TABLET 17.2 MG GT (21:53)
[2023-10-12] MEDS: LOSARTAN 100 MG TABLET GT (21:53)
--- NOTE | 2023-10-12 22:22 | ESPR_ITS ---
Progress Note - SubAcute SUBJECTIVE Fever:: none GI:: none Shortness of Breath:: none GI:: no complaints Pain:: none OBJECTIVE Most recent vital signs: Last Vital Signs Temp 96.3 F L 10/12/23 18:00 Pulse 54 L 10/12/23 21:53 Resp 18 10/12/23 18:00 BP 131/90 H 10/12/23 21:53 Pulse Ox 100 10/12/23 18:00 O2 Del Method Blow-by 10/12/23 05:47 O2 Flow Rate 6 10/12/23 11:30 FiO2 28 10/12/23 11:30 Neurological:: alert Speech:: nods head, mouths words (sometimes) and appropriate Answers questions:: sometimes Respiratory:: shallow breathing Cardiovascular: RRR Abdomen: soft and nontender Extremities:: deformities Decubitus:: none Tracheostomy:: to blow by Feeding per:: G tube Complaints:: none ASSESSMENT & PLAN Assessment: Pt fully dependent for care home care. Plan: All treatment reviewed and continued.
[2023-10-13] VITALS (7 sets, daily range): BP systolic 137–165; BP diastolic 79–91; PULSE 59–82; RESP 18; TEMP 36.1–36.6; O2SAT 95–98
[2023-10-13] MEDS: MULTIVIT-MIN/IRON FUM/FOLIC AC 1 EACH TABLET GT (09:13)
[2023-10-13] MEDS: SODIUM CHLORIDE TAB 1,000 MG TABLET.SOL 1000 MG GT ×2 (09:13→21:17)
[2023-10-13] MEDS: ESOMEPRAZOLE 40 MG GT (09:13)
[2023-10-13] MEDS: SOD PHOS DI, MONO/K PHOS MONO 250 MG TABLET GT (09:13)
[2023-10-13] MEDS: SENNOSIDES 8.6 MG TABLET 17.2 MG GT (21:17)
[2023-10-13] MEDS: LOSARTAN 100 MG TABLET GT (21:17)
[2023-10-14] VITALS (9 sets, daily range): BP systolic 121–149; BP diastolic 71–90; PULSE 65–98; RESP 17–20; TEMP 36.1–36.3; O2SAT 96–98
[2023-10-14] MEDS: ESOMEPRAZOLE 40 MG GT (09:03)
[2023-10-14] MEDS: SOD PHOS DI, MONO/K PHOS MONO 250 MG TABLET GT (09:04)
[2023-10-14] MEDS: SODIUM CHLORIDE TAB 1,000 MG TABLET.SOL 1000 MG GT ×2 (09:04→21:11)
[2023-10-14] MEDS: MULTIVIT-MIN/IRON FUM/FOLIC AC 1 EACH TABLET GT (09:04)
--- NOTE | 2023-10-14 11:29 | CHAP ---
Patient was visited by the Spiritual Care Volunteer who prayed for them. (Volunteer was in the hospital from 09:32-11:29).
--- NOTE | 2023-10-14 15:49 | PC.NURSE ---
Entry for event of 1240. Starch And Pro[employer] Mixer called to resident's room. Noted trach out. Assessed resident while preparing to insert new trach. No respiratory distress noted during the assessment. Prepared and inserted new trach safely without complications.by RT who came to assisting. Notified MD and Family (resident's family). Placed mitten to Rt hand. Will continue to monitor. Will initiate VS Q4H.
[2023-10-14] MEDS: LOSARTAN 100 MG TABLET GT (21:11)
[2023-10-14] MEDS: SENNOSIDES 8.6 MG TABLET 17.2 MG GT (21:11)
[2023-10-15] VITALS (9 sets, daily range): BP systolic 113–156; BP diastolic 77–97; PULSE 70–95; RESP 18–22; TEMP 36.1–36.3; O2SAT 95–98
[2023-10-15] MEDS: ESOMEPRAZOLE 40 MG GT (09:50)
[2023-10-15] MEDS: MULTIVIT-MIN/IRON FUM/FOLIC AC 1 EACH TABLET GT (09:50)
[2023-10-15] MEDS: SOD PHOS DI, MONO/K PHOS MONO 250 MG TABLET GT (09:50)
[2023-10-15] MEDS: SODIUM CHLORIDE TAB 1,000 MG TABLET.SOL 1000 MG GT ×2 (09:50→20:09)
--- NOTE | 2023-10-15 13:38 | PC.SS ---
Room visit: Resident is laying in bed with head of the bed elevated with call light properly placed with no signs of distress. Resident remains in current care with no changes in care or condition. She has trach in place on blow by with GT for medication and nutrition. Resident is total care, she is engaging with staff and able to answer simple questions with hand gestures. Resident will continue to have all subacute care needs done by staff. This SSD will make daily contact and monitor for changes in care or condition.
--- NOTE | 2023-10-15 14:24 | PC.NURSE ---
Resident is no longer on Q4 vitals for trach out. No BX noted and resident has had no need for mitten this shift. Vital signs WNL. Resident is currently in room 114 due to the floors being cleaned in her room today. Resident noted to appear different this shift with head tilted upwards and left eye fixed upward as well. Resident able to answer some questions and appears to be at baseline other than head and eye position. RN made aware. No c/o pain or discomfort noted. Call light within reach. Will continue with current plan of care.
--- NOTE | 2023-10-15 14:39 | PC.SS ---
Resident seen by Technical Project Coordinator for routine toe nail trim, no new orders to continue current care.
[2023-10-15] MEDS: LOSARTAN 100 MG TABLET GT (20:08)
[2023-10-15] MEDS: SENNOSIDES 8.6 MG TABLET 17.2 MG GT (20:09)
[2023-10-15] MEDS: MAGNESIUM HYDROXIDE 30 ML ORAL SUSP ML GT (21:27)
[2023-10-16] VITALS (9 sets, daily range): BP systolic 103–154; BP diastolic 64–90; PULSE 50–70; RESP 16–23; TEMP 35.9–36.1; O2SAT 98–100
[2023-10-16] MEDS: MULTIVIT-MIN/IRON FUM/FOLIC AC 1 EACH TABLET GT (08:05)
[2023-10-16] MEDS: SOD PHOS DI, MONO/K PHOS MONO 250 MG TABLET GT (08:05)
[2023-10-16] MEDS: ESOMEPRAZOLE 40 MG GT (08:05)
[2023-10-16] MEDS: SODIUM CHLORIDE TAB 1,000 MG TABLET.SOL 1000 MG GT ×2 (08:05→21:10)
[2023-10-16] MEDS: LOSARTAN 100 MG TABLET GT (21:09)
[2023-10-16] MEDS: SENNOSIDES 8.6 MG TABLET 17.2 MG GT (21:10)
--- NOTE | 2023-10-16 21:15 | ESPR_ITS ---
Progress Note - SubAcute SUBJECTIVE Fever:: none GI:: none Shortness of Breath:: none GI:: no complaints Pain:: none OBJECTIVE Most recent vital signs: Last Vital Signs Temp 96.7 F L 10/16/23 17:36 Pulse 60 10/16/23 21:09 Resp 17 10/16/23 17:36 BP 154/90 H 10/16/23 21:09 Pulse Ox 98 10/16/23 17:36 O2 Del Method Blow-by 10/16/23 17:36 O2 Flow Rate 6 10/16/23 09:00 FiO2 28 10/16/23 09:00 Neurological:: alert Speech:: nods head, mouths words (sometimes) and appropriate Answers questions:: sometimes Respiratory:: shallow breathing Cardiovascular: RRR Abdomen: soft and nontender Extremities:: deformities Decubitus:: none Tracheostomy:: to blow by Feeding per:: G tube Complaints:: none ASSESSMENT & PLAN Assessment: 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 Plan: All treatment reviewed and continued.
[2023-10-17 05:41] VITALS: BP 124/72; PULSE 54; RESP 22; TEMP 36.1; O2SAT 98
[2023-10-17 07:40] VITALS: PULSE 59; RESP 18; O2SAT 95
[2023-10-17] MEDS: MULTIVIT-MIN/IRON FUM/FOLIC AC 1 EACH TABLET GT (08:20)
[2023-10-17] MEDS: ESOMEPRAZOLE 40 MG GT (08:20)
[2023-10-17] MEDS: SOD PHOS DI, MONO/K PHOS MONO 250 MG TABLET GT (08:20)
[2023-10-17] MEDS: SODIUM CHLORIDE TAB 1,000 MG TABLET.SOL 1000 MG GT ×2 (08:20→20:00)
[2023-10-17 12:00] VITALS: BP 155/78; PULSE 59; RESP 16; TEMP 35.9
[2023-10-17 17:47] VITALS: BP 120/67; PULSE 67; RESP 16; TEMP 35.9; O2SAT 96
[2023-10-17 20:00] VITALS: BP 140/66; PULSE 71
[2023-10-17] MEDS: LOSARTAN 100 MG TABLET GT (20:00)
[2023-10-17] MEDS: SENNOSIDES 8.6 MG TABLET 17.2 MG GT (20:00)
[2023-10-17] MEDS: ACETAMINOPHEN 325 MG TABLET 650 MG GT (20:01)
[2023-10-17 22:36] VITALS: PULSE 67; RESP 18; RESP 20; O2SAT 95
[2023-10-18] VITALS (7 sets, daily range): BP systolic 94–151; BP diastolic 66–75; PULSE 53–66; RESP 16–18; TEMP 35.9–36.2; O2SAT 96–99
[2023-10-18] MEDS: SODIUM CHLORIDE TAB 1,000 MG TABLET.SOL 1000 MG GT ×2 (08:10→21:30)
[2023-10-18] MEDS: ESOMEPRAZOLE 40 MG GT (08:10)
[2023-10-18] MEDS: MULTIVIT-MIN/IRON FUM/FOLIC AC 1 EACH TABLET GT (08:10)
[2023-10-18] MEDS: SOD PHOS DI, MONO/K PHOS MONO 250 MG TABLET GT (08:10)
--- NOTE | 2023-10-18 15:20 | CHAP ---
10:00 AM Visited by spiritual care volunteer Provided prayer for Patient.
[2023-10-18] MEDS: SENNOSIDES 8.6 MG TABLET 17.2 MG GT (21:27)
[2023-10-18] MEDS: LOSARTAN 100 MG TABLET GT (21:27)
[2023-10-19] VITALS (7 sets, daily range): BP systolic 98–145; BP diastolic 63–80; PULSE 64–77; RESP 18; TEMP 36.1–36.5; O2SAT 97–100
[2023-10-19] MEDS: ESOMEPRAZOLE 40 MG GT (08:06)
[2023-10-19] MEDS: MULTIVIT-MIN/IRON FUM/FOLIC AC 1 EACH TABLET GT (08:06)
[2023-10-19] MEDS: SOD PHOS DI, MONO/K PHOS MONO 250 MG TABLET GT (08:06)
[2023-10-19] MEDS: SODIUM CHLORIDE TAB 1,000 MG TABLET.SOL 1000 MG GT ×2 (08:06→20:40)
--- NOTE | 2023-10-19 12:00 | CHAP ---
Patient was visited by the Spiritual Care Volunteer who prayed for them. (Volunteer was in the hospital from 10:05-12:00)
[2023-10-19] MEDS: SENNOSIDES 8.6 MG TABLET 17.2 MG GT (20:39)
[2023-10-19] MEDS: LOSARTAN 100 MG TABLET GT (20:39)
[2023-10-20] VITALS (7 sets, daily range): BP systolic 110–165; BP diastolic 74–83; PULSE 61–84; RESP 17–20; TEMP 36.1–36.4; O2SAT 96–98
[2023-10-20] MEDS: ESOMEPRAZOLE 40 MG GT (08:03)
[2023-10-20] MEDS: SODIUM CHLORIDE TAB 1,000 MG TABLET.SOL 1000 MG GT ×2 (08:04→20:06)
[2023-10-20] MEDS: SOD PHOS DI, MONO/K PHOS MONO 250 MG TABLET GT (08:04)
[2023-10-20] MEDS: MULTIVIT-MIN/IRON FUM/FOLIC AC 1 EACH TABLET GT (08:04)
[2023-10-20] MEDS: LOSARTAN 100 MG TABLET GT (20:04)
[2023-10-20] MEDS: SENNOSIDES 8.6 MG TABLET 17.2 MG GT (20:06)
--- NOTE | 2023-10-20 23:34 | PD.SAPROG ---
Progress Note - SubAcute SUBJECTIVE Fever:: none GI:: none Shortness of Breath:: none GI:: no complaints Pain:: none OBJECTIVE Most recent vital signs: Last Vital Signs Temp 97.6 F 10/20/23 17:20 Pulse 74 10/20/23 20:04 Resp 18 10/20/23 17:20 BP 139/80 H 10/20/23 20:04 Pulse Ox 96 10/20/23 17:20 O2 Del Method Blow-by 10/20/23 17:20 O2 Flow Rate 6 10/20/23 17:20 FiO2 28 10/20/23 17:20 Neurological:: alert Speech:: nods head, mouths words (sometimes) and appropriate Answers questions:: sometimes Respiratory:: shallow breathing Cardiovascular: RRR Abdomen: soft and nontender Extremities:: deformities Decubitus:: none Tracheostomy:: to blow by Feeding per:: G tube Complaints:: none ASSESSMENT & PLAN Assessment: 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 Plan: All treatment reviewed and continued.
[2023-10-21] VITALS (7 sets, daily range): BP systolic 109–153; BP diastolic 61–82; PULSE 58–104; RESP 18–20; TEMP 36–36.4; O2SAT 97–99
[2023-10-21] MEDS: ESOMEPRAZOLE 40 MG GT (08:01)
[2023-10-21] MEDS: SOD PHOS DI, MONO/K PHOS MONO 250 MG TABLET GT (08:01)
[2023-10-21] MEDS: SODIUM CHLORIDE TAB 1,000 MG TABLET.SOL 1000 MG GT ×2 (08:02→20:25)
[2023-10-21] MEDS: MULTIVIT-MIN/IRON FUM/FOLIC AC 1 EACH TABLET GT (08:02)
--- NOTE | 2023-10-21 11:33 | CHAP ---
Patient was visited by the Spiritual Care Volunteer who prayed for them. (Volunteer was in the hospital from 09:50-11:33)
[2023-10-21] MEDS: SENNOSIDES 8.6 MG TABLET 17.2 MG GT (20:25)
[2023-10-21] MEDS: LOSARTAN 100 MG TABLET GT (20:25)
[2023-10-22] VITALS (8 sets, daily range): BP systolic 99–146; BP diastolic 54–87; PULSE 51–95; RESP 16–18; TEMP 36.1–36.4; O2SAT 98–99
[2023-10-22] MEDS: SODIUM CHLORIDE TAB 1,000 MG TABLET.SOL 1000 MG GT ×2 (08:49→20:05)
[2023-10-22] MEDS: SOD PHOS DI, MONO/K PHOS MONO 250 MG TABLET GT (08:49)
[2023-10-22] MEDS: MULTIVIT-MIN/IRON FUM/FOLIC AC 1 EACH TABLET GT (08:49)
[2023-10-22] MEDS: ESOMEPRAZOLE 40 MG GT (08:49)
[2023-10-22] MEDS: LOSARTAN 100 MG TABLET GT (20:05)
[2023-10-22] MEDS: SENNOSIDES 8.6 MG TABLET 17.2 MG GT (20:05)
[2023-10-23 05:28] VITALS: BP 156/80; PULSE 72; RESP 17; TEMP 36.2
[2023-10-23 07:43] VITALS: PULSE 79; RESP 18; O2SAT 97
[2023-10-23] MEDS: MULTIVIT-MIN/IRON FUM/FOLIC AC 1 EACH TABLET GT (08:56)
[2023-10-23] MEDS: ESOMEPRAZOLE 40 MG GT (08:56)
[2023-10-23] MEDS: SODIUM CHLORIDE TAB 1,000 MG TABLET.SOL 1000 MG GT ×2 (08:56→20:08)
[2023-10-23] MEDS: SOD PHOS DI, MONO/K PHOS MONO 250 MG TABLET GT (08:56)
[2023-10-23 12:00] VITALS: BP 128/79; PULSE 62; RESP 21; TEMP 35.9
[2023-10-23 17:44] VITALS: BP 130/73; PULSE 57; RESP 17; TEMP 36.4
[2023-10-23 19:30] VITALS: PULSE 75; RESP 18; O2SAT 96
[2023-10-23 20:08] VITALS: BP 152/88; PULSE 60
[2023-10-23] MEDS: LOSARTAN 100 MG TABLET GT (20:08)
[2023-10-23] MEDS: SENNOSIDES 8.6 MG TABLET 17.2 MG GT (20:08)
[2023-10-23] MEDS: ACETAMINOPHEN 325 MG TABLET 650 MG GT (20:09)
[2023-10-24] VITALS (8 sets, daily range): BP systolic 114–166; BP diastolic 62–94; PULSE 47–65; RESP 16–24; TEMP 36.2–36.4; O2SAT 95–98
[2023-10-24] MEDS: SODIUM CHLORIDE TAB 1,000 MG TABLET.SOL 1000 MG GT ×2 (08:30→21:00)
[2023-10-24] MEDS: MULTIVIT-MIN/IRON FUM/FOLIC AC 1 EACH TABLET GT (08:30)
[2023-10-24] MEDS: ESOMEPRAZOLE 40 MG GT (08:30)
[2023-10-24] MEDS: SOD PHOS DI, MONO/K PHOS MONO 250 MG TABLET GT (08:30)
--- NOTE | 2023-10-24 14:20 | ESPR_ITS ---
Progress Note - SubAcute SUBJECTIVE Fever:: none GI:: none Shortness of Breath:: none GI:: no complaints Pain:: none OBJECTIVE Most recent vital signs: Last Vital Signs Temp 96.7 F L 10/28/23 12:00 Pulse 57 L 10/28/23 12:00 Resp 16 10/28/23 12:00 BP 109/75 10/28/23 12:00 Pulse Ox 98 10/28/23 06:10 O2 Del Method Blow-by 10/28/23 05:45 O2 Flow Rate 6 10/28/23 06:10 FiO2 28 10/28/23 06:10 Neurological:: alert Speech:: nods head, mouths words (sometimes) and appropriate Answers questions:: sometimes Respiratory:: shallow breathing Cardiovascular: RRR Abdomen: soft and nontender Extremities:: deformities Decubitus:: none Tracheostomy:: to blow by Feeding per:: G tube Complaints:: none ASSESSMENT & PLAN Assessment: 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 Plan: All treatment reviewed and continued.
--- NOTE | 2023-10-24 15:56 | PC.NURSE ---
Resident was taken to shower room and received shower. Bed linens were changed. Resident tolerated well. All treatments and trach care were done at this time. No emesis or SOB noted during bed bath. Call light in reach.
[2023-10-24] MEDS: SENNOSIDES 8.6 MG TABLET 17.2 MG GT (21:00)
[2023-10-24] MEDS: LOSARTAN 100 MG TABLET GT (21:00)
[2023-10-25] VITALS (8 sets, daily range): BP systolic 100–139; BP diastolic 73–80; PULSE 53–69; RESP 16–20; TEMP 35.9–36.4; O2SAT 94–98
[2023-10-25] MEDS: ESOMEPRAZOLE 40 MG GT (08:16)
[2023-10-25] MEDS: SOD PHOS DI, MONO/K PHOS MONO 250 MG TABLET GT (08:16)
[2023-10-25] MEDS: MULTIVIT-MIN/IRON FUM/FOLIC AC 1 EACH TABLET GT (08:17)
[2023-10-25] MEDS: SODIUM CHLORIDE TAB 1,000 MG TABLET.SOL 1000 MG GT ×2 (08:17→20:57)
--- NOTE | 2023-10-25 11:38 | CHAP ---
Patient was visited by Spiritual Care Volunteer who prayed for them. (Volunteer was in the hospital from 10:48-11:38)
[2023-10-25] MEDS: LOSARTAN 100 MG TABLET GT (20:56)
[2023-10-25] MEDS: SENNOSIDES 8.6 MG TABLET 17.2 MG GT (20:57)
[2023-10-26] VITALS (7 sets, daily range): BP systolic 120–142; BP diastolic 70–89; PULSE 58–73; RESP 16–20; TEMP 36.2–36.6; O2SAT 94–98
[2023-10-26] MEDS: ESOMEPRAZOLE 40 MG GT (08:24)
[2023-10-26] MEDS: MULTIVIT-MIN/IRON FUM/FOLIC AC 1 EACH TABLET GT (08:24)
[2023-10-26] MEDS: SOD PHOS DI, MONO/K PHOS MONO 250 MG TABLET GT (08:24)
[2023-10-26] MEDS: SODIUM CHLORIDE TAB 1,000 MG TABLET.SOL 1000 MG GT ×2 (08:25→20:13)
--- NOTE | 2023-10-26 15:07 | PC.SS ---
Room visit: Resident is laying in bed with head of the bed elevated with call light properly placed. Resident has trach in place on blow by with GT in place for medication and nutrition. Resident answers simple yes no questions with head nod, she has absence of speech. Resident daughter Homa Griffiths is decision maker. Resident will remain in current care and will continue to have all subacute care needs met by staff.
[2023-10-26] MEDS: SENNOSIDES 8.6 MG TABLET 17.2 MG GT (20:13)
[2023-10-26] MEDS: LOSARTAN 100 MG TABLET GT (20:13)
[2023-10-26] MEDS: MAGNESIUM HYDROXIDE 30 ML ORAL SUSP ML GT (20:15)
[2023-10-27] VITALS (7 sets, daily range): BP systolic 99–159; BP diastolic 63–85; PULSE 52–73; RESP 16–18; TEMP 35.9–36.3; O2SAT 97–98
[2023-10-27] MEDS: ESOMEPRAZOLE 40 MG GT (09:39)
[2023-10-27] MEDS: SOD PHOS DI, MONO/K PHOS MONO 250 MG TABLET GT (09:39)
[2023-10-27] MEDS: SODIUM CHLORIDE TAB 1,000 MG TABLET.SOL 1000 MG GT ×2 (09:39→21:00)
[2023-10-27] MEDS: MULTIVIT-MIN/IRON FUM/FOLIC AC 1 EACH TABLET GT (09:39)
[2023-10-27] MEDS: LOSARTAN 100 MG TABLET GT (20:59)
[2023-10-27] MEDS: SENNOSIDES 8.6 MG TABLET 17.2 MG GT (21:00)
[2023-10-28] VITALS (7 sets, daily range): BP systolic 108–142; BP diastolic 72–87; PULSE 53–65; RESP 16–18; TEMP 35.9–36.2; O2SAT 96–98
[2023-10-28] MEDS: SODIUM CHLORIDE TAB 1,000 MG TABLET.SOL 1000 MG GT ×2 (09:16→20:21)
[2023-10-28] MEDS: SOD PHOS DI, MONO/K PHOS MONO 250 MG TABLET GT (09:16)
[2023-10-28] MEDS: ESOMEPRAZOLE 40 MG GT (09:16)
[2023-10-28] MEDS: MULTIVIT-MIN/IRON FUM/FOLIC AC 1 EACH TABLET GT (09:16)
--- NOTE | 2023-10-28 16:21 | ESPR_ITS ---
Progress Note - SubAcute SUBJECTIVE Fever:: none GI:: none Shortness of Breath:: none GI:: no complaints Pain:: none OBJECTIVE Most recent vital signs: Last Vital Signs Temp 96.7 F L 10/28/23 12:00 Pulse 57 L 10/28/23 12:00 Resp 16 10/28/23 12:00 BP 109/75 10/28/23 12:00 Pulse Ox 98 10/28/23 06:10 O2 Del Method Blow-by 10/28/23 05:45 O2 Flow Rate 6 10/28/23 06:10 FiO2 28 10/28/23 06:10 Neurological:: alert Speech:: nods head, mouths words (sometimes) and appropriate Answers questions:: sometimes Respiratory:: shallow breathing Cardiovascular: RRR Abdomen: soft and nontender Extremities:: deformities Decubitus:: none Tracheostomy:: to blow by Feeding per:: G tube Complaints:: none ASSESSMENT & PLAN Assessment: 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 Plan: All treatment reviewed and continued.
[2023-10-28] MEDS: LOSARTAN 100 MG TABLET GT (20:20)
[2023-10-28] MEDS: SENNOSIDES 8.6 MG TABLET 17.2 MG GT (20:21)
[2023-10-29] VITALS (7 sets, daily range): BP systolic 104–139; BP diastolic 79–97; PULSE 50–72; RESP 16–18; TEMP 35.9–36.1; O2SAT 97–98
[2023-10-29] MEDS: ESOMEPRAZOLE 40 MG GT (08:29)
[2023-10-29] MEDS: SOD PHOS DI, MONO/K PHOS MONO 250 MG TABLET GT (08:30)
[2023-10-29] MEDS: MULTIVIT-MIN/IRON FUM/FOLIC AC 1 EACH TABLET GT (08:30)
[2023-10-29] MEDS: SODIUM CHLORIDE TAB 1,000 MG TABLET.SOL 1000 MG GT ×2 (08:30→20:37)
[2023-10-29] MEDS: LOSARTAN 100 MG TABLET GT (20:37)
[2023-10-29] MEDS: SENNOSIDES 8.6 MG TABLET 17.2 MG GT (20:37)
[2023-10-30] VITALS (8 sets, daily range): BP systolic 96–135; BP diastolic 65–80; PULSE 52–79; RESP 16–18; TEMP 36–36.3; O2SAT 96–99
--- NOTE | 2023-10-30 08:23 | CHAP ---
Patient was visited by a [facility] Spiritual Care volunteer on 10/28/2023 between [id number] and 1870 and received comfort, encouragement and/or prayer.
[2023-10-30] MEDS: SOD PHOS DI, MONO/K PHOS MONO 250 MG TABLET GT (08:49)
[2023-10-30] MEDS: ESOMEPRAZOLE 40 MG GT (08:49)
[2023-10-30] MEDS: MULTIVIT-MIN/IRON FUM/FOLIC AC 1 EACH TABLET GT (08:49)
[2023-10-30] MEDS: SODIUM CHLORIDE TAB 1,000 MG TABLET.SOL 1000 MG GT ×2 (08:50→20:51)
[2023-10-30] MEDS: SENNOSIDES 8.6 MG TABLET 17.2 MG GT (20:51)
[2023-10-30] MEDS: LOSARTAN 100 MG TABLET GT (20:51)
--- NOTE | 2023-10-30 21:47 | PD.SAPROG ---
Progress Note - SubAcute SUBJECTIVE Fever:: none GI:: none Shortness of Breath:: none GI:: no complaints Pain:: none OBJECTIVE Most recent vital signs: Last Vital Signs Temp 97.4 F 10/30/23 18:00 Pulse 79 10/30/23 20:51 Resp 18 10/30/23 18:12 BP 112/77 10/30/23 20:51 Pulse Ox 96 10/30/23 18:12 O2 Del Method Blow-by 10/30/23 18:00 O2 Flow Rate 6 10/30/23 18:12 FiO2 28 10/30/23 18:12 Neurological:: alert Speech:: nods head, mouths words (sometimes) and appropriate Answers questions:: sometimes Respiratory:: shallow breathing Cardiovascular: RRR Abdomen: soft and nontender Extremities:: deformities Decubitus:: none Tracheostomy:: to blow by Feeding per:: G tube Complaints:: none ASSESSMENT & PLAN Assessment: 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 No pain issues, and remains comfortable Plan: All treatment reviewed and continued.
[2023-10-31] VITALS (7 sets, daily range): BP systolic 97–127; BP diastolic 69–86; PULSE 63–86; RESP 16–18; TEMP 35.9–36.1; O2SAT 94–99
[2023-10-31] MEDS: SOD PHOS DI, MONO/K PHOS MONO 250 MG TABLET GT (08:00)
[2023-10-31] MEDS: MULTIVIT-MIN/IRON FUM/FOLIC AC 1 EACH TABLET GT (08:00)
[2023-10-31] MEDS: ESOMEPRAZOLE 40 MG GT (08:00)
[2023-10-31] MEDS: SODIUM CHLORIDE TAB 1,000 MG TABLET.SOL 1000 MG GT ×2 (08:00→21:01)
--- NOTE | 2023-10-31 17:15 | PC.NURSE ---
Resident received bed bath with trach care and wound care provided. Linens were all changed. No SOB noted and bed bath was tolerated well. HOB was elevated and bed was placed in lowest setting. Call light in reach. Will continue with current plan of care.
[2023-10-31] MEDS: LOSARTAN 100 MG TABLET GT (21:01)
[2023-10-31] MEDS: SENNOSIDES 8.6 MG TABLET 17.2 MG GT (21:01)
[2023-11-01] VITALS: BP 96/69; PULSE 56; RESP 18; TEMP 35.9
[2023-11-01 06:10] VITALS: PULSE 66; RESP 18; O2SAT 98
[2023-11-01] MEDS: SOD PHOS DI, MONO/K PHOS MONO 250 MG TABLET GT (08:10)
[2023-11-01] MEDS: MULTIVIT-MIN/IRON FUM/FOLIC AC 1 EACH TABLET GT (08:10)
[2023-11-01] MEDS: ESOMEPRAZOLE 40 MG GT (08:10)
[2023-11-01] MEDS: SODIUM CHLORIDE TAB 1,000 MG TABLET.SOL 1000 MG GT ×2 (08:10→21:15)
--- NOTE | 2023-11-01 11:13 | CHAP ---
Patient was visited by the Spiritual Care Volunteer who prayed for them. (Volunteer was in the hospital from 10:30-11:13)
[2023-11-01 11:39] VITALS: BP 139/79; PULSE 67; RESP 17; TEMP 35.9
[2023-11-01 18:00] VITALS: BP 143/83; PULSE 90; RESP 18; TEMP 36.1; O2SAT 92
[2023-11-01 19:53] VITALS: PULSE 112; RESP 18; RESP 20; O2SAT 89
[2023-11-01 21:15] VITALS: BP 129/72; PULSE 86
[2023-11-01] MEDS: LOSARTAN 100 MG TABLET GT (21:15)
[2023-11-01] MEDS: SENNOSIDES 8.6 MG TABLET 17.2 MG GT (21:15)
[2023-11-01] MEDS: MAGNESIUM HYDROXIDE 30 ML ORAL SUSP ML GT (21:16)
[2023-11-02] VITALS: BP 144/79; PULSE 84; RESP 16; TEMP 36.1
[2023-11-02 05:37] VITALS: BP 110/71; PULSE 59; RESP 16; TEMP 36.1; O2SAT 98
[2023-11-02 07:45] VITALS: PULSE 78; RESP 18; RESP 20; O2SAT 99
[2023-11-02] MEDS: SODIUM CHLORIDE TAB 1,000 MG TABLET.SOL 1000 MG GT ×2 (08:01→20:15)
[2023-11-02] MEDS: MULTIVIT-MIN/IRON FUM/FOLIC AC 1 EACH TABLET GT (08:01)
[2023-11-02] MEDS: SOD PHOS DI, MONO/K PHOS MONO 250 MG TABLET GT (08:01)
[2023-11-02] MEDS: ESOMEPRAZOLE 40 MG GT (08:01)
--- NOTE | 2023-11-02 10:45 | CHAP ---
Patient was visited by the Spiritual Care Volunteer who prayed for them, (Volunteer was in the hospital from 09:50-10:45).
[2023-11-02 12:00] VITALS: BP 112/70; PULSE 60; RESP 18; TEMP 35.4
--- NOTE | 2023-11-02 13:55 | PC.SS ---
Room visit: Resident is laying in bed with head of the bed elevated with call light properly placed with no signs of distress. Resident remains on blow by with trach in place and GT for medication and nutrition. Resident is unable to make needs known. She continues to have all subacute care needs met by staff. Resident is not showing any changes in mood or behavior. Will remain in current care as she is not ready for DC she will remain in current care and will be evaluated as appropriate for DC to lower level of care.
[2023-11-02 17:45] VITALS: BP 134/81; PULSE 55; RESP 18; TEMP 35.4; O2SAT 97
[2023-11-02 20:14] VITALS: BP 135/79; PULSE 55
[2023-11-02] MEDS: LOSARTAN 100 MG TABLET GT (20:14)
[2023-11-02] MEDS: SENNOSIDES 8.6 MG TABLET 17.2 MG GT (20:14)
[2023-11-03] VITALS (10 sets, daily range): BP systolic 95–147; BP diastolic 51–78; PULSE 45–84; RESP 16–21; TEMP 35.6–36.4; O2SAT 96–99
[2023-11-03] MEDS: SOD PHOS DI, MONO/K PHOS MONO 250 MG TABLET GT (09:04)
[2023-11-03] MEDS: ESOMEPRAZOLE 40 MG GT (09:04)
[2023-11-03] MEDS: SODIUM CHLORIDE TAB 1,000 MG TABLET.SOL 1000 MG GT ×2 (09:05→20:30)
[2023-11-03] MEDS: MULTIVIT-MIN/IRON FUM/FOLIC AC 1 EACH TABLET GT (09:05)
[2023-11-03] MEDS: SENNOSIDES 8.6 MG TABLET 17.2 MG GT (20:30)
--- NOTE | 2023-11-03 21:46 | PD.SAPROG ---
Progress Note - SubAcute SUBJECTIVE Fever:: none GI:: none Shortness of Breath:: none GI:: no complaints Pain:: none OBJECTIVE Most recent vital signs: Last Vital Signs Temp 96.0 F L 11/03/23 18:00 Pulse 51 L 11/03/23 20:29 Resp 16 11/03/23 18:00 BP 95/51 L 11/03/23 20:29 Pulse Ox 99 11/03/23 06:10 O2 Del Method Blow-by 11/02/23 17:45 O2 Flow Rate 6 11/03/23 06:10 FiO2 28 11/03/23 06:10 Neurological:: alert Speech:: nods head, mouths words (sometimes) and appropriate Answers questions:: sometimes Respiratory:: shallow breathing Cardiovascular: RRR Abdomen: soft and nontender Extremities:: deformities Decubitus:: none Tracheostomy:: to blow by Feeding per:: G tube Complaints:: none ASSESSMENT & PLAN Assessment: 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 No pain issues, and remains comfortable Plan: All treatment reviewed and continued.
[2023-11-04 06:00] VITALS: BP 118/72; PULSE 71; RESP 20; TEMP 36.2; O2SAT 97
[2023-11-04 06:10] VITALS: PULSE 75; RESP 18; O2SAT 98
[2023-11-04] MEDS: ESOMEPRAZOLE 40 MG GT (09:54)
[2023-11-04] MEDS: SOD PHOS DI, MONO/K PHOS MONO 250 MG TABLET GT (09:55)
[2023-11-04] MEDS: SODIUM CHLORIDE TAB 1,000 MG TABLET.SOL 1000 MG GT ×2 (09:55→20:12)
[2023-11-04] MEDS: MULTIVIT-MIN/IRON FUM/FOLIC AC 1 EACH TABLET GT (09:55)
[2023-11-04 12:00] VITALS: BP 128/84; PULSE 60; RESP 18; TEMP 36.1
[2023-11-04 18:00] VITALS: BP 124/72; PULSE 58; RESP 20; TEMP 36.1; O2SAT 97
[2023-11-04 20:12] VITALS: BP 161/74; PULSE 75
[2023-11-04] MEDS: SENNOSIDES 8.6 MG TABLET 17.2 MG GT (20:12)
[2023-11-04] MEDS: LOSARTAN 100 MG TABLET GT (20:12)
[2023-11-04 23:49] VITALS: PULSE 66; RESP 18; O2SAT 98
[2023-11-05] VITALS (10 sets, daily range): BP systolic 105–165; BP diastolic 61–89; PULSE 57–69; RESP 16–20; TEMP 35.9–36.7; O2SAT 59–98
[2023-11-05] MEDS: SODIUM CHLORIDE TAB 1,000 MG TABLET.SOL 1000 MG GT ×2 (09:15→21:03)
[2023-11-05] MEDS: MULTIVIT-MIN/IRON FUM/FOLIC AC 1 EACH TABLET GT (09:15)
[2023-11-05] MEDS: SOD PHOS DI, MONO/K PHOS MONO 250 MG TABLET GT (09:15)
[2023-11-05] MEDS: ESOMEPRAZOLE 40 MG GT (09:15)
[2023-11-05] MEDS: LOSARTAN 100 MG TABLET GT (21:03)
[2023-11-05] MEDS: SENNOSIDES 8.6 MG TABLET 17.2 MG GT (21:03)
[2023-11-06] VITALS (7 sets, daily range): BP systolic 106–168; BP diastolic 70–86; PULSE 52–66; RESP 16–19; TEMP 36.1–36.4; O2SAT 95–99
[2023-11-06] MEDS: MULTIVIT-MIN/IRON FUM/FOLIC AC 1 EACH TABLET GT (09:30)
[2023-11-06] MEDS: ESOMEPRAZOLE 40 MG GT (09:30)
[2023-11-06] MEDS: SODIUM CHLORIDE TAB 1,000 MG TABLET.SOL 1000 MG GT ×2 (09:30→20:57)
[2023-11-06] MEDS: SOD PHOS DI, MONO/K PHOS MONO 250 MG TABLET GT (09:30)
--- NOTE | 2023-11-06 15:19 | PC.NURSE ---
Addendum entered by Sol Caldwell RN 11/06/23 15:22: No ST eval order received at this time. Original Note: Report received that resident requesting for water. Evaluated by Dr Gonsalez, ice chips given and tolerated well, no coughing noted. Order received from Dr Gonsalez to give ice chips PRN
[2023-11-06] MEDS: LOSARTAN 100 MG TABLET GT (20:53)
[2023-11-06] MEDS: SENNOSIDES 8.6 MG TABLET 17.2 MG GT (20:57)
[2023-11-07] VITALS (7 sets, daily range): BP systolic 105–155; BP diastolic 69–88; PULSE 51–63; RESP 16–18; TEMP 36.1–36.4; O2SAT 96–99
[2023-11-07] MEDS: ESOMEPRAZOLE 40 MG GT (09:34)
[2023-11-07] MEDS: MULTIVIT-MIN/IRON FUM/FOLIC AC 1 EACH TABLET GT (09:35)
[2023-11-07] MEDS: SODIUM CHLORIDE TAB 1,000 MG TABLET.SOL 1000 MG GT ×2 (09:35→20:35)
[2023-11-07] MEDS: SOD PHOS DI, MONO/K PHOS MONO 250 MG TABLET GT (09:35)
[2023-11-07] MEDS: LOSARTAN 100 MG TABLET GT (20:35)
[2023-11-07] MEDS: SENNOSIDES 8.6 MG TABLET 17.2 MG GT (20:35)
--- NOTE | 2023-11-07 22:31 | ESPR_ITS ---
Progress Note - SubAcute SUBJECTIVE Fever:: none GI:: none Shortness of Breath:: none GI:: no complaints Pain:: none OBJECTIVE Most recent vital signs: Last Vital Signs Temp 97.6 F 11/07/23 12:00 Pulse 55 L 11/07/23 20:35 Resp 16 11/07/23 18:10 BP 155/88 H 11/07/23 20:35 Pulse Ox 96 11/07/23 18:10 O2 Del Method Blow-by 11/07/23 05:30 O2 Flow Rate 6 11/07/23 18:10 FiO2 28 11/07/23 18:10 Neurological:: alert Speech:: nods head, mouths words (sometimes) and appropriate Answers questions:: sometimes Respiratory:: shallow breathing Cardiovascular: RRR Abdomen: soft and nontender Extremities:: deformities Decubitus:: none Tracheostomy:: to blow by Feeding per:: G tube Complaints:: none ASSESSMENT & PLAN Assessment: 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 No pain issues, and remains comfortable. Ice chips for some oral gratification tried with success without any cough or aspiration Plan: All treatment reviewed and continued.
[2023-11-08] VITALS (7 sets, daily range): BP systolic 121–163; BP diastolic 76–90; PULSE 55–67; RESP 16–18; TEMP 35.9–36.1; O2SAT 93–97
[2023-11-08] MEDS: ESOMEPRAZOLE 40 MG GT (10:29)
[2023-11-08] MEDS: SOD PHOS DI, MONO/K PHOS MONO 250 MG TABLET GT (10:30)
[2023-11-08] MEDS: MULTIVIT-MIN/IRON FUM/FOLIC AC 1 EACH TABLET GT (10:30)
[2023-11-08] MEDS: SODIUM CHLORIDE TAB 1,000 MG TABLET.SOL 1000 MG GT ×2 (10:31→20:41)
[2023-11-08] MEDS: LOSARTAN 100 MG TABLET GT (20:40)
[2023-11-08] MEDS: SENNOSIDES 8.6 MG TABLET 17.2 MG GT (20:40)
[2023-11-09] VITALS (7 sets, daily range): BP systolic 130–159; BP diastolic 75–83; PULSE 53–81; RESP 16–18; TEMP 36.1–36.3; O2SAT 96–99
[2023-11-09] MEDS: SOD PHOS DI, MONO/K PHOS MONO 250 MG TABLET GT (08:01)
[2023-11-09] MEDS: SODIUM CHLORIDE TAB 1,000 MG TABLET.SOL 1000 MG GT ×2 (08:01→20:28)
[2023-11-09] MEDS: MULTIVIT-MIN/IRON FUM/FOLIC AC 1 EACH TABLET GT (08:01)
[2023-11-09] MEDS: ESOMEPRAZOLE 40 MG GT (08:01)
--- NOTE | 2023-11-09 14:21 | PC.SS ---
Room visit: Resident is laying in bed with head of the bed elevated with call light properly placed with no signs of distress. Resident remains on blow by with trach in place and GT for medication and nutrition. Resident is able to answer simple yes/no questions with head nod, her decision maker is her daughter Homa Griffiths. Resident will remain in current care and will continue to have all subacute care needs met by staff.
--- NOTE | 2023-11-09 17:44 | PC.NURSE ---
CNAs went to resident's room to do their rounds at around 15:00 and noticed that resident's trach was out. No s/s of respiratory distress noted. RN inserted a new trach without difficulty, no bleeding noted. Resident tolerated the procedure. Denies any pain or discomfort. Dr Gonsalez notified, no new orders made.
[2023-11-09] MEDS: LOSARTAN 100 MG TABLET GT (20:27)
[2023-11-09] MEDS: SENNOSIDES 8.6 MG TABLET 17.2 MG GT (20:28)
[2023-11-10] VITALS (7 sets, daily range): BP systolic 126–147; BP diastolic 75–85; PULSE 58–70; RESP 16–20; TEMP 35.8–36.2; O2SAT 96–97
[2023-11-10] MEDS: MULTIVIT-MIN/IRON FUM/FOLIC AC 1 EACH TABLET GT (09:40)
[2023-11-10] MEDS: SOD PHOS DI, MONO/K PHOS MONO 250 MG TABLET GT (09:40)
[2023-11-10] MEDS: ESOMEPRAZOLE 40 MG GT (09:40)
[2023-11-10] MEDS: SODIUM CHLORIDE TAB 1,000 MG TABLET.SOL 1000 MG GT ×2 (09:41→21:14)
[2023-11-10] MEDS: LOSARTAN 100 MG TABLET GT (21:10)
[2023-11-10] MEDS: SENNOSIDES 8.6 MG TABLET 17.2 MG GT (21:11)
[2023-11-11] VITALS: BP 125/71; PULSE 58; RESP 17; TEMP 36.1
[2023-11-11 06:00] VITALS: BP 138/77; PULSE 66; PULSE 68; RESP 18; RESP 19; TEMP 36; O2SAT 97
[2023-11-11] MEDS: MULTIVIT-MIN/IRON FUM/FOLIC AC 1 EACH TABLET GT (08:43)
[2023-11-11] MEDS: SOD PHOS DI, MONO/K PHOS MONO 250 MG TABLET GT (08:43)
[2023-11-11] MEDS: SODIUM CHLORIDE TAB 1,000 MG TABLET.SOL 1000 MG GT ×2 (08:43→20:30)
[2023-11-11] MEDS: ESOMEPRAZOLE 40 MG GT (08:43)
[2023-11-11 12:00] VITALS: BP 145/85; PULSE 92; RESP 18; TEMP 35.9
--- NOTE | 2023-11-11 14:00 | ESPR_ITS ---
Progress Note - SubAcute SUBJECTIVE Fever:: none GI:: none Shortness of Breath:: none GI:: no complaints Pain:: none OBJECTIVE Most recent vital signs: Last Vital Signs Temp 97.3 F 11/15/23 12:00 Pulse 76 11/15/23 12:00 Resp 24 H 11/15/23 12:00 BP 106/70 11/15/23 12:00 Pulse Ox 95 11/15/23 06:50 O2 Del Method Blow-by 11/14/23 17:20 O2 Flow Rate 6 11/15/23 06:50 FiO2 28 11/15/23 06:50 Neurological:: alert Speech:: nods head, mouths words (sometimes) and appropriate Answers questions:: sometimes Respiratory:: shallow breathing Cardiovascular: RRR Abdomen: soft and nontender Extremities:: deformities Decubitus:: none Tracheostomy:: to blow by Feeding per:: G tube Complaints:: none ASSESSMENT & PLAN Assessment: 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 No pain issues, and remains comfortable. Ice chips for some oral gratification tried with success without any cough or aspiration Plan: All treatment reviewed and continued.
[2023-11-11 18:00] VITALS: BP 121/79; PULSE 93; RESP 18; TEMP 36.6; O2SAT 96
[2023-11-11 18:10] VITALS: PULSE 85; RESP 18; O2SAT 96
[2023-11-11 20:30] VITALS: BP 112/84; PULSE 102
[2023-11-11] MEDS: SENNOSIDES 8.6 MG TABLET 17.2 MG GT (20:30)
[2023-11-11] MEDS: LOSARTAN 100 MG TABLET GT (20:30)
[2023-11-12] VITALS (7 sets, daily range): BP systolic 90–124; BP diastolic 67–90; PULSE 67–102; RESP 16–19; TEMP 35.7–36.3; O2SAT 87–98
[2023-11-12] MEDS: SODIUM CHLORIDE TAB 1,000 MG TABLET.SOL 1000 MG GT ×2 (08:27→20:49)
[2023-11-12] MEDS: ESOMEPRAZOLE 40 MG GT (08:27)
[2023-11-12] MEDS: MULTIVIT-MIN/IRON FUM/FOLIC AC 1 EACH TABLET GT (08:27)
[2023-11-12] MEDS: SOD PHOS DI, MONO/K PHOS MONO 250 MG TABLET GT (08:27)
[2023-11-12] MEDS: LOSARTAN 100 MG TABLET GT (20:48)
[2023-11-12] MEDS: SENNOSIDES 8.6 MG TABLET 17.2 MG GT (20:48)
[2023-11-13] VITALS: BP 105/69; PULSE 85; RESP 18; TEMP 36.1
[2023-11-13 06:00] VITALS: BP 141/79; PULSE 94; RESP 20; TEMP 36.4; O2SAT 98
[2023-11-13 07:10] VITALS: PULSE 78; RESP 17; O2SAT 95
[2023-11-13] MEDS: MULTIVIT-MIN/IRON FUM/FOLIC AC 1 EACH TABLET GT (08:15)
[2023-11-13] MEDS: SOD PHOS DI, MONO/K PHOS MONO 250 MG TABLET GT (08:15)
[2023-11-13] MEDS: SODIUM CHLORIDE TAB 1,000 MG TABLET.SOL 1000 MG GT ×2 (08:15→22:41)
[2023-11-13] MEDS: ESOMEPRAZOLE 40 MG GT (08:15)
[2023-11-13 19:19] VITALS: PULSE 111; RESP 18; RESP 20; O2SAT 96
[2023-11-13 22:35] VITALS: BP 107/63; PULSE 111
[2023-11-13] MEDS: SENNOSIDES 8.6 MG TABLET 17.2 MG GT (22:41)
[2023-11-14] VITALS (8 sets, daily range): BP systolic 98–128; BP diastolic 60–77; PULSE 3–116; RESP 17–22; TEMP 36.1–38; O2SAT 92–97
[2023-11-14] MEDS: SOD PHOS DI, MONO/K PHOS MONO 250 MG TABLET GT (09:41)
[2023-11-14] MEDS: ESOMEPRAZOLE 40 MG GT (09:41)
[2023-11-14] MEDS: SODIUM CHLORIDE TAB 1,000 MG TABLET.SOL 1000 MG GT ×2 (09:42→21:00)
--- NOTE | 2023-11-14 12:04 | PC.NURSE ---
Episode of increased respiratory rate 34BPM, disaturation noted 84%. RT at bed side increased FIO2 to 45%. Suctioned as needed. resident gradually doing better. Temperature 100.4 with increased HR. Will continue to monitor will recheck temperature. x1 hour.
[2023-11-14] MEDS: ACETAMINOPHEN 325 MG TABLET 650 MG GT (12:16)
[2023-11-14] MEDS: SENNOSIDES 8.6 MG TABLET 17.2 MG GT (21:00)
[2023-11-14] MEDS: LOSARTAN 100 MG TABLET GT (21:00)
[2023-11-15] VITALS: BP 109/68; PULSE 77; RESP 17; TEMP 36.1
--- NOTE | 2023-11-15 04:58 | PC.RT ---
RT BOOK SHOWS TRACH NEEDED ROUTINE CHANGE 11/14/23. TRACH WAS JUST RECENTLY CHANGED ON 11/09/23. BOOK UPDATED. LEAD WILMA KEY.
[2023-11-15 06:50] VITALS: PULSE 79; RESP 18; O2SAT 95
[2023-11-15] MEDS: ACETAMINOPHEN 325 MG TABLET 650 MG GT (08:24)
[2023-11-15] MEDS: MULTIVIT-MIN/IRON FUM/FOLIC AC 1 EACH TABLET GT (08:25)
[2023-11-15] MEDS: SOD PHOS DI, MONO/K PHOS MONO 250 MG TABLET GT (08:25)
[2023-11-15] MEDS: ESOMEPRAZOLE 40 MG GT (08:25)
[2023-11-15] MEDS: SODIUM CHLORIDE TAB 1,000 MG TABLET.SOL 1000 MG GT ×2 (08:25→20:27)
[2023-11-15 12:00] VITALS: BP 106/70; PULSE 76; RESP 24; TEMP 36.3
--- NOTE | 2023-11-15 17:31 | PD.SAPROG ---
Progress Note - SubAcute SUBJECTIVE Fever:: none GI:: none Shortness of Breath:: none GI:: no complaints Pain:: none OBJECTIVE Most recent vital signs: Last Vital Signs Temp 97.3 F 11/15/23 12:00 Pulse 76 11/15/23 12:00 Resp 24 H 11/15/23 12:00 BP 106/70 11/15/23 12:00 Pulse Ox 95 11/15/23 06:50 O2 Del Method Blow-by 11/14/23 17:20 O2 Flow Rate 6 11/15/23 06:50 FiO2 28 11/15/23 06:50 Neurological:: alert Speech:: nods head, mouths words (sometimes) and appropriate Answers questions:: sometimes Respiratory:: shallow breathing Cardiovascular: RRR Abdomen: soft and nontender Extremities:: deformities Decubitus:: none Tracheostomy:: to blow by Feeding per:: G tube Complaints:: none ASSESSMENT & PLAN Assessment: 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 No pain issues, and remains comfortable. Ice chips for some oral gratification tried with success without any cough or aspiration Plan: All treatment reviewed and continued.
[2023-11-15 18:00] VITALS: BP 108/77; PULSE 85; RESP 24; TEMP 36.3; O2SAT 98
[2023-11-15 19:05] VITALS: PULSE 88; RESP 18; O2SAT 96
[2023-11-15 20:25] VITALS: BP 124/76; PULSE 73
[2023-11-15] MEDS: LOSARTAN 100 MG TABLET GT (20:25)
[2023-11-15] MEDS: SENNOSIDES 8.6 MG TABLET 17.2 MG GT (20:25)
[2023-11-16] VITALS: BP 127/67; PULSE 80; RESP 24; TEMP 36.2
[2023-11-16 07:18] VITALS: PULSE 79; PULSE 82; RESP 18; RESP 20; O2SAT 96
[2023-11-16] MEDS: IPRATROPIUM BROMIDE 200 PUFF/INH INHALER INH (07:18)
[2023-11-16] MEDS: ALBUTEROL INHALER 200 PUFF/INH INHALER INH (07:18)
[2023-11-16] MEDS: MULTIVIT-MIN/IRON FUM/FOLIC AC 1 EACH TABLET GT (08:18)
[2023-11-16] MEDS: SODIUM CHLORIDE TAB 1,000 MG TABLET.SOL 1000 MG GT ×2 (08:18→20:10)
[2023-11-16] MEDS: ESOMEPRAZOLE 40 MG GT (08:18)
[2023-11-16] MEDS: SOD PHOS DI, MONO/K PHOS MONO 250 MG TABLET GT (08:18)
[2023-11-16 12:00] VITALS: BP 131/74; PULSE 103; RESP 18; TEMP 36.5; O2SAT 96
[2023-11-16 18:00] VITALS: BP 104/83; PULSE 58; RESP 18; TEMP 36.4; O2SAT 98
[2023-11-16 18:15] VITALS: PULSE 82; RESP 18; O2SAT 97
[2023-11-16 20:09] VITALS: BP 132/74; PULSE 97
[2023-11-16] MEDS: LOSARTAN 100 MG TABLET GT (20:09)
[2023-11-16] MEDS: SENNOSIDES 8.6 MG TABLET 17.2 MG GT (20:10)
[2023-11-17] VITALS (7 sets, daily range): BP systolic 109–135; BP diastolic 74–83; PULSE 62–100; RESP 14–22; TEMP 36.1–36.4; O2SAT 95–99
[2023-11-17] MEDS: MULTIVIT-MIN/IRON FUM/FOLIC AC 1 EACH TABLET GT (08:10)
[2023-11-17] MEDS: SOD PHOS DI, MONO/K PHOS MONO 250 MG TABLET GT (08:10)
[2023-11-17] MEDS: SODIUM CHLORIDE TAB 1,000 MG TABLET.SOL 1000 MG GT ×2 (08:10→21:00)
[2023-11-17] MEDS: ESOMEPRAZOLE 40 MG GT (08:10)
[2023-11-17] MEDS: SENNOSIDES 8.6 MG TABLET 17.2 MG GT (20:27)
[2023-11-17] MEDS: LOSARTAN 100 MG TABLET GT (20:27)
[2023-11-18] VITALS (8 sets, daily range): BP systolic 98–134; BP diastolic 63–82; PULSE 83–97; RESP 17–19; TEMP 36.1–36.4; O2SAT 97–99
[2023-11-18] MEDS: SOD PHOS DI, MONO/K PHOS MONO 250 MG TABLET GT (08:46)
[2023-11-18] MEDS: MULTIVIT-MIN/IRON FUM/FOLIC AC 1 EACH TABLET GT (08:46)
[2023-11-18] MEDS: ESOMEPRAZOLE 40 MG GT (08:46)
[2023-11-18] MEDS: SODIUM CHLORIDE TAB 1,000 MG TABLET.SOL 1000 MG GT ×2 (08:47→20:25)
[2023-11-18] MEDS: LOSARTAN 100 MG TABLET GT (20:24)
[2023-11-18] MEDS: SENNOSIDES 8.6 MG TABLET 17.2 MG GT (20:25)
[2023-11-19] VITALS (8 sets, daily range): BP systolic 95–136; BP diastolic 57–78; PULSE 65–99; RESP 16–24; TEMP 36.1–36.4; O2SAT 97–99
--- NOTE | 2023-11-19 07:06 | PD.SAHP ---
Physical exam Physical Exam Vital signs: Temp Pulse Resp BP Pulse Ox O2 Del Method O2 Flow Rate 97.0 F 88 24 H 95/76 98 Blow-by 10 11/19/23 06:00 11/19/23 06:00 11/19/23 06:00 11/19/23 06:00 11/19/23 06:00 11/19/23 06:00 11/18/23 19:58 FiO2 35 11/18/23 19:58 Narrative: pr awake , alert responds to simple commands, comfortable, bed bound, dependent for care. Constitutional Constitutional: no acute distress HEENT Exam Head: Present normocephalic Eye: Present PERRL ENT: Present mucous membranes moist, nares patent and external ear normal Neck Exam Neck: Present supple Chest/Breast/Axilla Exam Comments: NAD Respiratory Exam Respiratory: Present chest non-tender, lungs clear, normal breath sounds and no resp distress Cardiovascular Exam Cardiovascular: Present RRR, S1 and S2 Abdominal Exam Abdominal: Present soft and normoactive bowel sounds Rectal Exam Patient deferred: visual exam and digital exam Exam Comments: NAD Extremities Exam Comments: NO clubbing cyanosis or edema Back/Spine/Pelvis Exam Comments: NAD Skin Exam Skin: Present intact Neurological Exam Neurological: Present alert and moving all extremities Comments: Oriented in person only, not time or place. responds to simple questions appropreatly sometimes.Not cognizant of her condition. 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 No pain issues, and remains comfortable. Ice chips for some oral gratification tried with success without any cough or aspiration Plan: All treatment reviewed and continued. Prognosis Prognosis: prognosis for independent living is- unlikely If patient not informed of condion, describe why: pt not cognizant of her condition and family kept informed and updated in regards to her health Goals Full support HPI History of Present Illness HPI: This is an updated H & P for the patient. 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 She has a Tracheostomy in place for Chronic respiratory failure and hypoxia; Feeding G tube for dysphagia; Seizures; GERD; HTN; Persistent hyponatremia
[2023-11-19] MEDS: MULTIVIT-MIN/IRON FUM/FOLIC AC 1 EACH TABLET GT (08:40)
[2023-11-19] MEDS: SOD PHOS DI, MONO/K PHOS MONO 250 MG TABLET GT (08:40)
[2023-11-19] MEDS: SODIUM CHLORIDE TAB 1,000 MG TABLET.SOL 1000 MG GT ×2 (08:40→20:16)
[2023-11-19] MEDS: ESOMEPRAZOLE 40 MG GT (08:40)
[2023-11-19] MEDS: LOSARTAN 100 MG TABLET GT (20:16)
[2023-11-19] MEDS: SENNOSIDES 8.6 MG TABLET 17.2 MG GT (20:16)
--- NOTE | 2023-11-19 22:20 | PD.SAPROG ---
Progress Note - SubAcute SUBJECTIVE Fever:: none GI:: none Shortness of Breath:: none GI:: no complaints Pain:: none OBJECTIVE Most recent vital signs: Last Vital Signs Temp 97.6 F 11/19/23 17:59 Pulse 96 11/19/23 20:16 Resp 19 11/19/23 17:59 BP 124/71 11/19/23 20:16 Pulse Ox 99 11/19/23 12:00 O2 Del Method Blow-by 11/19/23 06:00 O2 Flow Rate 10 11/19/23 06:10 FiO2 35 11/19/23 06:10 Neurological:: alert Speech:: nods head, mouths words (sometimes) and appropriate Answers questions:: sometimes Respiratory:: shallow breathing Cardiovascular: RRR Abdomen: soft and nontender Extremities:: deformities Decubitus:: none Tracheostomy:: to blow by Feeding per:: G tube Complaints:: none ASSESSMENT & PLAN Assessment: 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 No pain issues, and remains comfortable. Ice chips for some oral gratification tried with success without any cough or aspiration Plan: All treatment reviewed and continued.
[2023-11-20 06:00] VITALS: BP 128/71; PULSE 99; RESP 21; TEMP 36.4
[2023-11-20 07:32] VITALS: PULSE 98; RESP 22; O2SAT 93
[2023-11-20] MEDS: MULTIVIT-MIN/IRON FUM/FOLIC AC 1 EACH TABLET GT (08:08)
[2023-11-20] MEDS: ESOMEPRAZOLE 40 MG GT (08:08)
[2023-11-20] MEDS: SOD PHOS DI, MONO/K PHOS MONO 250 MG TABLET GT (08:09)
[2023-11-20] MEDS: SODIUM CHLORIDE TAB 1,000 MG TABLET.SOL 1000 MG GT ×2 (08:09→20:14)
[2023-11-20 17:40] VITALS: BP 95/67; PULSE 82; RESP 20; TEMP 36.5
[2023-11-20 19:50] VITALS: PULSE 82; RESP 20; O2SAT 95
[2023-11-20 20:13] VITALS: BP 132/82; PULSE 98
[2023-11-20] MEDS: LOSARTAN 100 MG TABLET GT (20:13)
[2023-11-20] MEDS: SENNOSIDES 8.6 MG TABLET 17.2 MG GT (20:14)
[2023-11-21] VITALS (7 sets, daily range): BP systolic 105–142; BP diastolic 73–84; PULSE 65–84; RESP 18–20; TEMP 36.2–36.4; O2SAT 94–99
[2023-11-21] MEDS: MULTIVIT-MIN/IRON FUM/FOLIC AC 1 EACH TABLET GT (08:51)
[2023-11-21] MEDS: SODIUM CHLORIDE TAB 1,000 MG TABLET.SOL 1000 MG GT ×2 (08:51→20:13)
[2023-11-21] MEDS: SOD PHOS DI, MONO/K PHOS MONO 250 MG TABLET GT (08:51)
[2023-11-21] MEDS: ESOMEPRAZOLE 40 MG GT (08:51)
[2023-11-21] MEDS: SENNOSIDES 8.6 MG TABLET 17.2 MG GT (20:13)
[2023-11-21] MEDS: LOSARTAN 100 MG TABLET GT (20:13)
[2023-11-22] VITALS: BP 145/88; PULSE 74; RESP 22; TEMP 36.3
[2023-11-22 06:00] VITALS: BP 108/86; PULSE 80; RESP 22; TEMP 36.1; O2SAT 95
[2023-11-22] MEDS: SOD PHOS DI, MONO/K PHOS MONO 250 MG TABLET GT (08:03)
[2023-11-22] MEDS: SODIUM CHLORIDE TAB 1,000 MG TABLET.SOL 1000 MG GT ×2 (08:03→20:09)
[2023-11-22] MEDS: MULTIVIT-MIN/IRON FUM/FOLIC AC 1 EACH TABLET GT (08:03)
[2023-11-22] MEDS: ESOMEPRAZOLE 40 MG GT (08:03)
[2023-11-22 11:35] VITALS: BP 140/77; PULSE 65; RESP 20; TEMP 36.4; O2SAT 98
[2023-11-22 17:58] VITALS: BP 136/87; PULSE 98; RESP 23; TEMP 36.3
[2023-11-22 19:55] VITALS: PULSE 66; RESP 18; O2SAT 96
[2023-11-22 20:08] VITALS: BP 138/82; PULSE 75
[2023-11-22] MEDS: SENNOSIDES 8.6 MG TABLET 17.2 MG GT (20:08)
[2023-11-22] MEDS: LOSARTAN 100 MG TABLET GT (20:08)
[2023-11-23] VITALS: BP 128/68; PULSE 73; RESP 22; TEMP 36.1
[2023-11-23 06:00] VITALS: BP 136/84; PULSE 77; PULSE 94; RESP 18; RESP 22; TEMP 36.1; O2SAT 77; O2SAT 94; O2SAT 95
[2023-11-23] MEDS: ESOMEPRAZOLE 40 MG GT (08:00)
[2023-11-23] MEDS: SOD PHOS DI, MONO/K PHOS MONO 250 MG TABLET GT (08:00)
[2023-11-23] MEDS: MAGNESIUM HYDROXIDE 30 ML ORAL SUSP ML GT (08:00)
[2023-11-23] MEDS: SODIUM CHLORIDE TAB 1,000 MG TABLET.SOL 1000 MG GT ×2 (08:00→20:19)
[2023-11-23] MEDS: MULTIVIT-MIN/IRON FUM/FOLIC AC 1 EACH TABLET GT (08:00)
[2023-11-23 12:00] VITALS: BP 126/82; PULSE 74; RESP 20; TEMP 36.2; O2SAT 98
--- NOTE | 2023-11-23 13:55 | ESPR_ITS ---
Progress Note - SubAcute SUBJECTIVE Fever:: none GI:: none Shortness of Breath:: none GI:: no complaints Pain:: none OBJECTIVE Most recent vital signs: Last Vital Signs Temp 97.5 F 11/25/23 06:00 Pulse 77 11/25/23 06:55 Resp 20 11/25/23 06:55 BP 115/81 11/25/23 06:00 Pulse Ox 96 11/25/23 06:55 O2 Del Method Blow-by 11/25/23 06:00 O2 Flow Rate 6 11/25/23 06:55 FiO2 28 11/25/23 06:55 Neurological:: alert Speech:: nods head, mouths words (sometimes) and appropriate Answers questions:: sometimes Respiratory:: shallow breathing Cardiovascular: RRR Abdomen: soft and nontender Extremities:: deformities Decubitus:: none Tracheostomy:: to blow by Feeding per:: G tube Complaints:: none ASSESSMENT & PLAN Assessment: 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 No pain issues, and remains comfortable. Ice chips for some oral gratification tried with success without any cough or aspiration Plan: All treatment reviewed and continued.
[2023-11-23 17:25] VITALS: BP 127/83; PULSE 75; RESP 19; TEMP 36.1
[2023-11-23 20:01] VITALS: PULSE 80; RESP 16; O2SAT 98
[2023-11-23 20:19] VITALS: BP 159/88; PULSE 77
[2023-11-23] MEDS: SENNOSIDES 8.6 MG TABLET 17.2 MG GT (20:19)
[2023-11-23] MEDS: LOSARTAN 100 MG TABLET GT (20:19)
[2023-11-24] VITALS (8 sets, daily range): BP systolic 129–167; BP diastolic 72–89; PULSE 63–88; RESP 16–22; TEMP 36.1–36.3; O2SAT 95–98
[2023-11-24] MEDS: ESOMEPRAZOLE 40 MG GT (09:00)
[2023-11-24] MEDS: SODIUM CHLORIDE TAB 1,000 MG TABLET.SOL 1000 MG GT ×2 (09:00→20:25)
[2023-11-24] MEDS: SOD PHOS DI, MONO/K PHOS MONO 250 MG TABLET GT (09:00)
[2023-11-24] MEDS: MULTIVIT-MIN/IRON FUM/FOLIC AC 1 EACH TABLET GT (09:00)
[2023-11-24] MEDS: LOSARTAN 100 MG TABLET GT (20:25)
[2023-11-24] MEDS: SENNOSIDES 8.6 MG TABLET 17.2 MG GT (20:25)
[2023-11-25 06:00] VITALS: BP 115/81; PULSE 75; RESP 20; TEMP 36.4; O2SAT 96
[2023-11-25 06:55] VITALS: PULSE 77; RESP 20; O2SAT 96; O2SAT 98
[2023-11-25] MEDS: ESOMEPRAZOLE 40 MG GT (08:04)
[2023-11-25] MEDS: SODIUM CHLORIDE TAB 1,000 MG TABLET.SOL 1000 MG GT ×2 (08:04→20:20)
[2023-11-25] MEDS: SOD PHOS DI, MONO/K PHOS MONO 250 MG TABLET GT (08:04)
[2023-11-25] MEDS: MULTIVIT-MIN/IRON FUM/FOLIC AC 1 EACH TABLET GT (08:04)
[2023-11-25 12:00] VITALS: BP 115/81; PULSE 88; RESP 18; TEMP 35.9
[2023-11-25 18:00] VITALS: BP 157/91; PULSE 75; RESP 18; TEMP 36.1; O2SAT 98
[2023-11-25 19:56] VITALS: PULSE 70; RESP 18; O2SAT 98
[2023-11-25 20:20] VITALS: BP 120/90; PULSE 79
[2023-11-25] MEDS: SENNOSIDES 8.6 MG TABLET 17.2 MG GT (20:20)
[2023-11-25] MEDS: LOSARTAN 100 MG TABLET GT (20:20)
[2023-11-26] VITALS (7 sets, daily range): BP systolic 104–149; BP diastolic 59–82; PULSE 69–83; RESP 16–18; TEMP 36.1–36.8; O2SAT 96–98
[2023-11-26] MEDS: SODIUM CHLORIDE TAB 1,000 MG TABLET.SOL 1000 MG GT ×2 (08:05→20:22)
[2023-11-26] MEDS: ESOMEPRAZOLE 40 MG GT (08:05)
[2023-11-26] MEDS: SOD PHOS DI, MONO/K PHOS MONO 250 MG TABLET GT (08:05)
[2023-11-26] MEDS: SENNOSIDES 8.6 MG TABLET 17.2 MG GT (20:21)
[2023-11-26] MEDS: LOSARTAN 100 MG TABLET GT (20:21)
[2023-11-27] VITALS (8 sets, daily range): BP systolic 102–119; BP diastolic 71–83; PULSE 67–81; RESP 18–22; TEMP 36.1–36.5; O2SAT 95–99
[2023-11-27] MEDS: SODIUM CHLORIDE TAB 1,000 MG TABLET.SOL 1000 MG GT ×2 (09:20→21:00)
[2023-11-27] MEDS: ESOMEPRAZOLE 40 MG GT (09:20)
[2023-11-27] MEDS: SOD PHOS DI, MONO/K PHOS MONO 250 MG TABLET GT (09:20)
--- NOTE | 2023-11-27 13:25 | PD.SAPROG ---
Progress Note - SubAcute SUBJECTIVE Fever:: none GI:: none Shortness of Breath:: none GI:: no complaints Pain:: none OBJECTIVE Most recent vital signs: Last Vital Signs Temp 97.5 F 11/28/23 17:44 Pulse 62 11/28/23 20:16 Resp 20 11/28/23 17:44 BP 138/77 H 11/28/23 20:16 Pulse Ox 99 11/28/23 12:00 O2 Del Method Blow-by 11/27/23 06:00 O2 Flow Rate 6 11/28/23 06:30 FiO2 28 11/28/23 06:30 Neurological:: alert Speech:: nods head, mouths words (sometimes) and appropriate Answers questions:: sometimes Respiratory:: shallow breathing Cardiovascular: RRR Abdomen: soft and nontender Extremities:: deformities Decubitus:: none Tracheostomy:: to blow by Feeding per:: G tube Complaints:: none ASSESSMENT & PLAN Assessment: 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 No pain issues, and remains comfortable. Ice chips for some oral gratification tried with success without any cough or aspiration Plan: All treatment reviewed and continued.
[2023-11-27] MEDS: LOSARTAN 100 MG TABLET GT (20:19)
[2023-11-27] MEDS: SENNOSIDES 8.6 MG TABLET 17.2 MG GT (20:19)
[2023-11-28] VITALS (7 sets, daily range): BP systolic 104–156; BP diastolic 69–82; PULSE 57–76; RESP 16–21; TEMP 36.1–36.4; O2SAT 97–99
[2023-11-28] MEDS: SODIUM CHLORIDE TAB 1,000 MG TABLET.SOL 1000 MG GT ×2 (09:00→20:16)
[2023-11-28] MEDS: SOD PHOS DI, MONO/K PHOS MONO 250 MG TABLET GT (09:00)
[2023-11-28] MEDS: ESOMEPRAZOLE 40 MG GT (09:00)
[2023-11-28] MEDS: MULTIVIT-MIN/IRON FUM/FOLIC AC 1 EACH TABLET GT (09:00)
[2023-11-28] MEDS: SENNOSIDES 8.6 MG TABLET 17.2 MG GT (20:16)
[2023-11-28] MEDS: LOSARTAN 100 MG TABLET GT (20:16)
[2023-11-29] VITALS (7 sets, daily range): BP systolic 103–154; BP diastolic 70–82; PULSE 57–72; RESP 16–20; TEMP 35.9–36.4; O2SAT 97–99
[2023-11-29] MEDS: ESOMEPRAZOLE 40 MG GT (08:03)
[2023-11-29] MEDS: SOD PHOS DI, MONO/K PHOS MONO 250 MG TABLET GT (08:03)
[2023-11-29] MEDS: SODIUM CHLORIDE TAB 1,000 MG TABLET.SOL 1000 MG GT ×2 (08:03→20:10)
--- NOTE | 2023-11-29 20:07 | ESPR_ITS ---
Progress Note - SubAcute SUBJECTIVE Fever:: none GI:: none Shortness of Breath:: none GI:: no complaints Pain:: none OBJECTIVE Most recent vital signs: Last Vital Signs Temp 97.0 F 11/29/23 17:38 Pulse 57 L 11/29/23 17:38 Resp 16 11/29/23 17:38 BP 103/70 11/29/23 17:38 Pulse Ox 99 11/29/23 11:57 O2 Del Method Blow-by 11/29/23 11:57 O2 Flow Rate 6 11/29/23 11:57 FiO2 28 11/29/23 11:57 Neurological:: alert Speech:: nods head, mouths words (sometimes) and appropriate Answers questions:: sometimes Respiratory:: shallow breathing Cardiovascular: RRR Abdomen: soft and nontender Extremities:: deformities Decubitus:: none Tracheostomy:: to blow by Feeding per:: G tube Complaints:: none ASSESSMENT & PLAN Assessment: 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 No pain issues, and remains comfortable. Ice chips for some oral gratification tried with success without any cough or aspiration Plan: All treatment reviewed and continued.
[2023-11-29] MEDS: SENNOSIDES 8.6 MG TABLET 17.2 MG GT (20:09)
[2023-11-29] MEDS: LOSARTAN 100 MG TABLET GT (20:09)
[2023-11-30] VITALS (7 sets, daily range): BP systolic 122–143; BP diastolic 80–88; PULSE 65–78; RESP 18–20; TEMP 36.1–36.2; O2SAT 95–99
[2023-11-30] MEDS: ESOMEPRAZOLE 40 MG GT (08:04)
[2023-11-30] MEDS: MULTIVIT-MIN/IRON FUM/FOLIC AC 1 EACH TABLET GT (08:04)
[2023-11-30] MEDS: SODIUM CHLORIDE TAB 1,000 MG TABLET.SOL 1000 MG GT ×2 (08:04→20:25)
[2023-11-30] MEDS: SOD PHOS DI, MONO/K PHOS MONO 250 MG TABLET GT (08:04)
--- NOTE | 2023-11-30 14:48 | PC.SS ---
Room visit: resident is laying in bed with head of the bed elevated with call light properly placed with no signs of distress. Resident remains on blow by with trach in place and GT for medication and nutrition. Resident will remain in current care as she has no changes in care or condition, all subacute care needs will continue to be met by staff. This SSD will make daily contact with resident and monitor for any changes.
[2023-11-30] MEDS: LOSARTAN 100 MG TABLET GT (20:24)
[2023-11-30] MEDS: SENNOSIDES 8.6 MG TABLET 17.2 MG GT (20:25)
[2023-12-01] VITALS (7 sets, daily range): BP systolic 117–175; BP diastolic 80–83; PULSE 63–71; RESP 16–20; TEMP 36.1–36.5; O2SAT 97
[2023-12-01] MEDS: ESOMEPRAZOLE 40 MG GT (08:04)
[2023-12-01] MEDS: SOD PHOS DI, MONO/K PHOS MONO 250 MG TABLET GT (08:04)
[2023-12-01] MEDS: SODIUM CHLORIDE TAB 1,000 MG TABLET.SOL 1000 MG GT ×2 (08:05→20:47)
[2023-12-01] MEDS: MULTIVIT-MIN/IRON FUM/FOLIC AC 1 EACH TABLET GT (08:05)
[2023-12-01] MEDS: SENNOSIDES 8.6 MG TABLET 17.2 MG GT (20:46)
[2023-12-01] MEDS: LOSARTAN 100 MG TABLET GT (20:46)
[2023-12-02] VITALS (7 sets, daily range): BP systolic 117–133; BP diastolic 75–85; PULSE 60–79; RESP 18–22; TEMP 36.1; O2SAT 97–99
[2023-12-02] MEDS: SODIUM CHLORIDE TAB 1,000 MG TABLET.SOL 1000 MG GT ×2 (09:24→20:57)
[2023-12-02] MEDS: ESOMEPRAZOLE 40 MG GT (09:24)
[2023-12-02] MEDS: MULTIVIT-MIN/IRON FUM/FOLIC AC 1 EACH TABLET GT (09:24)
[2023-12-02] MEDS: SOD PHOS DI, MONO/K PHOS MONO 250 MG TABLET GT (09:24)
[2023-12-02] MEDS: SENNOSIDES 8.6 MG TABLET 17.2 MG GT (20:57)
[2023-12-02] MEDS: LOSARTAN 100 MG TABLET GT (20:57)
[2023-12-03] VITALS: BP 149/76; PULSE 65; RESP 19; TEMP 36.3
[2023-12-03 06:00] VITALS: BP 157/86; PULSE 68; RESP 18; TEMP 36.3
[2023-12-03 06:08] VITALS: PULSE 67; RESP 18; O2SAT 98
[2023-12-03] MEDS: MULTIVIT-MIN/IRON FUM/FOLIC AC 1 EACH TABLET GT (08:05)
[2023-12-03] MEDS: ESOMEPRAZOLE 40 MG GT (08:05)
[2023-12-03] MEDS: SODIUM CHLORIDE TAB 1,000 MG TABLET.SOL 1000 MG GT ×2 (08:05→20:19)
[2023-12-03] MEDS: SOD PHOS DI, MONO/K PHOS MONO 250 MG TABLET GT (08:05)
[2023-12-03 12:00] VITALS: BP 129/81; PULSE 64; RESP 17; TEMP 35.9
[2023-12-03 17:47] VITALS: BP 128/84; PULSE 78; RESP 16; TEMP 36.8; O2SAT 98
[2023-12-03 20:18] VITALS: BP 135/87; PULSE 69
[2023-12-03] MEDS: SENNOSIDES 8.6 MG TABLET 17.2 MG GT (20:18)
[2023-12-03] MEDS: LOSARTAN 100 MG TABLET GT (20:18)
[2023-12-04] VITALS (9 sets, daily range): BP systolic 107–146; BP diastolic 71–89; PULSE 55–67; RESP 16–20; TEMP 36.1–36.3; O2SAT 97–99
[2023-12-04] MEDS: ESOMEPRAZOLE 40 MG GT (08:12)
[2023-12-04] MEDS: MULTIVIT-MIN/IRON FUM/FOLIC AC 1 EACH TABLET GT (08:12)
[2023-12-04] MEDS: SOD PHOS DI, MONO/K PHOS MONO 250 MG TABLET GT (08:12)
[2023-12-04] MEDS: SODIUM CHLORIDE TAB 1,000 MG TABLET.SOL 1000 MG GT ×2 (08:13→20:52)
[2023-12-04] MEDS: LOSARTAN 100 MG TABLET GT (20:52)
[2023-12-04] MEDS: SENNOSIDES 8.6 MG TABLET 17.2 MG GT (20:52)
--- NOTE | 2023-12-04 22:58 | PD.SAPROG ---
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 (2) Epilepsy, unspecified, not intractable, without status epilepticus: Status: Chronic (3) Essential (primary) hypertension: Status: Chronic (4) Tracheostomy status: Status: Chronic (5) Gastrostomy status: Status: Chronic (6) Chronic respiratory failure, unspecified whether with hypoxia or hypercapnia: Status: Chronic (7) Chronic hyponatremia: Status: Chronic SUBJECTIVE Fever:: none GI:: none Shortness of Breath:: none GI:: no complaints Pain:: none OBJECTIVE Most recent vital signs: Last Vital Signs Temp 97.4 F 12/04/23 17:57 Pulse 57 L 12/04/23 20:52 Resp 18 12/04/23 19:10 BP 134/71 H 12/04/23 20:52 Pulse Ox 97 12/04/23 19:10 O2 Del Method Blow-by 12/04/23 05:40 O2 Flow Rate 6 12/04/23 19:10 FiO2 28 12/04/23 19:10 Neurological:: alert Speech:: nods head, mouths words (sometimes) and appropriate Answers questions:: sometimes Respiratory:: shallow breathing Cardiovascular: RRR Abdomen: soft and nontender Extremities:: deformities Decubitus:: none Tracheostomy:: to blow by Feeding per:: G tube Complaints:: none ASSESSMENT & PLAN Assessment: 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 No pain issues, and remains comfortable. Ice chips for some oral gratification tried with success without any cough or aspiration Plan: All treatment reviewed and continued.
[2023-12-05] VITALS: BP 104/63; PULSE 51; RESP 20; TEMP 35.9
[2023-12-05 06:00] VITALS: BP 127/73; PULSE 61; RESP 20; TEMP 36.2; O2SAT 100
[2023-12-05 06:08] VITALS: PULSE 57; RESP 18; O2SAT 98
[2023-12-05] MEDS: ESOMEPRAZOLE 40 MG GT (08:03)
[2023-12-05] MEDS: MULTIVIT-MIN/IRON FUM/FOLIC AC 1 EACH TABLET GT (08:04)
[2023-12-05] MEDS: SODIUM CHLORIDE TAB 1,000 MG TABLET.SOL 1000 MG GT ×2 (08:04→20:17)
[2023-12-05] MEDS: SOD PHOS DI, MONO/K PHOS MONO 250 MG TABLET GT (08:04)
[2023-12-05] MEDS: MAGNESIUM HYDROXIDE 30 ML ORAL SUSP ML GT (11:00)
[2023-12-05 12:00] VITALS: BP 126/78; PULSE 61; RESP 21; TEMP 36.3; O2SAT 99
[2023-12-05 17:59] VITALS: BP 131/79; PULSE 57; RESP 19; TEMP 36.3
[2023-12-05 20:16] VITALS: BP 134/78; PULSE 62
[2023-12-05] MEDS: LOSARTAN 100 MG TABLET GT (20:16)
[2023-12-05] MEDS: SENNOSIDES 8.6 MG TABLET 17.2 MG GT (20:16)
[2023-12-06] VITALS (8 sets, daily range): BP systolic 102–138; BP diastolic 69–94; PULSE 54–68; RESP 16–20; TEMP 35.9–36.2; O2SAT 97–100
[2023-12-06] MEDS: SODIUM CHLORIDE TAB 1,000 MG TABLET.SOL 1000 MG GT ×2 (08:04→20:06)
[2023-12-06] MEDS: ESOMEPRAZOLE 40 MG GT (08:04)
[2023-12-06] MEDS: MULTIVIT-MIN/IRON FUM/FOLIC AC 1 EACH TABLET GT (08:04)
[2023-12-06] MEDS: SOD PHOS DI, MONO/K PHOS MONO 250 MG TABLET GT (08:04)
[2023-12-06] MEDS: LOSARTAN 100 MG TABLET GT (20:04)
[2023-12-06] MEDS: SENNOSIDES 8.6 MG TABLET 17.2 MG GT (20:05)
[2023-12-07] VITALS (7 sets, daily range): BP systolic 94–154; BP diastolic 71–85; PULSE 50–65; RESP 18; TEMP 36–36.2; O2SAT 95–99
[2023-12-07] MEDS: MULTIVIT-MIN/IRON FUM/FOLIC AC 1 EACH TABLET GT (08:18)
[2023-12-07] MEDS: SOD PHOS DI, MONO/K PHOS MONO 250 MG TABLET GT (08:18)
[2023-12-07] MEDS: SODIUM CHLORIDE TAB 1,000 MG TABLET.SOL 1000 MG GT ×2 (08:18→20:21)
[2023-12-07] MEDS: ESOMEPRAZOLE 40 MG GT (08:18)
--- NOTE | 2023-12-07 14:18 | PC.SS ---
Room visit: Resident is laying in bed with head of the bed elevated with call light properly placed with no signs of distress. Resident will remain in current care as she has no changes in care or condition. She remains on blow by with trach in place and GT for medication and nutrition. She will continue to have all subacute care needs met by staff.
[2023-12-07] MEDS: LOSARTAN 100 MG TABLET GT (20:20)
[2023-12-07] MEDS: SENNOSIDES 8.6 MG TABLET 17.2 MG GT (20:21)
[2023-12-08] VITALS (7 sets, daily range): BP systolic 104–144; BP diastolic 74–93; PULSE 55–63; RESP 15–22; TEMP 35.9–37; O2SAT 95–98
[2023-12-08] MEDS: ESOMEPRAZOLE 40 MG GT (08:03)
[2023-12-08] MEDS: SOD PHOS DI, MONO/K PHOS MONO 250 MG TABLET GT (08:03)
[2023-12-08] MEDS: SODIUM CHLORIDE TAB 1,000 MG TABLET.SOL 1000 MG GT ×2 (08:03→20:23)
[2023-12-08] MEDS: MULTIVIT-MIN/IRON FUM/FOLIC AC 1 EACH TABLET GT (08:03)
[2023-12-08] MEDS: SENNOSIDES 8.6 MG TABLET 17.2 MG GT (20:23)
[2023-12-08] MEDS: MAGNESIUM HYDROXIDE 30 ML ORAL SUSP ML GT (20:52)
--- NOTE | 2023-12-08 23:31 | ESPR_ITS ---
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 (2) Epilepsy, unspecified, not intractable, without status epilepticus: Status: Chronic (3) Essential (primary) hypertension: Status: Chronic (4) Tracheostomy status: Status: Chronic (5) Gastrostomy status: Status: Chronic (6) Chronic respiratory failure, unspecified whether with hypoxia or hypercapnia: Status: Chronic (7) Chronic hyponatremia: Status: Chronic SUBJECTIVE Fever:: none GI:: none Shortness of Breath:: none GI:: no complaints Pain:: none OBJECTIVE Most recent vital signs: Last Vital Signs Temp 97.4 F 12/08/23 18:00 Pulse 55 L 12/08/23 20:22 Resp 18 12/08/23 19:20 BP 104/74 12/08/23 20:22 Pulse Ox 98 12/08/23 19:20 O2 Del Method Blow-by 12/08/23 06:00 O2 Flow Rate 6 12/08/23 19:20 FiO2 28 12/08/23 19:20 Neurological:: alert Speech:: nods head, mouths words (sometimes) and appropriate Answers questions:: sometimes Respiratory:: shallow breathing Cardiovascular: RRR Abdomen: soft and nontender Extremities:: deformities Decubitus:: none Tracheostomy:: to blow by Feeding per:: G tube Complaints:: none ASSESSMENT & PLAN Assessment: 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 No pain issues, and remains comfortable. Ice chips for some oral gratification tried with success without any cough or aspiration Plan: All treatment reviewed and continued.
[2023-12-09] VITALS (7 sets, daily range): BP systolic 111–159; BP diastolic 65–89; PULSE 58–89; RESP 18–20; TEMP 36.2–36.3; O2SAT 96–99
[2023-12-09] MEDS: SOD PHOS DI, MONO/K PHOS MONO 250 MG TABLET GT (08:06)
[2023-12-09] MEDS: ESOMEPRAZOLE 40 MG GT (08:06)
[2023-12-09] MEDS: SODIUM CHLORIDE TAB 1,000 MG TABLET.SOL 1000 MG GT ×2 (08:07→20:17)
[2023-12-09] MEDS: MULTIVIT-MIN/IRON FUM/FOLIC AC 1 EACH TABLET GT (08:07)
[2023-12-09] MEDS: SENNOSIDES 8.6 MG TABLET 17.2 MG GT (20:17)
[2023-12-09] MEDS: LOSARTAN 100 MG TABLET GT (20:17)
[2023-12-10] VITALS (7 sets, daily range): BP systolic 101–149; BP diastolic 67–87; PULSE 67–85; RESP 18–19; TEMP 35.7–37.1; O2SAT 92–99
[2023-12-10] MEDS: MULTIVIT-MIN/IRON FUM/FOLIC AC 1 EACH TABLET GT (08:09)
[2023-12-10] MEDS: SODIUM CHLORIDE TAB 1,000 MG TABLET.SOL 1000 MG GT ×2 (08:09→20:24)
[2023-12-10] MEDS: ESOMEPRAZOLE 40 MG GT (08:09)
[2023-12-10] MEDS: SOD PHOS DI, MONO/K PHOS MONO 250 MG TABLET GT (08:09)
[2023-12-10] MEDS: LOSARTAN 100 MG TABLET GT (20:23)
[2023-12-10] MEDS: SENNOSIDES 8.6 MG TABLET 17.2 MG GT (20:24)
[2023-12-11] VITALS (8 sets, daily range): BP systolic 131–134; BP diastolic 74–83; PULSE 70–77; RESP 16–21; TEMP 36.1–36.3; O2SAT 96–98
[2023-12-11] MEDS: SODIUM CHLORIDE TAB 1,000 MG TABLET.SOL 1000 MG GT ×2 (08:20→20:59)
[2023-12-11] MEDS: SOD PHOS DI, MONO/K PHOS MONO 250 MG TABLET GT (08:20)
[2023-12-11] MEDS: ESOMEPRAZOLE 40 MG GT (08:20)
[2023-12-11] MEDS: MULTIVIT-MIN/IRON FUM/FOLIC AC 1 EACH TABLET GT (08:20)
[2023-12-11] MEDS: LOSARTAN 100 MG TABLET GT (20:57)
[2023-12-11] MEDS: SENNOSIDES 8.6 MG TABLET 17.2 MG GT (20:58)
[2023-12-12] VITALS (7 sets, daily range): BP systolic 97–154; BP diastolic 70–87; PULSE 55–72; RESP 16–20; TEMP 36–36.2; O2SAT 95–99
[2023-12-12] MEDS: ESOMEPRAZOLE 40 MG GT (09:35)
[2023-12-12] MEDS: MULTIVIT-MIN/IRON FUM/FOLIC AC 1 EACH TABLET GT (09:36)
[2023-12-12] MEDS: SOD PHOS DI, MONO/K PHOS MONO 250 MG TABLET GT (09:36)
[2023-12-12] MEDS: SODIUM CHLORIDE TAB 1,000 MG TABLET.SOL 1000 MG GT ×2 (09:36→20:15)
[2023-12-12] MEDS: SENNOSIDES 8.6 MG TABLET 17.2 MG GT (20:15)
[2023-12-12] MEDS: LOSARTAN 100 MG TABLET GT (20:15)
--- NOTE | 2023-12-12 22:21 | PD.SAPROG ---
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 (2) Epilepsy, unspecified, not intractable, without status epilepticus: Status: Chronic (3) Essential (primary) hypertension: Status: Chronic (4) Tracheostomy status: Status: Chronic (5) Gastrostomy status: Status: Chronic (6) Chronic respiratory failure, unspecified whether with hypoxia or hypercapnia: Status: Chronic (7) Chronic hyponatremia: Status: Chronic SUBJECTIVE Fever:: none GI:: none Shortness of Breath:: none GI:: no complaints Pain:: none OBJECTIVE Most recent vital signs: Last Vital Signs Temp 97.2 F 12/12/23 18:00 Pulse 60 12/12/23 20:15 Resp 18 12/12/23 18:00 BP 151/71 H 12/12/23 20:15 Pulse Ox 99 12/12/23 18:00 O2 Del Method Blow-by 12/12/23 18:00 O2 Flow Rate 6 12/12/23 06:24 FiO2 28 12/12/23 06:24 Neurological:: alert Speech:: nods head, mouths words (sometimes) and appropriate Answers questions:: sometimes Respiratory:: shallow breathing Cardiovascular: RRR Abdomen: soft and nontender Extremities:: deformities Decubitus:: none Tracheostomy:: to blow by Feeding per:: G tube Complaints:: none ASSESSMENT & PLAN Assessment: 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 No pain issues, and remains comfortable. Ice chips for some oral gratification tried with success without any cough or aspiration Plan: All treatment reviewed and continued.
[2023-12-13] VITALS (7 sets, daily range): BP systolic 123–145; BP diastolic 69–97; PULSE 53–76; RESP 18–20; TEMP 35.9–36.3; O2SAT 95–99
[2023-12-13] MEDS: SOD PHOS DI, MONO/K PHOS MONO 250 MG TABLET GT (08:00)
[2023-12-13] MEDS: SODIUM CHLORIDE TAB 1,000 MG TABLET.SOL 1000 MG GT ×2 (08:00→20:36)
[2023-12-13] MEDS: MULTIVIT-MIN/IRON FUM/FOLIC AC 1 EACH TABLET GT (08:00)
[2023-12-13] MEDS: ESOMEPRAZOLE 40 MG GT (08:00)
[2023-12-13] MEDS: SENNOSIDES 8.6 MG TABLET 17.2 MG GT (20:36)
[2023-12-13] MEDS: LOSARTAN 100 MG TABLET GT (20:36)
[2023-12-14] VITALS (7 sets, daily range): BP systolic 117–138; BP diastolic 70–89; PULSE 52–83; RESP 17–21; TEMP 36–36.2; O2SAT 94–98
[2023-12-14] MEDS: SODIUM CHLORIDE TAB 1,000 MG TABLET.SOL 1000 MG GT ×2 (09:39→20:40)
[2023-12-14] MEDS: ESOMEPRAZOLE 40 MG GT (09:39)
[2023-12-14] MEDS: SOD PHOS DI, MONO/K PHOS MONO 250 MG TABLET GT (09:39)
[2023-12-14] MEDS: MULTIVIT-MIN/IRON FUM/FOLIC AC 1 EACH TABLET GT (09:39)
--- NOTE | 2023-12-14 11:58 | PC.SS ---
Resident was sitting in anamaria chair in activity room, she enjoys participating in out of room activities, she was seen smiling during activity. Resident remains on blow by with trach in place and GT for medication and nutrition. Resident will remain in current care as she has no changes in care or condition she will continue to have all subacute care needs met by staff. SSD will make daily contact with resident and monitor for changes in mood and behavior
[2023-12-14] MEDS: LOSARTAN 100 MG TABLET GT (20:37)
[2023-12-14] MEDS: SENNOSIDES 8.6 MG TABLET 17.2 MG GT (20:39)
[2023-12-14] MEDS: MAGNESIUM HYDROXIDE 30 ML ORAL SUSP ML GT (20:40)
[2023-12-15] VITALS (7 sets, daily range): BP systolic 127–137; BP diastolic 83–95; PULSE 54–98; RESP 17–22; TEMP 35.9–36.3; O2SAT 90–96
[2023-12-15] MEDS: ESOMEPRAZOLE 40 MG GT (08:10)
[2023-12-15] MEDS: SODIUM CHLORIDE TAB 1,000 MG TABLET.SOL 1000 MG GT ×2 (08:11→20:16)
[2023-12-15] MEDS: MULTIVIT-MIN/IRON FUM/FOLIC AC 1 EACH TABLET GT (08:11)
[2023-12-15] MEDS: SOD PHOS DI, MONO/K PHOS MONO 250 MG TABLET GT (08:11)
[2023-12-15] MEDS: LOSARTAN 100 MG TABLET GT (20:16)
[2023-12-15] MEDS: SENNOSIDES 8.6 MG TABLET 17.2 MG GT (20:16)
[2023-12-16] VITALS (7 sets, daily range): BP systolic 114–164; BP diastolic 79–97; PULSE 63–115; RESP 18–30; TEMP 35.7–36.3; O2SAT 95–98
[2023-12-16] MEDS: ACETAMINOPHEN 325 MG TABLET 650 MG GT (01:10)
[2023-12-16] MEDS: ESOMEPRAZOLE 40 MG GT (09:12)
[2023-12-16] MEDS: MULTIVIT-MIN/IRON FUM/FOLIC AC 1 EACH TABLET GT (09:12)
[2023-12-16] MEDS: SODIUM CHLORIDE TAB 1,000 MG TABLET.SOL 1000 MG GT ×2 (09:12→20:27)
[2023-12-16] MEDS: SOD PHOS DI, MONO/K PHOS MONO 250 MG TABLET GT (09:12)
--- NOTE | 2023-12-16 16:48 | PD.SAPROG ---
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 (2) Epilepsy, unspecified, not intractable, without status epilepticus: Status: Chronic (3) Essential (primary) hypertension: Status: Chronic (4) Tracheostomy status: Status: Chronic (5) Gastrostomy status: Status: Chronic (6) Chronic respiratory failure, unspecified whether with hypoxia or hypercapnia: Status: Chronic (7) Chronic hyponatremia: Status: Chronic SUBJECTIVE Fever:: none GI:: none Shortness of Breath:: none GI:: no complaints Pain:: none OBJECTIVE Most recent vital signs: Last Vital Signs Temp 97.3 F 12/16/23 11:39 Pulse 63 12/16/23 11:39 Resp 20 12/16/23 11:39 BP 127/81 12/16/23 11:39 Pulse Ox 98 12/16/23 11:39 O2 Del Method Blow-by 12/16/23 06:00 O2 Flow Rate 6 12/16/23 06:04 FiO2 28 12/16/23 06:04 Neurological:: alert Speech:: nods head, mouths words (sometimes) and appropriate Answers questions:: sometimes Respiratory:: shallow breathing Cardiovascular: RRR Abdomen: soft and nontender Extremities:: deformities Decubitus:: none Tracheostomy:: to blow by Feeding per:: G tube Complaints:: none ASSESSMENT & PLAN Assessment: 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 No pain issues, and remains comfortable. Ice chips for some oral gratification tried with success without any cough or aspiration Plan: All treatment reviewed and continued.
[2023-12-16] MEDS: SENNOSIDES 8.6 MG TABLET 17.2 MG GT (20:27)
[2023-12-16] MEDS: LOSARTAN 100 MG TABLET GT (20:27)
[2023-12-17] VITALS (7 sets, daily range): BP systolic 123–134; BP diastolic 70–87; PULSE 50–99; RESP 18–23; TEMP 36.1–36.3; O2SAT 92–99
[2023-12-17] MEDS: SOD PHOS DI, MONO/K PHOS MONO 250 MG TABLET GT (08:34)
[2023-12-17] MEDS: ESOMEPRAZOLE 40 MG GT (08:34)
[2023-12-17] MEDS: MULTIVIT-MIN/IRON FUM/FOLIC AC 1 EACH TABLET GT (08:35)
[2023-12-17] MEDS: SODIUM CHLORIDE TAB 1,000 MG TABLET.SOL 1000 MG GT ×2 (08:35→21:00)
[2023-12-17] MEDS: LOSARTAN 100 MG TABLET GT (21:00)
[2023-12-17] MEDS: SENNOSIDES 8.6 MG TABLET 17.2 MG GT (21:00)
[2023-12-18] VITALS (7 sets, daily range): BP systolic 96–132; BP diastolic 62–79; PULSE 64–81; RESP 18–22; TEMP 35.8–36.2; O2SAT 93–98
[2023-12-18] MEDS: ACETAMINOPHEN 325 MG TABLET 650 MG GT (07:50)
[2023-12-18] MEDS: ESOMEPRAZOLE 40 MG GT (08:01)
[2023-12-18] MEDS: SOD PHOS DI, MONO/K PHOS MONO 250 MG TABLET GT (08:01)
[2023-12-18] MEDS: MULTIVIT-MIN/IRON FUM/FOLIC AC 1 EACH TABLET GT (08:02)
[2023-12-18] MEDS: SODIUM CHLORIDE TAB 1,000 MG TABLET.SOL 1000 MG GT ×2 (08:02→20:36)
[2023-12-18] MEDS: MAGNESIUM HYDROXIDE 30 ML ORAL SUSP ML GT (15:30)
[2023-12-18] MEDS: SENNOSIDES 8.6 MG TABLET 17.2 MG GT (20:36)
[2023-12-19] VITALS (7 sets, daily range): BP systolic 115–136; BP diastolic 78–85; PULSE 69–85; RESP 16–22; TEMP 36.3–36.4; O2SAT 94–98
[2023-12-19] MEDS: ESOMEPRAZOLE 40 MG GT (08:33)
[2023-12-19] MEDS: SODIUM CHLORIDE TAB 1,000 MG TABLET.SOL 1000 MG GT ×2 (08:33→21:57)
[2023-12-19] MEDS: MULTIVIT-MIN/IRON FUM/FOLIC AC 1 EACH TABLET GT (08:33)
[2023-12-19] MEDS: SOD PHOS DI, MONO/K PHOS MONO 250 MG TABLET GT (08:33)
[2023-12-19] MEDS: ALBUTEROL INHALER 200 PUFF/INH INHALER INH (08:49)
[2023-12-19] MEDS: IPRATROPIUM BROMIDE 200 PUFF/INH INHALER INH (08:49)
[2023-12-19] MEDS: LOSARTAN 100 MG TABLET GT (20:10)
[2023-12-19] MEDS: SENNOSIDES 8.6 MG TABLET 17.2 MG GT (20:11)
[2023-12-20] VITALS (7 sets, daily range): BP systolic 104–168; BP diastolic 74–83; PULSE 60–78; RESP 17–20; TEMP 36.1–36.3; O2SAT 97–98
[2023-12-20] MEDS: ESOMEPRAZOLE 40 MG GT (08:16)
[2023-12-20] MEDS: SOD PHOS DI, MONO/K PHOS MONO 250 MG TABLET GT (08:16)
[2023-12-20] MEDS: MULTIVIT-MIN/IRON FUM/FOLIC AC 1 EACH TABLET GT (08:16)
[2023-12-20] MEDS: SODIUM CHLORIDE TAB 1,000 MG TABLET.SOL 1000 MG GT ×2 (08:17→21:03)
--- NOTE | 2023-12-20 15:06 | PC.SS ---
Room change: Resident moved from room 117C in to room 125A, this SSD called daughter to notify. resident and roommate have been rooming together and are compatible together. This SSD will follow up and monitor for any changes.
[2023-12-20] MEDS: LOSARTAN 100 MG TABLET GT (21:01)
[2023-12-20] MEDS: SENNOSIDES 8.6 MG TABLET 17.2 MG GT (21:03)
--- NOTE | 2023-12-20 22:27 | ESPR_ITS ---
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 (2) Epilepsy, unspecified, not intractable, without status epilepticus: Status: Chronic (3) Essential (primary) hypertension: Status: Chronic (4) Tracheostomy status: Status: Chronic (5) Gastrostomy status: Status: Chronic (6) Chronic respiratory failure, unspecified whether with hypoxia or hypercapnia: Status: Chronic (7) Chronic hyponatremia: Status: Chronic SUBJECTIVE Fever:: none GI:: none Shortness of Breath:: none GI:: no complaints Pain:: none OBJECTIVE Most recent vital signs: Last Vital Signs Temp 97.3 F 12/20/23 18:00 Pulse 78 12/20/23 21:01 Resp 18 12/20/23 19:13 BP 168/83 H 12/20/23 21:01 Pulse Ox 98 12/20/23 19:13 O2 Del Method Blow-by 12/20/23 06:00 O2 Flow Rate 8 12/20/23 19:13 FiO2 30 12/20/23 19:13 Neurological:: alert Speech:: nods head, mouths words (sometimes) and appropriate Answers questions:: sometimes Respiratory:: shallow breathing Cardiovascular: RRR Abdomen: soft and nontender Extremities:: deformities Decubitus:: none Tracheostomy:: to blow by Feeding per:: G tube Complaints:: none ASSESSMENT & PLAN Assessment: 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 No pain issues, and remains comfortable. Ice chips for some oral gratification tried with success without any cough or aspiration Plan: All treatment reviewed and continued.
[2023-12-21] VITALS: BP 169/98; PULSE 80; RESP 20; TEMP 36.2
[2023-12-21 05:48] VITALS: PULSE 6; PULSE 69; RESP 18; O2SAT 96
[2023-12-21] MEDS: ESOMEPRAZOLE 40 MG GT (08:54)
[2023-12-21] MEDS: SOD PHOS DI, MONO/K PHOS MONO 250 MG TABLET GT (08:54)
[2023-12-21] MEDS: MULTIVIT-MIN/IRON FUM/FOLIC AC 1 EACH TABLET GT (08:54)
[2023-12-21] MEDS: SODIUM CHLORIDE TAB 1,000 MG TABLET.SOL 1000 MG GT ×2 (08:55→20:44)
[2023-12-21 12:00] VITALS: BP 148/82; PULSE 74; RESP 17; TEMP 36.6
--- NOTE | 2023-12-21 16:17 | PC.SS ---
Room visit: Resident is laying in bed with head of the bed elevated with call light properly placed. Resident has no changes in care or condition, remains on blow by with trach in place and GT in place for medication and nutrition. Resident will remain in current care and will continue to have all subacute care needs met by staff.
[2023-12-21 17:56] VITALS: BP 147/78; PULSE 72; RESP 17; TEMP 36.3; O2SAT 96
[2023-12-21 19:24] VITALS: PULSE 72; RESP 18; O2SAT 97
[2023-12-21 20:44] VITALS: BP 145/77; PULSE 72
[2023-12-21] MEDS: SENNOSIDES 8.6 MG TABLET 17.2 MG GT (20:44)
[2023-12-21] MEDS: LOSARTAN 100 MG TABLET GT (20:44)
[2023-12-22] VITALS (8 sets, daily range): BP systolic 108–168; BP diastolic 70–89; PULSE 74–118; RESP 20–24; TEMP 36.3–37.1; O2SAT 86–95
[2023-12-22] MEDS: ALBUTEROL INHALER 200 PUFF/INH INHALER INH ×2 (04:30→06:40)
[2023-12-22] MEDS: MULTIVIT-MIN/IRON FUM/FOLIC AC 1 EACH TABLET GT (08:53)
[2023-12-22] MEDS: SOD PHOS DI, MONO/K PHOS MONO 250 MG TABLET GT (08:53)
[2023-12-22] MEDS: SODIUM CHLORIDE TAB 1,000 MG TABLET.SOL 1000 MG GT ×2 (08:53→20:12)
[2023-12-22] MEDS: ESOMEPRAZOLE 40 MG GT (08:53)
[2023-12-22] MEDS: ACETAMINOPHEN 325 MG TABLET 650 MG GT ×2 (08:53→22:02)
[2023-12-22] MEDS: LOSARTAN 100 MG TABLET GT (20:11)
[2023-12-22] MEDS: SENNOSIDES 8.6 MG TABLET 17.2 MG GT (20:11)
[2023-12-23] VITALS (8 sets, daily range): BP systolic 132–168; BP diastolic 72–87; PULSE 62–87; RESP 17–22; TEMP 36.2–36.3; O2SAT 96–99
[2023-12-23] MEDS: ESOMEPRAZOLE 40 MG GT (08:46)
[2023-12-23] MEDS: MULTIVIT-MIN/IRON FUM/FOLIC AC 1 EACH TABLET GT (08:46)
[2023-12-23] MEDS: SOD PHOS DI, MONO/K PHOS MONO 250 MG TABLET GT (08:46)
[2023-12-23] MEDS: ACETAMINOPHEN 325 MG TABLET 650 MG GT ×2 (08:46→20:53)
[2023-12-23] MEDS: SODIUM CHLORIDE TAB 1,000 MG TABLET.SOL 1000 MG GT ×2 (08:46→20:53)
[2023-12-23] MEDS: LOSARTAN 100 MG TABLET GT (20:52)
[2023-12-23] MEDS: SENNOSIDES 8.6 MG TABLET 17.2 MG GT (20:52)
[2023-12-24 05:45] VITALS: BP 94/67; PULSE 64; RESP 18; TEMP 36.5; O2SAT 99
[2023-12-24 06:42] VITALS: PULSE 56; RESP 20; O2SAT 98
[2023-12-24] MEDS: ESOMEPRAZOLE 40 MG GT (09:00)
[2023-12-24] MEDS: MULTIVIT-MIN/IRON FUM/FOLIC AC 1 EACH TABLET GT (09:00)
[2023-12-24] MEDS: SOD PHOS DI, MONO/K PHOS MONO 250 MG TABLET GT (09:00)
[2023-12-24] MEDS: SODIUM CHLORIDE TAB 1,000 MG TABLET.SOL 1000 MG GT ×2 (09:00→21:17)
[2023-12-24 12:00] VITALS: BP 152/89; PULSE 67; RESP 20; TEMP 36.6
[2023-12-24 18:00] VITALS: BP 132/79; PULSE 61; RESP 18; TEMP 36.3; O2SAT 97
[2023-12-24 19:50] VITALS: PULSE 74; RESP 18; RESP 20; O2SAT 97
--- NOTE | 2023-12-24 20:43 | ESPR_ITS ---
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 (2) Epilepsy, unspecified, not intractable, without status epilepticus: Status: Chronic (3) Essential (primary) hypertension: Status: Chronic (4) Tracheostomy status: Status: Chronic (5) Gastrostomy status: Status: Chronic (6) Chronic respiratory failure, unspecified whether with hypoxia or hypercapnia: Status: Chronic (7) Chronic hyponatremia: Status: Chronic SUBJECTIVE Fever:: none GI:: none Shortness of Breath:: none GI:: no complaints Pain:: none OBJECTIVE Most recent vital signs: Last Vital Signs Temp 97.4 F 12/24/23 18:00 Pulse 61 12/24/23 18:00 Resp 18 12/24/23 18:00 BP 132/79 H 12/24/23 18:00 Pulse Ox 97 12/24/23 18:00 O2 Del Method Blow-by 12/24/23 18:00 O2 Flow Rate 8 12/24/23 18:00 FiO2 30 12/24/23 18:00 Neurological:: alert Speech:: nods head, mouths words (sometimes) and appropriate Answers questions:: sometimes Respiratory:: shallow breathing Cardiovascular: RRR Abdomen: soft and nontender Extremities:: deformities Decubitus:: none Tracheostomy:: to blow by Feeding per:: G tube Complaints:: none ASSESSMENT & PLAN Assessment: 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 No pain issues, and remains comfortable. Ice chips for some oral gratification tried with success without any cough or aspiration Plan: All treatment reviewed and continued.
[2023-12-24 21:17] VITALS: BP 150/85; PULSE 80
[2023-12-24] MEDS: SENNOSIDES 8.6 MG TABLET 17.2 MG GT (21:17)
[2023-12-24] MEDS: LOSARTAN 100 MG TABLET GT (21:17)
[2023-12-25] VITALS (7 sets, daily range): BP systolic 122–150; BP diastolic 72–89; PULSE 66–115; RESP 16–20; TEMP 36.5–36.7; O2SAT 96–98
[2023-12-25] MEDS: MAGNESIUM HYDROXIDE 30 ML ORAL SUSP ML GT (02:39)
[2023-12-25] MEDS: SOD PHOS DI, MONO/K PHOS MONO 250 MG TABLET GT (09:01)
[2023-12-25] MEDS: ESOMEPRAZOLE 40 MG GT (09:01)
[2023-12-25] MEDS: SODIUM CHLORIDE TAB 1,000 MG TABLET.SOL 1000 MG GT ×2 (09:01→21:14)
[2023-12-25] MEDS: MULTIVIT-MIN/IRON FUM/FOLIC AC 1 EACH TABLET GT (09:01)
[2023-12-25] MEDS: ACETAMINOPHEN 325 MG TABLET 650 MG GT (17:54)
[2023-12-25] MEDS: SENNOSIDES 8.6 MG TABLET 17.2 MG GT (21:14)
[2023-12-25] MEDS: LOSARTAN 100 MG TABLET GT (21:14)
[2023-12-26] VITALS (7 sets, daily range): BP systolic 125–139; BP diastolic 79–84; PULSE 70–115; RESP 16–20; TEMP 36.3–36.6; O2SAT 96–97
[2023-12-26] MEDS: ESOMEPRAZOLE 40 MG GT (09:03)
[2023-12-26] MEDS: SODIUM CHLORIDE TAB 1,000 MG TABLET.SOL 1000 MG GT ×2 (09:03→20:50)
[2023-12-26] MEDS: SOD PHOS DI, MONO/K PHOS MONO 250 MG TABLET GT (09:03)
[2023-12-26] MEDS: MULTIVIT-MIN/IRON FUM/FOLIC AC 1 EACH TABLET GT (09:03)
[2023-12-26] MEDS: LOSARTAN 100 MG TABLET GT (20:50)
[2023-12-26] MEDS: SENNOSIDES 8.6 MG TABLET 17.2 MG GT (20:50)
[2023-12-27] VITALS (7 sets, daily range): BP systolic 129–174; BP diastolic 69–92; PULSE 20–71; RESP 18–20; TEMP 36.1–36.4; O2SAT 94–99
[2023-12-27] MEDS: ESOMEPRAZOLE 40 MG GT (08:59)
[2023-12-27] MEDS: SODIUM CHLORIDE TAB 1,000 MG TABLET.SOL 1000 MG GT ×2 (08:59→20:51)
[2023-12-27] MEDS: MULTIVIT-MIN/IRON FUM/FOLIC AC 1 EACH TABLET GT (08:59)
[2023-12-27] MEDS: SOD PHOS DI, MONO/K PHOS MONO 250 MG TABLET GT (08:59)
[2023-12-27] MEDS: LOSARTAN 100 MG TABLET GT (20:51)
[2023-12-27] MEDS: SENNOSIDES 8.6 MG TABLET 17.2 MG GT (20:51)
[2023-12-28] VITALS (7 sets, daily range): BP systolic 138–163; BP diastolic 70–89; PULSE 71–81; RESP 16–20; TEMP 36–36.3; O2SAT 96–99
[2023-12-28] MEDS: ESOMEPRAZOLE 40 MG GT (08:11)
[2023-12-28] MEDS: SOD PHOS DI, MONO/K PHOS MONO 250 MG TABLET GT (08:11)
[2023-12-28] MEDS: MULTIVIT-MIN/IRON FUM/FOLIC AC 1 EACH TABLET GT (08:11)
[2023-12-28] MEDS: SODIUM CHLORIDE TAB 1,000 MG TABLET.SOL 1000 MG GT ×2 (08:11→21:30)
--- NOTE | 2023-12-28 15:08 | PC.SS ---
Room visit: Resident is laying in bed with head of the bed elevated with call light properly placed with no signs of distress. Resident remains on blow by with trach in place and GT for medication and nutrition. Resident has no changes in care or condition, resident will remain in current care and will continue to have all subacute care needs met by staff. This SSD to make daily contact and monitor for changes in mod and behavior and will offer support as needed.
[2023-12-28] MEDS: SENNOSIDES 8.6 MG TABLET 17.2 MG GT (21:29)
[2023-12-28] MEDS: LOSARTAN 100 MG TABLET GT (21:29)
[2023-12-28] MEDS: MAGNESIUM HYDROXIDE 30 ML ORAL SUSP ML GT (21:30)
--- NOTE | 2023-12-28 22:22 | PD.SAPROG ---
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 (2) Epilepsy, unspecified, not intractable, without status epilepticus: Status: Chronic (3) Essential (primary) hypertension: Status: Chronic (4) Tracheostomy status: Status: Chronic (5) Gastrostomy status: Status: Chronic (6) Chronic respiratory failure, unspecified whether with hypoxia or hypercapnia: Status: Chronic (7) Chronic hyponatremia: Status: Chronic SUBJECTIVE Fever:: none GI:: none Shortness of Breath:: none GI:: no complaints Pain:: none OBJECTIVE Most recent vital signs: Last Vital Signs Temp 97.3 F 12/28/23 17:51 Pulse 80 12/28/23 21:29 Resp 17 12/28/23 17:51 BP 163/87 H 12/28/23 21:29 Pulse Ox 99 12/28/23 17:51 O2 Del Method Blow-by 12/28/23 17:51 O2 Flow Rate 8 12/28/23 04:19 FiO2 30 12/28/23 04:19 Neurological:: alert Speech:: nods head, mouths words (sometimes) and appropriate Answers questions:: sometimes Respiratory:: shallow breathing Cardiovascular: RRR Abdomen: soft and nontender Extremities:: deformities Decubitus:: none Tracheostomy:: to blow by Feeding per:: G tube Complaints:: none ASSESSMENT & PLAN Assessment: 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 No pain issues, and remains comfortable. Ice chips for some oral gratification tried with success without any cough or aspiration Plan: All treatment reviewed and continued.
[2023-12-29] VITALS (7 sets, daily range): BP systolic 105–167; BP diastolic 68–94; PULSE 60–78; RESP 16–20; TEMP 36.1–36.3; O2SAT 95–97
[2023-12-29] MEDS: SOD PHOS DI, MONO/K PHOS MONO 250 MG TABLET GT (08:11)
[2023-12-29] MEDS: MULTIVIT-MIN/IRON FUM/FOLIC AC 1 EACH TABLET GT (08:11)
[2023-12-29] MEDS: ESOMEPRAZOLE 40 MG GT (08:11)
[2023-12-29] MEDS: SODIUM CHLORIDE TAB 1,000 MG TABLET.SOL 1000 MG GT ×2 (08:12→20:53)
[2023-12-29] MEDS: LOSARTAN 100 MG TABLET GT (20:52)
[2023-12-29] MEDS: SENNOSIDES 8.6 MG TABLET 17.2 MG GT (20:53)
[2023-12-30] VITALS (7 sets, daily range): BP systolic 112–155; BP diastolic 75–86; PULSE 67–82; RESP 17–20; TEMP 36.1–36.7; O2SAT 96–97
[2023-12-30] MEDS: ESOMEPRAZOLE 40 MG GT (08:01)
[2023-12-30] MEDS: SODIUM CHLORIDE TAB 1,000 MG TABLET.SOL 1000 MG GT ×2 (08:02→20:35)
[2023-12-30] MEDS: SOD PHOS DI, MONO/K PHOS MONO 250 MG TABLET GT (08:02)
[2023-12-30] MEDS: MULTIVIT-MIN/IRON FUM/FOLIC AC 1 EACH TABLET GT (08:02)
--- NOTE | 2023-12-30 19:53 | ESPR_ITS ---
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 (2) Epilepsy, unspecified, not intractable, without status epilepticus: Status: Chronic (3) Essential (primary) hypertension: Status: Chronic (4) Tracheostomy status: Status: Chronic (5) Gastrostomy status: Status: Chronic (6) Chronic respiratory failure, unspecified whether with hypoxia or hypercapnia: Status: Chronic (7) Chronic hyponatremia: Status: Chronic SUBJECTIVE Fever:: none GI:: none Shortness of Breath:: none GI:: no complaints Pain:: none OBJECTIVE Most recent vital signs: Last Vital Signs Temp 98.1 F 12/30/23 17:49 Pulse 82 12/30/23 17:49 Resp 20 12/30/23 17:49 BP 142/84 H 12/30/23 17:49 Pulse Ox 96 12/30/23 17:49 O2 Del Method Blow-by 12/30/23 17:49 O2 Flow Rate 8 12/30/23 06:19 FiO2 30 12/30/23 06:19 Neurological:: alert Speech:: nods head, mouths words (sometimes) and appropriate Answers questions:: sometimes Respiratory:: shallow breathing Cardiovascular: RRR Abdomen: soft and nontender Extremities:: deformities Decubitus:: none Tracheostomy:: to blow by Feeding per:: G tube Complaints:: none ASSESSMENT & PLAN Assessment: 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 No pain issues, and remains comfortable. Ice chips for some oral gratification tried with success without any cough or aspiration Plan: All treatment reviewed and continued.
[2023-12-30] MEDS: LOSARTAN 100 MG TABLET GT (20:34)
[2023-12-30] MEDS: SENNOSIDES 8.6 MG TABLET 17.2 MG GT (20:35)
[2023-12-31] VITALS: BP 142/82; PULSE 60; RESP 18; TEMP 36.3
[2023-12-31 06:00] VITALS: BP 121/81; PULSE 75; RESP 18; TEMP 36.3; O2SAT 96
[2023-12-31 07:21] VITALS: PULSE 68; RESP 18; O2SAT 98; O2SAT 99
[2023-12-31] MEDS: SOD PHOS DI, MONO/K PHOS MONO 250 MG TABLET GT (08:24)
[2023-12-31] MEDS: ESOMEPRAZOLE 40 MG GT (08:24)
[2023-12-31] MEDS: MULTIVIT-MIN/IRON FUM/FOLIC AC 1 EACH TABLET GT (08:24)
[2023-12-31] MEDS: SODIUM CHLORIDE TAB 1,000 MG TABLET.SOL 1000 MG GT ×2 (08:25→20:49)
[2023-12-31 09:27] LABS: Albumin, Serum 4.2 gm/dL (3.4-4.8); Anion Gap 5 (7-16); BUN/Creatinine Ratio 36 Ratio (12-20); Blood Urea Nitrogen 18 mg/dL (9-23); Calcium 9.7 mg/dL (8.3-10.6); Calcium (Corrected) 9.7 mg/dL (8.5-10.1); Carbon Dioxide 28.0 mMol/L (20.0-31.0); Chloride 103 mMol/L (98-107); Creatinine (Component) 0.5 mg/dL (0.6-1.3); Estimated Creatinine Clearance 81.8 mL/min (>60); Glucose 126 mg/dL (74-106); Osmolality,Calculated 275 (275-295); Phosphorous 3.9 mg/dL (2.4-5.1); Potassium 4.4 mMol/L (3.4-5.1); Sodium 136 mMol/L (136-145); eGFR > 60 See Note
[2023-12-31 12:00] VITALS: BP 158/82; PULSE 60; RESP 17; TEMP 36.4
[2023-12-31 18:00] VITALS: BP 176/90; PULSE 62; PULSE 66; RESP 18; RESP 22; TEMP 36.6; O2SAT 96; O2SAT 97
[2023-12-31 20:46] VITALS: BP 140/88; PULSE 68
[2023-12-31] MEDS: LOSARTAN 100 MG TABLET GT (20:46)
[2023-12-31] MEDS: SENNOSIDES 8.6 MG TABLET 17.2 MG GT (20:48)
[2024-01-01] VITALS: BP 131/84; PULSE 64; RESP 20; TEMP 36.2
[2024-01-01 06:47] VITALS: PULSE 73; RESP 18; O2SAT 97
[2024-01-01] MEDS: SODIUM CHLORIDE TAB 1,000 MG TABLET.SOL 1000 MG GT ×2 (08:14→20:08)
[2024-01-01] MEDS: MULTIVIT-MIN/IRON FUM/FOLIC AC 1 EACH TABLET GT (08:14)
[2024-01-01] MEDS: ESOMEPRAZOLE 40 MG GT (08:14)
[2024-01-01] MEDS: SOD PHOS DI, MONO/K PHOS MONO 250 MG TABLET GT (08:14)
[2024-01-01 12:00] VITALS: BP 135/64; PULSE 63; RESP 20; TEMP 36.1
[2024-01-01 17:40] VITALS: PULSE 69; RESP 18; O2SAT 95
[2024-01-01 17:44] VITALS: BP 130/83; PULSE 68; RESP 20; TEMP 36.1; O2SAT 99
[2024-01-01 20:07] VITALS: BP 130/83; PULSE 68
[2024-01-01] MEDS: LOSARTAN 100 MG TABLET GT (20:07)
[2024-01-01] MEDS: SENNOSIDES 8.6 MG TABLET 17.2 MG GT (20:07)
[2024-01-02] VITALS (7 sets, daily range): BP systolic 118–156; BP diastolic 68–92; PULSE 53–74; RESP 16–21; TEMP 35.7–36.2; O2SAT 96–100
[2024-01-02] MEDS: ESOMEPRAZOLE 40 MG GT (09:15)
[2024-01-02] MEDS: MULTIVIT-MIN/IRON FUM/FOLIC AC 1 EACH TABLET GT (09:16)
[2024-01-02] MEDS: SOD PHOS DI, MONO/K PHOS MONO 250 MG TABLET GT (09:16)
[2024-01-02] MEDS: SODIUM CHLORIDE TAB 1,000 MG TABLET.SOL 1000 MG GT ×2 (09:16→21:50)
--- NOTE | 2024-01-02 13:49 | PC.SS ---
Room visit: Resident is laying in bed with head of the bed elevated with call light properly placed with no signs of distress. Resident is well groomed not showing any changes in mood and behavior. Resident remains on blow by with trach in place and GT for medications. Resident will remain in current care and will continue to have all subacute care needs met by staff.
[2024-01-02] MEDS: SENNOSIDES 8.6 MG TABLET 17.2 MG GT (21:50)
[2024-01-02] MEDS: LOSARTAN 100 MG TABLET GT (21:50)
[2024-01-03] VITALS (7 sets, daily range): BP systolic 128–163; BP diastolic 80–86; PULSE 72–90; RESP 16–20; TEMP 36.2–36.4; O2SAT 95–99
[2024-01-03] MEDS: SODIUM CHLORIDE TAB 1,000 MG TABLET.SOL 1000 MG GT ×2 (08:04→21:11)
[2024-01-03] MEDS: MULTIVIT-MIN/IRON FUM/FOLIC AC 1 EACH TABLET GT (08:04)
[2024-01-03] MEDS: ESOMEPRAZOLE 40 MG GT (08:04)
[2024-01-03] MEDS: SOD PHOS DI, MONO/K PHOS MONO 250 MG TABLET GT (08:04)
[2024-01-03] MEDS: LOSARTAN 100 MG TABLET GT (21:08)
[2024-01-03] MEDS: SENNOSIDES 8.6 MG TABLET 17.2 MG GT (21:11)
--- NOTE | 2024-01-03 22:30 | PD.SAPROG ---
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 (2) Epilepsy, unspecified, not intractable, without status epilepticus: Status: Chronic (3) Essential (primary) hypertension: Status: Chronic (4) Tracheostomy status: Status: Chronic (5) Gastrostomy status: Status: Chronic (6) Chronic respiratory failure, unspecified whether with hypoxia or hypercapnia: Status: Chronic (7) Chronic hyponatremia: Status: Chronic SUBJECTIVE Fever:: none GI:: none Shortness of Breath:: none GI:: no complaints Pain:: none OBJECTIVE Most recent vital signs: Last Vital Signs Temp 96.5 F L 01/06/24 06:00 Pulse 55 L 01/06/24 06:00 Resp 20 01/06/24 06:00 BP 148/84 H 01/06/24 06:00 Pulse Ox 99 01/06/24 06:00 O2 Del Method Blow-by 01/03/24 06:00 O2 Flow Rate 8 01/05/24 23:45 FiO2 30 01/05/24 23:45 Neurological:: alert Speech:: nods head, mouths words (sometimes) and appropriate Answers questions:: sometimes Respiratory:: shallow breathing Cardiovascular: RRR Abdomen: soft and nontender Extremities:: deformities Decubitus:: none Tracheostomy:: to blow by Feeding per:: G tube Complaints:: none ASSESSMENT & PLAN Assessment: Pt fully dependent for residential care. No pain issues, and remains comfortable. Ice chips for some oral gratification tried with success without any cough or aspiration Plan: All treatment reviewed and continued.
[2024-01-04] VITALS (7 sets, daily range): BP systolic 139–161; BP diastolic 77–91; PULSE 61–81; RESP 18–22; TEMP 36.3–36.7; O2SAT 96–99
[2024-01-04] MEDS: SODIUM CHLORIDE TAB 1,000 MG TABLET.SOL 1000 MG GT ×2 (08:08→20:40)
[2024-01-04] MEDS: ESOMEPRAZOLE 40 MG GT (08:08)
[2024-01-04] MEDS: MULTIVIT-MIN/IRON FUM/FOLIC AC 1 EACH TABLET GT (08:08)
[2024-01-04] MEDS: SOD PHOS DI, MONO/K PHOS MONO 250 MG TABLET GT (08:08)
[2024-01-04] MEDS: LOSARTAN 100 MG TABLET GT (20:39)
[2024-01-04] MEDS: SENNOSIDES 8.6 MG TABLET 17.2 MG GT (20:39)
[2024-01-05] VITALS (7 sets, daily range): BP systolic 138–157; BP diastolic 74–84; PULSE 55–81; RESP 18–22; TEMP 35.8–36.3; O2SAT 96
[2024-01-05] MEDS: SODIUM CHLORIDE TAB 1,000 MG TABLET.SOL 1000 MG GT ×2 (08:02→20:35)
[2024-01-05] MEDS: ESOMEPRAZOLE 40 MG GT (08:02)
[2024-01-05] MEDS: MULTIVIT-MIN/IRON FUM/FOLIC AC 1 EACH TABLET GT (08:02)
[2024-01-05] MEDS: SOD PHOS DI, MONO/K PHOS MONO 250 MG TABLET GT (08:02)
[2024-01-05] MEDS: SENNOSIDES 8.6 MG TABLET 17.2 MG GT (20:35)
[2024-01-05] MEDS: LOSARTAN 100 MG TABLET GT (20:35)
[2024-01-06] VITALS (7 sets, daily range): BP systolic 132–148; BP diastolic 71–86; PULSE 55–81; RESP 18–21; TEMP 35.8–36.3; O2SAT 97–99
[2024-01-06] MEDS: SOD PHOS DI, MONO/K PHOS MONO 250 MG TABLET GT (08:13)
[2024-01-06] MEDS: MULTIVIT-MIN/IRON FUM/FOLIC AC 1 EACH TABLET GT (08:13)
[2024-01-06] MEDS: ESOMEPRAZOLE 40 MG GT (08:13)
[2024-01-06] MEDS: SODIUM CHLORIDE TAB 1,000 MG TABLET.SOL 1000 MG GT ×2 (08:14→21:21)
[2024-01-06] MEDS: LOSARTAN 100 MG TABLET GT (21:20)
[2024-01-06] MEDS: SENNOSIDES 8.6 MG TABLET 17.2 MG GT (21:21)
[2024-01-07] VITALS (7 sets, daily range): BP systolic 126–152; BP diastolic 72–91; PULSE 51–78; RESP 18–20; TEMP 36.1; O2SAT 95–99
[2024-01-07] MEDS: ESOMEPRAZOLE 40 MG GT (08:54)
[2024-01-07] MEDS: MULTIVIT-MIN/IRON FUM/FOLIC AC 1 EACH TABLET GT (08:54)
[2024-01-07] MEDS: SOD PHOS DI, MONO/K PHOS MONO 250 MG TABLET GT (08:54)
[2024-01-07] MEDS: SODIUM CHLORIDE TAB 1,000 MG TABLET.SOL 1000 MG GT ×2 (08:54→20:53)
--- NOTE | 2024-01-07 18:51 | PD.SAPROG ---
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 (2) Epilepsy, unspecified, not intractable, without status epilepticus: Status: Chronic (3) Essential (primary) hypertension: Status: Chronic (4) Tracheostomy status: Status: Chronic (5) Gastrostomy status: Status: Chronic (6) Chronic respiratory failure, unspecified whether with hypoxia or hypercapnia: Status: Chronic (7) Chronic hyponatremia: Status: Chronic SUBJECTIVE Fever:: none GI:: none Shortness of Breath:: none GI:: no complaints Pain:: none OBJECTIVE Most recent vital signs: Last Vital Signs Temp 97.0 F 01/07/24 18:00 Pulse 65 01/07/24 18:00 Resp 20 01/07/24 18:00 BP 140/83 H 01/07/24 18:00 Pulse Ox 95 01/07/24 18:00 O2 Del Method Blow-by 01/07/24 18:00 O2 Flow Rate 6 01/07/24 07:15 FiO2 28 01/07/24 07:15 Neurological:: alert Speech:: nods head, mouths words (sometimes) and appropriate Answers questions:: sometimes Respiratory:: shallow breathing Cardiovascular: RRR Abdomen: soft and nontender Extremities:: deformities Decubitus:: none Tracheostomy:: to blow by Feeding per:: G tube Complaints:: none ASSESSMENT & PLAN Assessment: 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 No pain issues, and remains comfortable. Ice chips for some oral gratification tried with success without any cough or aspiration Plan: All treatment reviewed and continued.
[2024-01-07] MEDS: LOSARTAN 100 MG TABLET GT (20:52)
[2024-01-07] MEDS: SENNOSIDES 8.6 MG TABLET 17.2 MG GT (20:53)
[2024-01-08] VITALS (7 sets, daily range): BP systolic 121–135; BP diastolic 82–86; PULSE 58–83; RESP 18–20; TEMP 36.2–36.7; O2SAT 96–99
[2024-01-08] MEDS: SOD PHOS DI, MONO/K PHOS MONO 250 MG TABLET GT (08:22)
[2024-01-08] MEDS: MULTIVIT-MIN/IRON FUM/FOLIC AC 1 EACH TABLET GT (08:22)
[2024-01-08] MEDS: ESOMEPRAZOLE 40 MG GT (08:22)
[2024-01-08] MEDS: SODIUM CHLORIDE TAB 1,000 MG TABLET.SOL 1000 MG GT ×2 (08:22→20:30)
[2024-01-08] MEDS: SENNOSIDES 8.6 MG TABLET 17.2 MG GT (20:29)
[2024-01-08] MEDS: LOSARTAN 100 MG TABLET GT (20:29)
[2024-01-09] VITALS (7 sets, daily range): BP systolic 128–153; BP diastolic 76–89; PULSE 61–71; RESP 18–20; TEMP 36.1–36.2; O2SAT 96–99
[2024-01-09] MEDS: SOD PHOS DI, MONO/K PHOS MONO 250 MG TABLET GT (09:18)
[2024-01-09] MEDS: MULTIVIT-MIN/IRON FUM/FOLIC AC 1 EACH TABLET GT (09:18)
[2024-01-09] MEDS: ESOMEPRAZOLE 40 MG GT (09:18)
[2024-01-09] MEDS: SODIUM CHLORIDE TAB 1,000 MG TABLET.SOL 1000 MG GT ×2 (09:19→21:09)
[2024-01-09] MEDS: LOSARTAN 100 MG TABLET GT (21:09)
[2024-01-09] MEDS: SENNOSIDES 8.6 MG TABLET 17.2 MG GT (21:09)
[2024-01-10] VITALS (7 sets, daily range): BP systolic 113–153; BP diastolic 76–84; PULSE 61–74; RESP 16–21; TEMP 36.1–36.2; O2SAT 97–100
[2024-01-10] MEDS: SOD PHOS DI, MONO/K PHOS MONO 250 MG TABLET GT (08:07)
[2024-01-10] MEDS: MULTIVIT-MIN/IRON FUM/FOLIC AC 1 EACH TABLET GT (08:07)
[2024-01-10] MEDS: ESOMEPRAZOLE 40 MG GT (08:07)
[2024-01-10] MEDS: SODIUM CHLORIDE TAB 1,000 MG TABLET.SOL 1000 MG GT ×2 (08:07→20:40)
[2024-01-10] MEDS: LOSARTAN 100 MG TABLET GT (20:39)
[2024-01-10] MEDS: SENNOSIDES 8.6 MG TABLET 17.2 MG GT (20:40)
[2024-01-11] VITALS (7 sets, daily range): BP systolic 101–132; BP diastolic 50–78; PULSE 60–68; RESP 16–21; TEMP 36.1–36.3; O2SAT 95–99
[2024-01-11] MEDS: ESOMEPRAZOLE 40 MG GT (08:05)
[2024-01-11] MEDS: SOD PHOS DI, MONO/K PHOS MONO 250 MG TABLET GT (08:05)
[2024-01-11] MEDS: SODIUM CHLORIDE TAB 1,000 MG TABLET.SOL 1000 MG GT ×2 (08:05→20:40)
[2024-01-11] MEDS: LOSARTAN 100 MG TABLET GT (20:39)
[2024-01-11] MEDS: SENNOSIDES 8.6 MG TABLET 17.2 MG GT (20:39)
--- NOTE | 2024-01-11 22:55 | PD.SAPROG ---
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 (2) Epilepsy, unspecified, not intractable, without status epilepticus: Status: Chronic (3) Essential (primary) hypertension: Status: Chronic (4) Tracheostomy status: Status: Chronic (5) Gastrostomy status: Status: Chronic (6) Chronic respiratory failure, unspecified whether with hypoxia or hypercapnia: Status: Chronic (7) Chronic hyponatremia: Status: Chronic SUBJECTIVE Fever:: none GI:: none Shortness of Breath:: none GI:: no complaints Pain:: none OBJECTIVE Most recent vital signs: Last Vital Signs Temp 97.9 F 01/12/24 16:53 Pulse 57 L 01/12/24 22:17 Resp 16 01/12/24 22:17 BP 130/81 01/12/24 21:21 Pulse Ox 94 L 01/12/24 22:17 O2 Del Method Blow-by 01/12/24 06:00 O2 Flow Rate 6 01/12/24 22:17 FiO2 28 01/12/24 22:17 Neurological:: alert Speech:: nods head, mouths words (sometimes) and appropriate Answers questions:: sometimes Respiratory:: shallow breathing Cardiovascular: RRR Abdomen: soft and nontender Extremities:: deformities Decubitus:: none Tracheostomy:: to blow by Feeding per:: G tube Complaints:: none ASSESSMENT & PLAN Assessment: 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 No pain issues, and remains comfortable. Ice chips for some oral gratification tried with success without any cough or aspiration Plan: All treatment reviewed and continued.
[2024-01-12] VITALS (7 sets, daily range): BP systolic 122–149; BP diastolic 76–88; PULSE 53–78; RESP 16–21; TEMP 36.1–36.6; O2SAT 93–97
[2024-01-12] MEDS: ESOMEPRAZOLE 40 MG GT (08:00)
[2024-01-12] MEDS: SODIUM CHLORIDE TAB 1,000 MG TABLET.SOL 1000 MG GT ×2 (08:00→21:22)
[2024-01-12] MEDS: MULTIVIT-MIN/IRON FUM/FOLIC AC 1 EACH TABLET GT (08:00)
[2024-01-12] MEDS: SOD PHOS DI, MONO/K PHOS MONO 250 MG TABLET GT (08:00)
[2024-01-12] MEDS: LOSARTAN 100 MG TABLET GT (21:21)
[2024-01-12] MEDS: SENNOSIDES 8.6 MG TABLET 17.2 MG GT (21:22)
[2024-01-13] VITALS: BP 114/70; PULSE 50; RESP 20; TEMP 36
[2024-01-13 07:01] VITALS: PULSE 61; RESP 16; O2SAT 98
[2024-01-13] MEDS: ESOMEPRAZOLE 40 MG GT (09:03)
[2024-01-13] MEDS: SOD PHOS DI, MONO/K PHOS MONO 250 MG TABLET GT (09:04)
[2024-01-13] MEDS: MULTIVIT-MIN/IRON FUM/FOLIC AC 1 EACH TABLET GT (09:05)
[2024-01-13] MEDS: SODIUM CHLORIDE TAB 1,000 MG TABLET.SOL 1000 MG GT ×2 (09:05→21:00)
[2024-01-13 18:00] VITALS: BP 164/89; PULSE 68; RESP 20; TEMP 36.5; O2SAT 96
[2024-01-13 20:59] VITALS: BP 159/96; PULSE 95
[2024-01-13] MEDS: LOSARTAN 100 MG TABLET GT (20:59)
[2024-01-13] MEDS: SENNOSIDES 8.6 MG TABLET 17.2 MG GT (20:59)
[2024-01-13 22:35] VITALS: PULSE 58; RESP 16; O2SAT 98
[2024-01-14] VITALS (7 sets, daily range): BP systolic 113–166; BP diastolic 51–83; PULSE 60–90; RESP 16–22; TEMP 36.1–36.4; O2SAT 96–99
[2024-01-14] MEDS: SODIUM CHLORIDE TAB 1,000 MG TABLET.SOL 1000 MG GT ×2 (08:21→21:11)
[2024-01-14] MEDS: ESOMEPRAZOLE 40 MG GT (08:21)
[2024-01-14] MEDS: MULTIVIT-MIN/IRON FUM/FOLIC AC 1 EACH TABLET GT (08:21)
[2024-01-14] MEDS: SOD PHOS DI, MONO/K PHOS MONO 250 MG TABLET GT (08:21)
--- NOTE | 2024-01-14 14:37 | PC.SS ---
Resident seen by program supervisor/Dr. Berry, she had toe nails trimmed with no new orders or recommendations she will continue current care.
[2024-01-14] MEDS: LOSARTAN 100 MG TABLET GT (21:10)
[2024-01-14] MEDS: SENNOSIDES 8.6 MG TABLET 17.2 MG GT (21:10)
[2024-01-15] VITALS (7 sets, daily range): BP systolic 129–151; BP diastolic 73–85; PULSE 59–77; RESP 16–20; TEMP 36–36.3; O2SAT 92–97
[2024-01-15] MEDS: MULTIVIT-MIN/IRON FUM/FOLIC AC 1 EACH TABLET GT (08:02)
[2024-01-15] MEDS: ESOMEPRAZOLE 40 MG GT (08:02)
[2024-01-15] MEDS: SOD PHOS DI, MONO/K PHOS MONO 250 MG TABLET GT (08:02)
[2024-01-15] MEDS: SODIUM CHLORIDE TAB 1,000 MG TABLET.SOL 1000 MG GT ×2 (08:02→20:28)
--- NOTE | 2024-01-15 13:55 | PD.SAPROG ---
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 (2) Epilepsy, unspecified, not intractable, without status epilepticus: Status: Chronic (3) Essential (primary) hypertension: Status: Chronic (4) Tracheostomy status: Status: Chronic (5) Gastrostomy status: Status: Chronic (6) Chronic respiratory failure, unspecified whether with hypoxia or hypercapnia: Status: Chronic (7) Chronic hyponatremia: Status: Chronic SUBJECTIVE Fever:: none GI:: none Shortness of Breath:: none GI:: no complaints Pain:: none OBJECTIVE Most recent vital signs: Last Vital Signs Temp 97.2 F 01/19/24 17:41 Pulse 72 01/19/24 20:12 Resp 18 01/19/24 17:41 BP 150/83 H 01/19/24 20:12 Pulse Ox 100 01/19/24 17:41 O2 Del Method Blow-by 01/19/24 17:41 O2 Flow Rate 6 01/19/24 05:56 FiO2 28 01/19/24 05:56 Neurological:: alert Speech:: nods head, mouths words (sometimes) and appropriate Answers questions:: sometimes Respiratory:: shallow breathing Cardiovascular: RRR Abdomen: soft and nontender Extremities:: deformities Decubitus:: none Tracheostomy:: to blow by Feeding per:: G tube Complaints:: none ASSESSMENT & PLAN Assessment: 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 No pain issues, and remains comfortable. Ice chips for some oral gratification tried with success without any cough or aspiration Plan: All treatment reviewed and continued.
[2024-01-15] MEDS: LOSARTAN 100 MG TABLET GT (20:27)
[2024-01-15] MEDS: SENNOSIDES 8.6 MG TABLET 17.2 MG GT (20:28)
[2024-01-16] VITALS (7 sets, daily range): BP systolic 113–158; BP diastolic 71–90; PULSE 52–74; RESP 16–20; TEMP 36.1–36.2; O2SAT 97–100
[2024-01-16] MEDS: ESOMEPRAZOLE 40 MG GT (09:29)
[2024-01-16] MEDS: SODIUM CHLORIDE TAB 1,000 MG TABLET.SOL 1000 MG GT ×2 (09:29→20:14)
[2024-01-16] MEDS: SOD PHOS DI, MONO/K PHOS MONO 250 MG TABLET GT (09:29)
[2024-01-16] MEDS: MULTIVIT-MIN/IRON FUM/FOLIC AC 1 EACH TABLET GT (09:29)
[2024-01-16] MEDS: SENNOSIDES 8.6 MG TABLET 17.2 MG GT (20:14)
[2024-01-16] MEDS: LOSARTAN 100 MG TABLET GT (20:14)
[2024-01-17] VITALS (7 sets, daily range): BP systolic 130–154; BP diastolic 73–95; PULSE 57–71; RESP 16–19; TEMP 36.1–36.5; O2SAT 98–99
[2024-01-17] MEDS: SODIUM CHLORIDE TAB 1,000 MG TABLET.SOL 1000 MG GT ×2 (08:05→21:07)
[2024-01-17] MEDS: MULTIVIT-MIN/IRON FUM/FOLIC AC 1 EACH TABLET GT (08:05)
[2024-01-17] MEDS: ESOMEPRAZOLE 40 MG GT (08:05)
[2024-01-17] MEDS: SOD PHOS DI, MONO/K PHOS MONO 250 MG TABLET GT (08:05)
[2024-01-17] MEDS: LOSARTAN 100 MG TABLET GT (21:06)
[2024-01-17] MEDS: SENNOSIDES 8.6 MG TABLET 17.2 MG GT (21:07)
[2024-01-18] VITALS (7 sets, daily range): BP systolic 108–130; BP diastolic 63–85; PULSE 56–77; RESP 16–21; TEMP 36.1–36.4; O2SAT 98–99
[2024-01-18] MEDS: MULTIVIT-MIN/IRON FUM/FOLIC AC 1 EACH TABLET GT (09:09)
[2024-01-18] MEDS: ESOMEPRAZOLE 40 MG GT (09:09)
[2024-01-18] MEDS: SOD PHOS DI, MONO/K PHOS MONO 250 MG TABLET GT (09:09)
[2024-01-18] MEDS: SODIUM CHLORIDE TAB 1,000 MG TABLET.SOL 1000 MG GT ×2 (09:09→20:44)
[2024-01-18] MEDS: SENNOSIDES 8.6 MG TABLET 17.2 MG GT (20:44)
[2024-01-19] VITALS (7 sets, daily range): BP systolic 116–180; BP diastolic 76–90; PULSE 50–72; RESP 18–20; TEMP 35.9–36.4; O2SAT 97–100
[2024-01-19] MEDS: ESOMEPRAZOLE 40 MG GT (08:05)
[2024-01-19] MEDS: SOD PHOS DI, MONO/K PHOS MONO 250 MG TABLET GT (08:05)
[2024-01-19] MEDS: MULTIVIT-MIN/IRON FUM/FOLIC AC 1 EACH TABLET GT (08:06)
[2024-01-19] MEDS: SODIUM CHLORIDE TAB 1,000 MG TABLET.SOL 1000 MG GT ×2 (08:06→20:12)
[2024-01-19] MEDS: CARBAMIDE PEROXIDE OTIC SOL 15 ML BTL 5 DROP BOTH EARS (20:11)
[2024-01-19] MEDS: LOSARTAN 100 MG TABLET GT (20:12)
[2024-01-19] MEDS: SENNOSIDES 8.6 MG TABLET 17.2 MG GT (20:12)
--- NOTE | 2024-01-19 22:32 | PD.SAPROG ---
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 (2) Epilepsy, unspecified, not intractable, without status epilepticus: Status: Chronic (3) Essential (primary) hypertension: Status: Chronic (4) Tracheostomy status: Status: Chronic (5) Gastrostomy status: Status: Chronic (6) Chronic respiratory failure, unspecified whether with hypoxia or hypercapnia: Status: Chronic (7) Chronic hyponatremia: Status: Chronic SUBJECTIVE Fever:: none GI:: none Shortness of Breath:: none GI:: no complaints Pain:: none OBJECTIVE Most recent vital signs: Last Vital Signs Temp 97.2 F 01/19/24 17:41 Pulse 72 01/19/24 20:12 Resp 18 01/19/24 17:41 BP 150/83 H 01/19/24 20:12 Pulse Ox 100 01/19/24 17:41 O2 Del Method Blow-by 01/19/24 17:41 O2 Flow Rate 6 01/19/24 05:56 FiO2 28 01/19/24 05:56 Neurological:: alert Speech:: nods head, mouths words (sometimes) and appropriate Answers questions:: sometimes Respiratory:: shallow breathing Cardiovascular: RRR Abdomen: soft and nontender Extremities:: deformities Decubitus:: none Tracheostomy:: to blow by Feeding per:: G tube Complaints:: none ASSESSMENT & PLAN Assessment: 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 No pain issues, and remains comfortable. Ice chips for some oral gratification tried with success without any cough or aspiration Plan: All treatment reviewed and continued.
[2024-01-20] VITALS (7 sets, daily range): BP systolic 138–144; BP diastolic 81–86; PULSE 54–72; RESP 18–20; TEMP 36.1–36.4; O2SAT 94–98
[2024-01-20] MEDS: MULTIVIT-MIN/IRON FUM/FOLIC AC 1 EACH TABLET GT (09:00)
[2024-01-20] MEDS: SOD PHOS DI, MONO/K PHOS MONO 250 MG TABLET GT (09:00)
[2024-01-20] MEDS: ESOMEPRAZOLE 40 MG GT (09:00)
[2024-01-20] MEDS: CARBAMIDE PEROXIDE OTIC SOL 15 ML BTL 5 DROP BOTH EARS ×2 (09:00→20:42)
[2024-01-20] MEDS: SODIUM CHLORIDE TAB 1,000 MG TABLET.SOL 1000 MG GT ×2 (09:00→20:42)
[2024-01-20] MEDS: MAGNESIUM HYDROXIDE 30 ML ORAL SUSP ML GT (09:08)
[2024-01-20] MEDS: LOSARTAN 100 MG TABLET GT (20:42)
[2024-01-20] MEDS: SENNOSIDES 8.6 MG TABLET 17.2 MG GT (20:42)
[2024-01-21] VITALS (7 sets, daily range): BP systolic 96–153; BP diastolic 65–91; PULSE 50–62; RESP 16–20; TEMP 35.9–36.4; O2SAT 94–100
[2024-01-21] MEDS: CARBAMIDE PEROXIDE OTIC SOL 15 ML BTL 5 DROP BOTH EARS ×2 (08:07→21:52)
[2024-01-21] MEDS: ESOMEPRAZOLE 40 MG GT (08:08)
[2024-01-21] MEDS: SODIUM CHLORIDE TAB 1,000 MG TABLET.SOL 1000 MG GT ×2 (08:08→21:54)
[2024-01-21] MEDS: MULTIVIT-MIN/IRON FUM/FOLIC AC 1 EACH TABLET GT (08:08)
[2024-01-21] MEDS: SOD PHOS DI, MONO/K PHOS MONO 250 MG TABLET GT (08:08)
[2024-01-21] MEDS: SENNOSIDES 8.6 MG TABLET 17.2 MG GT (21:54)
[2024-01-22] VITALS (7 sets, daily range): BP systolic 102–159; BP diastolic 66–80; PULSE 50–71; RESP 16–20; TEMP 36.1–36.3; O2SAT 96–97
[2024-01-22] MEDS: SODIUM CHLORIDE TAB 1,000 MG TABLET.SOL 1000 MG GT ×2 (08:29→21:30)
[2024-01-22] MEDS: SOD PHOS DI, MONO/K PHOS MONO 250 MG TABLET GT (08:29)
[2024-01-22] MEDS: CARBAMIDE PEROXIDE OTIC SOL 15 ML BTL 5 DROP BOTH EARS (08:29)
[2024-01-22] MEDS: ESOMEPRAZOLE 40 MG GT (08:29)
[2024-01-22] MEDS: MULTIVIT-MIN/IRON FUM/FOLIC AC 1 EACH TABLET GT (08:29)
[2024-01-22] MEDS: SENNOSIDES 8.6 MG TABLET 17.2 MG GT (21:29)
[2024-01-23] VITALS: BP 140/97; PULSE 54; RESP 21; TEMP 36.3
[2024-01-23 06:00] VITALS: BP 145/87; PULSE 81; RESP 19; TEMP 36.1
[2024-01-23 06:27] VITALS: PULSE 70; RESP 17; O2SAT 97
[2024-01-23] MEDS: SOD PHOS DI, MONO/K PHOS MONO 250 MG TABLET GT (09:26)
[2024-01-23] MEDS: MULTIVIT-MIN/IRON FUM/FOLIC AC 1 EACH TABLET GT (09:26)
[2024-01-23] MEDS: ESOMEPRAZOLE 40 MG GT (09:26)
[2024-01-23] MEDS: SODIUM CHLORIDE TAB 1,000 MG TABLET.SOL 1000 MG GT ×2 (09:26→21:01)
[2024-01-23 12:00] VITALS: BP 110/78; PULSE 50; RESP 17; TEMP 36.9; O2SAT 97
[2024-01-23 17:59] VITALS: BP 139/85; PULSE 59; RESP 18; TEMP 36.4
[2024-01-23 21:00] VITALS: BP 139/85; PULSE 59
[2024-01-23] MEDS: LOSARTAN 100 MG TABLET GT (21:00)
[2024-01-23] MEDS: CARBAMIDE PEROXIDE OTIC SOL 15 ML BTL 5 DROP BOTH EARS (21:00)
[2024-01-23] MEDS: SENNOSIDES 8.6 MG TABLET 17.2 MG GT (21:01)
[2024-01-23] MEDS: ACETAMINOPHEN 325 MG TABLET 650 MG GT (21:01)
--- NOTE | 2024-01-23 23:10 | ESPR_ITS ---
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 (2) Epilepsy, unspecified, not intractable, without status epilepticus: Status: Chronic (3) Essential (primary) hypertension: Status: Chronic (4) Tracheostomy status: Status: Chronic (5) Gastrostomy status: Status: Chronic (6) Chronic respiratory failure, unspecified whether with hypoxia or hypercapnia: Status: Chronic (7) Chronic hyponatremia: Status: Chronic SUBJECTIVE Fever:: none GI:: none Shortness of Breath:: none GI:: no complaints Pain:: none OBJECTIVE Most recent vital signs: Last Vital Signs Temp 97.2 F 01/24/24 17:10 Pulse 60 01/24/24 21:05 Resp 19 01/24/24 17:10 BP 131/78 H 01/24/24 21:05 Pulse Ox 99 01/24/24 12:00 O2 Del Method Blow-by 01/24/24 06:00 O2 Flow Rate 6 01/24/24 07:07 FiO2 28 01/24/24 07:07 Neurological:: alert Speech:: nods head, mouths words (sometimes) and appropriate Answers questions:: sometimes Respiratory:: shallow breathing Cardiovascular: RRR Abdomen: soft and nontender Extremities:: deformities Decubitus:: none Tracheostomy:: to blow by Feeding per:: G tube Complaints:: none ASSESSMENT & PLAN Assessment: 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 No pain issues, and remains comfortable. Ice chips for some oral gratification tried with success without any cough or aspiration Plan: All treatment reviewed and continued.
[2024-01-24] VITALS (8 sets, daily range): BP systolic 103–139; BP diastolic 65–82; PULSE 56–68; RESP 16–20; TEMP 36.1–36.3; O2SAT 96–99
[2024-01-24] MEDS: ESOMEPRAZOLE 40 MG GT (08:01)
[2024-01-24] MEDS: SODIUM CHLORIDE TAB 1,000 MG TABLET.SOL 1000 MG GT ×2 (08:02→21:32)
[2024-01-24] MEDS: MULTIVIT-MIN/IRON FUM/FOLIC AC 1 EACH TABLET GT (08:02)
[2024-01-24] MEDS: SOD PHOS DI, MONO/K PHOS MONO 250 MG TABLET GT (08:02)
[2024-01-24] MEDS: MAGNESIUM HYDROXIDE 30 ML ORAL SUSP ML GT (09:22)
--- NOTE | 2024-01-24 14:06 | PC.SS ---
Room visit: Resident is laying in bed with head of the bed elevated with call light properly placed with no signs of distress. Resident has no changes in care or condition as she remains on blow by with trach in place and GT for medication and nutrition. She will continue to have all subacute care needs met by staff. This SSD will make daily contact with resident and offer support as needed.
[2024-01-24] MEDS: ACETAMINOPHEN 325 MG TABLET 650 MG GT (21:00)
[2024-01-24] MEDS: LOSARTAN 100 MG TABLET GT (21:05)
[2024-01-24] MEDS: SENNOSIDES 8.6 MG TABLET 17.2 MG GT (21:06)
[2024-01-25] VITALS: BP 92/60; PULSE 60; RESP 18; TEMP 36.1
[2024-01-25 06:00] VITALS: BP 117/76; PULSE 64; RESP 18; TEMP 36.2; O2SAT 95
[2024-01-25 07:55] VITALS: PULSE 63; RESP 16; O2SAT 97
[2024-01-25] MEDS: MULTIVIT-MIN/IRON FUM/FOLIC AC 1 EACH TABLET GT (09:11)
[2024-01-25] MEDS: SOD PHOS DI, MONO/K PHOS MONO 250 MG TABLET GT (09:11)
[2024-01-25] MEDS: SODIUM CHLORIDE TAB 1,000 MG TABLET.SOL 1000 MG GT ×2 (09:11→20:08)
[2024-01-25] MEDS: ESOMEPRAZOLE 40 MG GT (09:11)
[2024-01-25 11:15] VITALS: BP 118/75; PULSE 62; RESP 18; TEMP 36.1
[2024-01-25] MEDS: SODIUM PHOSPHATE,MONO-DIBASIC 133 ML ENEMA PR (14:00)
[2024-01-25 17:48] VITALS: BP 125/82; PULSE 59; RESP 18; TEMP 35.9; O2SAT 97
[2024-01-25 20:07] VITALS: BP 154/73; PULSE 58
[2024-01-25] MEDS: LOSARTAN 100 MG TABLET GT (20:07)
[2024-01-25] MEDS: SENNOSIDES 8.6 MG TABLET 17.2 MG GT (20:08)
[2024-01-25] MEDS: MAGNESIUM HYDROXIDE 30 ML ORAL SUSP ML GT (20:16)
[2024-01-26] VITALS (8 sets, daily range): BP systolic 135–150; BP diastolic 67–78; PULSE 58–73; RESP 16–21; TEMP 36.1–36.4; O2SAT 97–99
[2024-01-26] MEDS: ESOMEPRAZOLE 40 MG GT (08:27)
[2024-01-26] MEDS: SOD PHOS DI, MONO/K PHOS MONO 250 MG TABLET GT (08:28)
[2024-01-26] MEDS: SODIUM CHLORIDE TAB 1,000 MG TABLET.SOL 1000 MG GT ×2 (08:28→20:31)
[2024-01-26] MEDS: MULTIVIT-MIN/IRON FUM/FOLIC AC 1 EACH TABLET GT (08:28)
[2024-01-26] MEDS: SENNOSIDES 8.6 MG TABLET 17.2 MG GT (20:30)
[2024-01-26] MEDS: LOSARTAN 100 MG TABLET GT (20:30)
[2024-01-27] VITALS: BP 136/71; PULSE 65; RESP 20; TEMP 36.5; O2SAT 98
[2024-01-27 05:43] VITALS: BP 144/76; PULSE 64; RESP 20; TEMP 36.1; O2SAT 98
[2024-01-27 07:25] VITALS: PULSE 62; RESP 16; O2SAT 98
[2024-01-27] MEDS: ESOMEPRAZOLE 40 MG GT (08:57)
[2024-01-27] MEDS: SOD PHOS DI, MONO/K PHOS MONO 250 MG TABLET GT (08:58)
[2024-01-27] MEDS: SODIUM CHLORIDE TAB 1,000 MG TABLET.SOL 1000 MG GT ×2 (08:58→20:31)
[2024-01-27] MEDS: MULTIVIT-MIN/IRON FUM/FOLIC AC 1 EACH TABLET GT (08:58)
[2024-01-27 18:34] VITALS: PULSE 60; RESP 16; O2SAT 99
[2024-01-27 20:30] VITALS: BP 139/56; PULSE 56
[2024-01-27] MEDS: SENNOSIDES 8.6 MG TABLET 17.2 MG GT (20:30)
[2024-01-27] MEDS: LOSARTAN 100 MG TABLET GT (20:30)
--- NOTE | 2024-01-27 23:40 | PD.SAPROG ---
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 (2) Epilepsy, unspecified, not intractable, without status epilepticus: Status: Chronic (3) Essential (primary) hypertension: Status: Chronic (4) Tracheostomy status: Status: Chronic (5) Gastrostomy status: Status: Chronic (6) Chronic respiratory failure, unspecified whether with hypoxia or hypercapnia: Status: Chronic (7) Chronic hyponatremia: Status: Chronic SUBJECTIVE Fever:: none GI:: none Shortness of Breath:: none GI:: no complaints Pain:: none OBJECTIVE Most recent vital signs: Last Vital Signs Temp 96.9 F 01/27/24 05:43 Pulse 56 L 01/27/24 20:30 Resp 16 01/27/24 07:25 BP 139/56 H 01/27/24 20:30 Pulse Ox 98 01/27/24 07:25 O2 Del Method Blow-by 01/27/24 05:43 O2 Flow Rate 6 01/27/24 07:25 FiO2 28 01/27/24 07:25 Neurological:: alert Speech:: nods head, mouths words (sometimes) and appropriate Answers questions:: sometimes Respiratory:: shallow breathing Cardiovascular: RRR Abdomen: soft and nontender Extremities:: deformities Decubitus:: none Tracheostomy:: to blow by Feeding per:: G tube Complaints:: none ASSESSMENT & PLAN Assessment: 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 No pain issues, and remains comfortable. Ice chips for some oral gratification tried with success without any cough or aspiration Plan: All treatment reviewed and continued.
[2024-01-28] VITALS (7 sets, daily range): BP systolic 112–135; BP diastolic 72–79; PULSE 44–63; RESP 16–18; TEMP 35.9–36.1; O2SAT 97–99
[2024-01-28] MEDS: ESOMEPRAZOLE 40 MG GT (08:04)
[2024-01-28] MEDS: MULTIVIT-MIN/IRON FUM/FOLIC AC 1 EACH TABLET GT (08:05)
[2024-01-28] MEDS: SODIUM CHLORIDE TAB 1,000 MG TABLET.SOL 1000 MG GT ×2 (08:05→21:24)
[2024-01-28] MEDS: SOD PHOS DI, MONO/K PHOS MONO 250 MG TABLET GT (08:05)
[2024-01-28] MEDS: ACETAMINOPHEN 325 MG TABLET 650 MG GT (20:50)
[2024-01-28] MEDS: LOSARTAN 100 MG TABLET GT (21:23)
[2024-01-28] MEDS: SENNOSIDES 8.6 MG TABLET 17.2 MG GT (21:24)
[2024-01-29] VITALS (7 sets, daily range): BP systolic 106–139; BP diastolic 68–88; PULSE 45–56; RESP 16–20; TEMP 36–36.4; O2SAT 93–99
[2024-01-29] MEDS: ESOMEPRAZOLE 40 MG GT (08:07)
[2024-01-29] MEDS: MULTIVIT-MIN/IRON FUM/FOLIC AC 1 EACH TABLET GT (08:07)
[2024-01-29] MEDS: SOD PHOS DI, MONO/K PHOS MONO 250 MG TABLET GT (08:07)
[2024-01-29] MEDS: SODIUM CHLORIDE TAB 1,000 MG TABLET.SOL 1000 MG GT ×2 (08:07→20:39)
--- NOTE | 2024-01-29 14:40 | PD.SAPROG ---
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 (2) Epilepsy, unspecified, not intractable, without status epilepticus: Status: Chronic (3) Essential (primary) hypertension: Status: Chronic (4) Tracheostomy status: Status: Chronic (5) Gastrostomy status: Status: Chronic (6) Chronic respiratory failure, unspecified whether with hypoxia or hypercapnia: Status: Chronic (7) Chronic hyponatremia: Status: Chronic SUBJECTIVE Fever:: none GI:: none Shortness of Breath:: none GI:: no complaints Pain:: none OBJECTIVE Most recent vital signs: Last Vital Signs Temp 97.4 F 02/03/24 18:00 Pulse 70 02/03/24 18:00 Resp 18 02/03/24 18:00 BP 128/80 02/03/24 18:00 Pulse Ox 98 02/03/24 18:00 O2 Del Method Blow-by 02/03/24 18:00 O2 Flow Rate 6 02/03/24 18:00 FiO2 28 02/03/24 18:00 Neurological:: alert Speech:: nods head, mouths words (sometimes) and appropriate Answers questions:: sometimes Respiratory:: shallow breathing Cardiovascular: RRR Abdomen: soft and nontender Extremities:: deformities Decubitus:: none Tracheostomy:: to blow by Feeding per:: G tube Complaints:: none ASSESSMENT & PLAN Assessment: 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 No pain issues, and remains comfortable. Ice chips for some oral gratification tried with success without any cough or aspiration Plan: All treatment reviewed and continued.
[2024-01-29] MEDS: LOSARTAN 100 MG TABLET GT (20:38)
[2024-01-29] MEDS: SENNOSIDES 8.6 MG TABLET 17.2 MG GT (20:39)
[2024-01-30] VITALS (8 sets, daily range): BP systolic 103–143; BP diastolic 72–82; PULSE 54–70; RESP 16–19; TEMP 35.9–36.3; O2SAT 95–97
[2024-01-30] MEDS: MULTIVIT-MIN/IRON FUM/FOLIC AC 1 EACH TABLET GT (08:00)
[2024-01-30] MEDS: ESOMEPRAZOLE 40 MG GT (08:00)
[2024-01-30] MEDS: SODIUM CHLORIDE TAB 1,000 MG TABLET.SOL 1000 MG GT ×2 (08:00→20:41)
[2024-01-30] MEDS: SOD PHOS DI, MONO/K PHOS MONO 250 MG TABLET GT (08:00)
--- NOTE | 2024-01-30 17:17 | PC.NURSE ---
Resident received shower this morning. All treatments done, as well as trach care.
[2024-01-30] MEDS: SENNOSIDES 8.6 MG TABLET 17.2 MG GT (20:41)
[2024-01-30] MEDS: LOSARTAN 100 MG TABLET GT (20:41)
[2024-01-31] VITALS (7 sets, daily range): BP systolic 116–154; BP diastolic 69–90; PULSE 55–90; RESP 16–20; TEMP 36.1–36.2; O2SAT 96–98
[2024-01-31] MEDS: ESOMEPRAZOLE 40 MG GT (09:10)
[2024-01-31] MEDS: SODIUM CHLORIDE TAB 1,000 MG TABLET.SOL 1000 MG GT ×2 (09:10→20:12)
[2024-01-31] MEDS: MULTIVIT-MIN/IRON FUM/FOLIC AC 1 EACH TABLET GT (09:10)
[2024-01-31] MEDS: SOD PHOS DI, MONO/K PHOS MONO 250 MG TABLET GT (09:10)
--- NOTE | 2024-01-31 14:35 | PC.SS ---
Room visit: Resident is laying in bed with head of the bed elevated with call light properly placed with no signs of distress. Resident is on blow by with trach in place, GT in place for medication and nutrition. Resident will remain in current care and will have all subacute care needs met by staff. SSD will continue to make daily room visits and offer support as needed.
[2024-01-31] MEDS: LOSARTAN 100 MG TABLET GT (20:11)
[2024-01-31] MEDS: SENNOSIDES 8.6 MG TABLET 17.2 MG GT (20:11)
[2024-02-01] VITALS (7 sets, daily range): BP systolic 90–149; BP diastolic 61–90; PULSE 56–73; RESP 16–18; TEMP 36–36.3; O2SAT 97–98
[2024-02-01] MEDS: SOD PHOS DI, MONO/K PHOS MONO 250 MG TABLET GT (09:08)
[2024-02-01] MEDS: ESOMEPRAZOLE 40 MG GT (09:08)
[2024-02-01] MEDS: MULTIVIT-MIN/IRON FUM/FOLIC AC 1 EACH TABLET GT (09:09)
[2024-02-01] MEDS: SODIUM CHLORIDE TAB 1,000 MG TABLET.SOL 1000 MG GT ×2 (09:09→21:00)
[2024-02-01] MEDS: LOSARTAN 100 MG TABLET GT (21:00)
[2024-02-01] MEDS: SENNOSIDES 8.6 MG TABLET 17.2 MG GT (21:00)
[2024-02-02] VITALS (7 sets, daily range): BP systolic 125–147; BP diastolic 69–88; PULSE 57–68; RESP 16–18; TEMP 35.9–37; O2SAT 95–98
[2024-02-02] MEDS: SOD PHOS DI, MONO/K PHOS MONO 250 MG TABLET GT (09:11)
[2024-02-02] MEDS: MULTIVIT-MIN/IRON FUM/FOLIC AC 1 EACH TABLET GT (09:11)
[2024-02-02] MEDS: SODIUM CHLORIDE TAB 1,000 MG TABLET.SOL 1000 MG GT ×2 (09:11→20:10)
[2024-02-02] MEDS: ESOMEPRAZOLE 40 MG GT (09:11)
[2024-02-02] MEDS: LOSARTAN 100 MG TABLET GT (20:10)
[2024-02-02] MEDS: SENNOSIDES 8.6 MG TABLET 17.2 MG GT (20:10)
[2024-02-02] MEDS: MAGNESIUM HYDROXIDE 30 ML ORAL SUSP ML GT (21:06)
[2024-02-03] VITALS (7 sets, daily range): BP systolic 95–136; BP diastolic 63–84; PULSE 46–70; RESP 16–20; TEMP 36–36.3; O2SAT 96–100
[2024-02-03] MEDS: ESOMEPRAZOLE 40 MG GT (09:05)
[2024-02-03] MEDS: SOD PHOS DI, MONO/K PHOS MONO 250 MG TABLET GT (09:05)
[2024-02-03] MEDS: MULTIVIT-MIN/IRON FUM/FOLIC AC 1 EACH TABLET GT (09:05)
[2024-02-03] MEDS: SODIUM CHLORIDE TAB 1,000 MG TABLET.SOL 1000 MG GT ×2 (09:08→21:18)
--- NOTE | 2024-02-03 18:57 | ESPR_ITS ---
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 (2) Epilepsy, unspecified, not intractable, without status epilepticus: Status: Chronic (3) Essential (primary) hypertension: Status: Chronic (4) Tracheostomy status: Status: Chronic (5) Gastrostomy status: Status: Chronic (6) Chronic respiratory failure, unspecified whether with hypoxia or hypercapnia: Status: Chronic (7) Chronic hyponatremia: Status: Chronic SUBJECTIVE Fever:: none GI:: none Shortness of Breath:: none GI:: no complaints Pain:: none OBJECTIVE Most recent vital signs: Last Vital Signs Temp 97.4 F 02/03/24 18:00 Pulse 70 02/03/24 18:00 Resp 18 02/03/24 18:00 BP 128/80 02/03/24 18:00 Pulse Ox 98 02/03/24 18:00 O2 Del Method Blow-by 02/03/24 18:00 O2 Flow Rate 6 02/03/24 18:00 FiO2 28 02/03/24 18:00 Neurological:: alert Speech:: nods head, mouths words (sometimes) and appropriate Answers questions:: sometimes Respiratory:: shallow breathing Cardiovascular: RRR Abdomen: soft and nontender Extremities:: deformities Decubitus:: none Tracheostomy:: to blow by Feeding per:: G tube Complaints:: none ASSESSMENT & PLAN Assessment: 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 No pain issues, and remains comfortable. Ice chips for some oral gratification tried with success without any cough or aspiration Plan: All treatment reviewed and continued.
[2024-02-03] MEDS: LOSARTAN 100 MG TABLET GT (21:18)
[2024-02-03] MEDS: SENNOSIDES 8.6 MG TABLET 17.2 MG GT (21:18)
[2024-02-04] VITALS (7 sets, daily range): BP systolic 118–154; BP diastolic 76–88; PULSE 52–69; RESP 16–20; TEMP 36–36.3; O2SAT 94–97
[2024-02-04] MEDS: MULTIVIT-MIN/IRON FUM/FOLIC AC 1 EACH TABLET GT (09:10)
[2024-02-04] MEDS: ESOMEPRAZOLE 40 MG GT (09:10)
[2024-02-04] MEDS: SODIUM CHLORIDE TAB 1,000 MG TABLET.SOL 1000 MG GT ×2 (09:10→21:21)
[2024-02-04] MEDS: SOD PHOS DI, MONO/K PHOS MONO 250 MG TABLET GT (09:10)
[2024-02-04] MEDS: ACETAMINOPHEN 325 MG TABLET 650 MG GT (21:00)
[2024-02-04] MEDS: LOSARTAN 100 MG TABLET GT (21:20)
[2024-02-04] MEDS: SENNOSIDES 8.6 MG TABLET 17.2 MG GT (21:21)
[2024-02-05] VITALS (8 sets, daily range): BP systolic 142–159; BP diastolic 77–91; PULSE 50–63; RESP 16–20; TEMP 36.1–36.3; O2SAT 93–99
[2024-02-05] MEDS: SODIUM CHLORIDE TAB 1,000 MG TABLET.SOL 1000 MG GT ×2 (08:00→21:08)
[2024-02-05] MEDS: ESOMEPRAZOLE 40 MG GT (08:00)
[2024-02-05] MEDS: MULTIVIT-MIN/IRON FUM/FOLIC AC 1 EACH TABLET GT (08:00)
[2024-02-05] MEDS: SOD PHOS DI, MONO/K PHOS MONO 250 MG TABLET GT (08:00)
[2024-02-05] MEDS: MAGNESIUM HYDROXIDE 30 ML ORAL SUSP ML GT (10:00)
[2024-02-05] MEDS: SENNOSIDES 8.6 MG TABLET 17.2 MG GT (21:07)
[2024-02-05] MEDS: LOSARTAN 100 MG TABLET GT (21:07)
[2024-02-06] VITALS (7 sets, daily range): BP systolic 125–167; BP diastolic 79–90; PULSE 60–80; RESP 16–18; TEMP 36–36.2; O2SAT 93–98
[2024-02-06] MEDS: ESOMEPRAZOLE 40 MG GT (08:00)
[2024-02-06] MEDS: SOD PHOS DI, MONO/K PHOS MONO 250 MG TABLET GT (08:00)
[2024-02-06] MEDS: SODIUM CHLORIDE TAB 1,000 MG TABLET.SOL 1000 MG GT ×2 (08:01→21:41)
[2024-02-06] MEDS: MULTIVIT-MIN/IRON FUM/FOLIC AC 1 EACH TABLET GT (08:01)
[2024-02-06] MEDS: SENNOSIDES 8.6 MG TABLET 17.2 MG GT (21:41)
[2024-02-06] MEDS: LOSARTAN 100 MG TABLET GT (21:43)
[2024-02-07] VITALS (7 sets, daily range): BP systolic 106–141; BP diastolic 72–87; PULSE 51–74; RESP 16–20; TEMP 36–36.2; O2SAT 94–100
[2024-02-07] MEDS: MULTIVIT-MIN/IRON FUM/FOLIC AC 1 EACH TABLET GT (08:54)
[2024-02-07] MEDS: ESOMEPRAZOLE 40 MG GT (08:54)
[2024-02-07] MEDS: SOD PHOS DI, MONO/K PHOS MONO 250 MG TABLET GT (08:54)
[2024-02-07] MEDS: SODIUM CHLORIDE TAB 1,000 MG TABLET.SOL 1000 MG GT ×2 (08:54→20:18)
[2024-02-07] MEDS: LOSARTAN 100 MG TABLET GT (20:17)
[2024-02-07] MEDS: SENNOSIDES 8.6 MG TABLET 17.2 MG GT (20:18)
[2024-02-07] MEDS: MAGNESIUM HYDROXIDE 30 ML ORAL SUSP ML GT (21:30)
--- NOTE | 2024-02-07 23:18 | PD.SAPROG ---
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 (2) Epilepsy, unspecified, not intractable, without status epilepticus: Status: Chronic (3) Essential (primary) hypertension: Status: Chronic (4) Tracheostomy status: Status: Chronic (5) Gastrostomy status: Status: Chronic (6) Chronic respiratory failure, unspecified whether with hypoxia or hypercapnia: Status: Chronic (7) Chronic hyponatremia: Status: Chronic SUBJECTIVE Fever:: none GI:: none Shortness of Breath:: none GI:: no complaints Pain:: none OBJECTIVE Most recent vital signs: Last Vital Signs Temp 97.0 F 02/07/24 18:00 Pulse 74 02/07/24 20:17 Resp 18 02/07/24 18:09 BP 130/76 02/07/24 20:17 Pulse Ox 100 02/07/24 18:09 O2 Del Method Blow-by 02/07/24 06:00 O2 Flow Rate 6 02/07/24 18:09 FiO2 28 02/07/24 18:09 Neurological:: alert Speech:: nods head, mouths words (sometimes) and appropriate Answers questions:: sometimes Respiratory:: shallow breathing Cardiovascular: RRR Abdomen: soft and nontender Extremities:: deformities Decubitus:: none Tracheostomy:: to blow by Feeding per:: G tube Complaints:: none ASSESSMENT & PLAN Assessment: 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 No pain issues, and remains comfortable. Ice chips for some oral gratification tried with success without any cough or aspiration Plan: All treatment reviewed and continued.
[2024-02-08] VITALS (7 sets, daily range): BP systolic 119–145; BP diastolic 74–89; PULSE 55–80; RESP 16–22; TEMP 36–36.1; O2SAT 95–100
[2024-02-08] MEDS: SOD PHOS DI, MONO/K PHOS MONO 250 MG TABLET GT (09:04)
[2024-02-08] MEDS: ESOMEPRAZOLE 40 MG GT (09:04)
[2024-02-08] MEDS: MULTIVIT-MIN/IRON FUM/FOLIC AC 1 EACH TABLET GT (09:04)
[2024-02-08] MEDS: SODIUM CHLORIDE TAB 1,000 MG TABLET.SOL 1000 MG GT ×2 (09:05→20:15)
[2024-02-08] MEDS: LOSARTAN 100 MG TABLET GT (20:13)
[2024-02-08] MEDS: SENNOSIDES 8.6 MG TABLET 17.2 MG GT (20:15)
[2024-02-09] VITALS: BP 148/78; PULSE 64; RESP 22; TEMP 36
[2024-02-09 06:00] VITALS: BP 127/80; PULSE 61; RESP 22; TEMP 36.2; O2SAT 96
[2024-02-09 06:30] VITALS: PULSE 60; RESP 18; O2SAT 97
[2024-02-09] MEDS: SOD PHOS DI, MONO/K PHOS MONO 250 MG TABLET GT (08:16)
[2024-02-09] MEDS: SODIUM CHLORIDE TAB 1,000 MG TABLET.SOL 1000 MG GT ×2 (08:16→20:31)
[2024-02-09] MEDS: ESOMEPRAZOLE 40 MG GT (08:16)
[2024-02-09] MEDS: MULTIVIT-MIN/IRON FUM/FOLIC AC 1 EACH TABLET GT (08:16)
[2024-02-09 12:00] VITALS: BP 132/66; PULSE 74; RESP 19; TEMP 36.2
[2024-02-09 18:00] VITALS: BP 132/72; PULSE 72; RESP 20; TEMP 36.4
[2024-02-09 20:29] VITALS: BP 174/84; PULSE 60
[2024-02-09] MEDS: LOSARTAN 100 MG TABLET GT (20:29)
[2024-02-09] MEDS: SENNOSIDES 8.6 MG TABLET 17.2 MG GT (20:30)
[2024-02-10] VITALS (8 sets, daily range): BP systolic 131–171; BP diastolic 75–97; PULSE 50–66; RESP 16–20; TEMP 35.7–36.2; O2SAT 95–100
[2024-02-10] MEDS: SOD PHOS DI, MONO/K PHOS MONO 250 MG TABLET GT (08:01)
[2024-02-10] MEDS: ESOMEPRAZOLE 40 MG GT (08:01)
[2024-02-10] MEDS: MULTIVIT-MIN/IRON FUM/FOLIC AC 1 EACH TABLET GT (08:02)
[2024-02-10] MEDS: SODIUM CHLORIDE TAB 1,000 MG TABLET.SOL 1000 MG GT ×2 (08:02→20:23)
[2024-02-10] MEDS: LOSARTAN 100 MG TABLET GT (20:22)
[2024-02-10] MEDS: SENNOSIDES 8.6 MG TABLET 17.2 MG GT (20:23)
[2024-02-11] VITALS: BP 136/80; PULSE 60; RESP 18; TEMP 36.1
[2024-02-11 06:00] VITALS: BP 138/83; PULSE 60; RESP 18; TEMP 36.1; O2SAT 97
[2024-02-11 06:08] VITALS: PULSE 54; RESP 20; O2SAT 98
[2024-02-11] MEDS: ESOMEPRAZOLE 40 MG GT (08:48)
[2024-02-11] MEDS: SOD PHOS DI, MONO/K PHOS MONO 250 MG TABLET GT (08:48)
[2024-02-11] MEDS: MULTIVIT-MIN/IRON FUM/FOLIC AC 1 EACH TABLET GT (08:49)
[2024-02-11] MEDS: SODIUM CHLORIDE TAB 1,000 MG TABLET.SOL 1000 MG GT ×2 (08:49→20:24)
--- NOTE | 2024-02-11 14:30 | PD.SAPROG ---
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 (2) Epilepsy, unspecified, not intractable, without status epilepticus: Status: Chronic (3) Essential (primary) hypertension: Status: Chronic (4) Tracheostomy status: Status: Chronic (5) Gastrostomy status: Status: Chronic (6) Chronic respiratory failure, unspecified whether with hypoxia or hypercapnia: Status: Chronic (7) Chronic hyponatremia: Status: Chronic SUBJECTIVE Fever:: none GI:: none Shortness of Breath:: none GI:: no complaints Pain:: none OBJECTIVE Most recent vital signs: Last Vital Signs Temp 97.7 F 02/13/24 00:00 Pulse 82 02/13/24 00:00 Resp 20 02/13/24 00:00 BP 158/82 H 02/13/24 00:00 Pulse Ox 99 02/12/24 19:30 O2 Del Method Blow-by 02/12/24 17:35 O2 Flow Rate 6 02/12/24 19:30 FiO2 28 02/12/24 19:30 Neurological:: alert Speech:: nods head, mouths words (sometimes) and appropriate Answers questions:: sometimes Respiratory:: shallow breathing Cardiovascular: RRR Abdomen: soft and nontender Extremities:: deformities Decubitus:: none Tracheostomy:: to blow by Feeding per:: G tube Complaints:: none ASSESSMENT & PLAN Assessment: 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 No pain issues, and remains comfortable. Ice chips for some oral gratification tried with success without any cough or aspiration Plan: All treatment reviewed and continued.
[2024-02-11 18:50] VITALS: PULSE 60; RESP 18; O2SAT 99
[2024-02-11 20:23] VITALS: BP 122/77; PULSE 63
[2024-02-11] MEDS: LOSARTAN 100 MG TABLET GT (20:23)
[2024-02-11] MEDS: SENNOSIDES 8.6 MG TABLET 17.2 MG GT (20:23)
[2024-02-12] VITALS (7 sets, daily range): BP systolic 113–164; BP diastolic 65–87; PULSE 52–63; RESP 16–18; TEMP 35.9–36.3; O2SAT 96–99
[2024-02-12] MEDS: SOD PHOS DI, MONO/K PHOS MONO 250 MG TABLET GT (10:00)
[2024-02-12] MEDS: SODIUM CHLORIDE TAB 1,000 MG TABLET.SOL 1000 MG GT ×2 (10:00→21:07)
[2024-02-12] MEDS: ESOMEPRAZOLE 40 MG GT (10:00)
[2024-02-12] MEDS: MULTIVIT-MIN/IRON FUM/FOLIC AC 1 EACH TABLET GT (10:00)
[2024-02-12] MEDS: LOSARTAN 100 MG TABLET GT (21:05)
[2024-02-12] MEDS: SENNOSIDES 8.6 MG TABLET 17.2 MG GT (21:06)
[2024-02-13] VITALS (7 sets, daily range): BP systolic 115–158; BP diastolic 62–93; PULSE 57–82; RESP 18–20; TEMP 36–36.5; O2SAT 97–99
[2024-02-13] MEDS: SOD PHOS DI, MONO/K PHOS MONO 250 MG TABLET GT (09:24)
[2024-02-13] MEDS: MULTIVIT-MIN/IRON FUM/FOLIC AC 1 EACH TABLET GT (09:24)
[2024-02-13] MEDS: ESOMEPRAZOLE 40 MG GT (09:24)
[2024-02-13] MEDS: SODIUM CHLORIDE TAB 1,000 MG TABLET.SOL 1000 MG GT ×2 (09:25→21:18)
[2024-02-13] MEDS: LOSARTAN 100 MG TABLET GT (21:17)
[2024-02-13] MEDS: SENNOSIDES 8.6 MG TABLET 17.2 MG GT (21:18)
[2024-02-14] VITALS (7 sets, daily range): BP systolic 130–150; BP diastolic 74–92; PULSE 65–77; RESP 18–23; TEMP 36.1–36.2; O2SAT 93–100
[2024-02-14] MEDS: ESOMEPRAZOLE 40 MG GT (09:25)
[2024-02-14] MEDS: SOD PHOS DI, MONO/K PHOS MONO 250 MG TABLET GT (09:26)
[2024-02-14] MEDS: MULTIVIT-MIN/IRON FUM/FOLIC AC 1 EACH TABLET GT (09:28)
[2024-02-14] MEDS: SODIUM CHLORIDE TAB 1,000 MG TABLET.SOL 1000 MG GT ×2 (09:29→21:03)
[2024-02-14] MEDS: LOSARTAN 100 MG TABLET GT (21:02)
[2024-02-14] MEDS: SENNOSIDES 8.6 MG TABLET 17.2 MG GT (21:03)
[2024-02-15] VITALS: BP 119/82; PULSE 65; RESP 18; TEMP 36.3
[2024-02-15 06:00] VITALS: BP 138/81; PULSE 75; RESP 20; TEMP 36.1; O2SAT 97
[2024-02-15 06:50] VITALS: PULSE 64; RESP 18; O2SAT 95
[2024-02-15] MEDS: MULTIVIT-MIN/IRON FUM/FOLIC AC 1 EACH TABLET GT (08:05)
[2024-02-15] MEDS: SODIUM CHLORIDE TAB 1,000 MG TABLET.SOL 1000 MG GT ×2 (08:05→20:41)
[2024-02-15] MEDS: SOD PHOS DI, MONO/K PHOS MONO 250 MG TABLET GT (08:05)
[2024-02-15] MEDS: ESOMEPRAZOLE 40 MG GT (08:05)
[2024-02-15 12:00] VITALS: BP 141/84; PULSE 69; RESP 18; TEMP 36
--- NOTE | 2024-02-15 14:23 | PC.SS ---
Room visit:Resident is laying in bed with head of the bed elevated with call light properly placed with no signs of distress. Resident is well groomed with call light properly placed with no signs of distress. Resident will remain in current care as there are no changes in care or condition, resident remains on blow by with trach in place and GT for medication and nutrition. Resident will continue to have all subacute care needs met by staff.
--- NOTE | 2024-02-15 14:40 | PD.SAPROG ---
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 (2) Epilepsy, unspecified, not intractable, without status epilepticus: Status: Chronic (3) Essential (primary) hypertension: Status: Chronic (4) Tracheostomy status: Status: Chronic (5) Gastrostomy status: Status: Chronic (6) Chronic respiratory failure, unspecified whether with hypoxia or hypercapnia: Status: Chronic (7) Chronic hyponatremia: Status: Chronic SUBJECTIVE Fever:: none GI:: none Shortness of Breath:: none GI:: no complaints Pain:: none OBJECTIVE Most recent vital signs: Last Vital Signs Temp 97.0 F 02/16/24 18:00 Pulse 59 L 02/16/24 20:44 Resp 16 02/16/24 18:31 BP 128/81 02/16/24 20:44 Pulse Ox 97 02/16/24 18:31 O2 Del Method Blow-by 02/16/24 05:57 O2 Flow Rate 6 02/16/24 18:31 FiO2 28 02/16/24 18:31 Neurological:: alert Speech:: nods head, mouths words (sometimes) and appropriate Answers questions:: sometimes Respiratory:: shallow breathing Cardiovascular: RRR Abdomen: soft and nontender Extremities:: deformities Decubitus:: none Tracheostomy:: to blow by Feeding per:: G tube Complaints:: none ASSESSMENT & PLAN Assessment: 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 No pain issues, and remains comfortable. Ice chips for some oral gratification tried with success without any cough or aspiration Plan: All treatment reviewed and continued.
[2024-02-15 18:47] VITALS: PULSE 59; RESP 18; O2SAT 95
[2024-02-15 20:39] VITALS: BP 151/75; PULSE 58
[2024-02-15] MEDS: LOSARTAN 100 MG TABLET GT (20:39)
[2024-02-15] MEDS: SENNOSIDES 8.6 MG TABLET 17.2 MG GT (20:41)
[2024-02-16] VITALS (7 sets, daily range): BP systolic 128–156; BP diastolic 63–88; PULSE 48–61; RESP 16–20; TEMP 36–36.2; O2SAT 94–98
[2024-02-16] MEDS: MULTIVIT-MIN/IRON FUM/FOLIC AC 1 EACH TABLET GT (09:11)
[2024-02-16] MEDS: SODIUM CHLORIDE TAB 1,000 MG TABLET.SOL 1000 MG GT ×2 (09:11→20:45)
[2024-02-16] MEDS: SOD PHOS DI, MONO/K PHOS MONO 250 MG TABLET GT (09:11)
[2024-02-16] MEDS: ESOMEPRAZOLE 40 MG GT (09:11)
[2024-02-16] MEDS: SENNOSIDES 8.6 MG TABLET 17.2 MG GT (20:44)
[2024-02-16] MEDS: LOSARTAN 100 MG TABLET GT (20:44)
[2024-02-17] VITALS (7 sets, daily range): BP systolic 133–165; BP diastolic 68–92; PULSE 54–80; RESP 18–20; TEMP 36.1–36.2; O2SAT 95–99
[2024-02-17] MEDS: MULTIVIT-MIN/IRON FUM/FOLIC AC 1 EACH TABLET GT (08:06)
[2024-02-17] MEDS: SOD PHOS DI, MONO/K PHOS MONO 250 MG TABLET GT (08:06)
[2024-02-17] MEDS: SODIUM CHLORIDE TAB 1,000 MG TABLET.SOL 1000 MG GT ×2 (08:06→20:10)
[2024-02-17] MEDS: ESOMEPRAZOLE 40 MG GT (08:06)
[2024-02-17] MEDS: MAGNESIUM HYDROXIDE 30 ML ORAL SUSP ML GT (09:11)
[2024-02-17] MEDS: SENNOSIDES 8.6 MG TABLET 17.2 MG GT (20:09)
[2024-02-17] MEDS: LOSARTAN 100 MG TABLET GT (20:09)
[2024-02-17] MEDS: ACETAMINOPHEN 325 MG TABLET 650 MG GT (20:10)
[2024-02-18] VITALS (7 sets, daily range): BP systolic 129–158; BP diastolic 76–94; PULSE 63–81; RESP 16–18; TEMP 36–36.4; O2SAT 95–98
[2024-02-18] MEDS: SODIUM CHLORIDE TAB 1,000 MG TABLET.SOL 1000 MG GT ×2 (08:49→20:23)
[2024-02-18] MEDS: SOD PHOS DI, MONO/K PHOS MONO 250 MG TABLET GT (08:49)
[2024-02-18] MEDS: ESOMEPRAZOLE 40 MG GT (08:49)
[2024-02-18] MEDS: MULTIVIT-MIN/IRON FUM/FOLIC AC 1 EACH TABLET GT (08:49)
[2024-02-18] MEDS: LOSARTAN 100 MG TABLET GT (20:23)
[2024-02-18] MEDS: SENNOSIDES 8.6 MG TABLET 17.2 MG GT (20:23)
[2024-02-19] VITALS (7 sets, daily range): BP systolic 119–170; BP diastolic 69–91; PULSE 56–91; RESP 16–18; TEMP 36.3–36.9; O2SAT 95–98
[2024-02-19] MEDS: ESOMEPRAZOLE 40 MG GT (09:25)
[2024-02-19] MEDS: SODIUM CHLORIDE TAB 1,000 MG TABLET.SOL 1000 MG GT ×2 (09:26→20:07)
[2024-02-19] MEDS: SOD PHOS DI, MONO/K PHOS MONO 250 MG TABLET GT (09:26)
[2024-02-19] MEDS: MULTIVIT-MIN/IRON FUM/FOLIC AC 1 EACH TABLET GT (09:26)
[2024-02-19] MEDS: LOSARTAN 100 MG TABLET GT (20:07)
[2024-02-19] MEDS: SENNOSIDES 8.6 MG TABLET 17.2 MG GT (20:07)
--- NOTE | 2024-02-19 21:57 | ESPR_ITS ---
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 (2) Epilepsy, unspecified, not intractable, without status epilepticus: Status: Chronic (3) Essential (primary) hypertension: Status: Chronic (4) Tracheostomy status: Status: Chronic (5) Gastrostomy status: Status: Chronic (6) Chronic respiratory failure, unspecified whether with hypoxia or hypercapnia: Status: Chronic (7) Chronic hyponatremia: Status: Chronic SUBJECTIVE Fever:: none GI:: none Shortness of Breath:: none GI:: no complaints Pain:: none OBJECTIVE Most recent vital signs: Last Vital Signs Temp 97.3 F 02/19/24 17:46 Pulse 56 L 02/19/24 20:20 Resp 18 02/19/24 20:20 BP 170/91 H 02/19/24 20:07 Pulse Ox 96 02/19/24 20:20 O2 Del Method Blow-by 02/19/24 06:00 O2 Flow Rate 6 02/19/24 20:20 FiO2 28 02/19/24 20:20 Neurological:: alert Speech:: nods head, mouths words (sometimes) and appropriate Answers questions:: sometimes Respiratory:: shallow breathing Cardiovascular: RRR Abdomen: soft and nontender Extremities:: deformities Decubitus:: none Tracheostomy:: to blow by Feeding per:: G tube Complaints:: none ASSESSMENT & PLAN Assessment: 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 No pain issues, and remains comfortable. Ice chips for some oral gratification tried with success without any cough or aspiration Plan: All treatment reviewed and continued.
[2024-02-20] VITALS: BP 150/85; PULSE 71; RESP 20; TEMP 36.2
[2024-02-20 06:00] VITALS: BP 147/84; PULSE 93; RESP 20; TEMP 36.3; O2SAT 98
[2024-02-20 07:10] VITALS: PULSE 68; RESP 18; O2SAT 95
[2024-02-20] MEDS: ESOMEPRAZOLE 40 MG GT (08:10)
[2024-02-20] MEDS: SOD PHOS DI, MONO/K PHOS MONO 250 MG TABLET GT (08:10)
[2024-02-20] MEDS: SODIUM CHLORIDE TAB 1,000 MG TABLET.SOL 1000 MG GT ×2 (08:11→21:13)
[2024-02-20] MEDS: MULTIVIT-MIN/IRON FUM/FOLIC AC 1 EACH TABLET GT (08:11)
[2024-02-20 11:49] VITALS: BP 123/69; PULSE 71; RESP 16; TEMP 36.1
[2024-02-20 17:58] VITALS: BP 162/79; PULSE 77; RESP 20; TEMP 36.3; O2SAT 97
[2024-02-20 21:12] VITALS: BP 157/88; PULSE 111
[2024-02-20] MEDS: LOSARTAN 100 MG TABLET GT (21:12)
[2024-02-20] MEDS: MAGNESIUM HYDROXIDE 30 ML ORAL SUSP ML GT (21:13)
[2024-02-20] MEDS: SENNOSIDES 8.6 MG TABLET 17.2 MG GT (21:13)
[2024-02-20] MEDS: ACETAMINOPHEN 325 MG TABLET 650 MG GT (21:13)
[2024-02-21] VITALS (7 sets, daily range): BP systolic 120–158; BP diastolic 73–99; PULSE 76–104; RESP 16–26; TEMP 36.1–36.5; O2SAT 88–100
[2024-02-21] MEDS: ESOMEPRAZOLE 40 MG GT (08:01)
[2024-02-21] MEDS: SOD PHOS DI, MONO/K PHOS MONO 250 MG TABLET GT (08:01)
[2024-02-21] MEDS: SODIUM CHLORIDE TAB 1,000 MG TABLET.SOL 1000 MG GT ×2 (08:01→21:40)
[2024-02-21] MEDS: MULTIVIT-MIN/IRON FUM/FOLIC AC 1 EACH TABLET GT (08:01)
--- NOTE | 2024-02-21 11:54 | PC.SS ---
Room visit: Resident is laying in bed with head of the bed elevated with call light properly placed with no signs of distress. Resident has no changes in care or condition. Resident remains on blow by with trach in place and GT for medication and nutrition. Resident will continue to have all subacute care needs met by staff. SSD will continue to make daily room visits and monitor for changes in mood and behavior.
[2024-02-21] MEDS: ALBUTEROL INHALER 200 PUFF/INH INHALER INH (16:20)
[2024-02-21] MEDS: ACETAMINOPHEN 325 MG TABLET 650 MG GT ×2 (17:10→23:21)
[2024-02-21] MEDS: SENNOSIDES 8.6 MG TABLET 17.2 MG GT (21:40)
[2024-02-21] MEDS: LOSARTAN 100 MG TABLET GT (21:40)
[2024-02-22] VITALS: BP 175/95; PULSE 68; RESP 24; TEMP 36
[2024-02-22 05:51] VITALS: BP 161/84; PULSE 62; RESP 20; TEMP 36; O2SAT 100
[2024-02-22 07:10] VITALS: PULSE 69; RESP 20; O2SAT 99
[2024-02-22] MEDS: ESOMEPRAZOLE 40 MG GT (09:08)
[2024-02-22] MEDS: SODIUM CHLORIDE TAB 1,000 MG TABLET.SOL 1000 MG GT ×2 (09:09→21:31)
[2024-02-22] MEDS: MULTIVIT-MIN/IRON FUM/FOLIC AC 1 EACH TABLET GT (09:09)
[2024-02-22] MEDS: SOD PHOS DI, MONO/K PHOS MONO 250 MG TABLET GT (09:09)
[2024-02-22 12:00] VITALS: BP 149/70; PULSE 58; RESP 17; TEMP 36
[2024-02-22 17:47] VITALS: BP 152/83; PULSE 74; RESP 17; TEMP 36.7
[2024-02-22 21:31] VITALS: BP 131/82; PULSE 67
[2024-02-22] MEDS: LOSARTAN 100 MG TABLET GT (21:31)
[2024-02-22] MEDS: SENNOSIDES 8.6 MG TABLET 17.2 MG GT (21:31)
[2024-02-23] VITALS (8 sets, daily range): BP systolic 133–155; BP diastolic 72–86; PULSE 63–75; RESP 16–20; TEMP 35.9–36.3; O2SAT 96–98
--- NOTE | 2024-02-23 08:04 | PC.NURSE ---
BM entered per report. MACHINE STEAK TENDERIZER did not chart.
[2024-02-23] MEDS: ESOMEPRAZOLE 40 MG GT (08:23)
[2024-02-23] MEDS: SOD PHOS DI, MONO/K PHOS MONO 250 MG TABLET GT (08:23)
[2024-02-23] MEDS: SODIUM CHLORIDE TAB 1,000 MG TABLET.SOL 1000 MG GT ×2 (08:23→21:32)
[2024-02-23] MEDS: MULTIVIT-MIN/IRON FUM/FOLIC AC 1 EACH TABLET GT (08:23)
--- NOTE | 2024-02-23 19:50 | PD.SAPROG ---
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 (2) Epilepsy, unspecified, not intractable, without status epilepticus: Status: Chronic (3) Essential (primary) hypertension: Status: Chronic (4) Tracheostomy status: Status: Chronic (5) Gastrostomy status: Status: Chronic (6) Chronic respiratory failure, unspecified whether with hypoxia or hypercapnia: Status: Chronic (7) Chronic hyponatremia: Status: Chronic SUBJECTIVE Fever:: none GI:: none Shortness of Breath:: none GI:: no complaints Pain:: none OBJECTIVE Most recent vital signs: Last Vital Signs Temp 96.7 F L 02/23/24 17:21 Pulse 75 02/23/24 06:05 Resp 17 02/23/24 17:21 BP 137/72 H 02/23/24 17:21 Pulse Ox 98 02/23/24 06:05 O2 Del Method Blow-by 02/21/24 17:50 O2 Flow Rate 6 02/23/24 06:05 FiO2 28 02/23/24 06:05 Neurological:: alert Speech:: nods head, mouths words (sometimes) and appropriate Answers questions:: sometimes Respiratory:: shallow breathing Cardiovascular: RRR Abdomen: soft and nontender Extremities:: deformities Decubitus:: none Tracheostomy:: to blow by Feeding per:: G tube Complaints:: none ASSESSMENT & PLAN Assessment: 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 No pain issues, and remains comfortable. Ice chips for some oral gratification tried with success without any cough or aspiration Plan: All treatment reviewed and continued.
[2024-02-23] MEDS: SENNOSIDES 8.6 MG TABLET 17.2 MG GT (21:32)
[2024-02-23] MEDS: LOSARTAN 100 MG TABLET GT (21:32)
[2024-02-24] VITALS (7 sets, daily range): BP systolic 113–155; BP diastolic 67–89; PULSE 69–86; RESP 17–20; TEMP 36–36.2; O2SAT 96–99
[2024-02-24] MEDS: MULTIVIT-MIN/IRON FUM/FOLIC AC 1 EACH TABLET GT (09:12)
[2024-02-24] MEDS: SOD PHOS DI, MONO/K PHOS MONO 250 MG TABLET GT (09:12)
[2024-02-24] MEDS: SODIUM CHLORIDE TAB 1,000 MG TABLET.SOL 1000 MG GT ×2 (09:12→21:19)
[2024-02-24] MEDS: ESOMEPRAZOLE 40 MG GT (09:13)
[2024-02-24] MEDS: SENNOSIDES 8.6 MG TABLET 17.2 MG GT (21:18)
[2024-02-24] MEDS: LOSARTAN 100 MG TABLET GT (21:18)
[2024-02-25] VITALS (7 sets, daily range): BP systolic 145–151; BP diastolic 75–93; PULSE 61–74; RESP 16–18; TEMP 36.1–36.4; O2SAT 96–97
[2024-02-25] MEDS: SOD PHOS DI, MONO/K PHOS MONO 250 MG TABLET GT (10:15)
[2024-02-25] MEDS: ESOMEPRAZOLE 40 MG GT (10:15)
[2024-02-25] MEDS: MULTIVIT-MIN/IRON FUM/FOLIC AC 1 EACH TABLET GT (10:15)
[2024-02-25] MEDS: SODIUM CHLORIDE TAB 1,000 MG TABLET.SOL 1000 MG GT ×2 (10:16→21:14)
[2024-02-25] MEDS: LOSARTAN 100 MG TABLET GT (21:13)
[2024-02-25] MEDS: SENNOSIDES 8.6 MG TABLET 17.2 MG GT (21:14)
[2024-02-26] VITALS: BP 126/71; PULSE 76; RESP 16; TEMP 36.2
[2024-02-26 06:00] VITALS: BP 131/76; PULSE 80; RESP 17; TEMP 36.3; O2SAT 97
[2024-02-26 06:22] VITALS: PULSE 72; RESP 18; O2SAT 98
[2024-02-26] MEDS: ESOMEPRAZOLE 40 MG GT (08:00)
[2024-02-26] MEDS: SOD PHOS DI, MONO/K PHOS MONO 250 MG TABLET GT (08:00)
[2024-02-26] MEDS: MULTIVIT-MIN/IRON FUM/FOLIC AC 1 EACH TABLET GT (08:01)
[2024-02-26] MEDS: SODIUM CHLORIDE TAB 1,000 MG TABLET.SOL 1000 MG GT ×2 (08:01→20:45)
[2024-02-26 12:00] VITALS: BP 148/76; PULSE 60; RESP 17; TEMP 36.1
[2024-02-26 18:00] VITALS: BP 151/74; PULSE 72; RESP 18; TEMP 36
[2024-02-26 20:44] VITALS: BP 168/92; PULSE 62
[2024-02-26] MEDS: SENNOSIDES 8.6 MG TABLET 17.2 MG GT (20:44)
[2024-02-26] MEDS: LOSARTAN 100 MG TABLET GT (20:44)
[2024-02-27] VITALS: BP 137/91; PULSE 62; RESP 18; TEMP 36.1
[2024-02-27 04:10] VITALS: PULSE 63; RESP 16; O2SAT 97
[2024-02-27 06:37] VITALS: PULSE 62; RESP 16; O2SAT 98
[2024-02-27] MEDS: MULTIVIT-MIN/IRON FUM/FOLIC AC 1 EACH TABLET GT (09:08)
[2024-02-27] MEDS: SOD PHOS DI, MONO/K PHOS MONO 250 MG TABLET GT (09:08)
[2024-02-27] MEDS: ESOMEPRAZOLE 40 MG GT (09:08)
[2024-02-27] MEDS: SODIUM CHLORIDE TAB 1,000 MG TABLET.SOL 1000 MG GT ×2 (09:08→21:23)
[2024-02-27 12:00] VITALS: BP 147/79; PULSE 56; RESP 20; TEMP 35.9
--- NOTE | 2024-02-27 14:50 | PD.SAPROG ---
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 (2) Epilepsy, unspecified, not intractable, without status epilepticus: Status: Chronic (3) Essential (primary) hypertension: Status: Chronic (4) Tracheostomy status: Status: Chronic (5) Gastrostomy status: Status: Chronic (6) Chronic respiratory failure, unspecified whether with hypoxia or hypercapnia: Status: Chronic (7) Chronic hyponatremia: Status: Chronic SUBJECTIVE Fever:: none GI:: none Shortness of Breath:: none GI:: no complaints Pain:: none OBJECTIVE Most recent vital signs: Last Vital Signs Temp 97.3 F 02/28/24 17:54 Pulse 73 02/28/24 17:54 Resp 20 02/28/24 17:54 BP 138/83 H 02/28/24 17:54 Pulse Ox 96 02/28/24 12:00 O2 Del Method Blow-by 02/28/24 12:00 O2 Flow Rate 6 02/28/24 12:00 FiO2 28 02/28/24 12:00 Neurological:: alert Speech:: nods head, mouths words (sometimes) and appropriate Answers questions:: sometimes Respiratory:: shallow breathing Cardiovascular: RRR Abdomen: soft and nontender Extremities:: deformities Decubitus:: none Tracheostomy:: to blow by Feeding per:: G tube Complaints:: none ASSESSMENT & PLAN Assessment: 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 No pain issues, and remains comfortable. Ice chips for some oral gratification tried with success without any cough or aspiration Plan: All treatment reviewed and continued.
[2024-02-27 18:00] VITALS: BP 136/75; PULSE 77; RESP 20; TEMP 36.2; O2SAT 96
[2024-02-27 21:22] VITALS: BP 127/82; PULSE 69
[2024-02-27] MEDS: LOSARTAN 100 MG TABLET GT (21:22)
[2024-02-27] MEDS: SENNOSIDES 8.6 MG TABLET 17.2 MG GT (21:23)
[2024-02-27] MEDS: ACETAMINOPHEN 325 MG TABLET 650 MG GT (21:24)
[2024-02-28] VITALS (7 sets, daily range): BP systolic 138–176; BP diastolic 78–83; PULSE 61–74; RESP 18–20; TEMP 35.9–36.3; O2SAT 96–99
[2024-02-28] MEDS: ACETAMINOPHEN 325 MG TABLET 650 MG GT ×2 (05:29→21:22)
[2024-02-28] MEDS: ESOMEPRAZOLE 40 MG GT (09:04)
[2024-02-28] MEDS: MULTIVIT-MIN/IRON FUM/FOLIC AC 1 EACH TABLET GT (09:05)
[2024-02-28] MEDS: SODIUM CHLORIDE TAB 1,000 MG TABLET.SOL 1000 MG GT ×2 (09:05→21:22)
[2024-02-28] MEDS: SOD PHOS DI, MONO/K PHOS MONO 250 MG TABLET GT (09:05)
[2024-02-28] MEDS: LOSARTAN 100 MG TABLET GT (21:22)
[2024-02-28] MEDS: SENNOSIDES 8.6 MG TABLET 17.2 MG GT (21:22)
[2024-02-29] VITALS (8 sets, daily range): BP systolic 127–147; BP diastolic 76–84; PULSE 54–68; RESP 16–21; TEMP 36.1–36.6; O2SAT 96–99
[2024-02-29] MEDS: SODIUM CHLORIDE TAB 1,000 MG TABLET.SOL 1000 MG GT ×2 (08:01→20:23)
[2024-02-29] MEDS: MULTIVIT-MIN/IRON FUM/FOLIC AC 1 EACH TABLET GT (08:01)
[2024-02-29] MEDS: ESOMEPRAZOLE 40 MG GT (08:01)
[2024-02-29] MEDS: SOD PHOS DI, MONO/K PHOS MONO 250 MG TABLET GT (08:01)
[2024-02-29] MEDS: LOSARTAN 100 MG TABLET GT (20:22)
[2024-02-29] MEDS: SENNOSIDES 8.6 MG TABLET 17.2 MG GT (20:23)
--- NOTE | 2024-02-29 21:15 | ESPR_ITS ---
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 (2) Epilepsy, unspecified, not intractable, without status epilepticus: Status: Chronic (3) Essential (primary) hypertension: Status: Chronic (4) Tracheostomy status: Status: Chronic (5) Gastrostomy status: Status: Chronic (6) Chronic respiratory failure, unspecified whether with hypoxia or hypercapnia: Status: Chronic (7) Chronic hyponatremia: Status: Chronic SUBJECTIVE Fever:: none GI:: none Shortness of Breath:: none GI:: no complaints Pain:: none OBJECTIVE Most recent vital signs: Last Vital Signs Temp 97.5 F 02/29/24 17:52 Pulse 63 02/29/24 20:22 Resp 21 H 02/29/24 17:52 BP 127/76 02/29/24 20:22 Pulse Ox 98 02/29/24 12:00 O2 Del Method Blow-by 02/29/24 12:00 O2 Flow Rate 6 02/29/24 12:00 FiO2 28 02/29/24 12:00 Neurological:: alert Speech:: nods head, mouths words (sometimes) and appropriate Answers questions:: sometimes Respiratory:: shallow breathing Cardiovascular: RRR Abdomen: soft and nontender Extremities:: deformities Decubitus:: none Tracheostomy:: to blow by Feeding per:: G tube Complaints:: none ASSESSMENT & PLAN Assessment: 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 No pain issues, and remains comfortable. Ice chips for some oral gratification tried with success without any cough or aspiration Plan: All treatment reviewed and continued.
[2024-03-01] VITALS (8 sets, daily range): BP systolic 125–176; BP diastolic 77–94; PULSE 48–80; RESP 16–20; TEMP 35.9–36.5; O2SAT 94–99
[2024-03-01] MEDS: ESOMEPRAZOLE 40 MG GT (08:48)
[2024-03-01] MEDS: SODIUM CHLORIDE TAB 1,000 MG TABLET.SOL 1000 MG GT ×2 (08:49→22:30)
[2024-03-01] MEDS: MULTIVIT-MIN/IRON FUM/FOLIC AC 1 EACH TABLET GT (08:49)
[2024-03-01] MEDS: SOD PHOS DI, MONO/K PHOS MONO 250 MG TABLET GT (08:49)
[2024-03-01] MEDS: SENNOSIDES 8.6 MG TABLET 17.2 MG GT (22:28)
[2024-03-01] MEDS: LOSARTAN 100 MG TABLET GT (22:30)
[2024-03-02 06:00] VITALS: BP 140/86; PULSE 84; RESP 16; TEMP 36.2
[2024-03-02 06:33] LABS: Basophils # (Auto) 0.0 Thou/mm3 (0.0-0.2); Basophils % (Auto) 0 % (0-2.5); Eosinophils # (Auto) 0.1 Thou/mm3 (0.0-0.5); Eosinophils % (Auto) 1 % (0-10); Hematocrit 40.0 % (36.0-46.0); Hemoglobin 13.4 g/dL (12.0-16.0); Immature Granulocytes Auto 0.01 Thou/mm3 (0.00-0.00); Lymphocytes # (Auto) 1.8 Thou/mm3 (1.0-4.8); Lymphocytes % (Auto) 25 % (10-50); Mean Corpuscular HGB Conc 33.5 g/dl (31.0-37.0); Mean Corpuscular Hemoglobin 30.0 pg (25.0-35.0); Mean Corpuscular Volume 90 fL (80-100); Monocytes # (Auto) 0.6 Thou/mm3 (0.0-0.8); Monocytes % (Auto) 9 % (0-12); Neutrophils # (Auto) 4.7 Thou/mm3 (1.8-7.7); Neutrophils % (Auto) 65 % (37-80); Nucleated Red Blood Cell # 0.00 Thou/mm3 (0.00-0.00); Nucleated Red Blood Cell % 0 /100 WBC (0); Platelet Count 264 Thou/mm3 (140-440); RDW Standard Deviation 45.7 fL (36.4-46.3); Red Blood Count 4.46 Miln/mm3 (4.00-5.20); White Blood Count 7.3 Thou/mm3 (3.6-11.0)
[2024-03-02 07:35] VITALS: PULSE 58; RESP 18; RESP 20; O2SAT 97
[2024-03-02] MEDS: ESOMEPRAZOLE 40 MG GT (08:00)
[2024-03-02] MEDS: MULTIVIT-MIN/IRON FUM/FOLIC AC 1 EACH TABLET GT (08:00)
[2024-03-02] MEDS: SOD PHOS DI, MONO/K PHOS MONO 250 MG TABLET GT (08:00)
[2024-03-02] MEDS: SODIUM CHLORIDE TAB 1,000 MG TABLET.SOL 1000 MG GT ×2 (08:00→21:01)
[2024-03-02 12:00] VITALS: BP 142/80; PULSE 70; RESP 19; TEMP 36.1
[2024-03-02 18:00] VITALS: BP 133/78; PULSE 60; RESP 16; TEMP 36.2; O2SAT 97
[2024-03-02 18:25] VITALS: PULSE 76; RESP 18; O2SAT 93
[2024-03-02 20:58] VITALS: BP 159/78; PULSE 61
[2024-03-02] MEDS: SENNOSIDES 8.6 MG TABLET 17.2 MG GT (20:58)
[2024-03-02] MEDS: LOSARTAN 100 MG TABLET GT (20:58)
[2024-03-03] VITALS: BP 135/98; PULSE 75; RESP 18; TEMP 36.1
[2024-03-03 06:00] VITALS: BP 137/76; PULSE 78; RESP 16; TEMP 36.1; O2SAT 98
[2024-03-03 07:10] VITALS: PULSE 60; RESP 18; O2SAT 97
[2024-03-03] MEDS: ESOMEPRAZOLE 40 MG GT (09:09)
[2024-03-03] MEDS: MULTIVIT-MIN/IRON FUM/FOLIC AC 1 EACH TABLET GT (09:09)
[2024-03-03] MEDS: SOD PHOS DI, MONO/K PHOS MONO 250 MG TABLET GT (09:09)
[2024-03-03] MEDS: SODIUM CHLORIDE TAB 1,000 MG TABLET.SOL 1000 MG GT ×2 (09:09→21:39)
[2024-03-03 12:00] VITALS: BP 116/73; PULSE 56; RESP 17; TEMP 36
[2024-03-03 17:57] VITALS: BP 150/75; PULSE 67; RESP 19; TEMP 36.1
[2024-03-03 21:37] VITALS: BP 148/85; PULSE 68
[2024-03-03] MEDS: LOSARTAN 100 MG TABLET GT (21:37)
[2024-03-03] MEDS: SENNOSIDES 8.6 MG TABLET 17.2 MG GT (21:38)
[2024-03-04] VITALS (7 sets, daily range): BP systolic 117–150; BP diastolic 65–85; PULSE 56–81; RESP 16–21; TEMP 36–36.6; O2SAT 95–99
[2024-03-04] MEDS: ESOMEPRAZOLE 40 MG GT (08:14)
[2024-03-04] MEDS: SOD PHOS DI, MONO/K PHOS MONO 250 MG TABLET GT (08:15)
[2024-03-04] MEDS: SODIUM CHLORIDE TAB 1,000 MG TABLET.SOL 1000 MG GT ×2 (08:15→20:36)
[2024-03-04] MEDS: MULTIVIT-MIN/IRON FUM/FOLIC AC 1 EACH TABLET GT (08:15)
[2024-03-04] MEDS: SENNOSIDES 8.6 MG TABLET 17.2 MG GT (20:36)
[2024-03-04] MEDS: LOSARTAN 100 MG TABLET GT (20:36)
[2024-03-05] VITALS: BP 135/85; PULSE 72; RESP 20; TEMP 36.4
[2024-03-05 03:30] VITALS: PULSE 60; RESP 16; O2SAT 99
[2024-03-05 06:00] VITALS: BP 108/70; PULSE 63; RESP 17; TEMP 36.2; O2SAT 96
[2024-03-05 07:50] VITALS: PULSE 61; RESP 18; O2SAT 98
[2024-03-05] MEDS: ESOMEPRAZOLE 40 MG GT (09:07)
[2024-03-05] MEDS: MULTIVIT-MIN/IRON FUM/FOLIC AC 1 EACH TABLET GT (09:08)
[2024-03-05] MEDS: SOD PHOS DI, MONO/K PHOS MONO 250 MG TABLET GT (09:08)
[2024-03-05] MEDS: SODIUM CHLORIDE TAB 1,000 MG TABLET.SOL 1000 MG GT ×2 (09:09→21:06)
--- NOTE | 2024-03-05 18:12 | PD.SAPROG ---
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 (2) Epilepsy, unspecified, not intractable, without status epilepticus: Status: Chronic (3) Essential (primary) hypertension: Status: Chronic (4) Tracheostomy status: Status: Chronic (5) Gastrostomy status: Status: Chronic (6) Chronic respiratory failure, unspecified whether with hypoxia or hypercapnia: Status: Chronic (7) Chronic hyponatremia: Status: Chronic SUBJECTIVE Fever:: none GI:: none Shortness of Breath:: none GI:: no complaints Pain:: none OBJECTIVE Most recent vital signs: Last Vital Signs Temp 97.1 F 03/05/24 06:00 Pulse 61 03/05/24 07:50 Resp 18 03/05/24 07:50 BP 108/70 03/05/24 06:00 Pulse Ox 98 03/05/24 07:50 O2 Del Method Blow-by 03/05/24 06:00 O2 Flow Rate 6 03/05/24 07:50 FiO2 28 03/05/24 07:50 Neurological:: alert Speech:: nods head, mouths words (sometimes) and appropriate Answers questions:: sometimes Respiratory:: shallow breathing Cardiovascular: RRR Abdomen: soft and nontender Extremities:: deformities Decubitus:: none Tracheostomy:: to blow by Feeding per:: G tube Complaints:: none ASSESSMENT & PLAN Assessment: 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 No pain issues, and remains comfortable. Ice chips for some oral gratification tried with success without any cough or aspiration Plan: All treatment reviewed and continued.
[2024-03-05 19:25] VITALS: PULSE 58; RESP 18; RESP 20; O2SAT 98
[2024-03-05 21:05] VITALS: BP 95/77; PULSE 58
[2024-03-05] MEDS: SENNOSIDES 8.6 MG TABLET 17.2 MG GT (21:06)
[2024-03-05] MEDS: ACETAMINOPHEN 325 MG TABLET 650 MG GT (21:09)
[2024-03-06] VITALS (8 sets, daily range): BP systolic 113–128; BP diastolic 73–80; PULSE 49–66; RESP 17–20; TEMP 36.1–36.2; O2SAT 95–100
[2024-03-06] MEDS: ESOMEPRAZOLE 40 MG GT (08:04)
[2024-03-06] MEDS: SOD PHOS DI, MONO/K PHOS MONO 250 MG TABLET GT (08:04)
[2024-03-06] MEDS: MULTIVIT-MIN/IRON FUM/FOLIC AC 1 EACH TABLET GT (08:05)
[2024-03-06] MEDS: SODIUM CHLORIDE TAB 1,000 MG TABLET.SOL 1000 MG GT ×2 (08:05→20:51)
[2024-03-06] MEDS: LOSARTAN 100 MG TABLET GT (20:51)
[2024-03-06] MEDS: SENNOSIDES 8.6 MG TABLET 17.2 MG GT (20:51)
[2024-03-06] MEDS: ACETAMINOPHEN 325 MG TABLET 650 MG GT (20:52)
[2024-03-07] VITALS: BP 117/77; PULSE 56; RESP 20; TEMP 35.9
[2024-03-07 05:56] VITALS: BP 145/80; PULSE 58; RESP 20; TEMP 36.1; O2SAT 96
[2024-03-07 06:20] VITALS: PULSE 53; RESP 18; RESP 20; O2SAT 96
[2024-03-07] MEDS: MULTIVIT-MIN/IRON FUM/FOLIC AC 1 EACH TABLET GT (09:53)
[2024-03-07] MEDS: ESOMEPRAZOLE 40 MG GT (09:53)
[2024-03-07] MEDS: SOD PHOS DI, MONO/K PHOS MONO 250 MG TABLET GT (09:53)
[2024-03-07] MEDS: SODIUM CHLORIDE TAB 1,000 MG TABLET.SOL 1000 MG GT ×2 (09:53→21:13)
[2024-03-07 12:00] VITALS: BP 141/69; PULSE 47; RESP 20; TEMP 36.1
--- NOTE | 2024-03-07 14:51 | PC.SS ---
Room visit: Resident is laying in bed with no change in care or condition. Resident remains on blow by with trach in place. Resident has GT in place for medication and nutrition. Resident is unable to make needs known, total care. Resident will remain in current care and will have all subacute care needs met by staff.
[2024-03-07 18:00] VITALS: BP 126/71; PULSE 51; RESP 22; TEMP 36.1; O2SAT 97
[2024-03-07 21:12] VITALS: BP 136/79; PULSE 53
[2024-03-07] MEDS: LOSARTAN 100 MG TABLET GT (21:12)
[2024-03-07] MEDS: SENNOSIDES 8.6 MG TABLET 17.2 MG GT (21:13)
[2024-03-08] VITALS (8 sets, daily range): BP systolic 104–171; BP diastolic 58–91; PULSE 56–84; RESP 16–18; TEMP 36–36.1; O2SAT 96–99
[2024-03-08] MEDS: ESOMEPRAZOLE 40 MG GT (09:17)
[2024-03-08] MEDS: MULTIVIT-MIN/IRON FUM/FOLIC AC 1 EACH TABLET GT (09:18)
[2024-03-08] MEDS: SODIUM CHLORIDE TAB 1,000 MG TABLET.SOL 1000 MG GT ×2 (09:18→20:20)
[2024-03-08] MEDS: SOD PHOS DI, MONO/K PHOS MONO 250 MG TABLET GT (09:18)
[2024-03-08] MEDS: LOSARTAN 100 MG TABLET GT (20:19)
[2024-03-08] MEDS: SENNOSIDES 8.6 MG TABLET 17.2 MG GT (20:20)
[2024-03-09] VITALS (7 sets, daily range): BP systolic 136–160; BP diastolic 79–89; PULSE 58–88; RESP 16–20; TEMP 36–36.3; O2SAT 96–98
[2024-03-09] MEDS: SOD PHOS DI, MONO/K PHOS MONO 250 MG TABLET GT (09:20)
[2024-03-09] MEDS: SODIUM CHLORIDE TAB 1,000 MG TABLET.SOL 1000 MG GT ×2 (09:20→20:43)
[2024-03-09] MEDS: ESOMEPRAZOLE 40 MG GT (09:20)
[2024-03-09] MEDS: MULTIVIT-MIN/IRON FUM/FOLIC AC 1 EACH TABLET GT (09:20)
--- NOTE | 2024-03-09 18:30 | PD.SAPROG ---
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 (2) Epilepsy, unspecified, not intractable, without status epilepticus: Status: Chronic (3) Essential (primary) hypertension: Status: Chronic (4) Tracheostomy status: Status: Chronic (5) Gastrostomy status: Status: Chronic (6) Chronic respiratory failure, unspecified whether with hypoxia or hypercapnia: Status: Chronic (7) Chronic hyponatremia: Status: Chronic SUBJECTIVE Fever:: none GI:: none Shortness of Breath:: none GI:: no complaints Pain:: none OBJECTIVE Most recent vital signs: Last Vital Signs Temp 96.9 F 03/09/24 17:52 Pulse 69 03/09/24 17:52 Resp 17 03/09/24 17:52 BP 143/85 H 03/09/24 17:52 Pulse Ox 98 03/09/24 07:15 O2 Del Method Blow-by 03/06/24 18:00 O2 Flow Rate 6 03/09/24 07:15 FiO2 28 03/09/24 07:15 Neurological:: alert Speech:: nods head, mouths words (sometimes) and appropriate Answers questions:: sometimes Respiratory:: shallow breathing Cardiovascular: RRR Abdomen: soft and nontender Extremities:: deformities Decubitus:: none Tracheostomy:: to blow by Feeding per:: G tube Complaints:: none ASSESSMENT & PLAN Assessment: 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 No pain issues, and remains comfortable. Ice chips for some oral gratification tried with success without any cough or aspiration Plan: All treatment reviewed and continued.
[2024-03-09] MEDS: SENNOSIDES 8.6 MG TABLET 17.2 MG GT (20:42)
[2024-03-09] MEDS: LOSARTAN 100 MG TABLET GT (20:42)
[2024-03-10] VITALS: BP 155/81; PULSE 62; RESP 20; TEMP 36
[2024-03-10 07:20] VITALS: PULSE 63; RESP 18; O2SAT 97
[2024-03-10] MEDS: SOD PHOS DI, MONO/K PHOS MONO 250 MG TABLET GT (09:41)
[2024-03-10] MEDS: MULTIVIT-MIN/IRON FUM/FOLIC AC 1 EACH TABLET GT (09:41)
[2024-03-10] MEDS: ESOMEPRAZOLE 40 MG GT (09:41)
[2024-03-10] MEDS: SODIUM CHLORIDE TAB 1,000 MG TABLET.SOL 1000 MG GT ×2 (09:41→21:21)
[2024-03-10 12:00] VITALS: BP 161/77; PULSE 61; RESP 17; TEMP 36.1
[2024-03-10 17:35] VITALS: PULSE 66; RESP 18; O2SAT 94
[2024-03-10 18:00] VITALS: BP 146/73; RESP 16; TEMP 36.2; O2SAT 98
[2024-03-10 21:20] VITALS: BP 144/84; PULSE 71
[2024-03-10] MEDS: LOSARTAN 100 MG TABLET GT (21:20)
[2024-03-10] MEDS: SENNOSIDES 8.6 MG TABLET 17.2 MG GT (21:21)
[2024-03-10] MEDS: MAGNESIUM HYDROXIDE 30 ML ORAL SUSP ML GT (21:24)
[2024-03-11] VITALS (7 sets, daily range): BP systolic 103–141; BP diastolic 69–88; PULSE 61–69; RESP 17–19; TEMP 36.1; O2SAT 95–98
[2024-03-11] MEDS: SOD PHOS DI, MONO/K PHOS MONO 250 MG TABLET GT (10:09)
[2024-03-11] MEDS: ESOMEPRAZOLE 40 MG GT (10:09)
[2024-03-11] MEDS: MULTIVIT-MIN/IRON FUM/FOLIC AC 1 EACH TABLET GT (10:10)
[2024-03-11] MEDS: SODIUM CHLORIDE TAB 1,000 MG TABLET.SOL 1000 MG GT ×2 (10:10→20:39)
[2024-03-11] MEDS: SENNOSIDES 8.6 MG TABLET 17.2 MG GT (20:39)
[2024-03-11] MEDS: LOSARTAN 100 MG TABLET GT (20:39)
[2024-03-12] VITALS (7 sets, daily range): BP systolic 103–148; BP diastolic 66–79; PULSE 54–81; RESP 17–20; TEMP 35.8–36.3; O2SAT 97–98
[2024-03-12] MEDS: ESOMEPRAZOLE 40 MG GT (09:31)
[2024-03-12] MEDS: SOD PHOS DI, MONO/K PHOS MONO 250 MG TABLET GT (09:31)
[2024-03-12] MEDS: MULTIVIT-MIN/IRON FUM/FOLIC AC 1 EACH TABLET GT (09:31)
[2024-03-12] MEDS: SODIUM CHLORIDE TAB 1,000 MG TABLET.SOL 1000 MG GT ×2 (09:31→20:11)
[2024-03-12] MEDS: SENNOSIDES 8.6 MG TABLET 17.2 MG GT (20:10)
[2024-03-12] MEDS: LOSARTAN 100 MG TABLET GT (20:10)
[2024-03-13] VITALS: BP 116/74; PULSE 58; RESP 20; TEMP 36.1
[2024-03-13 06:00] VITALS: BP 102/67; PULSE 50; RESP 20; TEMP 36.1; O2SAT 97
[2024-03-13 07:25] VITALS: PULSE 71; RESP 18; O2SAT 98
[2024-03-13] MEDS: ESOMEPRAZOLE 40 MG GT (08:54)
[2024-03-13] MEDS: SODIUM CHLORIDE TAB 1,000 MG TABLET.SOL 1000 MG GT ×2 (08:55→20:14)
[2024-03-13] MEDS: MULTIVIT-MIN/IRON FUM/FOLIC AC 1 EACH TABLET GT (08:55)
[2024-03-13] MEDS: SOD PHOS DI, MONO/K PHOS MONO 250 MG TABLET GT (08:55)
--- NOTE | 2024-03-13 11:19 | PC.SS ---
Room visit: Resident is laying in bed with head of the bed elevated with call light properly placed. Resident has no changes in care or condition, she remains on blow by with trach in place and GT in place for medication and nutrition. Resident will remain in current care as she is not ready to DC to lower level of care, due to heavy and complicated care regimen she will continue to have all subacute care needs met by staff. SSD will continue to make daily contact with resident and monitor for changes in mood and behavior.
[2024-03-13 12:00] VITALS: BP 121/74; PULSE 56; RESP 17; TEMP 35.8
[2024-03-13 17:53] VITALS: BP 101/72; PULSE 51; RESP 16; TEMP 35.9; O2SAT 100
[2024-03-13 20:13] VITALS: BP 160/80; PULSE 61
[2024-03-13] MEDS: LOSARTAN 100 MG TABLET GT (20:13)
[2024-03-13] MEDS: SENNOSIDES 8.6 MG TABLET 17.2 MG GT (20:14)
--- NOTE | 2024-03-13 21:10 | PD.SAPROG ---
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 (2) Epilepsy, unspecified, not intractable, without status epilepticus: Status: Chronic (3) Essential (primary) hypertension: Status: Chronic (4) Tracheostomy status: Status: Chronic (5) Gastrostomy status: Status: Chronic (6) Chronic respiratory failure, unspecified whether with hypoxia or hypercapnia: Status: Chronic (7) Chronic hyponatremia: Status: Chronic SUBJECTIVE Fever:: none GI:: none Shortness of Breath:: none GI:: no complaints Pain:: none OBJECTIVE Most recent vital signs: Last Vital Signs Temp 96.6 F L 03/13/24 17:53 Pulse 61 03/13/24 20:13 Resp 16 03/13/24 17:53 BP 160/80 H 03/13/24 20:13 Pulse Ox 100 03/13/24 17:53 O2 Del Method Blow-by 03/13/24 06:00 O2 Flow Rate 6 03/13/24 07:25 FiO2 28 03/13/24 07:25 Neurological:: alert Speech:: nods head, mouths words (sometimes) and appropriate Answers questions:: sometimes Respiratory:: shallow breathing Cardiovascular: RRR Abdomen: soft and nontender Extremities:: deformities Decubitus:: none Tracheostomy:: to blow by Feeding per:: G tube Complaints:: none ASSESSMENT & PLAN Assessment: Pt fully dependent for senior living care. No pain issues, and remains comfortable. Ice chips for some oral gratification tried with success without any cough or aspiration and continued Plan: All treatment reviewed and continued.
[2024-03-14] VITALS (8 sets, daily range): BP systolic 101–142; BP diastolic 61–74; PULSE 48–83; RESP 16–18; TEMP 35.8–36.1; O2SAT 96–99
--- NOTE | 2024-03-14 00:01 | PD.SAPROG ---
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 (2) Epilepsy, unspecified, not intractable, without status epilepticus: Status: Chronic (3) Essential (primary) hypertension: Status: Chronic (4) Tracheostomy status: Status: Chronic (5) Gastrostomy status: Status: Chronic (6) Chronic respiratory failure, unspecified whether with hypoxia or hypercapnia: Status: Chronic (7) Chronic hyponatremia: Status: Chronic SUBJECTIVE Fever:: none GI:: none Shortness of Breath:: none GI:: no complaints Pain:: none OBJECTIVE Most recent vital signs: Last Vital Signs Temp 96.6 F L 03/13/24 17:53 Pulse 61 03/13/24 20:13 Resp 16 03/13/24 17:53 BP 160/80 H 03/13/24 20:13 Pulse Ox 100 03/13/24 17:53 O2 Del Method Blow-by 03/13/24 06:00 O2 Flow Rate 6 03/13/24 07:25 FiO2 28 03/13/24 07:25 Neurological:: alert Speech:: nods head, mouths words (sometimes) and appropriate Answers questions:: sometimes Respiratory:: shallow breathing Cardiovascular: RRR Abdomen: soft and nontender Extremities:: deformities Decubitus:: none Tracheostomy:: to blow by Feeding per:: G tube Complaints:: none ASSESSMENT & PLAN Assessment: Pt fully dependent for longterm care. No pain issues, and remains comfortable. Ice chips for some oral gratification tried with success without any cough or aspiration and continued Plan: All treatment reviewed and continued.
[2024-03-14] MEDS: ESOMEPRAZOLE 40 MG GT (09:11)
[2024-03-14] MEDS: MULTIVIT-MIN/IRON FUM/FOLIC AC 1 EACH TABLET GT (09:11)
[2024-03-14] MEDS: SOD PHOS DI, MONO/K PHOS MONO 250 MG TABLET GT (09:11)
[2024-03-14] MEDS: SODIUM CHLORIDE TAB 1,000 MG TABLET.SOL 1000 MG GT ×2 (09:12→21:38)
[2024-03-14] MEDS: LOSARTAN 100 MG TABLET GT (21:37)
[2024-03-14] MEDS: SENNOSIDES 8.6 MG TABLET 17.2 MG GT (21:38)
[2024-03-15] VITALS (7 sets, daily range): BP systolic 100–136; BP diastolic 56–86; PULSE 52–71; RESP 16–20; TEMP 35.6–36.1; O2SAT 96–99
[2024-03-15] MEDS: SOD PHOS DI, MONO/K PHOS MONO 250 MG TABLET GT (09:27)
[2024-03-15] MEDS: ESOMEPRAZOLE 40 MG GT (09:27)
[2024-03-15] MEDS: MULTIVIT-MIN/IRON FUM/FOLIC AC 1 EACH TABLET GT (09:27)
[2024-03-15] MEDS: SODIUM CHLORIDE TAB 1,000 MG TABLET.SOL 1000 MG GT ×2 (09:27→20:32)
[2024-03-15] MEDS: LOSARTAN 100 MG TABLET GT (20:31)
[2024-03-15] MEDS: SENNOSIDES 8.6 MG TABLET 17.2 MG GT (20:32)
[2024-03-16] VITALS (7 sets, daily range): BP systolic 134–158; BP diastolic 78–88; PULSE 55–74; RESP 16–20; TEMP 36–36.2; O2SAT 98
[2024-03-16] MEDS: SODIUM CHLORIDE TAB 1,000 MG TABLET.SOL 1000 MG GT ×2 (09:24→21:30)
[2024-03-16] MEDS: ESOMEPRAZOLE 40 MG GT (09:24)
[2024-03-16] MEDS: MULTIVIT-MIN/IRON FUM/FOLIC AC 1 EACH TABLET GT (09:24)
[2024-03-16] MEDS: SOD PHOS DI, MONO/K PHOS MONO 250 MG TABLET GT (09:24)
[2024-03-16] MEDS: LOSARTAN 100 MG TABLET GT (21:29)
[2024-03-16] MEDS: SENNOSIDES 8.6 MG TABLET 17.2 MG GT (21:30)
[2024-03-17] VITALS (7 sets, daily range): BP systolic 106–164; BP diastolic 75–85; PULSE 56–73; RESP 17–20; TEMP 36.1–36.2; O2SAT 94–98
[2024-03-17] MEDS: MULTIVIT-MIN/IRON FUM/FOLIC AC 1 EACH TABLET GT (09:57)
[2024-03-17] MEDS: SOD PHOS DI, MONO/K PHOS MONO 250 MG TABLET GT (09:57)
[2024-03-17] MEDS: ESOMEPRAZOLE 40 MG GT (09:57)
[2024-03-17] MEDS: SODIUM CHLORIDE TAB 1,000 MG TABLET.SOL 1000 MG GT ×2 (09:57→21:11)
--- NOTE | 2024-03-17 16:39 | PC.NURSE ---
Seen by Dr Gonsalez, no new orders made
[2024-03-17] MEDS: LOSARTAN 100 MG TABLET GT (21:10)
[2024-03-17] MEDS: SENNOSIDES 8.6 MG TABLET 17.2 MG GT (21:11)
--- NOTE | 2024-03-17 22:05 | ESPR_ITS ---
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 (2) Epilepsy, unspecified, not intractable, without status epilepticus: Status: Chronic (3) Essential (primary) hypertension: Status: Chronic (4) Tracheostomy status: Status: Chronic (5) Gastrostomy status: Status: Chronic (6) Chronic respiratory failure, unspecified whether with hypoxia or hypercapnia: Status: Chronic (7) Chronic hyponatremia: Status: Chronic SUBJECTIVE Fever:: none GI:: none Shortness of Breath:: none GI:: no complaints Pain:: none OBJECTIVE Most recent vital signs: Last Vital Signs Temp 96.9 F 03/17/24 17:20 Pulse 69 03/17/24 21:10 Resp 18 03/17/24 19:54 BP 121/85 H 03/17/24 21:10 Pulse Ox 96 03/17/24 19:54 O2 Del Method Blow-by 03/17/24 17:20 O2 Flow Rate 6 03/17/24 19:54 FiO2 28 03/17/24 19:54 Neurological:: alert Speech:: nods head, mouths words (sometimes) and appropriate Answers questions:: sometimes Respiratory:: shallow breathing Cardiovascular: RRR Abdomen: soft and nontender Extremities:: deformities Decubitus:: none Tracheostomy:: to blow by Feeding per:: G tube Complaints:: none ASSESSMENT & PLAN Assessment: 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 No pain issues, and remains comfortable. Ice chips for some oral gratification tried with success without any cough or aspiration and continued.Remains fully dependent for care. Plan: All treatment reviewed and continued.
[2024-03-18] VITALS (7 sets, daily range): BP systolic 99–157; BP diastolic 61–90; PULSE 56–74; RESP 17–20; TEMP 36.1–36.3; O2SAT 95–98
[2024-03-18] MEDS: SODIUM CHLORIDE TAB 1,000 MG TABLET.SOL 1000 MG GT ×2 (08:13→21:48)
[2024-03-18] MEDS: SOD PHOS DI, MONO/K PHOS MONO 250 MG TABLET GT (08:13)
[2024-03-18] MEDS: MULTIVIT-MIN/IRON FUM/FOLIC AC 1 EACH TABLET GT (08:13)
[2024-03-18] MEDS: ESOMEPRAZOLE 40 MG GT (08:13)
[2024-03-18] MEDS: SENNOSIDES 8.6 MG TABLET 17.2 MG GT (21:47)
[2024-03-19] VITALS (7 sets, daily range): BP systolic 101–124; BP diastolic 66–79; PULSE 63–74; RESP 16–19; TEMP 36–36.1; O2SAT 94–97
[2024-03-19] MEDS: ESOMEPRAZOLE 40 MG GT (09:09)
[2024-03-19] MEDS: MULTIVIT-MIN/IRON FUM/FOLIC AC 1 EACH TABLET GT (09:10)
[2024-03-19] MEDS: SODIUM CHLORIDE TAB 1,000 MG TABLET.SOL 1000 MG GT ×2 (09:10→21:58)
[2024-03-19] MEDS: SOD PHOS DI, MONO/K PHOS MONO 250 MG TABLET GT (09:10)
[2024-03-19] MEDS: ACETAMINOPHEN 325 MG TABLET 650 MG GT (09:11)
[2024-03-19] MEDS: SENNOSIDES 8.6 MG TABLET 17.2 MG GT (21:58)
[2024-03-19] MEDS: LOSARTAN 100 MG TABLET GT (21:59)
[2024-03-20] VITALS (8 sets, daily range): BP systolic 98–147; BP diastolic 63–77; PULSE 47–73; RESP 18–20; TEMP 35.9–36.1; O2SAT 95–97
[2024-03-20] MEDS: ESOMEPRAZOLE 40 MG GT (08:16)
[2024-03-20] MEDS: SOD PHOS DI, MONO/K PHOS MONO 250 MG TABLET GT (08:16)
[2024-03-20] MEDS: SODIUM CHLORIDE TAB 1,000 MG TABLET.SOL 1000 MG GT ×2 (08:17→21:37)
[2024-03-20] MEDS: MULTIVIT-MIN/IRON FUM/FOLIC AC 1 EACH TABLET GT (08:17)
[2024-03-20] MEDS: MAGNESIUM HYDROXIDE 30 ML ORAL SUSP ML GT (09:37)
--- NOTE | 2024-03-20 14:53 | PC.IP ---
After consent obtained from resident's RP, seasonal Influenza vaccine ordered for administration. Discussed risks and benefits of seasonal vaccine administration. Offered CDC VIS for both Covid and Influenza boosters. Assured that vital signs and any signs of temperature or discomfort would be monitored closely and Tylenol or Ibuprofen would be available as per appropriate and MD order. Explained that the immunizations would not be given at the same time; Covid clinic scheduled for March 28.
[2024-03-20] MEDS: FLU VACC QS 2023-24 (6 MOS UP) 60 MCG/0.5 ML VIAL IMi (18:00)
--- NOTE | 2024-03-20 18:44 | PC.NURSE ---
V/S 96.7, 47, 19, 121/68. Flu Vaccine 0.5ml IM to left deltoid at 1800. No immediate reaction noted. Resident on Q4 vitals to monitor. Will endorse to next shift and observe for changes. (See note from Infection Control Nurse Navid Burris)
[2024-03-20] MEDS: LOSARTAN 100 MG TABLET GT (21:36)
[2024-03-20] MEDS: SENNOSIDES 8.6 MG TABLET 17.2 MG GT (21:37)
[2024-03-21] VITALS (8 sets, daily range): BP systolic 122–166; BP diastolic 69–88; PULSE 46–73; RESP 15–24; TEMP 35.3–36.1; O2SAT 93–95
[2024-03-21] MEDS: SOD PHOS DI, MONO/K PHOS MONO 250 MG TABLET GT (07:40)
[2024-03-21] MEDS: ESOMEPRAZOLE 40 MG GT (07:40)
[2024-03-21] MEDS: SODIUM CHLORIDE TAB 1,000 MG TABLET.SOL 1000 MG GT ×2 (07:44→21:48)
[2024-03-21] MEDS: MULTIVIT-MIN/IRON FUM/FOLIC AC 1 EACH TABLET GT (07:44)
[2024-03-21] MEDS: CARBAMIDE PEROXIDE OTIC SOL 15 ML BTL 5 DROP BOTH EARS (21:38)
[2024-03-21] MEDS: LOSARTAN 100 MG TABLET GT (21:47)
[2024-03-21] MEDS: SENNOSIDES 8.6 MG TABLET 17.2 MG GT (21:48)
--- NOTE | 2024-03-21 23:38 | ESPR_ITS ---
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 (2) Epilepsy, unspecified, not intractable, without status epilepticus: Status: Chronic (3) Essential (primary) hypertension: Status: Chronic (4) Tracheostomy status: Status: Chronic (5) Gastrostomy status: Status: Chronic (6) Chronic respiratory failure, unspecified whether with hypoxia or hypercapnia: Status: Chronic (7) Chronic hyponatremia: Status: Chronic SUBJECTIVE Fever:: none GI:: none Shortness of Breath:: none GI:: no complaints Pain:: none OBJECTIVE Most recent vital signs: Last Vital Signs Temp 96.4 F L 03/21/24 18:00 Pulse 50 L 03/21/24 21:47 Resp 18 03/21/24 19:14 BP 122/75 03/21/24 21:47 Pulse Ox 95 03/21/24 19:14 O2 Del Method Blow-by 03/20/24 18:00 O2 Flow Rate 6 03/21/24 19:14 FiO2 28 03/21/24 19:14 Neurological:: alert Speech:: nods head, mouths words (sometimes) and appropriate Answers questions:: sometimes Respiratory:: shallow breathing Cardiovascular: RRR Abdomen: soft and nontender Extremities:: deformities Decubitus:: none Tracheostomy:: to blow by Feeding per:: G tube Complaints:: none ASSESSMENT & PLAN Assessment: 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 No pain issues, and remains comfortable. Ice chips for some oral gratification tried with success without any cough or aspiration and continued.Remains fully dependent for care. interacts some and mostly happy. Plan: All treatment reviewed and continued.
[2024-03-22] VITALS (8 sets, daily range): BP systolic 119–174; BP diastolic 72–99; PULSE 46–68; RESP 16–24; TEMP 36–36.6; O2SAT 97–99
[2024-03-22] MEDS: ESOMEPRAZOLE 40 MG GT (09:11)
[2024-03-22] MEDS: CARBAMIDE PEROXIDE OTIC SOL 15 ML BTL 5 DROP BOTH EARS ×2 (09:11→21:12)
[2024-03-22] MEDS: SOD PHOS DI, MONO/K PHOS MONO 250 MG TABLET GT (09:11)
[2024-03-22] MEDS: MULTIVIT-MIN/IRON FUM/FOLIC AC 1 EACH TABLET GT (09:12)
[2024-03-22] MEDS: SODIUM CHLORIDE TAB 1,000 MG TABLET.SOL 1000 MG GT ×2 (09:12→21:12)
--- NOTE | 2024-03-22 18:14 | PC.NURSE ---
Resident's HR is on the 40s (46-49) V/S 122/74, 97.6, 19, 97.6 O2 sat 99%. Stable and responsive. Respiration even and unlabored. Denies any pain or discomfort. Called Dr triana and made aware , no new orders made at this time. Monitor resident and update MD as needed.
[2024-03-22] MEDS: SENNOSIDES 8.6 MG TABLET 17.2 MG GT (21:12)
[2024-03-22] MEDS: LOSARTAN 100 MG TABLET GT (21:12)
[2024-03-23] VITALS (7 sets, daily range): BP systolic 110–158; BP diastolic 64–84; PULSE 52–66; RESP 16–20; TEMP 36–36.7; O2SAT 95–97
[2024-03-23] MEDS: CARBAMIDE PEROXIDE OTIC SOL 15 ML BTL 5 DROP BOTH EARS (09:25)
[2024-03-23] MEDS: MULTIVIT-MIN/IRON FUM/FOLIC AC 1 EACH TABLET GT (09:26)
[2024-03-23] MEDS: SOD PHOS DI, MONO/K PHOS MONO 250 MG TABLET GT (09:26)
[2024-03-23] MEDS: SODIUM CHLORIDE TAB 1,000 MG TABLET.SOL 1000 MG GT ×2 (09:26→21:32)
[2024-03-23] MEDS: ESOMEPRAZOLE 40 MG GT (09:26)
[2024-03-23] MEDS: LOSARTAN 100 MG TABLET GT (21:31)
[2024-03-23] MEDS: SENNOSIDES 8.6 MG TABLET 17.2 MG GT (21:31)
[2024-03-24] VITALS (8 sets, daily range): BP systolic 107–148; BP diastolic 67–93; PULSE 50–65; RESP 16–20; TEMP 36.1–36.3; O2SAT 97–98
[2024-03-24] MEDS: ESOMEPRAZOLE 40 MG GT (08:10)
[2024-03-24] MEDS: SOD PHOS DI, MONO/K PHOS MONO 250 MG TABLET GT (08:10)
[2024-03-24] MEDS: SODIUM CHLORIDE TAB 1,000 MG TABLET.SOL 1000 MG GT ×2 (08:11→21:36)
[2024-03-24] MEDS: MULTIVIT-MIN/IRON FUM/FOLIC AC 1 EACH TABLET GT (08:11)
[2024-03-24] MEDS: CARBAMIDE PEROXIDE OTIC SOL 15 ML BTL 5 DROP BOTH EARS (21:34)
[2024-03-24] MEDS: SENNOSIDES 8.6 MG TABLET 17.2 MG GT (21:36)
[2024-03-25] VITALS (7 sets, daily range): BP systolic 116–138; BP diastolic 58–84; PULSE 47–63; RESP 16–20; TEMP 35.8–36.4; O2SAT 95–99
[2024-03-25] MEDS: SOD PHOS DI, MONO/K PHOS MONO 250 MG TABLET GT (08:03)
[2024-03-25] MEDS: ESOMEPRAZOLE 40 MG GT (08:03)
[2024-03-25] MEDS: MULTIVIT-MIN/IRON FUM/FOLIC AC 1 EACH TABLET GT (08:03)
[2024-03-25] MEDS: SODIUM CHLORIDE TAB 1,000 MG TABLET.SOL 1000 MG GT ×2 (08:03→20:32)
--- NOTE | 2024-03-25 18:27 | ESPR_ITS ---
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 (2) Epilepsy, unspecified, not intractable, without status epilepticus: Status: Chronic (3) Essential (primary) hypertension: Status: Chronic (4) Tracheostomy status: Status: Chronic (5) Gastrostomy status: Status: Chronic (6) Chronic respiratory failure, unspecified whether with hypoxia or hypercapnia: Status: Chronic (7) Chronic hyponatremia: Status: Chronic SUBJECTIVE Fever:: none GI:: none Shortness of Breath:: none GI:: no complaints Pain:: none OBJECTIVE Most recent vital signs: Last Vital Signs Temp 97.2 F 03/25/24 17:29 Pulse 55 L 03/25/24 17:29 Resp 18 03/25/24 17:29 BP 118/76 03/25/24 17:29 Pulse Ox 95 03/25/24 17:29 O2 Del Method Blow-by 03/25/24 17:29 O2 Flow Rate 6 03/25/24 07:20 FiO2 28 03/25/24 07:20 Neurological:: alert Speech:: nods head, mouths words (sometimes) and appropriate Answers questions:: sometimes Respiratory:: shallow breathing Cardiovascular: RRR Abdomen: soft and nontender Extremities:: deformities Decubitus:: none Tracheostomy:: to blow by Feeding per:: G tube Complaints:: none ASSESSMENT & PLAN Assessment: 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 No pain issues, and remains comfortable. Ice chips for some oral gratification tried with success without any cough or aspiration and continued.Remains fully dependent for care. interacts some and mostly happy. Plan: All treatment reviewed and continued.
[2024-03-25] MEDS: LOSARTAN 100 MG TABLET GT (20:29)
[2024-03-25] MEDS: SENNOSIDES 8.6 MG TABLET 17.2 MG GT (20:31)
[2024-03-26 06:00] VITALS: BP 138/82; PULSE 48; RESP 18; TEMP 36.1; O2SAT 98
[2024-03-26] MEDS: ESOMEPRAZOLE 40 MG GT (08:01)
[2024-03-26] MEDS: SODIUM CHLORIDE TAB 1,000 MG TABLET.SOL 1000 MG GT ×2 (08:02→21:07)
[2024-03-26] MEDS: SOD PHOS DI, MONO/K PHOS MONO 250 MG TABLET GT (08:02)
[2024-03-26] MEDS: MULTIVIT-MIN/IRON FUM/FOLIC AC 1 EACH TABLET GT (08:02)
[2024-03-26 09:08] VITALS: PULSE 51; RESP 17; O2SAT 97
[2024-03-26 11:37] VITALS: BP 142/90; PULSE 56; RESP 17; TEMP 36.2
[2024-03-26 17:05] VITALS: BP 110/65; PULSE 66; RESP 17; TEMP 36.1; O2SAT 97
[2024-03-26 20:15] VITALS: PULSE 65; RESP 18; O2SAT 98
[2024-03-26 21:07] VITALS: BP 110/73; PULSE 59
[2024-03-26] MEDS: LOSARTAN 100 MG TABLET GT (21:07)
[2024-03-26] MEDS: SENNOSIDES 8.6 MG TABLET 17.2 MG GT (21:07)
[2024-03-27] VITALS (8 sets, daily range): BP systolic 116–132; BP diastolic 64–84; PULSE 60–69; RESP 16–20; TEMP 36.1–36.4; O2SAT 96–98
[2024-03-27] MEDS: SODIUM CHLORIDE TAB 1,000 MG TABLET.SOL 1000 MG GT ×2 (08:00→21:24)
[2024-03-27] MEDS: SOD PHOS DI, MONO/K PHOS MONO 250 MG TABLET GT (08:00)
[2024-03-27] MEDS: ESOMEPRAZOLE 40 MG GT (08:00)
[2024-03-27] MEDS: MULTIVIT-MIN/IRON FUM/FOLIC AC 1 EACH TABLET GT (08:00)
[2024-03-27] MEDS: LOSARTAN 100 MG TABLET GT (21:21)
[2024-03-27] MEDS: SENNOSIDES 8.6 MG TABLET 17.2 MG GT (21:22)
[2024-03-28] VITALS (8 sets, daily range): BP systolic 100–164; BP diastolic 68–84; PULSE 49–74; RESP 17–20; TEMP 36.1–36.6; O2SAT 92–98
[2024-03-28] MEDS: ESOMEPRAZOLE 40 MG GT (08:00)
[2024-03-28] MEDS: SODIUM CHLORIDE TAB 1,000 MG TABLET.SOL 1000 MG GT ×2 (08:00→21:48)
[2024-03-28] MEDS: SOD PHOS DI, MONO/K PHOS MONO 250 MG TABLET GT (08:00)
[2024-03-28] MEDS: MULTIVIT-MIN/IRON FUM/FOLIC AC 1 EACH TABLET GT (08:00)
[2024-03-28] MEDS: LOSARTAN 100 MG TABLET GT (21:47)
[2024-03-28] MEDS: SENNOSIDES 8.6 MG TABLET 17.2 MG GT (21:48)
[2024-03-28] MEDS: MAGNESIUM HYDROXIDE 30 ML ORAL SUSP ML GT (21:50)
[2024-03-29] VITALS (7 sets, daily range): BP systolic 110–150; BP diastolic 70–86; PULSE 58–77; RESP 16–18; TEMP 36.1; O2SAT 95–98
[2024-03-29] MEDS: SOD PHOS DI, MONO/K PHOS MONO 250 MG TABLET GT (08:01)
[2024-03-29] MEDS: MULTIVIT-MIN/IRON FUM/FOLIC AC 1 EACH TABLET GT (08:01)
[2024-03-29] MEDS: SODIUM CHLORIDE TAB 1,000 MG TABLET.SOL 1000 MG GT ×2 (08:01→21:55)
[2024-03-29] MEDS: ESOMEPRAZOLE 40 MG GT (08:01)
--- NOTE | 2024-03-29 18:08 | ESPR_ITS ---
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 (2) Epilepsy, unspecified, not intractable, without status epilepticus: Status: Chronic (3) Essential (primary) hypertension: Status: Chronic (4) Tracheostomy status: Status: Chronic (5) Gastrostomy status: Status: Chronic (6) Chronic respiratory failure, unspecified whether with hypoxia or hypercapnia: Status: Chronic (7) Chronic hyponatremia: Status: Chronic SUBJECTIVE Fever:: none GI:: none Shortness of Breath:: none GI:: no complaints Pain:: none OBJECTIVE Most recent vital signs: Last Vital Signs Temp 96.9 F 03/29/24 12:00 Pulse 59 L 03/29/24 12:00 Resp 16 03/29/24 12:00 BP 144/84 H 03/29/24 12:00 Pulse Ox 98 03/29/24 12:00 O2 Del Method Blow-by 03/29/24 12:00 O2 Flow Rate 6 03/29/24 12:00 FiO2 28 03/29/24 12:00 Neurological:: alert Speech:: nods head, mouths words (sometimes) and appropriate Answers questions:: sometimes Respiratory:: shallow breathing Cardiovascular: RRR Abdomen: soft and nontender Extremities:: deformities Decubitus:: none Tracheostomy:: to blow by Feeding per:: G tube Complaints:: none ASSESSMENT & PLAN Assessment: 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 No pain issues, and remains comfortable. Ice chips for some oral gratification tried with success without any cough or aspiration and continued.Remains fully dependent for care. interacts some and mostly happy. Plan: All treatment reviewed and continued.
[2024-03-29] MEDS: LOSARTAN 100 MG TABLET GT (21:54)
[2024-03-29] MEDS: SENNOSIDES 8.6 MG TABLET 17.2 MG GT (21:55)
[2024-03-30] VITALS (7 sets, daily range): BP systolic 107–144; BP diastolic 64–97; PULSE 55–67; RESP 17–20; TEMP 36–36.3; O2SAT 92–97
[2024-03-30] MEDS: MULTIVIT-MIN/IRON FUM/FOLIC AC 1 EACH TABLET GT (08:03)
[2024-03-30] MEDS: ESOMEPRAZOLE 40 MG GT (08:03)
[2024-03-30] MEDS: SOD PHOS DI, MONO/K PHOS MONO 250 MG TABLET GT (08:03)
[2024-03-30] MEDS: SODIUM CHLORIDE TAB 1,000 MG TABLET.SOL 1000 MG GT ×2 (08:03→20:08)
[2024-03-30] MEDS: LOSARTAN 100 MG TABLET GT (20:07)
[2024-03-30] MEDS: SENNOSIDES 8.6 MG TABLET 17.2 MG GT (20:07)
[2024-03-31] VITALS (7 sets, daily range): BP systolic 116–168; BP diastolic 70–89; PULSE 61–70; RESP 18–20; TEMP 36–36.3; O2SAT 97–99
[2024-03-31] MEDS: ESOMEPRAZOLE 40 MG GT (09:47)
[2024-03-31] MEDS: SOD PHOS DI, MONO/K PHOS MONO 250 MG TABLET GT (09:47)
[2024-03-31] MEDS: SODIUM CHLORIDE TAB 1,000 MG TABLET.SOL 1000 MG GT ×2 (09:48→21:06)
[2024-03-31] MEDS: MULTIVIT-MIN/IRON FUM/FOLIC AC 1 EACH TABLET GT (09:48)
[2024-03-31] MEDS: LOSARTAN 100 MG TABLET GT (21:04)
[2024-03-31] MEDS: SENNOSIDES 8.6 MG TABLET 17.2 MG GT (21:05)
--- NOTE | 2024-03-31 21:34 | ESPR_ITS ---
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 (2) Epilepsy, unspecified, not intractable, without status epilepticus: Status: Chronic (3) Essential (primary) hypertension: Status: Chronic (4) Tracheostomy status: Status: Chronic (5) Gastrostomy status: Status: Chronic (6) Chronic respiratory failure, unspecified whether with hypoxia or hypercapnia: Status: Chronic (7) Chronic hyponatremia: Status: Chronic SUBJECTIVE Fever:: none GI:: none Shortness of Breath:: none GI:: no complaints Pain:: none OBJECTIVE Most recent vital signs: Last Vital Signs Temp 96.8 F 03/31/24 17:35 Pulse 65 03/31/24 21:04 Resp 20 03/31/24 17:35 BP 148/80 H 03/31/24 21:04 Pulse Ox 97 03/31/24 17:35 O2 Del Method Blow-by 03/31/24 17:35 O2 Flow Rate 6 03/31/24 05:51 FiO2 28 03/31/24 05:51 Neurological:: alert Speech:: nods head, mouths words (sometimes) and appropriate Answers questions:: sometimes Respiratory:: shallow breathing Cardiovascular: RRR Abdomen: soft and nontender Extremities:: deformities Decubitus:: none Tracheostomy:: to blow by Feeding per:: G tube Complaints:: none ASSESSMENT & PLAN Assessment: 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 No pain issues, and remains comfortable. Ice chips for some oral gratification tried with success without any cough or aspiration and continued.Remains fully dependent for care. interacts some and mostly happy. Plan: All treatment reviewed and continued.
[2024-04-01] VITALS (7 sets, daily range): BP systolic 95–149; BP diastolic 61–86; PULSE 60–102; RESP 17–20; TEMP 36.1–36.2; O2SAT 97–99
[2024-04-01 08:04] LABS: Albumin, Serum 4.2 gm/dL (3.4-4.8); Anion Gap 2 (7-16); BUN/Creatinine Ratio 38 Ratio (12-20); Blood Urea Nitrogen 15 mg/dL (9-23); Calcium 9.9 mg/dL (8.3-10.6); Calcium (Corrected) 9.9 mg/dL (8.5-10.1); Carbon Dioxide 30.1 mMol/L (20.0-31.0); Chloride 96 mMol/L (98-107); Creatinine (Component) 0.4 mg/dL (0.6-1.3); Estimated Creatinine Clearance 104.8 mL/min (>60); Glucose 90 mg/dL (74-106); Osmolality,Calculated 257 (275-295); Phosphorous 4.3 mg/dL (2.4-5.1); Potassium 4.4 mMol/L (3.4-5.1); Sodium 128 mMol/L (136-145); eGFR > 60 See Note
[2024-04-01] MEDS: SOD PHOS DI, MONO/K PHOS MONO 250 MG TABLET GT (09:45)
[2024-04-01] MEDS: ESOMEPRAZOLE 40 MG GT (09:45)
[2024-04-01] MEDS: MULTIVIT-MIN/IRON FUM/FOLIC AC 1 EACH TABLET GT (09:45)
[2024-04-01] MEDS: SODIUM CHLORIDE TAB 1,000 MG TABLET.SOL 1000 MG GT ×2 (09:45→21:12)
--- NOTE | 2024-04-01 13:40 | PC.NURSE ---
On 03/31/24 spoke with Homa Griffiths RP, to inform her of the restrictions placed throughout [facility] and DP[facility] for no visitors under the age of 13 years. This is a precaution for the respiratory virus season.
[2024-04-01] MEDS: SENNOSIDES 8.6 MG TABLET 17.2 MG GT (21:12)
[2024-04-01] MEDS: LOSARTAN 100 MG TABLET GT (21:12)
[2024-04-02] VITALS (8 sets, daily range): BP systolic 97–148; BP diastolic 63–84; PULSE 58–81; RESP 16–22; TEMP 36.1–36.6; O2SAT 96–98
--- NOTE | 2024-04-02 08:33 | PC.IP ---
Late entry: On 03/28/24 resident received Moderna Spikevax 24-25 to right deltoid. Lot #[id number] Exp: 11/04/24. Resident tolerated well and has had no febrile episodes.
[2024-04-02] MEDS: SOD PHOS DI, MONO/K PHOS MONO 250 MG TABLET GT (09:50)
[2024-04-02] MEDS: SODIUM CHLORIDE TAB 1,000 MG TABLET.SOL 1000 MG GT ×2 (09:50→21:32)
[2024-04-02] MEDS: ESOMEPRAZOLE 40 MG GT (09:50)
[2024-04-02] MEDS: MULTIVIT-MIN/IRON FUM/FOLIC AC 1 EACH TABLET GT (09:50)
[2024-04-02] MEDS: LOSARTAN 100 MG TABLET GT (21:31)
[2024-04-02] MEDS: SENNOSIDES 8.6 MG TABLET 17.2 MG GT (21:32)
[2024-04-03] VITALS: BP 118/81; PULSE 62; RESP 20; TEMP 36
[2024-04-03 05:44] VITALS: BP 134/80; PULSE 57; RESP 22; TEMP 36.1; O2SAT 97
[2024-04-03 07:27] VITALS: PULSE 63; RESP 18; O2SAT 93
[2024-04-03] MEDS: SOD PHOS DI, MONO/K PHOS MONO 250 MG TABLET GT (09:16)
[2024-04-03] MEDS: ESOMEPRAZOLE 40 MG GT (09:16)
[2024-04-03] MEDS: SODIUM CHLORIDE TAB 1,000 MG TABLET.SOL 1000 MG GT ×2 (09:16→21:18)
[2024-04-03] MEDS: MULTIVIT-MIN/IRON FUM/FOLIC AC 1 EACH TABLET GT (09:16)
[2024-04-03 12:00] VITALS: BP 135/84; PULSE 54; RESP 24; TEMP 35.7
[2024-04-03 18:00] VITALS: BP 134/85; PULSE 56; RESP 24; TEMP 36.1; O2SAT 94
[2024-04-03 21:18] VITALS: BP 139/86; PULSE 62
[2024-04-03] MEDS: SENNOSIDES 8.6 MG TABLET 17.2 MG GT (21:18)
[2024-04-03] MEDS: LOSARTAN 100 MG TABLET GT (21:18)
[2024-04-04] VITALS (8 sets, daily range): BP systolic 117–127; BP diastolic 68–80; PULSE 56–83; RESP 16–20; TEMP 35.9–36.3; O2SAT 94–97
[2024-04-04] MEDS: MULTIVIT-MIN/IRON FUM/FOLIC AC 1 EACH TABLET GT (09:58)
[2024-04-04] MEDS: SODIUM CHLORIDE TAB 1,000 MG TABLET.SOL 1000 MG GT ×2 (09:58→21:35)
[2024-04-04] MEDS: SOD PHOS DI, MONO/K PHOS MONO 250 MG TABLET GT (09:58)
[2024-04-04] MEDS: ESOMEPRAZOLE 40 MG GT (09:58)
--- NOTE | 2024-04-04 10:43 | PC.NURSE ---
Resident's latest sodium level 128. Remains to be alert and stable. No edema noted. Currently on NS GT flush of 700 ml max each shift. Called Dr Gonsalez and made aware with new orders received to do sodium random urine and do CMP on Sunday04/07/24.
[2024-04-04 12:36] LABS: Sodium,Urine Random 136.0 mMol/L (20.0-110.0)
--- NOTE | 2024-04-04 13:11 | PC.NURSE ---
Resident's urine random sodium is 136. Currently on NaCl 1,[address] Gonsalez and made aware, no new orders made . Resident scheduled for lab draw on Sunday to follow up on sodium level. Resident remains stable at this time.
--- NOTE | 2024-04-04 15:01 | PC.SS ---
Room visit: Resident is laying in bed with head of the bed elevated with call light properly placed with no signs of distress. Resident has no changes in care or condition, resident remains on blow by with trach in place and GT for medication and nutrition. Resident will remain in current care and will continue to have all subacute care needs met by staff. This SSD will continue to make daily contact with resident and monitor for changes in mood and behavior.
[2024-04-04] MEDS: LOSARTAN 100 MG TABLET GT (21:33)
[2024-04-04] MEDS: SENNOSIDES 8.6 MG TABLET 17.2 MG GT (21:34)
--- NOTE | 2024-04-04 21:39 | PD.SAPROG ---
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 (2) Epilepsy, unspecified, not intractable, without status epilepticus: Status: Chronic (3) Essential (primary) hypertension: Status: Chronic (4) Tracheostomy status: Status: Chronic (5) Gastrostomy status: Status: Chronic (6) Chronic respiratory failure, unspecified whether with hypoxia or hypercapnia: Status: Chronic (7) Chronic hyponatremia: Status: Chronic SUBJECTIVE Fever:: none GI:: none Shortness of Breath:: none GI:: no complaints Pain:: none OBJECTIVE Most recent vital signs: Last Vital Signs Temp 96.7 F L 04/04/24 16:47 Pulse 66 04/04/24 21:33 Resp 17 04/04/24 16:47 BP 117/80 04/04/24 21:33 Pulse Ox 97 04/04/24 16:47 O2 Del Method Blow-by 04/04/24 16:47 O2 Flow Rate 6 04/04/24 07:15 FiO2 28 04/04/24 07:15 Neurological:: alert Speech:: nods head, mouths words (sometimes) and appropriate Answers questions:: sometimes Respiratory:: shallow breathing Cardiovascular: RRR Abdomen: soft and nontender Extremities:: deformities Decubitus:: none Tracheostomy:: to blow by Feeding per:: G tube Complaints:: none ASSESSMENT & PLAN Assessment: 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 No pain issues, and remains comfortable. Ice chips for some oral gratification tried with success without any cough or aspiration and continued.Remains fully dependent for care. interacts some and mostly happy. Hyponatremia on labs being monitored and addressed. No clinical change. Plan: All treatment reviewed and continued.
[2024-04-05] VITALS (7 sets, daily range): BP systolic 120–153; BP diastolic 70–86; PULSE 60–75; RESP 16–18; TEMP 35.8–36.6; O2SAT 94–100
[2024-04-05] MEDS: SOD PHOS DI, MONO/K PHOS MONO 250 MG TABLET GT (08:02)
[2024-04-05] MEDS: MULTIVIT-MIN/IRON FUM/FOLIC AC 1 EACH TABLET GT (08:02)
[2024-04-05] MEDS: ESOMEPRAZOLE 40 MG GT (08:02)
[2024-04-05] MEDS: SODIUM CHLORIDE TAB 1,000 MG TABLET.SOL 1000 MG GT ×2 (08:02→20:55)
[2024-04-05] MEDS: LOSARTAN 100 MG TABLET GT (20:55)
[2024-04-05] MEDS: SENNOSIDES 8.6 MG TABLET 17.2 MG GT (20:55)
[2024-04-06] VITALS (7 sets, daily range): BP systolic 118–162; BP diastolic 76–83; PULSE 60–85; RESP 16–20; TEMP 36–36.4; O2SAT 95–97
[2024-04-06] MEDS: MULTIVIT-MIN/IRON FUM/FOLIC AC 1 EACH TABLET GT (09:15)
[2024-04-06] MEDS: SOD PHOS DI, MONO/K PHOS MONO 250 MG TABLET GT (09:15)
[2024-04-06] MEDS: ESOMEPRAZOLE 40 MG GT (09:15)
[2024-04-06] MEDS: SODIUM CHLORIDE TAB 1,000 MG TABLET.SOL 1000 MG GT ×2 (09:16→21:32)
[2024-04-06] MEDS: SENNOSIDES 8.6 MG TABLET 17.2 MG GT (21:31)
[2024-04-06] MEDS: LOSARTAN 100 MG TABLET GT (21:31)
[2024-04-07] VITALS (7 sets, daily range): BP systolic 92–165; BP diastolic 60–80; PULSE 57–75; RESP 16–19; TEMP 36.1–36.3; O2SAT 95–100
[2024-04-07] MEDS: SOD PHOS DI, MONO/K PHOS MONO 250 MG TABLET GT (08:06)
[2024-04-07] MEDS: SODIUM CHLORIDE TAB 1,000 MG TABLET.SOL 1000 MG GT ×2 (08:06→20:38)
[2024-04-07] MEDS: ESOMEPRAZOLE 40 MG GT (08:06)
[2024-04-07] MEDS: MULTIVIT-MIN/IRON FUM/FOLIC AC 1 EACH TABLET GT (08:06)
[2024-04-07 09:00] LABS: Alanine Aminotransferase 30 U/L (10-49); Albumin, Serum 4.2 gm/dL (3.4-4.8); Albumin/Globulin Ratio 1.2 (1.2-2.2); Alkaline Phosphatase 153 U/L (46-116); Anion Gap 6 (7-16); Aspartate Amino Transferase 29 U/L (0-34); BUN/Creatinine Ratio 40 Ratio (12-20); Bilirubin,Total 0.3 mg/dL (0.3-1.2); Blood Urea Nitrogen 16 mg/dL (9-23); Calcium 9.9 mg/dL (8.3-10.6); Calcium (Corrected) 9.9 mg/dL (8.5-10.1); Carbon Dioxide 28.4 mMol/L (20.0-31.0); Chloride 99 mMol/L (98-107); Creatinine (Component) 0.4 mg/dL (0.6-1.3); Estimated Creatinine Clearance 104.8 mL/min (>60); Globulin 3.4 gm/dL (2.3-3.5); Glucose 101 mg/dL (74-106); Osmolality,Calculated 267 (275-295); Potassium 4.2 mMol/L (3.4-5.1); Sodium 133 mMol/L (136-145); Total Protein 7.6 gm/dL (5.7-8.2); eGFR > 60 See Note
--- NOTE | 2024-04-07 14:15 | PC.NURSE ---
Resident's latest sodium level 133, currently on NS flush of 700 ml max q shift. Remains stable , with latest V/S as follows: 96.9, 75, 16, 122/72. Called Dr Gonsalez and made aware, no new orders made.
[2024-04-07] MEDS: SENNOSIDES 8.6 MG TABLET 17.2 MG GT (20:38)
[2024-04-07] MEDS: LOSARTAN 100 MG TABLET GT (20:38)
[2024-04-08] VITALS (7 sets, daily range): BP systolic 95–145; BP diastolic 73–85; PULSE 52–71; RESP 17–20; TEMP 35.9–36.1; O2SAT 97–98
[2024-04-08] MEDS: SODIUM CHLORIDE TAB 1,000 MG TABLET.SOL 1000 MG GT ×2 (08:00→20:24)
[2024-04-08] MEDS: ESOMEPRAZOLE 40 MG GT (08:00)
[2024-04-08] MEDS: SOD PHOS DI, MONO/K PHOS MONO 250 MG TABLET GT (08:00)
[2024-04-08] MEDS: MULTIVIT-MIN/IRON FUM/FOLIC AC 1 EACH TABLET GT (08:00)
[2024-04-08] MEDS: SENNOSIDES 8.6 MG TABLET 17.2 MG GT (20:23)
[2024-04-08] MEDS: LOSARTAN 100 MG TABLET GT (20:23)
--- NOTE | 2024-04-08 22:23 | PD.SAPROG ---
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 (2) Epilepsy, unspecified, not intractable, without status epilepticus: Status: Chronic (3) Essential (primary) hypertension: Status: Chronic (4) Tracheostomy status: Status: Chronic (5) Gastrostomy status: Status: Chronic (6) Chronic respiratory failure, unspecified whether with hypoxia or hypercapnia: Status: Chronic (7) Chronic hyponatremia: Status: Chronic SUBJECTIVE Fever:: none GI:: none Shortness of Breath:: none GI:: no complaints Pain:: none OBJECTIVE Most recent vital signs: Last Vital Signs Temp 96.7 F L 04/08/24 17:35 Pulse 71 04/08/24 20:23 Resp 17 04/08/24 17:35 BP 145/73 H 04/08/24 20:23 Pulse Ox 98 04/08/24 17:35 O2 Del Method Blow-by 04/08/24 17:35 O2 Flow Rate 6 04/08/24 07:03 FiO2 28 04/08/24 07:03 Neurological:: alert Speech:: nods head, mouths words (sometimes) and appropriate Answers questions:: sometimes Respiratory:: shallow breathing Cardiovascular: RRR Abdomen: soft and nontender Extremities:: deformities Decubitus:: none Tracheostomy:: to blow by Feeding per:: G tube Complaints:: none ASSESSMENT & PLAN Assessment: 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 No pain issues, and remains comfortable. Ice chips for some oral gratification tried with success without any cough or aspiration and continued.Remains fully dependent for care. interacts some and mostly happy. Hyponatremia on labs being monitored and addressed. No clinical change. Plan: All treatment reviewed and continued.
[2024-04-09] VITALS (8 sets, daily range): BP systolic 97–153; BP diastolic 65–86; PULSE 56–76; RESP 17–20; TEMP 35.9–36.2; O2SAT 97–98
[2024-04-09] MEDS: MULTIVIT-MIN/IRON FUM/FOLIC AC 1 EACH TABLET GT (08:05)
[2024-04-09] MEDS: SODIUM CHLORIDE TAB 1,000 MG TABLET.SOL 1000 MG GT ×2 (08:05→21:40)
[2024-04-09] MEDS: ESOMEPRAZOLE 40 MG GT (08:05)
[2024-04-09] MEDS: SOD PHOS DI, MONO/K PHOS MONO 250 MG TABLET GT (08:05)
[2024-04-09] MEDS: SENNOSIDES 8.6 MG TABLET 17.2 MG GT (21:40)
[2024-04-10 06:00] VITALS: BP 120/67; PULSE 69; RESP 18; TEMP 36.1; O2SAT 97
[2024-04-10 07:25] VITALS: PULSE 69; RESP 18; O2SAT 98
[2024-04-10] MEDS: ESOMEPRAZOLE 40 MG GT (08:08)
[2024-04-10] MEDS: MULTIVIT-MIN/IRON FUM/FOLIC AC 1 EACH TABLET GT (08:09)
[2024-04-10] MEDS: SODIUM CHLORIDE TAB 1,000 MG TABLET.SOL 1000 MG GT ×2 (08:09→21:02)
[2024-04-10] MEDS: SOD PHOS DI, MONO/K PHOS MONO 250 MG TABLET GT (08:09)
[2024-04-10 12:00] VITALS: BP 175/80; PULSE 80; RESP 20; TEMP 36.1
[2024-04-10 17:39] VITALS: BP 141/84; PULSE 65; RESP 19; TEMP 36.1; O2SAT 96
[2024-04-10 18:21] VITALS: PULSE 74; RESP 18; O2SAT 93
[2024-04-10 21:01] VITALS: BP 174/78; PULSE 89
[2024-04-10] MEDS: LOSARTAN 100 MG TABLET GT (21:01)
[2024-04-10] MEDS: SENNOSIDES 8.6 MG TABLET 17.2 MG GT (21:02)
[2024-04-11] VITALS (7 sets, daily range): BP systolic 103–172; BP diastolic 71–98; PULSE 53–79; RESP 17–18; TEMP 35.9–36.2; O2SAT 87–99
[2024-04-11] MEDS: MULTIVIT-MIN/IRON FUM/FOLIC AC 1 EACH TABLET GT (08:37)
[2024-04-11] MEDS: SODIUM CHLORIDE TAB 1,000 MG TABLET.SOL 1000 MG GT ×2 (08:37→22:08)
[2024-04-11] MEDS: ESOMEPRAZOLE 40 MG GT (08:37)
[2024-04-11] MEDS: SOD PHOS DI, MONO/K PHOS MONO 250 MG TABLET GT (08:37)
[2024-04-11] MEDS: ALBUTEROL INHALER 200 PUFF/INH INHALER INH (19:43)
[2024-04-11] MEDS: LOSARTAN 100 MG TABLET GT (22:07)
[2024-04-11] MEDS: SENNOSIDES 8.6 MG TABLET 17.2 MG GT (22:07)
[2024-04-12] VITALS (7 sets, daily range): BP systolic 95–164; BP diastolic 63–89; PULSE 51–74; RESP 18–20; TEMP 36.1–36.4; O2SAT 96–97
[2024-04-12] MEDS: SODIUM CHLORIDE TAB 1,000 MG TABLET.SOL 1000 MG GT ×2 (08:05→21:55)
[2024-04-12] MEDS: SOD PHOS DI, MONO/K PHOS MONO 250 MG TABLET GT (08:05)
[2024-04-12] MEDS: MULTIVIT-MIN/IRON FUM/FOLIC AC 1 EACH TABLET GT (08:05)
[2024-04-12] MEDS: ESOMEPRAZOLE 40 MG GT (08:05)
--- NOTE | 2024-04-12 13:55 | ESPR_ITS ---
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 (2) Epilepsy, unspecified, not intractable, without status epilepticus: Status: Chronic (3) Essential (primary) hypertension: Status: Chronic (4) Tracheostomy status: Status: Chronic (5) Gastrostomy status: Status: Chronic (6) Chronic respiratory failure, unspecified whether with hypoxia or hypercapnia: Status: Chronic (7) Chronic hyponatremia: Status: Chronic SUBJECTIVE Fever:: none GI:: none Shortness of Breath:: none GI:: no complaints Pain:: none OBJECTIVE Most recent vital signs: Last Vital Signs Temp 96.6 F L 04/13/24 11:52 Pulse 55 L 04/13/24 11:52 Resp 17 04/13/24 11:52 BP 134/87 H 04/13/24 11:52 Pulse Ox 96 04/13/24 00:00 O2 Del Method Blow-by 04/13/24 00:00 O2 Flow Rate 8 04/13/24 00:00 FiO2 30 04/13/24 00:00 Neurological:: alert Speech:: nods head, mouths words (sometimes) and appropriate Answers questions:: sometimes Respiratory:: shallow breathing Cardiovascular: RRR Abdomen: soft and nontender Extremities:: deformities Decubitus:: none Tracheostomy:: to blow by Feeding per:: G tube Complaints:: none ASSESSMENT & PLAN Assessment: Pt fully dependent for senior living care. No pain issues, and remains comfortable. Ice chips for some oral gratification tried with success without any cough or aspiration and continued.Remains fully dependent for care. interacts some and mostly happy. Hyponatremia on labs being monitored and addressed. No clinical change. Plan: All treatment reviewed and continued.
[2024-04-12] MEDS: SENNOSIDES 8.6 MG TABLET 17.2 MG GT (21:55)
[2024-04-13] VITALS: BP 103/70; PULSE 52; RESP 20; TEMP 36.1; O2SAT 96
[2024-04-13 06:00] VITALS: BP 139/78; PULSE 54; RESP 20; TEMP 36
[2024-04-13] MEDS: MAGNESIUM HYDROXIDE 30 ML ORAL SUSP ML GT (08:11)
[2024-04-13] MEDS: MULTIVIT-MIN/IRON FUM/FOLIC AC 1 EACH TABLET GT (09:24)
[2024-04-13] MEDS: SOD PHOS DI, MONO/K PHOS MONO 250 MG TABLET GT (09:24)
[2024-04-13] MEDS: SODIUM CHLORIDE TAB 1,000 MG TABLET.SOL 1000 MG GT ×2 (09:24→21:28)
[2024-04-13] MEDS: ESOMEPRAZOLE 40 MG GT (09:24)
[2024-04-13 11:52] VITALS: BP 134/87; PULSE 55; RESP 17; TEMP 35.9
[2024-04-13 17:15] VITALS: BP 136/80; PULSE 58; RESP 17; TEMP 36.2; O2SAT 99
[2024-04-13 18:54] VITALS: PULSE 58; RESP 17; RESP 18; O2SAT 97
[2024-04-13 21:28] VITALS: BP 129/75; PULSE 65
[2024-04-13] MEDS: SENNOSIDES 8.6 MG TABLET 17.2 MG GT (21:28)
[2024-04-13] MEDS: LOSARTAN 100 MG TABLET GT (21:28)
[2024-04-14] VITALS (7 sets, daily range): BP systolic 130–154; BP diastolic 61–86; PULSE 46–72; RESP 16–20; TEMP 36.1–36.3; O2SAT 96–98
[2024-04-14] MEDS: SOD PHOS DI, MONO/K PHOS MONO 250 MG TABLET GT ×2 (08:01→08:02)
[2024-04-14] MEDS: ESOMEPRAZOLE 40 MG GT (08:01)
[2024-04-14] MEDS: MULTIVIT-MIN/IRON FUM/FOLIC AC 1 EACH TABLET GT (08:02)
[2024-04-14] MEDS: SODIUM CHLORIDE TAB 1,000 MG TABLET.SOL 1000 MG GT ×2 (08:02→21:39)
[2024-04-14] MEDS: LOSARTAN 100 MG TABLET GT (21:38)
[2024-04-14] MEDS: SENNOSIDES 8.6 MG TABLET 17.2 MG GT (21:39)
[2024-04-15] VITALS (9 sets, daily range): BP systolic 119–176; BP diastolic 64–95; PULSE 51–74; RESP 16–20; TEMP 36.1–36.2; O2SAT 97–99
[2024-04-15] MEDS: MULTIVIT-MIN/IRON FUM/FOLIC AC 1 EACH TABLET GT (08:06)
[2024-04-15] MEDS: SOD PHOS DI, MONO/K PHOS MONO 250 MG TABLET GT (08:06)
[2024-04-15] MEDS: SODIUM CHLORIDE TAB 1,000 MG TABLET.SOL 1000 MG GT ×2 (08:06→20:53)
[2024-04-15] MEDS: ESOMEPRAZOLE 40 MG GT (08:06)
[2024-04-15] MEDS: LOSARTAN 100 MG TABLET GT (20:52)
[2024-04-15] MEDS: ACETAMINOPHEN 325 MG TABLET 650 MG GT (20:53)
[2024-04-15] MEDS: SENNOSIDES 8.6 MG TABLET 17.2 MG GT (20:53)
[2024-04-16 07:12] VITALS: PULSE 60; RESP 16; O2SAT 98
[2024-04-16] MEDS: ESOMEPRAZOLE 40 MG GT (09:26)
[2024-04-16] MEDS: MULTIVIT-MIN/IRON FUM/FOLIC AC 1 EACH TABLET GT (09:27)
[2024-04-16] MEDS: SOD PHOS DI, MONO/K PHOS MONO 250 MG TABLET GT (09:27)
[2024-04-16] MEDS: SODIUM CHLORIDE TAB 1,000 MG TABLET.SOL 1000 MG GT ×2 (09:27→20:39)
[2024-04-16 12:00] VITALS: BP 187/82; PULSE 71; RESP 19; TEMP 36.4
[2024-04-16 17:59] VITALS: BP 140/86; PULSE 64; RESP 19; TEMP 36.3; O2SAT 97
[2024-04-16 19:52] VITALS: PULSE 56; RESP 16; RESP 18; O2SAT 100
[2024-04-16 20:39] VITALS: BP 154/83; PULSE 70
[2024-04-16] MEDS: LOSARTAN 100 MG TABLET GT (20:39)
[2024-04-16] MEDS: SENNOSIDES 8.6 MG TABLET 17.2 MG GT (20:39)
--- NOTE | 2024-04-16 22:51 | PD.SAPROG ---
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 (2) Epilepsy, unspecified, not intractable, without status epilepticus: Status: Chronic (3) Essential (primary) hypertension: Status: Chronic (4) Tracheostomy status: Status: Chronic (5) Gastrostomy status: Status: Chronic (6) Chronic respiratory failure, unspecified whether with hypoxia or hypercapnia: Status: Chronic (7) Chronic hyponatremia: Status: Chronic SUBJECTIVE Fever:: none GI:: none Shortness of Breath:: none GI:: no complaints Pain:: none OBJECTIVE Most recent vital signs: Last Vital Signs Temp 97.4 F 04/16/24 17:59 Pulse 70 04/16/24 20:39 Resp 19 04/16/24 17:59 BP 154/83 H 04/16/24 20:39 Pulse Ox 97 04/16/24 17:59 O2 Del Method Blow-by 04/16/24 17:59 O2 Flow Rate 6 04/16/24 07:12 FiO2 28 04/16/24 07:12 Neurological:: alert Speech:: nods head, mouths words (sometimes) and appropriate Answers questions:: sometimes Respiratory:: shallow breathing Cardiovascular: RRR Abdomen: soft and nontender Extremities:: deformities Decubitus:: none Tracheostomy:: to blow by Feeding per:: G tube Complaints:: none ASSESSMENT & PLAN Assessment: 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 No pain issues, and remains comfortable. Ice chips for some oral gratification tried with success without any cough or aspiration and continued.Remains fully dependent for care. interacts some and mostly happy. Hyponatremia on labs being monitored and addressed. No clinical change. Plan: All treatment reviewed and continued.
[2024-04-17] VITALS: BP 120/76; PULSE 55; RESP 20; TEMP 36.1
[2024-04-17 05:54] VITALS: BP 133/68; PULSE 57; RESP 18; TEMP 36; O2SAT 98
[2024-04-17 07:08] VITALS: PULSE 62; RESP 16; O2SAT 98
[2024-04-17] MEDS: ESOMEPRAZOLE 40 MG GT (07:59)
[2024-04-17] MEDS: MULTIVIT-MIN/IRON FUM/FOLIC AC 1 EACH TABLET GT (07:59)
[2024-04-17] MEDS: SODIUM CHLORIDE TAB 1,000 MG TABLET.SOL 1000 MG GT ×2 (07:59→20:45)
[2024-04-17] MEDS: SOD PHOS DI, MONO/K PHOS MONO 250 MG TABLET GT (07:59)
[2024-04-17 20:45] VITALS: BP 146/84; PULSE 57
[2024-04-17] MEDS: SENNOSIDES 8.6 MG TABLET 17.2 MG GT (20:45)
[2024-04-17] MEDS: LOSARTAN 100 MG TABLET GT (20:45)
[2024-04-17 20:55] VITALS: PULSE 65; RESP 18; O2SAT 97
[2024-04-18] VITALS (7 sets, daily range): BP systolic 97–151; BP diastolic 62–91; PULSE 50–61; RESP 16–24; TEMP 35.3–36.1; O2SAT 94–98
[2024-04-18] MEDS: MULTIVIT-MIN/IRON FUM/FOLIC AC 1 EACH TABLET GT (09:52)
[2024-04-18] MEDS: ESOMEPRAZOLE 40 MG GT (09:52)
[2024-04-18] MEDS: SODIUM CHLORIDE TAB 1,000 MG TABLET.SOL 1000 MG GT ×2 (09:52→21:00)
[2024-04-18] MEDS: SOD PHOS DI, MONO/K PHOS MONO 250 MG TABLET GT (09:52)
--- NOTE | 2024-04-18 15:30 | PC.SS ---
Room visit: Resident is laying in bed with head of the bed elevated with call light properly placed with no signs of distress. Resident remains on blow by with trach in place and GT for medication and nutrition. Resident daughter Homa is her decision maker, resident is unable to make decision for self. She will remain in current care as she has no changes in care or condition. This SSD will continue to make contact with resident and monitor for changes in mood and behavior.
[2024-04-18] MEDS: LOSARTAN 100 MG TABLET GT (21:00)
[2024-04-18] MEDS: SENNOSIDES 8.6 MG TABLET 17.2 MG GT (21:00)
[2024-04-19] VITALS (7 sets, daily range): BP systolic 127–173; BP diastolic 68–85; PULSE 50–70; RESP 16–19; TEMP 36.1–36.4; O2SAT 96–100
[2024-04-19] MEDS: MAGNESIUM HYDROXIDE 30 ML ORAL SUSP ML GT (09:36)
[2024-04-19] MEDS: SOD PHOS DI, MONO/K PHOS MONO 250 MG TABLET GT (09:36)
[2024-04-19] MEDS: ESOMEPRAZOLE 40 MG GT (09:36)
[2024-04-19] MEDS: SODIUM CHLORIDE TAB 1,000 MG TABLET.SOL 1000 MG GT ×2 (09:36→20:29)
[2024-04-19] MEDS: MULTIVIT-MIN/IRON FUM/FOLIC AC 1 EACH TABLET GT (09:36)
[2024-04-19] MEDS: LOSARTAN 100 MG TABLET GT (20:29)
[2024-04-19] MEDS: SENNOSIDES 8.6 MG TABLET 17.2 MG GT (20:29)
[2024-04-20] VITALS (7 sets, daily range): BP systolic 137–186; BP diastolic 63–88; PULSE 54–75; RESP 16–20; TEMP 36.1–36.4; O2SAT 96–99
[2024-04-20] MEDS: MULTIVIT-MIN/IRON FUM/FOLIC AC 1 EACH TABLET GT (09:00)
[2024-04-20] MEDS: ESOMEPRAZOLE 40 MG GT (09:00)
[2024-04-20] MEDS: SOD PHOS DI, MONO/K PHOS MONO 250 MG TABLET GT (09:00)
[2024-04-20] MEDS: SODIUM CHLORIDE TAB 1,000 MG TABLET.SOL 1000 MG GT ×2 (09:00→20:41)
--- NOTE | 2024-04-20 16:43 | PD.SAPROG ---
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 (2) Epilepsy, unspecified, not intractable, without status epilepticus: Status: Chronic (3) Essential (primary) hypertension: Status: Chronic (4) Tracheostomy status: Status: Chronic (5) Gastrostomy status: Status: Chronic (6) Chronic respiratory failure, unspecified whether with hypoxia or hypercapnia: Status: Chronic (7) Chronic hyponatremia: Status: Chronic SUBJECTIVE Fever:: none GI:: none Shortness of Breath:: none GI:: no complaints Pain:: none OBJECTIVE Most recent vital signs: Last Vital Signs Temp 97.6 F 04/20/24 12:00 Pulse 61 04/20/24 12:00 Resp 18 04/20/24 12:00 BP 157/68 H 04/20/24 12:00 Pulse Ox 98 04/20/24 08:42 O2 Del Method Blow-by 04/19/24 18:00 O2 Flow Rate 6 04/20/24 08:42 FiO2 28 04/20/24 08:42 Neurological:: alert Speech:: nods head, mouths words (sometimes) and appropriate Answers questions:: sometimes Respiratory:: shallow breathing Cardiovascular: RRR Abdomen: soft and nontender Extremities:: deformities Decubitus:: none Tracheostomy:: to blow by Feeding per:: G tube Complaints:: none ASSESSMENT & PLAN Assessment: 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 No pain issues, and remains comfortable. Ice chips for some oral gratification tried with success without any cough or aspiration and continued.Remains fully dependent for care. interacts some and mostly happy. Tendency for Hypo-natremia on labs being monitored and addressed. No clinical change. Plan: All treatment reviewed and continued.
[2024-04-20] MEDS: SENNOSIDES 8.6 MG TABLET 17.2 MG GT (20:41)
[2024-04-20] MEDS: LOSARTAN 100 MG TABLET GT (20:41)
[2024-04-21] VITALS (7 sets, daily range): BP systolic 126–161; BP diastolic 73–89; PULSE 43–69; RESP 16–20; TEMP 36–36.2; O2SAT 97–98
[2024-04-21] MEDS: SODIUM CHLORIDE TAB 1,000 MG TABLET.SOL 1000 MG GT ×2 (08:01→20:35)
[2024-04-21] MEDS: MULTIVIT-MIN/IRON FUM/FOLIC AC 1 EACH TABLET GT (08:01)
[2024-04-21] MEDS: ESOMEPRAZOLE 40 MG GT (08:01)
[2024-04-21] MEDS: SOD PHOS DI, MONO/K PHOS MONO 250 MG TABLET GT (08:01)
--- NOTE | 2024-04-21 15:33 | PC.SS ---
Resident seen by automotive upholsterer/Dr. Berry for routine toe nail trim, no new orders or recommendation to continue current care.
--- NOTE | 2024-04-21 16:28 | PC.SS ---
Resident seen by Cap Machine Operator Dr. Castaneda for annual optometry consultation. Resident tolerated treatment well, no new orders or recommendations, resident will continue current care.
[2024-04-21] MEDS: SENNOSIDES 8.6 MG TABLET 17.2 MG GT (20:35)
[2024-04-21] MEDS: LOSARTAN 100 MG TABLET GT (20:35)
[2024-04-22] VITALS (7 sets, daily range): BP systolic 120–155; BP diastolic 69–92; PULSE 60–87; RESP 16–20; TEMP 35.9–36.2; O2SAT 93–98
[2024-04-22] MEDS: ESOMEPRAZOLE 40 MG GT (09:53)
[2024-04-22] MEDS: SODIUM CHLORIDE TAB 1,000 MG TABLET.SOL 1000 MG GT ×2 (09:54→20:45)
[2024-04-22] MEDS: SOD PHOS DI, MONO/K PHOS MONO 250 MG TABLET GT (09:54)
[2024-04-22] MEDS: MULTIVIT-MIN/IRON FUM/FOLIC AC 1 EACH TABLET GT (09:54)
[2024-04-22] MEDS: LOSARTAN 100 MG TABLET GT (20:45)
[2024-04-22] MEDS: SENNOSIDES 8.6 MG TABLET 17.2 MG GT (20:45)
[2024-04-22] MEDS: MAGNESIUM HYDROXIDE 30 ML ORAL SUSP ML GT (22:00)
[2024-04-23] VITALS (7 sets, daily range): BP systolic 100–132; BP diastolic 62–83; PULSE 51–69; RESP 16–20; TEMP 36–36.2; O2SAT 94–98
[2024-04-23] MEDS: SODIUM CHLORIDE TAB 1,000 MG TABLET.SOL 1000 MG GT ×2 (09:15→21:00)
[2024-04-23] MEDS: SOD PHOS DI, MONO/K PHOS MONO 250 MG TABLET GT (09:15)
[2024-04-23] MEDS: MULTIVIT-MIN/IRON FUM/FOLIC AC 1 EACH TABLET GT (09:15)
[2024-04-23] MEDS: ESOMEPRAZOLE 40 MG GT (09:15)
[2024-04-23] MEDS: SENNOSIDES 8.6 MG TABLET 17.2 MG GT (21:00)
[2024-04-24] VITALS (7 sets, daily range): BP systolic 95–164; BP diastolic 57–87; PULSE 47–63; RESP 16–20; TEMP 36.1–36.3; O2SAT 96–98
[2024-04-24] MEDS: SODIUM CHLORIDE TAB 1,000 MG TABLET.SOL 1000 MG GT ×2 (08:06→21:00)
[2024-04-24] MEDS: MULTIVIT-MIN/IRON FUM/FOLIC AC 1 EACH TABLET GT (08:06)
[2024-04-24] MEDS: SOD PHOS DI, MONO/K PHOS MONO 250 MG TABLET GT (08:06)
[2024-04-24] MEDS: ESOMEPRAZOLE 40 MG GT (08:06)
--- NOTE | 2024-04-24 17:50 | PD.SAPROG ---
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 (2) Epilepsy, unspecified, not intractable, without status epilepticus: Status: Chronic (3) Essential (primary) hypertension: Status: Chronic (4) Tracheostomy status: Status: Chronic (5) Gastrostomy status: Status: Chronic (6) Chronic respiratory failure, unspecified whether with hypoxia or hypercapnia: Status: Chronic (7) Chronic hyponatremia: Status: Chronic SUBJECTIVE Fever:: none GI:: none Shortness of Breath:: none GI:: no complaints Pain:: none OBJECTIVE Most recent vital signs: Last Vital Signs Temp 97.0 F 04/24/24 17:44 Pulse 54 L 04/24/24 17:44 Resp 20 04/24/24 17:44 BP 164/77 H 04/24/24 17:44 Pulse Ox 96 04/24/24 17:44 O2 Del Method Blow-by 04/24/24 17:44 O2 Flow Rate 6 04/24/24 07:20 FiO2 28 04/24/24 07:20 Neurological:: alert Speech:: nods head, mouths words (sometimes) and appropriate Answers questions:: sometimes Respiratory:: shallow breathing Cardiovascular: RRR Abdomen: soft and nontender Extremities:: deformities Decubitus:: none Tracheostomy:: to blow by Feeding per:: G tube Complaints:: none ASSESSMENT & PLAN Assessment: 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 No pain issues, and remains comfortable. Ice chips for some oral gratification tried with success without any cough or aspiration and continued.Remains fully dependent for care. interacts some and mostly happy. Tendency for Hypo-natremia on labs being monitored and addressed. No clinical change. Plan: All treatment reviewed and continued.
[2024-04-24] MEDS: SENNOSIDES 8.6 MG TABLET 17.2 MG GT (21:00)
[2024-04-24] MEDS: LOSARTAN 100 MG TABLET GT (21:00)
[2024-04-25] VITALS (9 sets, daily range): BP systolic 125–143; BP diastolic 60–74; PULSE 51–78; RESP 16–20; TEMP 36.1; O2SAT 93–99
[2024-04-25] MEDS: ESOMEPRAZOLE 40 MG GT (09:24)
[2024-04-25] MEDS: SOD PHOS DI, MONO/K PHOS MONO 250 MG TABLET GT (09:25)
[2024-04-25] MEDS: SODIUM CHLORIDE TAB 1,000 MG TABLET.SOL 1000 MG GT ×2 (09:25→21:47)
[2024-04-25] MEDS: MULTIVIT-MIN/IRON FUM/FOLIC AC 1 EACH TABLET GT (09:25)
[2024-04-25] MEDS: LOSARTAN 100 MG TABLET GT (21:45)
[2024-04-26] VITALS (7 sets, daily range): BP systolic 129–161; BP diastolic 73–92; PULSE 54–73; RESP 16–21; TEMP 36.3–36.6; O2SAT 94–97
[2024-04-26] MEDS: ESOMEPRAZOLE 40 MG GT (09:56)
[2024-04-26] MEDS: MULTIVIT-MIN/IRON FUM/FOLIC AC 1 EACH TABLET GT (09:56)
[2024-04-26] MEDS: SOD PHOS DI, MONO/K PHOS MONO 250 MG TABLET GT (09:56)
[2024-04-26] MEDS: SODIUM CHLORIDE TAB 1,000 MG TABLET.SOL 1000 MG GT ×2 (09:57→21:21)
[2024-04-26] MEDS: LOSARTAN 100 MG TABLET GT (21:20)
[2024-04-26] MEDS: SENNOSIDES 8.6 MG TABLET 17.2 MG GT (21:21)
[2024-04-27] VITALS (7 sets, daily range): BP systolic 128–155; BP diastolic 67–96; PULSE 62–98; RESP 18–28; TEMP 35.9–36.8; O2SAT 93–98
[2024-04-27] MEDS: SODIUM CHLORIDE TAB 1,000 MG TABLET.SOL 1000 MG GT ×2 (09:51→20:17)
[2024-04-27] MEDS: SOD PHOS DI, MONO/K PHOS MONO 250 MG TABLET GT (09:51)
[2024-04-27] MEDS: MULTIVIT-MIN/IRON FUM/FOLIC AC 1 EACH TABLET GT (09:51)
[2024-04-27] MEDS: ESOMEPRAZOLE 40 MG GT (09:51)
[2024-04-27] MEDS: ALBUTEROL INHALER 200 PUFF/INH INHALER INH (19:15)
--- NOTE | 2024-04-27 19:35 | PC.NURSE ---
RESIDENT WITH [employer], LABORED BREATHING, RR 29, LS COARSE. RT LICHA AT BEDSIDE,GIVEN BREATING TX. FIO2 INCREASED TO 35 %. RESIDENT GOOD RESPONSE TO TREATMENT. O2 SAT INCREASED TO 95% AND RR 23 LESS LABORED. CONTINUE TO MONITOR.
[2024-04-27] MEDS: LOSARTAN 100 MG TABLET GT (20:16)
[2024-04-27] MEDS: SENNOSIDES 8.6 MG TABLET 17.2 MG GT (20:16)
[2024-04-27] MEDS: ACETAMINOPHEN 325 MG TABLET 650 MG GT (20:17)
[2024-04-28] VITALS (7 sets, daily range): BP systolic 113–180; BP diastolic 69–96; PULSE 66–76; RESP 18–26; TEMP 36.1–36.6; O2SAT 95–97
--- NOTE | 2024-04-28 | PC.NURSE ---
RESIDENT SLEEPING. NO DISTRESS NOTED. CONTINUE TO MONITOR. O2 SAT 95% ON 35% FI0\2 10L.
--- NOTE | 2024-04-28 02:00 | PC.NURSE ---
RT HURT DECREASED FIO2 TO 30%. RESIDENT AWAKE, TOLERATING NEW FI02 WELL. O2 SAT 95%. CONTINUE TO MONITOR. NO DISTRESS NOTED.
[2024-04-28] MEDS: IPRATROPIUM BROMIDE 200 PUFF/INH INHALER INH (04:30)
[2024-04-28] MEDS: ALBUTEROL INHALER 200 PUFF/INH INHALER INH (04:30)
[2024-04-28] MEDS: SODIUM CHLORIDE TAB 1,000 MG TABLET.SOL 1000 MG GT ×2 (08:45→20:46)
[2024-04-28] MEDS: SOD PHOS DI, MONO/K PHOS MONO 250 MG TABLET GT (08:45)
[2024-04-28] MEDS: ESOMEPRAZOLE 40 MG GT (08:45)
[2024-04-28] MEDS: MULTIVIT-MIN/IRON FUM/FOLIC AC 1 EACH TABLET GT (08:45)
[2024-04-28] MEDS: LOSARTAN 100 MG TABLET GT (20:46)
[2024-04-28] MEDS: SENNOSIDES 8.6 MG TABLET 17.2 MG GT (20:46)
--- NOTE | 2024-04-28 21:52 | PD.SAPROG ---
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 (2) Epilepsy, unspecified, not intractable, without status epilepticus: Status: Chronic (3) Essential (primary) hypertension: Status: Chronic (4) Tracheostomy status: Status: Chronic (5) Gastrostomy status: Status: Chronic (6) Chronic respiratory failure, unspecified whether with hypoxia or hypercapnia: Status: Chronic (7) Chronic hyponatremia: Status: Chronic SUBJECTIVE Fever:: none GI:: none Shortness of Breath:: none GI:: no complaints Pain:: none OBJECTIVE Most recent vital signs: Last Vital Signs Temp 97.8 F 04/28/24 18:00 Pulse 73 04/28/24 20:46 Resp 20 04/28/24 18:00 BP 139/80 H 04/28/24 20:46 Pulse Ox 96 04/28/24 18:00 O2 Del Method Blow-by 04/28/24 18:00 O2 Flow Rate 6 04/28/24 07:05 FiO2 28 04/28/24 07:05 Neurological:: alert Speech:: nods head, mouths words (sometimes) and appropriate Answers questions:: sometimes Respiratory:: shallow breathing Cardiovascular: RRR Abdomen: soft and nontender Extremities:: deformities Decubitus:: none Tracheostomy:: to blow by Feeding per:: G tube Complaints:: none ASSESSMENT & PLAN Assessment: 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 No pain issues, and remains comfortable. Ice chips for some oral gratification tried with success without any cough or aspiration and continued.Remains fully dependent for care. interacts some and mostly happy. Tendency for Hypo-natremia on labs being monitored and addressed. No clinical change. Plan: All treatment reviewed and continued.
[2024-04-29] VITALS (8 sets, daily range): BP systolic 132–151; BP diastolic 75–96; PULSE 57–101; RESP 17–21; TEMP 36–36.1; O2SAT 95–99
[2024-04-29] MEDS: ALBUTEROL INHALER 200 PUFF/INH INHALER INH (02:58)
[2024-04-29] MEDS: MAGNESIUM HYDROXIDE 30 ML ORAL SUSP ML GT (05:58)
[2024-04-29] MEDS: SODIUM CHLORIDE TAB 1,000 MG TABLET.SOL 1000 MG GT ×2 (08:02→20:31)
[2024-04-29] MEDS: ESOMEPRAZOLE 40 MG GT (08:02)
[2024-04-29] MEDS: SOD PHOS DI, MONO/K PHOS MONO 250 MG TABLET GT (08:02)
[2024-04-29] MEDS: MULTIVIT-MIN/IRON FUM/FOLIC AC 1 EACH TABLET GT (08:02)
[2024-04-29] MEDS: SENNOSIDES 8.6 MG TABLET 17.2 MG GT (20:31)
[2024-04-29] MEDS: LOSARTAN 100 MG TABLET GT (20:31)
[2024-04-30] VITALS (8 sets, daily range): BP systolic 106–160; BP diastolic 66–89; PULSE 56–80; RESP 17–22; TEMP 36.1–36.2; O2SAT 95–97
[2024-04-30] MEDS: ESOMEPRAZOLE 40 MG GT (09:53)
[2024-04-30] MEDS: SOD PHOS DI, MONO/K PHOS MONO 250 MG TABLET GT (09:54)
[2024-04-30] MEDS: MULTIVIT-MIN/IRON FUM/FOLIC AC 1 EACH TABLET GT (09:56)
[2024-04-30] MEDS: SODIUM CHLORIDE TAB 1,000 MG TABLET.SOL 1000 MG GT ×2 (09:57→20:45)
--- NOTE | 2024-04-30 13:40 | PD.SAPROG ---
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 (2) Epilepsy, unspecified, not intractable, without status epilepticus: Status: Chronic (3) Essential (primary) hypertension: Status: Chronic (4) Tracheostomy status: Status: Chronic (5) Gastrostomy status: Status: Chronic (6) Chronic respiratory failure, unspecified whether with hypoxia or hypercapnia: Status: Chronic (7) Chronic hyponatremia: Status: Chronic SUBJECTIVE Fever:: none GI:: none Shortness of Breath:: none GI:: no complaints Pain:: none OBJECTIVE Most recent vital signs: Last Vital Signs Temp 97.0 F 05/04/24 11:07 Pulse 84 05/04/24 11:07 Resp 20 05/04/24 11:07 BP 136/83 H 05/04/24 11:07 Pulse Ox 96 05/04/24 07:40 O2 Del Method Blow-by 05/04/24 06:00 O2 Flow Rate 6 05/04/24 07:40 FiO2 28 05/04/24 07:40 Neurological:: alert Speech:: nods head, mouths words (sometimes) and appropriate Answers questions:: sometimes Respiratory:: shallow breathing Cardiovascular: RRR Abdomen: soft and nontender Extremities:: deformities Decubitus:: none Tracheostomy:: to blow by Feeding per:: G tube Complaints:: none ASSESSMENT & PLAN Assessment: 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 No pain issues, and remains comfortable. Ice chips for some oral gratification tried with success without any cough or aspiration and continued.Remains fully dependent for care. interacts some and mostly happy. Tendency for Hypo-natremia on labs being monitored and addressed. No clinical change. Plan: All treatment reviewed and continued.
--- NOTE | 2024-04-30 16:19 | PC.SS ---
Room change: Resident moved from room 125A in to room 117B, this SSD notified VU Griffiths of room change, no questions or concerns. This SSD will follow up with resident and monitor for changes in mood and behavior.
[2024-04-30] MEDS: SENNOSIDES 8.6 MG TABLET 17.2 MG GT (20:44)
[2024-05-01] VITALS (7 sets, daily range): BP systolic 114–163; BP diastolic 70–86; PULSE 62–83; RESP 16–20; TEMP 36.1–36.3; O2SAT 94–97
[2024-05-01] MEDS: ESOMEPRAZOLE 40 MG GT (09:13)
[2024-05-01] MEDS: MULTIVIT-MIN/IRON FUM/FOLIC AC 1 EACH TABLET GT (09:14)
[2024-05-01] MEDS: SOD PHOS DI, MONO/K PHOS MONO 250 MG TABLET GT (09:14)
[2024-05-01] MEDS: SODIUM CHLORIDE TAB 1,000 MG TABLET.SOL 1000 MG GT ×2 (09:14→20:07)
[2024-05-01] MEDS: LOSARTAN 100 MG TABLET GT (20:06)
[2024-05-01] MEDS: SENNOSIDES 8.6 MG TABLET 17.2 MG GT (20:07)
[2024-05-02] VITALS: BP 123/78; PULSE 92; RESP 16; TEMP 36.3
[2024-05-02 06:30] VITALS: PULSE 66; RESP 19; O2SAT 97
[2024-05-02] MEDS: ESOMEPRAZOLE 40 MG GT (08:04)
[2024-05-02] MEDS: SODIUM CHLORIDE TAB 1,000 MG TABLET.SOL 1000 MG GT ×2 (08:05→20:10)
[2024-05-02] MEDS: MULTIVIT-MIN/IRON FUM/FOLIC AC 1 EACH TABLET GT (08:05)
[2024-05-02] MEDS: SOD PHOS DI, MONO/K PHOS MONO 250 MG TABLET GT (08:05)
[2024-05-02 09:05] LABS: Albumin, Serum 4.5 gm/dL (3.4-4.8); Anion Gap 6 (7-16); BUN/Creatinine Ratio 38 Ratio (12-20); Blood Urea Nitrogen 15 mg/dL (9-23); Calcium 10.0 mg/dL (8.3-10.6); Calcium (Corrected) 10.0 mg/dL (8.5-10.1); Carbon Dioxide 29.7 mMol/L (20.0-31.0); Chloride 88 mMol/L (98-107); Creatinine (Component) 0.4 mg/dL (0.6-1.3); Estimated Creatinine Clearance 103.5 mL/min (>60); Glucose 100 mg/dL (74-106); Osmolality,Calculated 250 (275-295); Phosphorous 3.7 mg/dL (2.4-5.1); Potassium 4.3 mMol/L (3.4-5.1); Sodium 124 mMol/L (136-145); eGFR > 60 See Note
--- NOTE | 2024-05-02 11:09 | PC.NURSE ---
Renal panel drawn today with sodium level of 124 , resident on NaCl 1 gm BID and on fluid restriction of 700 ml max q shift. Remains to be stable and alert. Called Dr Gonsalez and made aware with order received to mix 1 gm of Nacl to resident's H2O 700 ml of water that is being used to flush on her gtube. Resident to continue the NaCl 1 gm BID and to repeat the Renal panel in 2 days
[2024-05-02 11:34] VITALS: BP 179/84; PULSE 99; RESP 20; TEMP 36.4
--- NOTE | 2024-05-02 16:19 | PC.NURSE ---
Eliana has remain in good spirits. No emotional distress noted throughout this shift. Will continue to monitor.
[2024-05-02 17:51] VITALS: BP 136/63; PULSE 86; RESP 17; TEMP 36.4; O2SAT 96
[2024-05-02 17:52] VITALS: PULSE 62; RESP 18; O2SAT 96
[2024-05-02 20:09] VITALS: BP 148/82; PULSE 79
[2024-05-02] MEDS: LOSARTAN 100 MG TABLET GT (20:09)
[2024-05-02] MEDS: SENNOSIDES 8.6 MG TABLET 17.2 MG GT (20:10)
--- NOTE | 2024-05-02 23:05 | PC.NURSE ---
Psychosocial monitoring ongoing. No changes noted to resident. Pleasant and cooperative with care.
[2024-05-03] VITALS (8 sets, daily range): BP systolic 102–168; BP diastolic 68–91; PULSE 55–81; RESP 16–20; TEMP 35.9–36.2; O2SAT 96–98
[2024-05-03] MEDS: ACETAMINOPHEN 325 MG TABLET 650 MG GT (09:21)
[2024-05-03] MEDS: ESOMEPRAZOLE 40 MG GT (09:21)
[2024-05-03] MEDS: SODIUM CHLORIDE TAB 1,000 MG TABLET.SOL 1000 MG GT ×2 (09:21→21:22)
[2024-05-03] MEDS: MULTIVIT-MIN/IRON FUM/FOLIC AC 1 EACH TABLET GT (09:21)
[2024-05-03] MEDS: SOD PHOS DI, MONO/K PHOS MONO 250 MG TABLET GT (09:21)
[2024-05-03] MEDS: LOSARTAN 100 MG TABLET GT (21:21)
[2024-05-03] MEDS: SENNOSIDES 8.6 MG TABLET 17.2 MG GT (21:22)
[2024-05-04] VITALS (7 sets, daily range): BP systolic 123–144; BP diastolic 74–91; PULSE 62–88; RESP 16–20; TEMP 36.1–36.2; O2SAT 96–99
[2024-05-04 07:36] LABS: Albumin, Serum 4.4 gm/dL (3.4-4.8); Anion Gap 2 (7-16); BUN/Creatinine Ratio 35 Ratio (12-20); Blood Urea Nitrogen 14 mg/dL (9-23); Calcium 10.0 mg/dL (8.3-10.6); Calcium (Corrected) 10.0 mg/dL (8.5-10.1); Carbon Dioxide 29.8 mMol/L (20.0-31.0); Chloride 89 mMol/L (98-107); Creatinine (Component) 0.4 mg/dL (0.6-1.3); Estimated Creatinine Clearance 103.5 mL/min (>60); Glucose 106 mg/dL (74-106); Osmolality,Calculated 244 (275-295); Phosphorous 4.0 mg/dL (2.4-5.1); Potassium 4.4 mMol/L (3.4-5.1); Sodium 121 mMol/L (136-145); eGFR > 60 See Note
[2024-05-04] MEDS: ACETAMINOPHEN 325 MG TABLET 650 MG GT (07:49)
[2024-05-04] MEDS: SODIUM CHLORIDE TAB 1,000 MG TABLET.SOL 1000 MG GT ×2 (07:59→21:11)
[2024-05-04] MEDS: ESOMEPRAZOLE 40 MG GT (07:59)
[2024-05-04] MEDS: SOD PHOS DI, MONO/K PHOS MONO 250 MG TABLET GT (07:59)
[2024-05-04] MEDS: MULTIVIT-MIN/IRON FUM/FOLIC AC 1 EACH TABLET GT (07:59)
--- NOTE | 2024-05-04 13:18 | PC.NURSE ---
NOtified regarding latest lab CMP Na+ 121. Received new orders. and repeat BMP in AM.
--- NOTE | 2024-05-04 17:25 | PC.NURSE ---
Psychosocial monitoring. Resident pleasant & cooperative with care. No s/s of any distress or discomfort noticed this shift. Call light in reach. Will continue to monitor.
[2024-05-04] MEDS: SENNOSIDES 8.6 MG TABLET 17.2 MG GT (21:11)
[2024-05-04] MEDS: LOSARTAN 100 MG TABLET GT (21:11)
--- NOTE | 2024-05-05 00:44 | PC.NURSE ---
Psychosocial monitoring. No changes this shift. patient is asleep with no s/s of discomfort or distress. Call light within reach. Plan of care and patient monitoring ongoing.
[2024-05-05 05:34] VITALS: BP 138/81; PULSE 62; RESP 18; TEMP 36.1; O2SAT 95
[2024-05-05 05:55] VITALS: PULSE 63; RESP 18; O2SAT 98
[2024-05-05] MEDS: SODIUM CHLORIDE 0.9% 1,000 ML BAG 100 ML IV (06:01)
[2024-05-05] MEDS: MULTIVIT-MIN/IRON FUM/FOLIC AC 1 EACH TABLET GT (09:00)
[2024-05-05] MEDS: ESOMEPRAZOLE 40 MG GT (09:00)
[2024-05-05] MEDS: SODIUM CHLORIDE TAB 1,000 MG TABLET.SOL 1000 MG GT ×2 (09:00→21:07)
[2024-05-05] MEDS: SOD PHOS DI, MONO/K PHOS MONO 250 MG TABLET GT (09:00)
[2024-05-05 10:32] LABS: Albumin, Serum 4.2 gm/dL (3.4-4.8); Anion Gap 6 (7-16); BUN/Creatinine Ratio 20 Ratio (12-20); Blood Urea Nitrogen 8 mg/dL (9-23); Calcium 9.4 mg/dL (8.3-10.6); Calcium (Corrected) 9.4 mg/dL (8.5-10.1); Carbon Dioxide 27.8 mMol/L (20.0-31.0); Chloride 95 mMol/L (98-107); Creatinine (Component) 0.4 mg/dL (0.6-1.3); Estimated Creatinine Clearance 103.5 mL/min (>60); Glucose 116 mg/dL (74-106); Osmolality,Calculated 258 (275-295); Phosphorous 3.6 mg/dL (2.4-5.1); Potassium 4.2 mMol/L (3.4-5.1); Sodium 129 mMol/L (136-145); eGFR > 60 See Note
[2024-05-05 12:00] VITALS: BP 126/84; PULSE 78; RESP 22; TEMP 36.1
--- NOTE | 2024-05-05 13:30 | PD.SAPROG ---
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 (2) Epilepsy, unspecified, not intractable, without status epilepticus: Status: Chronic (3) Essential (primary) hypertension: Status: Chronic (4) Tracheostomy status: Status: Chronic (5) Gastrostomy status: Status: Chronic (6) Chronic respiratory failure, unspecified whether with hypoxia or hypercapnia: Status: Chronic (7) Chronic hyponatremia: Status: Chronic SUBJECTIVE Fever:: none GI:: none Shortness of Breath:: none GI:: no complaints Pain:: none OBJECTIVE Most recent vital signs: Last Vital Signs Temp 96.9 F 05/09/24 18:00 Pulse 64 05/09/24 18:00 Resp 19 05/09/24 18:00 BP 107/71 05/09/24 18:00 Pulse Ox 98 05/09/24 18:00 O2 Del Method Blow-by 05/09/24 18:00 O2 Flow Rate 6 05/09/24 18:00 FiO2 28 05/09/24 18:00 Neurological:: alert Speech:: nods head, mouths words (sometimes) and appropriate Answers questions:: sometimes Respiratory:: shallow breathing Cardiovascular: RRR Abdomen: soft and nontender Extremities:: deformities Decubitus:: none Tracheostomy:: to blow by Feeding per:: G tube Complaints:: none ASSESSMENT & PLAN Assessment: 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 No pain issues, and remains comfortable. Ice chips for some oral gratification tried with success without any cough or aspiration and continued.Remains fully dependent for care. interacts some and mostly happy. Tendency for Hypo-natremia on labs being monitored and addressed. No clinical change. Electrolytes improving. Plan: All treatment reviewed and continued.
--- NOTE | 2024-05-05 16:13 | PC.NURSE ---
Dr Gonsalez made aware this morning about resident's Renal panel result with sodium level of 129, currently on NaCl 0.9 % at 100 ml/hr x 24 hours until 15:45. Order received to continue the IVF until lab to be drawn at 18:00
[2024-05-05 18:00] VITALS: BP 107/71; PULSE 71; RESP 22; TEMP 36.1; O2SAT 95
[2024-05-05 18:03] VITALS: PULSE 58; RESP 16; O2SAT 97
--- NOTE | 2024-05-05 18:06 | PC.NURSE ---
Psychosocial monitoring. Resident awake and watching TV. No s/s of distress or discomfort noted. Will continue with current plan of care.
[2024-05-05 19:25] LABS: Albumin, Serum 4.1 gm/dL (3.4-4.8); Anion Gap 5 (7-16); BUN/Creatinine Ratio 20 Ratio (12-20); Blood Urea Nitrogen 8 mg/dL (9-23); Calcium 9.4 mg/dL (8.3-10.6); Calcium (Corrected) 9.4 mg/dL (8.5-10.1); Carbon Dioxide 27.3 mMol/L (20.0-31.0); Chloride 97 mMol/L (98-107); Creatinine (Component) 0.4 mg/dL (0.6-1.3); Estimated Creatinine Clearance 103.5 mL/min (>60); Glucose 101 mg/dL (74-106); Osmolality,Calculated 257 (275-295); Phosphorous 3.2 mg/dL (2.4-5.1); Potassium 4.2 mMol/L (3.4-5.1); Sodium 129 mMol/L (136-145); eGFR > 60 See Note
--- NOTE | 2024-05-05 20:13 | PC.NURSE ---
Notified regarding repeat renal panel results of Na+ 129, new order to start on Prednisone 5mg daily x 2 weeks, repeat renal panels in 3 days )05/08), 7 days (05/12) and 14 days (05/19) to monitor NA+. Resident remains on NS flushes PGT.
[2024-05-05 21:07] VITALS: BP 148/86; PULSE 76
[2024-05-05] MEDS: SENNOSIDES 8.6 MG TABLET 17.2 MG GT (21:07)
[2024-05-05] MEDS: LOSARTAN 100 MG TABLET GT (21:07)
[2024-05-05] MEDS: MAGNESIUM HYDROXIDE 30 ML ORAL SUSP ML GT (21:08)
[2024-05-06] VITALS (7 sets, daily range): BP systolic 131–142; BP diastolic 83–86; PULSE 65–90; RESP 18–20; TEMP 36.2–36.4; O2SAT 96–97
[2024-05-06] MEDS: ESOMEPRAZOLE 40 MG GT (07:59)
[2024-05-06] MEDS: MULTIVIT-MIN/IRON FUM/FOLIC AC 1 EACH TABLET GT (07:59)
[2024-05-06] MEDS: SOD PHOS DI, MONO/K PHOS MONO 250 MG TABLET GT (07:59)
[2024-05-06] MEDS: SODIUM CHLORIDE TAB 1,000 MG TABLET.SOL 1000 MG GT ×2 (08:01→20:54)
[2024-05-06] MEDS: LOSARTAN 100 MG TABLET GT (20:53)
[2024-05-06] MEDS: SENNOSIDES 8.6 MG TABLET 17.2 MG GT (20:54)
[2024-05-07] VITALS (7 sets, daily range): BP systolic 114–154; BP diastolic 75–89; PULSE 57–97; RESP 16–21; TEMP 36.1–36.4; O2SAT 95–97
[2024-05-07] MEDS: ESOMEPRAZOLE 40 MG GT (09:05)
[2024-05-07] MEDS: MULTIVIT-MIN/IRON FUM/FOLIC AC 1 EACH TABLET GT (09:05)
[2024-05-07] MEDS: SOD PHOS DI, MONO/K PHOS MONO 250 MG TABLET GT (09:05)
[2024-05-07] MEDS: SODIUM CHLORIDE TAB 1,000 MG TABLET.SOL 1000 MG GT ×2 (09:06→20:09)
[2024-05-07] MEDS: LOSARTAN 100 MG TABLET GT (20:09)
[2024-05-07] MEDS: SENNOSIDES 8.6 MG TABLET 17.2 MG GT (20:09)
[2024-05-08] VITALS (7 sets, daily range): BP systolic 118–141; BP diastolic 43–83; PULSE 56–73; RESP 16–24; TEMP 36.1–36.7; O2SAT 96–99
[2024-05-08 06:09] LABS: Albumin, Serum 4.3 gm/dL (3.4-4.8); Anion Gap 4 (7-16); BUN/Creatinine Ratio 28 Ratio (12-20); Blood Urea Nitrogen 14 mg/dL (9-23); Calcium 9.8 mg/dL (8.3-10.6); Calcium (Corrected) 9.8 mg/dL (8.5-10.1); Carbon Dioxide 31.4 mMol/L (20.0-31.0); Chloride 94 mMol/L (98-107); Creatinine (Component) 0.5 mg/dL (0.6-1.3); Estimated Creatinine Clearance 82.8 mL/min (>60); Glucose 116 mg/dL (74-106); Osmolality,Calculated 260 (275-295); Phosphorous 3.9 mg/dL (2.4-5.1); Potassium 4.1 mMol/L (3.4-5.1); Sodium 129 mMol/L (136-145); eGFR > 60 See Note
[2024-05-08] MEDS: ESOMEPRAZOLE 40 MG GT (08:09)
[2024-05-08] MEDS: SODIUM CHLORIDE TAB 1,000 MG TABLET.SOL 1000 MG GT ×2 (08:09→21:35)
[2024-05-08] MEDS: SOD PHOS DI, MONO/K PHOS MONO 250 MG TABLET GT (08:09)
[2024-05-08] MEDS: MULTIVIT-MIN/IRON FUM/FOLIC AC 1 EACH TABLET GT (08:09)
--- NOTE | 2024-05-08 12:38 | PC.NURSE ---
Reviewed lab results with . regarding Na= level 133 at this time. order already set on schedule 05/12, 05/19. Rsident remains stable no changes noted at this time. Will continue to monitor.
[2024-05-08] MEDS: LOSARTAN 100 MG TABLET GT (21:27)
[2024-05-08] MEDS: SENNOSIDES 8.6 MG TABLET 17.2 MG GT (21:29)
[2024-05-09] VITALS (8 sets, daily range): BP systolic 104–139; BP diastolic 69–93; PULSE 57–68; RESP 17–20; TEMP 36.1–36.4; O2SAT 97–98
[2024-05-09] MEDS: MULTIVIT-MIN/IRON FUM/FOLIC AC 1 EACH TABLET GT (08:02)
[2024-05-09] MEDS: ESOMEPRAZOLE 40 MG GT (08:02)
[2024-05-09] MEDS: SOD PHOS DI, MONO/K PHOS MONO 250 MG TABLET GT (08:02)
[2024-05-09] MEDS: SODIUM CHLORIDE TAB 1,000 MG TABLET.SOL 1000 MG GT ×2 (08:03→21:37)
--- NOTE | 2024-05-09 20:14 | ESPR_ITS ---
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 (2) Epilepsy, unspecified, not intractable, without status epilepticus: Status: Chronic (3) Essential (primary) hypertension: Status: Chronic (4) Tracheostomy status: Status: Chronic (5) Gastrostomy status: Status: Chronic (6) Chronic respiratory failure, unspecified whether with hypoxia or hypercapnia: Status: Chronic (7) Chronic hyponatremia: Status: Chronic SUBJECTIVE Fever:: none GI:: none Shortness of Breath:: none GI:: no complaints Pain:: none OBJECTIVE Most recent vital signs: Last Vital Signs Temp 96.9 F 05/09/24 18:00 Pulse 64 05/09/24 18:00 Resp 19 05/09/24 18:00 BP 107/71 05/09/24 18:00 Pulse Ox 98 05/09/24 18:00 O2 Del Method Blow-by 05/09/24 18:00 O2 Flow Rate 6 05/09/24 18:00 FiO2 28 05/09/24 18:00 Neurological:: alert Speech:: nods head, mouths words (sometimes) and appropriate Answers questions:: sometimes Respiratory:: shallow breathing Cardiovascular: RRR Abdomen: soft and nontender Extremities:: deformities Decubitus:: none Tracheostomy:: to blow by Feeding per:: G tube Complaints:: none ASSESSMENT & PLAN Assessment: 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 No pain issues, and remains comfortable. Ice chips for some oral gratification tried with success without any cough or aspiration and continued.Remains fully dependent for care. interacts some and mostly happy. Tendency for Hypo-natremia on labs being monitored and addressed. No clinical change. Electrolytes improving. Plan: All treatment reviewed and continued.
[2024-05-09] MEDS: SENNOSIDES 8.6 MG TABLET 17.2 MG GT (21:36)
[2024-05-09] MEDS: LOSARTAN 100 MG TABLET GT (21:36)
[2024-05-10] VITALS (7 sets, daily range): BP systolic 111–132; BP diastolic 74–78; PULSE 55–82; RESP 16–20; TEMP 36.1–36.4; O2SAT 96–99
[2024-05-10] MEDS: MULTIVIT-MIN/IRON FUM/FOLIC AC 1 EACH TABLET GT (08:14)
[2024-05-10] MEDS: SOD PHOS DI, MONO/K PHOS MONO 250 MG TABLET GT (08:14)
[2024-05-10] MEDS: SODIUM CHLORIDE TAB 1,000 MG TABLET.SOL 1000 MG GT ×2 (08:14→20:50)
[2024-05-10] MEDS: ESOMEPRAZOLE 40 MG GT (08:14)
[2024-05-10] MEDS: LOSARTAN 100 MG TABLET GT (20:48)
[2024-05-10] MEDS: SENNOSIDES 8.6 MG TABLET 17.2 MG GT (20:50)
[2024-05-10] MEDS: MAGNESIUM HYDROXIDE 30 ML ORAL SUSP ML GT (21:19)
[2024-05-11 05:16] VITALS: BP 121/80; PULSE 62; RESP 16; TEMP 36.1; O2SAT 98
[2024-05-11 06:05] VITALS: PULSE 65; RESP 18; O2SAT 98
[2024-05-11] MEDS: ACETAMINOPHEN 325 MG TABLET 650 MG GT (09:14)
[2024-05-11] MEDS: SODIUM CHLORIDE TAB 1,000 MG TABLET.SOL 1000 MG GT ×2 (09:14→21:11)
[2024-05-11] MEDS: SOD PHOS DI, MONO/K PHOS MONO 250 MG TABLET GT (09:14)
[2024-05-11] MEDS: ESOMEPRAZOLE 40 MG GT (09:14)
[2024-05-11] MEDS: MULTIVIT-MIN/IRON FUM/FOLIC AC 1 EACH TABLET GT (09:14)
[2024-05-11 12:00] VITALS: BP 139/75; PULSE 87; RESP 18; TEMP 35.9; O2SAT 99
[2024-05-11 17:06] VITALS: BP 123/80; PULSE 89; RESP 18; TEMP 36.2
[2024-05-11 19:05] VITALS: PULSE 67; PULSE 68; RESP 18; O2SAT 97
[2024-05-11 21:11] VITALS: BP 123/80; PULSE 89
[2024-05-11] MEDS: SENNOSIDES 8.6 MG TABLET 17.2 MG GT (21:11)
[2024-05-11] MEDS: LOSARTAN 100 MG TABLET GT (21:11)
[2024-05-12] VITALS (7 sets, daily range): BP systolic 117–125; BP diastolic 73–82; PULSE 67–95; RESP 18–20; TEMP 36.4–36.6; O2SAT 96–97
[2024-05-12] MEDS: MULTIVIT-MIN/IRON FUM/FOLIC AC 1 EACH TABLET GT (08:03)
[2024-05-12] MEDS: ESOMEPRAZOLE 40 MG GT (08:03)
[2024-05-12] MEDS: SOD PHOS DI, MONO/K PHOS MONO 250 MG TABLET GT (08:03)
[2024-05-12] MEDS: SODIUM CHLORIDE TAB 1,000 MG TABLET.SOL 1000 MG GT ×2 (08:03→20:39)
[2024-05-12 08:19] LABS: Albumin, Serum 4.2 gm/dL (3.4-4.8); Anion Gap 4 (7-16); BUN/Creatinine Ratio 34 Ratio (12-20); Blood Urea Nitrogen 17 mg/dL (9-23); Calcium 9.7 mg/dL (8.3-10.6); Calcium (Corrected) 9.7 mg/dL (8.5-10.1); Carbon Dioxide 29.0 mMol/L (20.0-31.0); Chloride 100 mMol/L (98-107); Creatinine (Component) 0.5 mg/dL (0.6-1.3); Estimated Creatinine Clearance 82.8 mL/min (>60); Glucose 115 mg/dL (74-106); Osmolality,Calculated 268 (275-295); Phosphorous 3.8 mg/dL (2.4-5.1); Potassium 4.0 mMol/L (3.4-5.1); Sodium 133 mMol/L (136-145); eGFR > 60 See Note
[2024-05-12] MEDS: LOSARTAN 100 MG TABLET GT (20:38)
[2024-05-12] MEDS: SENNOSIDES 8.6 MG TABLET 17.2 MG GT (20:39)
[2024-05-13] VITALS: BP 122/84; PULSE 83; RESP 22; TEMP 36.5
[2024-05-13 05:59] VITALS: PULSE 70; RESP 18; O2SAT 95
[2024-05-13 06:00] VITALS: BP 131/92; PULSE 75; RESP 22; TEMP 36.4; O2SAT 95
[2024-05-13] MEDS: MULTIVIT-MIN/IRON FUM/FOLIC AC 1 EACH TABLET GT (08:00)
[2024-05-13] MEDS: ESOMEPRAZOLE 40 MG GT (08:00)
[2024-05-13] MEDS: SODIUM CHLORIDE TAB 1,000 MG TABLET.SOL 1000 MG GT ×2 (08:00→20:07)
[2024-05-13] MEDS: SOD PHOS DI, MONO/K PHOS MONO 250 MG TABLET GT (08:00)
--- NOTE | 2024-05-13 12:05 | PC.SS ---
Resident is seen in activity room via Kaleigh chair, she is well groomed and appears comfortable with no signs of distress. Resident has no changes in care or condition, she remains on blow by with trach in place and GT for medication and nutrition. This SSD will continue to make contact with resident and offer support as she needs it.
[2024-05-13 18:10] VITALS: PULSE 62; RESP 16; O2SAT 98
[2024-05-13 20:05] VITALS: BP 145/71; PULSE 57
[2024-05-13] MEDS: SENNOSIDES 8.6 MG TABLET 17.2 MG GT (20:05)
[2024-05-13] MEDS: LOSARTAN 100 MG TABLET GT (20:05)
--- NOTE | 2024-05-13 21:45 | ESPR_ITS ---
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 (2) Epilepsy, unspecified, not intractable, without status epilepticus: Status: Chronic (3) Essential (primary) hypertension: Status: Chronic (4) Tracheostomy status: Status: Chronic (5) Gastrostomy status: Status: Chronic (6) Chronic respiratory failure, unspecified whether with hypoxia or hypercapnia: Status: Chronic (7) Chronic hyponatremia: Status: Chronic SUBJECTIVE Fever:: none GI:: none Shortness of Breath:: none GI:: no complaints Pain:: none OBJECTIVE Most recent vital signs: Last Vital Signs Temp 97.5 F 05/13/24 06:00 Pulse 57 L 05/13/24 20:05 Resp 22 H 05/13/24 06:00 BP 145/71 H 05/13/24 20:05 Pulse Ox 95 05/13/24 06:00 O2 Del Method Blow-by 05/13/24 06:00 O2 Flow Rate 6 05/13/24 05:59 FiO2 28 05/13/24 05:59 Neurological:: alert Speech:: nods head, mouths words (sometimes) and appropriate Answers questions:: sometimes Respiratory:: shallow breathing Cardiovascular: RRR Abdomen: soft and nontender Extremities:: deformities Decubitus:: none Tracheostomy:: to blow by Feeding per:: G tube Complaints:: none ASSESSMENT & PLAN Assessment: Pt fully dependent for intermediate care. No pain issues, and remains comfortable. Ice chips for some oral gratification tried with success without any cough or aspiration and continued.Remains fully dependent for care. interacts some and mostly happy. Tendency for Hypo-natremia on labs being monitored and addressed. No clinical change. Electrolytes improving. Plan: All treatment reviewed and continued.
[2024-05-14] VITALS (8 sets, daily range): BP systolic 105–135; BP diastolic 70–85; PULSE 56–67; RESP 16–21; TEMP 36.1–36.3; O2SAT 96–98
[2024-05-14] MEDS: ESOMEPRAZOLE 40 MG GT (08:04)
[2024-05-14] MEDS: SOD PHOS DI, MONO/K PHOS MONO 250 MG TABLET GT (08:04)
[2024-05-14] MEDS: MULTIVIT-MIN/IRON FUM/FOLIC AC 1 EACH TABLET GT (08:04)
[2024-05-14] MEDS: SODIUM CHLORIDE TAB 1,000 MG TABLET.SOL 1000 MG GT ×2 (08:05→21:16)
--- NOTE | 2024-05-14 13:12 | PC.NURSE ---
Seen by Dr Gonsalez, no new orders made.
--- NOTE | 2024-05-14 16:18 | PC.SS ---
Room visit: Resident is laying in bed with head of the bed elevated with bryson light properly placed with no signs of distress. Resident is alert unable to make needs known with no speech, her daughter Homa Griffiths is her decision maker. Resident has no changes in care or condition, remains on blow by with trach in place and GT for medications and nutrition. Resident will remain in current care and will continue to have all subacute care needs met by staff. This SSD will continue to make daily contact with resident and monitor for changes in mood and behavior.
[2024-05-14] MEDS: LOSARTAN 100 MG TABLET GT (21:15)
[2024-05-14] MEDS: SENNOSIDES 8.6 MG TABLET 17.2 MG GT (21:16)
[2024-05-15 04:44] VITALS: BP 114/78; PULSE 59; RESP 16; TEMP 36.2
[2024-05-15 07:20] VITALS: PULSE 52; RESP 18; O2SAT 98; O2SAT 99
[2024-05-15] MEDS: ESOMEPRAZOLE 40 MG GT (09:22)
[2024-05-15] MEDS: SOD PHOS DI, MONO/K PHOS MONO 250 MG TABLET GT (09:23)
[2024-05-15] MEDS: MULTIVIT-MIN/IRON FUM/FOLIC AC 1 EACH TABLET GT (09:23)
[2024-05-15] MEDS: SODIUM CHLORIDE TAB 1,000 MG TABLET.SOL 1000 MG GT ×2 (09:23→20:14)
[2024-05-15 11:18] VITALS: BP 112/77; PULSE 58; RESP 17; TEMP 36.4; O2SAT 98
[2024-05-15 17:32] VITALS: BP 111/68; PULSE 67; RESP 20; TEMP 36.4
[2024-05-15 18:05] VITALS: PULSE 58; RESP 18; O2SAT 98; O2SAT 99
[2024-05-15 20:13] VITALS: BP 100/68; PULSE 58
[2024-05-15] MEDS: SENNOSIDES 8.6 MG TABLET 17.2 MG GT (20:13)
[2024-05-16] VITALS (7 sets, daily range): BP systolic 111–139; BP diastolic 70–91; PULSE 56–69; RESP 18–20; TEMP 36.1–36.2; O2SAT 97–99
[2024-05-16] MEDS: SOD PHOS DI, MONO/K PHOS MONO 250 MG TABLET GT (07:56)
[2024-05-16] MEDS: ESOMEPRAZOLE 40 MG GT (07:56)
[2024-05-16] MEDS: MULTIVIT-MIN/IRON FUM/FOLIC AC 1 EACH TABLET GT (07:57)
[2024-05-16] MEDS: SODIUM CHLORIDE TAB 1,000 MG TABLET.SOL 1000 MG GT ×2 (07:57→20:48)
[2024-05-16] MEDS: LOSARTAN 100 MG TABLET GT (20:47)
[2024-05-16] MEDS: SENNOSIDES 8.6 MG TABLET 17.2 MG GT (20:48)
[2024-05-17] VITALS (7 sets, daily range): BP systolic 106–160; BP diastolic 63–82; PULSE 55–79; RESP 18–22; TEMP 35.9–36.1; O2SAT 95–99
[2024-05-17] MEDS: MULTIVIT-MIN/IRON FUM/FOLIC AC 1 EACH TABLET GT (08:13)
[2024-05-17] MEDS: SOD PHOS DI, MONO/K PHOS MONO 250 MG TABLET GT (08:13)
[2024-05-17] MEDS: SODIUM CHLORIDE TAB 1,000 MG TABLET.SOL 1000 MG GT ×2 (08:13→20:40)
[2024-05-17] MEDS: ESOMEPRAZOLE 40 MG GT (08:13)
[2024-05-17] MEDS: LOSARTAN 100 MG TABLET GT (20:39)
[2024-05-17] MEDS: SENNOSIDES 8.6 MG TABLET 17.2 MG GT (20:40)
[2024-05-18] VITALS (7 sets, daily range): BP systolic 121–160; BP diastolic 68–84; PULSE 55–70; RESP 16–20; TEMP 36.1–36.3; O2SAT 96–99
[2024-05-18] MEDS: ESOMEPRAZOLE 40 MG GT (08:03)
[2024-05-18] MEDS: SODIUM CHLORIDE TAB 1,000 MG TABLET.SOL 1000 MG GT ×2 (08:03→20:02)
[2024-05-18] MEDS: SOD PHOS DI, MONO/K PHOS MONO 250 MG TABLET GT (08:03)
[2024-05-18] MEDS: MULTIVIT-MIN/IRON FUM/FOLIC AC 1 EACH TABLET GT (08:03)
--- NOTE | 2024-05-18 12:12 | PD.SAPROG ---
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 (2) Epilepsy, unspecified, not intractable, without status epilepticus: Status: Chronic (3) Essential (primary) hypertension: Status: Chronic (4) Tracheostomy status: Status: Chronic (5) Gastrostomy status: Status: Chronic (6) Chronic respiratory failure, unspecified whether with hypoxia or hypercapnia: Status: Chronic (7) Chronic hyponatremia: Status: Chronic SUBJECTIVE Fever:: none GI:: none Shortness of Breath:: none GI:: no complaints Pain:: none OBJECTIVE Most recent vital signs: Last Vital Signs Temp 97.2 F 05/18/24 11:23 Pulse 68 05/18/24 11:23 Resp 17 05/18/24 11:23 BP 160/84 H 05/18/24 11:23 Pulse Ox 96 05/18/24 06:05 O2 Del Method Blow-by 05/17/24 17:10 O2 Flow Rate 6 05/18/24 06:05 FiO2 28 05/18/24 06:05 Neurological:: alert Speech:: nods head, mouths words (sometimes) and appropriate Answers questions:: sometimes Respiratory:: shallow breathing Cardiovascular: RRR Abdomen: soft and nontender Extremities:: deformities Decubitus:: none Tracheostomy:: to blow by Feeding per:: G tube Complaints:: none ASSESSMENT & PLAN Assessment: 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 No pain issues, and remains comfortable. Ice chips for some oral gratification tried with success without any cough or aspiration and continued.Remains fully dependent for care. interacts some and mostly happy. Tendency for Hypo-natremia on labs being monitored and addressed. No clinical change. Electrolytes improved. Plan: All treatment reviewed and continued.
[2024-05-18] MEDS: SENNOSIDES 8.6 MG TABLET 17.2 MG GT (20:02)
[2024-05-18] MEDS: LOSARTAN 100 MG TABLET GT (20:02)
[2024-05-19] VITALS (7 sets, daily range): BP systolic 119–155; BP diastolic 62–94; PULSE 59–81; RESP 16–22; TEMP 36.1–36.2; O2SAT 92–99
[2024-05-19 07:33] LABS: Albumin, Serum 4.3 gm/dL (3.4-4.8); Anion Gap 5 (7-16); BUN/Creatinine Ratio 38 Ratio (12-20); Blood Urea Nitrogen 15 mg/dL (9-23); Calcium 9.6 mg/dL (8.3-10.6); Calcium (Corrected) 9.6 mg/dL (8.5-10.1); Carbon Dioxide 29.0 mMol/L (20.0-31.0); Chloride 97 mMol/L (98-107); Creatinine (Component) 0.4 mg/dL (0.6-1.3); Estimated Creatinine Clearance 102.1 mL/min (>60); Glucose 114 mg/dL (74-106); Osmolality,Calculated 264 (275-295); Phosphorous 3.5 mg/dL (2.4-5.1); Potassium 3.9 mMol/L (3.4-5.1); Sodium 131 mMol/L (136-145); eGFR > 60 See Note
[2024-05-19] MEDS: SOD PHOS DI, MONO/K PHOS MONO 250 MG TABLET GT (08:06)
[2024-05-19] MEDS: MULTIVIT-MIN/IRON FUM/FOLIC AC 1 EACH TABLET GT (08:06)
[2024-05-19] MEDS: ESOMEPRAZOLE 40 MG GT (08:06)
[2024-05-19] MEDS: SODIUM CHLORIDE TAB 1,000 MG TABLET.SOL 1000 MG GT ×2 (08:07→20:41)
--- NOTE | 2024-05-19 14:40 | PC.NURSE ---
Spoke with Dr Gonsalez and verbally reported resident's renal panel result with sodium level 131. Currently on Na cl 1 gm BID and NS flush PGT NS 700 ml max q shift. ON Renal panel q 3 months. Order received to repeat Renal panel in one week and to keep her on NS flush and Nacl tablet and to d/c prednisone.
[2024-05-19] MEDS: LOSARTAN 100 MG TABLET GT (20:40)
[2024-05-19] MEDS: SENNOSIDES 8.6 MG TABLET 17.2 MG GT (20:40)
[2024-05-20] VITALS (7 sets, daily range): BP systolic 119–131; BP diastolic 69–76; PULSE 58–97; RESP 16–22; TEMP 36.1–36.8; O2SAT 97–99
[2024-05-20] MEDS: ESOMEPRAZOLE 40 MG GT (09:57)
[2024-05-20] MEDS: SOD PHOS DI, MONO/K PHOS MONO 250 MG TABLET GT (09:58)
[2024-05-20] MEDS: MULTIVIT-MIN/IRON FUM/FOLIC AC 1 EACH TABLET GT (09:58)
[2024-05-20] MEDS: SODIUM CHLORIDE TAB 1,000 MG TABLET.SOL 1000 MG GT ×2 (09:58→21:32)
[2024-05-20] MEDS: SENNOSIDES 8.6 MG TABLET 17.2 MG GT (21:32)
[2024-05-20] MEDS: LOSARTAN 100 MG TABLET GT (21:32)
[2024-05-21] VITALS (7 sets, daily range): BP systolic 136–146; BP diastolic 78–89; PULSE 55–69; RESP 18–20; TEMP 36.1–36.2; O2SAT 96–98; BMI 28.0
[2024-05-21] MEDS: SOD PHOS DI, MONO/K PHOS MONO 250 MG TABLET GT (08:04)
[2024-05-21] MEDS: MULTIVIT-MIN/IRON FUM/FOLIC AC 1 EACH TABLET GT (08:04)
[2024-05-21] MEDS: ESOMEPRAZOLE 40 MG GT (08:04)
[2024-05-21] MEDS: SODIUM CHLORIDE TAB 1,000 MG TABLET.SOL 1000 MG GT ×2 (08:04→20:48)
--- NOTE | 2024-05-21 11:27 | PC.SS ---
Resident seen by Dr. Rivera/GUNNER for oral exam. Resident tolerated treatment will with no new recommendations. Resident to continue current care and will be seen by ANDREWS annually and PRN.
--- NOTE | 2024-05-21 17:07 | PD.SAPROG ---
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 (2) Epilepsy, unspecified, not intractable, without status epilepticus: Status: Chronic (3) Essential (primary) hypertension: Status: Chronic (4) Tracheostomy status: Status: Chronic (5) Gastrostomy status: Status: Chronic (6) Chronic respiratory failure, unspecified whether with hypoxia or hypercapnia: Status: Chronic (7) Chronic hyponatremia: Status: Chronic SUBJECTIVE Fever:: none GI:: none Shortness of Breath:: none GI:: no complaints Pain:: none OBJECTIVE Most recent vital signs: Last Vital Signs Temp 97.0 F 05/21/24 06:00 Pulse 62 05/21/24 06:12 Resp 18 05/21/24 06:12 BP 137/89 H 05/21/24 06:00 Pulse Ox 98 05/21/24 06:12 O2 Del Method Blow-by 05/21/24 06:00 O2 Flow Rate 6 05/21/24 06:12 FiO2 28 05/21/24 06:12 Neurological:: alert Speech:: nods head, mouths words (sometimes) and appropriate Answers questions:: sometimes Respiratory:: shallow breathing Cardiovascular: RRR Abdomen: soft and nontender Extremities:: deformities Decubitus:: none Tracheostomy:: to blow by Feeding per:: G tube Complaints:: none ASSESSMENT & PLAN Assessment: 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 No pain issues, and remains comfortable. Ice chips for some oral gratification tried with success without any cough or aspiration and continued.Remains fully dependent for care. interacts some and mostly happy. Tendency for Hypo-natremia on labs being monitored and addressed. No clinical change. Electrolytes improved. monitored regularly. Plan: All treatment reviewed and continued.
[2024-05-21] MEDS: CARBAMIDE PEROXIDE OTIC SOL 15 ML BTL 5 DROP BOTH EARS (20:48)
[2024-05-21] MEDS: LOSARTAN 100 MG TABLET GT (20:48)
[2024-05-21] MEDS: SENNOSIDES 8.6 MG TABLET 17.2 MG GT (20:48)
[2024-05-22] VITALS (7 sets, daily range): BP systolic 103–138; BP diastolic 67–86; PULSE 58–78; RESP 16–20; TEMP 36.1–36.3; O2SAT 97–98
[2024-05-22] MEDS: ESOMEPRAZOLE 40 MG GT (09:27)
[2024-05-22] MEDS: CARBAMIDE PEROXIDE OTIC SOL 15 ML BTL 5 DROP BOTH EARS ×2 (09:27→21:00)
[2024-05-22] MEDS: SOD PHOS DI, MONO/K PHOS MONO 250 MG TABLET GT (09:28)
[2024-05-22] MEDS: SODIUM CHLORIDE TAB 1,000 MG TABLET.SOL 1000 MG GT ×2 (09:28→21:00)
[2024-05-22] MEDS: MULTIVIT-MIN/IRON FUM/FOLIC AC 1 EACH TABLET GT (09:28)
[2024-05-22] MEDS: SENNOSIDES 8.6 MG TABLET 17.2 MG GT (21:00)
[2024-05-22] MEDS: LOSARTAN 100 MG TABLET GT (21:00)
[2024-05-23] VITALS (7 sets, daily range): BP systolic 114–142; BP diastolic 77–93; PULSE 62–70; RESP 18–22; TEMP 36.1–36.3; O2SAT 96–97; BMI 27.3
[2024-05-23] MEDS: MULTIVIT-MIN/IRON FUM/FOLIC AC 1 EACH TABLET GT (08:00)
[2024-05-23] MEDS: ESOMEPRAZOLE 40 MG GT (08:00)
[2024-05-23] MEDS: SODIUM CHLORIDE TAB 1,000 MG TABLET.SOL 1000 MG GT ×2 (08:00→20:12)
[2024-05-23] MEDS: SOD PHOS DI, MONO/K PHOS MONO 250 MG TABLET GT (08:00)
[2024-05-23] MEDS: CARBAMIDE PEROXIDE OTIC SOL 15 ML BTL 5 DROP BOTH EARS (08:00)
--- NOTE | 2024-05-23 14:58 | PC.SS ---
Room visit: Resident is laying in bed with head of the bed elevated with call light properly placed with no signs of distress. Resident remains on blow by with trach in place and GT for medication and nutrition. Resident is unable to make needs known as he has absence of speech, her daughter Homa is her decision maker. Resident will remain in current care and will continue to have all subacute care needs met by staff. This SSD will continue to make daily contact with resident and offer support and he may need.
[2024-05-23] MEDS: SENNOSIDES 8.6 MG TABLET 17.2 MG GT (20:12)
[2024-05-23] MEDS: LOSARTAN 100 MG TABLET GT (20:12)
[2024-05-24] VITALS: BP 144/80; PULSE 58; RESP 18; TEMP 36.2
[2024-05-24 06:00] VITALS: BP 143/82; PULSE 69; RESP 20; TEMP 36.2; O2SAT 98
[2024-05-24 06:20] VITALS: PULSE 66; RESP 18; O2SAT 98
[2024-05-24] MEDS: SOD PHOS DI, MONO/K PHOS MONO 250 MG TABLET GT (08:06)
[2024-05-24] MEDS: MULTIVIT-MIN/IRON FUM/FOLIC AC 1 EACH TABLET GT (08:06)
[2024-05-24] MEDS: ESOMEPRAZOLE 40 MG GT (08:06)
[2024-05-24] MEDS: SODIUM CHLORIDE TAB 1,000 MG TABLET.SOL 1000 MG GT ×2 (08:06→20:15)
[2024-05-24 11:38] VITALS: BP 129/62; PULSE 66; RESP 17; TEMP 36.4
[2024-05-24] MEDS: CARBAMIDE PEROXIDE OTIC SOL 15 ML BTL 5 DROP BOTH EARS (20:12)
[2024-05-24 20:14] VITALS: BP 139/73; PULSE 70
[2024-05-24] MEDS: LOSARTAN 100 MG TABLET GT (20:14)
[2024-05-24] MEDS: SENNOSIDES 8.6 MG TABLET 17.2 MG GT (20:15)
[2024-05-25] VITALS (7 sets, daily range): BP systolic 112–123; BP diastolic 74–76; PULSE 56–86; RESP 16–18; TEMP 36.3–36.4; O2SAT 97–98
[2024-05-25] MEDS: MULTIVIT-MIN/IRON FUM/FOLIC AC 1 EACH TABLET GT (08:01)
[2024-05-25] MEDS: SOD PHOS DI, MONO/K PHOS MONO 250 MG TABLET GT (08:01)
[2024-05-25] MEDS: ESOMEPRAZOLE 40 MG GT (08:01)
[2024-05-25] MEDS: SODIUM CHLORIDE TAB 1,000 MG TABLET.SOL 1000 MG GT ×2 (08:01→20:26)
[2024-05-25] MEDS: SENNOSIDES 8.6 MG TABLET 17.2 MG GT (20:26)
[2024-05-25] MEDS: LOSARTAN 100 MG TABLET GT (20:26)
--- NOTE | 2024-05-25 21:50 | PD.SAPROG ---
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 (2) Epilepsy, unspecified, not intractable, without status epilepticus: Status: Chronic (3) Essential (primary) hypertension: Status: Chronic (4) Tracheostomy status: Status: Chronic (5) Gastrostomy status: Status: Chronic (6) Chronic respiratory failure, unspecified whether with hypoxia or hypercapnia: Status: Chronic (7) Chronic hyponatremia: Status: Chronic SUBJECTIVE Fever:: none GI:: none Shortness of Breath:: none GI:: no complaints Pain:: none OBJECTIVE Most recent vital signs: Last Vital Signs Temp 97.4 F 05/25/24 18:00 Pulse 83 05/25/24 20:26 Resp 18 05/25/24 18:00 BP 112/76 05/25/24 20:26 Pulse Ox 98 05/25/24 06:22 O2 Del Method Blow-by 05/24/24 06:00 O2 Flow Rate 6 05/25/24 06:22 FiO2 28 05/25/24 06:22 Neurological:: alert Speech:: nods head, mouths words (sometimes) and appropriate Answers questions:: sometimes Respiratory:: shallow breathing Cardiovascular: RRR Abdomen: soft and nontender Extremities:: deformities Decubitus:: none Tracheostomy:: to blow by Feeding per:: G tube Complaints:: none ASSESSMENT & PLAN Assessment: 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 No pain issues, and remains comfortable. Ice chips for some oral gratification tried with success without any cough or aspiration and continued.Remains fully dependent for care. interacts some and mostly happy. Tendency for Hypo-natremia on labs being monitored and addressed. No clinical change. Electrolytes improved. monitored regularly. Plan: All treatment reviewed and continued.
[2024-05-26] VITALS (7 sets, daily range): BP systolic 103–173; BP diastolic 71–94; PULSE 63–115; RESP 16–28; TEMP 36.3–36.5; O2SAT 95–96
[2024-05-26] MEDS: SOD PHOS DI, MONO/K PHOS MONO 250 MG TABLET GT (07:50)
[2024-05-26] MEDS: ACETAMINOPHEN 325 MG TABLET 650 MG GT (07:50)
[2024-05-26] MEDS: ESOMEPRAZOLE 40 MG GT (07:50)
[2024-05-26] MEDS: SODIUM CHLORIDE TAB 1,000 MG TABLET.SOL 1000 MG GT ×2 (07:51→20:29)
[2024-05-26] MEDS: MULTIVIT-MIN/IRON FUM/FOLIC AC 1 EACH TABLET GT (07:51)
[2024-05-26 08:04] LABS: Albumin, Serum 4.6 gm/dL (3.4-4.8); Anion Gap 6 (7-16); BUN/Creatinine Ratio 28 Ratio (12-20); Blood Urea Nitrogen 14 mg/dL (9-23); Calcium 10.2 mg/dL (8.3-10.6); Calcium (Corrected) 10.2 mg/dL (8.5-10.1); Carbon Dioxide 27.6 mMol/L (20.0-31.0); Chloride 95 mMol/L (98-107); Creatinine (Component) 0.5 mg/dL (0.6-1.3); Estimated Creatinine Clearance 80.6 mL/min (>60); Glucose 126 mg/dL (74-106); Osmolality,Calculated 261 (275-295); Phosphorous 3.8 mg/dL (2.4-5.1); Potassium 4.0 mMol/L (3.4-5.1); Sodium 129 mMol/L (136-145); eGFR > 60 See Note
--- NOTE | 2024-05-26 11:03 | PC.NURSE ---
Resident's sodium level 129, currently on Nacl 1 gm BID and NS 700 ml max q shift gtube flush. No swelling noted, alert and responsive. Notified Dr Gonsalez with order received to repeat Renal panel in 2 weeks.
[2024-05-26] MEDS: LOSARTAN 100 MG TABLET GT (20:28)
[2024-05-26] MEDS: MAGNESIUM HYDROXIDE 30 ML ORAL SUSP ML GT (20:29)
[2024-05-26] MEDS: SENNOSIDES 8.6 MG TABLET 17.2 MG GT (20:29)
[2024-05-27] VITALS (8 sets, daily range): BP systolic 104–148; BP diastolic 66–88; PULSE 61–109; RESP 19–24; TEMP 36.3–37.7; O2SAT 95–98
[2024-05-27] MEDS: ACETAMINOPHEN 325 MG TABLET 650 MG GT (00:34)
[2024-05-27] MEDS: MULTIVIT-MIN/IRON FUM/FOLIC AC 1 EACH TABLET GT (08:52)
[2024-05-27] MEDS: SODIUM CHLORIDE TAB 1,000 MG TABLET.SOL 1000 MG GT ×2 (08:52→20:22)
[2024-05-27] MEDS: ESOMEPRAZOLE 40 MG GT (08:52)
[2024-05-27] MEDS: SOD PHOS DI, MONO/K PHOS MONO 250 MG TABLET GT (08:52)
[2024-05-27] MEDS: LOSARTAN 100 MG TABLET GT (20:21)
[2024-05-27] MEDS: SENNOSIDES 8.6 MG TABLET 17.2 MG GT (20:21)
[2024-05-28] VITALS (8 sets, daily range): BP systolic 98–139; BP diastolic 63–90; PULSE 60–76; RESP 18–22; TEMP 36.1–36.4; O2SAT 96–98
[2024-05-28] MEDS: SOD PHOS DI, MONO/K PHOS MONO 250 MG TABLET GT (08:04)
[2024-05-28] MEDS: MULTIVIT-MIN/IRON FUM/FOLIC AC 1 EACH TABLET GT (08:04)
[2024-05-28] MEDS: SODIUM CHLORIDE TAB 1,000 MG TABLET.SOL 1000 MG GT ×2 (08:04→21:07)
[2024-05-28] MEDS: ESOMEPRAZOLE 40 MG GT (08:04)
--- NOTE | 2024-05-28 12:11 | PC.SS ---
Room visit: Resident remains on blow by with trach in place and GT for medication and nutrition. Resident has absence of speech unable to make needs known, at times she will nod her head yes/no to simple questions. Resident decision maker is her daughter Homa Griffiths. Resident will remain in current care and will continue to have all subacute care needs met by staff. This SSD will continue to make daily contact with resident and will offer support as he will accept.
[2024-05-28] MEDS: LOSARTAN 100 MG TABLET GT (21:07)
[2024-05-28] MEDS: SENNOSIDES 8.6 MG TABLET 17.2 MG GT (21:07)
[2024-05-29 05:08] VITALS: BP 116/75; PULSE 66; RESP 18; TEMP 36.4
[2024-05-29 07:40] VITALS: PULSE 59; RESP 18; O2SAT 98
[2024-05-29] MEDS: SOD PHOS DI, MONO/K PHOS MONO 250 MG TABLET GT (07:58)
[2024-05-29] MEDS: ESOMEPRAZOLE 40 MG GT (07:58)
[2024-05-29] MEDS: MULTIVIT-MIN/IRON FUM/FOLIC AC 1 EACH TABLET GT (07:58)
[2024-05-29] MEDS: SODIUM CHLORIDE TAB 1,000 MG TABLET.SOL 1000 MG GT ×2 (07:58→21:01)
[2024-05-29] MEDS: MAGNESIUM HYDROXIDE 30 ML ORAL SUSP ML GT (07:59)
[2024-05-29 11:25] VITALS: BP 142/85; PULSE 71; RESP 20; TEMP 36.1
[2024-05-29 17:35] VITALS: BP 139/84; BP 173/94; PULSE 91; RESP 24; TEMP 36.7; O2SAT 98
[2024-05-29 18:05] VITALS: PULSE 64; RESP 18; O2SAT 97
[2024-05-29 21:00] VITALS: BP 149/61; PULSE 107
[2024-05-29] MEDS: LOSARTAN 100 MG TABLET GT (21:00)
[2024-05-29] MEDS: SENNOSIDES 8.6 MG TABLET 17.2 MG GT (21:01)
[2024-05-29] MEDS: ACETAMINOPHEN 325 MG TABLET 650 MG GT (21:02)
--- NOTE | 2024-05-29 21:35 | ESPR_ITS ---
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 (2) Epilepsy, unspecified, not intractable, without status epilepticus: Status: Chronic (3) Essential (primary) hypertension: Status: Chronic (4) Tracheostomy status: Status: Chronic (5) Gastrostomy status: Status: Chronic (6) Chronic respiratory failure, unspecified whether with hypoxia or hypercapnia: Status: Chronic (7) Chronic hyponatremia: Status: Chronic SUBJECTIVE Fever:: none GI:: none Shortness of Breath:: none GI:: no complaints Pain:: none OBJECTIVE Most recent vital signs: Last Vital Signs Temp 98.1 F 05/29/24 17:35 Pulse 107 H 05/29/24 21:00 Resp 24 H 05/29/24 17:35 BP 149/61 H 05/29/24 21:00 Pulse Ox 98 05/29/24 17:35 O2 Del Method Blow-by 05/29/24 17:35 O2 Flow Rate 6 05/29/24 17:35 FiO2 28 05/29/24 17:35 Neurological:: alert Speech:: nods head, mouths words (sometimes) and appropriate Answers questions:: sometimes Respiratory:: shallow breathing Cardiovascular: RRR Abdomen: soft and nontender Extremities:: deformities Decubitus:: none Tracheostomy:: to blow by Feeding per:: G tube Complaints:: none ASSESSMENT & PLAN Assessment: 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 No pain issues, and remains comfortable. Ice chips for some oral gratification tried with success without any cough or aspiration and continued.Remains fully dependent for care. interacts some and mostly happy. Tendency for Hypo-natremia on labs being monitored and addressed. No clinical change. Electrolytes improved. monitored regularly. Pt fully dependent for care. Plan: All treatment reviewed and continued.
[2024-05-30] VITALS (8 sets, daily range): BP systolic 96–147; BP diastolic 65–81; PULSE 62–96; RESP 18–22; TEMP 36.2–36.6; O2SAT 94–98
[2024-05-30] MEDS: ESOMEPRAZOLE 40 MG GT (08:27)
[2024-05-30] MEDS: SOD PHOS DI, MONO/K PHOS MONO 250 MG TABLET GT (08:28)
[2024-05-30] MEDS: SODIUM CHLORIDE TAB 1,000 MG TABLET.SOL 1000 MG GT ×2 (08:28→20:09)
[2024-05-30] MEDS: MULTIVIT-MIN/IRON FUM/FOLIC AC 1 EACH TABLET GT (08:28)
[2024-05-30] MEDS: SENNOSIDES 8.6 MG TABLET 17.2 MG GT (20:08)
[2024-05-31] VITALS (8 sets, daily range): BP systolic 123–157; BP diastolic 64–90; PULSE 66–88; RESP 18–24; TEMP 36.1–36.7; O2SAT 97–98
[2024-05-31] MEDS: SODIUM CHLORIDE TAB 1,000 MG TABLET.SOL 1000 MG GT ×2 (07:59→20:10)
[2024-05-31] MEDS: SOD PHOS DI, MONO/K PHOS MONO 250 MG TABLET GT (07:59)
[2024-05-31] MEDS: MULTIVIT-MIN/IRON FUM/FOLIC AC 1 EACH TABLET GT (07:59)
[2024-05-31] MEDS: ESOMEPRAZOLE 40 MG GT (07:59)
[2024-05-31] MEDS: ACETAMINOPHEN 325 MG TABLET 650 MG GT (17:45)
--- NOTE | 2024-05-31 19:30 | ESPR_ITS ---
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 (2) Epilepsy, unspecified, not intractable, without status epilepticus: Status: Chronic (3) Essential (primary) hypertension: Status: Chronic (4) Tracheostomy status: Status: Chronic (5) Gastrostomy status: Status: Chronic (6) Chronic respiratory failure, unspecified whether with hypoxia or hypercapnia: Status: Chronic (7) Chronic hyponatremia: Status: Chronic SUBJECTIVE Fever:: none GI:: none Shortness of Breath:: none GI:: no complaints Pain:: none OBJECTIVE Most recent vital signs: Last Vital Signs Temp 97.4 F 05/31/24 17:20 Pulse 83 05/31/24 17:20 Resp 18 05/31/24 17:20 BP 141/76 H 05/31/24 17:20 Pulse Ox 97 05/31/24 12:00 O2 Del Method Blow-by 05/31/24 06:00 O2 Flow Rate 6 05/31/24 06:05 FiO2 28 05/31/24 06:05 Neurological:: alert Speech:: nods head, mouths words (sometimes) and appropriate Answers questions:: sometimes Respiratory:: shallow breathing Cardiovascular: RRR Abdomen: soft and nontender Extremities:: deformities Decubitus:: none Tracheostomy:: to blow by Feeding per:: G tube Complaints:: none ASSESSMENT & PLAN Assessment: 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 No pain issues, and remains comfortable. Ice chips for some oral gratification tried with success without any cough or aspiration and continued.Remains fully dependent for care. interacts some and mostly happy. Tendency for Hypo-natremia on labs being monitored and addressed. No clinical change. Electrolytes improved. monitored regularly. Pt remains fully dependent for care. Plan: All treatment reviewed and continued.
[2024-05-31] MEDS: LOSARTAN 100 MG TABLET GT (20:07)
[2024-05-31] MEDS: SENNOSIDES 8.6 MG TABLET 17.2 MG GT (20:08)
[2024-06-01 04:21] VITALS: BP 169/100; PULSE 84; RESP 20; TEMP 36.4; O2SAT 98
[2024-06-01] MEDS: ACETAMINOPHEN 325 MG TABLET 650 MG GT ×2 (04:27→17:07)
[2024-06-01 06:17] VITALS: PULSE 86; RESP 18; O2SAT 96
[2024-06-01] MEDS: SODIUM CHLORIDE TAB 1,000 MG TABLET.SOL 1000 MG GT ×2 (08:05→20:35)
[2024-06-01] MEDS: ESOMEPRAZOLE 40 MG GT (08:05)
[2024-06-01] MEDS: MULTIVIT-MIN/IRON FUM/FOLIC AC 1 EACH TABLET GT (08:05)
[2024-06-01] MEDS: SOD PHOS DI, MONO/K PHOS MONO 250 MG TABLET GT (08:05)
[2024-06-01 11:38] VITALS: BP 164/95; PULSE 94; RESP 22; TEMP 36.7
[2024-06-01 17:07] VITALS: BP 146/88; PULSE 101; RESP 24; TEMP 37.1; O2SAT 95
[2024-06-01 20:10] VITALS: PULSE 79; RESP 18; O2SAT 98
[2024-06-01 20:35] VITALS: BP 121/79; PULSE 107
[2024-06-01] MEDS: SENNOSIDES 8.6 MG TABLET 17.2 MG GT (20:35)
[2024-06-01] MEDS: LOSARTAN 100 MG TABLET GT (20:35)
[2024-06-02] VITALS: BP 94/65; PULSE 87; RESP 18; TEMP 36.8
[2024-06-02] MEDS: ACETAMINOPHEN 325 MG TABLET 650 MG GT (02:22)
[2024-06-02 05:26] VITALS: BP 117/78; PULSE 76; RESP 18; TEMP 36.4; O2SAT 97
[2024-06-02 07:50] VITALS: PULSE 69; PULSE 82; RESP 18; O2SAT 98
[2024-06-02] MEDS: MULTIVIT-MIN/IRON FUM/FOLIC AC 1 EACH TABLET GT (08:31)
[2024-06-02] MEDS: SODIUM CHLORIDE TAB 1,000 MG TABLET.SOL 1000 MG GT ×2 (08:31→20:32)
[2024-06-02] MEDS: SOD PHOS DI, MONO/K PHOS MONO 250 MG TABLET GT (08:31)
[2024-06-02] MEDS: ESOMEPRAZOLE 40 MG GT (08:31)
[2024-06-02 12:00] VITALS: BP 146/82; PULSE 77; RESP 18; TEMP 36.4
[2024-06-02 18:00] VITALS: BP 163/80; PULSE 73; RESP 20; TEMP 36.3; O2SAT 96
[2024-06-02 20:31] VITALS: BP 140/86; PULSE 74
[2024-06-02] MEDS: SENNOSIDES 8.6 MG TABLET 17.2 MG GT (20:31)
[2024-06-02] MEDS: LOSARTAN 100 MG TABLET GT (20:31)
[2024-06-03] VITALS (7 sets, daily range): BP systolic 116–138; BP diastolic 76–87; PULSE 72–91; RESP 16–22; TEMP 36.2–36.6; O2SAT 98–100
[2024-06-03] MEDS: MULTIVIT-MIN/IRON FUM/FOLIC AC 1 EACH TABLET GT (09:15)
[2024-06-03] MEDS: ESOMEPRAZOLE 40 MG GT (09:15)
[2024-06-03] MEDS: SOD PHOS DI, MONO/K PHOS MONO 250 MG TABLET GT (09:15)
[2024-06-03] MEDS: SODIUM CHLORIDE TAB 1,000 MG TABLET.SOL 1000 MG GT ×2 (09:16→21:23)
[2024-06-03] MEDS: SENNOSIDES 8.6 MG TABLET 17.2 MG GT (21:22)
[2024-06-03] MEDS: LOSARTAN 100 MG TABLET GT (21:22)
[2024-06-04] VITALS (8 sets, daily range): BP systolic 110–148; BP diastolic 74–90; PULSE 65–87; RESP 17–22; TEMP 36.3–37.2; O2SAT 95–98
[2024-06-04] MEDS: MULTIVIT-MIN/IRON FUM/FOLIC AC 1 EACH TABLET GT (09:23)
[2024-06-04] MEDS: SOD PHOS DI, MONO/K PHOS MONO 250 MG TABLET GT (09:23)
[2024-06-04] MEDS: SODIUM CHLORIDE TAB 1,000 MG TABLET.SOL 1000 MG GT ×2 (09:23→21:02)
--- NOTE | 2024-06-04 13:30 | PD.SAPROG ---
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 (2) Epilepsy, unspecified, not intractable, without status epilepticus: Status: Chronic (3) Essential (primary) hypertension: Status: Chronic (4) Tracheostomy status: Status: Chronic (5) Gastrostomy status: Status: Chronic (6) Chronic respiratory failure, unspecified whether with hypoxia or hypercapnia: Status: Chronic (7) Chronic hyponatremia: Status: Chronic SUBJECTIVE Fever:: none GI:: none Shortness of Breath:: none GI:: no complaints Pain:: none OBJECTIVE Most recent vital signs: Last Vital Signs Temp 97.6 F 06/06/24 17:23 Pulse 81 06/06/24 21:17 Resp 20 06/06/24 17:23 BP 130/85 H 06/06/24 21:17 Pulse Ox 97 06/06/24 17:23 O2 Del Method Blow-by 06/06/24 17:23 O2 Flow Rate 6 06/06/24 06:00 FiO2 28 06/06/24 06:00 Neurological:: alert Speech:: nods head, mouths words (sometimes) and appropriate Answers questions:: sometimes Respiratory:: shallow breathing Cardiovascular: RRR Abdomen: soft and nontender Extremities:: deformities Decubitus:: none Tracheostomy:: to blow by Feeding per:: G tube Complaints:: none ASSESSMENT & PLAN Assessment: 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 No pain issues, and remains comfortable. Ice chips for some oral gratification tried with success without any cough or aspiration and continued.Remains fully dependent for care. interacts some and mostly happy. Tendency for Hypo-natremia on labs being monitored and addressed. No clinical change. Electrolytes improved. monitored regularly. Pt remains fully dependent for care. Plan: All treatment reviewed and continued.
[2024-06-04] MEDS: ESOMEPRAZOLE 40 MG GT (15:42)
[2024-06-04] MEDS: SENNOSIDES 8.6 MG TABLET 17.2 MG GT (21:02)
[2024-06-04] MEDS: LOSARTAN 100 MG TABLET GT (21:02)
[2024-06-05] VITALS (7 sets, daily range): BP systolic 126–164; BP diastolic 83–92; PULSE 62–82; RESP 18–20; TEMP 36.2–36.7; O2SAT 94–98
[2024-06-05] MEDS: MULTIVIT-MIN/IRON FUM/FOLIC AC 1 EACH TABLET GT (08:36)
[2024-06-05] MEDS: ESOMEPRAZOLE 40 MG GT (08:36)
[2024-06-05] MEDS: SOD PHOS DI, MONO/K PHOS MONO 250 MG TABLET GT (08:36)
[2024-06-05] MEDS: SODIUM CHLORIDE TAB 1,000 MG TABLET.SOL 1000 MG GT ×2 (08:37→20:59)
[2024-06-05] MEDS: LOSARTAN 100 MG TABLET GT (20:58)
[2024-06-05] MEDS: SENNOSIDES 8.6 MG TABLET 17.2 MG GT (20:59)
[2024-06-06] VITALS: BP 132/87; PULSE 71; RESP 20; TEMP 36
[2024-06-06 05:51] VITALS: BP 141/91; PULSE 72; RESP 20; TEMP 36.2; O2SAT 97
[2024-06-06] MEDS: SOD PHOS DI, MONO/K PHOS MONO 250 MG TABLET GT (08:55)
[2024-06-06] MEDS: MULTIVIT-MIN/IRON FUM/FOLIC AC 1 EACH TABLET GT (08:55)
[2024-06-06] MEDS: SODIUM CHLORIDE TAB 1,000 MG TABLET.SOL 1000 MG GT ×2 (08:55→21:19)
[2024-06-06] MEDS: ESOMEPRAZOLE 40 MG GT (08:55)
[2024-06-06 12:00] VITALS: BP 170/90; PULSE 88; RESP 19; TEMP 36.6
[2024-06-06 17:23] VITALS: BP 112/74; PULSE 82; RESP 20; TEMP 36.4; O2SAT 97
[2024-06-06 17:50] VITALS: PULSE 67; RESP 18; O2SAT 96
[2024-06-06 21:17] VITALS: BP 130/85; PULSE 81
[2024-06-06] MEDS: LOSARTAN 100 MG TABLET GT (21:17)
[2024-06-06] MEDS: SENNOSIDES 8.6 MG TABLET 17.2 MG GT (21:18)
[2024-06-07] VITALS (8 sets, daily range): BP systolic 102–144; BP diastolic 72–87; PULSE 59–87; RESP 16–28; TEMP 36.3–36.6; O2SAT 95–99
[2024-06-07] MEDS: ESOMEPRAZOLE 40 MG GT (09:06)
[2024-06-07] MEDS: MULTIVIT-MIN/IRON FUM/FOLIC AC 1 EACH TABLET GT (09:06)
[2024-06-07] MEDS: SODIUM CHLORIDE TAB 1,000 MG TABLET.SOL 1000 MG GT ×2 (09:06→20:43)
[2024-06-07] MEDS: SOD PHOS DI, MONO/K PHOS MONO 250 MG TABLET GT (09:06)
[2024-06-07] MEDS: LOSARTAN 100 MG TABLET GT (20:43)
[2024-06-07] MEDS: SENNOSIDES 8.6 MG TABLET 17.2 MG GT (20:43)
[2024-06-08 04:49] VITALS: BP 124/69; PULSE 84; RESP 18; TEMP 36.1; O2SAT 96
[2024-06-08 06:00] VITALS: PULSE 81; RESP 16; O2SAT 97
[2024-06-08] MEDS: SOD PHOS DI, MONO/K PHOS MONO 250 MG TABLET GT (09:02)
[2024-06-08] MEDS: ESOMEPRAZOLE 40 MG GT (09:02)
[2024-06-08] MEDS: SODIUM CHLORIDE TAB 1,000 MG TABLET.SOL 1000 MG GT ×2 (09:03→21:19)
[2024-06-08] MEDS: MULTIVIT-MIN/IRON FUM/FOLIC AC 1 EACH TABLET GT (09:03)
[2024-06-08 11:43] VITALS: BP 117/74; PULSE 66; RESP 17; TEMP 36.2
[2024-06-08 18:00] VITALS: BP 110/66; PULSE 66; RESP 18; TEMP 36.5; O2SAT 97
--- NOTE | 2024-06-08 18:12 | ESPR_ITS ---
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 (2) Epilepsy, unspecified, not intractable, without status epilepticus: Status: Chronic (3) Essential (primary) hypertension: Status: Chronic (4) Tracheostomy status: Status: Chronic (5) Gastrostomy status: Status: Chronic (6) Chronic respiratory failure, unspecified whether with hypoxia or hypercapnia: Status: Chronic (7) Chronic hyponatremia: Status: Chronic SUBJECTIVE Fever:: none GI:: none Shortness of Breath:: none GI:: no complaints Pain:: none OBJECTIVE Most recent vital signs: Last Vital Signs Temp 97.7 F 06/08/24 17:32 Pulse 66 06/08/24 17:32 Resp 18 06/08/24 17:32 BP 110/66 06/08/24 17:32 Pulse Ox 97 06/08/24 17:32 O2 Del Method Blow-by 06/08/24 17:32 O2 Flow Rate 6 06/08/24 06:00 FiO2 28 06/08/24 06:00 Neurological:: alert Speech:: nods head, mouths words (sometimes) and appropriate Answers questions:: sometimes Respiratory:: shallow breathing Cardiovascular: RRR Abdomen: soft and nontender Extremities:: deformities Decubitus:: none Tracheostomy:: to blow by Feeding per:: G tube Complaints:: none ASSESSMENT & PLAN Assessment: 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 No pain issues, and remains comfortable. Ice chips for some oral gratification tried with success without any cough or aspiration and continued.Remains fully dependent for care. interacts some and mostly happy. Tendency for Hypo-natremia on labs being monitored and addressed. No clinical change. Electrolytes improved. monitored regularly. Pt remains fully dependent for care. Plan: All treatment reviewed and continued.
[2024-06-08 21:19] VITALS: BP 110/66; PULSE 64
[2024-06-08] MEDS: LOSARTAN 100 MG TABLET GT (21:19)
[2024-06-08] MEDS: SENNOSIDES 8.6 MG TABLET 17.2 MG GT (21:19)
[2024-06-09] VITALS (8 sets, daily range): BP systolic 118–145; BP diastolic 76–91; PULSE 60–90; RESP 16–20; TEMP 36.4–36.8; O2SAT 94–98
[2024-06-09 07:45] LABS: Albumin, Serum 4.4 gm/dL (3.4-4.8); Anion Gap 6 (7-16); BUN/Creatinine Ratio 35 Ratio (12-20); Blood Urea Nitrogen 14 mg/dL (9-23); Calcium 9.5 mg/dL (8.3-10.6); Calcium (Corrected) 9.5 mg/dL (8.5-10.1); Carbon Dioxide 27.8 mMol/L (20.0-31.0); Chloride 90 mMol/L (98-107); Creatinine (Component) 0.4 mg/dL (0.6-1.3); Estimated Creatinine Clearance 100.7 mL/min (>60); Glucose 119 mg/dL (74-106); Osmolality,Calculated 251 (275-295); Phosphorous 3.5 mg/dL (2.4-5.1); Potassium 4.1 mMol/L (3.4-5.1); Sodium 124 mMol/L (136-145); eGFR > 60 See Note
[2024-06-09] MEDS: ESOMEPRAZOLE 40 MG GT (08:46)
[2024-06-09] MEDS: SOD PHOS DI, MONO/K PHOS MONO 250 MG TABLET GT (08:46)
[2024-06-09] MEDS: MULTIVIT-MIN/IRON FUM/FOLIC AC 1 EACH TABLET GT (08:46)
[2024-06-09] MEDS: SODIUM CHLORIDE TAB 1,000 MG TABLET.SOL 1000 MG GT ×2 (08:46→21:02)
--- NOTE | 2024-06-09 17:37 | PC.NURSE ---
Called MD regarding recent lab report regarding sodium level 124 New orders for increasing NS and re-do labs in x2days. Resident remains stable.Will continue to monitor.
[2024-06-09] MEDS: LOSARTAN 100 MG TABLET GT (21:01)
[2024-06-09] MEDS: SENNOSIDES 8.6 MG TABLET 17.2 MG GT (21:02)
[2024-06-10] VITALS: BP 115/79; PULSE 80; RESP 24; TEMP 36.6
[2024-06-10 06:00] VITALS: BP 121/88; PULSE 65; PULSE 77; RESP 16; RESP 22; TEMP 36.5; O2SAT 98; O2SAT 99
[2024-06-10] MEDS: ESOMEPRAZOLE 40 MG GT (09:26)
[2024-06-10] MEDS: MULTIVIT-MIN/IRON FUM/FOLIC AC 1 EACH TABLET GT (09:27)
[2024-06-10] MEDS: SOD PHOS DI, MONO/K PHOS MONO 250 MG TABLET GT (09:27)
[2024-06-10] MEDS: SODIUM CHLORIDE TAB 1,000 MG TABLET.SOL 1000 MG GT ×2 (09:27→21:30)
[2024-06-10 09:42] VITALS: BMI 27.3
[2024-06-10 12:00] VITALS: BP 148/74; PULSE 65; RESP 20; TEMP 36.8
[2024-06-10 17:17] VITALS: BP 146/88; PULSE 76; RESP 20; TEMP 36.7; O2SAT 97
[2024-06-10 18:01] VITALS: PULSE 60; RESP 16; O2SAT 97
[2024-06-10 20:49] VITALS: BP 136/80; PULSE 76
[2024-06-10] MEDS: LOSARTAN 100 MG TABLET GT (20:49)
[2024-06-10] MEDS: SENNOSIDES 8.6 MG TABLET 17.2 MG GT (20:50)
[2024-06-11] VITALS (8 sets, daily range): BP systolic 126–146; BP diastolic 78–89; PULSE 59–91; RESP 18–24; TEMP 36.2–36.7; O2SAT 90–97
[2024-06-11 06:51] LABS: Anion Gap 4 (7-16); BUN/Creatinine Ratio 28 Ratio (12-20); Blood Urea Nitrogen 14 mg/dL (9-23); Calcium 9.9 mg/dL (8.3-10.6); Carbon Dioxide 28.5 mMol/L (20.0-31.0); Chloride 94 mMol/L (98-107); Creatinine (Component) 0.5 mg/dL (0.6-1.3); Estimated Creatinine Clearance 80.7 mL/min (>60); Glucose 116 mg/dL (74-106); Osmolality,Calculated 254 (275-295); Potassium 4.4 mMol/L (3.4-5.1); Sodium 126 mMol/L (136-145); eGFR > 60 See Note
[2024-06-11] MEDS: MULTIVIT-MIN/IRON FUM/FOLIC AC 1 EACH TABLET GT (09:45)
[2024-06-11] MEDS: ESOMEPRAZOLE 40 MG GT (09:45)
[2024-06-11] MEDS: SOD PHOS DI, MONO/K PHOS MONO 250 MG TABLET GT (09:45)
[2024-06-11] MEDS: SODIUM CHLORIDE TAB 1,000 MG TABLET.SOL 1000 MG GT ×2 (09:45→20:29)
--- NOTE | 2024-06-11 16:47 | PC.NURSE ---
Resident sodium was 126 MD made aware and order to repeat renal panel on 06/14, order noted and carried we will continue to monitor.
[2024-06-11] MEDS: LOSARTAN 100 MG TABLET GT (20:28)
[2024-06-11] MEDS: SENNOSIDES 8.6 MG TABLET 17.2 MG GT (20:29)
[2024-06-12] VITALS (9 sets, daily range): BP systolic 101–150; BP diastolic 52–86; PULSE 71–99; RESP 15–28; TEMP 36–36.8; O2SAT 90–97
[2024-06-12] MEDS: SOD PHOS DI, MONO/K PHOS MONO 250 MG TABLET GT (09:26)
[2024-06-12] MEDS: ESOMEPRAZOLE 40 MG GT (09:26)
[2024-06-12] MEDS: MULTIVIT-MIN/IRON FUM/FOLIC AC 1 EACH TABLET GT (09:27)
[2024-06-12] MEDS: SODIUM CHLORIDE TAB 1,000 MG TABLET.SOL 1000 MG GT ×2 (09:27→21:50)
--- NOTE | 2024-06-12 19:53 | PD.SAPROG ---
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 (2) Epilepsy, unspecified, not intractable, without status epilepticus: Status: Chronic (3) Essential (primary) hypertension: Status: Chronic (4) Tracheostomy status: Status: Chronic (5) Gastrostomy status: Status: Chronic (6) Chronic respiratory failure, unspecified whether with hypoxia or hypercapnia: Status: Chronic (7) Chronic hyponatremia: Status: Chronic SUBJECTIVE Fever:: none GI:: none Shortness of Breath:: none GI:: no complaints Pain:: none OBJECTIVE Most recent vital signs: Last Vital Signs Temp 97.7 F 06/12/24 18:00 Pulse 78 06/12/24 18:00 Resp 19 06/12/24 18:00 BP 123/70 06/12/24 18:00 Pulse Ox 97 06/12/24 18:00 O2 Del Method Blow-by 06/12/24 06:00 O2 Flow Rate 8 06/12/24 08:30 FiO2 30 06/12/24 08:30 Neurological:: alert Speech:: nods head, mouths words (sometimes) and appropriate Answers questions:: sometimes Respiratory:: shallow breathing Cardiovascular: RRR Abdomen: soft and nontender Extremities:: deformities Decubitus:: none Tracheostomy:: to blow by Feeding per:: G tube Complaints:: none ASSESSMENT & PLAN Assessment: 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 No pain issues, and remains comfortable. Ice chips for some oral gratification tried with success without any cough or aspiration and continued.Remains fully dependent for care. interacts some and mostly happy. Tendency for Hypo-natremia on labs being monitored and addressed. No clinical change. Electrolytes improved. monitored regularly. Pt remains fully dependent for care. No discomfort / pain Plan: All treatment reviewed and continued.
[2024-06-12] MEDS: SENNOSIDES 8.6 MG TABLET 17.2 MG GT (21:49)
[2024-06-12] MEDS: LOSARTAN 100 MG TABLET GT (21:49)
[2024-06-13 05:16] VITALS: BP 116/79; PULSE 68; RESP 16; TEMP 36.1; O2SAT 98
[2024-06-13 06:05] VITALS: PULSE 77; RESP 20; O2SAT 97
[2024-06-13] MEDS: ESOMEPRAZOLE 40 MG GT (09:36)
[2024-06-13] MEDS: MULTIVIT-MIN/IRON FUM/FOLIC AC 1 EACH TABLET GT (09:36)
[2024-06-13] MEDS: SODIUM CHLORIDE TAB 1,000 MG TABLET.SOL 1000 MG GT ×2 (09:36→21:07)
[2024-06-13] MEDS: SOD PHOS DI, MONO/K PHOS MONO 250 MG TABLET GT (09:36)
[2024-06-13 11:25] VITALS: BP 113/69; PULSE 64; RESP 20; TEMP 36.3
[2024-06-13 16:38] VITALS: BP 114/70; PULSE 82; RESP 17; TEMP 36.3; O2SAT 97
[2024-06-13 19:05] VITALS: PULSE 74; RESP 18; O2SAT 96
[2024-06-13 21:07] VITALS: BP 108/70; PULSE 96
[2024-06-13] MEDS: SENNOSIDES 8.6 MG TABLET 17.2 MG GT (21:07)
[2024-06-13] MEDS: ACETAMINOPHEN 325 MG TABLET 650 MG GT (23:00)
[2024-06-14] VITALS (7 sets, daily range): BP systolic 116–127; BP diastolic 74–85; PULSE 68–99; RESP 18–22; TEMP 36.6–37.1; O2SAT 95–97
[2024-06-14] MEDS: SOD PHOS DI, MONO/K PHOS MONO 250 MG TABLET GT (09:10)
[2024-06-14] MEDS: SODIUM CHLORIDE TAB 1,000 MG TABLET.SOL 1000 MG GT ×2 (09:10→21:00)
[2024-06-14] MEDS: ESOMEPRAZOLE 40 MG GT (09:10)
[2024-06-14] MEDS: ACETAMINOPHEN 325 MG TABLET 650 MG GT (09:10)
[2024-06-14] MEDS: MULTIVIT-MIN/IRON FUM/FOLIC AC 1 EACH TABLET GT (09:10)
[2024-06-14 10:49] LABS: Anion Gap 5 (7-16); Calcium 9.7 mg/dL (8.3-10.6); Carbon Dioxide 24.8 mMol/L (20.0-31.0); Chloride 96 mMol/L (98-107); Potassium 4.7 mMol/L (3.4-5.1); Sodium 126 mMol/L (136-145)
[2024-06-14 10:53] LABS: Albumin, Serum 4.5 gm/dL (3.4-4.8); BUN/Creatinine Ratio 40 Ratio (12-20); Blood Urea Nitrogen 16 mg/dL (9-23); Calcium (Corrected) 9.7 mg/dL (8.5-10.1); Creatinine (Component) 0.4 mg/dL (0.6-1.3); Estimated Creatinine Clearance 100.9 mL/min (>60); Glucose 116 mg/dL (74-106); Osmolality,Calculated 255 (275-295); Phosphorous 3.6 mg/dL (2.4-5.1); eGFR > 60 See Note
--- NOTE | 2024-06-14 13:23 | PC.NURSE ---
Called MD to review lab report for Sodium (126). New order to repeat labs (RP) on 06/17/24. MD stated if numbers are still low will start resident on a new medication. Please review with MD. Resident remains alert and oriented, no change in condition vital signs remain stable. remains on sodium flushes 800ml QS.
[2024-06-14] MEDS: LOSARTAN 100 MG TABLET GT (20:41)
[2024-06-14] MEDS: SENNOSIDES 8.6 MG TABLET 17.2 MG GT (20:41)
[2024-06-15] VITALS (8 sets, daily range): BP systolic 112–159; BP diastolic 76–91; PULSE 61–98; RESP 18–97; TEMP 36.1–36.7; O2SAT 97–98
[2024-06-15] MEDS: ACETAMINOPHEN 325 MG TABLET 650 MG GT (04:00)
[2024-06-15] MEDS: MULTIVIT-MIN/IRON FUM/FOLIC AC 1 EACH TABLET GT (08:48)
[2024-06-15] MEDS: SODIUM CHLORIDE TAB 1,000 MG TABLET.SOL 1000 MG GT ×2 (08:48→21:03)
[2024-06-15] MEDS: SOD PHOS DI, MONO/K PHOS MONO 250 MG TABLET GT (08:48)
[2024-06-15] MEDS: ESOMEPRAZOLE 40 MG GT (08:48)
[2024-06-15] MEDS: SENNOSIDES 8.6 MG TABLET 17.2 MG GT (21:02)
[2024-06-15] MEDS: LOSARTAN 100 MG TABLET GT (21:02)
[2024-06-16 05:46] VITALS: BP 141/79; PULSE 85; RESP 19; TEMP 36.6; O2SAT 98
[2024-06-16 06:45] VITALS: PULSE 64; RESP 18; O2SAT 98
[2024-06-16] MEDS: SODIUM CHLORIDE TAB 1,000 MG TABLET.SOL 1000 MG GT ×2 (09:04→21:38)
[2024-06-16] MEDS: SOD PHOS DI, MONO/K PHOS MONO 250 MG TABLET GT (09:04)
[2024-06-16] MEDS: MULTIVIT-MIN/IRON FUM/FOLIC AC 1 EACH TABLET GT (09:04)
[2024-06-16] MEDS: ESOMEPRAZOLE 40 MG GT (09:04)
[2024-06-16 12:00] VITALS: BP 147/88; PULSE 98; RESP 19; TEMP 36.4
[2024-06-16 17:09] VITALS: BP 145/81; PULSE 80; RESP 18; TEMP 36.1; O2SAT 98
[2024-06-16 19:05] VITALS: PULSE 62; RESP 18; O2SAT 97
--- NOTE | 2024-06-16 21:19 | ESPR_ITS ---
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 (2) Epilepsy, unspecified, not intractable, without status epilepticus: Status: Chronic (3) Essential (primary) hypertension: Status: Chronic (4) Tracheostomy status: Status: Chronic (5) Gastrostomy status: Status: Chronic (6) Chronic respiratory failure, unspecified whether with hypoxia or hypercapnia: Status: Chronic (7) Chronic hyponatremia: Status: Chronic SUBJECTIVE Fever:: none GI:: none Shortness of Breath:: none GI:: no complaints Pain:: none OBJECTIVE Most recent vital signs: Last Vital Signs Temp 97.0 F 06/16/24 17:09 Pulse 80 06/16/24 17:09 Resp 18 06/16/24 17:09 BP 145/81 H 06/16/24 17:09 Pulse Ox 98 06/16/24 17:09 O2 Del Method Blow-by 06/16/24 05:46 O2 Flow Rate 8 06/16/24 06:45 FiO2 30 06/16/24 06:45 Neurological:: alert Speech:: nods head, mouths words (sometimes) and appropriate Answers questions:: sometimes Respiratory:: shallow breathing Cardiovascular: RRR Abdomen: soft and nontender Extremities:: deformities Decubitus:: none Tracheostomy:: to blow by Feeding per:: G tube Complaints:: none ASSESSMENT & PLAN Assessment: 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 No pain issues, and remains comfortable. Ice chips for some oral gratification tried with success without any cough or aspiration and continued.Remains fully dependent for care. interacts some and mostly happy. Tendency for Hypo-natremia on labs being monitored and addressed. No clinical change. Electrolytes improved. monitored regularly. Pt remains fully dependent for care. No discomfort / pain Plan: All treatment reviewed and continued.
[2024-06-16 21:37] VITALS: BP 153/92; PULSE 82
[2024-06-16] MEDS: SENNOSIDES 8.6 MG TABLET 17.2 MG GT (21:37)
[2024-06-16] MEDS: LOSARTAN 100 MG TABLET GT (21:37)
[2024-06-17] VITALS (8 sets, daily range): BP systolic 118–162; BP diastolic 82–98; PULSE 64–96; RESP 18–24; TEMP 36–36.8; O2SAT 97–98
[2024-06-17] MEDS: SODIUM CHLORIDE TAB 1,000 MG TABLET.SOL 1000 MG GT ×2 (09:03→20:28)
[2024-06-17] MEDS: ESOMEPRAZOLE 40 MG GT (09:03)
[2024-06-17] MEDS: SOD PHOS DI, MONO/K PHOS MONO 250 MG TABLET GT (09:03)
[2024-06-17] MEDS: MULTIVIT-MIN/IRON FUM/FOLIC AC 1 EACH TABLET GT (09:03)
[2024-06-17 11:18] LABS: Albumin, Serum 4.7 gm/dL (3.4-4.8); Anion Gap 7 (7-16); BUN/Creatinine Ratio 30 Ratio (12-20); Blood Urea Nitrogen 12 mg/dL (9-23); Calcium 9.5 mg/dL (8.3-10.6); Calcium (Corrected) 9.5 mg/dL (8.5-10.1); Carbon Dioxide 26.9 mMol/L (20.0-31.0); Chloride 95 mMol/L (98-107); Creatinine (Component) 0.4 mg/dL (0.6-1.3); Estimated Creatinine Clearance 100.9 mL/min (>60); Glucose 110 mg/dL (74-106); Osmolality,Calculated 259 (275-295); Phosphorous 3.9 mg/dL (2.4-5.1); Potassium 4.1 mMol/L (3.4-5.1); Sodium 129 mMol/L (136-145); eGFR > 60 See Note
[2024-06-17] MEDS: ACETAMINOPHEN 325 MG TABLET 650 MG GT (17:31)
[2024-06-17] MEDS: LOSARTAN 100 MG TABLET GT (20:27)
[2024-06-17] MEDS: SENNOSIDES 8.6 MG TABLET 17.2 MG GT (20:28)
[2024-06-18 05:56] VITALS: BP 136/90; PULSE 83; RESP 20; TEMP 36.5; O2SAT 98
[2024-06-18 06:10] VITALS: PULSE 63; RESP 18; O2SAT 98
[2024-06-18] MEDS: SOD PHOS DI, MONO/K PHOS MONO 250 MG TABLET GT (09:08)
[2024-06-18] MEDS: MULTIVIT-MIN/IRON FUM/FOLIC AC 1 EACH TABLET GT (09:08)
[2024-06-18] MEDS: ESOMEPRAZOLE 40 MG GT (09:08)
[2024-06-18] MEDS: SODIUM CHLORIDE TAB 1,000 MG TABLET.SOL 1000 MG GT ×2 (09:08→21:08)
[2024-06-18 12:00] VITALS: BP 131/79; PULSE 76; RESP 20; TEMP 36.6
[2024-06-18 18:00] VITALS: BP 128/88; PULSE 80; RESP 19; TEMP 36.6
[2024-06-18 19:50] VITALS: PULSE 67; RESP 18; O2SAT 97
[2024-06-18 21:07] VITALS: BP 147/74; PULSE 82
[2024-06-18] MEDS: LOSARTAN 100 MG TABLET GT (21:07)
[2024-06-18] MEDS: SENNOSIDES 8.6 MG TABLET 17.2 MG GT (21:08)
[2024-06-19] VITALS (8 sets, daily range): BP systolic 106–169; BP diastolic 68–90; PULSE 66–84; RESP 18–27; TEMP 36–36.4; O2SAT 96–98
[2024-06-19] MEDS: ESOMEPRAZOLE 40 MG GT (09:04)
[2024-06-19] MEDS: SOD PHOS DI, MONO/K PHOS MONO 250 MG TABLET GT (09:05)
[2024-06-19] MEDS: SODIUM CHLORIDE TAB 1,000 MG TABLET.SOL 1000 MG GT ×2 (09:05→20:43)
[2024-06-19] MEDS: MULTIVIT-MIN/IRON FUM/FOLIC AC 1 EACH TABLET GT (09:05)
[2024-06-19] MEDS: SENNOSIDES 8.6 MG TABLET 17.2 MG GT (20:43)
[2024-06-20] VITALS (7 sets, daily range): BP systolic 130–146; BP diastolic 78–89; PULSE 66–91; RESP 18–20; TEMP 36.1–36.6; O2SAT 96–98
[2024-06-20] MEDS: ESOMEPRAZOLE 40 MG GT (09:27)
[2024-06-20] MEDS: SOD PHOS DI, MONO/K PHOS MONO 250 MG TABLET GT (09:28)
[2024-06-20] MEDS: SODIUM CHLORIDE TAB 1,000 MG TABLET.SOL 1000 MG GT ×2 (09:28→21:06)
[2024-06-20] MEDS: MULTIVIT-MIN/IRON FUM/FOLIC AC 1 EACH TABLET GT (09:28)
--- NOTE | 2024-06-20 14:49 | PC.SS ---
Room visit: Resident daughter is her decision maker as she is unable to make needs known. Resident is laying in bed with head of the bed elevated with call light properly placed with no signs of distress. Resident remains on blow by with trach in place and GT for medication and nutrition. Resident has no changes in care or condition she will remain in current care as she is unable to return home due to heavy and complicated care regimen. All subacute care needs to be met in facility by staff.
[2024-06-20] MEDS: LOSARTAN 100 MG TABLET GT (21:05)
[2024-06-20] MEDS: SENNOSIDES 8.6 MG TABLET 17.2 MG GT (21:14)
--- NOTE | 2024-06-20 21:15 | PD.SAPROG ---
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 (2) Epilepsy, unspecified, not intractable, without status epilepticus: Status: Chronic (3) Essential (primary) hypertension: Status: Chronic (4) Tracheostomy status: Status: Chronic (5) Gastrostomy status: Status: Chronic (6) Chronic respiratory failure, unspecified whether with hypoxia or hypercapnia: Status: Chronic (7) Chronic hyponatremia: Status: Chronic SUBJECTIVE Fever:: none GI:: none Shortness of Breath:: none GI:: no complaints Pain:: none OBJECTIVE Most recent vital signs: Last Vital Signs Temp 97.6 F 06/20/24 12:00 Pulse 68 06/20/24 21:05 Resp 20 06/20/24 18:25 BP 130/78 06/20/24 21:05 Pulse Ox 96 06/20/24 18:25 O2 Del Method Blow-by 06/20/24 12:00 O2 Flow Rate 8 06/20/24 18:25 FiO2 30 06/20/24 18:25 Neurological:: alert Speech:: nods head, mouths words (sometimes) and appropriate Answers questions:: sometimes Respiratory:: shallow breathing Cardiovascular: RRR Abdomen: soft and nontender Extremities:: deformities Decubitus:: none Tracheostomy:: to blow by Feeding per:: G tube Complaints:: none ASSESSMENT & PLAN Assessment: 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 No pain issues, and remains comfortable. Ice chips for some oral gratification tried with success without any cough or aspiration and continued.Remains fully dependent for care. interacts some and mostly happy. Tendency for Hypo-natremia on labs being monitored and addressed. No clinical change. Electrolytes improved. monitored regularly. Pt remains fully dependent for care. No discomfort / pain Plan: All treatment reviewed and continued.
[2024-06-21 05:56] VITALS: BP 146/75; PULSE 68; RESP 18; TEMP 36.3; O2SAT 98
[2024-06-21 06:08] VITALS: PULSE 66; RESP 18; O2SAT 97
[2024-06-21] MEDS: SOD PHOS DI, MONO/K PHOS MONO 250 MG TABLET GT (09:18)
[2024-06-21] MEDS: ESOMEPRAZOLE 40 MG GT (09:18)
[2024-06-21] MEDS: MULTIVIT-MIN/IRON FUM/FOLIC AC 1 EACH TABLET GT (09:19)
[2024-06-21] MEDS: SODIUM CHLORIDE TAB 1,000 MG TABLET.SOL 1000 MG GT ×2 (09:19→20:57)
[2024-06-21 18:10] VITALS: PULSE 75; RESP 18; O2SAT 98
[2024-06-21 20:56] VITALS: BP 144/80; PULSE 76
[2024-06-21] MEDS: SENNOSIDES 8.6 MG TABLET 17.2 MG GT (20:56)
[2024-06-21] MEDS: LOSARTAN 100 MG TABLET GT (20:56)
[2024-06-21 23:52] VITALS: BP 129/83; PULSE 74; RESP 19; TEMP 36.2
[2024-06-22] VITALS (7 sets, daily range): BP systolic 125–144; BP diastolic 82–90; PULSE 71–100; RESP 18–22; TEMP 36.2–36.9; O2SAT 94–98
[2024-06-22] MEDS: ESOMEPRAZOLE 40 MG GT (08:32)
[2024-06-22] MEDS: SOD PHOS DI, MONO/K PHOS MONO 250 MG TABLET GT (08:32)
[2024-06-22] MEDS: MULTIVIT-MIN/IRON FUM/FOLIC AC 1 EACH TABLET GT (08:33)
[2024-06-22] MEDS: ACETAMINOPHEN 325 MG TABLET 650 MG GT ×2 (08:34→20:55)
[2024-06-22] MEDS: SODIUM CHLORIDE TAB 1,000 MG TABLET.SOL 1000 MG GT ×2 (08:34→20:55)
[2024-06-22] MEDS: SENNOSIDES 8.6 MG TABLET 17.2 MG GT (20:55)
[2024-06-22] MEDS: LOSARTAN 100 MG TABLET GT (20:55)
[2024-06-23 05:48] VITALS: BP 113/77; PULSE 77; RESP 18; TEMP 36.6; O2SAT 99
[2024-06-23 06:15] VITALS: PULSE 92; RESP 18; O2SAT 93
[2024-06-23] MEDS: SOD PHOS DI, MONO/K PHOS MONO 250 MG TABLET GT (08:39)
[2024-06-23] MEDS: ESOMEPRAZOLE 40 MG GT (08:39)
[2024-06-23] MEDS: MULTIVIT-MIN/IRON FUM/FOLIC AC 1 EACH TABLET GT (08:39)
[2024-06-23] MEDS: SODIUM CHLORIDE TAB 1,000 MG TABLET.SOL 1000 MG GT ×2 (08:39→20:33)
[2024-06-23] MEDS: ACETAMINOPHEN 325 MG TABLET 650 MG GT (08:57)
[2024-06-23 12:00] VITALS: BP 124/74; PULSE 88; RESP 19; TEMP 36.5
[2024-06-23 18:00] VITALS: BP 128/78; PULSE 78; RESP 18; TEMP 36.6
[2024-06-23 19:05] VITALS: PULSE 89; RESP 20; O2SAT 95; O2SAT 96
[2024-06-23 20:32] VITALS: BP 130/76; PULSE 80
[2024-06-23] MEDS: LOSARTAN 100 MG TABLET GT (20:32)
[2024-06-23] MEDS: SENNOSIDES 8.6 MG TABLET 17.2 MG GT (20:33)
[2024-06-24] VITALS (8 sets, daily range): BP systolic 113–138; BP diastolic 76–94; PULSE 65–92; RESP 17–24; TEMP 35.9–36.3; O2SAT 95–97
[2024-06-24] MEDS: MULTIVIT-MIN/IRON FUM/FOLIC AC 1 EACH TABLET GT (09:32)
[2024-06-24] MEDS: SOD PHOS DI, MONO/K PHOS MONO 250 MG TABLET GT (09:32)
[2024-06-24] MEDS: SODIUM CHLORIDE TAB 1,000 MG TABLET.SOL 1000 MG GT ×2 (09:32→20:19)
[2024-06-24] MEDS: ESOMEPRAZOLE 40 MG GT (09:32)
[2024-06-24 10:46] LABS: Albumin, Serum 4.7 gm/dL (3.4-4.8); Anion Gap 6 (7-16); BUN/Creatinine Ratio 40 Ratio (12-20); Blood Urea Nitrogen 16 mg/dL (9-23); Calcium 10.0 mg/dL (8.3-10.6); Calcium (Corrected) 10.0 mg/dL (8.5-10.1); Carbon Dioxide 29.1 mMol/L (20.0-31.0); Chloride 96 mMol/L (98-107); Creatinine (Component) 0.4 mg/dL (0.6-1.3); Estimated Creatinine Clearance 100.9 mL/min (>60); Glucose 100 mg/dL (74-106); Osmolality,Calculated 263 (275-295); Phosphorous 4.7 mg/dL (2.4-5.1); Potassium 4.2 mMol/L (3.4-5.1); Sodium 131 mMol/L (136-145); eGFR > 60 See Note
--- NOTE | 2024-06-24 11:17 | PD.SAPROG ---
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 (2) Epilepsy, unspecified, not intractable, without status epilepticus: Status: Chronic (3) Essential (primary) hypertension: Status: Chronic (4) Tracheostomy status: Status: Chronic (5) Gastrostomy status: Status: Chronic (6) Chronic respiratory failure, unspecified whether with hypoxia or hypercapnia: Status: Chronic (7) Chronic hyponatremia: Status: Chronic SUBJECTIVE Fever:: none GI:: none Shortness of Breath:: none GI:: no complaints Pain:: none OBJECTIVE Most recent vital signs: Last Vital Signs Temp 96.9 F 06/24/24 06:00 Pulse 67 06/24/24 07:20 Resp 18 06/24/24 07:20 BP 138/94 H 06/24/24 06:00 Pulse Ox 96 06/24/24 07:20 O2 Del Method Blow-by 06/24/24 06:00 O2 Flow Rate 8 06/24/24 07:20 FiO2 30 06/24/24 07:20 Neurological:: alert Speech:: nods head, mouths words (sometimes) and appropriate Answers questions:: sometimes Respiratory:: shallow breathing Cardiovascular: RRR Abdomen: soft and nontender Extremities:: deformities Decubitus:: none Tracheostomy:: to blow by Feeding per:: G tube Complaints:: none ASSESSMENT & PLAN Assessment: 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 No pain issues, and remains comfortable. Ice chips for some oral gratification tried with success without any cough or aspiration and continued.Remains fully dependent for care. interacts some and mostly happy. Tendency for Hypo-natremia on labs being monitored and addressed. No clinical change. Electrolytes improved. monitored regularly. Pt remains fully dependent for care. No discomfort / pain Plan: All treatment reviewed and continued.
[2024-06-24] MEDS: LOSARTAN 100 MG TABLET GT (20:18)
[2024-06-24] MEDS: SENNOSIDES 8.6 MG TABLET 17.2 MG GT (20:19)
[2024-06-25 05:45] VITALS: BP 139/84; PULSE 76; RESP 19; TEMP 36.1; O2SAT 99
[2024-06-25 06:04] VITALS: PULSE 74; RESP 18; O2SAT 96
[2024-06-25] MEDS: SOD PHOS DI, MONO/K PHOS MONO 250 MG TABLET GT (08:07)
[2024-06-25] MEDS: MULTIVIT-MIN/IRON FUM/FOLIC AC 1 EACH TABLET GT (08:07)
[2024-06-25] MEDS: ESOMEPRAZOLE 40 MG GT (08:07)
[2024-06-25] MEDS: SODIUM CHLORIDE TAB 1,000 MG TABLET.SOL 1000 MG GT ×2 (08:07→21:01)
[2024-06-25] MEDS: ACETAMINOPHEN 325 MG TABLET 650 MG GT ×2 (08:07→20:35)
[2024-06-25 12:00] VITALS: BP 149/89; PULSE 67; RESP 19; TEMP 36.2
[2024-06-25 17:02] VITALS: PULSE 78; RESP 18; O2SAT 97
[2024-06-25 17:36] VITALS: BP 150/86; PULSE 76; RESP 18; TEMP 36.1; O2SAT 98
[2024-06-25 20:35] VITALS: BP 160/87; PULSE 87
[2024-06-25] MEDS: LOSARTAN 100 MG TABLET GT (20:35)
[2024-06-25] MEDS: SENNOSIDES 8.6 MG TABLET 17.2 MG GT (21:01)
[2024-06-26] VITALS (7 sets, daily range): BP systolic 149–168; BP diastolic 81–88; PULSE 66–86; RESP 16–20; TEMP 36–36.3; O2SAT 96–98
[2024-06-26] MEDS: SOD PHOS DI, MONO/K PHOS MONO 250 MG TABLET GT (09:05)
[2024-06-26] MEDS: MULTIVIT-MIN/IRON FUM/FOLIC AC 1 EACH TABLET GT (09:05)
[2024-06-26] MEDS: ESOMEPRAZOLE 40 MG GT (09:05)
[2024-06-26] MEDS: SODIUM CHLORIDE TAB 1,000 MG TABLET.SOL 1000 MG GT ×2 (09:05→20:29)
[2024-06-26] MEDS: LOSARTAN 100 MG TABLET GT (20:28)
[2024-06-26] MEDS: SENNOSIDES 8.6 MG TABLET 17.2 MG GT (20:29)
[2024-06-27] VITALS (7 sets, daily range): BP systolic 105–152; BP diastolic 74–95; PULSE 70–90; RESP 16–24; TEMP 35.8–36.4; O2SAT 92–96
[2024-06-27] MEDS: SOD PHOS DI, MONO/K PHOS MONO 250 MG TABLET GT (09:24)
[2024-06-27] MEDS: SODIUM CHLORIDE TAB 1,000 MG TABLET.SOL 1000 MG GT ×2 (09:24→21:27)
[2024-06-27] MEDS: ESOMEPRAZOLE 40 MG GT (09:24)
[2024-06-27] MEDS: MULTIVIT-MIN/IRON FUM/FOLIC AC 1 EACH TABLET GT (09:24)
--- NOTE | 2024-06-27 15:29 | PC.SS ---
Room Visit: Resident remains in current care with no changes in care or condition. Remains on blow by with trach in place and GT for medication and nutrition. Resident is unable to make needs known, resident is represented by her daughter. Resident will remain in current care and will continue to have all subacute care needs met by staff. No changes in mood and behavior.
[2024-06-27] MEDS: LOSARTAN 100 MG TABLET GT (21:21)
[2024-06-27] MEDS: SENNOSIDES 8.6 MG TABLET 17.2 MG GT (21:22)
[2024-06-28] VITALS (8 sets, daily range): BP systolic 113–137; BP diastolic 70–83; PULSE 58–83; RESP 16–22; TEMP 36–36.3; O2SAT 95–98
[2024-06-28] MEDS: ESOMEPRAZOLE 40 MG GT (09:29)
[2024-06-28] MEDS: SOD PHOS DI, MONO/K PHOS MONO 250 MG TABLET GT (09:30)
[2024-06-28] MEDS: SODIUM CHLORIDE TAB 1,000 MG TABLET.SOL 1000 MG GT ×2 (09:30→20:22)
[2024-06-28] MEDS: MULTIVIT-MIN/IRON FUM/FOLIC AC 1 EACH TABLET GT (09:30)
[2024-06-28] MEDS: MAGNESIUM HYDROXIDE 30 ML ORAL SUSP ML GT (09:31)
--- NOTE | 2024-06-28 18:00 | PD.SAPROG ---
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 (2) Epilepsy, unspecified, not intractable, without status epilepticus: Status: Chronic (3) Essential (primary) hypertension: Status: Chronic (4) Tracheostomy status: Status: Chronic (5) Gastrostomy status: Status: Chronic (6) Chronic respiratory failure, unspecified whether with hypoxia or hypercapnia: Status: Chronic (7) Chronic hyponatremia: Status: Chronic SUBJECTIVE Fever:: none GI:: none Shortness of Breath:: none GI:: no complaints Pain:: none OBJECTIVE Most recent vital signs: Last Vital Signs Temp 97.2 F 06/30/24 17:38 Pulse 77 06/30/24 17:38 Resp 21 H 06/30/24 17:38 BP 138/79 H 06/30/24 17:38 Pulse Ox 98 06/30/24 17:38 O2 Del Method Blow-by 06/30/24 17:38 O2 Flow Rate 10 06/30/24 16:30 FiO2 35 06/30/24 16:30 Neurological:: alert Speech:: nods head, mouths words (sometimes) and appropriate Answers questions:: sometimes Respiratory:: shallow breathing Cardiovascular: RRR Abdomen: soft and nontender Extremities:: deformities Decubitus:: none Tracheostomy:: to blow by Feeding per:: G tube Complaints:: none ASSESSMENT & PLAN Assessment: Pt fully dependent for long-term care. No pain issues, and remains comfortable. Ice chips for some oral gratification tried with success without any cough or aspiration and continued.Remains fully dependent for care. interacts some and mostly happy. Tendency for Hypo-natremia on labs being monitored and addressed. No clinical change. Electrolytes improved. monitored regularly. Pt remains fully dependent for care. No discomfort / pain Plan: All treatment reviewed and continued.
[2024-06-28] MEDS: LOSARTAN 100 MG TABLET GT (20:21)
[2024-06-28] MEDS: SENNOSIDES 8.6 MG TABLET 17.2 MG GT (20:22)
[2024-06-28] MEDS: ACETAMINOPHEN 325 MG TABLET 650 MG GT (20:22)
[2024-06-29 06:00] VITALS: BP 144/81; PULSE 68; PULSE 72; PULSE 73; RESP 16; RESP 20; TEMP 35.9; O2SAT 97
[2024-06-29] MEDS: SODIUM CHLORIDE TAB 1,000 MG TABLET.SOL 1000 MG GT ×2 (08:59→20:26)
[2024-06-29] MEDS: SOD PHOS DI, MONO/K PHOS MONO 250 MG TABLET GT (08:59)
[2024-06-29] MEDS: ESOMEPRAZOLE 40 MG GT (08:59)
[2024-06-29] MEDS: MULTIVIT-MIN/IRON FUM/FOLIC AC 1 EACH TABLET GT (08:59)
[2024-06-29 12:00] VITALS: BP 150/87; PULSE 68; RESP 19; TEMP 36.1
[2024-06-29 17:02] VITALS: PULSE 82; RESP 16; O2SAT 99
[2024-06-29 17:32] VITALS: BP 127/78; PULSE 67; RESP 18; TEMP 36.1; O2SAT 98
[2024-06-29 20:25] VITALS: BP 139/83; PULSE 72
[2024-06-29] MEDS: LOSARTAN 100 MG TABLET GT (20:25)
[2024-06-29] MEDS: SENNOSIDES 8.6 MG TABLET 17.2 MG GT (20:26)
[2024-06-30] VITALS (8 sets, daily range): BP systolic 118–150; BP diastolic 79–85; PULSE 66–85; RESP 17–22; TEMP 35.9–36.2; O2SAT 96–98
[2024-06-30] MEDS: MULTIVIT-MIN/IRON FUM/FOLIC AC 1 EACH TABLET GT (08:27)
[2024-06-30] MEDS: SODIUM CHLORIDE TAB 1,000 MG TABLET.SOL 1000 MG GT ×2 (08:27→20:46)
[2024-06-30] MEDS: SOD PHOS DI, MONO/K PHOS MONO 250 MG TABLET GT (08:27)
[2024-06-30] MEDS: ESOMEPRAZOLE 40 MG GT (08:27)
[2024-06-30] MEDS: LOSARTAN 100 MG TABLET GT (20:45)
[2024-06-30] MEDS: SENNOSIDES 8.6 MG TABLET 17.2 MG GT (20:46)
[2024-07-01 06:00] VITALS: BP 142/90; PULSE 66; RESP 16; TEMP 36.1; O2SAT 96
[2024-07-01 07:42] VITALS: PULSE 70; RESP 19; O2SAT 98
[2024-07-01] MEDS: ESOMEPRAZOLE 40 MG GT (09:38)
[2024-07-01] MEDS: SOD PHOS DI, MONO/K PHOS MONO 250 MG TABLET GT (09:38)
[2024-07-01] MEDS: SODIUM CHLORIDE TAB 1,000 MG TABLET.SOL 1000 MG GT ×2 (09:38→20:08)
[2024-07-01] MEDS: MULTIVIT-MIN/IRON FUM/FOLIC AC 1 EACH TABLET GT (09:38)
[2024-07-01 12:00] VITALS: BP 134/86; PULSE 88; RESP 20; TEMP 36.2
--- NOTE | 2024-07-01 16:43 | PD.SAPROG ---
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 (2) Epilepsy, unspecified, not intractable, without status epilepticus: Status: Chronic (3) Essential (primary) hypertension: Status: Chronic (4) Tracheostomy status: Status: Chronic (5) Gastrostomy status: Status: Chronic (6) Chronic respiratory failure, unspecified whether with hypoxia or hypercapnia: Status: Chronic (7) Chronic hyponatremia: Status: Chronic SUBJECTIVE Fever:: none GI:: none Shortness of Breath:: none GI:: no complaints Pain:: none OBJECTIVE Most recent vital signs: Last Vital Signs Temp 96.9 F 07/01/24 06:00 Pulse 70 07/01/24 07:42 Resp 19 07/01/24 07:42 BP 142/90 H 07/01/24 06:00 Pulse Ox 98 07/01/24 07:42 O2 Del Method Blow-by 07/01/24 06:00 O2 Flow Rate 10 07/01/24 07:42 FiO2 35 07/01/24 07:42 Neurological:: alert Speech:: nods head, mouths words (sometimes) and appropriate Answers questions:: sometimes Respiratory:: shallow breathing Cardiovascular: RRR Abdomen: soft and nontender Extremities:: deformities Decubitus:: none Tracheostomy:: to blow by Feeding per:: G tube Complaints:: none ASSESSMENT & PLAN Assessment: 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 No pain issues, and remains comfortable. Ice chips for some oral gratification tried with success without any cough or aspiration and continued.Remains fully dependent for care. interacts some and mostly happy. Tendency for Hypo-natremia on labs being monitored and addressed. No clinical change. Electrolytes improved. monitored regularly. Pt remains fully dependent for care. No discomfort / pain Plan: All treatment reviewed and continued.
[2024-07-01 18:00] VITALS: BP 162/91; PULSE 67; RESP 21; TEMP 36.1
[2024-07-01 18:30] VITALS: PULSE 68; RESP 19; O2SAT 97
[2024-07-01 20:08] VITALS: BP 163/85; PULSE 76
[2024-07-01] MEDS: SENNOSIDES 8.6 MG TABLET 17.2 MG GT (20:08)
[2024-07-01] MEDS: LOSARTAN 100 MG TABLET GT (20:08)
[2024-07-02] VITALS (8 sets, daily range): BP systolic 127–164; BP diastolic 80–85; PULSE 69–82; RESP 16–21; TEMP 36.1–36.6; O2SAT 95–98
[2024-07-02 08:32] LABS: Albumin, Serum 4.5 gm/dL (3.4-4.8); Anion Gap 8 (7-16); BUN/Creatinine Ratio 33 Ratio (12-20); Blood Urea Nitrogen 13 mg/dL (9-23); Calcium 9.7 mg/dL (8.3-10.6); Calcium (Corrected) 9.7 mg/dL (8.5-10.1); Carbon Dioxide 27.5 mMol/L (20.0-31.0); Chloride 95 mMol/L (98-107); Creatinine (Component) 0.4 mg/dL (0.6-1.3); Estimated Creatinine Clearance 100.9 mL/min (>60); Glucose 104 mg/dL (74-106); Osmolality,Calculated 260 (275-295); Phosphorous 3.7 mg/dL (2.4-5.1); Potassium 4.2 mMol/L (3.4-5.1); Sodium 130 mMol/L (136-145); eGFR > 60 See Note
[2024-07-02] MEDS: ESOMEPRAZOLE 40 MG GT (09:04)
[2024-07-02] MEDS: SOD PHOS DI, MONO/K PHOS MONO 250 MG TABLET GT (09:05)
[2024-07-02] MEDS: MULTIVIT-MIN/IRON FUM/FOLIC AC 1 EACH TABLET GT (09:06)
[2024-07-02] MEDS: SODIUM CHLORIDE TAB 1,000 MG TABLET.SOL 1000 MG GT ×2 (09:06→20:13)
--- NOTE | 2024-07-02 17:37 | PC.NURSE ---
Spoke with Dr Gonsalez and verbally reported resident's renal panel result with sodium level of 130. Currently on NaCl 1000 mg BID and fluid restriction of 800 max q shift, no edema noted. Order received to repeat renal panel in 6 weeks (08/13/24)
[2024-07-02] MEDS: LOSARTAN 100 MG TABLET GT (20:12)
[2024-07-02] MEDS: SENNOSIDES 8.6 MG TABLET 17.2 MG GT (20:13)
[2024-07-02] MEDS: ACETAMINOPHEN 325 MG TABLET 650 MG GT (20:14)
[2024-07-03 04:54] VITALS: BP 139/84; PULSE 67; RESP 18; TEMP 36.1; O2SAT 95
[2024-07-03 06:15] VITALS: PULSE 67; RESP 18; O2SAT 97
[2024-07-03] MEDS: SOD PHOS DI, MONO/K PHOS MONO 250 MG TABLET GT (08:28)
[2024-07-03] MEDS: ESOMEPRAZOLE 40 MG GT (08:28)
[2024-07-03] MEDS: MULTIVIT-MIN/IRON FUM/FOLIC AC 1 EACH TABLET GT (08:29)
[2024-07-03] MEDS: ACETAMINOPHEN 325 MG TABLET 650 MG GT ×2 (08:30→20:26)
[2024-07-03] MEDS: SODIUM CHLORIDE TAB 1,000 MG TABLET.SOL 1000 MG GT ×2 (08:30→20:26)
[2024-07-03 12:00] VITALS: BP 162/81; PULSE 67; RESP 18; TEMP 36.1
[2024-07-03 17:11] VITALS: BP 156/86; PULSE 84; RESP 19; TEMP 36.4; O2SAT 99
[2024-07-03 18:50] VITALS: PULSE 70; RESP 18; O2SAT 95
[2024-07-03 20:23] VITALS: BP 138/80; PULSE 78
[2024-07-03] MEDS: LOSARTAN 100 MG TABLET GT (20:23)
[2024-07-03] MEDS: SENNOSIDES 8.6 MG TABLET 17.2 MG GT (20:26)
[2024-07-04] VITALS (7 sets, daily range): BP systolic 137–156; BP diastolic 79–89; PULSE 66–90; RESP 18–22; TEMP 36–36.7; O2SAT 96–97
[2024-07-04] MEDS: ESOMEPRAZOLE 40 MG GT (09:21)
[2024-07-04] MEDS: MULTIVIT-MIN/IRON FUM/FOLIC AC 1 EACH TABLET GT (09:21)
[2024-07-04] MEDS: SOD PHOS DI, MONO/K PHOS MONO 250 MG TABLET GT (09:21)
[2024-07-04] MEDS: SODIUM CHLORIDE TAB 1,000 MG TABLET.SOL 1000 MG GT ×2 (09:22→20:40)
[2024-07-04] MEDS: SENNOSIDES 8.6 MG TABLET 17.2 MG GT (20:40)
[2024-07-04] MEDS: LOSARTAN 100 MG TABLET GT (20:40)
[2024-07-05] VITALS (8 sets, daily range): BP systolic 136–170; BP diastolic 83–88; PULSE 59–75; RESP 17–24; TEMP 35.9–36.3; O2SAT 92–98
[2024-07-05] MEDS: ACETAMINOPHEN 325 MG TABLET 650 MG GT (05:50)
[2024-07-05] MEDS: ESOMEPRAZOLE 40 MG GT (08:47)
[2024-07-05] MEDS: SODIUM CHLORIDE TAB 1,000 MG TABLET.SOL 1000 MG GT ×2 (08:47→20:27)
[2024-07-05] MEDS: MULTIVIT-MIN/IRON FUM/FOLIC AC 1 EACH TABLET GT (08:47)
[2024-07-05] MEDS: SOD PHOS DI, MONO/K PHOS MONO 250 MG TABLET GT (08:47)
--- NOTE | 2024-07-05 19:11 | ESPR_ITS ---
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 (2) Epilepsy, unspecified, not intractable, without status epilepticus: Status: Chronic (3) Essential (primary) hypertension: Status: Chronic (4) Tracheostomy status: Status: Chronic (5) Gastrostomy status: Status: Chronic (6) Chronic respiratory failure, unspecified whether with hypoxia or hypercapnia: Status: Chronic (7) Chronic hyponatremia: Status: Chronic SUBJECTIVE Fever:: none GI:: none Shortness of Breath:: none GI:: no complaints Pain:: none OBJECTIVE Most recent vital signs: Last Vital Signs Temp 97.2 F 07/05/24 17:26 Pulse 73 07/05/24 17:26 Resp 22 H 07/05/24 17:26 BP 136/85 H 07/05/24 17:26 Pulse Ox 98 07/05/24 17:26 O2 Del Method Blow-by 07/05/24 17:26 O2 Flow Rate 10 07/05/24 16:12 FiO2 35 07/05/24 16:12 Neurological:: alert Speech:: nods head, mouths words (sometimes) and appropriate Answers questions:: sometimes Respiratory:: shallow breathing Cardiovascular: RRR Abdomen: soft and nontender Extremities:: deformities Decubitus:: none Tracheostomy:: to blow by Feeding per:: G tube Complaints:: none ASSESSMENT & PLAN Assessment: Pt fully dependent for [facility] care. No pain issues, and remains comfortable. Ice chips for some oral gratification tried with success without any cough or aspiration and continued.Remains fully dependent for care. interacts some and mostly happy. Tendency for Hypo-natremia on labs being monitored and addressed. No clinical change. Electrolytes improved. monitored regularly. Pt remains fully dependent for care. No discomfort / pain. VSS Plan: All treatment reviewed and continued.
[2024-07-05] MEDS: LOSARTAN 100 MG TABLET GT (20:26)
[2024-07-05] MEDS: SENNOSIDES 8.6 MG TABLET 17.2 MG GT (20:27)
[2024-07-06] VITALS (7 sets, daily range): BP systolic 125–138; BP diastolic 74–90; PULSE 62–82; RESP 18–22; TEMP 35.9–36.6; O2SAT 92–97
[2024-07-06] MEDS: ALBUTEROL INHALER 200 PUFF/INH INHALER INH (08:17)
[2024-07-06] MEDS: ESOMEPRAZOLE 40 MG GT (08:46)
[2024-07-06] MEDS: MULTIVIT-MIN/IRON FUM/FOLIC AC 1 EACH TABLET GT (08:46)
[2024-07-06] MEDS: SOD PHOS DI, MONO/K PHOS MONO 250 MG TABLET GT (08:46)
[2024-07-06] MEDS: SODIUM CHLORIDE TAB 1,000 MG TABLET.SOL 1000 MG GT ×2 (08:47→20:30)
[2024-07-06] MEDS: SENNOSIDES 8.6 MG TABLET 17.2 MG GT (20:30)
[2024-07-06] MEDS: LOSARTAN 100 MG TABLET GT (20:30)
[2024-07-06] MEDS: ACETAMINOPHEN 325 MG TABLET 650 MG GT (20:30)
[2024-07-07 05:46] VITALS: BP 148/90; PULSE 76; RESP 20; TEMP 36.3; O2SAT 97
[2024-07-07 06:51] VITALS: PULSE 67; RESP 22; O2SAT 95
[2024-07-07] MEDS: SODIUM CHLORIDE TAB 1,000 MG TABLET.SOL 1000 MG GT ×2 (08:02→20:27)
[2024-07-07] MEDS: MULTIVIT-MIN/IRON FUM/FOLIC AC 1 EACH TABLET GT (08:02)
[2024-07-07] MEDS: SOD PHOS DI, MONO/K PHOS MONO 250 MG TABLET GT (08:02)
[2024-07-07] MEDS: ESOMEPRAZOLE 40 MG GT (08:02)
[2024-07-07 19:52] VITALS: PULSE 74; RESP 20; O2SAT 93
[2024-07-07 20:25] VITALS: BP 137/73; PULSE 79
[2024-07-07] MEDS: LOSARTAN 100 MG TABLET GT (20:25)
[2024-07-07] MEDS: SENNOSIDES 8.6 MG TABLET 17.2 MG GT (20:26)
[2024-07-07] MEDS: ACETAMINOPHEN 325 MG TABLET 650 MG GT (20:27)
[2024-07-08] VITALS (8 sets, daily range): BP systolic 131–165; BP diastolic 79–91; PULSE 75–104; RESP 18–26; TEMP 36.1–36.3; O2SAT 92–99
[2024-07-08] MEDS: ALBUTEROL INHALER 200 PUFF/INH INHALER INH (00:25)
[2024-07-08] MEDS: MULTIVIT-MIN/IRON FUM/FOLIC AC 1 EACH TABLET GT (08:56)
[2024-07-08] MEDS: SOD PHOS DI, MONO/K PHOS MONO 250 MG TABLET GT (08:56)
[2024-07-08] MEDS: ESOMEPRAZOLE 40 MG GT (08:56)
[2024-07-08] MEDS: SODIUM CHLORIDE TAB 1,000 MG TABLET.SOL 1000 MG GT ×2 (08:56→20:18)
[2024-07-08] MEDS: LOSARTAN 100 MG TABLET GT (20:17)
[2024-07-08] MEDS: SENNOSIDES 8.6 MG TABLET 17.2 MG GT (20:18)
[2024-07-08] MEDS: ACETAMINOPHEN 325 MG TABLET 650 MG GT (20:18)
[2024-07-09] VITALS: BP 124/81; PULSE 83; RESP 21; TEMP 36.4
[2024-07-09 06:30] VITALS: PULSE 95; RESP 18; O2SAT 98
[2024-07-09] MEDS: ESOMEPRAZOLE 40 MG GT (09:00)
[2024-07-09] MEDS: SOD PHOS DI, MONO/K PHOS MONO 250 MG TABLET GT (09:01)
[2024-07-09] MEDS: MULTIVIT-MIN/IRON FUM/FOLIC AC 1 EACH TABLET GT (09:01)
[2024-07-09] MEDS: SODIUM CHLORIDE TAB 1,000 MG TABLET.SOL 1000 MG GT ×2 (09:01→21:42)
[2024-07-09 12:00] VITALS: BP 133/82; PULSE 80; RESP 19; TEMP 36.2
[2024-07-09 18:00] VITALS: BP 151/85; PULSE 80; RESP 19; TEMP 36.1; O2SAT 98
[2024-07-09 18:40] VITALS: PULSE 97; RESP 18; O2SAT 98
--- NOTE | 2024-07-09 20:38 | PD.SAPROG ---
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 (2) Epilepsy, unspecified, not intractable, without status epilepticus: Status: Chronic (3) Essential (primary) hypertension: Status: Chronic (4) Tracheostomy status: Status: Chronic (5) Gastrostomy status: Status: Chronic (6) Chronic respiratory failure, unspecified whether with hypoxia or hypercapnia: Status: Chronic (7) Chronic hyponatremia: Status: Chronic SUBJECTIVE Fever:: none GI:: none Shortness of Breath:: none GI:: no complaints Pain:: none OBJECTIVE Most recent vital signs: Last Vital Signs Temp 96.9 F 07/09/24 18:00 Pulse 80 07/09/24 18:00 Resp 19 07/09/24 18:00 BP 151/85 H 07/09/24 18:00 Pulse Ox 98 07/09/24 18:00 O2 Del Method Blow-by 07/08/24 18:00 O2 Flow Rate 10 07/09/24 06:30 FiO2 35 07/09/24 06:30 Neurological:: alert Speech:: nods head, mouths words (sometimes) and appropriate Answers questions:: sometimes Respiratory:: shallow breathing Cardiovascular: RRR Abdomen: soft and nontender Extremities:: deformities Decubitus:: none Tracheostomy:: to blow by Feeding per:: G tube Complaints:: none ASSESSMENT & PLAN Assessment: 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 No pain issues, and remains comfortable. Ice chips for some oral gratification tried with success without any cough or aspiration and continued.Remains fully dependent for care. interacts some and mostly happy. Tendency for Hypo-natremia on labs being monitored and addressed. No clinical change. Electrolytes improved. monitored regularly. Pt remains fully dependent for care. No discomfort / pain. VSS Plan: All treatment reviewed and continued.
[2024-07-09 21:40] VITALS: BP 151/85; PULSE 80
[2024-07-09] MEDS: LOSARTAN 100 MG TABLET GT (21:40)
[2024-07-09] MEDS: SENNOSIDES 8.6 MG TABLET 17.2 MG GT (21:41)
[2024-07-10] VITALS: BP 143/86; PULSE 71; RESP 24; TEMP 35.8
[2024-07-10 06:05] VITALS: PULSE 64; RESP 18; O2SAT 94
[2024-07-10] MEDS: ESOMEPRAZOLE 40 MG GT (08:03)
[2024-07-10] MEDS: MULTIVIT-MIN/IRON FUM/FOLIC AC 1 EACH TABLET GT (08:03)
[2024-07-10] MEDS: SODIUM CHLORIDE TAB 1,000 MG TABLET.SOL 1000 MG GT ×2 (08:03→21:10)
[2024-07-10] MEDS: SOD PHOS DI, MONO/K PHOS MONO 250 MG TABLET GT (08:03)
[2024-07-10 12:00] VITALS: BP 137/85; PULSE 60; RESP 22; TEMP 35.9
[2024-07-10 17:39] VITALS: BP 148/79; PULSE 61; RESP 22; TEMP 36.2; O2SAT 94
[2024-07-10 21:09] VITALS: BP 143/80; PULSE 68
[2024-07-10] MEDS: LOSARTAN 100 MG TABLET GT (21:09)
[2024-07-10] MEDS: SENNOSIDES 8.6 MG TABLET 17.2 MG GT (21:10)
[2024-07-10] MEDS: ACETAMINOPHEN 325 MG TABLET 650 MG GT (21:14)
[2024-07-11] VITALS (8 sets, daily range): BP systolic 112–156; BP diastolic 74–92; PULSE 62–84; RESP 18–24; TEMP 35.8–36.1; O2SAT 96–99; BMI 26.6
[2024-07-11] MEDS: SOD PHOS DI, MONO/K PHOS MONO 250 MG TABLET GT (09:48)
[2024-07-11] MEDS: ESOMEPRAZOLE 40 MG GT (09:48)
[2024-07-11] MEDS: MULTIVIT-MIN/IRON FUM/FOLIC AC 1 EACH TABLET GT (09:48)
[2024-07-11] MEDS: SODIUM CHLORIDE TAB 1,000 MG TABLET.SOL 1000 MG GT ×2 (09:48→21:00)
--- NOTE | 2024-07-11 12:15 | PC.SS ---
Room visit: Resident is laying in bed with head of the bed elevated with call light properly placed with no signs of distress. Resident is non verbal in good spirits, she is represented by her daughter Homa Griffiths. Resident has no changes in care or condition she remains on blow by with trach in place and GT for medication and nutrition. She will remain in current care and will have all subacute care needs met by staff. This SSD will continue to make daily contact with resident and monitor for changes in mood and behavior.
[2024-07-11] MEDS: SENNOSIDES 8.6 MG TABLET 17.2 MG GT (21:00)
[2024-07-11] MEDS: LOSARTAN 100 MG TABLET GT (21:00)
[2024-07-12] VITALS (7 sets, daily range): BP systolic 121–165; BP diastolic 77–87; PULSE 56–83; RESP 17–20; TEMP 36.1; O2SAT 97–99
[2024-07-12] MEDS: SOD PHOS DI, MONO/K PHOS MONO 250 MG TABLET GT (08:41)
[2024-07-12] MEDS: ESOMEPRAZOLE 40 MG GT (08:41)
[2024-07-12] MEDS: MULTIVIT-MIN/IRON FUM/FOLIC AC 1 EACH TABLET GT (08:42)
[2024-07-12] MEDS: SODIUM CHLORIDE TAB 1,000 MG TABLET.SOL 1000 MG GT ×2 (08:42→20:47)
--- NOTE | 2024-07-12 16:01 | PC.NURSE ---
Late entry for 07/11/24 Dr Gonsalez made rounds, no new orders made
[2024-07-12] MEDS: LOSARTAN 100 MG TABLET GT (20:45)
[2024-07-12] MEDS: SENNOSIDES 8.6 MG TABLET 17.2 MG GT (20:45)
[2024-07-13] VITALS (7 sets, daily range): BP systolic 123–162; BP diastolic 80–90; PULSE 65–90; RESP 16–22; TEMP 36.1–36.6; O2SAT 96–98
[2024-07-13] MEDS: SODIUM CHLORIDE TAB 1,000 MG TABLET.SOL 1000 MG GT ×2 (09:22→20:55)
[2024-07-13] MEDS: SOD PHOS DI, MONO/K PHOS MONO 250 MG TABLET GT (09:22)
[2024-07-13] MEDS: ESOMEPRAZOLE 40 MG GT (09:22)
[2024-07-13] MEDS: MULTIVIT-MIN/IRON FUM/FOLIC AC 1 EACH TABLET GT (09:22)
--- NOTE | 2024-07-13 09:38 | ESPR_ITS ---
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 (2) Epilepsy, unspecified, not intractable, without status epilepticus: Status: Chronic (3) Essential (primary) hypertension: Status: Chronic (4) Tracheostomy status: Status: Chronic (5) Gastrostomy status: Status: Chronic (6) Chronic respiratory failure, unspecified whether with hypoxia or hypercapnia: Status: Chronic (7) Chronic hyponatremia: Status: Chronic SUBJECTIVE Fever:: none GI:: none Shortness of Breath:: none GI:: no complaints Pain:: none OBJECTIVE Most recent vital signs: Last Vital Signs Temp 97.2 F 07/13/24 06:00 Pulse 86 07/13/24 06:45 Resp 16 07/13/24 06:45 BP 127/87 H 07/13/24 06:00 Pulse Ox 97 07/13/24 06:45 O2 Del Method Blow-by 07/13/24 06:00 O2 Flow Rate 10 07/13/24 06:45 FiO2 35 07/13/24 06:45 Neurological:: alert Speech:: nods head, mouths words (sometimes) and appropriate Answers questions:: sometimes Respiratory:: shallow breathing Cardiovascular: RRR Abdomen: soft and nontender Extremities:: deformities Decubitus:: none Tracheostomy:: to blow by Feeding per:: G tube Complaints:: none ASSESSMENT & PLAN Assessment: 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 No pain issues, and remains comfortable. Ice chips for some oral gratification tried with success without any cough or aspiration and continued.Remains fully dependent for care. interacts some and mostly happy. Tendency for Hypo-natremia on labs being monitored and addressed. No clinical change. Electrolytes improved. monitored regularly. Pt remains fully dependent for care. No discomfort / pain. VSS Plan: All treatment reviewed and continued.
[2024-07-13] MEDS: LOSARTAN 100 MG TABLET GT (20:55)
[2024-07-13] MEDS: SENNOSIDES 8.6 MG TABLET 17.2 MG GT (20:55)
[2024-07-13] MEDS: ACETAMINOPHEN 325 MG TABLET 650 MG GT (23:23)
[2024-07-14] VITALS (8 sets, daily range): BP systolic 117–138; BP diastolic 56–88; PULSE 71–96; RESP 16–20; TEMP 36.1–36.7; O2SAT 97–98
[2024-07-14] MEDS: ESOMEPRAZOLE 40 MG GT (08:08)
[2024-07-14] MEDS: SODIUM CHLORIDE TAB 1,000 MG TABLET.SOL 1000 MG GT ×2 (08:08→20:56)
[2024-07-14] MEDS: SOD PHOS DI, MONO/K PHOS MONO 250 MG TABLET GT (08:08)
[2024-07-14] MEDS: MULTIVIT-MIN/IRON FUM/FOLIC AC 1 EACH TABLET GT (08:08)
[2024-07-14] MEDS: SENNOSIDES 8.6 MG TABLET 17.2 MG GT (20:55)
[2024-07-14] MEDS: ACETAMINOPHEN 325 MG TABLET 650 MG GT (20:56)
[2024-07-14] MEDS: LOSARTAN 100 MG TABLET GT (21:06)
[2024-07-15 06:00] VITALS: BP 124/87; PULSE 81; RESP 20; TEMP 36.4; O2SAT 96
[2024-07-15 06:45] VITALS: PULSE 78; RESP 18; O2SAT 98
[2024-07-15] MEDS: SOD PHOS DI, MONO/K PHOS MONO 250 MG TABLET GT (08:56)
[2024-07-15] MEDS: ESOMEPRAZOLE 40 MG GT (08:56)
[2024-07-15] MEDS: MULTIVIT-MIN/IRON FUM/FOLIC AC 1 EACH TABLET GT (08:57)
[2024-07-15] MEDS: SODIUM CHLORIDE TAB 1,000 MG TABLET.SOL 1000 MG GT ×2 (08:57→20:17)
[2024-07-15] MEDS: ACETAMINOPHEN 325 MG TABLET 650 MG GT ×2 (09:41→20:17)
[2024-07-15 11:54] VITALS: BP 139/82; PULSE 79; RESP 20; TEMP 36.3
[2024-07-15 18:00] VITALS: BP 119/73; PULSE 69; PULSE 72; RESP 18; RESP 20; TEMP 35.9; O2SAT 95; O2SAT 99
[2024-07-15 20:16] VITALS: BP 121/76; PULSE 70
[2024-07-15] MEDS: LOSARTAN 100 MG TABLET GT (20:16)
[2024-07-15] MEDS: SENNOSIDES 8.6 MG TABLET 17.2 MG GT (20:17)
[2024-07-16] VITALS (7 sets, daily range): BP systolic 104–154; BP diastolic 67–89; PULSE 62–91; RESP 16–24; TEMP 35.8–36.2; O2SAT 95–98
[2024-07-16] MEDS: SOD PHOS DI, MONO/K PHOS MONO 250 MG TABLET GT (09:06)
[2024-07-16] MEDS: SODIUM CHLORIDE TAB 1,000 MG TABLET.SOL 1000 MG GT ×2 (09:06→20:12)
[2024-07-16] MEDS: ESOMEPRAZOLE 40 MG GT (09:06)
[2024-07-16] MEDS: MULTIVIT-MIN/IRON FUM/FOLIC AC 1 EACH TABLET GT (09:06)
[2024-07-16] MEDS: SENNOSIDES 8.6 MG TABLET 17.2 MG GT (20:12)
[2024-07-16] MEDS: LOSARTAN 100 MG TABLET GT (20:12)
[2024-07-17] VITALS: BP 152/85; PULSE 70; RESP 18; TEMP 36.1
[2024-07-17 06:00] VITALS: BP 147/76; PULSE 74; PULSE 78; RESP 18; RESP 20; TEMP 36.2; O2SAT 100; O2SAT 96; O2SAT 98
[2024-07-17] MEDS: SOD PHOS DI, MONO/K PHOS MONO 250 MG TABLET GT (08:05)
[2024-07-17] MEDS: ESOMEPRAZOLE 40 MG GT (08:05)
[2024-07-17] MEDS: MULTIVIT-MIN/IRON FUM/FOLIC AC 1 EACH TABLET GT (08:05)
[2024-07-17] MEDS: SODIUM CHLORIDE TAB 1,000 MG TABLET.SOL 1000 MG GT ×2 (08:05→20:55)
[2024-07-17 12:00] VITALS: BP 160/83; PULSE 71; RESP 19; TEMP 36
--- NOTE | 2024-07-17 15:22 | PD.SAPROG ---
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 (2) Epilepsy, unspecified, not intractable, without status epilepticus: Status: Chronic (3) Essential (primary) hypertension: Status: Chronic (4) Tracheostomy status: Status: Chronic (5) Gastrostomy status: Status: Chronic (6) Chronic respiratory failure, unspecified whether with hypoxia or hypercapnia: Status: Chronic (7) Chronic hyponatremia: Status: Chronic SUBJECTIVE Fever:: none GI:: none Shortness of Breath:: none GI:: no complaints Pain:: none OBJECTIVE Most recent vital signs: Last Vital Signs Temp 96.8 F 07/17/24 12:00 Pulse 71 07/17/24 12:00 Resp 19 07/17/24 12:00 BP 160/83 H 07/17/24 12:00 Pulse Ox 98 07/17/24 06:00 O2 Del Method Blow-by 07/17/24 06:00 O2 Flow Rate 10 07/17/24 06:00 FiO2 35 07/17/24 06:00 Neurological:: alert Speech:: nods head, mouths words (sometimes) and appropriate Answers questions:: sometimes Respiratory:: shallow breathing Cardiovascular: RRR Abdomen: soft and nontender Extremities:: deformities Decubitus:: none Tracheostomy:: to blow by Feeding per:: G tube Complaints:: none ASSESSMENT & PLAN Assessment: 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 No pain issues, and remains comfortable. Ice chips for some oral gratification tried with success without any cough or aspiration and continued.Remains fully dependent for care. interacts some and mostly happy. Tendency for Hypo-natremia on labs being monitored and addressed. No clinical change. Electrolytes improved. monitored regularly. Pt remains fully dependent for care. No discomfort / pain. VSS Plan: All treatment reviewed and continued.
[2024-07-17 17:45] VITALS: BP 117/88; PULSE 78; RESP 17; TEMP 36.1; O2SAT 99
[2024-07-17 19:44] VITALS: PULSE 88; RESP 18; O2SAT 93
[2024-07-17 20:54] VITALS: BP 148/88; PULSE 84
[2024-07-17] MEDS: LOSARTAN 100 MG TABLET GT (20:54)
[2024-07-17] MEDS: SENNOSIDES 8.6 MG TABLET 17.2 MG GT (20:55)
[2024-07-17] MEDS: MAGNESIUM HYDROXIDE 30 ML ORAL SUSP ML GT (20:56)
[2024-07-18] VITALS: BP 128/93; PULSE 117; RESP 20; TEMP 36.7
[2024-07-18 05:17] VITALS: BP 152/85; PULSE 116; RESP 18; TEMP 36.7; O2SAT 97
[2024-07-18 06:59] VITALS: PULSE 104; RESP 18; O2SAT 97
[2024-07-18] MEDS: ESOMEPRAZOLE 40 MG GT (08:48)
[2024-07-18] MEDS: ACETAMINOPHEN 325 MG TABLET 650 MG GT ×2 (08:49→16:55)
[2024-07-18] MEDS: SOD PHOS DI, MONO/K PHOS MONO 250 MG TABLET GT (08:49)
[2024-07-18] MEDS: SODIUM CHLORIDE TAB 1,000 MG TABLET.SOL 1000 MG GT ×2 (08:49→21:15)
[2024-07-18] MEDS: MULTIVIT-MIN/IRON FUM/FOLIC AC 1 EACH TABLET GT (08:49)
[2024-07-18 16:56] VITALS: PULSE 97; RESP 22; O2SAT 94
[2024-07-18] MEDS: IPRATROPIUM BROMIDE 200 PUFF/INH INHALER INH (16:56)
[2024-07-18] MEDS: ALBUTEROL INHALER 200 PUFF/INH INHALER INH (16:56)
[2024-07-18 20:05] VITALS: PULSE 84; RESP 18; O2SAT 96
[2024-07-18 21:14] VITALS: BP 113/82; PULSE 96
[2024-07-18] MEDS: LOSARTAN 100 MG TABLET GT (21:14)
[2024-07-18] MEDS: SENNOSIDES 8.6 MG TABLET 17.2 MG GT (21:15)
[2024-07-19] VITALS (7 sets, daily range): BP systolic 112–128; BP diastolic 74–86; PULSE 73–86; RESP 18–20; TEMP 35.9–36.7; O2SAT 97–98
[2024-07-19] MEDS: MULTIVIT-MIN/IRON FUM/FOLIC AC 1 EACH TABLET GT (09:31)
[2024-07-19] MEDS: ESOMEPRAZOLE 40 MG GT (09:31)
[2024-07-19] MEDS: SODIUM CHLORIDE TAB 1,000 MG TABLET.SOL 1000 MG GT ×2 (09:31→20:31)
[2024-07-19] MEDS: SOD PHOS DI, MONO/K PHOS MONO 250 MG TABLET GT (09:31)
[2024-07-19] MEDS: LOSARTAN 100 MG TABLET GT (20:30)
[2024-07-19] MEDS: SENNOSIDES 8.6 MG TABLET 17.2 MG GT (20:31)
[2024-07-20] VITALS: BP 115/73; PULSE 70; RESP 16; TEMP 36.1
[2024-07-20 06:00] VITALS: BP 125/72; PULSE 52; RESP 18; TEMP 36.1; O2SAT 98
[2024-07-20 06:08] VITALS: PULSE 82; RESP 19; RESP 20; O2SAT 93; O2SAT 95
[2024-07-20] MEDS: ALBUTEROL INHALER 200 PUFF/INH INHALER INH (06:08)
[2024-07-20] MEDS: SODIUM CHLORIDE TAB 1,000 MG TABLET.SOL 1000 MG GT ×2 (08:15→20:23)
[2024-07-20] MEDS: ESOMEPRAZOLE 40 MG GT (08:15)
[2024-07-20] MEDS: SOD PHOS DI, MONO/K PHOS MONO 250 MG TABLET GT (08:15)
[2024-07-20] MEDS: MULTIVIT-MIN/IRON FUM/FOLIC AC 1 EACH TABLET GT (08:15)
[2024-07-20 11:42] VITALS: BP 131/82; PULSE 81; RESP 19; TEMP 36.3
[2024-07-20 18:25] VITALS: PULSE 77; RESP 18; O2SAT 97
[2024-07-20 20:22] VITALS: BP 140/85; PULSE 90
[2024-07-20] MEDS: LOSARTAN 100 MG TABLET GT (20:22)
[2024-07-20] MEDS: SENNOSIDES 8.6 MG TABLET 17.2 MG GT (20:23)
[2024-07-21] VITALS (7 sets, daily range): BP systolic 129–155; BP diastolic 7–86; PULSE 73–88; RESP 19–24; TEMP 36.1–36.5; O2SAT 97–98
[2024-07-21] MEDS: MULTIVIT-MIN/IRON FUM/FOLIC AC 1 EACH TABLET GT (08:38)
[2024-07-21] MEDS: SOD PHOS DI, MONO/K PHOS MONO 250 MG TABLET GT (08:38)
[2024-07-21] MEDS: SODIUM CHLORIDE TAB 1,000 MG TABLET.SOL 1000 MG GT ×2 (08:38→20:46)
[2024-07-21] MEDS: ESOMEPRAZOLE 40 MG GT (08:38)
--- NOTE | 2024-07-21 12:11 | PC.SS ---
Resident seen by Web Operations Administrator/ Dr. Berry for routine toe nail trim. Resident tolerated treatment well, see physicians notes for recommendations and any new orders
[2024-07-21] MEDS: CARBAMIDE PEROXIDE OTIC SOL 15 ML BTL 5 DROP BOTH EARS (20:44)
[2024-07-21] MEDS: LOSARTAN 100 MG TABLET GT (20:45)
[2024-07-21] MEDS: SENNOSIDES 8.6 MG TABLET 17.2 MG GT (20:46)
--- NOTE | 2024-07-21 22:36 | PD.SAPROG ---
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 (2) Epilepsy, unspecified, not intractable, without status epilepticus: Status: Chronic (3) Essential (primary) hypertension: Status: Chronic (4) Tracheostomy status: Status: Chronic (5) Gastrostomy status: Status: Chronic (6) Chronic respiratory failure, unspecified whether with hypoxia or hypercapnia: Status: Chronic (7) Chronic hyponatremia: Status: Chronic SUBJECTIVE Fever:: none GI:: none Shortness of Breath:: none GI:: no complaints Pain:: none OBJECTIVE Most recent vital signs: Last Vital Signs Temp 96.9 F 07/21/24 17:44 Pulse 78 07/21/24 20:45 Resp 20 07/21/24 17:44 BP 130/7 L 07/21/24 20:45 Pulse Ox 98 07/21/24 17:44 O2 Del Method Blow-by 07/19/24 06:00 O2 Flow Rate 10 07/21/24 06:45 FiO2 35 07/21/24 06:45 Neurological:: alert Speech:: nods head, mouths words (sometimes) and appropriate Answers questions:: sometimes Respiratory:: shallow breathing Cardiovascular: RRR Abdomen: soft and nontender Extremities:: deformities Decubitus:: none Tracheostomy:: to blow by Feeding per:: G tube Complaints:: none ASSESSMENT & PLAN Assessment: 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 No pain issues, and remains comfortable. Ice chips for some oral gratification tried with success without any cough or aspiration and continued.Remains fully dependent for care. interacts some and mostly happy. Tendency for Hypo-natremia on labs being monitored and addressed. No clinical change. Electrolytes improved. monitored regularly. Pt remains fully dependent for care. No discomfort / pain. VSS Plan: All treatment reviewed and continued.
[2024-07-22] VITALS (7 sets, daily range): BP systolic 131–157; BP diastolic 81–87; PULSE 69–669; RESP 17–20; TEMP 36–36.4; O2SAT 97–98
[2024-07-22] MEDS: ESOMEPRAZOLE 40 MG GT (09:28)
[2024-07-22] MEDS: SOD PHOS DI, MONO/K PHOS MONO 250 MG TABLET GT (09:28)
[2024-07-22] MEDS: CARBAMIDE PEROXIDE OTIC SOL 15 ML BTL 5 DROP BOTH EARS ×2 (09:28→20:14)
[2024-07-22] MEDS: MULTIVIT-MIN/IRON FUM/FOLIC AC 1 EACH TABLET GT (09:28)
[2024-07-22] MEDS: SODIUM CHLORIDE TAB 1,000 MG TABLET.SOL 1000 MG GT ×2 (09:28→20:16)
[2024-07-22] MEDS: SENNOSIDES 8.6 MG TABLET 17.2 MG GT (20:15)
[2024-07-22] MEDS: LOSARTAN 100 MG TABLET GT (20:15)
[2024-07-22] MEDS: ACETAMINOPHEN 325 MG TABLET 650 MG GT (20:16)
[2024-07-23] VITALS (7 sets, daily range): BP systolic 127–147; BP diastolic 81–90; PULSE 74–84; RESP 18–24; TEMP 36.1–36.3; O2SAT 93–98
[2024-07-23] MEDS: MULTIVIT-MIN/IRON FUM/FOLIC AC 1 EACH TABLET GT (09:17)
[2024-07-23] MEDS: SODIUM CHLORIDE TAB 1,000 MG TABLET.SOL 1000 MG GT ×2 (09:17→20:11)
[2024-07-23] MEDS: CARBAMIDE PEROXIDE OTIC SOL 15 ML BTL 5 DROP BOTH EARS (09:17)
[2024-07-23] MEDS: ESOMEPRAZOLE 40 MG GT (09:17)
[2024-07-23] MEDS: SOD PHOS DI, MONO/K PHOS MONO 250 MG TABLET GT (09:17)
[2024-07-23] MEDS: LOSARTAN 100 MG TABLET GT (20:10)
[2024-07-23] MEDS: SENNOSIDES 8.6 MG TABLET 17.2 MG GT (20:11)
[2024-07-24] VITALS: BP 143/81; PULSE 71; RESP 20; TEMP 35.8
[2024-07-24 06:00] VITALS: BP 148/83; PULSE 83; RESP 20; TEMP 36.1; O2SAT 96
[2024-07-24 07:01] VITALS: PULSE 81; RESP 20; O2SAT 98
[2024-07-24] MEDS: ESOMEPRAZOLE 40 MG GT (09:00)
[2024-07-24] MEDS: SODIUM CHLORIDE TAB 1,000 MG TABLET.SOL 1000 MG GT ×2 (09:01→21:26)
[2024-07-24] MEDS: MULTIVIT-MIN/IRON FUM/FOLIC AC 1 EACH TABLET GT (09:01)
[2024-07-24] MEDS: SOD PHOS DI, MONO/K PHOS MONO 250 MG TABLET GT (09:01)
[2024-07-24 21:19] VITALS: PULSE 80; RESP 18; O2SAT 95
[2024-07-24] MEDS: CARBAMIDE PEROXIDE OTIC SOL 15 ML BTL 5 DROP BOTH EARS (21:23)
[2024-07-24 21:24] VITALS: BP 157/66; PULSE 81
[2024-07-24] MEDS: LOSARTAN 100 MG TABLET GT (21:24)
[2024-07-24] MEDS: SENNOSIDES 8.6 MG TABLET 17.2 MG GT (21:26)
[2024-07-24] MEDS: ACETAMINOPHEN 325 MG TABLET 650 MG GT (21:26)
[2024-07-24] MEDS: MAGNESIUM HYDROXIDE 30 ML ORAL SUSP ML GT (22:02)
[2024-07-25] VITALS (7 sets, daily range): BP systolic 122–150; BP diastolic 80–94; PULSE 74–110; RESP 16–23; TEMP 36.3–36.6; O2SAT 95–99
[2024-07-25] MEDS: SODIUM CHLORIDE TAB 1,000 MG TABLET.SOL 1000 MG GT ×2 (09:18→20:54)
[2024-07-25] MEDS: MULTIVIT-MIN/IRON FUM/FOLIC AC 1 EACH TABLET GT (09:18)
[2024-07-25] MEDS: ESOMEPRAZOLE 40 MG GT (09:18)
[2024-07-25] MEDS: SOD PHOS DI, MONO/K PHOS MONO 250 MG TABLET GT (09:18)
[2024-07-25] MEDS: ACETAMINOPHEN 325 MG TABLET 650 MG GT (17:12)
--- NOTE | 2024-07-25 17:22 | PC.NURSE ---
Seen by Dr Gonsalez, no new orders made.
--- NOTE | 2024-07-25 20:51 | PD.SAPROG ---
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 (2) Epilepsy, unspecified, not intractable, without status epilepticus: Status: Chronic (3) Essential (primary) hypertension: Status: Chronic (4) Tracheostomy status: Status: Chronic (5) Gastrostomy status: Status: Chronic (6) Chronic respiratory failure, unspecified whether with hypoxia or hypercapnia: Status: Chronic (7) Chronic hyponatremia: Status: Chronic SUBJECTIVE Fever:: none GI:: none Shortness of Breath:: none GI:: no complaints Pain:: none OBJECTIVE Most recent vital signs: Last Vital Signs Temp 97.9 F 07/25/24 18:00 Pulse 110 H 07/25/24 18:00 Resp 22 H 07/25/24 18:00 BP 131/87 H 07/25/24 18:00 Pulse Ox 95 07/25/24 18:00 O2 Del Method Blow-by 07/25/24 18:00 O2 Flow Rate 8 07/25/24 06:00 FiO2 30 07/25/24 06:00 Neurological:: alert Speech:: nods head, mouths words (sometimes) and appropriate Answers questions:: sometimes Respiratory:: shallow breathing Cardiovascular: RRR Abdomen: soft and nontender Extremities:: deformities Decubitus:: none Tracheostomy:: to blow by Feeding per:: G tube Complaints:: none ASSESSMENT & PLAN Assessment: Pt fully dependent for retirement care. No pain issues, and remains comfortable. Ice chips for some oral gratification tried with success without any cough or aspiration and continued.Remains fully dependent for care. interacts some and mostly happy. Tendency for Hypo-natremia on labs being monitored and addressed. No clinical change. Electrolytes improved. monitored regularly. Pt remains fully dependent for care. No discomfort / pain. VSS. No change Plan: All treatment reviewed and continued.
[2024-07-25] MEDS: LOSARTAN 100 MG TABLET GT (20:53)
[2024-07-25] MEDS: SENNOSIDES 8.6 MG TABLET 17.2 MG GT (20:54)
[2024-07-26] VITALS: BP 116/72; PULSE 90; RESP 20; TEMP 36.5
[2024-07-26 06:40] VITALS: PULSE 83; RESP 18; RESP 19; O2SAT 98
[2024-07-26] MEDS: ESOMEPRAZOLE 40 MG GT (08:32)
[2024-07-26] MEDS: SOD PHOS DI, MONO/K PHOS MONO 250 MG TABLET GT (08:32)
[2024-07-26] MEDS: SODIUM CHLORIDE TAB 1,000 MG TABLET.SOL 1000 MG GT ×2 (08:32→21:10)
[2024-07-26] MEDS: MULTIVIT-MIN/IRON FUM/FOLIC AC 1 EACH TABLET GT (08:32)
[2024-07-26 20:30] VITALS: PULSE 75; RESP 20; O2SAT 97
[2024-07-26 21:06] VITALS: BP 162/84; PULSE 81
[2024-07-26] MEDS: LOSARTAN 100 MG TABLET GT (21:06)
[2024-07-26] MEDS: SENNOSIDES 8.6 MG TABLET 17.2 MG GT (21:10)
[2024-07-26 23:50] VITALS: BP 123/88; PULSE 75; RESP 20; TEMP 36.1
[2024-07-27 05:42] VITALS: BP 154/90; PULSE 86; RESP 20; TEMP 36; O2SAT 98
[2024-07-27 06:52] VITALS: PULSE 102; RESP 19; O2SAT 95
[2024-07-27] MEDS: ACETAMINOPHEN 325 MG TABLET 650 MG GT (07:50)
[2024-07-27] MEDS: ESOMEPRAZOLE 40 MG GT (08:04)
[2024-07-27] MEDS: SOD PHOS DI, MONO/K PHOS MONO 250 MG TABLET GT (08:04)
[2024-07-27] MEDS: SODIUM CHLORIDE TAB 1,000 MG TABLET.SOL 1000 MG GT ×2 (08:04→20:27)
[2024-07-27] MEDS: MULTIVIT-MIN/IRON FUM/FOLIC AC 1 EACH TABLET GT (08:04)
[2024-07-27 10:48] VITALS: BP 156/77; PULSE 80; RESP 20; TEMP 36.2
[2024-07-27 16:46] VITALS: BP 136/82; PULSE 73; RESP 19; TEMP 36.1; O2SAT 97
[2024-07-27 19:40] VITALS: PULSE 84; RESP 20; O2SAT 98
[2024-07-27 20:26] VITALS: BP 112/78; PULSE 67
[2024-07-27] MEDS: LOSARTAN 100 MG TABLET GT (20:26)
[2024-07-27] MEDS: SENNOSIDES 8.6 MG TABLET 17.2 MG GT (20:26)
[2024-07-28] VITALS: BP 126/81; PULSE 81; RESP 20; TEMP 36.3
[2024-07-28 06:00] VITALS: BP 137/83; PULSE 80; RESP 20; TEMP 36.2; O2SAT 95
[2024-07-28 07:40] VITALS: PULSE 80; RESP 18; O2SAT 95
[2024-07-28 09:00] VITALS: PULSE 80; RESP 18; O2SAT 95
[2024-07-28] MEDS: ESOMEPRAZOLE 40 MG GT (09:15)
[2024-07-28] MEDS: SOD PHOS DI, MONO/K PHOS MONO 250 MG TABLET GT (09:17)
[2024-07-28] MEDS: MULTIVIT-MIN/IRON FUM/FOLIC AC 1 EACH TABLET GT (09:17)
[2024-07-28] MEDS: SODIUM CHLORIDE TAB 1,000 MG TABLET.SOL 1000 MG GT ×2 (09:17→20:00)
[2024-07-28 19:10] VITALS: PULSE 78; RESP 20; O2SAT 97
[2024-07-28 20:00] VITALS: BP 145/80; PULSE 85
[2024-07-28] MEDS: SENNOSIDES 8.6 MG TABLET 17.2 MG GT (20:00)
[2024-07-28] MEDS: LOSARTAN 100 MG TABLET GT (20:00)
[2024-07-29] VITALS: BP 129/88; PULSE 78; RESP 22; TEMP 36
[2024-07-29 06:00] VITALS: PULSE 84; RESP 20; O2SAT 98
[2024-07-29] MEDS: MULTIVIT-MIN/IRON FUM/FOLIC AC 1 EACH TABLET GT (09:07)
[2024-07-29] MEDS: ESOMEPRAZOLE 40 MG GT (09:07)
[2024-07-29] MEDS: SOD PHOS DI, MONO/K PHOS MONO 250 MG TABLET GT (09:07)
[2024-07-29] MEDS: SODIUM CHLORIDE TAB 1,000 MG TABLET.SOL 1000 MG GT ×2 (09:07→20:53)
[2024-07-29 12:00] VITALS: BP 132/88; PULSE 71; RESP 17; TEMP 36.1
[2024-07-29 16:43] VITALS: BP 122/70; PULSE 84; RESP 17; TEMP 36.2
[2024-07-29 19:00] VITALS: PULSE 71; RESP 18; O2SAT 98
--- NOTE | 2024-07-29 20:10 | PD.SAPROG ---
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 (2) Epilepsy, unspecified, not intractable, without status epilepticus: Status: Chronic (3) Essential (primary) hypertension: Status: Chronic (4) Tracheostomy status: Status: Chronic (5) Gastrostomy status: Status: Chronic (6) Chronic respiratory failure, unspecified whether with hypoxia or hypercapnia: Status: Chronic (7) Chronic hyponatremia: Status: Chronic SUBJECTIVE Fever:: none GI:: none Shortness of Breath:: none GI:: no complaints Pain:: none OBJECTIVE Most recent vital signs: Last Vital Signs Temp 97.1 F 07/29/24 16:43 Pulse 84 07/29/24 16:43 Resp 17 07/29/24 16:43 BP 122/70 07/29/24 16:43 Pulse Ox 98 07/29/24 06:00 O2 Del Method Blow-by 07/28/24 06:00 O2 Flow Rate 8 07/29/24 06:00 FiO2 30 07/29/24 06:00 Neurological:: alert Speech:: nods head, mouths words (sometimes) and appropriate Answers questions:: sometimes Respiratory:: shallow breathing Cardiovascular: RRR Abdomen: soft and nontender Extremities:: deformities Decubitus:: none Tracheostomy:: to blow by Feeding per:: G tube Complaints:: none ASSESSMENT & PLAN Assessment: 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 No pain issues, and remains comfortable. Ice chips for some oral gratification tried with success without any cough or aspiration and continued.Remains fully dependent for care. interacts some and mostly happy. Tendency for Hypo-natremia on labs being monitored and addressed. No clinical change. Electrolytes improved. monitored regularly. Pt remains fully dependent for care. No discomfort / pain. VSS. Plan: All treatment reviewed and continued.
[2024-07-29 20:53] VITALS: BP 105/70; PULSE 85
[2024-07-29] MEDS: SENNOSIDES 8.6 MG TABLET 17.2 MG GT (20:53)
[2024-07-29] MEDS: ACETAMINOPHEN 325 MG TABLET 650 MG GT (20:54)
[2024-07-30] VITALS (7 sets, daily range): BP systolic 104–156; BP diastolic 68–85; PULSE 58–82; RESP 18–20; TEMP 36.1–36.4; O2SAT 97–99
[2024-07-30] MEDS: SODIUM CHLORIDE TAB 1,000 MG TABLET.SOL 1000 MG GT ×2 (09:48→20:47)
[2024-07-30] MEDS: SOD PHOS DI, MONO/K PHOS MONO 250 MG TABLET GT (09:48)
[2024-07-30] MEDS: MULTIVIT-MIN/IRON FUM/FOLIC AC 1 EACH TABLET GT (09:48)
[2024-07-30] MEDS: ESOMEPRAZOLE 40 MG GT (09:48)
[2024-07-30] MEDS: LOSARTAN 100 MG TABLET GT (20:46)
[2024-07-30] MEDS: SENNOSIDES 8.6 MG TABLET 17.2 MG GT (20:46)
[2024-07-30] MEDS: ACETAMINOPHEN 325 MG TABLET 650 MG GT (20:47)
[2024-07-31] VITALS (7 sets, daily range): BP systolic 123–149; BP diastolic 77–95; PULSE 65–95; RESP 18–22; TEMP 36.1–36.8; O2SAT 98
[2024-07-31] MEDS: ESOMEPRAZOLE 40 MG GT (08:19)
[2024-07-31] MEDS: MULTIVIT-MIN/IRON FUM/FOLIC AC 1 EACH TABLET GT (08:19)
[2024-07-31] MEDS: SOD PHOS DI, MONO/K PHOS MONO 250 MG TABLET GT (08:19)
[2024-07-31] MEDS: SODIUM CHLORIDE TAB 1,000 MG TABLET.SOL 1000 MG GT ×2 (08:20→20:50)
[2024-07-31] MEDS: LOSARTAN 100 MG TABLET GT (20:50)
[2024-07-31] MEDS: SENNOSIDES 8.6 MG TABLET 17.2 MG GT (20:50)
[2024-08-01] VITALS: BP 120/82; PULSE 89; RESP 22; TEMP 36.6
[2024-08-01] MEDS: ACETAMINOPHEN 325 MG TABLET 650 MG GT (04:52)
[2024-08-01 06:40] VITALS: PULSE 78; RESP 18; O2SAT 98
[2024-08-01] MEDS: SODIUM CHLORIDE TAB 1,000 MG TABLET.SOL 1000 MG GT ×2 (08:03→20:38)
[2024-08-01] MEDS: MULTIVIT-MIN/IRON FUM/FOLIC AC 1 EACH TABLET GT (08:03)
[2024-08-01] MEDS: ESOMEPRAZOLE 40 MG GT (08:03)
[2024-08-01] MEDS: SOD PHOS DI, MONO/K PHOS MONO 250 MG TABLET GT (08:03)
[2024-08-01 11:46] VITALS: BP 150/88; PULSE 72; RESP 20; TEMP 36.1
--- NOTE | 2024-08-01 16:55 | PD.SAPROG ---
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 (2) Epilepsy, unspecified, not intractable, without status epilepticus: Status: Chronic (3) Essential (primary) hypertension: Status: Chronic (4) Tracheostomy status: Status: Chronic (5) Gastrostomy status: Status: Chronic (6) Chronic respiratory failure, unspecified whether with hypoxia or hypercapnia: Status: Chronic (7) Chronic hyponatremia: Status: Chronic SUBJECTIVE Fever:: none GI:: none Shortness of Breath:: none GI:: no complaints Pain:: none OBJECTIVE Most recent vital signs: Last Vital Signs Temp 96.9 F 08/01/24 11:46 Pulse 72 08/01/24 11:46 Resp 20 08/01/24 11:46 BP 150/88 H 08/01/24 11:46 Pulse Ox 98 08/01/24 06:40 O2 Del Method Blow-by 07/31/24 16:50 O2 Flow Rate 8 08/01/24 06:40 FiO2 30 08/01/24 06:40 Neurological:: alert Speech:: nods head, mouths words (sometimes) and appropriate Answers questions:: sometimes Respiratory:: shallow breathing Cardiovascular: RRR Abdomen: soft and nontender Extremities:: deformities Decubitus:: none Tracheostomy:: to blow by Feeding per:: G tube Complaints:: none ASSESSMENT & PLAN Assessment: 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 No pain issues, and remains comfortable. Ice chips for some oral gratification tried with success without any cough or aspiration and continued.Remains fully dependent for care. interacts some and mostly happy. Tendency for Hypo-natremia on labs being monitored and addressed. No clinical change. Electrolytes improved. monitored regularly. Pt remains fully dependent for care. No discomfort / pain. VSS. Plan: All treatment reviewed and continued.
[2024-08-01 17:21] VITALS: BP 117/77; PULSE 60; RESP 18; TEMP 36; O2SAT 98
[2024-08-01 19:16] VITALS: PULSE 58; RESP 16; RESP 98; O2SAT 98
[2024-08-01 20:38] VITALS: BP 147/84; PULSE 79
[2024-08-01] MEDS: LOSARTAN 100 MG TABLET GT (20:38)
[2024-08-01] MEDS: SENNOSIDES 8.6 MG TABLET 17.2 MG GT (20:38)
[2024-08-02] VITALS (7 sets, daily range): BP systolic 128–161; BP diastolic 78–86; PULSE 63–77; RESP 16–22; TEMP 36.1–36.2; O2SAT 96–99
[2024-08-02] MEDS: ESOMEPRAZOLE 40 MG GT (08:03)
[2024-08-02] MEDS: MULTIVIT-MIN/IRON FUM/FOLIC AC 1 EACH TABLET GT (08:03)
[2024-08-02] MEDS: SOD PHOS DI, MONO/K PHOS MONO 250 MG TABLET GT (08:03)
[2024-08-02] MEDS: SODIUM CHLORIDE TAB 1,000 MG TABLET.SOL 1000 MG GT ×2 (08:03→20:42)
[2024-08-02] MEDS: LOSARTAN 100 MG TABLET GT (20:42)
[2024-08-02] MEDS: SENNOSIDES 8.6 MG TABLET 17.2 MG GT (20:42)
[2024-08-03] VITALS: BP 139/82; PULSE 68; RESP 16; TEMP 36.2
[2024-08-03 06:00] VITALS: BP 167/98; PULSE 79; RESP 20; TEMP 36.4; O2SAT 97
[2024-08-03 06:07] VITALS: PULSE 73; RESP 18; O2SAT 98
[2024-08-03] MEDS: ESOMEPRAZOLE 40 MG GT (09:05)
[2024-08-03] MEDS: MULTIVIT-MIN/IRON FUM/FOLIC AC 1 EACH TABLET GT (09:06)
[2024-08-03] MEDS: SOD PHOS DI, MONO/K PHOS MONO 250 MG TABLET GT (09:06)
[2024-08-03] MEDS: SODIUM CHLORIDE TAB 1,000 MG TABLET.SOL 1000 MG GT ×2 (09:06→20:47)
[2024-08-03 11:11] VITALS: BP 124/79; PULSE 77; RESP 19; TEMP 36.3
[2024-08-03 18:55] VITALS: PULSE 88; RESP 18; O2SAT 98
[2024-08-03 20:45] VITALS: BP 129/80; PULSE 97
[2024-08-03] MEDS: LOSARTAN 100 MG TABLET GT (20:45)
[2024-08-03] MEDS: SENNOSIDES 8.6 MG TABLET 17.2 MG GT (20:46)
[2024-08-03] MEDS: ACETAMINOPHEN 325 MG TABLET 650 MG GT (20:47)
[2024-08-04] VITALS (7 sets, daily range): BP systolic 109–141; BP diastolic 72–91; PULSE 77–88; RESP 17–20; TEMP 36.3–36.6; O2SAT 96–98
[2024-08-04] MEDS: ACETAMINOPHEN 325 MG TABLET 650 MG GT (07:38)
[2024-08-04] MEDS: MULTIVIT-MIN/IRON FUM/FOLIC AC 1 EACH TABLET GT (08:00)
[2024-08-04] MEDS: ESOMEPRAZOLE 40 MG GT (08:00)
[2024-08-04] MEDS: SOD PHOS DI, MONO/K PHOS MONO 250 MG TABLET GT (08:00)
[2024-08-04] MEDS: SODIUM CHLORIDE TAB 1,000 MG TABLET.SOL 1000 MG GT ×2 (08:00→20:39)
[2024-08-04] MEDS: LOSARTAN 100 MG TABLET GT (20:37)
[2024-08-04] MEDS: SENNOSIDES 8.6 MG TABLET 17.2 MG GT (20:39)
[2024-08-05] VITALS: BP 118/73; PULSE 82; RESP 18; TEMP 35.9
[2024-08-05 05:20] VITALS: BP 132/77; PULSE 77; RESP 18; TEMP 36.1; O2SAT 97
[2024-08-05 06:55] VITALS: PULSE 85; RESP 19; O2SAT 99
[2024-08-05] MEDS: ESOMEPRAZOLE 40 MG GT (09:07)
[2024-08-05] MEDS: MULTIVIT-MIN/IRON FUM/FOLIC AC 1 EACH TABLET GT (09:07)
[2024-08-05] MEDS: SOD PHOS DI, MONO/K PHOS MONO 250 MG TABLET GT (09:07)
[2024-08-05] MEDS: SODIUM CHLORIDE TAB 1,000 MG TABLET.SOL 1000 MG GT ×2 (09:08→21:08)
[2024-08-05 12:00] VITALS: BP 147/84; PULSE 73; RESP 19; TEMP 36.2
--- NOTE | 2024-08-05 13:05 | ESPR_ITS ---
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 (2) Epilepsy, unspecified, not intractable, without status epilepticus: Status: Chronic (3) Essential (primary) hypertension: Status: Chronic (4) Tracheostomy status: Status: Chronic (5) Gastrostomy status: Status: Chronic (6) Chronic respiratory failure, unspecified whether with hypoxia or hypercapnia: Status: Chronic (7) Chronic hyponatremia: Status: Chronic SUBJECTIVE Fever:: none GI:: none Shortness of Breath:: none GI:: no complaints Pain:: none OBJECTIVE Most recent vital signs: Last Vital Signs Temp 97.2 F 08/08/24 06:00 Pulse 64 08/08/24 06:00 Resp 22 H 08/08/24 06:00 BP 136/80 H 08/08/24 06:00 Pulse Ox 98 08/08/24 06:00 O2 Del Method Blow-by 08/08/24 06:00 O2 Flow Rate 6 08/08/24 00:10 FiO2 28 08/08/24 00:10 Neurological:: alert Speech:: nods head, mouths words (sometimes) and appropriate Answers questions:: sometimes Respiratory:: shallow breathing Cardiovascular: RRR Abdomen: soft and nontender Extremities:: deformities Decubitus:: none Tracheostomy:: to blow by Feeding per:: G tube Complaints:: none ASSESSMENT & PLAN Assessment: 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 No pain issues, and remains comfortable. Ice chips for some oral gratification tried with success without any cough or aspiration and continued.Remains fully dependent for care. interacts some and mostly happy. Tendency for Hypo-natremia on labs being monitored and addressed. No clinical change. Electrolytes improved. monitored regularly. Pt remains fully dependent for care. No discomfort / pain. VSS. Plan: All treatment reviewed and continued.
[2024-08-05 17:44] VITALS: BP 151/82; PULSE 76; RESP 19; TEMP 36.6; O2SAT 97
[2024-08-05 21:07] VITALS: BP 144/91; PULSE 71
[2024-08-05] MEDS: LOSARTAN 100 MG TABLET GT (21:07)
[2024-08-05] MEDS: SENNOSIDES 8.6 MG TABLET 17.2 MG GT (21:08)
[2024-08-06] VITALS: BP 124/81; PULSE 70; RESP 20; TEMP 36.5
[2024-08-06 05:31] VITALS: BP 152/92; PULSE 68; RESP 20; TEMP 36.5; O2SAT 97
[2024-08-06 07:55] VITALS: PULSE 65; RESP 18; O2SAT 98
[2024-08-06] MEDS: MULTIVIT-MIN/IRON FUM/FOLIC AC 1 EACH TABLET GT (08:00)
[2024-08-06] MEDS: SODIUM CHLORIDE TAB 1,000 MG TABLET.SOL 1000 MG GT ×2 (08:00→20:40)
[2024-08-06] MEDS: SOD PHOS DI, MONO/K PHOS MONO 250 MG TABLET GT (08:00)
[2024-08-06] MEDS: ESOMEPRAZOLE 40 MG GT (08:00)
--- NOTE | 2024-08-06 11:24 | PC.SS ---
Room visit: Resident is laying in bed with head of the bed elevated with call light properly placed with no signs of distress. Resident has no changes in care or condition, remains on blow by with trach in place and GT for medication and nutrition. Resident is unable to make needs known, her daughter Homa is her decision maker as she is unable to make needs known. Resident will remain in current care and will continue to have all subacute care needs met by staff.
[2024-08-06 12:00] VITALS: BP 127/79; PULSE 70; RESP 19; TEMP 36.4
[2024-08-06 17:33] VITALS: BP 115/77; PULSE 60; RESP 20; TEMP 36.6; O2SAT 96
[2024-08-06 20:37] VITALS: BP 94/68; PULSE 60
[2024-08-06] MEDS: SENNOSIDES 8.6 MG TABLET 17.2 MG GT (20:37)
[2024-08-07] VITALS: BP 131/83; PULSE 67; RESP 20; TEMP 36.4
[2024-08-07 06:00] VITALS: BP 135/81; PULSE 64; RESP 20; TEMP 36.1; O2SAT 97
[2024-08-07] MEDS: SODIUM CHLORIDE TAB 1,000 MG TABLET.SOL 1000 MG GT ×2 (09:19→20:33)
[2024-08-07] MEDS: ESOMEPRAZOLE 40 MG GT (09:19)
[2024-08-07] MEDS: MULTIVIT-MIN/IRON FUM/FOLIC AC 1 EACH TABLET GT (09:19)
[2024-08-07] MEDS: SOD PHOS DI, MONO/K PHOS MONO 250 MG TABLET GT (09:19)
[2024-08-07 10:42] VITALS: PULSE 62; RESP 18; O2SAT 97; O2SAT 99
[2024-08-07 12:00] VITALS: BP 131/79; PULSE 61; RESP 21; TEMP 36.3
[2024-08-07 17:38] VITALS: BP 129/81; PULSE 67; RESP 19; TEMP 36.4
[2024-08-07 20:33] VITALS: BP 103/73; PULSE 65
[2024-08-07] MEDS: SENNOSIDES 8.6 MG TABLET 17.2 MG GT (20:33)
[2024-08-08] VITALS (8 sets, daily range): BP systolic 112–149; BP diastolic 80–93; PULSE 64–90; RESP 16–22; TEMP 36.2–36.4; O2SAT 93–98
[2024-08-08] MEDS: ESOMEPRAZOLE 40 MG GT (09:08)
[2024-08-08] MEDS: SOD PHOS DI, MONO/K PHOS MONO 250 MG TABLET GT (09:08)
[2024-08-08] MEDS: SODIUM CHLORIDE TAB 1,000 MG TABLET.SOL 1000 MG GT ×2 (09:09→21:09)
[2024-08-08] MEDS: MULTIVIT-MIN/IRON FUM/FOLIC AC 1 EACH TABLET GT (09:09)
--- NOTE | 2024-08-08 09:35 | PC.NURSE ---
Follow up call made to [facility] spoke with [facility] to follow up on the tobramycin ointment. As per Boubacar, he made a follow up with medical and said Medical didn't received the form that was filled for the prior authorization so [facility] did refaxed it to them again last Sunday. Asked [facility]ar if he can make a follow up call to Medical and asked them about it. Boubacar called back and said that medical didn't received the form that they refaxed last Sunday so he'll be refaxing it to them again and will give them a call again after an hour after refaxing it to them.
[2024-08-08] MEDS: DEX/HYPRO/GLY ARTIFICAL TEARS 225 DROP/15 ML BTL OP (21:09)
[2024-08-08] MEDS: SENNOSIDES 8.6 MG TABLET 17.2 MG GT (21:09)
[2024-08-08] MEDS: LOSARTAN 100 MG TABLET GT (21:09)
[2024-08-09] VITALS (7 sets, daily range): BP systolic 125–146; BP diastolic 80–94; PULSE 78–103; RESP 17–22; TEMP 36.3–36.4; O2SAT 93–97
[2024-08-09] MEDS: SODIUM CHLORIDE TAB 1,000 MG TABLET.SOL 1000 MG GT ×2 (08:09→20:14)
[2024-08-09] MEDS: SOD PHOS DI, MONO/K PHOS MONO 250 MG TABLET GT (08:09)
[2024-08-09] MEDS: DEX/HYPRO/GLY ARTIFICAL TEARS 225 DROP/15 ML BTL OP ×2 (08:09→20:13)
[2024-08-09] MEDS: ESOMEPRAZOLE 40 MG GT (08:09)
[2024-08-09] MEDS: MULTIVIT-MIN/IRON FUM/FOLIC AC 1 EACH TABLET GT (08:09)
[2024-08-09] MEDS: ACETAMINOPHEN 325 MG TABLET 650 MG GT (17:00)
[2024-08-09] MEDS: LOSARTAN 100 MG TABLET GT (20:14)
[2024-08-09] MEDS: SENNOSIDES 8.6 MG TABLET 17.2 MG GT (20:14)
--- NOTE | 2024-08-09 20:52 | ESPR_ITS ---
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 (2) Epilepsy, unspecified, not intractable, without status epilepticus: Status: Chronic (3) Essential (primary) hypertension: Status: Chronic (4) Tracheostomy status: Status: Chronic (5) Gastrostomy status: Status: Chronic (6) Chronic respiratory failure, unspecified whether with hypoxia or hypercapnia: Status: Chronic (7) Chronic hyponatremia: Status: Chronic SUBJECTIVE Fever:: none GI:: none Shortness of Breath:: none GI:: no complaints Pain:: none OBJECTIVE Most recent vital signs: Last Vital Signs Temp 97.4 F 08/09/24 16:53 Pulse 84 08/09/24 20:14 Resp 19 08/09/24 16:53 BP 134/80 H 08/09/24 20:14 Pulse Ox 93 L 08/09/24 06:30 O2 Del Method Blow-by 08/09/24 06:00 O2 Flow Rate 6 08/09/24 06:30 FiO2 28 08/09/24 06:30 Neurological:: alert Speech:: nods head, mouths words (sometimes) and appropriate Answers questions:: sometimes Respiratory:: shallow breathing Cardiovascular: RRR Abdomen: soft and nontender Extremities:: deformities Decubitus:: none Tracheostomy:: to blow by Feeding per:: G tube Complaints:: none ASSESSMENT & PLAN Assessment: 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 No pain issues, and remains comfortable. Ice chips for some oral gratification tried with success without any cough or aspiration and continued.Remains fully dependent for care. interacts some and mostly happy. Tendency for Hypo-natremia on labs being monitored and addressed. No clinical change. Electrolytes improved. monitored regularly. Pt remains fully dependent for care. No discomfort / pain. VSS. Plan: All treatment reviewed and continued.
[2024-08-10] VITALS: BP 114/73; PULSE 97; RESP 18; TEMP 36.6
[2024-08-10 05:33] VITALS: BP 157/92; PULSE 83; RESP 20; TEMP 36.5; O2SAT 96
[2024-08-10 06:23] VITALS: PULSE 81; RESP 17; O2SAT 96
[2024-08-10] MEDS: DEX/HYPRO/GLY ARTIFICAL TEARS 225 DROP/15 ML BTL OP ×2 (08:03→21:06)
[2024-08-10] MEDS: SODIUM CHLORIDE TAB 1,000 MG TABLET.SOL 1000 MG GT ×2 (08:04→21:06)
[2024-08-10] MEDS: ESOMEPRAZOLE 40 MG GT (08:04)
[2024-08-10] MEDS: MULTIVIT-MIN/IRON FUM/FOLIC AC 1 EACH TABLET GT (08:04)
[2024-08-10] MEDS: SOD PHOS DI, MONO/K PHOS MONO 250 MG TABLET GT (08:04)
[2024-08-10 11:22] VITALS: BP 129/81; PULSE 82; RESP 21; TEMP 36.5
[2024-08-10 16:46] VITALS: BP 130/80; PULSE 82; RESP 18; TEMP 36.1
[2024-08-10] MEDS: SENNOSIDES 8.6 MG TABLET 17.2 MG GT (21:05)
[2024-08-10 21:06] VITALS: BP 152/84; PULSE 101
[2024-08-10] MEDS: LOSARTAN 100 MG TABLET GT (21:06)
[2024-08-11] VITALS (7 sets, daily range): BP systolic 133–151; BP diastolic 78–89; PULSE 65–89; RESP 17–22; TEMP 36.1–36.3; O2SAT 94–98
[2024-08-11] MEDS: DEX/HYPRO/GLY ARTIFICAL TEARS 225 DROP/15 ML BTL OP (09:33)
[2024-08-11] MEDS: SOD PHOS DI, MONO/K PHOS MONO 250 MG TABLET GT (09:34)
[2024-08-11] MEDS: ESOMEPRAZOLE 40 MG GT (09:34)
[2024-08-11] MEDS: SODIUM CHLORIDE TAB 1,000 MG TABLET.SOL 1000 MG GT ×2 (09:35→20:45)
[2024-08-11] MEDS: MULTIVIT-MIN/IRON FUM/FOLIC AC 1 EACH TABLET GT (09:35)
[2024-08-11] MEDS: LOSARTAN 100 MG TABLET GT (20:45)
[2024-08-11] MEDS: SENNOSIDES 8.6 MG TABLET 17.2 MG GT (20:45)
[2024-08-12 05:30] VITALS: BP 153/83; PULSE 75; RESP 20; TEMP 36.2; O2SAT 98
[2024-08-12 06:55] VITALS: PULSE 71; RESP 18; O2SAT 92
[2024-08-12] MEDS: SOD PHOS DI, MONO/K PHOS MONO 250 MG TABLET GT (09:15)
[2024-08-12] MEDS: SODIUM CHLORIDE TAB 1,000 MG TABLET.SOL 1000 MG GT ×2 (09:15→21:06)
[2024-08-12] MEDS: MULTIVIT-MIN/IRON FUM/FOLIC AC 1 EACH TABLET GT (09:15)
[2024-08-12] MEDS: ESOMEPRAZOLE 40 MG GT (09:15)
[2024-08-12 12:00] VITALS: BP 168/82; PULSE 67; RESP 20; TEMP 36
[2024-08-12 17:43] VITALS: BP 143/81; PULSE 66; RESP 19; TEMP 35.9; O2SAT 96
--- NOTE | 2024-08-12 19:10 | PC.NURSE ---
INCREASED REDNESS TO EYES NOTED [facility]. LEFT EYE. NOTIFIED MD. NEW ORDER GIVEN. cARRIED OUT ORDER.
[2024-08-12 19:42] VITALS: PULSE 64; RESP 18; O2SAT 93
[2024-08-12] MEDS: SENNOSIDES 8.6 MG TABLET 17.2 MG GT (21:04)
[2024-08-12] MEDS: NON-FORMULARY *SEE COMMENTS* 1 EA EA BOTH EYES (21:05)
[2024-08-12 21:06] VITALS: BP 124/85; PULSE 67
[2024-08-12] MEDS: LOSARTAN 100 MG TABLET GT (21:06)
[2024-08-13] VITALS (7 sets, daily range): BP systolic 121–144; BP diastolic 79–87; PULSE 60–87; RESP 16–22; TEMP 36.3–36.6; O2SAT 93–98
[2024-08-13 06:17] LABS: Albumin, Serum 4.3 gm/dL (3.4-4.8); Anion Gap 3 (7-16); BUN/Creatinine Ratio 48 Ratio (12-20); Blood Urea Nitrogen 19 mg/dL (9-23); Calcium 10.0 mg/dL (8.3-10.6); Calcium (Corrected) 10.0 mg/dL (8.5-10.1); Carbon Dioxide 29.8 mMol/L (20.0-31.0); Chloride 100 mMol/L (98-107); Creatinine (Component) 0.4 mg/dL (0.6-1.3); Estimated Creatinine Clearance 99.5 mL/min (>60); Glucose 112 mg/dL (74-106); Osmolality,Calculated 269 (275-295); Phosphorous 4.7 mg/dL (2.4-5.1); Potassium 4.4 mMol/L (3.4-5.1); Sodium 133 mMol/L (136-145); eGFR > 60 See Note
[2024-08-13] MEDS: ESOMEPRAZOLE 40 MG GT (09:15)
[2024-08-13] MEDS: SOD PHOS DI, MONO/K PHOS MONO 250 MG TABLET GT (09:15)
[2024-08-13] MEDS: MULTIVIT-MIN/IRON FUM/FOLIC AC 1 EACH TABLET GT (09:15)
[2024-08-13] MEDS: SODIUM CHLORIDE TAB 1,000 MG TABLET.SOL 1000 MG GT ×2 (09:16→20:28)
[2024-08-13] MEDS: NON-FORMULARY *SEE COMMENTS* 1 EA EA BOTH EYES ×2 (09:16→20:28)
--- NOTE | 2024-08-13 13:05 | ESPR_ITS ---
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 (2) Epilepsy, unspecified, not intractable, without status epilepticus: Status: Chronic (3) Essential (primary) hypertension: Status: Chronic (4) Tracheostomy status: Status: Chronic (5) Gastrostomy status: Status: Chronic (6) Chronic respiratory failure, unspecified whether with hypoxia or hypercapnia: Status: Chronic (7) Chronic hyponatremia: Status: Chronic SUBJECTIVE Fever:: none GI:: none Shortness of Breath:: none GI:: no complaints Pain:: none OBJECTIVE Most recent vital signs: Last Vital Signs Temp 97.3 F 08/15/24 16:27 Pulse 71 08/15/24 21:07 Resp 23 H 08/15/24 16:27 BP 134/82 H 08/15/24 21:07 Pulse Ox 98 08/15/24 08:00 O2 Del Method Blow-by 08/15/24 06:00 O2 Flow Rate 6 08/15/24 08:00 FiO2 28 08/15/24 08:00 Neurological:: alert Speech:: nods head, mouths words (sometimes) and appropriate Answers questions:: sometimes Respiratory:: shallow breathing Cardiovascular: RRR Abdomen: soft and nontender Extremities:: deformities Decubitus:: none Tracheostomy:: to blow by Feeding per:: G tube Complaints:: none ASSESSMENT & PLAN Assessment: 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 No pain issues, and remains comfortable. Ice chips for some oral gratification tried with success without any cough or aspiration and continued.Remains fully dependent for care. interacts some and mostly happy. Tendency for Hypo-natremia on labs being monitored and addressed. No clinical change. Electrolytes improved. monitored regularly. Pt remains fully dependent for care. No discomfort / pain. VSS. Plan: All treatment reviewed and continued.
[2024-08-13] MEDS: LOSARTAN 100 MG TABLET GT (20:28)
[2024-08-13] MEDS: SENNOSIDES 8.6 MG TABLET 17.2 MG GT (20:28)
[2024-08-14 06:50] VITALS: PULSE 73; RESP 18; O2SAT 94
[2024-08-14] MEDS: MULTIVIT-MIN/IRON FUM/FOLIC AC 1 EACH TABLET GT (08:57)
[2024-08-14] MEDS: SODIUM CHLORIDE TAB 1,000 MG TABLET.SOL 1000 MG GT ×2 (08:57→21:02)
[2024-08-14] MEDS: SOD PHOS DI, MONO/K PHOS MONO 250 MG TABLET GT (08:57)
[2024-08-14] MEDS: NON-FORMULARY *SEE COMMENTS* 1 EA EA BOTH EYES ×2 (08:57→21:01)
[2024-08-14] MEDS: ESOMEPRAZOLE 40 MG GT (08:57)
[2024-08-14 09:00] VITALS: PULSE 65; RESP 18; O2SAT 96
[2024-08-14 12:00] VITALS: BP 139/83; PULSE 81; RESP 20; TEMP 36.2
[2024-08-14 18:00] VITALS: BP 136/76; PULSE 79; RESP 18; TEMP 36.1
[2024-08-14 18:45] VITALS: PULSE 64; RESP 16; O2SAT 96
[2024-08-14 20:59] VITALS: BP 115/77; PULSE 79
[2024-08-14] MEDS: LOSARTAN 100 MG TABLET GT (20:59)
[2024-08-14] MEDS: SENNOSIDES 8.6 MG TABLET 17.2 MG GT (21:02)
[2024-08-15] VITALS: BP 119/77; PULSE 72; RESP 23; TEMP 36
[2024-08-15 06:00] VITALS: BP 128/82; PULSE 75; RESP 20; TEMP 36.1; O2SAT 97
[2024-08-15 08:00] VITALS: PULSE 74; RESP 16; O2SAT 98
[2024-08-15] MEDS: SOD PHOS DI, MONO/K PHOS MONO 250 MG TABLET GT (08:00)
[2024-08-15] MEDS: ACETAMINOPHEN 325 MG TABLET 650 MG GT (08:00)
[2024-08-15] MEDS: NON-FORMULARY *SEE COMMENTS* 1 EA EA BOTH EYES ×2 (08:00→21:07)
[2024-08-15] MEDS: SODIUM CHLORIDE TAB 1,000 MG TABLET.SOL 1000 MG GT ×2 (08:00→21:08)
[2024-08-15] MEDS: ESOMEPRAZOLE 40 MG GT (08:00)
[2024-08-15] MEDS: MULTIVIT-MIN/IRON FUM/FOLIC AC 1 EACH TABLET GT (08:00)
[2024-08-15 12:00] VITALS: BP 129/74; PULSE 77; RESP 21; TEMP 36
--- NOTE | 2024-08-15 12:27 | PC.SS ---
Room visit: Resident is laying in bed with head of the bed elevated with call light properly placed with no signs of distress. Resident has no changes in care or condition, she remains on blow by with trach in place and GT for medication and nutrition. Resident unable to make needs known, her daughter Homa is her decision maker. Resident will remain in current care and will continue to have all subacute care needs met by staff. This SSD will continue to monitor for changes in mood and behavior.
[2024-08-15 16:27] VITALS: BP 130/78; PULSE 81; RESP 23; TEMP 36.3
[2024-08-15 21:07] VITALS: BP 134/82; PULSE 71
[2024-08-15] MEDS: LOSARTAN 100 MG TABLET GT (21:07)
[2024-08-15] MEDS: SENNOSIDES 8.6 MG TABLET 17.2 MG GT (21:08)
[2024-08-16] MEDS: MAGNESIUM HYDROXIDE 30 ML ORAL SUSP ML GT (03:10)
[2024-08-16] MEDS: SODIUM CHLORIDE TAB 1,000 MG TABLET.SOL 1000 MG GT ×2 (08:10→20:28)
[2024-08-16] MEDS: NON-FORMULARY *SEE COMMENTS* 1 EA EA BOTH EYES (08:10)
[2024-08-16] MEDS: ESOMEPRAZOLE 40 MG GT (08:10)
[2024-08-16] MEDS: MULTIVIT-MIN/IRON FUM/FOLIC AC 1 EACH TABLET GT (08:10)
[2024-08-16] MEDS: SOD PHOS DI, MONO/K PHOS MONO 250 MG TABLET GT (08:10)
[2024-08-16 08:43] VITALS: PULSE 68; RESP 16; O2SAT 97
[2024-08-16 11:03] VITALS: BP 150/94; PULSE 98; RESP 18; TEMP 36.2; O2SAT 96
[2024-08-16] MEDS: ACETAMINOPHEN 325 MG TABLET 650 MG GT (12:40)
[2024-08-16 17:09] VITALS: BP 144/87; PULSE 86; RESP 18; TEMP 36.1
[2024-08-16 19:50] VITALS: PULSE 66; RESP 16; O2SAT 97
[2024-08-16 20:27] VITALS: BP 135/81; PULSE 68
[2024-08-16] MEDS: LOSARTAN 100 MG TABLET GT (20:27)
[2024-08-16] MEDS: SENNOSIDES 8.6 MG TABLET 17.2 MG GT (20:28)
[2024-08-17] VITALS: BP 111/71; PULSE 65; RESP 18; TEMP 36.3
[2024-08-17 05:47] VITALS: BP 117/81; PULSE 98; RESP 18; TEMP 36.2; O2SAT 97
[2024-08-17 06:45] VITALS: PULSE 68; RESP 16; RESP 18; O2SAT 97
[2024-08-17] MEDS: SOD PHOS DI, MONO/K PHOS MONO 250 MG TABLET GT (08:08)
[2024-08-17] MEDS: MULTIVIT-MIN/IRON FUM/FOLIC AC 1 EACH TABLET GT (08:08)
[2024-08-17] MEDS: ESOMEPRAZOLE 40 MG GT (08:08)
[2024-08-17] MEDS: SODIUM CHLORIDE TAB 1,000 MG TABLET.SOL 1000 MG GT ×2 (08:08→20:20)
[2024-08-17] MEDS: NON-FORMULARY *SEE COMMENTS* 1 EA EA BOTH EYES ×2 (09:00→20:19)
--- NOTE | 2024-08-17 10:53 | ESPR_ITS ---
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 (2) Epilepsy, unspecified, not intractable, without status epilepticus: Status: Chronic (3) Essential (primary) hypertension: Status: Chronic (4) Tracheostomy status: Status: Chronic (5) Gastrostomy status: Status: Chronic (6) Chronic respiratory failure, unspecified whether with hypoxia or hypercapnia: Status: Chronic (7) Chronic hyponatremia: Status: Chronic SUBJECTIVE Fever:: none GI:: none Shortness of Breath:: none GI:: no complaints Pain:: none OBJECTIVE Most recent vital signs: Last Vital Signs Temp 97.2 F 08/17/24 05:47 Pulse 68 08/17/24 06:45 Resp 18 08/17/24 06:45 BP 117/81 08/17/24 05:47 Pulse Ox 97 08/17/24 06:45 O2 Del Method Blow-by 08/16/24 11:03 O2 Flow Rate 6 08/17/24 06:45 FiO2 28 08/17/24 06:45 Neurological:: alert Speech:: nods head, mouths words (sometimes) and appropriate Answers questions:: sometimes Respiratory:: shallow breathing Cardiovascular: RRR Abdomen: soft and nontender Extremities:: deformities Decubitus:: none Tracheostomy:: to blow by Feeding per:: G tube Complaints:: none ASSESSMENT & PLAN Assessment: 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 No pain issues, and remains comfortable. Ice chips for some oral gratification tried with success without any cough or aspiration and continued.Remains fully dependent for care. interacts some and mostly happy. Tendency for Hypo-natremia on labs being monitored and addressed. No clinical change. Electrolytes improved. monitored regularly. Pt remains fully dependent for care. No discomfort / pain. VSS. Plan: All treatment reviewed and continued.
[2024-08-17 11:11] VITALS: BP 130/82; PULSE 90; RESP 18; TEMP 36.1; O2SAT 97
[2024-08-17 17:06] VITALS: BP 130/87; PULSE 82; RESP 18; TEMP 36.3
[2024-08-17 20:19] VITALS: BP 138/81; PULSE 91
[2024-08-17] MEDS: SENNOSIDES 8.6 MG TABLET 17.2 MG GT (20:19)
[2024-08-17] MEDS: LOSARTAN 100 MG TABLET GT (20:19)
--- NOTE | 2024-08-17 20:30 | PC.NURSE ---
DR. MARY WAS NOTIFIED THAT EYE DROP OLOPATADINE WAS RECEIVED AND STARTED 08/17/24. ORDERED TO RE-EVAL ON 08/23/24.
[2024-08-18] VITALS (8 sets, daily range): BP systolic 121–136; BP diastolic 78–88; PULSE 65–92; RESP 16–19; TEMP 36.3–36.7; O2SAT 95–98
[2024-08-18] MEDS: SOD PHOS DI, MONO/K PHOS MONO 250 MG TABLET GT (08:35)
[2024-08-18] MEDS: ESOMEPRAZOLE 40 MG GT (08:35)
[2024-08-18] MEDS: MULTIVIT-MIN/IRON FUM/FOLIC AC 1 EACH TABLET GT (08:36)
[2024-08-18] MEDS: NON-FORMULARY *SEE COMMENTS* 1 EA EA BOTH EYES ×2 (08:37→20:36)
[2024-08-18] MEDS: SODIUM CHLORIDE TAB 1,000 MG TABLET.SOL 1000 MG GT ×2 (08:38→20:37)
[2024-08-18] MEDS: LOSARTAN 100 MG TABLET GT (20:36)
[2024-08-18] MEDS: SENNOSIDES 8.6 MG TABLET 17.2 MG GT (20:37)
[2024-08-19] VITALS: BP 92/66; PULSE 72; RESP 20; TEMP 36.4
[2024-08-19 07:02] VITALS: PULSE 69; RESP 16; O2SAT 99
[2024-08-19] MEDS: ESOMEPRAZOLE 40 MG GT (08:06)
[2024-08-19] MEDS: SOD PHOS DI, MONO/K PHOS MONO 250 MG TABLET GT (08:06)
[2024-08-19] MEDS: SODIUM CHLORIDE TAB 1,000 MG TABLET.SOL 1000 MG GT ×2 (08:07→21:13)
[2024-08-19] MEDS: NON-FORMULARY *SEE COMMENTS* 1 EA EA BOTH EYES ×2 (08:07→21:12)
[2024-08-19] MEDS: MULTIVIT-MIN/IRON FUM/FOLIC AC 1 EACH TABLET GT (08:07)
[2024-08-19 11:50] VITALS: BP 143/81; PULSE 66; RESP 22; TEMP 36.5
[2024-08-19 17:32] VITALS: BP 141/80; PULSE 76; RESP 20; TEMP 36.6; O2SAT 92
[2024-08-19 18:16] VITALS: PULSE 71; RESP 18; O2SAT 97
[2024-08-19 21:11] VITALS: BP 138/80; PULSE 76
[2024-08-19] MEDS: LOSARTAN 100 MG TABLET GT (21:11)
[2024-08-19] MEDS: SENNOSIDES 8.6 MG TABLET 17.2 MG GT (21:13)
[2024-08-20] VITALS (7 sets, daily range): BP systolic 128–145; BP diastolic 80–92; PULSE 59–89; RESP 16–22; TEMP 36.2–36.3; O2SAT 95–97
[2024-08-20] MEDS: ESOMEPRAZOLE 40 MG GT (08:07)
[2024-08-20] MEDS: NON-FORMULARY *SEE COMMENTS* 1 EA EA BOTH EYES ×2 (08:08→20:28)
[2024-08-20] MEDS: MULTIVIT-MIN/IRON FUM/FOLIC AC 1 EACH TABLET GT (08:08)
[2024-08-20] MEDS: SOD PHOS DI, MONO/K PHOS MONO 250 MG TABLET GT (08:08)
[2024-08-20] MEDS: SODIUM CHLORIDE TAB 1,000 MG TABLET.SOL 1000 MG GT ×2 (08:08→20:28)
[2024-08-20] MEDS: LOSARTAN 100 MG TABLET GT (20:28)
[2024-08-20] MEDS: SENNOSIDES 8.6 MG TABLET 17.2 MG GT (20:28)
[2024-08-21] VITALS (7 sets, daily range): BP systolic 103–147; BP diastolic 69–99; PULSE 76–105; RESP 18–23; TEMP 36.3–36.6; O2SAT 93–99
[2024-08-21] MEDS: ESOMEPRAZOLE 40 MG GT (08:09)
[2024-08-21] MEDS: MULTIVIT-MIN/IRON FUM/FOLIC AC 1 EACH TABLET GT (08:09)
[2024-08-21] MEDS: NON-FORMULARY *SEE COMMENTS* 1 EA EA BOTH EYES ×2 (08:09→20:30)
[2024-08-21] MEDS: SOD PHOS DI, MONO/K PHOS MONO 250 MG TABLET GT (08:09)
[2024-08-21] MEDS: SODIUM CHLORIDE TAB 1,000 MG TABLET.SOL 1000 MG GT ×2 (08:10→20:30)
--- NOTE | 2024-08-21 16:03 | ESPR_ITS ---
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 (2) Epilepsy, unspecified, not intractable, without status epilepticus: Status: Chronic (3) Essential (primary) hypertension: Status: Chronic (4) Tracheostomy status: Status: Chronic (5) Gastrostomy status: Status: Chronic (6) Chronic respiratory failure, unspecified whether with hypoxia or hypercapnia: Status: Chronic (7) Chronic hyponatremia: Status: Chronic SUBJECTIVE Fever:: none GI:: none Shortness of Breath:: none GI:: no complaints Pain:: none OBJECTIVE Most recent vital signs: Last Vital Signs Temp 97.6 F 08/21/24 11:36 Pulse 79 08/21/24 11:36 Resp 20 08/21/24 11:36 BP 141/82 H 08/21/24 11:36 Pulse Ox 93 L 08/21/24 07:10 O2 Del Method Blow-by 08/20/24 18:00 O2 Flow Rate 8 08/21/24 07:10 FiO2 30 08/21/24 07:10 Neurological:: alert Speech:: nods head, mouths words (sometimes) and appropriate Answers questions:: sometimes Respiratory:: shallow breathing Cardiovascular: RRR Abdomen: soft and nontender Extremities:: deformities Decubitus:: none Tracheostomy:: to blow by Feeding per:: G tube Complaints:: none ASSESSMENT & PLAN Assessment: 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 No pain issues, and remains comfortable. Ice chips for some oral gratification tried with success without any cough or aspiration and continued.Remains fully dependent for care. interacts some and mostly happy. Tendency for Hypo-natremia on labs being monitored and addressed. No clinical change. Electrolytes improved. monitored regularly. Pt remains fully dependent for care. No discomfort / pain. VSS. Tolerating feeding. Plan: All treatment reviewed and continued.
[2024-08-21] MEDS: SENNOSIDES 8.6 MG TABLET 17.2 MG GT (20:30)
[2024-08-22] VITALS: BP 138/86; PULSE 78; RESP 20; TEMP 36.2
[2024-08-22 06:00] VITALS: BP 139/88; PULSE 78; RESP 18; TEMP 36.4; O2SAT 98
[2024-08-22 07:25] VITALS: PULSE 89; RESP 21; O2SAT 98
[2024-08-22] MEDS: ESOMEPRAZOLE 40 MG GT (09:06)
[2024-08-22] MEDS: NON-FORMULARY *SEE COMMENTS* 1 EA EA BOTH EYES ×2 (09:06→20:58)
[2024-08-22] MEDS: MULTIVIT-MIN/IRON FUM/FOLIC AC 1 EACH TABLET GT (09:06)
[2024-08-22] MEDS: SODIUM CHLORIDE TAB 1,000 MG TABLET.SOL 1000 MG GT ×2 (09:06→20:59)
[2024-08-22] MEDS: SOD PHOS DI, MONO/K PHOS MONO 250 MG TABLET GT (09:06)
[2024-08-22 11:07] VITALS: BMI 26.1
[2024-08-22 11:24] VITALS: BP 157/81; PULSE 90; RESP 21; TEMP 36.2
--- NOTE | 2024-08-22 12:48 | PC.SS ---
Room visit: Resident is laying in bed with head of the bed elevated with call light properly placed with no signs of distress. Resident is alert and non verbal unable to make needs known, her decision maker is her daughter Homa. Resident has no changes in care or condition, she will remain in current care and will continue to have all subacute care needs met by staff as he remains on blow by with trach in place and GT for medication and nutrition. No changes in mood and behavior, she will continue to be monitored.
[2024-08-22 19:00] VITALS: PULSE 73; RESP 18; O2SAT 95
[2024-08-22 20:57] VITALS: BP 160/90; PULSE 90
[2024-08-22] MEDS: LOSARTAN 100 MG TABLET GT (20:57)
[2024-08-22] MEDS: SENNOSIDES 8.6 MG TABLET 17.2 MG GT (20:59)
[2024-08-23] VITALS: BP 88/55; PULSE 68; RESP 21; TEMP 35.8
[2024-08-23] MEDS: ACETAMINOPHEN 325 MG TABLET 650 MG GT (07:46)
[2024-08-23] MEDS: ESOMEPRAZOLE 40 MG GT (08:00)
[2024-08-23] MEDS: MULTIVIT-MIN/IRON FUM/FOLIC AC 1 EACH TABLET GT (08:00)
[2024-08-23] MEDS: SOD PHOS DI, MONO/K PHOS MONO 250 MG TABLET GT (08:00)
[2024-08-23] MEDS: SODIUM CHLORIDE TAB 1,000 MG TABLET.SOL 1000 MG GT ×2 (08:00→21:21)
[2024-08-23] MEDS: NON-FORMULARY *SEE COMMENTS* 1 EA EA BOTH EYES ×2 (08:00→20:59)
[2024-08-23 12:00] VITALS: BP 143/81; BP 160/91; PULSE 77; RESP 20; TEMP 36.6; O2SAT 97
[2024-08-23 12:43] VITALS: PULSE 72; RESP 18; O2SAT 93
[2024-08-23 18:00] VITALS: BP 139/82; BP 143/81; PULSE 79; RESP 17; TEMP 36.2; O2SAT 93
[2024-08-23 20:10] VITALS: PULSE 74; RESP 18; O2SAT 95
[2024-08-23 20:58] VITALS: BP 153/82; PULSE 89
[2024-08-23] MEDS: LOSARTAN 100 MG TABLET GT (20:58)
[2024-08-23] MEDS: SENNOSIDES 8.6 MG TABLET 17.2 MG GT (20:59)
[2024-08-24] VITALS: BP 132/81; PULSE 78; RESP 22; TEMP 36.3
[2024-08-24 06:50] VITALS: PULSE 73; RESP 18; O2SAT 92
[2024-08-24] MEDS: SOD PHOS DI, MONO/K PHOS MONO 250 MG TABLET GT (09:01)
[2024-08-24] MEDS: ESOMEPRAZOLE 40 MG GT (09:01)
[2024-08-24] MEDS: SODIUM CHLORIDE TAB 1,000 MG TABLET.SOL 1000 MG GT ×2 (09:02→20:35)
[2024-08-24] MEDS: MULTIVIT-MIN/IRON FUM/FOLIC AC 1 EACH TABLET GT (09:02)
[2024-08-24] MEDS: MAGNESIUM HYDROXIDE 30 ML ORAL SUSP ML GT (09:03)
[2024-08-24 12:00] VITALS: BP 135/82; PULSE 84; RESP 16; TEMP 36.6
[2024-08-24 18:00] VITALS: BP 109/76; PULSE 75; RESP 16; TEMP 36.1; O2SAT 97
[2024-08-24 19:30] VITALS: PULSE 66; RESP 18; O2SAT 94
[2024-08-24 20:34] VITALS: BP 126/81; PULSE 76
[2024-08-24] MEDS: LOSARTAN 100 MG TABLET GT (20:34)
[2024-08-24] MEDS: SENNOSIDES 8.6 MG TABLET 17.2 MG GT (20:35)
[2024-08-25] VITALS (7 sets, daily range): BP systolic 119–154; BP diastolic 79–93; PULSE 60–90; RESP 17–22; TEMP 35.8–36.4; O2SAT 90–98
[2024-08-25] MEDS: SOD PHOS DI, MONO/K PHOS MONO 250 MG TABLET GT (08:57)
[2024-08-25] MEDS: SODIUM CHLORIDE TAB 1,000 MG TABLET.SOL 1000 MG GT ×2 (08:57→20:51)
[2024-08-25] MEDS: MULTIVIT-MIN/IRON FUM/FOLIC AC 1 EACH TABLET GT (08:57)
[2024-08-25] MEDS: ESOMEPRAZOLE 40 MG GT (08:57)
[2024-08-25] MEDS: SENNOSIDES 8.6 MG TABLET 17.2 MG GT (20:50)
[2024-08-25] MEDS: LOSARTAN 100 MG TABLET GT (20:50)
--- NOTE | 2024-08-25 20:58 | PD.SAPROG ---
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 (2) Epilepsy, unspecified, not intractable, without status epilepticus: Status: Chronic (3) Essential (primary) hypertension: Status: Chronic (4) Tracheostomy status: Status: Chronic (5) Gastrostomy status: Status: Chronic (6) Chronic respiratory failure, unspecified whether with hypoxia or hypercapnia: Status: Chronic (7) Chronic hyponatremia: Status: Chronic SUBJECTIVE Fever:: none GI:: none Shortness of Breath:: none GI:: no complaints Pain:: none OBJECTIVE Most recent vital signs: Last Vital Signs Temp 97.1 F 08/25/24 17:17 Pulse 88 08/25/24 20:50 Resp 18 08/25/24 18:53 BP 154/93 H 08/25/24 20:50 Pulse Ox 95 08/25/24 18:53 O2 Del Method Blow-by 08/25/24 17:17 O2 Flow Rate 8 08/25/24 18:53 FiO2 30 08/25/24 18:53 Neurological:: alert Speech:: nods head, mouths words (sometimes) and appropriate Answers questions:: sometimes Respiratory:: shallow breathing Cardiovascular: RRR Abdomen: soft and nontender Extremities:: deformities Decubitus:: none Tracheostomy:: to blow by Feeding per:: G tube Complaints:: none ASSESSMENT & PLAN Assessment: 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 No pain issues, and remains comfortable. Ice chips for some oral gratification tried with success without any cough or aspiration and continued.Remains fully dependent for care. interacts some and mostly happy. Tendency for Hypo-natremia on labs being monitored and addressed. No clinical change. Electrolytes improved. monitored regularly. Pt remains fully dependent for care. No discomfort / pain. VSS. Tolerating feeding. Plan: All treatment reviewed and continued.
[2024-08-26] VITALS (8 sets, daily range): BP systolic 121–145; BP diastolic 79–92; PULSE 71–98; RESP 17–24; TEMP 36.2–36.5; O2SAT 95–98
[2024-08-26] MEDS: SODIUM CHLORIDE TAB 1,000 MG TABLET.SOL 1000 MG GT ×2 (08:00→20:47)
[2024-08-26] MEDS: MULTIVIT-MIN/IRON FUM/FOLIC AC 1 EACH TABLET GT (08:00)
[2024-08-26] MEDS: SOD PHOS DI, MONO/K PHOS MONO 250 MG TABLET GT (08:00)
[2024-08-26] MEDS: ESOMEPRAZOLE 40 MG GT (08:00)
[2024-08-26] MEDS: SENNOSIDES 8.6 MG TABLET 17.2 MG GT (20:47)
[2024-08-26] MEDS: LOSARTAN 100 MG TABLET GT (20:47)
[2024-08-27] VITALS (8 sets, daily range): BP systolic 128–151; BP diastolic 67–86; PULSE 76–86; RESP 18–34; TEMP 36.1–36.8; O2SAT 93–99
[2024-08-27] MEDS: ACETAMINOPHEN 325 MG TABLET 650 MG GT (00:08)
[2024-08-27] MEDS: ALBUTEROL INHALER 200 PUFF/INH INHALER INH (01:11)
[2024-08-27] MEDS: MULTIVIT-MIN/IRON FUM/FOLIC AC 1 EACH TABLET GT (08:49)
[2024-08-27] MEDS: SODIUM CHLORIDE TAB 1,000 MG TABLET.SOL 1000 MG GT ×2 (08:49→20:34)
[2024-08-27] MEDS: ESOMEPRAZOLE 40 MG GT (08:49)
[2024-08-27] MEDS: SOD PHOS DI, MONO/K PHOS MONO 250 MG TABLET GT (08:49)
[2024-08-27] MEDS: LOSARTAN 100 MG TABLET GT (20:33)
[2024-08-27] MEDS: SENNOSIDES 8.6 MG TABLET 17.2 MG GT (20:34)
[2024-08-28] VITALS (7 sets, daily range): BP systolic 136–155; BP diastolic 81–97; PULSE 73–94; RESP 17–22; TEMP 36.1–36.4; O2SAT 94–98
[2024-08-28] MEDS: ESOMEPRAZOLE 40 MG GT (08:05)
[2024-08-28] MEDS: SOD PHOS DI, MONO/K PHOS MONO 250 MG TABLET GT (08:06)
[2024-08-28] MEDS: SODIUM CHLORIDE TAB 1,000 MG TABLET.SOL 1000 MG GT ×2 (08:06→20:59)
[2024-08-28] MEDS: MULTIVIT-MIN/IRON FUM/FOLIC AC 1 EACH TABLET GT (08:06)
[2024-08-28] MEDS: SENNOSIDES 8.6 MG TABLET 17.2 MG GT (21:00)
[2024-08-28] MEDS: LOSARTAN 100 MG TABLET GT (21:00)
[2024-08-29] VITALS: BP 160/89; PULSE 99; RESP 20; TEMP 36.3
[2024-08-29 06:00] VITALS: BP 141/92; PULSE 89; RESP 18; TEMP 36.1; O2SAT 98
[2024-08-29] MEDS: ACETAMINOPHEN 325 MG TABLET 650 MG GT (07:41)
[2024-08-29 07:47] VITALS: PULSE 78; RESP 17; RESP 19; O2SAT 97
[2024-08-29] MEDS: SODIUM CHLORIDE TAB 1,000 MG TABLET.SOL 1000 MG GT ×2 (08:00→21:02)
[2024-08-29] MEDS: MULTIVIT-MIN/IRON FUM/FOLIC AC 1 EACH TABLET GT (08:00)
[2024-08-29] MEDS: SOD PHOS DI, MONO/K PHOS MONO 250 MG TABLET GT (08:00)
[2024-08-29] MEDS: ESOMEPRAZOLE 40 MG GT (08:00)
[2024-08-29 12:00] VITALS: BP 148/86; PULSE 89; RESP 22; TEMP 36.4
[2024-08-29] MEDS: MAGNESIUM HYDROXIDE 30 ML ORAL SUSP ML GT (13:50)
--- NOTE | 2024-08-29 15:27 | ESPR_ITS ---
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 (2) Epilepsy, unspecified, not intractable, without status epilepticus: Status: Chronic (3) Essential (primary) hypertension: Status: Chronic (4) Tracheostomy status: Status: Chronic (5) Gastrostomy status: Status: Chronic (6) Chronic respiratory failure, unspecified whether with hypoxia or hypercapnia: Status: Chronic (7) Chronic hyponatremia: Status: Chronic SUBJECTIVE Fever:: none GI:: none Shortness of Breath:: none GI:: no complaints Pain:: none OBJECTIVE Most recent vital signs: Last Vital Signs Temp 97.5 F 08/29/24 12:00 Pulse 89 08/29/24 12:00 Resp 22 H 08/29/24 12:00 BP 148/86 H 08/29/24 12:00 Pulse Ox 97 08/29/24 07:47 O2 Del Method Blow-by 08/28/24 06:00 O2 Flow Rate 10 08/29/24 07:47 FiO2 40 08/29/24 07:47 Neurological:: alert Speech:: nods head, mouths words (sometimes) and appropriate Answers questions:: sometimes Respiratory:: shallow breathing Cardiovascular: RRR Abdomen: soft and nontender Extremities:: deformities Decubitus:: none Tracheostomy:: to blow by Feeding per:: G tube Complaints:: none ASSESSMENT & PLAN Assessment: Pt fully dependent for residential care. No pain issues, and remains comfortable. Ice chips for some oral gratification tried with success without any cough or aspiration and continued.Remains fully dependent for care. interacts some and mostly happy. Tendency for Hypo-natremia on labs being monitored and addressed. No clinical change. Electrolytes improved. monitored regularly. Pt remains fully dependent for care. No discomfort / pain. VSS. Tolerating feeding. Plan: All treatment reviewed and continued.
--- NOTE | 2024-08-29 15:36 | PC.SS ---
Room visit: Resident is laying in bed with head of the bed elevated with call light properly placed with no signs of distress. Resident is well groomed with call light properly placed. Resident has no changes in care and condition, to remain in subacute care and will have all subacute care needs met by staff. SSD will continue to make daily contact with resident and monitor for changes in mood and behavior.
[2024-08-29 17:33] VITALS: BP 124/82; PULSE 69; RESP 22; TEMP 36.4
[2024-08-29 21:02] VITALS: BP 125/83; PULSE 76
[2024-08-29] MEDS: SENNOSIDES 8.6 MG TABLET 17.2 MG GT (21:02)
[2024-08-29] MEDS: LOSARTAN 100 MG TABLET GT (21:02)
[2024-08-30] VITALS (7 sets, daily range): BP systolic 131–153; BP diastolic 79–93; PULSE 63–84; RESP 16–20; TEMP 36.1–36.7; O2SAT 95–99
[2024-08-30 07:08] LABS: Basophils # (Auto) 0.0 Thou/mm3 (0.0-0.2); Basophils % (Auto) 1 % (0-2.5); Eosinophils # (Auto) 0.2 Thou/mm3 (0.0-0.5); Eosinophils % (Auto) 2 % (0-10); Hematocrit 34.7 % (36.0-46.0); Hemoglobin 11.6 g/dL (12.0-16.0); Immature Granulocytes Auto 0.01 Thou/mm3 (0.00-0.00); Lymphocytes # (Auto) 1.8 Thou/mm3 (1.0-4.8); Lymphocytes % (Auto) 22 % (10-50); Mean Corpuscular HGB Conc 33.4 g/dl (31.0-37.0); Mean Corpuscular Hemoglobin 29.7 pg (25.0-35.0); Mean Corpuscular Volume 89 fL (80-100); Monocytes # (Auto) 0.8 Thou/mm3 (0.0-0.8); Monocytes % (Auto) 9 % (0-12); Neutrophils # (Auto) 5.3 Thou/mm3 (1.8-7.7); Neutrophils % (Auto) 66 % (37-80); Nucleated Red Blood Cell # 0.00 Thou/mm3 (0.00-0.00); Nucleated Red Blood Cell % 0 /100 WBC (0); Platelet Count 288 Thou/mm3 (140-440); RDW Standard Deviation 41.2 fL (36.4-46.3); Red Blood Count 3.91 Miln/mm3 (4.00-5.20); White Blood Count 8.1 Thou/mm3 (3.6-11.0)
[2024-08-30] MEDS: MULTIVIT-MIN/IRON FUM/FOLIC AC 1 EACH TABLET GT (08:03)
[2024-08-30] MEDS: SODIUM CHLORIDE TAB 1,000 MG TABLET.SOL 1000 MG GT ×2 (08:03→20:54)
[2024-08-30] MEDS: ESOMEPRAZOLE 40 MG GT (08:03)
[2024-08-30] MEDS: SOD PHOS DI, MONO/K PHOS MONO 250 MG TABLET GT (08:03)
[2024-08-30] MEDS: LOSARTAN 100 MG TABLET GT (20:54)
[2024-08-30] MEDS: SENNOSIDES 8.6 MG TABLET 17.2 MG GT (20:54)
[2024-08-31] VITALS (7 sets, daily range): BP systolic 110–151; BP diastolic 65–95; PULSE 65–121; RESP 18–20; TEMP 36.3–36.8; O2SAT 95–99
[2024-08-31] MEDS: ESOMEPRAZOLE 40 MG GT (08:09)
[2024-08-31] MEDS: MULTIVIT-MIN/IRON FUM/FOLIC AC 1 EACH TABLET GT (08:10)
[2024-08-31] MEDS: SODIUM CHLORIDE TAB 1,000 MG TABLET.SOL 1000 MG GT ×2 (08:10→20:42)
[2024-08-31] MEDS: SOD PHOS DI, MONO/K PHOS MONO 250 MG TABLET GT (08:10)
[2024-08-31] MEDS: LOSARTAN 100 MG TABLET GT (20:42)
[2024-08-31] MEDS: SENNOSIDES 8.6 MG TABLET 17.2 MG GT (20:42)
[2024-09-01] VITALS (7 sets, daily range): BP systolic 98–142; BP diastolic 61–89; PULSE 65–120; RESP 16–20; TEMP 36.3–38.2; O2SAT 94–97
[2024-09-01] MEDS: ESOMEPRAZOLE 40 MG GT (08:13)
[2024-09-01] MEDS: SOD PHOS DI, MONO/K PHOS MONO 250 MG TABLET GT (08:13)
[2024-09-01] MEDS: MULTIVIT-MIN/IRON FUM/FOLIC AC 1 EACH TABLET GT (08:14)
[2024-09-01] MEDS: SODIUM CHLORIDE TAB 1,000 MG TABLET.SOL 1000 MG GT ×2 (08:14→20:54)
--- NOTE | 2024-09-01 16:52 | PC.NURSE ---
Notified MD regarding resident reddened eyes ongoing for a few week noted greenish eye discharge. New order for eye culture and Cipro eye drops. Cultured eyes and sent to lab. Carried out order for abt. placed resident on conctact precautions for suspected conjunctivitis.
[2024-09-01] MEDS: CIPROFLOXACIN HCL 1 DROP BOTH EYES ×2 (17:22→20:53)
[2024-09-01] MEDS: SENNOSIDES 8.6 MG TABLET 17.2 MG GT (20:53)
[2024-09-01] MEDS: LOSARTAN 100 MG TABLET GT (20:53)
[2024-09-01] MEDS: ACETAMINOPHEN 325 MG TABLET 650 MG GT (22:15)
[2024-09-01 22:26] LABS: Basophils # (Auto) 0.0 Thou/mm3 (0.0-0.2); Basophils % (Auto) 0 % (0-2.5); Eosinophils # (Auto) 0.1 Thou/mm3 (0.0-0.5); Eosinophils % (Auto) 1 % (0-10); Hematocrit 37.9 % (36.0-46.0); Hemoglobin 13.1 g/dL (12.0-16.0); Immature Granulocytes Auto 0.02 Thou/mm3 (0.00-0.00); Lymphocytes # (Auto) 1.7 Thou/mm3 (1.0-4.8); Lymphocytes % (Auto) 19 % (10-50); Mean Corpuscular HGB Conc 34.6 g/dl (31.0-37.0); Mean Corpuscular Hemoglobin 30.3 pg (25.0-35.0); Mean Corpuscular Volume 88 fL (80-100); Monocytes # (Auto) 0.9 Thou/mm3 (0.0-0.8); Monocytes % (Auto) 9 % (0-12); Neutrophils # (Auto) 6.5 Thou/mm3 (1.8-7.7); Neutrophils % (Auto) 71 % (37-80); Nucleated Red Blood Cell # 0.00 Thou/mm3 (0.00-0.00); Nucleated Red Blood Cell % 0 /100 WBC (0); Platelet Count 321 Thou/mm3 (140-440); RDW Standard Deviation 40.6 fL (36.4-46.3); Red Blood Count 4.32 Miln/mm3 (4.00-5.20); White Blood Count 9.2 Thou/mm3 (3.6-11.0)
[2024-09-01 22:31] LABS: Collection Type, Urine Catheter
[2024-09-01 22:42] LABS: Bacteria,Urine 1+; Bilirubin,Urine Negative (Negative); Blood,Urine Negative (Negative); Budding Yeast,Urine Present; Clarity,Urine Turbid (Clear/Hazy); Color,Urine Yellow (Lt Yel-Yel); Culture Indicated,Urine Contaminated; Glucose, Urine Negative (Negative); Ketones,Urine Negative (Negative); Leukocyte Esterase,Urine Positive (Negative); Nitrite,Urine Negative (Negative); PH,Urine 7.0 (5.0-7.0); Protein,Urine Trace (Neg - Trace); RBC,Urine 8 /hpf (0-3); Specific Gravity,Urine 1.017 (1.001-1.035); Squamous Epithelial Cell,Urine 29 /hpf (0-5); Urobilinogen,Urine Negative mg/dL (0.0-1.0); WBC,Urine 467 /hpf (0-5)
[2024-09-01 22:52] LABS: COVID-19 Antigen (In-House) Negative (Negative); Influenza A Ag Negative; Influenza B Ag Negative
[2024-09-01 23:00] LABS: Procalcitonin 0.06 ng/ml (0.0-0.49)
[2024-09-02] VITALS (7 sets, daily range): BP systolic 111–126; BP diastolic 81–85; PULSE 74–96; RESP 18–24; TEMP 35.7–37.5; O2SAT 94–99
[2024-09-02 00:50] LABS: Collection Type, Urine Catheter; Squamous Epithelial Cell,Urine 0 /hpf (0-5)
[2024-09-02 01:16] LABS: Bacteria,Urine 1+; Bilirubin,Urine Negative (Negative); Blood,Urine Negative (Negative); Clarity,Urine Clear (Clear/Hazy); Color,Urine Yellow (Lt Yel-Yel); Culture Indicated,Urine Yes; Glucose, Urine Negative (Negative); Hyaline Casts,Urine < 1 /hpf (0-1); Ketones,Urine Negative (Negative); Leukocyte Esterase,Urine Positive (Negative); Nitrite,Urine Negative (Negative); PH,Urine 6.0 (5.0-7.0); Protein,Urine 1+ (Neg - Trace); RBC,Urine 3 /hpf (0-3); Specific Gravity,Urine 1.030 (1.001-1.035); Urobilinogen,Urine 2.0 mg/dL (0.0-1.0); WBC,Urine 21 /hpf (0-5)
[2024-09-02] MEDS: CIPROFLOXACIN HCL 500 MG TABLET GT ×3 (01:45→20:29)
[2024-09-02] MEDS: CIPROFLOXACIN HCL 1 DROP BOTH EYES ×4 (05:25→20:29)
--- NOTE | 2024-09-02 06:24 | PC.NURSE ---
At 2030-resident noted to be hot to the touch, rectal temp. checked and noted to be at 101.1F, cooling measures provided. 2144-rectal temp. was rechecked and noted at 100.7F, fever protocol was done, first urine collection was contaminated, tyl 650mg administered, a second urine collection was obtained, made aware of lab results and new order was obtained for Cipro 500mg BID via Gtube x 7 days for UTI, first dose pulled from [facility] at 0145 and administered, no side effects or adverse reaction noted, fluids provided via Gtube. 0030-rectal temp. rechecked and noted at 99.5. 0500-rectal temp. rechecked and noted at 98.1F, resident in room resting, respirations even and unlabored, no s/s of distress, resident is also on cipro eye drop for redness to left eye, redness noted to left eye, no drainage noted, resident continues on contact.
[2024-09-02] MEDS: ESOMEPRAZOLE 40 MG GT (08:46)
[2024-09-02] MEDS: SODIUM CHLORIDE TAB 1,000 MG TABLET.SOL 1000 MG GT ×2 (08:47→20:30)
[2024-09-02] MEDS: MULTIVIT-MIN/IRON FUM/FOLIC AC 1 EACH TABLET GT (08:47)
[2024-09-02] MEDS: ACETAMINOPHEN 325 MG TABLET 650 MG GT (08:48)
[2024-09-02] MEDS: SOD PHOS DI, MONO/K PHOS MONO 250 MG TABLET GT (08:50)
[2024-09-02] MEDS: LOSARTAN 100 MG TABLET GT (20:29)
[2024-09-02] MEDS: SENNOSIDES 8.6 MG TABLET 17.2 MG GT (20:29)
--- NOTE | 2024-09-02 22:14 | ESPR_ITS ---
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 (2) Epilepsy, unspecified, not intractable, without status epilepticus: Status: Chronic (3) Essential (primary) hypertension: Status: Chronic (4) Tracheostomy status: Status: Chronic (5) Gastrostomy status: Status: Chronic (6) Chronic respiratory failure, unspecified whether with hypoxia or hypercapnia: Status: Chronic (7) Chronic hyponatremia: Status: Chronic SUBJECTIVE Fever:: none GI:: none Shortness of Breath:: none GI:: no complaints Pain:: none OBJECTIVE Most recent vital signs: Last Vital Signs Temp 96.3 F L 09/02/24 18:00 Pulse 96 09/02/24 20:29 Resp 18 09/02/24 18:00 BP 123/83 09/02/24 20:29 Pulse Ox 94 L 09/02/24 18:00 O2 Del Method Blow-by 09/02/24 06:00 O2 Flow Rate 8 09/02/24 06:22 FiO2 35 09/02/24 06:22 Neurological:: alert Speech:: nods head, mouths words (sometimes) and appropriate Answers questions:: sometimes Respiratory:: shallow breathing Cardiovascular: RRR Abdomen: soft and nontender Extremities:: deformities Decubitus:: none Tracheostomy:: to blow by Feeding per:: G tube Complaints:: none ASSESSMENT & PLAN Assessment: 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 No pain issues, and remains comfortable. Ice chips for some oral gratification tried with success without any cough or aspiration and continued.Remains fully dependent for care. interacts some and mostly happy. Tendency for Hypo-natremia on labs being monitored and addressed. No clinical change. Electrolytes improved. monitored regularly. Pt remains fully dependent for care. No discomfort / pain. VSS. Tolerating feeding. amicable behaviour Plan: All treatment reviewed and continued.
[2024-09-03] VITALS (7 sets, daily range): BP systolic 108–141; BP diastolic 63–86; PULSE 71–98; RESP 18–24; TEMP 36.1–36.8; O2SAT 92–97
[2024-09-03] MEDS: CIPROFLOXACIN HCL 1 DROP BOTH EYES ×3 (06:09→18:24)
[2024-09-03] MEDS: SODIUM CHLORIDE TAB 1,000 MG TABLET.SOL 1000 MG GT ×2 (09:09→20:14)
[2024-09-03] MEDS: ESOMEPRAZOLE 40 MG GT (09:10)
[2024-09-03] MEDS: CIPROFLOXACIN HCL 500 MG TABLET GT ×2 (09:10→20:13)
[2024-09-03] MEDS: SOD PHOS DI, MONO/K PHOS MONO 250 MG TABLET GT (09:10)
[2024-09-03] MEDS: MULTIVIT-MIN/IRON FUM/FOLIC AC 1 EACH TABLET GT (09:10)
--- NOTE | 2024-09-03 11:21 | PC.IP ---
Presently resident continues with redness to eyes; Culture obtained on 09/01/24 with final result still pending.Urine and sputum final culture results still pending. MD order Cipro gtts to both eyes until final culture result; Cipro 500mg ordered for Urinalysis result until final culture result received. Resident is not febrile. Resident has been in Contact precautions since noting increased redness to eyes.
--- NOTE | 2024-09-03 16:27 | PC.NURSE ---
Resident found with trach dislodged. No respiratory distress or cyanosis noted. Resident was resting quietly in her bed. Monitoring O2 sats >90%, notified ENVIRONMENT COORDINATOR, no bleeding or trauma noted from trach stoma. Trach tube was replaced without issue by ENVIRONMENT COORDINATOR.
--- NOTE | 2024-09-03 19:17 | PC.NURSE ---
Resident continues on antibiotic eye drops for redness/drainage. Resident also continues on ATB via GT for possible UTI. No adverse reactions noted. Awaiting culture resulta. Continue to observe.
[2024-09-03] MEDS: LOSARTAN 100 MG TABLET GT (20:13)
[2024-09-03] MEDS: SENNOSIDES 8.6 MG TABLET 17.2 MG GT (20:14)
[2024-09-04] VITALS: BP 126/81; PULSE 98; RESP 22; TEMP 37.6
[2024-09-04] MEDS: CIPROFLOXACIN HCL 1 DROP BOTH EYES ×4 (00:03→18:00)
[2024-09-04 05:57] VITALS: BP 126/89; PULSE 85; RESP 22; TEMP 37.1; O2SAT 97
[2024-09-04 07:26] VITALS: PULSE 90; RESP 18; O2SAT 93
[2024-09-04] MEDS: CIPROFLOXACIN HCL 500 MG TABLET GT ×2 (08:08→20:24)
[2024-09-04] MEDS: SOD PHOS DI, MONO/K PHOS MONO 250 MG TABLET GT (08:08)
[2024-09-04] MEDS: MULTIVIT-MIN/IRON FUM/FOLIC AC 1 EACH TABLET GT (08:08)
[2024-09-04] MEDS: ESOMEPRAZOLE 40 MG GT (08:08)
[2024-09-04] MEDS: SODIUM CHLORIDE TAB 1,000 MG TABLET.SOL 1000 MG GT ×2 (08:08→20:23)
--- NOTE | 2024-09-04 10:42 | PC.SS ---
Resident received Yazmin for gael Sunday provided by spiritual care team with building custodian. RP has given permission for ashes.
[2024-09-04 11:38] VITALS: BP 134/89; PULSE 80; RESP 17; TEMP 36.4
[2024-09-04 17:07] VITALS: BP 116/76; PULSE 87; RESP 17; TEMP 36.6; O2SAT 99
[2024-09-04 20:23] VITALS: BP 138/93; PULSE 99
[2024-09-04] MEDS: LOSARTAN 100 MG TABLET GT (20:23)
[2024-09-04] MEDS: SENNOSIDES 8.6 MG TABLET 17.2 MG GT (20:23)
--- NOTE | 2024-09-04 20:48 | PC.NURSE ---
Addendum entered by Elba Tse RN 09/05/24 00:15: resident continues with redness to both eyes Original Note: made aware of eye culture results and fever protocol cultures results, resident to continue with cirpro eye drops for a total of 5 days, resident continues with redness not left eye, eye discharge noted, no WBC or organism seen in culture, no growth in blood cultures, Urine culture contaminated, per sputum cultures is colonized since no WBC where seen in culture, resident to continue Cipro 500mg tab for a total of 5 days, resident in room resting, afebrile, no s/s of distress, call light within reach.
[2024-09-05] VITALS (8 sets, daily range): BP systolic 110–140; BP diastolic 62–88; PULSE 57–90; RESP 18–20; TEMP 36–36.7; O2SAT 94–97
[2024-09-05] MEDS: CIPROFLOXACIN HCL 1 DROP BOTH EYES ×4 (00:09→17:07)
[2024-09-05] MEDS: SODIUM CHLORIDE TAB 1,000 MG TABLET.SOL 1000 MG GT ×2 (07:59→20:00)
[2024-09-05] MEDS: ESOMEPRAZOLE 40 MG GT (07:59)
[2024-09-05] MEDS: MULTIVIT-MIN/IRON FUM/FOLIC AC 1 EACH TABLET GT (07:59)
[2024-09-05] MEDS: SOD PHOS DI, MONO/K PHOS MONO 250 MG TABLET GT (07:59)
[2024-09-05] MEDS: CIPROFLOXACIN HCL 500 MG TABLET GT ×2 (07:59→20:00)
--- NOTE | 2024-09-05 12:09 | PC.SS ---
Room visit: Resident is laying in bed with head of the bed elevated with call light properly placed. Resident has no changes in care or condition, she remains on blow by with trach in place and GT for medication and nutrition. Resident is unable to make needs known, she is represented by her daughter Homa Griffiths. Resident will remain in current care and will have all subacute care needs met by staff. This SSD will continue to make contact and monitor for changes in mood and behavior.
[2024-09-05] MEDS: SENNOSIDES 8.6 MG TABLET 17.2 MG GT (20:00)
[2024-09-05] MEDS: LOSARTAN 100 MG TABLET GT (20:00)
[2024-09-06] VITALS: BP 165/102; PULSE 87; RESP 19; TEMP 36.4
[2024-09-06] MEDS: CIPROFLOXACIN HCL 1 DROP BOTH EYES ×4 (05:23→17:19)
[2024-09-06 06:00] VITALS: BP 137/95; PULSE 85; RESP 18; TEMP 36.6
[2024-09-06 07:15] VITALS: PULSE 82; RESP 18; O2SAT 96
[2024-09-06] MEDS: SOD PHOS DI, MONO/K PHOS MONO 250 MG TABLET GT (08:17)
[2024-09-06] MEDS: SODIUM CHLORIDE TAB 1,000 MG TABLET.SOL 1000 MG GT ×2 (08:17→20:16)
[2024-09-06] MEDS: CIPROFLOXACIN HCL 500 MG TABLET GT ×2 (08:17→20:14)
[2024-09-06] MEDS: MULTIVIT-MIN/IRON FUM/FOLIC AC 1 EACH TABLET GT (08:17)
[2024-09-06] MEDS: ESOMEPRAZOLE 40 MG GT (08:17)
[2024-09-06 12:00] VITALS: BP 128/85; PULSE 82; RESP 20; TEMP 36.8
[2024-09-06 17:45] VITALS: BP 105/74; PULSE 81; RESP 20; TEMP 36.4; O2SAT 96
[2024-09-06 20:15] VITALS: BP 138/85; PULSE 95
[2024-09-06] MEDS: LOSARTAN 100 MG TABLET GT (20:15)
[2024-09-06] MEDS: ACETAMINOPHEN 325 MG TABLET 650 MG GT (20:16)
[2024-09-06] MEDS: SENNOSIDES 8.6 MG TABLET 17.2 MG GT (20:16)
--- NOTE | 2024-09-06 20:36 | PD.SAPROG ---
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 (2) Epilepsy, unspecified, not intractable, without status epilepticus: Status: Chronic (3) Essential (primary) hypertension: Status: Chronic (4) Tracheostomy status: Status: Chronic (5) Gastrostomy status: Status: Chronic (6) Chronic respiratory failure, unspecified whether with hypoxia or hypercapnia: Status: Chronic (7) Chronic hyponatremia: Status: Chronic SUBJECTIVE Fever:: none GI:: none Shortness of Breath:: none GI:: no complaints Pain:: none OBJECTIVE Most recent vital signs: Last Vital Signs Temp 97.6 F 09/06/24 17:45 Pulse 95 09/06/24 20:15 Resp 20 09/06/24 17:45 BP 138/85 H 09/06/24 20:15 Pulse Ox 96 09/06/24 17:45 O2 Del Method Blow-by 09/06/24 17:45 O2 Flow Rate 8 09/06/24 07:15 FiO2 35 09/06/24 07:15 Neurological:: alert Speech:: nods head, mouths words (sometimes) and appropriate Answers questions:: sometimes Respiratory:: shallow breathing Cardiovascular: RRR Abdomen: soft and nontender Extremities:: deformities Decubitus:: none Tracheostomy:: to blow by Feeding per:: G tube Complaints:: none ASSESSMENT & PLAN Assessment: 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 No pain issues, and remains comfortable. Ice chips for some oral gratification tried with success without any cough or aspiration and continued.Remains fully dependent for care. interacts some and mostly happy. Tendency for Hypo-natremia on labs being monitored and addressed. No clinical change. Electrolytes improved. monitored regularly. Pt remains fully dependent for care. No discomfort / pain. VSS. No new issues Plan: All treatment reviewed and continued.
[2024-09-07] VITALS (8 sets, daily range): BP systolic 117–158; BP diastolic 74–88; PULSE 73–93; RESP 18–20; TEMP 36.1–36.6; O2SAT 97–98
[2024-09-07] MEDS: ESOMEPRAZOLE 40 MG GT (08:03)
[2024-09-07] MEDS: SODIUM CHLORIDE TAB 1,000 MG TABLET.SOL 1000 MG GT ×2 (08:03→20:31)
[2024-09-07] MEDS: SOD PHOS DI, MONO/K PHOS MONO 250 MG TABLET GT (08:03)
[2024-09-07] MEDS: MULTIVIT-MIN/IRON FUM/FOLIC AC 1 EACH TABLET GT (08:03)
[2024-09-07] MEDS: SENNOSIDES 8.6 MG TABLET 17.2 MG GT (20:30)
[2024-09-07] MEDS: LOSARTAN 100 MG TABLET GT (20:30)
[2024-09-07] MEDS: ACETAMINOPHEN 325 MG TABLET 650 MG GT (20:31)
[2024-09-08 05:39] VITALS: BP 136/90; PULSE 90; RESP 18; TEMP 36.1; O2SAT 98
[2024-09-08 07:17] VITALS: PULSE 74; RESP 20; O2SAT 98
[2024-09-08] MEDS: ESOMEPRAZOLE 40 MG GT (08:10)
[2024-09-08] MEDS: SODIUM CHLORIDE TAB 1,000 MG TABLET.SOL 1000 MG GT ×2 (08:12→21:03)
[2024-09-08] MEDS: SOD PHOS DI, MONO/K PHOS MONO 250 MG TABLET GT (08:12)
[2024-09-08] MEDS: MULTIVIT-MIN/IRON FUM/FOLIC AC 1 EACH TABLET GT (08:12)
[2024-09-08 11:20] VITALS: BP 125/88; PULSE 94; RESP 17; TEMP 36.1
[2024-09-08 17:40] VITALS: BP 114/80; PULSE 105; RESP 17; TEMP 36.1; O2SAT 99
[2024-09-08 21:02] VITALS: BP 146/84; PULSE 105
[2024-09-08] MEDS: LOSARTAN 100 MG TABLET GT (21:02)
[2024-09-08] MEDS: ACETAMINOPHEN 325 MG TABLET 650 MG GT (21:02)
[2024-09-08] MEDS: SENNOSIDES 8.6 MG TABLET 17.2 MG GT (21:03)
[2024-09-08 23:52] VITALS: BP 118/77; PULSE 98; RESP 22; TEMP 36.6
[2024-09-09 06:00] VITALS: BP 132/94; PULSE 96; RESP 20; TEMP 36.7; O2SAT 97
[2024-09-09 07:21] VITALS: PULSE 81; RESP 22; O2SAT 99
[2024-09-09] MEDS: ESOMEPRAZOLE 40 MG GT (09:26)
[2024-09-09] MEDS: SOD PHOS DI, MONO/K PHOS MONO 250 MG TABLET GT (09:27)
[2024-09-09] MEDS: MULTIVIT-MIN/IRON FUM/FOLIC AC 1 EACH TABLET GT (09:27)
[2024-09-09] MEDS: SODIUM CHLORIDE TAB 1,000 MG TABLET.SOL 1000 MG GT ×2 (09:27→20:52)
[2024-09-09 12:00] VITALS: BP 126/78; PULSE 85; RESP 21; TEMP 36.3
--- NOTE | 2024-09-09 15:31 | PC.LAC ---
. came and look resident both eyes and genteal tears BID x 7 days then re-eval, order noted and carried out.
[2024-09-09 17:21] VITALS: BP 154/91; PULSE 86; RESP 22; TEMP 36.4; O2SAT 95
[2024-09-09 20:50] VITALS: BP 156/90; PULSE 93
[2024-09-09] MEDS: LOSARTAN 100 MG TABLET GT (20:50)
[2024-09-09] MEDS: DEX/HYPRO/GLY ARTIFICAL TEARS 225 DROP/15 ML BTL BOTH EYES (20:51)
[2024-09-09] MEDS: SENNOSIDES 8.6 MG TABLET 17.2 MG GT (20:52)
[2024-09-09 20:58] VITALS: PULSE 78; RESP 20; O2SAT 98
[2024-09-10] VITALS (7 sets, daily range): BP systolic 97–159; BP diastolic 68–88; PULSE 68–79; RESP 18–21; TEMP 36.1–36.4; O2SAT 96–98
[2024-09-10] MEDS: DEX/HYPRO/GLY ARTIFICAL TEARS 225 DROP/15 ML BTL BOTH EYES ×2 (09:13→20:05)
[2024-09-10] MEDS: ESOMEPRAZOLE 40 MG GT (09:13)
[2024-09-10] MEDS: SOD PHOS DI, MONO/K PHOS MONO 250 MG TABLET GT (09:14)
[2024-09-10] MEDS: MULTIVIT-MIN/IRON FUM/FOLIC AC 1 EACH TABLET GT (09:14)
[2024-09-10] MEDS: SODIUM CHLORIDE TAB 1,000 MG TABLET.SOL 1000 MG GT ×2 (09:15→20:11)
--- NOTE | 2024-09-10 13:40 | ESPR_ITS ---
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 (2) Epilepsy, unspecified, not intractable, without status epilepticus: Status: Chronic (3) Essential (primary) hypertension: Status: Chronic (4) Tracheostomy status: Status: Chronic (5) Gastrostomy status: Status: Chronic (6) Chronic respiratory failure, unspecified whether with hypoxia or hypercapnia: Status: Chronic (7) Chronic hyponatremia: Status: Chronic SUBJECTIVE Fever:: none GI:: none Shortness of Breath:: none GI:: no complaints Pain:: none OBJECTIVE Most recent vital signs: Last Vital Signs Temp 97.3 F 09/14/24 06:00 Pulse 98 09/14/24 20:48 Resp 20 09/14/24 13:21 BP 123/81 09/14/24 20:48 Pulse Ox 94 L 09/14/24 13:21 O2 Del Method Blow-by 09/13/24 17:53 O2 Flow Rate 8 09/14/24 13:21 FiO2 30 09/14/24 13:21 Neurological:: alert Speech:: nods head, mouths words (sometimes) and appropriate Answers questions:: sometimes Respiratory:: shallow breathing Cardiovascular: RRR Abdomen: soft and nontender Extremities:: deformities Decubitus:: none Tracheostomy:: to blow by Feeding per:: G tube Complaints:: none ASSESSMENT & PLAN Assessment: 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 No pain issues, and remains comfortable. Ice chips for some oral gratification tried with success without any cough or aspiration and continued.Remains fully dependent for care. interacts some and mostly happy. Tendency for Hypo-natremia on labs being monitored and addressed. No clinical change. Electrolytes improved. monitored regularly. Pt remains fully dependent for care. No discomfort / pain. VSS. No new issues Plan: All treatment reviewed and continued.
[2024-09-10] MEDS: LOSARTAN 100 MG TABLET GT (20:07)
[2024-09-10] MEDS: SENNOSIDES 8.6 MG TABLET 17.2 MG GT (20:11)
[2024-09-10] MEDS: ACETAMINOPHEN 325 MG TABLET 650 MG GT (20:11)
[2024-09-11] VITALS: BP 141/82; PULSE 83; RESP 22; TEMP 36.4
[2024-09-11 06:00] VITALS: BP 123/84; PULSE 80; RESP 20; TEMP 36.1; O2SAT 95
[2024-09-11] MEDS: ESOMEPRAZOLE 40 MG GT (07:59)
[2024-09-11] MEDS: SOD PHOS DI, MONO/K PHOS MONO 250 MG TABLET GT (07:59)
[2024-09-11] MEDS: MULTIVIT-MIN/IRON FUM/FOLIC AC 1 EACH TABLET GT (07:59)
[2024-09-11] MEDS: DEX/HYPRO/GLY ARTIFICAL TEARS 225 DROP/15 ML BTL BOTH EYES ×2 (07:59→20:11)
[2024-09-11] MEDS: SODIUM CHLORIDE TAB 1,000 MG TABLET.SOL 1000 MG GT ×2 (07:59→20:12)
[2024-09-11 09:26] VITALS: PULSE 72; RESP 18; O2SAT 97
[2024-09-11 12:00] VITALS: PULSE 78; RESP 19; TEMP 36.3
[2024-09-11 19:10] VITALS: PULSE 74; RESP 16; O2SAT 96
[2024-09-11 20:11] VITALS: BP 126/83; PULSE 83
[2024-09-11] MEDS: LOSARTAN 100 MG TABLET GT (20:11)
[2024-09-11] MEDS: SENNOSIDES 8.6 MG TABLET 17.2 MG GT (20:12)
[2024-09-11] MEDS: MAGNESIUM HYDROXIDE 30 ML ORAL SUSP ML GT (21:00)
[2024-09-12] VITALS (9 sets, daily range): BP systolic 109–168; BP diastolic 76–97; PULSE 78–97; RESP 18–22; TEMP 36.1–36.4; O2SAT 94–97
[2024-09-12] MEDS: DEX/HYPRO/GLY ARTIFICAL TEARS 225 DROP/15 ML BTL BOTH EYES ×2 (08:12→21:39)
[2024-09-12] MEDS: SODIUM CHLORIDE TAB 1,000 MG TABLET.SOL 1000 MG GT ×2 (08:12→21:40)
[2024-09-12] MEDS: MULTIVIT-MIN/IRON FUM/FOLIC AC 1 EACH TABLET GT (08:12)
[2024-09-12] MEDS: SOD PHOS DI, MONO/K PHOS MONO 250 MG TABLET GT (08:12)
[2024-09-12] MEDS: ESOMEPRAZOLE 40 MG GT (08:12)
--- NOTE | 2024-09-12 14:36 | PC.SS ---
Room visit: Resident is laying in bed with head of the bed elevated with call light properly placed with no signs of distress. Resident has no changes in condition, remains on blow by with trach in place and GT for medication and nutrition. Resident is unable to make needs known, her decision maker is her daughter. Resident will remain in current care and will continue to have all subacute care needs met by staff. This SSD will make daily contact with resident and will monitor for changes in mood and behavior
--- NOTE | 2024-09-12 19:12 | PC.NURSE ---
BULK STATION OPERATOR in charge was trying to fix resident's trach / collar when resident's trach came out. Inserted a new trah without difficulty , resident tolerated the procedure. No s/s of respiratory distress noted. V/S taken as follows : 139/78, 83, 28, 96.7. Notified Dr Gonsalez. Monitor v/s every 4 hours x 24 hours.
[2024-09-12] MEDS: LOSARTAN 100 MG TABLET GT (21:39)
[2024-09-12] MEDS: ACETAMINOPHEN 325 MG TABLET 650 MG GT (21:40)
[2024-09-12] MEDS: SENNOSIDES 8.6 MG TABLET 17.2 MG GT (21:40)
[2024-09-13 02:00] VITALS: BP 133/86; PULSE 99; RESP 28; TEMP 36.4
[2024-09-13 06:00] VITALS: BP 117/82; PULSE 87; RESP 20; TEMP 36.6; O2SAT 99
[2024-09-13] MEDS: SOD PHOS DI, MONO/K PHOS MONO 250 MG TABLET GT (08:06)
[2024-09-13] MEDS: SODIUM CHLORIDE TAB 1,000 MG TABLET.SOL 1000 MG GT ×2 (08:06→20:51)
[2024-09-13] MEDS: ESOMEPRAZOLE 40 MG GT (08:06)
[2024-09-13] MEDS: DEX/HYPRO/GLY ARTIFICAL TEARS 225 DROP/15 ML BTL BOTH EYES ×2 (08:06→20:50)
[2024-09-13] MEDS: MULTIVIT-MIN/IRON FUM/FOLIC AC 1 EACH TABLET GT (08:06)
[2024-09-13 12:39] VITALS: PULSE 114; RESP 18; O2SAT 92
[2024-09-13 17:53] VITALS: BP 102/70; PULSE 109; RESP 17; TEMP 36.1; O2SAT 98
[2024-09-13 19:06] VITALS: PULSE 97; PULSE 99; RESP 18; O2SAT 94
[2024-09-13 20:50] VITALS: BP 155/88; PULSE 109
[2024-09-13] MEDS: LOSARTAN 100 MG TABLET GT (20:50)
[2024-09-13] MEDS: SENNOSIDES 8.6 MG TABLET 17.2 MG GT (20:50)
[2024-09-13] MEDS: ACETAMINOPHEN 325 MG TABLET 650 MG GT (20:51)
[2024-09-14] VITALS: BP 98/69; PULSE 98; RESP 24; TEMP 36.6
[2024-09-14 00:24] VITALS: PULSE 100; PULSE 103; RESP 26; O2SAT 92
[2024-09-14 06:00] VITALS: BP 165/91; PULSE 93; RESP 24; TEMP 36.3; O2SAT 98
[2024-09-14] MEDS: DEX/HYPRO/GLY ARTIFICAL TEARS 225 DROP/15 ML BTL BOTH EYES ×2 (08:48→20:48)
[2024-09-14] MEDS: ESOMEPRAZOLE 40 MG GT (08:49)
[2024-09-14] MEDS: MULTIVIT-MIN/IRON FUM/FOLIC AC 1 EACH TABLET GT (08:49)
[2024-09-14] MEDS: SODIUM CHLORIDE TAB 1,000 MG TABLET.SOL 1000 MG GT ×2 (08:49→20:48)
[2024-09-14] MEDS: SOD PHOS DI, MONO/K PHOS MONO 250 MG TABLET GT (08:49)
[2024-09-14 13:21] VITALS: PULSE 91; RESP 20; O2SAT 94
[2024-09-14 20:48] VITALS: BP 123/81; PULSE 98
[2024-09-14] MEDS: SENNOSIDES 8.6 MG TABLET 17.2 MG GT (20:48)
[2024-09-14] MEDS: LOSARTAN 100 MG TABLET GT (20:48)
--- NOTE | 2024-09-14 22:29 | ESPR_ITS ---
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 (2) Epilepsy, unspecified, not intractable, without status epilepticus: Status: Chronic (3) Essential (primary) hypertension: Status: Chronic (4) Tracheostomy status: Status: Chronic (5) Gastrostomy status: Status: Chronic (6) Chronic respiratory failure, unspecified whether with hypoxia or hypercapnia: Status: Chronic (7) Chronic hyponatremia: Status: Chronic SUBJECTIVE Fever:: none GI:: none Shortness of Breath:: none GI:: no complaints Pain:: none OBJECTIVE Most recent vital signs: Last Vital Signs Temp 97.3 F 09/14/24 06:00 Pulse 98 09/14/24 20:48 Resp 20 09/14/24 13:21 BP 123/81 09/14/24 20:48 Pulse Ox 94 L 09/14/24 13:21 O2 Del Method Blow-by 09/13/24 17:53 O2 Flow Rate 8 09/14/24 13:21 FiO2 30 09/14/24 13:21 Neurological:: alert Speech:: nods head, mouths words (sometimes) and appropriate Answers questions:: sometimes Respiratory:: shallow breathing Cardiovascular: RRR Abdomen: soft and nontender Extremities:: deformities Decubitus:: none Tracheostomy:: to blow by Feeding per:: G tube Complaints:: none ASSESSMENT & PLAN Assessment: 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 No pain issues, and remains comfortable. Ice chips for some oral gratification tried with success without any cough or aspiration and continued.Remains fully dependent for care. interacts some and mostly happy. Tendency for Hypo-natremia on labs being monitored and addressed. No clinical change. Electrolytes improved. monitored regularly. Pt remains fully dependent for care. No discomfort / pain. VSS. No new issues Plan: All treatment reviewed and continued.
[2024-09-15] VITALS (7 sets, daily range): BP systolic 113–166; BP diastolic 72–97; PULSE 68–97; RESP 18–21; TEMP 36.1–36.3; O2SAT 95–99
[2024-09-15] MEDS: ESOMEPRAZOLE 40 MG GT (08:21)
[2024-09-15] MEDS: SODIUM CHLORIDE TAB 1,000 MG TABLET.SOL 1000 MG GT ×2 (08:21→20:46)
[2024-09-15] MEDS: SOD PHOS DI, MONO/K PHOS MONO 250 MG TABLET GT (08:21)
[2024-09-15] MEDS: MULTIVIT-MIN/IRON FUM/FOLIC AC 1 EACH TABLET GT (08:21)
[2024-09-15] MEDS: DEX/HYPRO/GLY ARTIFICAL TEARS 225 DROP/15 ML BTL BOTH EYES ×2 (08:21→20:45)
[2024-09-15] MEDS: SENNOSIDES 8.6 MG TABLET 17.2 MG GT (20:46)
[2024-09-15] MEDS: LOSARTAN 100 MG TABLET GT (20:46)
[2024-09-16] VITALS: BP 113/76; PULSE 92; RESP 16; TEMP 36.3
[2024-09-16 05:44] VITALS: BP 120/79; PULSE 101; RESP 18; TEMP 36.2; O2SAT 97
[2024-09-16] MEDS: DEX/HYPRO/GLY ARTIFICAL TEARS 225 DROP/15 ML BTL BOTH EYES (08:10)
[2024-09-16] MEDS: CARBAMIDE PEROXIDE OTIC SOL 15 ML BTL 5 DROP BOTH EARS (08:10)
[2024-09-16] MEDS: ESOMEPRAZOLE 40 MG GT (08:11)
[2024-09-16] MEDS: SOD PHOS DI, MONO/K PHOS MONO 250 MG TABLET GT (08:11)
[2024-09-16] MEDS: MULTIVIT-MIN/IRON FUM/FOLIC AC 1 EACH TABLET GT (08:11)
[2024-09-16] MEDS: SODIUM CHLORIDE TAB 1,000 MG TABLET.SOL 1000 MG GT ×2 (08:11→21:02)
[2024-09-16 12:00] VITALS: BP 148/85; PULSE 87; RESP 17; TEMP 36.8
[2024-09-16 18:00] VITALS: BP 103/70; PULSE 108; RESP 17; TEMP 36.3; O2SAT 96
[2024-09-16] MEDS: ALBUTEROL INHALER 200 PUFF/INH INHALER INH (19:18)
[2024-09-16 19:19] VITALS: PULSE 129; PULSE 130; RESP 19; O2SAT 96
[2024-09-16] MEDS: IPRATROPIUM BROMIDE 200 PUFF/INH INHALER INH (19:19)
[2024-09-16 21:01] VITALS: BP 122/80; PULSE 102
[2024-09-16] MEDS: LOSARTAN 100 MG TABLET GT (21:01)
[2024-09-16] MEDS: SENNOSIDES 8.6 MG TABLET 17.2 MG GT (21:02)
[2024-09-16] MEDS: ACETAMINOPHEN 325 MG TABLET 650 MG GT (21:03)
[2024-09-17] VITALS (8 sets, daily range): BP systolic 89–137; BP diastolic 67–84; PULSE 73–109; RESP 17–26; TEMP 36.1–38.3; O2SAT 92
[2024-09-17 00:59] LABS: COVID-19 Antigen (In-House) Negative (Negative)
[2024-09-17 01:28] LABS: Influenza A Ag Negative; Influenza B Ag Negative
[2024-09-17 01:32] LABS: Basophils # (Auto) 0.1 Thou/mm3 (0.0-0.2); Basophils % (Auto) 0 % (0-2.5); Eosinophils # (Auto) 0.0 Thou/mm3 (0.0-0.5); Eosinophils % (Auto) 0 % (0-10); Hematocrit 37.5 % (36.0-46.0); Hemoglobin 12.7 g/dL (12.0-16.0); Immature Granulocytes Auto 0.12 Thou/mm3 (0.00-0.00); Lymphocytes # (Auto) 1.3 Thou/mm3 (1.0-4.8); Lymphocytes % (Auto) 5 % (10-50); Mean Corpuscular HGB Conc 33.9 g/dl (31.0-37.0); Mean Corpuscular Hemoglobin 30.0 pg (25.0-35.0); Mean Corpuscular Volume 89 fL (80-100); Monocytes # (Auto) 1.4 Thou/mm3 (0.0-0.8); Monocytes % (Auto) 5 % (0-12); Neutrophils # (Auto) 24.6 Thou/mm3 (1.8-7.7); Neutrophils % (Auto) 89 % (37-80); Nucleated Red Blood Cell # 0.00 Thou/mm3 (0.00-0.00); Nucleated Red Blood Cell % 0 /100 WBC (0); Platelet Count 319 Thou/mm3 (140-440); RDW Standard Deviation 41.7 fL (36.4-46.3); Red Blood Count 4.23 Miln/mm3 (4.00-5.20)
[2024-09-17 01:35] LABS: White Blood Count 27.5 Thou/mm3 (3.6-11.0)
[2024-09-17 02:02] LABS: Collection Type, Urine Catheter; Squamous Epithelial Cell,Urine 0 /hpf (0-5)
--- NOTE | 2024-09-17 02:03 | PC.RT ---
0030 sputum collected and sent to lab.
[2024-09-17 02:05] LABS: Procalcitonin 0.78 ng/ml (0.0-0.49)
[2024-09-17 02:06] LABS: Bilirubin,Urine Negative (Negative); Blood,Urine Negative (Negative); Clarity,Urine Clear (Clear/Hazy); Color,Urine Yellow (Lt Yel-Yel); Glucose, Urine Negative (Negative); Hyaline Casts,Urine < 1 /hpf (0-1); Ketones,Urine Negative (Negative); Leukocyte Esterase,Urine Negative (Negative); Nitrite,Urine Negative (Negative); PH,Urine 5.5 (5.0-7.0); Protein,Urine 1+ (Neg - Trace); RBC,Urine 1 /hpf (0-3); Specific Gravity,Urine 1.023 (1.001-1.035); Urobilinogen,Urine Negative mg/dL (0.0-1.0); WBC,Urine 4 /hpf (0-5)
--- NOTE | 2024-09-17 03:09 | PC.NURSE ---
DR. MARY CALLED AT 0230 TO REVIEW LAB RESULTS. NEW ORDER FOR ROCEPHIN IV DAILY RECEIVED. RESIDENT HAD FEVER 101.8 BP 105/68 HR 101 RR 26. RESIDENT AWAKE, NO DISTRESS NOTED AT THIS TIME.
[2024-09-17] MEDS: cefTRIAXone 1,000 MG in SODIUM CHLORIDE 0.9% (Popper) 50 ML 100 MG IV (04:59)
--- NOTE | 2024-09-17 05:05 | PC.NURSE ---
RESIDENT RECEIVED ROCEPHIN IV. NO ADVERSE REACTION NOTED. TOLERATED WELL. NO FEVER AT THIS TIME. NO S/S DISCOMFORT. RESIDENT AWAKE, ALERT.
[2024-09-17] MEDS: ALBUTEROL INHALER 200 PUFF/INH INHALER INH (05:51)
[2024-09-17] MEDS: IPRATROPIUM BROMIDE 200 PUFF/INH INHALER INH (05:51)
--- NOTE | 2024-09-17 06:36 | PC.NURSE ---
SONIA HOWARD NOTIFIED. INFORMED THAT RESIDENT HAD A FEVER AND LABS WERE TAKEN. ORDERED ROCEPHIN IV. DAUGHTER WAS APPRECIATIVE OF THE CALL. DISCUSSED POC AND NO QUESTIONS AT THIS TIME.
[2024-09-17] MEDS: ESOMEPRAZOLE 40 MG GT (09:18)
[2024-09-17] MEDS: SODIUM CHLORIDE TAB 1,000 MG TABLET.SOL 1000 MG GT ×2 (09:19→20:40)
[2024-09-17] MEDS: SOD PHOS DI, MONO/K PHOS MONO 250 MG TABLET GT (09:19)
[2024-09-17] MEDS: MULTIVIT-MIN/IRON FUM/FOLIC AC 1 EACH TABLET GT (09:19)
[2024-09-17] MEDS: SENNOSIDES 8.6 MG TABLET 17.2 MG GT (21:01)
[2024-09-17] MEDS: DEX/HYPRO/GLY ARTIFICAL TEARS 225 DROP/15 ML BTL BOTH EYES (21:01)
[2024-09-18] VITALS: BP 106/70; PULSE 97; RESP 18; TEMP 36.6; O2SAT 98
--- NOTE | 2024-09-18 05:35 | PC.NURSE ---
RESIDENT NO SIGN OF DISCOMFORT/DISTRESS. NO ADVERSE REACTION TO ROCEPHIN NOTED. NO FEVER.
[2024-09-18 06:00] VITALS: BP 107/71; PULSE 101; RESP 22; TEMP 36.4; O2SAT 97
[2024-09-18 06:57] VITALS: PULSE 101; RESP 18; O2SAT 97
[2024-09-18] MEDS: cefTRIAXone 1,000 MG in SODIUM CHLORIDE 0.9% (Popper) 50 ML 100 MG IV (09:00)
[2024-09-18] MEDS: SOD PHOS DI, MONO/K PHOS MONO 250 MG TABLET GT (09:09)
[2024-09-18] MEDS: SODIUM CHLORIDE TAB 1,000 MG TABLET.SOL 1000 MG GT ×2 (09:09→20:43)
[2024-09-18] MEDS: MULTIVIT-MIN/IRON FUM/FOLIC AC 1 EACH TABLET GT (09:09)
[2024-09-18] MEDS: ESOMEPRAZOLE 40 MG GT (09:09)
[2024-09-18] MEDS: DEX/HYPRO/GLY ARTIFICAL TEARS 225 DROP/15 ML BTL BOTH EYES ×2 (09:09→20:41)
[2024-09-18 09:22] VITALS: BMI 26.6
--- NOTE | 2024-09-18 10:35 | ESPR_ITS ---
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 (2) Epilepsy, unspecified, not intractable, without status epilepticus: Status: Chronic (3) Essential (primary) hypertension: Status: Chronic (4) Tracheostomy status: Status: Chronic (5) Gastrostomy status: Status: Chronic (6) Chronic respiratory failure, unspecified whether with hypoxia or hypercapnia: Status: Chronic (7) Chronic hyponatremia: Status: Chronic SUBJECTIVE Fever:: none GI:: none Shortness of Breath:: none GI:: no complaints Pain:: none OBJECTIVE Most recent vital signs: Last Vital Signs Temp 97.6 F 09/18/24 06:00 Pulse 101 H 09/18/24 06:57 Resp 18 09/18/24 06:57 BP 107/71 09/18/24 06:00 Pulse Ox 97 09/18/24 06:57 O2 Del Method Blow-by 09/18/24 06:00 O2 Flow Rate 10 09/18/24 06:57 FiO2 40 09/18/24 06:57 Neurological:: alert Speech:: nods head, mouths words (sometimes) and appropriate Answers questions:: sometimes Respiratory:: shallow breathing Cardiovascular: RRR Abdomen: soft and nontender Extremities:: deformities Decubitus:: none Tracheostomy:: to blow by Feeding per:: G tube Complaints:: none ASSESSMENT & PLAN Assessment: 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 No pain issues, and remains comfortable. Ice chips for some oral gratification tried with success without any cough or aspiration and continued.Remains fully dependent for care. interacts some and mostly happy. Tendency for Hypo-natremia on labs being monitored and addressed. No clinical change. Electrolytes improved. monitored regularly. Pt remains fully dependent for care. No discomfort / pain. Plan: All treatment reviewed and continued.
[2024-09-18] MEDS: ALBUTEROL INHALER 200 PUFF/INH INHALER INH (12:10)
[2024-09-18 12:11] VITALS: PULSE 112; RESP 20; O2SAT 93
[2024-09-18] MEDS: ACETAMINOPHEN 325 MG TABLET 650 MG GT ×2 (12:16→20:49)
[2024-09-18 19:15] VITALS: PULSE 91; RESP 18; RESP 20; O2SAT 97
--- NOTE | 2024-09-18 19:23 | PD.SAPROG ---
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 (2) Epilepsy, unspecified, not intractable, without status epilepticus: Status: Chronic (3) Essential (primary) hypertension: Status: Chronic (4) Tracheostomy status: Status: Chronic (5) Gastrostomy status: Status: Chronic (6) Chronic respiratory failure, unspecified whether with hypoxia or hypercapnia: Status: Chronic (7) Chronic hyponatremia: Status: Chronic SUBJECTIVE Fever:: none GI:: none Shortness of Breath:: none GI:: no complaints Pain:: none OBJECTIVE Most recent vital signs: Last Vital Signs Temp 97.6 F 09/18/24 06:00 Pulse 112 H 09/18/24 12:11 Resp 20 09/18/24 12:11 BP 107/71 09/18/24 06:00 Pulse Ox 93 L 09/18/24 12:11 O2 Del Method Blow-by 09/18/24 06:00 O2 Flow Rate 10 09/18/24 12:11 FiO2 40 09/18/24 12:11 Neurological:: alert Speech:: nods head, mouths words (sometimes) and appropriate Answers questions:: sometimes Respiratory:: shallow breathing Cardiovascular: RRR Abdomen: soft and nontender Extremities:: deformities Decubitus:: none Tracheostomy:: to blow by Feeding per:: G tube Complaints:: none ASSESSMENT & PLAN Assessment: Pt fully dependent for long-term care. No pain issues, and remains comfortable. Ice chips for some oral gratification tried with success without any cough or aspiration and continued.Remains fully dependent for care. interacts some and mostly happy. Tendency for Hypo-natremia on labs being monitored and addressed. No clinical change. Electrolytes improved. monitored regularly. Pt remains fully dependent for care. No discomfort / pain. Plan: All treatment reviewed and continued.
[2024-09-18 20:42] VITALS: BP 118/70; PULSE 90
[2024-09-18] MEDS: LOSARTAN 100 MG TABLET GT (20:42)
[2024-09-18] MEDS: SENNOSIDES 8.6 MG TABLET 17.2 MG GT (20:43)
[2024-09-19] VITALS: BP 146/86; PULSE 85; RESP 18; TEMP 36.1
[2024-09-19 04:59] VITALS: BP 125/76; PULSE 82; RESP 18; TEMP 36.4
[2024-09-19] MEDS: cefTRIAXone 1,000 MG in SODIUM CHLORIDE 0.9% (Popper) 50 ML 100 MG IV (09:24)
[2024-09-19] MEDS: MULTIVIT-MIN/IRON FUM/FOLIC AC 1 EACH TABLET GT (09:50)
[2024-09-19] MEDS: SODIUM CHLORIDE TAB 1,000 MG TABLET.SOL 1000 MG GT ×2 (09:50→20:05)
[2024-09-19] MEDS: ESOMEPRAZOLE 40 MG GT (09:50)
[2024-09-19] MEDS: SOD PHOS DI, MONO/K PHOS MONO 250 MG TABLET GT (09:50)
[2024-09-19] MEDS: DEX/HYPRO/GLY ARTIFICAL TEARS 225 DROP/15 ML BTL BOTH EYES ×2 (09:50→20:03)
--- NOTE | 2024-09-19 11:24 | PC.NURSE ---
Resident on Rocephin 1 gm IV daiy, 3 doses were already given. Last fever noted 09/17/24 at 24:00 which is 101.0. Remains stable at this time. Called Dr Gonsalez and verbally reported resident's C& S result. Urine c & s 2,000 colonies mixed mesfin, possible contamination. Sputum c & s pseudomonas aeruginosa 4+, with 2+ WBC. Rocephin noted to be resistant. Order received from Dr Gonsalez to d/c Rocephin and start on Levaquin 500 mg PGT daily x 5 days.
[2024-09-19 12:16] LABS: Basophils # (Auto) 0.0 Thou/mm3 (0.0-0.2); Basophils % (Auto) 0 % (0-2.5); Eosinophils # (Auto) 0.2 Thou/mm3 (0.0-0.5); Eosinophils % (Auto) 2 % (0-10); Hematocrit 33.5 % (36.0-46.0); Hemoglobin 11.6 g/dL (12.0-16.0); Immature Granulocytes Auto 0.03 Thou/mm3 (0.00-0.00); Lymphocytes # (Auto) 1.8 Thou/mm3 (1.0-4.8); Lymphocytes % (Auto) 18 % (10-50); Mean Corpuscular HGB Conc 34.6 g/dl (31.0-37.0); Mean Corpuscular Hemoglobin 30.1 pg (25.0-35.0); Mean Corpuscular Volume 87 fL (80-100); Monocytes # (Auto) 0.8 Thou/mm3 (0.0-0.8); Monocytes % (Auto) 8 % (0-12); Neutrophils # (Auto) 7.2 Thou/mm3 (1.8-7.7); Neutrophils % (Auto) 72 % (37-80); Nucleated Red Blood Cell # 0.00 Thou/mm3 (0.00-0.00); Nucleated Red Blood Cell % 0 /100 WBC (0); Platelet Count 285 Thou/mm3 (140-440); RDW Standard Deviation 40.1 fL (36.4-46.3); Red Blood Count 3.86 Miln/mm3 (4.00-5.20); White Blood Count 10.0 Thou/mm3 (3.6-11.0)
[2024-09-19 12:49] VITALS: PULSE 71; RESP 18; O2SAT 99
[2024-09-19 19:31] VITALS: PULSE 107; RESP 18; O2SAT 99
[2024-09-19] MEDS: ACETAMINOPHEN 325 MG TABLET 650 MG GT (20:02)
--- NOTE | 2024-09-19 20:03 | PC.NURSE ---
First dose of Levaquin pulled from [facility] and administered at 1430. No adverse reactions noted. Afebrile. No respiratory distress. Continue to observe.
[2024-09-19 20:04] VITALS: BP 153/86; PULSE 96
[2024-09-19] MEDS: LOSARTAN 100 MG TABLET GT (20:04)
[2024-09-19] MEDS: SENNOSIDES 8.6 MG TABLET 17.2 MG GT (20:05)
[2024-09-19] MEDS: MAGNESIUM HYDROXIDE 30 ML ORAL SUSP ML GT (20:07)
--- NOTE | 2024-09-19 22:31 | PC.NURSE ---
Antibiotics for pseudomonas in sputum ongoing. No adverse reaction noted. Resident with no s/s of pain or discomfort. Respirations are even and unlabored with SpO2 @95% On blow by @10L 40% FiO2. No cough noted. Small amount of clear, frothy sputum suctioned via trachea. Fluids tolerated well via g-tube. Continuous pulse Ox remains in use. IV to R) forearm D/C'd.
[2024-09-19 23:52] VITALS: BP 134/88; PULSE 92; RESP 19; TEMP 36.4
[2024-09-20] MEDS: ACETAMINOPHEN 325 MG TABLET 650 MG GT ×2 (05:16→17:29)
[2024-09-20 05:46] VITALS: BP 129/87; PULSE 104; RESP 20; TEMP 36.1; O2SAT 99
[2024-09-20 06:42] VITALS: PULSE 92; RESP 16; O2SAT 98
[2024-09-20] MEDS: DEX/HYPRO/GLY ARTIFICAL TEARS 225 DROP/15 ML BTL BOTH EYES ×2 (07:55→21:30)
[2024-09-20] MEDS: ESOMEPRAZOLE 40 MG GT (07:56)
[2024-09-20] MEDS: SOD PHOS DI, MONO/K PHOS MONO 250 MG TABLET GT (07:57)
[2024-09-20] MEDS: SODIUM CHLORIDE TAB 1,000 MG TABLET.SOL 1000 MG GT ×2 (07:59→21:31)
[2024-09-20] MEDS: MULTIVIT-MIN/IRON FUM/FOLIC AC 1 EACH TABLET GT (07:59)
[2024-09-20 12:00] VITALS: BP 145/60; PULSE 66; RESP 22; TEMP 36.2
--- NOTE | 2024-09-20 18:21 | PC.NURSE ---
Resident continues on ABX Levofloxacin 500 mg via g-tube Q Day. No adverse reactions noticed. Afebrile vital signs within parameters. Call light within reach
[2024-09-20 20:09] VITALS: PULSE 88; RESP 16; O2SAT 98
[2024-09-20 21:30] VITALS: BP 144/84; PULSE 92
[2024-09-20] MEDS: CARBAMIDE PEROXIDE OTIC SOL 15 ML BTL 5 DROP BOTH EARS (21:30)
[2024-09-20] MEDS: LOSARTAN 100 MG TABLET GT (21:30)
[2024-09-20] MEDS: SENNOSIDES 8.6 MG TABLET 17.2 MG GT (21:30)
[2024-09-21] VITALS (7 sets, daily range): BP systolic 115–160; BP diastolic 63–94; PULSE 76–100; RESP 16–20; TEMP 35.9–36.3; O2SAT 93–100
--- NOTE | 2024-09-21 03:51 | PC.NURSE ---
Levaquin daily for pseudomonas in sputum ongoing. No adverse reaction noted. Resident with no s/s of pain or discomfort. Respirations are even and unlabored with SpO2 @99% On blow by @10L 40% FiO2. No fever noted.
[2024-09-21] MEDS: CARBAMIDE PEROXIDE OTIC SOL 15 ML BTL 5 DROP BOTH EARS ×2 (08:23→20:02)
[2024-09-21] MEDS: ESOMEPRAZOLE 40 MG GT (08:24)
[2024-09-21] MEDS: SOD PHOS DI, MONO/K PHOS MONO 250 MG TABLET GT (08:24)
[2024-09-21] MEDS: DEX/HYPRO/GLY ARTIFICAL TEARS 225 DROP/15 ML BTL BOTH EYES ×2 (08:24→20:02)
[2024-09-21] MEDS: SODIUM CHLORIDE TAB 1,000 MG TABLET.SOL 1000 MG GT ×2 (08:24→20:03)
[2024-09-21] MEDS: MULTIVIT-MIN/IRON FUM/FOLIC AC 1 EACH TABLET GT (08:24)
[2024-09-21] MEDS: ACETAMINOPHEN 325 MG TABLET 650 MG GT ×2 (10:02→19:59)
[2024-09-21] MEDS: LOSARTAN 100 MG TABLET GT (20:02)
[2024-09-21] MEDS: SENNOSIDES 8.6 MG TABLET 17.2 MG GT (20:03)
--- NOTE | 2024-09-22 05:40 | PC.NURSE ---
Antibiotics for pseudomonis in sputum ongoing. No adverse reaction noted. Respirations even and unlabored with SpO2 @ 98% on 10L, 40% FiO2 via blow by. Continuous pulse Ox remains in use. Bilateral lungs with expiratory wheezes noted. Occasional productive cough noted with small amount of clear sputum suctioned via trach. Fluids tolerated well via g-tube. Medicated x1 this shift for s/s of discomfort as evidenced by facial expressions and elevated heart rate with positive results noted.
[2024-09-22 05:55] VITALS: BP 131/81; PULSE 72; RESP 19; TEMP 36.1; O2SAT 98
[2024-09-22] MEDS: MULTIVIT-MIN/IRON FUM/FOLIC AC 1 EACH TABLET GT (08:06)
[2024-09-22] MEDS: SODIUM CHLORIDE TAB 1,000 MG TABLET.SOL 1000 MG GT ×2 (08:06→20:43)
[2024-09-22] MEDS: DEX/HYPRO/GLY ARTIFICAL TEARS 225 DROP/15 ML BTL BOTH EYES ×2 (08:07→20:41)
[2024-09-22] MEDS: SOD PHOS DI, MONO/K PHOS MONO 250 MG TABLET GT (08:07)
[2024-09-22] MEDS: ESOMEPRAZOLE 40 MG GT (08:07)
[2024-09-22] MEDS: CARBAMIDE PEROXIDE OTIC SOL 15 ML BTL 5 DROP BOTH EARS (08:08)
[2024-09-22 11:38] VITALS: BP 139/83; PULSE 105; RESP 28; TEMP 36.2
--- NOTE | 2024-09-22 16:42 | PC.NURSE ---
Resident continues on antibiotics for positive sputum culture, levofloxacin 1 tab 500mg per g tube daily, no adverse reactions noted, VS stable, afebrile, continue to monitor
[2024-09-22 17:10] VITALS: PULSE 87; RESP 20; O2SAT 100
[2024-09-22 17:34] VITALS: BP 156/80; PULSE 81; RESP 20; TEMP 35.9; O2SAT 100
--- NOTE | 2024-09-22 19:37 | ESPR_ITS ---
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 (2) Epilepsy, unspecified, not intractable, without status epilepticus: Status: Chronic (3) Essential (primary) hypertension: Status: Chronic (4) Tracheostomy status: Status: Chronic (5) Gastrostomy status: Status: Chronic (6) Chronic respiratory failure, unspecified whether with hypoxia or hypercapnia: Status: Chronic (7) Chronic hyponatremia: Status: Chronic SUBJECTIVE Fever:: none GI:: none Shortness of Breath:: none GI:: no complaints Pain:: none OBJECTIVE Most recent vital signs: Last Vital Signs Temp 96.7 F L 09/22/24 17:34 Pulse 81 09/22/24 17:34 Resp 20 09/22/24 17:34 BP 156/80 H 09/22/24 17:34 Pulse Ox 100 09/22/24 17:34 O2 Del Method Blow-by 09/22/24 17:34 O2 Flow Rate 8 09/22/24 17:10 FiO2 30 09/22/24 17:10 Neurological:: alert Speech:: nods head, mouths words (sometimes) and appropriate Answers questions:: sometimes Respiratory:: shallow breathing Cardiovascular: RRR Abdomen: soft and nontender Extremities:: deformities Decubitus:: none Tracheostomy:: to blow by Feeding per:: G tube Complaints:: none ASSESSMENT & PLAN Assessment: Pt fully dependent for residential care. No pain issues, and remains comfortable. Ice chips for some oral gratification tried with success without any cough or aspiration and continued.Remains fully dependent for care. interacts some and mostly happy. Tendency for Hypo-natremia on labs being monitored and addressed. No clinical change. Electrolytes improved. monitored regularly. Pt remains fully dependent for care. No discomfort / pain. Plan: All treatment reviewed and continued.
[2024-09-22 20:41] VITALS: BP 157/96; PULSE 96
[2024-09-22] MEDS: SENNOSIDES 8.6 MG TABLET 17.2 MG GT (20:41)
[2024-09-22] MEDS: LOSARTAN 100 MG TABLET GT (20:41)
[2024-09-22] MEDS: ACETAMINOPHEN 325 MG TABLET 650 MG GT (20:45)
--- NOTE | 2024-09-22 22:28 | PC.NURSE ---
Antibiotics ongoing due to pneumonias in the sputum. No adverse reaction noted. Occasional productive cough noted with clear yellow sputum suctioned via trachea. SpO2 @95-96% on O2 @10L and 40% FiO2 via blow-by. Bilateral lungs with noted scattered rhonchi throughout upper and lower bases. Fluids tolerated well via g-tube. S/S of discomfort noted as evidenced by elevated BP of 157/96 and heart rate of 96. PRN acetaminophen administered as ordered with current heart rated noted at 84 and BP 145/83. Resident repositioned and ADL care provided for comfort with fan on.
[2024-09-23] VITALS (7 sets, daily range): BP systolic 114–155; BP diastolic 80–97; PULSE 78–90; RESP 18–20; TEMP 35.8–36.2; O2SAT 97–99
[2024-09-23] MEDS: ESOMEPRAZOLE 40 MG GT (09:10)
[2024-09-23] MEDS: SOD PHOS DI, MONO/K PHOS MONO 250 MG TABLET GT (09:10)
[2024-09-23] MEDS: MULTIVIT-MIN/IRON FUM/FOLIC AC 1 EACH TABLET GT (09:10)
[2024-09-23] MEDS: DEX/HYPRO/GLY ARTIFICAL TEARS 225 DROP/15 ML BTL BOTH EYES ×2 (09:10→20:40)
[2024-09-23] MEDS: SODIUM CHLORIDE TAB 1,000 MG TABLET.SOL 1000 MG GT ×2 (09:10→20:43)
--- NOTE | 2024-09-23 17:05 | PC.NURSE ---
Resident continues on levoquin for positive sputum cultures, no adverse reactions, VS stable, afebrile, suction prn, on continuous pulse oximetry 02@10L 40% via blow by, bed in low position, call light within reach
[2024-09-23] MEDS: SENNOSIDES 8.6 MG TABLET 17.2 MG GT (20:42)
[2024-09-23] MEDS: LOSARTAN 100 MG TABLET GT (20:42)
[2024-09-24] VITALS: BP 119/81; PULSE 84; RESP 20; TEMP 36.3
[2024-09-24 05:07] VITALS: BP 146/80; PULSE 65; RESP 18; TEMP 36.1; O2SAT 98
[2024-09-24 06:23] VITALS: PULSE 85; RESP 18; O2SAT 97
[2024-09-24] MEDS: ESOMEPRAZOLE 40 MG GT (08:16)
[2024-09-24] MEDS: DEX/HYPRO/GLY ARTIFICAL TEARS 225 DROP/15 ML BTL BOTH EYES (08:16)
[2024-09-24] MEDS: SOD PHOS DI, MONO/K PHOS MONO 250 MG TABLET GT (08:16)
[2024-09-24] MEDS: SODIUM CHLORIDE TAB 1,000 MG TABLET.SOL 1000 MG GT ×2 (08:17→20:14)
[2024-09-24] MEDS: MULTIVIT-MIN/IRON FUM/FOLIC AC 1 EACH TABLET GT (08:17)
[2024-09-24 12:00] VITALS: BP 137/82; PULSE 113; RESP 18; TEMP 36.6
[2024-09-24 17:37] VITALS: BP 118/82; PULSE 97; RESP 17; TEMP 36; O2SAT 98
[2024-09-24 20:13] VITALS: BP 118/70; PULSE 87
[2024-09-24] MEDS: LOSARTAN 100 MG TABLET GT (20:13)
[2024-09-24] MEDS: SENNOSIDES 8.6 MG TABLET 17.2 MG GT (20:14)
[2024-09-25] VITALS (8 sets, daily range): BP systolic 106–139; BP diastolic 73–83; PULSE 80–107; RESP 18–20; TEMP 36.3–36.5; O2SAT 97–98
--- NOTE | 2024-09-25 07:40 | PC.SS ---
Room visit: Resident is laying in bed with head of the bed elevated with call light properly placed with no signs of distress. Resident is non verbal, unable to make needs known. Resident is represented by her daughter. Resident will remain in current care as she has no changes in care or condition. She remains on blow by with trach in place and GT for medication and nutrition. This SSD will continue to make daily contact with resident and will monitor for changes in mood and behavior.
[2024-09-25] MEDS: ESOMEPRAZOLE 40 MG GT (08:07)
[2024-09-25] MEDS: SODIUM CHLORIDE TAB 1,000 MG TABLET.SOL 1000 MG GT ×2 (08:07→20:14)
[2024-09-25] MEDS: SOD PHOS DI, MONO/K PHOS MONO 250 MG TABLET GT (08:07)
[2024-09-25] MEDS: MULTIVIT-MIN/IRON FUM/FOLIC AC 1 EACH TABLET GT (08:07)
[2024-09-25] MEDS: ACETAMINOPHEN 325 MG TABLET 650 MG GT ×2 (14:29→21:14)
[2024-09-25] MEDS: LOSARTAN 100 MG TABLET GT (20:13)
[2024-09-25] MEDS: SENNOSIDES 8.6 MG TABLET 17.2 MG GT (20:14)
[2024-09-26] VITALS (7 sets, daily range): BP systolic 107–128; BP diastolic 75–86; PULSE 84–110; RESP 16–21; TEMP 36.3–36.4; O2SAT 93–97
[2024-09-26] MEDS: ESOMEPRAZOLE 40 MG GT (08:00)
[2024-09-26] MEDS: SOD PHOS DI, MONO/K PHOS MONO 250 MG TABLET GT (08:00)
[2024-09-26] MEDS: MULTIVIT-MIN/IRON FUM/FOLIC AC 1 EACH TABLET GT (08:01)
[2024-09-26] MEDS: SODIUM CHLORIDE TAB 1,000 MG TABLET.SOL 1000 MG GT ×2 (08:06→20:48)
[2024-09-26] MEDS: LOSARTAN 100 MG TABLET GT (20:45)
[2024-09-26] MEDS: SENNOSIDES 8.6 MG TABLET 17.2 MG GT (20:46)
[2024-09-26] MEDS: ACETAMINOPHEN 325 MG TABLET 650 MG GT (20:48)
[2024-09-27 06:00] VITALS: BP 108/84; PULSE 96; RESP 19; TEMP 36.4; O2SAT 98
[2024-09-27 06:43] VITALS: PULSE 94; RESP 18; O2SAT 95
[2024-09-27] MEDS: ESOMEPRAZOLE 40 MG GT (08:19)
[2024-09-27] MEDS: MULTIVIT-MIN/IRON FUM/FOLIC AC 1 EACH TABLET GT (08:19)
[2024-09-27] MEDS: SODIUM CHLORIDE TAB 1,000 MG TABLET.SOL 1000 MG GT ×2 (08:19→20:09)
[2024-09-27] MEDS: SOD PHOS DI, MONO/K PHOS MONO 250 MG TABLET GT (08:19)
[2024-09-27 11:38] VITALS: BP 148/88; PULSE 90; RESP 19; TEMP 36.1
[2024-09-27 17:48] VITALS: BP 164/80; PULSE 85; RESP 21; TEMP 36.2; O2SAT 98
--- NOTE | 2024-09-27 19:56 | ESPR_ITS ---
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 (2) Epilepsy, unspecified, not intractable, without status epilepticus: Status: Chronic (3) Essential (primary) hypertension: Status: Chronic (4) Tracheostomy status: Status: Chronic (5) Gastrostomy status: Status: Chronic (6) Chronic respiratory failure, unspecified whether with hypoxia or hypercapnia: Status: Chronic (7) Chronic hyponatremia: Status: Chronic SUBJECTIVE Fever:: none GI:: none Shortness of Breath:: none GI:: no complaints Pain:: none OBJECTIVE Most recent vital signs: Last Vital Signs Temp 97.2 F 09/27/24 17:48 Pulse 85 09/27/24 17:48 Resp 21 H 09/27/24 17:48 BP 164/80 H 09/27/24 17:48 Pulse Ox 98 09/27/24 17:48 O2 Del Method Blow-by 09/27/24 06:00 O2 Flow Rate 10 09/27/24 06:43 FiO2 35 09/27/24 06:43 Neurological:: alert Speech:: nods head, mouths words (sometimes) and appropriate Answers questions:: sometimes Respiratory:: shallow breathing Cardiovascular: RRR Abdomen: soft and nontender Extremities:: deformities Decubitus:: none Tracheostomy:: to blow by Feeding per:: G tube Complaints:: none ASSESSMENT & PLAN Assessment: Pt fully dependent for retirement care. No pain issues, and remains comfortable. Ice chips for some oral gratification tried with success without any cough or aspiration and continued.Remains fully dependent for care. interacts some and mostly happy. Tendency for Hypo-natremia on labs being monitored and addressed. No clinical change. Electrolytes improved. monitored regularly. Pt remains fully dependent for care. No discomfort / pain. Plan: All treatment reviewed and continued.
[2024-09-27 20:09] VITALS: BP 152/84; PULSE 86
[2024-09-27] MEDS: LOSARTAN 100 MG TABLET GT (20:09)
[2024-09-27] MEDS: SENNOSIDES 8.6 MG TABLET 17.2 MG GT (20:09)
[2024-09-27 23:01] VITALS: PULSE 89; RESP 18; O2SAT 96
[2024-09-28] VITALS (8 sets, daily range): BP systolic 104–165; BP diastolic 73–96; PULSE 76–110; RESP 18–24; TEMP 35.9–36.4; O2SAT 95–98
[2024-09-28] MEDS: SODIUM CHLORIDE TAB 1,000 MG TABLET.SOL 1000 MG GT ×2 (08:01→20:56)
[2024-09-28] MEDS: ESOMEPRAZOLE 40 MG GT (08:02)
[2024-09-28] MEDS: SOD PHOS DI, MONO/K PHOS MONO 250 MG TABLET GT (08:02)
[2024-09-28] MEDS: MULTIVIT-MIN/IRON FUM/FOLIC AC 1 EACH TABLET GT (08:02)
[2024-09-28] MEDS: ACETAMINOPHEN 325 MG TABLET 650 MG GT (11:55)
[2024-09-28] MEDS: LOSARTAN 100 MG TABLET GT (20:55)
[2024-09-28] MEDS: SENNOSIDES 8.6 MG TABLET 17.2 MG GT (20:55)
[2024-09-29] VITALS (7 sets, daily range): BP systolic 98–164; BP diastolic 82–98; PULSE 78–99; RESP 17–20; TEMP 36.1–36.4; O2SAT 95–99
[2024-09-29] MEDS: MULTIVIT-MIN/IRON FUM/FOLIC AC 1 EACH TABLET GT (08:09)
[2024-09-29] MEDS: ESOMEPRAZOLE 40 MG GT (08:09)
[2024-09-29] MEDS: SOD PHOS DI, MONO/K PHOS MONO 250 MG TABLET GT (08:09)
[2024-09-29] MEDS: DEX/HYPRO/GLY ARTIFICAL TEARS 225 DROP/15 ML BTL BOTH EYES ×2 (08:09→21:30)
[2024-09-29] MEDS: SODIUM CHLORIDE TAB 1,000 MG TABLET.SOL 1000 MG GT ×2 (08:09→20:16)
[2024-09-29] MEDS: GENTAMICIN 0.3% OPHTH DROPS 75 DROP/5 ML BTL OPHTHALMIC ×2 (17:00→20:14)
[2024-09-29] MEDS: LOSARTAN 100 MG TABLET GT (20:15)
[2024-09-29] MEDS: SENNOSIDES 8.6 MG TABLET 17.2 MG GT (20:15)
[2024-09-29] MEDS: ACETAMINOPHEN 325 MG TABLET 650 MG GT (20:17)
[2024-09-30] VITALS (7 sets, daily range): BP systolic 117–165; BP diastolic 86–90; PULSE 80–98; RESP 17–22; TEMP 36.3–36.5; O2SAT 96–99
--- NOTE | 2024-09-30 00:27 | PC.NURSE ---
Antibiotic eye drops continue to both eyes. Eyes remain reddened, no drainage noted. No s/s of discomfort noted.
[2024-09-30] MEDS: IPRATROPIUM BROMIDE 200 PUFF/INH INHALER INH (04:40)
[2024-09-30] MEDS: ALBUTEROL INHALER 200 PUFF/INH INHALER INH (04:43)
[2024-09-30] MEDS: GENTAMICIN 0.3% OPHTH DROPS 75 DROP/5 ML BTL OPHTHALMIC ×4 (05:10→20:14)
[2024-09-30 07:59] LABS: Albumin, Serum 4.3 gm/dL (3.4-4.8); Anion Gap 5 (7-16); BUN/Creatinine Ratio 35 Ratio (12-20); Blood Urea Nitrogen 14 mg/dL (9-23); Calcium 9.4 mg/dL (8.3-10.6); Calcium (Corrected) 9.4 mg/dL (8.5-10.1); Carbon Dioxide 28.7 mMol/L (20.0-31.0); Chloride 93 mMol/L (98-107); Creatinine (Component) 0.4 mg/dL (0.6-1.3); Estimated Creatinine Clearance 99.5 mL/min (>60); Glucose 105 mg/dL (74-106); Osmolality,Calculated 255 (275-295); Phosphorous 4.0 mg/dL (2.4-5.1); Potassium 5.2 mMol/L (3.4-5.1); Sodium 127 mMol/L (136-145); eGFR > 60 See Note
[2024-09-30] MEDS: DEX/HYPRO/GLY ARTIFICAL TEARS 225 DROP/15 ML BTL BOTH EYES ×2 (09:17→21:23)
[2024-09-30] MEDS: ESOMEPRAZOLE 40 MG GT (09:18)
[2024-09-30] MEDS: MULTIVIT-MIN/IRON FUM/FOLIC AC 1 EACH TABLET GT (09:18)
[2024-09-30] MEDS: SODIUM CHLORIDE TAB 1,000 MG TABLET.SOL 1000 MG GT ×2 (09:18→20:17)
[2024-09-30] MEDS: SOD PHOS DI, MONO/K PHOS MONO 250 MG TABLET GT (09:18)
[2024-09-30] MEDS: SENNOSIDES 8.6 MG TABLET 17.2 MG GT (20:15)
[2024-09-30] MEDS: LOSARTAN 100 MG TABLET GT (20:15)
[2024-09-30] MEDS: ACETAMINOPHEN 325 MG TABLET 650 MG GT (20:17)
[2024-10-01] VITALS (8 sets, daily range): BP systolic 118–134; BP diastolic 71–84; PULSE 78–125; RESP 18–36; TEMP 36.6–38.5; O2SAT 96–98
[2024-10-01] MEDS: GENTAMICIN 0.3% OPHTH DROPS 75 DROP/5 ML BTL OPHTHALMIC ×4 (05:19→20:36)
[2024-10-01] MEDS: DEX/HYPRO/GLY ARTIFICAL TEARS 225 DROP/15 ML BTL BOTH EYES ×2 (07:56→20:36)
[2024-10-01] MEDS: SOD PHOS DI, MONO/K PHOS MONO 250 MG TABLET GT (07:57)
[2024-10-01] MEDS: ESOMEPRAZOLE 40 MG GT (07:57)
[2024-10-01] MEDS: MULTIVIT-MIN/IRON FUM/FOLIC AC 1 EACH TABLET GT (07:57)
[2024-10-01] MEDS: SODIUM CHLORIDE TAB 1,000 MG TABLET.SOL 1000 MG GT ×2 (07:57→20:38)
[2024-10-01] MEDS: ACETAMINOPHEN 325 MG TABLET 650 MG GT (15:57)
--- NOTE | 2024-10-01 17:12 | PC.NURSE ---
Nurse Lema reported resident with increased temperature of 101.3 rectally, cooling measures done and Tylenol given for discomfort, will re-assess temperature again.
[2024-10-01] MEDS: IPRATROPIUM BROMIDE 200 PUFF/INH INHALER INH (18:06)
[2024-10-01] MEDS: ALBUTEROL INHALER 200 PUFF/INH INHALER INH (18:06)
[2024-10-01] MEDS: LOSARTAN 100 MG TABLET GT (20:37)
[2024-10-01] MEDS: SENNOSIDES 8.6 MG TABLET 17.2 MG GT (20:38)
--- NOTE | 2024-10-01 20:49 | PD.SAPROG ---
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 (2) Epilepsy, unspecified, not intractable, without status epilepticus: Status: Chronic (3) Essential (primary) hypertension: Status: Chronic (4) Tracheostomy status: Status: Chronic (5) Gastrostomy status: Status: Chronic (6) Chronic respiratory failure, unspecified whether with hypoxia or hypercapnia: Status: Chronic (7) Chronic hyponatremia: Status: Chronic SUBJECTIVE Fever:: none GI:: none Shortness of Breath:: none GI:: no complaints Pain:: none OBJECTIVE Most recent vital signs: Last Vital Signs Temp 99.3 F 10/01/24 17:41 Pulse 120 H 10/01/24 20:37 Resp 21 H 10/01/24 18:06 BP 118/71 10/01/24 20:37 Pulse Ox 96 10/01/24 18:06 O2 Del Method Blow-by 09/30/24 18:00 O2 Flow Rate 10 10/01/24 18:06 FiO2 35 10/01/24 18:06 Neurological:: alert Speech:: nods head, mouths words (sometimes) and appropriate Answers questions:: sometimes Respiratory:: shallow breathing Cardiovascular: RRR Abdomen: soft and nontender Extremities:: deformities Decubitus:: none Tracheostomy:: to blow by Feeding per:: G tube Complaints:: none ASSESSMENT & PLAN Assessment: Pt fully dependent for nursing home care. No pain issues, and remains comfortable. Ice chips for some oral gratification tried with success without any cough or aspiration and continued.Remains fully dependent for care. interacts some and mostly happy. Tendency for Hypo-natremia on labs being monitored and addressed. No clinical change. Electrolytes improved. monitored regularly. Pt remains fully dependent for care. No discomfort / pain. Plan: All treatment reviewed and continued.
[2024-10-02] VITALS (7 sets, daily range): BP systolic 96–119; BP diastolic 65–79; PULSE 90–110; RESP 18–24; TEMP 36.3–36.6; O2SAT 92–99; BMI 26.4
[2024-10-02] MEDS: ACETAMINOPHEN 325 MG TABLET 650 MG GT ×3 (00:15→20:12)
[2024-10-02] MEDS: GENTAMICIN 0.3% OPHTH DROPS 75 DROP/5 ML BTL OPHTHALMIC ×4 (05:29→20:09)
--- NOTE | 2024-10-02 07:50 | PC.SS ---
Room visit: Resident is laying in bed with head of the bed elevated with call light properly placed with no signs of distress. Resident remains on blow by with trach in place and GT for medication and nutrition. She is unable to make needs known, she is represented by her daughter who makes all decisions for her. Resident will remain in current care and will continue to have all subacute care needs met by staff. This SSD will continue to make contact with resident and offer support as needed.
[2024-10-02] MEDS: DEX/HYPRO/GLY ARTIFICAL TEARS 225 DROP/15 ML BTL BOTH EYES ×2 (08:50→20:11)
[2024-10-02] MEDS: ESOMEPRAZOLE 40 MG GT (08:51)
[2024-10-02] MEDS: SOD PHOS DI, MONO/K PHOS MONO 250 MG TABLET GT (08:51)
[2024-10-02] MEDS: MULTIVIT-MIN/IRON FUM/FOLIC AC 1 EACH TABLET GT (08:51)
[2024-10-02] MEDS: SODIUM CHLORIDE TAB 1,000 MG TABLET.SOL 1000 MG GT ×2 (08:51→20:11)
[2024-10-02] MEDS: LOSARTAN 100 MG TABLET GT (20:10)
[2024-10-02] MEDS: SENNOSIDES 8.6 MG TABLET 17.2 MG GT (20:10)
[2024-10-03 03:26] VITALS: PULSE 92; RESP 18; O2SAT 97
[2024-10-03 05:10] VITALS: BP 109/61; PULSE 88; RESP 20; TEMP 36.5; O2SAT 97
[2024-10-03 06:51] VITALS: PULSE 113; RESP 18; O2SAT 99
[2024-10-03] MEDS: DEX/HYPRO/GLY ARTIFICAL TEARS 225 DROP/15 ML BTL BOTH EYES ×2 (08:53→20:23)
[2024-10-03] MEDS: MULTIVIT-MIN/IRON FUM/FOLIC AC 1 EACH TABLET GT (08:54)
[2024-10-03] MEDS: SODIUM CHLORIDE TAB 1,000 MG TABLET.SOL 1000 MG GT ×2 (08:54→20:24)
[2024-10-03] MEDS: SOD PHOS DI, MONO/K PHOS MONO 250 MG TABLET GT (08:54)
[2024-10-03] MEDS: ESOMEPRAZOLE 40 MG GT (08:54)
[2024-10-03 12:00] VITALS: BP 132/83; PULSE 85; RESP 18; TEMP 36.3
[2024-10-03 17:45] VITALS: BP 123/78; PULSE 75; RESP 19; TEMP 36.3; O2SAT 96
[2024-10-03 20:23] VITALS: BP 126/86; PULSE 89
[2024-10-03] MEDS: GENTAMICIN 0.3% OPHTH DROPS 75 DROP/5 ML BTL OPHTHALMIC (20:23)
[2024-10-03] MEDS: SENNOSIDES 8.6 MG TABLET 17.2 MG GT (20:23)
[2024-10-03] MEDS: LOSARTAN 100 MG TABLET GT (20:23)
[2024-10-04] VITALS (7 sets, daily range): BP systolic 125–137; BP diastolic 83–92; PULSE 87–105; RESP 18–24; TEMP 36.1–36.3; O2SAT 95–98
[2024-10-04] MEDS: GENTAMICIN 0.3% OPHTH DROPS 75 DROP/5 ML BTL OPHTHALMIC ×4 (05:02→20:57)
[2024-10-04] MEDS: MULTIVIT-MIN/IRON FUM/FOLIC AC 1 EACH TABLET GT (09:05)
[2024-10-04] MEDS: SODIUM CHLORIDE TAB 1,000 MG TABLET.SOL 1000 MG GT ×2 (09:05→20:58)
[2024-10-04] MEDS: DEX/HYPRO/GLY ARTIFICAL TEARS 225 DROP/15 ML BTL BOTH EYES ×2 (09:05→20:57)
[2024-10-04] MEDS: SOD PHOS DI, MONO/K PHOS MONO 250 MG TABLET GT (09:05)
[2024-10-04] MEDS: ESOMEPRAZOLE 40 MG GT (09:05)
[2024-10-04] MEDS: LOSARTAN 100 MG TABLET GT (20:57)
[2024-10-04] MEDS: SENNOSIDES 8.6 MG TABLET 17.2 MG GT (20:58)
[2024-10-04] MEDS: ACETAMINOPHEN 325 MG TABLET 650 MG GT (20:59)
[2024-10-05] VITALS (8 sets, daily range): BP systolic 129–174; BP diastolic 75–93; PULSE 71–97; RESP 18–24; TEMP 36.1–36.2; O2SAT 96–99
[2024-10-05] MEDS: GENTAMICIN 0.3% OPHTH DROPS 75 DROP/5 ML BTL OPHTHALMIC ×4 (05:15→21:37)
[2024-10-05] MEDS: DEX/HYPRO/GLY ARTIFICAL TEARS 225 DROP/15 ML BTL BOTH EYES ×2 (09:15→21:38)
[2024-10-05] MEDS: MULTIVIT-MIN/IRON FUM/FOLIC AC 1 EACH TABLET GT (09:15)
[2024-10-05] MEDS: ESOMEPRAZOLE 40 MG GT (09:15)
[2024-10-05] MEDS: SODIUM CHLORIDE TAB 1,000 MG TABLET.SOL 1000 MG GT ×2 (09:15→21:39)
[2024-10-05] MEDS: SOD PHOS DI, MONO/K PHOS MONO 250 MG TABLET GT (09:15)
[2024-10-05] MEDS: ACETAMINOPHEN 325 MG TABLET 650 MG GT (21:37)
[2024-10-05] MEDS: SENNOSIDES 8.6 MG TABLET 17.2 MG GT (21:39)
[2024-10-05] MEDS: LOSARTAN 100 MG TABLET GT (21:39)
[2024-10-06] VITALS (7 sets, daily range): BP systolic 116–162; BP diastolic 64–85; PULSE 64–103; RESP 17–20; TEMP 36.1–36.2; O2SAT 95–99
[2024-10-06] MEDS: GENTAMICIN 0.3% OPHTH DROPS 75 DROP/5 ML BTL OPHTHALMIC ×2 (06:56→12:25)
[2024-10-06] MEDS: ESOMEPRAZOLE 40 MG GT (08:44)
[2024-10-06] MEDS: SOD PHOS DI, MONO/K PHOS MONO 250 MG TABLET GT (08:45)
[2024-10-06] MEDS: SODIUM CHLORIDE TAB 1,000 MG TABLET.SOL 1000 MG GT ×2 (08:46→20:45)
[2024-10-06] MEDS: MULTIVIT-MIN/IRON FUM/FOLIC AC 1 EACH TABLET GT (08:46)
[2024-10-06] MEDS: DEX/HYPRO/GLY ARTIFICAL TEARS 225 DROP/15 ML BTL BOTH EYES (20:38)
[2024-10-06] MEDS: LOSARTAN 100 MG TABLET GT (20:43)
[2024-10-06] MEDS: SENNOSIDES 8.6 MG TABLET 17.2 MG GT (20:45)
[2024-10-06] MEDS: ACETAMINOPHEN 325 MG TABLET 650 MG GT (20:46)
--- NOTE | 2024-10-06 20:51 | PD.SAPROG ---
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 (2) Epilepsy, unspecified, not intractable, without status epilepticus: Status: Chronic (3) Essential (primary) hypertension: Status: Chronic (4) Tracheostomy status: Status: Chronic (5) Gastrostomy status: Status: Chronic (6) Chronic respiratory failure, unspecified whether with hypoxia or hypercapnia: Status: Chronic (7) Chronic hyponatremia: Status: Chronic SUBJECTIVE Fever:: none GI:: none Shortness of Breath:: none GI:: no complaints Pain:: none OBJECTIVE Most recent vital signs: Last Vital Signs Temp 97 F 10/06/24 18:00 Pulse 103 H 10/06/24 20:43 Resp 20 10/06/24 18:04 BP 116/64 10/06/24 20:43 Pulse Ox 95 10/06/24 18:04 O2 Del Method Blow-by 10/03/24 17:45 O2 Flow Rate 10 10/06/24 18:04 FiO2 35 10/06/24 18:04 Neurological:: alert Speech:: nods head, mouths words (sometimes) and appropriate Answers questions:: sometimes Respiratory:: shallow breathing Cardiovascular: RRR Abdomen: soft and nontender Extremities:: deformities Decubitus:: none Tracheostomy:: to blow by Feeding per:: G tube Complaints:: none ASSESSMENT & PLAN Assessment: 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 No pain issues, and remains comfortable. Ice chips for some oral gratification tried with success without any cough or aspiration and continued.Remains fully dependent for care. interacts some and mostly happy. Tendency for Hypo-natremia on labs being monitored and addressed. No clinical change. Electrolytes improved. monitored regularly. Pt remains fully dependent for care. No discomfort / pain. Plan: All treatment reviewed and continued.
[2024-10-07] VITALS (8 sets, daily range): BP systolic 126–163; BP diastolic 64–88; PULSE 68–99; RESP 17–20; TEMP 36–36.6; O2SAT 96
[2024-10-07] MEDS: DEX/HYPRO/GLY ARTIFICAL TEARS 225 DROP/15 ML BTL BOTH EYES ×2 (08:39→20:29)
[2024-10-07] MEDS: MULTIVIT-MIN/IRON FUM/FOLIC AC 1 EACH TABLET GT (08:40)
[2024-10-07] MEDS: ESOMEPRAZOLE 40 MG GT (08:40)
[2024-10-07] MEDS: SOD PHOS DI, MONO/K PHOS MONO 250 MG TABLET GT (08:40)
[2024-10-07] MEDS: SODIUM CHLORIDE TAB 1,000 MG TABLET.SOL 1000 MG GT ×2 (08:41→20:32)
[2024-10-07] MEDS: LOSARTAN 100 MG TABLET GT (20:30)
[2024-10-07] MEDS: SENNOSIDES 8.6 MG TABLET 17.2 MG GT (20:31)
--- NOTE | 2024-10-07 23:16 | PD.SAPROG ---
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 (2) Epilepsy, unspecified, not intractable, without status epilepticus: Status: Chronic (3) Essential (primary) hypertension: Status: Chronic (4) Tracheostomy status: Status: Chronic (5) Gastrostomy status: Status: Chronic (6) Chronic respiratory failure, unspecified whether with hypoxia or hypercapnia: Status: Chronic (7) Chronic hyponatremia: Status: Chronic SUBJECTIVE Fever:: none GI:: none Shortness of Breath:: none GI:: no complaints Pain:: none OBJECTIVE Most recent vital signs: Last Vital Signs Temp 96.8 F 10/07/24 17:55 Pulse 69 10/07/24 20:30 Resp 18 10/07/24 19:58 BP 126/64 10/07/24 20:30 Pulse Ox 96 10/07/24 19:58 O2 Del Method Blow-by 10/03/24 17:45 O2 Flow Rate 10 10/07/24 19:58 FiO2 35 10/07/24 19:58 Neurological:: alert Speech:: nods head, mouths words (sometimes) and appropriate Answers questions:: sometimes Respiratory:: shallow breathing Cardiovascular: RRR Abdomen: soft and nontender Extremities:: deformities Decubitus:: none Tracheostomy:: to blow by Feeding per:: G tube Complaints:: none ASSESSMENT & PLAN Assessment: 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 No pain issues, and remains comfortable. Ice chips for some oral gratification tried with success without any cough or aspiration and continued.Remains fully dependent for care. interacts some and mostly happy. Tendency for Hypo-natremia on labs being monitored and addressed. No clinical change. Electrolytes improved. monitored regularly. Pt remains fully dependent for care. No discomfort / pain. VSS Plan: All treatment reviewed and continued.
[2024-10-08] VITALS (7 sets, daily range): BP systolic 125–164; BP diastolic 80–97; PULSE 85–123; RESP 17–20; TEMP 36–36.5; O2SAT 96–98
[2024-10-08] MEDS: ESOMEPRAZOLE 40 MG GT (08:26)
[2024-10-08] MEDS: SOD PHOS DI, MONO/K PHOS MONO 250 MG TABLET GT (08:27)
[2024-10-08] MEDS: MINERAL OIL OP ×2 (08:27→21:18)
[2024-10-08] MEDS: PETROLATUM OP ×2 (08:27→21:18)
[2024-10-08] MEDS: MULTIVIT-MIN/IRON FUM/FOLIC AC 1 EACH TABLET GT (08:28)
[2024-10-08] MEDS: SODIUM CHLORIDE TAB 1,000 MG TABLET.SOL 1000 MG GT ×2 (08:28→21:18)
[2024-10-08] MEDS: LOSARTAN 100 MG TABLET GT (21:17)
[2024-10-08] MEDS: SENNOSIDES 8.6 MG TABLET 17.2 MG GT (21:18)
[2024-10-08] MEDS: ACETAMINOPHEN 325 MG TABLET 650 MG GT (23:45)
[2024-10-09] VITALS (7 sets, daily range): BP systolic 118–157; BP diastolic 75–96; PULSE 83–98; RESP 17–22; TEMP 36.3–36.5; O2SAT 94–98
[2024-10-09] MEDS: ESOMEPRAZOLE 40 MG GT (09:04)
[2024-10-09] MEDS: MINERAL OIL OP ×2 (09:05→21:00)
[2024-10-09] MEDS: SOD PHOS DI, MONO/K PHOS MONO 250 MG TABLET GT (09:05)
[2024-10-09] MEDS: PETROLATUM OP ×2 (09:05→21:00)
[2024-10-09] MEDS: SODIUM CHLORIDE TAB 1,000 MG TABLET.SOL 1000 MG GT ×2 (09:06→21:01)
[2024-10-09] MEDS: MULTIVIT-MIN/IRON FUM/FOLIC AC 1 EACH TABLET GT (09:06)
[2024-10-09] MEDS: LOSARTAN 100 MG TABLET GT (21:00)
[2024-10-09] MEDS: SENNOSIDES 8.6 MG TABLET 17.2 MG GT (21:00)
[2024-10-09] MEDS: ACETAMINOPHEN 325 MG TABLET 650 MG GT (21:01)
[2024-10-10] VITALS: BP 121/82; PULSE 75; RESP 22; TEMP 36.3
[2024-10-10 06:00] VITALS: BP 139/82; PULSE 82; RESP 20; TEMP 36.2; O2SAT 96
[2024-10-10 07:30] VITALS: PULSE 49; RESP 18; O2SAT 99
[2024-10-10] MEDS: MINERAL OIL OP ×2 (09:00→20:21)
[2024-10-10] MEDS: ESOMEPRAZOLE 40 MG GT (09:00)
[2024-10-10] MEDS: SOD PHOS DI, MONO/K PHOS MONO 250 MG TABLET GT (09:00)
[2024-10-10] MEDS: PETROLATUM OP ×2 (09:00→20:21)
[2024-10-10] MEDS: MULTIVIT-MIN/IRON FUM/FOLIC AC 1 EACH TABLET GT (09:01)
[2024-10-10] MEDS: SODIUM CHLORIDE TAB 1,000 MG TABLET.SOL 1000 MG GT ×2 (09:01→20:21)
[2024-10-10 12:00] VITALS: BP 161/83; PULSE 83; RESP 20; TEMP 36.3
[2024-10-10 17:53] VITALS: BP 162/85; PULSE 84; RESP 19; TEMP 36.1
[2024-10-10 20:21] VITALS: BP 132/90; PULSE 84
[2024-10-10] MEDS: SENNOSIDES 8.6 MG TABLET 17.2 MG GT (20:21)
[2024-10-10] MEDS: LOSARTAN 100 MG TABLET GT (20:21)
[2024-10-10] MEDS: ACETAMINOPHEN 325 MG TABLET 650 MG GT (20:30)
[2024-10-11] VITALS (11 sets, daily range): BP systolic 142–157; BP diastolic 85–98; PULSE 72–114; RESP 18–20; TEMP 36.2–37.9; O2SAT 96–98
[2024-10-11] MEDS: MINERAL OIL OP ×2 (08:24→20:17)
[2024-10-11] MEDS: SOD PHOS DI, MONO/K PHOS MONO 250 MG TABLET GT (08:24)
[2024-10-11] MEDS: ESOMEPRAZOLE 40 MG GT (08:24)
[2024-10-11] MEDS: PETROLATUM OP ×2 (08:24→20:17)
[2024-10-11] MEDS: MULTIVIT-MIN/IRON FUM/FOLIC AC 1 EACH TABLET GT (08:24)
[2024-10-11] MEDS: SODIUM CHLORIDE TAB 1,000 MG TABLET.SOL 1000 MG GT ×2 (08:24→20:17)
--- NOTE | 2024-10-11 13:10 | ESPR_ITS ---
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 (2) Epilepsy, unspecified, not intractable, without status epilepticus: Status: Chronic (3) Essential (primary) hypertension: Status: Chronic (4) Tracheostomy status: Status: Chronic (5) Gastrostomy status: Status: Chronic (6) Chronic respiratory failure, unspecified whether with hypoxia or hypercapnia: Status: Chronic (7) Chronic hyponatremia: Status: Chronic SUBJECTIVE Fever:: none GI:: none Shortness of Breath:: none GI:: no complaints Pain:: none OBJECTIVE Most recent vital signs: Last Vital Signs Temp 96.7 F L 10/12/24 06:00 Pulse 80 10/12/24 06:00 Resp 20 10/12/24 06:00 BP 141/92 H 10/12/24 06:00 Pulse Ox 97 10/12/24 06:00 O2 Del Method Blow-by 10/11/24 06:00 O2 Flow Rate 10 10/11/24 19:15 FiO2 35 10/11/24 19:15 Neurological:: alert Speech:: nods head, mouths words (sometimes) and appropriate Answers questions:: sometimes Respiratory:: shallow breathing Cardiovascular: RRR Abdomen: soft and nontender Extremities:: deformities Decubitus:: none Tracheostomy:: to blow by Feeding per:: G tube Complaints:: none ASSESSMENT & PLAN Assessment: Pt fully dependent for long-term care. No pain issues, and remains comfortable. Ice chips for some oral gratification tried with success without any cough or aspiration and continued.Remains fully dependent for care. interacts some and mostly happy. Tendency for Hypo-natremia on labs being monitored and addressed. No clinical change. Electrolytes improved. monitored regularly. Pt remains fully dependent for care. No discomfort / pain. VSS Plan: All treatment reviewed and continued.
[2024-10-11] MEDS: ACETAMINOPHEN 325 MG TABLET 650 MG GT (17:30)
[2024-10-11] MEDS: LOSARTAN 100 MG TABLET GT (20:16)
[2024-10-11] MEDS: SENNOSIDES 8.6 MG TABLET 17.2 MG GT (20:17)
[2024-10-12 06:00] VITALS: BP 141/92; PULSE 80; RESP 20; TEMP 35.9; O2SAT 97
[2024-10-12] MEDS: ESOMEPRAZOLE 40 MG GT (08:11)
[2024-10-12] MEDS: SOD PHOS DI, MONO/K PHOS MONO 250 MG TABLET GT (08:12)
[2024-10-12] MEDS: MINERAL OIL OP ×2 (08:12→20:40)
[2024-10-12] MEDS: PETROLATUM OP ×2 (08:12→20:40)
[2024-10-12] MEDS: ACETAMINOPHEN 325 MG TABLET 650 MG GT ×2 (08:12→20:42)
[2024-10-12] MEDS: SODIUM CHLORIDE TAB 1,000 MG TABLET.SOL 1000 MG GT ×2 (08:12→20:41)
[2024-10-12] MEDS: MULTIVIT-MIN/IRON FUM/FOLIC AC 1 EACH TABLET GT (08:12)
[2024-10-12 11:58] VITALS: BP 117/77; PULSE 78; RESP 19; TEMP 35.9
[2024-10-12 17:48] VITALS: BP 166/95; PULSE 89; RESP 20; TEMP 35.9; O2SAT 94
[2024-10-12 20:26] VITALS: PULSE 87; RESP 20; O2SAT 99
[2024-10-12 20:39] VITALS: BP 149/94; PULSE 89
[2024-10-12] MEDS: LOSARTAN 100 MG TABLET GT (20:39)
[2024-10-12] MEDS: SENNOSIDES 8.6 MG TABLET 17.2 MG GT (20:40)
[2024-10-12 23:54] VITALS: BP 134/93; PULSE 94; RESP 18; TEMP 36
[2024-10-13] VITALS (8 sets, daily range): BP systolic 127–171; BP diastolic 81–91; PULSE 62–94; RESP 17–20; TEMP 35.9–36.1; O2SAT 97–99
[2024-10-13] MEDS: IPRATROPIUM BROMIDE 200 PUFF/INH INHALER INH (02:44)
[2024-10-13] MEDS: ALBUTEROL INHALER 200 PUFF/INH INHALER INH (02:44)
[2024-10-13] MEDS: SOD PHOS DI, MONO/K PHOS MONO 250 MG TABLET GT (08:43)
[2024-10-13] MEDS: MINERAL OIL OP ×2 (08:43→21:03)
[2024-10-13] MEDS: ESOMEPRAZOLE 40 MG GT (08:43)
[2024-10-13] MEDS: SODIUM CHLORIDE TAB 1,000 MG TABLET.SOL 1000 MG GT ×2 (08:43→21:03)
[2024-10-13] MEDS: MULTIVIT-MIN/IRON FUM/FOLIC AC 1 EACH TABLET GT (08:43)
[2024-10-13] MEDS: PETROLATUM OP ×2 (08:43→21:03)
[2024-10-13] MEDS: LOSARTAN 100 MG TABLET GT (21:02)
[2024-10-13] MEDS: SENNOSIDES 8.6 MG TABLET 17.2 MG GT (21:03)
[2024-10-14 06:00] VITALS: BP 141/89; PULSE 81; RESP 20; TEMP 36.5; O2SAT 97
[2024-10-14] MEDS: ESOMEPRAZOLE 40 MG GT (07:59)
[2024-10-14] MEDS: PETROLATUM OP (08:00)
[2024-10-14] MEDS: MULTIVIT-MIN/IRON FUM/FOLIC AC 1 EACH TABLET GT (08:00)
[2024-10-14] MEDS: MINERAL OIL OP (08:00)
[2024-10-14] MEDS: SOD PHOS DI, MONO/K PHOS MONO 250 MG TABLET GT (08:00)
[2024-10-14] MEDS: MAGNESIUM HYDROXIDE 30 ML ORAL SUSP ML GT (08:00)
[2024-10-14] MEDS: SODIUM CHLORIDE TAB 1,000 MG TABLET.SOL 1000 MG GT ×2 (08:00→20:18)
[2024-10-14 08:56] VITALS: PULSE 68; RESP 20; O2SAT 100
[2024-10-14 12:00] VITALS: BP 154/81; PULSE 71; RESP 18; TEMP 36
--- NOTE | 2024-10-14 13:28 | PC.SS ---
Resident was seen by spa consultant for routine follow consultation. No changes resident to continue current care.
[2024-10-14] MEDS: ACETAMINOPHEN 325 MG TABLET 650 MG GT ×2 (14:19→21:00)
--- NOTE | 2024-10-14 15:23 | PC.NURSE ---
Left eye still noted with redness, no discharges noted. Currently on genteal tears ointment, order received from Dr Gonsalez to stop the genteal tears for one week and evaluate the eye after that.
--- NOTE | 2024-10-14 15:27 | PC.NURSE ---
Resident's left eye still noted with redness, no discharges noted. Currently on genteal tears ointment BID. Order received from Dr Gonsalez to stop the genteal tears and evaluate the eye after one week.
[2024-10-14 18:00] VITALS: BP 156/88; PULSE 79; RESP 20; TEMP 36.1; O2SAT 96
[2024-10-14 20:17] VITALS: BP 132/80; PULSE 78
[2024-10-14] MEDS: LOSARTAN 100 MG TABLET GT (20:17)
[2024-10-14] MEDS: SENNOSIDES 8.6 MG TABLET 17.2 MG GT (20:18)
[2024-10-14 20:23] VITALS: PULSE 86; RESP 18; O2SAT 98
[2024-10-15] VITALS (7 sets, daily range): BP systolic 121–137; BP diastolic 71–88; PULSE 68–104; RESP 17–23; TEMP 36–36.3; O2SAT 93–98
[2024-10-15] MEDS: ESOMEPRAZOLE 40 MG GT (08:00)
[2024-10-15] MEDS: MULTIVIT-MIN/IRON FUM/FOLIC AC 1 EACH TABLET GT (08:01)
[2024-10-15] MEDS: SOD PHOS DI, MONO/K PHOS MONO 250 MG TABLET GT (08:01)
[2024-10-15] MEDS: SODIUM CHLORIDE TAB 1,000 MG TABLET.SOL 1000 MG GT ×2 (08:01→20:19)
--- NOTE | 2024-10-15 17:38 | ESPR_ITS ---
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 (2) Epilepsy, unspecified, not intractable, without status epilepticus: Status: Chronic (3) Essential (primary) hypertension: Status: Chronic (4) Tracheostomy status: Status: Chronic (5) Gastrostomy status: Status: Chronic (6) Chronic respiratory failure, unspecified whether with hypoxia or hypercapnia: Status: Chronic (7) Chronic hyponatremia: Status: Chronic SUBJECTIVE Fever:: none GI:: none Shortness of Breath:: none GI:: no complaints Pain:: none OBJECTIVE Most recent vital signs: Last Vital Signs Temp 97.3 F 10/15/24 17:17 Pulse 87 10/15/24 17:17 Resp 20 10/15/24 17:17 BP 126/88 H 10/15/24 17:17 Pulse Ox 98 10/15/24 17:17 O2 Del Method Blow-by 10/14/24 18:00 O2 Flow Rate 10 10/15/24 10:00 FiO2 35 10/15/24 10:00 Neurological:: alert Speech:: nods head, mouths words (sometimes) and appropriate Answers questions:: sometimes Respiratory:: shallow breathing Cardiovascular: RRR Abdomen: soft and nontender Extremities:: deformities Decubitus:: none Tracheostomy:: to blow by Feeding per:: G tube Complaints:: none ASSESSMENT & PLAN Assessment: 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 No pain issues, and remains comfortable. Ice chips for some oral gratification tried with success without any cough or aspiration and continued.Remains fully dependent for care. interacts some and mostly happy. Tendency for Hypo-natremia on labs being monitored and addressed. No clinical change. Electrolytes improved. monitored regularly. Pt remains fully dependent for care. No discomfort / pain. VSS Plan: All treatment reviewed and continued.
[2024-10-15] MEDS: LOSARTAN 100 MG TABLET GT (20:17)
[2024-10-15] MEDS: SENNOSIDES 8.6 MG TABLET 17.2 MG GT (20:19)
[2024-10-16] VITALS (7 sets, daily range): BP systolic 119–162; BP diastolic 70–90; PULSE 70–99; RESP 16–73; TEMP 36.3–36.5; O2SAT 18–98
[2024-10-16] MEDS: ESOMEPRAZOLE 40 MG GT (09:28)
[2024-10-16] MEDS: SODIUM CHLORIDE TAB 1,000 MG TABLET.SOL 1000 MG GT ×2 (09:31→20:34)
[2024-10-16] MEDS: MULTIVIT-MIN/IRON FUM/FOLIC AC 1 EACH TABLET GT (09:31)
--- NOTE | 2024-10-16 10:19 | PC.NURSE ---
KPhos not administered. Notified studio operations engineer in charge patient Potassium 5.2 on labs dated 09/30/24.
[2024-10-16] MEDS: ACETAMINOPHEN 325 MG TABLET 650 MG GT (20:32)
[2024-10-16] MEDS: LOSARTAN 100 MG TABLET GT (20:33)
[2024-10-16] MEDS: SENNOSIDES 8.6 MG TABLET 17.2 MG GT (20:33)
[2024-10-16] MEDS: MAGNESIUM HYDROXIDE 30 ML ORAL SUSP ML GT (20:59)
[2024-10-17] VITALS (8 sets, daily range): BP systolic 110–163; BP diastolic 70–95; PULSE 56–89; RESP 16–20; TEMP 35.9–36.4; O2SAT 93–99
[2024-10-17 08:26] LABS: Alanine Aminotransferase 30 U/L (10-49); Albumin, Serum 4.3 gm/dL (3.4-4.8); Anion Gap 6 (7-16); Aspartate Amino Transferase 22 U/L (0-34); BUN/Creatinine Ratio 40 Ratio (12-20); Bilirubin,Total 0.3 mg/dL (0.3-1.2); Blood Urea Nitrogen 16 mg/dL (9-23); Calcium 9.8 mg/dL (8.3-10.6); Calcium (Corrected) 9.8 mg/dL (8.5-10.1); Carbon Dioxide 30.4 mMol/L (20.0-31.0); Chloride 97 mMol/L (98-107); Creatinine (Component) 0.4 mg/dL (0.6-1.3); Estimated Creatinine Clearance 99.2 mL/min (>60); Glucose 107 mg/dL (74-106); Osmolality,Calculated 267 (275-295); Potassium 4.4 mMol/L (3.4-5.1); Sodium 133 mMol/L (136-145); Total Protein 7.7 gm/dL (5.7-8.2); eGFR > 60 See Note
[2024-10-17 08:27] LABS: Albumin/Globulin Ratio 1.3 (1.2-2.2); Alkaline Phosphatase 137 U/L (46-116); Globulin 3.4 gm/dL (2.3-3.5)
[2024-10-17] MEDS: ESOMEPRAZOLE 40 MG GT (08:27)
[2024-10-17] MEDS: MULTIVIT-MIN/IRON FUM/FOLIC AC 1 EACH TABLET GT (08:28)
[2024-10-17] MEDS: SODIUM CHLORIDE TAB 1,000 MG TABLET.SOL 1000 MG GT ×2 (08:28→20:19)
[2024-10-17] MEDS: SOD PHOS DI, MONO/K PHOS MONO 250 MG TABLET GT (08:31)
--- NOTE | 2024-10-17 14:42 | PC.SS ---
Resident is laying in bed with head of the bed elevated with call light properly placed with no signs of distress. Resident has trach in place and GT for medication and nutrition. Resident is non verbal unable to make decisions for self. Resident will remain in current care and will continue to have all subacute care needs met by staff. This SSD will make daily contact with resident and will monitor for changes in mood and behavior.
[2024-10-17] MEDS: LOSARTAN 100 MG TABLET GT (20:18)
[2024-10-17] MEDS: SENNOSIDES 8.6 MG TABLET 17.2 MG GT (20:19)
[2024-10-18 06:00] VITALS: BP 146/90; PULSE 77; RESP 20; TEMP 36.1; O2SAT 97
[2024-10-18 07:03] VITALS: PULSE 77; RESP 18; O2SAT 100
[2024-10-18] MEDS: ESOMEPRAZOLE 40 MG GT (08:00)
[2024-10-18] MEDS: MULTIVIT-MIN/IRON FUM/FOLIC AC 1 EACH TABLET GT (08:00)
[2024-10-18] MEDS: SOD PHOS DI, MONO/K PHOS MONO 250 MG TABLET GT (08:00)
[2024-10-18] MEDS: SODIUM CHLORIDE TAB 1,000 MG TABLET.SOL 1000 MG GT ×2 (08:00→20:15)
[2024-10-18 12:00] VITALS: BP 160/74; PULSE 81; RESP 18; TEMP 36.4
[2024-10-18 17:36] VITALS: BP 158/90; PULSE 72; RESP 18; TEMP 36.1; O2SAT 98
[2024-10-18 20:13] VITALS: BP 145/76; PULSE 72
[2024-10-18] MEDS: LOSARTAN 100 MG TABLET GT (20:13)
[2024-10-18] MEDS: SENNOSIDES 8.6 MG TABLET 17.2 MG GT (20:15)
[2024-10-18 23:44] VITALS: BP 139/90; PULSE 86; RESP 20; TEMP 36.3
[2024-10-19 06:00] VITALS: BP 145/90; PULSE 81; RESP 20; TEMP 36.4; O2SAT 97
[2024-10-19 06:24] VITALS: PULSE 75; RESP 18; O2SAT 98
[2024-10-19] MEDS: SOD PHOS DI, MONO/K PHOS MONO 250 MG TABLET GT (08:02)
[2024-10-19] MEDS: SODIUM CHLORIDE TAB 1,000 MG TABLET.SOL 1000 MG GT ×2 (08:02→20:45)
[2024-10-19] MEDS: MULTIVIT-MIN/IRON FUM/FOLIC AC 1 EACH TABLET GT (08:02)
[2024-10-19] MEDS: ESOMEPRAZOLE 40 MG GT (08:02)
--- NOTE | 2024-10-19 11:52 | ESPR_ITS ---
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 (2) Epilepsy, unspecified, not intractable, without status epilepticus: Status: Chronic (3) Essential (primary) hypertension: Status: Chronic (4) Tracheostomy status: Status: Chronic (5) Gastrostomy status: Status: Chronic (6) Chronic respiratory failure, unspecified whether with hypoxia or hypercapnia: Status: Chronic (7) Chronic hyponatremia: Status: Chronic SUBJECTIVE Fever:: none GI:: none Shortness of Breath:: none GI:: no complaints Pain:: none OBJECTIVE Most recent vital signs: Last Vital Signs Temp 97.6 F 10/19/24 06:00 Pulse 75 10/19/24 06:24 Resp 18 10/19/24 06:24 BP 145/90 H 10/19/24 06:00 Pulse Ox 98 10/19/24 06:24 O2 Del Method Blow-by 10/19/24 06:00 O2 Flow Rate 6 10/19/24 06:24 FiO2 30 10/19/24 06:24 Neurological:: alert Speech:: nods head, mouths words (sometimes) and appropriate Answers questions:: sometimes Respiratory:: shallow breathing Cardiovascular: RRR Abdomen: soft and nontender Extremities:: deformities Decubitus:: none Tracheostomy:: to blow by Feeding per:: G tube Complaints:: none ASSESSMENT & PLAN Assessment: 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 No pain issues, and remains comfortable. Ice chips for some oral gratification tried with success without any cough or aspiration and continued.Remains fully dependent for care. interacts some and mostly happy. Tendency for Hypo-natremia on labs being monitored and addressed. No clinical change. Electrolytes improved. monitored regularly. Pt remains fully dependent for care. No discomfort / pain. VSS Plan: All treatment reviewed and continued.
[2024-10-19 12:00] VITALS: BP 113/74; PULSE 108; RESP 18; TEMP 36.6
[2024-10-19 18:00] VITALS: BP 92/68; PULSE 104; RESP 19; TEMP 36.4; O2SAT 97
[2024-10-19 20:15] VITALS: PULSE 69; RESP 18; RESP 20; O2SAT 98
[2024-10-19 20:44] VITALS: BP 114/73; PULSE 95
[2024-10-19] MEDS: LOSARTAN 100 MG TABLET GT (20:44)
[2024-10-19] MEDS: SENNOSIDES 8.6 MG TABLET 17.2 MG GT (20:45)
[2024-10-20] VITALS (7 sets, daily range): BP systolic 98–157; BP diastolic 60–86; PULSE 53–92; RESP 17–20; TEMP 36.1–36.9; O2SAT 93–98
[2024-10-20] MEDS: MAGNESIUM HYDROXIDE 30 ML ORAL SUSP ML GT (00:45)
[2024-10-20] MEDS: MULTIVIT-MIN/IRON FUM/FOLIC AC 1 EACH TABLET GT (08:28)
[2024-10-20] MEDS: ESOMEPRAZOLE 40 MG GT (08:28)
[2024-10-20] MEDS: SOD PHOS DI, MONO/K PHOS MONO 250 MG TABLET GT (08:28)
[2024-10-20] MEDS: SODIUM CHLORIDE TAB 1,000 MG TABLET.SOL 1000 MG GT ×2 (08:29→21:06)
--- NOTE | 2024-10-20 10:19 | PC.NURSE ---
Seen by Dr Forbes today, no new orders made.
--- NOTE | 2024-10-20 12:31 | PC.SS ---
Resident was seen by patient registration rep with no new orders or recommendations, resident to continue current care.
[2024-10-20] MEDS: LOSARTAN 100 MG TABLET GT (21:05)
[2024-10-20] MEDS: SENNOSIDES 8.6 MG TABLET 17.2 MG GT (21:06)
[2024-10-21] VITALS (7 sets, daily range): BP systolic 122–157; BP diastolic 81–90; PULSE 71–92; RESP 19–22; TEMP 36.1–36.3; O2SAT 95–98
[2024-10-21] MEDS: MULTIVIT-MIN/IRON FUM/FOLIC AC 1 EACH TABLET GT (08:38)
[2024-10-21] MEDS: SOD PHOS DI, MONO/K PHOS MONO 250 MG TABLET GT (08:38)
[2024-10-21] MEDS: ESOMEPRAZOLE 40 MG GT (08:38)
[2024-10-21] MEDS: SODIUM CHLORIDE TAB 1,000 MG TABLET.SOL 1000 MG GT ×2 (08:39→21:22)
[2024-10-21] MEDS: LOSARTAN 100 MG TABLET GT (21:20)
[2024-10-21] MEDS: SENNOSIDES 8.6 MG TABLET 17.2 MG GT (21:21)
[2024-10-22] VITALS (7 sets, daily range): BP systolic 138–165; BP diastolic 83–94; PULSE 79–93; RESP 16–20; TEMP 35.9–36.2; O2SAT 95–99
[2024-10-22] MEDS: ESOMEPRAZOLE 40 MG GT (08:09)
[2024-10-22] MEDS: SOD PHOS DI, MONO/K PHOS MONO 250 MG TABLET GT (08:09)
[2024-10-22] MEDS: MULTIVIT-MIN/IRON FUM/FOLIC AC 1 EACH TABLET GT (08:09)
[2024-10-22] MEDS: SODIUM CHLORIDE TAB 1,000 MG TABLET.SOL 1000 MG GT ×2 (08:09→20:27)
[2024-10-22] MEDS: LOSARTAN 100 MG TABLET GT (20:26)
[2024-10-22] MEDS: SENNOSIDES 8.6 MG TABLET 17.2 MG GT (20:26)
[2024-10-22] MEDS: MAGNESIUM HYDROXIDE 30 ML ORAL SUSP ML GT (20:27)
[2024-10-23] VITALS (7 sets, daily range): BP systolic 124–143; BP diastolic 79–93; PULSE 80–92; RESP 15–19; TEMP 36.3–36.5; O2SAT 95–98
[2024-10-23] MEDS: ESOMEPRAZOLE 40 MG GT (08:10)
[2024-10-23] MEDS: SODIUM CHLORIDE TAB 1,000 MG TABLET.SOL 1000 MG GT ×2 (08:10→20:24)
[2024-10-23] MEDS: MULTIVIT-MIN/IRON FUM/FOLIC AC 1 EACH TABLET GT (08:10)
[2024-10-23] MEDS: SOD PHOS DI, MONO/K PHOS MONO 250 MG TABLET GT (08:10)
[2024-10-23] MEDS: LOSARTAN 100 MG TABLET GT (20:23)
[2024-10-23] MEDS: SENNOSIDES 8.6 MG TABLET 17.2 MG GT (20:24)
--- NOTE | 2024-10-23 23:11 | ESPR_ITS ---
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 (2) Epilepsy, unspecified, not intractable, without status epilepticus: Status: Chronic (3) Essential (primary) hypertension: Status: Chronic (4) Tracheostomy status: Status: Chronic (5) Gastrostomy status: Status: Chronic (6) Chronic respiratory failure, unspecified whether with hypoxia or hypercapnia: Status: Chronic (7) Chronic hyponatremia: Status: Chronic SUBJECTIVE Fever:: none GI:: none Shortness of Breath:: none GI:: no complaints Pain:: none OBJECTIVE Most recent vital signs: Last Vital Signs Temp 97.6 F 10/23/24 18:00 Pulse 90 10/23/24 20:23 Resp 19 10/23/24 18:28 BP 137/93 H 10/23/24 20:23 Pulse Ox 96 10/23/24 18:28 O2 Del Method Blow-by 10/23/24 05:23 O2 Flow Rate 10 10/23/24 18:28 FiO2 35 10/23/24 18:28 Neurological:: alert Speech:: nods head, mouths words (sometimes) and appropriate Answers questions:: sometimes Respiratory:: shallow breathing Cardiovascular: RRR Abdomen: soft and nontender Extremities:: deformities Decubitus:: none Tracheostomy:: to blow by Feeding per:: G tube Complaints:: none ASSESSMENT & PLAN Assessment: 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 No pain issues, and remains comfortable. Ice chips for some oral gratification tried with success without any cough or aspiration and continued.Remains fully dependent for care. interacts some and mostly happy. Tendency for Hypo-natremia on labs being monitored and addressed. No clinical change. Electrolytes improved. monitored regularly. Pt remains fully dependent for care. No discomfort / pain. VSS. No new issues. Family updated from time to time Plan: All treatment reviewed and continued.
[2024-10-24] VITALS (7 sets, daily range): BP systolic 110–142; BP diastolic 74–95; PULSE 54–98; RESP 18–22; TEMP 36.3–36.5; O2SAT 97–99
[2024-10-24] MEDS: ESOMEPRAZOLE 40 MG GT (08:47)
[2024-10-24] MEDS: SOD PHOS DI, MONO/K PHOS MONO 250 MG TABLET GT (08:48)
[2024-10-24] MEDS: SODIUM CHLORIDE TAB 1,000 MG TABLET.SOL 1000 MG GT ×2 (08:48→20:07)
[2024-10-24] MEDS: MULTIVIT-MIN/IRON FUM/FOLIC AC 1 EACH TABLET GT (08:48)
[2024-10-24] MEDS: LOSARTAN 100 MG TABLET GT (20:06)
[2024-10-24] MEDS: SENNOSIDES 8.6 MG TABLET 17.2 MG GT (20:07)
[2024-10-25] VITALS (7 sets, daily range): BP systolic 118–131; BP diastolic 70–87; PULSE 69–91; RESP 18–20; TEMP 36.4–36.7; O2SAT 96–98
[2024-10-25] MEDS: ACETAMINOPHEN 325 MG TABLET 650 MG GT (05:12)
[2024-10-25] MEDS: SODIUM CHLORIDE TAB 1,000 MG TABLET.SOL 1000 MG GT ×2 (08:01→21:41)
[2024-10-25] MEDS: ESOMEPRAZOLE 40 MG GT (08:01)
[2024-10-25] MEDS: SOD PHOS DI, MONO/K PHOS MONO 250 MG TABLET GT (08:01)
[2024-10-25] MEDS: MULTIVIT-MIN/IRON FUM/FOLIC AC 1 EACH TABLET GT (08:01)
[2024-10-25] MEDS: SENNOSIDES 8.6 MG TABLET 17.2 MG GT (21:41)
[2024-10-25] MEDS: LOSARTAN 100 MG TABLET GT (21:41)
[2024-10-26] VITALS (8 sets, daily range): BP systolic 104–158; BP diastolic 61–86; PULSE 65–94; RESP 18–22; TEMP 36.1–36.4; O2SAT 92–99
[2024-10-26] MEDS: ESOMEPRAZOLE 40 MG GT (08:42)
[2024-10-26] MEDS: SOD PHOS DI, MONO/K PHOS MONO 250 MG TABLET GT (08:43)
[2024-10-26] MEDS: SODIUM CHLORIDE TAB 1,000 MG TABLET.SOL 1000 MG GT ×2 (08:44→20:54)
[2024-10-26] MEDS: MULTIVIT-MIN/IRON FUM/FOLIC AC 1 EACH TABLET GT (08:44)
[2024-10-26] MEDS: MAGNESIUM HYDROXIDE 30 ML ORAL SUSP ML GT (09:00)
[2024-10-26] MEDS: SENNOSIDES 8.6 MG TABLET 17.2 MG GT (20:53)
[2024-10-26] MEDS: LOSARTAN 100 MG TABLET GT (20:53)
[2024-10-27 05:55] VITALS: BP 112/73; PULSE 74; RESP 18; TEMP 36.3; O2SAT 97
[2024-10-27 07:56] VITALS: PULSE 68; RESP 18; O2SAT 96
[2024-10-27] MEDS: SOD PHOS DI, MONO/K PHOS MONO 250 MG TABLET GT (08:21)
[2024-10-27] MEDS: ESOMEPRAZOLE 40 MG GT (08:21)
[2024-10-27] MEDS: SODIUM CHLORIDE TAB 1,000 MG TABLET.SOL 1000 MG GT ×2 (08:21→21:29)
[2024-10-27] MEDS: MULTIVIT-MIN/IRON FUM/FOLIC AC 1 EACH TABLET GT (08:21)
[2024-10-27 12:00] VITALS: BP 135/84; PULSE 82; RESP 20; TEMP 36.3
[2024-10-27 18:00] VITALS: BP 133/85; PULSE 76; RESP 18; TEMP 36.3; O2SAT 99
[2024-10-27 21:28] VITALS: BP 165/89; PULSE 79
[2024-10-27] MEDS: LOSARTAN 100 MG TABLET GT (21:28)
[2024-10-27] MEDS: SENNOSIDES 8.6 MG TABLET 17.2 MG GT (21:28)
[2024-10-27] MEDS: ACETAMINOPHEN 325 MG TABLET 650 MG GT (21:29)
--- NOTE | 2024-10-27 22:04 | ESPR_ITS ---
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 (2) Epilepsy, unspecified, not intractable, without status epilepticus: Status: Chronic (3) Essential (primary) hypertension: Status: Chronic (4) Tracheostomy status: Status: Chronic (5) Gastrostomy status: Status: Chronic (6) Chronic respiratory failure, unspecified whether with hypoxia or hypercapnia: Status: Chronic (7) Chronic hyponatremia: Status: Chronic SUBJECTIVE Fever:: none GI:: none Shortness of Breath:: none GI:: no complaints Pain:: none OBJECTIVE Most recent vital signs: Last Vital Signs Temp 97.3 F 10/27/24 18:00 Pulse 79 10/27/24 21:28 Resp 18 10/27/24 18:00 BP 165/89 H 10/27/24 21:28 Pulse Ox 99 10/27/24 18:00 O2 Del Method Blow-by 10/26/24 16:48 O2 Flow Rate 10 10/27/24 07:56 FiO2 35 10/27/24 07:56 Neurological:: alert Speech:: nods head, mouths words (sometimes) and appropriate Answers questions:: sometimes Respiratory:: shallow breathing Cardiovascular: RRR Abdomen: soft and nontender Extremities:: deformities Decubitus:: none Tracheostomy:: to blow by Feeding per:: G tube Complaints:: none ASSESSMENT & PLAN Assessment: 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 No pain issues, and remains comfortable. Ice chips for some oral gratification tried with success without any cough or aspiration and continued.Remains fully dependent for care. interacts some and mostly happy. Tendency for Hypo-natremia on labs being monitored and addressed. No clinical change. Electrolytes improved. monitored regularly. Pt remains fully dependent for care. No discomfort / pain. VSS. No new issues. Family updated from time to time Plan: All treatment reviewed and continued.
[2024-10-28] VITALS (8 sets, daily range): BP systolic 118–141; BP diastolic 56–85; PULSE 71–86; RESP 14–23; TEMP 36.1–36.6; O2SAT 95–100
[2024-10-28] MEDS: ESOMEPRAZOLE 40 MG GT (08:06)
[2024-10-28] MEDS: SOD PHOS DI, MONO/K PHOS MONO 250 MG TABLET GT (08:06)
[2024-10-28] MEDS: SODIUM CHLORIDE TAB 1,000 MG TABLET.SOL 1000 MG GT ×2 (08:06→21:11)
[2024-10-28] MEDS: MULTIVIT-MIN/IRON FUM/FOLIC AC 1 EACH TABLET GT (08:06)
[2024-10-28] MEDS: SENNOSIDES 8.6 MG TABLET 17.2 MG GT (21:11)
[2024-10-28] MEDS: LOSARTAN 100 MG TABLET GT (21:11)
[2024-10-29] VITALS (7 sets, daily range): BP systolic 111–143; BP diastolic 79–86; PULSE 76–90; RESP 18–23; TEMP 36.1–36.3; O2SAT 94–99
[2024-10-29] MEDS: ESOMEPRAZOLE 40 MG GT (08:29)
[2024-10-29] MEDS: SOD PHOS DI, MONO/K PHOS MONO 250 MG TABLET GT (08:29)
[2024-10-29] MEDS: MULTIVIT-MIN/IRON FUM/FOLIC AC 1 EACH TABLET GT (08:30)
[2024-10-29] MEDS: SODIUM CHLORIDE TAB 1,000 MG TABLET.SOL 1000 MG GT ×2 (08:31→21:11)
--- NOTE | 2024-10-29 09:49 | PC.IP ---
At 0940 accompanied [place] decorating equipment setter nurse to resident room to assist in visualizing resident's eyes; resident has been keeping eyes closed tightly since conjunctivitis was treated with Ciprofloxacin drops 09/02/24 - 09/09/24. Resident has been alert and responsive, but is not demonstrating same at present. Does not want to open eyes and does not interact with caregivers. Minimal visualization of both eyes was possible; noted OD with beefy red lower lid and from iris to inner canthus deeply reddened. OS reddened with noted dried exudate on lashes. Dr. Gonsalez will be informed for possible further treatment. Resident is in Contact Isolation until such time as treatment is started and complete or MD orders such.
--- NOTE | 2024-10-29 11:10 | PC.SS ---
This SSD called [facility] to ask if there was an Manager Process on staff, spoke with Mirta who stated there is no housecleaner on staff. This SSD went over last visit notes from 10/14. contract administrative assistant did not make any orders but dis make recommendations see optometry notes date 10/14. Charge nurse, IP nurse and DON made aware.
--- NOTE | 2024-10-29 11:30 | PC.SS ---
This SSD called around to ophthalmology groups to schedule resident appointment, spoke with Dr. Ulrich airport shuttle driver. information provided to charge nurse, JAROCHO made aware.
--- NOTE | 2024-10-29 12:57 | PC.NURSE ---
Dr Gonsalez was updated about resident's eyes noted to have redness and discharges with new orders made
[2024-10-29] MEDS: GENTAMICIN 0.3% OPHTH DROPS 75 DROP/5 ML BTL OPHTHALMIC ×2 (15:23→21:12)
[2024-10-29] MEDS: LOSARTAN 100 MG TABLET GT (21:10)
[2024-10-29] MEDS: SENNOSIDES 8.6 MG TABLET 17.2 MG GT (21:11)
--- NOTE | 2024-10-29 22:52 | ESPR_ITS ---
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 (2) Epilepsy, unspecified, not intractable, without status epilepticus: Status: Chronic (3) Essential (primary) hypertension: Status: Chronic (4) Tracheostomy status: Status: Chronic (5) Gastrostomy status: Status: Chronic (6) Chronic respiratory failure, unspecified whether with hypoxia or hypercapnia: Status: Chronic (7) Chronic hyponatremia: Status: Chronic SUBJECTIVE Fever:: none GI:: none Shortness of Breath:: none GI:: no complaints Pain:: none OBJECTIVE Most recent vital signs: Last Vital Signs Temp 97.4 F 10/29/24 17:12 Pulse 86 10/29/24 21:10 Resp 18 10/29/24 18:52 BP 137/81 H 10/29/24 21:10 Pulse Ox 94 L 10/29/24 18:52 O2 Del Method Blow-by 10/29/24 06:00 O2 Flow Rate 10 10/29/24 18:52 FiO2 35 10/29/24 18:52 Neurological:: alert Speech:: nods head, mouths words (sometimes) and appropriate Answers questions:: sometimes Respiratory:: shallow breathing Cardiovascular: RRR Abdomen: soft and nontender Extremities:: deformities Decubitus:: none Tracheostomy:: to blow by Feeding per:: G tube Complaints:: none ASSESSMENT & PLAN Assessment: Pt fully dependent for nursing home care. No pain issues, and remains comfortable. Ice chips for some oral gratification tried with success without any cough or aspiration and continued.Remains fully dependent for care. interacts some and mostly happy. Tendency for Hypo-natremia on labs being monitored and addressed. No clinical change. Electrolytes improved. monitored regularly. Observed to be having eye inflammation and samples taken and antibiotics initiated. Pt remains fully dependent for care. No discomfort / pain. VSS. No new issues. Family updated from time to time Plan: All treatment reviewed and continued.
[2024-10-30] VITALS (7 sets, daily range): BP systolic 109–144; BP diastolic 73–96; PULSE 73–88; RESP 18–20; TEMP 36.1–36.6; O2SAT 95–99
[2024-10-30] MEDS: GENTAMICIN 0.3% OPHTH DROPS 75 DROP/5 ML BTL OPHTHALMIC ×3 (05:38→21:14)
[2024-10-30] MEDS: ESOMEPRAZOLE 40 MG GT (08:15)
[2024-10-30] MEDS: SOD PHOS DI, MONO/K PHOS MONO 250 MG TABLET GT (08:16)
[2024-10-30] MEDS: MULTIVIT-MIN/IRON FUM/FOLIC AC 1 EACH TABLET GT (08:17)
[2024-10-30] MEDS: SODIUM CHLORIDE TAB 1,000 MG TABLET.SOL 1000 MG GT ×2 (08:18→21:14)
[2024-10-30] MEDS: MAGNESIUM HYDROXIDE 30 ML ORAL SUSP ML GT (09:13)
--- NOTE | 2024-10-30 14:42 | PC.SS ---
Resident is laying in bed with head of the bed elevated with call light placed with no signs of distress. Resident is on blow by with trach in place and GT for medication and nutrition. Resident is non verbal unable to make needs known, her daughter is her decision maker. Resident has no changes in care or condition and will remain in current care and will have all subacute care needs met by staff. This SSD will continue make daily contact and will monitor for changes in mood and behavior.
[2024-10-30] MEDS: LOSARTAN 100 MG TABLET GT (21:13)
[2024-10-30] MEDS: SENNOSIDES 8.6 MG TABLET 17.2 MG GT (21:14)
[2024-10-31] VITALS (7 sets, daily range): BP systolic 112–140; BP diastolic 78–86; PULSE 76–92; RESP 18–30; TEMP 35.9–36.3; O2SAT 93–99
[2024-10-31] MEDS: GENTAMICIN 0.3% OPHTH DROPS 75 DROP/5 ML BTL OPHTHALMIC ×2 (06:21→14:15)
[2024-10-31] MEDS: SODIUM CHLORIDE TAB 1,000 MG TABLET.SOL 1000 MG GT ×2 (09:21→20:22)
[2024-10-31] MEDS: SOD PHOS DI, MONO/K PHOS MONO 250 MG TABLET GT (09:21)
[2024-10-31] MEDS: MULTIVIT-MIN/IRON FUM/FOLIC AC 1 EACH TABLET GT (09:21)
[2024-10-31] MEDS: ESOMEPRAZOLE 40 MG GT (09:21)
--- NOTE | 2024-10-31 18:12 | PC.NURSE ---
Telehealth consultation made to Dr Ulrich regarding resident's eyes redness and the c & s results to both eyes, no wbc seen, no bacteria seen. Resident currently on gentamicin drops TID. Order received to decrease it to BID and no stop date given at this time. MD requested to send clearer pictures on resident's eyes and he said he'll do his research about it.
[2024-10-31] MEDS: LOSARTAN 100 MG TABLET GT (20:22)
[2024-10-31] MEDS: SENNOSIDES 8.6 MG TABLET 17.2 MG GT (20:22)
[2024-11-01] VITALS: BP 104/70; PULSE 88; RESP 22; TEMP 36.4
[2024-11-01 06:00] VITALS: BP 140/80; PULSE 92; RESP 22; TEMP 36.5; O2SAT 95
[2024-11-01 07:14] VITALS: PULSE 85; RESP 18; O2SAT 96
[2024-11-01] MEDS: SOD PHOS DI, MONO/K PHOS MONO 250 MG TABLET GT (08:25)
[2024-11-01] MEDS: SODIUM CHLORIDE TAB 1,000 MG TABLET.SOL 1000 MG GT ×2 (08:25→20:11)
[2024-11-01] MEDS: ESOMEPRAZOLE 40 MG GT (08:25)
[2024-11-01] MEDS: GENTAMICIN 0.3% OPHTH DROPS 75 DROP/5 ML BTL OPHTHALMIC ×2 (08:25→20:10)
[2024-11-01] MEDS: MULTIVIT-MIN/IRON FUM/FOLIC AC 1 EACH TABLET GT (08:25)
[2024-11-01 12:00] VITALS: BP 114/79; PULSE 93; RESP 16; TEMP 36.6
[2024-11-01 18:00] VITALS: BP 115/75; PULSE 98; RESP 18; TEMP 36.8; O2SAT 95
[2024-11-01 20:10] VITALS: BP 124/81; PULSE 93
[2024-11-01] MEDS: SENNOSIDES 8.6 MG TABLET 17.2 MG GT (20:10)
[2024-11-01] MEDS: LOSARTAN 100 MG TABLET GT (20:10)
[2024-11-01] MEDS: ACETAMINOPHEN 325 MG TABLET 650 MG GT (20:11)
[2024-11-02] VITALS (8 sets, daily range): BP systolic 122–127; BP diastolic 85–88; PULSE 77–90; RESP 18–22; TEMP 36.5–36.8; O2SAT 96–99
--- NOTE | 2024-11-02 06:32 | PC.NURSE ---
Resident on Gentamicin eye drops BID for redness to both eyes, resident continues to have redness to both eyed, no discharge noted, resident noted to be opening her eyes at times, no side effects or adverse reaction noted, resident in room resting with eyes closed, respirations even and unlabored, HOB elevated, no s/s of distress.
[2024-11-02] MEDS: SOD PHOS DI, MONO/K PHOS MONO 250 MG TABLET GT (08:13)
[2024-11-02] MEDS: ESOMEPRAZOLE 40 MG GT (08:13)
[2024-11-02] MEDS: GENTAMICIN 0.3% OPHTH DROPS 75 DROP/5 ML BTL OPHTHALMIC ×2 (08:13→20:16)
[2024-11-02] MEDS: SODIUM CHLORIDE TAB 1,000 MG TABLET.SOL 1000 MG GT ×2 (08:14→20:18)
[2024-11-02] MEDS: MULTIVIT-MIN/IRON FUM/FOLIC AC 1 EACH TABLET GT (08:14)
--- NOTE | 2024-11-02 13:15 | PD.SAPROG ---
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 (2) Epilepsy, unspecified, not intractable, without status epilepticus: Status: Chronic (3) Essential (primary) hypertension: Status: Chronic (4) Tracheostomy status: Status: Chronic (5) Gastrostomy status: Status: Chronic (6) Chronic respiratory failure, unspecified whether with hypoxia or hypercapnia: Status: Chronic (7) Chronic hyponatremia: Status: Chronic SUBJECTIVE Fever:: none GI:: none Shortness of Breath:: none GI:: no complaints Pain:: none OBJECTIVE Most recent vital signs: Last Vital Signs Temp 97.3 F 11/06/24 17:51 Pulse 99 11/06/24 20:50 Resp 23 H 11/06/24 17:51 BP 117/80 11/06/24 20:50 Pulse Ox 98 11/06/24 17:51 O2 Del Method Blow-by 11/06/24 05:39 O2 Flow Rate 10 11/06/24 06:58 FiO2 35 11/06/24 06:58 Neurological:: alert Speech:: nods head, mouths words (sometimes) and appropriate Answers questions:: sometimes Respiratory:: shallow breathing Cardiovascular: RRR Abdomen: soft and nontender Extremities:: deformities Decubitus:: none Tracheostomy:: to blow by Feeding per:: G tube Complaints:: none ASSESSMENT & PLAN Assessment: 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 No pain issues, and remains comfortable. Ice chips for some oral gratification tried with success without any cough or aspiration and continued.Remains fully dependent for care. interacts some and mostly happy. Tendency for Hypo-natremia on labs being monitored and addressed. No clinical change. Electrolytes improved. monitored regularly. Observed to be having eye inflammation and samples taken and antibiotics initiated. Pt remains fully dependent for care. No discomfort / pain. VSS. No new issues. Family updated from time to time Plan: All treatment reviewed and continued.
[2024-11-02] MEDS: LOSARTAN 100 MG TABLET GT (20:16)
[2024-11-02] MEDS: SENNOSIDES 8.6 MG TABLET 17.2 MG GT (20:18)
[2024-11-03] VITALS (7 sets, daily range): BP systolic 112–147; BP diastolic 76–85; PULSE 72–111; RESP 17–20; TEMP 36.6; O2SAT 95–100
[2024-11-03] MEDS: SOD PHOS DI, MONO/K PHOS MONO 250 MG TABLET GT (08:04)
[2024-11-03] MEDS: ESOMEPRAZOLE 40 MG GT (08:04)
[2024-11-03] MEDS: MULTIVIT-MIN/IRON FUM/FOLIC AC 1 EACH TABLET GT (08:05)
[2024-11-03] MEDS: SODIUM CHLORIDE TAB 1,000 MG TABLET.SOL 1000 MG GT ×2 (08:05→20:07)
[2024-11-03] MEDS: GENTAMICIN 0.3% OPHTH DROPS 75 DROP/5 ML BTL OPHTHALMIC ×2 (09:53→20:07)
[2024-11-03] MEDS: ACETAMINOPHEN 325 MG TABLET 650 MG GT (09:54)
[2024-11-03] MEDS: LOSARTAN 100 MG TABLET GT (20:07)
[2024-11-03] MEDS: SENNOSIDES 8.6 MG TABLET 17.2 MG GT (20:07)
[2024-11-04] VITALS: BP 148/80; PULSE 82; RESP 19; TEMP 36.2
[2024-11-04 05:36] VITALS: BP 135/91; PULSE 83; RESP 19; TEMP 36; O2SAT 99
[2024-11-04] MEDS: ESOMEPRAZOLE 40 MG GT (08:06)
[2024-11-04] MEDS: MULTIVIT-MIN/IRON FUM/FOLIC AC 1 EACH TABLET GT (08:07)
[2024-11-04] MEDS: GENTAMICIN 0.3% OPHTH DROPS 75 DROP/5 ML BTL OPHTHALMIC ×2 (08:07→20:15)
[2024-11-04] MEDS: SOD PHOS DI, MONO/K PHOS MONO 250 MG TABLET GT (08:07)
[2024-11-04] MEDS: SODIUM CHLORIDE TAB 1,000 MG TABLET.SOL 1000 MG GT ×2 (08:07→20:16)
[2024-11-04 09:40] VITALS: PULSE 82; RESP 20; O2SAT 97
[2024-11-04 11:22] VITALS: BP 151/74; PULSE 97; RESP 24; TEMP 36.1
[2024-11-04 17:43] VITALS: BP 140/69; PULSE 90; RESP 23; TEMP 36.1
[2024-11-04 20:15] VITALS: BP 144/86; PULSE 93
[2024-11-04] MEDS: LOSARTAN 100 MG TABLET GT (20:15)
[2024-11-04] MEDS: SENNOSIDES 8.6 MG TABLET 17.2 MG GT (20:15)
[2024-11-04] MEDS: ACETAMINOPHEN 325 MG TABLET 650 MG GT (20:17)
[2024-11-05] VITALS: BP 130/87; PULSE 89; RESP 22; TEMP 36.6
[2024-11-05 06:00] VITALS: BP 136/82; PULSE 83; RESP 20; TEMP 36.4; O2SAT 98
[2024-11-05 07:20] VITALS: PULSE 85; RESP 20; O2SAT 98
[2024-11-05] MEDS: ESOMEPRAZOLE 40 MG GT (08:42)
[2024-11-05] MEDS: MULTIVIT-MIN/IRON FUM/FOLIC AC 1 EACH TABLET GT (08:43)
[2024-11-05] MEDS: SOD PHOS DI, MONO/K PHOS MONO 250 MG TABLET GT (08:43)
[2024-11-05] MEDS: GENTAMICIN 0.3% OPHTH DROPS 75 DROP/5 ML BTL OPHTHALMIC ×2 (08:43→21:06)
[2024-11-05] MEDS: SODIUM CHLORIDE TAB 1,000 MG TABLET.SOL 1000 MG GT ×2 (08:44→21:08)
--- NOTE | 2024-11-05 10:27 | PC.IP ---
Resident continues to receive Gentamycin drops OU;no significant culture results for redness and slight exudate. Resident does open eyes voluntarily. Prior to this treatment,would not open eyes. Eyes remain with some redness.
[2024-11-05 11:24] VITALS: BP 157/85; PULSE 80; RESP 18; TEMP 36
--- NOTE | 2024-11-05 14:01 | PC.NURSE ---
Dr Ulrich reviewed resident's eyes pictures that was sent last sunday and sent an order to d/c on Tobramycin and continue on lubricant. Called Dr Ulrich and clarified the order. Made him aware that resident is on gentamycin BID and no stop date on it and not on lubricants. Reminded MD that last sunday , he mentioned that he'll make research on it and will let us know when to stop it. As per MD he can't find anything , he added to continue to give the gentamycin BID x 3 weeks and re-eval with him. He added to send pictures every Sunday.
[2024-11-05 21:07] VITALS: BP 154/86; PULSE 94
[2024-11-05] MEDS: SENNOSIDES 8.6 MG TABLET 17.2 MG GT (21:07)
[2024-11-05] MEDS: LOSARTAN 100 MG TABLET GT (21:07)
[2024-11-06] VITALS (8 sets, daily range): BP systolic 102–146; BP diastolic 63–94; PULSE 64–113; RESP 18–24; TEMP 36.2–37; O2SAT 96–98; BMI 26.1
[2024-11-06] MEDS: ESOMEPRAZOLE 40 MG GT (08:05)
[2024-11-06] MEDS: GENTAMICIN 0.3% OPHTH DROPS 75 DROP/5 ML BTL OPHTHALMIC ×2 (08:06→20:49)
[2024-11-06] MEDS: MULTIVIT-MIN/IRON FUM/FOLIC AC 1 EACH TABLET GT (08:06)
[2024-11-06] MEDS: SODIUM CHLORIDE TAB 1,000 MG TABLET.SOL 1000 MG GT ×2 (08:06→20:51)
[2024-11-06] MEDS: SOD PHOS DI, MONO/K PHOS MONO 250 MG TABLET GT (08:06)
[2024-11-06] MEDS: LOSARTAN 100 MG TABLET GT (20:50)
[2024-11-06] MEDS: SENNOSIDES 8.6 MG TABLET 17.2 MG GT (20:51)
--- NOTE | 2024-11-06 22:32 | ESPR_ITS ---
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 (2) Epilepsy, unspecified, not intractable, without status epilepticus: Status: Chronic (3) Essential (primary) hypertension: Status: Chronic (4) Tracheostomy status: Status: Chronic (5) Gastrostomy status: Status: Chronic (6) Chronic respiratory failure, unspecified whether with hypoxia or hypercapnia: Status: Chronic (7) Chronic hyponatremia: Status: Chronic SUBJECTIVE Fever:: none GI:: none Shortness of Breath:: none GI:: no complaints Pain:: none OBJECTIVE Most recent vital signs: Last Vital Signs Temp 97.3 F 11/06/24 17:51 Pulse 99 11/06/24 20:50 Resp 23 H 11/06/24 17:51 BP 117/80 11/06/24 20:50 Pulse Ox 98 11/06/24 17:51 O2 Del Method Blow-by 11/06/24 05:39 O2 Flow Rate 10 11/06/24 06:58 FiO2 35 11/06/24 06:58 Neurological:: alert Speech:: nods head, mouths words (sometimes) and appropriate Answers questions:: sometimes Respiratory:: shallow breathing Cardiovascular: RRR Abdomen: soft and nontender Extremities:: deformities Decubitus:: none Tracheostomy:: to blow by Feeding per:: G tube Complaints:: none ASSESSMENT & PLAN Assessment: 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 No pain issues, and remains comfortable. Ice chips for some oral gratification tried with success without any cough or aspiration and continued.Remains fully dependent for care. interacts some and mostly happy. Tendency for Hypo-natremia on labs being monitored and addressed. No clinical change. Electrolytes improved. monitored regularly. Observed to be having eye inflammation and samples taken and antibiotics initiated. Pt remains fully dependent for care. No discomfort / pain. VSS. No new issues. Family updated from time to time Plan: All treatment reviewed and continued.
[2024-11-07] VITALS (7 sets, daily range): BP systolic 114–148; BP diastolic 70–84; PULSE 70–93; RESP 17–21; TEMP 36.2–36.5; O2SAT 7–99
[2024-11-07] MEDS: ALBUTEROL INHALER 200 PUFF/INH INHALER INH (02:18)
[2024-11-07] MEDS: MULTIVIT-MIN/IRON FUM/FOLIC AC 1 EACH TABLET GT (08:30)
[2024-11-07] MEDS: GENTAMICIN 0.3% OPHTH DROPS 75 DROP/5 ML BTL OPHTHALMIC ×2 (08:30→21:01)
[2024-11-07] MEDS: ESOMEPRAZOLE 40 MG GT (08:30)
[2024-11-07] MEDS: SOD PHOS DI, MONO/K PHOS MONO 250 MG TABLET GT (08:30)
[2024-11-07] MEDS: SODIUM CHLORIDE TAB 1,000 MG TABLET.SOL 1000 MG GT ×2 (08:31→21:01)
--- NOTE | 2024-11-07 13:47 | PC.SS ---
Room visit: Resident is laying in bed with head of the bed elevated with bryson light properly placed with no signs of distress. Resident will remain in current care as she has no changes in care or condition she remains on blow by with GT in place. Resident is unable to make needs known as she has absence of speech, her daughter is her decision maker. She will remain in current care and will conitue to have all subacute care needs met by staff.
[2024-11-07] MEDS: SENNOSIDES 8.6 MG TABLET 17.2 MG GT (21:01)
[2024-11-07] MEDS: LOSARTAN 100 MG TABLET GT (21:01)
[2024-11-08] VITALS (7 sets, daily range): BP systolic 127–139; BP diastolic 79–83; PULSE 75–88; RESP 18–22; TEMP 36–36.4; O2SAT 97–100
[2024-11-08] MEDS: MULTIVIT-MIN/IRON FUM/FOLIC AC 1 EACH TABLET GT (10:15)
[2024-11-08] MEDS: ESOMEPRAZOLE 40 MG GT (10:15)
[2024-11-08] MEDS: GENTAMICIN 0.3% OPHTH DROPS 75 DROP/5 ML BTL OPHTHALMIC ×2 (10:15→21:08)
[2024-11-08] MEDS: SOD PHOS DI, MONO/K PHOS MONO 250 MG TABLET GT (10:15)
[2024-11-08] MEDS: SODIUM CHLORIDE TAB 1,000 MG TABLET.SOL 1000 MG GT ×2 (10:16→21:09)
[2024-11-08] MEDS: LOSARTAN 100 MG TABLET GT (21:08)
[2024-11-08] MEDS: SENNOSIDES 8.6 MG TABLET 17.2 MG GT (21:08)
[2024-11-09] VITALS (7 sets, daily range): BP systolic 105–134; BP diastolic 67–85; PULSE 76–101; RESP 18–20; TEMP 35.9–37.6; O2SAT 96–99
[2024-11-09] MEDS: ESOMEPRAZOLE 40 MG GT (08:36)
[2024-11-09] MEDS: GENTAMICIN 0.3% OPHTH DROPS 75 DROP/5 ML BTL OPHTHALMIC ×2 (08:37→20:21)
[2024-11-09] MEDS: SOD PHOS DI, MONO/K PHOS MONO 250 MG TABLET GT (08:37)
[2024-11-09] MEDS: MULTIVIT-MIN/IRON FUM/FOLIC AC 1 EACH TABLET GT (08:37)
[2024-11-09] MEDS: SODIUM CHLORIDE TAB 1,000 MG TABLET.SOL 1000 MG GT ×2 (08:39→20:22)
[2024-11-09] MEDS: ACETAMINOPHEN 325 MG TABLET 650 MG GT (11:20)
[2024-11-09] MEDS: SENNOSIDES 8.6 MG TABLET 17.2 MG GT (20:21)
[2024-11-10] VITALS (9 sets, daily range): BP systolic 106–177; BP diastolic 78–92; PULSE 72–89; RESP 16–24; TEMP 36.1–36.4; O2SAT 93–99
[2024-11-10] MEDS: ALBUTEROL INHALER 200 PUFF/INH INHALER INH (01:08)
[2024-11-10] MEDS: SODIUM CHLORIDE TAB 1,000 MG TABLET.SOL 1000 MG GT ×2 (08:06→20:35)
[2024-11-10] MEDS: MULTIVIT-MIN/IRON FUM/FOLIC AC 1 EACH TABLET GT (08:06)
[2024-11-10] MEDS: GENTAMICIN 0.3% OPHTH DROPS 75 DROP/5 ML BTL OPHTHALMIC ×2 (08:06→20:35)
[2024-11-10] MEDS: SOD PHOS DI, MONO/K PHOS MONO 250 MG TABLET GT (08:06)
[2024-11-10] MEDS: ESOMEPRAZOLE 40 MG GT (08:06)
[2024-11-10] MEDS: ACETAMINOPHEN 325 MG TABLET 650 MG GT (12:00)
[2024-11-10] MEDS: LOSARTAN 100 MG TABLET GT (20:35)
[2024-11-10] MEDS: SENNOSIDES 8.6 MG TABLET 17.2 MG GT (20:35)
--- NOTE | 2024-11-10 20:50 | PD.SAPROG ---
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 (2) Epilepsy, unspecified, not intractable, without status epilepticus: Status: Chronic (3) Essential (primary) hypertension: Status: Chronic (4) Tracheostomy status: Status: Chronic (5) Gastrostomy status: Status: Chronic (6) Chronic respiratory failure, unspecified whether with hypoxia or hypercapnia: Status: Chronic (7) Chronic hyponatremia: Status: Chronic SUBJECTIVE Fever:: none GI:: none Shortness of Breath:: none GI:: no complaints Pain:: none OBJECTIVE Most recent vital signs: Last Vital Signs Temp 97.2 F 11/10/24 18:00 Pulse 72 11/10/24 20:35 Resp 16 11/10/24 18:00 BP 161/78 H 11/10/24 20:35 Pulse Ox 98 11/10/24 18:00 O2 Del Method Blow-by 11/10/24 18:00 O2 Flow Rate 10 11/10/24 15:04 FiO2 35 11/10/24 15:04 Neurological:: alert Speech:: nods head, mouths words (sometimes) and appropriate Answers questions:: sometimes Respiratory:: shallow breathing Cardiovascular: RRR Abdomen: soft and nontender Extremities:: deformities Decubitus:: none Tracheostomy:: to blow by Feeding per:: G tube Complaints:: none ASSESSMENT & PLAN Assessment: 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 No pain issues, and remains comfortable. Ice chips for some oral gratification tried with success without any cough or aspiration and continued.Remains fully dependent for care. interacts some and mostly happy. Tendency for Hypo-natremia on labs being monitored and addressed. No clinical change. Electrolytes improved. monitored regularly. Observed to be having eye inflammation and samples taken and antibiotics initiated. Pt remains fully dependent for care. No discomfort / pain. VSS. No new issues. Family updated from time to time Plan: All treatment reviewed and continued.
[2024-11-11] VITALS (8 sets, daily range): BP systolic 144–165; BP diastolic 71–90; PULSE 77–90; RESP 18–22; TEMP 35.9–36.5; O2SAT 95–99
[2024-11-11] MEDS: SOD PHOS DI, MONO/K PHOS MONO 250 MG TABLET GT (08:10)
[2024-11-11] MEDS: GENTAMICIN 0.3% OPHTH DROPS 75 DROP/5 ML BTL OPHTHALMIC ×2 (08:10→20:39)
[2024-11-11] MEDS: MULTIVIT-MIN/IRON FUM/FOLIC AC 1 EACH TABLET GT (08:10)
[2024-11-11] MEDS: SODIUM CHLORIDE TAB 1,000 MG TABLET.SOL 1000 MG GT ×2 (08:10→20:42)
[2024-11-11] MEDS: ESOMEPRAZOLE 40 MG GT (08:10)
[2024-11-11] MEDS: ACETAMINOPHEN 325 MG TABLET 650 MG GT (08:20)
[2024-11-11] MEDS: LOSARTAN 100 MG TABLET GT (20:39)
[2024-11-11] MEDS: SENNOSIDES 8.6 MG TABLET 17.2 MG GT (20:40)
[2024-11-12] VITALS (7 sets, daily range): BP systolic 133–160; BP diastolic 83–94; PULSE 71–92; RESP 18–22; TEMP 36.1–36.3; O2SAT 97–99
[2024-11-12] MEDS: SOD PHOS DI, MONO/K PHOS MONO 250 MG TABLET GT (08:11)
[2024-11-12] MEDS: ESOMEPRAZOLE 40 MG GT (08:11)
[2024-11-12] MEDS: SODIUM CHLORIDE TAB 1,000 MG TABLET.SOL 1000 MG GT ×2 (08:11→21:30)
[2024-11-12] MEDS: MULTIVIT-MIN/IRON FUM/FOLIC AC 1 EACH TABLET GT (08:11)
[2024-11-12] MEDS: GENTAMICIN 0.3% OPHTH DROPS 75 DROP/5 ML BTL OPHTHALMIC ×2 (08:11→21:29)
--- NOTE | 2024-11-12 15:04 | PC.SS ---
Room visit: Resident is laying in bed with head of the bed elevated with call light properly placed with no signs of distress. She is unable to make needs known,m her daughter Homa is her decision maker. Resident will remain in current care as there are no changes in care or condition, she remains on BB with trach in place and GT for medication and nutrition. Resident will continue to have all subacute care needs met by staff. This SSD will continue to make daily contact with resident and will offer support as she will accept.
[2024-11-12] MEDS: SENNOSIDES 8.6 MG TABLET 17.2 MG GT (21:30)
[2024-11-12] MEDS: LOSARTAN 100 MG TABLET GT (21:30)
[2024-11-13] VITALS (8 sets, daily range): BP systolic 118–162; BP diastolic 81–85; PULSE 78–87; RESP 18–20; TEMP 36.1–36.7; O2SAT 97–99
[2024-11-13] MEDS: ESOMEPRAZOLE 40 MG GT (08:04)
[2024-11-13] MEDS: GENTAMICIN 0.3% OPHTH DROPS 75 DROP/5 ML BTL OPHTHALMIC ×2 (08:04→20:50)
[2024-11-13] MEDS: SOD PHOS DI, MONO/K PHOS MONO 250 MG TABLET GT (08:04)
[2024-11-13] MEDS: SODIUM CHLORIDE TAB 1,000 MG TABLET.SOL 1000 MG GT ×2 (08:04→20:51)
[2024-11-13] MEDS: MULTIVIT-MIN/IRON FUM/FOLIC AC 1 EACH TABLET GT (08:04)
[2024-11-13] MEDS: SENNOSIDES 8.6 MG TABLET 17.2 MG GT (20:50)
[2024-11-13] MEDS: LOSARTAN 100 MG TABLET GT (20:50)
[2024-11-14] VITALS (7 sets, daily range): BP systolic 137–152; BP diastolic 84–97; PULSE 69–86; RESP 18–22; TEMP 36.1–36.4; O2SAT 97–99
[2024-11-14] MEDS: SOD PHOS DI, MONO/K PHOS MONO 250 MG TABLET GT (08:28)
[2024-11-14] MEDS: GENTAMICIN 0.3% OPHTH DROPS 75 DROP/5 ML BTL OPHTHALMIC ×2 (08:28→20:00)
[2024-11-14] MEDS: ESOMEPRAZOLE 40 MG GT (08:28)
[2024-11-14] MEDS: MULTIVIT-MIN/IRON FUM/FOLIC AC 1 EACH TABLET GT (08:28)
[2024-11-14] MEDS: SODIUM CHLORIDE TAB 1,000 MG TABLET.SOL 1000 MG GT ×2 (08:29→20:00)
--- NOTE | 2024-11-14 13:40 | PD.SAPROG ---
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 (2) Epilepsy, unspecified, not intractable, without status epilepticus: Status: Chronic (3) Essential (primary) hypertension: Status: Chronic (4) Tracheostomy status: Status: Chronic (5) Gastrostomy status: Status: Chronic (6) Chronic respiratory failure, unspecified whether with hypoxia or hypercapnia: Status: Chronic (7) Chronic hyponatremia: Status: Chronic SUBJECTIVE Fever:: none GI:: none Shortness of Breath:: none GI:: no complaints Pain:: none OBJECTIVE Most recent vital signs: Last Vital Signs Temp 97.6 F 11/16/24 06:00 Pulse 80 11/16/24 06:40 Resp 20 11/16/24 06:40 BP 119/88 H 11/16/24 06:00 Pulse Ox 98 11/16/24 06:40 O2 Del Method Blow-by 11/13/24 17:20 O2 Flow Rate 8 11/16/24 06:40 FiO2 30 11/16/24 06:40 Neurological:: alert Speech:: nods head, mouths words (sometimes) and appropriate Answers questions:: sometimes Respiratory:: shallow breathing Cardiovascular: RRR Abdomen: soft and nontender Extremities:: deformities Decubitus:: none Tracheostomy:: to blow by Feeding per:: G tube Complaints:: none ASSESSMENT & PLAN Assessment: 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 No pain issues, and remains comfortable. Ice chips for some oral gratification tried with success without any cough or aspiration and continued.Remains fully dependent for care. interacts some and mostly happy. Tendency for Hypo-natremia on labs being monitored and addressed. No clinical change. Electrolytes improved. monitored regularly. Observed to be having eye inflammation and samples taken and antibiotics initiated. Pt remains fully dependent for care. No discomfort / pain. VSS. No new issues. Family updated from time to time Plan: All treatment reviewed and continued.
[2024-11-14] MEDS: ACETAMINOPHEN 325 MG TABLET 650 MG GT (14:30)
[2024-11-14] MEDS: LOSARTAN 100 MG TABLET GT (20:00)
[2024-11-14] MEDS: SENNOSIDES 8.6 MG TABLET 17.2 MG GT (20:00)
[2024-11-15] VITALS (7 sets, daily range): BP systolic 117–165; BP diastolic 73–95; PULSE 70–92; RESP 18–21; TEMP 36–36.6; O2SAT 96–98
[2024-11-15] MEDS: SODIUM CHLORIDE TAB 1,000 MG TABLET.SOL 1000 MG GT ×2 (08:05→20:28)
[2024-11-15] MEDS: ESOMEPRAZOLE 40 MG GT (08:05)
[2024-11-15] MEDS: GENTAMICIN 0.3% OPHTH DROPS 75 DROP/5 ML BTL OPHTHALMIC ×2 (08:05→20:10)
[2024-11-15] MEDS: SOD PHOS DI, MONO/K PHOS MONO 250 MG TABLET GT (08:05)
[2024-11-15] MEDS: MULTIVIT-MIN/IRON FUM/FOLIC AC 1 EACH TABLET GT (08:05)
[2024-11-15] MEDS: SENNOSIDES 8.6 MG TABLET 17.2 MG GT (20:28)
[2024-11-15] MEDS: LOSARTAN 100 MG TABLET GT (20:28)
[2024-11-16] VITALS (7 sets, daily range): BP systolic 119–138; BP diastolic 80–94; PULSE 71–87; RESP 18–23; TEMP 35.9–36.4; O2SAT 97–98
[2024-11-16] MEDS: SOD PHOS DI, MONO/K PHOS MONO 250 MG TABLET GT (08:23)
[2024-11-16] MEDS: MULTIVIT-MIN/IRON FUM/FOLIC AC 1 EACH TABLET GT (08:23)
[2024-11-16] MEDS: ESOMEPRAZOLE 40 MG GT (08:23)
[2024-11-16] MEDS: GENTAMICIN 0.3% OPHTH DROPS 75 DROP/5 ML BTL OPHTHALMIC ×2 (08:23→20:15)
[2024-11-16] MEDS: SODIUM CHLORIDE TAB 1,000 MG TABLET.SOL 1000 MG GT ×2 (08:24→20:15)
[2024-11-16] MEDS: LOSARTAN 100 MG TABLET GT (20:14)
[2024-11-16] MEDS: SENNOSIDES 8.6 MG TABLET 17.2 MG GT (20:14)
[2024-11-17] VITALS: BP 152/98; PULSE 94; RESP 20; TEMP 36.4
[2024-11-17 06:00] VITALS: BP 136/95; PULSE 88; RESP 20; TEMP 36.3; O2SAT 97
[2024-11-17 06:18] VITALS: PULSE 90; RESP 18; O2SAT 97
[2024-11-17] MEDS: ESOMEPRAZOLE 40 MG GT (08:26)
[2024-11-17] MEDS: SOD PHOS DI, MONO/K PHOS MONO 250 MG TABLET GT (08:27)
[2024-11-17] MEDS: MULTIVIT-MIN/IRON FUM/FOLIC AC 1 EACH TABLET GT (08:27)
[2024-11-17] MEDS: GENTAMICIN 0.3% OPHTH DROPS 75 DROP/5 ML BTL OPHTHALMIC ×2 (08:27→20:11)
[2024-11-17] MEDS: SODIUM CHLORIDE TAB 1,000 MG TABLET.SOL 1000 MG GT ×2 (08:27→20:12)
[2024-11-17 11:36] VITALS: BP 135/86; PULSE 91; RESP 20; TEMP 36.2
[2024-11-17 17:24] VITALS: BP 137/81; PULSE 80; RESP 21; TEMP 36.2; O2SAT 97
[2024-11-17 20:11] VITALS: BP 136/75; PULSE 88
[2024-11-17] MEDS: LOSARTAN 100 MG TABLET GT (20:11)
[2024-11-17] MEDS: SENNOSIDES 8.6 MG TABLET 17.2 MG GT (20:12)
[2024-11-17] MEDS: MAGNESIUM HYDROXIDE 30 ML ORAL SUSP ML GT (20:24)
[2024-11-18] VITALS (7 sets, daily range): BP systolic 102–156; BP diastolic 73–85; PULSE 72–101; RESP 16–23; TEMP 36.1–36.5; O2SAT 92–98
[2024-11-18] MEDS: ESOMEPRAZOLE 40 MG GT (08:12)
[2024-11-18] MEDS: GENTAMICIN 0.3% OPHTH DROPS 75 DROP/5 ML BTL OPHTHALMIC ×2 (08:12→20:51)
[2024-11-18] MEDS: SOD PHOS DI, MONO/K PHOS MONO 250 MG TABLET GT (08:12)
[2024-11-18] MEDS: MULTIVIT-MIN/IRON FUM/FOLIC AC 1 EACH TABLET GT (08:14)
[2024-11-18] MEDS: SODIUM CHLORIDE TAB 1,000 MG TABLET.SOL 1000 MG GT ×2 (08:14→20:51)
--- NOTE | 2024-11-18 13:25 | ESPR_ITS ---
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 (2) Epilepsy, unspecified, not intractable, without status epilepticus: Status: Chronic (3) Essential (primary) hypertension: Status: Chronic (4) Tracheostomy status: Status: Chronic (5) Gastrostomy status: Status: Chronic (6) Chronic respiratory failure, unspecified whether with hypoxia or hypercapnia: Status: Chronic (7) Chronic hyponatremia: Status: Chronic SUBJECTIVE Fever:: none GI:: none Shortness of Breath:: none GI:: no complaints Pain:: none OBJECTIVE Most recent vital signs: Last Vital Signs Temp 99.4 F 11/23/24 18:00 Pulse 107 H 11/23/24 21:02 Resp 20 11/23/24 18:10 BP 125/82 11/23/24 21:02 Pulse Ox 98 11/23/24 18:10 O2 Del Method Blow-by 11/23/24 18:00 O2 Flow Rate 10 11/23/24 18:10 FiO2 30 11/23/24 18:10 Neurological:: alert Speech:: nods head, mouths words (sometimes) and appropriate Answers questions:: sometimes Respiratory:: shallow breathing Cardiovascular: RRR Abdomen: soft and nontender Extremities:: deformities Decubitus:: none Tracheostomy:: to blow by Feeding per:: G tube Complaints:: none ASSESSMENT & PLAN Assessment: 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 No pain issues, and remains comfortable. Ice chips for some oral gratification tried with success without any cough or aspiration and continued.Remains fully dependent for care. interacts some and mostly happy. Tendency for Hypo-natremia on labs being monitored and addressed. No clinical change. Electrolytes improved. monitored regularly. Observed to be having eye inflammation and samples taken and antibiotics initiated. Pt remains fully dependent for care. No discomfort / pain. VSS. No new issues. Family updated from time to time Plan: All treatment reviewed and continued.
[2024-11-18] MEDS: LOSARTAN 100 MG TABLET GT (20:51)
[2024-11-18] MEDS: SENNOSIDES 8.6 MG TABLET 17.2 MG GT (20:51)
[2024-11-19] VITALS (7 sets, daily range): BP systolic 121–176; BP diastolic 78–88; PULSE 73–84; RESP 17–20; TEMP 36–36.3; O2SAT 94–100
[2024-11-19] MEDS: ESOMEPRAZOLE 40 MG GT (08:06)
[2024-11-19] MEDS: GENTAMICIN 0.3% OPHTH DROPS 75 DROP/5 ML BTL OPHTHALMIC ×2 (08:06→20:39)
[2024-11-19] MEDS: SODIUM CHLORIDE TAB 1,000 MG TABLET.SOL 1000 MG GT ×2 (08:06→20:40)
[2024-11-19] MEDS: MULTIVIT-MIN/IRON FUM/FOLIC AC 1 EACH TABLET GT (08:06)
[2024-11-19] MEDS: SOD PHOS DI, MONO/K PHOS MONO 250 MG TABLET GT (08:06)
[2024-11-19] MEDS: LOSARTAN 100 MG TABLET GT (20:40)
[2024-11-19] MEDS: SENNOSIDES 8.6 MG TABLET 17.2 MG GT (20:40)
[2024-11-20] VITALS (7 sets, daily range): BP systolic 99–155; BP diastolic 66–89; PULSE 74–87; RESP 18–20; TEMP 36.2–36.6; O2SAT 95–98
[2024-11-20] MEDS: ESOMEPRAZOLE 40 MG GT (08:04)
[2024-11-20] MEDS: SOD PHOS DI, MONO/K PHOS MONO 250 MG TABLET GT (08:05)
[2024-11-20] MEDS: SODIUM CHLORIDE TAB 1,000 MG TABLET.SOL 1000 MG GT ×2 (08:05→20:28)
[2024-11-20] MEDS: MULTIVIT-MIN/IRON FUM/FOLIC AC 1 EACH TABLET GT (08:05)
[2024-11-20] MEDS: GENTAMICIN 0.3% OPHTH DROPS 75 DROP/5 ML BTL OPHTHALMIC ×2 (08:05→20:27)
[2024-11-20] MEDS: LOSARTAN 100 MG TABLET GT (20:27)
[2024-11-20] MEDS: CARBAMIDE PEROXIDE OTIC SOL 15 ML BTL 5 DROP BOTH EARS (20:27)
[2024-11-20] MEDS: SENNOSIDES 8.6 MG TABLET 17.2 MG GT (20:27)
[2024-11-21] VITALS (7 sets, daily range): BP systolic 105–168; BP diastolic 72–96; PULSE 64–101; RESP 18–22; TEMP 36.2–36.6; O2SAT 92–99
[2024-11-21] MEDS: CARBAMIDE PEROXIDE OTIC SOL 15 ML BTL 5 DROP BOTH EARS ×2 (08:29→20:08)
[2024-11-21] MEDS: SOD PHOS DI, MONO/K PHOS MONO 250 MG TABLET GT (08:30)
[2024-11-21] MEDS: ESOMEPRAZOLE 40 MG GT (08:30)
[2024-11-21] MEDS: GENTAMICIN 0.3% OPHTH DROPS 75 DROP/5 ML BTL OPHTHALMIC ×2 (08:30→20:08)
[2024-11-21] MEDS: SODIUM CHLORIDE TAB 1,000 MG TABLET.SOL 1000 MG GT ×2 (08:30→20:09)
[2024-11-21] MEDS: MULTIVIT-MIN/IRON FUM/FOLIC AC 1 EACH TABLET GT (08:30)
[2024-11-21] MEDS: SENNOSIDES 8.6 MG TABLET 17.2 MG GT (20:08)
[2024-11-21] MEDS: LOSARTAN 100 MG TABLET GT (20:08)
[2024-11-22] VITALS: BP 140/94; PULSE 87; RESP 19; TEMP 36.2
[2024-11-22 05:32] VITALS: BP 141/95; PULSE 82; RESP 18; TEMP 36.2; O2SAT 98
[2024-11-22 07:37] VITALS: PULSE 49; RESP 18; O2SAT 98
[2024-11-22] MEDS: SODIUM CHLORIDE TAB 1,000 MG TABLET.SOL 1000 MG GT ×2 (08:37→21:25)
[2024-11-22] MEDS: MULTIVIT-MIN/IRON FUM/FOLIC AC 1 EACH TABLET GT (08:37)
[2024-11-22] MEDS: SOD PHOS DI, MONO/K PHOS MONO 250 MG TABLET GT (08:37)
[2024-11-22] MEDS: ESOMEPRAZOLE 40 MG GT (08:37)
[2024-11-22] MEDS: ACETAMINOPHEN 325 MG TABLET 650 MG GT (08:38)
--- NOTE | 2024-11-22 10:43 | PC.NURSE ---
Sent eye pictures to Dr. Ulrich, he advised to to continue same medication and lid hygiene.
[2024-11-22 11:31] VITALS: BP 147/86; PULSE 86; RESP 19; TEMP 36.2
[2024-11-22] MEDS: GENTAMICIN 0.3% OPHTH DROPS 75 DROP/5 ML BTL OPHTHALMIC ×3 (12:30→21:24)
[2024-11-22 17:20] VITALS: BP 152/85; PULSE 87; RESP 16; TEMP 36.3; O2SAT 98
[2024-11-22 21:25] VITALS: BP 152/85; PULSE 87
[2024-11-22] MEDS: LOSARTAN 100 MG TABLET GT (21:25)
[2024-11-22] MEDS: SENNOSIDES 8.6 MG TABLET 17.2 MG GT (21:25)
--- NOTE | 2024-11-22 23:23 | PD.SAPROG ---
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 (2) Epilepsy, unspecified, not intractable, without status epilepticus: Status: Chronic (3) Essential (primary) hypertension: Status: Chronic (4) Tracheostomy status: Status: Chronic (5) Gastrostomy status: Status: Chronic (6) Chronic respiratory failure, unspecified whether with hypoxia or hypercapnia: Status: Chronic (7) Chronic hyponatremia: Status: Chronic SUBJECTIVE Fever:: none GI:: none Shortness of Breath:: none GI:: no complaints Pain:: none OBJECTIVE Most recent vital signs: Last Vital Signs Temp 97.3 F 11/22/24 17:20 Pulse 87 11/22/24 21:25 Resp 16 11/22/24 17:20 BP 152/85 H 11/22/24 21:25 Pulse Ox 98 11/22/24 17:20 O2 Del Method Blow-by 11/22/24 17:20 O2 Flow Rate 6 11/22/24 07:37 FiO2 28 11/22/24 07:37 Neurological:: alert Speech:: nods head, mouths words (sometimes) and appropriate Answers questions:: sometimes Respiratory:: shallow breathing Cardiovascular: RRR Abdomen: soft and nontender Extremities:: deformities Decubitus:: none Tracheostomy:: to blow by Feeding per:: G tube Complaints:: none ASSESSMENT & PLAN Assessment: 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 No pain issues, and remains comfortable. Ice chips for some oral gratification tried with success without any cough or aspiration and continued.Remains fully dependent for care. interacts some and mostly happy. Tendency for Hypo-natremia on labs being monitored and addressed. No clinical change. Electrolytes improved. monitored regularly. Observed to be having eye inflammation and samples taken and antibiotics initiated. Pt remains fully dependent for care. No discomfort / pain. VSS. No new issues. Family updated from time to time Plan: All treatment reviewed and continued.
[2024-11-23] VITALS (8 sets, daily range): BP systolic 113–143; BP diastolic 70–82; PULSE 50–125; RESP 18–22; TEMP 35.9–38.8; O2SAT 95–99
[2024-11-23] MEDS: GENTAMICIN 0.3% OPHTH DROPS 75 DROP/5 ML BTL OPHTHALMIC ×4 (05:45→21:02)
[2024-11-23] MEDS: ESOMEPRAZOLE 40 MG GT (08:04)
[2024-11-23] MEDS: MULTIVIT-MIN/IRON FUM/FOLIC AC 1 EACH TABLET GT (08:04)
[2024-11-23] MEDS: SOD PHOS DI, MONO/K PHOS MONO 250 MG TABLET GT (08:04)
[2024-11-23] MEDS: SODIUM CHLORIDE TAB 1,000 MG TABLET.SOL 1000 MG GT ×2 (08:04→21:03)
[2024-11-23] MEDS: ACETAMINOPHEN 325 MG TABLET 650 MG GT ×2 (10:50→17:00)
[2024-11-23 17:54] LABS: COVID-19 Antigen (In-House) Negative (Negative)
[2024-11-23 17:56] LABS: Basophils # (Auto) 0.1 Thou/mm3 (0.0-0.2); Basophils % (Auto) 0 % (0-2.5); Eosinophils # (Auto) 0.2 Thou/mm3 (0.0-0.5); Eosinophils % (Auto) 1 % (0-10); Hematocrit 30.0 % (36.0-46.0); Hemoglobin 10.7 g/dL (12.0-16.0); Immature Granulocytes Auto 0.04 Thou/mm3 (0.00-0.00); Lymphocytes # (Auto) 0.8 Thou/mm3 (1.0-4.8); Lymphocytes % (Auto) 6 % (10-50); Mean Corpuscular HGB Conc 35.7 g/dl (31.0-37.0); Mean Corpuscular Hemoglobin 29.8 pg (25.0-35.0); Mean Corpuscular Volume 84 fL (80-100); Monocytes # (Auto) 1.2 Thou/mm3 (0.0-0.8); Monocytes % (Auto) 8 % (0-12); Neutrophils # (Auto) 12.2 Thou/mm3 (1.8-7.7); Neutrophils % (Auto) 84 % (37-80); Nucleated Red Blood Cell # 0.00 Thou/mm3 (0.00-0.00); Nucleated Red Blood Cell % 0 /100 WBC (0); Platelet Count 302 Thou/mm3 (140-440); RDW Standard Deviation 38.9 fL (36.4-46.3); Red Blood Count 3.59 Miln/mm3 (4.00-5.20); White Blood Count 14.4 Thou/mm3 (3.6-11.0)
[2024-11-23 17:59] LABS: Influenza A Ag Negative; Influenza B Ag Negative
[2024-11-23] MEDS: ALBUTEROL INHALER 200 PUFF/INH INHALER INH (18:10)
[2024-11-23] MEDS: IPRATROPIUM BROMIDE 200 PUFF/INH INHALER INH (18:11)
[2024-11-23 18:36] LABS: Collection Type, Urine Catheter
[2024-11-23 18:45] LABS: Procalcitonin 0.10 ng/ml (0.0-0.49)
[2024-11-23 18:46] LABS: Bilirubin,Urine Negative (Negative); Blood,Urine Negative (Negative); Clarity,Urine Clear (Clear/Hazy); Color,Urine Lt-Yellow (Lt Yel-Yel); Culture Indicated,Urine Not Indicated; Glucose, Urine Negative (Negative); Ketones,Urine Negative (Negative); Leukocyte Esterase,Urine Negative (Negative); Nitrite,Urine Negative (Negative); PH,Urine 6.0 (5.0-7.0); Protein,Urine Negative (Neg - Trace); RBC,Urine 1 /hpf (0-3); Specific Gravity,Urine 1.017 (1.001-1.035); Squamous Epithelial Cell,Urine < 1 /hpf (0-5); Urobilinogen,Urine Negative mg/dL (0.0-1.0); WBC,Urine 6 /hpf (0-5)
--- NOTE | 2024-11-23 21:01 | PC.RT ---
sputum sample collected and sent to lab at 1810
[2024-11-23] MEDS: CARBAMIDE PEROXIDE OTIC SOL 15 ML BTL 5 DROP BOTH EARS (21:02)
[2024-11-23] MEDS: LOSARTAN 100 MG TABLET GT (21:02)
[2024-11-23] MEDS: SENNOSIDES 8.6 MG TABLET 17.2 MG GT (21:02)
[2024-11-24] VITALS (10 sets, daily range): BP systolic 115–135; BP diastolic 69–84; PULSE 61–94; RESP 16–32; TEMP 36.1–37.9; O2SAT 94–100
[2024-11-24] MEDS: IPRATROPIUM BROMIDE 200 PUFF/INH INHALER INH (05:32)
[2024-11-24] MEDS: ALBUTEROL INHALER 200 PUFF/INH INHALER INH (05:32)
--- NOTE | 2024-11-24 05:36 | XR_ITS ---
Examination: AP chest single view Technique one AP portable semiupright chest single view Date and time: November 24, 2024 0745 hours INDICATIONS: Increasing shortness of breath today. FINDINGS: Minimal prominence left ventricle Ectatic thoracic aorta Subsegmental atelectasis in the right lung Mild vascular congestion. Mild elevation right hemidiaphragm. No pneumonia or pulmonary edema IMPRESSION: Mild vascular congestion
[2024-11-24] MEDS: GENTAMICIN 0.3% OPHTH DROPS 75 DROP/5 ML BTL OPHTHALMIC ×4 (05:37→20:35)
[2024-11-24] MEDS: ACETAMINOPHEN 325 MG TABLET 650 MG GT (05:55)
[2024-11-24] MEDS: MULTIVIT-MIN/IRON FUM/FOLIC AC 1 EACH TABLET GT (08:57)
[2024-11-24] MEDS: SODIUM CHLORIDE TAB 1,000 MG TABLET.SOL 1000 MG GT ×2 (08:57→20:35)
[2024-11-24] MEDS: SOD PHOS DI, MONO/K PHOS MONO 250 MG TABLET GT (08:57)
[2024-11-24] MEDS: ESOMEPRAZOLE 40 MG GT (08:57)
--- NOTE | 2024-11-24 10:05 | PC.NURSE ---
0943- Resident noted with increased respirations and use of accessory muscles. Vital signs as follows BP 115/73, P87, R30. 98.9, 95%. Resident is on blow by at 10L 35%. Moderate amount of white frothy secretions noted. Suctioned resident and HOB elevated. Continuous pulse oximetry placed on resident by RT. Resident is resting in bed with eyes open and call light is within reach. Charge nurse notified. Will continue to monitor.
--- NOTE | 2024-11-24 10:35 | PC.NURSE ---
Called Dr Gonsalez and verbally reported resident's chest x-ray result. made aware of the labs drawn yesterday. Resident using accessory muscles in breathing with V/S taken as follows: 115/73, 87, 30, 98.9 , 95% on BB 35% 10L with frothy secretions. Order received from Dr Gonsalez for albuterol nebulizer q 8hrs x 3 days and lavange with NS if needed. Called RT on duty and made aware of the orders.
[2024-11-24] MEDS: ALBUTEROL NEB 2.5 MG/3 ML VIAL.NEB INH ×3 (12:32→22:59)
--- NOTE | 2024-11-24 13:49 | PC.NURSE ---
Late entry for 11/23/24 DAY shift: Pt. was seen with facial grimacing and using accessory muscles for respirations. PRN acetaminophen 2 TABS 650mg via GT was given at 1050. At 1200, Patient HR was at 125 with rectal temp of 101.8. RN on duty notified and MD was informed of pt. condition. Cooling measures done on pt. PRN acetaminophen 2 TABS 650mg via GT given at 1700 for continued facial grimacing and increased HR. MD ordered labs, sputum culture, UA. All new orders carried out. AT 1800, rectal temp is 99.4 with HR of 107. Will continue with current plan of care.
[2024-11-24] MEDS: LOSARTAN 100 MG TABLET GT (20:35)
[2024-11-24] MEDS: SENNOSIDES 8.6 MG TABLET 17.2 MG GT (20:36)
[2024-11-25] VITALS (8 sets, daily range): BP systolic 130–149; BP diastolic 82–86; PULSE 77–89; RESP 18–24; TEMP 36.2–37.9; O2SAT 95–98
[2024-11-25] MEDS: GENTAMICIN 0.3% OPHTH DROPS 75 DROP/5 ML BTL OPHTHALMIC ×4 (05:09→21:19)
[2024-11-25] MEDS: ALBUTEROL NEB 2.5 MG/3 ML VIAL.NEB INH ×2 (06:16→23:11)
[2024-11-25] MEDS: SODIUM CHLORIDE TAB 1,000 MG TABLET.SOL 1000 MG GT ×2 (08:05→21:20)
[2024-11-25] MEDS: SOD PHOS DI, MONO/K PHOS MONO 250 MG TABLET GT (08:05)
[2024-11-25] MEDS: ESOMEPRAZOLE 40 MG GT (08:05)
[2024-11-25] MEDS: MULTIVIT-MIN/IRON FUM/FOLIC AC 1 EACH TABLET GT (08:05)
--- NOTE | 2024-11-25 15:39 | PC.NURSE ---
Last CBC drawn , with WBC of 14.4. Order received from Dr Gonsalez do CBC in 3 days.
[2024-11-25] MEDS: SENNOSIDES 8.6 MG TABLET 17.2 MG GT (21:19)
[2024-11-25] MEDS: LOSARTAN 100 MG TABLET GT (21:19)
[2024-11-25] MEDS: ACETAMINOPHEN 325 MG TABLET 650 MG GT (21:20)
[2024-11-26] VITALS (9 sets, daily range): BP systolic 104–145; BP diastolic 69–83; PULSE 78–103; RESP 19–24; TEMP 36–36.4; O2SAT 97–99
[2024-11-26] MEDS: GENTAMICIN 0.3% OPHTH DROPS 75 DROP/5 ML BTL OPHTHALMIC ×4 (06:00→20:49)
[2024-11-26] MEDS: ALBUTEROL NEB 2.5 MG/3 ML VIAL.NEB INH ×3 (06:08→22:39)
[2024-11-26] MEDS: MULTIVIT-MIN/IRON FUM/FOLIC AC 1 EACH TABLET GT (08:07)
[2024-11-26] MEDS: SOD PHOS DI, MONO/K PHOS MONO 250 MG TABLET GT (08:07)
[2024-11-26] MEDS: SODIUM CHLORIDE TAB 1,000 MG TABLET.SOL 1000 MG GT ×2 (08:07→20:50)
[2024-11-26] MEDS: ESOMEPRAZOLE 40 MG GT (08:07)
[2024-11-26] MEDS: SENNOSIDES 8.6 MG TABLET 17.2 MG GT (20:50)
--- NOTE | 2024-11-26 22:58 | PD.SAPROG ---
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 (2) Epilepsy, unspecified, not intractable, without status epilepticus: Status: Chronic (3) Essential (primary) hypertension: Status: Chronic (4) Tracheostomy status: Status: Chronic (5) Gastrostomy status: Status: Chronic (6) Chronic respiratory failure, unspecified whether with hypoxia or hypercapnia: Status: Chronic (7) Chronic hyponatremia: Status: Chronic SUBJECTIVE Fever:: none GI:: none Shortness of Breath:: none GI:: no complaints Pain:: none OBJECTIVE Most recent vital signs: Last Vital Signs Temp 97.2 F 11/26/24 17:28 Pulse 78 11/26/24 22:40 Resp 20 11/26/24 22:40 BP 104/69 11/26/24 20:50 Pulse Ox 98 11/26/24 22:40 O2 Del Method Blow-by 11/25/24 05:47 O2 Flow Rate 8 11/26/24 22:40 FiO2 30 11/26/24 22:40 Neurological:: alert Speech:: nods head, mouths words (sometimes) and appropriate Answers questions:: sometimes Respiratory:: shallow breathing Cardiovascular: RRR Abdomen: soft and nontender Extremities:: deformities Decubitus:: none Tracheostomy:: to blow by Feeding per:: G tube Complaints:: none ASSESSMENT & PLAN Assessment: 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 No pain issues, and remains comfortable. Ice chips for some oral gratification tried with success without any cough or aspiration and continued.Remains fully dependent for care. interacts some and mostly happy. Tendency for Hypo-natremia on labs being monitored and addressed. No clinical change. Electrolytes improved. monitored regularly. Observed to be having eye inflammation and samples taken and antibiotics initiated. Pt remains fully dependent for care. No discomfort / pain. VSS. No new issues. Family updated from time to time Plan: All treatment reviewed and continued.
[2024-11-27] VITALS (8 sets, daily range): BP systolic 124–143; BP diastolic 81–89; PULSE 62–89; RESP 18–20; TEMP 36.1–36.3; O2SAT 92–96
[2024-11-27] MEDS: GENTAMICIN 0.3% OPHTH DROPS 75 DROP/5 ML BTL OPHTHALMIC ×4 (05:10→20:58)
[2024-11-27] MEDS: ALBUTEROL NEB 2.5 MG/3 ML VIAL.NEB INH ×2 (06:50→12:40)
[2024-11-27] MEDS: SOD PHOS DI, MONO/K PHOS MONO 250 MG TABLET GT (08:53)
[2024-11-27] MEDS: ACETAMINOPHEN 325 MG TABLET 650 MG GT (08:53)
[2024-11-27] MEDS: MULTIVIT-MIN/IRON FUM/FOLIC AC 1 EACH TABLET GT (08:53)
[2024-11-27] MEDS: SODIUM CHLORIDE TAB 1,000 MG TABLET.SOL 1000 MG GT ×2 (08:53→20:59)
[2024-11-27] MEDS: ESOMEPRAZOLE 40 MG GT (08:53)
--- NOTE | 2024-11-27 18:15 | PC.NURSE ---
Reviewed sputum cultures with MD. No further orders given. Resident remains Afebrile.
[2024-11-27] MEDS: LOSARTAN 100 MG TABLET GT (20:58)
[2024-11-27] MEDS: SENNOSIDES 8.6 MG TABLET 17.2 MG GT (20:58)
[2024-11-28] VITALS (7 sets, daily range): BP systolic 139–177; BP diastolic 90–97; PULSE 69–91; RESP 20–24; TEMP 36.1–36.3; O2SAT 94–99
[2024-11-28 05:06] LABS: Basophils # (Auto) 0.0 Thou/mm3 (0.0-0.2); Basophils % (Auto) 0 % (0-2.5); Eosinophils # (Auto) 0.2 Thou/mm3 (0.0-0.5); Eosinophils % (Auto) 2 % (0-10); Hematocrit 36.1 % (36.0-46.0); Hemoglobin 12.0 g/dL (12.0-16.0); Immature Granulocytes Auto 0.01 Thou/mm3 (0.00-0.00); Lymphocytes # (Auto) 1.5 Thou/mm3 (1.0-4.8); Lymphocytes % (Auto) 24 % (10-50); Mean Corpuscular HGB Conc 33.2 g/dl (31.0-37.0); Mean Corpuscular Hemoglobin 29.2 pg (25.0-35.0); Mean Corpuscular Volume 88 fL (80-100); Monocytes # (Auto) 0.6 Thou/mm3 (0.0-0.8); Monocytes % (Auto) 9 % (0-12); Neutrophils # (Auto) 4.0 Thou/mm3 (1.8-7.7); Neutrophils % (Auto) 64 % (37-80); Nucleated Red Blood Cell # 0.00 Thou/mm3 (0.00-0.00); Nucleated Red Blood Cell % 0 /100 WBC (0); Platelet Count 335 Thou/mm3 (140-440); RDW Standard Deviation 41.5 fL (36.4-46.3); Red Blood Count 4.11 Miln/mm3 (4.00-5.20); White Blood Count 6.3 Thou/mm3 (3.6-11.0)
[2024-11-28] MEDS: GENTAMICIN 0.3% OPHTH DROPS 75 DROP/5 ML BTL OPHTHALMIC ×4 (05:17→20:40)
[2024-11-28] MEDS: ESOMEPRAZOLE 40 MG GT (08:15)
[2024-11-28] MEDS: SOD PHOS DI, MONO/K PHOS MONO 250 MG TABLET GT (08:16)
[2024-11-28] MEDS: MULTIVIT-MIN/IRON FUM/FOLIC AC 1 EACH TABLET GT (08:16)
[2024-11-28] MEDS: SODIUM CHLORIDE TAB 1,000 MG TABLET.SOL 1000 MG GT ×2 (08:16→20:40)
[2024-11-28] MEDS: ACETAMINOPHEN 325 MG TABLET 650 MG GT (08:16)
--- NOTE | 2024-11-28 09:56 | ESPR_ITS ---
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 (2) Epilepsy, unspecified, not intractable, without status epilepticus: Status: Chronic (3) Essential (primary) hypertension: Status: Chronic (4) Tracheostomy status: Status: Chronic (5) Gastrostomy status: Status: Chronic (6) Chronic respiratory failure, unspecified whether with hypoxia or hypercapnia: Status: Chronic (7) Chronic hyponatremia: Status: Chronic SUBJECTIVE Fever:: none GI:: none Shortness of Breath:: none GI:: no complaints Pain:: none OBJECTIVE Most recent vital signs: Last Vital Signs Temp 97.2 F 11/28/24 06:00 Pulse 83 11/28/24 06:00 Resp 20 11/28/24 06:00 BP 144/97 H 11/28/24 06:00 Pulse Ox 97 11/28/24 06:00 O2 Del Method Blow-by 11/28/24 06:00 O2 Flow Rate 8 11/28/24 05:49 FiO2 30 11/28/24 05:49 Neurological:: alert Speech:: nods head, mouths words (sometimes) and appropriate Answers questions:: sometimes Respiratory:: shallow breathing Cardiovascular: RRR Abdomen: soft and nontender Extremities:: deformities Decubitus:: none Tracheostomy:: to blow by Feeding per:: G tube Complaints:: none ASSESSMENT & PLAN Assessment: 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 No pain issues, and remains comfortable. Ice chips for some oral gratification tried with success without any cough or aspiration and continued.Remains fully dependent for care. interacts some and mostly happy. Tendency for Hypo-natremia on labs being monitored and addressed. No clinical change. Electrolytes improved. monitored regularly. Observed to be having eye inflammation and samples taken and antibiotics initiated. Pt remains fully dependent for care. No discomfort / pain. VSS. No new issues. Family updated from time to time. Feeling better on Bronchodilators Plan: All treatment reviewed and continued.
[2024-11-28] MEDS: LOSARTAN 100 MG TABLET GT (20:40)
[2024-11-28] MEDS: SENNOSIDES 8.6 MG TABLET 17.2 MG GT (20:40)
[2024-11-28] MEDS: ALBUTEROL NEB 2.5 MG/3 ML VIAL.NEB INH (22:07)
[2024-11-29] VITALS (7 sets, daily range): BP systolic 123–161; BP diastolic 82–89; PULSE 82–107; RESP 18–23; TEMP 36–36.4; O2SAT 95–98
[2024-11-29] MEDS: GENTAMICIN 0.3% OPHTH DROPS 75 DROP/5 ML BTL OPHTHALMIC ×4 (06:18→20:18)
[2024-11-29] MEDS: ALBUTEROL NEB 2.5 MG/3 ML VIAL.NEB INH ×3 (06:20→22:19)
[2024-11-29] MEDS: MULTIVIT-MIN/IRON FUM/FOLIC AC 1 EACH TABLET GT (08:18)
[2024-11-29] MEDS: SOD PHOS DI, MONO/K PHOS MONO 250 MG TABLET GT (08:18)
[2024-11-29] MEDS: ESOMEPRAZOLE 40 MG GT (08:18)
[2024-11-29] MEDS: SODIUM CHLORIDE TAB 1,000 MG TABLET.SOL 1000 MG GT ×2 (08:19→20:19)
[2024-11-29] MEDS: LOSARTAN 100 MG TABLET GT (20:18)
[2024-11-29] MEDS: SENNOSIDES 8.6 MG TABLET 17.2 MG GT (20:19)
[2024-11-30] VITALS (9 sets, daily range): BP systolic 125–167; BP diastolic 70–92; PULSE 80–104; RESP 18–20; TEMP 36.1–36.7; O2SAT 96–99
[2024-11-30] MEDS: GENTAMICIN 0.3% OPHTH DROPS 75 DROP/5 ML BTL OPHTHALMIC ×4 (05:24→20:21)
[2024-11-30] MEDS: ALBUTEROL NEB 2.5 MG/3 ML VIAL.NEB INH ×3 (06:17→23:40)
[2024-11-30] MEDS: SOD PHOS DI, MONO/K PHOS MONO 250 MG TABLET GT (08:15)
[2024-11-30] MEDS: ESOMEPRAZOLE 40 MG GT (08:15)
[2024-11-30] MEDS: MULTIVIT-MIN/IRON FUM/FOLIC AC 1 EACH TABLET GT (08:16)
[2024-11-30] MEDS: SODIUM CHLORIDE TAB 1,000 MG TABLET.SOL 1000 MG GT ×2 (08:16→20:21)
[2024-11-30] MEDS: SENNOSIDES 8.6 MG TABLET 17.2 MG GT (20:21)
[2024-11-30] MEDS: LOSARTAN 100 MG TABLET GT (20:21)
[2024-12-01] VITALS: BP 168/91; PULSE 81; RESP 24; TEMP 36.2
[2024-12-01] MEDS: GENTAMICIN 0.3% OPHTH DROPS 75 DROP/5 ML BTL OPHTHALMIC ×4 (05:08→20:10)
[2024-12-01] MEDS: ALBUTEROL NEB 2.5 MG/3 ML VIAL.NEB INH ×3 (06:40→23:53)
[2024-12-01 06:41] VITALS: PULSE 86; PULSE 88; RESP 19; RESP 20; O2SAT 99
[2024-12-01] MEDS: MULTIVIT-MIN/IRON FUM/FOLIC AC 1 EACH TABLET GT (08:25)
[2024-12-01] MEDS: SODIUM CHLORIDE TAB 1,000 MG TABLET.SOL 1000 MG GT ×2 (08:25→20:11)
[2024-12-01] MEDS: ESOMEPRAZOLE 40 MG GT (08:25)
[2024-12-01] MEDS: SOD PHOS DI, MONO/K PHOS MONO 250 MG TABLET GT (08:25)
[2024-12-01 13:23] VITALS: BMI 25.7
[2024-12-01 14:44] VITALS: PULSE 84; RESP 16; O2SAT 99
[2024-12-01 20:11] VITALS: BP 157/91; PULSE 87
[2024-12-01] MEDS: SENNOSIDES 8.6 MG TABLET 17.2 MG GT (20:11)
[2024-12-01] MEDS: LOSARTAN 100 MG TABLET GT (20:11)
[2024-12-01] MEDS: ACETAMINOPHEN 325 MG TABLET 650 MG GT (20:12)
[2024-12-01 23:53] VITALS: PULSE 93; PULSE 95; RESP 18; O2SAT 98; O2SAT 99
[2024-12-02] VITALS (8 sets, daily range): BP systolic 107–157; BP diastolic 72–95; PULSE 82–99; RESP 16–20; TEMP 36.1–36.6; O2SAT 96–99
[2024-12-02] MEDS: ALBUTEROL NEB 2.5 MG/3 ML VIAL.NEB INH ×3 (06:04→22:00)
[2024-12-02] MEDS: MULTIVIT-MIN/IRON FUM/FOLIC AC 1 EACH TABLET GT (08:33)
[2024-12-02] MEDS: SOD PHOS DI, MONO/K PHOS MONO 250 MG TABLET GT (08:33)
[2024-12-02] MEDS: SODIUM CHLORIDE TAB 1,000 MG TABLET.SOL 1000 MG GT ×2 (08:33→20:20)
[2024-12-02] MEDS: ESOMEPRAZOLE 40 MG GT (08:33)
[2024-12-02] MEDS: GENTAMICIN 0.3% OPHTH DROPS 75 DROP/5 ML BTL OPHTHALMIC ×3 (11:59→20:18)
[2024-12-02] MEDS: SENNOSIDES 8.6 MG TABLET 17.2 MG GT (20:19)
[2024-12-03] VITALS (8 sets, daily range): BP systolic 128–161; BP diastolic 81–93; PULSE 75–95; RESP 18–21; TEMP 36.4–36.6; O2SAT 97–99
[2024-12-03] MEDS: GENTAMICIN 0.3% OPHTH DROPS 75 DROP/5 ML BTL OPHTHALMIC ×4 (05:34→20:09)
[2024-12-03] MEDS: ALBUTEROL NEB 2.5 MG/3 ML VIAL.NEB INH ×2 (06:10→14:03)
[2024-12-03] MEDS: ESOMEPRAZOLE 40 MG GT (09:05)
[2024-12-03] MEDS: SOD PHOS DI, MONO/K PHOS MONO 250 MG TABLET GT (09:06)
[2024-12-03] MEDS: MULTIVIT-MIN/IRON FUM/FOLIC AC 1 EACH TABLET GT (09:06)
[2024-12-03] MEDS: SODIUM CHLORIDE TAB 1,000 MG TABLET.SOL 1000 MG GT ×2 (09:06→20:12)
--- NOTE | 2024-12-03 17:00 | PD.SAPROG ---
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 (2) Epilepsy, unspecified, not intractable, without status epilepticus: Status: Chronic (3) Essential (primary) hypertension: Status: Chronic (4) Tracheostomy status: Status: Chronic (5) Gastrostomy status: Status: Chronic (6) Chronic respiratory failure, unspecified whether with hypoxia or hypercapnia: Status: Chronic (7) Chronic hyponatremia: Status: Chronic SUBJECTIVE Fever:: none GI:: none Shortness of Breath:: none GI:: no complaints Pain:: none OBJECTIVE Most recent vital signs: Last Vital Signs Temp 97.4 F 12/07/24 05:10 Pulse 90 12/07/24 05:10 Resp 19 12/07/24 05:10 BP 107/72 12/07/24 05:10 Pulse Ox 100 12/07/24 05:10 O2 Del Method Blow-by 12/05/24 06:00 O2 Flow Rate 8 12/07/24 01:30 FiO2 30 12/07/24 01:30 Neurological:: alert Speech:: nods head, mouths words (sometimes) and appropriate Answers questions:: sometimes Respiratory:: shallow breathing Cardiovascular: RRR Abdomen: soft and nontender Extremities:: deformities Decubitus:: none Tracheostomy:: to blow by Feeding per:: G tube Complaints:: none ASSESSMENT & PLAN Assessment: 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 No pain issues, and remains comfortable. Ice chips for some oral gratification tried with success without any cough or aspiration and continued.Remains fully dependent for care. interacts some and mostly happy. Tendency for Hypo-natremia on labs being monitored and addressed. No clinical change. Electrolytes improved. monitored regularly. Observed to be having eye inflammation and samples taken and antibiotics initiated. Pt remains fully dependent for care. No discomfort / pain. VSS. No new issues. Family updated from time to time. Feeling better on Bronchodilators Plan: All treatment reviewed and continued.
[2024-12-03] MEDS: LOSARTAN 100 MG TABLET GT (20:10)
[2024-12-03] MEDS: SENNOSIDES 8.6 MG TABLET 17.2 MG GT (20:12)
[2024-12-04] VITALS (10 sets, daily range): BP systolic 108–150; BP diastolic 70–85; PULSE 77–96; RESP 17–20; TEMP 36.2–36.6; O2SAT 95–100
[2024-12-04] MEDS: ALBUTEROL NEB 2.5 MG/3 ML VIAL.NEB INH ×4 (00:22→22:06)
[2024-12-04] MEDS: GENTAMICIN 0.3% OPHTH DROPS 75 DROP/5 ML BTL OPHTHALMIC ×4 (05:03→20:34)
[2024-12-04] MEDS: MULTIVIT-MIN/IRON FUM/FOLIC AC 1 EACH TABLET GT (08:12)
[2024-12-04] MEDS: SOD PHOS DI, MONO/K PHOS MONO 250 MG TABLET GT (08:12)
[2024-12-04] MEDS: ESOMEPRAZOLE 40 MG GT (08:12)
[2024-12-04] MEDS: SODIUM CHLORIDE TAB 1,000 MG TABLET.SOL 1000 MG GT ×2 (08:13→20:37)
[2024-12-04] MEDS: SENNOSIDES 8.6 MG TABLET 17.2 MG GT (20:36)
[2024-12-05] VITALS: BP 124/85; BP 138/82; BP 150/85; PULSE 94; RESP 20; TEMP 36.3; O2SAT 97
[2024-12-05] MEDS: GENTAMICIN 0.3% OPHTH DROPS 75 DROP/5 ML BTL OPHTHALMIC ×4 (05:30→20:16)
[2024-12-05 06:00] VITALS: BP 138/82; BP 143/80; BP 150/85; PULSE 86; RESP 20; TEMP 36.5; O2SAT 97
[2024-12-05] MEDS: ALBUTEROL NEB 2.5 MG/3 ML VIAL.NEB INH ×2 (07:33→14:22)
[2024-12-05 07:53] VITALS: PULSE 89; RESP 18; O2SAT 93
[2024-12-05] MEDS: ESOMEPRAZOLE 40 MG GT (08:13)
[2024-12-05] MEDS: SODIUM CHLORIDE TAB 1,000 MG TABLET.SOL 1000 MG GT ×2 (08:14→20:16)
[2024-12-05] MEDS: SOD PHOS DI, MONO/K PHOS MONO 250 MG TABLET GT (08:14)
[2024-12-05] MEDS: MULTIVIT-MIN/IRON FUM/FOLIC AC 1 EACH TABLET GT (08:14)
[2024-12-05 14:22] VITALS: PULSE 97; RESP 18; O2SAT 100
[2024-12-05 20:16] VITALS: BP 138/69; PULSE 79
[2024-12-05] MEDS: SENNOSIDES 8.6 MG TABLET 17.2 MG GT (20:16)
[2024-12-05] MEDS: LOSARTAN 100 MG TABLET GT (20:16)
[2024-12-05 23:55] VITALS: PULSE 90; RESP 20; O2SAT 95
[2024-12-06] VITALS: BP 141/80; PULSE 87; RESP 24; TEMP 36.3
[2024-12-06] MEDS: GENTAMICIN 0.3% OPHTH DROPS 75 DROP/5 ML BTL OPHTHALMIC ×4 (05:07→20:54)
[2024-12-06 06:00] VITALS: BP 140/98; PULSE 86; RESP 20; TEMP 36.2; O2SAT 97
[2024-12-06 07:01] VITALS: PULSE 81; RESP 18; O2SAT 93
[2024-12-06] MEDS: SODIUM CHLORIDE TAB 1,000 MG TABLET.SOL 1000 MG GT ×2 (08:06→20:56)
[2024-12-06] MEDS: ESOMEPRAZOLE 40 MG GT (08:06)
[2024-12-06] MEDS: SOD PHOS DI, MONO/K PHOS MONO 250 MG TABLET GT (08:06)
[2024-12-06] MEDS: MULTIVIT-MIN/IRON FUM/FOLIC AC 1 EACH TABLET GT (08:06)
[2024-12-06 11:53] VITALS: BP 142/86; PULSE 96; RESP 18; TEMP 36.5
[2024-12-06 18:00] VITALS: BP 145/74; PULSE 61; RESP 18; TEMP 36.6; O2SAT 99
[2024-12-06 20:55] VITALS: BP 155/96; PULSE 92
[2024-12-06] MEDS: LOSARTAN 100 MG TABLET GT (20:55)
[2024-12-06] MEDS: SENNOSIDES 8.6 MG TABLET 17.2 MG GT (20:55)
[2024-12-06] MEDS: ACETAMINOPHEN 325 MG TABLET 650 MG GT (20:56)
[2024-12-07] VITALS: BP 139/86; PULSE 89; RESP 20; TEMP 37
[2024-12-07 01:30] VITALS: PULSE 95; RESP 18; O2SAT 98
[2024-12-07] MEDS: ALBUTEROL NEB 2.5 MG/3 ML VIAL.NEB INH ×3 (01:30→12:37)
[2024-12-07] MEDS: GENTAMICIN 0.3% OPHTH DROPS 75 DROP/5 ML BTL OPHTHALMIC (05:09)
[2024-12-07 05:10] VITALS: BP 107/72; PULSE 90; RESP 19; TEMP 36.3; O2SAT 100
--- NOTE | 2024-12-07 05:49 | PC.NURSE ---
Resident noted with blood in secretions, blow by tubings and when suctioning, trach was not all the way inserted, repositioned and tubing was changed. Will notify MD, no respiratory distress noted at this time.
[2024-12-07 07:29] VITALS: PULSE 93; RESP 18; O2SAT 97
--- NOTE | 2024-12-07 07:56 | ESPR_ITS ---
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 (2) Epilepsy, unspecified, not intractable, without status epilepticus: Status: Chronic (3) Essential (primary) hypertension: Status: Chronic (4) Tracheostomy status: Status: Chronic (5) Gastrostomy status: Status: Chronic (6) Chronic respiratory failure, unspecified whether with hypoxia or hypercapnia: Status: Chronic (7) Chronic hyponatremia: Status: Chronic SUBJECTIVE Fever:: none GI:: none Shortness of Breath:: none GI:: no complaints Pain:: none OBJECTIVE Most recent vital signs: Last Vital Signs Temp 97.4 F 12/07/24 05:10 Pulse 90 12/07/24 05:10 Resp 19 12/07/24 05:10 BP 107/72 12/07/24 05:10 Pulse Ox 100 12/07/24 05:10 O2 Del Method Blow-by 12/05/24 06:00 O2 Flow Rate 8 12/07/24 01:30 FiO2 30 12/07/24 01:30 Neurological:: alert Speech:: nods head, mouths words (sometimes) and appropriate Answers questions:: sometimes Respiratory:: shallow breathing Cardiovascular: RRR Abdomen: soft and nontender Extremities:: deformities Decubitus:: none Tracheostomy:: to blow by Feeding per:: G tube Complaints:: none ASSESSMENT & PLAN Assessment: 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 No pain issues, and remains comfortable. Ice chips for some oral gratification tried with success without any cough or aspiration and continued.Remains fully dependent for care. interacts some and mostly happy. Tendency for Hypo-natremia on labs being monitored and addressed. No clinical change. Electrolytes improved. monitored regularly. Observed to be having eye inflammation and samples taken and antibiotics initiated. Pt remains fully dependent for care. No discomfort / pain. VSS. No new issues. Family updated from time to time. Feeling better on Bronchodilators Plan: All treatment reviewed and continued.
[2024-12-07] MEDS: ESOMEPRAZOLE 40 MG GT (08:10)
[2024-12-07] MEDS: SOD PHOS DI, MONO/K PHOS MONO 250 MG TABLET GT (08:11)
[2024-12-07] MEDS: MULTIVIT-MIN/IRON FUM/FOLIC AC 1 EACH TABLET GT (08:11)
[2024-12-07] MEDS: SODIUM CHLORIDE TAB 1,000 MG TABLET.SOL 1000 MG GT (08:11)
--- NOTE | 2024-12-07 11:32 | PC.NURSE ---
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 RE-evaluated resident by RT and relief charge nurse nurse. tubing and canister were change to monitoring closer look at how much resident is bleeding. Bright blood is noted when patient is suctioned or coughing. Notified New order for lavage x2 2 hours apart. If it does work Will send resident to ED for further evaluation. Vital signs are as follow: O2 saturation 97% with 8L at 30%. 154/83, 84, RR 24. 97.6
[2024-12-07 12:00] VITALS: BP 162/88; PULSE 73; RESP 24; TEMP 36.7
[2024-12-07 12:37] VITALS: PULSE 86; RESP 18; O2SAT 96
--- NOTE | 2024-12-07 13:05 | PC.NURSE ---
Resident sent out to ED for further care of tracheal bleed. After RT lavaged trach more blood seemed to come out. Called ED. REsident was picked up at 1245 by ER crew. at 1245 report given to Jagruti and Gail RN's in ED. Resident's family has been notified. Spoke to Rick. Notified varnishing unit operator Gregoria.
--- NOTE | 2024-12-13 14:53 | PC.NURSE ---
Addendum entered by Maggy Marc RN 12/13/24 15:13: REMOVED 22G IV TO THE LEFT WRIST AND 20G IV TO THE RIGHT HAND. DRESSING PLACED AND CANNULAS INTACT. Original Note: PT RETURNED TO FLOOR. SKIN ASSESSMENT DONE. RT CONNECTED PT TO O2. PT CONNECTED TO FORMULA. CALL LIGHT WITH IN REACH.
[2024-12-13 14:55] VITALS: BP 148/92; PULSE 112; RESP 21; TEMP 36.5; O2SAT 98
--- NOTE | 2024-12-13 15:07 | PC.NURSE ---
Admitted from Telemetry today 12/13/2024 at 1445 with three staff from telemetry and one COST CONTROL ANALYST, transferred without difficulty. New code status of DNR signed by daughter, Homa Griffiths. New order to continue Inhaled tranexamic acid 500mg, given three times a day by COST CONTROL ANALYST for one more day. No sign or symptoms related to pain or discomfort noted. Continue on current medication regiment. Continue with previous formula feeding prior to discharge. Last blood glucose at 1200 = 121. Last BM 12/13/2024 = large bm x1.
[2024-12-13] MEDS: GENTAMICIN 0.3% OPHTH DROPS 75 DROP/5 ML BTL OPHTHALMIC ×2 (17:32→20:20)
[2024-12-13 18:00] VITALS: BP 109/73; PULSE 104; RESP 18; TEMP 36.2; O2SAT 97
[2024-12-13 20:20] VITALS: BP 123/81; PULSE 102
[2024-12-13] MEDS: LOSARTAN 100 MG TABLET GT (20:20)
[2024-12-13] MEDS: SENNOSIDES 8.6 MG TABLET 17.2 MG GT (20:21)
[2024-12-13] MEDS: SODIUM CHLORIDE TAB 1,000 MG TABLET.SOL 1000 MG GT (20:22)
[2024-12-13] MEDS: ACETAMINOPHEN 325 MG TABLET 650 MG GT (20:22)
[2024-12-13 22:00] VITALS: BP 122/69; PULSE 88; RESP 16; TEMP 36.4
[2024-12-13] MEDS: ALBUTEROL NEB 2.5 MG/3 ML VIAL.NEB INH (23:20)
[2024-12-13 23:21] VITALS: PULSE 81; RESP 20; O2SAT 98
[2024-12-13 23:23] VITALS: PULSE 78; RESP 18; O2SAT 97
[2024-12-14] VITALS: BP 121/78; PULSE 93; RESP 18; TEMP 36.6
[2024-12-14 02:00] VITALS: BP 125/72; PULSE 91; RESP 20; TEMP 36.4
[2024-12-14] MEDS: GENTAMICIN 0.3% OPHTH DROPS 75 DROP/5 ML BTL OPHTHALMIC ×4 (05:21→20:23)
[2024-12-14 06:00] VITALS: BP 108/76; PULSE 90; RESP 20; TEMP 36.5; O2SAT 97
[2024-12-14] MEDS: MULTIVIT-MIN/IRON FUM/FOLIC AC 1 EACH TABLET GT (07:51)
[2024-12-14] MEDS: SOD PHOS DI, MONO/K PHOS MONO 250 MG TABLET GT (07:51)
[2024-12-14] MEDS: ESOMEPRAZOLE 40 MG GT (07:51)
[2024-12-14] MEDS: SODIUM CHLORIDE TAB 1,000 MG TABLET.SOL 1000 MG GT (07:52)
--- NOTE | 2024-12-14 12:12 | PC.NURSE ---
informed that pharmacy is unable to order Tranexamic Acid, and Ms. Jacobsen has not had bleeding from the trach. Medication discontinued.
[2024-12-14 12:45] VITALS: PULSE 81; RESP 18; O2SAT 97
[2024-12-14 20:00] VITALS: PULSE 78; RESP 18; O2SAT 96
[2024-12-14 20:24] VITALS: BP 109/86; PULSE 98
[2024-12-14] MEDS: SENNOSIDES 8.6 MG TABLET 17.2 MG GT (20:24)
[2024-12-14] MEDS: ACETAMINOPHEN 325 MG TABLET 650 MG GT (23:15)
[2024-12-15] VITALS (7 sets, daily range): BP systolic 95–151; BP diastolic 69–83; PULSE 82–101; RESP 16–22; TEMP 35.9–36.3; O2SAT 96–98
[2024-12-15] MEDS: GENTAMICIN 0.3% OPHTH DROPS 75 DROP/5 ML BTL OPHTHALMIC ×4 (05:25→20:10)
[2024-12-15] MEDS: SODIUM CHLORIDE TAB 1,000 MG TABLET.SOL 1000 MG GT ×2 (08:01→20:12)
[2024-12-15] MEDS: SOD PHOS DI, MONO/K PHOS MONO 250 MG TABLET GT (08:01)
[2024-12-15] MEDS: MULTIVIT-MIN/IRON FUM/FOLIC AC 1 EACH TABLET GT (08:01)
[2024-12-15] MEDS: ESOMEPRAZOLE 40 MG GT (08:01)
--- NOTE | 2024-12-15 13:45 | ESPR_ITS ---
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 (2) Epilepsy, unspecified, not intractable, without status epilepticus: Status: Chronic (3) Essential (primary) hypertension: Status: Chronic (4) Tracheostomy status: Status: Chronic (5) Gastrostomy status: Status: Chronic (6) Chronic respiratory failure, unspecified whether with hypoxia or hypercapnia: Status: Chronic (7) Chronic hyponatremia: Status: Chronic SUBJECTIVE Fever:: none GI:: none Shortness of Breath:: none GI:: no complaints Pain:: none OBJECTIVE Most recent vital signs: Last Vital Signs Temp 97.6 F 12/19/24 18:00 Pulse 81 12/19/24 20:23 Resp 22 H 12/19/24 18:00 BP 145/92 H 12/19/24 20:23 Pulse Ox 96 12/19/24 16:29 O2 Del Method Blow-by 12/18/24 16:53 O2 Flow Rate 8 12/19/24 16:29 FiO2 30 12/19/24 16:29 Neurological:: alert Speech:: nods head, mouths words (sometimes) and appropriate Answers questions:: sometimes Respiratory:: shallow breathing Cardiovascular: RRR Abdomen: soft and nontender Extremities:: deformities Decubitus:: none Tracheostomy:: to blow by Feeding per:: G tube Complaints:: none ASSESSMENT & PLAN Assessment: 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 No pain issues, and remains comfortable. Ice chips for some oral gratification tried with success without any cough or aspiration and continued.Remains fully dependent for care. interacts some and mostly happy. Tendency for Hypo-natremia on labs being monitored and addressed. No clinical change. Electrolytes improved. monitored regularly. Observed to be having eye inflammation and samples taken and antibiotics initiated. Pt remains fully dependent for care. No discomfort / pain. VSS. No new issues. Family updated from time to time. Feeling better on Bronchodilators Plan: All treatment reviewed and continued.
--- NOTE | 2024-12-15 14:36 | PC.NURSE ---
spoke to [place] resident's daughter regarding a most recent POLST form signed by her. (daughter) reviewed as written on pink form, daughter attested is exactly how she wanted. Stated she understood her mother poor prognosis and that she is making the decision to make her DNR but with limited care.
[2024-12-15] MEDS: LOSARTAN 100 MG TABLET GT (20:09)
[2024-12-15] MEDS: SENNOSIDES 8.6 MG TABLET 17.2 MG GT (20:12)
[2024-12-15] MEDS: ACETAMINOPHEN 325 MG TABLET 650 MG GT (20:14)
[2024-12-16] VITALS: BP 124/60; PULSE 59; RESP 22; TEMP 36.6
[2024-12-16] MEDS: GENTAMICIN 0.3% OPHTH DROPS 75 DROP/5 ML BTL OPHTHALMIC ×4 (05:17→20:10)
[2024-12-16 06:00] VITALS: BP 123/89; PULSE 93; RESP 20; TEMP 36.2; O2SAT 94
[2024-12-16 07:29] VITALS: PULSE 79; RESP 18; O2SAT 98
[2024-12-16] MEDS: MULTIVIT-MIN/IRON FUM/FOLIC AC 1 EACH TABLET GT (08:06)
[2024-12-16] MEDS: SODIUM CHLORIDE TAB 1,000 MG TABLET.SOL 1000 MG GT ×2 (08:06→20:11)
[2024-12-16] MEDS: SOD PHOS DI, MONO/K PHOS MONO 250 MG TABLET GT (08:06)
[2024-12-16] MEDS: ESOMEPRAZOLE 40 MG GT (08:06)
[2024-12-16 11:50] VITALS: BP 138/92; PULSE 87; RESP 20; TEMP 36.2
[2024-12-16 17:17] VITALS: BP 134/84; PULSE 87; RESP 17; TEMP 36.2; O2SAT 99
[2024-12-16 20:11] VITALS: BP 137/81; PULSE 87
[2024-12-16] MEDS: SENNOSIDES 8.6 MG TABLET 17.2 MG GT (20:11)
[2024-12-16] MEDS: LOSARTAN 100 MG TABLET GT (20:11)
[2024-12-17] VITALS (7 sets, daily range): BP systolic 128–150; BP diastolic 82–88; PULSE 84–101; RESP 18–24; TEMP 36–36.4; O2SAT 98–99
[2024-12-17] MEDS: GENTAMICIN 0.3% OPHTH DROPS 75 DROP/5 ML BTL OPHTHALMIC ×4 (05:03→21:38)
[2024-12-17] MEDS: SODIUM CHLORIDE TAB 1,000 MG TABLET.SOL 1000 MG GT ×2 (07:59→21:38)
[2024-12-17] MEDS: SOD PHOS DI, MONO/K PHOS MONO 250 MG TABLET GT (07:59)
[2024-12-17] MEDS: ESOMEPRAZOLE 40 MG GT (07:59)
[2024-12-17] MEDS: MULTIVIT-MIN/IRON FUM/FOLIC AC 1 EACH TABLET GT (07:59)
[2024-12-17] MEDS: LOSARTAN 100 MG TABLET GT (21:38)
[2024-12-17] MEDS: SENNOSIDES 8.6 MG TABLET 17.2 MG GT (21:39)
[2024-12-18] VITALS (7 sets, daily range): BP systolic 120–153; BP diastolic 68–83; PULSE 79–88; RESP 17–20; TEMP 36.1–36.4; O2SAT 93–98
[2024-12-18] MEDS: GENTAMICIN 0.3% OPHTH DROPS 75 DROP/5 ML BTL OPHTHALMIC ×4 (05:01→20:17)
[2024-12-18] MEDS: SODIUM CHLORIDE TAB 1,000 MG TABLET.SOL 1000 MG GT ×2 (08:02→20:18)
[2024-12-18] MEDS: MULTIVIT-MIN/IRON FUM/FOLIC AC 1 EACH TABLET GT (08:02)
[2024-12-18] MEDS: SOD PHOS DI, MONO/K PHOS MONO 250 MG TABLET GT (08:02)
[2024-12-18] MEDS: ESOMEPRAZOLE 40 MG GT (08:02)
[2024-12-18] MEDS: ACETAMINOPHEN 325 MG TABLET 650 MG GT (13:58)
[2024-12-18] MEDS: LOSARTAN 100 MG TABLET GT (20:18)
[2024-12-18] MEDS: SENNOSIDES 8.6 MG TABLET 17.2 MG GT (20:19)
[2024-12-19] VITALS (7 sets, daily range): BP systolic 125–163; BP diastolic 82–92; PULSE 79–98; RESP 18–22; TEMP 36.1–36.7; O2SAT 96–98
[2024-12-19] MEDS: GENTAMICIN 0.3% OPHTH DROPS 75 DROP/5 ML BTL OPHTHALMIC ×2 (05:03→12:53)
[2024-12-19] MEDS: SOD PHOS DI, MONO/K PHOS MONO 250 MG TABLET GT (08:33)
[2024-12-19] MEDS: MULTIVIT-MIN/IRON FUM/FOLIC AC 1 EACH TABLET GT (08:33)
[2024-12-19] MEDS: SODIUM CHLORIDE TAB 1,000 MG TABLET.SOL 1000 MG GT ×2 (08:33→20:23)
[2024-12-19] MEDS: ESOMEPRAZOLE 40 MG GT (08:33)
[2024-12-19] MEDS: ACETAMINOPHEN 325 MG TABLET 650 MG GT (08:35)
--- NOTE | 2024-12-19 15:17 | PC.NURSE ---
Resident on gentamicin 1 drop to both eyes QID. Redness to both eyes looks better and opens her eyes. No discharges noted at this time. Sent pictures of resident's eyes to Dr Ulrich for review. Order received to taper the gentamicin to once a day for 3 weeks.
[2024-12-19] MEDS: SENNOSIDES 8.6 MG TABLET 17.2 MG GT (20:22)
[2024-12-19] MEDS: LOSARTAN 100 MG TABLET GT (20:23)
--- NOTE | 2024-12-19 21:42 | PD.SAPROG ---
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 (2) Epilepsy, unspecified, not intractable, without status epilepticus: Status: Chronic (3) Essential (primary) hypertension: Status: Chronic (4) Tracheostomy status: Status: Chronic (5) Gastrostomy status: Status: Chronic (6) Chronic respiratory failure, unspecified whether with hypoxia or hypercapnia: Status: Chronic (7) Chronic hyponatremia: Status: Chronic SUBJECTIVE Fever:: none GI:: none Shortness of Breath:: none GI:: no complaints Pain:: none OBJECTIVE Most recent vital signs: Last Vital Signs Temp 97.6 F 12/19/24 18:00 Pulse 81 12/19/24 20:23 Resp 22 H 12/19/24 18:00 BP 145/92 H 12/19/24 20:23 Pulse Ox 96 12/19/24 16:29 O2 Del Method Blow-by 12/18/24 16:53 O2 Flow Rate 8 12/19/24 16:29 FiO2 30 12/19/24 16:29 Neurological:: alert Speech:: nods head, mouths words (sometimes) and appropriate Answers questions:: sometimes Respiratory:: shallow breathing Cardiovascular: RRR Abdomen: soft and nontender Extremities:: deformities Decubitus:: none Tracheostomy:: to blow by Feeding per:: G tube Complaints:: none ASSESSMENT & PLAN Assessment: 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 No pain issues, and remains comfortable. Ice chips for some oral gratification tried with success without any cough or aspiration and continued.Remains fully dependent for care. interacts some and mostly happy. Tendency for Hypo-natremia on labs being monitored and addressed. No clinical change. Electrolytes improved. monitored regularly. Observed to be having eye inflammation and samples taken and antibiotics initiated. Pt remains fully dependent for care. No discomfort / pain. VSS. No new issues. Family updated from time to time. Feeling better on Bronchodilators Plan: All treatment reviewed and continued.
[2024-12-20] VITALS (8 sets, daily range): BP systolic 142–158; BP diastolic 82–97; PULSE 74–101; RESP 18–32; TEMP 36.2–36.6; O2SAT 96–97
[2024-12-20] MEDS: ACETAMINOPHEN 325 MG TABLET 650 MG GT (00:35)
[2024-12-20] MEDS: SODIUM CHLORIDE TAB 1,000 MG TABLET.SOL 1000 MG GT ×2 (08:24→20:00)
[2024-12-20] MEDS: ESOMEPRAZOLE 40 MG GT (08:24)
[2024-12-20] MEDS: MULTIVIT-MIN/IRON FUM/FOLIC AC 1 EACH TABLET GT (08:24)
[2024-12-20] MEDS: GENTAMICIN 0.3% OPHTH DROPS 75 DROP/5 ML BTL OPHTHALMIC (08:25)
[2024-12-20] MEDS: SENNOSIDES 8.6 MG TABLET 17.2 MG GT (20:00)
[2024-12-20] MEDS: LOSARTAN 100 MG TABLET GT (20:00)
[2024-12-21] VITALS (7 sets, daily range): BP systolic 103–167; BP diastolic 76–95; PULSE 77–96; RESP 18–22; TEMP 36–36.6; O2SAT 92–99
[2024-12-21] MEDS: ESOMEPRAZOLE 40 MG GT (08:01)
[2024-12-21] MEDS: SOD PHOS DI, MONO/K PHOS MONO 250 MG TABLET GT (08:02)
[2024-12-21] MEDS: SODIUM CHLORIDE TAB 1,000 MG TABLET.SOL 1000 MG GT ×2 (08:03→20:10)
[2024-12-21] MEDS: MULTIVIT-MIN/IRON FUM/FOLIC AC 1 EACH TABLET GT (08:03)
[2024-12-21] MEDS: GENTAMICIN 0.3% OPHTH DROPS 75 DROP/5 ML BTL OPHTHALMIC (08:04)
[2024-12-21] MEDS: MAGNESIUM HYDROXIDE 30 ML ORAL SUSP ML GT (08:04)
[2024-12-21] MEDS: ACETAMINOPHEN 325 MG TABLET 650 MG GT (15:15)
[2024-12-21] MEDS: SENNOSIDES 8.6 MG TABLET 17.2 MG GT (20:11)
[2024-12-21] MEDS: LOSARTAN 100 MG TABLET GT (20:11)
[2024-12-22] VITALS (7 sets, daily range): BP systolic 137–186; BP diastolic 81–97; PULSE 72–102; RESP 18–20; TEMP 36.2–36.7; O2SAT 96–99
[2024-12-22] MEDS: SODIUM CHLORIDE TAB 1,000 MG TABLET.SOL 1000 MG GT ×2 (07:59→20:16)
[2024-12-22] MEDS: MULTIVIT-MIN/IRON FUM/FOLIC AC 1 EACH TABLET GT (07:59)
[2024-12-22] MEDS: ESOMEPRAZOLE 40 MG GT (07:59)
[2024-12-22] MEDS: GENTAMICIN 0.3% OPHTH DROPS 75 DROP/5 ML BTL OPHTHALMIC (07:59)
[2024-12-22] MEDS: SOD PHOS DI, MONO/K PHOS MONO 250 MG TABLET GT (07:59)
[2024-12-22] MEDS: ACETAMINOPHEN 325 MG TABLET 650 MG GT (20:17)
[2024-12-22] MEDS: LOSARTAN 100 MG TABLET GT (20:17)
[2024-12-22] MEDS: SENNOSIDES 8.6 MG TABLET 17.2 MG GT (20:18)
[2024-12-23] VITALS: BP 138/91; PULSE 80; TEMP 35.9
[2024-12-23 06:00] VITALS: BP 150/84; PULSE 79; RESP 20; TEMP 36.4; O2SAT 97
[2024-12-23 07:05] VITALS: PULSE 89; RESP 16; O2SAT 99
[2024-12-23] MEDS: GENTAMICIN 0.3% OPHTH DROPS 75 DROP/5 ML BTL OPHTHALMIC (08:11)
[2024-12-23] MEDS: ESOMEPRAZOLE 40 MG GT (08:11)
[2024-12-23] MEDS: SODIUM CHLORIDE TAB 1,000 MG TABLET.SOL 1000 MG GT ×2 (08:11→20:19)
[2024-12-23] MEDS: SOD PHOS DI, MONO/K PHOS MONO 250 MG TABLET GT (08:11)
[2024-12-23] MEDS: MULTIVIT-MIN/IRON FUM/FOLIC AC 1 EACH TABLET GT (08:11)
--- NOTE | 2024-12-23 10:29 | PC.SS ---
This SSD received email from VU Griffiths who stated she took resident mini iPad home with her. This SSD acknowledged and removed it from the inventory.
[2024-12-23 18:19] VITALS: PULSE 75; RESP 18; O2SAT 98
[2024-12-23 20:20] VITALS: BP 130/98; PULSE 96
[2024-12-23] MEDS: SENNOSIDES 8.6 MG TABLET 17.2 MG GT (20:20)
[2024-12-23] MEDS: LOSARTAN 100 MG TABLET GT (20:20)
--- NOTE | 2024-12-23 21:08 | PD.SAPROG ---
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 (2) Epilepsy, unspecified, not intractable, without status epilepticus: Status: Chronic (3) Essential (primary) hypertension: Status: Chronic (4) Tracheostomy status: Status: Chronic (5) Gastrostomy status: Status: Chronic (6) Chronic respiratory failure, unspecified whether with hypoxia or hypercapnia: Status: Chronic (7) Chronic hyponatremia: Status: Chronic SUBJECTIVE Fever:: none GI:: none Shortness of Breath:: none GI:: no complaints Pain:: none OBJECTIVE Most recent vital signs: Last Vital Signs Temp 97.5 F 12/23/24 06:00 Pulse 96 12/23/24 20:20 Resp 16 12/23/24 07:05 BP 130/98 H 12/23/24 20:20 Pulse Ox 99 12/23/24 07:05 O2 Del Method Blow-by 12/22/24 16:55 O2 Flow Rate 8 12/23/24 07:05 FiO2 30 12/23/24 07:05 Neurological:: alert Speech:: nods head, mouths words (sometimes) and appropriate Answers questions:: sometimes Respiratory:: shallow breathing Cardiovascular: RRR Abdomen: soft and nontender Extremities:: deformities Decubitus:: none Tracheostomy:: to blow by Feeding per:: G tube Complaints:: none ASSESSMENT & PLAN Assessment: 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 No pain issues, and remains comfortable. Ice chips for some oral gratification tried with success without any cough or aspiration and continued.Remains fully dependent for care. interacts some and mostly happy. Tendency for Hypo-natremia on labs being monitored and addressed. No clinical change. Electrolytes improved. monitored regularly. Observed to be having eye inflammation and samples taken and antibiotics initiated. Pt remains fully dependent for care. No discomfort / pain. VSS. No new issues. Family updated from time to time. Feeling better on Bronchodilators Plan: All treatment reviewed and continued.
[2024-12-23] MEDS: ACETAMINOPHEN 325 MG TABLET 650 MG GT (23:05)
[2024-12-24] VITALS (7 sets, daily range): BP systolic 138–166; BP diastolic 84–103; PULSE 77–106; RESP 16–28; TEMP 36.1–36.6; O2SAT 95–98
--- NOTE | 2024-12-24 00:14 | PC.NURSE ---
Nurse has been notified on pts blood pressure
[2024-12-24] MEDS: ESOMEPRAZOLE 40 MG GT (08:19)
[2024-12-24] MEDS: GENTAMICIN 0.3% OPHTH DROPS 75 DROP/5 ML BTL OPHTHALMIC (08:19)
[2024-12-24] MEDS: SODIUM CHLORIDE TAB 1,000 MG TABLET.SOL 1000 MG GT ×2 (08:20→20:28)
[2024-12-24] MEDS: SOD PHOS DI, MONO/K PHOS MONO 250 MG TABLET GT (08:20)
[2024-12-24] MEDS: MULTIVIT-MIN/IRON FUM/FOLIC AC 1 EACH TABLET GT (08:20)
[2024-12-24] MEDS: ACETAMINOPHEN 325 MG TABLET 650 MG GT (20:26)
[2024-12-24] MEDS: LOSARTAN 100 MG TABLET GT (20:27)
[2024-12-24] MEDS: SENNOSIDES 8.6 MG TABLET 17.2 MG GT (20:28)
[2024-12-25] VITALS (7 sets, daily range): BP systolic 150–177; BP diastolic 84–101; PULSE 79–99; RESP 17–21; TEMP 36.1–36.4; O2SAT 93–94
[2024-12-25] MEDS: ACETAMINOPHEN 325 MG TABLET 650 MG GT ×3 (05:29→20:27)
[2024-12-25] MEDS: ESOMEPRAZOLE 40 MG GT (08:31)
[2024-12-25] MEDS: SODIUM CHLORIDE TAB 1,000 MG TABLET.SOL 1000 MG GT ×2 (08:32→20:31)
[2024-12-25] MEDS: MULTIVIT-MIN/IRON FUM/FOLIC AC 1 EACH TABLET GT (08:32)
[2024-12-25] MEDS: SOD PHOS DI, MONO/K PHOS MONO 250 MG TABLET GT (08:32)
[2024-12-25] MEDS: GENTAMICIN 0.3% OPHTH DROPS 75 DROP/5 ML BTL OPHTHALMIC (08:32)
[2024-12-25] MEDS: LOSARTAN 100 MG TABLET GT (20:29)
[2024-12-25] MEDS: SENNOSIDES 8.6 MG TABLET 17.2 MG GT (20:31)
[2024-12-26] VITALS (8 sets, daily range): BP systolic 114–154; BP diastolic 83–98; PULSE 73–125; RESP 18–27; TEMP 36–36.6; O2SAT 96–100
[2024-12-26] MEDS: MULTIVIT-MIN/IRON FUM/FOLIC AC 1 EACH TABLET GT (08:12)
[2024-12-26] MEDS: SOD PHOS DI, MONO/K PHOS MONO 250 MG TABLET GT (08:12)
[2024-12-26] MEDS: SODIUM CHLORIDE TAB 1,000 MG TABLET.SOL 1000 MG GT ×2 (08:12→20:20)
[2024-12-26] MEDS: ESOMEPRAZOLE 40 MG GT (08:12)
[2024-12-26] MEDS: GENTAMICIN 0.3% OPHTH DROPS 75 DROP/5 ML BTL OPHTHALMIC (09:00)
[2024-12-26] MEDS: ACETAMINOPHEN 325 MG TABLET 650 MG GT (20:18)
[2024-12-26] MEDS: LOSARTAN 100 MG TABLET GT (20:19)
[2024-12-26] MEDS: SENNOSIDES 8.6 MG TABLET 17.2 MG GT (20:19)
[2024-12-27] VITALS (7 sets, daily range): BP systolic 116–142; BP diastolic 69–81; PULSE 75–95; RESP 16–24; TEMP 36.2–36.6; O2SAT 94–97
[2024-12-27] MEDS: SODIUM CHLORIDE TAB 1,000 MG TABLET.SOL 1000 MG GT ×2 (08:38→20:11)
[2024-12-27] MEDS: SOD PHOS DI, MONO/K PHOS MONO 250 MG TABLET GT (08:38)
[2024-12-27] MEDS: MULTIVIT-MIN/IRON FUM/FOLIC AC 1 EACH TABLET GT (08:38)
[2024-12-27] MEDS: ESOMEPRAZOLE 40 MG GT (08:39)
[2024-12-27] MEDS: GENTAMICIN 0.3% OPHTH DROPS 75 DROP/5 ML BTL OPHTHALMIC (08:39)
[2024-12-27] MEDS: ACETAMINOPHEN 325 MG TABLET 650 MG GT ×2 (08:40→20:12)
[2024-12-27] MEDS: ALBUTEROL NEB 2.5 MG/3 ML VIAL.NEB INH (09:19)
--- NOTE | 2024-12-27 14:36 | PD.SAPROG ---
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 (2) Epilepsy, unspecified, not intractable, without status epilepticus: Status: Chronic (3) Essential (primary) hypertension: Status: Chronic (4) Tracheostomy status: Status: Chronic (5) Gastrostomy status: Status: Chronic (6) Chronic respiratory failure, unspecified whether with hypoxia or hypercapnia: Status: Chronic (7) Chronic hyponatremia: Status: Chronic SUBJECTIVE Fever:: none GI:: none Shortness of Breath:: none GI:: no complaints Pain:: none OBJECTIVE Most recent vital signs: Last Vital Signs Temp 97.2 F 12/27/24 11:56 Pulse 90 12/27/24 11:56 Resp 17 12/27/24 11:56 BP 133/69 H 12/27/24 11:56 Pulse Ox 95 12/27/24 09:21 O2 Del Method Blow-by 12/26/24 18:00 O2 Flow Rate 8 12/27/24 09:21 FiO2 30 12/27/24 09:21 Neurological:: alert Speech:: nods head, mouths words (sometimes) and appropriate Answers questions:: sometimes Respiratory:: shallow breathing Cardiovascular: RRR Abdomen: soft and nontender Extremities:: deformities Decubitus:: none Tracheostomy:: to blow by Feeding per:: G tube Complaints:: none ASSESSMENT & PLAN Assessment: 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 No pain issues, and remains comfortable. Ice chips for some oral gratification tried with success without any cough or aspiration and continued.Remains fully dependent for care. interacts some and mostly happy. Tendency for Hypo-natremia on labs being monitored and addressed. No clinical change. Electrolytes improved. monitored regularly. Observed to be having eye inflammation and samples taken and antibiotics initiated. Pt remains fully dependent for care. No discomfort / pain. VSS. No new issues. Family updated from time to time. Feeling better on Bronchodilators Plan: All treatment reviewed and continued.
[2024-12-27] MEDS: LOSARTAN 100 MG TABLET GT (20:11)
[2024-12-27] MEDS: SENNOSIDES 8.6 MG TABLET 17.2 MG GT (20:11)
[2024-12-28] VITALS (8 sets, daily range): BP systolic 104–151; BP diastolic 65–95; PULSE 64–92; RESP 18–20; TEMP 36.1–36.8; O2SAT 93–98
[2024-12-28] MEDS: ESOMEPRAZOLE 40 MG GT (08:13)
[2024-12-28] MEDS: GENTAMICIN 0.3% OPHTH DROPS 75 DROP/5 ML BTL OPHTHALMIC (08:14)
[2024-12-28] MEDS: SODIUM CHLORIDE TAB 1,000 MG TABLET.SOL 1000 MG GT ×2 (08:14→20:08)
[2024-12-28] MEDS: SOD PHOS DI, MONO/K PHOS MONO 250 MG TABLET GT (08:14)
[2024-12-28] MEDS: MULTIVIT-MIN/IRON FUM/FOLIC AC 1 EACH TABLET GT (08:14)
[2024-12-28] MEDS: ACETAMINOPHEN 325 MG TABLET 650 MG GT (11:30)
--- NOTE | 2024-12-28 12:26 | PC.NURSE ---
Late entry for 12/23/24. Unable to take picture of rt eye. Resident did not want to open eye. Notified MD.
--- NOTE | 2024-12-28 17:33 | PC.NURSE ---
Reviewed residents eye picture with Dr. Ulrich, New order to stop Getamicyn eye drops. now and start genteal tears. Wants to let resident's eyes rest x7 days. would like to review pictures again in 7 days. Will re send a new picture in 7 days.
[2024-12-28] MEDS: LOSARTAN 100 MG TABLET GT (20:07)
[2024-12-28] MEDS: SENNOSIDES 8.6 MG TABLET 17.2 MG GT (20:08)
[2024-12-28] MEDS: MAGNESIUM HYDROXIDE 30 ML ORAL SUSP ML GT (20:09)
[2024-12-28] MEDS: DEX/HYPRO/GLY ARTIFICAL TEARS 225 DROP/15 ML BTL BOTH EYES (22:00)
[2024-12-29] VITALS (7 sets, daily range): BP systolic 123–145; BP diastolic 81–84; PULSE 79–98; RESP 16–20; TEMP 36.2–36.6; O2SAT 95–98
[2024-12-29] MEDS: DEX/HYPRO/GLY ARTIFICAL TEARS 225 DROP/15 ML BTL BOTH EYES ×3 (05:05→21:35)
[2024-12-29] MEDS: SOD PHOS DI, MONO/K PHOS MONO 250 MG TABLET GT (08:53)
[2024-12-29] MEDS: ESOMEPRAZOLE 40 MG GT (08:53)
[2024-12-29] MEDS: MULTIVIT-MIN/IRON FUM/FOLIC AC 1 EACH TABLET GT (08:53)
[2024-12-29] MEDS: SODIUM CHLORIDE TAB 1,000 MG TABLET.SOL 1000 MG GT ×2 (08:53→21:35)
--- NOTE | 2024-12-29 13:20 | PD.SAPROG ---
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 (2) Epilepsy, unspecified, not intractable, without status epilepticus: Status: Chronic (3) Essential (primary) hypertension: Status: Chronic (4) Tracheostomy status: Status: Chronic (5) Gastrostomy status: Status: Chronic (6) Chronic respiratory failure, unspecified whether with hypoxia or hypercapnia: Status: Chronic (7) Chronic hyponatremia: Status: Chronic SUBJECTIVE Fever:: none GI:: none Shortness of Breath:: none GI:: no complaints Pain:: none OBJECTIVE Most recent vital signs: Last Vital Signs Temp 97.4 F 01/01/25 17:38 Pulse 78 01/01/25 20:43 Resp 18 01/01/25 20:43 BP 150/86 H 01/01/25 20:09 Pulse Ox 99 01/01/25 20:43 O2 Del Method Blow-by 12/31/24 17:24 O2 Flow Rate 8 01/01/25 20:43 FiO2 30 01/01/25 20:43 Neurological:: alert Speech:: nods head, mouths words (sometimes) and appropriate Answers questions:: sometimes Respiratory:: shallow breathing Cardiovascular: RRR Abdomen: soft and nontender Extremities:: deformities Decubitus:: none Tracheostomy:: to blow by Feeding per:: G tube Complaints:: none ASSESSMENT & PLAN Assessment: 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 No pain issues, and remains comfortable. Ice chips for some oral gratification tried with success without any cough or aspiration and continued.Remains fully dependent for care. interacts some and mostly happy. Tendency for Hypo-natremia on labs being monitored and addressed. No clinical change. Electrolytes improved. monitored regularly. Observed to be having eye inflammation and samples taken and antibiotics initiated. Pt remains fully dependent for care. No discomfort / pain. VSS. No new issues. Family updated from time to time. Feeling better on Bronchodilators Plan: All treatment reviewed and continued.
[2024-12-29] MEDS: LOSARTAN 100 MG TABLET GT (21:33)
[2024-12-29] MEDS: SENNOSIDES 8.6 MG TABLET 17.2 MG GT (21:34)
[2024-12-29] MEDS: ACETAMINOPHEN 325 MG TABLET 650 MG GT (21:35)
[2024-12-30] VITALS (8 sets, daily range): BP systolic 126–172; BP diastolic 76–92; PULSE 67–88; RESP 18–22; TEMP 36.1–36.7; O2SAT 97–99
[2024-12-30] MEDS: IBUPROFEN 100 MG/5 ML ORAL.SUSP 400 MG GT (00:38)
--- NOTE | 2024-12-30 02:51 | PC.NURSE ---
Resident noted to be in pain during med pass, nurses administered Tylenol 2130. During nurses rounds resident again appeared to be in pain and when asked if in pain nodded with rears in her eyes. Charge was made aware, ibuprofen then administered due to ineffectiveness of Tylenol. resident appears to be asleep. No facial grimacing or crying noted.
[2024-12-30] MEDS: DEX/HYPRO/GLY ARTIFICAL TEARS 225 DROP/15 ML BTL BOTH EYES ×3 (05:37→21:15)
[2024-12-30 07:53] LABS: Albumin, Serum 3.7 gm/dL (3.4-4.8); Anion Gap 4 (7-16); BUN/Creatinine Ratio 38 Ratio (12-20); Blood Urea Nitrogen 15 mg/dL (9-23); Calcium 9.0 mg/dL (8.3-10.6); Calcium (Corrected) 9.2 mg/dL (8.5-10.1); Carbon Dioxide 30.1 mMol/L (20.0-31.0); Chloride 96 mMol/L (98-107); Creatinine (Component) 0.4 mg/dL (0.6-1.3); Estimated Creatinine Clearance 97.7 mL/min (>60); Glucose 99 mg/dL (74-106); Osmolality,Calculated 261 (275-295); Phosphorous 4.0 mg/dL (2.4-5.1); Potassium 4.5 mMol/L (3.4-5.1); Sodium 130 mMol/L (136-145); eGFR > 60 See Note
[2024-12-30] MEDS: SOD PHOS DI, MONO/K PHOS MONO 250 MG TABLET GT (08:24)
[2024-12-30] MEDS: MULTIVIT-MIN/IRON FUM/FOLIC AC 1 EACH TABLET GT (08:24)
[2024-12-30] MEDS: ESOMEPRAZOLE 40 MG GT (08:24)
[2024-12-30] MEDS: SODIUM CHLORIDE TAB 1,000 MG TABLET.SOL 1000 MG GT ×2 (08:25→20:02)
--- NOTE | 2024-12-30 17:04 | PC.LAC ---
Renal panel was drawn today, with sodium levl of 130 and on Renal panel every 3 months. Currently on NaCl 1 gm BID and NS 800 ml max q shift. Order received from Dr Gonsalez to do the Renal panel monthly.
[2024-12-30] MEDS: LOSARTAN 100 MG TABLET GT (20:01)
[2024-12-30] MEDS: SENNOSIDES 8.6 MG TABLET 17.2 MG GT (20:01)
[2024-12-30] MEDS: ACETAMINOPHEN 325 MG TABLET 650 MG GT (21:21)
[2024-12-31] VITALS (7 sets, daily range): BP systolic 124–169; BP diastolic 80–83; PULSE 76–97; RESP 18–24; TEMP 36.1–36.5; O2SAT 95–99
[2024-12-31] MEDS: DEX/HYPRO/GLY ARTIFICAL TEARS 225 DROP/15 ML BTL BOTH EYES ×3 (05:06→21:07)
[2024-12-31] MEDS: MULTIVIT-MIN/IRON FUM/FOLIC AC 1 EACH TABLET GT (08:36)
[2024-12-31] MEDS: SODIUM CHLORIDE TAB 1,000 MG TABLET.SOL 1000 MG GT ×2 (08:36→20:26)
[2024-12-31] MEDS: SOD PHOS DI, MONO/K PHOS MONO 250 MG TABLET GT (08:36)
[2024-12-31] MEDS: ESOMEPRAZOLE 40 MG GT (08:36)
[2024-12-31] MEDS: IBUPROFEN 100 MG/5 ML ORAL.SUSP 400 MG GT (20:25)
[2024-12-31] MEDS: LOSARTAN 100 MG TABLET GT (20:25)
[2024-12-31] MEDS: SENNOSIDES 8.6 MG TABLET 17.2 MG GT (20:26)
[2025-01-01] VITALS (7 sets, daily range): BP systolic 136–150; BP diastolic 72–92; PULSE 72–99; RESP 18–20; TEMP 36.1–36.4; O2SAT 96–99
[2025-01-01] MEDS: DEX/HYPRO/GLY ARTIFICAL TEARS 225 DROP/15 ML BTL BOTH EYES ×3 (05:52→21:08)
[2025-01-01] MEDS: ESOMEPRAZOLE 40 MG GT (08:30)
[2025-01-01] MEDS: SOD PHOS DI, MONO/K PHOS MONO 250 MG TABLET GT (08:30)
[2025-01-01] MEDS: MULTIVIT-MIN/IRON FUM/FOLIC AC 1 EACH TABLET GT (08:30)
[2025-01-01] MEDS: SODIUM CHLORIDE TAB 1,000 MG TABLET.SOL 1000 MG GT ×2 (08:31→20:11)
[2025-01-01] MEDS: SENNOSIDES 8.6 MG TABLET 17.2 MG GT (20:10)
[2025-01-01] MEDS: ACETAMINOPHEN 325 MG TABLET 650 MG GT (20:11)
[2025-01-02] VITALS: BP 134/91; PULSE 96; RESP 18; TEMP 36.5
[2025-01-02] MEDS: DEX/HYPRO/GLY ARTIFICAL TEARS 225 DROP/15 ML BTL BOTH EYES ×3 (05:19→21:15)
[2025-01-02 05:22] VITALS: BP 160/98; PULSE 92; RESP 18; TEMP 36.4; O2SAT 97
[2025-01-02 08:05] VITALS: PULSE 69; RESP 16; O2SAT 96
[2025-01-02] MEDS: ESOMEPRAZOLE 40 MG GT (08:22)
[2025-01-02] MEDS: SODIUM CHLORIDE TAB 1,000 MG TABLET.SOL 1000 MG GT ×2 (08:22→20:46)
[2025-01-02] MEDS: SOD PHOS DI, MONO/K PHOS MONO 250 MG TABLET GT (08:22)
[2025-01-02] MEDS: MULTIVIT-MIN/IRON FUM/FOLIC AC 1 EACH TABLET GT (08:22)
[2025-01-02 17:13] VITALS: BP 151/83; PULSE 97; RESP 23; TEMP 36.3; O2SAT 98
[2025-01-02 19:08] VITALS: PULSE 61; RESP 16; O2SAT 98
[2025-01-02 20:47] VITALS: BP 165/98; PULSE 100
[2025-01-02] MEDS: LOSARTAN 100 MG TABLET GT (20:47)
[2025-01-02] MEDS: SENNOSIDES 8.6 MG TABLET 17.2 MG GT (20:47)
--- NOTE | 2025-01-02 22:27 | ESPR_ITS ---
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 (2) Epilepsy, unspecified, not intractable, without status epilepticus: Status: Chronic (3) Essential (primary) hypertension: Status: Chronic (4) Tracheostomy status: Status: Chronic (5) Gastrostomy status: Status: Chronic (6) Chronic respiratory failure, unspecified whether with hypoxia or hypercapnia: Status: Chronic (7) Chronic hyponatremia: Status: Chronic SUBJECTIVE Fever:: none GI:: none Shortness of Breath:: none GI:: no complaints Pain:: none OBJECTIVE Most recent vital signs: Last Vital Signs Temp 97.4 F 01/02/25 17:13 Pulse 100 01/02/25 20:47 Resp 16 01/02/25 19:08 BP 165/98 H 01/02/25 20:47 Pulse Ox 98 01/02/25 19:08 O2 Del Method Blow-by 12/31/24 17:24 O2 Flow Rate 8 01/02/25 19:08 FiO2 30 01/02/25 19:08 Neurological:: alert Speech:: nods head, mouths words (sometimes) and appropriate Answers questions:: sometimes Respiratory:: shallow breathing Cardiovascular: RRR Abdomen: soft and nontender Extremities:: deformities Decubitus:: none Tracheostomy:: to blow by Feeding per:: G tube Complaints:: none ASSESSMENT & PLAN Assessment: 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 No pain issues, and remains comfortable. Ice chips for some oral gratification tried with success without any cough or aspiration and continued.Remains fully dependent for care. interacts some and mostly happy. Tendency for Hypo-natremia on labs being monitored and addressed. No clinical change. Electrolytes improved. monitored regularly. Observed to be having eye inflammation and samples taken and antibiotics initiated. Pt remains fully dependent for care. No discomfort / pain. VSS. No new issues. Family updated from time to time. Feeling better on Bronchodilators Plan: All treatment reviewed and continued.
[2025-01-03] VITALS (8 sets, daily range): BP systolic 103–164; BP diastolic 71–90; PULSE 76–103; RESP 17–20; TEMP 36.1–36.5; O2SAT 94–98
[2025-01-03] MEDS: DEX/HYPRO/GLY ARTIFICAL TEARS 225 DROP/15 ML BTL BOTH EYES ×2 (05:07→13:03)
[2025-01-03] MEDS: ESOMEPRAZOLE 40 MG GT (09:36)
[2025-01-03] MEDS: SOD PHOS DI, MONO/K PHOS MONO 250 MG TABLET GT (09:36)
[2025-01-03] MEDS: MULTIVIT-MIN/IRON FUM/FOLIC AC 1 EACH TABLET GT (09:37)
[2025-01-03] MEDS: SODIUM CHLORIDE TAB 1,000 MG TABLET.SOL 1000 MG GT ×2 (09:37→20:28)
[2025-01-03] MEDS: SENNOSIDES 8.6 MG TABLET 17.2 MG GT (20:27)
[2025-01-03] MEDS: LOSARTAN 100 MG TABLET GT (20:27)
[2025-01-04 05:36] VITALS: BP 149/93; PULSE 82; RESP 18; TEMP 36.3; O2SAT 97
[2025-01-04] MEDS: DEX/HYPRO/GLY ARTIFICAL TEARS 225 DROP/15 ML BTL BOTH EYES ×3 (05:59→21:39)
[2025-01-04 07:22] VITALS: PULSE 101; RESP 18; O2SAT 99
[2025-01-04] MEDS: SODIUM CHLORIDE TAB 1,000 MG TABLET.SOL 1000 MG GT ×2 (09:34→20:23)
[2025-01-04] MEDS: ESOMEPRAZOLE 40 MG GT (09:34)
[2025-01-04] MEDS: MULTIVIT-MIN/IRON FUM/FOLIC AC 1 EACH TABLET GT (09:34)
[2025-01-04] MEDS: SOD PHOS DI, MONO/K PHOS MONO 250 MG TABLET GT (09:34)
[2025-01-04 11:32] VITALS: BP 152/91; PULSE 84; RESP 18; TEMP 36.1; O2SAT 96
[2025-01-04 16:33] VITALS: PULSE 85; RESP 18; O2SAT 93; O2SAT 95
[2025-01-04 16:45] VITALS: BP 158/96; PULSE 86; RESP 18; TEMP 36.4; O2SAT 96
[2025-01-04 20:22] VITALS: BP 184/99; PULSE 98
[2025-01-04] MEDS: LOSARTAN 100 MG TABLET GT (20:22)
[2025-01-04] MEDS: SENNOSIDES 8.6 MG TABLET 17.2 MG GT (20:23)
[2025-01-04] MEDS: ACETAMINOPHEN 325 MG TABLET 650 MG GT (20:23)
[2025-01-05] VITALS (7 sets, daily range): BP systolic 111–157; BP diastolic 78–93; PULSE 64–106; RESP 17–20; TEMP 36.2–36.6; O2SAT 96–99
[2025-01-05] MEDS: DEX/HYPRO/GLY ARTIFICAL TEARS 225 DROP/15 ML BTL BOTH EYES ×3 (05:50→21:35)
[2025-01-05] MEDS: MULTIVIT-MIN/IRON FUM/FOLIC AC 1 EACH TABLET GT (08:53)
[2025-01-05] MEDS: SODIUM CHLORIDE TAB 1,000 MG TABLET.SOL 1000 MG GT ×2 (08:53→20:13)
[2025-01-05] MEDS: ESOMEPRAZOLE 40 MG GT (08:53)
[2025-01-05] MEDS: SOD PHOS DI, MONO/K PHOS MONO 250 MG TABLET GT (08:53)
--- NOTE | 2025-01-05 11:49 | PC.SS ---
Resident remains on blow by with trach in place and GT for medication and nutrition. Resident daughter is her decision maker, resident is unable to make needs known due to absence of speech. Resident will remain in current care and will continue to have all subacute care needs met by staff. This SSD to make daily contact with resident and will continue to offer support as needed.
[2025-01-05] MEDS: LOSARTAN 100 MG TABLET GT (20:12)
[2025-01-05] MEDS: ACETAMINOPHEN 325 MG TABLET 650 MG GT (20:13)
[2025-01-05] MEDS: SENNOSIDES 8.6 MG TABLET 17.2 MG GT (20:13)
[2025-01-06] VITALS (7 sets, daily range): BP systolic 96–139; BP diastolic 66–91; PULSE 71–89; RESP 17–18; TEMP 36.2; O2SAT 96–99
[2025-01-06] MEDS: DEX/HYPRO/GLY ARTIFICAL TEARS 225 DROP/15 ML BTL BOTH EYES ×3 (05:10→21:02)
[2025-01-06] MEDS: ESOMEPRAZOLE 40 MG GT (08:03)
[2025-01-06] MEDS: SODIUM CHLORIDE TAB 1,000 MG TABLET.SOL 1000 MG GT ×2 (08:04→20:16)
[2025-01-06] MEDS: MULTIVIT-MIN/IRON FUM/FOLIC AC 1 EACH TABLET GT (08:04)
[2025-01-06] MEDS: SOD PHOS DI, MONO/K PHOS MONO 250 MG TABLET GT (08:04)
[2025-01-06] MEDS: ACETAMINOPHEN 325 MG TABLET 650 MG GT (08:53)
--- NOTE | 2025-01-06 17:26 | PD.SAPROG ---
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 (2) Epilepsy, unspecified, not intractable, without status epilepticus: Status: Chronic (3) Essential (primary) hypertension: Status: Chronic (4) Tracheostomy status: Status: Chronic (5) Gastrostomy status: Status: Chronic (6) Chronic respiratory failure, unspecified whether with hypoxia or hypercapnia: Status: Chronic (7) Chronic hyponatremia: Status: Chronic SUBJECTIVE Fever:: none GI:: none Shortness of Breath:: none GI:: no complaints Pain:: none OBJECTIVE Most recent vital signs: Last Vital Signs Temp 97.2 F 01/06/25 17:18 Pulse 76 01/06/25 17:18 Resp 17 01/06/25 17:18 BP 124/81 01/06/25 17:18 Pulse Ox 97 01/06/25 17:18 O2 Del Method Blow-by 01/06/25 17:18 O2 Flow Rate 8 01/06/25 08:38 FiO2 30 01/06/25 08:38 Neurological:: alert Speech:: nods head, mouths words (sometimes) and appropriate Answers questions:: sometimes Respiratory:: shallow breathing Cardiovascular: RRR Abdomen: soft and nontender Extremities:: deformities Decubitus:: none Tracheostomy:: to blow by Feeding per:: G tube Complaints:: none ASSESSMENT & PLAN Assessment: 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 No pain issues, and remains comfortable. Ice chips for some oral gratification tried with success without any cough or aspiration and continued.Remains fully dependent for care. interacts some and mostly happy. Tendency for Hypo-natremia on labs being monitored and addressed. No clinical change. Electrolytes improved. monitored regularly. Observed to be having eye inflammation and samples taken and antibiotics initiated. Pt remains fully dependent for care. No discomfort / pain. VSS. No new issues. Family updated from time to time. Feeling better on Bronchodilators Plan: All treatment reviewed and continued.
[2025-01-06] MEDS: LOSARTAN 100 MG TABLET GT (20:15)
[2025-01-06] MEDS: SENNOSIDES 8.6 MG TABLET 17.2 MG GT (20:15)
[2025-01-07] VITALS (7 sets, daily range): BP systolic 114–165; BP diastolic 66–90; PULSE 71–92; RESP 17–19; TEMP 36.1–36.6; O2SAT 96–99
[2025-01-07] MEDS: DEX/HYPRO/GLY ARTIFICAL TEARS 225 DROP/15 ML BTL BOTH EYES ×3 (05:11→20:24)
[2025-01-07] MEDS: SOD PHOS DI, MONO/K PHOS MONO 250 MG TABLET GT (09:07)
[2025-01-07] MEDS: ESOMEPRAZOLE 40 MG GT (09:07)
[2025-01-07] MEDS: SODIUM CHLORIDE TAB 1,000 MG TABLET.SOL 1000 MG GT ×2 (09:08→20:24)
[2025-01-07] MEDS: MAGNESIUM HYDROXIDE 30 ML ORAL SUSP ML GT (09:08)
[2025-01-07] MEDS: MULTIVIT-MIN/IRON FUM/FOLIC AC 1 EACH TABLET GT (09:08)
[2025-01-07] MEDS: LOSARTAN 100 MG TABLET GT (20:18)
[2025-01-07] MEDS: SENNOSIDES 8.6 MG TABLET 17.2 MG GT (20:19)
[2025-01-08] VITALS (8 sets, daily range): BP systolic 121–171; BP diastolic 79–89; PULSE 69–94; RESP 16–20; TEMP 36.2–36.6; O2SAT 97–99
[2025-01-08] MEDS: DEX/HYPRO/GLY ARTIFICAL TEARS 225 DROP/15 ML BTL BOTH EYES ×2 (05:25→21:32)
[2025-01-08] MEDS: SOD PHOS DI, MONO/K PHOS MONO 250 MG TABLET GT (08:03)
[2025-01-08] MEDS: ESOMEPRAZOLE 40 MG GT (08:03)
[2025-01-08] MEDS: MULTIVIT-MIN/IRON FUM/FOLIC AC 1 EACH TABLET GT (08:04)
[2025-01-08] MEDS: SODIUM CHLORIDE TAB 1,000 MG TABLET.SOL 1000 MG GT ×2 (08:04→20:21)
[2025-01-08] MEDS: LOSARTAN 100 MG TABLET GT (20:19)
[2025-01-08] MEDS: SENNOSIDES 8.6 MG TABLET 17.2 MG GT (20:20)
[2025-01-09] MEDS: DEX/HYPRO/GLY ARTIFICAL TEARS 225 DROP/15 ML BTL BOTH EYES ×3 (05:34→21:47)
[2025-01-09 06:52] VITALS: PULSE 73; RESP 18; O2SAT 98
[2025-01-09] MEDS: SODIUM CHLORIDE TAB 1,000 MG TABLET.SOL 1000 MG GT ×2 (08:30→20:25)
[2025-01-09] MEDS: MULTIVIT-MIN/IRON FUM/FOLIC AC 1 EACH TABLET GT (08:30)
[2025-01-09] MEDS: SOD PHOS DI, MONO/K PHOS MONO 250 MG TABLET GT (08:30)
[2025-01-09] MEDS: ESOMEPRAZOLE 40 MG GT (08:30)
[2025-01-09] MEDS: ACETAMINOPHEN 325 MG TABLET 650 MG GT ×2 (08:35→20:25)
[2025-01-09 11:48] VITALS: BP 166/84; PULSE 88; RESP 20; TEMP 36.5
[2025-01-09 17:42] VITALS: BP 136/74; PULSE 87; RESP 20; TEMP 36.4; O2SAT 98
[2025-01-09 19:35] VITALS: PULSE 70; RESP 18; O2SAT 98
[2025-01-09 20:23] VITALS: BP 157/98; PULSE 89
[2025-01-09] MEDS: LOSARTAN 100 MG TABLET GT (20:23)
[2025-01-09] MEDS: SENNOSIDES 8.6 MG TABLET 17.2 MG GT (20:24)
[2025-01-10] VITALS (7 sets, daily range): BP systolic 116–139; BP diastolic 77–96; PULSE 54–87; RESP 16–20; TEMP 36.1–36.6; O2SAT 93–98
[2025-01-10] MEDS: DEX/HYPRO/GLY ARTIFICAL TEARS 225 DROP/15 ML BTL BOTH EYES ×3 (05:20→21:36)
[2025-01-10] MEDS: SOD PHOS DI, MONO/K PHOS MONO 250 MG TABLET GT (08:56)
[2025-01-10] MEDS: MULTIVIT-MIN/IRON FUM/FOLIC AC 1 EACH TABLET GT (08:56)
[2025-01-10] MEDS: ESOMEPRAZOLE 40 MG GT (08:56)
[2025-01-10] MEDS: SODIUM CHLORIDE TAB 1,000 MG TABLET.SOL 1000 MG GT ×2 (08:56→20:21)
[2025-01-10] MEDS: ACETAMINOPHEN 325 MG TABLET 650 MG GT (08:57)
--- NOTE | 2025-01-10 11:46 | ESPR_ITS ---
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 (2) Epilepsy, unspecified, not intractable, without status epilepticus: Status: Chronic (3) Essential (primary) hypertension: Status: Chronic (4) Tracheostomy status: Status: Chronic (5) Gastrostomy status: Status: Chronic (6) Chronic respiratory failure, unspecified whether with hypoxia or hypercapnia: Status: Chronic (7) Chronic hyponatremia: Status: Chronic SUBJECTIVE Fever:: none GI:: none Shortness of Breath:: none GI:: no complaints Pain:: none OBJECTIVE Most recent vital signs: Last Vital Signs Temp 97.9 F 01/10/25 11:24 Pulse 75 01/10/25 11:24 Resp 16 01/10/25 11:24 BP 129/85 H 01/10/25 11:24 Pulse Ox 93 L 01/10/25 07:22 O2 Del Method Blow-by 01/09/25 17:42 O2 Flow Rate 8 01/10/25 07:22 FiO2 30 01/10/25 07:22 Neurological:: alert Speech:: nods head, mouths words (sometimes) and appropriate Answers questions:: sometimes Respiratory:: shallow breathing Cardiovascular: RRR Abdomen: soft and nontender Extremities:: deformities Decubitus:: none Tracheostomy:: to blow by Feeding per:: G tube Complaints:: none ASSESSMENT & PLAN Assessment: 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 No pain issues, and remains comfortable. Ice chips for some oral gratification tried with success without any cough or aspiration and continued.Remains fully dependent for care. interacts some and mostly happy. Tendency for Hypo-natremia on labs being monitored and addressed. No clinical change. Electrolytes improved. monitored regularly. Observed to be having eye inflammation and samples taken and antibiotics initiated. Pt remains fully dependent for care. No discomfort / pain. VSS. No new issues. Family updated from time to time. Feeling better on Bronchodilators Plan: All treatment reviewed and continued.
[2025-01-10] MEDS: LOSARTAN 100 MG TABLET GT (20:20)
[2025-01-10] MEDS: SENNOSIDES 8.6 MG TABLET 17.2 MG GT (20:21)
[2025-01-10] MEDS: MAGNESIUM HYDROXIDE 30 ML ORAL SUSP ML GT (20:21)
[2025-01-11] VITALS (7 sets, daily range): BP systolic 126–157; BP diastolic 80–97; PULSE 88–99; RESP 18–20; TEMP 36.3–36.6; O2SAT 97–99
[2025-01-11] MEDS: DEX/HYPRO/GLY ARTIFICAL TEARS 225 DROP/15 ML BTL BOTH EYES ×3 (05:03→21:19)
[2025-01-11] MEDS: ESOMEPRAZOLE 40 MG GT (08:01)
[2025-01-11] MEDS: SOD PHOS DI, MONO/K PHOS MONO 250 MG TABLET GT (08:02)
[2025-01-11] MEDS: MULTIVIT-MIN/IRON FUM/FOLIC AC 1 EACH TABLET GT (08:02)
[2025-01-11] MEDS: SODIUM CHLORIDE TAB 1,000 MG TABLET.SOL 1000 MG GT ×2 (08:03→20:36)
[2025-01-11] MEDS: SENNOSIDES 8.6 MG TABLET 17.2 MG GT (20:35)
[2025-01-11] MEDS: LOSARTAN 100 MG TABLET GT (20:35)
[2025-01-12] VITALS (8 sets, daily range): BP systolic 145–174; BP diastolic 80–95; PULSE 78–89; RESP 18–22; TEMP 36.1–36.6; O2SAT 6–97
[2025-01-12] MEDS: DEX/HYPRO/GLY ARTIFICAL TEARS 225 DROP/15 ML BTL BOTH EYES ×3 (05:23→22:00)
[2025-01-12] MEDS: ESOMEPRAZOLE 40 MG GT (08:10)
[2025-01-12] MEDS: SODIUM CHLORIDE TAB 1,000 MG TABLET.SOL 1000 MG GT ×2 (08:11→20:09)
[2025-01-12] MEDS: MULTIVIT-MIN/IRON FUM/FOLIC AC 1 EACH TABLET GT (08:11)
[2025-01-12] MEDS: SOD PHOS DI, MONO/K PHOS MONO 250 MG TABLET GT (08:11)
[2025-01-12] MEDS: SENNOSIDES 8.6 MG TABLET 17.2 MG GT (20:09)
[2025-01-12] MEDS: LOSARTAN 100 MG TABLET GT (20:09)
[2025-01-13] VITALS: BP 113/64; PULSE 87; RESP 20; TEMP 36.4
[2025-01-13] MEDS: DEX/HYPRO/GLY ARTIFICAL TEARS 225 DROP/15 ML BTL BOTH EYES ×3 (05:10→22:00)
[2025-01-13 05:54] VITALS: BP 143/88; PULSE 82; RESP 22; TEMP 36.6; O2SAT 96
[2025-01-13 07:05] VITALS: PULSE 83; RESP 18; RESP 8; O2SAT 97
[2025-01-13] MEDS: ESOMEPRAZOLE 40 MG GT (08:20)
[2025-01-13] MEDS: SOD PHOS DI, MONO/K PHOS MONO 250 MG TABLET GT (08:20)
[2025-01-13] MEDS: MULTIVIT-MIN/IRON FUM/FOLIC AC 1 EACH TABLET GT (08:20)
[2025-01-13] MEDS: SODIUM CHLORIDE TAB 1,000 MG TABLET.SOL 1000 MG GT ×2 (08:20→20:09)
[2025-01-13 12:00] VITALS: BP 121/87; PULSE 96; RESP 20; TEMP 36.4
[2025-01-13 17:37] VITALS: BP 114/84; PULSE 91; RESP 20; TEMP 36.3; O2SAT 97
[2025-01-13 20:08] VITALS: BP 148/89; PULSE 97
[2025-01-13] MEDS: LOSARTAN 100 MG TABLET GT (20:08)
[2025-01-13] MEDS: SENNOSIDES 8.6 MG TABLET 17.2 MG GT (20:09)
[2025-01-14] VITALS (8 sets, daily range): BP systolic 111–171; BP diastolic 73–95; PULSE 71–99; RESP 16–24; TEMP 36.1–36.6; O2SAT 96–99
[2025-01-14] MEDS: DEX/HYPRO/GLY ARTIFICAL TEARS 225 DROP/15 ML BTL BOTH EYES ×3 (05:08→21:08)
[2025-01-14] MEDS: CARBAMIDE PEROXIDE OTIC SOL 15 ML BTL 5 DROP BOTH EARS (08:03)
[2025-01-14] MEDS: SOD PHOS DI, MONO/K PHOS MONO 250 MG TABLET GT (08:04)
[2025-01-14] MEDS: MULTIVIT-MIN/IRON FUM/FOLIC AC 1 EACH TABLET GT (08:04)
[2025-01-14] MEDS: ESOMEPRAZOLE 40 MG GT (08:04)
[2025-01-14] MEDS: SODIUM CHLORIDE TAB 1,000 MG TABLET.SOL 1000 MG GT ×2 (08:04→20:49)
[2025-01-14] MEDS: SENNOSIDES 8.6 MG TABLET 17.2 MG GT (20:49)
[2025-01-14] MEDS: LOSARTAN 100 MG TABLET GT (20:50)
--- NOTE | 2025-01-14 22:04 | PD.SAPROG ---
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 (2) Epilepsy, unspecified, not intractable, without status epilepticus: Status: Chronic (3) Essential (primary) hypertension: Status: Chronic (4) Tracheostomy status: Status: Chronic (5) Gastrostomy status: Status: Chronic (6) Chronic respiratory failure, unspecified whether with hypoxia or hypercapnia: Status: Chronic (7) Chronic hyponatremia: Status: Chronic SUBJECTIVE Fever:: none GI:: none Shortness of Breath:: none GI:: no complaints Pain:: none OBJECTIVE Most recent vital signs: Last Vital Signs Temp 97 F 01/14/25 17:01 Pulse 99 01/14/25 20:50 Resp 20 01/14/25 17:01 BP 171/95 H 01/14/25 20:50 Pulse Ox 99 01/14/25 17:01 O2 Del Method Blow-by 01/14/25 17:01 O2 Flow Rate 8 01/14/25 07:17 FiO2 30 01/14/25 07:17 Neurological:: alert Speech:: nods head, mouths words (sometimes) and appropriate Answers questions:: sometimes Respiratory:: shallow breathing Cardiovascular: RRR Abdomen: soft and nontender Extremities:: deformities Decubitus:: none Tracheostomy:: to blow by Feeding per:: G tube Complaints:: none ASSESSMENT & PLAN Assessment: 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 No pain issues, and remains comfortable. Ice chips for some oral gratification tried with success without any cough or aspiration and continued.Remains fully dependent for care. interacts some and mostly happy. Tendency for Hypo-natremia on labs being monitored and addressed. No clinical change. Electrolytes improved. monitored regularly. Observed to be having eye inflammation and samples taken and antibiotics initiated. Pt remains fully dependent for care. No discomfort / pain. VSS. No new issues. Family updated from time to time. Feeling better on Bronchodilators Plan: All treatment reviewed and continued.
[2025-01-15] VITALS (8 sets, daily range): BP systolic 114–170; BP diastolic 75–98; PULSE 75–98; RESP 18–20; TEMP 36.1–36.6; O2SAT 96–99
[2025-01-15] MEDS: DEX/HYPRO/GLY ARTIFICAL TEARS 225 DROP/15 ML BTL BOTH EYES ×3 (05:28→22:00)
[2025-01-15] MEDS: SOD PHOS DI, MONO/K PHOS MONO 250 MG TABLET GT (08:03)
[2025-01-15] MEDS: MULTIVIT-MIN/IRON FUM/FOLIC AC 1 EACH TABLET GT (08:03)
[2025-01-15] MEDS: ESOMEPRAZOLE 40 MG GT (08:03)
[2025-01-15] MEDS: SODIUM CHLORIDE TAB 1,000 MG TABLET.SOL 1000 MG GT ×2 (08:04→20:07)
[2025-01-15] MEDS: LOSARTAN 100 MG TABLET GT (20:07)
[2025-01-15] MEDS: SENNOSIDES 8.6 MG TABLET 17.2 MG GT (20:07)
[2025-01-16] VITALS (8 sets, daily range): BP systolic 135–143; BP diastolic 78–95; PULSE 71–94; RESP 18–20; TEMP 36.2–36.6; O2SAT 95–98
[2025-01-16] MEDS: DEX/HYPRO/GLY ARTIFICAL TEARS 225 DROP/15 ML BTL BOTH EYES ×3 (05:05→22:00)
[2025-01-16] MEDS: SOD PHOS DI, MONO/K PHOS MONO 250 MG TABLET GT (09:06)
[2025-01-16] MEDS: ESOMEPRAZOLE 40 MG GT (09:06)
[2025-01-16] MEDS: SODIUM CHLORIDE TAB 1,000 MG TABLET.SOL 1000 MG GT ×2 (09:07→20:08)
[2025-01-16] MEDS: MULTIVIT-MIN/IRON FUM/FOLIC AC 1 EACH TABLET GT (09:07)
--- NOTE | 2025-01-16 11:25 | PC.SS ---
Resident is on blow by with trach in place and GT for medication and nutrition. She does not have POA in place nor is she able to participate in process, her decision maker is her daughter Homa. Resident has absence o speech unable to make needs known. She will remain in current care and will have all subacute care needs met by staff. This SSD will continue to make daily contact with resident and will monitor for changes in mood and behavior.
[2025-01-16] MEDS: SENNOSIDES 8.6 MG TABLET 17.2 MG GT (20:08)
[2025-01-16] MEDS: LOSARTAN 100 MG TABLET GT (20:08)
[2025-01-17] VITALS (7 sets, daily range): BP systolic 120–140; BP diastolic 79–89; PULSE 76–88; RESP 18–22; TEMP 36.2–36.3; O2SAT 97–99
[2025-01-17] MEDS: DEX/HYPRO/GLY ARTIFICAL TEARS 225 DROP/15 ML BTL BOTH EYES ×3 (05:17→21:27)
[2025-01-17] MEDS: SODIUM CHLORIDE TAB 1,000 MG TABLET.SOL 1000 MG GT ×2 (08:05→20:14)
[2025-01-17] MEDS: ESOMEPRAZOLE 40 MG GT (08:05)
[2025-01-17] MEDS: MULTIVIT-MIN/IRON FUM/FOLIC AC 1 EACH TABLET GT (08:05)
[2025-01-17] MEDS: SOD PHOS DI, MONO/K PHOS MONO 250 MG TABLET GT (08:05)
[2025-01-17] MEDS: ACETAMINOPHEN 325 MG TABLET 650 MG GT (08:07)
[2025-01-17] MEDS: LOSARTAN 100 MG TABLET GT (20:13)
[2025-01-17] MEDS: SENNOSIDES 8.6 MG TABLET 17.2 MG GT (20:14)
[2025-01-18] VITALS (9 sets, daily range): BP systolic 98–187; BP diastolic 62–101; PULSE 58–107; RESP 15–24; TEMP 36.2–36.7; O2SAT 95–98
[2025-01-18] MEDS: DEX/HYPRO/GLY ARTIFICAL TEARS 225 DROP/15 ML BTL BOTH EYES ×3 (05:15→21:25)
[2025-01-18] MEDS: ESOMEPRAZOLE 40 MG GT (07:53)
[2025-01-18] MEDS: SOD PHOS DI, MONO/K PHOS MONO 250 MG TABLET GT (07:53)
[2025-01-18] MEDS: MULTIVIT-MIN/IRON FUM/FOLIC AC 1 EACH TABLET GT (07:53)
[2025-01-18] MEDS: SODIUM CHLORIDE TAB 1,000 MG TABLET.SOL 1000 MG GT ×2 (07:53→21:25)
[2025-01-18] MEDS: LOSARTAN 100 MG TABLET GT (21:24)
[2025-01-18] MEDS: SENNOSIDES 8.6 MG TABLET 17.2 MG GT (21:25)
--- NOTE | 2025-01-18 22:27 | ESPR_ITS ---
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 (2) Epilepsy, unspecified, not intractable, without status epilepticus: Status: Chronic (3) Essential (primary) hypertension: Status: Chronic (4) Tracheostomy status: Status: Chronic (5) Gastrostomy status: Status: Chronic (6) Chronic respiratory failure, unspecified whether with hypoxia or hypercapnia: Status: Chronic (7) Chronic hyponatremia: Status: Chronic SUBJECTIVE Fever:: none GI:: none Shortness of Breath:: none GI:: no complaints Pain:: none OBJECTIVE Most recent vital signs: Last Vital Signs Temp 97.5 F 01/18/25 17:41 Pulse 83 01/18/25 21:24 Resp 18 01/18/25 17:41 BP 159/76 H 01/18/25 21:24 Pulse Ox 96 01/18/25 17:41 O2 Del Method Blow-by 01/18/25 06:00 O2 Flow Rate 8 01/18/25 13:35 FiO2 30 01/18/25 13:35 Neurological:: alert Speech:: nods head, mouths words (sometimes) and appropriate Answers questions:: sometimes Respiratory:: shallow breathing Cardiovascular: RRR Abdomen: soft and nontender Extremities:: deformities Decubitus:: none Tracheostomy:: to blow by Feeding per:: G tube Complaints:: none ASSESSMENT & PLAN Assessment: 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 No pain issues, and remains comfortable. Ice chips for some oral gratification tried with success without any cough or aspiration and continued.Remains fully dependent for care. interacts some and mostly happy. Tendency for Hypo-natremia on labs being monitored and addressed. No clinical change. Electrolytes improved. monitored regularly. Observed to be having eye inflammation and samples taken and antibiotics initiated. Pt remains fully dependent for care. No discomfort / pain. . No new issues. Family updated from time to time. Feeling better on Bronchodilators. VSS Plan: All treatment reviewed and continued.
[2025-01-19] VITALS (7 sets, daily range): BP systolic 149–171; BP diastolic 81–96; PULSE 73–96; RESP 16–24; TEMP 36–36.2; O2SAT 95–97
[2025-01-19] MEDS: DEX/HYPRO/GLY ARTIFICAL TEARS 225 DROP/15 ML BTL BOTH EYES ×3 (05:35→21:15)
[2025-01-19] MEDS: ESOMEPRAZOLE 40 MG GT (08:00)
[2025-01-19] MEDS: SOD PHOS DI, MONO/K PHOS MONO 250 MG TABLET GT (08:00)
[2025-01-19] MEDS: SODIUM CHLORIDE TAB 1,000 MG TABLET.SOL 1000 MG GT ×2 (08:01→20:31)
[2025-01-19] MEDS: MULTIVIT-MIN/IRON FUM/FOLIC AC 1 EACH TABLET GT (08:01)
[2025-01-19] MEDS: LOSARTAN 100 MG TABLET GT (20:31)
[2025-01-19] MEDS: SENNOSIDES 8.6 MG TABLET 17.2 MG GT (20:31)
[2025-01-20] VITALS (7 sets, daily range): BP systolic 127–171; BP diastolic 43–89; PULSE 74–96; RESP 17–24; TEMP 36.2–36.5; O2SAT 96–100
[2025-01-20] MEDS: DEX/HYPRO/GLY ARTIFICAL TEARS 225 DROP/15 ML BTL BOTH EYES ×3 (05:06→21:04)
[2025-01-20] MEDS: ESOMEPRAZOLE 40 MG GT (09:16)
[2025-01-20] MEDS: SOD PHOS DI, MONO/K PHOS MONO 250 MG TABLET GT (09:17)
[2025-01-20] MEDS: SODIUM CHLORIDE TAB 1,000 MG TABLET.SOL 1000 MG GT ×2 (09:17→20:19)
[2025-01-20] MEDS: MULTIVIT-MIN/IRON FUM/FOLIC AC 1 EACH TABLET GT (09:17)
[2025-01-20] MEDS: LOSARTAN 100 MG TABLET GT (20:18)
[2025-01-20] MEDS: SENNOSIDES 8.6 MG TABLET 17.2 MG GT (20:19)
[2025-01-21] VITALS (7 sets, daily range): BP systolic 136–157; BP diastolic 79–89; PULSE 74–96; RESP 17–24; TEMP 36.3–36.5; O2SAT 96–98
[2025-01-21] MEDS: DEX/HYPRO/GLY ARTIFICAL TEARS 225 DROP/15 ML BTL BOTH EYES ×3 (05:08→21:53)
[2025-01-21] MEDS: MULTIVIT-MIN/IRON FUM/FOLIC AC 1 EACH TABLET GT (09:27)
[2025-01-21] MEDS: SOD PHOS DI, MONO/K PHOS MONO 250 MG TABLET GT (09:27)
[2025-01-21] MEDS: ESOMEPRAZOLE 40 MG GT (09:27)
[2025-01-21] MEDS: SODIUM CHLORIDE TAB 1,000 MG TABLET.SOL 1000 MG GT ×2 (09:28→20:33)
[2025-01-21] MEDS: SENNOSIDES 8.6 MG TABLET 17.2 MG GT (20:32)
[2025-01-21] MEDS: LOSARTAN 100 MG TABLET GT (20:34)
[2025-01-22] VITALS (7 sets, daily range): BP systolic 103–147; BP diastolic 70–88; PULSE 71–90; RESP 18–24; TEMP 36–36.8; O2SAT 97–99
[2025-01-22] MEDS: DEX/HYPRO/GLY ARTIFICAL TEARS 225 DROP/15 ML BTL BOTH EYES ×3 (05:37→21:01)
[2025-01-22] MEDS: SOD PHOS DI, MONO/K PHOS MONO 250 MG TABLET GT (08:43)
[2025-01-22] MEDS: MULTIVIT-MIN/IRON FUM/FOLIC AC 1 EACH TABLET GT (08:43)
[2025-01-22] MEDS: SODIUM CHLORIDE TAB 1,000 MG TABLET.SOL 1000 MG GT ×2 (08:43→20:10)
[2025-01-22] MEDS: ESOMEPRAZOLE 40 MG GT (08:43)
[2025-01-22] MEDS: ACETAMINOPHEN 325 MG TABLET 650 MG GT (08:44)
--- NOTE | 2025-01-22 15:37 | ESPR_ITS ---
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 (2) Epilepsy, unspecified, not intractable, without status epilepticus: Status: Chronic (3) Essential (primary) hypertension: Status: Chronic (4) Tracheostomy status: Status: Chronic (5) Gastrostomy status: Status: Chronic (6) Chronic respiratory failure, unspecified whether with hypoxia or hypercapnia: Status: Chronic (7) Chronic hyponatremia: Status: Chronic SUBJECTIVE Fever:: none GI:: none Shortness of Breath:: none GI:: no complaints Pain:: none OBJECTIVE Most recent vital signs: Last Vital Signs Temp 97.1 F 01/22/25 12:00 Pulse 83 01/22/25 12:00 Resp 18 01/22/25 12:00 BP 138/86 H 01/22/25 12:00 Pulse Ox 97 01/22/25 07:45 O2 Del Method Blow-by 01/22/25 05:56 O2 Flow Rate 8 01/22/25 07:45 FiO2 30 01/22/25 07:45 Neurological:: alert Speech:: nods head, mouths words (sometimes) and appropriate Answers questions:: sometimes Respiratory:: shallow breathing Cardiovascular: RRR Abdomen: soft and nontender Extremities:: deformities Decubitus:: none Tracheostomy:: to blow by Feeding per:: G tube Complaints:: none ASSESSMENT & PLAN Assessment: 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 No pain issues, and remains comfortable. Ice chips for some oral gratification tried with success without any cough or aspiration and continued.Remains fully dependent for care. interacts some and mostly happy. Tendency for Hypo-natremia on labs being monitored and addressed. No clinical change. Electrolytes improved. monitored regularly. Observed to be having eye inflammation and samples taken and antibiotics initiated. Pt remains fully dependent for care. No discomfort / pain. . No new issues. Family updated from time to time. Feeling better on Bronchodilators. VSS Plan: All treatment reviewed and continued.
[2025-01-22] MEDS: LOSARTAN 100 MG TABLET GT (20:10)
[2025-01-22] MEDS: SENNOSIDES 8.6 MG TABLET 17.2 MG GT (20:10)
[2025-01-23] VITALS (8 sets, daily range): BP systolic 101–151; BP diastolic 69–88; PULSE 72–88; RESP 16–24; TEMP 36.1–36.3; O2SAT 96–99
[2025-01-23] MEDS: DEX/HYPRO/GLY ARTIFICAL TEARS 225 DROP/15 ML BTL BOTH EYES ×3 (05:05→21:10)
[2025-01-23] MEDS: MULTIVIT-MIN/IRON FUM/FOLIC AC 1 EACH TABLET GT (08:03)
[2025-01-23] MEDS: ESOMEPRAZOLE 40 MG GT (08:03)
[2025-01-23] MEDS: SODIUM CHLORIDE TAB 1,000 MG TABLET.SOL 1000 MG GT ×2 (08:03→20:55)
[2025-01-23] MEDS: SOD PHOS DI, MONO/K PHOS MONO 250 MG TABLET GT (08:03)
--- NOTE | 2025-01-23 15:14 | PC.SS ---
Resident remains on blow by with trach in place and GT for medication and nutrition. She does not have POA in place, family aware this service is offered in facility but resident is unable to participate in this service. She is represented by her daughter Homa as she is unable to make needs known. Resident will remain in current care and will continue to have all subacute care needs met by staff. This SSD will continue to make daily contact with resident and will offer support as needed.
[2025-01-23] MEDS: SENNOSIDES 8.6 MG TABLET 17.2 MG GT (20:55)
[2025-01-23] MEDS: LOSARTAN 100 MG TABLET GT (20:55)
[2025-01-24] VITALS (7 sets, daily range): BP systolic 102–155; BP diastolic 70–89; PULSE 70–115; RESP 16–24; TEMP 36.1–36.4; O2SAT 95–97
[2025-01-24] MEDS: DEX/HYPRO/GLY ARTIFICAL TEARS 225 DROP/15 ML BTL BOTH EYES ×3 (05:05→20:10)
[2025-01-24] MEDS: ESOMEPRAZOLE 40 MG GT (08:18)
[2025-01-24] MEDS: SOD PHOS DI, MONO/K PHOS MONO 250 MG TABLET GT (08:18)
[2025-01-24] MEDS: MULTIVIT-MIN/IRON FUM/FOLIC AC 1 EACH TABLET GT (08:19)
[2025-01-24] MEDS: SODIUM CHLORIDE TAB 1,000 MG TABLET.SOL 1000 MG GT ×2 (08:20→20:10)
[2025-01-24] MEDS: ACETAMINOPHEN 325 MG TABLET 650 MG GT (11:52)
[2025-01-24] MEDS: SENNOSIDES 8.6 MG TABLET 17.2 MG GT (20:09)
[2025-01-24] MEDS: LOSARTAN 100 MG TABLET GT (20:09)
[2025-01-25] VITALS (7 sets, daily range): BP systolic 114–179; BP diastolic 70–98; PULSE 73–87; RESP 16–24; TEMP 35.9–36.4; O2SAT 96–98
[2025-01-25] MEDS: DEX/HYPRO/GLY ARTIFICAL TEARS 225 DROP/15 ML BTL BOTH EYES ×2 (05:07→21:04)
[2025-01-25] MEDS: SODIUM CHLORIDE TAB 1,000 MG TABLET.SOL 1000 MG GT ×2 (08:06→20:34)
[2025-01-25] MEDS: MULTIVIT-MIN/IRON FUM/FOLIC AC 1 EACH TABLET GT (08:06)
[2025-01-25] MEDS: SOD PHOS DI, MONO/K PHOS MONO 250 MG TABLET GT (08:06)
[2025-01-25] MEDS: ESOMEPRAZOLE 40 MG GT (08:06)
[2025-01-25] MEDS: ACETAMINOPHEN 325 MG TABLET 650 MG GT (08:07)
[2025-01-25] MEDS: LOSARTAN 100 MG TABLET GT (20:34)
[2025-01-25] MEDS: SENNOSIDES 8.6 MG TABLET 17.2 MG GT (20:34)
[2025-01-26] VITALS: BP 133/83; PULSE 106; RESP 22; TEMP 36.6
[2025-01-26] MEDS: DEX/HYPRO/GLY ARTIFICAL TEARS 225 DROP/15 ML BTL BOTH EYES ×3 (05:17→21:20)
[2025-01-26 05:48] VITALS: BP 127/85; PULSE 93; RESP 20; TEMP 36.3
[2025-01-26] MEDS: SOD PHOS DI, MONO/K PHOS MONO 250 MG TABLET GT (07:54)
[2025-01-26] MEDS: ESOMEPRAZOLE 40 MG GT (07:54)
[2025-01-26] MEDS: MULTIVIT-MIN/IRON FUM/FOLIC AC 1 EACH TABLET GT (07:54)
[2025-01-26] MEDS: SODIUM CHLORIDE TAB 1,000 MG TABLET.SOL 1000 MG GT ×2 (07:55→20:24)
[2025-01-26 09:23] VITALS: PULSE 88; RESP 19; O2SAT 97; O2SAT 98
[2025-01-26] MEDS: ACETAMINOPHEN 325 MG TABLET 650 MG GT (11:26)
[2025-01-26 11:45] VITALS: BP 124/78; PULSE 106; RESP 22; TEMP 36.8
[2025-01-26 18:00] VITALS: BP 129/84; PULSE 97; RESP 24; TEMP 36.6; O2SAT 97
[2025-01-26 20:23] VITALS: BP 144/89; PULSE 93
[2025-01-26] MEDS: LOSARTAN 100 MG TABLET GT (20:23)
[2025-01-26] MEDS: SENNOSIDES 8.6 MG TABLET 17.2 MG GT (20:24)
--- NOTE | 2025-01-26 23:00 | ESPR_ITS ---
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 (2) Epilepsy, unspecified, not intractable, without status epilepticus: Status: Chronic (3) Essential (primary) hypertension: Status: Chronic (4) Tracheostomy status: Status: Chronic (5) Gastrostomy status: Status: Chronic (6) Chronic respiratory failure, unspecified whether with hypoxia or hypercapnia: Status: Chronic (7) Chronic hyponatremia: Status: Chronic SUBJECTIVE Fever:: none GI:: none Shortness of Breath:: none GI:: no complaints Pain:: none OBJECTIVE Most recent vital signs: Last Vital Signs Temp 98 F 01/26/25 18:00 Pulse 93 01/26/25 20:23 Resp 24 H 01/26/25 18:00 BP 144/89 H 01/26/25 20:23 Pulse Ox 97 01/26/25 18:00 O2 Del Method Blow-by 01/26/25 11:45 O2 Flow Rate 8 01/26/25 09:23 FiO2 30 01/26/25 09:23 Neurological:: alert Speech:: nods head, mouths words (sometimes) and appropriate Answers questions:: sometimes Respiratory:: shallow breathing Cardiovascular: RRR Abdomen: soft and nontender Extremities:: deformities Decubitus:: none Tracheostomy:: to blow by Feeding per:: G tube Complaints:: none ASSESSMENT & PLAN Assessment: 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 No pain issues, and remains comfortable. Ice chips for some oral gratification tried with success without any cough or aspiration and continued.Remains fully dependent for care. interacts some and mostly happy. Tendency for Hypo-natremia on labs being monitored and addressed. No clinical change. Electrolytes improved. monitored regularly. Observed to be having eye inflammation and samples taken and antibiotics initiated. Pt remains fully dependent for care. No discomfort / pain. . No new issues. Family updated from time to time. Feeling better on Bronchodilators. VSS. No new issues Plan: All treatment reviewed and continued.
[2025-01-27] VITALS (9 sets, daily range): BP systolic 126–138; BP diastolic 84–94; PULSE 78–91; RESP 17–24; TEMP 36.1–36.7; O2SAT 95–99; BMI 26.0
[2025-01-27] MEDS: IPRATROPIUM BROMIDE 200 PUFF/INH INHALER INH (00:39)
[2025-01-27] MEDS: DEX/HYPRO/GLY ARTIFICAL TEARS 225 DROP/15 ML BTL BOTH EYES ×2 (05:12→14:10)
[2025-01-27] MEDS: SOD PHOS DI, MONO/K PHOS MONO 250 MG TABLET GT (08:08)
[2025-01-27] MEDS: MULTIVIT-MIN/IRON FUM/FOLIC AC 1 EACH TABLET GT (08:08)
[2025-01-27] MEDS: ESOMEPRAZOLE 40 MG GT (08:08)
[2025-01-27] MEDS: SODIUM CHLORIDE TAB 1,000 MG TABLET.SOL 1000 MG GT ×2 (08:08→20:12)
[2025-01-27] MEDS: LOSARTAN 100 MG TABLET GT (20:12)
[2025-01-27] MEDS: ACETAMINOPHEN 325 MG TABLET 650 MG GT (20:12)
[2025-01-27] MEDS: SENNOSIDES 8.6 MG TABLET 17.2 MG GT (20:12)
[2025-01-27] MEDS: MAGNESIUM HYDROXIDE 30 ML ORAL SUSP ML GT (20:13)
[2025-01-28] VITALS (8 sets, daily range): BP systolic 108–148; BP diastolic 70–91; PULSE 77–93; RESP 17–24; TEMP 36.3–36.4; O2SAT 96–98
[2025-01-28] MEDS: SOD PHOS DI, MONO/K PHOS MONO 250 MG TABLET GT (08:20)
[2025-01-28] MEDS: ESOMEPRAZOLE 40 MG GT (08:20)
[2025-01-28] MEDS: MULTIVIT-MIN/IRON FUM/FOLIC AC 1 EACH TABLET GT (08:21)
[2025-01-28] MEDS: SODIUM CHLORIDE TAB 1,000 MG TABLET.SOL 1000 MG GT ×2 (08:21→20:08)
--- NOTE | 2025-01-28 13:40 | PD.SAPROG ---
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 (2) Epilepsy, unspecified, not intractable, without status epilepticus: Status: Chronic (3) Essential (primary) hypertension: Status: Chronic (4) Tracheostomy status: Status: Chronic (5) Gastrostomy status: Status: Chronic (6) Chronic respiratory failure, unspecified whether with hypoxia or hypercapnia: Status: Chronic (7) Chronic hyponatremia: Status: Chronic SUBJECTIVE Fever:: none GI:: none Shortness of Breath:: none GI:: no complaints Pain:: none OBJECTIVE Most recent vital signs: Last Vital Signs Temp 97.1 F 01/31/25 16:55 Pulse 81 01/31/25 16:55 Resp 17 01/31/25 16:55 BP 120/82 01/31/25 16:55 Pulse Ox 96 01/31/25 09:09 O2 Del Method Blow-by 01/29/25 17:55 O2 Flow Rate 8 01/31/25 09:09 FiO2 30 01/31/25 09:09 Neurological:: alert Speech:: nods head, mouths words (sometimes) and appropriate Answers questions:: sometimes Respiratory:: shallow breathing Cardiovascular: RRR Abdomen: soft and nontender Extremities:: deformities Decubitus:: none Tracheostomy:: to blow by Feeding per:: G tube Complaints:: none ASSESSMENT & PLAN Assessment: 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 No pain issues, and remains comfortable. Ice chips for some oral gratification tried with success without any cough or aspiration and continued.Remains fully dependent for care. interacts some and mostly happy. Tendency for Hypo-natremia on labs being monitored and addressed. No clinical change. Electrolytes improved. monitored regularly. Observed to be having eye inflammation and samples taken and antibiotics initiated. Pt remains fully dependent for care. No discomfort / pain. . No new issues. Family updated from time to time. Feeling better on Bronchodilators. VSS. Mild hyponatremia being addressed by some fluid restriction. Plan: All treatment reviewed and continued.
[2025-01-28] MEDS: SENNOSIDES 8.6 MG TABLET 17.2 MG GT (20:08)
[2025-01-28] MEDS: LOSARTAN 100 MG TABLET GT (20:08)
[2025-01-29] VITALS (7 sets, daily range): BP systolic 137–142; BP diastolic 78–89; PULSE 78–100; RESP 17–24; TEMP 36.2–36.5; O2SAT 96–100
[2025-01-29] MEDS: DEX/HYPRO/GLY ARTIFICAL TEARS 225 DROP/15 ML BTL BOTH EYES ×3 (05:05→21:20)
[2025-01-29] MEDS: SOD PHOS DI, MONO/K PHOS MONO 250 MG TABLET GT (08:05)
[2025-01-29] MEDS: SODIUM CHLORIDE TAB 1,000 MG TABLET.SOL 1000 MG GT ×2 (08:05→20:20)
[2025-01-29] MEDS: MULTIVIT-MIN/IRON FUM/FOLIC AC 1 EACH TABLET GT (08:05)
[2025-01-29] MEDS: ESOMEPRAZOLE 40 MG GT (08:05)
[2025-01-29] MEDS: LOSARTAN 100 MG TABLET GT (20:20)
[2025-01-29] MEDS: SENNOSIDES 8.6 MG TABLET 17.2 MG GT (20:20)
[2025-01-30] VITALS (8 sets, daily range): BP systolic 124–145; BP diastolic 79–86; PULSE 74–86; RESP 17–19; TEMP 36.1–36.6; O2SAT 97–99
[2025-01-30] MEDS: DEX/HYPRO/GLY ARTIFICAL TEARS 225 DROP/15 ML BTL BOTH EYES ×2 (05:06→14:59)
[2025-01-30 08:10] LABS: Albumin, Serum 3.7 gm/dL (3.4-4.8); Anion Gap 8 (7-16); BUN/Creatinine Ratio 28 Ratio (12-20); Blood Urea Nitrogen 11 mg/dL (9-23); Calcium 8.9 mg/dL (8.3-10.6); Calcium (Corrected) 9.1 mg/dL (8.5-10.1); Carbon Dioxide 29.6 mMol/L (20.0-31.0); Chloride 91 mMol/L (98-107); Creatinine (Component) 0.4 mg/dL (0.6-1.3); Estimated Creatinine Clearance 98.4 mL/min (>60); Glucose 107 mg/dL (74-106); Osmolality,Calculated 258 (275-295); Phosphorous 4.0 mg/dL (2.4-5.1); Potassium 4.6 mMol/L (3.4-5.1); Sodium 129 mMol/L (136-145); eGFR > 60 See Note
[2025-01-30] MEDS: ESOMEPRAZOLE 40 MG GT (08:26)
[2025-01-30] MEDS: SOD PHOS DI, MONO/K PHOS MONO 250 MG TABLET GT (08:26)
[2025-01-30] MEDS: SODIUM CHLORIDE TAB 1,000 MG TABLET.SOL 1000 MG GT ×2 (08:27→20:09)
[2025-01-30] MEDS: MULTIVIT-MIN/IRON FUM/FOLIC AC 1 EACH TABLET GT (08:27)
--- NOTE | 2025-01-30 18:31 | PC.NURSE ---
Reviewed resident's lab results with Dr. Gonsalez. New orders given. Also spoke to Dr. Ulrich regarding resident's eye drops and how her condition has improved. order to dc eye drops Doctor Serg is releasing resident from his care will consult as needed.
[2025-01-30] MEDS: LOSARTAN 100 MG TABLET GT (20:09)
[2025-01-30] MEDS: SENNOSIDES 8.6 MG TABLET 17.2 MG GT (20:09)
[2025-01-31] MEDS: ESOMEPRAZOLE 40 MG GT (08:31)
[2025-01-31] MEDS: MULTIVIT-MIN/IRON FUM/FOLIC AC 1 EACH TABLET GT (08:32)
[2025-01-31] MEDS: SODIUM CHLORIDE TAB 1,000 MG TABLET.SOL 1000 MG GT ×2 (08:32→20:09)
[2025-01-31] MEDS: SOD PHOS DI, MONO/K PHOS MONO 250 MG TABLET GT (08:32)
[2025-01-31 09:09] VITALS: PULSE 72; RESP 18; O2SAT 96
[2025-01-31 12:00] VITALS: BP 114/74; PULSE 88; RESP 17; TEMP 36.2
[2025-01-31 16:55] VITALS: BP 120/82; PULSE 81; RESP 17; TEMP 36.2
[2025-01-31 18:38] VITALS: PULSE 82; RESP 18; O2SAT 97
[2025-01-31 20:09] VITALS: BP 140/83; PULSE 91
[2025-01-31] MEDS: LOSARTAN 100 MG TABLET GT (20:09)
[2025-01-31] MEDS: SENNOSIDES 8.6 MG TABLET 17.2 MG GT (20:09)
[2025-02-01] VITALS (7 sets, daily range): BP systolic 105–157; BP diastolic 61–99; PULSE 78–101; RESP 17–20; TEMP 36.1–36.5; O2SAT 95–98
[2025-02-01] MEDS: SOD PHOS DI, MONO/K PHOS MONO 250 MG TABLET GT (08:08)
[2025-02-01] MEDS: SODIUM CHLORIDE TAB 1,000 MG TABLET.SOL 1000 MG GT ×2 (08:08→20:05)
[2025-02-01] MEDS: MULTIVIT-MIN/IRON FUM/FOLIC AC 1 EACH TABLET GT (08:08)
[2025-02-01] MEDS: ESOMEPRAZOLE 40 MG GT (08:08)
[2025-02-01] MEDS: MAGNESIUM HYDROXIDE 30 ML ORAL SUSP ML GT (08:09)
[2025-02-01] MEDS: ACETAMINOPHEN 325 MG TABLET 650 MG GT (11:34)
[2025-02-01] MEDS: LOSARTAN 100 MG TABLET GT (20:04)
[2025-02-01] MEDS: SENNOSIDES 8.6 MG TABLET 17.2 MG GT (20:05)
[2025-02-02] VITALS (8 sets, daily range): BP systolic 132–179; BP diastolic 76–98; PULSE 67–98; RESP 18–26; TEMP 36.2–36.8; O2SAT 96–99
[2025-02-02] MEDS: ESOMEPRAZOLE 40 MG GT (09:43)
[2025-02-02] MEDS: SOD PHOS DI, MONO/K PHOS MONO 250 MG TABLET GT (09:44)
[2025-02-02] MEDS: MULTIVIT-MIN/IRON FUM/FOLIC AC 1 EACH TABLET GT (09:44)
[2025-02-02] MEDS: SODIUM CHLORIDE TAB 1,000 MG TABLET.SOL 1000 MG GT ×2 (09:44→20:11)
--- NOTE | 2025-02-02 12:31 | PC.SS ---
Resident remains on blow by with trach in place and GT for medication and nutrition. Resident is total care unable to make needs known, her decision maker is her daughter Homa. Resident does not have POA in place, one has been offered to RP but resident is unable to participate in this process due to cognitive impairment. She has absence of speech and cognitive impairment. Resident will remain in current care and will continue to have all subacute care needs met by staff. This SSD will continue to make daily contact with resident and will monitor for changes in mood and behavior.
--- NOTE | 2025-02-02 19:43 | ESPR_ITS ---
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 (2) Epilepsy, unspecified, not intractable, without status epilepticus: Status: Chronic (3) Essential (primary) hypertension: Status: Chronic (4) Tracheostomy status: Status: Chronic (5) Gastrostomy status: Status: Chronic (6) Chronic respiratory failure, unspecified whether with hypoxia or hypercapnia: Status: Chronic (7) Chronic hyponatremia: Status: Chronic SUBJECTIVE Fever:: none GI:: none Shortness of Breath:: none GI:: no complaints Pain:: none OBJECTIVE Most recent vital signs: Last Vital Signs Temp 98.2 F 02/02/25 17:34 Pulse 67 02/02/25 17:34 Resp 24 H 02/02/25 17:34 BP 145/98 H 02/02/25 17:34 Pulse Ox 98 02/02/25 17:34 O2 Del Method Blow-by 02/02/25 17:34 O2 Flow Rate 8 02/02/25 07:07 FiO2 30 02/02/25 07:07 Neurological:: alert Speech:: nods head, mouths words (sometimes) and appropriate Answers questions:: sometimes Respiratory:: shallow breathing Cardiovascular: RRR Abdomen: soft and nontender Extremities:: deformities Decubitus:: none Tracheostomy:: to blow by Feeding per:: G tube Complaints:: none ASSESSMENT & PLAN Assessment: 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 No pain issues, and remains comfortable. Ice chips for some oral gratification tried with success without any cough or aspiration and continued.Remains fully dependent for care. interacts some and mostly happy. Tendency for Hypo-natremia on labs being monitored and addressed. No clinical change. Electrolytes improved. monitored regularly. Observed to be having eye inflammation and samples taken and antibiotics initiated. Pt remains fully dependent for care. No discomfort / pain. . No new issues. Family updated from time to time. Feeling better on Bronchodilators. VSS. Mild hyponatremia being addressed by some fluid restriction. Plan: All treatment reviewed and continued.
[2025-02-02] MEDS: LOSARTAN 100 MG TABLET GT (20:11)
[2025-02-02] MEDS: SENNOSIDES 8.6 MG TABLET 17.2 MG GT (20:11)
[2025-02-03] VITALS (7 sets, daily range): BP systolic 110–138; BP diastolic 72–84; PULSE 74–92; RESP 17–22; TEMP 36.1–36.6; O2SAT 96–100
[2025-02-03] MEDS: SOD PHOS DI, MONO/K PHOS MONO 250 MG TABLET GT (08:15)
[2025-02-03] MEDS: MULTIVIT-MIN/IRON FUM/FOLIC AC 1 EACH TABLET GT (08:15)
[2025-02-03] MEDS: SODIUM CHLORIDE TAB 1,000 MG TABLET.SOL 1000 MG GT ×2 (08:15→20:09)
[2025-02-03] MEDS: ESOMEPRAZOLE 40 MG GT (08:15)
--- NOTE | 2025-02-03 11:54 | PC.SS ---
Resident was seen by apartment rental agent/Dr. Berry for routine toenail care, she tolerated treatment well with no new orders.
[2025-02-03] MEDS: LOSARTAN 100 MG TABLET GT (20:09)
[2025-02-03] MEDS: SENNOSIDES 8.6 MG TABLET 17.2 MG GT (20:09)
[2025-02-04] VITALS (7 sets, daily range): BP systolic 120–146; BP diastolic 80–86; PULSE 70–97; RESP 18–20; TEMP 36.3–36.4; O2SAT 94–98
[2025-02-04] MEDS: ESOMEPRAZOLE 40 MG GT (08:06)
[2025-02-04] MEDS: MULTIVIT-MIN/IRON FUM/FOLIC AC 1 EACH TABLET GT (08:07)
[2025-02-04] MEDS: SODIUM CHLORIDE TAB 1,000 MG TABLET.SOL 1000 MG GT ×2 (08:07→20:22)
[2025-02-04] MEDS: SOD PHOS DI, MONO/K PHOS MONO 250 MG TABLET GT (08:07)
[2025-02-04] MEDS: LOSARTAN 100 MG TABLET GT (20:20)
[2025-02-04] MEDS: SENNOSIDES 8.6 MG TABLET 17.2 MG GT (20:21)
[2025-02-04] MEDS: MAGNESIUM HYDROXIDE 30 ML ORAL SUSP ML GT (23:46)
[2025-02-05] VITALS (7 sets, daily range): BP systolic 115–149; BP diastolic 79–95; PULSE 62–109; RESP 17–22; TEMP 36.1–36.8; O2SAT 95–99
[2025-02-05] MEDS: ESOMEPRAZOLE 40 MG GT (08:03)
[2025-02-05] MEDS: SODIUM CHLORIDE TAB 1,000 MG TABLET.SOL 1000 MG GT ×2 (08:03→20:17)
[2025-02-05] MEDS: SOD PHOS DI, MONO/K PHOS MONO 250 MG TABLET GT (08:03)
[2025-02-05] MEDS: MULTIVIT-MIN/IRON FUM/FOLIC AC 1 EACH TABLET GT (08:03)
[2025-02-05] MEDS: ACETAMINOPHEN 325 MG TABLET 650 MG GT (16:51)
[2025-02-05] MEDS: SENNOSIDES 8.6 MG TABLET 17.2 MG GT (20:17)
[2025-02-05] MEDS: LOSARTAN 100 MG TABLET GT (20:17)
[2025-02-06] VITALS (7 sets, daily range): BP systolic 96–140; BP diastolic 71–84; PULSE 59–99; RESP 16–20; TEMP 36.2–36.4; O2SAT 94–99; BMI 26.4
[2025-02-06] MEDS: ESOMEPRAZOLE 40 MG GT (08:05)
[2025-02-06] MEDS: SOD PHOS DI, MONO/K PHOS MONO 250 MG TABLET GT (08:06)
[2025-02-06] MEDS: MULTIVIT-MIN/IRON FUM/FOLIC AC 1 EACH TABLET GT (08:06)
[2025-02-06] MEDS: SODIUM CHLORIDE TAB 1,000 MG TABLET.SOL 1000 MG GT ×2 (08:11→20:11)
--- NOTE | 2025-02-06 18:10 | PD.SAPROG ---
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 (2) Epilepsy, unspecified, not intractable, without status epilepticus: Status: Chronic (3) Essential (primary) hypertension: Status: Chronic (4) Tracheostomy status: Status: Chronic (5) Gastrostomy status: Status: Chronic (6) Chronic respiratory failure, unspecified whether with hypoxia or hypercapnia: Status: Chronic (7) Chronic hyponatremia: Status: Chronic SUBJECTIVE Fever:: none GI:: none Shortness of Breath:: none GI:: no complaints Pain:: none OBJECTIVE Most recent vital signs: Last Vital Signs Temp 97.6 F 02/06/25 12:00 Pulse 84 02/06/25 12:00 Resp 19 02/06/25 12:00 BP 119/81 02/06/25 12:00 Pulse Ox 99 02/06/25 06:00 O2 Del Method Blow-by 02/05/25 16:45 O2 Flow Rate 8 02/06/25 05:28 FiO2 30 02/06/25 05:28 Neurological:: alert Speech:: nods head, mouths words (sometimes) and appropriate Answers questions:: sometimes Respiratory:: shallow breathing Cardiovascular: RRR Abdomen: soft and nontender Extremities:: deformities Decubitus:: none Tracheostomy:: to blow by Feeding per:: G tube Complaints:: none ASSESSMENT & PLAN Assessment: 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 No pain issues, and remains comfortable. Ice chips for some oral gratification tried with success without any cough or aspiration and continued.Remains fully dependent for care. interacts some and mostly happy. Tendency for Hypo-natremia on labs being monitored and addressed. No clinical change. Electrolytes improved. monitored regularly. Observed to be having eye inflammation and samples taken and antibiotics initiated. Pt remains fully dependent for care. No discomfort / pain. . No new issues. Family updated from time to time. Feeling better on Bronchodilators. VSS. Mild hyponatremia being addressed by some fluid restriction. Plan: All treatment reviewed and continued.
[2025-02-06] MEDS: LOSARTAN 100 MG TABLET GT (20:11)
[2025-02-06] MEDS: SENNOSIDES 8.6 MG TABLET 17.2 MG GT (20:11)
[2025-02-07] VITALS (7 sets, daily range): BP systolic 124–146; BP diastolic 78–90; PULSE 62–101; RESP 16–20; TEMP 36–36.4; O2SAT 95–98
[2025-02-07] MEDS: SOD PHOS DI, MONO/K PHOS MONO 250 MG TABLET GT (09:25)
[2025-02-07] MEDS: MULTIVIT-MIN/IRON FUM/FOLIC AC 1 EACH TABLET GT (09:25)
[2025-02-07] MEDS: ESOMEPRAZOLE 40 MG GT (09:25)
[2025-02-07] MEDS: SODIUM CHLORIDE TAB 1,000 MG TABLET.SOL 1000 MG GT ×2 (09:25→20:14)
[2025-02-07] MEDS: LOSARTAN 100 MG TABLET GT (20:13)
[2025-02-07] MEDS: SENNOSIDES 8.6 MG TABLET 17.2 MG GT (20:14)
[2025-02-07] MEDS: MAGNESIUM HYDROXIDE 30 ML ORAL SUSP ML GT (20:15)
[2025-02-08] VITALS (7 sets, daily range): BP systolic 96–170; BP diastolic 62–97; PULSE 69–103; RESP 16–26; TEMP 36.3–36.4; O2SAT 95–97
[2025-02-08] MEDS: ESOMEPRAZOLE 40 MG GT (08:01)
[2025-02-08] MEDS: SOD PHOS DI, MONO/K PHOS MONO 250 MG TABLET GT (08:01)
[2025-02-08] MEDS: MULTIVIT-MIN/IRON FUM/FOLIC AC 1 EACH TABLET GT (08:02)
[2025-02-08] MEDS: SODIUM CHLORIDE TAB 1,000 MG TABLET.SOL 1000 MG GT ×2 (08:02→20:25)
[2025-02-08] MEDS: LOSARTAN 100 MG TABLET GT (20:25)
[2025-02-08] MEDS: SENNOSIDES 8.6 MG TABLET 17.2 MG GT (20:25)
[2025-02-08] MEDS: ACETAMINOPHEN 325 MG TABLET 650 MG GT (22:45)
[2025-02-08] MEDS: IPRATROPIUM BROMIDE 200 PUFF/INH INHALER INH (22:47)
[2025-02-09] VITALS (7 sets, daily range): BP systolic 95–152; BP diastolic 78–86; PULSE 63–90; RESP 17–24; TEMP 36.1–36.4; O2SAT 98–99
[2025-02-09] MEDS: SODIUM CHLORIDE TAB 1,000 MG TABLET.SOL 1000 MG GT ×2 (09:20→20:09)
[2025-02-09] MEDS: ESOMEPRAZOLE 40 MG GT (09:20)
[2025-02-09] MEDS: SOD PHOS DI, MONO/K PHOS MONO 250 MG TABLET GT (09:20)
[2025-02-09] MEDS: MULTIVIT-MIN/IRON FUM/FOLIC AC 1 EACH TABLET GT (09:20)
[2025-02-09] MEDS: ACETAMINOPHEN 325 MG TABLET 650 MG GT (09:21)
[2025-02-09] MEDS: LOSARTAN 100 MG TABLET GT (20:09)
[2025-02-09] MEDS: SENNOSIDES 8.6 MG TABLET 17.2 MG GT (20:09)
[2025-02-10] VITALS (7 sets, daily range): BP systolic 113–174; BP diastolic 78–96; PULSE 70–102; RESP 17–20; TEMP 36.1–36.5; O2SAT 97–98
[2025-02-10] MEDS: ESOMEPRAZOLE 40 MG GT (09:43)
[2025-02-10] MEDS: SOD PHOS DI, MONO/K PHOS MONO 250 MG TABLET GT (09:43)
[2025-02-10] MEDS: SODIUM CHLORIDE TAB 1,000 MG TABLET.SOL 1000 MG GT ×2 (09:44→20:29)
[2025-02-10] MEDS: MULTIVIT-MIN/IRON FUM/FOLIC AC 1 EACH TABLET GT (09:44)
[2025-02-10] MEDS: SENNOSIDES 8.6 MG TABLET 17.2 MG GT (20:30)
[2025-02-10] MEDS: LOSARTAN 100 MG TABLET GT (20:30)
--- NOTE | 2025-02-10 21:11 | ESPR_ITS ---
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 (2) Epilepsy, unspecified, not intractable, without status epilepticus: Status: Chronic (3) Essential (primary) hypertension: Status: Chronic (4) Tracheostomy status: Status: Chronic (5) Gastrostomy status: Status: Chronic (6) Chronic respiratory failure, unspecified whether with hypoxia or hypercapnia: Status: Chronic (7) Chronic hyponatremia: Status: Chronic SUBJECTIVE Fever:: none GI:: none Shortness of Breath:: none GI:: no complaints Pain:: none OBJECTIVE Most recent vital signs: Last Vital Signs Temp 96.9 F 02/10/25 17:18 Pulse 79 02/10/25 20:30 Resp 20 02/10/25 18:37 BP 174/96 H 02/10/25 20:30 Pulse Ox 97 02/10/25 18:37 O2 Del Method Blow-by 02/10/25 17:18 O2 Flow Rate 8 02/10/25 18:37 FiO2 30 02/10/25 18:37 Neurological:: alert Speech:: nods head, mouths words (sometimes) and appropriate Answers questions:: sometimes Respiratory:: shallow breathing Cardiovascular: RRR Abdomen: soft and nontender Extremities:: deformities Decubitus:: none Tracheostomy:: to blow by Feeding per:: G tube Complaints:: none ASSESSMENT & PLAN Assessment: 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 No pain issues, and remains comfortable. Ice chips for some oral gratification tried with success without any cough or aspiration and continued.Remains fully dependent for care. interacts some and mostly happy. Tendency for Hypo-natremia on labs being monitored and addressed. No clinical change. Electrolytes improved. monitored regularly. Observed to be having eye inflammation and samples taken and antibiotics initiated. Pt remains fully dependent for care. No discomfort / pain. . No new issues. Family updated from time to time. Feeling better on Bronchodilators. VSS. Mild hyponatremia being addressed by some fluid restriction. Plan: All treatment reviewed and continued.
[2025-02-11] VITALS (8 sets, daily range): BP systolic 116–172; BP diastolic 75–89; PULSE 62–94; RESP 17–18; TEMP 36.2; O2SAT 98–99
[2025-02-11] MEDS: ESOMEPRAZOLE 40 MG GT (08:00)
[2025-02-11] MEDS: SOD PHOS DI, MONO/K PHOS MONO 250 MG TABLET GT (08:00)
[2025-02-11] MEDS: SODIUM CHLORIDE TAB 1,000 MG TABLET.SOL 1000 MG GT ×2 (08:00→20:09)
[2025-02-11] MEDS: MULTIVIT-MIN/IRON FUM/FOLIC AC 1 EACH TABLET GT (08:00)
[2025-02-11] MEDS: SENNOSIDES 8.6 MG TABLET 17.2 MG GT (20:09)
[2025-02-11] MEDS: LOSARTAN 100 MG TABLET GT (20:09)
[2025-02-12] VITALS (7 sets, daily range): BP systolic 120–150; BP diastolic 84–86; PULSE 76–97; RESP 18–22; TEMP 35.9–36.4; O2SAT 97–99
[2025-02-12] MEDS: SOD PHOS DI, MONO/K PHOS MONO 250 MG TABLET GT (08:03)
[2025-02-12] MEDS: MULTIVIT-MIN/IRON FUM/FOLIC AC 1 EACH TABLET GT (08:03)
[2025-02-12] MEDS: ESOMEPRAZOLE 40 MG GT (08:03)
[2025-02-12] MEDS: SODIUM CHLORIDE TAB 1,000 MG TABLET.SOL 1000 MG GT ×2 (08:04→20:12)
[2025-02-12] MEDS: LOSARTAN 100 MG TABLET GT (20:12)
[2025-02-12] MEDS: SENNOSIDES 8.6 MG TABLET 17.2 MG GT (20:12)
[2025-02-13] VITALS (7 sets, daily range): BP systolic 121–139; BP diastolic 81–87; PULSE 74–93; RESP 17–20; TEMP 36.2–36.4; O2SAT 96
[2025-02-13 07:13] LABS: Alanine Aminotransferase 56 U/L (10-49); Albumin, Serum 4.0 gm/dL (3.4-4.8); Albumin/Globulin Ratio 1.0 (1.2-2.2); Alkaline Phosphatase 289 U/L (46-116); Anion Gap 7 (7-16); Aspartate Amino Transferase 36 U/L (0-34); BUN/Creatinine Ratio 30 Ratio (12-20); Bilirubin,Total 0.3 mg/dL (0.3-1.2); Blood Urea Nitrogen 9 mg/dL (9-23); Calcium 9.3 mg/dL (8.3-10.6); Calcium (Corrected) 9.3 mg/dL (8.5-10.1); Carbon Dioxide 29.0 mMol/L (20.0-31.0); Chloride 89 mMol/L (98-107); Creatinine (Component) 0.3 mg/dL (0.6-1.3); Estimated Creatinine Clearance 132.2 mL/min (>60); Globulin 4.2 gm/dL (2.3-3.5); Glucose 111 mg/dL (74-106); Osmolality,Calculated 251 (275-295); Potassium 4.1 mMol/L (3.4-5.1); Sodium 125 mMol/L (136-145); Total Protein 8.2 gm/dL (5.7-8.2); eGFR > 60 See Note
[2025-02-13] MEDS: ESOMEPRAZOLE 40 MG GT (08:00)
[2025-02-13] MEDS: SOD PHOS DI, MONO/K PHOS MONO 250 MG TABLET GT (08:01)
[2025-02-13] MEDS: MULTIVIT-MIN/IRON FUM/FOLIC AC 1 EACH TABLET GT (08:01)
[2025-02-13] MEDS: SODIUM CHLORIDE TAB 1,000 MG TABLET.SOL 1000 MG GT ×2 (08:01→20:11)
--- NOTE | 2025-02-13 11:29 | PC.NURSE ---
Reviewed Renal laboratory results with . Na+ to 125. New order given to start Fludrocortisone PGT daily, repeating labs. and if able start IV line and infuse 1L normal saline slowly. x 24 hours.Will carry out orders. Will notify family.
--- NOTE | 2025-02-13 11:34 | PC.NURSE ---
Resident remains with normal vital sing no s/s discomfort noted at this time.
[2025-02-13] MEDS: SODIUM CHLORIDE 0.9% 1,000 ML BAG 1000 ML IV (15:00)
--- NOTE | 2025-02-13 15:43 | PC.SS ---
Resident remains on blow by with trach in place and GT for medication and nutrition. She is awake unable to make needs known, her daughter Homa is her community relations representative. She does not have POA in place, Homa is aware this service is provide in house but is unable to participate due to absence of speech and cognitive impairment. Resident will remain in current care as she has no changes in care or condition, she will continue to have all subacute care needs met by staff. This SSD will continue to make daily contact with resident and will monitor for changes in mood and behavior.
--- NOTE | 2025-02-13 16:04 | PC.NURSE ---
Initiated NS infusion at 1500. Daughter Homa notified.
[2025-02-13] MEDS: FLUDROCORTISONE ACETATE 0.1 MG TABLET GT (20:10)
[2025-02-13] MEDS: LOSARTAN 100 MG TABLET GT (20:10)
[2025-02-13] MEDS: SENNOSIDES 8.6 MG TABLET 17.2 MG GT (20:11)
[2025-02-14] VITALS (9 sets, daily range): BP systolic 124–158; BP diastolic 79–90; PULSE 67–88; RESP 16–23; TEMP 36.2–36.6; O2SAT 96–99
[2025-02-14] MEDS: ESOMEPRAZOLE 40 MG GT (08:13)
[2025-02-14] MEDS: MULTIVIT-MIN/IRON FUM/FOLIC AC 1 EACH TABLET GT (08:14)
[2025-02-14] MEDS: SOD PHOS DI, MONO/K PHOS MONO 250 MG TABLET GT (08:14)
[2025-02-14] MEDS: SODIUM CHLORIDE TAB 1,000 MG TABLET.SOL 1000 MG GT ×2 (08:19→20:18)
[2025-02-14 17:29] LABS: Albumin, Serum 3.5 gm/dL (3.4-4.8); Anion Gap 9 (7-16); BUN/Creatinine Ratio 20 Ratio (12-20); Blood Urea Nitrogen 8 mg/dL (9-23); Calcium 9.3 mg/dL (8.3-10.6); Calcium (Corrected) 9.7 mg/dL (8.5-10.1); Carbon Dioxide 27.3 mMol/L (20.0-31.0); Chloride 94 mMol/L (98-107); Creatinine (Component) 0.4 mg/dL (0.6-1.3); Estimated Creatinine Clearance 99.2 mL/min (>60); Glucose 134 mg/dL (74-106); Osmolality,Calculated 261 (275-295); Phosphorous 3.7 mg/dL (2.4-5.1); Potassium 4.1 mMol/L (3.4-5.1); Sodium 130 mMol/L (136-145); eGFR > 60 See Note
[2025-02-14] MEDS: LOSARTAN 100 MG TABLET GT (20:18)
[2025-02-14] MEDS: SENNOSIDES 8.6 MG TABLET 17.2 MG GT (20:18)
[2025-02-14] MEDS: FLUDROCORTISONE ACETATE 0.1 MG TABLET GT (20:22)
--- NOTE | 2025-02-14 21:49 | PD.SAPROG ---
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 (2) Epilepsy, unspecified, not intractable, without status epilepticus: Status: Chronic (3) Essential (primary) hypertension: Status: Chronic (4) Tracheostomy status: Status: Chronic (5) Gastrostomy status: Status: Chronic (6) Chronic respiratory failure, unspecified whether with hypoxia or hypercapnia: Status: Chronic (7) Chronic hyponatremia: Status: Chronic SUBJECTIVE Fever:: none GI:: none Shortness of Breath:: none GI:: no complaints Pain:: none OBJECTIVE Most recent vital signs: Last Vital Signs Temp 97.1 F 02/14/25 18:00 Pulse 82 02/14/25 20:18 Resp 22 H 02/14/25 18:00 BP 158/90 H 02/14/25 20:18 Pulse Ox 99 02/14/25 18:00 O2 Del Method Blow-by 02/14/25 06:00 O2 Flow Rate 6 02/14/25 11:42 FiO2 30 02/14/25 11:42 Neurological:: alert Speech:: nods head, mouths words (sometimes) and appropriate Answers questions:: sometimes Respiratory:: shallow breathing Cardiovascular: RRR Abdomen: soft and nontender Extremities:: deformities Decubitus:: none Tracheostomy:: to blow by Feeding per:: G tube Complaints:: none ASSESSMENT & PLAN Assessment: 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 No pain issues, and remains comfortable. Ice chips for some oral gratification tried with success without any cough or aspiration and continued.Remains fully dependent for care. interacts some and mostly happy. Tendency for Hypo-natremia on labs being monitored and addressed. No clinical change. Electrolytes improved. monitored regularly. Observed to be having eye inflammation and samples taken and antibiotics initiated. Pt remains fully dependent for care. No discomfort / pain. . No new issues. Family updated from time to time. Feeling better on Bronchodilators. VSS. Mild hyponatremia being addressed by some fluid restriction. Serum Na at 130 meq/dl today which is better. Started on Fludrocortisone 0.1mgs daily and will monitor labs Plan: All treatment reviewed and continued.
[2025-02-15] VITALS (7 sets, daily range): BP systolic 133–161; BP diastolic 83–88; PULSE 62–98; RESP 18–24; TEMP 36.2–36.4; O2SAT 98–99
[2025-02-15] MEDS: MULTIVIT-MIN/IRON FUM/FOLIC AC 1 EACH TABLET GT (07:54)
[2025-02-15] MEDS: ESOMEPRAZOLE 40 MG GT (07:54)
[2025-02-15] MEDS: SODIUM CHLORIDE TAB 1,000 MG TABLET.SOL 1000 MG GT ×2 (07:54→20:13)
[2025-02-15] MEDS: SOD PHOS DI, MONO/K PHOS MONO 250 MG TABLET GT (07:54)
[2025-02-15] MEDS: FLUDROCORTISONE ACETATE 0.1 MG TABLET GT (20:13)
[2025-02-15] MEDS: SENNOSIDES 8.6 MG TABLET 17.2 MG GT (20:13)
[2025-02-15] MEDS: LOSARTAN 100 MG TABLET GT (20:13)
[2025-02-16] VITALS (7 sets, daily range): BP systolic 134–167; BP diastolic 82–85; PULSE 85–96; RESP 18–24; TEMP 36.1–36.5; O2SAT 96–98
--- NOTE | 2025-02-16 04:24 | PC.NURSE ---
IV TO RIGHT WRIST REMOVED. SITE WITH REDNESS AND SLIGHT SWELLING. IV CATHETER INTACT. NO BLEEDING.
[2025-02-16] MEDS: SODIUM CHLORIDE TAB 1,000 MG TABLET.SOL 1000 MG GT ×2 (08:06→20:11)
[2025-02-16] MEDS: MULTIVIT-MIN/IRON FUM/FOLIC AC 1 EACH TABLET GT (08:06)
[2025-02-16] MEDS: ESOMEPRAZOLE 40 MG GT (08:06)
[2025-02-16] MEDS: SOD PHOS DI, MONO/K PHOS MONO 250 MG TABLET GT (08:06)
[2025-02-16 09:39] LABS: Alanine Aminotransferase 44 U/L (10-49); Albumin, Serum 3.8 gm/dL (3.4-4.8); Albumin/Globulin Ratio 1.1 (1.2-2.2); Alkaline Phosphatase 258 U/L (46-116); Anion Gap 11 (7-16); Aspartate Amino Transferase 30 U/L (0-34); BUN/Creatinine Ratio 20 Ratio (12-20); Bilirubin,Total < 0.2 mg/dL (0.3-1.2); Blood Urea Nitrogen 8 mg/dL (9-23); Calcium 9.6 mg/dL (8.3-10.6); Calcium (Corrected) 9.8 mg/dL (8.5-10.1); Carbon Dioxide 26.2 mMol/L (20.0-31.0); Chloride 94 mMol/L (98-107); Creatinine (Component) 0.4 mg/dL (0.6-1.3); Estimated Creatinine Clearance 99.2 mL/min (>60); Globulin 3.4 gm/dL (2.3-3.5); Glucose 155 mg/dL (74-106); Osmolality,Calculated 263 (275-295); Potassium 3.8 mMol/L (3.4-5.1); Sodium 131 mMol/L (136-145); Total Protein 7.2 gm/dL (5.7-8.2); eGFR > 60 See Note
[2025-02-16] MEDS: FLUDROCORTISONE ACETATE 0.1 MG TABLET GT (20:11)
[2025-02-16] MEDS: SENNOSIDES 8.6 MG TABLET 17.2 MG GT (20:11)
[2025-02-16] MEDS: LOSARTAN 100 MG TABLET GT (20:11)
[2025-02-17] VITALS (8 sets, daily range): BP systolic 129–150; BP diastolic 80–91; PULSE 76–108; RESP 18–20; TEMP 36.1–36.7; O2SAT 95–97
[2025-02-17] MEDS: ESOMEPRAZOLE 40 MG GT (09:35)
[2025-02-17] MEDS: MULTIVITAMIN W MINERALS 1 EACH TABLET GT (09:36)
[2025-02-17] MEDS: SOD PHOS DI, MONO/K PHOS MONO 250 MG TABLET GT (09:36)
[2025-02-17] MEDS: SODIUM CHLORIDE TAB 1,000 MG TABLET.SOL 1000 MG GT ×2 (09:37→20:13)
[2025-02-17] MEDS: ACETAMINOPHEN 325 MG TABLET 650 MG GT (09:37)
--- NOTE | 2025-02-17 15:50 | PC.NURSE ---
Order received from Dr Gonsalez to do lab on 02/22/25 to follow up resident's sodium level.
[2025-02-17] MEDS: FLUDROCORTISONE ACETATE 0.1 MG TABLET GT (20:12)
[2025-02-17] MEDS: LOSARTAN 100 MG TABLET GT (20:12)
[2025-02-17] MEDS: SENNOSIDES 8.6 MG TABLET 17.2 MG GT (20:13)
[2025-02-18 05:45] VITALS: BP 143/96; PULSE 90; RESP 20; TEMP 36.4; O2SAT 97
[2025-02-18 06:46] VITALS: PULSE 85; RESP 19; O2SAT 95
[2025-02-18] MEDS: SODIUM CHLORIDE TAB 1,000 MG TABLET.SOL 1000 MG GT ×2 (08:13→20:33)
[2025-02-18] MEDS: MULTIVITAMIN W MINERALS 1 EACH TABLET GT (08:13)
[2025-02-18] MEDS: ESOMEPRAZOLE 40 MG GT (08:13)
[2025-02-18] MEDS: SOD PHOS DI, MONO/K PHOS MONO 250 MG TABLET GT (08:13)
[2025-02-18 12:00] VITALS: BP 146/86; PULSE 90; RESP 20; TEMP 36.6
[2025-02-18 17:18] VITALS: BP 120/64; PULSE 80; RESP 18; TEMP 36.4; O2SAT 96
[2025-02-18 20:33] VITALS: BP 182/93; PULSE 84
[2025-02-18] MEDS: SENNOSIDES 8.6 MG TABLET 17.2 MG GT (20:33)
[2025-02-18] MEDS: LOSARTAN 100 MG TABLET GT (20:33)
[2025-02-18] MEDS: FLUDROCORTISONE ACETATE 0.1 MG TABLET GT (20:34)
[2025-02-18 21:01] VITALS: PULSE 89; RESP 20; O2SAT 96
--- NOTE | 2025-02-18 22:49 | PD.SAPROG ---
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 (2) Epilepsy, unspecified, not intractable, without status epilepticus: Status: Chronic (3) Essential (primary) hypertension: Status: Chronic (4) Tracheostomy status: Status: Chronic (5) Gastrostomy status: Status: Chronic (6) Chronic respiratory failure, unspecified whether with hypoxia or hypercapnia: Status: Chronic (7) Chronic hyponatremia: Status: Chronic SUBJECTIVE Fever:: none GI:: none Shortness of Breath:: none GI:: no complaints Pain:: none OBJECTIVE Most recent vital signs: Last Vital Signs Temp 97.6 F 02/18/25 17:18 Pulse 89 02/18/25 21:01 Resp 20 02/18/25 21:01 BP 182/93 H 02/18/25 20:33 Pulse Ox 96 02/18/25 21:01 O2 Del Method Blow-by 02/18/25 17:18 O2 Flow Rate 6 02/18/25 21:01 FiO2 28 02/18/25 21:01 Neurological:: alert Speech:: nods head, mouths words (sometimes) and appropriate Answers questions:: sometimes Respiratory:: shallow breathing Cardiovascular: RRR Abdomen: soft and nontender Extremities:: deformities Decubitus:: none Tracheostomy:: to blow by Feeding per:: G tube Complaints:: none ASSESSMENT & PLAN Assessment: 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 No pain issues, and remains comfortable. Ice chips for some oral gratification tried with success without any cough or aspiration and continued.Remains fully dependent for care. interacts some and mostly happy. Tendency for Hypo-natremia on labs being monitored and addressed. No clinical change. Electrolytes improved. monitored regularly. Observed to be having eye inflammation and samples taken and antibiotics initiated. Pt remains fully dependent for care. No discomfort / pain. . No new issues. Family updated from time to time. Feeling better on Bronchodilators. VSS. Mild hyponatremia being addressed by some fluid restriction. Serum Na at 130 meq/dl today which is better. Started on Fludrocortisone 0.1mgs daily and will monitor labs. Hyponatremia improving already. VSS Plan: All treatment reviewed and continued.
[2025-02-19] VITALS (8 sets, daily range): BP systolic 131–163; BP diastolic 86–96; PULSE 80–92; RESP 20–24; TEMP 36.1–36.6; O2SAT 95–99
[2025-02-19] MEDS: ESOMEPRAZOLE 40 MG GT (08:28)
[2025-02-19] MEDS: SODIUM CHLORIDE TAB 1,000 MG TABLET.SOL 1000 MG GT ×2 (08:28→20:54)
[2025-02-19] MEDS: MULTIVITAMIN W MINERALS 1 EACH TABLET GT (08:28)
[2025-02-19] MEDS: SOD PHOS DI, MONO/K PHOS MONO 250 MG TABLET GT (08:28)
--- NOTE | 2025-02-19 10:04 | PC.SS ---
Resident remains in current care on blow by with trach in place and GT for medication and nutrition. Resident is unable to make needs known, his daughter is his decision maker. Resident does not have POA in place nor is she able to participate in this process. Resident will continue to have all subacute care needs met by staff and will continue to have daily room visits.
[2025-02-19] MEDS: LOSARTAN 100 MG TABLET GT (20:54)
[2025-02-19] MEDS: SENNOSIDES 8.6 MG TABLET 17.2 MG GT (20:54)
[2025-02-19] MEDS: FLUDROCORTISONE ACETATE 0.1 MG TABLET GT (20:54)
[2025-02-20 05:40] VITALS: BP 134/79; PULSE 88; RESP 22; TEMP 36.7; O2SAT 98
[2025-02-20 07:13] VITALS: PULSE 89; RESP 20; O2SAT 99
[2025-02-20] MEDS: ESOMEPRAZOLE 40 MG GT (09:28)
[2025-02-20] MEDS: SOD PHOS DI, MONO/K PHOS MONO 250 MG TABLET GT (09:29)
[2025-02-20] MEDS: MULTIVITAMIN W MINERALS 1 EACH TABLET GT (09:29)
[2025-02-20] MEDS: SODIUM CHLORIDE TAB 1,000 MG TABLET.SOL 1000 MG GT ×2 (09:29→20:34)
[2025-02-20 12:00] VITALS: BP 141/97; PULSE 100; RESP 19; TEMP 36.4
[2025-02-20 17:31] VITALS: PULSE 78; RESP 20; O2SAT 97; O2SAT 98
[2025-02-20 17:58] VITALS: BP 149/89; PULSE 72; RESP 19; TEMP 36.3; O2SAT 98
[2025-02-20 20:34] VITALS: BP 164/88; PULSE 98
[2025-02-20] MEDS: LOSARTAN 100 MG TABLET GT (20:34)
[2025-02-20] MEDS: SENNOSIDES 8.6 MG TABLET 17.2 MG GT (20:34)
[2025-02-20] MEDS: FLUDROCORTISONE ACETATE 0.1 MG TABLET GT (20:34)
[2025-02-21] VITALS (7 sets, daily range): BP systolic 108–153; BP diastolic 70–83; PULSE 72–106; RESP 18–26; TEMP 36.2–36.4; O2SAT 95–98
[2025-02-21] MEDS: IPRATROPIUM BROMIDE 200 PUFF/INH INHALER INH (07:21)
[2025-02-21] MEDS: ESOMEPRAZOLE 40 MG GT (08:04)
[2025-02-21] MEDS: SOD PHOS DI, MONO/K PHOS MONO 250 MG TABLET GT (08:04)
[2025-02-21] MEDS: MULTIVITAMIN W MINERALS 1 EACH TABLET GT (08:04)
[2025-02-21] MEDS: SODIUM CHLORIDE TAB 1,000 MG TABLET.SOL 1000 MG GT ×2 (08:04→20:11)
[2025-02-21] MEDS: LOSARTAN 100 MG TABLET GT (20:11)
[2025-02-21] MEDS: SENNOSIDES 8.6 MG TABLET 17.2 MG GT (20:11)
[2025-02-21] MEDS: FLUDROCORTISONE ACETATE 0.1 MG TABLET GT (20:11)
[2025-02-22] VITALS (8 sets, daily range): BP systolic 114–159; BP diastolic 74–82; PULSE 85–99; RESP 17–24; TEMP 36.3–37.5; O2SAT 95–98
[2025-02-22] MEDS: ESOMEPRAZOLE 40 MG GT (07:54)
[2025-02-22] MEDS: SOD PHOS DI, MONO/K PHOS MONO 250 MG TABLET GT (07:55)
[2025-02-22] MEDS: MULTIVITAMIN W MINERALS 1 EACH TABLET GT (07:56)
[2025-02-22] MEDS: SODIUM CHLORIDE TAB 1,000 MG TABLET.SOL 1000 MG GT ×2 (07:56→20:58)
[2025-02-22 08:11] LABS: Alanine Aminotransferase 28 U/L (10-49); Albumin, Serum 3.8 gm/dL (3.4-4.8); Albumin/Globulin Ratio 1.1 (1.2-2.2); Alkaline Phosphatase 226 U/L (46-116); Anion Gap 10 (7-16); Aspartate Amino Transferase 19 U/L (0-34); BUN/Creatinine Ratio 25 Ratio (12-20); Bilirubin,Total 0.2 mg/dL (0.3-1.2); Blood Urea Nitrogen 10 mg/dL (9-23); Calcium 9.7 mg/dL (8.3-10.6); Calcium (Corrected) 9.9 mg/dL (8.5-10.1); Carbon Dioxide 28.7 mMol/L (20.0-31.0); Chloride 94 mMol/L (98-107); Creatinine (Component) 0.4 mg/dL (0.6-1.3); Estimated Creatinine Clearance 99.2 mL/min (>60); Globulin 3.5 gm/dL (2.3-3.5); Glucose 121 mg/dL (74-106); Osmolality,Calculated 266 (275-295); Potassium 3.9 mMol/L (3.4-5.1); Sodium 133 mMol/L (136-145); Total Protein 7.3 gm/dL (5.7-8.2); eGFR > 60 See Note
--- NOTE | 2025-02-22 18:15 | ESPR_ITS ---
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 (2) Epilepsy, unspecified, not intractable, without status epilepticus: Status: Chronic (3) Essential (primary) hypertension: Status: Chronic (4) Tracheostomy status: Status: Chronic (5) Gastrostomy status: Status: Chronic (6) Chronic respiratory failure, unspecified whether with hypoxia or hypercapnia: Status: Chronic (7) Chronic hyponatremia: Status: Chronic SUBJECTIVE Fever:: none GI:: none Shortness of Breath:: none GI:: no complaints Pain:: none OBJECTIVE Most recent vital signs: Last Vital Signs Temp 98.3 F 02/22/25 17:56 Pulse 99 02/22/25 17:56 Resp 18 02/22/25 17:56 BP 159/81 H 02/22/25 17:56 Pulse Ox 97 02/22/25 17:56 O2 Del Method Blow-by 02/22/25 17:56 O2 Flow Rate 6 02/22/25 12:55 FiO2 28 02/22/25 12:55 Neurological:: alert Speech:: nods head, mouths words (sometimes) and appropriate Answers questions:: sometimes Respiratory:: shallow breathing Cardiovascular: RRR Abdomen: soft and nontender Extremities:: deformities Decubitus:: none Tracheostomy:: to blow by Feeding per:: G tube Complaints:: none ASSESSMENT & PLAN Assessment: 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 No pain issues, and remains comfortable. Ice chips for some oral gratification tried with success without any cough or aspiration and continued.Remains fully dependent for care. interacts some and mostly happy. Tendency for Hypo-natremia on labs being monitored and addressed. No clinical change. Electrolytes improved. monitored regularly. Observed to be having eye inflammation and samples taken and antibiotics initiated. Pt remains fully dependent for care. No discomfort / pain. . No new issues. Family updated from time to time. Feeling better on Bronchodilators. VSS. Mild hyponatremia being addressed by some fluid restriction. Serum Na at 130 meq/dl today which is better. Started on Fludrocortisone 0.1mgs daily and will monitor labs. Hyponatremia improving already. VSS Serum sodium stabilizing on Fludrocortisone much better. Plan: All treatment reviewed and continued.
--- NOTE | 2025-02-22 18:17 | PC.NURSE ---
Review lab results for Na+ 133 .with MD order to continue Fludrocortisone with no re-eval day. Carried out order. Resident remains stable.
[2025-02-22] MEDS: FLUDROCORTISONE ACETATE 0.1 MG TABLET GT (20:56)
[2025-02-22] MEDS: LOSARTAN 100 MG TABLET GT (20:57)
[2025-02-22] MEDS: SENNOSIDES 8.6 MG TABLET 17.2 MG GT (20:57)
[2025-02-23 06:00] VITALS: BP 122/82; PULSE 84; RESP 22; TEMP 36.7; O2SAT 98
[2025-02-23 06:46] VITALS: PULSE 86; RESP 18; RESP 19; O2SAT 98
[2025-02-23] MEDS: SODIUM CHLORIDE TAB 1,000 MG TABLET.SOL 1000 MG GT ×2 (08:56→21:17)
[2025-02-23] MEDS: MULTIVITAMIN W MINERALS 1 EACH TABLET GT (08:56)
[2025-02-23] MEDS: SOD PHOS DI, MONO/K PHOS MONO 250 MG TABLET GT (08:56)
[2025-02-23] MEDS: ESOMEPRAZOLE 40 MG GT (08:56)
[2025-02-23 19:03] VITALS: PULSE 91; RESP 18; RESP 19; O2SAT 98
[2025-02-23 21:16] VITALS: BP 156/88; PULSE 98
[2025-02-23] MEDS: LOSARTAN 100 MG TABLET GT (21:16)
[2025-02-23] MEDS: FLUDROCORTISONE ACETATE 0.1 MG TABLET GT (21:16)
[2025-02-23] MEDS: SENNOSIDES 8.6 MG TABLET 17.2 MG GT (21:17)
[2025-02-24] VITALS: BP 156/99; PULSE 108; RESP 24; TEMP 36.8
[2025-02-24 07:58] VITALS: PULSE 76; RESP 18; O2SAT 100
[2025-02-24] MEDS: SOD PHOS DI, MONO/K PHOS MONO 250 MG TABLET GT (08:00)
[2025-02-24] MEDS: ESOMEPRAZOLE 40 MG GT (08:00)
[2025-02-24] MEDS: SODIUM CHLORIDE TAB 1,000 MG TABLET.SOL 1000 MG GT ×2 (08:00→20:13)
[2025-02-24] MEDS: MULTIVITAMIN W MINERALS 1 EACH TABLET GT (08:00)
[2025-02-24 11:29] VITALS: BP 156/89; PULSE 89; RESP 21; TEMP 36.5
[2025-02-24 17:33] VITALS: BP 163/80; PULSE 80; RESP 22; TEMP 36.4; O2SAT 97
[2025-02-24 19:26] VITALS: PULSE 89; RESP 18; O2SAT 99
[2025-02-24 20:12] VITALS: BP 150/85; PULSE 81
[2025-02-24] MEDS: LOSARTAN 100 MG TABLET GT (20:12)
[2025-02-24] MEDS: SENNOSIDES 8.6 MG TABLET 17.2 MG GT (20:12)
[2025-02-24] MEDS: FLUDROCORTISONE ACETATE 0.1 MG TABLET GT (20:12)
[2025-02-25] VITALS (7 sets, daily range): BP systolic 105–161; BP diastolic 66–89; PULSE 58–107; RESP 16–22; TEMP 36.1–36.4; O2SAT 95–98
[2025-02-25] MEDS: SOD PHOS DI, MONO/K PHOS MONO 250 MG TABLET GT (08:09)
[2025-02-25] MEDS: SODIUM CHLORIDE TAB 1,000 MG TABLET.SOL 1000 MG GT ×2 (08:09→20:13)
[2025-02-25] MEDS: ESOMEPRAZOLE 40 MG GT (08:09)
[2025-02-25] MEDS: MULTIVITAMIN W MINERALS 1 EACH TABLET GT (08:09)
[2025-02-25] MEDS: ACETAMINOPHEN 325 MG TABLET 650 MG GT (11:39)
[2025-02-25] MEDS: LOSARTAN 100 MG TABLET GT (20:12)
[2025-02-25] MEDS: FLUDROCORTISONE ACETATE 0.1 MG TABLET GT (20:12)
[2025-02-25] MEDS: SENNOSIDES 8.6 MG TABLET 17.2 MG GT (20:13)
[2025-02-26] VITALS (7 sets, daily range): BP systolic 128–137; BP diastolic 77–87; PULSE 60–94; RESP 18–20; TEMP 36.1–36.6; O2SAT 97–99
[2025-02-26] MEDS: MULTIVITAMIN W MINERALS 1 EACH TABLET GT (08:02)
[2025-02-26] MEDS: SODIUM CHLORIDE TAB 1,000 MG TABLET.SOL 1000 MG GT ×2 (08:02→20:35)
[2025-02-26] MEDS: ESOMEPRAZOLE 40 MG GT (08:02)
[2025-02-26] MEDS: SOD PHOS DI, MONO/K PHOS MONO 250 MG TABLET GT (08:02)
--- NOTE | 2025-02-26 12:27 | PC.SS ---
Resident remains on blow by with trach in place and GT for medication and nutrition. She is unable to make needs known, her daughter Homa is her decision maker. Resident does not have POA in place as she is unable to participate in this process. Resident will remain in current care and will continue to have all subacute care needs met by staff.
[2025-02-26] MEDS: ACETAMINOPHEN 325 MG TABLET 650 MG GT ×2 (14:16→20:35)
[2025-02-26] MEDS: FLUDROCORTISONE ACETATE 0.1 MG TABLET GT (20:22)
[2025-02-26] MEDS: SENNOSIDES 8.6 MG TABLET 17.2 MG GT (20:34)
[2025-02-26] MEDS: LOSARTAN 100 MG TABLET GT (20:34)
--- NOTE | 2025-02-26 22:08 | ESPR_ITS ---
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 (2) Epilepsy, unspecified, not intractable, without status epilepticus: Status: Chronic (3) Essential (primary) hypertension: Status: Chronic (4) Tracheostomy status: Status: Chronic (5) Gastrostomy status: Status: Chronic (6) Chronic respiratory failure, unspecified whether with hypoxia or hypercapnia: Status: Chronic (7) Chronic hyponatremia: Status: Chronic SUBJECTIVE Fever:: none GI:: none Shortness of Breath:: none GI:: no complaints Pain:: none OBJECTIVE Most recent vital signs: Last Vital Signs Temp 97.0 F 02/26/25 16:31 Pulse 93 02/26/25 20:34 Resp 18 02/26/25 16:31 BP 132/87 H 02/26/25 20:34 Pulse Ox 97 02/26/25 16:31 O2 Del Method Blow-by 02/26/25 16:31 O2 Flow Rate 6 02/26/25 16:31 FiO2 28 02/26/25 16:31 Neurological:: alert Speech:: nods head, mouths words (sometimes) and appropriate Answers questions:: sometimes Respiratory:: shallow breathing Cardiovascular: RRR Abdomen: soft and nontender Extremities:: deformities Decubitus:: none Tracheostomy:: to blow by Feeding per:: G tube Complaints:: none ASSESSMENT & PLAN Assessment: 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 No pain issues, and remains comfortable. Ice chips for some oral gratification tried with success without any cough or aspiration and continued.Remains fully dependent for care. interacts some and mostly happy. Tendency for Hypo-natremia on labs being monitored and addressed. No clinical change. Electrolytes improved. monitored regularly. Observed to be having eye inflammation and samples taken and antibiotics initiated. Pt remains fully dependent for care. No discomfort / pain. . No new issues. Family updated from time to time. Feeling better on Bronchodilators. VSS. Mild hyponatremia being addressed by some fluid restriction. Serum Na at 130 meq/dl today which is better. Started on Fludrocortisone 0.1mgs daily and will monitor labs. Hyponatremia improving already. VSS Serum sodium stabilizing on Fludrocortisone much better. Plan: All treatment reviewed and continued.
[2025-02-27] VITALS: BP 129/84; PULSE 85; RESP 17; TEMP 36.5
[2025-02-27 05:35] VITALS: PULSE 62; PULSE 67; RESP 18; O2SAT 96; O2SAT 98
[2025-02-27 06:00] VITALS: BP 118/80; PULSE 84; RESP 16; TEMP 36.6; O2SAT 97
[2025-02-27] MEDS: SOD PHOS DI, MONO/K PHOS MONO 250 MG TABLET GT (08:00)
[2025-02-27] MEDS: SODIUM CHLORIDE TAB 1,000 MG TABLET.SOL 1000 MG GT (08:00)
[2025-02-27] MEDS: MULTIVITAMIN W MINERALS 1 EACH TABLET GT (08:00)
[2025-02-27] MEDS: ESOMEPRAZOLE 40 MG GT (08:00)
[2025-02-27 18:00] VITALS: BP 127/84; PULSE 96; RESP 21; TEMP 36.4; O2SAT 94
[2025-02-27 20:19] VITALS: BP 164/90; PULSE 92
[2025-02-27] MEDS: LOSARTAN 100 MG TABLET GT (20:19)
[2025-02-27] MEDS: FLUDROCORTISONE ACETATE 0.1 MG TABLET GT (20:19)
[2025-02-27] MEDS: ACETAMINOPHEN 325 MG TABLET 650 MG GT (20:20)
[2025-02-27] MEDS: SENNOSIDES 8.6 MG TABLET 17.2 MG GT (20:20)
[2025-02-27 21:20] VITALS: PULSE 65; RESP 18; O2SAT 98
[2025-02-28] VITALS (8 sets, daily range): BP systolic 103–161; BP diastolic 69–97; PULSE 61–87; RESP 18–20; TEMP 36.1–36.2; O2SAT 95–97
[2025-02-28 06:21] LABS: Basophils # (Auto) 0.0 Thou/mm3 (0.0-0.2); Basophils % (Auto) 1 % (0-2.5); Eosinophils # (Auto) 0.1 Thou/mm3 (0.0-0.5); Eosinophils % (Auto) 2 % (0-10); Hematocrit 36.3 % (36.0-46.0); Hemoglobin 11.7 g/dL (12.0-16.0); Immature Granulocytes Auto 0.01 Thou/mm3 (0.00-0.00); Lymphocytes # (Auto) 1.7 Thou/mm3 (1.0-4.8); Lymphocytes % (Auto) 24 % (10-50); Mean Corpuscular HGB Conc 32.2 g/dl (31.0-37.0); Mean Corpuscular Hemoglobin 26.7 pg (25.0-35.0); Mean Corpuscular Volume 83 fL (80-100); Monocytes # (Auto) 0.6 Thou/mm3 (0.0-0.8); Monocytes % (Auto) 9 % (0-12); Neutrophils # (Auto) 4.6 Thou/mm3 (1.8-7.7); Neutrophils % (Auto) 65 % (37-80); Nucleated Red Blood Cell # 0.00 Thou/mm3 (0.00-0.00); Nucleated Red Blood Cell % 0 /100 WBC (0); Platelet Count 325 Thou/mm3 (140-440); RDW Standard Deviation 40.5 fL (36.4-46.3); Red Blood Count 4.39 Miln/mm3 (4.00-5.20); White Blood Count 7.0 Thou/mm3 (3.6-11.0)
[2025-02-28] MEDS: SODIUM CHLORIDE TAB 1,000 MG TABLET.SOL 1000 MG GT ×2 (08:10→20:35)
[2025-02-28] MEDS: MULTIVITAMIN W MINERALS 1 EACH TABLET GT (08:11)
[2025-02-28] MEDS: SOD PHOS DI, MONO/K PHOS MONO 250 MG TABLET GT (08:11)
[2025-02-28] MEDS: ACETAMINOPHEN 325 MG TABLET 650 MG GT (08:11)
[2025-02-28] MEDS: ESOMEPRAZOLE 40 MG GT (08:11)
[2025-02-28] MEDS: MAGNESIUM HYDROXIDE 30 ML ORAL SUSP ML GT (08:11)
[2025-02-28 08:24] LABS: Alanine Aminotransferase 34 U/L (10-49); Albumin, Serum 3.7 gm/dL (3.4-4.8); Albumin/Globulin Ratio 1.2 (1.2-2.2); Alkaline Phosphatase 233 U/L (46-116); Anion Gap 10 (7-16); Aspartate Amino Transferase 39 U/L (0-34); BUN/Creatinine Ratio 47 Ratio (12-20); Bilirubin,Total 0.2 mg/dL (0.3-1.2); Blood Urea Nitrogen 14 mg/dL (9-23); Calcium 9.2 mg/dL (8.3-10.6); Calcium (Corrected) 9.4 mg/dL (8.5-10.1); Carbon Dioxide 29.5 mMol/L (20.0-31.0); Chloride 96 mMol/L (98-107); Creatinine (Component) 0.3 mg/dL (0.6-1.3); Estimated Creatinine Clearance 132.2 mL/min (>60); Globulin 3.2 gm/dL (2.3-3.5); Glucose 107 mg/dL (74-106); Osmolality,Calculated 270 (275-295); Potassium 4.2 mMol/L (3.4-5.1); Sodium 135 mMol/L (136-145); Total Protein 6.9 gm/dL (5.7-8.2); eGFR > 60 See Note
--- NOTE | 2025-02-28 13:00 | PD.SAPROG ---
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 (2) Epilepsy, unspecified, not intractable, without status epilepticus: Status: Chronic (3) Essential (primary) hypertension: Status: Chronic (4) Tracheostomy status: Status: Chronic (5) Gastrostomy status: Status: Chronic (6) Chronic respiratory failure, unspecified whether with hypoxia or hypercapnia: Status: Chronic (7) Chronic hyponatremia: Status: Chronic SUBJECTIVE Fever:: none GI:: none Shortness of Breath:: none GI:: no complaints Pain:: none OBJECTIVE Most recent vital signs: Last Vital Signs Temp 97.1 F 02/28/25 12:00 Pulse 79 02/28/25 12:00 Resp 18 02/28/25 12:00 BP 103/69 02/28/25 12:00 Pulse Ox 97 02/28/25 06:00 O2 Del Method Blow-by 02/28/25 06:00 O2 Flow Rate 6 02/28/25 04:45 FiO2 28 02/28/25 04:45 Neurological:: alert Speech:: nods head, mouths words (sometimes) and appropriate Answers questions:: sometimes Respiratory:: shallow breathing Cardiovascular: RRR Abdomen: soft and nontender Extremities:: deformities Decubitus:: none Tracheostomy:: to blow by Feeding per:: G tube Complaints:: none ASSESSMENT & PLAN Assessment: 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 No pain issues, and remains comfortable. Ice chips for some oral gratification tried with success without any cough or aspiration and continued.Remains fully dependent for care. interacts some and mostly happy. Tendency for Hypo-natremia on labs being monitored and addressed. No clinical change. Electrolytes improved. monitored regularly. Observed to be having eye inflammation and samples taken and antibiotics initiated. Pt remains fully dependent for care. No discomfort / pain. . No new issues. Family updated from time to time. Feeling better on Bronchodilators. VSS. Mild hyponatremia being addressed by some fluid restriction. Serum Na at 130 meq/dl today which is better. Started on Fludrocortisone 0.1mgs daily and will monitor labs. Hyponatremia improving already. VSS Serum sodium stabilizing on Fludrocortisone much better. Close monitoring with labs Plan: All treatment reviewed and continued.
[2025-02-28] MEDS: FLUDROCORTISONE ACETATE 0.1 MG TABLET GT (20:35)
[2025-02-28] MEDS: LOSARTAN 100 MG TABLET GT (20:36)
[2025-02-28] MEDS: SENNOSIDES 8.6 MG TABLET 17.2 MG GT (20:36)
[2025-03-01] VITALS (7 sets, daily range): BP systolic 108–151; BP diastolic 70–82; PULSE 72–114; RESP 20–22; TEMP 36.2–37; O2SAT 96–99
[2025-03-01] MEDS: SODIUM CHLORIDE TAB 1,000 MG TABLET.SOL 1000 MG GT ×2 (08:06→20:36)
[2025-03-01] MEDS: SOD PHOS DI, MONO/K PHOS MONO 250 MG TABLET GT (08:07)
[2025-03-01] MEDS: ESOMEPRAZOLE 40 MG GT (08:07)
[2025-03-01] MEDS: MULTIVITAMIN W MINERALS 1 EACH TABLET GT (08:07)
[2025-03-01] MEDS: ACETAMINOPHEN 325 MG TABLET 650 MG GT ×2 (13:17→21:30)
[2025-03-01] MEDS: IPRATROPIUM BROMIDE 200 PUFF/INH INHALER INH (19:37)
[2025-03-01] MEDS: FLUDROCORTISONE ACETATE 0.1 MG TABLET GT (20:37)
[2025-03-01] MEDS: SENNOSIDES 8.6 MG TABLET 17.2 MG GT (20:37)
[2025-03-01] MEDS: LOSARTAN 100 MG TABLET GT (20:37)
[2025-03-02 05:49] VITALS: BP 147/85; PULSE 81; RESP 19; TEMP 36.4; O2SAT 99
[2025-03-02 08:01] VITALS: PULSE 72; RESP 18; O2SAT 95
[2025-03-02 08:07] LABS: Albumin, Serum 3.7 gm/dL (3.4-4.8); Anion Gap 8 (7-16); BUN/Creatinine Ratio 37 Ratio (12-20); Blood Urea Nitrogen 11 mg/dL (9-23); Calcium 9.2 mg/dL (8.3-10.6); Calcium (Corrected) 9.4 mg/dL (8.5-10.1); Carbon Dioxide 30.5 mMol/L (20.0-31.0); Chloride 98 mMol/L (98-107); Creatinine (Component) 0.3 mg/dL (0.6-1.3); Estimated Creatinine Clearance 132.2 mL/min (>60); Glucose 111 mg/dL (74-106); Osmolality,Calculated 272 (275-295); Phosphorous 3.5 mg/dL (2.4-5.1); Potassium 3.6 mMol/L (3.4-5.1); Sodium 136 mMol/L (136-145); eGFR > 60 See Note
[2025-03-02] MEDS: MULTIVITAMIN W MINERALS 1 EACH TABLET GT (08:22)
[2025-03-02] MEDS: SODIUM CHLORIDE TAB 1,000 MG TABLET.SOL 1000 MG GT ×2 (08:22→20:27)
[2025-03-02] MEDS: ESOMEPRAZOLE 40 MG GT (08:22)
[2025-03-02] MEDS: SOD PHOS DI, MONO/K PHOS MONO 250 MG TABLET GT (08:22)
[2025-03-02 12:00] VITALS: BP 123/76; PULSE 86; RESP 20; TEMP 36
[2025-03-02] MEDS: ACETAMINOPHEN 325 MG TABLET 650 MG GT ×2 (14:11→20:27)
[2025-03-02 17:50] VITALS: BP 138/77; PULSE 79; RESP 22; TEMP 36.1; O2SAT 92
[2025-03-02 18:21] VITALS: PULSE 70; RESP 18; O2SAT 95
[2025-03-02 20:28] VITALS: BP 130/84; PULSE 80
[2025-03-02] MEDS: LOSARTAN 100 MG TABLET GT (20:28)
[2025-03-02] MEDS: FLUDROCORTISONE ACETATE 0.1 MG TABLET GT (20:28)
[2025-03-02] MEDS: SENNOSIDES 8.6 MG TABLET 17.2 MG GT (20:29)
[2025-03-03] VITALS (7 sets, daily range): BP systolic 126–165; BP diastolic 78–92; PULSE 81–102; RESP 17–24; TEMP 35.9–36.5; O2SAT 94–99
[2025-03-03] MEDS: SOD PHOS DI, MONO/K PHOS MONO 250 MG TABLET GT (08:00)
[2025-03-03] MEDS: MULTIVITAMIN W MINERALS 1 EACH TABLET GT (08:00)
[2025-03-03] MEDS: ESOMEPRAZOLE 40 MG GT (08:00)
[2025-03-03] MEDS: SODIUM CHLORIDE TAB 1,000 MG TABLET.SOL 1000 MG GT ×2 (08:00→20:44)
[2025-03-03] MEDS: FLUDROCORTISONE ACETATE 0.1 MG TABLET GT (20:44)
[2025-03-03] MEDS: LOSARTAN 100 MG TABLET GT (20:44)
[2025-03-03] MEDS: SENNOSIDES 8.6 MG TABLET 17.2 MG GT (20:45)
[2025-03-04] VITALS (7 sets, daily range): BP systolic 114–160; BP diastolic 80–94; PULSE 85–115; RESP 18–24; TEMP 36–36.6; O2SAT 87–96
[2025-03-04] MEDS: SOD PHOS DI, MONO/K PHOS MONO 250 MG TABLET GT (08:17)
[2025-03-04] MEDS: MULTIVITAMIN W MINERALS 1 EACH TABLET GT (08:17)
[2025-03-04] MEDS: ESOMEPRAZOLE 40 MG GT (08:18)
[2025-03-04] MEDS: SODIUM CHLORIDE TAB 1,000 MG TABLET.SOL 1000 MG GT ×2 (08:18→20:08)
[2025-03-04] MEDS: ACETAMINOPHEN 325 MG TABLET 650 MG GT ×2 (11:40→20:09)
[2025-03-04] MEDS: LOSARTAN 100 MG TABLET GT (20:09)
[2025-03-04] MEDS: FLUDROCORTISONE ACETATE 0.1 MG TABLET GT (20:09)
[2025-03-04] MEDS: SENNOSIDES 8.6 MG TABLET 17.2 MG GT (20:09)
[2025-03-05] VITALS (7 sets, daily range): BP systolic 122–156; BP diastolic 81–91; PULSE 69–89; RESP 19–24; TEMP 36.1–36.7; O2SAT 96–98; BMI 26.3
[2025-03-05] MEDS: MULTIVITAMIN W MINERALS 1 EACH TABLET GT (08:00)
[2025-03-05] MEDS: SOD PHOS DI, MONO/K PHOS MONO 250 MG TABLET GT (08:00)
[2025-03-05] MEDS: ESOMEPRAZOLE 40 MG GT (08:00)
[2025-03-05] MEDS: SODIUM CHLORIDE TAB 1,000 MG TABLET.SOL 1000 MG GT ×2 (08:00→20:30)
--- NOTE | 2025-03-05 09:05 | PD.SAPROG ---
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 (2) Epilepsy, unspecified, not intractable, without status epilepticus: Status: Chronic (3) Essential (primary) hypertension: Status: Chronic (4) Tracheostomy status: Status: Chronic (5) Gastrostomy status: Status: Chronic (6) Chronic respiratory failure, unspecified whether with hypoxia or hypercapnia: Status: Chronic (7) Chronic hyponatremia: Status: Chronic SUBJECTIVE Fever:: none GI:: none Shortness of Breath:: none GI:: no complaints Pain:: none OBJECTIVE Most recent vital signs: Last Vital Signs Temp 98.1 F 03/05/25 06:00 Pulse 71 03/05/25 06:46 Resp 19 03/05/25 06:46 BP 125/87 H 03/05/25 06:00 Pulse Ox 97 03/05/25 06:46 O2 Del Method Blow-by 03/05/25 06:00 O2 Flow Rate 10 03/05/25 06:46 FiO2 35 03/05/25 06:46 Neurological:: alert Speech:: nods head, mouths words (sometimes) and appropriate Answers questions:: sometimes Respiratory:: shallow breathing Cardiovascular: RRR Abdomen: soft and nontender Extremities:: deformities Decubitus:: none Tracheostomy:: to blow by Feeding per:: G tube Complaints:: none ASSESSMENT & PLAN Assessment: 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 No pain issues, and remains comfortable. Ice chips for some oral gratification tried with success without any cough or aspiration and continued.Remains fully dependent for care. interacts some and mostly happy. Tendency for Hypo-natremia on labs being monitored and addressed. No clinical change. Electrolytes improved. monitored regularly. Observed to be having eye inflammation and samples taken and antibiotics initiated. Pt remains fully dependent for care. No discomfort / pain. . No new issues. Family updated from time to time. Feeling better on Bronchodilators. VSS. Mild hyponatremia being addressed by some fluid restriction. Serum Na at 130 meq/dl today which is better. Started on Fludrocortisone 0.1mgs daily and will monitor labs. Hyponatremia improving already. VSS Serum sodium stabilizing on Fludrocortisone much better. Close monitoring with labs . stabilizing better Plan: All treatment reviewed and continued.
[2025-03-05] MEDS: ACETAMINOPHEN 325 MG TABLET 650 MG GT ×2 (11:58→20:30)
[2025-03-05] MEDS: FLUDROCORTISONE ACETATE 0.1 MG TABLET GT (20:30)
[2025-03-05] MEDS: LOSARTAN 100 MG TABLET GT (20:30)
[2025-03-05] MEDS: SENNOSIDES 8.6 MG TABLET 17.2 MG GT (20:30)
[2025-03-06] VITALS (7 sets, daily range): BP systolic 108–154; BP diastolic 76–97; PULSE 57–85; RESP 16–20; TEMP 36.1–36.4; O2SAT 95–98
[2025-03-06] MEDS: SODIUM CHLORIDE TAB 1,000 MG TABLET.SOL 1000 MG GT ×2 (09:24→20:45)
[2025-03-06] MEDS: MULTIVITAMIN W MINERALS 1 EACH TABLET GT (09:24)
[2025-03-06] MEDS: ESOMEPRAZOLE 40 MG GT (09:24)
[2025-03-06] MEDS: SOD PHOS DI, MONO/K PHOS MONO 250 MG TABLET GT (09:24)
[2025-03-06] MEDS: ACETAMINOPHEN 325 MG TABLET 650 MG GT (09:25)
[2025-03-06] MEDS: FLUDROCORTISONE ACETATE 0.1 MG TABLET GT (20:46)
[2025-03-06] MEDS: LOSARTAN 100 MG TABLET GT (20:46)
[2025-03-06] MEDS: SENNOSIDES 8.6 MG TABLET 17.2 MG GT (20:47)
[2025-03-07] VITALS (7 sets, daily range): BP systolic 115–157; BP diastolic 78–84; PULSE 67–103; RESP 16–20; TEMP 35.8–36.3; O2SAT 95–98
[2025-03-07] MEDS: ESOMEPRAZOLE 40 MG GT (09:04)
[2025-03-07] MEDS: SODIUM CHLORIDE TAB 1,000 MG TABLET.SOL 1000 MG GT ×2 (09:04→20:27)
[2025-03-07] MEDS: MULTIVITAMIN W MINERALS 1 EACH TABLET GT (09:05)
[2025-03-07] MEDS: SOD PHOS DI, MONO/K PHOS MONO 250 MG TABLET GT (09:05)
[2025-03-07] MEDS: FLUDROCORTISONE ACETATE 0.1 MG TABLET GT (20:27)
[2025-03-07] MEDS: LOSARTAN 100 MG TABLET GT (20:27)
[2025-03-07] MEDS: SENNOSIDES 8.6 MG TABLET 17.2 MG GT (20:28)
[2025-03-07] MEDS: ACETAMINOPHEN 325 MG TABLET 650 MG GT (20:28)
[2025-03-08] VITALS (7 sets, daily range): BP systolic 115–137; BP diastolic 76–84; PULSE 69–93; RESP 16–20; TEMP 36.3–36.6; O2SAT 96–98
[2025-03-08] MEDS: MULTIVITAMIN W MINERALS 1 EACH TABLET GT (08:32)
[2025-03-08] MEDS: SOD PHOS DI, MONO/K PHOS MONO 250 MG TABLET GT (08:32)
[2025-03-08] MEDS: ESOMEPRAZOLE 40 MG GT (08:32)
[2025-03-08] MEDS: SODIUM CHLORIDE TAB 1,000 MG TABLET.SOL 1000 MG GT ×2 (08:32→20:15)
[2025-03-08] MEDS: FLUDROCORTISONE ACETATE 0.1 MG TABLET GT (20:16)
[2025-03-08] MEDS: SENNOSIDES 8.6 MG TABLET 17.2 MG GT (20:17)
[2025-03-08] MEDS: LOSARTAN 100 MG TABLET GT (20:17)
[2025-03-09] VITALS (7 sets, daily range): BP systolic 133–188; BP diastolic 80–98; PULSE 72–97; RESP 18–20; TEMP 36.2–36.5; O2SAT 95–97
[2025-03-09] MEDS: ESOMEPRAZOLE 40 MG GT (08:23)
[2025-03-09] MEDS: SOD PHOS DI, MONO/K PHOS MONO 250 MG TABLET GT (08:23)
[2025-03-09] MEDS: SODIUM CHLORIDE TAB 1,000 MG TABLET.SOL 1000 MG GT ×2 (08:24→20:50)
[2025-03-09] MEDS: MULTIVITAMIN W MINERALS 1 EACH TABLET GT (08:24)
[2025-03-09] MEDS: SENNOSIDES 8.6 MG TABLET 17.2 MG GT (20:50)
[2025-03-09] MEDS: FLUDROCORTISONE ACETATE 0.1 MG TABLET GT (20:50)
[2025-03-09] MEDS: LOSARTAN 100 MG TABLET GT (20:50)
[2025-03-10] VITALS (7 sets, daily range): BP systolic 123–173; BP diastolic 85–97; PULSE 61–98; RESP 18–22; TEMP 36.1–36.8; O2SAT 97–99
[2025-03-10] MEDS: MULTIVITAMIN W MINERALS 1 EACH TABLET GT (09:19)
[2025-03-10] MEDS: ESOMEPRAZOLE 40 MG GT (09:19)
[2025-03-10] MEDS: SOD PHOS DI, MONO/K PHOS MONO 250 MG TABLET GT (09:19)
[2025-03-10] MEDS: SODIUM CHLORIDE TAB 1,000 MG TABLET.SOL 1000 MG GT ×2 (09:19→21:04)
[2025-03-10] MEDS: SENNOSIDES 8.6 MG TABLET 17.2 MG GT (21:03)
[2025-03-10] MEDS: LOSARTAN 100 MG TABLET GT (21:03)
[2025-03-10] MEDS: FLUDROCORTISONE ACETATE 0.1 MG TABLET GT (21:03)
[2025-03-11 06:00] VITALS: BP 156/81; PULSE 85; RESP 20; TEMP 36.1; O2SAT 98
[2025-03-11 06:37] VITALS: PULSE 97; RESP 18; O2SAT 97
[2025-03-11] MEDS: ESOMEPRAZOLE 40 MG GT (08:47)
[2025-03-11] MEDS: MULTIVITAMIN W MINERALS 1 EACH TABLET GT (08:48)
[2025-03-11] MEDS: ACETAMINOPHEN 325 MG TABLET 650 MG GT ×2 (08:48→20:47)
[2025-03-11] MEDS: SODIUM CHLORIDE TAB 1,000 MG TABLET.SOL 1000 MG GT ×2 (08:48→20:47)
[2025-03-11] MEDS: SOD PHOS DI, MONO/K PHOS MONO 250 MG TABLET GT (08:48)
[2025-03-11 12:00] VITALS: BP 156/87; PULSE 82; RESP 20; TEMP 36.4
[2025-03-11 17:41] VITALS: BP 161/76; PULSE 84; RESP 20; TEMP 36.3; O2SAT 97
[2025-03-11 20:46] VITALS: BP 185/96; PULSE 99
[2025-03-11] MEDS: LOSARTAN 100 MG TABLET GT (20:46)
[2025-03-11] MEDS: FLUDROCORTISONE ACETATE 0.1 MG TABLET GT (20:46)
[2025-03-11] MEDS: SENNOSIDES 8.6 MG TABLET 17.2 MG GT (20:47)
[2025-03-12] VITALS (7 sets, daily range): BP systolic 131–145; BP diastolic 80–88; PULSE 79–90; RESP 16–18; TEMP 36.1–36.3; O2SAT 98
[2025-03-12] MEDS: ESOMEPRAZOLE 40 MG GT (08:02)
[2025-03-12] MEDS: SOD PHOS DI, MONO/K PHOS MONO 250 MG TABLET GT (08:02)
[2025-03-12] MEDS: MULTIVITAMIN W MINERALS 1 EACH TABLET GT (08:02)
[2025-03-12] MEDS: SODIUM CHLORIDE TAB 1,000 MG TABLET.SOL 1000 MG GT ×2 (08:03→20:34)
--- NOTE | 2025-03-12 11:04 | PC.SS ---
Resident remains on blow by with trach in place and mitten to right hand, appears calm at this time.
[2025-03-12] MEDS: ACETAMINOPHEN 325 MG TABLET 650 MG GT (13:36)
[2025-03-12] MEDS: FLUDROCORTISONE ACETATE 0.1 MG TABLET GT (20:33)
[2025-03-12] MEDS: LOSARTAN 100 MG TABLET GT (20:33)
[2025-03-12] MEDS: SENNOSIDES 8.6 MG TABLET 17.2 MG GT (20:34)
[2025-03-13] VITALS (7 sets, daily range): BP systolic 134–151; BP diastolic 80–91; PULSE 72–92; RESP 17–19; TEMP 36.1–36.3; O2SAT 98–99
[2025-03-13] MEDS: ESOMEPRAZOLE 40 MG GT (10:00)
[2025-03-13] MEDS: SODIUM CHLORIDE TAB 1,000 MG TABLET.SOL 1000 MG GT ×2 (10:00→20:37)
[2025-03-13] MEDS: MULTIVITAMIN W MINERALS 1 EACH TABLET GT (10:00)
[2025-03-13] MEDS: SOD PHOS DI, MONO/K PHOS MONO 250 MG TABLET GT (10:00)
[2025-03-13] MEDS: FLUDROCORTISONE ACETATE 0.1 MG TABLET GT (20:35)
[2025-03-13] MEDS: LOSARTAN 100 MG TABLET GT (20:36)
[2025-03-13] MEDS: SENNOSIDES 8.6 MG TABLET 17.2 MG GT (20:37)
--- NOTE | 2025-03-13 21:59 | ESPR_ITS ---
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 (2) Epilepsy, unspecified, not intractable, without status epilepticus: Status: Chronic (3) Essential (primary) hypertension: Status: Chronic (4) Tracheostomy status: Status: Chronic (5) Gastrostomy status: Status: Chronic (6) Chronic respiratory failure, unspecified whether with hypoxia or hypercapnia: Status: Chronic (7) Chronic hyponatremia: Status: Chronic SUBJECTIVE Fever:: none GI:: none Shortness of Breath:: none GI:: no complaints Pain:: none OBJECTIVE Most recent vital signs: Last Vital Signs Temp 97.0 F 03/13/25 17:19 Pulse 72 03/13/25 20:36 Resp 18 03/13/25 17:19 BP 151/81 H 03/13/25 20:36 Pulse Ox 98 03/13/25 16:49 O2 Del Method Blow-by 03/11/25 17:41 O2 Flow Rate 6 03/13/25 16:49 FiO2 28 03/13/25 16:49 Neurological:: alert Speech:: nods head, mouths words (sometimes) and appropriate Answers questions:: sometimes Respiratory:: shallow breathing Cardiovascular: RRR Abdomen: soft and nontender Extremities:: deformities Decubitus:: none Tracheostomy:: to blow by Feeding per:: G tube Complaints:: none ASSESSMENT & PLAN Assessment: 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 No pain issues, and remains comfortable. Ice chips for some oral gratification tried with success without any cough or aspiration and continued.Remains fully dependent for care. interacts some and mostly happy. Tendency for Hypo-natremia on labs being monitored and addressed. No clinical change. Electrolytes improved. monitored regularly. Observed to be having eye inflammation and samples taken and antibiotics initiated. Pt remains fully dependent for care. No discomfort / pain. . No new issues. Family updated from time to time. Feeling better on Bronchodilators. VSS. Mild hyponatremia being addressed by some fluid restriction. Serum Na at 130 meq/dl today which is better. Started on Fludrocortisone 0.1mgs daily and will monitor labs. Hyponatremia improving already. VSS Serum sodium stabilizing on Fludrocortisone much better. Close monitoring with labs . stabilizing better Plan: All treatment reviewed and continued.
[2025-03-14] VITALS (7 sets, daily range): BP systolic 119–146; BP diastolic 81–91; PULSE 79–112; RESP 16–19; TEMP 36.1–36.7; O2SAT 96–97
[2025-03-14] MEDS: ESOMEPRAZOLE 40 MG GT (09:24)
[2025-03-14] MEDS: SOD PHOS DI, MONO/K PHOS MONO 250 MG TABLET GT (09:25)
[2025-03-14] MEDS: SODIUM CHLORIDE TAB 1,000 MG TABLET.SOL 1000 MG GT ×2 (09:25→20:29)
[2025-03-14] MEDS: MULTIVITAMIN W MINERALS 1 EACH TABLET GT (09:25)
[2025-03-14] MEDS: FLUDROCORTISONE ACETATE 0.1 MG TABLET GT (20:28)
[2025-03-14] MEDS: LOSARTAN 100 MG TABLET GT (20:28)
[2025-03-14] MEDS: SENNOSIDES 8.6 MG TABLET 17.2 MG GT (20:29)
[2025-03-14] MEDS: ACETAMINOPHEN 325 MG TABLET 650 MG GT (20:32)
[2025-03-15] VITALS: BP 137/67; PULSE 93; RESP 19; TEMP 36.3
[2025-03-15] MEDS: ACETAMINOPHEN 325 MG TABLET 650 MG GT ×2 (04:34→20:42)
[2025-03-15 06:00] VITALS: BP 118/56; PULSE 108; RESP 20; TEMP 36.1
[2025-03-15 06:19] VITALS: PULSE 82; RESP 18; O2SAT 97
[2025-03-15] MEDS: ESOMEPRAZOLE 40 MG GT (09:12)
[2025-03-15] MEDS: SODIUM CHLORIDE TAB 1,000 MG TABLET.SOL 1000 MG GT ×2 (09:13→20:42)
[2025-03-15] MEDS: MULTIVITAMIN W MINERALS 1 EACH TABLET GT (09:13)
[2025-03-15] MEDS: SOD PHOS DI, MONO/K PHOS MONO 250 MG TABLET GT (09:13)
[2025-03-15 18:05] VITALS: PULSE 75; PULSE 78; RESP 18; O2SAT 98
[2025-03-15] MEDS: FLUDROCORTISONE ACETATE 0.1 MG TABLET GT (20:40)
[2025-03-15 20:41] VITALS: BP 195/98; PULSE 102
[2025-03-15] MEDS: SENNOSIDES 8.6 MG TABLET 17.2 MG GT (20:41)
[2025-03-15] MEDS: LOSARTAN 100 MG TABLET GT (20:41)
[2025-03-16] VITALS: BP 154/81; PULSE 90; RESP 20; TEMP 36.8
[2025-03-16 06:00] VITALS: BP 130/81; PULSE 81; RESP 18; TEMP 36.5; O2SAT 97
[2025-03-16 07:44] VITALS: PULSE 78; RESP 18; O2SAT 97
[2025-03-16] MEDS: SOD PHOS DI, MONO/K PHOS MONO 250 MG TABLET GT (09:05)
[2025-03-16] MEDS: ESOMEPRAZOLE 40 MG GT (09:05)
[2025-03-16] MEDS: SODIUM CHLORIDE TAB 1,000 MG TABLET.SOL 1000 MG GT ×2 (09:06→20:30)
[2025-03-16] MEDS: MULTIVITAMIN W MINERALS 1 EACH TABLET GT (09:06)
[2025-03-16 12:00] VITALS: BP 154/81; PULSE 76; RESP 16; TEMP 36.1
[2025-03-16 18:45] VITALS: PULSE 80; RESP 18; O2SAT 98
[2025-03-16 20:29] VITALS: BP 169/97; PULSE 81
[2025-03-16] MEDS: FLUDROCORTISONE ACETATE 0.1 MG TABLET GT (20:29)
[2025-03-16] MEDS: LOSARTAN 100 MG TABLET GT (20:29)
[2025-03-16] MEDS: SENNOSIDES 8.6 MG TABLET 17.2 MG GT (20:30)
[2025-03-17] VITALS (7 sets, daily range): BP systolic 122–153; BP diastolic 80–98; PULSE 65–87; RESP 18–20; TEMP 36.2–36.6; O2SAT 97–978
[2025-03-17] MEDS: ESOMEPRAZOLE 40 MG GT (09:08)
[2025-03-17] MEDS: MULTIVITAMIN W MINERALS 1 EACH TABLET GT (09:09)
[2025-03-17] MEDS: ACETAMINOPHEN 325 MG TABLET 650 MG GT (09:09)
[2025-03-17] MEDS: SODIUM CHLORIDE TAB 1,000 MG TABLET.SOL 1000 MG GT ×2 (09:09→20:36)
[2025-03-17] MEDS: SOD PHOS DI, MONO/K PHOS MONO 250 MG TABLET GT (09:09)
[2025-03-17] MEDS: FLUDROCORTISONE ACETATE 0.1 MG TABLET GT (20:32)
[2025-03-17] MEDS: LOSARTAN 100 MG TABLET GT (20:35)
[2025-03-17] MEDS: SENNOSIDES 8.6 MG TABLET 17.2 MG GT (20:35)
--- NOTE | 2025-03-17 22:15 | PD.SAPROG ---
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 (2) Epilepsy, unspecified, not intractable, without status epilepticus: Status: Chronic (3) Essential (primary) hypertension: Status: Chronic (4) Tracheostomy status: Status: Chronic (5) Gastrostomy status: Status: Chronic (6) Chronic respiratory failure, unspecified whether with hypoxia or hypercapnia: Status: Chronic (7) Chronic hyponatremia: Status: Chronic SUBJECTIVE Fever:: none GI:: none Shortness of Breath:: none GI:: no complaints Pain:: none OBJECTIVE Most recent vital signs: Last Vital Signs Temp 97.2 F 03/17/25 17:09 Pulse 65 03/17/25 20:35 Resp 18 03/17/25 17:09 BP 153/98 H 03/17/25 20:35 Pulse Ox 97 03/17/25 17:09 O2 Del Method Blow-by 03/17/25 17:09 O2 Flow Rate 6 03/17/25 06:19 FiO2 28 03/17/25 06:19 Neurological:: alert Speech:: nods head, mouths words (sometimes) and appropriate Answers questions:: sometimes Respiratory:: shallow breathing Cardiovascular: RRR Abdomen: soft and nontender Extremities:: deformities Decubitus:: none Tracheostomy:: to blow by Feeding per:: G tube Complaints:: none ASSESSMENT & PLAN Assessment: 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 No pain issues, and remains comfortable. Ice chips for some oral gratification tried with success without any cough or aspiration and continued.Remains fully dependent for care. interacts some and mostly happy. Tendency for Hypo-natremia on labs being monitored and addressed. No clinical change. Electrolytes improved. monitored regularly. Observed to be having eye inflammation and samples taken and antibiotics initiated. Pt remains fully dependent for care. No discomfort / pain. . No new issues. Family updated from time to time. Feeling better on Bronchodilators. VSS. Mild hyponatremia being addressed by some fluid restriction. Serum Na at 130 meq/dl today which is better. Started on Fludrocortisone 0.1mgs daily and will monitor labs. Hyponatremia improving already. VSS Serum sodium stabilizing on Fludrocortisone much better. Close monitoring with labs . stabilizing better Plan: All treatment reviewed and continued.
[2025-03-18] VITALS: BP 149/95; PULSE 78; RESP 22; TEMP 36.3
[2025-03-18 06:00] VITALS: BP 152/92; PULSE 80; RESP 22; TEMP 36; O2SAT 98
[2025-03-18 06:55] VITALS: PULSE 83; RESP 18; O2SAT 93
[2025-03-18] MEDS: ESOMEPRAZOLE 40 MG GT (08:54)
[2025-03-18] MEDS: SOD PHOS DI, MONO/K PHOS MONO 250 MG TABLET GT (08:55)
[2025-03-18] MEDS: MULTIVITAMIN W MINERALS 1 EACH TABLET GT (08:55)
[2025-03-18] MEDS: SODIUM CHLORIDE TAB 1,000 MG TABLET.SOL 1000 MG GT ×2 (08:56→21:29)
[2025-03-18] MEDS: FLUDROCORTISONE ACETATE 0.1 MG TABLET GT (21:28)
[2025-03-18 21:29] VITALS: BP 152/81; PULSE 74
[2025-03-18] MEDS: SENNOSIDES 8.6 MG TABLET 17.2 MG GT (21:29)
[2025-03-18] MEDS: LOSARTAN 100 MG TABLET GT (21:29)
[2025-03-18 21:42] VITALS: PULSE 80; RESP 19; O2SAT 94
[2025-03-18 21:43] VITALS: PULSE 81; RESP 19; O2SAT 95
[2025-03-19] VITALS (7 sets, daily range): BP systolic 107–168; BP diastolic 75–89; PULSE 73–88; RESP 17–24; TEMP 36.1–36.4; O2SAT 94–97
[2025-03-19] MEDS: ESOMEPRAZOLE 40 MG GT (09:01)
[2025-03-19] MEDS: MULTIVITAMIN W MINERALS 1 EACH TABLET GT (09:01)
[2025-03-19] MEDS: SOD PHOS DI, MONO/K PHOS MONO 250 MG TABLET GT (09:01)
[2025-03-19] MEDS: SODIUM CHLORIDE TAB 1,000 MG TABLET.SOL 1000 MG GT ×2 (09:01→20:51)
[2025-03-19] MEDS: FLUDROCORTISONE ACETATE 0.1 MG TABLET GT (20:50)
[2025-03-19] MEDS: SENNOSIDES 8.6 MG TABLET 17.2 MG GT (20:51)
[2025-03-19] MEDS: LOSARTAN 100 MG TABLET GT (20:51)
[2025-03-20] VITALS: BP 152/70; PULSE 80; RESP 18; TEMP 36.7
[2025-03-20 06:00] VITALS: BP 137/87; PULSE 85; RESP 19; TEMP 36.6; O2SAT 97
[2025-03-20 06:18] VITALS: PULSE 86; RESP 18; O2SAT 96
[2025-03-20] MEDS: ESOMEPRAZOLE 40 MG GT (09:52)
[2025-03-20] MEDS: SODIUM CHLORIDE TAB 1,000 MG TABLET.SOL 1000 MG GT ×2 (09:53→21:16)
[2025-03-20] MEDS: SOD PHOS DI, MONO/K PHOS MONO 250 MG TABLET GT (09:53)
[2025-03-20] MEDS: MULTIVITAMIN W MINERALS 1 EACH TABLET GT (09:53)
[2025-03-20] MEDS: CARBAMIDE PEROXIDE OTIC SOL 15 ML BTL 5 DROP BOTH EARS (10:00)
[2025-03-20 18:21] VITALS: PULSE 92; RESP 18; O2SAT 96
[2025-03-20 21:15] VITALS: BP 143/92; PULSE 80
[2025-03-20] MEDS: FLUDROCORTISONE ACETATE 0.1 MG TABLET GT (21:15)
[2025-03-20] MEDS: SENNOSIDES 8.6 MG TABLET 17.2 MG GT (21:15)
[2025-03-20] MEDS: LOSARTAN 100 MG TABLET GT (21:15)
[2025-03-21] VITALS (9 sets, daily range): BP systolic 96–168; BP diastolic 69–85; PULSE 85–106; RESP 19–24; TEMP 36.2–37; O2SAT 94–99
[2025-03-21] MEDS: ALBUTEROL NEB 2.5 MG/3 ML VIAL.NEB INH ×2 (06:37→16:08)
[2025-03-21] MEDS: ESOMEPRAZOLE 40 MG GT (09:34)
[2025-03-21] MEDS: SOD PHOS DI, MONO/K PHOS MONO 250 MG TABLET GT (09:34)
[2025-03-21] MEDS: MULTIVITAMIN W MINERALS 1 EACH TABLET GT (09:34)
[2025-03-21] MEDS: SODIUM CHLORIDE TAB 1,000 MG TABLET.SOL 1000 MG GT ×2 (09:35→21:20)
[2025-03-21] MEDS: ACETAMINOPHEN 325 MG TABLET 650 MG GT (11:45)
--- NOTE | 2025-03-21 15:28 | PC.SS ---
Resident remains on blow by with trach in place and mitten to right hand, appears calm at this time.No changes noted, did have some extra breathing tx. and Tylenol given. Resting well.
--- NOTE | 2025-03-21 16:22 | PD.SAPROG ---
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 (2) Epilepsy, unspecified, not intractable, without status epilepticus: Status: Chronic (3) Essential (primary) hypertension: Status: Chronic (4) Tracheostomy status: Status: Chronic (5) Gastrostomy status: Status: Chronic (6) Chronic respiratory failure, unspecified whether with hypoxia or hypercapnia: Status: Chronic (7) Chronic hyponatremia: Status: Chronic SUBJECTIVE Fever:: none GI:: none Shortness of Breath:: none GI:: no complaints Pain:: none OBJECTIVE Most recent vital signs: Last Vital Signs Temp 98.2 F 03/21/25 12:00 Pulse 101 H 03/21/25 12:27 Resp 20 03/21/25 12:27 BP 121/80 03/21/25 12:00 Pulse Ox 99 03/21/25 12:27 O2 Del Method Blow-by 03/21/25 05:45 O2 Flow Rate 6 03/21/25 12:27 FiO2 28 03/21/25 12:27 Neurological:: alert Speech:: nods head, mouths words (sometimes) and appropriate Answers questions:: sometimes Respiratory:: shallow breathing Cardiovascular: RRR Abdomen: soft and nontender Extremities:: deformities Decubitus:: none Tracheostomy:: to blow by Feeding per:: G tube Complaints:: none ASSESSMENT & PLAN Assessment: 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 No pain issues, and remains comfortable. Ice chips for some oral gratification tried with success without any cough or aspiration and continued.Remains fully dependent for care. interacts some and mostly happy. Tendency for Hypo-natremia on labs being monitored and addressed. No clinical change. Electrolytes improved. monitored regularly. Observed to be having eye inflammation and samples taken and antibiotics initiated. Pt remains fully dependent for care. No discomfort / pain. . No new issues. Family updated from time to time. Feeling better on Bronchodilators. VSS. Mild hyponatremia being addressed by some fluid restriction. Serum Na at 130 meq/dl today which is better. Started on Fludrocortisone 0.1mgs daily and will monitor labs. Hyponatremia improving already. VSS Serum sodium stabilizing on Fludrocortisone much better. Close monitoring with labs . stabilizing better Plan: All treatment reviewed and continued.
[2025-03-21] MEDS: FLUDROCORTISONE ACETATE 0.1 MG TABLET GT (21:19)
[2025-03-21] MEDS: CARBAMIDE PEROXIDE OTIC SOL 15 ML BTL 5 DROP BOTH EARS (21:19)
[2025-03-21] MEDS: SENNOSIDES 8.6 MG TABLET 17.2 MG GT (21:20)
[2025-03-22] VITALS: BP 122/80; PULSE 90; RESP 20; TEMP 36.4
[2025-03-22 05:48] VITALS: BP 177/86; PULSE 83; RESP 19; TEMP 36.3; O2SAT 95
[2025-03-22 06:44] VITALS: PULSE 76; RESP 20; O2SAT 95
[2025-03-22] MEDS: CARBAMIDE PEROXIDE OTIC SOL 15 ML BTL 5 DROP BOTH EARS ×2 (08:25→21:27)
[2025-03-22] MEDS: ESOMEPRAZOLE 40 MG GT (08:26)
[2025-03-22] MEDS: SOD PHOS DI, MONO/K PHOS MONO 250 MG TABLET GT (08:26)
[2025-03-22] MEDS: MULTIVITAMIN W MINERALS 1 EACH TABLET GT (08:27)
[2025-03-22] MEDS: SODIUM CHLORIDE TAB 1,000 MG TABLET.SOL 1000 MG GT ×2 (08:27→21:28)
[2025-03-22 09:00] VITALS: PULSE 66; RESP 20; O2SAT 95
[2025-03-22] MEDS: ACETAMINOPHEN 325 MG TABLET 650 MG GT (14:54)
[2025-03-22 18:24] VITALS: PULSE 74; RESP 22; O2SAT 95
[2025-03-22] MEDS: FLUDROCORTISONE ACETATE 0.1 MG TABLET GT (21:27)
[2025-03-22 21:28] VITALS: BP 114/68; PULSE 78
[2025-03-22] MEDS: SENNOSIDES 8.6 MG TABLET 17.2 MG GT (21:28)
[2025-03-22] MEDS: LOSARTAN 100 MG TABLET GT (21:28)
[2025-03-23] VITALS (9 sets, daily range): BP systolic 120–132; BP diastolic 79–86; PULSE 61–108; RESP 18–26; TEMP 36.3–36.6; O2SAT 94–98
[2025-03-23] MEDS: ALBUTEROL NEB 2.5 MG/3 ML VIAL.NEB INH ×2 (02:53→16:43)
[2025-03-23] MEDS: MULTIVITAMIN W MINERALS 1 EACH TABLET GT (09:14)
[2025-03-23] MEDS: SOD PHOS DI, MONO/K PHOS MONO 250 MG TABLET GT (09:14)
[2025-03-23] MEDS: ESOMEPRAZOLE 40 MG GT (09:14)
[2025-03-23] MEDS: SODIUM CHLORIDE TAB 1,000 MG TABLET.SOL 1000 MG GT ×2 (09:14→20:49)
[2025-03-23] MEDS: CARBAMIDE PEROXIDE OTIC SOL 15 ML BTL 5 DROP BOTH EARS ×2 (09:14→20:47)
[2025-03-23] MEDS: ACETAMINOPHEN 325 MG TABLET 650 MG GT (17:30)
[2025-03-23] MEDS: FLUDROCORTISONE ACETATE 0.1 MG TABLET GT (20:47)
[2025-03-23] MEDS: LOSARTAN 100 MG TABLET GT (20:48)
[2025-03-23] MEDS: SENNOSIDES 8.6 MG TABLET 17.2 MG GT (20:48)
[2025-03-24] VITALS (7 sets, daily range): BP systolic 90–118; BP diastolic 66–76; PULSE 63–97; RESP 18–24; TEMP 36.4–36.6; O2SAT 94–97
[2025-03-24] MEDS: ALBUTEROL NEB 2.5 MG/3 ML VIAL.NEB INH (03:34)
[2025-03-24] MEDS: ESOMEPRAZOLE 40 MG GT (09:42)
[2025-03-24] MEDS: MULTIVITAMIN W MINERALS 1 EACH TABLET GT (09:42)
[2025-03-24] MEDS: SODIUM CHLORIDE TAB 1,000 MG TABLET.SOL 1000 MG GT (09:42)
[2025-03-24] MEDS: SOD PHOS DI, MONO/K PHOS MONO 250 MG TABLET GT (09:42)
[2025-03-24] MEDS: ACETAMINOPHEN 325 MG TABLET 650 MG GT (16:15)
[2025-03-24] MEDS: LOSARTAN 100 MG TABLET GT (20:51)
[2025-03-24] MEDS: FLUDROCORTISONE ACETATE 0.1 MG TABLET GT (20:51)
[2025-03-24] MEDS: SENNOSIDES 8.6 MG TABLET 17.2 MG GT (20:51)
[2025-03-25] VITALS (8 sets, daily range): BP systolic 109–154; BP diastolic 75–96; PULSE 68–87; RESP 18–24; TEMP 36.4–36.5; O2SAT 88–99
[2025-03-25] MEDS: ESOMEPRAZOLE 40 MG GT (08:09)
[2025-03-25] MEDS: MULTIVITAMIN W MINERALS 1 EACH TABLET GT (08:09)
[2025-03-25] MEDS: SODIUM CHLORIDE TAB 1,000 MG TABLET.SOL 1000 MG GT ×2 (08:09→20:57)
[2025-03-25] MEDS: SOD PHOS DI, MONO/K PHOS MONO 250 MG TABLET GT (08:09)
[2025-03-25] MEDS: ALBUTEROL NEB 2.5 MG/3 ML VIAL.NEB INH (11:28)
[2025-03-25] MEDS: FLUDROCORTISONE ACETATE 0.1 MG TABLET GT (20:57)
[2025-03-25] MEDS: LOSARTAN 100 MG TABLET GT (20:57)
[2025-03-25] MEDS: SENNOSIDES 8.6 MG TABLET 17.2 MG GT (20:58)
--- NOTE | 2025-03-25 22:24 | PD.SAPROG ---
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 (2) Epilepsy, unspecified, not intractable, without status epilepticus: Status: Chronic (3) Essential (primary) hypertension: Status: Chronic (4) Tracheostomy status: Status: Chronic (5) Gastrostomy status: Status: Chronic (6) Chronic respiratory failure, unspecified whether with hypoxia or hypercapnia: Status: Chronic (7) Chronic hyponatremia: Status: Chronic SUBJECTIVE Fever:: none GI:: none Shortness of Breath:: none GI:: no complaints Pain:: none OBJECTIVE Most recent vital signs: Last Vital Signs Temp 97.5 F 03/25/25 17:36 Pulse 81 03/25/25 20:57 Resp 18 03/25/25 19:27 BP 123/84 03/25/25 20:57 Pulse Ox 99 03/25/25 19:27 O2 Del Method Blow-by 03/25/25 17:36 O2 Flow Rate 8 03/25/25 19:27 FiO2 30 03/25/25 19:27 Neurological:: alert Speech:: nods head, mouths words (sometimes) and appropriate Answers questions:: sometimes Respiratory:: shallow breathing Cardiovascular: RRR Abdomen: soft and nontender Extremities:: deformities Decubitus:: none Tracheostomy:: to blow by Feeding per:: G tube Complaints:: none ASSESSMENT & PLAN Assessment: 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 No pain issues, and remains comfortable. Ice chips for some oral gratification tried with success without any cough or aspiration and continued.Remains fully dependent for care. interacts some and mostly happy. Tendency for Hypo-natremia on labs being monitored and addressed. No clinical change. Electrolytes improved. monitored regularly. Observed to be having eye inflammation and samples taken and antibiotics initiated. Pt remains fully dependent for care. No discomfort / pain. . No new issues. Family updated from time to time. Feeling better on Bronchodilators. VSS. Mild hyponatremia being addressed by some fluid restriction. Serum Na at 130 meq/dl today which is better. Started on Fludrocortisone 0.1mgs daily and will monitor labs. Hyponatremia improving already. VSS Serum sodium stabilizing on Fludrocortisone much better. Close monitoring with labs . stabilizing better Plan: All treatment reviewed and continued.
[2025-03-26] VITALS (7 sets, daily range): BP systolic 127–170; BP diastolic 76–84; PULSE 67–97; RESP 18–22; TEMP 36.4–36.7; O2SAT 93–95
[2025-03-26] MEDS: SODIUM CHLORIDE TAB 1,000 MG TABLET.SOL 1000 MG GT ×2 (09:17→21:07)
[2025-03-26] MEDS: MULTIVITAMIN W MINERALS 1 EACH TABLET GT (09:17)
[2025-03-26] MEDS: SOD PHOS DI, MONO/K PHOS MONO 250 MG TABLET GT (09:17)
[2025-03-26] MEDS: ESOMEPRAZOLE 40 MG GT (09:17)
--- NOTE | 2025-03-26 15:57 | PC.NURSE ---
Noted episode of disaturation to 50s. suctioned, increased 02. still saturation low. disconnected res. from blow by. started bagging with ambubag delivering 100% oxygen. O2 saturation up to low 90s. Drop Worker requested RT asisstance. Latonya RT oferred breathing treatment. seemed to help patient. Placed resident on continuous pulse ox to monitoring saturation closely. HR increased to 104, remains a febrile. will continue to monitor vital signs. right now makenzie still breathing 24BPM. Will notify
--- NOTE | 2025-03-26 20:52 | XR_ITS ---
Examination: AP chest single view Technique: AP portable semiupright chest single view date and time: March 26, 2025, 2108 hrs., Comparison December 07, 2024 Indications: Tachypnea shortness of breath today. Findings: Bilateral perihilar right basilar pneumonia Minor prominence left ventricle Reduced inspiratory effort Prominent osteopenia Impression: Bilateral perihilar right basilar pneumonia Tracheostomy tube tip 4.7 cm above cele
[2025-03-26] MEDS: FLUDROCORTISONE ACETATE 0.1 MG TABLET GT (21:08)
[2025-03-26] MEDS: LOSARTAN 100 MG TABLET GT (21:08)
[2025-03-26] MEDS: ACETAMINOPHEN 325 MG TABLET 650 MG GT (21:08)
[2025-03-26] MEDS: SENNOSIDES 8.6 MG TABLET 17.2 MG GT (21:08)
[2025-03-27] VITALS: BP 144/88; PULSE 87; RESP 28; TEMP 36.5
[2025-03-27] MEDS: ALBUTEROL NEB 2.5 MG/3 ML VIAL.NEB INH (00:05)
[2025-03-27 00:06] VITALS: PULSE 97; PULSE 98; RESP 20; O2SAT 100
[2025-03-27] MEDS: MAGNESIUM HYDROXIDE 30 ML ORAL SUSP ML GT (05:46)
--- NOTE | 2025-03-27 05:48 | PC.NURSE ---
Resident noted to desat x3 this shift down into the low 60's with x1 requiring to be bagged. Rt administered breathing treatments and FiO2 increased to 40. CXR done with noted right sided pneumonia. Charge nurse to inform MD. Head of bed elevated to facilitate O2 exchange. Coninuous pulse Ox remains in use with current SpO2 noted at 96-97% and resident resting with eyes closed and no s/s of respiratory distress at this time.
--- NOTE | 2025-03-27 05:48 | PC.NURSE ---
Continuous pulse oximeter alarming, resident O2 saturation 74% at the time, suctioned resident without difficulty and suctioned mouth. O2 increased to 100% on blow by, increased to 80% on pulse oximeter, nurse bagged resident at this time, resident had increased respiratory rate at this time, O2 saturation increased to 95%, reconnected to blow by and decreased O2 to 40%. Nurse stayed with resident while respirations decreased and O2 saturation continued to maintain at 93-94%. Chest x-ray order obtained- At 2350 resident had second episode of desaturation with increased respirations, resident suctioned and RT notified- breathing treatment administered, resident O2 saturation increased and RR decreased, no other distress noted. Resident had x2 other episodes of desaturation and increased respiratory rate and suctioned as needed.
[2025-03-27 06:00] VITALS: BP 149/90; PULSE 91; RESP 30; TEMP 36.6
[2025-03-27 07:04] VITALS: PULSE 93; PULSE 94; RESP 20; O2SAT 100; O2SAT 98
[2025-03-27] MEDS: SODIUM CHLORIDE TAB 1,000 MG TABLET.SOL 1000 MG GT (08:01)
[2025-03-27] MEDS: ESOMEPRAZOLE 40 MG GT (08:01)
[2025-03-27] MEDS: MULTIVITAMIN W MINERALS 1 EACH TABLET GT (08:01)
[2025-03-27] MEDS: SOD PHOS DI, MONO/K PHOS MONO 250 MG TABLET GT (08:01)
[2025-03-27] MEDS: BISACODYL 10 MG SUPP.RECT PR (10:10)
[2025-03-27] MEDS: ACETAMINOPHEN 325 MG TABLET 650 MG GT (10:44)
[2025-03-27 11:12] VITALS: BP 172/80; PULSE 114; RESP 42; TEMP 37.8; O2SAT 96
--- NOTE | 2025-03-27 12:01 | PC.NURSE ---
Resident having episodes of increased respiratory rate 50s, disaturation to the 60s with SOB, need to bagged x1 travel registered nurse pacu. RT increased FIO2 to 70% and placed on continuous pulse ox. resident has have these episodes about 3 days on and off. Despite the efforts of keeping her stable. Resident condition has become worse. Notified MD report current event and vital signs 100.9R 114,48RR, 172/80. New order to send resident to ED for further evaluation. Family will be notified. Called ED spoke with [facility] charge nurse at 1158. Will await for room and a gurney.
--- NOTE | 2025-03-27 13:12 | PC.NURSE ---
Transferred resident to ED via gurney. admitted to room 2. Extensive report given to Ofelia RN and Arnaldo RN. Notified resident's family (daughter Homa).
--- NOTE | 2025-03-27 13:23 | PC.SS ---
Resident remains on blow by with trach in place and mitten to right hand, having episodes of SOB, fever.did have some extra breathing tx. and Tylenol given. Sent to ER for further treatment at 1239 today.
--- NOTE | 2025-03-29 09:28 | ESPR_ITS ---
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 (2) Epilepsy, unspecified, not intractable, without status epilepticus: Status: Chronic (3) Essential (primary) hypertension: Status: Chronic (4) Tracheostomy status: Status: Chronic (5) Gastrostomy status: Status: Chronic (6) Chronic respiratory failure, unspecified whether with hypoxia or hypercapnia: Status: Chronic (7) Chronic hyponatremia: Status: Chronic SUBJECTIVE Fever:: none GI:: none Shortness of Breath:: none GI:: no complaints Pain:: none OBJECTIVE Most recent vital signs: Last Vital Signs Temp 100.0 F 03/27/25 11:12 Pulse 114 H 03/27/25 11:12 Resp 42 H 03/27/25 11:12 BP 172/80 H 03/27/25 11:12 Pulse Ox 96 03/27/25 11:12 O2 Del Method Blow-by 03/27/25 11:12 O2 Flow Rate 8 03/27/25 11:12 FiO2 40 03/27/25 11:12 Neurological:: alert Speech:: nods head, mouths words (sometimes) and appropriate Answers questions:: sometimes Respiratory:: shallow breathing Cardiovascular: RRR Abdomen: soft and nontender Extremities:: deformities Decubitus:: none Tracheostomy:: to blow by Feeding per:: G tube Complaints:: none ASSESSMENT & PLAN Assessment: 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 No pain issues, and remains comfortable. Ice chips for some oral gratification tried with success without any cough or aspiration and continued.Remains fully dependent for care. interacts some and mostly happy. Tendency for Hypo-natremia on labs being monitored and addressed. No clinical change. Electrolytes improved. monitored regularly. Observed to be having eye inflammation and samples taken and antibiotics initiated. Pt remains fully dependent for care. No discomfort / pain. . No new issues. Family updated from time to time. Feeling better on Bronchodilators. VSS. Mild hyponatremia being addressed by some fluid restriction. Serum Na at 130 meq/dl today which is better. Started on Fludrocortisone 0.1mgs daily and will monitor labs. Hyponatremia improving already. Serum sodium stabilizing on Fludrocortisone much better. Close monitoring with labs . Fairly stable Plan: All treatment reviewed and continued.
--- NOTE | 2025-04-01 16:43 | PC.NURSE ---
Addendum entered and electronically signed by Sol Caldwell RN 04/01/25 17:02: V/S as follows: 156/67, 66, 17, 97.5, 97% Original Note: Resident care back from Tele at 15:50 via bed with RN and RT, alert and awake. No s/s of respiratory distress noted. Resident to continue Cefepime 2 gm IV every 8 hrs x 2 days for PNA. On mechanical ventilator AC 12, TV 450, peep 5, FIO2 30% . RT to try to wean her once she completed the antibiotic. RT on duty made aware of it. Abdomen soft and non-tender. Totally dependent with ADls. Incontinent with both bowel and bladder elimination. Drdhu aware that resident came back from Tele and to continue all previous meds. Called resident's daughter Homa and made her aware that resident is back to subacute and the order for antibiotic and RT to try wean her from vent once she completed the ATB.
[2025-04-01 18:44] VITALS: PULSE 61; RESP 17; O2SAT 99
[2025-04-01 18:45] VITALS: PULSE 61; RESP 17; O2SAT 99
--- NOTE | 2025-04-01 20:39 | PC.RT ---
spoke on phone to DR. Gonsalez about pt vent settings is okay with AC VC of 450, RR12, 5+ per . pt will be on current vent settings untill finish antibiotics.
[2025-04-01] MEDS: SODIUM CHLORIDE TAB 1,000 MG TABLET.SOL 1000 MG GT (21:10)
[2025-04-01 21:11] VITALS: BP 118/73; PULSE 74
[2025-04-01] MEDS: LOSARTAN 100 MG TABLET GT (21:11)
[2025-04-01] MEDS: FLUDROCORTISONE ACETATE 0.1 MG TABLET GT (21:11)
[2025-04-01] MEDS: SENNOSIDES 8.6 MG TABLET 17.2 MG GT (21:12)
[2025-04-01] MEDS: CEFEPIME 1 GM VIAL 2 GM IV (21:55)
--- NOTE | 2025-04-01 22:20 | ESHP_ITS ---
Physical exam Physical Exam Vital signs: Temp Pulse Resp BP Pulse Ox O2 Del Method O2 Flow Rate 98.2 F 89 31 H 146/77 H 100 Mechanical Ventilation 8 04/13/25 05:29 04/13/25 05:29 04/13/25 05:29 04/13/25 05:29 04/13/25 05:29 04/13/25 05:29 03/27/25 11:12 FiO2 35 04/13/25 01:05 Narrative: pr awake , alert responds to simple commands, comfortable, bed bound, dependent for care. Constitutional Constitutional: no acute distress HEENT Exam Head: Present normocephalic Eye: Present PERRL ENT: Present mucous membranes moist, nares patent and external ear normal Neck Exam Neck: Present supple Chest/Breast/Axilla Exam Comments: NAD Respiratory Exam Respiratory: Present chest non-tender, lungs clear, normal breath sounds and no resp distress Comments: Pt now ventilator dependent Cardiovascular Exam Cardiovascular: Present RRR, S1 and S2 Abdominal Exam Abdominal: Present soft and normoactive bowel sounds Rectal Exam Patient deferred: visual exam and digital exam Exam Comments: NAD Extremities Exam Comments: NO clubbing cyanosis or edema Back/Spine/Pelvis Exam Comments: NAD Skin Exam Skin: Present intact Neurological Exam Neurological: Present alert and moving all extremities Comments: Oriented in person only, not time or place. responds to simple questions appropreatly sometimes.Not cognizant of her condition. general weakness , bed bound, dysphagia; incontinent of Bowel and Bladder Rehabilitation potential Diagnosis (1) Unspecified sequelae of other nontraumatic intracranial hemorrhage: Status: Chronic (2) Epilepsy, unspecified, not intractable, without status epilepticus: Status: Chronic (3) Essential (primary) hypertension: Status: Chronic (4) Tracheostomy status: Status: Chronic (5) Gastrostomy status: Status: Chronic (6) Chronic respiratory failure, unspecified whether with hypoxia or hypercapnia: Status: Chronic (7) Chronic hyponatremia: Status: Chronic (8) Chronic respiratory failure requiring continuous mechanical ventilation through tracheostomy: Status: Chronic Assessment & Plan Assessment: Treated for HAP and UTI in acute Hospital and transferred to [facility] today on a Ventilator. Pt fully dependent for longterm care. No pain issues, and remains comfortable. Ice chips for some oral gratification tried with success without any cough or aspiration and continued.Remains fully dependent for care. interacts some and mostly happy. Lond standing tendency for Hyponatremia and was Started on Fludrocortisone 0.1mgs daily with good response. Antibiotics continued as C & S. Close monitoring with labs . Fairly stable Plan: All treatment reviewed and continued. 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 Family kept updated Goals Full support and comfort but maintained DNR code status HPI History of Present Illness HPI: Pt being readmitted to subacute after being Hospitalized and treated for HAP and [place] UTI. She has been a resident of [facility] for a very long time since she remains dependent for care with chronic diagnosis of :H/o i/cerebral bleed with significant neurological and physical deficits of a permanent nature necessitating full care. She has a Tracheostomy in place for Chronic respiratory failure and hypoxia; Feeding G tube for dysphagia; Seizures; GERD; HTN; Persistent hyponatremia
[2025-04-01 22:30] VITALS: PULSE 85; RESP 17; O2SAT 96
[2025-04-01] MEDS: ALBUTEROL NEB 2.5 MG/3 ML VIAL.NEB INH (22:30)
[2025-04-01] MEDS: ACETAMINOPHEN 325 MG TABLET 650 MG GT (23:50)
[2025-04-02] VITALS: BP 94/60; PULSE 54; RESP 18; TEMP 36.1
[2025-04-02 01:14] VITALS: PULSE 73; RESP 17; O2SAT 99
--- NOTE | 2025-04-02 03:23 | PC.NURSE ---
Resident receiving IV antibiotics Cefepime for PNA, no side effects noted
[2025-04-02 04:24] VITALS: PULSE 76; RESP 24; O2SAT 100
[2025-04-02] MEDS: ALBUTEROL NEB 2.5 MG/3 ML VIAL.NEB INH (04:24)
--- NOTE | 2025-04-02 05:24 | PC.RT ---
at 04:45 pt RR labored abd breathing in the 30s pip pressures in the 40s per [employer] taking her vitals and pt RR started to be labored, spo2 94% hr 80s, Itime decreased to .85 from 1.0 pip pressures improved to the 30s, pt was suctioned small amount of thin frothy sputum, expiratory filter changed, HME changed cuffed pressured asessed, trach remains patent, RN aware.
--- NOTE | 2025-04-02 05:45 | PC.RT ---
vent alarming low fio2 around 2:00 disconnected the o2 and reconnected fio2 alarm resolved inmediately nurse aware.
[2025-04-02] MEDS: CEFEPIME 1 GM VIAL 2 GM IV (05:57)
[2025-04-02 06:00] VITALS: BP 129/85; PULSE 93; RESP 33; TEMP 36.1
[2025-04-02 06:26] VITALS: PULSE 131; RESP 40; RESP 41; O2SAT 93
--- NOTE | 2025-04-02 07:10 | PC.NURSE ---
Resident's started having respiratory distress, ventilator alarming high respirations, suctioned and repositioned, O2 saturation was 94%. RT was notified and gave PRN breathing treatment with no change in respiratory stauts. Notified Dr Gonsalez notified with new order to give Ativan 0.5mg PGT x1 dose for increased respiratory rate. Ativan was administered at 0530 via GT, was not effective, notifed RT who gave breathing treatment. RT to call Dr Gonsalez r/t labored breathing and medications not effective, new order to send resident to ER for further evaluation-called ER spoke with Rocio, resident to go to ER to room 4.
--- NOTE | 2025-04-02 08:40 | PC.NURSE ---
Resident having labored breathing tylenol was given 2356, and ativan at 0600, . made aware and order to send resident, for further evaluation, resident was sent to ER, around 0720 and family was notified.
--- NOTE | 2025-04-03 15:18 | PC.SS ---
Resident remains on blow by with trach in place and mitten to right hand, having episodes of SOB. Readmitted to Telemetry on 04/03/25.
[2025-04-08 14:15] VITALS: PULSE 66; RESP 30; O2SAT 99
--- NOTE | 2025-04-08 14:36 | PC.NURSE ---
Resident came back from [facility] at 14:05 via bed with RTTODD, RN. On mechanical ventilator AC 30, TV 300, FIO2 40%, awake , no s/s of respiratory distress noted. Resident will be on Zosyn every 8 hours x 7days for PNA and with new orders for Gabapentin 300 mg TID and seroquel 25 mg BID. As per report received from the RN earlier today, resident was not on tube feeding. Spoke with Dr Gonsalez earlier today and made him aware of it and he said to continue the tube feeding. Spoke with RD and recommended to start the tube feeding Jevity 1.5 at 15 ml/hr and increase by 10 ml every 8hours if resident able to tolerate it, with goal rate of 35 ml/hr.
--- NOTE | 2025-04-08 17:34 | PC.NURSE ---
Spoke with resident's daughter Homa at 16:13 and made her aware that resident came back from acute care. Made her aware about the order for the antibiotic , neurontin and seroquel. As per report given from the nurse in acute care, both medications are being given in acute care due to resident's agitation causing increased respirations. Discussed with resident's daughter about the Seroquel and possible side side effects and gave telephone consent to administer.
--- NOTE | 2025-04-08 17:40 | PC.NURSE ---
No side effects noted from Zosyn as ordered for Pneumonia. On mechanical ventilator and no s/s of respiratory distress noted at this time. IV H/L to right upper arm, patent , no s/s of infection or infiltration noted.
[2025-04-08 20:27] VITALS: PULSE 62; PULSE 67; RESP 30; O2SAT 99
--- NOTE | 2025-04-08 20:50 | ESPR_ITS ---
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 (2) Epilepsy, unspecified, not intractable, without status epilepticus: Status: Chronic (3) Essential (primary) hypertension: Status: Chronic (4) Tracheostomy status: Status: Chronic (5) Gastrostomy status: Status: Chronic (6) Chronic hyponatremia: Status: Chronic (7) Chronic respiratory failure requiring continuous mechanical ventilation through tracheostomy: Status: Chronic SUBJECTIVE Fever:: none GI:: none Shortness of Breath:: none GI:: no complaints Pain:: none OBJECTIVE Most recent vital signs: Last Vital Signs Temp 98.2 F 04/13/25 05:29 Pulse 89 04/13/25 05:29 Resp 31 H 04/13/25 05:29 BP 146/77 H 04/13/25 05:29 Pulse Ox 100 04/13/25 05:29 O2 Del Method Mechanical Ventilation 04/13/25 05:29 O2 Flow Rate 8 03/27/25 11:12 FiO2 35 04/13/25 01:05 Neurological:: alert Speech:: nods head, mouths words (sometimes) and appropriate Answers questions:: sometimes Respiratory:: shallow breathing (Ventilator dependant) Cardiovascular: RRR Abdomen: soft and nontender Extremities:: deformities Decubitus:: none Tracheostomy:: to ventilator Feeding per:: G tube Complaints:: none ASSESSMENT & PLAN Assessment: Treated for HAP and UTI in acute Hospital and transferred to [facility] [id number] on a Ventilator. 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 No pain issues, and remains comfortable. Ice chips for some oral gratification tried with success without any cough or aspiration and continued.Remains fully dependent for care. interacts some and mostly happy. Lond standing tendency for Hyponatremia and was Started on Fludrocortisone 0.1mgs daily with good response. Antibiotics Zosyn , continued as C & S. Close monitoring with labs . VSS Fairly stable Plan: All treatment reviewed and continued.
[2025-04-08] MEDS: FLUDROCORTISONE ACETATE 0.1 MG TABLET GT (20:58)
[2025-04-08 20:59] VITALS: BP 124/74; PULSE 61
[2025-04-08] MEDS: LOSARTAN 100 MG TABLET GT (20:59)
[2025-04-08] MEDS: SENNOSIDES 8.6 MG TABLET 17.2 MG GT (20:59)
[2025-04-08] MEDS: SODIUM CHLORIDE TAB 1,000 MG TABLET.SOL 1000 MG GT (21:00)
[2025-04-08] MEDS: MAGNESIUM HYDROXIDE 30 ML ORAL SUSP ML GT (21:07)
[2025-04-08] MEDS: GABAPENTIN 300 MG CAPSULE GT (21:32)
[2025-04-09] VITALS (10 sets, daily range): BP systolic 63–95; BP diastolic 41–69; PULSE 58–83; RESP 30; TEMP 32.2–36.2; O2SAT 96–99
--- NOTE | 2025-04-09 00:54 | PC.NURSE ---
Dr. Gonsalez notified regarding resident rectal temperature of 90.0. Informed MD that unable to reach daughter and son at this time. Attempted but calls goes to busy signal with daughter and son's voicemail. Order to keep resident hander in the unit, if possible use the warmer used by ER. At this time, resident with warm blankets to keep warm. Deirdre Lundy called regarding warmer(tanya brock).
--- NOTE | 2025-04-09 02:51 | PC.NURSE ---
Resident rectal temp 92.1. Resident awake, no s/s discomfort, no distress noted. Continue warm blankets and packs. Warmer not available to use DPSNF unit per HS.
--- NOTE | 2025-04-09 04:14 | PC.NURSE ---
The resident was noted to feel cool to the touch. The RN HYPERBARIC obtained a rectal temperature, which was 90?F. The nurse immediately initiated warming measures, including the application of warm blankets and the administration of 300 mL of warmed normal saline. A subsequent recheck of the rectal temperature showed a slight increase to 91.2?F. Additional warming measures were implemented to further elevate the resident's body temperature. After further intervention, the rectal temperature gareth to 92.7?F. Both the charge nurse and the physician were notified and are aware of the situation.
[2025-04-09] MEDS: GABAPENTIN 300 MG CAPSULE GT ×3 (05:27→21:06)
--- NOTE | 2025-04-09 06:26 | PC.NURSE ---
Resident receiving IV Zosyn every 8 hours for PNA. Tolerating well. No adverse reaction noted.
[2025-04-09] MEDS: QUETIAPINE FUMARATE 25 MG TABLET GT ×2 (09:22→20:21)
[2025-04-09] MEDS: MULTIVITAMIN W MINERALS 1 EACH TABLET GT (09:22)
[2025-04-09] MEDS: SOD PHOS DI, MONO/K PHOS MONO 250 MG TABLET GT (09:22)
[2025-04-09] MEDS: ESOMEPRAZOLE 40 MG GT (09:22)
[2025-04-09] MEDS: SODIUM CHLORIDE TAB 1,000 MG TABLET.SOL 1000 MG GT ×2 (09:23→20:21)
--- NOTE | 2025-04-09 12:07 | PC.NURSE ---
Temperature slowly elevating. Continues to be covered in warm blankets with heater provided by Engineering at bedside. At 1030, V/S as follows : 96.1, 77, 30, 63/41, 98%. Blood pressure checked on three extremities (IV in GLORY). Resident pale, pulses present in all four extremities. No s/s pain or respiratory distress. Urine output adequate.Responsive to voice, shaking. Charge Nurse and Clinical Language Tutor notified with orders to check V/S every four hours and attempt to keep resident comfortable. Resident repositioned and covered with warm blankets. Continue to observe.
--- NOTE | 2025-04-09 19:12 | PC.NURSE ---
Resident on antibiotic IV no adverse effect noted.
[2025-04-09] MEDS: FLUDROCORTISONE ACETATE 0.1 MG TABLET GT (20:17)
[2025-04-09] MEDS: SENNOSIDES 8.6 MG TABLET 17.2 MG GT (20:20)
[2025-04-10] VITALS (10 sets, daily range): BP systolic 94–120; BP diastolic 60–77; PULSE 58–88; RESP 30; TEMP 35.6–36.7; O2SAT 95–99
[2025-04-10] MEDS: GABAPENTIN 300 MG CAPSULE GT ×3 (05:01→21:31)
[2025-04-10] MEDS: SODIUM CHLORIDE TAB 1,000 MG TABLET.SOL 1000 MG GT ×2 (08:20→20:10)
[2025-04-10] MEDS: SOD PHOS DI, MONO/K PHOS MONO 250 MG TABLET GT (08:20)
[2025-04-10] MEDS: MULTIVITAMIN W MINERALS 1 EACH TABLET GT (08:20)
[2025-04-10] MEDS: ESOMEPRAZOLE 40 MG GT (08:20)
[2025-04-10] MEDS: QUETIAPINE FUMARATE 25 MG TABLET GT ×2 (08:21→20:11)
--- NOTE | 2025-04-10 19:50 | PC.NURSE ---
04/10/25@1900: Pt continues on Zosyn IV q 8hrs and has 20g to right upper arm. Pt being treated for pneumonia. IV flushing well. Waldo stated 04/08/25 and will exp. 04/15/25. Pt tolerating tx well.
--- NOTE | 2025-04-10 19:55 | PC.NURSE ---
Addendum entered by Kassandra Collins RN 04/11/25 22:10: wrong patient Original Note: Late entry for 04/10/25@1155: Pt was transferred from Tele unit back to subacute. Pt was still on a bed hold. During transfer back to hospital bed, Tele nurse pointed out that resident developed wound ulcer to 4th digit of left hand. Per transferring nurse, wound formed prior IV placed on 4th finger and then wrapped snuggly. This program writer unable to see wound bed, and lower half of finger is red. Wound appears to be unstageable at this time due to unable to see wound bed. Pt currently on Zosyn 3.375 gm IV for q 8hrs for pneumonia x6 days. 20g to top of left hand, and flushing well. Will continue to monitor pt for any acute changes.
[2025-04-10] MEDS: FLUDROCORTISONE ACETATE 0.1 MG TABLET GT (20:09)
[2025-04-10] MEDS: LOSARTAN 100 MG TABLET GT (20:09)
[2025-04-10] MEDS: SENNOSIDES 8.6 MG TABLET 17.2 MG GT (20:10)
[2025-04-11] VITALS (12 sets, daily range): BP systolic 81–128; BP diastolic 47–73; PULSE 60–122; RESP 28–30; TEMP 33.6–36.2; O2SAT 98–100
[2025-04-11] MEDS: ACETAMINOPHEN 325 MG TABLET 650 MG GT (00:37)
[2025-04-11] MEDS: ALBUTEROL NEB 2.5 MG/3 ML VIAL.NEB INH (00:48)
[2025-04-11] MEDS: IBUPROFEN 100 MG/5 ML ORAL.SUSP 400 MG GT (01:36)
--- NOTE | 2025-04-11 03:15 | PC.NURSE ---
pt's bp at 031 is 81/47, pulse 77, charge nurse is aware, will continue to monitor
[2025-04-11] MEDS: GABAPENTIN 300 MG CAPSULE GT ×3 (05:33→22:00)
--- NOTE | 2025-04-11 06:45 | PC.NURSE ---
Resident remains on IV antibiotics Zosyn for PNA, 20g IV to right upper arm remains patent, no side effects noted. Resident had x1 episode of increased, labored breathing, Tylenol was administered and PRN breathing treatment given with minimal effect. Notified Dr Gonsalze who requested RT to check ventilator settings and x1 dose of Ibuprofen 400mg PGT. Ibuprofen given at 0130, resident was cleaned of large loose BM and repositioned. After approximately 45 minutes resident is no longer having labored beathing, no distress noted, call light is within reach.
[2025-04-11] MEDS: SODIUM CHLORIDE TAB 1,000 MG TABLET.SOL 1000 MG GT ×2 (08:45→20:26)
[2025-04-11] MEDS: QUETIAPINE FUMARATE 25 MG TABLET GT ×2 (08:46→20:27)
[2025-04-11] MEDS: SOD PHOS DI, MONO/K PHOS MONO 250 MG TABLET GT (08:46)
[2025-04-11] MEDS: MULTIVITAMIN W MINERALS 1 EACH TABLET GT (08:46)
[2025-04-11] MEDS: ESOMEPRAZOLE 40 MG GT (08:46)
--- NOTE | 2025-04-11 18:44 | PC.NURSE ---
Resident still on IV antibiotic no adversed effect noted.
[2025-04-11] MEDS: FLUDROCORTISONE ACETATE 0.1 MG TABLET GT (20:25)
[2025-04-11] MEDS: LOSARTAN 100 MG TABLET GT (20:26)
[2025-04-12] VITALS (10 sets, daily range): BP systolic 117–154; BP diastolic 72–90; PULSE 66–83; RESP 20–32; TEMP 35–36.6; O2SAT 97–99
[2025-04-12] MEDS: GABAPENTIN 300 MG CAPSULE GT ×3 (05:22→22:35)
[2025-04-12] MEDS: ESOMEPRAZOLE 40 MG GT (08:58)
[2025-04-12] MEDS: SOD PHOS DI, MONO/K PHOS MONO 250 MG TABLET GT (08:58)
[2025-04-12] MEDS: SODIUM CHLORIDE TAB 1,000 MG TABLET.SOL 1000 MG GT ×2 (08:59→20:24)
[2025-04-12] MEDS: QUETIAPINE FUMARATE 25 MG TABLET GT ×2 (08:59→20:26)
[2025-04-12] MEDS: MULTIVITAMIN W MINERALS 1 EACH TABLET GT (08:59)
[2025-04-12] MEDS: ALBUTEROL NEB 2.5 MG/3 ML VIAL.NEB INH (10:22)
--- NOTE | 2025-04-12 19:17 | PC.NURSE ---
resident still on antibiotic no adversed effect noted.
[2025-04-12] MEDS: FLUDROCORTISONE ACETATE 0.1 MG TABLET GT (20:24)
[2025-04-12] MEDS: LOSARTAN 100 MG TABLET GT (20:24)
[2025-04-13] VITALS (8 sets, daily range): BP systolic 118–183; BP diastolic 77–102; PULSE 74–125; RESP 30–34; TEMP 36.2–37; O2SAT 96–100
[2025-04-13] MEDS: diphenhydrAMINE 25 MG TABLET GT ×4 (00:23→21:17)
[2025-04-13] MEDS: ACETAMINOPHEN 325 MG TABLET 650 MG GT ×3 (04:38→20:24)
[2025-04-13] MEDS: GABAPENTIN 300 MG CAPSULE GT ×3 (05:28→21:17)
--- NOTE | 2025-04-13 06:09 | PC.NURSE ---
Notified Dr Gonsalez regarding rash that has spread from lower abdominal fold to abdomen and upper chest, new order to discontinue Zosyn, start Levaquin 500mg daily x 5 days and Benadryl 25mg every 8 hours x 3 days and update MD if effective.
[2025-04-13] MEDS: SOD PHOS DI, MONO/K PHOS MONO 250 MG TABLET GT (08:41)
[2025-04-13] MEDS: MULTIVITAMIN W MINERALS 1 EACH TABLET GT (08:41)
[2025-04-13] MEDS: SODIUM CHLORIDE TAB 1,000 MG TABLET.SOL 1000 MG GT ×2 (08:41→20:20)
[2025-04-13] MEDS: QUETIAPINE FUMARATE 25 MG TABLET GT ×2 (08:41→20:21)
[2025-04-13] MEDS: ESOMEPRAZOLE 40 MG GT (08:41)
[2025-04-13] MEDS: ALBUTEROL NEB 2.5 MG/3 ML VIAL.NEB INH ×2 (11:50→19:06)
--- NOTE | 2025-04-13 16:41 | PC.NURSE ---
Resident noticed earlier today of increased respiration, O2 saturation 97-98% on mechanical ventilator. No s/s of respiratory distress noted. Tylenol was given and breathing treatment was given by RT with no help. Resident on comfort measure. Dr Gonsalez was notified and ordered for Ativan PRN . Called resident's daughter Homa and gave updates about the resident and made aware of the new order for ativan. Added to Homa about the Zosyn that was discontinued and the order for Levaquin and Benadryl.
--- NOTE | 2025-04-13 18:30 | PC.NURSE ---
Resident was started on Levaquin 500mg for Pneumonia, no s\s of adverse reaction noted, no elevated temperature or s\s of discomfort or pain. Call light within reach.
[2025-04-13] MEDS: FLUDROCORTISONE ACETATE 0.1 MG TABLET GT (20:21)
[2025-04-13] MEDS: LOSARTAN 100 MG TABLET GT (20:23)
--- NOTE | 2025-04-13 20:40 | PC.NURSE ---
Per HAULAGE ENGINE OPERATOR and RT, resident face was blue and [id number] noted in the 30%, FIO increased by RT to 100%, resident was reposition to left side and Ativan 0.5mg pulled from the cubix by this nurse and HAULAGE ENGINE OPERATOR, HAULAGE ENGINE OPERATOR administered Ativan via Gtube, made aware of desatuation episode and continue respiratory distress, new order obtained for Ativan 1mg via Gtube [id number] PRN for respiratory distress, RP made aware.
--- NOTE | 2025-04-13 21:25 | PC.RT ---
at 19:43 per nsg pt tachypnic and abd breathing, immediately went to assess pt RR30s spo2 35% pt face pale owens not responding tidal volumes 100s, increased fio2 to 100% pt suctioned auscultated coarse bs, sats improved to 99% pt started to respond and instructed pt to move hr right hand pt able to move her hand color improving, pt RR labored and abd breathing nurse Elba came to bedside and aware.
--- NOTE | 2025-04-13 21:45 | PC.RT ---
fio2 titrated to 45% sats remain 98-100% pt seems comfortable at this time, Elba MORENO made aware.
[2025-04-14] VITALS (9 sets, daily range): BP systolic 117–143; BP diastolic 74–85; PULSE 70–101; RESP 30–31; TEMP 36.2; O2SAT 99–100
[2025-04-14] MEDS: ALBUTEROL NEB 2.5 MG/3 ML VIAL.NEB INH (05:12)
[2025-04-14] MEDS: diphenhydrAMINE 25 MG TABLET GT ×3 (06:00→21:03)
[2025-04-14] MEDS: GABAPENTIN 300 MG CAPSULE GT ×3 (06:00→21:03)
[2025-04-14] MEDS: SODIUM CHLORIDE TAB 1,000 MG TABLET.SOL 1000 MG GT ×2 (08:13→20:44)
[2025-04-14] MEDS: ESOMEPRAZOLE 40 MG GT (08:13)
[2025-04-14] MEDS: SOD PHOS DI, MONO/K PHOS MONO 250 MG TABLET GT (08:13)
[2025-04-14] MEDS: MULTIVITAMIN W MINERALS 1 EACH TABLET GT (08:13)
[2025-04-14] MEDS: QUETIAPINE FUMARATE 25 MG TABLET GT ×2 (08:15→20:46)
--- NOTE | 2025-04-14 17:34 | PC.NURSE ---
Resident on levaquin abt. for PNA no adverse effect noted.
[2025-04-14] MEDS: SENNOSIDES 8.6 MG TABLET 17.2 MG GT (20:45)
[2025-04-14] MEDS: LOSARTAN 100 MG TABLET GT (20:45)
[2025-04-14] MEDS: FLUDROCORTISONE ACETATE 0.1 MG TABLET GT (20:45)
[2025-04-15] VITALS (9 sets, daily range): BP systolic 108–183; BP diastolic 76–96; PULSE 83–115; RESP 30–36; TEMP 36.4–37.3; O2SAT 98–100
[2025-04-15] MEDS: diphenhydrAMINE 25 MG TABLET GT ×3 (05:29→21:29)
[2025-04-15] MEDS: GABAPENTIN 300 MG CAPSULE GT ×3 (05:29→21:29)
[2025-04-15] MEDS: ALBUTEROL NEB 2.5 MG/3 ML VIAL.NEB INH (06:04)
[2025-04-15] MEDS: ACETAMINOPHEN 325 MG TABLET 650 MG GT ×2 (07:52→20:44)
[2025-04-15] MEDS: QUETIAPINE FUMARATE 25 MG TABLET GT ×2 (09:00→20:42)
[2025-04-15] MEDS: SODIUM CHLORIDE TAB 1,000 MG TABLET.SOL 1000 MG GT ×2 (09:11→20:41)
[2025-04-15] MEDS: SOD PHOS DI, MONO/K PHOS MONO 250 MG TABLET GT (09:11)
[2025-04-15] MEDS: ESOMEPRAZOLE 40 MG GT (09:11)
[2025-04-15] MEDS: MULTIVITAMIN W MINERALS 1 EACH TABLET GT (09:11)
[2025-04-15] MEDS: FLUDROCORTISONE ACETATE 0.1 MG TABLET GT (20:41)
[2025-04-15] MEDS: LOSARTAN 100 MG TABLET GT (20:42)
[2025-04-15] MEDS: SENNOSIDES 8.6 MG TABLET 17.2 MG GT (20:42)
[2025-04-16] VITALS (12 sets, daily range): BP systolic 113–147; BP diastolic 68–89; PULSE 61–128; RESP 30–36; TEMP 36–37.3; O2SAT 97–99
[2025-04-16] MEDS: GABAPENTIN 300 MG CAPSULE GT ×3 (05:24→21:35)
[2025-04-16] MEDS: ALBUTEROL NEB 2.5 MG/3 ML VIAL.NEB INH ×2 (07:57→13:33)
[2025-04-16] MEDS: SODIUM CHLORIDE TAB 1,000 MG TABLET.SOL 1000 MG GT ×2 (08:00→20:43)
[2025-04-16] MEDS: SOD PHOS DI, MONO/K PHOS MONO 250 MG TABLET GT (08:00)
[2025-04-16] MEDS: MULTIVITAMIN W MINERALS 1 EACH TABLET GT (08:00)
[2025-04-16] MEDS: ESOMEPRAZOLE 40 MG GT (08:00)
[2025-04-16] MEDS: QUETIAPINE FUMARATE 25 MG TABLET GT ×2 (08:14→20:45)
--- NOTE | 2025-04-16 11:15 | PC.NURSE ---
when I went into her room to do rom her respirations were high so i notified the nurse and the charge nurse and they advised me not to do rom on her.
[2025-04-16] MEDS: ACETAMINOPHEN 325 MG TABLET 650 MG GT (11:49)
--- NOTE | 2025-04-16 16:51 | PC.NURSE ---
04/16/25@1650: Pt continues on Levaquin 500mg qd and expires 04/17/25. Pt doing well on medication, no s/s of adverse reaction.
--- NOTE | 2025-04-16 17:11 | PC.NURSE ---
Resident continues on Levaquin 500mg, no s/s of adverse reaction noted, last dose of antibiotic is on 04/17/2025. Will continue to monitor resident.
[2025-04-16] MEDS: FLUDROCORTISONE ACETATE 0.1 MG TABLET GT (20:44)
[2025-04-16] MEDS: LOSARTAN 100 MG TABLET GT (20:45)
[2025-04-16] MEDS: SENNOSIDES 8.6 MG TABLET 17.2 MG GT (20:45)
--- NOTE | 2025-04-16 21:32 | ESPR_ITS ---
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 (2) Epilepsy, unspecified, not intractable, without status epilepticus: Status: Chronic (3) Essential (primary) hypertension: Status: Chronic (4) Tracheostomy status: Status: Chronic (5) Gastrostomy status: Status: Chronic (6) Chronic hyponatremia: Status: Chronic (7) Chronic respiratory failure requiring continuous mechanical ventilation through tracheostomy: Status: Chronic SUBJECTIVE Fever:: none GI:: none Shortness of Breath:: none GI:: no complaints Pain:: none OBJECTIVE Most recent vital signs: Last Vital Signs Temp 96.8 F 04/16/25 17:47 Pulse 77 04/16/25 20:45 Resp 30 H 04/16/25 19:05 BP 146/89 H 04/16/25 20:45 Pulse Ox 98 04/16/25 19:05 O2 Del Method Mechanical Ventilation 04/15/25 17:29 O2 Flow Rate 8 04/15/25 05:50 FiO2 35 04/16/25 19:05 Neurological:: alert Speech:: nods head, mouths words (sometimes) and appropriate Answers questions:: sometimes Respiratory:: shallow breathing (Ventilator dependant) Cardiovascular: RRR Abdomen: soft and nontender Extremities:: deformities Decubitus:: none Tracheostomy:: to ventilator Feeding per:: G tube Complaints:: none ASSESSMENT & PLAN Assessment: Treated for HAP and UTI in acute Hospital and transferred to [facility] [id number] on a Ventilator. Pt fully dependent for long winder tender care. No pain issues, and remains comfortable. Ice chips for some oral gratification tried with success without any cough or aspiration and continued.Remains fully dependent for care. interacts some and mostly happy. Lond standing tendency for Hyponatremia and was Started on Fludrocortisone 0.1mgs daily with good response. Antibiotics Zosyn , continued as C & S. Close monitoring with labs . VSS Family made her code status as Comfort measures/ no heroics/ no transfers to acute care/DNR Fairly stable Plan: All treatment reviewed and continued.
[2025-04-17] VITALS: BP 142/78; PULSE 91; RESP 30; TEMP 36.6
[2025-04-17 00:42] VITALS: PULSE 91; RESP 30; O2SAT 99
[2025-04-17 05:19] VITALS: BP 151/83; PULSE 89; RESP 30; TEMP 36.3; O2SAT 96
[2025-04-17] MEDS: GABAPENTIN 300 MG CAPSULE GT ×3 (05:19→21:31)
[2025-04-17] MEDS: QUETIAPINE FUMARATE 25 MG TABLET GT ×2 (08:59→20:34)
[2025-04-17] MEDS: SOD PHOS DI, MONO/K PHOS MONO 250 MG TABLET GT (09:00)
[2025-04-17] MEDS: ESOMEPRAZOLE 40 MG GT (09:00)
[2025-04-17] MEDS: MULTIVITAMIN W MINERALS 1 EACH TABLET GT (09:00)
[2025-04-17] MEDS: SODIUM CHLORIDE TAB 1,000 MG TABLET.SOL 1000 MG GT ×2 (09:00→20:37)
[2025-04-17] MEDS: ALBUTEROL NEB 2.5 MG/3 ML VIAL.NEB INH (10:47)
[2025-04-17 11:48] VITALS: BP 137/81; PULSE 102; RESP 31; TEMP 36.3
[2025-04-17 18:32] VITALS: PULSE 88; RESP 30; O2SAT 98
[2025-04-17 20:36] VITALS: BP 140/85; PULSE 93
[2025-04-17] MEDS: LOSARTAN 100 MG TABLET GT (20:36)
[2025-04-17] MEDS: FLUDROCORTISONE ACETATE 0.1 MG TABLET GT (20:36)
[2025-04-17] MEDS: SENNOSIDES 8.6 MG TABLET 17.2 MG GT (20:37)
[2025-04-18] VITALS (9 sets, daily range): BP systolic 116–163; BP diastolic 79–81; PULSE 80–105; RESP 30–42; TEMP 36.3–36.6; O2SAT 96–99
[2025-04-18] MEDS: GABAPENTIN 300 MG CAPSULE GT ×3 (05:32→21:08)
[2025-04-18] MEDS: ALBUTEROL NEB 2.5 MG/3 ML VIAL.NEB INH ×2 (07:17→12:02)
[2025-04-18] MEDS: ESOMEPRAZOLE 40 MG GT (08:00)
[2025-04-18] MEDS: QUETIAPINE FUMARATE 25 MG TABLET GT ×2 (08:00→20:20)
[2025-04-18] MEDS: SODIUM CHLORIDE TAB 1,000 MG TABLET.SOL 1000 MG GT ×2 (08:00→20:20)
[2025-04-18] MEDS: ACETAMINOPHEN 325 MG TABLET 650 MG GT (08:00)
[2025-04-18] MEDS: MULTIVITAMIN W MINERALS 1 EACH TABLET GT (08:00)
[2025-04-18] MEDS: SOD PHOS DI, MONO/K PHOS MONO 250 MG TABLET GT (08:00)
--- NOTE | 2025-04-18 19:12 | PC.NURSE ---
Resident S/P ATB for PNA. No adverse reactions noted. Afebrile. Continues to have elevated RR and labored breathing. RT gave multiple prn treatments. Ativan given with little effect. Continue to observe.
[2025-04-18] MEDS: FLUDROCORTISONE ACETATE 0.1 MG TABLET GT (20:19)
[2025-04-18] MEDS: LOSARTAN 100 MG TABLET GT (20:19)
[2025-04-18] MEDS: SENNOSIDES 8.6 MG TABLET 17.2 MG GT (20:20)
[2025-04-19] VITALS (10 sets, daily range): BP systolic 108–152; BP diastolic 58–84; PULSE 69–95; RESP 20–32; TEMP 36.2–36.6; O2SAT 97–98
[2025-04-19] MEDS: ACETAMINOPHEN 325 MG TABLET 650 MG GT ×2 (04:23→17:00)
[2025-04-19] MEDS: GABAPENTIN 300 MG CAPSULE GT ×3 (05:21→21:24)
[2025-04-19] MEDS: ESOMEPRAZOLE 40 MG GT (08:28)
[2025-04-19] MEDS: SOD PHOS DI, MONO/K PHOS MONO 250 MG TABLET GT (08:29)
[2025-04-19] MEDS: MULTIVITAMIN W MINERALS 1 EACH TABLET GT (08:29)
[2025-04-19] MEDS: QUETIAPINE FUMARATE 25 MG TABLET GT ×2 (08:29→20:25)
[2025-04-19] MEDS: SODIUM CHLORIDE TAB 1,000 MG TABLET.SOL 1000 MG GT ×2 (08:30→20:26)
[2025-04-19] MEDS: LOSARTAN 100 MG TABLET GT (20:25)
[2025-04-19] MEDS: FLUDROCORTISONE ACETATE 0.1 MG TABLET GT (20:25)
[2025-04-19] MEDS: SENNOSIDES 8.6 MG TABLET 17.2 MG GT (20:26)
[2025-04-20] VITALS (8 sets, daily range): BP systolic 111–138; BP diastolic 73–79; PULSE 72–109; RESP 30–32; TEMP 36.2–36.3; O2SAT 95–100
[2025-04-20] MEDS: GABAPENTIN 300 MG CAPSULE GT ×3 (05:16→21:16)
[2025-04-20] MEDS: ALBUTEROL NEB 2.5 MG/3 ML VIAL.NEB INH (06:57)
[2025-04-20] MEDS: SODIUM CHLORIDE TAB 1,000 MG TABLET.SOL 1000 MG GT ×2 (08:42→20:44)
[2025-04-20] MEDS: MULTIVITAMIN W MINERALS 1 EACH TABLET GT (08:42)
[2025-04-20] MEDS: SOD PHOS DI, MONO/K PHOS MONO 250 MG TABLET GT (08:42)
[2025-04-20] MEDS: QUETIAPINE FUMARATE 25 MG TABLET GT ×2 (08:42→20:44)
[2025-04-20] MEDS: ESOMEPRAZOLE 40 MG GT (08:42)
[2025-04-20] MEDS: MAGNESIUM HYDROXIDE 30 ML ORAL SUSP ML GT (08:58)
[2025-04-20] MEDS: FLUDROCORTISONE ACETATE 0.1 MG TABLET GT (20:43)
[2025-04-20] MEDS: LOSARTAN 100 MG TABLET GT (20:43)
[2025-04-20] MEDS: SENNOSIDES 8.6 MG TABLET 17.2 MG GT (20:44)
[2025-04-21] VITALS (9 sets, daily range): BP systolic 113–151; BP diastolic 70–83; PULSE 65–98; RESP 30–35; TEMP 36.1–36.5; O2SAT 95–99
[2025-04-21] MEDS: GABAPENTIN 300 MG CAPSULE GT ×3 (05:08→21:11)
--- NOTE | 2025-04-21 07:46 | PD.SAPROG ---
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 (2) Epilepsy, unspecified, not intractable, without status epilepticus: Status: Chronic (3) Essential (primary) hypertension: Status: Chronic (4) Tracheostomy status: Status: Chronic (5) Gastrostomy status: Status: Chronic (6) Chronic hyponatremia: Status: Chronic (7) Chronic respiratory failure requiring continuous mechanical ventilation through tracheostomy: Status: Chronic SUBJECTIVE Fever:: none GI:: none Shortness of Breath:: none GI:: no complaints Pain:: none OBJECTIVE Most recent vital signs: Last Vital Signs Temp 978.5 F H 04/21/25 06:00 Pulse 87 04/21/25 07:09 Resp 34 H 04/21/25 07:09 BP 151/83 H 04/21/25 06:00 Pulse Ox 99 04/21/25 07:09 O2 Del Method Mechanical Ventilation 04/19/25 17:47 O2 Flow Rate 8 04/19/25 09:00 FiO2 35 04/21/25 07:09 Neurological:: alert Speech:: nods head, mouths words (sometimes) and appropriate Answers questions:: sometimes Respiratory:: shallow breathing (Ventilator dependant) Cardiovascular: RRR Abdomen: soft and nontender Extremities:: deformities Decubitus:: none Tracheostomy:: to ventilator Feeding per:: G tube Complaints:: none ASSESSMENT & PLAN Assessment: Treated for HAP and UTI in acute Hospital and transferred to [facility] [id number] on a Ventilator. Pt fully dependent for [facility] care. No pain issues, and remains comfortable. Ice chips for some oral gratification tried with success without any cough or aspiration and continued.Remains fully dependent for care. interacts some and mostly happy. Lond standing tendency for Hyponatremia and was Started on Fludrocortisone 0.1mgs daily with good response. Antibiotics Zosyn , continued as C & S. Close monitoring with labs . VSS Family made her code status as Comfort measures/ no heroics/ no transfers to acute care/DNR Fairly stable Plan: All treatment reviewed and continued.
[2025-04-21] MEDS: QUETIAPINE FUMARATE 25 MG TABLET GT ×2 (08:16→21:09)
[2025-04-21] MEDS: ESOMEPRAZOLE 40 MG GT (08:16)
[2025-04-21] MEDS: SODIUM CHLORIDE TAB 1,000 MG TABLET.SOL 1000 MG GT ×2 (08:17→21:11)
[2025-04-21] MEDS: MULTIVITAMIN W MINERALS 1 EACH TABLET GT (08:17)
[2025-04-21] MEDS: SOD PHOS DI, MONO/K PHOS MONO 250 MG TABLET GT (08:17)
[2025-04-21] MEDS: FLUDROCORTISONE ACETATE 0.1 MG TABLET GT (21:10)
[2025-04-21] MEDS: LOSARTAN 100 MG TABLET GT (21:10)
[2025-04-21] MEDS: SENNOSIDES 8.6 MG TABLET 17.2 MG GT (21:11)
[2025-04-22] VITALS (9 sets, daily range): BP systolic 93–131; BP diastolic 60–76; PULSE 61–88; RESP 16–33; TEMP 36.1–36.5; O2SAT 95–99
[2025-04-22] MEDS: GABAPENTIN 300 MG CAPSULE GT ×2 (05:09→14:09)
--- NOTE | 2025-04-22 06:28 | PC.NURSE ---
Resident had not voided since 2199-bladder scan done with 702ml- in and out catheter inserted with 500 ml of dark tim colored urine out-resident is currently on a fluid restriction of 500ml QS.
--- NOTE | 2025-04-22 06:30 | PC.NURSE ---
no urine output for 6 hours,, bladder scan administered 702 ml noted. Straight cathed with 500 ml results. Urine clear yellow with no foul odor noted.
[2025-04-22] MEDS: QUETIAPINE FUMARATE 25 MG TABLET GT ×2 (08:49→20:48)
[2025-04-22] MEDS: ESOMEPRAZOLE 40 MG GT (08:50)
[2025-04-22] MEDS: MULTIVITAMIN W MINERALS 1 EACH TABLET GT (08:51)
[2025-04-22] MEDS: SODIUM CHLORIDE TAB 1,000 MG TABLET.SOL 1000 MG GT ×2 (08:51→20:49)
[2025-04-22] MEDS: ACETAMINOPHEN 325 MG TABLET 650 MG GT (08:51)
[2025-04-22] MEDS: SOD PHOS DI, MONO/K PHOS MONO 250 MG TABLET GT (08:51)
--- NOTE | 2025-04-22 11:30 | PC.SS ---
Resident remains on blow by with trach in place and mitten to right hand, having episodes of SOB. Readmitted to Telemetry on .
--- NOTE | 2025-04-22 18:19 | PC.NURSE ---
Resident had not voided since 0600, when film processing shift supervisor nurse did an in&out cauterization. Around 1400 typewriters functional tester did a bladder scan on her and resident only had 245ml and notified RN. Then around 1350 did another bladder scan and she had 359ml. Notified RN, RN ask me to insert a awad cath. Around 1600 awad cath was inserted and she had 440ml output. Awad cath size 16french with a 10ml balloon. She's also has generalized edema showing and all extremities are elevated with pillows. Call light within reach.
[2025-04-22] MEDS: LOSARTAN 100 MG TABLET GT (20:48)
[2025-04-22] MEDS: FLUDROCORTISONE ACETATE 0.1 MG TABLET GT (20:48)
[2025-04-22] MEDS: SENNOSIDES 8.6 MG TABLET 17.2 MG GT (20:49)
[2025-04-23] VITALS (11 sets, daily range): BP systolic 104–135; BP diastolic 67–81; PULSE 66–111; RESP 32–35; TEMP 36.1–36.6; O2SAT 97–99
[2025-04-23] MEDS: QUETIAPINE FUMARATE 25 MG TABLET GT ×2 (08:00→20:01)
[2025-04-23] MEDS: MULTIVITAMIN W MINERALS 1 EACH TABLET GT (08:00)
[2025-04-23] MEDS: SOD PHOS DI, MONO/K PHOS MONO 250 MG TABLET GT (08:00)
[2025-04-23] MEDS: ESOMEPRAZOLE 40 MG GT (08:00)
[2025-04-23] MEDS: SODIUM CHLORIDE TAB 1,000 MG TABLET.SOL 1000 MG GT ×2 (08:00→20:05)
[2025-04-23] MEDS: ALBUTEROL NEB 2.5 MG/3 ML VIAL.NEB INH ×2 (08:48→19:55)
[2025-04-23] MEDS: FLUDROCORTISONE ACETATE 0.1 MG TABLET GT (20:04)
[2025-04-23] MEDS: LOSARTAN 100 MG TABLET GT (20:04)
[2025-04-23] MEDS: ACETAMINOPHEN 325 MG TABLET 650 MG GT (20:05)
[2025-04-23] MEDS: SENNOSIDES 8.6 MG TABLET 17.2 MG GT (20:05)
[2025-04-23] MEDS: GABAPENTIN 300 MG CAPSULE GT (21:15)
[2025-04-24] VITALS (12 sets, daily range): BP systolic 90–131; BP diastolic 59–73; PULSE 72–100; RESP 28–33; TEMP 36.3–36.6; O2SAT 97–98
[2025-04-24] MEDS: ALBUTEROL NEB 2.5 MG/3 ML VIAL.NEB INH (02:58)
[2025-04-24] MEDS: SOD PHOS DI, MONO/K PHOS MONO 250 MG TABLET GT (09:04)
[2025-04-24] MEDS: GABAPENTIN 300 MG CAPSULE GT ×2 (09:04→20:39)
[2025-04-24] MEDS: QUETIAPINE FUMARATE 25 MG TABLET GT ×2 (09:04→20:38)
[2025-04-24] MEDS: MULTIVITAMIN W MINERALS 1 EACH TABLET GT (09:04)
[2025-04-24] MEDS: SODIUM CHLORIDE TAB 1,000 MG TABLET.SOL 1000 MG GT ×2 (09:04→20:40)
[2025-04-24] MEDS: ESOMEPRAZOLE 40 MG GT (09:04)
--- NOTE | 2025-04-24 14:24 | PC.SS ---
Resident remains on blow by with trach in place and mitten to right hand, no further episodes of SOB.
[2025-04-24] MEDS: FLUDROCORTISONE ACETATE 0.1 MG TABLET GT (20:38)
[2025-04-24] MEDS: SENNOSIDES 8.6 MG TABLET 17.2 MG GT (20:39)
[2025-04-24] MEDS: LOSARTAN 100 MG TABLET GT (20:39)
--- NOTE | 2025-04-24 22:02 | PD.SAPROG ---
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 (2) Epilepsy, unspecified, not intractable, without status epilepticus: Status: Chronic (3) Essential (primary) hypertension: Status: Chronic (4) Tracheostomy status: Status: Chronic (5) Gastrostomy status: Status: Chronic (6) Chronic hyponatremia: Status: Chronic (7) Chronic respiratory failure requiring continuous mechanical ventilation through tracheostomy: Status: Chronic SUBJECTIVE Fever:: none GI:: none Shortness of Breath:: none GI:: no complaints Pain:: none OBJECTIVE Most recent vital signs: Last Vital Signs Temp 97.3 F 04/24/25 16:50 Pulse 72 04/24/25 20:39 Resp 32 H 04/24/25 17:09 BP 131/73 H 04/24/25 20:39 Pulse Ox 98 04/24/25 17:09 O2 Del Method Mechanical Ventilation 04/24/25 16:50 O2 Flow Rate 8 04/24/25 16:50 FiO2 35 04/24/25 17:09 Neurological:: alert Speech:: nods head, mouths words (sometimes) and appropriate Answers questions:: sometimes Respiratory:: shallow breathing (Ventilator dependant) Cardiovascular: RRR Abdomen: soft and nontender Extremities:: deformities Decubitus:: none Tracheostomy:: to ventilator Feeding per:: G tube Complaints:: none ASSESSMENT & PLAN Assessment: Treated for HAP and UTI in acute Hospital and transferred to [facility] -7-83 on a Ventilator. 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 No pain issues, and remains comfortable. Ice chips for some oral gratification tried with success without any cough or aspiration and continued.Remains fully dependent for care. interacts some and mostly happy. Lond standing tendency for Hyponatremia and was Started on Fludrocortisone 0.1mgs daily with good response. Antibiotics Zosyn , continued as C & S. Close monitoring with labs . VSS Family made her code status as Comfort measures/ no heroics/ no transfers to acute care/DNR Fairly stable Plan: All treatment reviewed and continued.
[2025-04-25] VITALS (9 sets, daily range): BP systolic 93–138; BP diastolic 55–77; PULSE 49–101; RESP 30–33; TEMP 36.2–36.4; O2SAT 96–100
[2025-04-25] MEDS: ALBUTEROL NEB 2.5 MG/3 ML VIAL.NEB INH (06:40)
[2025-04-25] MEDS: QUETIAPINE FUMARATE 25 MG TABLET GT ×2 (08:09→20:25)
[2025-04-25] MEDS: GABAPENTIN 300 MG CAPSULE GT ×2 (08:10→20:25)
[2025-04-25] MEDS: SOD PHOS DI, MONO/K PHOS MONO 250 MG TABLET GT (08:10)
[2025-04-25] MEDS: ESOMEPRAZOLE 40 MG GT (08:10)
[2025-04-25] MEDS: MULTIVITAMIN W MINERALS 1 EACH TABLET GT (08:10)
[2025-04-25] MEDS: SODIUM CHLORIDE TAB 1,000 MG TABLET.SOL 1000 MG GT ×2 (08:11→20:24)
[2025-04-25] MEDS: FLUDROCORTISONE ACETATE 0.1 MG TABLET GT (20:25)
[2025-04-25] MEDS: SENNOSIDES 8.6 MG TABLET 17.2 MG GT (20:25)
[2025-04-25] MEDS: LOSARTAN 100 MG TABLET GT (20:25)
[2025-04-25] MEDS: MAGNESIUM HYDROXIDE 30 ML ORAL SUSP ML GT (21:30)
[2025-04-26] VITALS (9 sets, daily range): BP systolic 91–125; BP diastolic 61–78; PULSE 66–89; RESP 31–38; TEMP 35.9–36.4; O2SAT 83–99
[2025-04-26] MEDS: BISACODYL 10 MG SUPP.RECT PR (07:58)
[2025-04-26] MEDS: ESOMEPRAZOLE 40 MG GT (09:50)
[2025-04-26] MEDS: GABAPENTIN 300 MG CAPSULE GT ×2 (09:50→21:06)
[2025-04-26] MEDS: MULTIVITAMIN W MINERALS 1 EACH TABLET GT (09:50)
[2025-04-26] MEDS: SOD PHOS DI, MONO/K PHOS MONO 250 MG TABLET GT (09:50)
[2025-04-26] MEDS: QUETIAPINE FUMARATE 25 MG TABLET GT ×2 (09:50→21:05)
[2025-04-26] MEDS: SODIUM CHLORIDE TAB 1,000 MG TABLET.SOL 1000 MG GT ×2 (09:50→21:08)
--- NOTE | 2025-04-26 13:37 | PC.NURSE ---
. made aware resident V/s was declining, and resident was flaccid, and saturation rate was 82% in 35%FiO2, BP was 103/63 at 1200 and then 70/47 at 1330 HR 62 and resp.28, MD. order to extra 500ml NS flush x1 250ml now then onother 250ml after 1hr. and order to increase the FiO2 between 50-70%, order noted and carried out, Daughter Homa was notified, we will continue to monitor.
--- NOTE | 2025-04-26 15:18 | PC.RT ---
Per MD Gonsalez I titrated O2 to 60% for comfort measures
--- NOTE | 2025-04-26 19:23 | PC.NURSE ---
Resident was strated on Augmentin PGT, no s/s of adverse affect noted and no elevated temperature. Will continue to monitor and call light within reach.
[2025-04-26] MEDS: FLUDROCORTISONE ACETATE 0.1 MG TABLET GT (21:06)
[2025-04-26] MEDS: SENNOSIDES 8.6 MG TABLET 17.2 MG GT (21:08)
[2025-04-27] VITALS (7 sets, daily range): BP systolic 55–84; BP diastolic 30–57; PULSE 83–96; RESP 30–33; TEMP 36.2–36.9; O2SAT 90–97
[2025-04-27] MEDS: ONDANSETRON HCL 4 MG TABLET GT (01:30)
--- NOTE | 2025-04-27 03:57 | PC.NURSE ---
This nurse checked residents residual upon the start of her shift. residual noted to be 260 ml. Feeding was held fro 30 mins and residual rechecked with no change. feeding was then held an additional 30mins. Residual noted to be 240 ml. feeding continues to be held as residual continues to be 240m or more every hour. Residual noted to be dark rust like color with very foul odor. Charge nurse aware.
[2025-04-27] MEDS: ESOMEPRAZOLE 40 MG GT (08:24)
[2025-04-27] MEDS: QUETIAPINE FUMARATE 25 MG TABLET GT (08:24)
[2025-04-27] MEDS: SOD PHOS DI, MONO/K PHOS MONO 250 MG TABLET GT (08:25)
[2025-04-27] MEDS: SODIUM CHLORIDE TAB 1,000 MG TABLET.SOL 1000 MG GT (08:25)
[2025-04-27] MEDS: GABAPENTIN 300 MG CAPSULE GT (08:25)
[2025-04-27] MEDS: MULTIVITAMIN W MINERALS 1 EACH TABLET GT (08:25)
--- NOTE | 2025-04-27 14:12 | PC.SS ---
Resident at 1354 on 04/27/25.
--- NOTE | 2025-04-27 14:50 | PC.NURSE ---
lae entry regarding resident passing away while in comfort measures.Resident at 1350. Pronounced at 1354 by Rey Duvall. Family was notified. Dr. Gonsalez was notified, Donor network notified. Awaiting for daughter to arrived to hospital to make a decision to where her mother will be transferred.
--- NOTE | 2025-04-27 18:44 | PC.NURSE ---
REsident remains released to [facility] in [place]. Family at bedside. inventory done. resident is missing abelino sosa very important to family.
--- NOTE | 2025-05-11 13:55 | ESDS_ITS ---
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 HOSPITAL/SUBACUTE COURSE AND RELEVANT DATA: The patient, Orestes Yepez, was first admitted to the [facility] on ____ , and during her long stay in the subacute, her general status for the most part remained stable with her underlying conditions being chronic with prognostically no significant improvement in her status of being fully dependent. On few occasions, she had acute decompensations involving aspiration pneumonias and urinary tract infections, as well as episodes of agitated behavior necessitating admissions to the acute hospital. For the most part, her underlying conditions being chronic and multiple organ compromised, her general course remained slowly progressive deteriorating in general health. Until for the recent few months, her condition had become more labile with repeated needs for transfer to acute care with recurrent decompensations/hypoxia/febrile status. Patient was recently again treated for aspiration pneumonia with antibiotics and had been on ventilator dependence. At which point the family changed her code status to do not resuscitate with comfort measures only. On 04/27/2025, the patient quietly and was pronounced by the nursing supervisor hot dip tinning as per protocol. Family was apprised of her status throughout her stay here. She was ensured every support and comfort throughout her stay. DT: 11:43:57 TT: 12:42:00 Ref: [id number] - TID: [id number]
== END | disposition expired | DRG 207 ==
PROVIDERS: Admitting Provider Specialist; Visit Provider Specialist
DX: J96.10 Chronic respiratory failure, unspecified whether with hypoxia or hypercapnia (principal); J69.0 Pneumonitis due to inhalation of food and vomit; L03.211 Cellulitis of face; E87.1 Hypo-osmolality and hyponatremia; Z99.11 Dependence on respirator [ventilator] status; I69.20 Unspecified sequelae of other nontraumatic intracranial hemorrhage; I10 Essential (primary) hypertension; G40.909 Epilepsy, unspecified, not intractable, without status epilepticus; K21.9 Gastro-esophageal reflux disease without esophagitis; Z99.81 Dependence on supplemental oxygen; Z93.0 Tracheostomy status; Z93.1 Gastrostomy status; Z51.5 Encounter for palliative care; Z66 Do not resuscitate
CPT/HCPCS: 36415; 71045; 80048; 80053; 80069; 81001; 84145; 84300; 85025; 87040; 87070; 87077; 87086; 87186; 87205; 87502; 87811; 94002; 94003; 94004; 94640; 94762; J0696; J7050